=== PATIENT | male | born 1970 | race Caucasian/White ===

== ENCOUNTER 2023-11-27 10:58 | Emergency (ER) | payer MEDICARE, SELFPAY ==
[2023-11-27] VITALS (29 sets, daily range): BP systolic 122–177; BP diastolic 58–81; PULSE 65–75; RESP 14–22; TEMP 36.8; O2SAT 96–99
--- NOTE | ~2023-11-27 | XR_ITS ---
EXAMINATION: XR chest 2V DATE: 11/27/2023 11:29 INDICATION: Weakness. End-stage renal disease. TECHNIQUE: frontal and lateral views of the chest were obtained. COMPARISON: None FINDINGS: Pulmonary vascular congestion without courtney pulmonary edema. No other airspace opacities, pleural eff usion or pneumothorax. The cardiomediastinal silhouette is within normal limits for AP technique. The re are bridging osteophytes at multiple levels consistent with diffuse idiopathic skeletal hyperostos is (DISH). IMPRESSION: 1. Pulmonary vascular congestion but without courtney pulmonary edema or other acute cardiopulmonary dis ease. Reviewed, dictated and finalized at location A. IMPRESSION: 1. Pulmonary vascular congestion but without courtney pulmonary edema or other acu te cardiopulmonary disease.
--- NOTE | ~2023-11-27 | CT_ITS ---
Non-contrast Head CT History: Dizziness, near syncope Technique: Axial non-contrast imaging of the brain was performed. Dose reduction technique was used on this scan by utilizing automated exposure control and iterative reconstruction technique. The dose -length product (DLP) was 756.67 mGy-cm. Findings: There is no evidence of intracranial hemorrhage, mass lesion, or acute infarct. Brain par enchyma appears normal. The ventricles and subarachnoid spaces are normal in size. The calvarium ap pears normal. The visualized paranasal sinuses and mastoid air cells are clear. Impression: No significant abnormality seen. Reviewed, dictated and finalized at location . Impression: No significant abnormality seen.
--- NOTE | 2023-11-27 11:03 | ECG_ITS ---
Test Date: 2023-11-27 11:05:29 Measurements Intervals [place] Rate: 65 P: 34 FL: 191 QRS: -27 QRSD: 105 T: 3 QT: 477 QTc: 498 Interpretive Statements SINUS RHYTHM BORDERLINE LEFT AXIS DEVIATION [QRS AXIS < -20] NONSPECIFIC T-WAVE ABNORMALITY PROLONGED QT INTERVAL No previous ECG available for comparison Electronically Signed On 11-28-2023 15:50:00 CDT by Angel Brown M.D.
[2023-11-27 11:32] LABS: Basophils Absolute Auto 0.1 K/mm3 (0.0-0.1); Basophils Percent Auto 0.7 % (0.2-1.2); Eosinophils Absolute Auto 0.2 K/mm3 (0-0.3); Eosinophils Percent Auto 2.2 % (0-4.4); Hematocrit 33.6 % (42.0-52.0); Immature Granulocyte Absolute 0.04 K/mm3 (0.00-0.031); Immature Granulocyte Percent A 0.6 % (0-0.5); Lymphocytes Absolute Auto 1.72 K/mm3 (0.9-3.2); Mean Corpuscular HGB Conc 32.7 g/dl (32-36); Mean Corpuscular Volume 100.9 fl (80-100); Mean Platelet Volume 9.7 fl (7.4-10.4); Monocytes Absolute Auto 0.4 K/mm3 (0.1-0.6); Monocytes Percent Auto 6.1 % (2.6-8.5); Neutrophils Absolute Auto 4.8 K/mm3 (1.3-6.7); Neutrophils Percent Auto 66.4 % (45.5-73.1); Platelet Count Result 199 k/mm3 (150-375); Red Blood Count 3.33 M/mm3 (4.6-6.20); White Blood Count 7.2 K/mm3 (4.5-10.0)
--- NOTE | 2023-11-27 11:35 | ED.WEAKNESS ---
HPI - Weakness General Chief complaint: Weakness Stated complaint: weakness Time Seen by Provider: 11/27/23 11:13 Source: patient Mode of arrival: EMS Limitations: no limitations History of Present Illness HPI Narrative: Patient is a 52-year-old male who presents to the ED via EMS with report of weakness. Patient has a history of end-stage renal disease on hemodialysis Tuesdays, , Saturdays. He has not missed any recent appointments. His chief revenue officer is Dr. Ng. He reports today he was on his way to an eye doctor appointment when he began feeling dizzy/lightheaded. He then states symptoms became worse when he stepped out of the car and he felt near syncopal at that time. He then sat back down in the car. He did not fully lose consciousness. Reported having mild difficulty breathing at that time. He was then brought here for further evaluation. Patient does reported frequent history of positional lightheadedness. He states he often becomes lightheaded he tries to stand up. He reports he has been wheelchair-bound for the last 2 years due to this. He also notes his chief revenue officer advised him to double his carvedilol dose on non-dialysis days and he has done this over the last 2 days. Patient states he feels generally weak currently. Denies focal weakness or numbness, chest pain, shortness of breath currently, nausea, vomiting, abdominal pain, vision changes, headache , recent cough or cold symptoms, lower extremity pain. Related Data Allergies Allergy/AdvReac Type Severity Reaction Status Date / Time amoxicillin Allergy Unknown Verified 11/27/23 11:13 Review of Systems Review of Systems: CONSTITUTIONAL: Denies fever, chills, or sweats. CARDIOVASCULAR: Denies chest pain. RESPIRATORY: See HPI. GASTROINTESTINAL: Denies abdominal pain, nausea, vomiting NEUROLOGIC: See HPI. All systems reviewed & are unremarkable except as noted in HPI and below Exam Narrative: GENERAL: chronically ill-appearing, appears older than stated age, obese with BMI of 31.6, non-toxic, in no acute distress. HEAD: Normocephalic, atraumatic. EYES: PERRL/EOMI, conjunctiva clear. ENT: Diffuse dental decay. RESPIRATORY: Airway patent, respirations nonlabored. Clear to auscultation bilaterally, no rales, rhonchi, wheezing. No significant focal lung sounds. CARDIOVASCULAR: Regular rate and rhythm without murmurs, rubs, or gallops. MUSCULOSKELETAL: Moves all extremities. No gross deformities. No lower extremity edema. SKIN: Warm, dry, normal color. NEURO: A&O X3. Speech clear. Cranial nerves II-XII grossly intact. Steady gait. No ataxic movements. No focal deficits. PSYCHIATRIC: Appropriate mood and affect. Normal interaction. Course Vital Signs Vital signs: Vital Signs Temperature 98.2 F 11/27/23 10:51 Pulse Rate 68 11/27/23 10:51 Respiratory Rate 15 11/27/23 10:51 Blood Pressure 147/72 H 11/27/23 10:51 Pulse Oximetry 97 11/27/23 10:51 Oxygen Delivery Room Air 11/27/23 10:51 Temperature 98.2 F 11/27/23 10:51 Pulse Rate 73 11/27/23 13:46 Respiratory Rate 20 11/27/23 13:46 Blood Pressure 148/70 H 11/27/23 13:46 Pulse Oximetry 97 11/27/23 13:46 Oxygen Delivery Room Air 11/27/23 10:51 MDM - Weakness MDM Narrative Medical decision making narrative: patient presented to ED with positional lightheadedness, near syncopal episode. Patient reports history of similar episodes over the last several years. Also reports was advised this week to double his carvedilol dose on non dialysis days. Could be causing orthostatic hypotension. Patient's vital signs are stable upon arrival. He is in no acute distress. He is neurologically intact. No focal deficits are appreciated on exam. Orthostatic vital signs were evaluated and very minimal drop in systolic blood pressure. Did not drop greater than 10 units. Patient did not report feeling lightheaded during testing. Given small amount of flui
[2023-11-27 11:46] LABS: Alanine Aminotransferase 18 U/L (6-50); Albumin Level 4.1 g/dL (3.5-5.1); Alkaline Phosphatase 62 U/L (38-126); Anion Gap 9 mmol/L (4-12); Aspartate Amino Transferase 22 U/L (17-59); Bilirubin,Total 0.7 mg/dL (0.2-1.3); Blood Urea Nitrogen 38 mg/dL (9-20); Calcium 9.4 mg/dL (8.4-10.2); Carbon Dioxide 31 mmol/L (22-30); Chloride 100 mmol/L (98-107); Estimated CRCL calculation 28 ml/min; Estimated Glomerular Filt Rate 16; Glucose 206 mg/dL (65-110); Potassium 3.4 mmol/L (3.4-5.0); Sodium 140 mmol/L (137-145)
[2023-11-27 12:16] LABS: Appearance Urine Clear (Clear); Bacteria Urine None Seen /hpf; Bilirubin Urine Negative (Negative); Blood Urine Negative (Negative); Color Urine Yellow (Yellow); Glucose Urine UA 2+ mg/dL (Negative); Ketones Urine Trace mg/dL (Negative); Leukocyte Esterase Ur Negative LEU/UL (Negative); Need Manual Microscopic Reviewed; Nitrate Urine Negative (Negative); Protein Urine 4+ mg/dL (Negative); RBC Urine 0-2 /hpf (0-2); Specific Grav Ur 1.019 (1.001-1.035); Squamous Epithelial Cell Urine None Seen /hpf (Few); WBC Urine 0-5 /hpf (0-3); pH Urine 7.5 (5.0-9.0)
[2023-11-27 12:25] LABS: Add Urine Microscopic? YES
[2023-11-27] MEDS: SODIUM CHLORIDE 0.9% IV 500 ML 999 ML IV CONT (12:58)
[2023-11-27 13:44] LABS: Influenza A QL RT-PCR Negative (Negative); Influenza B QL RT-PCR Negative (Negative); RSV RNA, RT-PCR Negative (Negative); SARS-CoV-2 RNA PCR Negative (Negative)
[2023-11-27 14:49] LABS: Magnesium 1.9 mg/dL (1.6-2.3)
[2023-11-27 15:11] LABS: NT Pro B Type Natriuretic Pept 4120 pg/mL (19.9-100)
== END 2023-11-27 18:09 | disposition home or self-care (01) ==
PROVIDERS: Emergency Medicine; Emergency Provider Physician Assistant
DX: R42 Dizziness and giddiness (principal); N18.6 End stage renal disease; Z99.2 Dependence on renal dialysis; R06.02 Shortness of breath; Z20.822 Contact with and (suspected) exposure to COVID-19; R94.31 Abnormal electrocardiogram [ECG] [EKG]; Z99.3 Dependence on wheelchair; Z79.899 Other long term (current) drug therapy; Z79.01 Long term (current) use of anticoagulants; R09.89 Other specified symptoms and signs involving the circulatory and respiratory systems
CPT/HCPCS: 36415; 70450; 71046; 80053; 81001; 83735; 83880; 85025; 87637; 93005; 96360; 99284; J7040

== ENCOUNTER 2024-02-24 12:08 | Emergency (ER) | payer MEDICARE, MEDICAID, SELFPAY ==
[2024-02-24] VITALS (25 sets, daily range): BP systolic 88–142; BP diastolic 51–76; PULSE 64–75; RESP 12–25; TEMP 35.3–36.9; O2SAT 94–99
--- NOTE | ~2024-02-24 | XR_ITS ---
EXAMINATION: XR chest 1V portable DATE: 02/24/2024 13:03 INDICATION: Shortness of breath. TECHNIQUE: A single frontal view of the chest was obtained. COMPARISON: Chest 2 views 11/27/2023 FINDINGS: There is no pneumonia, pleural effusion, or pneumothorax. The heart size is normal. IMPRESSION: 1. No acute cardiopulmonary disease. Reviewed, dictated and finalized at location A.
--- NOTE | 2024-02-24 12:35 | ED.SOB ---
HPI - SOB/Dyspnea General Chief Complaint: Shortness of Breath/Dyspnea Stated Complaint: dialysis Time Seen by Provider: 02/24/24 12:15 Source: patient Mode of arrival: ambulatory Limitations: no limitations History of Present Illness HPI Narrative: 53-year-old male history of ex smoking, chronic bronchitis, hypertension, diabetes mellitus, atrial fibrillation on Xarelto,end-stage renal disease on hemodialysis got an extra dose of dialysis with removal of 4.5 L at [facility] in [place]. After the dialysis the patient felt -- lightheaded and dizzy -- blurred vision -- shortness of breath -- blood pressure was noted to be 71/50. No focal neuro deficit. No chest pain or palpitation . No nausea/vomiting /abdominal pain /diarrhea. MD elicited complaint: shortness of breath Pertinent past history: COPD Onset (ago): hour(s) ( Started 1 hour ago) Timing: constant Severity: severe Exacerbating factors: nothing Relieving factors: nothing Known history of: COPD and diabetes Associated symptoms: dizziness and lightheadedness Treatment prior to arrival: none Related Data Allergies Allergy/AdvReac Type Severity Reaction Status Date / Time amoxicillin Allergy Unknown Verified 11/27/23 11:13 Review of Systems Review of Systems: All systems reviewed & are unremarkable except as noted in HPI and below Constitutional: Constitutional: Reports as per HPI and Reports no additional constitutional complaints Eyes: Eyes: Reports as per HPI Comments: blurred vision ENT: Reports system reviewed and no additional complaints, except as documented and Reports as per HPI Cardiovascular: Cardiovascular: Reports as per HPI and Reports no additional cardiovascular complaints Respiratory: Respiratory: Reports as per HPI, Reports no additional respiratory complaints and Reports dyspnea Gastrointestinal: Gastrointestinal: Reports as per HPI and Reports no additional gastrointestinal complaints Genitourinary: Genitourinary: Reports no additional male genitourinary complaints and Reports as per HPI Musculoskeletal: Musculoskeletal: Reports no additional musculoskeletal complaints and Reports as per HPI Integumentary/Breasts: Skin/Breast: Reports system reviewed and no additional complaints, except as docu and Reports as per HPI Neurologic: Reports system reviewed and no additional complaints, except as documented, Reports as per HPI and Reports dizziness Psychiatric: Psychiatric: Reports no additional psychiatric complaints and Reports as per HPI Endocrine: Endocrine: Reports no additional endocrine complaints and Reports as per HPI Hematologic/Lymphatic: Hematologic/Lymphatic: Reports no additional hematologic/lymphatic complaints and Reports as per HPI Allergic/Immunologic: Allergic/Immunologic: Reports no additional allergic/immunologic complaints and Reports as per HPI [facility] Past Medical History Medical History (Updated 02/24/24 @ 16:15 by Germain Mcfadden MD) Atrial fibrillation AV fistula Diabetes mellitus ESRD (end stage renal disease) Hypertension Social History Social History (Updated 02/24/24 @ 12:49 by Germain Mcfadden MD) Social History: ex-smoker Exam Narrative: blood pressure 71/50 Const: General: ill appearing Orientation/consciousness: patient oriented x3 HENMT: Head: normal to inspection Ears: external ears normal Face/Nose/Sinus: Normal external nose present Face and sinus: normal facial exam Mouth: Yes Normal oral and palatal mucosa present Throat: posterior oropharynx normal Eyes: Conjunctivae: conjunctivae normal Pupils: Equal, round and reactive pupils present EOM: EOMs intact bilaterally Direct Ophthalmoscopy: no photophobia Neck: Neck: normal visual inspection, no lymphadenopathy and no meningeal signs Chest: Chest palpation & inspection: normal inspection of the chest Resp: Effort & Inspection: normal respiratory effort and labored Auscultation: clear
--- NOTE | 2024-02-24 12:43 | ECG_ITS ---
Test Date: 2024-02-24 12:53:57 Measurements Intervals [place] Rate: 64 P: 65 [place]: 196 QRS: 52 QRSD: 106 T: 58 QT: 453 QTc: 468 Interpretive Statements SINUS RHYTHM NORMAL ECG Compared to ECG 11/27/2023 11:05:29 PROLONGED QT INTERVAL RESOLVED Electronically Signed On 02-24-2024 12:56:35 CDT by Bethel Parker D.O.
[2024-02-24] MEDS: SODIUM CHLORIDE 0.9% IV 500 ML 999 ML IV CONT (12:55)
[2024-02-24 13:05] LABS: Basophils Absolute Auto 0.08 K/mm3 (0.00-0.10); Eosinophils Absolute Auto 0.19 K/mm3 (0.02-0.50); Eosinophils Percent Auto 2.4 % (1.0-6.0); Hematocrit 37.8 % (40.0-54.0); Hemoglobin 12.4 g/dL (14.0-18.0); Immature Granulocyte Absolute 0.12 K/mm3 (0.00-0.00); Immature Granulocyte Percent A 1.5 % (0.0-0.0); Lymphocytes Absolute Auto 1.28 K/mm3 (1.10-4.50); Lymphocytes Percent Auto 16.1 % (18.0-42.0); Mean Corpuscular HGB Conc 32.8 g/dL (32-36); Mean Corpuscular Hemoglobin 33.1 pg (27.0-31.0); Mean Corpuscular Volume 100.8 fL (78.0-102.0); Monocytes Percent Auto 6.3 % (2.0-11.0); Neutrophils Percent Auto 72.7 % (50.0-70.0); Platelet Count Result 183 K/mm3 (150-420); Red Blood Count 3.75 M/mm3 (4.70-6.10); Red Cell Distribution Width 12.9 % (11.6-14.4)
[2024-02-24 13:27] LABS: Lactic Acid Reflex 1.8 mmol/L (0.4-2.0)
[2024-02-24 13:31] LABS: Alanine Aminotransferase 12 U/L (16-63); Albumin Level 4.1 g/dL (3.4-5.0); Alkaline Phosphatase 58 U/L (46-116); Anion Gap 10 mmol/L (4-12); Aspartate Amino Transferase 15 U/L (15-37); Bilirubin,Total 0.5 mg/dL (0.00-1.00); Blood Urea Nitrogen 55 mg/dL (7-18); Calcium 10.1 mg/dL (8.5-10.1); Carbon Dioxide 30 mmol/L (21-32); Chloride 95 mmol/L (98-108); Estimated CRCL calculation 16 ml/min; Estimated Glomerular Filt Rate 8; Glucose 303 mg/dL (70-99); Lipase 118 U/L (16-77); NT Pro B Type Natriuretic Pept 1994 pg/mL (0-125); Osmolality Calculated 306 mOsm/kg (285-295); Potassium 4.5 mmol/L (3.5-5.1); Sodium 135 mmol/L (136-145); Total Protein 9.1 g/dL (6.4-8.2)
[2024-02-24 13:32] LABS: Thyroid Stimulating Hormone 2.12 uIU/mL (0.36-3.74); Troponin I 8.7 ng/L (0.00-60.4)
[2024-02-24 14:31] LABS: Add Urine Microscopic? YES; Appearance Urine Clear (Clear); Bilirubin Urine Negative (Negative); Blood Urine Negative (Negative); Color Urine Yellow (Yellow); Glucose Urine UA 2+ (Negative); Ketones Urine Negative (Negative); Leukocyte Esterase Ur Negative LEU/UL (Negative); Nitrate Urine Negative (Negative); Protein Urine 3+ (Negative); Specific Grav Ur 1.025 (1.010-1.020); Urobilinogen Urine Negative mg/dL (0.2-1.0)
[2024-02-24 14:32] LABS: Bacteria Urine 1+ /hpf; RBC Urine None seen /hpf (0-2); Squamous Epithelial Cell Urine Few /hpf (Few); WBC Urine None seen /hpf (0-3)
--- NOTE | 2024-02-24 15:30 | PC.NURSE ---
pt watching tv, food tray ordered. awaiting arrival. pt denies any needs at this time. call callahan in reach
--- NOTE | 2024-02-24 16:17 | PC.NURSE ---
pt requested to call [facility] for transport home, pt has no other transportation. awaiting arrival.
== END 2024-02-24 16:42 | disposition home or self-care (01) ==
PROVIDERS: Emergency Provider Internal Medicine Critical Care Medicine; PCP Family Medicine
DX: I12.0 Hypertensive chronic kidney disease with stage 5 chronic kidney disease or end stage renal disease (principal); N18.6 End stage renal disease; E11.22 Type 2 diabetes mellitus with diabetic chronic kidney disease; I95.3 Hypotension of hemodialysis; Z99.2 Dependence on renal dialysis; I48.91 Unspecified atrial fibrillation; Z87.891 Personal history of nicotine dependence
CPT/HCPCS: 36415; 71045; 80053; 81001; 83605; 83690; 83880; 84443; 84484; 85025; 93005; 99284; J7040

== ENCOUNTER 2024-06-15 22:05 | Emergency (ER) | payer MEDICARE, MEDICAID, SELFPAY ==
--- NOTE | ~2024-06-15 | XR_ITS ---
Portable chest x-ray Comparison: 02/24/2024 Clinical History: Shortness of breath Findings: There is mild central venous congestive change, without focal consolidation or pleural eff usion. Cardiomediastinal silhouette is stable. Bones and soft tissues are unremarkable. Impression: Mild central pulmonary venous congestive change. Reviewed, dictated and finalized at [facility]. MAN Impression: Mild central pulmonary venous congestive change.
[2024-06-15 22:05] VITALS: BP 213/100; PULSE 88; RESP 20; TEMP 37; O2SAT 96
--- NOTE | 2024-06-15 22:21 | ECG_ITS ---
Test Date: 2024-06-15 22:46:11 Measurements Intervals [place] Rate: 79 P: 60 NE: 196 QRS: -47 QRSD: 103 T: 66 QT: 409 QTc: 471 Interpretive Statements SINUS RHYTHM POSSIBLE LEFT ATRIAL ENLARGEMENT [-0.1mV P-WAVE IN V1/V2] Compared to ECG 02/24/2024 12:53:57 NO SIGNIFICANT CHANGES Electronically Signed On 06-17-2024 12:27:33 [employer] by Scot Sahni M.D.
--- NOTE | 2024-06-15 22:24 | ED.GENADULT ---
HPI - General Adult General Chief complaint: Shortness of Breath/Dyspnea Stated complaint: high bp/headache Time Seen by Provider: 06/15/24 22:21 Source: patient Mode of arrival: EMS Limitations: no limitations History of Present Illness HPI narrative: Patient is a 53-year-old male end-stage renal disease / hemodialysis Thursday soon here for elevated blood pressure and headache and retention of fluid. He had dialysis 3 days ago and with the holiday this week, he will have dialysis tomorrow morning. Onset (ago): day(s) (1) Location: abdomen ( Swelling per patient) Radiation: non-radiation Severity: mild Severity scale (1-10): 3 Quality: other ( fullness) Pain Consistency: constant Relieving factors: other ( dialysis resolves fluid retention) Exacerbating factors: other ( missing hemodialysis this week due to the holiday) Associated symptoms: denies other symptoms Treatments prior to arrival: none Related Data Allergies Allergy/AdvReac Type Severity Reaction Status Date / Time amoxicillin Allergy Unknown Verified 11/27/23 11:13 Review of Systems Review of Systems: All systems reviewed & are unremarkable except as noted in HPI and below Constitutional: Constitutional: Reports no additional constitutional complaints Eyes: Eyes: Reports no additional eye complaints ENT: Reports system reviewed and no additional complaints, except as documented Cardiovascular: Cardiovascular: Reports no additional cardiovascular complaints Respiratory: Respiratory: Reports no additional respiratory complaints Gastrointestinal: Gastrointestinal: Reports no additional gastrointestinal complaints Genitourinary: Genitourinary: Reports no additional male genitourinary complaints Musculoskeletal: Musculoskeletal: Reports no additional musculoskeletal complaints Integumentary/Breasts: Skin/Breast: Reports system reviewed and no additional complaints, except as docu Neurologic: Reports system reviewed and no additional complaints, except as documented Psychiatric: Psychiatric: Reports no additional psychiatric complaints Endocrine: Endocrine: Reports no additional endocrine complaints Hematologic/Lymphatic: Hematologic/Lymphatic: Reports no additional hematologic/lymphatic complaints Allergic/Immunologic: Allergic/Immunologic: Reports no additional allergic/immunologic complaints [facility] Past Medical History Medical History AV fistula Atrial fibrillation ESRD (end stage renal disease) Diabetes mellitus Hypertension Social History Social History Social History: ex-smoker Exam Const: General: healthy appearing Nutritional Appearance: well nourished Orientation/consciousness: patient oriented x3 Limitations: no limitations HENMT: Head: normal to inspection Ears: external ears normal Face/Nose/Sinus: Normal external nose present Eyes: Conjunctivae: conjunctivae normal Pupils: Equal, round and reactive pupils present EOM: EOMs intact bilaterally Neck: Neck: normal visual inspection Chest: Chest palpation & inspection: normal inspection of the chest Resp: Effort & Inspection: normal respiratory effort and not labored Auscultation: clear to auscultation bilaterally and no crackles Cardio: Rate: regular rate Rhythm: regular rhythm Heart sounds: no murmurs GI: Inspection: non-distended GI Palp: Yes Soft to palpation and No Tenderness to palpation present (GI) Auscultation: normal bowel sounds : General: Yes bladder normal to palpation Back/Spine/Pelvis: Back: no CVA tenderness Skin: General skin exam: normal color Rashes: no rashes Wounds: no wounds Neuro: General: patient oriented x3 Cranial nerves: Yes Nystagmus not present Speech: normal speech Gait exam (Neuro): Normal gait present Extrem: General: normal to inspection Psych: Mental Status: mental status grossly normal Affect: normal affect Attitude: cooperative Medical Decision Making [facility] Narrative Medical decision making narrative: patient is a 53-year-old male with hemodialysis here with some swelling and headache with elevated blood pressure. We will do a nephrology workup at this time. Patient's blood pressure came down on its own without medication. Headache was still present but not significant. I discussed the case with the director communications at [facility] and they said go ahead and just let him go home and get a.m. planned dialysis. His labs were stable and vitals were stable. He is okay and stable to go for morning dialysis and not emergent dialysis. Lab Data Lab results reviewed: Yes I reviewed the patient's lab results. 06/15/24 22:27 06/15/24 22:27 Labs: Lab Results 06/15/24 Range/Units 22:27 WBC 6.7 (4.8-10.8) K/mm3 RBC 3.17 L (4.70-6.10) M/mm3 Hgb 10.3 L (14.0-18.0) g/dL Hct 32.1 L (40.0-54.0) % MCV 101.3 (78.0-102.0) fL MCH 32.5 H (27.0-31.0) pg MCHC 32.1 (32-36) g/dL RDW 13.2 (11.6-14.4) % Plt Count 184 (150-420) K/mm3 MPV 9.7 (8.7-11.0) fl Immature Gran % (Auto) 0.9 H (0.0-0.0) % Neut % (Auto) 63.9 (50.0-70.0) % Lymph % (Auto) 26.1 (18.0-42.0) % Grady % (Auto) 5.4 (2.0-11.0) % Eos % (Auto) 2.7 (1.0-6.0) % Baso % (Auto) 1.0 (0.0-1.0) % Lymph # (Auto) 1.74 (1.10-4.50) K/mm3 Grady # (Auto) 0.36 (0.10-0.90) K/mm3 Eos # (Auto) 0.18 (0.02-0.50) K/mm3 Baso # (Auto) 0.07 (0.00-0.10) K/mm3 Abs Immat Gran (auto) 0.06 H (0.00-0.00) K/mm3 Absolute Neuts (auto) 4.26 (1.70-7.20) K/mm3 Absolute Nucleated RBC 0.00 (0.00-0.00) K/mm3 Nucleated RBC % 0.0 (0-0.0) % Sodium 140 (136-145) mmol/L Potassium 4.0 (3.5-5.1) mmol/L Chloride 103 (98-108) mmol/L Carbon Dioxide 29 (21-32) mmol/L Anion Gap 8 (4-12) mmol/L BUN 42 H (7-18) mg/dL Creatinine 5.19 H* (0.70-1.30) mg/dL Estim Creat Clear Calc Not Reportable Estimated GFR 12 L (59 - ) Glucose 147 H (70-99) mg/dL Calculated Osmolality 303 H (285-295) mOsm/kg Lactic Acid 0.8 (0.4-2.0) mmol/L Calcium 8.9 (8.5-10.1) mg/dL Phosphorus 5.1 H (2.6-4.7) mg/dL Magnesium 1.6 L (1.8-2.4) mg/dL Total Bilirubin 0.3 (0.00-1.00) mg/dL AST < 10 L (15-37) U/L ALT 13 L (16-63) U/L Alkaline Phosphatase 69 (46-116) U/L Troponin I 22.3 (0.00-60.4) ng/L Total Protein 7.3 (6.4-8.2) g/dL Albumin 3.3 L (3.4-5.0) g/dL Imaging Data Attestation: I personally reviewed and interpreted this imaging study as follows: Radiologist's impression: Chest x-ray shows some pulmonary edema mildly Discharge Plan Discharge Clinical Impression: End-stage renal disease (ESRD), Fluid retention Patient Disposition: Home, Self-Care Condition: Stable Instructions: End Stage Kidney Disease (ED) Additional Instructions: please follow-up with the primary doctor in the next week. Follow-up with nephrology as planned. Make sure to get dialysis done 1st thing in the morning. Patient Language: [place] Follow-up/Referrals: Hans,Mery Tsai MD [Primary Care Provider] - Time of Disposition: 01:21
[2024-06-15 22:40] LABS: Basophils Absolute Auto 0.07 K/mm3 (0.00-0.10); Eosinophils Absolute Auto 0.18 K/mm3 (0.02-0.50); Eosinophils Percent Auto 2.7 % (1.0-6.0); Hematocrit 32.1 % (40.0-54.0); Hemoglobin 10.3 g/dL (14.0-18.0); Immature Granulocyte Absolute 0.06 K/mm3 (0.00-0.00); Immature Granulocyte Percent A 0.9 % (0.0-0.0); Lymphocytes Absolute Auto 1.74 K/mm3 (1.10-4.50); Lymphocytes Percent Auto 26.1 % (18.0-42.0); Mean Corpuscular HGB Conc 32.1 g/dL (32-36); Mean Corpuscular Hemoglobin 32.5 pg (27.0-31.0); Mean Corpuscular Volume 101.3 fL (78.0-102.0); Mean Platelet Volume 9.7 fl (8.7-11.0); Monocytes Absolute Auto 0.36 K/mm3 (0.10-0.90); Monocytes Percent Auto 5.4 % (2.0-11.0); Neutrophils Absolute Auto 4.26 K/mm3 (1.70-7.20); Neutrophils Percent Auto 63.9 % (50.0-70.0); Platelet Count Result 184 K/mm3 (150-420); Red Blood Count 3.17 M/mm3 (4.70-6.10); Red Cell Distribution Width 13.2 % (11.6-14.4); White Blood Count 6.7 K/mm3 (4.8-10.8)
[2024-06-15 23:00] LABS: Lactic Acid Reflex 0.8 mmol/L (0.4-2.0)
[2024-06-15 23:02] LABS: Alanine Aminotransferase 13 U/L (16-63); Albumin Level 3.3 g/dL (3.4-5.0); Alkaline Phosphatase 69 U/L (46-116); Anion Gap 8 mmol/L (4-12); Aspartate Amino Transferase < 10 U/L (15-37); Bilirubin,Total 0.3 mg/dL (0.00-1.00); Blood Urea Nitrogen 42 mg/dL (7-18); Calcium 8.9 mg/dL (8.5-10.1); Carbon Dioxide 29 mmol/L (21-32); Chloride 103 mmol/L (98-108); Estimated Glomerular Filt Rate 12; Glucose 147 mg/dL (70-99); Osmolality Calculated 303 mOsm/kg (285-295); Phosphorus 5.1 mg/dL (2.6-4.7); Sodium 140 mmol/L (136-145); Total Protein 7.3 g/dL (6.4-8.2)
[2024-06-15 23:13] LABS: Magnesium 1.6 mg/dL (1.8-2.4); Troponin I 22.3 ng/L (0.00-60.4)
[2024-06-16] VITALS: PULSE 85
[2024-06-16] MEDS: HYDROcodone/acetaminophen (*CRX) 5-325 MG TABLET 1 TAB PO (01:41)
[2024-06-16 02:07] VITALS: BP 144/76; PULSE 74; RESP 18; O2SAT 96
--- OUTSIDE RECORDS SUMMARY | 2024-06-22 17:58 | XMS_ITS ---
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 If you have left the hospital and have any questions, please contact your primary care physician. Reason For Referral No Data Found Plan of Treatment No Data Found Encounters Encounter Diagnosis Start Date Code Code Sys tem Unsteadiness on feet 02/10/2024 SNOMED- CT Personal Care Team Section Performer Name Performer Role Active Date Inactive Da te
--- OUTSIDE RECORDS SUMMARY | 2024-06-22 17:59 | XMS_ITS | Encounter Summary ---
Author Organization [facility] Address [address] [place] [address]. [place] [address] [place] [address] Care Team Providers Care Big Data Solutions Architect Name Role Phone Mery Maxwell MD Primary Care Provider [phone] Encounter Details Date Type Department Care Team (Late st Contact Info) Description 04/04/2024 Orders Only [facility] [address] [place], [place] [id number] Mery Maxwell MD [address] [place] [phone] Social History Tobacco Use Types Packs/Day Years Used Date Smoking Tobacco: Former Cigarettes 1 15 Smokeless Tobacco: Never Alcohol Use Standard Drinks/Week Comments Not Currently 0 (1 standard drink = 0.6 oz pur e alcohol) [facility] Utilities Answer Date Recorded In the past 12 months has [facility] EDMdesigner, gas, oil, or water [employer] threatened to shut off services in your home? No 03/28/2024 Humiliation, Afraid, Rape, and Kick questionnair e Answer Date Recorded Within the last year, have y ou been afraid of your partner or ex-partner? No 03/28/2024 Within the last year, have y ou been humiliated or emotionally abused in other ways by your partner or ex-partner? No Within the last year, have y ou been kicked, hit, slapped, or otherwise physically hurt by your partner or ex-partner? No 03/28/2024 Within the last year, have y ou been raped or forced to have any kind of sexual activity by your partner or ex-partner? No 03/28/2024 Overall Financial Resource Strain (CARDIA) Answe r Date Recorded How hard is it for you to pa y for the very basics like food, housing, medical care, and heating? Not very hard 03/28/2024 Hunger Vital Sign Answer Date Recorded Within the past 12 months, y ou worried that your food would run out before you got the money to buy more. Never true 03/28/20 Within the past 12 months, t he food you bought just didn't last and you didn't have money to get more. Never true 03/28/2024 PRAPARE - Transportation Answer Date Re corded In the past 12 months, has l ack of transportation kept you from medical appointments or from getting medications? No 03/15 In the past 12 months, has l ack of transportation kept you from meetings, work, or from getting things needed for daily living? No 03/28/2024 Housing Stability Vital Sign Answer Kelvin e Recorded In the last 12 months, was t here a time when you were not able to pay the mortgage or rent on time? Patient declined 09/01/19 24 In the last 12 months, how many places have you lived? 1 09/01/2023 In the last 12 months, was t here a time when you did not have a steady place to sleep or slept in a assisted (including now)? Patient declined 09/01/2023 Housing Stability Vital Sign Answer Kelvin e Recorded In the last 12 months, was t here a time when you were not able to pay the mortgage or rent on time? No 03/28/2024 In the past 12 months, how m any times have you moved where you were living? 2 03/28/2024 At any time in the past 12 m [facility], were you homeless or living in a assisted (including now)? No 03/28/2024 Sex and Gender Information Value Date Recorded Sex Assigned at Not on file Legal Sex Male 6:24 PM CDT Gender Identity Not on file Sexual Orientation Not on file documented as of this encounter Functional Status * Are you deaf or do you have serious difficulty hearing Answer Date of Assessment Author Status No 03/28/2024 5:25 PM CDT Christina Mercado Nu rsrohit Casserole Preparer II Active * Are you blind or do you have serious difficulty seeing, even when wearing glasses? Answer Date of Assessment Author Status No 03/28/2024 5:25 PM CDT Christina Mercado Nu rse Casserole Preparer II Active * Do you have serious difficulty walking or climbing stairs? Answer Date of Assessment Author Status Yes 03/28/2024 5:25 PM CDT Christina MercadoSachi rse Casserole Preparer II Active * Do you have difficulty dressing or bathing? Answer Date of Assessment Author Status Yes 03/28/2024 5:25 PM CDT Christina Mercado Sachi rse Casserole Preparer II Active * Because of a physical, mental, or emotional condition, do you have difficulty doing errands alone such as visiting a doctor's office or shopping? Answer Date of Assessment Author Status Yes 03/28/2024 5:25 PM CDT Christina Mercado Nu rse Casserole Preparer II Active documented as of this encounter Mental Status * Because of a physical, mental, or emotional condition, do you have serious difficulty concentrating, remembering, or making decisions? Answer Entry Date Author Status No 03/28/2024 5:25 PM CDT Christina Mercado Sachi rse Casserole Preparer II Active documented in this encounter Plan of Treatment Upcoming Encounters Date Type Department Care Team (Late st Contact Info) Description 07/20/2024 10:30 AM ASSISTANT PROFESSOR OF SPANISH Office Visit [facility] [place] [phone] [place] [address] documented as of this encounter Goals Goal Patient Goal Type Associated Problems Recent Progress Patient-Stated? 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 RN documented as of this encounter Results * (ABNORMAL) IRON SATURATION PNL (FE/TIBC/SAT) (04/04/2024 11:30 AM CDT) [facility] IRON 85 65 - 175 MCG/DL 04/04/2024 12:50 PM CDT [facility] IRON BINDING CAPACITY 226(L) 250 - 450 MCG/DL 04/04/2024 12:50 PM CDT [facility] IRON SATURATION 38 % 12:50 PM CDT [facility] Comment:REFERENCE RANGE NOT ESTABLISHED 04/04/2024 11:3 0 AM CDT Mery Maxwell MD LABORATORY Final Resu lt Performing Organization Address City/[facility]/ZIP Co de Phone Number [facility] [address] [place] [address], * VITAMIN D, 25 OH (04/04/2024 11:30 AM CDT) VITAMIN D 25 HYDROXY TOTAL S/P/B 27.0 20.0 - 50.0 NG/ML 04/05/2024 12:22 PM CDT [facility] Comment: <10 ng/mL (Severe deficiency) 10 TO 19 ng/mL (Mild to Moderate deficiency) 20 TO 50 ng/mL (Optimum levels) 51 TO 80 ng/mL (Increased risk of hypercalciuria) >80 ng/mL (Toxicity possible) 04/04/2024 11:3 0 AM CDT us Mery Maxwell MD LABORATORY Final Resu lt Performing Organization Address [facility]/ZIP Co de Phone Number [facility] [address] [place] [address], [place] [phone] * (ABNORMAL) COMPREHENSIVE METABOLIC PANEL (04/04/2024 11:30 AM CDT) SODIUM S/P/B 138 136 - 145 MMOL/L 04/04/2024 12:52 PM CDT [facility] POTASSIUM S/P/B 4.1 3.5 - 5.1 MMOL/L 04/04/2024 12:52 PM CDT [facility] CHLORIDE S/P/B 97(L) 98 - 107 MMOL/L 04/04/2024 12:52 PM [facility] CO2 30.0 21.0 - 32.0 MMOL/L 04/04/2024 12:52 PM [facility] GLUCOSE 202(H) 70 - 99 MG/DL 04/04/2024 12:52 PM [facility] Comment: FASTING GLUCOSE 100 TO 125 MG/DL IS CONSISTENT WITH IMPAIRED FASTING GLUCOSE. FASTING GLUCOSE >125 MG/DL IS CONSISTENT WITH DIABETES. RANDOM GLUCOSE >200 MG/DL WITH HYPERGLYCEMIC SYMPTOMS IS CONSISTENT WITH DIABETES. PER ADA GUIDELINES BUN 63(H) 6 - 24 MG/DL 04/04/2024 12:52 PM T [facility] CREATININE S/P/B 7.62(H) 0.70 - 1.30 MG/DL 04/04/2024 12:52 PM [facility] CALCIUM S/P/B 10.1 8.4 - 10.5 MG/DL 04/04/2024 12:52 PM [facility] BILIRUBIN TOTAL S/P/B 0.6 0.2 - 1.0 MG/DL 04/04/2024 12:52 PM T [facility] Comment: THIS ASSAY IS NOT RECOMMENDED FOR PATIENTS UNDERGOING TREATMENT WITH ELTROMBOPAG DUE TO THE POTENTIAL FOR FALSELY ELEVATED RESULTS. ALKALINE PHOSPHATASE S/P/B 61 45 - 115 U/L 04/04/2024 12:52 PM [facility] AST 11(L) 15 - 37 U/L 04/04/2024 12:52 PM [facility] ALT 13(L) 16 - 63 U/L 04/04/2024 12:52 PM T [facility] TOTAL PROTEIN S/P/B 8.7(H) 6.4 - 8.2 G/DL 04/04/2024 12:52 PM T [facility] ALBUMIN S/P/B 3.8 3.4 - 5.0 G/DL 04/04/2024 12:52 PM [facility] ANION GAP 11.0 5.0 - 15.0 MMOL/L 04/04/2024 12:52 PM T [facility] OSMOLALITY (CALC) 310 MOSM/KG 10/21/2 024 12:52 PM CDT [facility] Comment:REFERENCE RANGE NOT ESTABLISHED GFR ESTIMATE 8(L) >89 ML/MIN/1. 73 M2 04/04/2024 12:52 PM CDT [facility] GFR NOTES GFR REFERENCE S: 04/04/2024 12:52 PM CDT [facility] Comment: THE ESTIMATED GFR IS CALCULATED USING THE 2020 CKD-EPI EQUATION. THE FOLLOWING CATEGORIES FOR GRADING RENAL FUNCTION ARE RECOMMENDED BY THE INTERNATIONAL SOCIETY OF NEPHROLOGY (KDIGO 2012 CLINICAL PRACTICE GUIDELINE). G1,NORMAL OR HIGH: >89 ml/min/1.73 m2 G2,MILDLY DECREASED: 60-89 ml/min/1.73 m2 G3A,MILDLY TO MODERATELY DECREASED: 45-59 ml/min/1.73 m2 G3B,MODERATELY TO SEVERELY DECREASED: 30-44 ml/min/1.73 m2 G4,SEVERELY DECREASED: 15-29 ml/min/1.73 m2 G5,KIDNEY FAILURE: <15 ml/min/1.73 m2 04/04/2024 11:3 0 AM CDT us Mery Maxwell MD LABORATORY Final Resu lt [facility] [address] [place] [address], * (ABNORMAL) CBC W/DIFF AUTOMATED (04/04/2024 11:30 AM CDT) WBC 7.76 4.00 - 10.80 x10'3/uL 04/04/2024 12:34 PM CDT [facility] RBC 3.61(L) 4.50 - 6.10 x10'6/uL 04/04/2024 12:34 PM CDT [facility] HGB 11.9(L) 13.0 - 18.0 G/DL 04/04/2024 12:34 PM CDT [facility] HCT 36.5(L) 37.0 - 52.0 % 04/04/2024 12:34 PM CDT [facility] MCV 101.1(H) 78.0 - 100.0 FL 04/04/2024 12:34 PM CDT [facility] MCH 33.0(H) 27.0 - 31.0 PG 04/04/2024 12:34 PM CDT [facility] MCHC 32.6(L) 33.0 - 36.0 G/DL 04/04/2024 12:34 PM CDT [facility] RDW 13.5 11.5 - 14.5 % 04/04/2024 12:34 PM CDT [facility] PLT 201 150 - 350 x10'3/uL 04/04/2024 12:34 PM CDT [facility] MPV 10.1 7.4 - 10.4 FL 04/04/2024 12:34 PM CDT [facility] CBC COMMENT NORMAL REFERENCE RANGE NOT ESTABLISHED FOR THE PROPORTIONAL LEUKOCYTE DIFFERENTIAL. 04/04/2024 12:34 PM CDT [facility] NEUTROPHILS % 70.3 % 04/04/2024 12:34 PM CDT [facility] LYMPHOCYTES % 21.0 % 04/04/2024 12:34 PM CDT [facility] MONOCYTES % 5.3 % 04/04/2024 12:34 PM CDT [facility] EOSINOPHILS % 2.3 % 04/04/2024 12:34 PM CDT [facility] BASOPHILS % 0.6 % 04/04/2024 12:34 PM CDT [facility] IMMATURE GRANS % 0.5 % 04/04/20 12:34 PM CDT [facility] NRBC % 0.0 % 04/04/2024 12:34 PM CDT [facility] ABS. NEUTROPHILS 5.45 1.60 - 8.30 x10'3/uL 04/04/2024 12:34 PM CDT [facility] ABS. LYMPHOCYTES 1.63 0.80 - 4.70 x10'3/uL 04/04/2024 12:34 PM CDT [facility] ABS. MONOCYTES 0.41 0.00 - 1.50 x10'3/uL 04/04/2024 12:34 PM CDT [facility] ABS. EOSINOPHILS 0.18 0.00 - 0.40 x10'3/uL 04/04/2024 12:34 PM CDT [facility] ABS. BASOPHILS 0.05 0.00 - 0.20 x10'3/uL 04/04/2024 12:34 PM CDT [facility] ABS. IMMATURE GRANULOCYTES 0.04(H) 0.00 - 0.03 x10'3/uL 04/04/2024 12:34 PM CDT [facility] ABS. NUCLEATED RBC'S 0.00 0.00 - 0.01 x10'3/uL 04/04/2024 12:34 PM CDT [facility] 04/04/2024 11:3 0 AM CDT us Mery Maxwell MD LABORATORY Final Resu lt [facility] [address] [place] [address], documented in this encounter Visit Diagnoses Diagnosis CKD (chronic kidney disease)- Primary Chronic kidney disease, unspecified DM (diabetes mellitus) ([facility]) Type II or unspecified type diabetes mellitus without mention of complication, not stated as uncontrolled CHF (congestive heart failure) ([facility]) Congestive heart failure, unspecified documented in this encounter Care Teams Big Data Solutions Architect Relationship Specialty Start Date End Date Mery Maxwell MD [address] [place] [phone] PCP - General FAMILY PRACTICE 08/19/23 documented as of this encounter
--- OUTSIDE RECORDS SUMMARY | 2024-06-22 17:59 | XMS_ITS | Encounter Summary ---
Author Organization [facility] Address [address] [place] [address]. [place] [address] [place] [address] Care Team Providers Care Site Inspector Name Role Phone Mery Maxwell MD Primary Care Provider [phone] Encounter Details Date Type Department Care Team (Late st Contact Info) Description 04/04/2024 12:14 PM CDT - 04/04/2024 11:59 PM T Hospital Encounter [facility] [address] [place] [address] [place] [address] Mery Maxwell MD [address] [place] [address] [phone] Discharge Disposition: Home or Self Care (Routine Discharge) Social History Tobacco Use Types Packs/Day Years Used Date Smoking Tobacco: Former Cigarettes 1 15 Smokeless Tobacco: Never Alcohol Use Standard Drinks/Week Comments Not Currently 0 (1 standard drink = 0.6 oz pur e alcohol) [facility] Utilities Answer Date Recorded In the past 12 months has [employer], oil, or water [employer] threatened to shut off services in your [...] or rent on time? Patient declined 09/01/19 In the last 12 months, how many places have you lived? 1 09/01/2023 In the last 12 months, was t here a time when you did not have a steady place to sleep or slept in a senior care (including now)? Patient declined 09/01/2023 Housing Stability [...] any time in the past 12 m [facility], were you homeless or living in a senior care (including now)? No 03/28/2024 Sex and Gender Information Value Date Recorded Sex Assigned at Not on file Legal Sex Male 6:24 PM CDT Gender Identity Not on file Sexual Orientation Not on file documented as of this encounter Functional Status * Are you deaf or do you have serious difficulty hearing Answer Date of Assessment Author Status No 03/28/2024 5:25 PM [facility] * Are you blind or do you have serious difficulty seeing, even when wearing glasses? Answer Date of Assessment Author Status No 03/28/2024 5:25 PM [facility] Active * Do you have serious difficulty walking or climbing stairs? Answer Date of Assessment Author Status Yes 03/28/2024 5:25 PM [facility] Active * Do you have difficulty dressing or bathing? Answer Date of Assessment Author Status Yes 03/28/2024 5:25 PM [facility] Active * Because of a physical, mental, or emotional condition, do you have difficulty doing errands alone such as visiting a doctor's office or shopping? Answer Date of Assessment Author Status Yes 03/28/2024 5:25 PM [facility] Active documented as of this encounter Mental Status * Because of a physical, mental, or emotional condition, do you have serious difficulty concentrating, remembering, or making decisions? Answer Entry Date Author Status No 03/28/2024 5:25 PM [facility] Active documented in this encounter Medications at Time of Discharge allopurinol (ZYLOPRIM) 100 MG tablet Take 1 tablet (100 mg total) by mouth 2 (two) times daily. 08/03/2023 amiodarone (PACERONE) 200 MG tablet Take 0.5 tablets (100 mg total) by mouth daily. 30 tablet 11 02/03/2024 atorvastatin (LIPITOR) 20 MG tablet Take 1 tablet (20 mg total) by mouth daily. 08/03/2023 B-D UF III MINI PEN NEEDLES 31G X 5 MM [facility] 03/02/2024 BD VEO INSULIN SYRINGE U/F 31G X 15/64 0.5 ML [facility] 11/17/2023 Continuous Glucose Transmitter (DEXCOM G6 TRANSMITTER) [facility] 03/08/2024 ELIQUIS 5 MG tablet Take 1 tablet (5 mg total) by mouth 2 (two) times daily. 08/03/2023 gabapentin (NEURONTIN) 100 MG capsule Take 1 capsule (100 mg total) by mouth 2 (two) times a day. 08/03/2023 insulin lispro, 1 Unit Dial, (HUMALOG) 100 UNIT/ML injection (PEN) Inject 10 Units into the skin 3 (three) times daily before meals. 12/17/2022 LANTUS SOLOSTAR 100 UNIT/ML injection (PEN) Inject 17 Units into the skin nightly at bedtime. 08/03/2023 pantoprazole EC (PROTONIX) 40 MG tablet Take 1 tablet (40 mg total) by mouth 2 (two) times a day. 03/16/2024 sevelamer carbonate (RENVELA) 800 MG tablet Take 1 tablet (800 mg total) by mouth 3 (three) times daily with meals. 03/16/2024 traMADol (ULTRAM) 50 MG tabletIndications :Acute Pain < 7 Day Supply Indications: Acute Pain < 7 Day Supply 1-2 every 6 hours as needed for pain 20 tablet 08/19/2023 TRUE METRIX BLOOD GLUCOSE TEST test strip use 1 strip to check glucose three times daily 02/01/2024 benzonatate (TESSALON) 200 MG capsule Take 1 capsule (200 mg total) by mouth 3 (three) times daily for 10 days. 20 capsule 03/31/2024 04/10/2024 doxycycline hyclate (VIBRA-TABS) 100 MG tablet Take 1 tablet (100 mg total) by mouth 2 (two) times daily for 5 days. 10 tablet 03/31/2024 04/05/2024 documented as of this encounter Plan of Treatment Upcoming Encounters Date Type Department Care Team (Late st Contact Info) Description 07/20/2024 10:30 AM [employer] Office Visit [facility] [place] [address] Martha Ramirez, [facility]-[address] [id number] documented as of this encounter Goals Goal Patient Goal Type Associated Problems Recent Progress Patient-Stated? 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, RN documented as of this encounter Procedures Procedure Name Priority Date/Time Associated Diagnosis Comments IRON SAT PANEL (IRON,IBC,%SAT) Routine 04/04/2024 11:30 AM CDT CKD (chronic kidney disease) DM (diabetes mellitus) ([facility] HHS/HCC) CHF (congestive heart failure) ([facility] HHS/HCC) COMPREHENSIVE METABOLIC PANEL Routine 04/04/2024 11:30 AM CDT CKD (chronic kidney disease) DM (diabetes mellitus) ([facility] HHS/HCC) CHF (congestive heart failure) ([facility] HHS/HCC) CBC W/DIFF AUTOMATED Routine 04/04/2024 11:30 AM CDT CKD (chronic kidney disease) DM (diabetes mellitus) ([facility] HHS/HCC) CHF (congestive heart failure) ([facility] HHS/HCC) VITAMIN D, 25 [place] Routine 04/04/2024 11:3 0 AM CDT CKD (chronic kidney disease) DM (diabetes mellitus) ([facility] HHS/HCC) CHF (congestive heart failure) ([facility] HHS/HCC) documented in this encounter Results * (ABNORMAL) CBC W/DIFF AUTOMATED (04/04/2024 11:30 AM CDT) WBC 7.76 4.00 - 10.80 x10'3/uL 04/04/2024 12:34 PM CDT [facility] RBC 3.61(L) 4.50 - 6.10 x10'6/uL 04/04/2024 12:34 PM CDT [facility] HGB 11.9(L) 13.0 - 18.0 G/DL 04/04/2024 12:34 PM CDT [facility] HCT 36.5(L) 37.0 - 52.0 % 04/04/2024 12:34 PM CDT [facility] MCV 101.1(H) 78.0 - 100.0 FL 04/04/2024 12:34 PM CDT [facility] MCH 33.0(H) 27.0 - 31.0 PG 04/04/2024 12:34 PM CDT [facility] MCHC 32.6(L) 33.0 - 36.0 G/DL 04/04/2024 12:34 PM CDT [facility] RDW 13.5 11.5 - 14.5 % 04/04/2024 12:34 PM CDT [facility] PLT 201 150 - 350 x10'3/uL 04/04/2024 12:34 PM CDT [facility] MPV 10.1 7.4 - 10.4 FL 04/04/2024 12:34 PM CDT [facility] CBC COMMENT NORMAL REFERENCE RANGE NOT ESTABLISHED FOR THE PROPORTIONAL LEUKOCYTE DIFFERENTIAL. 04/04/2024 12:34 PM CDT [facility] NEUTROPHILS % 70.3 % 04/04/2024 12:34 PM CDT [facility] LYMPHOCYTES % 21.0 % 04/04/2024 12:34 PM CDT [facility] MONOCYTES % 5.3 % 04/04/2024 12:34 PM CDT [facility] EOSINOPHILS % 2.3 % 04/04/2024 12:34 PM CDT [facility] BASOPHILS % 0.6 % 04/04/2024 12:34 PM CDT [facility] IMMATURE GRANS % 0.5 % 04/04/20 12:34 PM CDT [facility] NRBC % 0.0 % 04/04/2024 12:34 PM CDT [facility] ABS. NEUTROPHILS 5.45 1.60 - 8.30 x10'3/uL 04/04/2024 12:34 PM CDT [facility] ABS. LYMPHOCYTES 1.63 0.80 - 4.70 x10'3/uL 04/04/2024 12:34 PM CDT [facility] ABS. MONOCYTES 0.41 0.00 - 1.50 x10'3/uL 04/04/2024 12:34 PM CDT [facility] ABS. EOSINOPHILS 0.18 0.00 - 0.40 x10'3/uL 04/04/2024 12:34 PM CDT [facility] ABS. BASOPHILS 0.05 0.00 - 0.20 x10'3/uL 04/04/2024 12:34 PM CDT [facility] ABS. IMMATURE GRANULOCYTES 0.04(H) 0.00 - 0.03 x10'3/uL 04/04/2024 12:34 PM CDT [facility] ABS. NUCLEATED RBC'S 0.00 0.00 - 0.01 x10'3/uL 04/04/2024 12:34 PM CDT [facility] 04/04/2024 11:3 0 AM CDT us Mery Maxwell MD LABORATORY Final Resu lt [facility] [address] [place] [address], * (ABNORMAL) COMPREHENSIVE METABOLIC PANEL (04/04/2024 11:30 AM CDT) SODIUM S/P/B 138 136 - 145 MMOL/L 04/04/2024 12:52 PM CDT [facility] POTASSIUM S/P/B 4.1 3.5 - 5.1 MMOL/L 04/04/2024 12:52 PM CDT [facility] CHLORIDE S/P/B 97(L) 98 - 107 MMOL/L 04/04/2024 12:52 PM CDT [facility] CO2 30.0 21.0 - 32.0 MMOL/L 04/04/2024 12:52 PM CDT [facility] GLUCOSE 202(H) 70 - 99 MG/DL 04/04/2024 12:52 PM CDT [facility] Comment: FASTING GLUCOSE 100 TO 125 MG/DL IS CONSISTENT WITH IMPAIRED FASTING GLUCOSE. FASTING GLUCOSE >125 MG/DL IS CONSISTENT WITH DIABETES. RANDOM GLUCOSE >200 MG/DL WITH HYPERGLYCEMIC SYMPTOMS IS CONSISTENT WITH DIABETES. PER ADA GUIDELINES BUN 63(H) 6 - 24 MG/DL 04/04/2024 12:52 PM CDT [facility] CREATININE S/P/B 7.62(H) 0.70 - 1.30 MG/DL 04/04/2024 12:52 PM T [facility] CALCIUM S/P/B 10.1 8.4 - 10.5 MG/DL 04/04/2024 12:52 PM [facility] BILIRUBIN TOTAL S/P/B 0.6 0.2 - 1.0 MG/DL 04/04/2024 12:52 PM T [facility] Comment: THIS ASSAY IS NOT RECOMMENDED FOR PATIENTS UNDERGOING TREATMENT WITH ELTROMBOPAG DUE TO THE POTENTIAL FOR FALSELY ELEVATED RESULTS. ALKALINE PHOSPHATASE S/P/B 61 45 - 115 U/L 04/04/2024 12:52 PM T [facility] AST 11(L) 15 - 37 U/L 04/04/2024 12:52 PM [facility] ALT 13(L) 16 - 63 U/L 04/04/2024 12:52 PM [facility] TOTAL PROTEIN S/P/B 8.7(H) 6.4 - 8.2 G/DL 04/04/2024 12:52 PM [facility] ALBUMIN S/P/B 3.8 3.4 - 5.0 G/DL 04/04/2024 12:52 PM [facility] ANION GAP 11.0 5.0 - 15.0 MMOL/L 04/04/2024 12:52 PM [facility] OSMOLALITY (CALC) 310 MOSM/KG 024 12:52 PM [facility] Comment:REFERENCE RANGE NOT ESTABLISHED GFR ESTIMATE 8(L) >89 ML/MIN/1. 73 M2 04/04/2024 12:52 PM [facility] GFR NOTES GFR REFERENCE S: 04/04/2024 12:52 PM [facility] Comment: THE ESTIMATED GFR IS [...] LABORATORY Final Resu lt Performing Organization Address City/[facility]/ZIP Co de Phone Number [facility] [address] [place] [address], [place] [phone] * VITAMIN D, 25 [place] (04/04/2024 11:30 AM CDT) VITAMIN D 25 HYDROXY TOTAL S/P/B 27.0 20.0 - 50.0 NG/ML 04/05/2024 12:22 PM CDT [facility] Comment: <10 ng/mL (Severe deficiency) 10 TO 19 ng/mL (Mild to Moderate deficiency) 20 TO 50 ng/mL (Optimum levels) 51 TO 80 ng/mL (Increased risk of hypercalciuria) >80 ng/mL (Toxicity possible) 04/04/2024 11:3 0 AM CDT us Mery Maxwell MD LABORATORY Final Resu lt [facility] [address] [place] [address], [place] [phone] * (ABNORMAL) IRON SATURATION PNL (FE/TIBC/SAT) (04/04/2024 11:30 AM CDT) IRON 85 65 - 175 MCG/DL 04/04/2024 12:50 PM CDT [facility] IRON BINDING CAPACITY 226(L) 250 - 450 MCG/DL 04/04/2024 12:50 PM CDT [facility] IRON SATURATION 38 % 12:50 PM CDT [facility] Comment:REFERENCE RANGE NOT ESTABLISHED 04/04/2024 11:3 0 AM CDT us Mery Maxwell MD LABORATORY Final Resu lt [facility] [address] [place] [address], documented in this encounter Visit Diagnoses Diagnosis CKD (chronic kidney disease) Chronic kidney disease, unspecified DM (diabetes mellitus) ([facility]) Type II or unspecified type diabetes mellitus without mention of complication, not stated as uncontrolled CHF (congestive heart failure) ([facility]) Congestive heart failure, unspecified documented in this encounter Care Teams Site Inspector Relationship Specialty Start Date End Date Mery Maxwell MD [address] [place] [phone] PCP - General FAMILY PRACTICE 08/19/23 documented as of this encounter
--- OUTSIDE RECORDS SUMMARY | 2024-06-22 17:59 | XMS_ITS ---
Author Organization [facility] ([facility]) Address [address] [place] [id number] Care Team Providers Care Independent Marketing Consultant Name Role Phone Unavailable Unavailable Unavailable Allergies, Adverse Reactions, Alerts Allergy Name Allergy Type Status Severity Reaction(s) Onset Date Inactive Date Treating Clinician Comments Amoxicillin Allergy Active Mild Allergy Hives 2021-06 21:15: 36 Medications Ordered Medication Name Filled Medication Name Start Date Stop Date Current Medication? Ordering Clinician Indication Dosage Frequency Signature (SIG) Comments Components Carvedilol 06-21 19:56: 27 Yes Number of Repeats Allowed: Frequency: Every Non-Dialys is Day ONS [facility] Formulary 2023-06 20:24: 28 Yes [id number] Number of Repeats Allowed: Frequency: Every Dialysis Treatment Mircera 2023-06 06:00: 00 Yes [id number] Number of Repeats Allowed: Frequency: JIGNESH dosing, every four weeks Lantus 2023-06 22:16: 37 Yes Number of Repeats Allowed: Frequency: Once a day, at bedtime Insulin Lispro 2023-06 22:16: 22 Yes Number of Repeats Allowed: Frequency: Three times a day calcitriol 2023-06 06:00: 00 Yes [id number] Number of Repeats Allowed: Frequency: Three times a week Midodrine HCl 2023-06 18:11: 42 Yes Number of Repeats Allowed: Frequency: As needed heparin sodium, porcine 2023-06 18:17: 11 Yes [id number] Number of Repeats Allowed: Frequency: Every Dialysis TreatmentD osesOrdere d: Hourly Dose 300 Units/Hr 1:1000 Units/mLRo toby: Intravenou s heparin sodium, porcine 2023-06 18:16: 48 Yes [id number] Number of Repeats Allowed: Frequency: Every Dialysis TreatmentD osesOrdere d: Loading Dose 1300 Units 1:1000 Units/mLRo toby: Intravenou s Amiodarone HCl 02-03 15:47: 06 Yes Number of Repeats Allowed: Frequency: One time a day traMADol HCl 01-06 18:16: 12 Yes Number of Repeats Allowed: Frequency: As needed Allopurinol 01-06 18:15: 26 Yes Number of Repeats Allowed: Frequency: Two times a day Eliquis 12-18 19:05: 23 Yes Number of Repeats Allowed: Frequency: Two times a day Atorvastati n Calcium 09-18 17:31: 32 Yes Number of Repeats Allowed: Frequency: Once a day, at bedtime Mircera 09-17 05:00: 00 Yes [id number] Number of Repeats Allowed: Frequency: JIGNESH dosing, every four weeks Venofer 08-13 06:00: 00 Yes [id number] Number of Repeats Allowed: Frequency: One time a weekDosesO rdered: Maintenanc e Dose 50 Milligram Route: Intravenou s Normal Saline Solution 0.9% NaCl 08-04 06:00: 00 Yes [id number] Number of Repeats Allowed: Frequency: As needed diphenhydra mine hydrochlori de 08-04 06:00: 00 Yes [id number] Number of Repeats Allowed: Frequency: Every 4 hours as needed clonidine 08-04 06:00: 00 Yes [id number] Number of Repeats Allowed: Frequency: Every 4 hours as needed Antacid Extra Strength 08-04 06:00: 00 Yes [id number] Number of Repeats Allowed: Frequency: Every 4 hours as needed acetaminoph en 08-04 06:00: 00 Yes [id number] Number of Repeats Allowed: Frequency: Every 4 hours as needed Gabapentin 08-04 06:00: 00 Yes Number of Repeats Allowed: Frequency: Two times a day Insta-Gluco se 08-04 06:00: 00 Yes [id number] Number of Repeats Allowed: Frequency: Every 30 minutes as needed Nitrostat 08-04 06:00: 00 Yes [id number] Number of Repeats Allowed: Frequency: Every 5 minutes as needed Oxygen 08-04 06:00: 00 Yes [id number] Number of Repeats Allowed: Frequency: As needed Problems This patient has no known problems. Procedures Procedure Date / Time Performed Performing Clinician Sharon ce Details Central Venous Catheter (CVC) 2023-03-16 05:00:00 Access Site Chest (Right) Access Use Start Date 2023-03-16 05:00:0 0 Access Use End Date 2023-05-29 06:00:00 AV [id number] 05:00:00 Access Site Forearm (Left) Access Use Start Date 2023-04-21 00:00:0 0 Central Venous Catheter (CVC)2022-03-25 05:00:00 Access Site Chest (Right) Access Use End Date 2023-03-16 05:00:00 DIALYSIS ORDER Dialysis Procedure Orders Type of Dialysis Procedure Order Order Date/Time Observations In-Center Hemodialysis Treatment April 02, 2024 Target Weight 118 kg Dialysate Flow Rate 800 mL/min Blood Flow Rate 450 mL/min Treatment Time 210 min(total) Max UF Rate 13 mL/kg/hr Base Sodium Dialysate Base Sodium 138 mE q/L dialysate_temp 36 ?C BiCarb Dialysate BiCarbonate 35 meq/L Access Concurrent No Arterial Access AV Fistula (Forearm (Left)) Venous Access AV Fistula (Forearm (Left)) Arterial Needle Display NIPRO, TULIP, 15 G x 1 , SHARP , TWIN Venous Needle NIPRO, TULIP, 15G x 1 , SHARP , TWIN Dialyzer Nipro Elisio 17H 145 5 treatment_bath_code_[email or web address] Dialysate Bath Potassium Potassium 3 mEq /L Dialysate Bath Calcium Calcium 2.5 mEq/L Results Adequacy Description Draw Date Result/Unit Status Ref Range Result Comments WEIGHT (KG) 2024-06-21 21:50:11 118 kg F PATIENT AGE 2024-06-21 21:50:11 53 Years F AMPUTATE FACTOR 2024-06-21 21:50:11 0 F HEIGHT IN INCHES 2024-06-21 21:50:11 73 Inches F Creatinine [Mass/volume] in Serum or Plasma 2024-06-01 17:55:17 5.05 mg/dL F 0.7-1.3 spKt/V 2024-05-18 18:28:45 1.23 F HEIGHT IN INCHES 2024-05-18 18:28:45 73 Inches F DIALYZER FLOW-QD 2024-05-18 18:28:45 800 mL/min F BLOOD FLOW-QWB 2024-05-18 18:28:45 423 F nPCR 2024-05-18 18:28:45 0.55 G/KG/D F VM (KT/V MEAN VOL) 2024-05-18 18:28:45 52 F PATIENT AGE 2024-05-18 18:28:45 53 Years F KT/V PRESCRIBED 2024-05-18 18:28:45 1.44 F VT (KT/V TX VOL) 2024-05-18 18:28:45 53.7 L F AMPUTATE FACTOR 2024-05-18 18:28:45 0 F WEIGHT - PRE DAY 1 2024-05-18 18:28:45 129.7 kg F eKt/V 2024-05-18 18:28:45 1.05 F PRESCRIBED DAYS/WEEK 2024-05-18 18:28:45 3 Day/Wk F stdKT/V Total 2024-05-18 18:28:45 N/A F WEIGHT (KG) 2024-05-18 18:28:45 118 kg F Dialyzer DB 2024-05-18 18:28:45 1455 Calc F TBW (Wolff) 2024-05-18 18:28:45 59.5 Liters F Residual kt/v 2024-05-18 18:28:45 F WEIGHT - POST DAY 1 2024-05-18 18:28:45 124.9 kg F CURRENT KRU 2024-05-18 18:28:45 F Total Kt/V 2024-05-18 18:28:45 1.23 F Std Renal KT/V 2024-05-18 18:28:45 N/A F TOTAL HOURS/WEEK DIALYSIS 2024-05-18 18:28:45 7 hrs F stdKt/V (DIAL) 2024-05-18 18:28:45 N/A F BSA STARR 2024-05-18 18:28:45 2.41 sq m F LENGTH OF DIALYSIS 2024-05-18 18:28:45 210 min F LENGTH OF DIALYSIS 2024-05-18 18:28:45 210 min F Dialyzer DB 2024-05-18 18:28:45 1455 Calc F PATIENT AGE 2024-05-18 18:28:45 53 Years F DIALYZER FLOW-QD 2024-05-18 18:28:45 800 mL/min F BSA STARR 2024-05-18 18:28:45 2.41 sq m F WEIGHT - POST DAY 1 2024-05-18 18:28:45 124.9 kg F WEIGHT - PRE DAY 1 2024-05-18 18:28:45 129.7 kg F HEIGHT IN INCHES 2024-05-18 18:28:45 73 Inches F WEIGHT (KG) 2024-05-18 18:28:45 118 kg F PRESCRIBED DAYS/WEEK 2024-05-18 18:28:45 3 Day/Wk F Residual kt/v 2024-05-18 18:28:45 F VM (KT/V MEAN VOL) 2024-05-18 18:28:45 52 F VT (KT/V TX VOL) 2024-05-18 18:28:45 53.7 L F KT/V PRESCRIBED 2024-05-18 18:28:45 1.44 F Total Kt/V 2024-05-18 18:28:45 1.23 F AMPUTATE FACTOR 2024-05-18 18:28:45 0 F TBW (Wolff) 2024-05-18 18:28:45 59.5 Liters F nPCR 2024-05-18 18:28:45 0.55 G/KG/D F spKt/V 2024-05-18 18:28:45 1.23 F eKt/V 2024-05-18 18:28:45 1.05 F stdKT/V Total 2024-05-18 18:28:45 N/A F Std Renal KT/V 2024-05-18 18:28:45 N/A F stdKt/V (DIAL) 2024-05-18 18:28:45 N/A F BLOOD FLOW-QWB 2024-05-18 18:28:45 423 F TOTAL HOURS/WEEK DIALYSIS 2024-05-18 18:28:45 7 hrs F [facility] 2024-05-18 18:28:45 F URR% 2024-05-18 18:28:43 65 % F URR% 2024-05-18 18:28:43 65 % F Urea nitrogen [Mass/volume] in Serum or Plasma 2024-05-18 18:27:18 57 mg/dL F 9.0-23.0 Urea nitrogen [Mass/volume] in Serum or Plasma 2024-05-18 18:27:18 57 mg/dL F 9.0-23.0 Urea nitrogen [Mass/volume] in Serum or Plasma --post dialysis 2024-05-18 18:16:15 20 mg/dL F 9.0-23.0 Urea nitrogen [Mass/volume] in Serum or Plasma --post dialysis 2024-05-18 18:16:15 20 mg/dL F 9.0-23.0 Creatinine [Mass/volume] in Serum or Plasma 2024-05-04 22:42:24 6.61 mg/dL F 0.7-1.3 Creatinine [Mass/volume] in Serum or Plasma 2024-05-04 22:42:24 6.61 mg/dL F 0.7-1.3 TBW (Wolff) 2024-04-20 19:25:11 58.15 Liters F [facility] 2024-04-20 19:25:11 F stdKt/V (DIAL) 2024-04-20 19:25:11 N/A F DIALYZER FLOW-QD 2024-04-20 19:25:11 800 mL/min F PRESCRIBED DAYS/WEEK 2024-04-20 19:25:11 3 Day/Wk F WEIGHT - POST DAY 1 2024-04-20 19:25:11 120.9 kg F WEIGHT (KG) 2024-04-20 19:25:11 118 kg F Residual kt/v 2024-04-20 19:25:11 F KT/V PRESCRIBED 2024-04-20 19:25:11 1.44 F stdKT/V Total 2024-04-20 19:25:11 N/A F Total Kt/V 2024-04-20 19:25:11 1.3 F nPCR 2024-04-20 19:25:11 0.94 G/KG/D F spKt/V 2024-04-20 19:25:11 1.3 F VM (KT/V MEAN VOL) 2024-04-20 19:25:11 51.5 F WEIGHT - PRE DAY 1 2024-04-20 19:25:11 125.1 kg F Std Renal KT/V 2024-04-20 19:25:11 N/A F LENGTH OF DIALYSIS 2024-04-20 19:25:11 210 min F VT (KT/V TX VOL) 2024-04-20 19:25:11 52.2 L F TOTAL HOURS/WEEK DIALYSIS 2024-04-20 19:25:11 10 hrs F AMPUTATE FACTOR 2024-04-20 19:25:11 0 F eKt/V 2024-04-20 19:25:11 1.11 F Dialyzer DB 2024-04-20 19:25:11 1455 Calc F PATIENT AGE 2024-04-20 19:25:11 53 Years F URR% 2024-04-20 19:25:11 67 % F HEIGHT IN INCHES 2024-04-20 19:25:11 73 Inches F BSA STARR 2024-04-20 19:25:11 2.41 sq m F BLOOD FLOW-QWB 2024-04-20 19:25:11 450 F Urea nitrogen [Mass/volume] in Serum or Plasma --post dialysis 2024-04-20 19:23:14 21 mg/dL F 9.0-23.0 Urea nitrogen [Mass/volume] in Serum or Plasma 2024-04-20 15:13:20 63 mg/dL F 9.0-23.0 VM (KT/V MEAN VOL) 2024-04-06 19:56:30 51.3 F WEIGHT - POST DAY 1 2024-04-06 19:56:30 119.4 kg F WEIGHT (KG) 2024-04-06 19:56:30 118 kg F VT (KT/V TX VOL) 2024-04-06 19:56:30 51.1 L F stdKt/V (DIAL) 2024-04-06 19:56:30 N/A F eKt/V 2024-04-06 19:56:30 1.13 F Dialyzer DB 2024-04-06 19:56:30 1455 Calc F PATIENT AGE 2024-04-06 19:56:30 53 Years F HEIGHT IN INCHES 2024-04-06 19:56:30 73 Inches F spKt/V 2024-04-06 19:56:30 1.32 F LENGTH OF DIALYSIS 2024-04-06 19:56:30 210 min F PRESCRIBED DAYS/WEEK 2024-04-06 19:56:30 3 Day/Wk F KT/V PRESCRIBED 2024-04-06 19:56:30 1.44 F DIALYZER FLOW-QD 2024-04-06 19:56:30 770 mL/min F WEIGHT - PRE DAY 1 2024-04-06 19:56:30 122.7 kg F AMPUTATE FACTOR 2024-04-06 19:56:30 0 F stdKT/V Total 2024-04-06 19:56:30 N/A F BSA STARR 2024-04-06 19:56:30 2.41 sq m F BLOOD FLOW-QWB 2024-04-06 19:56:30 450 F Std Renal KT/V 2024-04-06 19:56:30 N/A F TOTAL HOURS/WEEK DIALYSIS 2024-04-06 19:56:30 7 hrs F Residual kt/v 2024-04-06 19:56:30 F TBW (Wolff) 2024-04-06 19:56:30 57.65 Liters F nPCR 2024-04-06 19:56:30 0.98 G/KG/D F CURRENT KRU 2024-04-06 19:56:30 F Total Kt/V 2024-04-06 19:56:30 1.32 F URR% 2024-04-06 19:56:29 68 % F Urea nitrogen [Mass/volume] in Serum or Plasma 2024-04-06 19:53:17 79 mg/dL F 9.0-23.0 Creatinine [Mass/volume] in Serum or Plasma 2024-04-06 16:48:25 7.43 mg/dL F 0.7-1.3 Urea nitrogen [Mass/volume] in Serum or Plasma --post dialysis 2024-04-06 14:10:19 25 mg/dL F 9.0-23.0 Creatinine [Mass/volume] in Serum or Plasma 2024-03-02 15:27:19 8.49 mg/dL F 0.7-1.3 Creatinine [Mass/volume] in Serum or Plasma 2024-02-03 15:11:30 6.61 mg/dL F 0.7-1.3 Creatinine [Mass/volume] in Serum or Plasma 2023-12-30 18:38:42 5.59 mg/dL F 0.7-1.3 Creatinine [Mass/volume] in Serum or Plasma 2023-12-30 18:38:42 5.59 mg/dL F 0.7-1.3 Creatinine [Mass/volume] in Serum or Plasma 2023-12-02 16:53:35 4.12 mg/dL F 0.7-1.3 Creatinine [Mass/volume] in Serum or Plasma 2023-11-04 17:42:37 5.68 mg/dL F 0.7-1.3 Creatinine [Mass/volume] in Serum or Plasma 2023-11-04 17:42:37 5.68 mg/dL F 0.7-1.3 Creatinine [Mass/volume] in Serum or Plasma 2023-09-30 22:09:48 4.8 mg/dL F 0.7-1.3 [facility] 2023-09-09 17:36:16 F BLOOD FLOW-QWB 2023-09-09 17:36:16 450 F CURRENT [facility] 2023-09-09 17:36:16 F VM (KT/V MEAN VOL) 2023-09-09 17:36:16 46.5 F WEIGHT - PRE DAY 1 2023-09-09 17:36:16 120 kg F stdKT/V Total 2023-09-09 17:36:16 N/A F eKt/V 2023-09-09 17:36:16 1.38 F Std Renal KT/V 2023-09-09 17:36:16 N/A F TOTAL HOURS/WEEK DIALYSIS 2023-09-09 17:36:16 3 hrs F spKt/V 2023-09-09 17:36:16 1.61 F stdKt/V (DIAL) 2023-09-09 17:36:16 N/A F Dialyzer DB 2023-09-09 17:36:16 1218 Calc F PATIENT AGE 2023-09-09 17:36:16 52 Years F HEIGHT IN INCHES 2023-09-09 17:36:16 73 Inches F PRESCRIBED DAYS/WEEK 2023-09-09 17:36:16 3 Day/Wk F WEIGHT (KG) 2023-09-09 17:36:16 116.5 kg F Total Kt/V 2023-09-09 17:36:16 1.61 F TBW (Wolff) 2023-09-09 17:36:16 56.67 Liters F KT/V PRESCRIBED 2023-09-09 17:36:16 1.58 F DIALYZER FLOW-QD 2023-09-09 17:36:16 800 mL/min F VT (KT/V TX VOL) 2023-09-09 17:36:16 46.5 L F LENGTH OF DIALYSIS 2023-09-09 17:36:16 239 min F URR% 2023-09-09 17:36:16 76 % F BLOOD FLOW-QWB 2023-09-09 17:36:16 450 F AMPUTATE FACTOR 2023-09-09 17:36:16 0 F Residual kt/v 2023-09-09 17:36:16 F WEIGHT - POST DAY 1 2023-09-09 17:36:16 116.2 kg F BSA STARR 2023-09-09 17:36:16 2.39 sq m F nPCR 2023-09-09 17:36:16 0.46 G/KG/D F DIALYZER FLOW-QD 2023-09-09 17:36:16 800 mL/min F Dialyzer DB 2023-09-09 17:36:16 1218 Calc F LENGTH OF DIALYSIS 2023-09-09 17:36:16 239 min F PATIENT AGE 2023-09-09 17:36:16 52 Years F URR% 2023-09-09 17:36:16 76 % F BSA STARR 2023-09-09 17:36:16 2.39 sq m F WEIGHT - POST DAY 1 2023-09-09 17:36:16 116.2 kg F WEIGHT - PRE DAY 1 2023-09-09 17:36:16 120 kg F HEIGHT IN INCHES 2023-09-09 17:36:16 73 Inches F WEIGHT (KG) 2023-09-09 17:36:16 116.5 kg F VT (KT/V TX VOL) 2023-09-09 17:36:16 46.5 L F Residual kt/v 2023-09-09 17:36:16 F VM (KT/V MEAN VOL) 2023-09-09 17:36:16 46.5 F KT/V PRESCRIBED 2023-09-09 17:36:16 1.58 F PRESCRIBED DAYS/WEEK 2023-09-09 17:36:16 3 Day/Wk F Total Kt/V 2023-09-09 17:36:16 1.61 F AMPUTATE FACTOR 2023-09-09 17:36:16 0 F nPCR 2023-09-09 17:36:16 0.46 G/KG/D F TBW (Wolff) 2023-09-09 17:36:16 56.67 Liters F spKt/V 2023-09-09 17:36:16 1.61 F stdKt/V (DIAL) 2023-09-09 17:36:16 N/A F Std Renal KT/V 2023-09-09 17:36:16 N/A F stdKT/V Total 2023-09-09 17:36:16 N/A F TOTAL HOURS/WEEK DIALYSIS 2023-09-09 17:36:16 3 hrs F eKt/V 2023-09-09 17:36:16 1.38 F Creatinine [Mass/volume] in Serum or Plasma 2023-09-02 19:59:25 5.73 mg/dL F 0.7-1.3 Urea nitrogen [Mass/volume] in Serum or Plasma --post dialysis 2023-08-05 20:07:24 14 mg/dL F 9.0-23.0 Urea nitrogen [Mass/volume] in Serum or Plasma --post dialysis 2023-08-05 20:07:24 14 mg/dL F 9.0-23.0 Creatinine [Mass/volume] in Serum or Plasma 2023-08-05 19:19:33 8.74 mg/dL F 0.7-1.3 Urea nitrogen [Mass/volume] in Serum or Plasma 2023-08-05 19:19:33 58 mg/dL F 9.0-23.0 Creatinine [Mass/volume] in Serum or Plasma 2023-08-05 19:19:33 8.74 mg/dL F 0.7-1.3 Urea nitrogen [Mass/volume] in Serum or Plasma 2023-08-05 19:19:33 58 mg/dL F 9.0-23.0 Creatinine [Mass/volume] in Serum or Plasma 2023-07-31 23:43:59 6.73 mg/dL F 0.7-1.3 Creatinine [Mass/volume] in Serum or Plasma 2023-07-31 23:43:59 6.73 mg/dL F 0.7-1.3 Creatinine [Mass/volume] in Serum or Plasma 2023-07-10 21:16:40 F Recollect - Unsp un specimen Creatinine [Mass/volume] in Serum or Plasma 2023-05-29 16:11:40 6.44 mg/dL F 0.7-1.3 Creatinine [Mass/volume] in Serum or Plasma 2023-04-24 23:09:39 5.48 mg/dL F 0.7-1.3 PATIENT AGE 2023-03-27 16:18:51 52 Years F WEIGHT - PRE DAY 1 2023-03-27 16:18:51 153.3 kg F BLOOD FLOW-QWB 2023-03-27 16:18:51 400 F WEIGHT - POST DAY 1 2023-03-27 16:18:51 148.7 kg F BSA STARR 2023-03-27 16:18:51 F Unable to calculate: Post BUN lab result is unknown LENGTH OF DIALYSIS 2023-03-27 16:18:51 233 min F VT (KT/V TX VOL) 2023-03-27 16:18:51 F Unable to calculate: Post BUN lab result is unknown HEIGHT IN INCHES 2023-03-27 16:18:51 73 Inches F Std Renal KT/V 2023-03-27 16:18:51 F Unable to calculate: Post BUN lab result is unknown PRESCRIBED DAYS/WEEK 2023-03-27 16:18:51 3 Day/Wk F eKt/V 2023-03-27 16:18:51 F Unable to calculate: Post BUN lab result is unknown Total Kt/V 2023-03-27 16:18:51 F Unable to calculate: Post BUN lab result is unknown spKt/V 2023-03-27 16:18:51 F Unable to calculate: Post BUN lab result is unknown DIALYZER FLOW-QD 2023-03-27 16:18:51 727 mL/min F Dialyzer BD 2023-03-27 16:18:51 1474 Calc F TOTAL HOURS/WEEK DIALYSIS 2023-03-27 16:18:51 12 hrs F CURRENT KRU 2023-03-27 16:18:51 F Unable to calculate: Post BUN lab result is unknown KT/V PRESCRIBED 2023-03-27 16:18:51 F Unable to calculate: Post BUN lab result is unknown WEIGHT (KG) 2023-03-27 16:18:51 147 kg F VM (KT/V MEAN VOL) 2023-03-27 16:18:51 F Unable to calculate: Post BUN lab result is unknown AMPUTATE FACTOR 2023-03-27 16:18:51 0 F nPCR 2023-03-27 16:18:51 F Unable to calculate: Post BUN lab result is unknown stdKT/V Total 2023-03-27 16:18:51 N/A F stdKt/V (DIAL) 2023-03-27 16:18:51 F Unable to calculate: Post BUN lab result is unknown Residual kt/v 2023-03-27 16:18:51 F Unable to calculate: Post BUN lab result is unknown TBW (Wolff) 2023-03-27 16:18:51 F Unable to calculate: Post BUN lab result is unknown URR% 2023-03-27 16:18:51 F Unable to calculate: Post BUN lab result is unknown URR% 2023-03-27 16:18:51 F Unable to calculate: Post BUN lab result is unknown DIALYZER FLOW-QD 2023-03-27 16:18:51 727 mL/min F Dialyzer DB 2023-03-27 16:18:51 1474 Calc F LENGTH OF DIALYSIS 2023-03-27 16:18:51 233 min F PATIENT AGE 2023-03-27 16:18:51 52 Years F BSA STARR 2023-03-27 16:18:51 F Unable to calculate: Post BUN lab result is unknown HEIGHT IN INCHES 2023-03-27 16:18:51 73 Inches F WEIGHT (KG) 2023-03-27 16:18:51 147 kg F WEIGHT - PRE DAY 1 2023-03-27 16:18:51 153.3 kg F PRESCRIBED DAYS/WEEK 2023-03-27 16:18:51 3 Day/Wk F WEIGHT - POST DAY 1 2023-03-27 16:18:51 148.7 kg F VT (KT/V TX VOL) 2023-03-27 16:18:51 F Unable to calculate: Post BUN lab result is unknown VM (KT/V MEAN VOL) 2023-03-27 16:18:51 F Unable to calculate: Post BUN lab result is unknown Residual kt/v 2023-03-27 16:18:51 F Unable to calculate: Post BUN lab result is unknown KT/V PRESCRIBED 2023-03-27 16:18:51 F Unable to calculate: Post BUN lab result is unknown AMPUTATE FACTOR 2023-03-27 16:18:51 0 F Total Kt/V 2023-03-27 16:18:51 F Unable to calculate: Post BUN lab result is unknown TBW (Wolff) 2023-03-27 16:18:51 F Unable to calculate: Post BUN lab result is unknown spKt/V 2023-03-27 16:18:51 F Unable to calculate: Post BUN lab result is unknown nPCR 2023-03-27 16:18:51 F Unable to calculate: Post BUN lab result is unknown eKt/V 2023-03-27 16:18:51 F Unable to calculate: Post BUN lab result is unknown stdKt/V (DIAL) 2023-03-27 16:18:51 F Unable to calculate: Post BUN lab result is unknown TOTAL HOURS/WEEK DIALYSIS 2023-03-27 16:18:51 12 hrs F stdKT/V Total 2023-03-27 16:18:51 N/A F CURRENT KRU 2023-03-27 16:18:51 F Unable to calculate: Post BUN lab result is unknown Std Renal KT/V 2023-03-27 16:18:51 F Unable to calculate: Post BUN lab result is unknown BLOOD FLOW-QWB 2023-03-27 16:18:51 400 F Creatinine [Mass/volume] in Serum or Plasma 2023-03-27 16:17:35 4.43 mg/dL F 0.7-1.3 Urea nitrogen [Mass/volume] in Serum or Plasma 2023-03-27 16:17:35 60 mg/dL F 9.0-23.0 Urea nitrogen [Mass/volume] in Serum or Plasma 2023-03-27 16:17:35 60 mg/dL F 9.0-23.0 Creatinine [Mass/volume] in Serum or Plasma 2023-03-27 16:17:35 4.43 mg/dL F 0.7-1.3 Urea nitrogen [Mass/volume] in Serum or Plasma --post dialysis 2023-03-27 14:48:19 F Recollect - Unsp un specimen Urea nitrogen [Mass/volume] in Serum or Plasma --post dialysis 2023-03-27 14:48:19 F Recollect - Unsp un specimen VT (KT/V TX VOL) 2023-02-27 17:54:47 56 L F WEIGHT (KG) 2023-02-27 17:54:47 146 kg F Residual kt/v 2023-02-27 17:54:47 F TBW (Wolff) 2023-02-27 17:54:47 66.52 Liters F KT/V PRESCRIBED 2023-02-27 17:54:47 1.32 F DIALYZER FLOW-QD 2023-02-27 17:54:47 600 mL/min F TOTAL HOURS/WEEK DIALYSIS 2023-02-27 17:54:47 12 hrs F stdKT/V Total 2023-02-27 17:54:47 N/A F PATIENT AGE 2023-02-27 17:54:47 52 Years F HEIGHT IN INCHES 2023-02-27 17:54:47 73 Inches F Total Kt/V 2023-02-27 17:54:47 1.22 F URR% 2023-02-27 17:54:47 63 % F AMPUTATE FACTOR 2023-02-27 17:54:47 0 F WEIGHT - PRE DAY 1 2023-02-27 17:54:47 150.1 kg F WEIGHT - POST DAY 1 2023-02-27 17:54:47 145.5 kg F BLOOD FLOW-QWB 2023-02-27 17:54:47 378 F nPCR 2023-02-27 17:54:47 0.94 G/KG/D F PRESCRIBED DAYS/WEEK 2023-02-27 17:54:47 3 Day/Wk F stdKt/V (DIAL) 2023-02-27 17:54:47 N/A F VM (KT/V MEAN VOL) 2023-02-27 17:54:47 56.4 F Std Renal KT/V 2023-02-27 17:54:47 N/A F spKt/V 2023-02-27 17:54:47 1.22 F Dialyzer DB 2023-02-27 17:54:47 1474 Calc F CURRENT KRU 2023-02-27 17:54:47 F eKt/V 2023-02-27 17:54:47 1.06 F BSA STARR 2023-02-27 17:54:47 2.63 sq m F LENGTH OF DIALYSIS 2023-02-27 17:54:47 241 min F URR% 2023-02-27 17:54:47 63 % F Dialyzer DB 2023-02-27 17:54:47 1474 Calc F PATIENT AGE 2023-02-27 17:54:47 52 Years F DIALYZER FLOW-QD 2023-02-27 17:54:47 600 mL/min F LENGTH OF DIALYSIS 2023-02-27 17:54:47 241 min F BSA STARR 2023-02-27 17:54:47 2.63 sq m F WEIGHT - POST DAY 1 2023-02-27 17:54:47 145.5 kg F WEIGHT - PRE DAY 1 2023-02-27 17:54:47 150.1 kg F WEIGHT (KG) 2023-02-27 17:54:47 146 kg F VT (KT/V TX VOL) 2023-02-27 17:54:47 56 L F HEIGHT IN INCHES 2023-02-27 17:54:47 73 Inches F PRESCRIBED DAYS/WEEK 2023-02-27 17:54:47 3 Day/Wk F Residual kt/v 2023-02-27 17:54:47 F KT/V PRESCRIBED 2023-02-27 17:54:47 1.32 F VM (KT/V MEAN VOL) 2023-02-27 17:54:47 56.4 F nPCR 2023-02-27 17:54:47 0.94 G/KG/D F TBW (Wolff) 2023-02-27 17:54:47 66.52 Liters F Total Kt/V 2023-02-27 17:54:47 1.22 F AMPUTATE FACTOR 2023-02-27 17:54:47 0 F eKt/V 2023-02-27 17:54:47 1.06 F stdKt/V (DIAL) 2023-02-27 17:54:47 N/A F spKt/V 2023-02-27 17:54:47 1.22 F Std Renal KT/V 2023-02-27 17:54:47 N/A F TOTAL HOURS/WEEK DIALYSIS 2023-02-27 17:54:47 12 hrs F stdKT/V Total 2023-02-27 17:54:47 N/A F BLOOD FLOW-QWB 2023-02-27 17:54:47 378 F CURRENT KRU 2023-02-27 17:54:47 F Creatinine [Mass/volume] in Serum or Plasma 2023-02-27 17:53:34 3.72 mg/dL F 0.7-1.3 Urea nitrogen [Mass/volume] in Serum or Plasma 2023-02-27 17:53:34 51 mg/dL F 9.0-23.0 Urea nitrogen [Mass/volume] in Serum or Plasma 2023-02-27 17:53:34 51 mg/dL F 9.0-23.0 Creatinine [Mass/volume] in Serum or Plasma 2023-02-27 17:53:34 3.72 mg/dL F 0.7-1.3 Urea nitrogen [Mass/volume] in Serum or Plasma --post dialysis 2023-02-27 17:03:32 19 mg/dL F 9.0-23.0 Urea nitrogen [Mass/volume] in Serum or Plasma --post dialysis 2023-02-27 17:03:32 19 mg/dL F 9.0-23.0 Creatinine [Mass/volume] in Serum or Plasma 2023-01-30 22:43:25 3.13 mg/dL F 0.7-1.3 Creatinine [Mass/volume] in Serum or Plasma 2023-01-30 22:43:25 3.13 mg/dL F 0.7-1.3 Residual kt/v 2022-12-20 13:56:46 F Total Kt/V 2022-12-20 13:56:46 0.91 F VT (KT/V TX VOL) 2022-12-20 13:56:46 68.8 L F WEIGHT (KG) 2022-12-20 13:56:46 117 kg F TOTAL HOURS/WEEK DIALYSIS 2022-12-20 13:56:46 3 F eKt/V 2022-12-20 13:56:46 0.8 F Dialyzer DB 2022-12-20 13:56:46 1218 Calc F spKt/V 2022-12-20 13:56:46 0.91 F BLOOD FLOW-QWB 2022-12-20 13:56:46 400 F WEIGHT - PRE DAY 1 2022-12-20 13:56:46 139.5 kg F TBW (Wolff) 2022-12-20 13:56:46 64.1 Liters F LENGTH OF DIALYSIS 2022-12-20 13:56:46 234 min F nPCR 2022-12-20 13:56:46 0.43 G/KG/D F stdKT/V Total 2022-12-20 13:56:46 N/A F Std Renal KT/V 2022-12-20 13:56:46 N/A F BSA STARR 2022-12-20 13:56:46 2.4 sq m F DIALYZER FLOW-QD 2022-12-20 13:56:46 500 mL/min F PATIENT AGE 2022-12-20 13:56:46 52 Years F CURRENT KRU 2022-12-20 13:56:46 F WEIGHT - POST DAY 1 2022-12-20 13:56:46 138.3 kg F HEIGHT IN INCHES 2022-12-20 13:56:46 73 Inches F AMPUTATE FACTOR 2022-12-20 13:56:46 0 F stdKt/V (DIAL) 2022-12-20 13:56:46 N/A F URR% 2022-12-20 13:56:46 58 % F PRESCRIBED DAYS/WEEK 2022-12-20 13:56:46 3 Day/Wk F VM (KT/V MEAN VOL) 2022-12-20 13:56:46 49.7 F KT/V PRESCRIBED 2022-12-20 13:56:46 1.32 F Creatinine [Mass/volume] in Serum or Plasma 2022-12-20 13:55:13 5.09 mg/dL F 0.7-1.3 Urea nitrogen [Mass/volume] in Serum or Plasma 2022-12-20 13:55:13 71 mg/dL F 9.0-23.0 Urea nitrogen [Mass/volume] in Serum or Plasma --post dialysis 2022-12-20 06:53:17 30 mg/dL F 9.0-23.0 URR% 2022-08-06 15:02:11 68 % F LENGTH OF DIALYSIS 2022-08-06 15:02:11 243 min F AMPUTATE FACTOR 2022-08-06 15:02:11 0 F Residual kt/v 2022-08-06 15:02:11 F BLOOD FLOW-QWB 2022-08-06 15:02:11 383 F WEIGHT - POST DAY 1 2022-08-06 15:02:11 117.4 kg F KT/V PRESCRIBED 2022-08-06 15:02:11 1.43 F VT (KT/V TX VOL) 2022-08-06 15:02:11 55.6 L F Total Kt/V 2022-08-06 15:02:11 1.19 F WEIGHT (KG) 2022-08-06 15:02:11 117 kg F stdKt/V (DIAL) 2022-08-06 15:02:11 N/A F DIALYZER FLOW-QD 2022-08-06 15:02:11 600 mL/min F Dialyzer DB 2022-08-06 15:02:11 1218 Calc F PRESCRIBED DAYS/WEEK 2022-08-06 15:02:11 3 Day/Wk F eKt/V 2022-08-06 15:02:11 1.04 F HEIGHT IN INCHES 2022-08-06 15:02:11 73 Inches F VM (KT/V MEAN VOL) 2022-08-06 15:02:11 48.7 F WEIGHT - PRE DAY 1 2022-08-06 15:02:11 118.4 kg F spKt/V 2022-08-06 15:02:11 1.19 F TBW (Wolff) 2022-08-06 15:02:11 57.17 Liters F stdKT/V Total 2022-08-06 15:02:11 N/A F nPCR 2022-08-06 15:02:11 0.3 G/KG/D F Std Renal KT/V 2022-08-06 15:02:11 N/A F PATIENT AGE 2022-08-06 15:02:11 51 Years F TOTAL HOURS/WEEK DIALYSIS 2022-08-06 15:02:11 4 F URR% 2022-08-06 15:02:11 68 % F DIALYZER FLOW-QD 2022-08-06 15:02:11 600 mL/min F LENGTH OF DIALYSIS 2022-08-06 15:02:11 243 min F PATIENT AGE 2022-08-06 15:02:11 51 Years F Dialyzer DB 2022-08-06 15:02:11 1218 Calc F WEIGHT - POST DAY 1 2022-08-06 15:02:11 117.4 kg F HEIGHT IN INCHES 2022-08-06 15:02:11 73 Inches F WEIGHT (KG) 2022-08-06 15:02:11 117 kg F WEIGHT - PRE DAY 1 2022-08-06 15:02:11 118.4 kg F PRESCRIBED DAYS/WEEK 2022-08-06 15:02:11 3 Day/Wk F VT (KT/V TX VOL) 2022-08-06 15:02:11 55.6 L F VM (KT/V MEAN VOL) 2022-08-06 15:02:11 48.7 F Residual kt/v 2022-08-06 15:02:11 F Total Kt/V 2022-08-06 15:02:11 1.19 F nPCR 2022-08-06 15:02:11 0.3 G/KG/D F AMPUTATE FACTOR 2022-08-06 15:02:11 0 F TBW (Wolff) 2022-08-06 15:02:11 57.17 Liters F KT/V PRESCRIBED 2022-08-06 15:02:11 1.43 F eKt/V 2022-08-06 15:02:11 1.04 F spKt/V 2022-08-06 15:02:11 1.19 F stdKt/V (DIAL) 2022-08-06 15:02:11 N/A F Std Renal KT/V 2022-08-06 15:02:11 N/A F TOTAL HOURS/WEEK DIALYSIS 2022-08-06 15:02:11 4 F stdKT/V Total 2022-08-06 15:02:11 N/A F BLOOD FLOW-QWB 2022-08-06 15:02:11 383 F BSA STARR 2022-08-06 15:02:11 2.4 sq m F CURRENT KRU 2022-08-06 15:02:11 F BSA STARR 2022-08-06 15:02:11 2.4 sq m F CURRENT KRU 2022-08-06 15:02:11 F Creatinine [Mass/volume] in Serum or Plasma 2022-08-06 15:00:59 2.12 mg/dL F 0.7-1.3 Urea nitrogen [Mass/volume] in Serum or Plasma 2022-08-06 15:00:59 31 mg/dL F 9.0-23.0 Urea nitrogen [Mass/volume] in Serum or Plasma 2022-08-06 15:00:59 31 mg/dL F 9.0-23.0 Creatinine [Mass/volume] in Serum or Plasma 2022-08-06 15:00:59 2.12 mg/dL F 0.7-1.3 Urea nitrogen [Mass/volume] in Serum or Plasma --post dialysis 2022-08-06 14:10:55 10 mg/dL F 9.0-23.0 Urea nitrogen [Mass/volume] in Serum or Plasma --post dialysis 2022-08-06 14:10:55 10 mg/dL F 9.0-23.0 stdKT/V Total 2022-06-28 00:26:13 N/A F DIALYZER FLOW-QD 2022-06-28 00:26:13 600 mL/min F Dialyzer DB 2022-06-28 00:26:13 1218 Calc F KT/V PRESCRIBED 2022-06-28 00:26:13 1.41 F URR% 2022-06-28 00:26:13 87 % F AMPUTATE FACTOR 2022-06-28 00:26:13 0 F Total Kt/V 2022-06-28 00:26:13 2.37 F WEIGHT - PRE DAY 1 2022-06-28 00:26:13 122.5 kg F WEIGHT - POST DAY 1 2022-06-28 00:26:13 119.3 kg F PATIENT AGE 2022-06-28 00:26:13 51 Years F WEIGHT (KG) 2022-06-28 00:26:13 118 kg F LENGTH OF DIALYSIS 2022-06-28 00:26:13 241 min F BLOOD FLOW-QWB 2022-06-28 00:26:13 348 F TOTAL HOURS/WEEK DIALYSIS 2022-06-28 00:26:13 4 F stdKt/V (DIAL) 2022-06-28 00:26:13 N/A F HEIGHT IN INCHES 2022-06-28 00:26:13 73 Inches F nPCR 2022-06-28 00:26:13 0.35 G/KG/D F spKt/V 2022-06-28 00:26:13 2.37 F PRESCRIBED DAYS/WEEK 2022-06-28 00:26:13 3 Day/Wk F BSA STARR 2022-06-28 00:26:13 2.41 sq m F VM (KT/V MEAN VOL) 2022-06-28 00:26:13 46 F CURRENT KRU 2022-06-28 00:26:13 F VT (KT/V TX VOL) 2022-06-28 00:26:13 26.4 L F eKt/V 2022-06-28 00:26:13 2.02 F TBW (Wolff) 2022-06-28 00:26:13 57.81 Liters F Residual kt/v 2022-06-28 00:26:13 F Std Renal KT/V 2022-06-28 00:26:13 N/A F Creatinine [Mass/volume] in Serum or Plasma 2022-06-28 00:23:52 2.18 mg/dL F 0.7-1.3 Urea nitrogen [Mass/volume] in Serum or Plasma 2022-06-28 00:23:52 31 mg/dL F 9.0-23.0 Urea nitrogen [Mass/volume] in Serum or Plasma --post dialysis 2022-06-27 23:46:00 4 mg/dL F 9.0-23.0 nPCR 2022-05-28 15:54:52 0.92 G/KG/D F PRESCRIBED DAYS/WEEK 2022-05-28 15:54:52 3 Day/Wk F DIALYZER FLOW-QD 2022-05-28 15:54:52 600 mL/min F URR% 2022-05-28 15:54:52 73 % F PATIENT AGE 2022-05-28 15:54:52 51 Years F WEIGHT - POST DAY 1 2022-05-28 15:54:52 122.2 kg F LENGTH OF DIALYSIS 2022-05-28 15:54:52 236 min F WEIGHT - PRE DAY 1 2022-05-28 15:54:52 122.5 kg F stdKt/V (DIAL) 2022-05-28 15:54:52 N/A F HEIGHT IN INCHES 2022-05-28 15:54:52 73 Inches F Dialyzer DB 2022-05-28 15:54:52 1218 Calc F BLOOD FLOW-QWB 2022-05-28 15:54:52 373 F spKt/V 2022-05-28 15:54:52 1.41 F KT/V PRESCRIBED 2022-05-28 15:54:52 1.38 F stdKT/V Total 2022-05-28 15:54:52 N/A F WEIGHT (KG) 2022-05-28 15:54:52 118 kg F AMPUTATE FACTOR 2022-05-28 15:54:52 0 F TOTAL HOURS/WEEK DIALYSIS 2022-05-28 15:54:52 9 F Total Kt/V 2022-05-28 15:54:52 1.41 F URR% 2022-05-28 15:54:52 73 % F Dialyzer DB 2022-05-28 15:54:52 1218 Calc F DIALYZER FLOW-QD 2022-05-28 15:54:52 600 mL/min F LENGTH OF DIALYSIS 2022-05-28 15:54:52 236 min F WEIGHT - PRE DAY 1 2022-05-28 15:54:52 122.5 kg F WEIGHT - POST DAY 1 2022-05-28 15:54:52 122.2 kg F PATIENT AGE 2022-05-28 15:54:52 51 Years F HEIGHT IN INCHES 2022-05-28 15:54:52 73 Inches F WEIGHT (KG) 2022-05-28 15:54:52 118 kg F PRESCRIBED DAYS/WEEK 2022-05-28 15:54:52 3 Day/Wk F Total Kt/V 2022-05-28 15:54:52 1.41 F KT/V PRESCRIBED 2022-05-28 15:54:52 1.38 F nPCR 2022-05-28 15:54:52 0.92 G/KG/D F AMPUTATE FACTOR 2022-05-28 15:54:52 0 F spKt/V 2022-05-28 15:54:52 1.41 F stdKt/V (DIAL) 2022-05-28 15:54:52 N/A F stdKT/V Total 2022-05-28 15:54:52 N/A F TOTAL HOURS/WEEK DIALYSIS 2022-05-28 15:54:52 9 F BLOOD FLOW-QWB 2022-05-28 15:54:52 373 F VT (KT/V TX VOL) 2022-05-28 15:54:52 45.1 L F VM (KT/V MEAN VOL) 2022-05-28 15:54:52 45.1 F CURRENT KRU 2022-05-28 15:54:52 F BSA STARR 2022-05-28 15:54:52 2.41 sq m F Std Renal KT/V 2022-05-28 15:54:52 N/A F Residual kt/v 2022-05-28 15:54:52 F eKt/V 2022-05-28 15:54:52 1.21 F TBW (Wolff) 2022-05-28 15:54:52 58.78 Liters F BSA STARR 2022-05-28 15:54:52 2.41 sq m F VT (KT/V TX VOL) 2022-05-28 15:54:52 45.1 L F VM (KT/V MEAN VOL) 2022-05-28 15:54:52 45.1 F Residual kt/v 2022-05-28 15:54:52 F eKt/V 2022-05-28 15:54:52 1.21 F TBW (Wolff) 2022-05-28 15:54:52 58.78 Liters F Std Renal KT/V 2022-05-28 15:54:52 N/A F CURRENT KRU 2022-05-28 15:54:52 F Urea nitrogen [Mass/volume] in Serum or Plasma --post dialysis 2022-05-28 15:52:16 17 mg/dL F 9.0-23.0 Urea nitrogen [Mass/volume] in Serum or Plasma --post dialysis 2022-05-28 15:52:16 17 mg/dL F 9.0-23.0 Urea nitrogen [Mass/volume] in Serum or Plasma 2022-05-28 15:47:59 62 mg/dL F 9.0-23.0 Urea nitrogen [Mass/volume] in Serum or Plasma 2022-05-28 15:47:59 62 mg/dL F 9.0-23.0 URR% 2022-05-26 14:41:20 74 % F DIALYZER FLOW-QD 2022-05-26 14:41:20 600 mL/min F Dialyzer DB 2022-05-26 14:41:20 1218 Calc F PATIENT AGE 2022-05-26 14:41:20 51 Years F WEIGHT - POST DAY 1 2022-05-26 14:41:20 117.1 kg F WEIGHT - PRE DAY 1 2022-05-26 14:41:20 118.1 kg F LENGTH OF DIALYSIS 2022-05-26 14:41:20 240 min F WEIGHT (KG) 2022-05-26 14:41:20 129.3 kg F HEIGHT IN INCHES 2022-05-26 14:41:20 F Unable to calculate: Missing Height at time of lab draw PRESCRIBED DAYS/WEEK 2022-05-26 14:41:20 3 Day/Wk F KT/V PRESCRIBED 2022-05-26 14:41:20 F Unable to calculate: Missing Height at time of lab draw Total Kt/V 2022-05-26 14:41:20 F Unable to calculate: Missing Height at time of lab draw nPCR 2022-05-26 14:41:20 F Unable to calculate: Missing Height at time of lab draw AMPUTATE FACTOR 2022-05-26 14:41:20 0 F spKt/V 2022-05-26 14:41:20 F Unable to calculate: Missing Height at time of lab draw stdKt/V (DIAL) 2022-05-26 14:41:20 F Unable to calculate: Missing Height at time of lab draw TOTAL HOURS/WEEK DIALYSIS 2022-05-26 14:41:20 4 F BLOOD FLOW-QWB 2022-05-26 14:41:20 373 F stdKT/V Total 2022-05-26 14:41:20 N/A F KT/V PRESCRIBED 2022-05-26 14:41:20 F Unable to calculate: Missing Height at time of lab draw WEIGHT (KG) 2022-05-26 14:41:20 129.3 kg F AMPUTATE FACTOR 2022-05-26 14:41:20 0 F stdKT/V Total 2022-05-26 14:41:20 N/A F URR% 2022-05-26 14:41:20 74 % F stdKt/V (DIAL) 2022-05-26 14:41:20 F Unable to calculate: Missing Height at time of lab draw LENGTH OF DIALYSIS 2022-05-26 14:41:20 240 min F HEIGHT IN INCHES 2022-05-26 14:41:20 F Unable to calculate: Missing Height at time of lab draw Dialyzer DB 2022-05-26 14:41:20 1218 Calc F BLOOD FLOW-QWB 2022-05-26 14:41:20 373 F Total Kt/V 2022-05-26 14:41:20 F Unable to calculate: Missing Height at time of lab draw nPCR 2022-05-26 14:41:20 F Unable to calculate: Missing Height at time of lab draw PRESCRIBED DAYS/WEEK 2022-05-26 14:41:20 3 Day/Wk F DIALYZER FLOW-QD 2022-05-26 14:41:20 600 mL/min F WEIGHT - PRE DAY 1 2022-05-26 14:41:20 118.1 kg F PATIENT AGE 2022-05-26 14:41:20 51 Years F TOTAL HOURS/WEEK DIALYSIS 2022-05-26 14:41:20 4 F WEIGHT - POST DAY 1 2022-05-26 14:41:20 117.1 kg F spKt/V 2022-05-26 14:41:20 F Unable to calculate: Missing Height at time of lab draw BSA STARR 2022-05-26 14:41:20 F Unable to calculate: Missing Height at time of lab draw VT (KT/V TX VOL) 2022-05-26 14:41:20 F Unable to calculate: Missing Height at time of lab draw VM (KT/V MEAN VOL) 2022-05-26 14:41:20 F Unable to calculate: Missing Height at time of lab draw Residual kt/v 2022-05-26 14:41:20 F Unable to calculate: Missing Height at time of lab draw TBW (Wolff) 2022-05-26 14:41:20 F Unable to calculate: Missing Height at time of lab draw eKt/V 2022-05-26 14:41:20 F Unable to calculate: Missing Height at time of lab draw Std Renal KT/V 2022-05-26 14:41:20 F Unable to calculate: Missing Height at time of lab draw CURRENT KRU 2022-05-26 14:41:20 F Unable to calculate: Missing Height at time of lab draw Residual kt/v 2022-05-26 14:41:20 F Unable to calculate: Missing Height at time of lab draw BSA STARR 2022-05-26 14:41:20 F Unable to calculate: Missing Height at time of lab draw TBW (Wolff) 2022-05-26 14:41:20 F Unable to calculate: Missing Height at time of lab draw eKt/V 2022-05-26 14:41:20 F Unable to calculate: Missing Height at time of lab draw Std Renal KT/V 2022-05-26 14:41:20 F Unable to calculate: Missing Height at time of lab draw VM (KT/V MEAN VOL) 2022-05-26 14:41:20 F Unable to calculate: Missing Height at time of lab draw VT (KT/V TX VOL) 2022-05-26 14:41:20 F Unable to calculate: Missing Height at time of lab draw CURRENT KRU 2022-05-26 14:41:20 F Unable to calculate: Missing Height at time of lab draw Urea nitrogen [Mass/volume] in Serum or Plasma --post dialysis 2022-05-23 21:23:44 23 mg/dL F 9.0-23.0 Urea nitrogen [Mass/volume] in Serum or Plasma --post dialysis 2022-05-23 21:23:44 23 mg/dL F 9.0-23.0 Urea nitrogen [Mass/volume] in Serum or Plasma 2022-05-23 20:51:42 90 mg/dL F 9.0-23.0 Creatinine [Mass/volume] in Serum or Plasma 2022-05-23 20:51:42 10.9 mg/dL F 0.7-1.3 Creatinine [Mass/volume] in Serum or Plasma 2022-05-23 20:51:42 10.9 mg/dL F 0.7-1.3 Urea nitrogen [Mass/volume] in Serum or Plasma 2022-05-23 20:51:42 90 mg/dL F 9.0-23.0 Urea nitrogen [Mass/volume] in Serum or Plasma --post dialysis TOTAL HOURS/WEEK DIALYSIS VM (KT/V MEAN VOL) WEIGHT - POST DAY 1 DIALYZER FLOW-QD LENGTH OF DIALYSIS stdKt/V (DIAL) VT (KT/V TX VOL) stdKT/V Total CURRENT KRU PRESCRIBED DAYS/WEEK BSA STARR Std Renal KT/V BLOOD FLOW-QWB eKt/V Dialyzer DB URR% TBW (Wolff) Urea nitrogen [Mass/volume] in Serum or Plasma spKt/V KT/V PRESCRIBED WEIGHT - PRE DAY 1 Total Kt/V Residual kt/v nPCR Anemia Description Draw Date Result/Unit Status Ref Range Result Comments HCT CALC HGBX3 2024-06-01 20:02:20 30 % F 42.0-52.0 Erythrocyte distribution width [Ratio] by Automated count 2024-06-01 20:01:14 14.5 % F 11.0-15.0 Erythrocytes [#/volume] in Blood by Automated count 2024-06-01 20:01:14 3.04 x 10'6 cells/uL F 4.6-6.2 Hematocrit [Volume Fraction] of Blood by Automated count 2024-06-01 20:01:14 32.1 % F 41.0-53.0 Hemoglobin [Mass/volume] in Blood 2024-06-01 20:01:14 10 g/dL F 14.0-18.0 MCV [Entitic volume] by Automated count 2024-06-01 20:01:14 105.6 fL F 80.0-100.0 MCHC [Mass/volume] by Automated count 2024-06-01 20:01:14 31.2 g/dL F 29.6-35.3 MCH [Entitic mass] by Automated count 2024-06-01 20:01:14 32.9 pg F 25.9-34.2 Platelets [#/volume] in Blood by Automated count 2024-06-01 20:01:14 190 x 10^3 cells/uL F 140.0-450.0 HCT CALC HGBX3 2024-05-18 18:10:39 31.2 % F 42.0-52.0 HCT CALC HGBX3 2024-05-18 18:10:39 31.2 % F 42.0-52.0 Hemoglobin [Mass/volume] in Blood 2024-05-18 18:09:23 10.4 g/dL F 14.0-18.0 Hemoglobin [Mass/volume] in Blood 2024-05-18 18:09:23 10.4 g/dL F 14.0-18.0 HCT CALC HGBX3 2024-05-04 21:09:23 33.6 % F 42.0-52.0 HCT CALC HGBX3 2024-05-04 21:09:23 33.6 % F 42.0-52.0 Erythrocytes [#/volume] in Blood by Automated count 2024-05-04 21:06:11 3.31 x 10'6 cells/uL F 4.6-6.2 Erythrocyte distribution width [Ratio] by Automated count 2024-05-04 21:06:11 14.2 % F 11.0-15.0 Hemoglobin [Mass/volume] in Blood 2024-05-04 21:06:11 11.2 g/dL F 14.0-18.0 MCH [Entitic mass] by Automated count 2024-05-04 21:06:11 33.6 pg F 25.9-34.2 MCHC [Mass/volume] by Automated count 2024-05-04 21:06:11 32.2 g/dL F 29.6-35.3 Hematocrit [Volume Fraction] of Blood by Automated count 2024-05-04 21:06:11 34.6 % F 41.0-53.0 MCV [Entitic volume] by Automated count 2024-05-04 21:06:11 104.5 fL F 80.0-100.0 Platelets [#/volume] in Blood by Automated count 2024-05-04 21:06:11 192 x 10'3 cells/uL F 140.0-450.0 Erythrocytes [#/volume] in Blood by Automated count 2024-05-04 21:06:11 3.31 x 10'6 cells/uL F 4.6-6.2 Hematocrit [Volume Fraction] of Blood by Automated count 2024-05-04 21:06:11 34.6 % F 41.0-53.0 Hemoglobin [Mass/volume] in Blood 2024-05-04 21:06:11 11.2 g/dL F 14.0-18.0 Erythrocyte distribution width [Ratio] by Automated count 2024-05-04 21:06:11 14.2 % F 11.0-15.0 MCV [Entitic volume] by Automated count 2024-05-04 21:06:11 104.5 fL F 80.0-100.0 MCHC [Mass/volume] by Automated count 2024-05-04 21:06:11 32.2 g/dL F 29.6-35.3 Platelets [#/volume] in Blood by Automated count 2024-05-04 21:06:11 192 x 10^3 cells/uL F 140.0-450.0 MCH [Entitic mass] by Automated count 2024-05-04 21:06:11 33.6 pg F 25.9-34.2 HCT CALC HGBX3 2024-04-21 21:55:04 32.1 % F 42.0-52.0 Hemoglobin [Mass/volume] in Blood 2024-04-20 15:43:16 10.7 g/dL F 14.0-18.0 Ferritin [Mass/volume] in Serum or Plasma 2024-04-07 07:30:02 417 ng/mL F 22.0-322.0 HCT CALC HGBX3 2024-04-07 03:20:23 34.8 % F 42.0-52.0 Erythrocytes [#/volume] in Blood by Automated count 2024-04-07 03:20:11 3.55 x 10'6 cells/uL F 4.6-6.2 Erythrocyte distribution width [Ratio] by Automated count 2024-04-07 03:20:11 13.6 % F 11.0-15.0 Hemoglobin [Mass/volume] in Blood 2024-04-07 03:20:11 11.6 g/dL F 14.0-18.0 MCHC [Mass/volume] by Automated count 2024-04-07 03:20:11 31.9 g/dL F 29.6-35.3 MCH [Entitic mass] by Automated count 2024-04-07 03:20:11 32.6 pg F 25.9-34.2 Hematocrit [Volume Fraction] of Blood by Automated count 2024-04-07 03:20:11 36.3 % F 41.0-53.0 MCV [Entitic volume] by Automated count 2024-04-07 03:20:11 102.2 fL F 80.0-100.0 Platelets [#/volume] in Blood by Automated count 2024-04-07 03:20:11 210 x 10^3 cells/uL F 140.0-450.0 IRON SATURATION 2024-04-06 17:52:40 30 % F 21.0-49.0 TIBC 2024-04-06 17:52:40 241 ug/dL F 250.0-425.0 Iron [Mass/volume] in Serum or Plasma 2024-04-06 17:52:08 73 ug/dL F 65.0-175.0 Iron binding capacity.unsaturated [Mass/volume] in Serum or Plasma 2024-04-06 17:52:08 168 ug/dL F 75.0-360.0 HCT CALC HGBX3 2024-03-02 14:37:04 34.2 % F 42.0-52.0 Erythrocytes [#/volume] in Blood by Automated count 2024-03-02 14:36:13 3.38 x 10'6 cells/uL F 4.6-6.2 Erythrocyte distribution width [Ratio] by Automated count 2024-03-02 14:36:13 14.9 % F 11.0-15.0 Hemoglobin [Mass/volume] in Blood 2024-03-02 14:36:13 11.4 g/dL F 14.0-18.0 MCH [Entitic mass] by Automated count 2024-03-02 14:36:13 33.7 pg F 25.9-34.2 MCHC [Mass/volume] by Automated count 2024-03-02 14:36:13 32.5 g/dL F 29.6-35.3 Hematocrit [Volume Fraction] of Blood by Automated count 2024-03-02 14:36:13 35.1 % F 41.0-53.0 MCV [Entitic volume] by Automated count 2024-03-02 14:36:13 103.7 fL F 80.0-100.0 Platelets [#/volume] in Blood by Automated count 2024-03-02 14:36:13 217 x 10^3 cells/uL F 140.0-450.0 HCT CALC HGBX3 2024-02-03 15:00:08 32.7 % F 42.0-52.0 Erythrocytes [#/volume] in Blood by Automated count 2024-02-03 14:59:32 3.34 x 10'6 cells/uL F 4.6-6.2 Erythrocyte distribution width [Ratio] by Automated count 2024-02-03 14:59:32 14 % F 11.0-15.0 Hemoglobin [Mass/volume] in Blood 2024-02-03 14:59:32 10.9 g/dL F 14.0-18.0 Hematocrit [Volume Fraction] of Blood by Automated count 2024-02-03 14:59:32 33.9 % F 41.0-53.0 MCHC [Mass/volume] by Automated count 2024-02-03 14:59:32 32.1 g/dL F 29.6-35.3 MCH [Entitic mass] by Automated count 2024-02-03 14:59:32 32.6 pg F 25.9-34.2 MCV [Entitic volume] by Automated count 2024-02-03 14:59:32 101.6 fL F 80.0-100.0 Platelets [#/volume] in Blood by Automated count 2024-02-03 14:59:32 216 x 10^3 cells/uL F 140.0-450.0 Ferritin [Mass/volume] in Serum or Plasma 2023-12-31 06:55:38 375 ng/mL F 22.0-322.0 Ferritin [Mass/volume] in Serum or Plasma 2023-12-31 06:55:38 375 ng/mL F 22.0-322.0 IRON SATURATION 2023-12-31 06:12:59 27 % F 21.0-49.0 TIBC 2023-12-31 06:12:59 245 ug/dL F 250.0-425.0 IRON SATURATION 2023-12-31 06:12:59 27 % F 21.0-49.0 TIBC 2023-12-31 06:12:59 245 ug/dL F 250.0-425.0 Iron binding capacity.unsaturated [Mass/volume] in Serum or Plasma 2023-12-31 06:07:57 178 ug/dL F 75.0-360.0 Iron binding capacity.unsaturated [Mass/volume] in Serum or Plasma 2023-12-31 06:07:57 178 ug/dL F 75.0-360.0 Iron [Mass/volume] in Serum or Plasma 2023-12-31 06:07:50 67 ug/dL F 65.0-175.0 Iron [Mass/volume] in Serum or Plasma 2023-12-31 06:07:50 67 ug/dL F 65.0-175.0 HCT CALC HGBX3 2023-12-30 16:06:29 34.5 % F 42.0-52.0 HCT CALC HGBX3 2023-12-30 16:06:29 34.5 % F 42.0-52.0 Erythrocytes [#/volume] in Blood by Automated count 2023-12-30 16:05:32 3.44 x 10'6 cells/uL F 4.6-6.2 Erythrocyte distribution width [Ratio] by Automated count 2023-12-30 16:05:32 14.1 % F 11.0-15.0 MCH [Entitic mass] by Automated count 2023-12-30 16:05:32 33.4 pg F 25.9-34.2 Hemoglobin [Mass/volume] in Blood 2023-12-30 16:05:32 11.5 g/dL F 14.0-18.0 MCHC [Mass/volume] by Automated count 2023-12-30 16:05:32 32.1 g/dL F 29.6-35.3 Hematocrit [Volume Fraction] of Blood by Automated count 2023-12-30 16:05:32 35.7 % F 41.0-53.0 MCV [Entitic volume] by Automated count 2023-12-30 16:05:32 103.9 fL F 80.0-100.0 Platelets [#/volume] in Blood by Automated count 2023-12-30 16:05:32 211 x 10'3 cells/uL F 140.0-450.0 Erythrocyte distribution width [Ratio] by Automated count 2023-12-30 16:05:32 14.1 % F 11.0-15.0 Hematocrit [Volume Fraction] of Blood by Automated count 2023-12-30 16:05:32 35.7 % F 41.0-53.0 Erythrocytes [#/volume] in Blood by Automated count 2023-12-30 16:05:32 3.44 x 10'6 cells/uL F 4.6-6.2 Hemoglobin [Mass/volume] in Blood 2023-12-30 16:05:32 11.5 g/dL F 14.0-18.0 MCV [Entitic volume] by Automated count 2023-12-30 16:05:32 103.9 fL F 80.0-100.0 MCH [Entitic mass] by Automated count 2023-12-30 16:05:32 33.4 pg F 25.9-34.2 Platelets [#/volume] in Blood by Automated count 2023-12-30 16:05:32 211 x 10^3 cells/uL F 140.0-450.0 MCHC [Mass/volume] by Automated count 2023-12-30 16:05:32 32.1 g/dL F 29.6-35.3 HCT CALC HGBX3 2023-12-02 22:00:58 34.2 % F 42.0-52.0 Erythrocytes [#/volume] in Blood by Automated count 2023-12-02 22:00:25 3.37 x 10'6 cells/uL F 4.6-6.2 Erythrocyte distribution width [Ratio] by Automated count 2023-12-02 22:00:25 13.2 % F 11.0-15.0 Hemoglobin [Mass/volume] in Blood 2023-12-02 22:00:25 11.4 g/dL F 14.0-18.0 MCH [Entitic mass] by Automated count 2023-12-02 22:00:25 33.7 pg F 25.9-34.2 MCHC [Mass/volume] by Automated count 2023-12-02 22:00:25 33 g/dL F 29.6-35.3 Hematocrit [Volume Fraction] of Blood by Automated count 2023-12-02 22:00:25 34.4 % F 41.0-53.0 MCV [Entitic volume] by Automated count 2023-12-02 22:00:25 102.1 fL F 80.0-100.0 Platelets [#/volume] in Blood by Automated count 2023-12-02 22:00:25 215 x 10^3 cells/uL F 140.0-450.0 HCT CALC HGBX3 2023-11-04 17:07:38 32.4 % F 42.0-52.0 HCT CALC HGBX3 2023-11-04 17:07:38 32.4 % F 42.0-52.0 MCH [Entitic mass] by Automated count 2023-11-04 17:07:28 33.9 pg F 25.9-34.2 MCHC [Mass/volume] by Automated count 2023-11-04 17:07:28 32.1 g/dL F 29.6-35.3 Hematocrit [Volume Fraction] of Blood by Automated count 2023-11-04 17:07:28 33.8 % F 41.0-53.0 MCV [Entitic volume] by Automated count 2023-11-04 17:07:28 105.7 fL F 80.0-100.0 Platelets [#/volume] in Blood by Automated count 2023-11-04 17:07:28 221 x 10'3 cells/uL F 140.0-450.0 Erythrocyte distribution width [Ratio] by Automated count 2023-11-04 17:07:28 13.9 % F 11.0-15.0 Hemoglobin [Mass/volume] in Blood 2023-11-04 17:07:28 10.8 g/dL F 14.0-18.0 MCV [Entitic volume] by Automated count 2023-11-04 17:07:28 105.7 fL F 80.0-100.0 Hematocrit [Volume Fraction] of Blood by Automated count 2023-11-04 17:07: 33.8 % F 41.0-53.0 MCH [Entitic mass] by Automated count 2023-11-04 17:07: 33.9 pg F 25.9-34.2 Erythrocytes [#/volume] in Blood by Automated count 2023-11-04 17:07:28 3.2 x 10'6 cells/uL F 4.6-6.2 MCHC [Mass/volume] by Automated count 2023-11-04 17:07:28 32.1 g/dL F 29.6-35.3 Platelets [#/volume] in Blood by Automated count 2023-11-04 17:07:28 221 x 10^3 cells/uL F 140.0-450.0 Erythrocytes [#/volume] in Blood by Automated count 2023-11-04 17:07:28 3.2 x 10'6 cells/uL F 4.6-6.2 Erythrocyte distribution width [Ratio] by Automated count 2023-11-04 17:07:28 13.9 % F 11.0-15.0 Hemoglobin [Mass/volume] in Blood 2023-11-04 17:07:28 10.8 g/dL F 14.0-18.0 Ferritin [Mass/volume] in Serum or Plasma 2023-10-01 05:47:29 367 ng/mL F 22.0-322.0 IRON SATURATION 2023-10-01 04:05:12 23 % F 21.0-49.0 TIBC 2023-10-01 04:05:12 246 ug/dL F 250.0-425.0 Iron [Mass/volume] in Serum or Plasma 2023-10-01 03:58:57 56 ug/dL F 65.0-175.0 Iron binding capacity.unsaturated [Mass/volume] in Serum or Plasma 2023-10-01 03:58:34 190 ug/dL F 75.0-360.0 HCT CALC HGBX3 2023-09-30 20:21:44 33.9 % F 42.0-52.0 Erythrocyte distribution width [Ratio] by Automated count 2023-09-30 20:21:42 14.1 % F 11.0-15.0 Platelets [#/volume] in Blood by Automated count 2023-09-30 20:21:42 256 x 10^3 cells/uL F 140.0-450.0 Erythrocytes [#/volume] in Blood by Automated count 2023-09-30 20:21:40 3.42 x 10'6 cells/uL F 4.6-6.2 MCH [Entitic mass] by Automated count 2023-09-30 20:21:40 33.2 pg F 25.9-34.2 Hemoglobin [Mass/volume] in Blood 2023-09-30 20:21:40 11.3 g/dL F 14.0-18.0 MCHC [Mass/volume] by Automated count 2023-09-30 20:21:40 31.8 g/dL F 29.6-35.3 Hematocrit [Volume Fraction] of Blood by Automated count 2023-09-30 20:21:40 35.7 % F 41.0-53.0 MCV [Entitic volume] by Automated count 2023-09-30 20:21:40 104.4 fL F 80.0-100.0 HCT CALC HGBX3 2023-09-02 21:25:00 35.7 % F 42.0-52.0 Erythrocytes [#/volume] in Blood by Automated count 2023-09-02 21:24:27 3.64 x 10'6 cells/uL F 4.6-6.2 Erythrocyte distribution width [Ratio] by Automated count 2023-09-02 21:24:27 15.8 % F 11.0-15.0 Hemoglobin [Mass/volume] in Blood 2023-09-02 21:24:27 11.9 g/dL F 14.0-18.0 MCH [Entitic mass] by Automated count 2023-09-02 21:24:27 32.8 pg F 25.9-34.2 MCHC [Mass/volume] by Automated count 2023-09-02 21:24:27 30.5 g/dL F 29.6-35.3 Hematocrit [Volume Fraction] of Blood by Automated count 2023-09-02 21:24:27 39.1 % F 41.0-53.0 MCV [Entitic volume] by Automated count 2023-09-02 21:24:27 107.5 fL F 80.0-100.0 Platelets [#/volume] in Blood by Automated count 2023-09-02 21:24:27 323 x 10^3 cells/uL F 140.0-450.0 Ferritin [Mass/volume] in Serum or Plasma 2023-08-13 06:39:51 415 ng/mL F 22.0-322.0 IRON SATURATION 2023-08-13 06:14:20 26 % F 21.0-49.0 TIBC 2023-08-13 06:14:20 222 ug/dL F 250.0-425.0 Iron [Mass/volume] in Serum or Plasma 2023-08-13 06:06:30 58 ug/dL F 65.0-175.0 Iron binding capacity.unsaturated [Mass/volume] in Serum or Plasma 2023-08-13 06:06:30 164 ug/dL F 75.0-360.0 HCT CALC HGBX3 2023-08-12 20:02:10 35.1 % F 42.0-52.0 Hemoglobin [Mass/volume] in Blood 2023-08-12 20:01:57 11.7 g/dL F 14.0-18.0 HCT CALC HGBX3 2023-08-05 16:31:52 37.2 % F 42.0-52.0 HCT CALC HGBX3 2023-08-05 16:31:52 37.2 % F 42.0-52.0 Platelets [#/volume] in Blood by Automated count 2023-08-05 16:31:50 240 x 10^3 cells/uL F 140.0-450.0 Platelets [#/volume] in Blood by Automated count 2023-08-05 16:31:50 240 x 10'3 cells/uL F 140.0-450.0 Erythrocyte distribution width [Ratio] by Automated count 2023-08-05 16:31:48 16.8 % F 11.0-15.0 MCV [Entitic volume] by Automated count 2023-08-05 16:31:48 105.7 fL F 80.0-100.0 MCH [Entitic mass] by Automated count 2023-08-05 16:31:48 32.6 pg F 25.9-34.2 MCHC [Mass/volume] by Automated count 2023-08-05 16:31:48 30.8 g/dL F 29.6-35.3 Erythrocyte distribution width [Ratio] by Automated count 2023-08-05 16:31:48 16.8 % F 11.0-15.0 MCH [Entitic mass] by Automated count 2023-08-05 16:31:48 32.6 pg F 25.9-34.2 MCHC [Mass/volume] by Automated count 2023-08-05 16:31:48 30.8 g/dL F 29.6-35.3 MCV [Entitic volume] by Automated count 2023-08-05 16:31:48 105.7 fL F 80.0-100.0 Hematocrit [Volume Fraction] of Blood by Automated count 2023-08-05 16:31:46 40.2 % F 41.0-53.0 Erythrocytes [#/volume] in Blood by Automated count 2023-08-05 16:31:46 3.8 x 10'6 cells/uL F 4.6-6.2 Erythrocytes [#/volume] in Blood by Automated count 2023-08-05 16:31:46 3.8 x 10'6 cells/uL F 4.6-6.2 Hematocrit [Volume Fraction] of Blood by Automated count 2023-08-05 16:31:46 40.2 % F 41.0-53.0 Hemoglobin [Mass/volume] in Blood 2023-08-05 16:31:45 12.4 g/dL F 14.0-18.0 Hemoglobin [Mass/volume] in Blood 2023-08-05 16:31:45 12.4 g/dL F 14.0-18.0 HCT CALC HGBX3 2023-07-31 17:32:28 37.2 % F 42.0-52.0 HCT CALC HGBX3 2023-07-31 17:32:28 37.2 % F 42.0-52.0 Reticulocytes/100 erythrocytes in Blood by Automated count 2023-07-31 17:31:42 1.27 % F 0.7-2.5 Reticulocytes/100 erythrocytes in Blood by Automated count 2023-07-31 17:31:42 1.27 % F 0.7-2.5 Erythrocyte distribution width [Ratio] by Automated count 2023-07-31 17:31:40 16.1 % F 11.0-15.0 Platelets [#/volume] in Blood by Automated count 2023-07-31 17:31:40 203 x 10'3 cells/uL F 140.0-450.0 Erythrocyte distribution width [Ratio] by Automated count 2023-07-31 17:31:40 16.1 % F 11.0-15.0 Platelets [#/volume] in Blood by Automated count 2023-07-31 17:31:40 203 x 10^3 cells/uL F 140.0-450.0 MCH [Entitic mass] by Automated count 2023-07-31 17:31:37 32.3 pg F 25.9-34.2 MCHC [Mass/volume] by Automated count 2023-07-31 17:31:37 30 g/dL F 29.6-35.3 MCV [Entitic volume] by Automated count 2023-07-31 17:31:37 107.4 fL F 80.0-100.0 MCH [Entitic mass] by Automated count 2023-07-31 17:31:37 32.3 pg F 25.9-34.2 MCV [Entitic volume] by Automated count 2023-07-31 17:31:37 107.4 fL F 80.0-100.0 MCHC [Mass/volume] by Automated count 2023-07-31 17:31:37 30 g/dL F 29.6-35.3 Erythrocytes [#/volume] in Blood by Automated count 2023-07-31 17:31:35 3.86 x 10'6 cells/uL F 4.6-6.2 Hemoglobin [Mass/volume] in Blood 2023-07-31 17:31:35 12.4 g/dL F 14.0-18.0 Hematocrit [Volume Fraction] of Blood by Automated count 2023-07-31 17:31:35 41.4 % F 41.0-53.0 Erythrocytes [#/volume] in Blood by Automated count 2023-07-31 17:31:35 3.86 x 10'6 cells/uL F 4.6-6.2 Hematocrit [Volume Fraction] of Blood by Automated count 2023-07-31 17:31:35 41.4 % F 41.0-53.0 Hemoglobin [Mass/volume] in Blood 2023-07-31 17:31:35 12.4 g/dL F 14.0-18.0 HCT CALC HGBX3 2023-07-10 19:56:08 36.3 % F 42.0-52.0 Reticulocytes/100 erythrocytes in Blood by Automated count 2023-07-10 19:55:28 2.08 % F 0.7-2.5 Erythrocytes [#/volume] in Blood by Automated count 2023-07-10 19:55:28 3.74 x 10'6 cells/uL F 4.6-6.2 Erythrocyte distribution width [Ratio] by Automated count 2023-07-10 19:55:28 17.1 % F 11.0-15.0 Hemoglobin [Mass/volume] in Blood 2023-07-10 19:55:28 12.1 g/dL F 14.0-18.0 MCH [Entitic mass] by Automated count 2023-07-10 19:55:28 32.3 pg F 25.9-34.2 MCHC [Mass/volume] by Automated count 2023-07-10 19:55:28 30.6 g/dL F 29.6-35.3 Hematocrit [Volume Fraction] of Blood by Automated count 2023-07-10 19:55:28 39.4 % F 41.0-53.0 MCV [Entitic volume] by Automated count 2023-07-10 19:55:28 105.5 fL F 80.0-100.0 Platelets [#/volume] in Blood by Automated count 2023-07-10 19:55:28 300 x 10^3 cells/uL F 140.0-450.0 IRON SATURATION 2023-05-30 04:15:51 20 % F 21.0-49.0 TIBC 2023-05-30 04:15:51 256 ug/dL F 250.0-425.0 Iron binding capacity.unsaturated [Mass/volume] in Serum or Plasma 2023-05-30 04:14:20 206 ug/dL F 75.0-360.0 Iron [Mass/volume] in Serum or Plasma 2023-05-30 04:14:20 50 ug/dL F 65.0-175.0 Ferritin [Mass/volume] in Serum or Plasma 2023-05-29 17:25:56 195 ng/mL F 22.0-322.0 HCT CALC HGBX3 2023-05-29 16:27:11 34.5 % F 42.0-52.0 Reticulocytes/100 erythrocytes in Blood by Automated count 2023-05-29 16:26:37 1.92 % F 0.7-2.5 Erythrocytes [#/volume] in Blood by Automated count 2023-05-29 16:26:37 3.64 x 10'6 cells/uL F 4.6-6.2 Erythrocyte distribution width [Ratio] by Automated count 2023-05-29 16:26:37 15.9 % F 11.0-15.0 Hemoglobin [Mass/volume] in Blood 2023-05-29 16:26:37 11.5 g/dL F 14.0-18.0 MCHC [Mass/volume] by Automated count 2023-05-29 16:26:37 30.8 g/dL F 29.6-35.3 Hematocrit [Volume Fraction] of Blood by Automated count 2023-05-29 16:26:37 37.2 % F 41.0-53.0 MCH [Entitic mass] by Automated count 2023-05-29 16:26:37 31.5 pg F 25.9-34.2 MCV [Entitic volume] by Automated count 2023-05-29 16:26:37 102.1 fL F 80.0-100.0 Platelets [#/volume] in Blood by Automated count 2023-05-29 16:26:37 153 x 10^3 cells/uL F 140.0-450.0 HCT CALC HGBX3 2023-04-24 19:27:42 36.9 % F 42.0-52.0 Reticulocytes/100 erythrocytes in Blood by Automated count 2023-04-24 19:27:32 3.7 % F 0.7-2.5 Erythrocytes [#/volume] in Blood by Automated count 2023-04-24 19:27:32 4.04 x 10'6 cells/uL F 4.6-6.2 Erythrocyte distribution width [Ratio] by Automated count 2023-04-24 19:27:32 16.1 % F 11.0-15.0 Hemoglobin [Mass/volume] in Blood 2023-04-24 19:27:32 12.3 g/dL F 14.0-18.0 Hematocrit [Volume Fraction] of Blood by Automated count 2023-04-24 19:27:32 40.8 % F 41.0-53.0 MCHC [Mass/volume] by Automated count 2023-04-24 19:27:32 30.1 g/dL F 29.6-35.3 MCH [Entitic mass] by Automated count 2023-04-24 19:27:32 30.5 pg F 25.9-34.2 MCV [Entitic volume] by Automated count 2023-04-24 19:27:32 101.1 fL F 80.0-100.0 Platelets [#/volume] in Blood by Automated count 2023-04-24 19:27:32 185 x 10^3 cells/uL F 140.0-450.0 HCT CALC HGBX3 2023-03-27 18:54:37 33.6 % F 42.0-52.0 HCT CALC HGBX3 2023-03-27 18:54:37 33.6 % F 42.0-52.0 Reticulocytes/100 erythrocytes in Blood by Automated count 2023-03-27 18:54:32 2.04 % F 0.7-2.5 Erythrocytes [#/volume] in Blood by Automated count 2023-03-27 18:54:32 3.77 x 10'6 cells/uL F 4.6-6.2 Erythrocytes [#/volume] in Blood by Automated count 2023-03-27 18:54:32 3.77 x 10'6 cells/uL F 4.6-6.2 Reticulocytes/100 erythrocytes in Blood by Automated count 2023-03-27 18:54:32 2.04 % F 0.7-2.5 Hemoglobin [Mass/volume] in Blood 2023-03-27 18:54:30 11.2 g/dL F 14.0-18.0 Erythrocyte distribution width [Ratio] by Automated count 2023-03-27 18:54:30 15.3 % F 11.0-15.0 MCH [Entitic mass] by Automated count 2023-03-27 18:54:30 29.8 pg F 25.9-34.2 MCHC [Mass/volume] by Automated count 2023-03-27 18:54:30 30.2 g/dL F 29.6-35.3 Hematocrit [Volume Fraction] of Blood by Automated count 2023-03-27 18:54:30 37.2 % F 41.0-53.0 MCV [Entitic volume] by Automated count 2023-03-27 18:54:30 98.7 fL F 80.0-100.0 Platelets [#/volume] in Blood by Automated count 2023-03-27 18:54:30 175 x 10'3 cells/uL F 140.0-450.0 Erythrocyte distribution width [Ratio] by Automated count 2023-03-27 18:54:30 15.3 % F 11.0-15.0 Hematocrit [Volume Fraction] of Blood by Automated count 2023-03-27 18:54:30 37.2 % F 41.0-53.0 MCV [Entitic volume] by Automated count 2023-03-27 18:54:30 98.7 fL F 80.0-100.0 MCH [Entitic mass] by Automated count 2023-03-27 18:54:30 29.8 pg F 25.9-34.2 MCHC [Mass/volume] by Automated count 2023-03-27 18:54:30 30.2 g/dL F 29.6-35.3 Hemoglobin [Mass/volume] in Blood 2023-03-27 18:54:30 11.2 g/dL F 14.0-18.0 Platelets [#/volume] in Blood by Automated count 2023-03-27 18:54:30 175 x 10^3 cells/uL F 140.0-450.0 HCT CALC HGBX3 2023-02-28 01:11:22 33 % F 42.0-52.0 HCT CALC HGBX3 2023-02-28 01:11:22 33 % F 42.0-52.0 Reticulocytes/100 erythrocytes in Blood by Automated count 2023-02-28 01:10:33 1.9 % F 0.7-2.5 Erythrocytes [#/volume] in Blood by Automated count 2023-02-28 01:10:33 3.7 x 10'6 cells/uL F 4.6-6.2 Erythrocyte distribution width [Ratio] by Automated count 2023-02-28 01:10:33 14.6 % F 11.0-15.0 Hemoglobin [Mass/volume] in Blood 2023-02-28 01:10:33 11 g/dL F 14.0-18.0 MCH [Entitic mass] by Automated count 2023-02-28 01:10:33 29.8 pg F 25.9-34.2 Hematocrit [Volume Fraction] of Blood by Automated count 2023-02-28 01:10:33 36.9 % F 41.0-53.0 MCHC [Mass/volume] by Automated count 2023-02-28 01:10:33 29.9 g/dL F 29.6-35.3 MCV [Entitic volume] by Automated count 2023-02-28 01:10:33 99.6 fL F 80.0-100.0 Platelets [#/volume] in Blood by Automated count 2023-02-28 01:10:33 210 x 10'3 cells/uL F 140.0-450.0 Erythrocyte distribution width [Ratio] by Automated count 2023-02-28 01:10:33 14.6 % F 11.0-15.0 Erythrocytes [#/volume] in Blood by Automated count 2023-02-28 01:10:33 3.7 x 10'6 cells/uL F 4.6-6.2 Hemoglobin [Mass/volume] in Blood 2023-02-28 01:10:33 11 g/dL F 14.0-18.0 MCV [Entitic volume] by Automated count 2023-02-28 01:10:33 99.6 fL F 80.0-100.0 MCH [Entitic mass] by Automated count 2023-02-28 01:10:33 29.8 pg F 25.9-34.2 Hematocrit [Volume Fraction] of Blood by Automated count 2023-02-28 01:10:33 36.9 % F 41.0-53.0 Platelets [#/volume] in Blood by Automated count 2023-02-28 01:10:33 210 x 10^3 cells/uL F 140.0-450.0 MCHC [Mass/volume] by Automated count 2023-02-28 01:10:33 29.9 g/dL F 29.6-35.3 Reticulocytes/100 erythrocytes in Blood by Automated count 2023-02-28 01:10:33 1.9 % F 0.7-2.5 IRON SATURATION 2023-01-31 05:39:38 14 % F 21.0-49.0 TIBC 2023-01-31 05:39:38 279 ug/dL F 250.0-425.0 IRON SATURATION 2023-01-31 05:39:38 14 % F 21.0-49.0 TIBC 2023-01-31 05:39:38 279 ug/dL F 250.0-425.0 Iron [Mass/volume] in Serum or Plasma 2023-01-31 05:25:49 38 ug/dL F 65.0-175.0 Iron binding capacity.unsaturated [Mass/volume] in Serum or Plasma 2023-01-31 05:25:49 241 ug/dL F 75.0-360.0 Iron [Mass/volume] in Serum or Plasma 2023-01-31 05:25:49 38 ug/dL F 65.0-175.0 Iron binding capacity.unsaturated [Mass/volume] in Serum or Plasma 2023-01-31 05:25:49 241 ug/dL F 75.0-360.0 Ferritin [Mass/volume] in Serum or Plasma 2023-01-30 23:04:37 66 ng/mL F 22.0-322.0 Ferritin [Mass/volume] in Serum or Plasma 2023-01-30 23:04:37 66 ng/mL F 22.0-322.0 HCT CALC HGBX3 2023-01-30 17:30:48 30 % F 42.0-52.0 HCT CALC HGBX3 2023-01-30 17:30:48 30 % F 42.0-52.0 Reticulocytes/100 erythrocytes in Blood by Automated count 2023-01-30 17:30:41 2.48 % F 0.7-2.5 Erythrocytes [#/volume] in Blood by Automated count 2023-01-30 17:30:41 3.15 x 10'6 cells/uL F 4.6-6.2 Hemoglobin [Mass/volume] in Blood 2023-01-30 17:30:41 10 g/dL F 14.0-18.0 Erythrocyte distribution width [Ratio] by Automated count 2023-01-30 17:30:41 15 % F 11.0-15.0 MCH [Entitic mass] by Automated count 2023-01-30 17:30:41 31.8 pg F 25.9-34.2 MCHC [Mass/volume] by Automated count 2023-01-30 17:30:41 31.5 g/dL F 29.6-35.3 Hematocrit [Volume Fraction] of Blood by Automated count 2023-01-30 17:30:41 31.8 % F 41.0-53.0 MCV [Entitic volume] by Automated count 2023-01-30 17:30:41 101 fL F 80.0-100.0 Platelets [#/volume] in Blood by Automated count 2023-01-30 17:30:41 200 x 10'3 cells/uL F 140.0-450.0 Erythrocyte distribution width [Ratio] by Automated count 2023-01-30 17:30:41 15 % F 11.0-15.0 Hematocrit [Volume Fraction] of Blood by Automated count 2023-01-30 17:30:41 31.8 % F 41.0-53.0 Erythrocytes [#/volume] in Blood by Automated count 2023-01-30 17:30:41 3.15 x 10'6 cells/uL F 4.6-6.2 MCV [Entitic volume] by Automated count 2023-01-30 17:30:41 101 fL F 80.0-100.0 Hemoglobin [Mass/volume] in Blood 2023-01-30 17:30:41 10 g/dL F 14.0-18.0 MCH [Entitic mass] by Automated count 2023-01-30 17:30:41 31.8 pg F 25.9-34.2 MCHC [Mass/volume] by Automated count 2023-01-30 17:30:41 31.5 g/dL F 29.6-35.3 Platelets [#/volume] in Blood by Automated count 2023-01-30 17:30:41 200 x 10^3 cells/uL F 140.0-450.0 Reticulocytes/100 erythrocytes in Blood by Automated count 2023-01-30 17:30:41 2.48 % F 0.7-2.5 IRON SATURATION 2022-12-20 19:03:25 7 % F 21.0-49.0 TIBC 2022-12-20 19:03:25 262 ug/dL F 250.0-425.0 Iron [Mass/volume] in Serum or Plasma 2022-12-20 19:01:38 18 ug/dL F 65.0-175.0 Iron binding capacity.unsaturated [Mass/volume] in Serum or Plasma 2022-12-20 19:01:38 244 ug/dL F 75.0-360.0 Ferritin [Mass/volume] in Serum or Plasma 2022-12-20 06:22:19 104 ng/mL F 22.0-322.0 HCT CALC HGBX3 2022-12-19 23:38:35 27.9 % F 42.0-52.0 Reticulocytes/100 erythrocytes in Blood by Automated count 2022-12-19 23:37:26 2.22 % F 0.7-2.5 Erythrocytes [#/volume] in Blood by Automated count 2022-12-19 23:37:26 2.97 x 10'6 cells/uL F 4.6-6.2 Hemoglobin [Mass/volume] in Blood 2022-12-19 23:37:26 9.3 g/dL F 14.0-18.0 Erythrocyte distribution width [Ratio] by Automated count 2022-12-19 23:37:26 14.8 % F 11.0-15.0 MCHC [Mass/volume] by Automated count 2022-12-19 23:37:26 30.5 g/dL F 29.6-35.3 Hematocrit [Volume Fraction] of Blood by Automated count 2022-12-19 23:37:26 30.6 % F 41.0-53.0 MCH [Entitic mass] by Automated count 2022-12-19 23:37:26 31.4 pg F 25.9-34.2 MCV [Entitic volume] by Automated count 2022-12-19 23:37:26 102.9 fL F 80.0-100.0 Platelets [#/volume] in Blood by Automated count 2022-12-19 23:37:26 178 x 10^3 cells/uL F 140.0-450.0 IRON SATURATION 2022-08-06 18:22:57 26 % F 21.0-49.0 HCT CALC HGBX3 2022-08-06 18:22:57 32.4 % F 42.0-52.0 TIBC 2022-08-06 18:22:57 237 ug/dL F 250.0-425.0 IRON SATURATION 2022-08-06 18:22:57 26 % F 21.0-49.0 HCT CALC HGBX3 2022-08-06 18:22:57 32.4 % F 42.0-52.0 TIBC 2022-08-06 18:22:57 237 ug/dL F 250.0-425.0 Reticulocytes/100 erythrocytes in Blood by Automated count 2022-08-06 18:21:55 1.27 % F 0.8-2.1 Erythrocytes [#/volume] in Blood by Automated count 2022-08-06 18:21:55 3.35 x 10'6 cells/uL F 4.6-6.2 Erythrocyte distribution width [Ratio] by Automated count 2022-08-06 18:21:55 13.3 % F 11.0-15.0 Hemoglobin [Mass/volume] in Blood 2022-08-06 18:21:55 10.8 g/dL F 14.0-18.0 MCH [Entitic mass] by Automated count 2022-08-06 18:21:55 32.3 pg F 27.0-31.0 MCHC [Mass/volume] by Automated count 2022-08-06 18:21:55 31.4 g/dL F 32.0-36.0 Hematocrit [Volume Fraction] of Blood by Automated count 2022-08-06 18:21:55 34.4 % F 42.0-52.0 MCV [Entitic volume] by Automated count 2022-08-06 18:21:55 102.8 fL F 80.0-100.0 Platelets [#/volume] in Blood by Automated count 2022-08-06 18:21:55 261 x 10'3 cells/uL F 150.0-400.0 Erythrocyte distribution width [Ratio] by Automated count 2022-08-06 18:21:55 13.3 % F 11.0-15.0 Erythrocytes [#/volume] in Blood by Automated count 2022-08-06 18:21:55 3.35 x 10'6 cells/uL F 4.6-6.2 Hematocrit [Volume Fraction] of Blood by Automated count 2022-08-06 18:21:55 34.4 % F 42.0-52.0 Hemoglobin [Mass/volume] in Blood 2022-08-06 18:21:55 10.8 g/dL F 14.0-18.0 MCV [Entitic volume] by Automated count 2022-08-06 18:21:55 102.8 fL F 80.0-100.0 MCH [Entitic mass] by Automated count 2022-08-06 18:21:55 32.3 pg F 27.0-31.0 MCHC [Mass/volume] by Automated count 2022-08-06 18:21:55 31.4 g/dL F 32.0-36.0 Platelets [#/volume] in Blood by Automated count 2022-08-06 18:21:55 261 x 10^3 cells/uL F 150.0-400.0 Reticulocytes/100 erythrocytes in Blood by Automated count 2022-08-06 18:21:55 1.27 % F 0.8-2.1 Iron [Mass/volume] in Serum or Plasma 2022-08-06 17:43:59 61 ug/dL F 65.0-175.0 Iron binding capacity.unsaturated [Mass/volume] in Serum or Plasma 2022-08-06 17:43:59 176 ug/dL F 75.0-360.0 Iron [Mass/volume] in Serum or Plasma 2022-08-06 17:43:59 61 ug/dL F 65.0-175.0 Iron binding capacity.unsaturated [Mass/volume] in Serum or Plasma 2022-08-06 17:43:59 176 ug/dL F 75.0-360.0 Ferritin [Mass/volume] in Serum or Plasma 2022-08-06 15:23:53 113 ng/mL F 22.0-322.0 Ferritin [Mass/volume] in Serum or Plasma 2022-08-06 15:23:53 113 ng/mL F 22.0-322.0 HCT CALC HGBX3 2022-06-27 18:18:18 32.1 % F 42.0-52.0 Reticulocytes/100 erythrocytes in Blood by Automated count 2022-06-27 18:17:58 1.51 % F 0.8-2.1 Erythrocytes [#/volume] in Blood by Automated count 2022-06-27 18:17:58 3.24 x 10'6 cells/uL F 4.6-6.2 Erythrocyte distribution width [Ratio] by Automated count 2022-06-27 18:17:58 14.4 % F 11.0-15.0 Hemoglobin [Mass/volume] in Blood 2022-06-27 18:17:58 10.7 g/dL F 14.0-18.0 MCHC [Mass/volume] by Automated count 2022-06-27 18:17:58 33 g/dL F 32.0-36.0 MCH [Entitic mass] by Automated count 2022-06-27 18:17:58 33.2 pg F 27.0-31.0 Hematocrit [Volume Fraction] of Blood by Automated count 2022-06-27 18:17:58 32.5 % F 42.0-52.0 MCV [Entitic volume] by Automated count 2022-06-27 18:17:58 100.4 fL F 80.0-100.0 Platelets [#/volume] in Blood by Automated count 2022-06-27 18:17:58 327 x 10^3 cells/uL F 150.0-400.0 HCT CALC HGBX3 2022-05-24 00:54:25 29.7 % F 42.0-52.0 HCT CALC HGBX3 2022-05-24 00:54:25 29.7 % F 42.0-52.0 Erythrocyte distribution width [Ratio] by Automated count 2022-05-24 00:53:33 14.8 % F 11.0-15.0 Erythrocytes [#/volume] in Blood by Automated count 2022-05-24 00:53:33 3 x 10'6 cells/uL F 4.6-6.2 Hematocrit [Volume Fraction] of Blood by Automated count 2022-05-24 00:53:33 30.7 % F 42.0-52.0 Hemoglobin [Mass/volume] in Blood 2022-05-24 00:53:33 9.9 g/dL F 14.0-18.0 MCV [Entitic volume] by Automated count 2022-05-24 00:53:33 102.6 fL F 80.0-100.0 MCHC [Mass/volume] by Automated count 2022-05-24 00:53:33 32.2 g/dL F 32.0-36.0 Platelets [#/volume] in Blood by Automated count 2022-05-24 00:53:33 301 x 10^3 cells/uL F 150.0-400.0 MCH [Entitic mass] by Automated count 2022-05-24 00:53:33 33.1 pg F 27.0-31.0 Reticulocytes/100 erythrocytes in Blood by Automated count 2022-05-24 00:53:33 1.69 % F 0.8-2.1 Reticulocytes/100 erythrocytes in Blood by Automated count 2022-05-24 00:53:33 1.69 % F 0.8-2.1 Erythrocytes [#/volume] in Blood by Automated count 2022-05-24 00:53:33 3 x 10'6 cells/uL F 4.6-6.2 Erythrocyte distribution width [Ratio] by Automated count 2022-05-24 00:53:33 14.8 % F 11.0-15.0 Hemoglobin [Mass/volume] in Blood 2022-05-24 00:53:33 9.9 g/dL F 14.0-18.0 MCHC [Mass/volume] by Automated count 2022-05-24 00:53:33 32.2 g/dL F 32.0-36.0 MCH [Entitic mass] by Automated count 2022-05-24 00:53:33 33.1 pg F 27.0-31.0 Hematocrit [Volume Fraction] of Blood by Automated count 2022-05-24 00:53:33 30.7 % F 42.0-52.0 MCV [Entitic volume] by Automated count 2022-05-24 00:53:33 102.6 fL F 80.0-100.0 Platelets [#/volume] in Blood by Automated count 2022-05-24 00:53:33 301 x 10'3 cells/uL F 150.0-400.0 IRON SATURATION 2022-05-24 00:19:00 12 % F 21.0-49.0 TIBC 2022-05-24 00:19:00 280 ug/dL F 250.0-425.0 IRON SATURATION 2022-05-24 00:19:00 12 % F 21.0-49.0 TIBC 2022-05-24 00:19:00 280 ug/dL F 250.0-425.0 Ferritin [Mass/volume] in Serum or Plasma 2022-05-24 00:18:52 96 ng/mL F 22.0-322.0 Ferritin [Mass/volume] in Serum or Plasma 2022-05-24 00:18:52 96 ng/mL F 22.0-322.0 Iron [Mass/volume] in Serum or Plasma 2022-05-23 23:31:32 34 ug/dL F 65.0-175.0 Iron binding capacity.unsaturated [Mass/volume] in Serum or Plasma 2022-05-23 23:31:32 246 ug/dL F 75.0-360.0 Iron [Mass/volume] in Serum or Plasma 2022-05-23 23:31:32 34 ug/dL F 65.0-175.0 Iron binding capacity.unsaturated [Mass/volume] in Serum or Plasma 2022-05-23 23:31:32 246 ug/dL F 75.0-360.0 Hemoglobin [Mass/volume] in Blood TIBC IRON SATURATION Iron binding capacity.unsaturated [Mass/volume] in Serum or Plasma Iron [Mass/volume] in Serum or Plasma Iron [Mass/volume] in Serum or Plasma IRON SATURATION TIBC Iron binding capacity.unsaturated [Mass/volume] in Serum or Plasma Ferritin [Mass/volume] in Serum or Plasma Ferritin [Mass/volume] in Serum or Plasma Comorbidities Description Draw Date Result/Unit Status Ref Range Result Comments Hemoglobin A1c/Hemoglobin.total in Blood 2023-05-30 06:34:52 8.6 %A1c F 0.0-5.6 Hemoglobin A1c/Hemoglobin.total in Blood 2022-12-20 02:56:16 8.7 %A1c F 0.0-5.6 FluidBP Description Draw Date Result/Unit Status Ref Range Result Comments Sodium [Moles/volume] in Serum or Plasma 2024-06-02 04:56:01 138 mEq/L F 132.0-146.0 Sodium [Moles/volume] in Serum or Plasma 2024-05-05 03:53:40 136 mEq/L F 132.0-146.0 Sodium [Moles/volume] in Serum or Plasma 2024-05-05 03:53:40 136 mEq/L F 132.0-146.0 Sodium [Moles/volume] in Serum or Plasma 2024-04-06 17:52:08 137 mEq/L F 132.0-146.0 Sodium [Moles/volume] in Serum or Plasma 2024-03-03 04:17:16 135 mEq/L F 132.0-146.0 Sodium [Moles/volume] in Serum or Plasma 2024-02-03 18:28:40 132 mEq/L F 132.0-146.0 Sodium [Moles/volume] in Serum or Plasma 2023-12-31 06:07:52 138 mEq/L F 132.0-146.0 Sodium [Moles/volume] in Serum or Plasma 2023-12-31 06:07:52 138 mEq/L F 132.0-146.0 Sodium [Moles/volume] in Serum or Plasma 2023-12-03 04:14:12 139 mEq/L F 132.0-146.0 Sodium [Moles/volume] in Serum or Plasma 2023-11-05 04:51:12 136 mEq/L F 132.0-146.0 Sodium [Moles/volume] in Serum or Plasma 2023-11-05 04:51:12 136 mEq/L F 132.0-146.0 Sodium [Moles/volume] in Serum or Plasma 2023-10-01 03:58:45 140 mEq/L F 132.0-146.0 Sodium [Moles/volume] in Serum or Plasma 2023-09-03 05:05:09 141 mEq/L F 132.0-146.0 Sodium [Moles/volume] in Serum or Plasma 2023-08-06 04:52:47 140 mEq/L F 132.0-146.0 Sodium [Moles/volume] in Serum or Plasma 2023-08-06 04:52:47 140 mEq/L F 132.0-146.0 Sodium [Moles/volume] in Serum or Plasma 2023-08-01 05:55:45 136 mEq/L F 132.0-146.0 Sodium [Moles/volume] in Serum or Plasma 2023-08-01 05:55:45 136 mEq/L F 132.0-146.0 Sodium [Moles/volume] in Serum or Plasma 2023-07-10 21:16:40 F Recollect - Unsp un specimen Sodium [Moles/volume] in Serum or Plasma 2023-05-30 04:14:20 135 mEq/L F 132.0-146.0 Sodium [Moles/volume] in Serum or Plasma 2023-04-24 23:09:39 136 mEq/L F 132.0-146.0 Sodium [Moles/volume] in Serum or Plasma 2023-03-27 16:17:35 138 mEq/L F 132.0-146.0 Sodium [Moles/volume] in Serum or Plasma 2023-03-27 16:17:35 138 mEq/L F 132.0-146.0 Sodium [Moles/volume] in Serum or Plasma 2023-02-27 17:53:34 136 mEq/L F 132.0-146.0 Sodium [Moles/volume] in Serum or Plasma 2023-02-27 17:53:34 136 mEq/L F 132.0-146.0 Sodium [Moles/volume] in Serum or Plasma 2023-01-30 22:43:25 140 mEq/L F 132.0-146.0 Sodium [Moles/volume] in Serum or Plasma 2023-01-30 22:43:25 140 mEq/L F 132.0-146.0 Sodium [Moles/volume] in Serum or Plasma 2022-12-20 13:55:13 137 mEq/L F 132.0-146.0 Sodium [Moles/volume] in Serum or Plasma 2022-08-06 15:00:59 138 mEq/L F 132.0-146.0 Sodium [Moles/volume] in Serum or Plasma 2022-08-06 15:00:59 138 mEq/L F 132.0-146.0 Sodium [Moles/volume] in Serum or Plasma 2022-06-28 00:23:52 140 mEq/L F 132.0-146.0 Sodium [Moles/volume] in Serum or Plasma 2022-05-23 20:51:42 141 mEq/L F 132.0-146.0 Sodium [Moles/volume] in Serum or Plasma 2022-05-23 20:51:42 141 mEq/L F 132.0-146.0 General Description Draw Date Result/Unit Status Ref Range Result Comments Chloride [Moles/volume] in Serum or Plasma 2024-06-02 04:56:01 108 mEq/L F 99.0-109.0 Alanine aminotransferase [Enzymatic activity/volume] in Serum or Plasma 2024-06-01 17:55:17 9 U/L F 10.0-49.0 Aspartate aminotransferase [Enzymatic activity/volume] in Serum or Plasma 2024-06-01 17:55:17 11 U/L F 0.0-33.0 Chloride [Moles/volume] in Serum or Plasma 2024-05-05 03:53:40 100 mEq/L F 99.0-109.0 Chloride [Moles/volume] in Serum or Plasma 2024-05-05 03:53:40 100 mEq/L F 99.0-109.0 Aspartate aminotransferase [Enzymatic activity/volume] in Serum or Plasma 2024-05-04 22:42:24 12 U/L F 0.0-33.0 Alanine aminotransferase [Enzymatic activity/volume] in Serum or Plasma 2024-05-04 22:42:24 10 U/L F 10.0-49.0 Alanine aminotransferase [Enzymatic activity/volume] in Serum or Plasma 2024-05-04 22:42:24 10 U/L F 10.0-49.0 Aspartate aminotransferase [Enzymatic activity/volume] in Serum or Plasma 2024-05-04 22:42:24 12 U/L F 0.0-33.0 Chloride [Moles/volume] in Serum or Plasma 2024-04-06 17:52:08 100 mEq/L F 99.0-109.0 Aspartate aminotransferase [Enzymatic activity/volume] in Serum or Plasma 2024-04-06 16:48:25 13 U/L F 0.0-33.0 Alanine aminotransferase [Enzymatic activity/volume] in Serum or Plasma 2024-04-06 16:48:25 11 U/L F 10.0-49.0 Chloride [Moles/volume] in Serum or Plasma 2024-03-03 04:17:16 98 mEq/L F 99.0-109.0 Aspartate aminotransferase [Enzymatic activity/volume] in Serum or Plasma 2024-03-02 15:27:19 15 U/L F 0.0-33.0 Alanine aminotransferase [Enzymatic activity/volume] in Serum or Plasma 2024-03-02 15:27:19 15 U/L F 10.0-49.0 Chloride [Moles/volume] in Serum or Plasma 2024-02-03 18:28:40 98 mEq/L F 99.0-109.0 Aspartate aminotransferase [Enzymatic activity/volume] in Serum or Plasma 2024-02-03 15:11:30 11 U/L F 0.0-33.0 Alanine aminotransferase [Enzymatic activity/volume] in Serum or Plasma 2024-02-03 15:11:30 12 U/L F 10.0-49.0 Chloride [Moles/volume] in Serum or Plasma 2023-12-31 06:07:52 103 mEq/L F 99.0-109.0 Chloride [Moles/volume] in Serum or Plasma 2023-12-31 06:07:52 103 mEq/L F 99.0-109.0 Aspartate aminotransferase [Enzymatic activity/volume] in Serum or Plasma 2023-12-30 18:38:42 15 U/L F 0.0-33.0 Alanine aminotransferase [Enzymatic activity/volume] in Serum or Plasma 2023-12-30 18:38:42 12 U/L F 10.0-49.0 Alanine aminotransferase [Enzymatic activity/volume] in Serum or Plasma 2023-12-30 18:38:42 12 U/L F 10.0-49.0 Aspartate aminotransferase [Enzymatic activity/volume] in Serum or Plasma 2023-12-30 18:38:42 15 U/L F 0.0-33.0 Chloride [Moles/volume] in Serum or Plasma 2023-12-03 04:14:12 104 mEq/L F 99.0-109.0 Aspartate aminotransferase [Enzymatic activity/volume] in Serum or Plasma 2023-12-02 16:53:35 16 U/L F 0.0-33.0 Alanine aminotransferase [Enzymatic activity/volume] in Serum or Plasma 2023-12-02 16:53:35 17 U/L F 10.0-49.0 Chloride [Moles/volume] in Serum or Plasma 2023-11-05 04:51:12 100 mEq/L F 99.0-109.0 Chloride [Moles/volume] in Serum or Plasma 2023-11-05 04:51:12 100 mEq/L F 99.0-109.0 Alanine aminotransferase [Enzymatic activity/volume] in Serum or Plasma 2023-11-04 17:42:37 17 U/L F 10.0-49.0 Aspartate aminotransferase [Enzymatic activity/volume] in Serum or Plasma 2023-11-04 17:42:37 17 U/L F 0.0-33.0 Aspartate aminotransferase [Enzymatic activity/volume] in Serum or Plasma 2023-11-04 17:42:37 17 U/L F 0.0-33.0 Alanine aminotransferase [Enzymatic activity/volume] in Serum or Plasma 2023-11-04 17:42:37 17 U/L F 10.0-49.0 Chloride [Moles/volume] in Serum or Plasma 2023-10-01 03:58:45 103 mEq/L F 99.0-109.0 Aspartate aminotransferase [Enzymatic activity/volume] in Serum or Plasma 2023-09-30 22:09:48 15 U/L F 0.0-33.0 Alanine aminotransferase [Enzymatic activity/volume] in Serum or Plasma 2023-09-30 22:09:48 17 U/L F 10.0-49.0 Chloride [Moles/volume] in Serum or Plasma 2023-09-03 05:05:09 104 mEq/L F 99.0-109.0 Aspartate aminotransferase [Enzymatic activity/volume] in Serum or Plasma 2023-09-02 19:59:25 12 U/L F 0.0-33.0 Alanine aminotransferase [Enzymatic activity/volume] in Serum or Plasma 2023-09-02 19:59:25 11 U/L F 10.0-49.0 Chloride [Moles/volume] in Serum or Plasma 2023-08-06 04:52:47 104 mEq/L F 99.0-109.0 Chloride [Moles/volume] in Serum or Plasma 2023-08-06 04:52:47 104 mEq/L F 99.0-109.0 Alanine aminotransferase [Enzymatic activity/volume] in Serum or Plasma 2023-08-05 19:19:33 9 U/L F 10.0-49.0 Aspartate aminotransferase [Enzymatic activity/volume] in Serum or Plasma 2023-08-05 19:19:33 9 U/L F 0.0-33.0 Aspartate aminotransferase [Enzymatic activity/volume] in Serum or Plasma 2023-08-05 19:19:33 9 U/L F 0.0-33.0 Alanine aminotransferase [Enzymatic activity/volume] in Serum or Plasma 2023-08-05 19:19:33 9 U/L F 10.0-49.0 Aluminum [Mass/volume] in Serum or Plasma 2023-08-05 17:46:16 10 ug/L F 0.0-9.0 Aluminum [Mass/volume] in Serum or Plasma 2023-08-05 17:46:16 10 ug/L F 0.0-9.0 Chloride [Moles/volume] in Serum or Plasma 2023-08-01 05:55:45 100 mEq/L F 99.0-109.0 Chloride [Moles/volume] in Serum or Plasma 2023-08-01 05:55:45 100 mEq/L F 99.0-109.0 Aspartate aminotransferase [Enzymatic activity/volume] in Serum or Plasma 2023-07-31 23:43:59 9 U/L F 0.0-33.0 Alanine aminotransferase [Enzymatic activity/volume] in Serum or Plasma 2023-07-31 23:43:59 9 U/L F 10.0-49.0 Alanine aminotransferase [Enzymatic activity/volume] in Serum or Plasma 2023-07-31 23:43:59 9 U/L F 10.0-49.0 Aspartate aminotransferase [Enzymatic activity/volume] in Serum or Plasma 2023-07-31 23:43:59 9 U/L F 0.0-33.0 Alanine aminotransferase [Enzymatic activity/volume] in Serum or Plasma 2023-07-10 21:16:40 F Recollect - Unspun specimen Chloride [Moles/volume] in Serum or Plasma 2023-07-10 21:16:40 F Recollect - Unspun specimen Aspartate aminotransferase [Enzymatic activity/volume] in Serum or Plasma 2023-07-10 21:16:40 F Recollect - Unspun specimen Chloride [Moles/volume] in Serum or Plasma 2023-05-30 04:14:20 101 mEq/L F 99.0-109.0 Aluminum [Mass/volume] in Serum or Plasma 2023-05-29 19:57:28 10 ug/L F 0.0-9.0 Aspartate aminotransferase [Enzymatic activity/volume] in Serum or Plasma 2023-05-29 16:11:40 12 U/L F 0.0-33.0 Alanine aminotransferase [Enzymatic activity/volume] in Serum or Plasma 2023-05-29 16:11:40 14 U/L F 10.0-49.0 Aspartate aminotransferase [Enzymatic activity/volume] in Serum or Plasma 2023-04-24 23:09:39 14 U/L F 0.0-33.0 Alanine aminotransferase [Enzymatic activity/volume] in Serum or Plasma 2023-04-24 23:09:39 12 U/L F 10.0-49.0 Chloride [Moles/volume] in Serum or Plasma 2023-04-24 23:09:39 101 mEq/L F 99.0-109.0 Aspartate aminotransferase [Enzymatic activity/volume] in Serum or Plasma 2023-03-27 16:17:35 11 U/L F 0.0-33.0 Alanine aminotransferase [Enzymatic activity/volume] in Serum or Plasma 2023-03-27 16:17:35 9 U/L F 10.0-49.0 Chloride [Moles/volume] in Serum or Plasma 2023-03-27 16:17:35 104 mEq/L F 99.0-109.0 Chloride [Moles/volume] in Serum or Plasma 2023-03-27 16:17:35 104 mEq/L F 99.0-109.0 Alanine aminotransferase [Enzymatic activity/volume] in Serum or Plasma 2023-03-27 16:17:35 9 U/L F 10.0-49.0 Aspartate aminotransferase [Enzymatic activity/volume] in Serum or Plasma 2023-03-27 16:17:35 11 U/L F 0.0-33.0 Aspartate aminotransferase [Enzymatic activity/volume] in Serum or Plasma 2023-02-27 17:53:34 16 U/L F 0.0-33.0 Alanine aminotransferase [Enzymatic activity/volume] in Serum or Plasma 2023-02-27 17:53:34 14 U/L F 10.0-49.0 Chloride [Moles/volume] in Serum or Plasma 2023-02-27 17:53:34 101 mEq/L F 99.0-109.0 Chloride [Moles/volume] in Serum or Plasma 2023-02-27 17:53:34 101 mEq/L F 99.0-109.0 Alanine aminotransferase [Enzymatic activity/volume] in Serum or Plasma 2023-02-27 17:53:34 14 U/L F 10.0-49.0 Aspartate aminotransferase [Enzymatic activity/volume] in Serum or Plasma 2023-02-27 17:53:34 16 U/L F 0.0-33.0 Aspartate aminotransferase [Enzymatic activity/volume] in Serum or Plasma 2023-01-30 22:43:25 16 U/L F 0.0-33.0 Alanine aminotransferase [Enzymatic activity/volume] in Serum or Plasma 2023-01-30 22:43:25 15 U/L F 10.0-49.0 Chloride [Moles/volume] in Serum or Plasma 2023-01-30 22:43:25 105 mEq/L F 99.0-109.0 Chloride [Moles/volume] in Serum or Plasma 2023-01-30 22:43:25 105 mEq/L F 99.0-109.0 Alanine aminotransferase [Enzymatic activity/volume] in Serum or Plasma 2023-01-30 22:43:25 15 U/L F 10.0-49.0 Aspartate aminotransferase [Enzymatic activity/volume] in Serum or Plasma 2023-01-30 22:43:25 16 U/L F 0.0-33.0 Aspartate aminotransferase [Enzymatic activity/volume] in Serum or Plasma 2022-12-20 13:55:13 12 U/L F 0.0-33.0 Alanine aminotransferase [Enzymatic activity/volume] in Serum or Plasma 2022-12-20 13:55:13 13 U/L F 10.0-49.0 Chloride [Moles/volume] in Serum or Plasma 2022-12-20 13:55:13 101 mEq/L F 99.0-109.0 Aluminum [Mass/volume] in Serum or Plasma 2022-12-19 17:58:00 10 ug/L F 0.0-9.0 Aspartate aminotransferase [Enzymatic activity/volume] in Serum or Plasma 2022-08-06 15:00:59 15 U/L F 0.0-33.0 Alanine aminotransferase [Enzymatic activity/volume] in Serum or Plasma 2022-08-06 15:00:59 11 U/L F 10.0-49.0 Chloride [Moles/volume] in Serum or Plasma 2022-08-06 15:00:59 106 mEq/L F 99.0-109.0 Chloride [Moles/volume] in Serum or Plasma 2022-08-06 15:00:59 106 mEq/L F 99.0-109.0 Alanine aminotransferase [Enzymatic activity/volume] in Serum or Plasma 2022-08-06 15:00:59 11 U/L F 10.0-49.0 Aspartate aminotransferase [Enzymatic activity/volume] in Serum or Plasma 2022-08-06 15:00:59 15 U/L F 0.0-33.0 Aspartate aminotransferase [Enzymatic activity/volume] in Serum or Plasma 2022-06-28 00:23:52 20 U/L F 0.0-33.0 Alanine aminotransferase [Enzymatic activity/volume] in Serum or Plasma 2022-06-28 00:23:52 15 U/L F 10.0-49.0 Chloride [Moles/volume] in Serum or Plasma 2022-06-28 00:23:52 106 mEq/L F 99.0-109.0 Aluminum [Mass/volume] in Serum or Plasma 2022-05-29 08:05:32 F Canceled - Specimen not received 5 days past draw date,Source: Aluminum [Mass/volume] in Serum or Plasma 2022-05-29 08:05:32 F Canceled - Specimen not received 5 days past draw date,Source: Chloride [Moles/volume] in Serum or Plasma 2022-05-23 20:51:42 103 mEq/L F 99.0-109.0 Alanine aminotransferase [Enzymatic activity/volume] in Serum or Plasma 2022-05-23 20:51:42 18 U/L F 10.0-49.0 Aspartate aminotransferase [Enzymatic activity/volume] in Serum or Plasma 2022-05-23 20:51:42 19 U/L F 0.0-33.0 Aspartate aminotransferase [Enzymatic activity/volume] in Serum or Plasma 2022-05-23 20:51:42 19 U/L F 0.0-33.0 Alanine aminotransferase [Enzymatic activity/volume] in Serum or Plasma 2022-05-23 20:51:42 18 U/L F 10.0-49.0 Chloride [Moles/volume] in Serum or Plasma 2022-05-23 20:51:42 103 mEq/L F 99.0-109.0 InfectionVaccination Description Draw Date Result/Unit Status Ref Range Result Comments Basophils/100 leukocytes in Blood by Automated count 2024-06-01 20:01:14 0.5 % F Monocytes/100 leukocytes in Blood by Automated count 2024-06-01 20:01:14 5.4 % F Eosinophils/100 leukocytes in Blood by Automated count 2024-06-01 20:01:14 2.6 % F Neutrophils/100 leukocytes in Blood by Automated count 2024-06-01 20:01:14 73.7 % F Lymphocytes/100 leukocytes in Blood by Automated count 2024-06-01 20:01:14 17.8 % F Leukocytes [#/volume] in Blood by Automated count 2024-06-01 20:01:14 6.1 x 10^3 cells/uL F 4.0-11.0 Neutrophils [#/volume] in Blood by Automated count 2024-06-01 20:01:14 4488 Cells/uL F 2000.0-8800.0 Lymphocytes [#/volume] in Blood by Automated count 2024-06-01 20:01:14 1084 Cells/uL F 620.0-3660.0 Basophils [#/volume] in Blood by Automated count 2024-06-01 20:01:14 30 Cells/uL F 0.0-400.0 Eosinophils [#/volume] in Blood by Automated count 2024-06-01 20:01:14 158 Cells/uL F 0.0-700.0 Monocytes [#/volume] in Blood by Automated count 2024-06-01 20:01:14 329 Cells/uL F 0.0-1100.0 Lymphocytes/100 leukocytes in Blood by Automated count 2024-05-04 21:06:11 19.9 % F Monocytes/100 leukocytes in Blood by Automated count 2024-05-04 21:06:11 4.8 % F Eosinophils/100 leukocytes in Blood by Automated count 2024-05-04 21:06:11 2.7 % F Neutrophils/100 leukocytes in Blood by Automated count 2024-05-04 21:06:11 72.1 % F Basophils/100 leukocytes in Blood by Automated count 2024-05-04 21:06:11 0.6 % F Leukocytes [#/volume] in Blood by Automated count 2024-05-04 21:06:11 7.4 x 10'3 cells/uL F 4.0-11.0 Basophils [#/volume] in Blood by Automated count 2024-05-04 21:06:11 45 Cells/uL F 0.0-400.0 Eosinophils [#/volume] in Blood by Automated count 2024-05-04 21:06:11 200 Cells/uL F 0.0-700.0 Monocytes [#/volume] in Blood by Automated count 2024-05-04 21:06:11 356 Cells/uL F 0.0-1100.0 Lymphocytes [#/volume] in Blood by Automated count 2024-05-04 21:06:11 1477 Cells/uL F 620.0-3660.0 Neutrophils [#/volume] in Blood by Automated count 2024-05-04 21:06:11 5350 Cells/uL F 2000.0-8800.0 Basophils/100 leukocytes in Blood by Automated count 2024-05-04 21:06:11 0.6 % F Lymphocytes/100 leukocytes in Blood by Automated count 2024-05-04 21:06:11 19.9 % F Neutrophils/100 leukocytes in Blood by Automated count 2024-05-04 21:06:11 72.1 % F Monocytes/100 leukocytes in Blood by Automated count 2024-05-04 21:06:11 4.8 % F Eosinophils/100 leukocytes in Blood by Automated count 2024-05-04 21:06:11 2.7 % F Leukocytes [#/volume] in Blood by Automated count 2024-05-04 21:06:11 7.4 x 10^3 cells/uL F 4.0-11.0 Lymphocytes [#/volume] in Blood by Automated count 2024-05-04 21:06:11 1477 Cells/uL F 620.0-3660.0 Monocytes [#/volume] in Blood by Automated count 2024-05-04 21:06:11 356 Cells/uL F 0.0-1100.0 Neutrophils [#/volume] in Blood by Automated count 2024-05-04 21:06:11 5350 Cells/uL F 2000.0-8800.0 Basophils [#/volume] in Blood by Automated count 2024-05-04 21:06:11 45 Cells/uL F 0.0-400.0 Eosinophils [#/volume] in Blood by Automated count 2024-05-04 21:06:11 200 Cells/uL F 0.0-700.0 Neutrophils/100 leukocytes in Blood by Automated count 2024-04-07 03:20:11 71.6 % F Monocytes/100 leukocytes in Blood by Automated count 2024-04-07 03:20:11 6.4 % F Basophils/100 leukocytes in Blood by Automated count 2024-04-07 03:20:11 1.3 % F Lymphocytes/100 leukocytes in Blood by Automated count 2024-04-07 03:20:11 18.7 % F Eosinophils/100 leukocytes in Blood by Automated count 2024-04-07 03:20:11 1.9 % F Leukocytes [#/volume] in Blood by Automated count 2024-04-07 03:20:11 7.5 x 10^3 cells/uL F 4.0-11.0 Eosinophils [#/volume] in Blood by Automated count 2024-04-07 03:20:11 143 Cells/uL F 0.0-700.0 Basophils [#/volume] in Blood by Automated count 2024-04-07 03:20:11 98 Cells/uL F 0.0-400.0 Monocytes [#/volume] in Blood by Automated count 2024-04-07 03:20:11 481 Cells/uL F 0.0-1100.0 Lymphocytes [#/volume] in Blood by Automated count 2024-04-07 03:20:11 1404 Cells/uL F 620.0-3660.0 Neutrophils [#/volume] in Blood by Automated count 2024-04-07 03:20:11 5377 Cells/uL F 2000.0-8800.0 Basophils/100 leukocytes in Blood by Automated count 2024-03-02 14:36:13 1.2 % F Monocytes/100 leukocytes in Blood by Automated count 2024-03-02 14:36:13 4.4 % F Leukocytes [#/volume] in Blood by Automated count 2024-03-02 14:36:13 9.4 x 10^3 cells/uL F 4.0-11.0 Basophils [#/volume] in Blood by Automated count 2024-03-02 14:36:13 112 Cell/uL F 0.0-400.0 Eosinophils [#/volume] in Blood by Automated count 2024-03-02 14:36:13 318 Cell/uL F 0.0-700.0 Monocytes [#/volume] in Blood by Automated count 2024-03-02 14:36:13 411 Cell/uL F 0.0-1100.0 Lymphocytes [#/volume] in Blood by Automated count 2024-03-02 14:36:13 1898 Cell/uL F 620.0-3660.0 Neutrophils [#/volume] in Blood by Automated count 2024-03-02 14:36:13 6601 Cell/uL F 2000.0-8800.0 Neutrophils/100 leukocytes in Blood by Automated count 2024-03-02 14:36:13 70.6 % F Eosinophils/100 leukocytes in Blood by Automated count 2024-03-02 14:36:13 3.4 % F Lymphocytes/100 leukocytes in Blood by Automated count 2024-03-02 14:36:13 20.3 % F Basophils/100 leukocytes in Blood by Automated count 2024-02-03 14:59:33 0.5 % F Neutrophils/100 leukocytes in Blood by Automated count 2024-02-03 14:59:33 70.7 % F Basophils [#/volume] in Blood by Automated count 2024-02-03 14:59:33 38 Cell/uL F 0.0-400.0 Leukocytes [#/volume] in Blood by Automated count 2024-02-03 14:59:33 7.7 x 10^3 cells/uL F 4.0-11.0 Eosinophils [#/volume] in Blood by Automated count 2024-02-03 14:59:33 238 Cell/uL F 0.0-700.0 Lymphocytes [#/volume] in Blood by Automated count 2024-02-03 14:59:33 1576 Cell/uL F 620.0-3660.0 Monocytes/100 leukocytes in Blood by Automated count 2024-02-03 14:59:32 5.2 % F Eosinophils/100 leukocytes in Blood by Automated count 2024-02-03 14:59:32 3.1 % F Lymphocytes/100 leukocytes in Blood by Automated count 2024-02-03 14:59:32 20.5 % F Monocytes [#/volume] in Blood by Automated count 2024-02-03 14:59:32 400 Cell/uL F 0.0-1100.0 Neutrophils [#/volume] in Blood by Automated count 2024-02-03 14:59:32 5437 Cell/uL F 2000.0-8800.0 Neutrophils/100 leukocytes in Blood by Automated count 2023-12-30 16:05:32 65.6 % F Lymphocytes/100 leukocytes in Blood by Automated count 2023-12-30 16:05:32 25.4 % F Eosinophils/100 leukocytes in Blood by Automated count 2023-12-30 16:05:32 3.3 % F Monocytes/100 leukocytes in Blood by Automated count 2023-12-30 16:05:32 5.1 % F Basophils/100 leukocytes in Blood by Automated count 2023-12-30 16:05:32 0.5 % F Leukocytes [#/volume] in Blood by Automated count 2023-12-30 16:05:32 6.7 x 10'3 cells/uL F 4.0-11.0 Eosinophils [#/volume] in Blood by Automated count 2023-12-30 16:05:32 221 Cell/uL F 0.0-700.0 Basophils [#/volume] in Blood by Automated count 2023-12-30 16:05:32 33 Cell/uL F 0.0-400.0 Monocytes [#/volume] in Blood by Automated count 2023-12-30 16:05:32 341 Cell/uL F 0.0-1100.0 Lymphocytes [#/volume] in Blood by Automated count 2023-12-30 16:05:32 1699 Cell/uL F 620.0-3660.0 Neutrophils [#/volume] in Blood by Automated count 2023-12-30 16:05:32 4389 Cell/uL F 2000.0-8800.0 Basophils/100 leukocytes in Blood by Automated count 2023-12-30 16:05:32 0.5 % F Neutrophils/100 leukocytes in Blood by Automated count 2023-12-30 16:05:32 65.6 % F Lymphocytes/100 leukocytes in Blood by Automated count 2023-12-30 16:05:32 25.4 % F Eosinophils/100 leukocytes in Blood by Automated count 2023-12-30 16:05:32 3.3 % F Leukocytes [#/volume] in Blood by Automated count 2023-12-30 16:05:32 6.7 x 10^3 cells/uL F 4.0-11.0 Monocytes/100 leukocytes in Blood by Automated count 2023-12-30 16:05:32 5.1 % F Lymphocytes [#/volume] in Blood by Automated count 2023-12-30 16:05:32 1699 Cell/uL F 620.0-3660.0 Neutrophils [#/volume] in Blood by Automated count 2023-12-30 16:05:32 4389 Cell/uL F 2000.0-8800.0 Monocytes [#/volume] in Blood by Automated count 2023-12-30 16:05:32 341 Cell/uL F 0.0-1100.0 Basophils [#/volume] in Blood by Automated count 2023-12-30 16:05:32 33 Cell/uL F 0.0-400.0 Eosinophils [#/volume] in Blood by Automated count 2023-12-30 16:05:32 221 Cell/uL F 0.0-700.0 Basophils/100 leukocytes in Blood by Automated count 2023-12-02 22:00:25 0.7 % F Eosinophils/100 leukocytes in Blood by Automated count 2023-12-02 22:00:25 3 % F Monocytes/100 leukocytes in Blood by Automated count 2023-12-02 22:00:25 4.6 % F Neutrophils/100 leukocytes in Blood by Automated count 2023-12-02 22:00:25 71.9 % F Lymphocytes/100 leukocytes in Blood by Automated count 2023-12-02 22:00:25 19.7 % F Leukocytes [#/volume] in Blood by Automated count 2023-12-02 22:00:25 7.5 x 10^3 cells/uL F 4.0-11.0 Basophils [#/volume] in Blood by Automated count 2023-12-02 22:00:25 53 Cell/uL F 0.0-400.0 Eosinophils [#/volume] in Blood by Automated count 2023-12-02 22:00:25 226 Cell/uL F 0.0-700.0 Monocytes [#/volume] in Blood by Automated count 2023-12-02 22:00:25 346 Cell/uL F 0.0-1100.0 Lymphocytes [#/volume] in Blood by Automated count 2023-12-02 22:00:25 1483 Cell/uL F 620.0-3660.0 Neutrophils [#/volume] in Blood by Automated count 2023-12-02 22:00:25 5414 Cell/uL F 2000.0-8800.0 Monocytes [#/volume] in Blood by Automated count 2023-11-04 17:07:28 372 Cell/uL F 0.0-1100.0 Lymphocytes [#/volume] in Blood by Automated count 2023-11-04 17:07:28 1211 Cell/uL F 620.0-3660.0 Neutrophils [#/volume] in Blood by Automated count 2023-11-04 17:07:28 5936 Cell/uL F 2000.0-8800.0 Basophils/100 leukocytes in Blood by Automated count 2023-11-04 17:07:28 0.3 % F Lymphocytes/100 leukocytes in Blood by Automated count 2023-11-04 17:07:28 15.6 % F Neutrophils/100 leukocytes in Blood by Automated count 2023-11-04 17:07:28 76.5 % F Monocytes/100 leukocytes in Blood by Automated count 2023-11-04 17:07:28 4.8 % F Eosinophils/100 leukocytes in Blood by Automated count 2023-11-04 17:07:28 2.8 % F Leukocytes [#/volume] in Blood by Automated count 2023-11-04 17:07:28 7.8 x 10^3 cells/uL F 4.0-11.0 Neutrophils [#/volume] in Blood by Automated count 2023-11-04 17:07:28 5936 Cell/uL F 2000.0-8800.0 Lymphocytes [#/volume] in Blood by Automated count 2023-11-04 17:07:28 1211 Cell/uL F 620.0-3660.0 Eosinophils [#/volume] in Blood by Automated count 2023-11-04 17:07:28 217 Cell/uL F 0.0-700.0 Monocytes [#/volume] in Blood by Automated count 2023-11-04 17:07:28 372 Cell/uL F 0.0-1100.0 Basophils [#/volume] in Blood by Automated count 2023-11-04 17:07:28 23 Cell/uL F 0.0-400.0 Basophils/100 leukocytes in Blood by Automated count 2023-11-04 17:07:28 0.3 % F Eosinophils/100 leukocytes in Blood by Automated count 2023-11-04 17:07:28 2.8 % F Monocytes/100 leukocytes in Blood by Automated count 2023-11-04 17:07:28 4.8 % F Neutrophils/100 leukocytes in Blood by Automated count 2023-11-04 17:07:28 76.5 % F Lymphocytes/100 leukocytes in Blood by Automated count 2023-11-04 17:07:28 15.6 % F Leukocytes [#/volume] in Blood by Automated count 2023-11-04 17:07:28 7.8 x 10'3 cells/uL F 4.0-11.0 Basophils [#/volume] in Blood by Automated count 2023-11-04 17:07:28 23 Cell/uL F 0.0-400.0 Eosinophils [#/volume] in Blood by Automated count 2023-11-04 17:07:28 217 Cell/uL F 0.0-700.0 Eosinophils/100 leukocytes in Blood by Automated count 2023-09-30 20:21:42 3.5 % F Basophils/100 leukocytes in Blood by Automated count 2023-09-30 20:21:42 0.6 % F Lymphocytes/100 leukocytes in Blood by Automated count 2023-09-30 20:21:42 17.8 % F Leukocytes [#/volume] in Blood by Automated count 2023-09-30 20:21:42 8.2 x 10^3 cells/uL F 4.0-11.0 Lymphocytes [#/volume] in Blood by Automated count 2023-09-30 20:21:42 1456 Cell/uL F 620.0-3660.0 Monocytes/100 leukocytes in Blood by Automated count 2023-09-30 20:21:40 4.5 % F Neutrophils/100 leukocytes in Blood by Automated count 2023-09-30 20:21:40 73.6 % F Basophils [#/volume] in Blood by Automated count 2023-09-30 20:21:40 49 Cell/uL F 0.0-400.0 Eosinophils [#/volume] in Blood by Automated count 2023-09-30 20:21:40 286 Cell/uL F 0.0-700.0 Monocytes [#/volume] in Blood by Automated count 2023-09-30 20:21:40 368 Cell/uL F 0.0-1100.0 Neutrophils [#/volume] in Blood by Automated count 2023-09-30 20:21:40 6020 Cell/uL F 2000.0-8800.0 Lymphocytes/100 leukocytes in Blood by Automated count 2023-09-02 21:24:27 14.8 % F Eosinophils/100 leukocytes in Blood by Automated count 2023-09-02 21:24:27 5.2 % F Neutrophils/100 leukocytes in Blood by Automated count 2023-09-02 21:24:27 74.9 % F Basophils/100 leukocytes in Blood by Automated count 2023-09-02 21:24:27 0.8 % F Monocytes/100 leukocytes in Blood by Automated count 2023-09-02 21:24:27 4.2 % F Leukocytes [#/volume] in Blood by Automated count 2023-09-02 21:24:27 9.1 x 10^3 cells/uL F 4.0-11.0 Basophils [#/volume] in Blood by Automated count 2023-09-02 21:24:27 73 Cell/uL F 0.0-400.0 Eosinophils [#/volume] in Blood by Automated count 2023-09-02 21:24:27 472 Cell/uL F 0.0-700.0 Monocytes [#/volume] in Blood by Automated count 2023-09-02 21:24:27 381 Cell/uL F 0.0-1100.0 Lymphocytes [#/volume] in Blood by Automated count 2023-09-02 21:24:27 1342 Cell/uL F 620.0-3660.0 Neutrophils [#/volume] in Blood by Automated count 2023-09-02 21:24:27 6793 Cell/uL F 2000.0-8800.0 Neutrophils/100 leukocytes in Blood by Automated count 2023-08-05 16:31:50 72.9 % F Basophils/100 leukocytes in Blood by Automated count 2023-08-05 16:31:50 0.8 % F Monocytes/100 leukocytes in Blood by Automated count 2023-08-05 16:31:50 5.1 % F Eosinophils/100 leukocytes in Blood by Automated count 2023-08-05 16:31:50 3.8 % F Lymphocytes [#/volume] in Blood by Automated count 2023-08-05 16:31:50 1318 Cell/uL F 620.0-3660.0 Eosinophils/100 leukocytes in Blood by Automated count 2023-08-05 16:31:50 3.8 % F Monocytes/100 leukocytes in Blood by Automated count 2023-08-05 16:31:50 5.1 % F Neutrophils/100 leukocytes in Blood by Automated count 2023-08-05 16:31:50 72.9 % F Basophils/100 leukocytes in Blood by Automated count 2023-08-05 16:31:50 0.8 % F Lymphocytes [#/volume] in Blood by Automated count 2023-08-05 16:31:50 1318 Cell/uL F 620.0-3660.0 Lymphocytes/100 leukocytes in Blood by Automated count 2023-08-05 16:31:48 17.5 % F Monocytes [#/volume] in Blood by Automated count 2023-08-05 16:31:48 384 Cell/uL F 0.0-1100.0 Eosinophils [#/volume] in Blood by Automated count 2023-08-05 16:31:48 286 Cell/uL F 0.0-700.0 Basophils [#/volume] in Blood by Automated count 2023-08-05 16:31:48 60 Cell/uL F 0.0-400.0 Lymphocytes/100 leukocytes in Blood by Automated count 2023-08-05 16:31:48 17.5 % F Basophils [#/volume] in Blood by Automated count 2023-08-05 16:31:48 60 Cell/uL F 0.0-400.0 Eosinophils [#/volume] in Blood by Automated count 2023-08-05 16:31:48 286 Cell/uL F 0.0-700.0 Monocytes [#/volume] in Blood by Automated count 2023-08-05 16:31:48 384 Cell/uL F 0.0-1100.0 Leukocytes [#/volume] in Blood by Automated count 2023-08-05 16:31:45 7.5 x 10^3 cells/uL F 4.0-11.0 Neutrophils [#/volume] in Blood by Automated count 2023-08-05 16:31:45 5489 Cell/uL F 2000.0-8800.0 Leukocytes [#/volume] in Blood by Automated count 2023-08-05 16:31:45 7.5 x 10'3 cells/uL F 4.0-11.0 Neutrophils [#/volume] in Blood by Automated count 2023-08-05 16:31:45 5489 Cell/uL F 2000.0-8800.0 Lymphocytes/100 leukocytes in Blood by Automated count 2023-07-31 17:31:42 18 % F Basophils [#/volume] in Blood by Automated count 2023-07-31 17:31:42 30 Cell/uL F 0.0-400.0 Eosinophils [#/volume] in Blood by Automated count 2023-07-31 17:31:42 288 Cell/uL F 0.0-700.0 Lymphocytes [#/volume] in Blood by Automated count 2023-07-31 17:31:42 1328 Cell/uL F 620.0-3660.0 Lymphocytes/100 leukocytes in Blood by Automated count 2023-07-31 17:31:42 18 % F Lymphocytes [#/volume] in Blood by Automated count 2023-07-31 17:31:42 1328 Cell/uL F 620.0-3660.0 Basophils [#/volume] in Blood by Automated count 2023-07-31 17:31:42 30 Cell/uL F 0.0-400.0 Eosinophils [#/volume] in Blood by Automated count 2023-07-31 17:31:42 288 Cell/uL F 0.0-700.0 Neutrophils/100 leukocytes in Blood by Automated count 2023-07-31 17:31:40 69.7 % F Monocytes/100 leukocytes in Blood by Automated count 2023-07-31 17:31:40 7.9 % F Eosinophils/100 leukocytes in Blood by Automated count 2023-07-31 17:31:40 3.9 % F Basophils/100 leukocytes in Blood by Automated count 2023-07-31 17:31:40 0.4 % F Monocytes [#/volume] in Blood by Automated count 2023-07-31 17:31:40 583 Cell/uL F 0.0-1100.0 Neutrophils [#/volume] in Blood by Automated count 2023-07-31 17:31:40 5144 Cell/uL F 2000.0-8800.0 Basophils/100 leukocytes in Blood by Automated count 2023-07-31 17:31:40 0.4 % F Neutrophils/100 leukocytes in Blood by Automated count 2023-07-31 17:31:40 69.7 % F Eosinophils/100 leukocytes in Blood by Automated count 2023-07-31 17:31:40 3.9 % F Monocytes/100 leukocytes in Blood by Automated count 2023-07-31 17:31:40 7.9 % F Neutrophils [#/volume] in Blood by Automated count 2023-07-31 17:31:40 5144 Cell/uL F 2000.0-8800.0 Monocytes [#/volume] in Blood by Automated count 2023-07-31 17:31:40 583 Cell/uL F 0.0-1100.0 Leukocytes [#/volume] in Blood by Automated count 2023-07-31 17:31:35 7.4 x 10'3 cells/uL F 4.0-11.0 Leukocytes [#/volume] in Blood by Automated count 2023-07-31 17:31:35 7.4 x 10^3 cells/uL F 4.0-11.0 Monocytes/100 leukocytes in Blood by Automated count 2023-07-10 19:55:28 6 % F Basophils/100 leukocytes in Blood by Automated count 2023-07-10 19:55:28 0.4 % F Lymphocytes/100 leukocytes in Blood by Automated count 2023-07-10 19:55:28 12.4 % F Neutrophils/100 leukocytes in Blood by Automated count 2023-07-10 19:55:28 78.2 % F Eosinophils/100 leukocytes in Blood by Automated count 2023-07-10 19:55:28 2.9 % F Basophils [#/volume] in Blood by Automated count 2023-07-10 19:55:28 40 Cell/uL F 0.0-400.0 Leukocytes [#/volume] in Blood by Automated count 2023-07-10 19:55:28 10 x 10^3 cells/uL F 4.0-11.0 Eosinophils [#/volume] in Blood by Automated count 2023-07-10 19:55:28 289 Cell/uL F 0.0-700.0 Monocytes [#/volume] in Blood by Automated count 2023-07-10 19:55:28 598 Cell/uL F 0.0-1100.0 Neutrophils [#/volume] in Blood by Automated count 2023-07-10 19:55:28 7789 Cell/uL F 2000.0-8800.0 Lymphocytes [#/volume] in Blood by Automated count 2023-07-10 19:55:28 1235 Cell/uL F 620.0-3660.0 Neutrophils/100 leukocytes in Blood by Automated count 2023-05-29 16:26:37 77.4 % F Basophils/100 leukocytes in Blood by Automated count 2023-05-29 16:26:37 0.4 % F Eosinophils/100 leukocytes in Blood by Automated count 2023-05-29 16:26:37 3.6 % F Monocytes/100 leukocytes in Blood by Automated count 2023-05-29 16:26:37 5.7 % F Lymphocytes/100 leukocytes in Blood by Automated count 2023-05-29 16:26:37 13.1 % F Leukocytes [#/volume] in Blood by Automated count 2023-05-29 16:26:37 6.9 x 10^3 cells/uL F 4.0-11.0 Eosinophils [#/volume] in Blood by Automated count 2023-05-29 16:26:37 247 Cell/uL F 0.0-700.0 Basophils [#/volume] in Blood by Automated count 2023-05-29 16:26:37 27 Cell/uL F 0.0-400.0 Monocytes [#/volume] in Blood by Automated count 2023-05-29 16:26:37 392 Cell/uL F 0.0-1100.0 Lymphocytes [#/volume] in Blood by Automated count 2023-05-29 16:26:37 900 Cell/uL F 620.0-3660.0 Neutrophils [#/volume] in Blood by Automated count 2023-05-29 16:26:37 5317 Cell/uL F 2000.0-8800.0 Monocytes/100 leukocytes in Blood by Automated count 2023-04-24 19:27:32 4.4 % F Basophils/100 leukocytes in Blood by Automated count 2023-04-24 19:27:32 0.2 % F Lymphocytes/100 leukocytes in Blood by Automated count 2023-04-24 19:27:32 12.2 % F Neutrophils/100 leukocytes in Blood by Automated count 2023-04-24 19:27:32 80.3 % F Eosinophils/100 leukocytes in Blood by Automated count 2023-04-24 19:27:32 3 % F Leukocytes [#/volume] in Blood by Automated count 2023-04-24 19:27:32 6.6 x 10^3 cells/uL F 4.0-11.0 Eosinophils [#/volume] in Blood by Automated count 2023-04-24 19:27:32 197 Cell/uL F 0.0-700.0 Basophils [#/volume] in Blood by Automated count 2023-04-24 19:27:32 13 Cell/uL F 0.0-400.0 Monocytes [#/volume] in Blood by Automated count 2023-04-24 19:27:32 290 Cell/uL F 0.0-1100.0 Lymphocytes [#/volume] in Blood by Automated count 2023-04-24 19:27:32 803 Cell/uL F 620.0-3660.0 Neutrophils [#/volume] in Blood by Automated count 2023-04-24 19:27:32 5284 Cell/uL F 2000.0-8800.0 Basophils/100 leukocytes in Blood by Automated count 2023-03-27 18:54:32 0.2 % F Eosinophils/100 leukocytes in Blood by Automated count 2023-03-27 18:54:32 3.4 % F Leukocytes [#/volume] in Blood by Automated count 2023-03-27 18:54:32 5.5 x 10'3 cells/uL F 4.0-11.0 Basophils [#/volume] in Blood by Automated count 2023-03-27 18:54:32 11 Cell/uL F 0.0-400.0 Eosinophils [#/volume] in Blood by Automated count 2023-03-27 18:54:32 186 Cell/uL F 0.0-700.0 Monocytes [#/volume] in Blood by Automated count 2023-03-27 18:54:32 360 Cell/uL F 0.0-1100.0 Basophils/100 leukocytes in Blood by Automated count 2023-03-27 18:54:32 0.2 % F Eosinophils/100 leukocytes in Blood by Automated count 2023-03-27 18:54:32 3.4 % F Leukocytes [#/volume] in Blood by Automated count 2023-03-27 18:54:32 5.5 x 10^3 cells/uL F 4.0-11.0 Basophils [#/volume] in Blood by Automated count 2023-03-27 18:54:32 11 Cell/uL F 0.0-400.0 Monocytes [#/volume] in Blood by Automated count 2023-03-27 18:54:32 360 Cell/uL F 0.0-1100.0 Eosinophils [#/volume] in Blood by Automated count 2023-03-27 18:54:32 186 Cell/uL F 0.0-700.0 Monocytes/100 leukocytes in Blood by Automated count 2023-03-27 18:54:30 6.6 % F Neutrophils/100 leukocytes in Blood by Automated count 2023-03-27 18:54:30 73.9 % F Lymphocytes/100 leukocytes in Blood by Automated count 2023-03-27 18:54:30 16 % F Neutrophils/100 leukocytes in Blood by Automated count 2023-03-27 18:54:30 73.9 % F Lymphocytes/100 leukocytes in Blood by Automated count 2023-03-27 18:54:30 16 % F Monocytes/100 leukocytes in Blood by Automated count 2023-03-27 18:54:30 6.6 % F Neutrophils [#/volume] in Blood by Automated count 2023-03-27 18:54:30 4035 Cell/uL F 2000.0-8800.0 Neutrophils [#/volume] in Blood by Automated count 2023-03-27 18:54:30 4035 Cell/uL F 2000.0-8800.0 Lymphocytes [#/volume] in Blood by Automated count 2023-03-27 18:54:30 874 Cell/uL F 620.0-3660.0 Lymphocytes [#/volume] in Blood by Automated count 2023-03-27 18:54:30 874 Cell/uL F 620.0-3660.0 Basophils/100 leukocytes in Blood by Automated count 2023-02-28 01:10:33 0.5 % F Eosinophils/100 leukocytes in Blood by Automated count 2023-02-28 01:10:33 2.5 % F Lymphocytes/100 leukocytes in Blood by Automated count 2023-02-28 01:10:33 13.8 % F Monocytes/100 leukocytes in Blood by Automated count 2023-02-28 01:10:33 5.9 % F Neutrophils/100 leukocytes in Blood by Automated count 2023-02-28 01:10:33 77.2 % F Leukocytes [#/volume] in Blood by Automated count 2023-02-28 01:10:33 6.7 x 10'3 cells/uL F 4.0-11.0 Basophils [#/volume] in Blood by Automated count 2023-02-28 01:10:33 34 Cell/uL F 0.0-400.0 Eosinophils [#/volume] in Blood by Automated count 2023-02-28 01:10:33 168 Cell/uL F 0.0-700.0 Monocytes [#/volume] in Blood by Automated count 2023-02-28 01:10:33 396 Cell/uL F 0.0-1100.0 Lymphocytes [#/volume] in Blood by Automated count 2023-02-28 01:10:33 926 Cell/uL F 620.0-3660.0 Neutrophils [#/volume] in Blood by Automated count 2023-02-28 01:10:33 5180 Cell/uL F 2000.0-8800.0 Basophils/100 leukocytes in Blood by Automated count 2023-02-28 01:10:33 0.5 % F Lymphocytes/100 leukocytes in Blood by Automated count 2023-02-28 01:10:33 13.8 % F Neutrophils/100 leukocytes in Blood by Automated count 2023-02-28 01:10:33 77.2 % F Monocytes/100 leukocytes in Blood by Automated count 2023-02-28 01:10:33 5.9 % F Eosinophils/100 leukocytes in Blood by Automated count 2023-02-28 01:10:33 2.5 % F Leukocytes [#/volume] in Blood by Automated count 2023-02-28 01:10:33 6.7 x 10^3 cells/uL F 4.0-11.0 Neutrophils [#/volume] in Blood by Automated count 2023-02-28 01:10:33 5180 Cell/uL F 2000.0-8800.0 Lymphocytes [#/volume] in Blood by Automated count 2023-02-28 01:10:33 926 Cell/uL F 620.0-3660.0 Monocytes [#/volume] in Blood by Automated count 2023-02-28 01:10:33 396 Cell/uL F 0.0-1100.0 Basophils [#/volume] in Blood by Automated count 2023-02-28 01:10:33 34 Cell/uL F 0.0-400.0 Eosinophils [#/volume] in Blood by Automated count 2023-02-28 01:10:33 168 Cell/uL F 0.0-700.0 Lymphocytes/100 leukocytes in Blood by Automated count 2023-01-30 17:30:41 14.1 % F Monocytes/100 leukocytes in Blood by Automated count 2023-01-30 17:30:41 5.6 % F Basophils/100 leukocytes in Blood by Automated count 2023-01-30 17:30:41 0.2 % F Neutrophils/100 leukocytes in Blood by Automated count 2023-01-30 17:30:41 76 % F Eosinophils/100 leukocytes in Blood by Automated count 2023-01-30 17:30:41 4.1 % F Eosinophils [#/volume] in Blood by Automated count 2023-01-30 17:30:41 236 Cell/uL F 0.0-700.0 Basophils [#/volume] in Blood by Automated count 2023-01-30 17:30:41 12 Cell/uL F 0.0-400.0 Leukocytes [#/volume] in Blood by Automated count 2023-01-30 17:30:41 5.8 x 10'3 cells/uL F 4.0-11.0 Monocytes [#/volume] in Blood by Automated count 2023-01-30 17:30:41 322 Cell/uL F 0.0-1100.0 Lymphocytes [#/volume] in Blood by Automated count 2023-01-30 17:30:41 811 Cell/uL F 620.0-3660.0 Neutrophils [#/volume] in Blood by Automated count 2023-01-30 17:30:41 4370 Cell/uL F 2000.0-8800.0 Basophils/100 leukocytes in Blood by Automated count 2023-01-30 17:30:41 0.2 % F Neutrophils/100 leukocytes in Blood by Automated count 2023-01-30 17:30:41 76 % F Lymphocytes/100 leukocytes in Blood by Automated count 2023-01-30 17:30:41 14.1 % F Monocytes/100 leukocytes in Blood by Automated count 2023-01-30 17:30:41 5.6 % F Eosinophils/100 leukocytes in Blood by Automated count 2023-01-30 17:30:41 4.1 % F Leukocytes [#/volume] in Blood by Automated count 2023-01-30 17:30:41 5.8 x 10^3 cells/uL F 4.0-11.0 Neutrophils [#/volume] in Blood by Automated count 2023-01-30 17:30:41 4370 Cell/uL F 2000.0-8800.0 Lymphocytes [#/volume] in Blood by Automated count 2023-01-30 17:30:41 811 Cell/uL F 620.0-3660.0 Monocytes [#/volume] in Blood by Automated count 2023-01-30 17:30:41 322 Cell/uL F 0.0-1100.0 Basophils [#/volume] in Blood by Automated count 2023-01-30 17:30:41 12 Cell/uL F 0.0-400.0 Eosinophils [#/volume] in Blood by Automated count 2023-01-30 17:30:41 236 Cell/uL F 0.0-700.0 Basophils/100 leukocytes in Blood by Automated count 2022-12-19 23:37:26 0.2 % F Monocytes/100 leukocytes in Blood by Automated count 2022-12-19 23:37:26 6.4 % F Lymphocytes/100 leukocytes in Blood by Automated count 2022-12-19 23:37:26 14.1 % F Eosinophils/100 leukocytes in Blood by Automated count 2022-12-19 23:37:26 3.2 % F Neutrophils/100 leukocytes in Blood by Automated count 2022-12-19 23:37:26 76.2 % F Leukocytes [#/volume] in Blood by Automated count 2022-12-19 23:37:26 6.3 x 10^3 cells/uL F 4.0-11.0 Eosinophils [#/volume] in Blood by Automated count 2022-12-19 23:37:26 201 Cell/uL F 0.0-700.0 Basophils [#/volume] in Blood by Automated count 2022-12-19 23:37:26 13 Cell/uL F 0.0-400.0 Monocytes [#/volume] in Blood by Automated count 2022-12-19 23:37:26 403 Cell/uL F 0.0-1100.0 Lymphocytes [#/volume] in Blood by Automated count 2022-12-19 23:37:26 887 Cell/uL F 620.0-3660.0 Neutrophils [#/volume] in Blood by Automated count 2022-12-19 23:37:26 4793 Cell/uL F 2000.0-8800.0 Eosinophils/100 leukocytes in Blood by Automated count 2022-08-06 18:21:55 2.1 % F Monocytes/100 leukocytes in Blood by Automated count 2022-08-06 18:21:55 5.7 % F Neutrophils/100 leukocytes in Blood by Automated count 2022-08-06 18:21:55 71.5 % F Basophils/100 leukocytes in Blood by Automated count 2022-08-06 18:21:55 0.3 % F Eosinophils [#/volume] in Blood by Automated count 2022-08-06 18:21:55 125.37 Cell/uL F 0.0-700.0 Basophils [#/volume] in Blood by Automated count 2022-08-06 18:21:55 17.91 Cell/uL F 0.0-400.0 Monocytes [#/volume] in Blood by Automated count 2022-08-06 18:21:55 340.29 Cell/uL F 0.0-1100.0 Neutrophils [#/volume] in Blood by Automated count 2022-08-06 18:21:55 4268.55 Cell/uL F 2000.0-8800.0 Basophils/100 leukocytes in Blood by Automated count 2022-08-06 18:21:55 0.3 % F Neutrophils/100 leukocytes in Blood by Automated count 2022-08-06 18:21:55 71.5 % F Monocytes/100 leukocytes in Blood by Automated count 2022-08-06 18:21:55 5.7 % F Eosinophils/100 leukocytes in Blood by Automated count 2022-08-06 18:21:55 2.1 % F Monocytes [#/volume] in Blood by Automated count 2022-08-06 18:21:55 340.29 Cell/uL F 0.0-1100.0 Basophils [#/volume] in Blood by Automated count 2022-08-06 18:21:55 17.91 Cell/uL F 0.0-400.0 Neutrophils [#/volume] in Blood by Automated count 2022-08-06 18:21:55 4268.55 Cell/uL F 2000.0-8800.0 Eosinophils [#/volume] in Blood by Automated count 2022-08-06 18:21:55 125.37 Cell/uL F 0.0-700.0 Lymphocytes/100 leukocytes in Blood by Automated count 2022-08-06 18:21:54 20.3 % F Leukocytes [#/volume] in Blood by Automated count 2022-08-06 18:21:54 6 x 10'3 cells/uL F 4.5-11.0 Lymphocytes [#/volume] in Blood by Automated count 2022-08-06 18:21:54 1211.91 Cell/uL F 1100.0-4800.0 Lymphocytes/100 leukocytes in Blood by Automated count 2022-08-06 18:21:54 20.3 % F Leukocytes [#/volume] in Blood by Automated count 2022-08-06 18:21:54 6 x 10^3 cells/uL F 4.5-11.0 Lymphocytes [#/volume] in Blood by Automated count 2022-08-06 18:21:54 1211.91 Cell/uL F 1100.0-4800.0 Basophils/100 leukocytes in Blood by Automated count 2022-06-27 18:17:58 0.5 % F Eosinophils/100 leukocytes in Blood by Automated count 2022-06-27 18:17:58 3.2 % F Lymphocytes/100 leukocytes in Blood by Automated count 2022-06-27 18:17:58 22.3 % F Monocytes/100 leukocytes in Blood by Automated count 2022-06-27 18:17:58 4.4 % F Neutrophils/100 leukocytes in Blood by Automated count 2022-06-27 18:17:58 69.5 % F Leukocytes [#/volume] in Blood by Automated count 2022-06-27 18:17:58 7.2 x 10^3 cells/uL F 4.5-11.0 Basophils [#/volume] in Blood by Automated count 2022-06-27 18:17:58 36.05 Cell/uL F 0.0-400.0 Eosinophils [#/volume] in Blood by Automated count 2022-06-27 18:17:58 230.72 Cell/uL F 0.0-700.0 Monocytes [#/volume] in Blood by Automated count 2022-06-27 18:17:58 317.24 Cell/uL F 0.0-1100.0 Lymphocytes [#/volume] in Blood by Automated count 2022-06-27 18:17:58 1607.83 Cell/uL F 1100.0-4800.0 Neutrophils [#/volume] in Blood by Automated count 2022-06-27 18:17:58 5010.95 Cell/uL F 2000.0-8800.0 Basophils/100 leukocytes in Blood by Automated count 2022-05-24 00:53:33 0.8 % F Neutrophils/100 leukocytes in Blood by Automated count 2022-05-24 00:53:33 68.2 % F Monocytes/100 leukocytes in Blood by Automated count 2022-05-24 00:53:33 6.5 % F Eosinophils/100 leukocytes in Blood by Automated count 2022-05-24 00:53:33 2.7 % F Leukocytes [#/volume] in Blood by Automated count 2022-05-24 00:53:33 8.3 x 10^3 cells/uL F 4.5-11.0 Lymphocytes/100 leukocytes in Blood by Automated count 2022-05-24 00:53:33 21.9 % F Neutrophils [#/volume] in Blood by Automated count 2022-05-24 00:53:33 5646.96 Cell/uL F 2000.0-8800.0 Lymphocytes [#/volume] in Blood by Automated count 2022-05-24 00:53:33 1813.32 Cell/uL F 1100.0-4800.0 Monocytes [#/volume] in Blood by Automated count 2022-05-24 00:53:33 538.2 Cell/uL F 0.0-1100.0 Basophils [#/volume] in Blood by Automated count 2022-05-24 00:53:33 66.24 Cell/uL F 0.0-400.0 Eosinophils [#/volume] in Blood by Automated count 2022-05-24 00:53:33 223.56 Cell/uL F 0.0-700.0 Monocytes/100 leukocytes in Blood by Automated count 2022-05-24 00:53:33 6.5 % F Neutrophils/100 leukocytes in Blood by Automated count 2022-05-24 00:53:33 68.2 % F Eosinophils/100 leukocytes in Blood by Automated count 2022-05-24 00:53:33 2.7 % F Lymphocytes/100 leukocytes in Blood by Automated count 2022-05-24 00:53:33 21.9 % F Basophils/100 leukocytes in Blood by Automated count 2022-05-24 00:53:33 0.8 % F Leukocytes [#/volume] in Blood by Automated count 2022-05-24 00:53:33 8.3 x 10'3 cells/uL F 4.5-11.0 Eosinophils [#/volume] in Blood by Automated count 2022-05-24 00:53:33 223.56 Cell/uL F 0.0-700.0 Basophils [#/volume] in Blood by Automated count 2022-05-24 00:53:33 66.24 Cell/uL F 0.0-400.0 Monocytes [#/volume] in Blood by Automated count 2022-05-24 00:53:33 538.2 Cell/uL F 0.0-1100.0 Neutrophils [#/volume] in Blood by Automated count 2022-05-24 00:53:33 5646.96 Cell/uL F 2000.0-8800.0 Lymphocytes [#/volume] in Blood by Automated count 2022-05-24 00:53:33 1813.32 Cell/uL F 1100.0-4800.0 MineralBone Disorder Description Draw Date Result/Unit Status Ref Range Result Comments Alkaline phosphatase [Enzymatic activity/volume] in Serum or Plasma 2024-06-01 17:55:17 65 U/L F 46.0-116.0 CA CORRECTED 2024-05-19 09:02:37 8.9 mg/dL F CA CORRECTED 2024-05-19 09:02:37 8.9 mg/dL F CA*PO4 CORRCTD 2024-05-19 09:01:46 38.3 Calc F 21.0-53.0 CA/PHOS PRODUCT 2024-05-19 09:01:46 38.3 Calc F 21.0-53.0 CA*PO4 CORRCTD 2024-05-19 09:01:46 38.3 Calc F 21.0-53.0 CA/PHOS PRODUCT 2024-05-19 09:01:46 38.3 Calc F 21.0-53.0 Calcium [Mass/volume] in Serum or Plasma 2024-05-19 08:13:39 8.9 mg/dL F 8.7-10.4 Calcium [Mass/volume] in Serum or Plasma 2024-05-19 08:13:39 8.9 mg/dL F 8.7-10.4 Parathyrin.intact [Mass/volume] in Serum or Plasma 2024-05-18 19:41:17 532 pg/mL F 18.0-80.0 Parathyrin.intact [Mass/volume] in Serum or Plasma 2024-05-18 19:41:17 532 pg/mL F 18.0-80.0 Phosphate [Mass/volume] in Serum or Plasma 2024-05-18 18:27:18 4.3 mg/dL F 2.4-5.1 Phosphate [Mass/volume] in Serum or Plasma 2024-05-18 18:27:18 4.3 mg/dL F 2.4-5.1 Alkaline phosphatase [Enzymatic activity/volume] in Serum or Plasma 2024-05-04 22:42:24 62 U/L F 46.0-116.0 Alkaline phosphatase [Enzymatic activity/volume] in Serum or Plasma 2024-05-04 22:42:24 62 U/L F 46.0-116.0 CA CORRECTED 2024-04-20 20:17:35 9.2 mg/dL F CA/PHOS PRODUCT 2024-04-20 20:16:19 46.9 Calc F 21.0-53.0 CA*PO4 CORRCTD 2024-04-20 20:16:19 46.9 Calc F 21.0-53.0 Calcium [Mass/volume] in Serum or Plasma 2024-04-20 20:13:36 9.2 mg/dL F 8.7-10.4 Parathyrin.intact [Mass/volume] in Serum or Plasma 2024-04-20 15:43:22 607 pg/mL F 18.0-80.0 Phosphate [Mass/volume] in Serum or Plasma 2024-04-20 15:13:20 5.1 mg/dL F 2.4-5.1 CA CORRECTED 2024-04-07 07:06:50 9.9 mg/dL F CA*PO4 CORRCTD 2024-04-07 06:40:47 59.4 Calc F 21.0-53.0 CA/PHOS PRODUCT 2024-04-07 06:40:47 59.4 Calc F 21.0-53.0 Calcium [Mass/volume] in Serum or Plasma 2024-04-07 06:39:40 9.9 mg/dL F 8.7-10.4 Phosphate [Mass/volume] in Serum or Plasma 2024-04-06 19:53:15 6 mg/dL F 2.4-5.1 Alkaline phosphatase [Enzymatic activity/volume] in Serum or Plasma 2024-04-06 16:48:25 53 U/L F 46.0-116.0 Parathyrin.intact [Mass/volume] in Serum or Plasma 2024-04-06 16:13:18 791 pg/mL F 18.0-80.0 Alkaline phosphatase [Enzymatic activity/volume] in Serum or Plasma 2024-03-02 15:27:19 59 U/L F 46.0-116.0 Alkaline phosphatase [Enzymatic activity/volume] in Serum or Plasma 2024-02-03 15:11:30 42 U/L F 46.0-116.0 Alkaline phosphatase [Enzymatic activity/volume] in Serum or Plasma 2023-12-30 18:38:42 54 U/L F 46.0-116.0 Alkaline phosphatase [Enzymatic activity/volume] in Serum or Plasma 2023-12-30 18:38:42 54 U/L F 46.0-116.0 Alkaline phosphatase [Enzymatic activity/volume] in Serum or Plasma 2023-12-02 16:53:35 60 U/L F 46.0-116.0 Alkaline phosphatase [Enzymatic activity/volume] in Serum or Plasma 2023-11-04 17:42:37 54 U/L F 46.0-116.0 Alkaline phosphatase [Enzymatic activity/volume] in Serum or Plasma 2023-11-04 17:42:37 54 U/L F 46.0-116.0 Alkaline phosphatase [Enzymatic activity/volume] in Serum or Plasma 2023-09-30 22:09:48 46 U/L F 46.0-116.0 Alkaline phosphatase [Enzymatic activity/volume] in Serum or Plasma 2023-09-02 19:59:25 51 U/L F 46.0-116.0 Parathyrin.intact [Mass/volume] in Serum or Plasma 2023-08-13 06:39:51 592 pg/mL F 18.0-80.0 CA CORRECTED 2023-08-13 06:17:55 9.3 mg/dL F CA*PO4 CORRCTD 2023-08-13 06:14:20 34.4 Calc F 21.0-53.0 CA/PHOS PRODUCT 2023-08-13 06:14:20 33.7 Calc F 21.0-53.0 Calcium [Mass/volume] in Serum or Plasma 2023-08-13 06:06:39 9.1 mg/dL F 8.7-10.4 Phosphate [Mass/volume] in Serum or Plasma 2023-08-12 19:43:19 3.7 mg/dL F 2.4-5.1 Alkaline phosphatase [Enzymatic activity/volume] in Serum or Plasma 2023-08-05 19:19:33 93 U/L F 46.0-116.0 Alkaline phosphatase [Enzymatic activity/volume] in Serum or Plasma 2023-08-05 19:19:33 93 U/L F 46.0-116.0 CA CORRECTED 2023-08-01 06:14:04 9.8 mg/dL F CA CORRECTED 2023-08-01 06:14:04 9.8 mg/dL F CA*PO4 CORRCTD 2023-08-01 06:05:33 19.6 Calc F 21.0-53.0 CA/PHOS PRODUCT 2023-08-01 06:05:33 19 Calc F 21.0-53.0 CA*PO4 CORRCTD 2023-08-01 06:05:33 19.6 Calc F 21.0-53.0 CA/PHOS PRODUCT 2023-08-01 06:05:33 19 Calc F 21.0-53.0 Calcium [Mass/volume] in Serum or Plasma 2023-08-01 05:55:45 9.5 mg/dL F 8.7-10.4 Calcium [Mass/volume] in Serum or Plasma 2023-08-01 05:55:45 9.5 mg/dL F 8.7-10.4 Phosphate [Mass/volume] in Serum or Plasma 2023-07-31 23:43:59 2 mg/dL F 2.4-5.1 Alkaline phosphatase [Enzymatic activity/volume] in Serum or Plasma 2023-07-31 23:43:59 91 U/L F 46.0-116.0 Alkaline phosphatase [Enzymatic activity/volume] in Serum or Plasma 2023-07-31 23:43:59 91 U/L F 46.0-116.0 Phosphate [Mass/volume] in Serum or Plasma 2023-07-31 23:43:59 2 mg/dL F 2.4-5.1 Parathyrin.intact [Mass/volume] in Serum or Plasma 2023-07-31 20:48:01 250 pg/mL F 18.0-80.0 Parathyrin.intact [Mass/volume] in Serum or Plasma 2023-07-31 20:48:01 250 pg/mL F 18.0-80.0 Alkaline phosphatase [Enzymatic activity/volume] in Serum or Plasma 2023-07-10 21:16:40 F Recollect - Unsp un specimen Calcium [Mass/volume] in Serum or Plasma 2023-07-10 21:16:40 F Recollect - Unsp un specimen Phosphate [Mass/volume] in Serum or Plasma 2023-07-10 21:16:40 F Recollect - Unsp un specimen Parathyrin.intact [Mass/volume] in Serum or Plasma 2023-07-10 19:44:35 223 pg/mL F 18.0-80.0 CA CORRECTED 2023-05-30 04:17:52 8.8 mg/dL F CA*PO4 CORRCTD 2023-05-30 04:15:51 59 Calc F 21.0-53.0 CA/PHOS PRODUCT 2023-05-30 04:15:51 58.3 Calc F 21.0-53.0 Calcium [Mass/volume] in Serum or Plasma 2023-05-30 04:14:20 8.7 mg/dL F 8.7-10.4 Parathyrin.intact [Mass/volume] in Serum or Plasma 2023-05-29 17:25:56 713 pg/mL F 18.0-80.0 25-Hydroxyvitamin D3+25-Hydroxyvitamin D2 [Mass/volume] in Serum or Plasma 2023-05-29 17:25:54 31.2 ng/mL F Phosphate [Mass/volume] in Serum or Plasma 2023-05-29 16:11:40 6.7 mg/dL F 2.4-5.1 Alkaline phosphatase [Enzymatic activity/volume] in Serum or Plasma 2023-05-29 16:11:40 55 U/L F 46.0-116.0 CA CORRECTED 2023-04-25 06:50:50 8.8 mg/dL F CA*PO4 CORRCTD 2023-04-25 06:37:37 65.1 Calc F 21.0-53.0 CA/PHOS PRODUCT 2023-04-25 06:37:37 65.1 Calc F 21.0-53.0 Calcium [Mass/volume] in Serum or Plasma 2023-04-25 06:22:49 8.8 mg/dL F 8.7-10.4 Parathyrin.intact [Mass/volume] in Serum or Plasma 2023-04-25 02:33:49 714 pg/mL F 18.0-80.0 Phosphate [Mass/volume] in Serum or Plasma 2023-04-24 23:09:39 7.4 mg/dL F 2.4-5.1 Alkaline phosphatase [Enzymatic activity/volume] in Serum or Plasma 2023-04-24 23:09:39 56 U/L F 46.0-116.0 CA CORRECTED 2023-03-28 04:13:53 8.5 mg/dL F CA CORRECTED 2023-03-28 04:13:53 8.5 mg/dL F CA/PHOS PRODUCT 2023-03-28 04:08:01 43.7 Calc F 21.0-53.0 CA*PO4 CORRCTD 2023-03-28 04:08:01 44.2 Calc F 21.0-53.0 CA*PO4 CORRCTD 2023-03-28 04:08:01 44.2 Calc F 21.0-53.0 CA/PHOS PRODUCT 2023-03-28 04:08:01 43.7 Calc F 21.0-53.0 Calcium [Mass/volume] in Serum or Plasma 2023-03-28 04:07:24 8.4 mg/dL F 8.7-10.4 Calcium [Mass/volume] in Serum or Plasma 2023-03-28 04:07:24 8.4 mg/dL F 8.7-10.4 Parathyrin.intact [Mass/volume] in Serum or Plasma 2023-03-27 19:27:20 559 pg/mL F 18.0-80.0 Parathyrin.intact [Mass/volume] in Serum or Plasma 2023-03-27 19:27:20 559 pg/mL F 18.0-80.0 Phosphate [Mass/volume] in Serum or Plasma 2023-03-27 16:17:35 5.2 mg/dL F 2.4-5.1 Alkaline phosphatase [Enzymatic activity/volume] in Serum or Plasma 2023-03-27 16:17:35 61 U/L F 46.0-116.0 Alkaline phosphatase [Enzymatic activity/volume] in Serum or Plasma 2023-03-27 16:17:35 61 U/L F 46.0-116.0 Phosphate [Mass/volume] in Serum or Plasma 2023-03-27 16:17:35 5.2 mg/dL F 2.4-5.1 CA CORRECTED 2023-02-28 04:16:23 8.9 mg/dL F CA CORRECTED 2023-02-28 04:16:23 8.9 mg/dL F CA/PHOS PRODUCT 2023-02-28 04:13:54 43.5 Calc F 21.0-53.0 CA*PO4 CORRCTD 2023-02-28 04:13:54 44.5 Calc F 21.0-53.0 CA*PO4 CORRCTD 2023-02-28 04:13:54 44.5 Calc F 21.0-53.0 CA/PHOS PRODUCT 2023-02-28 04:13:54 43.5 Calc F 21.0-53.0 Calcium [Mass/volume] in Serum or Plasma 2023-02-28 04:12:03 8.7 mg/dL F 8.7-10.4 Calcium [Mass/volume] in Serum or Plasma 2023-02-28 04:12:03 8.7 mg/dL F 8.7-10.4 Phosphate [Mass/volume] in Serum or Plasma 2023-02-27 17:53:34 5 mg/dL F 2.4-5.1 Alkaline phosphatase [Enzymatic activity/volume] in Serum or Plasma 2023-02-27 17:53:34 80 U/L F 46.0-116.0 Alkaline phosphatase [Enzymatic activity/volume] in Serum or Plasma 2023-02-27 17:53:34 80 U/L F 46.0-116.0 Phosphate [Mass/volume] in Serum or Plasma 2023-02-27 17:53:34 5 mg/dL F 2.4-5.1 CA CORRECTED 2023-01-31 05:46:01 8.9 mg/dL F CA CORRECTED 2023-01-31 05:46:01 8.9 mg/dL F CA*PO4 CORRCTD 2023-01-31 05:39:38 40.1 Calc F 21.0-53.0 CA/PHOS PRODUCT 2023-01-31 05:39:38 39.2 Calc F 21.0-53.0 CA/PHOS PRODUCT 2023-01-31 05:39:38 39.2 Calc F 21.0-53.0 CA*PO4 CORRCTD 2023-01-31 05:39:38 40.1 Calc F 21.0-53.0 Calcium [Mass/volume] in Serum or Plasma 2023-01-31 05:25:49 8.7 mg/dL F 8.7-10.4 Calcium [Mass/volume] in Serum or Plasma 2023-01-31 05:25:49 8.7 mg/dL F 8.7-10.4 Phosphate [Mass/volume] in Serum or Plasma 2023-01-30 22:43:25 4.5 mg/dL F 2.4-5.1 Alkaline phosphatase [Enzymatic activity/volume] in Serum or Plasma 2023-01-30 22:43:25 62 U/L F 46.0-116.0 Alkaline phosphatase [Enzymatic activity/volume] in Serum or Plasma 2023-01-30 22:43:25 62 U/L F 46.0-116.0 Phosphate [Mass/volume] in Serum or Plasma 2023-01-30 22:43:25 4.5 mg/dL F 2.4-5.1 CA CORRECTED 2022-12-20 19:24:01 9.1 mg/dL F CA/PHOS PRODUCT 2022-12-20 19:03:25 52.5 Calc F 21.0-53.0 CA*PO4 CORRCTD 2022-12-20 19:03:25 53.7 Calc F 21.0-53.0 Calcium [Mass/volume] in Serum or Plasma 2022-12-20 19:01:38 8.9 mg/dL F 8.7-10.4 Magnesium [Mass/volume] in Serum or Plasma 2022-12-20 13:55:13 2.1 mg/dL F 1.3-2.7 Phosphate [Mass/volume] in Serum or Plasma 2022-12-20 13:55:13 5.9 mg/dL F 2.4-5.1 Alkaline phosphatase [Enzymatic activity/volume] in Serum or Plasma 2022-12-20 13:55:13 57 U/L F 46.0-116.0 25-Hydroxyvitamin D3+25-Hydroxyvitamin D2 [Mass/volume] in Serum or Plasma 2022-12-20 12:42:11 32 ng/mL F Parathyrin.intact [Mass/volume] in Serum or Plasma 2022-12-20 06:22:19 668 pg/mL F 18.0-80.0 CA CORRECTED 2022-08-06 18:24:03 9 mg/dL F CA CORRECTED 2022-08-06 18:24:03 9 mg/dL F CA/PHOS PRODUCT 2022-08-06 18:22:57 17.6 Calc F 21.0-53.0 CA*PO4 CORRCTD 2022-08-06 18:22:57 18 Calc F 21.0-53.0 CA/PHOS PRODUCT 2022-08-06 18:22:57 17.6 Calc F 21.0-53.0 CA*PO4 CORRCTD 2022-08-06 18:22:57 18 Calc F 21.0-53.0 Calcium [Mass/volume] in Serum or Plasma 2022-08-06 17:43:59 8.8 mg/dL F 8.7-10.4 Calcium [Mass/volume] in Serum or Plasma 2022-08-06 17:43:59 8.8 mg/dL F 8.7-10.4 Parathyrin.intact [Mass/volume] in Serum or Plasma 2022-08-06 15:23:53 567 pg/mL F 18.0-80.0 Parathyrin.intact [Mass/volume] in Serum or Plasma 2022-08-06 15:23:53 567 pg/mL F 18.0-80.0 Phosphate [Mass/volume] in Serum or Plasma 2022-08-06 15:00:59 2 mg/dL F 2.4-5.1 Alkaline phosphatase [Enzymatic activity/volume] in Serum or Plasma 2022-08-06 15:00:59 73 U/L F 46.0-116.0 Alkaline phosphatase [Enzymatic activity/volume] in Serum or Plasma 2022-08-06 15:00:59 73 U/L F 46.0-116.0 Phosphate [Mass/volume] in Serum or Plasma 2022-08-06 15:00:59 2 mg/dL F 2.4-5.1 CA CORRECTED 2022-06-29 08:24:58 8.9 mg/dL F CA*PO4 CORRCTD 2022-06-28 07:16:36 11.6 Calc F 21.0-53.0 CA/PHOS PRODUCT 2022-06-28 07:16:36 11.6 Calc F 21.0-53.0 Calcium [Mass/volume] in Serum or Plasma 2022-06-28 05:27:12 8.9 mg/dL F 8.7-10.4 Parathyrin.intact [Mass/volume] in Serum or Plasma 2022-06-28 01:31:11 298 pg/mL F 18.0-80.0 Phosphate [Mass/volume] in Serum or Plasma 2022-06-28 00:23:52 1.3 mg/dL F 2.4-5.1 Alkaline phosphatase [Enzymatic activity/volume] in Serum or Plasma 2022-06-28 00:23:52 60 U/L F 46.0-116.0 CA CORRECTED 2022-05-24 00:29:44 8.4 mg/dL F CA CORRECTED 2022-05-24 00:29:44 8.4 mg/dL F CA/PHOS PRODUCT 2022-05-24 00:19:00 45.4 Calc F 21.0-53.0 CA*PO4 CORRCTD 2022-05-24 00:19:00 45.4 Calc F 21.0-53.0 CA*PO4 CORRCTD 2022-05-24 00:19:00 45.4 Calc F 21.0-53.0 CA/PHOS PRODUCT 2022-05-24 00:19:00 45.4 Calc F 21.0-53.0 Parathyrin.intact [Mass/volume] in Serum or Plasma 2022-05-24 00:18:52 336 pg/mL F 18.0-80.0 Parathyrin.intact [Mass/volume] in Serum or Plasma 2022-05-24 00:18:52 336 pg/mL F 18.0-80.0 Calcium [Mass/volume] in Serum or Plasma 2022-05-23 23:31:32 8.4 mg/dL F 8.7-10.4 Calcium [Mass/volume] in Serum or Plasma 2022-05-23 23:31:32 8.4 mg/dL F 8.7-10.4 25-Hydroxyvitamin D3+25-Hydroxyvitamin D2 [Mass/volume] in Serum or Plasma 2022-05-23 21:59:43 10.2 ng/mL F 30.0-100.0 25-Hydroxyvitamin D3+25-Hydroxyvitamin D2 [Mass/volume] in Serum or Plasma 2022-05-23 21:59:43 10.2 ng/mL F 30.0-100.0 Alkaline phosphatase [Enzymatic activity/volume] in Serum or Plasma 2022-05-23 20:51:42 50 U/L F 46.0-116.0 Phosphate [Mass/volume] in Serum or Plasma 2022-05-23 20:51:42 5.4 mg/dL F 2.4-5.1 Magnesium [Mass/volume] in Serum or Plasma 2022-05-23 20:51:42 2.5 mg/dL F 1.3-2.7 Magnesium [Mass/volume] in Serum or Plasma 2022-05-23 20:51:42 2.5 mg/dL F 1.3-2.7 Phosphate [Mass/volume] in Serum or Plasma 2022-05-23 20:51:42 5.4 mg/dL F 2.4-5.1 Alkaline phosphatase [Enzymatic activity/volume] in Serum or Plasma 2022-05-23 20:51:42 50 U/L F 46.0-116.0 CA CORRECTED Phosphate [Mass/volume] in Serum or Plasma CA/PHOS PRODUCT CA*PO4 CORRCTD Calcium [Mass/volume] in Serum or Plasma Parathyrin.intact [Mass/volume] in Serum or Plasma Calcium [Mass/volume] in Serum or Plasma CA CORRECTED CA/PHOS PRODUCT Calcium [Mass/volume] in Serum or Plasma Phosphate [Mass/volume] in Serum or Plasma CA CORRECTED CA/PHOS PRODUCT CA*PO4 CORRCTD CA*PO4 CORRCTD Phosphate [Mass/volume] in Serum or Plasma Parathyrin.intact [Mass/volume] in Serum or Plasma Parathyrin.intact [Mass/volume] in Serum or Plasma CA CORRECTED F CA*PO4 CORRCTD CA/PHOS PRODUCT Nutrition Description Draw Date Result/Unit Status Ref Range Result Comments Potassium [Moles/volume] in Serum or Plasma 2024-06-02 04:56:01 4.7 mEq/L F 3.5-5.5 A/G RATIO 2024-06-01 17:56:32 1.3 Calc F 1.0-2.5 GLOBULIN 2024-06-01 17:56:32 2.9 g/dL F 0.9-5.0 Albumin [Mass/volume] in Serum or Plasma by Bromocresol green (BCG) dye binding method 2024-06-01 17:55:17 3.7 g/dL F 3.4-4.8 Bicarbonate [Moles/volume] in Serum or Plasma 2024-06-01 17:55:17 22 mEq/L F 20.0-31.0 Lactate dehydrogenase [Enzymatic activity/volume] in Serum or Plasma 2024-06-01 17:55:17 156 U/L F 120.0-246.0 Protein [Mass/volume] in Serum or Plasma 2024-06-01 17:55:17 6.6 g/dL F 5.7-8.2 Potassium [Moles/volume] in Serum or Plasma 2024-05-05 03:53:40 4.7 mEq/L F 3.5-5.5 Potassium [Moles/volume] in Serum or Plasma 2024-05-05 03:53:40 4.7 mEq/L F 3.5-5.5 GLOBULIN 2024-05-04 22:43:32 3.1 g/dL F 0.9-5.0 A/G RATIO 2024-05-04 22:43:32 1.3 Calc F 1.0-2.5 GLOBULIN 2024-05-04 22:43:32 3.1 g/dL F 0.9-5.0 A/G RATIO 2024-05-04 22:43:32 1.3 Calc F 1.0-2.5 Albumin [Mass/volume] in Serum or Plasma by Bromocresol green (BCG) dye binding method 2024-05-04 22:42:24 4.1 g/dL F 3.4-4.8 Protein [Mass/volume] in Serum or Plasma 2024-05-04 22:42:24 7.2 g/dL F 5.7-8.2 Bicarbonate [Moles/volume] in Serum or Plasma 2024-05-04 22:42:24 24 mEq/L F 20.0-31.0 Lactate dehydrogenase [Enzymatic activity/volume] in Serum or Plasma 2024-05-04 22:42:24 138 U/L F 120.0-246.0 Albumin [Mass/volume] in Serum or Plasma by Bromocresol green (BCG) dye binding method 2024-05-04 22:42:24 4.1 g/dL F 3.4-4.8 Bicarbonate [Moles/volume] in Serum or Plasma 2024-05-04 22:42:24 24 mEq/L F 20.0-31.0 Lactate dehydrogenase [Enzymatic activity/volume] in Serum or Plasma 2024-05-04 22:42:24 138 U/L F 120.0-246.0 Protein [Mass/volume] in Serum or Plasma 2024-05-04 22:42:24 7.2 g/dL F 5.7-8.2 Potassium [Moles/volume] in Serum or Plasma 2024-04-06 17:52:08 4.5 mEq/L F 3.5-5.5 GLOBULIN 2024-04-06 16:48:44 3.2 g/dL F 0.9-5.0 A/G RATIO 2024-04-06 16:48:44 1.3 Calc F 1.0-2.5 Albumin [Mass/volume] in Serum or Plasma by Bromocresol green (BCG) dye binding method 2024-04-06 16:48:25 4.2 g/dL F 3.4-4.8 Protein [Mass/volume] in Serum or Plasma 2024-04-06 16:48:25 7.4 g/dL F 5.7-8.2 Bicarbonate [Moles/volume] in Serum or Plasma 2024-04-06 16:48:25 23 mEq/L F 20.0-31.0 Lactate dehydrogenase [Enzymatic activity/volume] in Serum or Plasma 2024-04-06 16:48:25 146 U/L F 120.0-246.0 Potassium [Moles/volume] in Serum or Plasma 2024-03-03 04:17:16 4.8 mEq/L F 3.5-5.5 GLOBULIN 2024-03-02 15:27:25 3.5 g/dL F 0.9-5.0 A/G RATIO 2024-03-02 15:27:25 1.2 Calc F 1.0-2.5 Albumin [Mass/volume] in Serum or Plasma by Bromocresol green (BCG) dye binding method 2024-03-02 15:27:19 4.2 g/dL F 3.4-4.8 Protein [Mass/volume] in Serum or Plasma 2024-03-02 15:27:19 7.7 g/dL F 5.7-8.2 Bicarbonate [Moles/volume] in Serum or Plasma 2024-03-02 15:27:19 21 mEq/L F 20.0-31.0 Lactate dehydrogenase [Enzymatic activity/volume] in Serum or Plasma 2024-03-02 15:27:19 145 U/L F 120.0-246.0 Potassium [Moles/volume] in Serum or Plasma 2024-02-03 18:28:40 5 mEq/L F 3.5-5.5 GLOBULIN 2024-02-03 15:11:55 3.1 g/dL F 0.9-5.0 A/G RATIO 2024-02-03 15:11:55 1.3 Calc F 1.0-2.5 Albumin [Mass/volume] in Serum or Plasma by Bromocresol green (BCG) dye binding method 2024-02-03 15:11:30 4.1 g/dL F 3.4-4.8 Protein [Mass/volume] in Serum or Plasma 2024-02-03 15:11:30 7.2 g/dL F 5.7-8.2 Bicarbonate [Moles/volume] in Serum or Plasma 2024-02-03 15:11:30 23 mEq/L F 20.0-31.0 Lactate dehydrogenase [Enzymatic activity/volume] in Serum or Plasma 2024-02-03 15:11:30 133 U/L F 120.0-246.0 Potassium [Moles/volume] in Serum or Plasma 2023-12-31 06:07:52 4.1 mEq/L F 3.5-5.5 Potassium [Moles/volume] in Serum or Plasma 2023-12-31 06:07:52 4.1 mEq/L F 3.5-5.5 GLOBULIN 2023-12-30 18:38:58 3.1 g/dL F 0.9-5.0 A/G RATIO 2023-12-30 18:38:58 1.3 Calc F 1.0-2.5 A/G RATIO 2023-12-30 18:38:58 1.3 Calc F 1.0-2.5 GLOBULIN 2023-12-30 18:38:58 3.1 g/dL F 0.9-5.0 Protein [Mass/volume] in Serum or Plasma 2023-12-30 18:38:42 7.1 g/dL F 5.7-8.2 Albumin [Mass/volume] in Serum or Plasma by Bromocresol green (BCG) dye binding method 2023-12-30 18:38:42 4 g/dL F 3.4-4.8 Bicarbonate [Moles/volume] in Serum or Plasma 2023-12-30 18:38:42 25 mEq/L F 20.0-31.0 Lactate dehydrogenase [Enzymatic activity/volume] in Serum or Plasma 2023-12-30 18:38:42 150 U/L F 120.0-246.0 Albumin [Mass/volume] in Serum or Plasma by Bromocresol green (BCG) dye binding method 2023-12-30 18:38:42 4 g/dL F 3.4-4.8 Bicarbonate [Moles/volume] in Serum or Plasma 2023-12-30 18:38:42 25 mEq/L F 20.0-31.0 Lactate dehydrogenase [Enzymatic activity/volume] in Serum or Plasma 2023-12-30 18:38:42 150 U/L F 120.0-246.0 Protein [Mass/volume] in Serum or Plasma 2023-12-30 18:38:42 7.1 g/dL F 5.7-8.2 Potassium [Moles/volume] in Serum or Plasma 2023-12-03 04:14:12 3.9 mEq/L F 3.5-5.5 GLOBULIN 2023-12-02 16:53:42 3 g/dL F 0.9-5.0 A/G RATIO 2023-12-02 16:53:42 1.3 Calc F 1.0-2.5 Albumin [Mass/volume] in Serum or Plasma by Bromocresol green (BCG) dye binding method 2023-12-02 16:53:35 3.9 g/dL F 3.4-4.8 Protein [Mass/volume] in Serum or Plasma 2023-12-02 16:53:35 6.9 g/dL F 5.7-8.2 Bicarbonate [Moles/volume] in Serum or Plasma 2023-12-02 16:53:35 24 mEq/L F 20.0-31.0 Lactate dehydrogenase [Enzymatic activity/volume] in Serum or Plasma 2023-12-02 16:53:35 150 U/L F 120.0-246.0 Potassium [Moles/volume] in Serum or Plasma 2023-11-05 04:51:12 3.7 mEq/L F 3.5-5.5 Potassium [Moles/volume] in Serum or Plasma 2023-11-05 04:51:12 3.7 mEq/L F 3.5-5.5 A/G RATIO 2023-11-04 17:42:55 1.3 Calc F 1.0-2.5 GLOBULIN 2023-11-04 17:42:55 3 g/dL F 0.9-5.0 GLOBULIN 2023-11-04 17:42:55 3 g/dL F 0.9-5.0 A/G RATIO 2023-11-04 17:42:55 1.3 Calc F 1.0-2.5 Lactate dehydrogenase [Enzymatic activity/volume] in Serum or Plasma 2023-11-04 17:42:37 131 U/L F 120.0-246.0 Albumin [Mass/volume] in Serum or Plasma by Bromocresol green (BCG) dye binding method 2023-11-04 17:42:37 3.8 g/dL F 3.4-4.8 Bicarbonate [Moles/volume] in Serum or Plasma 2023-11-04 17:42:37 22 mEq/L F 20.0-31.0 Lactate dehydrogenase [Enzymatic activity/volume] in Serum or Plasma 2023-11-04 17:42:37 131 U/L F 120.0-246.0 Protein [Mass/volume] in Serum or Plasma 2023-11-04 17:42:37 6.8 g/dL F 5.7-8.2 Albumin [Mass/volume] in Serum or Plasma by Bromocresol green (BCG) dye binding method 2023-11-04 17:42:37 3.8 g/dL F 3.4-4.8 Protein [Mass/volume] in Serum or Plasma 2023-11-04 17:42:37 6.8 g/dL F 5.7-8.2 Bicarbonate [Moles/volume] in Serum or Plasma 2023-11-04 17:42:37 22 mEq/L F 20.0-31.0 Potassium [Moles/volume] in Serum or Plasma 2023-10-01 03:58:45 3.7 mEq/L F 3.5-5.5 GLOBULIN 2023-09-30 22:10:05 3.2 g/dL F 0.9-5.0 A/G RATIO 2023-09-30 22:10:05 1.2 Calc F 1.0-2.5 Protein [Mass/volume] in Serum or Plasma 2023-09-30 22:09:48 7.1 g/dL F 5.7-8.2 Albumin [Mass/volume] in Serum or Plasma by Bromocresol green (BCG) dye binding method 2023-09-30 22:09:48 3.9 g/dL F 3.4-4.8 Bicarbonate [Moles/volume] in Serum or Plasma 2023-09-30 22:09:48 24 mEq/L F 20.0-31.0 Lactate dehydrogenase [Enzymatic activity/volume] in Serum or Plasma 2023-09-30 22:09:48 142 U/L F 120.0-246.0 Potassium [Moles/volume] in Serum or Plasma 2023-09-03 05:05:09 3.4 mEq/L F 3.5-5.5 GLOBULIN 2023-09-02 20:00:25 3.4 g/dL F 0.9-5.0 A/G RATIO 2023-09-02 20:00:25 1.3 Calc F 1.0-2.5 Albumin [Mass/volume] in Serum or Plasma by Bromocresol green (BCG) dye binding method 2023-09-02 19:59:25 4.3 g/dL F 3.4-4.8 Protein [Mass/volume] in Serum or Plasma 2023-09-02 19:59:25 7.7 g/dL F 5.7-8.2 Bicarbonate [Moles/volume] in Serum or Plasma 2023-09-02 19:59:25 23 mEq/L F 20.0-31.0 Lactate dehydrogenase [Enzymatic activity/volume] in Serum or Plasma 2023-09-02 19:59:25 197 U/L F 120.0-246.0 Potassium [Moles/volume] in Serum or Plasma 2023-08-06 04:52:47 3.9 mEq/L F 3.5-5.5 Potassium [Moles/volume] in Serum or Plasma 2023-08-06 04:52:47 3.9 mEq/L F 3.5-5.5 Folate [Mass/volume] in Serum or Plasma 2023-08-05 21:16:29 5.9 ng/mL F 5.5-16.0 Folate [Mass/volume] in Serum or Plasma 2023-08-05 21:16:29 5.9 ng/mL F 5.5-16.0 A/G RATIO 2023-08-05 19:19:44 1.1 Calc F 1.0-2.5 GLOBULIN 2023-08-05 19:19:44 3.4 g/dL F 0.9-5.0 A/G RATIO 2023-08-05 19:19:44 1.1 Calc F 1.0-2.5 GLOBULIN 2023-08-05 19:19:44 3.4 g/dL F 0.9-5.0 Albumin [Mass/volume] in Serum or Plasma by Bromocresol green (BCG) dye binding method 2023-08-05 19:19:33 3.7 g/dL F 3.4-4.8 Bicarbonate [Moles/volume] in Serum or Plasma 2023-08-05 19:19:33 23 mEq/L F 20.0-31.0 Lactate dehydrogenase [Enzymatic activity/volume] in Serum or Plasma 2023-08-05 19:19:33 139 U/L F 120.0-246.0 Protein [Mass/volume] in Serum or Plasma 2023-08-05 19:19:33 7.1 g/dL F 5.7-8.2 Albumin [Mass/volume] in Serum or Plasma by Bromocresol green (BCG) dye binding method 2023-08-05 19:19:33 3.7 g/dL F 3.4-4.8 Protein [Mass/volume] in Serum or Plasma 2023-08-05 19:19:33 7.1 g/dL F 5.7-8.2 Bicarbonate [Moles/volume] in Serum or Plasma 2023-08-05 19:19:33 23 mEq/L F 20.0-31.0 Lactate dehydrogenase [Enzymatic activity/volume] in Serum or Plasma 2023-08-05 19:19:33 139 U/L F 120.0-246.0 Potassium [Moles/volume] in Serum or Plasma 2023-08-01 05:55:45 3.6 mEq/L F 3.5-5.5 Potassium [Moles/volume] in Serum or Plasma 2023-08-01 05:55:45 3.6 mEq/L F 3.5-5.5 Cobalamin (Vitamin B12) [Mass/volume] in Serum or Plasma 2023-08-01 04:33:20 433 pg/mL F 211.0-911.0 Cobalamin (Vitamin B12) [Mass/volume] in Serum or Plasma 2023-08-01 04:33:20 433 pg/mL F 211.0-911.0 GLOBULIN 2023-07-31 23:44:57 3.6 g/dL F 0.9-5.0 A/G RATIO 2023-07-31 23:44:57 1 Calc F 1.0-2.5 GLOBULIN 2023-07-31 23:44:57 3.6 g/dL F 0.9-5.0 A/G RATIO 2023-07-31 23:44:57 1 Calc F 1.0-2.5 Albumin [Mass/volume] in Serum or Plasma by Bromocresol green (BCG) dye binding method 2023-07-31 23:43:59 3.6 g/dL F 3.4-4.8 Protein [Mass/volume] in Serum or Plasma 2023-07-31 23:43:59 7.2 g/dL F 5.7-8.2 Bicarbonate [Moles/volume] in Serum or Plasma 2023-07-31 23:43:59 27 mEq/L F 20.0-31.0 Glucose [Mass/volume] in Serum or Plasma 2023-07-31 23:43:59 184 mg/dL F 70.0-99.0 Lactate dehydrogenase [Enzymatic activity/volume] in Serum or Plasma 2023-07-31 23:43:59 110 U/L F 120.0-246.0 Albumin [Mass/volume] in Serum or Plasma by Bromocresol green (BCG) dye binding method 2023-07-31 23:43:59 3.6 g/dL F 3.4-4.8 Bicarbonate [Moles/volume] in Serum or Plasma 2023-07-31 23:43:59 27 mEq/L F 20.0-31.0 Glucose [Mass/volume] in Serum or Plasma 2023-07-31 23:43:59 184 mg/dL F 70.0-99.0 Lactate dehydrogenase [Enzymatic activity/volume] in Serum or Plasma 2023-07-31 23:43:59 110 U/L F 120.0-246.0 Protein [Mass/volume] in Serum or Plasma 2023-07-31 23:43:59 7.2 g/dL F 5.7-8.2 A/G RATIO 2023-07-10 21:17:40 F Recollect - Unsp un specimen GLOBULIN 2023-07-10 21:17:40 F Recollect - Unsp un specimen Protein [Mass/volume] in Serum or Plasma 2023-07-10 21:16:40 F Recollect - Unsp un specimen Potassium [Moles/volume] in Serum or Plasma 2023-07-10 21:16:40 F Recollect - Unsp un specimen Glucose [Mass/volume] in Serum or Plasma 2023-07-10 21:16:40 F Recollect - Unsp un specimen Bicarbonate [Moles/volume] in Serum or Plasma 2023-07-10 21:16:40 F Recollect - Unsp un specimen Lactate dehydrogenase [Enzymatic activity/volume] in Serum or Plasma 2023-07-10 21:16:40 F Recollect - Unsp un specimen Albumin [Mass/volume] in Serum or Plasma by Bromocresol green (BCG) dye binding method 2023-07-10 21:16:40 F Recollect - Unsp un specimen Cobalamin (Vitamin B12) [Mass/volume] in Serum or Plasma 2023-07-10 19:44:35 681 pg/mL F 211.0-911.0 Potassium [Moles/volume] in Serum or Plasma 2023-05-30 04:14:20 4.3 mEq/L F 3.5-5.5 Folate [Mass/volume] in Serum or Plasma 2023-05-29 17:25:54 7.8 ng/mL F 5.5-16.0 Cobalamin (Vitamin B12) [Mass/volume] in Serum or Plasma 2023-05-29 17:25:54 503 pg/mL F 211.0-911.0 GLOBULIN 2023-05-29 16:12:30 3.5 g/dL F 0.9-5.0 A/G RATIO 2023-05-29 16:12:30 1.1 Calc F 1.0-2.5 Albumin [Mass/volume] in Serum or Plasma by Bromocresol green (BCG) dye binding method 2023-05-29 16:11:40 3.9 g/dL F 3.4-4.8 Protein [Mass/volume] in Serum or Plasma 2023-05-29 16:11:40 7.4 g/dL F 5.7-8.2 Bicarbonate [Moles/volume] in Serum or Plasma 2023-05-29 16:11:40 23 mEq/L F 20.0-31.0 Glucose [Mass/volume] in Serum or Plasma 2023-05-29 16:11:40 269 mg/dL F 70.0-99.0 Lactate dehydrogenase [Enzymatic activity/volume] in Serum or Plasma 2023-05-29 16:11:40 156 U/L F 120.0-246.0 Cobalamin (Vitamin B12) [Mass/volume] in Serum or Plasma 2023-04-25 02:33:34 544 pg/mL F 211.0-911.0 GLOBULIN 2023-04-24 23:10:13 3.6 g/dL F 0.9-5.0 A/G RATIO 2023-04-24 23:10:13 1.2 Calc F 1.0-2.5 Albumin [Mass/volume] in Serum or Plasma by Bromocresol green (BCG) dye binding method 2023-04-24 23:09:39 4.2 g/dL F 3.4-4.8 Potassium [Moles/volume] in Serum or Plasma 2023-04-24 23:09:39 4.6 mEq/L F 3.5-5.5 Protein [Mass/volume] in Serum or Plasma 2023-04-24 23:09:39 7.8 g/dL F 5.7-8.2 Bicarbonate [Moles/volume] in Serum or Plasma 2023-04-24 23:09:39 23 mEq/L F 20.0-31.0 Glucose [Mass/volume] in Serum or Plasma 2023-04-24 23:09:39 222 mg/dL F 70.0-99.0 Lactate dehydrogenase [Enzymatic activity/volume] in Serum or Plasma 2023-04-24 23:09:39 180 U/L F 120.0-246.0 Cobalamin (Vitamin B12) [Mass/volume] in Serum or Plasma 2023-03-28 04:49:22 458 pg/mL F 211.0-911.0 Cobalamin (Vitamin B12) [Mass/volume] in Serum or Plasma 2023-03-28 04:49:22 458 pg/mL F 211.0-911.0 GLOBULIN 2023-03-27 16:18:18 3.4 g/dL F 0.9-5.0 A/G RATIO 2023-03-27 16:18:18 1.1 Calc F 1.0-2.5 A/G RATIO 2023-03-27 16:18:18 1.1 Calc F 1.0-2.5 GLOBULIN 2023-03-27 16:18:18 3.4 g/dL F 0.9-5.0 Albumin [Mass/volume] in Serum or Plasma by Bromocresol green (BCG) dye binding method 2023-03-27 16:17:35 3.9 g/dL F 3.4-4.8 Potassium [Moles/volume] in Serum or Plasma 2023-03-27 16:17:35 4.2 mEq/L F 3.5-5.5 Protein [Mass/volume] in Serum or Plasma 2023-03-27 16:17:35 7.3 g/dL F 5.7-8.2 Bicarbonate [Moles/volume] in Serum or Plasma 2023-03-27 16:17:35 25 mEq/L F 20.0-31.0 Glucose [Mass/volume] in Serum or Plasma 2023-03-27 16:17:35 164 mg/dL F 70.0-99.0 Lactate dehydrogenase [Enzymatic activity/volume] in Serum or Plasma 2023-03-27 16:17:35 182 U/L F 120.0-246.0 Albumin [Mass/volume] in Serum or Plasma by Bromocresol green (BCG) dye binding method 2023-03-27 16:17:35 3.9 g/dL F 3.4-4.8 Bicarbonate [Moles/volume] in Serum or Plasma 2023-03-27 16:17:35 25 mEq/L F 20.0-31.0 Lactate dehydrogenase [Enzymatic activity/volume] in Serum or Plasma 2023-03-27 16:17:35 182 U/L F 120.0-246.0 Potassium [Moles/volume] in Serum or Plasma 2023-03-27 16:17:35 4.2 mEq/L F 3.5-5.5 Glucose [Mass/volume] in Serum or Plasma 2023-03-27 16:17:35 164 mg/dL F 70.0-99.0 Protein [Mass/volume] in Serum or Plasma 2023-03-27 16:17:35 7.3 g/dL F 5.7-8.2 Cobalamin (Vitamin B12) [Mass/volume] in Serum or Plasma 2023-02-28 00:13:49 486 pg/mL F 211.0-911.0 Cobalamin (Vitamin B12) [Mass/volume] in Serum or Plasma 2023-02-28 00:13:49 486 pg/mL F 211.0-911.0 GLOBULIN 2023-02-27 17:53:58 3.5 g/dL F 0.9-5.0 A/G RATIO 2023-02-27 17:53:58 1.1 Calc F 1.0-2.5 A/G RATIO 2023-02-27 17:53:58 1.1 Calc F 1.0-2.5 GLOBULIN 2023-02-27 17:53:58 3.5 g/dL F 0.9-5.0 Albumin [Mass/volume] in Serum or Plasma by Bromocresol green (BCG) dye binding method 2023-02-27 17:53:34 3.8 g/dL F 3.4-4.8 Potassium [Moles/volume] in Serum or Plasma 2023-02-27 17:53:34 4.5 mEq/L F 3.5-5.5 Protein [Mass/volume] in Serum or Plasma 2023-02-27 17:53:34 7.3 g/dL F 5.7-8.2 Bicarbonate [Moles/volume] in Serum or Plasma 2023-02-27 17:53:34 25 mEq/L F 20.0-31.0 Glucose [Mass/volume] in Serum or Plasma 2023-02-27 17:53:34 275 mg/dL F 70.0-99.0 Lactate dehydrogenase [Enzymatic activity/volume] in Serum or Plasma 2023-02-27 17:53:34 255 U/L F 120.0-246.0 Albumin [Mass/volume] in Serum or Plasma by Bromocresol green (BCG) dye binding method 2023-02-27 17:53:34 3.8 g/dL F 3.4-4.8 Bicarbonate [Moles/volume] in Serum or Plasma 2023-02-27 17:53:34 25 mEq/L F 20.0-31.0 Glucose [Mass/volume] in Serum or Plasma 2023-02-27 17:53:34 275 mg/dL F 70.0-99.0 Lactate dehydrogenase [Enzymatic activity/volume] in Serum or Plasma 2023-02-27 17:53:34 255 U/L F 120.0-246.0 Potassium [Moles/volume] in Serum or Plasma 2023-02-27 17:53:34 4.5 mEq/L F 3.5-5.5 Protein [Mass/volume] in Serum or Plasma 2023-02-27 17:53:34 7.3 g/dL F 5.7-8.2 GLOBULIN 2023-01-30 22:43:33 2.8 g/dL F 0.9-5.0 A/G RATIO 2023-01-30 22:43:33 1.4 Calc F 1.0-2.5 A/G RATIO 2023-01-30 22:43:33 1.4 Calc F 1.0-2.5 GLOBULIN 2023-01-30 22:43:33 2.8 g/dL F 0.9-5.0 Potassium [Moles/volume] in Serum or Plasma 2023-01-30 22:43:25 4.1 mEq/L F 3.5-5.5 Albumin [Mass/volume] in Serum or Plasma by Bromocresol green (BCG) dye binding method 2023-01-30 22:43:25 3.8 g/dL F 3.4-4.8 Protein [Mass/volume] in Serum or Plasma 2023-01-30 22:43:25 6.6 g/dL F 5.7-8.2 Bicarbonate [Moles/volume] in Serum or Plasma 2023-01-30 22:43:25 26 mEq/L F 20.0-31.0 Glucose [Mass/volume] in Serum or Plasma 2023-01-30 22:43:25 250 mg/dL F 70.0-99.0 Lactate dehydrogenase [Enzymatic activity/volume] in Serum or Plasma 2023-01-30 22:43:25 219 U/L F 120.0-246.0 Albumin [Mass/volume] in Serum or Plasma by Bromocresol green (BCG) dye binding method 2023-01-30 22:43:25 3.8 g/dL F 3.4-4.8 Bicarbonate [Moles/volume] in Serum or Plasma 2023-01-30 22:43:25 26 mEq/L F 20.0-31.0 Glucose [Mass/volume] in Serum or Plasma 2023-01-30 22:43:25 250 mg/dL F 70.0-99.0 Lactate dehydrogenase [Enzymatic activity/volume] in Serum or Plasma 2023-01-30 22:43:25 219 U/L F 120.0-246.0 Potassium [Moles/volume] in Serum or Plasma 2023-01-30 22:43:25 4.1 mEq/L F 3.5-5.5 Protein [Mass/volume] in Serum or Plasma 2023-01-30 22:43:25 6.6 g/dL F 5.7-8.2 Cobalamin (Vitamin B12) [Mass/volume] in Serum or Plasma 2023-01-30 19:46:35 617 pg/mL F 211.0-911.0 Cobalamin (Vitamin B12) [Mass/volume] in Serum or Plasma 2023-01-30 19:46:35 617 pg/mL F 211.0-911.0 GLOBULIN 2022-12-20 13:55:37 3.1 g/dL F 0.9-5.0 A/G RATIO 2022-12-20 13:55:37 1.2 Calc F 1.0-2.5 CHOL/HDL RATIO 2022-12-20 13:55:37 3.1 Calc F 3.3-5.0 VLDL-CHOL(CALC) 2022-12-20 13:55:37 15 mg/dL F 0.0-29.0 LDL-CHOLESTEROL 2022-12-20 13:55:37 44 mg/dL F 0.0-99.0 Albumin [Mass/volume] in Serum or Plasma by Bromocresol green (BCG) dye binding method 2022-12-20 13:55:13 3.8 g/dL F 3.4-4.8 Potassium [Moles/volume] in Serum or Plasma 2022-12-20 13:55:13 4.6 mEq/L F 3.5-5.5 Protein [Mass/volume] in Serum or Plasma 2022-12-20 13:55:13 6.9 g/dL F 5.7-8.2 Protein [Mass/volume] in Serum or Plasma 2022-12-20 13:55:13 74 mg/dL F 0.0-149.0 Cholesterol [Mass/volume] in Serum or Plasma 2022-12-20 13:55:13 87 mg/dL F 0.0-199.0 Bicarbonate [Moles/volume] in Serum or Plasma 2022-12-20 13:55:13 27 mEq/L F 20.0-31.0 Cholesterol in HDL [Mass/volume] in Serum or Plasma 2022-12-20 13:55:13 28 mg/dL F 40.0-60.0 Glucose [Mass/volume] in Serum or Plasma 2022-12-20 13:55:13 255 mg/dL F 70.0-99.0 Lactate dehydrogenase [Enzymatic activity/volume] in Serum or Plasma 2022-12-20 13:55:13 189 U/L F 120.0-246.0 Folate [Mass/volume] in Serum or Plasma 2022-12-20 12:42:11 15.2 ng/mL F 5.5-16.0 Cobalamin (Vitamin B12) [Mass/volume] in Serum or Plasma 2022-12-20 12:42:11 757 pg/mL F 211.0-911.0 GLOBULIN 2022-08-06 15:24:56 2.8 g/dL K 0.9-5.0 A/G RATIO 2022-08-06 15:24:56 1.3 Calc K 1.0-2.5 A/G RATIO 2022-08-06 15:24:56 1.3 Calc K 1.0-2.5 GLOBULIN 2022-08-06 15:24:56 2.8 g/dL K 0.9-5.0 Albumin [Mass/volume] in Serum or Plasma by Bromocresol green (BCG) dye binding method 2022-08-06 15:00:59 3.7 g/dL F 3.4-4.8 Potassium [Moles/volume] in Serum or Plasma 2022-08-06 15:00:59 4 mEq/L F 3.5-5.5 Protein [Mass/volume] in Serum or Plasma 2022-08-06 15:00:59 6.5 g/dL F 5.7-8.2 Bicarbonate [Moles/volume] in Serum or Plasma 2022-08-06 15:00:59 24 mEq/L F 20.0-31.0 Lactate dehydrogenase [Enzymatic activity/volume] in Serum or Plasma 2022-08-06 15:00:59 172 U/L F 120.0-246.0 Albumin [Mass/volume] in Serum or Plasma by Bromocresol green (BCG) dye binding method 2022-08-06 15:00:59 3.7 g/dL F 3.4-4.8 Bicarbonate [Moles/volume] in Serum or Plasma 2022-08-06 15:00:59 24 mEq/L F 20.0-31.0 Lactate dehydrogenase [Enzymatic activity/volume] in Serum or Plasma 2022-08-06 15:00:59 172 U/L F 120.0-246.0 Protein [Mass/volume] in Serum or Plasma 2022-08-06 15:00:59 6.5 g/dL F 5.7-8.2 Potassium [Moles/volume] in Serum or Plasma 2022-08-06 15:00:59 4 mEq/L F 3.5-5.5 GLOBULIN 2022-06-28 00:24:38 3 g/dL F 0.9-5.0 A/G RATIO 2022-06-28 00:24:38 1.3 Calc F 1.0-2.5 Albumin [Mass/volume] in Serum or Plasma by Bromocresol green (BCG) dye binding method 2022-06-28 00:23:52 4 g/dL F 3.4-4.8 Potassium [Moles/volume] in Serum or Plasma 2022-06-28 00:23:52 3.5 mEq/L F 3.5-5.5 Protein [Mass/volume] in Serum or Plasma 2022-06-28 00:23:52 7 g/dL F 5.7-8.2 Bicarbonate [Moles/volume] in Serum or Plasma 2022-06-28 00:23:52 26 mEq/L F 20.0-31.0 Lactate dehydrogenase [Enzymatic activity/volume] in Serum or Plasma 2022-06-28 00:23:52 203 U/L F 120.0-246.0 A/G RATIO 2022-05-23 20:52:25 1.4 Calc F 1.0-2.5 GLOBULIN 2022-05-23 20:52:25 3 g/dL F 0.9-5.0 GLOBULIN 2022-05-23 20:52:25 3 g/dL F 0.9-5.0 A/G RATIO 2022-05-23 20:52:25 1.4 Calc F 1.0-2.5 Albumin [Mass/volume] in Serum or Plasma by Bromocresol green (BCG) dye binding method 2022-05-23 20:51:42 4.1 g/dL F 3.4-4.8 Lactate dehydrogenase [Enzymatic activity/volume] in Serum or Plasma 2022-05-23 20:51:42 155 U/L F 120.0-246.0 Bicarbonate [Moles/volume] in Serum or Plasma 2022-05-23 20:51:42 22 mEq/L F 20.0-31.0 Potassium [Moles/volume] in Serum or Plasma 2022-05-23 20:51:42 3.4 mEq/L F 3.5-5.5 Protein [Mass/volume] in Serum or Plasma 2022-05-23 20:51:42 7.1 g/dL F 5.7-8.2 Albumin [Mass/volume] in Serum or Plasma by Bromocresol green (BCG) dye binding method 2022-05-23 20:51:42 4.1 g/dL F 3.4-4.8 Potassium [Moles/volume] in Serum or Plasma 2022-05-23 20:51:42 3.4 mEq/L F 3.5-5.5 Protein [Mass/volume] in Serum or Plasma 2022-05-23 20:51:42 7.1 g/dL F 5.7-8.2 Bicarbonate [Moles/volume] in Serum or Plasma 2022-05-23 20:51:42 22 mEq/L F 20.0-31.0 Lactate dehydrogenase [Enzymatic activity/volume] in Serum or Plasma 2022-05-23 20:51:42 155 U/L F 120.0-246.0 Encounters No encounter information to report Immunizations Ordered Immunization Name Filled Immunization Name Date Status Comments Refusal Reason TST-PPD intradermal 2023-08-11 18:32:37 TST-PPD intradermal 2023-07-25 21:31:11 TST-PPD intradermal 2022-06-26 19:24:31 TST-PPD intradermal 2022-05-22 13:56:33 Pneumococcal Vaccination 2019-05-15 06:00:00 Plan of Treatment Planned Activity Provider Planned Date Details Commen ts Diagnostic Test Pending Christen Ng 2023-08-14 06:00:00 Alanine aminotransferase [Enzymatic activity/volume] in Serum or Plasma [code = 1742-6] Diagnostic Test Pending Christen Ng 2023-09-14 05:00:00 Ferritin [Mass/volume] in Serum or Plasma [code = 2276-4] Diagnostic Test Pending Christen Ng 2023-08-14 07:40:46 Hemoglobin [Mass/volume] in Blood [code = 718-7] Diagnostic Test Pending Christen Ng 2023-08-04 06:00:00 Creatinine [Mass/volume] in Serum or Plasma [code = 2160-0] Diagnostic Test Pending Christen Ng 2023-08-04 06:00:00 Potassium [Moles/volume] in Serum or Plasma [code = 2823-3] Diagnostic Test Pending Christen Ng 2023-08-04 06:00:00 Sodium [Moles/volume] in Serum or Plasma [code = 2951-2] Diagnostic Test Pending Christen Ng 2023-08-04 06:00:00 Folate [Mass/volume] in Serum or Plasma [code = 2284-8] Diagnostic Test Pending Christen Ng 2023-08-04 07:49:45 Parathyrin.intact [Mass/volume] in Serum or Plasma [code = 2731-8] Diagnostic Test Pending Christen Ng 2023-08-04 06:00:00 Albumin [Mass/volume] in Serum or Plasma by Bromocresol green (BCG) dye binding method [code = 36336-8] Diagnostic Test Pending Christen Ng 2023-08-04 06:00:00 Aluminum [Mass/volume] in Serum or Plasma [code = 5574-9] Diagnostic Test Pending Christen Ng [facility] 2024-04-02 19:42:17 In-Center Hemodialysis Treatment [code = GRN424]
--- OUTSIDE RECORDS SUMMARY | 2024-06-22 17:59 | XMS_ITS | Encounter Summary ---
Author Organization [facility] Address [address] [place] [address]. [place] [address] [place] [address] Care Team Providers Care Dot Etcher Name Role Phone Mery Maxwell MD Primary Care Provider [phone] Reason for Visit * Reason Comments Hypertension Encounter Details Date Type Department Care Team (Late st Contact Info) Description 05/28/2024 12:25 AM ASSOCIATE PROFESSOR OF ART - 05/28/2024 3:32 AM [facility] [address] [facility] [place] [place] [address] Bishop Abdi, DO [address] [place], [place] [id number] Hypertension Discharge Disposition: Home or Self Care (Routine Discharge) Social History Tobacco Use Types Packs/Day Years Used Date Smoking Tobacco: Former Cigarettes 1 15 Smokeless Tobacco: Never Alcohol Use Standard Drinks/Week Comments Not Currently 0 (1 standard drink = 0.6 oz pur e alcohol) [facility] Utilities Answer Date Recorded In the past 12 months has e [employer], gas, oil, or water [employer] threatened to shut off services in your [...] place to sleep or slept in a alf (including now)? Patient declined 09/01/2023 Housing Stability [...] any time in the past 12 m [facility], were you homeless or living in a alf (including now)? No 03/28/2024 Sex and Gender Information Value Date Recorded Sex Assigned at Not on file Legal Sex Male 6:24 PM CDT Gender Identity Not on file Sexual Orientation Not on file documented as of this encounter Last Filed Vital Signs Vital Sign Reading Time Taken Comments Blood Pressure 195/92 05/28/2024 3:00 AM ASSOCIATE PROFESSOR OF ART Pulse 82 05/28/2024 3:00 AM ASSOCIATE PROFESSOR OF ART Temperature 37.1 ??C (98.7 ??F) 05/28/2024 12:[address] Respiratory Rate 27 05/28/2024 3:00 AM ASSOCIATE PROFESSOR OF ART Oxygen Saturation 95% 05/28/2024 3:00 AM ASSOCIATE PROFESSOR OF ART Inhaled Oxygen Concentration - - Weight 122.5 kg (270 lb) 05/28/2024 12:32 AM ASSOCIATE PROFESSOR OF ART Height 188 cm (6' 2 ) 05/28/2024 12:32 AM ASSOCIATE PROFESSOR OF ART Body Mass Index 34.67 05/28/2024 12:32 AM ASSOCIATE PROFESSOR OF ART documented in this encounter Functional Status * Are you deaf or do you have serious difficulty hearing Answer Date of Assessment Author Status No 03/28/2024 5:25 PM CDT Christina Mercado Nu [employer]se [employer] Manager II Active * Are you blind or do you have serious difficulty seeing, even when wearing glasses? Answer Date of Assessment Author Status No 03/28/2024 5:25 PM CDT Christina Mercado Nu [employer] Manager II Active * Do you have serious difficulty walking or climbing stairs? Answer Date of Assessment Author Status Yes 03/28/2024 5:25 PM CDT Christina Mercado Nu [employer]se [employer] Shop Manager II Active * Do you have difficulty dressing or bathing? Answer Date of Assessment Author Status Yes 03/28/2024 5:25 PM CDT Christina Mercado Nu [employer]se [employer] Shop Manager II Active * Because of a physical, mental, or emotional condition, do you have difficulty doing errands alone such as visiting a doctor's office or shopping? Answer Date of Assessment Author Status Yes 03/28/2024 5:25 PM CDT Christina Mercado Nu [employer] Shop Manager II Active documented as of this encounter Mental Status * Because of a physical, mental, or emotional condition, do you have serious difficulty concentrating, remembering, or making decisions? Answer Entry Date Author Status No 03/28/2024 5:25 PM CDT Christina Mercado Nu [employer] Manager II Active documented in this encounter Discharge Instructions * Discharge Instructions* Bishop Abdi, - 05/28/2024 2:41 AM ASSOCIATE PROFESSOR OF ART Continue current medications. Take carvedilol as needed based on previous instructions. CIATE PROFESSOR OF ART * Attachments The following attachments cannot be sent through Care Everywhere. * High Blood Pressure Discharge Instructions (Cymraes) documented in this encounter Medications at Time [...] MINI PEN NEEDLES 31G X 5 MM [facility] 03/02/2024 BD VEO INSULIN SYRINGE U/F 31G X 15/64 0.5 ML [facility] 11/17/2023 Continuous Glucose Transmitter (DEXCOM G6 TRANSMITTER) [facility] 03/08/2024 ELIQUIS 5 MG tablet Take 1 [...] with meals. 03/16/2024 traMADol (ULTRAM) 50 MG tabletIndications: Acute Pain < 7 Day Supply Indications: Acute Pain < 7 Day Supply 1-2 every 6 hours as needed for pain 20 tablet 08/19/2023 TRUE METRIX BLOOD GLUCOSE TEST test strip use 1 strip to check glucose three times daily 02/01/2024 documented as of this encounter ED Notes * Christine Peter RN - 05/28/2024 3:15 AM CST [facility] calls and denies patient transfer due to the lack of medical necessity. CIATE PROFESSOR OF ART * Christine Peter RN - 05/28/2024 3:10 AM CST Provider speaks with patient and explains that the patient does not meet medical necessity. Provider requests staff to call [facility] for confirmation on their ability to transfer the patient. CIATE PROFESSOR OF ART * Christine Peter RN - 05/28/2024 2:45 AM CST Patient requesting ambulance for transport home, but patient does not meet medically neccesity. Patient requests to talk with provider. CIATE PROFESSOR OF ART * Bishop Abdi DO - 05/28/2024 12:40 AM CST Chief Complaint Chief Complaint Patient presents with Hypertension History of Present Illness 53-year-old male presents the emergency department via EMS complaining of elevated blood pressure. Patient has end-stage renal disease and received dialysis yesterday. He states that he wasstill fluid overloaded following completion of his normal session. Patient denies chest pain, but reports some shortness of breath, dizziness, and headache. He reports that he has occasional hypotension and hypertensive spells. He is prescribed carvedilol to take as needed for hypertension and he took a dose at 2330 hrs. He had not taken any during the day prior. He reports that he does still make urine and urinated within the past 24 hours. He denies nausea, vomiting, diarrhea. History provided by: Patient and EMS personnel raw sampler used: No Hypertension Medical History ALLERGIES: Review of patient's allergies indicates: Allergen Reactions Amoxicillin Hives MEDICATIONS: Prior to Admission medications Medication Sig Start Date End Date Taking? Authorizing Provider allopurinol (ZYLOPRIM) 100 MG tablet Take 1 tablet (100 mg total) by mouth 2 (two) times daily. 08/03/23 Default History Genericprovider amiodarone (PACERONE) 200 MG tablet Take 0.5 tablets (100 mg total) by mouth daily. 02/03/24 Martha Lynn, ANP- atorvastatin (LIPITOR) 20 MG tablet Take 1 tablet (20 mg total) by mouth daily. 08/03/23 Default History Genericprovider B-D UF III MINI PEN NEEDLES 31G X 5 MM [facility] 03/02/24 Default History Genericprovider BD VEO INSULIN SYRINGE U/F 31G X 15/64 0.5 ML [facility] 11/17/23 Default History Genericprovider Continuous Glucose Transmitter (DEXCOM G6 TRANSMITTER) [facility] 03/08/24 Default History Genericprovider ELIQUIS 5 MG tablet Take 1 tablet (5 mg total) by mouth 2 (two) times daily. 08/03/23 Default History Genericprovider gabapentin (NEURONTIN) 100 MG capsule Take 1 capsule (100 mg total) by mouth 2 (two) times a day. 08/03/23 Default History Genericprovider insulin lispro, 1 Unit Dial, (HUMALOG) 100 UNIT/ML injection (PEN) Inject 10 Units into the skin 3 (three) times daily before meals. 12/17/22 Default History Genericprovider LANTUS SOLOSTAR 100 UNIT/ML injection (PEN) Inject 17 Units into the skin nightly at bedtime. 08/03/23 Default History Genericprovider pantoprazole EC (PROTONIX) 40 MG tablet Take 1 tablet (40 mg total) by mouth 2 (two) times a day. 03/16/24 Default History Genericprovider sevelamer carbonate (RENVELA) 800 MG tablet Take 1 tablet (800 mg total) by mouth 3 (three) times daily with meals. 03/16/24 Default History Genericprovider traMADol (ULTRAM) 50 MG tablet Indications: Acute Pain < 7 Day Supply 1-2 every 6 hours as needed for pain 08/19/23 Vinay Mosher MD TRUE METRIX BLOOD GLUCOSE TEST test strip use 1 strip to check glucose three times daily 02/01/24 Default History Genericprovider PAST MEDICAL HISTORY: Past Medical History: Diagnosis Date A-fib ([facility]) Constipation Diabetes mellitus ([facility]) ESRD (end stage renal disease) ([facility]) GERD (gastroesophageal reflux disease) Gout, unspecified High cholesterol Neuropathy 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[facility]) Renal disorder PAST SURGICAL HISTORY: Past Surgical History: Procedure Laterality Date FISTULA CANNULATION SET, EA TONSILLECTOMY FAMILY HISTORY: Family History Problem Relation Name Age of Onset Diabetes Mother Hypertension Mother Hypertension Father Diabetes Father Alzheimer's disease Father Diabetes Sister SOCIAL HISTORY: Social History Tobacco Use Smoking status: Former Current packs/day: 1.00 Average packs/day: 1 pack/day for 15.0 years (15.0 ttl pk-yrs) Types: Cigarettes Smokeless tobacco: Never Vaping Use Vaping status: Never Used Substance Use Topics Alcohol use: Not Currently Drug use: Not Currently Review of Systems Review of Systems All other systems reviewed and are negative. Physical Exam Filed Vitals: 05/28/24 0037 05/28/24 0122 05/28/24 0130 05/28/24 0204 BP: (!) 186/98 (!) 181/94 (!) 168/79 (!) 170/94 Pulse: 80 76 75 Resp: 23 20 27 Temp: TempSrc: SpO2: 95% 93% 96% Weight: Height: Physical Exam Vitals and nursing note reviewed. Constitutional: General: He is not in acute distress. Appearance: He is well-developed. He is not diaphoretic. HENT: Head: Normocephalic and atraumatic. Eyes: Conjunctiva/sclera: Conjunctivae normal. Cardiovascular: Rate and Rhythm: Normal rate and regular rhythm. Heart sounds: Normal heart sounds. No murmur heard. Pulmonary: Effort: Pulmonary effort is normal. No respiratory distress. Breath sounds: Normal breath sounds. No wheezing or rales. Abdominal: General: Bowel sounds are normal. There is no distension. Palpations: Abdomen is soft. Tenderness: There is no abdominal tenderness. Neurological: Mental Status: He is alert and oriented to person, place, and time. Psychiatric: Behavior: Behavior normal. Thought Content: Thought content normal. Judgment: Judgment normal. Diagnostic Studies / Procedures ELECTROCARDIOGRAMS: Results for orders placed or performed during the hospital encounter of 05/28/24 ECG [address] [place] [address] Test Date: 2024-05-28 Pat Name: VINAY WILBURN Department: 3 Room: EXAM 606 Gender: Male Making Machine Catcher: EDSFL : 1970 Requested By: BISHOP ABDI Order Number: [id number] Reading MD: Measurements Intervals [place] Rate: 75 P: 54 MS: 188 QRS: -22 QRSD: 113 T: 53 QT: 434 QTc: 487 Interpretive Statements SINUS RHYTHM POSSIBLE LEFT ATRIAL ENLARGEMENT BORDERLINE LEFT AXIS DEVIATION MODERATE INTRAVENTRICULAR CONDUCTION DELAY PROLONGED QT INTERVAL LABORATORY STUDIES: Results for orders placed or performed during the hospital encounter of 05/28/24 CBC W/DIFF AUTOMATED Result Value Ref Range WBC 5.64 4.00 - 10.80 x10'3/uL RBC 3.05 (L) 4.50 - 6.10 x10'6/uL HGB 10.1 (L) 13.0 - 18.0 G/DL HCT 31.4 (L) 37.0 - 52.0 % MCV 103.0 (H) 78.0 - 100.0 FL MCH 33.1 (H) 27.0 - 31.0 PG MCHC 32.2 (L) 33.0 - 36.0 G/DL RDW 13.7 11.5 - 14.5 % PLT 166 150 - 350 x10'3/uL MPV 9.3 7.4 - 10.4 FL CBC COMMENT NORMAL REFERENCE RANGE NOT ESTABLISHED FOR THE PROPORTIONAL LEUKOCYTE DIFFERENTIAL. NEUTROPHILS % 57.9 % LYMPHOCYTES % 30.1 % MONOCYTES % 7.8 % EOSINOPHILS % 3.0 % BASOPHILS % 0.7 % IMMATURE GRANS % 0.5 % NRBC % 0.0 % ABS. NEUTROPHILS 3.26 1.60 - 8.30 x10'3/uL ABS. LYMPHOCYTES 1.70 0.80 - 4.70 x10'3/uL ABS. MONOCYTES 0.44 0.00 - 1.50 x10'3/uL ABS. EOSINOPHILS 0.17 0.00 - 0.40 x10'3/uL ABS. BASOPHILS 0.04 0.00 - 0.20 x10'3/uL ABS. IMMATURE GRANULOCYTES 0.03 0.00 - 0.03 x10'3/uL ABS. NUCLEATED RBC'S 0.00 0.00 - 0.01 x10'3/uL COMPREHENSIVE METABOLIC PANEL Result Value Ref Range SODIUM S/P/B 137 136 - 145 MMOL/L POTASSIUM S/P/B 3.6 3.5 - 5.1 MMOL/L CHLORIDE S/P/B 100 98 - 107 MMOL/L CO2 26.9 21.0 - 32.0 MMOL/L GLUCOSE 194 (H) 70 - 99 MG/DL BUN 41 (H) 6 - 24 MG/DL CREATININE S/P/B 4.38 (H) 0.70 - 1.30 MG/DL CALCIUM S/P/B 8.8 8.4 - 10.5 MG/DL BILIRUBIN TOTAL S/P/B 0.3 0.2 - 1.0 MG/DL ALKALINE PHOSPHATASE S/P/B 64 45 - 115 U/L AST 10 (L) 15 - 37 U/L ALT 12 (L) 16 - 63 U/L TOTAL PROTEIN S/P/B 7.0 6.4 - 8.2 G/DL ALBUMIN S/P/B 3.1 (L) 3.4 - 5.0 G/DL ANION GAP 10.1 5.0 - 15.0 MMOL/L OSMOLALITY (CALC) 299 MOSM/KG GFR ESTIMATE 15 (L) >89 ML/MIN/1.73 M2 GFR NOTES GFR REFERENCES: TROPONIN, QUANT Result Value Ref Range TROPONIN I HIGH SENSITIVITY 24 0 - 76 ng/L IMAGING STUDIES XR CHEST PORTABLE Final Result by User, [id number] (05/28 127) [address] [place] [address] INDICATION: dyspnea COMPARISON: Chest CTA and radiograph, 28 Mar 2024 TECHNIQUE: Single AP radiographic image of the chest FINDINGS: No pneumothorax or pleural effusion. No focal airspace consolidation. Mild pulmonary vascular congestion. Cardiomediastinal silhouette within normal limits. No acute osseous abnormality. IMPRESSION: Mild pulmonary vascular congestion. Referred By: Interpreted By: Larry Arevalo MD, 05/28/2024 1:23 AM ED Course / Medical Decision Making Medical Decision Making Patient presents complaining of elevated blood pressure despite taking 25 mg of carvedilol at home.Blood pressure remains elevated in the emergency department without any signs or symptoms of endorgan damage other than his established ESRD. Patient given additional 12.5 mg of carvedilol prior to discharge as blood pressure remained at 170/94 with a pulse of 75. Patient will follow-up with primary care for continued blood pressure management. Amount and/or Complexity of Data Reviewed Labs: ordered. Decision-making details documented in ED Course. Radiology: ordered. Decision-making details documented in ED Course. ECG/medicine tests: ordered and independent interpretation performed. Decision- making details documented in ED Course. Details: Sinus, regular, rate = 75 Risk Prescription drug management. ED Course as of 05/28/24241 Sat May 28, 2024210 HGB(!): 10.1 [JW] 211 CREATININE S/P/B(!): 4.38 [JW] ED Course User Index [JW] Bishop Abdi DO Clinical Impression Primary hypertension (Primary) ESRD (end stage renal disease) ([facility]) Disposition: Discharge I, Sami ChavezO., dictated portions of this note using [employer] speech recognition software. Occasional wrong word or sound-alike substitutions may have occurred due to the inherent limitationsof voice recognition software. Please read the chart carefully and recognize, using context, where s ubstitutions may have occurred. Bishop Abdi DO 05/28/24241 CIATE PROFESSOR OF ART * Mikayla Appiah RN - 05/28/2024 12:32 AM CST Pt presents to ED via [facility] with c/o high blood pressure. Pt states prior to arrival he had a slight headache so he took his blood pressure and found it to be elevated. Pt also c/o lightheadedness and feels slightly SOB. CIATE PROFESSOR OF ART documented in this encounter Plan of Treatment Upcoming Encounters Date Type Department Care Team (Late st Contact Info) Description 07/20/2024 10:30 AM ASSOCIATE PROFESSOR OF ART Office Visit [facility] [address] [place] [address] Martha Ramirez, [facility] [address] [place] [address] documented as of this encounter Goals Goal Patient Goal Type Associated Problems Recent Progress Patient-Stated? 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 RN documented as of this encounter Procedures Procedure Name Priority Date/Time Associated Diagnosis Comments TROPONIN, QUANT STAT 05/28/2024 2:30 AM ASSOCIATE PROFESSOR OF ART XR CHEST PORTABLE STAT 05/28/2024 1:0 8 AM ASSOCIATE PROFESSOR OF ART ECG 12-LEAD Routine 05/28/2024 12:53 AM ASSOCIATE PROFESSOR OF ART COMPREHENSIVE METABOLIC PANEL STAT 05/28/2024 12:50 AM ASSOCIATE PROFESSOR OF ART CBC W/DIFF AUTOMATED STAT 05/28/2024 12:50 AM ASSOCIATE PROFESSOR OF ART TROPONIN, QUANT STAT 05/28/2024 12:50 AM ASSOCIATE PROFESSOR OF ART documented in this encounter Results * TROPONIN, QUANT (05/28/2024 2:30 AM ASSOCIATE PROFESSOR OF ART) TROPONIN I HIGH SENSITIVITY 24 0 - 76 ng/L 05/28/2024 3:01 AM ASSOCIATE PROFESSOR OF ART [facility] 05/28/2024 2:30 AM ASSOCIATE PROFESSOR OF ART Bishop Abdi DO LABORATORY Final Result [facility] [address] [place] [address], * XR CHEST PORTABLE (05/28/2024 1:08 AM ASSOCIATE PROFESSOR OF ART) Anatomical Region Laterality Modality Chest Radiographic Susannah ging 05/28/2024 1:23 AM ASSOCIATE PROFESSOR OF ART Impressions 05/28/2024 1:26 AM ASSOCIATE PROFESSOR OF ART IMPRESSION: Mild pulmonary vascular congestion. Referred By: ?? Interpreted By: Larry Arevalo MD, 05/28/2024 1:23 AM Narrative 05/28/2024 1:26 AM ASSOCIATE PROFESSOR OF ART [facility] [address] [place] [address] INDICATION: dyspnea COMPARISON: Chest CTA and radiograph, 28 Mar 2024 TECHNIQUE: Single AP radiographic image of the chest FINDINGS: No pneumothorax or pleural effusion. No focal airspace consolidation. Mild pulmonary vascular congestion. Cardiomediastinal silhouette within normal limits. No acute osseous abnormality. Procedure Note Larry Arevalo MD - 05/28/[address] [facility] [address] [place] [address] INDICATION: dyspnea COMPARISON: Chest CTA and radiograph, 28 Mar 2024 TECHNIQUE: Single AP radiographic image of the chest FINDINGS: No pneumothorax or pleural effusion. No focal airspace consolidation. Mildpulmonary vascular congestion. Cardiomediastinal silhouette within normallimits. No acute osseous abnormality. IMPRESSION: Mild pulmonary vascular congestion. Referred By: Interpreted By: Larry Arevalo MD, 05/28/2024 1:23 AM Bishop Abdi DO GENERAL IMAGING Final Result * ECG 12 lead (05/28/2024 12:53 AM ASSOCIATE PROFESSOR OF ART) 05/28/2024 12:5 3 AM ASSOCIATE PROFESSOR OF ART Narrative [facility] - 05/28/2024 6:32 AM ASSOCIATE PROFESSOR OF ART ? [facility] ?[address] [place] ??[address] ? Test Date: ?2024-05-28 Pat Name: ? VINAY WILBURN ?Department: ?? 3 ? Room: ? EXAM 606 Gender: ? Male ? Making Machine Catcher: ?? EDSFL : ?1970 ? Requested By: BISHOP WAGNON Order Number: [id number] ? Reading MD: ?? Effie Loja ? Measurements Intervals ?[place] ? Rate: ? 75 ? P: ?54 MS: ? 188 ?QRS: ?-22 QRSD: ? 113 ?T: ?53 QT: ? 434 ? QTc: ?487 ? Interpretive Statements SINUS RHYTHM POSSIBLE LEFT ATRIAL ENLARGEMENT BORDERLINE LEFT AXIS DEVIATION MODERATE INTRAVENTRICULAR CONDUCTION DELAY PROLONGED QT INTERVAL CIATE PROFESSOR OF ART Procedure Note Effie Loja MD - 05/28/2024 [address] [place] [address] Test Date: 2024-05-28 Pat Name: VINAY WILBURN Department: 3 Room: EXAM 606 Gender: Male Making Machine Catcher: EDSFL : 1970 Requested By: BISHOP ABDI Order Number: [id number] Reading MD: Effie Loja Measurements Intervals [place] Rate: 75 P: 54 MS: 188 QRS: -22 QRSD: 113 T: 53 QT: 434 QTc: 487 Interpretive Statements SINUS RHYTHM POSSIBLE LEFT ATRIAL ENLARGEMENT BORDERLINE LEFT AXIS DEVIATION MODERATE INTRAVENTRICULAR CONDUCTION DELAY PROLONGED QT INTERVAL CIATE PROFESSOR OF ART us Bishop Abdi DO ECG ORDERABLES Final Result Performing Organization Address City/[facility]/ZIP Co de Phone Number [facility] * TROPONIN, QUANT (05/28/2024 12:50 AM ASSOCIATE PROFESSOR OF ART) Pathologist [facility] TROPONIN I HIGH SENSITIVITY 24 0 - 76 ng/L 05/28/2024 1:13 AM ASSOCIATE PROFESSOR OF ART [facility] 05/28/2024 12:5 0 AM ASSOCIATE PROFESSOR OF ART us Bishop Abdi DO LABORATORY Final Result Performing Organization Address [facility]/ZIP Co de Phone Number [facility] [place] [address], * (ABNORMAL) COMPREHENSIVE METABOLIC PANEL (05/28/2024 12:50 AM ASSOCIATE PROFESSOR OF ART) Pathologist [facility] SODIUM S/P/B 137 136 - 145 MMOL/L 05/28/2024 1:13 AM ASSOCIATE PROFESSOR OF ART [facility] POTASSIUM S/P/B 3.6 3.5 - 5.1 MMOL/L 05/28/2024 1:13 AM [facility] CHLORIDE S/P/B 100 98 - 107 MMOL/L 05/28/2024 1:13 AM [facility] CO2 26.9 21.0 - 32.0 MMOL/L 05/28/2024 1:13 AM [facility] GLUCOSE 194(H) 70 - 99 MG/DL 05/28/2024 1:13 AM [facility] Comment: FASTING GLUCOSE 100 TO 125 MG/DL IS CONSISTENT WITH IMPAIRED FASTING GLUCOSE. FASTING GLUCOSE >125 MG/DL IS CONSISTENT WITH DIABETES. RANDOM GLUCOSE >200 MG/DL WITH HYPERGLYCEMIC SYMPTOMS IS CONSISTENT WITH DIABETES. PER ADA GUIDELINES BUN 41(H) 6 - 24 MG/DL 05/28/2024 1:13 AM [facility] CREATININE S/P/B 4.38(H) 0.70 - 1.30 MG/DL 05/28/2024 1:13 AM [facility] CALCIUM S/P/B 8.8 8.4 - 10.5 MG/DL 05/28/2024 1:13 AM [facility] BILIRUBIN TOTAL S/P/B 0.3 0.2 - 1.0 MG/DL 05/28/2024 1:13 AM [facility] Comment: THIS ASSAY IS NOT RECOMMENDED FOR PATIENTS UNDERGOING TREATMENT WITH ELTROMBOPAG DUE TO THE POTENTIAL FOR FALSELY ELEVATED RESULTS. ALKALINE PHOSPHATASE S/P/B 64 45 - 115 U/L 05/28/2024 1:13 AM [facility] AST 10(L) 15 - 37 U/L 05/28/2024 1:13 AM [facility] ALT 12(L) 16 - 63 U/L 05/28/2024 1:13 AM [facility] TOTAL PROTEIN S/P/B 7.0 6.4 - 8.2 G/DL 05/28/2024 1:13 AM [facility] ALBUMIN S/P/B 3.1(L) 3.4 - 5.0 G/DL 05/28/2024 1:13 AM [facility] ANION GAP 10.1 5.0 - 15.0 MMOL/L 05/28/2024 1:13 AM ASSOCIATE PROFESSOR OF ART [facility] OSMOLALITY (CALC) 299 MOSM/KG 024 1:13 AM ASSOCIATE PROFESSOR OF ART [facility] Comment:REFERENCE RANGE NOT ESTABLISHED GFR ESTIMATE 15(L) >89 ML/MIN/1. 73 M2 05/28/2024 1:13 AM ASSOCIATE PROFESSOR OF ART [facility] GFR NOTES GFR REFERENCE S: 05/28/2024 1:13 AM ASSOCIATE PROFESSOR OF ART [facility] Comment: THE ESTIMATED GFR IS [...] ml/min/1.73 m2 G5,KIDNEY FAILURE: <15 ml/min/1.73 m2 05/28/2024 12:5 0 AM ASSOCIATE PROFESSOR OF ART us Bishop Abid DO LABORATORY Final Result [facility] [address] [place] [address], * (ABNORMAL) CBC W/DIFF AUTOMATED (05/28/2024 12:50 AM ASSOCIATE PROFESSOR OF ART) WBC 5.64 4.00 - 10.80 x10'3/uL 05/28/2024 12:56 AM ASSOCIATE PROFESSOR OF ART [facility] RBC 3.05(L) 4.50 - 6.10 x10'6/uL 05/28/2024 12:56 AM ASSOCIATE PROFESSOR OF ART [facility] HGB 10.1(L) 13.0 - 18.0 G/DL 05/28/2024 12:56 AM ASSOCIATE PROFESSOR OF ART [facility] HCT 31.4(L) 37.0 - 52.0 % 05/28/2024 12:56 AM ASSOCIATE PROFESSOR OF ART [facility] MCV 103.0(H) 78.0 - 100.0 FL 05/28/2024 12:56 AM [facility] MCH 33.1(H) 27.0 - 31.0 PG 05/28/2024 12:56 AM [facility] MCHC 32.2(L) 33.0 - 36.0 G/DL 05/28/2024 12:56 AM [facility] RDW 13.7 11.5 - 14.5 % 05/28/2024 12:56 AM [facility] PLT 166 150 - 350 x10'3/uL 05/28/2024 12:56 AM [facility] MPV 9.3 7.4 - 10.4 FL 05/28/2024 12:56 AM [facility] CBC COMMENT NORMAL REFERENCE RANGE NOT ESTABLISHED FOR THE PROPORTIONAL LEUKOCYTE DIFFERENTIAL. 05/28/2024 12:56 AM [facility] NEUTROPHILS % 57.9 % 05/28/2024 12:56 AM [facility] LYMPHOCYTES % 30.1 % 05/28/2024 12:56 AM [facility] MONOCYTES % 7.8 % 05/28/2024 12:56 AM [facility] EOSINOPHILS % 3.0 % 05/28/2024 12:56 AM [facility] BASOPHILS % 0.7 % 05/28/2024 12:56 AM [facility] IMMATURE GRANS % 0.5 % 05/28/20 12:56 AM [facility] NRBC % 0.0 % 05/28/2024 12:56 AM [facility] ABS. NEUTROPHILS 3.26 1.60 - 8.30 x10'3/uL 05/28/2024 12:56 AM [facility] ABS. LYMPHOCYTES 1.70 0.80 - 4.70 x10'3/uL 05/28/2024 12:56 AM [facility] ABS. MONOCYTES 0.44 0.00 - 1.50 x10'3/uL 05/28/2024 12:56 AM [facility] [employer] [facility] ABS. EOSINOPHILS 0.17 0.00 - 0.40 x10'3/uL 05/28/2024 12:56 AM [employer] [facility] ABS. BASOPHILS 0.04 0.00 - 0.20 x10'3/uL 05/28/2024 12:56 AM [employer] [facility] ABS. IMMATURE GRANULOCYTES 0.03 0.00 - 0.03 x10'3/uL 05/28/2024 12:56 AM [employer] [facility] ABS. NUCLEATED RBC'S 0.00 0.00 - 0.01 x10'3/uL 05/28/2024 12:56 AM [employer] [facility] 05/28/2024 12:5 0 AM [employer] Bishop Abdi DO LABORATORY Final Result [facility] [address] [place] [address], documented in this encounter Visit Diagnoses Diagnosis Primary hypertension- Primary Unspecified essential hypertension ESRD (end stage renal disease) ([facility]) End stage renal disease documented in this encounter Administered Medications Inactive Administered Medications - up to 3 most recent administrations Medication Order MAR Action Action Date Dose Rate Site carvedilol (COREG) tablet 12.5 mg 12.5 mg, Oral, Once, 1 dose, On 05/28/24 at 0245, Take with meal or snack Given 05/28/2024 3:22 AM [employer] 12.5 mg documented in this encounter Active and Recently Administered Medications Times are shown in [employer]. Scheduled Medication Order 05/26/2024 05/27/2024 05/28/2024 carvedilol (COREG) tablet 12.5 mg (COMPLETED) 12.5 mg, Oral, Once, 1 dose, On 05/28/24 at 0245, Take with meal or snack 0322 (Given - Provid er: Christine Peter RN) documented in this encounter Care Teams Dot Etcher Relationship Specialty Start Date End Date Mery Maxwell MD [address] [place] [id number] PCP - General FAMILY PRACTICE 08/19/23 documented as of this encounter
--- OUTSIDE RECORDS SUMMARY | 2024-06-22 17:59 | XMS_ITS | Clinical Summary ---
Author Organization [facility] Address [address] [place] [address]. [place] [address] [place] [address] Care Team Providers Care Embroidery Supervisor Name Role Phone Mery Maxwell MD Primary Care Provider [phone] Allergies Active Allergy Reactions Criticality Noted Date Comments Amoxicillin Hives 08/19/2023 Medications allopurinol (ZYLOPRIM) 100 MG tablet Take 1 tablet (100 mg total) by mouth 2 (two) times daily. 08/03/2023 Active ELIQUIS 5 MG tablet Take 1 tablet (5 mg total) by mouth 2 (two) times daily. 08/03/2023 Active atorvastatin (LIPITOR) 20 MG tablet Take 1 tablet (20 mg total) by mouth daily. 08/03/2023 Active gabapentin (NEURONTIN) 100 MG capsule Take 1 capsule (100 mg total) by mouth 2 (two) times a day. 08/03/2023 Active LANTUS SOLOSTAR 100 UNIT/ML injection (PEN) Inject 17 Units into the skin nightly at bedtime. 08/03/2023 Active insulin lispro, 1 Unit Dial, (HUMALOG) 100 UNIT/ML injection (PEN) Inject 10 Units into the skin 3 (three) times daily before meals. 12/17/2022 Active traMADol (ULTRAM) 50 MG tabletIndication s:Acute Pain < 7 Day Supply Indications: Acute Pain < 7 Day Supply 1-2 every 6 hours as needed for pain 20 tablet 08/19/2023 Active amiodarone (PACERONE) 200 MG tablet Take 0.5 tablets (100 mg total) by mouth daily. 30 tablet 11 02/03/2024 Active B-D UF III MINI PEN NEEDLES 31G X 5 MM [facility] 03/02/2024 Active BD VEO INSULIN SYRINGE U/F 31G X 15/64 0.5 ML [facility] 11/17/2023 Active TRUE METRIX BLOOD GLUCOSE TEST test strip use 1 strip to check glucose three times daily 02/01/2024 Active pantoprazole EC (PROTONIX) 40 MG tablet Take 1 tablet (40 mg total) by mouth 2 (two) times a day. 03/16/2024 Active sevelamer carbonate (RENVELA) 800 MG tablet Take 1 tablet (800 mg total) by mouth 3 (three) times daily with meals. 03/16/2024 Active Continuous Glucose Transmitter (DEXCOM G6 TRANSMITTER) [facility] 03/08/2024 Active Active Problems Problem Noted Date Diagnosed Date Hemoptysis 03/28/2024 Hypotension 12/31/2023 Postural dizziness with presyncope 12/31/2023 Hypokalemia 09/01/2023 EKG, abnormal 09/01/2023 Encounters Date Type Department Care Team Description 06/22/2024 [facility]phone [facility] [address] [place] [address] Martha Ramirez ANP- Reschedule 05/28/2024 12:25 AM FACULTY INSTRUCTOR - 05/28/2024 3:32 AM [facility] Emergency [facility] [address] [place] [address] Bishop Abdi DO Hypertension Discharge Disposition: Home or Self Care (Routine Discharge) 05/28/2024 Travel 05/10/2024 Telephone [facility] [address] [place] [address] Martha Ramirez ANP-BC Surgical Clearance 04/04/2024 12:14 PM CDT - 04/04/2024 11:59 PM CDT Hospital Encounter [facility] [place] [address] Mery Maxwell MD Discharge Disposition: Home or Self Care (Routine Discharge) 04/04/[address] [facility] [place] [address] Mery Maxwell MD 03/28/2024 5:24 PM CDT - 03/31/2024 3:12 PM CDT Hospital Encounter [facility] [address] [place] [address] Raymond Mccain MD Jabeen, Sayeeda A, MD Discharge Disposition: Home or Self Care (Routine Discharge) 03/28/2024 10:29 AM CDT - 03/28/2024 4:[address] [facility] [address] [place] [address] Hemoptysis Discharge Disposition: Transfer to Acute [facility] 03/28/2024 Travel from Last 3 Months Family History Medical History Relation Comments Alzheimer's disease Father Diabetes Father Hypertension Father Diabetes Mother Hypertension Mother Diabetes Sister Relation Status Comments Father (Age 91) Mother (Age 78) Sister Social History Tobacco Use Types Packs/Day Years Used Date Smoking Tobacco: Former Cigarettes 1 15 Smokeless Tobacco: Never Tobacco Cessation:Counseling Given: Not Answered Alcohol Use Standard Drinks/Week Comments Not Currently 0 (1 standard drink = 0.6 oz pur e alcohol) [facility] Utilities Answer Date Recorded In the past 12 months has e [employer], gas, oil, or water [employer] threatened to shut off services in your [...] place to sleep or slept in a group home (including now)? Patient declined 09/01/2023 Housing Stability [...] any time in the past 12 m [facility], were you homeless or living in a group home (including now)? No 03/28/2024 Sex and Gender Information Value Date Recorded Sex Assigned at Not on file Legal Sex Male 6:24 PM CDT Gender Identity Not on file Sexual Orientation Not on file Last Filed Vital Signs Vital Sign Reading Time Taken Comments Blood Pressure 195/92 05/28/2024 3:00 AM FACULTY INSTRUCTOR Pulse 82 05/28/2024 3:00 AM FACULTY INSTRUCTOR Temperature 37.1 ??C (98.7 ??F) 05/28/2024 12:[address] Respiratory Rate 27 05/28/2024 3:00 AM FACULTY INSTRUCTOR Oxygen Saturation 95% 05/28/2024 3:00 AM FACULTY INSTRUCTOR Inhaled Oxygen Concentration - - Weight 122.5 kg (270 lb) 05/28/2024 12:32 AM FACULTY INSTRUCTOR Height 188 cm (6' 2 ) 05/28/2024 12:32 AM FACULTY INSTRUCTOR Body Mass Index 34.67 05/28/2024 12:32 AM FACULTY INSTRUCTOR Plan of Treatment Upcoming Encounters Date Type Department Care Team (Late st Contact Info) Description 07/20/2024 10:30 AM FACULTY INSTRUCTOR Office Visit [facility] [place] [id number] Martha Ramirez, [facility] [address] [place] [address] Health Maintenance Due Date Last Done Comments Annual Physical 12/13/1975 Diabetes: Retinopathy Eye Exam 1990 Hepatitis B Vaccines (2 of 3 - 19+ 3-dose series) 12/01/2019 11/03/2019 Zoster Vaccines (1 of 2) 2022 COVID-19 Vaccine ( season) 2024 Hemoglobin A1C 03/04/2024 09/02/2023, 06/16, 07/02/2023, Additional history exists Influenza Adult (#1) 2024 02/21/2020, 04/15/2019, 03/24/2019, Additional history exists Lipid Panel 07/10/2024 07/10/2023 Colorectal Cancer Screening FIT/FOBT (1 Year) 03/28/2025 03/28/2024 DTaP, Tdap and Td Vaccines (4 - Td or Tdap) 10/20/2031 10/19/2021, 05/04/2018, 06/15/2017, Additional history exists Pneumococcal Vaccine: Pediatrics (0 to 5 Years) and At-Risk Patients (6 to 64 Years) (3 of 3 - PPSV23 or PCV20) 2037 03/24/2019, 05/04/2018 Hepatitis C Completed 07/13/2023, 06/16, 07/07/2023, Additional history exists Meningococcal Vaccine Aged Out No robert jluis eligible based on patient's age to complete this topic RSV Immunizations Under 20 Months Aged Out No longer eligible based on patient's age to complete this topic Goals Goal Patient Goal Type Associated Problems Recent Progress Patient-Stated? 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 Procedure Name Priority Date/Time Associated Diagnosis Comments TROPONIN, QUANT STAT 05/28/2024 2:30 AM FACULTY INSTRUCTOR XR CHEST PORTABLE STAT 05/28/2024 1:0 8 AM FACULTY INSTRUCTOR ECG 12-LEAD Routine 05/28/2024 12:53 AM FACULTY INSTRUCTOR TROPONIN, QUANT STAT 05/28/2024 12:50 AM FACULTY INSTRUCTOR COMPREHENSIVE METABOLIC PANEL STAT 05/28/2024 12:50 AM FACULTY INSTRUCTOR CBC W/DIFF AUTOMATED STAT 05/28/2024 12:50 AM FACULTY INSTRUCTOR CBC W/DIFF AUTOMATED Routine 04/04/2024 11:30 AM CDT CKD (chronic kidney disease) DM (diabetes mellitus) (CMS/HCC HHS/HCC) CHF (congestive heart failure) (CMS/HCC HHS/HCC) COMPREHENSIVE METABOLIC PANEL Routine 04/04/2024 11:30 AM CDT CKD (chronic kidney disease) DM (diabetes mellitus) (CMS/HCC HHS/HCC) CHF (congestive heart failure) (CMS/HCC HHS/HCC) VITAMIN D, 25 OH Routine 04/04/2024 11:3 0 AM CDT CKD (chronic kidney disease) DM (diabetes mellitus) (CMS/HCC HHS/HCC) CHF (congestive heart failure) (CMS/HCC HHS/HCC) IRON SAT PANEL (IRON,IBC,%SAT) Routine 04/04/2024 11:30 AM CDT CKD (chronic kidney disease) DM (diabetes mellitus) (CMS/HCC HHS/HCC) CHF (congestive heart failure) (CMS/HCC HHS/HCC) POCT GLUCOSE - PERES DOCKED DEVICE Routine 03/31/2024 1:11 PM CDT POCT GLUCOSE - PERES DOCKED DEVICE Routine 03/31/2024 6:14 AM CDT POCT GLUCOSE - PERES DOCKED DEVICE Routine 03/30/2024 8:47 PM CDT POCT GLUCOSE - PERES DOCKED DEVICE Routine 03/30/2024 4:34 PM CDT POCT GLUCOSE - PERES DOCKED DEVICE Routine 03/30/2024 11:16 AM CDT POCT GLUCOSE - PERES DOCKED DEVICE Routine 03/30/2024 5:58 AM CDT CBC W/DIFF AUTOMATED Routine 03/30/2024 4:30 AM CDT POCT GLUCOSE - PERES DOCKED DEVICE Routine 03/29/2024 8:44 PM CDT POCT GLUCOSE - PERES DOCKED DEVICE Routine 03/29/2024 4:22 PM CDT POCT GLUCOSE - PERES DOCKED DEVICE Routine 03/29/2024 1:50 PM CDT HEPATITIS B CORE ANTIBODY Routine 03/29/2024 7:49 AM CDT HEPATITIS B SURFACE ANTIBODY Routine 03/29/2024 7:49 AM CDT HEPATITIS B SURFACE AG, EIA Routine 03/29/2024 7:49 AM CDT POCT GLUCOSE - PERES DOCKED DEVICE Routine 03/29/2024 6:34 AM CDT BASIC METABOLIC PANEL Routine 03/29/2024 4:06 AM CDT CBC W/DIFF AUTOMATED Routine 03/29/2024 4:06 AM CDT POCT GLUCOSE - PERES DOCKED DEVICE Routine 03/28/2024 8:54 PM CDT CTA CHEST PE PROTOCOL STAT 03/28/2024 12:30 PM CDT OCCULT BLOOD, FECES STAT 03/28/2024 1 2:10 PM CDT COMPREHENSIVE METABOLIC PANEL STAT 03/28/2024 11:18 AM CDT PARTIAL THROMBOPLASTIN TIME,PTT STAT 03/28/2024 11:18 AM CDT PROTHROMBIN TIME, VENOUS STAT 03/28/2024 11:18 AM CDT CBC W/DIFF AUTOMATED STAT 03/28/2024 11:18 AM CDT XR CHEST PORTABLE STAT 03/28/2024 11: 07 AM CDT HEMOGLOBIN, GLYCOSYLATED Routine 09/02/2023 2:49 AM CDT from Last 3 Months or Most Recently Relevant to Health Maintenance Results * TROPONIN, QUANT (05/28/2024 2:30 AM FACULTY INSTRUCTOR) Only the most recent of2 resultswithin the time period is included. TROPONIN I HIGH SENSITIVITY 24 0 - 76 ng/L 05/28/2024 3:01 AM FACULTY INSTRUCTOR [facility] 05/28/2024 2:30 AM FACULTY INSTRUCTOR Bishop Abdi DO LABORATORY Final Result [facility] [place] [address], * XR CHEST PORTABLE (05/28/2024 1:08 AM FACULTY INSTRUCTOR) Only the most recent of2 resultswithin the time period is included. Anatomical Region Laterality Modality Chest Radiographic Susannah ging 05/28/2024 1:23 AM FACULTY INSTRUCTOR Impressions 05/28/2024 1:26 AM FACULTY INSTRUCTOR IMPRESSION: Mild pulmonary vascular congestion. Referred By: ?? Interpreted By: Larry Arevalo MD, 05/28/2024 1:23 AM Narrative 05/28/2024 1:26 AM FACULTY INSTRUCTOR [facility] [address] [place] [address] INDICATION: dyspnea COMPARISON: Chest CTA and radiograph, 28 Mar 2024 TECHNIQUE: Single AP radiographic image of the chest FINDINGS: No pneumothorax or pleural effusion. No focal airspace consolidation. Mild pulmonary vascular congestion. Cardiomediastinal silhouette within normal limits. No acute osseous abnormality. Procedure Note Larry Arevalo MD - 05/28/2024 [facility] [address] [place] [address] INDICATION: dyspnea COMPARISON: Chest CTA and radiograph, [...] * ECG 12 lead (05/28/2024 12:53 AM FACULTY INSTRUCTOR) 05/28/2024 12:5 3 AM FACULTY INSTRUCTOR Narrative [facility] - 05/28/2024 6:32 AM FACULTY INSTRUCTOR ? [facility] ?[address] [place] ??[address] ? Test Date: ?2024-05-28 Pat Name: ? VINAY WILBURN ?Department: ?? 3 ? Room: ? EXAM 606 Gender: ? Male ? Ag Equipment Field Service Technician: ?? EDSFL : ?1970 ? Requested By: BISHOP WAGNON Order Number: [id number] ? Reading MD: ?? Effie Loja ? Measurements Intervals ?[place] ? Rate: ? 75 ? P: ?54 NC: ? 188 ?QRS: ?-22 QRSD: ? 113 ?T: ?53 QT: ? 434 ? QTc: ?487 ? Interpretive Statements SINUS RHYTHM POSSIBLE LEFT ATRIAL ENLARGEMENT BORDERLINE LEFT AXIS DEVIATION MODERATE INTRAVENTRICULAR CONDUCTION DELAY PROLONGED QT INTERVAL LTY INSTRUCTOR Procedure Note Effie Loja MD - 05/28/[address] [place] [address] Test Date: 2024-05-28 Pat Name: VINAY WILBURN Department: 3 Room: EXAM 606 Gender: Male Ag Equipment Field Service Technician: EDSFL : 1970 Requested By: BISHOP ABDI Order Number: [id number] Reading MD: Effie Loja Measurements Intervals [place] Rate: 75 P: 54 NC: 188 QRS: -22 QRSD: 113 T: 53 QT: 434 QTc: 487 Interpretive Statements SINUS RHYTHM POSSIBLE LEFT ATRIAL ENLARGEMENT BORDERLINE LEFT AXIS DEVIATION MODERATE INTRAVENTRICULAR CONDUCTION DELAY PROLONGED QT INTERVAL LTY INSTRUCTOR us Bishop Abdi DO ECG ORDERABLES Final Result [facility] * (ABNORMAL) COMPREHENSIVE METABOLIC PANEL (05/28/2024 12:50 AM FACULTY INSTRUCTOR) Only the most recent of3 resultswithin the time period is included. SODIUM S/P/B 137 136 - 145 MMOL/L 05/28/2024 1:13 AM [facility] POTASSIUM S/P/B 3.6 3.5 - 5.1 MMOL/L 05/28/2024 1:13 AM [facility] CHLORIDE S/P/B 100 98 - 107 MMOL/L 05/28/2024 1:13 AM [facility] CO2 26.9 21.0 - 32.0 MMOL/L 05/28/2024 1:13 AM [facility] GLUCOSE 194(H) 70 - 99 MG/DL 05/28/2024 1:13 AM [facility] Comment: FASTING GLUCOSE 100 TO 125 MG/DL IS CONSISTENT WITH IMPAIRED FASTING GLUCOSE. FASTING GLUCOSE >125 MG/DL IS CONSISTENT WITH DIABETES. RANDOM GLUCOSE >200 MG/DL WITH HYPERGLYCEMIC SYMPTOMS IS CONSISTENT WITH DIABETES. PER ADA GUIDELINES BUN 41(H) 6 - 24 MG/DL 05/28/2024 1:13 AM [facility] CREATININE S/P/B 4.38(H) 0.70 - 1.30 MG/DL 05/28/2024 1:13 AM [facility] CALCIUM S/P/B 8.8 8.4 - 10.5 MG/DL 05/28/2024 1:13 AM [facility] BILIRUBIN TOTAL S/P/B 0.3 0.2 - 1.0 MG/DL 05/28/2024 1:13 AM [facility] Comment: THIS ASSAY IS NOT RECOMMENDED FOR PATIENTS UNDERGOING TREATMENT WITH ELTROMBOPAG DUE TO THE POTENTIAL FOR FALSELY ELEVATED RESULTS. ALKALINE PHOSPHATASE S/P/B 64 45 - 115 U/L 05/28/2024 1:13 AM [facility] AST 10(L) 15 - 37 U/L 05/28/2024 1:13 AM [facility] ALT 12(L) 16 - 63 U/L 05/28/2024 1:13 AM [facility] TOTAL PROTEIN S/P/B 7.0 6.4 - 8.2 G/DL 05/28/2024 1:13 AM [facility] ALBUMIN S/P/B 3.1(L) 3.4 - 5.0 G/DL 05/28/2024 1:13 AM [facility] ANION GAP 10.1 5.0 - 15.0 MMOL/L 05/28/2024 1:13 AM [facility] OSMOLALITY (CALC) 299 MOSM/KG 2 024 1:13 AM [facility] Comment:REFERENCE RANGE NOT ESTABLISHED GFR ESTIMATE 15(L) >89 ML/MIN/1. 73 M2 05/28/2024 1:13 AM [facility] GFR NOTES GFR REFERENCE S: 05/28/2024 1:13 AM [facility] Comment: THE ESTIMATED GFR IS [...] <15 ml/min/1.73 m2 05/28/2024 12:5 0 AM FACULTY INSTRUCTOR us Bishop Abdi DO LABORATORY Final Result [facility] [address] [place] [address], * (ABNORMAL) CBC W/DIFF AUTOMATED (05/28/2024 12:50 AM FACULTY INSTRUCTOR) Only the most recent of5 resultswithin the time period is included. WBC 5.64 4.00 - 10.80 x10'3/uL 05/28/2024 12:56 AM FACULTY INSTRUCTOR [facility] RBC 3.05(L) 4.50 - 6.10 x10'6/uL 05/28/2024 12:56 AM FACULTY INSTRUCTOR [facility] HGB 10.1(L) 13.0 - 18.0 G/DL 05/28/2024 12:56 AM FACULTY INSTRUCTOR [facility] HCT 31.4(L) 37.0 - 52.0 % 05/28/2024 12:56 AM FACULTY INSTRUCTOR [facility] MCV 103.0(H) 78.0 - 100.0 FL 05/28/2024 12:56 AM FACULTY INSTRUCTOR [facility] MCH 33.1(H) 27.0 - 31.0 PG 05/28/2024 12:56 AM FACULTY INSTRUCTOR [facility] MCHC 32.2(L) 33.0 - 36.0 G/DL 05/28/2024 12:56 AM [facility] RDW 13.7 11.5 - 14.5 % 05/28/2024 12:56 AM [facility] PLT 166 150 - 350 x10'3/uL 05/28/2024 12:56 AM [facility] MPV 9.3 7.4 - 10.4 FL 05/28/2024 12:56 AM [facility] CBC COMMENT NORMAL REFERENCE RANGE NOT ESTABLISHED FOR THE PROPORTIONAL LEUKOCYTE DIFFERENTIAL. 05/28/2024 12:56 AM [facility] NEUTROPHILS % 57.9 % 05/28/2024 12:56 AM [facility] LYMPHOCYTES % 30.1 % 05/28/2024 12:56 AM [facility] MONOCYTES % 7.8 % 05/28/2024 12:56 AM [facility] EOSINOPHILS % 3.0 % 05/28/2024 12:56 AM [facility] BASOPHILS % 0.7 % 05/28/2024 12:56 AM [facility] IMMATURE GRANS % 0.5 % 05/28/20 12:56 AM [facility] NRBC % 0.0 % 05/28/2024 12:56 AM [facility] ABS. NEUTROPHILS 3.26 1.60 - 8.30 x10'3/uL 05/28/2024 12:56 AM [facility] ABS. LYMPHOCYTES 1.70 0.80 - 4.70 x10'3/uL 05/28/2024 12:56 AM [facility] ABS. MONOCYTES 0.44 0.00 - 1.50 x10'3/uL 05/28/2024 12:56 AM [facility] ABS. EOSINOPHILS 0.17 0.00 - 0.40 x10'3/uL 05/28/2024 12:56 AM [facility] ABS. BASOPHILS 0.04 0.00 - 0.20 x10'3/uL 05/28/2024 12:56 AM [facility] ABS. IMMATURE GRANULOCYTES 0.03 0.00 - 0.03 x10'3/uL 05/28/2024 12:56 AM FACULTY INSTRUCTOR [facility] ABS. NUCLEATED RBC'S 0.00 0.00 - 0.01 x10'3/uL 05/28/2024 12:56 AM FACULTY INSTRUCTOR [facility] 05/28/2024 12:5 0 AM FACULTY INSTRUCTOR Bishop Abdi DO LABORATORY Final Result Performing Organization Address [facility] Co de Phone Number [facility] [address] [place] [id number], * (ABNORMAL) IRON SATURATION PNL (FE/TIBC/SAT) (04/04/2024 11:30 AM CDT) IRON 85 65 - 175 MCG/DL 04/04/2024 12:50 PM CDT [facility] IRON BINDING CAPACITY 226(L) 250 - 450 MCG/DL 04/04/2024 12:50 PM CDT [facility] IRON SATURATION 38 % 12:50 PM CDT [facility] Comment:REFERENCE RANGE NOT ESTABLISHED 04/04/2024 11:3 0 AM CDT Mery Maxwell MD LABORATORY Final Resu lt Performing Organization Address [facility] Co de Phone Number [facility] [address] [place] [address], * VITAMIN D, 25 OH (04/04/2024 11:30 AM CDT) VITAMIN D 25 HYDROXY TOTAL S/P/B 27.0 20.0 - 50.0 NG/ML 04/05/2024 12:22 PM CDT [facility] Comment: <10 ng/mL (Severe deficiency) 10 TO 19 ng/mL (Mild to Moderate deficiency) 20 TO 50 ng/mL (Optimum levels) 51 TO 80 ng/mL (Increased risk of hypercalciuria) >80 ng/mL (Toxicity possible) 04/04/2024 11:3 0 AM CDT us Mery Maxwell MD LABORATORY Final Resu lt Performing Organization Address [facility] Co de Phone Number [facility] [address] [place] [address], [place] [phone] * (ABNORMAL) POCT glucose (03/31/2024 1:11 PM CDT) Only the most recent of11 resultswithin the time period is included. GLUCOSE POC 130(H) 70 - 109 03/31/2024 1:14 PM CDT [facility] 03/31/2024 1:11 PM CDT us Devyn Warner MD POCT ORDERABLES - DEVICE Fin al Result Performing Organization Address [facility] Co de Phone Number [facility] [address] [place] [address], [place] [phone] * HEPATITIS B SURFACE AG, EIA (03/29/2024 7:49 AM CDT) HEPATITIS B SURFACE AG NON-REACTI VE NON-REACTI VE 03/29/2024 9:04 AM CDT [facility] Comment:HBsAg NOT DETECTED. 03/29/2024 7:49 AM CDT us Rolan Simon MD LABORATORY Final Resu lt Performing Organization Address [facility] Co de Phone Number [facility] [address] [place] [address], [place] [phone] * (ABNORMAL) HEPATITIS B SURFACE ANTIBODY (03/29/2024 7:49 AM CDT) HEP B SURFACE AB <3.1(L) >9.9 MIU/ML 03/29/2024 9:04 AM CDT [facility] Comment:INDIVIDUAL IS CONSID ERED NOT IMMUNE TO HBV INFECTION. 03/29/2024 7:49 AM CDT us Rolan Simon MD LABORATORY Final Resu lt Performing Organization Address [facility] Co de Phone Number [facility] [address] [place] [address], [place] [phone] * HEPATITIS B CORE ANTIBODY (03/29/2024 7:49 AM CDT) HEP B CORE TOTAL AB NON-REACTI VE NON-REACTI VE 03/29/2024 9:29 AM CDT [facility] Comment:IgM and IgG anti HBc not detected. 03/29/2024 7:49 AM CDT Rolan Simon MD LABORATORY Final Resu lt Performing Organization Address [facility] de Phone Number [facility] [address] [place] [address], [place] [phone] * (ABNORMAL) BASIC METABOLIC PANEL (03/29/2024 4:06 AM CDT) SODIUM S/P/B 134(L) 136 - 145 MMOL/L 03/29/2024 5:22 AM CDT [facility] POTASSIUM S/P/B 4.2 3.5 - 5.1 MMOL/L 03/29/2024 5:22 AM CDT [facility] CHLORIDE S/P/B 101 97 - 115 MMOL/L 03/29/2024 5:22 AM CDT [facility] CO2 24.5 21.0 - 32.0 MMOL/L 03/29/2024 5:22 AM CDT [facility] GLUCOSE 204(H) 74 - 106 MG/DL 03/29/2024 5:22 AM CDT [facility] BUN 85(H) 7 - 18 MG/DL 03/29/2024 5:22 AM CDT [facility] CREATININE S/P/B 7.01(H) 0.70 - 1.30 MG/DL 03/29/2024 5:22 AM CDT [facility] CALCIUM S/P/B 9.7 8.5 - 10.1 MG/DL 03/29/2024 5:22 AM CDT [facility] ANION GAP 8.5 2.0 - 10.0 MMOL/L 03/29/2024 5:22 AM CDT [facility] OSMOLALITY (CALC) 310 MOSM/KG 024 5:22 AM T [facility] Comment:REFERENCE RANGE NOT ESTABLISHED GFR ESTIMATE 9(L) >90 ML/MIN/1. 73 M2 03/29/2024 5:22 AM CDT [facility] GFR NOTES GFR REFERENCE S: 03/29/2024 5:22 AM CDT [facility] Comment: THE ESTIMATED GFR IS CALCULATED [...] ml/min/1.73 m2 G5,KIDNEY FAILURE: <15 ml/min/1.73 m2 03/29/2024 4:06 AM CDT us Devyn Warner MD LABORATORY Final Result [facility] [address] [place], [place] [address] [phone] * CTA CHEST PE PROTOCOL (03/28/2024 12:30 PM CDT) Anatomical Region Laterality Modality Chest Computed Tomogra phy 03/28/2024 12:4 2 PM CDT Impressions 03/28/2024 12:48 PM CDT IMPRESSION: 1. Negative for pulmonary embolism as described. 2. Coronary artery disease. 3. Bilateral gynecomastia. Ordered By: KELLY LONDONO Interpreted By: Hans Gonsalves MD, 03/28/2024 12:42 PM Narrative 03/28/2024 12:48 PM [address]T [address] [place] [address] Examination: CTA chest. Exam time: 1229 hours. Clinical history: Hemoptysis. History of atrial fibrillation, on Eliquis. History of renal failure, on dialysis. Comparison: None. Technique: Thin section spiral axial scans were acquired through the chest during the administration of intravenous contrast for evaluation of the great vessels. Coronal, sagittal and 3-D MIP coronal reconstructions were performed from the data set. A dose lowering technique was used for this procedure, which may include, but is not limited to, dose reduction techniques, automated exposure control, the use of iterative reconstruction and ALARA/Image Gently techniques. Findings: Motion limits assessment of the pulmonary arteries beyond the segmental branches. Within this limitation, no pulmonary embolism is identified. Calcific coronary artery disease and minimal atherosclerotic calcification of the aorta and arch vessels noted. The heart and great vessels are otherwise unremarkable. No hilar or mediastinal adenopathy is identified. No endobronchial abnormality is identified. Sub-6 mm noncalcified nodule in the posteromedial and inferior left lower lobe is considered benign based on current Fleischner Society guidelines, presumably a granuloma. There is minor dependent subsegmental atelectasis. Allowing for the respiratory motion, the lungs are otherwise clear. There is no pleural effusion or pneumothorax. The chest wall structures appear intact. There is bilateral gynecomastia. The included sections through the upper abdomen show no acute process. Procedure Note Hans Gonsalves MD - 03/28/2024 [facility] [address] [place] [address] Examination: CTA chest. Exam time: 1229 hours. Clinical history: Hemoptysis. History of atrial fibrillation, on Eliquis.History of renal failure, on dialysis. Comparison: None. Technique: Thin section spiral axial scans were acquired through the chestduring the administration of intravenous contrast for evaluation of thegreat vessels. Coronal, sagittal and 3-D MIP coronal reconstructions wereperformed from the data set. A dose lowering technique was used for thisprocedure, which may include, but is not limited to, dose reductiontechniques, automated exposure control, the use of iterativereconstruction and ALARA/Image Gently techniques. Findings: Motion limits assessment of the pulmonary arteries beyond thesegmental branches. Within this limitation, no pulmonary embolism isidentified. Calcific coronary artery disease and minimal atheroscleroticcalcification of the aorta and arch vessels noted. The heart and greatvessels are otherwise unremarkable. No hilar or mediastinal adenopathy isidentified. No endobronchial abnormality is identified. Sub-6 mmnoncalcified nodule in the posteromedial and inferior left lower lobe isconsidered benign based on current Fleischner Society guidelines,presumably a granuloma. There is minor dependent subsegmental atelectasis.Allowing for the respiratory motion, the lungs are otherwise clear. Thereis no pleural effusion or pneumothorax. The chest wall structures appearintact. There is bilateral gynecomastia. The included sections through theupper abdomen show no acute process. IMPRESSION: 1. Negative for pulmonary embolism as described. 2. Coronary artery disease. 3. Bilateral gynecomastia. Ordered By: KELLY LONDONO Interpreted By: Hans Gonsalves MD, 03/28/2024 12:42 PM us Kelly Londono MD CT Final Result * OCCULT BLOOD, FECES (03/28/2024 12:10 PM CDT) OCCULT BLOOD FECAL NEGATIVE NEGATIVE 03/28/2024 12:19 PM CDT [facility] STOOL SPECIMEN / Unknown 03/28/2024 12:10 PM CDT us Kelly Londono MD BODY FLUIDS AND STOOLS ORDER KRIS Final Result Performing Organization Address [facility]/ZIP Co de Phone Number [facility] [address] [place] [phone], * PARTIAL THROMBOPLASTIN TIME,PTT (03/28/2024 11:18 AM CDT) PTT 35.4 25.1 - 36.5 SEC 03/28/2024 11:39 AM CDT [facility] Comment:THERAPEUTIC RANGE: 4 6.2-77.0 SEC 03/28/2024 11:1 8 AM CDT us Kelly Londono MD LABORATORY Final Result Performing Organization Address [facility] Co de Phone Number [facility] [address] [place] [phone], * (ABNORMAL) PROTIME/INR, VENOUS (03/28/2024 11:18 AM CDT) PROTIME 16.8(H) 9.4 - 12.5 SEC 03/28/2024 11:39 AM CDT [facility] INR 1.5(H) 0.8 - 1.0 03/28/2024 11:39 AM CDT [facility] 03/28/2024 11:1 8 AM CDT us Kelly Londono MD LABORATORY Final Result Performing Organization Address [facility]/ZIP Co de Phone Number [facility] [address] [place] [phone], * (ABNORMAL) HEMOGLOBIN, GLYCOSYLATED (09/02/2023 2:49 AM CDT) HGB A1C 7.4(H) <5.7 % 09/02/2023 3:34 PM CDT [facility] ESTIMATED AVG GLUCOSE 166(H) 74 - 114 MG/DL 09/02/2023 3:34 PM CDT [facility] 09/02/2023 2:49 AM CDT Troy Berger MD LABORATORY Final Res ult [facility] [address] [place] [address], [id number] from Last 3 Months or Most Recently Relevant to Health Maintenance Insurance MEDICAID MEDICARE MEDICAID MEDICARE Advance Directives * Full Code (Latest Code Status on File) Date Activated Date Inactivated Comments 03/28/2024 7:39 PM 03/31/2024 5:12 PM * Full Code Date Activated Date Inactivated Comments 02/26/2024 5:55 AM 02/27/2024 5:02 PM * Full Code Date Activated Date Inactivated Comments 12/31/2023 10:39 PM 01/02/2024 9:29 PM * Full Code Date Activated Date Inactivated Comments 09/01/2023 10:23 PM 09/04/2023 8:48 PM Care Teams Embroidery Supervisor Relationship Specialty Start Date End Date Mery Maxwell MD [address] [place] [phone] PCP - General FAMILY PRACTICE 08/19/23
--- OUTSIDE RECORDS SUMMARY | 2024-06-22 17:59 | XMS_ITS | Encounter Summary ---
Author Organization [facility] Address [address] [place] [address]. [place], [place] [id number] [place] [address] Care Team Providers Care Crystal Calibrator Name Role Phone Mery Maxwell MD Primary Care Provider +1- [phone] Encounter Details Date Type Department Care Team (Latest Contact Info) Description 05/28/2024 Travel Social History Tobacco Use Types Packs/Day Years Used Date Smoking Tobacco: Former Cigarettes 1 15 Smokeless Tobacco: Never Alcohol Use Standard Drinks/Week Comments Not Currently 0 (1 standard drink = 0.6 oz pur e alcohol) [facility] Utilities Answer Date Recorded In the past 12 months has [employer] electric, gas, oil, or water [employer] threatened to shut off services in your [...] place to sleep or slept in a mcfp (including now)? Patient declined 09/01/2023 Housing Stability [...] any time in the past 12 m [facility], were you homeless or living in a mcfp (including now)? No 03/28/2024 Sex and Gender [...] 5:25 PM CDT Christina Mercado Nu rse Route Delivery Clerk II Active * Are you blind or do you have serious difficulty seeing, even when wearing glasses? Answer Date of Assessment Author Status No 03/28/2024 5:25 PM CDT Christina Mercado Nu rse Route Delivery Clerk II Active * Do you have serious difficulty walking or climbing stairs? Answer Date of Assessment Author Status Yes 03/28/2024 5:25 PM CDT Christina Mercado Nu rse Route Delivery Clerk II Active * Do you have difficulty dressing or bathing? Answer Date of Assessment Author Status Yes 03/28/2024 5:25 PM CDT Christina Mercado Nu rse Route Delivery Clerk II Active * Because of a physical, mental, or emotional condition, do you have difficulty doing errands alone such as visiting a doctor's office or shopping? Answer Date of Assessment Author Status Yes 03/28/2024 5:25 PM CDT Christina Mercado Nu rse Route Delivery Clerk II Active documented as of this encounter Mental Status * Because of a physical, mental, or emotional condition, do you have serious difficulty concentrating, remembering, or making decisions? Answer Entry Date Author Status No 03/28/2024 5:25 PM CDT Christina Mercado Nu rse Route Delivery Clerk II Active documented in this encounter Plan of Treatment Upcoming Encounters Date Type Department Care Team (Late st Contact Info) Description 07/20/2024 10:30 AM PIN MACHINE TENDER Office Visit [facility] [phone] Martha Ramirez, [place] [address] documented as of this encounter Goals Goal Patient Goal Type Associated Problems Recent Progress Patient-Stated? 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 RN documented as of this encounter Visit Diagnoses Not on filedocumented in this encounter Care Teams Crystal Calibrator Relationship Specialty Start Date End Date Mery Maxwell MD [address] [place] [phone] PCP - General FAMILY PRACTICE 08/19/23 documented as of this encounter
--- OUTSIDE RECORDS SUMMARY | 2024-06-22 17:59 | XMS_ITS | Encounter Summary ---
Author Organization [facility] Address [address] [place] [address]. [place] [address] [place] [address] Care Team Providers Care Molder Sweep Name Role Phone Mery Maxwell MD Primary Care Provider +1- [phone] Reason for Visit * Reason Onset Date Comments Surgical Clearance 05/10/2024 Encounter Details Date Type Department Care Team (Late st Contact Info) Description 05/10/2024 Telephone [facility]d [address] [place] [address] Martha Ramirez, [facility] [place] [address] Surgical Clearance Social History Tobacco Use Types Packs/Day Years Used Date Smoking Tobacco: Former Cigarettes 1 15 Smokeless Tobacco: Never Alcohol Use Standard Drinks/Week Comments Not Currently 0 (1 standard drink = 0.6 oz pur e alcohol) [facility] Utilities Answer Date Recorded In the past 12 months has [facility] [email or web address], gas, oil, or water [employer] threatened to shut off services in your [...] place to sleep or slept in a skilled nursing (including now)? Patient declined 09/01/2023 Housing Stability [...] any time in the past 12 m [facility], were you homeless or living in a skilled nursing (including now)? No 03/28/2024 Sex and Gender Information Value Date Recorded Sex Assigned at Not on file Legal Sex Male 6:24 PM CDT Gender Identity Not on file Sexual Orientation Not on file documented as of this encounter Functional Status * Are you deaf or do you have serious difficulty hearing Answer Date of Assessment Author Status No 03/28/2024 5:25 PM CDT MercadoNataliiaSachi matute rse Social Services Designee II Active * Are you blind or do you have serious difficulty seeing, even when wearing glasses? Answer Date of Assessment Author Status No 03/28/2024 5:25 PM CDT MercadoNataliiajuju Nu rse Social Services Designee II Active * Do you have serious difficulty walking or climbing stairs? Answer Date of Assessment Author Status Yes 03/28/2024 5:25 PM CDT Rogelio Nataliiajuju Nu rse Social Services Designee II Active * Do you have difficulty dressing or bathing? Answer Date of Assessment Author Status Yes 03/28/2024 5:25 PM CDT MercadoNataliiajuju Nu rse Social Services Designee II Active * Because of a physical, mental, or emotional condition, do you have difficulty doing errands alone such as visiting a doctor's office or shopping? Answer Date of Assessment Author Status Yes 03/28/2024 5:25 PM CDT MercadoNataliiaSachi matute rse Social Services Designee II Active documented as of this encounter Mental Status * Because of a physical, mental, or emotional condition, do you have serious difficulty concentrating, remembering, or making decisions? Answer Entry Date Author Status No 03/28/2024 5:25 PM CDT MercadoRoelSachi robles rse Social Services Designee II Active documented in this encounter Progress Notes * Bailey Huynh - 05/16/2024 9:11 AM CST Called the patient and left a msg doesn't need to be seen. That if he has that doctor call with a fax number we can fax over Irina dean. NG DRIVER * Bailey Huynh - 05/10/2024 1:17 PM CST Patient called for risk assessment for cataract surgery scheduled on 05/23/[address] John Mason. Patient was seen in Jan. Does he need another appointment or can you please write up a note for the eye doctor? NG DRIVER documented in this encounter Plan of Treatment Upcoming Encounters Date Type Department Care Team (Late st Contact Info) Description 07/20/2024 10:30 AM RACING DRIVER Office Visit [facility] [place] [address] Martha Ramirez, [facility]-[address] [address] documented as of this encounter Goals Goal Patient Goal Type Associated Problems Recent Progress Patient-Stated? 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, RN documented as of this encounter Visit Diagnoses Not on filedocumented in this encounter Care Teams Molder Sweep Relationship Specialty Start Date End Date Mery Maxwell MD [address] [place] [phone] PCP - General FAMILY PRACTICE 08/19/23 documented as of this encounter
--- OUTSIDE RECORDS SUMMARY | 2024-06-22 18:00 | XMS_ITS | Encounter Summary ---
Author Organization [facility] Address [address] [place] [address]. [place], [place] [id number] [place] [address] Care Team Providers Care Can Closing Machine Tender Name Role Phone Mery Maxwell MD Primary Care Provider +1- [phone] Reason for Visit * Reason Onset Date Comments Appointment Request 01/11/2024 Encounter Details Date Type Department Care Team (Late st Contact Info) Description 01/11/2024 Telephone [facility] [address] [place] [address] Quynh Galloway MD [address] [place] [address] Appointment Request Social History Tobacco Use Types Packs/Day Years Used Date Smoking Tobacco: Former Cigarettes Smokeless Tobacco: Never Alcohol Use Standard Drinks/Week Comments Not Currently 0 (1 standard drink = 0.6 oz pur e alcohol) [facility] Utilities Answer Date Recorded In the past 12 months has [facility] [employer], gas, oil, or water [employer] threatened to shut off services in your home? No 01/02/2024 Humiliation, Afraid, Rape, and Kick questionnair e Answer Date Recorded Within the last year, have y ou been afraid of your partner or ex-partner? Patient declined 01/02/2024 Within the last year, have y ou been humiliated or emotionally abused in other ways by your partner or ex-partner? Patient declined 01/02/2024 Within the last year, have y ou been kicked, hit, slapped, or otherwise physically hurt by your partner or ex-partner? Patient declined 01/02/2024 Within the last year, have y ou been raped or forced to have any kind of sexual activity by your partner or ex-partner? Patient declined 01/02/2024 Overall Financial Resource Strain (CARDIA) Answe r Date Recorded How hard is it for you to pa y for the very basics like food, housing, medical care, and heating? Not very hard 01/01/2024 Hunger Vital Sign Answer Date Recorded Within the past 12 months, y ou worried that your food would run out before you got the money to buy more. Never true 01/01/20 24 Within the past 12 months, t he food you bought just didn't last and you didn't have money to get more. Never true 01/01/2024 PRAPARE - Transportation Answer Date Re corded In the past 12 months, has l ack of transportation kept you from medical appointments or from getting medications? No 12/14 In the past 12 months, has l ack of transportation kept you from meetings, work, or from getting things needed for daily living? No 01/02/2024 Housing Stability Vital Sign Answer Kelvin e [...] place to sleep or slept in a long-term (including now)? Patient declined 09/01/2023 Housing Stability Vital Sign Answer Kelvin e Recorded In the last 12 months, was t here a time when you were not able to pay the mortgage or rent on time? No 01/01/2024 In the past 12 months, how m any times have you moved where you were living? 0 01/01/2024 At any time in the past 12 m [facility], were you homeless or living in a long-term (including now)? No 01/01/2024 Sex and Gender Information Value Date Recorded Sex Assigned at Not on file Legal Sex Male 6:24 PM CDT Gender Identity Not on file Sexual Orientation Not on file documented as of this encounter Functional Status * Are you deaf or do you have serious difficulty hearing Answer Date of Assessment Author Status No 12/31/2023 10:19 PM KELSIT Kathy Jim RN Active * Are you blind or do you have serious difficulty seeing, even when wearing glasses? Answer Date of Assessment Author Status No 12/31/2023 10:19 PM Kathy Moffett RN Active * Do you have serious difficulty walking or climbing stairs? Answer Date of Assessment Author Status Yes 12/31/2023 10:19 PM Kathy Moffett RN Active * Do you have difficulty dressing or bathing? Answer Date of Assessment Author Status Yes 12/31/2023 10:19 PM CDT Kathy Jim RN Active * Because of a physical, mental, or emotional condition, do you have difficulty doing errands alone such as visiting a doctor's office or shopping? Answer Date of Assessment Author Status No 12/31/2023 10:19 PM Kathy Moffett RN Active documented as of this encounter Mental Status * Because of a physical, mental, or emotional condition, do you have serious difficulty concentrating, remembering, or making decisions? Answer Entry Date Author Status No 12/31/2023 10:19 PM Kathy Moffett RN Active documented in this encounter Progress Notes * Guera Reynoso - 01/11/2024 10:36 AM CDT Pt requests to be seen in [place]. He does not have transportation to [facility]. Pt is scheduled for 04.27.24 at 830am in [place]. Gave address information. Pt v/u and marked his calendar. Will mail appt reminder this date. * Deven Fisher RN - 01/11/2024 10:16 AM CDT Can you see if this patient can come in 02/18 10AM referral from his PCP for BP management. documented in this encounter Plan of Treatment Upcoming Encounters Date Type Department Care Team (Late st Contact Info) Description 07/20/2024 10:30 AM INVENTORY SPECIALIST Office Visit [facility] [place] [phone] Martha Ramirez, ANP-[address] [address] documented as of this encounter Goals Goal Patient Goal Type Associated Problems Recent Progress Patient-Stated? 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 RN documented as of this encounter Visit Diagnoses Not on filedocumented in this encounter Care Teams Can Closing Machine Tender Relationship Specialty Start Date End Date Mery Maxwell MD [address] [place] [phone] PCP - General FAMILY PRACTICE 08/19/23 documented as of this encounter
--- OUTSIDE RECORDS SUMMARY | 2024-06-22 18:00 | XMS_ITS | Encounter Summary ---
Author Organization [facility] Address [address] [place] [address]. [place] [address] [place] [address] Care Team Providers Care Speech Language Therapist Name Role Phone Mery Maxwell MD Primary Care Provider [phone] Reason for Visit * Reason Comments Breathing Problem Hypertension Follow Up Encounter Details Date Type Department Care Team (Late st Contact Info) Description 09/12/2023 5:29 PM CDT - 09/12/2023 7:02 PM CDT Emergency [facility] [address] [facility] [address] Vinay Austin MD [address] [place] [id number] Breathing Problem; Hypertension Follow Up Discharge Disposition: Home or Self Care (Routine Discharge) Social History Tobacco Use Types Packs/Day Years Used Date Smoking Tobacco: Former Cigarettes Smokeless Tobacco: Never Tobacco Cessation:Counseling Given: Not Answered Alcohol Use Standard Drinks/Week Comments Not Currently 0 (1 standard drink = 0.6 oz pur e alcohol) [facility] Utilities Answer Date Recorded In the past 12 months has [employer], oil, or water [employer] threatened to shut off services in your home? Patient declined 09/01/2023 Humiliation, Afraid, Rape, and Kick questionnair e Answer Date Recorded Within the last year, have y ou been afraid of your partner or ex-partner? Patient declined 09/01/2023 Within the last year, have y ou been humiliated or emotionally abused in other ways by your partner or ex-partner? Patient declined 09/01/2023 Within the last year, have y ou been kicked, hit, slapped, or otherwise physically hurt by your partner or ex-partner? Patient declined 09/01/2023 Within the last year, have y ou been raped or forced to have any kind of sexual activity by your partner or ex-partner? Patient declined 09/01/2023 Overall Financial Resource Strain (CARDIA) Answe r Date Recorded How hard is it for you to pa y for the very basics like food, housing, medical care, and heating? Patient declined 09/01/2023 Hunger Vital Sign Answer Date Recorded Within the past 12 months, y ou worried that your food would run out before you got the money to buy more. Patient declined Within the past 12 months, t he food you bought just didn't last and you didn't have money to get more. Patient declined PRAPARE - Transportation Answer Date Re corded In the past 12 months, has l ack of transportation kept you from medical appointments or from getting medications? Patient declined 09/01/2023 In the past 12 months, has l ack of transportation kept you from meetings, work, or from getting things needed for daily living? Patient declined 09/01/2023 Housing Stability Vital Sign [...] to sleep or slept in a senior living (including now)? Patient declined 09/01/2023 Sex and Gender Information Value Date Recorded Sex Assigned at Not on file Legal Sex Male 6:24 PM CDT Gender Identity Not on file Sexual Orientation Not on file documented as of this encounter Last Filed Vital Signs Vital Sign Reading Time Taken Comments Blood Pressure 144/71 09/12/2023 6:45 PM CDT Pulse 64 09/12/2023 6:45 PM CDT Temperature 36.7 ??C (98 ??F) 09/12/2023 5:44 PM CDT Respiratory Rate 24 09/12/2023 6:45 PM CDT Oxygen Saturation 97% 09/12/2023 6:45 PM CDT Inhaled Oxygen Concentration - - Weight 116.1 kg (255 lb 15.3 oz) 09/12/2023 5:44 PM CDT Height 193 cm (6' 4 ) 09/12/2023 5:44 PM CDT Body Mass Index 31.16 09/12/2023 5:44 PM CDT documented in this encounter Functional Status * Are you deaf or do you have serious difficulty hearing Answer Date of Assessment Author Status No 09/01/2023 10:00 PM CDT Paola Obrien RN Active * Are you blind or do you have serious difficulty seeing, even when wearing glasses? Answer Date of Assessment Author Status Yes 09/01/2023 10:00 PM CDT Paola Obrien RN Active * Do you have serious difficulty walking or climbing stairs? Answer Date of Assessment Author Status Yes 09/01/2023 10:00 PM CDT Paola Obrien RN Active * Do you have difficulty dressing or bathing? Answer Date of Assessment Author Status Yes 09/01/2023 10:00 PM CDT Paola Obrien RN Active * Because of a physical, mental, or emotional condition, do you have difficulty doing errands alone such as visiting a doctor's office or shopping? Answer Date of Assessment Author Status Yes 09/01/2023 10:00 PM KELSIT Paola Obrien RN Active documented as of this encounter Mental Status * Because of a physical, mental, or emotional condition, do you have serious difficulty concentrating, remembering, or making decisions? Answer Entry Date Author Status Yes 09/01/2023 10:00 PM CDT Paola Obrien RN Active documented in this encounter Discharge Instructions * Attachments The following attachments cannot be sent through Care Everywhere. * Hypokalemia Discharge Instructions (Nauruan) * Kidney Failure Discharge Instructions (Nauruan) documented in this encounter Medications at Time of Discharge allopurinol (ZYLOPRIM) 100 MG tablet Take 1 tablet (100 mg total) by mouth 2 (two) times daily. 08/03/2023 atorvastatin (LIPITOR) 20 MG tablet Take 1 tablet (20 mg total) by mouth daily. 08/03/2023 ELIQUIS 5 MG tablet Take 1 tablet [...] into the skin nightly at bedtime. 08/03/2023 traMADol (ULTRAM) 50 MG tabletIndications :Acute Pain < 7 Day Supply Indications: Acute Pain < 7 Day Supply 1-2 every 6 hours as needed for pain 20 tablet 08/19/2023 amiodarone (PACERONE) 200 MG tablet Take 1 tablet (200 mg total) by mouth daily. 08/03/2023 02/03/2024 calcitriol (ROCALTROL) 0.25 MCG capsule Take 1 capsule (0.25 mcg total) by mouth every other day. [facility] 08/03/2023 02/26/2024 carvedilol (COREG) 12.5 MG tablet Take 2 tablets (25 mg total) by mouth 2 (two) times daily. 10/13/2022 02/03/2024 Cholecalciferol 50 MCG (2000 UT) Tab Take 2 Capfuls by mouth daily. 02/03/2024 fluticasone propionate (FLONASE) 50 MCG/ACT nasal spray 1 spray by Nasal route daily. 01/30/2023 02/03/2024 insulin lispro, 1 Unit Dial, (HUMALOG) 100 UNIT/ML injection (PEN) Inject 1-6 Units into the skin 3 (three) times daily. SLIDING SCALE 02/03/2024 midodrine (PROAMATINE) 10 MG tablet Take 1 tablet (10 mg total) by mouth 3 (three) times daily. 08/03/2023 02/03/2024 pantoprazole EC (PROTONIX) 40 MG tablet Take 1 tablet (40 mg total) by mouth daily. 05/22/2023 02/26/2024 Senna (SENNOSIDES) 8.6 MG tablet Take 1 tablet (8.6 mg total) by mouth daily. 02/03/2024 sevelamer carbonate (RENVELA) 800 MG tablet Take 2 tablets (1,600 mg total) by mouth 3 (three) times daily with meals. 02/03/2024 traMADol (ULTRAM) 50 MG tablet Take 1 tablet (50 mg total) by mouth every 6 (six) hours as needed for Pain. 02/03/2024 documented as of this encounter ED Notes * Venus Delgado RN - 09/12/2023 5:32 PM CDT Per ems from home with c/o feeling sob that began after returning home from dialysis at 1615. States checked bp at home with reading of 207/98 and felt should have this checked. Pt denies illness, congestion or cough. Denies pain * Vinay Austin MD - 09/12/2023 5:28 PM CDT eMERGENCY dEPARTMENT eNCOUnter CHIEF COMPLAINT Chief Complaint Patient presents with Breathing Problem Hypertension Follow Up HPI HPI Vinay Campos is a 52-year-old male who presents to the ER with a complaint of difficulty breathing. Patient is well-known to our emergency department multiple visits over the past month after recently relocating to this area. He is a renal failure patient with a Thursday dialysis schedule. He had his regular dialysis today states that it was uneventful however once he got homehe felt short of breath. His blood pressure was 200 systolic. He called EMS to bring him to the emergency department. He states he is concerned he might be a problem with his potassium like was the last time he was here. No recent illness or other complaints. ALLERGIES Review of patient's allergies indicates: Allergen Reactions Amoxicillin Hives CURRENT MEDICATIONS Current Outpatient Medications Medication Sig allopurinol (ZYLOPRIM) 100 MG tablet Take 1 tablet (100 mg total) by mouth 2 (two) times daily. amiodarone (PACERONE) 200 MG tablet Take 1 tablet (200 mg total) by mouth daily. atorvastatin (LIPITOR) 20 MG tablet Take 1 tablet (20 mg total) by mouth daily. calcitriol (ROCALTROL) 0.25 MCG capsule Take 1 capsule (0.25 mcg total) by mouth every other day. T-TH-SAT carvedilol (COREG) 12.5 MG tablet Take 1 tablet (12.5 mg total) by mouth 2 (two) times daily. Cholecalciferol 50 MCG (2000 UT) Tab Take 2 Capfuls by mouth daily. ELIQUIS 5 MG tablet Take 1 tablet (5 mg total) by mouth 2 (two) times daily. gabapentin (NEURONTIN) 100 MG capsule Take 1 capsule (100 mg total) by mouth 2 (two) times a day. insulin lispro, 1 Unit Dial, (HUMALOG) 100 UNIT/ML injection (PEN) Inject 8 Units into the skin 3 (three) times daily before meals. LANTUS SOLOSTAR 100 UNIT/ML injection (PEN) Inject 10 Units into the skin nightly at bedtime. midodrine (PROAMATINE) 10 MG tablet Take 1 tablet (10 mg total) by mouth 3 (three) times daily. pantoprazole EC (PROTONIX) 40 MG tablet Take 1 tablet (40 mg total) by mouth daily. traMADol (ULTRAM) 50 MG tablet Indications: Acute Pain < 7 Day Supply 1-2 every 6 hours as needed for pain fluticasone propionate (FLONASE) 50 MCG/ACT nasal spray 1 spray by Nasal route daily. insulin lispro, 1 Unit Dial, (HUMALOG) 100 UNIT/ML injection (PEN) Inject 1-6 Units into the skin 3(three) times daily. SLIDING SCALE Senna (SENNOSIDES) 8.6 MG tablet Take 1 tablet (8.6 mg total) by mouth daily. sevelamer carbonate (RENVELA) 800 MG tablet Take 2 tablets (1,600 mg total) by mouth 3 (three) times daily with meals. traMADol (ULTRAM) 50 MG tablet Take 1 tablet (50 mg total) by mouth every 6 (six) hours as needed for Pain. PAST MEDICAL HISTORY Past Medical History: Diagnosis Date A-fib ([facility]/HCC HHS/HCC) Constipation Diabetes mellitus (CMS/HCC HHS/HCC) ESRD (end stage renal disease) (CMS/HCC HHS/HCC) GERD (gastroesophageal reflux disease) Gout, unspecified High cholesterol Neuropathy 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CMS/HCC) Renal disorder SURGICAL HISTORY Past Surgical History: Procedure Laterality Date FISTULA CANNULATION SET, EA TONSILLECTOMY SOCIAL HISTORY Social History Socioeconomic History Marital status: Unknown Tobacco Use Smoking status: Former Types: Cigarettes Smokeless tobacco: Never Vaping Use Vaping Use: Never used Substance and Sexual Activity Alcohol use: Not Currently Drug use: Not Currently Sexual activity: Not Currently Social Determinants of Health Financial Resource Strain: Patient Declined (09/01/2023) Overall Financial Resource Strain (CARDIA) Difficulty of Paying Living Expenses: Patient declined Food Insecurity: Patient Declined (09/01/2023) Hunger Vital Sign Worried About Running Out of Food in the Last Year: Patient declined Ran Out of Food in the Last Year: Patient declined Transportation Needs: Patient Declined (09/01/2023) PRAPARE - Transportation Lack of Transportation (Medical): Patient declined Lack of Transportation (Non-Medical): Patient declined Intimate Partner Violence: Patient Declined (09/01/2023) Humiliation, Afraid, Rape, and Kick questionnaire Fear of Current or Ex-Partner: Patient declined Emotionally Abused: Patient declined Physically Abused: Patient declined Sexually Abused: Patient declined Housing Stability: Patient Declined (09/01/2023) Housing Stability Vital Sign Unable to Pay for Housing in the Last Year: Patient declined Number of Places Lived in the Last Year: 1 Unstable Housing in the Last Year: Patient declined FAMILY HISTORY No family history on file. REVIEW OF SYSTEMS Review of Systems All other ROS negative unless noted above in HPI. PHYSICAL EXAM Physical Exam Filed Vitals: 09/12/23 1744 09/12/23 1820 09/12/23 1845 BP: (!) 143/70 (!) 151/80 (!) 144/71 Pulse: 64 64 64 Resp: 24 Temp: 98 ??F (36.7 ??C) TempSrc: Oral SpO2: 96% 93% 97% Weight: 116.1 kg (255 lb 15.3 oz) Height: 1.93 m (6' 4 ) The patient is a well developed and well nourished adult male in no distress, alert and oriented. HEENT: PERRL, EOMI Throat without lesions, mucous membranes moist NECK: Supple without adenopathy or rigidity CHEST: Lungs clear and equal to auscultation Heart regular rate and rhythm without murmur ABD: Soft, NABS, non tender EXT: No clubbing, cyanosis, edema NEURO: CN II-XII intact, no focal weakness SKIN: No rash or significant lesions EKG EKG on my read shows normal sinus rhythm nonspecific T wave abnormality no acute ischemic changes RADIOLOGY XR CHEST PORTABLE Final Result by User, [id number] (09/11 349) Examination: XR CHEST PORTABLE Exam time: 09/12/2023 6:14 PM Indication: Dyspnea Comparison: 09/01/2023 Technique: Portable AP view the chest, one image. Findings: Mild prominence of the cardiac silhouette and pulmonary vasculature. No pneumothorax, large pleural effusion, or focal consolidation. No acute osseous abnormality. IMPRESSION: Mild prominence of the cardiac silhouette and pulmonary vasculature, otherwise no radiographic evidence of active chest disease. Referred By: Interpreted By: Selwyn Harrington MD, 09/12/2023 6:30 PM LABS Results for orders placed or performed during the hospital encounter of 09/12/23 CBC W/DIFF AUTOMATED Result Value Ref Range WBC 7.42 4.00 - 10.80 x10'3/uL RBC 3.55 (L) 4.50 - 6.10 x10'6/uL HGB 11.7 (L) 13.0 - 18.0 G/DL HCT 35.5 (L) 37.0 - 52.0 % MCV 100.0 78.0 - 100.0 FL MCH 33.0 (H) 27.0 - 31.0 PG MCHC 33.0 33.0 - 36.0 G/DL RDW 13.6 11.5 - 14.5 % PLT 211 150 - 350 x10'3/uL MPV 9.2 7.4 - 10.4 FL CBC COMMENT NORMAL REFERENCE RANGE NOT ESTABLISHED FOR THE PROPORTIONAL LEUKOCYTE DIFFERENTIAL. NEUTROPHILS 64.4 % LYMPHOCYTES 22.0 % MONOCYTES 6.9 % EOSINOPHILS 4.6 % BASOPHILS 1.2 % IMMATURE GRANS 0.9 % NRBC 0.0 % ABS. NEUTROPHILS 4.78 1.60 - 8.30 x10'3/uL ABS. LYMPHOCYTES 1.63 0.80 - 4.70 x10'3/uL ABS. MONOCYTES 0.51 0.00 - 1.50 x10'3/uL ABS. EOSINOPHILS 0.34 0.00 - 0.40 x10'3/uL ABS. BASOPHILS 0.09 0.00 - 0.20 x10'3/uL ABS. IMMATURE GRANULOCYTES 0.07 (H) 0.00 - 0.03 x10'3/uL ABS. NUCLEATED RBC'S 0.00 0.00 x10'3/uL BASIC METABOLIC PANEL Result Value Ref Range SODIUM S/P/B 134 (L) 136 - 145 MMOL/L POTASSIUM S/P/B 2.8 (LL) 3.5 - 5.1 MMOL/L CHLORIDE S/P/B 93 (L) 98 - 107 MMOL/L CO2 31.0 21.0 - 32.0 MMOL/L GLUCOSE 147 (H) 70 - 99 MG/DL BUN 21 6 - 24 MG/DL CREATININE S/P/B 2.89 (H) 0.70 - 1.30 MG/DL CALCIUM S/P/B 8.9 8.4 - 10.5 MG/DL ANION GAP 10.0 5.0 - 15.0 MMOL/L OSMOLALITY (CALC) 284 MOSM/KG GFR ESTIMATE 26 (L) >89 ML/MIN/1.73 M2 GFR NOTES GFR REFERENCES: ED MEDICATIONS Medications potassium chloride CR (KLOR-CON M) tablet 40 mEq (40 mEq Oral Given 09/12/231844) PROCEDURES Procedures CONSULTS: ED COURSE & MEDICAL DECISION MAKING MDM Amount and/or Complexity of Data Reviewed Clinical lab tests: reviewed Tests in the radiology section of CPT??: reviewed Tests in the medicine section of CPT??: reviewed Decide to obtain previous medical records or to obtain history from someone other than the patient:yes ED Course as of 09/12/232049 Sat Sep 12, 2023 1819 CBC W/DIFF AUTOMATED(!) Unremarkable [WM] 1833 BASIC METABOLIC PANEL(!!) [WM] 183 CBC W/DIFF AUTOMATED(!) Chemistries show evidence of chronic kidney disease plus low potassium again. I will order oral replacement. [WM] 1835 XR CHEST PORTABLE X-ray report is noted [WM] ED Course User Index [WM] Vinay Austin MD Patient presents in no distress with stable vital signs pulse ox 97% blood pressure 140 systolic. Will initiate laboratory workup and check chest x-ray. His potassium is low once again it is unclear why. 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 It would be unlikely that his hypokalemia caused his trouble breathing and elevated blood pressure earlier. His vital signs are stable and he appears appropriate for outpatient follow-up with nephrology. FINAL IMPRESSION SNOMED CT(R) 1. Hypokalemia HYPOKALEMIA 2. Chronic renal failure CHRONIC RENAL FAILURE Mery Maxwell MD [address] [facility] [address] Christen Ng MD [address] [facility] [address] Call Please let him know how you are doing Discharge Medication List as of 09/12/2023 6:59 PM Vinay Austin MD 09/12/232049 documented in this encounter Plan of Treatment Upcoming Encounters Date Type Department Care Team (Late st Contact Info) Description 07/20/2024 10:30 AM EPIC CUPID ANALYST Office Visit [facility] [place] [address] Martha Ramirez [facility]- [address] [place] [address] documented as of this encounter Procedures Procedure Name Priority Date/Time Associated Diagnosis Comments XR CHEST PORTABLE STAT 09/12/2023 6:1 4 PM CDT BASIC METABOLIC PANEL STAT 09/12/2023 6:06 PM CDT CBC W/DIFF AUTOMATED STAT 09/12/2023 6:06 PM CDT ECG 12-LEAD Routine 09/12/2023 5:38 PM CDT documented in this encounter Results * XR CHEST PORTABLE (09/12/2023 6:14 PM CDT) Anatomical Region Laterality Modality Chest Radiographic Susannah ging 09/12/2023 6:30 PM CDT Impressions 09/12/2023 6:32 PM CDT IMPRESSION: Mild prominence of the cardiac silhouette and pulmonary vasculature, otherwise no radiographic evidence of active chest disease. Referred By: ?? Interpreted By: Selwyn Harrington MD, 09/12/2023 6:30 PM Narrative 09/12/2023 6:32 PM CDT Examination: XR CHEST PORTABLE Exam time: 09/12/2023 6:14 PM Indication: Dyspnea Comparison: 09/01/2023 Technique: Portable AP view the chest, one image. Findings: Mild prominence of the cardiac silhouette and pulmonary vasculature. ??No pneumothorax, large pleural effusion, or focal consolidation. ??No acute osseous abnormality. Procedure Note Selwyn Harrington MD - 09/12/2023 Examination: XR CHEST PORTABLE Exam time: 09/12/2023 6:14 PM Indication: Dyspnea Comparison: 09/01/2023 Technique: Portable AP view the chest, one image. Findings: Mild prominence of the cardiac silhouette and pulmonaryvasculature. No pneumothorax, large pleural effusion, or focalconsolidation. No acute osseous abnormality. IMPRESSION: Mild prominence of the cardiac silhouette and pulmonaryvasculature, otherwise no radiographic evidence of active chest disease. Referred By: Interpreted By: Selwyn Harrington MD, 09/12/2023 6:30 PM Vinay Austin MD GENERAL IMAGING Final Result * (ABNORMAL) BASIC METABOLIC PANEL (09/12/2023 6:06 PM CDT) SODIUM S/P/B 134(L) 136 - 145 MMOL/L 09/12/2023 6:32 PM CDT [facility] POTASSIUM S/P/B 2.8(LL) 3.5 - 5.1 MMOL/L 09/12/2023 6:32 PM CDT [facility] Comment: Critical Result(s) Called to and read back by: BEST ?? at: 18:30:58 ??09/12/2023 by EPSI. CHLORIDE S/P/B 93(L) 98 - 107 MMOL/L 09/12/2023 6:32 PM CDT [facility] CO2 31.0 21.0 - 32.0 MMOL/L 09/12/2023 6:32 PM CDT [facility] GLUCOSE 147(H) 70 - 99 MG/DL 09/12/2023 6:32 PM CDT [facility] Comment: FASTING GLUCOSE 100 TO 125 MG/DL IS CONSISTENT WITH IMPAIRED FASTING GLUCOSE. FASTING GLUCOSE >125 MG/DL IS CONSISTENT WITH DIABETES. RANDOM GLUCOSE >200 MG/DL WITH HYPERGLYCEMIC SYMPTOMS IS CONSISTENT WITH DIABETES. PER ADA GUIDELINES BUN 21 6 - 24 MG/DL 09/12/2023 6:32 PM CDT [facility] CREATININE S/P/B 2.89(H) 0.70 - 1.30 MG/DL 09/12/2023 6:32 PM CDT [facility] CALCIUM S/P/B 8.9 8.4 - 10.5 MG/DL 09/12/2023 6:32 PM CDT [facility] ANION GAP 10.0 5.0 - 15.0 MMOL/L 09/12/2023 6:32 PM CDT [facility] OSMOLALITY (CALC) 284 MOSM/KG 024 6:32 PM T [facility] Comment:REFERENCE RANGE NOT ESTABLISHED GFR ESTIMATE 26(L) >89 ML/MIN/1. 73 M2 09/12/2023 6:32 PM T [facility] GFR NOTES GFR REFERENCE S: 09/12/2023 6:32 PM T [facility] Comment: THE ESTIMATED GFR [...] ml/min/1.73 m2 G5,KIDNEY FAILURE: <15 ml/min/1.73 m2 09/12/2023 6:06 PM CDT us Vinay Austin MD LABORATORY Final Result [facility] [address] [place] [address], * (ABNORMAL) CBC W/DIFF AUTOMATED (09/12/2023 6:06 PM CDT) WBC 7.42 4.00 - 10.80 x10'3/uL 09/12/2023 6:16 PM CDT [facility] RBC 3.55(L) 4.50 - 6.10 x10'6/uL 09/12/2023 6:16 PM CDT [facility] HGB 11.7(L) 13.0 - 18.0 G/DL 09/12/2023 6:16 PM CDT [facility] HCT 35.5(L) 37.0 - 52.0 % 09/12/2023 6:16 PM CDT [facility] MCV 100.0 78.0 - 100.0 FL 09/12/2023 6:16 PM CDT [facility] MCH 33.0(H) 27.0 - 31.0 PG 09/12/2023 6:16 PM CDT [facility] MCHC 33.0 33.0 - 36.0 G/DL 09/12/2023 6:16 PM CDT [facility] RDW 13.6 11.5 - 14.5 % 09/12/2023 6:16 PM CDT [facility] PLT 211 150 - 350 x10'3/uL 09/12/2023 6:16 PM CDT [facility] MPV 9.2 7.4 - 10.4 FL 09/12/2023 6:16 PM CDT [facility] CBC COMMENT NORMAL REFERENCE RANGE NOT ESTABLISHED FOR THE PROPORTIONAL LEUKOCYTE DIFFERENTIAL. 09/12/2023 6:16 PM CDT [facility] NEUTROPHILS % 64.4 % 09/12/2023 6:16 PM CDT [facility] LYMPHOCYTES % 22.0 % 09/12/2023 6:16 PM CDT [facility] MONOCYTES % 6.9 % 09/12/2023 6:16 PM CDT [facility] EOSINOPHILS % 4.6 % 09/12/2023 6:16 PM CDT [facility] BASOPHILS % 1.2 % 09/12/2023 6:16 PM CDT [facility] IMMATURE GRANS % 0.9 % 09/12/19 6:16 PM CDT [facility] NRBC 0.0 % 09/12/2023 6:16 PM CDT [facility] ABS. NEUTROPHILS 4.78 1.60 - 8.30 x10'3/uL 09/12/2023 6:16 PM CDT [facility] ABS. LYMPHOCYTES 1.63 0.80 - 4.70 x10'3/uL 09/12/2023 6:16 PM CDT [facility] ABS. MONOCYTES 0.51 0.00 - 1.50 x10'3/uL 09/12/2023 6:16 PM CDT [facility] ABS. EOSINOPHILS 0.34 0.00 - 0.40 x10'3/uL 09/12/2023 6:16 PM CDT [facility] ABS. BASOPHILS 0.09 0.00 - 0.20 x10'3/uL 09/12/2023 6:16 PM CDT [facility] ABS. IMMATURE GRANULOCYTES 0.07(H) 0.00 - 0.03 x10'3/uL 09/12/2023 6:16 PM CDT [facility] ABS. NUCLEATED RBC'S 0.00 0.00 x10'3/uL 09/12/2023 6:16 PM CDT [facility] 09/12/2023 6:06 PM CDT us Vinay Austin MD LABORATORY Final Result [facility] [address] [place] [address], * ECG 12 lead (09/12/2023 5:38 PM CDT) 09/12/2023 5:[address] [facility] [place] [facility] - 09/12/2023 7:06 PM CDT ? [facility] ?[address] [place], [place] ??[address] ? Test Date: ?2023-09-12 Pat Name: ? VINAY CAMPOS ?Department: ?? 3 ? Room: ? EXAM 606 Gender: ? Male ? Environmental Studies Program Director: ?? : ?1970 ? Requested By: VINAY AUSTIN Order Number: [id number] ? Reading MD: ?? Timbo Valdez ? Measurements Intervals ?[place] ? Rate: ? 64 ? P: ?42 AR: ? 186 ?QRS: ?-23 QRSD: ? 114 ?T: ?7 QT: ? 434 ? QTc: ?449 ? Interpretive Statements SINUS RHYTHM POSSIBLE LEFT ATRIAL ENLARGEMENT BORDERLINE LEFT AXIS DEVIATION MODERATE INTRAVENTRICULAR CONDUCTION DELAY NONSPECIFIC T-WAVE ABNORMALITY Procedure Note Timbo Valdez MD - 09/12/[address] [place] [address] Test Date: 2023-09-12 Pat Name: VINAY CAMPOS Department: 3 Room: EXAM 606 Gender: Male Environmental Studies Program Director: : 1970 Requested By: VINAY AUSTIN Order Number: [id number] Andrea MD: Jonnathan Measurements Intervals [place] Rate: 64 P: 42 AR: 186 QRS: -23 QRSD: 114 T: 7 QT: 434 QTc: 449 Interpretive Statements SINUS RHYTHM POSSIBLE LEFT ATRIAL ENLARGEMENT BORDERLINE LEFT AXIS DEVIATION MODERATE INTRAVENTRICULAR CONDUCTION DELAY NONSPECIFIC T-WAVE ABNORMALITY us Vinay Austin MD ECG ORDERABLES Final Result [facility] documented in this encounter Visit Diagnoses Diagnosis Hypokalemia- Primary Hypopotassemia Chronic renal failure Chronic kidney disease, unspecified documented in this encounter Administered Medications Inactive Administered Medications - up to 3 most recent administrations Medication Order MAR Action Action Date Dose Rate Site potassium chloride CR (KLOR-CON M) 20 MEQ tablet 1 dose, Starting on 09/12/23 at 1841, Until 09/12/23 at 1845, Created by cabinet override Do not chew, crush, or suck on tablet. May break in half. May dissolve whole tablet in 120 mL of water and drink immediately. potassium chloride CR (KLOR-CON M) tablet 40 mEq 40 mEq, Oral, Once, 1 dose, On 09/12/23 at 1845, Do not chew, crush, or suck on tablet. May break in half. May dissolve whole tablet in 120 mL of water and drink immediately. Given 09/12/2023 6:45 PM CDT 40 mEq documented in this encounter Active and Recently Administered Medications Times are shown in CDT. Scheduled Medication Order 09/10/2023 09/11/2023 09/12/2023 potassium chloride CR (KLOR-CON M) tablet 40 mEq (COMPLETED) 40 mEq, Oral, Once, 1 dose, On 09/12/23 at 1845, Do not chew, crush, or suck on tablet. May break in half. May dissolve whole tablet in 120 mL of water and drink immediately. 184 (Given - Provid er: Venus Delgado RN) documented in this encounter Care Teams Speech Language Therapist Relationship Specialty Start Date End Date Mery Maxwell MD [address] [place] [phone] PCP - General FAMILY PRACTICE 08/19/23 documented as of this encounter
--- OUTSIDE RECORDS SUMMARY | 2024-06-22 18:00 | XMS_ITS | Encounter Summary ---
Author Organization [facility] Address [address] [place] [address]. [place] [address] [place] [address] Care Team Providers Care Shellfish Checker Name Role Phone Mery Maxwell MD Primary Care Provider [phone] Encounter Details Date Type Department Care Team (Late st Contact Info) Description 01/08/2024 Scan [facility] [address] [place] [address] Scanned, Doc Pccl Social History Tobacco Use Types Packs/Day Years Used Date Smoking Tobacco: Former Cigarettes Smokeless Tobacco: Never Alcohol Use Standard Drinks/Week Comments Not Currently 0 (1 standard drink = 0.6 oz pur e alcohol) [facility] Utilities Answer Date Recorded In the past 12 months has e [employer], gas, oil, or water [employer] threatened to shut off services in your [...] money to buy more. Never true 01/01/20 Within the past 12 months, t he [...] time in the past 12 m [facility], were you homeless or living in a skilled nursing (including now)? No 01/01/2024 Sex and Gender Information Value Date Recorded Sex Assigned at Not on file Legal Sex Male 6:24 PM CDT Gender Identity Not on file Sexual Orientation Not on file documented as of this encounter Functional Status * Are you deaf or do you have serious difficulty hearing Answer Date of Assessment Author Status No 12/31/2023 10:19 PM CDT Kathy Jim RN Active * Are you [...] 10:19 PM Kathy Moffett RN Active * Because of a physical, [...] Moffett RN Active documented in this encounter Plan of Treatment Upcoming Encounters Date Type Department Care Team (Late st Contact Info) Description 07/20/2024 10:30 AM COORDINATOR OF PLACEMENT Office Visit [facility] [place] [phone] [place] [address] documented as of this encounter Goals Goal Patient Goal Type Associated Problems Recent Progress Patient-Stated? 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 RN documented as of this encounter Visit Diagnoses Not on filedocumented in this encounter Care Teams Shellfish Checker Relationship Specialty Start Date End Date Mery Maxwell MD [address] [place] [phone] PCP - General FAMILY PRACTICE 08/19/23 documented as of this encounter
--- OUTSIDE RECORDS SUMMARY | 2024-06-22 18:00 | XMS_ITS | Encounter Summary ---
Author Organization [facility] Address [address] [place] [address]. [place], [place] [id number] [place] [id number] Care Team Providers Care Court Officer Name Role Phone Mery Maxwell MD Primary Care Provider [phone] Reason for Referral * (Routine) - New Request Specialty Diagnoses / Procedures Referred By Flako t Referred To Contact Procedures OT Eval and Treat [facility] [address] [place] [address] Phone: tel: Referral ID Status Reason Start Date Expiration Date V isits Requested Visits Authorized [id number] New Request 02/26/2024 02/25/2025 1 1 * (Routine) - New Request Specialty Diagnoses / Procedures Referred By Contkalli t Referred To Contact Procedures PT Eval and Treat [facility] [address] [place] [address] Phone: tel: Referral ID Status Reason Start Date Expiration Date V isits Requested Visits Authorized [id number] New Request 02/26/2024 02/25/2025 1 1 Reason for Visit * Auth/Cert (Routine) Specialty Diagnoses / Procedures Referred By Contac t Referred To Contact Diagnoses Hypotension HYPOTENSION Procedures NONE Carmelita Celis MD [address] [place] [address] Phone: tel: fax: Referral ID Status Reason Start Date Expiration Date Visits Re quested Visits Authorized [id number] 1 1 Encounter Details Date Type Department Care Team (Latest Contact Info) Description 02/26/2024 5:26 AM CDT - 02/27/2024 2:57 PM CDT Hospital Encounter [facility] [address] [place] [address] Carmelita Celis MD [address] [place] [address] Raymond Higgins MD [address] [place], [place] [id number] Discharge Disposition: Home or Self Care (Routine Discharge) Social History Tobacco Use Types Packs/Day Years Used Date Smoking Tobacco: Former Cigarettes 1 15 Smokeless Tobacco: Never Alcohol Use Standard Drinks/Week Comments Not Currently 0 (1 standard drink = 0.6 oz pur e alcohol) [facility] Utilities Answer Date Recorded In the past 12 months has e electric, gas, oil, or water [employer] threatened to shut off services in your home? No 02/26/2024 Humiliation, Afraid, Rape, and Kick questionnair e Answer Date Recorded Within the last year, have y ou been afraid of your partner or ex-partner? No 02/26/2024 Within the last year, have y ou been humiliated or emotionally abused in other ways by your partner or ex-partner? No Within the last year, have y ou been kicked, hit, slapped, or otherwise physically hurt by your partner or ex-partner? No 02/26/2024 Within the last year, have y ou been raped or forced to have any kind of sexual activity by your partner or ex-partner? No 02/26/2024 Overall Financial Resource Strain (CARDIA) Answe r Date Recorded How hard is it for you to pa y for the very basics like food, housing, medical care, and heating? Not hard at all 02/26/2024 Hunger Vital Sign Answer Date Recorded Within the past 12 months, y ou worried that your food would run out before you got the money to buy more. Never true 02/26/20 Within the past 12 months, t he food you bought just didn't last and you didn't have money to get more. Never true 02/26/2024 PRAPARE - Transportation Answer Date Re corded In the past 12 months, has l ack of transportation kept you from medical appointments or from getting medications? No 02/13 In the past 12 months, has l ack of transportation kept you from meetings, work, or from getting things needed for daily living? No 02/26/2024 Housing Stability Vital Sign Answer Kelvin e [...] place to sleep or slept in a mcc (including now)? Patient declined 09/01/2023 Housing Stability Vital Sign Answer Kelvin e Recorded In the last 12 months, was t here a time when you were not able to pay the mortgage or rent on time? No 02/26/2024 In the past 12 months, how m any times have you moved where you were living? 0 02/26/2024 At any time in the past 12 m [facility], were you homeless or living in a mcc (including now)? No 02/26/2024 Sex and Gender Information Value Date Recorded Sex Assigned at Not on file Legal Sex Male 6:24 PM CDT Gender Identity Not on file Sexual Orientation Not on file documented as of this encounter Last Filed Vital Signs Vital Sign Reading Time Taken Comments Blood Pressure 125/67 02/27/2024 12:04 PM CDT Pulse 65 02/27/2024 12:04 PM CDT Temperature 36.4 ??C (97.5 ??F) 02/27/2024 1 2:04 PM CDT Respiratory Rate 18 02/27/2024 11:4 5 AM CDT Oxygen Saturation 100% 02/27/2024 12: 04 PM CDT Inhaled Oxygen Concentration - - Weight 120.4 kg (265 lb 6.9 oz) 02/27/2024 3:30 AM CDT Height 193 cm (6' 4 ) 02/26/2024 5:26 AM CDT Body Mass Index 32.31 02/26/2024 5:26 AM CDT documented in this encounter Functional Status * Question Answer Date of Assessment Author Status Do you have serious difficulty walking or climbing stairs? Yes 02/26/2024 5:00 AM Asya Hagen RN Activ e * Question Answer Date of Assessment Author Status Do you have difficulty dressing or bathing? No 02/26/2024 5:00 AM Asya Hagen RN A ctive Because of a physical, mental, or emotional condition, do you have difficulty doing errands alone such as visiting a doctor's office or shopping? No 02/26/2024 5:00 AM Asya Hagen RN Active * Are you deaf or do you have serious difficulty hearing Answer Date of Assessment Author Status No 02/26/2024 5:00 AM Asya Hagen RN Active * Are you blind or do you have serious difficulty seeing, even when wearing glasses? Answer Date of Assessment Author Status No 02/26/2024 5:00 AM Asya Hagen RN Active * Do you have serious difficulty walking or climbing stairs? Answer Date of Assessment Author Status Yes 02/26/2024 5:00 AM Asya Hagen RN Active * Do you have difficulty dressing or bathing? Answer Date of Assessment Author Status No 02/26/2024 5:00 AM Asya Hagen RN Active * Because of a physical, mental, or emotional condition, do you have difficulty doing errands alone such as visiting a doctor's office or shopping? Answer Date of Assessment Author Status No 02/26/2024 5:00 AM Asya Hagen RN Active documented as of this encounter Mental Status * Question Answer Entry Date Author Status Because of a physical, mental, or emotional condition, do you have serious difficulty concentrating, remembering, or making decisions? No 02/26/2024 5:00 AM Asya Hagen RN A ctive * Because of a physical, mental, or emotional condition, do you have serious difficulty concentrating, remembering, or making decisions? Answer Entry Date Author Status No 02/26/2024 5:00 AM CDT Asya Wallace RN Active documented in this encounter Discharge Summaries * Raymond Higgins MD - 02/27/2024 11:09 AM CDT Images from the original note were not included. [facility] [facility] Discharge Summary Patient ID: Aaron Campos [id number] 53-year-old 1970 Admit date: 02/26/2024 Expected Discharge Date: 02/27/2024 Primary care Physician: MERY MAXWELL MD Admitting Physician: Carmelita Celis MD Discharge Physician: RAYMOND HIGGINS MD Admission Diagnoses: Hypotension [I95.9] Discharge Diagnoses: hypotension Past Medical History Past Medical History: Diagnosis Date A-fib ([facility]HCC) Constipation Diabetes mellitus ([facility] H[facility]/HCC) ESRD (end stage renal disease) ([facility]) GERD (gastroesophageal reflux disease) Gout, unspecified High cholesterol Neuropathy 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[facility]) Renal disorder Brief Hospital Course: Aaron Campos is an 53-year-old male who got accepted as a direct admission to the IMC unit at [facility] from the ED of [facility] in [place] due to hypotension. The patient presented to the ED of [facility] in [place] (yesterday night) due to generalized weakness. The patient was brought into the ED via EMS from home. The patient states that he felt like his speech was slurred, and he experienced some shortness of breath. He also reports having generalized weakness. He also reports feeling lightheaded. The patient had dialysis yesterday. The patient has ESRD requiring HD and he received HD three times per week (Thursday, and Thursday). The patient reports that he usually gets dialysis on Thursday, and Thursday but he had dialsysi on Thursday, Thursday and this week due to volume overload. The patient reports that his dizziness is worsened when he sits up or stand up. The patient denies having cough. He also denies having chest pain. Problem Based course: Hypotension (Improved) - The patient received one bolus of 1000 mls of NS IV fluids as ordered by the ED physician. - The patient also received one dose of one unit of IV Vasopressin. - I started the patient on oral Midodrine - Close monitoring of blood pressure From extra dialysis. BP now stable off coreg and on midodrine. Will discharge home after HD Dizziness, most likely secondary to hypotension - Neurological exam shows no focal motor deficits - Head CT shows no evidence of intracranial hemorrhage - Fall precautions ESRD requiring HD - The patient received HD yesterday. He is due for HD tomorrow. - Will dialyze today before discharge Paroxysmal atrial fibrillation - Continue oral Amiodarone - Continue oral anticoagulation therapy with oral Eliquis - Monitor on telemetry Mixed hyperlipidemia - Continue Statin therapy with oral Atorvastatin. Type 2 diabetes mellitus with diabetic neuropathy, with long-term current use of insulin - Perform accuchecks AC plus HS - Continue SQ Insulin Lantus and SQ Insulin Lispro Gout - Continue oral Allopurinol GERD ADRYAN (obstructive sleep apnea) - Use CPAP while sleeping Obesity Body mass index is 31.72 kg/m??. DVT prophylaxis:Selena Thompson Consults: nephrology Procedures/Significant Diagnostic Studies: No orders to display Lab Results Component Value Date NA 134 (L) 02/27/2024 K 4.1 02/27/2024 CL 96 (L) 02/27/2024 CO2 23.8 02/27/2024 BUN 63 (H) 02/27/2024 CR 8.77 (H) 02/27/2024 CA 10.5 (H) 02/27/2024 GLU 229 (H) 02/27/2024 AGAP 14.2 (H) 02/27/2024 TP 7.9 02/27/2024 ALB 3.6 02/27/2024 AST 14 (L) 02/27/2024 ALT 15 (L) 02/27/2024 WBC 9.53 02/27/2024 HGB 12.0 02/27/2024 PLT 191 02/27/2024 HGBA1C 7.4 (H) 09/02/2023 TSH 1.940 01/01/2024 INR Date Value Ref Range Status 12/31/2023 1.7 (H) 0.8 - 1.0 Final Discharged Condition: good Code Status: Full Code Discharge Exam: Patient was seen and examined on day of discharge, vitals were stable. Physical exam: 1.Vital signs: as per medical chart. Blood pressure 116/63, pulse 70, temperature 98.2 ??F (36.8 ??C), temperature source Oral, resp. rate 17, height 1.93 m (6' 4 ), weight 118.2 kg (260 lb 9.3 oz), SpO2 98%. 2.General appearance: Alert awake oriented ??-3 3.HEENT: Normocephalic, extraocular muscle intact, pupils equal round reactive, no icterus, there is pallor, moist mucous membrane 4.Neck: Supple, no JVD, no carotid bruit 5.CVS: Regular rate and rhythm, no murmur gallop or rub 6.Respiratory: Respiratory effort is mildly labored. Lungs: Clear to auscultation bilaterally, no wheeze, no crackles 7.Abdomen: soft, nontender, nondistended, bowel sounds are positive 8.Neurologic: Cranial nerves are grossly intact, no focal motor deficits 9.Extremities: There is no clubbing, or cyanosis. There is mild bilateral leg edema 10.Musculoskeletal: No bony or joint abnormality, normal range of motion Disposition: discharged to home Patient Instructions: Current Discharge Medication List START taking these medications Details midodrine (PROAMATINE) 10 MG tablet Take 1 tablet (10 mg total) by mouth 3 (three) times daily withmeals for 30 days. Qty: 90 tablet, Refills: 0 CONTINUE these medications which have NOT CHANGED Details ELIQUIS 5 MG tablet Take 1 tablet (5 mg total) by mouth 2 (two) times daily. allopurinol (ZYLOPRIM) 100 MG tablet Take 1 tablet (100 mg total) by mouth 2 (two) times daily. amiodarone (PACERONE) 200 MG tablet Take 0.5 tablets (100 mg total) by mouth daily. Qty: 30 tablet, Refills: 11 atorvastatin (LIPITOR) 20 MG tablet Take 1 tablet (20 mg total) by mouth daily. gabapentin (NEURONTIN) 100 MG capsule Take 1 capsule (100 mg total) by mouth 2 (two) times a day. insulin lispro, 1 Unit Dial, (HUMALOG) 100 UNIT/ML injection (PEN) Inject 8 Units into the skin 3 (three) times daily before meals. LANTUS SOLOSTAR 100 UNIT/ML injection (PEN) Inject 10 Units into the skin nightly at bedtime. traMADol (ULTRAM) 50 MG tablet Indications: Acute Pain < 7 Day Supply 1-2 every 6 hours as needed for pain Qty: 20 tablet, Refills: 0 Associated Diagnoses: Left shoulder pain Wound Care: none needed Follow-up: No follow-up provider specified. Total time spent on discharge was 38 min spent on discharge Thank you for choosing [facility]. Please call [phone] if you have any questions or concerns. Signed: RAYMOND HIGGINS MD 02/27/2024 11:10 AM documented in this encounter Discharge Instructions * Attachments The following attachments cannot be sent through Care Everywhere. * Low Blood Pressure Discharge Instructions (Libyan) * Midodrine, ADULT (Libyan) * Checking your blood pressure at home (Libyan) documented in this encounter Medications at Time of Discharge allopurinol (ZYLOPRIM) 100 MG tablet Take 1 tablet (100 mg total) by mouth 2 (two) times daily. 08/03/2023 amiodarone (PACERONE) 200 MG tablet Take 0.5 tablets (100 mg total) by mouth daily. 30 tablet 11 02/03/2024 atorvastatin (LIPITOR) 20 MG tablet Take 1 tablet (20 mg total) by mouth daily. 08/03/2023 BD VEO INSULIN SYRINGE U/F 31G X 15/64 0.5 ML Misc 11/17/2023 ELIQUIS 5 MG tablet Take 1 tablet [...] to check glucose three times daily 02/01/2024 midodrine (PROAMATINE) 10 MG tablet Take 1 tablet (10 mg total) by mouth 3 (three) times daily with meals for 60 days. 90 tablet 1 02/27/2024 03/31/2024 documented as of this encounter Progress Notes * Pam Long RN - 02/27/2024 1:22 PM CDT Wheelchair transportation cost of $390 to be covered by Management. [place] transportation scheduled for 2:30pm. * Lauren Courtney RN - 02/27/2024 12:33 PM CDT Will D/C home * Shari Browning RN - 02/27/2024 12:03 PM CDT 02/27/24 1145 Post Treatment Note Post Treatment Note 3.5hrs dialysis treatment done, tolerated 1.5L uf removal. pt stable post treatment. avf with good thrill. endorsed to primary rn Vital Signs Temp 97.4 ??F (36.3 ??C) Temp src Temporal Pulse 62 Heart Rate Source Monitor Resp 18 BP (!) 150/87 MAP Calculated 108 MM HG BP Location Right arm BP Method Automatic Patient Position Lying Cuff size Adult Regular Post Treatment Weight Post-Treatment Weight (kg) 118.6 kg (261 lb 7.5 oz) Additonal Post Treatment Information Time Treatment Ended 1139 Dialyzer Cleared Good Blood Processed 81.8 Net UF removed 1500 Post Treatment Access AVF/AVG: Bleeding Stop Arterial 5 min AVF/AVG: Bleeding Stop Venous 5 min +Bruit Yes * Fei Christianson MD - 02/27/2024 10:05 AM CDT Nephrology Dialysis Note: Patient seen and examined on dialysis, stable on dialysis, UF as tolerated. * Raymond Higgins MD - 02/26/2024 12:19 PM CDT Pt seen and examined. BP better, but still dizzy, speech seems slow. CTH pending. Discussed MRI with pt, he's refusing. Says he will not do it. Will wait for CTH results. Nephro consulted for HD in am. Will need PT eval. * Nichol Carty, PT - 02/26/2024 11:31 AM CDTSummary: PT EVAL PT Initial Evaluation Discharge Recommendation: home with assistance No skilled P/T DME equipment recommendation: pt already owns manual wheelchair Activity Recommendation for agency operator: pt was up with modified independence during therapy session for stand pivot transfers which is his baseline, defer to nursing 02/26/24 1100 Therapy Visit Ordering Provider Dr. Kalyn MD PT Received On 02/26/24 Subjective RN ok'd therapy session. Pt received in bed and agreeable to therapy session. Reason for admission Pt is a 53 year old male who presented to [facility] from dialysis on 02/24 with SOB and lightheadedness after 3.4 kg removed; pt was discharged to home and then returned a short time later with slurred speech, SOB, generalized weakness, lightheadedness; SBP 80s-90s; pt was [facility] in the morning on 02/25 and admitted with hypotension, dizziness........PMH: a-fib on E liquis, DM2, ESRD on hemodialysis Tues/Thurs/Sat, GERD, gout, HLD, neuropathy, renal disorder, ADRYAN,obesity, former smoker........Orders: eval and treat........Activity: ok per RN. Verified Two Patient Identifiers Yes Patient consents to therapy Yes Acute Inpatient PT Time Calculation PT Start Time 1110 PT Stop Time 1130 PT Time Calculation (min) 20 min Precautions General Precautions Bed Alarm;Chair Alarm;Fall Risk Instructed on Precautions Yes;Verbalizes understanding Other IV access, telemetry Prior Function PLOF Comments Pt reports he lives alone in an apartment on the first level with ramp to enter with bilat rails; bathroom has walk in shower with shower chair with back and grab bar; toilet is standard height with grab bar; pt reports his sister is his caregiver 26 hours per week, comes over daily to assist with IADLs; pt reports he is independent with most ADLs, sister assists with shower for lower body washing; pt takes public transportation to dialysis or his sister takes him, orders groceries online; pt is independent with functional mobility including bed mobility, transfers in and out ofmanual wc and does short distance gait in bathroom holding onto door and sink and grab bars; independent with manual wc mobility in home and in community; falls x 1 this past year inJanuary; owns manual wc, 4ww, adjustable bed; sister can assist upon discharge, she may be able to provide 24/ assist. Pain Pain No Activity Tolerance Activity Tolerance Comments pt is at baseline activity tolerance Vision - Basic Assessment Current Vision Wears glasses all the time Vision - Complex Assessment Acuity Able to read clock/calendar on wall without difficulty;Able to read employee name badge without difficulty Additional Comments pt reports no change in vision since admit Cognition Overall Cognitive Status WFL Arousal/Alertness Appropriate responses to stimuli Attention Span Appears intact Memory Appears intact Orientation Level Oriented X4 Following Commands Follows one step commands consistently Safety Judgment Good awareness of safety precautions Awareness of Errors Good awareness of errors made Deficits Fully aware of deficits Problem Solving Able to problem solve independently Comments pt is self limiting and repeatedly states you are asking alot when asked to attempt tasks but pt cooperative with encouragement Motor Planning Appears intact Perseveration Not present Initiation Appears intact Sensation Additional Comments pt reports baseline neuropathy with numbness/tingling bilat feet constantly andinto legs to hips intermittently; pt reports some intermittent numbness/tingling in hands; pt able to feel light touch sensation RLE Assessment RLE Comment MMT: hip flex 4+/5, knee ext 5/5, ankle DF 5/5 LLE Assessment LLE Comment MMT: hip flex 4+/5, knee ext 5/5, ankle DF 5/5 Bed Mobility Supine to Sit Modified independence Other (Comment) with HOB elevated and use of bedrail to simulate home set up with adjustable bed TRANSFERS Sit to Stand Modified independence Bed to Chair Modified independence Other (Comment) pt stands from bed and chair and toilet, requires UE support; pt performs stand pivot transfers bed to recliner chair, recliner chair to and from toilet all with UE support and mod ind Gait Gait Assistance Modified independence;With gait belt Distance Ambulated (ft) 4 ft Other (Comment) pt able to amb 4 feet in bathroom from toilet to sink with UE support on grab bar/sink all to simulate home set up, with mod ind without difficulty; pt demonstrates adequate foot clearance bilat, no LOB Balance Sitting - Static Independent Sitting - Dynamic Independent Standing - Static Independent Standing - Dynamic Modified independence;Support of one upper extremity;Support of both upper extremities Other (Comment) no LOB during standing activity with 1-2 UE support to simulate home set up/baseline function Assessment Personal Factors/Comorbidities Impacting Care 3-4 personal factors/comorbidities Examination of Body Systems Low (1-2 Elements) Clinical Presentation of Patient Stable uncomplicated Complexity Level of Evaluation Low Prognosis Good PT Assess/Eval Other (Comment) Pt is a 53 year old male who was admitted with hypotension, dizziness. At baseline, pt was independent with ADLs, , bed mobility, transfers, wc mobility. Pt participates in therapy evaluation and demonstrates the ability to perform bed mobility, transfers, gait 4 feetwith UE support on grab bar/sink, all with modified independence/independence and good safety awareness. Pt appears to be close to baseline functional status and pt agrees. Pt does not demonstrate additional inpatient P/T needs at this time and therefore P/T will sign off. Anticipate pt will require assist for IADLs and shower as prior to admit upon discharge from this hospital. Patient/Family Training Other (Comment) educated pt regarding fall precautions, importance of ongoing mobility during hospitalization with staff, discharge rec; pt reports understanding Discharge Recommendation PT Recommendation Home with assistance;No skilled PT PT Equipment Recommended Currently has DME in Place (has and uses manual wc) No Skilled PT At baseline function Plan Progress Discontinue PT PT Frequency One time visit PT - Next Appointment 02/26/24 If this is the last treatment note,it will serve as the discharge summary Yes End of Session End of Session Safety Chair alarm set/activated;Call light within reach;Nursing aware of session;Transfer status education Interdisciplinary Collaboration OT and RN-functional status, discharge plan, position in chair End of Session Comment pt sitting in chair at bedside, needs within reach Education: Primary Learners Name: Aaron Campos Primary Language of learner: Libyan Patient was educated on precautions therapy plan safety. Education was completed one to one verbal this date. Preference of learning new concepts one to one verbal Barriers to education this date were Pt motivation. Response to education this date verbalized understanding demos adequately. * Cristiane Talavera, OT - 02/26/2024 11:30 AM CDTSummary: OT evaluation OT Initial Evaluation Discharge Recommendation: home with assistance DME equipment recommendation: Activity Recommendation for agency operator: up with 1 - pivot transfers 02/26/24 1115 Therapy Visit OT Received On 02/26/24 Reason for admission Pt is a 53 year old male who presented to [facility] from dialysis on 02/24 with SOB and lightheadedness after 3.4 kg removed; pt was discharged to home and then returned a short time later with slurred speech, SOB, generalized weakness, lightheadedness; SBP 80s-90s; pt was [facility] on 02/25 and admitted with hypotension, dizziness........PMH: a-fib on E liquis, DM2, ESRD on hemodialysis Tu//Sat, GERD, gout, HLD, neuropathy, renal disorder, ADRYAN,obesity, former smoker........Orders: eval and treat........Activity: ok per RN. Ordering Provider Dr. Kalyn MD Verified Two Patient Identifiers Yes Patient consents to therapy Yes Acute Inpatient OT Time Calculation OT Start Time 1110 OT Stop Time 1130 OT Time Calculation (min) 20 min Precautions General Precautions Bed Alarm;Chair Alarm;Fall Risk Instructed on Precautions Yes;Verbalizes understanding Other IV access, telemetry Subjective Subjective Pt supine in bed upon arrival and agreeable to evaluation Prior Function PLOF Comments Pt reports he lives alone in an apartment on the first level with ramp to enter with bilat rails; bathroom has walk in shower with shower chair with back and grab bar; toilet is standard height with grab bar; pt reports his sister is his caregiver 26 hours per week, comes over daily to assist with IADLs; pt reports he is independent with most ADLs, sister assists with shower for lower body washing; pt takes public transportation to dialysis or his sister takes him, orders groceries online; pt is independent with functional mobility including bed mobility, transfers in and out ofmanual wc and does short distance gait in bathroom holding onto door and sink and grab bars; independent with manual wc mobility in home and in community; falls x 1 this past year inJanuary; owns manual wc, 4ww, adjustable bed; sister can assist upon discharge, she may be able to provide 05/01 assist. Pain Pain No Activity Tolerance Activity Tolerance Comments Pt reports that he is at baseline Vision - Basic Assessment Current Vision Wears glasses all the time Vision - Complex Assessment Acuity Able to read clock/calendar on wall without difficulty;Able to read employee name badge without difficulty Additional Comments Pt reports no changes in vision since admit Cognition Overall Cognitive Status WFL Arousal/Alertness Appropriate responses to stimuli Attention Span Appears intact Memory Appears intact Orientation Level Oriented X4 Following Commands Follows one step commands consistently Safety Judgment Good awareness of safety precautions Awareness of Errors Good awareness of errors made Deficits Fully aware of deficits Problem Solving Able to problem solve independently Motor Planning Appears intact Perseveration Not present Initiation Appears intact Other (Comment) pt is self limiting and repeatedly states you're are asking alot repeatedly when asked to attempt tasks but pt cooperative with encouragement Overall Extremity Assessment Upper Extremity BUE AROM and strength WFLs Hand Function Gross Grasp Functional Coordination Functional Sensation Additional Comments pt reports baseline neuropathy with numbness/tingling bilat feet constantly andinto legs to hips intermittently; pt reports some intermittent numbness/tingling in hands; pt able to feel light touch sensation ADL Grooming Assistance Independent;Standing at sink Grooming Deficit Wash/dry hands LE Dressing Assistance Independent;Sitting at EOB LE Dressing Deficit Don/doff R sock;Don/doff L sock LE Dressing Comment with max encouragement to complete without assist and increased time Toileting Assistance Independent Bed Mobility Supine to Sit Modified independence (with HOB up and use of rail) Functional Transfers Sit to Stand Modified independence Toilet Transfers Modified Independent;Grab bars Functional Mobility Pt completed bed to chair and chair to commode transfers with mod I without AE holding arms of chair and then completed 4' walk in bathroom independently (baseline per pt) Balance Sitting - Static Independent Sitting - Dynamic Independent Standing - Static Independent Standing - Dynamic Modified independence Assessment Occupational Profile and History Complexity Moderate (Expanded) Performance Deficit Level Low (1-3 deficits) Clinical Decision Making Low (no modifications) Complexity Level of Evaluation Low Prognosis Good OT Assess/Eval Other (Comment) Pt currently demonstrates baseline level of independence with self care and mobility. Therapy will sign off at this time as he has no further acute care OT needs. Discharge Recommendation OT Recommendation Home with assistance;No skilled OT OT Equipment Recommended Currently has DME in Place No Skilled OT At baseline function Plan Progress Discontinue OT OT - Next Appointment 02/26/24 If this is the last treatment note, it will serve as the discharge summary Yes End of Session End of Session Safety Call light within reach;Chair alarm set/activated;Nursing aware of session Education: Primary Learners Name: Aaron Campos Primary Language of learner: Libyan Patient was educated on transfers ADLs balance bed mobility therapy plan safety. Education was completed one to one verbal hands-on this date. Preference of learning new concepts one to one verbal hands-on Barriers to education this date were none. Response to education this date demos adequately. * Cindy Lopez RN - 02/26/2024 9:34 AM CDT 02/26/24 0934 Interdisciplinary Group Conference Team Members Present Physician;Case/Care management Physician present for group conference Dr. Higgins Barriers to Discharge Barriers Other (Comment) Other follow up (Comment) ESRD, b/p low, ct head pending documented in this encounter H&P Notes * Carmelita Celis MD - 02/26/2024 5:32 AM CDT Images from the original note were not included. [facility] Hospitalist H&P Note Attending Provider: Carmelita Celis MD PCP: MERY MAXWELL MD Reason for Admission: Hypotension Assessment/Plan: Hypotension (Improved) - The patient received one bolus of 1000 mls of NS IV fluids as ordered by the ED physician. - The patient also received one dose of one unit of IV Vasopressin. - I started the patient on oral Midodrine - Close monitoring of blood pressure Dizziness, most likely secondary to hypotension - Neurological exam shows no focal motor deficits - Head CT shows no evidence of intracranial hemorrhage - Fall precautions ESRD requiring HD - The patient received HD yesterday. He is due for HD tomorrow. - Consider obtaining a nephrology consult if the patient stays at [facility] tomorrow Paroxysmal atrial fibrillation - Continue oral Amiodarone - Continue oral anticoagulation therapy with oral Eliquis - Monitor on telemetry Mixed hyperlipidemia - Continue Statin therapy with oral Atorvastatin. Type 2 diabetes mellitus with diabetic neuropathy, with long-term current use of insulin - Perform accuchecks AC plus HS - Continue SQ Insulin Lantus and SQ Insulin Lispro Gout - Continue oral Allopurinol GERD ADRYAN (obstructive sleep apnea) - Use CPAP while sleeping Obesity Body mass index is 31.72 kg/m??. DVT prophylaxis:Selena Thompson Code status: Full Code Disposition/Discharge plan: Home / After 1-2 days CARMELITA CELIS MD 02/26/2024 HPI: Aaron Campos is an 53-year-old male who got accepted as a direct admission to the IMC unit at [facility] from the ED of [facility] in [place] due to hypotension. The patient presented to the ED of [facility] in [place] (yesterday night) due to generalized weakness. The patient was brought into the ED via EMS from home. The patient states that he felt like his speech was slurred, and he experienced some shortness of breath. He also reports having generalized weakness. He also reports feeling lightheaded. The patient had dialysis yesterday. The patient has ESRD requiring HD and he received HD three times per week (Thursday, and Thursday). The patient reports that he usually gets dialysis on Thursday, and Thursday but he had dialsysi on Thursday, Thursday and this week due to volume overload. The patient reports that his dizziness is worsened when he sits up or stand up. The patient denies having cough. He also denies having chest pain. Review of System: 1. Constitutional: No fever, no chills, positive for fatigue 2. HEENT: No vision changes, no ear pain, no runny nose, no sore throat 3. Skin: No rash, no lesion, no itching 4. CVS: No chest pain, no palpitations, positive for mild shortness of breath 5. Respiratory: Positive for mild shortness of breath, no cough, no sputum production 6. GI: No nausea, no vomiting, no diarrhea, no abdominal pain 7. : No dysuria, no urgency, no hematuria 8. Neurological: No headache, positive for dizziness 9. Musculoskeletal: No back pain, no joint pain, no stiffness 10. Endocrinological: No polyuria, no polydipsia 11. Psychiatric: No depression or anxiety 12. Hematologic: No hematuria, no rectal bleeding Physical exam: 1. Vital signs: as per medical chart. Blood pressure 116/63, pulse 70, temperature 98.2 ??F (36.8 ??C), temperature source Oral, resp. rate 17, height 1.93 m (6' 4 ), weight 118.2 kg (260 lb 9.3 oz), SpO2 98%. 2. General appearance: Alert awake oriented ??-3 3. HEENT: Normocephalic, extraocular muscle intact, pupils equal round reactive, no icterus, there is pallor, moist mucous membrane 4. Neck: Supple, no JVD, no carotid bruit 5. CVS: Regular rate and rhythm, no murmur gallop or rub 6. Respiratory: Respiratory effort is mildly labored. Lungs: Clear to auscultation bilaterally, no wheeze, no crackles 7. Abdomen: soft, nontender, nondistended, bowel sounds are positive 8. Neurologic: Cranial nerves are grossly intact, no focal motor deficits 9. Extremities: There is no clubbing, or cyanosis. There is mild bilateral leg edema 10. Musculoskeletal: No bony or joint abnormality, normal range of motion Past Medical History: Diagnosis Date A-fib ([facility]) Constipation Diabetes mellitus ([facility]/HCC) ESRD (end stage renal disease) ([facility]) GERD (gastroesophageal reflux disease) Gout, unspecified High cholesterol Neuropathy 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[facility]) Renal disorder Social History Tobacco Use Smoking status: Former Current packs/day: 1.00 Average packs/day: 1 pack/day for 15.0 years (15.0 ttl pk-yrs) Types: Cigarettes Smokeless tobacco: Never Substance Use Topics Alcohol use: Not Currently Past Surgical History: Procedure Laterality Date FISTULA CANNULATION SET, EA TONSILLECTOMY Family History Problem Relation Name Age of Onset Diabetes Mother Hypertension Mother Hypertension Father Diabetes Father Alzheimer's disease Father Diabetes Sister Home Medications: No current facility-administered medications on file prior to encounter. Current Outpatient Medications on File Prior to Encounter Medication Sig allopurinol (ZYLOPRIM) 100 MG tablet Take 1 tablet (100 mg total) by mouth 2 (two) times daily. amiodarone (PACERONE) 200 MG tablet Take 0.5 tablets (100 mg total) by mouth daily. atorvastatin (LIPITOR) 20 MG tablet Take 1 tablet (20 mg total) by mouth daily. calcitriol (ROCALTROL) 0.25 MCG capsule Take 1 capsule (0.25 mcg total) by mouth every other day. T-TH-THU carvedilol (COREG) 25 MG tablet Take 1 tablet (25 mg total) by mouth 2 (two) times daily. ELIQUIS 5 MG tablet Take 1 [...] Units into the skin nightly at bedtime. pantoprazole EC (PROTONIX) 40 MG tablet Take 1 tablet (40 mg total) by mouth daily. traMADol (ULTRAM) 50 MG tablet Indications: Acute Pain < 7 Day Supply 1-2 every 6 hours as needed for pain Allergies: Allergies Allergen Reactions Amoxicillin Hives Laboratory data and imaging: Results for orders placed or performed during the hospital encounter of 02/25/24 LACTIC ACID W REFLEX (SEPSIS) Result Value Ref Range LACTIC ACID VENOUS 1.6 0.4 - 2.0 MMOL/L No results for input(s): TROP , TROPIWB in the last 168 hours. No results found for this visit on 02/26/24. No orders to display documented in this encounter Consult Notes * Fei Christianson MD - 02/26/2024 5:07 PM CDT Nephrology Brief Note Patient seen and examined. Full consult note per PGY-3. Pt is known to me, recent volume overload d/t noncompliant with fluid restriction, had extra day dialysis for UF this week, now admitted with hypotension post HD yesterday, had 1 L NS bolus. Would agree with stopping coreg, starting midrodine, will plan HD tomorrow. FEI CHRISTIANSON MD 02/26/2024 * Vicente Jaimes MD - 02/26/2024 2:39 PM CDTSummary: [facility] Consult Note Assessment and Plan: Aaron Campos is a 53-year-old male with history of ESRD on HD ([facility]), paroxysmal atrial fibrillation, HLD, gout, GERD, ADRYAN who is admitted to [facility] due to symptomatic hypotension following his dialysis session yesterday. [facility] consulted for dialysis. ESRD on HD ([facility]) Hypotension Dizziness 2/2 above Anemia of chronic disease -Access: LUE AVF. -Follows with [facility], Dr. Christianson. Receives dialysis at [facility]. -Last session was 02/24 with 3.5 L UF removed. Noted to be hypotensive during the end of dialysis. Also had a extra session on 02/23 for volume removal. -Given 1 L NS, 1x vasopressin and 20 mg midodrine on admission to [facility]. BP continues to be soft. -CTH negatvie [facility] Recommendations: -Plan for dialysis tomorrow per home schedule with UF as tolerated. -Started on midodrine 10 mg TID. -Recommend renal diet. -Avoid nephrotoxic medications. Renally dose medications. -Repeat BMP tomorrow AM. Thank you for the consultation. 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 HPI: Aaron Campos is a 53-year-old male with history of ESRD on HD ([facility]), paroxysmal atrial fibrillation, HLD, gout, GERD, ADRYAN who is admitted to [facility] due to symptomatic hypotension following his dialysis session yesterday. [facility] consulted for dialysis. Patient seen and examined at bedside. He reports that his BP was low at the end of dialysis yesterday and he felt dizzy, lightheaded, fatigued, blurred vision, shortness of breath. He reports dizziness on standing for a while now. Last session was 02/24 with 3.5 L UF removed. Also had a extra session on 02/23 for volume removal. Denies fevers or chills, chest palpitations. Review of Systems: Negative except for what is stated above. 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[facility]) Renal disorder Past Surgical History: Past Surgical History: Procedure Laterality Date FISTULA CANNULATION SET, EA TONSILLECTOMY Social Hx: Social History Socioeconomic History Marital status: Spouse name: Not on file Number of children: Not on file Years of education: Not on file Highest education level: Not on file Occupational History Not on file Tobacco Use Smoking status: Former Current packs/day: 1.00 Average packs/day: 1 pack/day for 15.0 years (15.0 ttl pk-yrs) Types: Cigarettes Smokeless tobacco: Never Vaping Use Vaping status: Never Used Substance and Sexual Activity Alcohol use: Not Currently Drug use: Not Currently Sexual activity: Not Currently Other Topics Concern Not on file Social History Narrative Not on file Social Determinants of Health Financial Resource Strain: Low Risk (02/26/2024) Overall Financial Resource Strain (CARDIA) Difficulty of Paying Living Expenses: Not hard at all Food Insecurity: No Food Insecurity (02/26/2024) Hunger Vital Sign Worried About Running Out of Food in the Last Year: Never true Ran Out of Food in the Last Year: Never true Transportation Needs: No Transportation Needs (02/26/2024) PRAPARE - Transportation Lack of Transportation (Medical): No Lack of Transportation (Non-Medical): No Physical Activity: Not on file Stress: Not on file Social Connections: Feeling Socially Integrated (06/14/2023) Received from [facility] OASIS D0700: Social Isolation Frequency of experiencing loneliness or isolation: Rarely Intimate Partner Violence: Not At Risk (02/26/2024) Humiliation, Afraid, Rape, and Kick questionnaire Fear of Current or Ex-Partner: No Emotionally Abused: No Physically Abused: No Sexually Abused: No Housing Stability: Low Risk (02/26/2024) Housing Stability Vital Sign Unable to Pay for Housing in the Last Year: No Number of Times Moved in the Last Year: 0 Homeless in the Last Year: No Family History: Family History Problem Relation Name Age of Onset Diabetes Mother Hypertension Mother Hypertension Father Diabetes Father Alzheimer's disease Father Diabetes Sister Physical Exam: Vitals: 02/26/24 1302 BP: 93/51 Pulse: Resp: Temp: SpO2: General: Alert, oriented, no acute distress. Head: Normocephalic, atraumatic. CV: Normal rate, Regular rhythm, No LE edema. Resp: Lungs are clear to auscultation, respirations are non-labored Abd: Soft, non-tender, non-distended. Neuro: Alert, oriented, no facial asymmetry. Psych: Appropriate mood and affect. Labs: Recent Labs 02/25/24 1622 02/26/24 0617 02/26/24 1230 WBC 8.26 9.71 -- HGB 12.8* 11.9* -- PLT 202 189 -- GLU 204* 306* -- BUN 31* 42* -- CR 4.88* 6.78* -- NA 136 131* -- K 3.7 3.8 -- CL 95* 96* -- CO2 29.6 25.8 -- ALT 16 17 -- AST 12* 12* -- TROP -- 12 11 I/O: Intake/Output Summary (Last 24 hours) at 02/26/2024 1439 Last data filed at 02/26/2024 0727 Gross per 24 hour Intake 100 ml Output -- Net 100 ml Current Medications: Current Facility-Administered Medications: acetaminophen (TYLENOL) tablet 650 mg, 650 mg, Oral, Q4H PRN, Carmelita Celis MD allopurinol (ZYLOPRIM) tablet 100 mg, 100 mg, Oral, BID, Carmelita Celis MD, 100 mg at 02/26/24 0826 amiodarone (PACERONE) tablet 100 mg, 100 mg, Oral, Daily, Carmelita Celis MD, 100 mg at 02/26/2424 apixaban (ELIQUIS) tablet 5 mg, 5 mg, Oral, BID, Carmelita Celis MD, 5 mg at 02/26/24 08 atorvastatin (LIPITOR) tablet 20 mg, 20 mg, Oral, Q24H, Carmelita Celis MD, 20 mg at 02/26/24 0634 docusate sodium (COLACE) capsule 100 mg, 100 mg, Oral, BID, Carmelita Celis MD, 100 mg at 02/26/24 08 gabapentin (NEURONTIN) capsule 100 mg, 100 mg, Oral, BID, Carmelita Celis MD, 100 mg at 02/26/24 0824 insulin glargine (LANTUS) injection 10 Units, 10 Units, Subcutaneous, Nightly at bedtime, Carmelita Celis MD insulin lispro (HUMALOG/ADMELOG) injection 8 Units, 8 Units, Subcutaneous, TID AC, Carmelita Celis MD, 8 Units at 02/26/24 1155 midodrine (PROAMATINE) tablet 10 mg, 10 mg, Oral, TID WC, Raymond Higgins MD, 10 mg at 02/26/24 1155 ondansetron (ZOFRAN) injection 4 mg, 4 mg, Intravenous, Q6H PRN, Carmelita Celis MD Senna (SENOKOT) 8.6 MG tablet 8.6 mg, 8.6 mg, Oral, Daily PRN, Carmelita Celis MD Prior to Admission medications Medication Sig Start Date End Date Taking? Authorizing Provider ELIQUIS 5 MG tablet Take 1 tablet (5 mg total) by mouth 2 (two) times daily. 08/03/23 Yes Default History Genericprovider allopurinol (ZYLOPRIM) 100 MG tablet Take 1 tablet (100 mg total) by mouth 2 (two) times daily. 08/03/23 Default History Genericprovider amiodarone (PACERONE) 200 MG tablet Take 0.5 tablets (100 mg total) by mouth daily. 02/03/24 Martha Lynn, ANP-BC atorvastatin (LIPITOR) 20 MG tablet Take 1 tablet (20 mg total) by mouth daily. 08/03/23 Default History Genericprovider gabapentin (NEURONTIN) [...] nightly at bedtime. 08/03/23 Default History Genericprovider traMADol (ULTRAM) 50 MG tablet Indications: Acute Pain < 7 Day Supply 1-2 every 6 hours as needed for pain 08/19/23 Aaron Mosher MD Cosigned by Fei Christianson MD at 02/26/2024 5:11 PM CDT Associated attestation - Fei Christianson MD - 02/26/2024 5:11 PM CDT Teaching Physician - I, FEI CHRISTIANSON MD, performed a History and Physical examination of the patient and discussed the management with the resident. I reviewed the Resident's note and agree with the findings and plan of care, except as I have documented. documented in this encounter Nursing Notes * Lauren Courtney RN - 02/27/2024 2:57 PM CDT Pts [facility] were called in to [facility], they closed at 1200. So the scripts were recalled to [facility] but they can not fill them because they were already filled. Sending pt with 4 pills with instruction to take only if blood pressure is less than BP 110. Dr Higgins, Natalya CM and Jessenia HOPE made aware documented in this encounter Plan of Treatment Upcoming Encounters Date Type Department Care Team (Late st Contact Info) Description 07/20/2024 10:30 AM AOC [facility]ADC OPERATIONS STAFF OFFICER Office Visit [facility]-[address] [place] [phone] Martha Ramirez, [employer] [facility] [employer] [facility] [facility]- [address] [place] [address] documented as of this encounter Goals Goal Patient Goal Type Associated Problems Recent Progress Patient-Stated? 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, RN documented as of this encounter Procedures Procedure Name Priority Date/Time Associated Diagnosis Comments POCT GLUCOSE - PERES DOCKED DEVICE Routine 02/27/2024 12:03 PM CDT POCT GLUCOSE - PERES DOCKED DEVICE Routine 02/27/2024 6:10 AM CDT COMPREHENSIVE METABOLIC PANEL Routine 02/27/2024 1:08 AM CDT CBC W/DIFF AUTOMATED Routine 02/27/2024 1:08 AM CDT MAGNESIUM Routine 02/27/2024 1:08 AM CDT POCT GLUCOSE - PERES DOCKED DEVICE Routine 02/26/2024 8:22 PM CDT TROPONIN, QUANT TIMED 02/26/2024 5:48 PM CDT POCT GLUCOSE - PERES DOCKED DEVICE Routine 02/26/2024 4:44 PM CDT TROPONIN, QUANT TIMED 02/26/2024 12:30 PM CDT POCT GLUCOSE - PERES DOCKED DEVICE Routine 02/26/2024 11:14 AM CDT COMPREHENSIVE METABOLIC PANEL Routine 02/26/2024 6:17 AM CDT CBC W/DIFF AUTOMATED Routine 02/26/2024 6:17 AM CDT TROPONIN, QUANT TIMED 02/26/2024 6:17 AM CDT MAGNESIUM Routine 02/26/2024 6:17 AM CDT POCT GLUCOSE - PERES DOCKED DEVICE Routine 02/26/2024 5:44 AM CDT documented in this encounter Results * (ABNORMAL) POCT glucose (02/27/2024 12:03 PM CDT) GLUCOSE POC 158(H) 70 - 109 02/27/2024 12:37 PM CDT [facility] 02/27/2024 12:0 3 PM CDT us Raymond Higgins MD POCT ORDERABLES - DEVICE Final R esult Performing Organization Address City/[facility]/ZIP Co de Phone Number [facility] [address] [place] [address], [place] [phone] [id number] * (ABNORMAL) POCT glucose (02/27/2024 6:10 AM CDT) GLUCOSE POC 220(H) 70 - 109 02/27/2024 6:19 AM CDT [facility] 02/27/2024 6:10 AM CDT us Raymond Higgins MD POCT ORDERABLES - DEVICE Final R esult Performing Organization Address City/[facility]/ZIP Co de Phone Number [facility] [address] [place] [address], [id number] * MAGNESIUM (02/27/2024 1:08 AM CDT) MAGNESIUM 2.3 1.6 - 2.6 MG/DL 02/27/2024 3:13 AM CDT [facility] 02/27/2024 1:08 AM CDT us Carmelita Celis MD LABORATORY Final Result [facility] [address] [place] [address], [id number] * (ABNORMAL) COMPREHENSIVE METABOLIC PANEL (02/27/2024 1:08 AM CDT) Pathologist [facility] SODIUM S/P/B 134(L) 136 - 145 MMOL/L 02/27/2024 3:13 AM CDT [facility] POTASSIUM S/P/B 4.1 3.5 - 5.1 MMOL/L 02/27/2024 3:13 AM CDT [facility] CHLORIDE S/P/B 96(L) 97 - 115 MMOL/L 02/27/2024 3:13 AM CDT [facility] CO2 23.8 21.0 - 32.0 MMOL/L 02/27/2024 3:13 AM CDT [facility] GLUCOSE 229(H) 74 - 106 MG/DL 02/27/2024 3:13 AM CDT [facility] BUN 63(H) 7 - 18 MG/DL 02/27/2024 3:13 AM CDT [facility] CREATININE S/P/B 8.77(H) 0.70 - 1.30 MG/DL 02/27/2024 3:13 AM CDT [facility] CALCIUM S/P/B 10.5(H) 8.5 - 10.1 MG/DL 02/27/2024 3:13 AM CDT [facility] BILIRUBIN TOTAL S/P/B 0.4 0.2 - 1.0 MG/DL 02/27/2024 3:13 AM CDT [facility] ALKALINE PHOSPHATASE S/P/B 53 45 - 115 U/L 02/27/2024 3:13 AM CDT [facility] AST 14(L) 15 - 37 U/L 02/27/2024 3:13 AM CDT [facility] ALT 15(L) 16 - 61 U/L 02/27/2024 3:13 AM CDT [facility] TOTAL PROTEIN S/P/B 7.9 6.4 - 8.2 G/DL 02/27/2024 3:13 AM CDT [facility] ALBUMIN S/P/B 3.6 3.4 - 5.0 G/DL 02/27/2024 3:13 AM CDT [facility] ANION GAP 14.2(H) 2.0 - 10.0 MMOL/L 02/27/2024 3:13 AM CDT [facility] OSMOLALITY (CALC) 303 MOSM/KG 024 3:13 AM T [facility] Comment:REFERENCE RANGE NOT ESTABLISHED GFR ESTIMATE 7(L) >90 ML/MIN/1. 73 M2 02/27/2024 3:13 AM CDT [facility] GFR NOTES GFR REFERENCE S: 02/27/2024 3:13 AM CDT [facility] Comment: THE ESTIMATED GFR IS [...] ml/min/1.73 m2 G5,KIDNEY FAILURE: <15 ml/min/1.73 m2 02/27/2024 1:08 AM CDT us Carmelita Celis MD LABORATORY Final Result [facility] [address] [place] [address], [id number] * (ABNORMAL) CBC W/DIFF AUTOMATED (02/27/2024 1:08 AM CDT) [facility] WBC 9.53 4.00 - 10.80 x10'3/uL 02/27/2024 1:28 AM CDT [facility] RBC 3.66(L) 4.50 - 6.10 x10'6/uL 02/27/2024 1:28 AM CDT [facility] HGB 12.0 12.0 - 16.0 G/DL 02/27/2024 1:28 AM CDT [facility] HCT 37.2 37.0 - 52.0 % 02/27/2024 1:28 AM CDT [facility] MCV 101.6(H) 78.0 - 100.0 FL 02/27/2024 1:28 AM CDT [facility] MCH 32.8(H) 27.0 - 31.0 PG 02/27/2024 1:28 AM CDT [facility] MCHC 32.3(L) 33.0 - 36.0 G/DL 02/27/2024 1:28 AM CDT [facility] RDW 13.2 11.5 - 14.5 % 02/27/2024 1:28 AM CDT [facility] PLT 191 150 - 350 x10'3/uL 02/27/2024 1:28 AM CDT [facility] MPV 10.4 7.4 - 10.4 FL 02/27/2024 1:28 AM CDT [facility] DIFFERENTIAL TYPE AUTOMATED DIFFERENTIAL 02/27/2024 1:28 AM CDT [facility] SEG NEUTROPHILS 58.3 % 1:28 AM CDT [facility] LYMPHOCYTES 27.5 % 02/27/2024 1:28 AM CDT [facility] MONOCYTES 8.6 % 02/27/2024 1:28 AM CDT [facility] EOSINOPHILS 3.4 % 02/27/2024 1:28 AM CDT [facility] BASOPHILS 0.9 % 02/27/2024 1:28 AM CDT [facility] IMMATURE GRANS % 1.3 % 02/27/20 1:28 AM CDT [facility] ABS. NEUTROPHILS 5.56 1.60 - 8.30 x10'3/uL 02/27/2024 1:28 AM CDT [facility] ABS. LYMPHOCYTES 2.62 0.80 - 4.70 x10'3/uL 02/27/2024 1:28 AM CDT [facility] ABS. MONOCYTES 0.82 0.00 - 1.50 x10'3/uL 02/27/2024 1:28 AM CDT [facility] ABS. EOSINOPHILS 0.32 0.00 - 0.40 x10'3/uL 02/27/2024 1:28 AM CDT [facility] ABS. BASOPHILS 0.09 0.00 - 0.20 x10'3/uL 02/27/2024 1:28 AM CDT [facility] ABS. IMMATURE GRANULOCYTES 0.12(H) 0.00 - 0.03 x10'3/uL 02/27/2024 1:28 AM CDT [facility] ABS. NUCLEATED RBC'S 0.00 0.00 - 0.01 x10'3/uL 02/27/2024 1:28 AM CDT [facility] NRBC % 0.0 % 02/27/2024 1:28 AM CDT [facility] 02/27/2024 1:08 AM CDT us Carmelita Celis MD LABORATORY Final Result [facility] [address] [place] [address], [id number] * (ABNORMAL) POCT glucose (02/26/2024 8:22 PM CDT) GLUCOSE POC 189(H) 70 - 109 02/26/2024 8:33 PM CDT [facility] 02/26/2024 8:22 PM CDT Raymond Higgins MD POCT ORDERABLES - DEVICE Final R esult Performing Organization Address City/[facility]/ZIP Co de Phone Number [facility] [address] [place] [address], [place] [phone] * TROPONIN, QUANT (02/26/2024 5:48 PM CDT) [facility] TROPONIN I HIGH SENSITIVITY 12 0 - 78 ng/L 02/26/2024 7:24 PM CDT [facility] 02/26/2024 5:48 PM CDT Carmelita Celis MD LABORATORY Final Result Performing Organization Address [facility] Co de Phone Number [facility] [address] [place] [address], [place] [phone] * (ABNORMAL) POCT glucose (02/26/2024 4:44 PM CDT) GLUCOSE POC 224(H) 70 - 109 02/26/2024 4:46 PM CDT [facility] 02/26/2024 4:44 PM CDT Raymond Higgins MD POCT ORDERABLES - DEVICE Final R esult Performing Organization Address [facility] Co de Phone Number [facility] [address] [place] [address], [place] [phone] * TROPONIN, QUANT (02/26/2024 12:30 PM CDT) Pathologist [facility] TROPONIN I HIGH SENSITIVITY 11 0 - 78 ng/L 02/26/2024 1:04 PM CDT [facility] 02/26/2024 12:3 0 PM CDT Carmelita Celis MD LABORATORY Final Result Performing Organization Address [facility] Co de Phone Number [facility] [address] [place] [address], [id number] * (ABNORMAL) POCT glucose (02/26/2024 11:14 AM CDT) [facility] GLUCOSE POC 228(H) 70 - 109 02/26/2024 11:35 AM CDT [facility] 02/26/2024 11:1 4 AM CDT Raymond Higgins MD POCT ORDERABLES - DEVICE Final R esult Performing Organization Address [facility] Co de Phone Number [facility] [address] [place] [address], [id number] * TROPONIN, QUANT (02/26/2024 6:17 AM CDT) [facility] TROPONIN I HIGH SENSITIVITY 12 0 - 78 ng/L 02/26/2024 7:04 AM CDT [facility] 02/26/2024 6:17 AM CDT Carmelita Celis MD LABORATORY Final Result Performing Organization Address [facility] Co de Phone Number [facility] [address] [place] [address], [id number] * MAGNESIUM (02/26/2024 6:17 AM CDT) Pathologist [facility] MAGNESIUM 2.2 1.6 - 2.6 MG/DL 02/26/2024 7:04 AM CDT [facility] 02/26/2024 6:17 AM CDT Carmelita Celis MD LABORATORY Final Result [facility] [address] [place] [address], [id number] * (ABNORMAL) COMPREHENSIVE METABOLIC PANEL (02/26/2024 6:17 AM CDT) SODIUM S/P/B 131(L) 136 - 145 MMOL/L 02/26/2024 7:04 AM CDT [facility] POTASSIUM S/P/B 3.8 3.5 - 5.1 MMOL/L 02/26/2024 7:04 AM CDT [facility] CHLORIDE S/P/B 96(L) 97 - 115 MMOL/L 02/26/2024 7:04 AM CDT [facility] CO2 25.8 21.0 - 32.0 MMOL/L 02/26/2024 7:04 AM CDT [facility] GLUCOSE 306(H) 74 - 106 MG/DL 02/26/2024 7:04 AM CDT [facility] BUN 42(H) 7 - 18 MG/DL 02/26/2024 7:04 AM CDT [facility] CREATININE S/P/B 6.78(H) 0.70 - 1.30 MG/DL 02/26/2024 7:04 AM CDT [facility] CALCIUM S/P/B 9.7 8.5 - 10.1 MG/DL 02/26/2024 7:04 AM CDT [facility] BILIRUBIN TOTAL S/P/B 0.5 0.2 - 1.0 MG/DL 02/26/2024 7:04 AM CDT [facility] ALKALINE PHOSPHATASE S/P/B 56 45 - 115 U/L 02/26/2024 7:04 AM CDT [facility] AST 12(L) 15 - 37 U/L 02/26/2024 7:04 AM CDT [facility] ALT 17 16 - 61 U/L 02/26/2024 7:04 AM CDT [facility] TOTAL PROTEIN S/P/B 8.3(H) 6.4 - 8.2 G/DL 02/26/2024 7:04 AM CDT [facility] ALBUMIN S/P/B 3.6 3.4 - 5.0 G/DL 02/26/2024 7:04 AM CDT [facility] ANION GAP 9.2 2.0 - 10.0 MMOL/L 02/26/2024 7:04 AM CDT [facility] OSMOLALITY (CALC) 294 MOSM/KG 024 7:04 AM T [facility] Comment:REFERENCE RANGE NOT ESTABLISHED GFR ESTIMATE 9(L) >90 ML/MIN/1. 73 M2 02/26/2024 7:04 AM CDT [facility] GFR NOTES GFR REFERENCE S: 02/26/2024 7:04 AM T [facility] Comment: THE ESTIMATED GFR IS [...] ml/min/1.73 m2 G5,KIDNEY FAILURE: <15 ml/min/1.73 m2 02/26/2024 6:17 AM CDT Carmelita Celis MD LABORATORY Final Result [facility] [address] [place] [address], [place] [phone] * (ABNORMAL) CBC W/DIFF AUTOMATED (02/26/2024 6:17 AM CDT) [facility] WBC 9.71 4.00 - 10.80 x10'3/uL 02/26/2024 6:29 AM CDT [facility] RBC 3.65(L) 4.50 - 6.10 x10'6/uL 02/26/2024 6:29 AM CDT [facility] HGB 11.9(L) 12.0 - 16.0 G/DL 02/26/2024 6:29 AM CDT [facility] HCT 36.3(L) 37.0 - 52.0 % 02/26/2024 6:29 AM CDT [facility] MCV 99.5 78.0 - 100.0 FL 02/26/2024 6:29 AM CDT [facility] MCH 32.6(H) 27.0 - 31.0 PG 02/26/2024 6:29 AM CDT [facility] MCHC 32.8(L) 33.0 - 36.0 G/DL 02/26/2024 6:29 AM CDT [facility] RDW 13.2 11.5 - 14.5 % 02/26/2024 6:29 AM CDT [facility] PLT 189 150 - 350 x10'3/uL 02/26/2024 6:29 AM CDT [facility] MPV 10.2 7.4 - 10.4 FL 02/26/2024 6:29 AM CDT [facility] DIFFERENTIAL TYPE AUTOMATED DIFFERENTIAL 02/26/2024 6:29 AM CDT [facility] SEG NEUTROPHILS 62.4 % 6:29 AM CDT [facility] LYMPHOCYTES 26.7 % 02/26/2024 6:29 AM CDT [facility] MONOCYTES 6.9 % 02/26/2024 6:29 AM CDT [facility] EOSINOPHILS 2.0 % 02/26/2024 6:29 AM CDT [facility] BASOPHILS 0.9 % 02/26/2024 6:29 AM CDT [facility] IMMATURE GRANS % 1.1 % 02/26/20 6:29 AM CDT [facility] ABS. NEUTROPHILS 6.06 1.60 - 8.30 x10'3/uL 02/26/2024 6:29 AM CDT [facility] ABS. LYMPHOCYTES 2.59 0.80 - 4.70 x10'3/uL 02/26/2024 6:29 AM CDT [facility] ABS. MONOCYTES 0.67 0.00 - 1.50 x10'3/uL 02/26/2024 6:29 AM CDT [facility] ABS. EOSINOPHILS 0.19 0.00 - 0.40 x10'3/uL 02/26/2024 6:29 AM CDT [facility] ABS. BASOPHILS 0.09 0.00 - 0.20 x10'3/uL 02/26/2024 6:29 AM CDT [facility] ABS. IMMATURE GRANULOCYTES 0.11(H) 0.00 - 0.03 x10'3/uL 02/26/2024 6:29 AM CDT [facility] ABS. NUCLEATED RBC'S 0.00 0.00 - 0.01 x10'3/uL 02/26/2024 6:29 AM CDT [facility] NRBC % 0.0 % 02/26/2024 6:29 AM CDT [facility] 02/26/2024 6:17 AM CDT us Carmelita Celis MD LABORATORY Final Result [facility] [address] [place] [address], [id number] * (ABNORMAL) POCT glucose (02/26/2024 5:44 AM CDT) GLUCOSE POC 296(H) 70 - 109 02/26/2024 5:49 AM CDT [facility] 02/26/2024 5:44 AM CDT Carmelita Celis MD POCT ORDERABLES - DEVICE Final Result [facility] [address] [place] [address], [place] [phone] documented in this encounter Visit Diagnoses Diagnosis Hypotension- Primary Hypotension, unspecified documented in this encounter Admitting Diagnoses Diagnosis Hypotension Hypotension, unspecified documented in this encounter Administered Medications Inactive Administered Medications - up to 3 most recent administrations Medication Order MAR Action Action Date Dose Rate Site acetaminophen (TYLENOL) tablet 650 mg 650 mg, Oral, Every 4 hours PRN, Mild pain (Scale 1 - 3), Moderate pain (Scale 4 - 7), Fever, Starting on Thu02/26/24 at 0555, Until 02/27/24 at 1702, Maximum dose of acetaminophen is 4000 mg from all sources in 24 hours. allopurinol (ZYLOPRIM) tablet 100 mg 100 mg, Oral, 2 times daily, First dose on Thu02/26/24 at 0900, Until Discontinued Given 02/27/2024 12:24 PM CDT 100 mg Given 02/26/2024 9:41 PM CDT 100 mg Given 02/26/2024 8:26 AM CDT 100 mg amiodarone (PACERONE) tablet 100 mg 100 mg, Oral, Daily, First dose on Thu02/26/24 at 0900, Until Discontinued Given 02/27/2024 12:23 PM CDT 100 mg Given 02/26/2024 8:24 AM CDT 100 mg apixaban (ELIQUIS) tablet 5 mg 5 mg, Oral, 2 times daily, Indications: Atrial Fibrillation, First dose on Thu02/26/24 at 0900, Until DiscontinuedIndications:Atrial Fibrillation Given 02/27/2024 12:24 PM CDT 5 mg Given 02/26/2024 9:41 PM CDT 5 mg Given 02/26/2024 8:26 AM CDT 5 mg atorvastatin (LIPITOR) tablet 20 mg 20 mg, Oral, Every 24 hours, First dose on Thu02/26/24 at 0615, Until Discontinued Given 02/27/2024 6:29 AM CDT 20 mg Given 02/26/2024 6:34 AM CDT 20 mg docusate sodium (COLACE) capsule 100 mg 100 mg, Oral, 2 times daily, First dose on Thu02/26/24 at 0900, Until Discontinued Given 02/26/2024 9:41 PM CDT 100 mg Given 02/26/2024 8:26 AM CDT 100 mg gabapentin (NEURONTIN) capsule 100 mg 100 mg, Oral, 2 times daily, First dose on Thu02/26/24 at 0900, Until Discontinued Given 02/27/2024 12:24 PM CDT 100 mg Given 02/26/2024 9:41 PM CDT 100 mg Given 02/26/2024 8:24 AM CDT 100 mg insulin glargine (LANTUS) injection 10 Units 10 Units, Subcutaneous, Nightly at bedtime, First dose on Thu02/26/24 at 2100, Until Discontinued Given 02/26/2024 9:41 PM CDT 10 Units Left Lower Abdomen insulin lispro (HUMALOG/ADMELOG) injection 8 Units 8 Units, Subcutaneous, 3 times daily before meals, First dose on Thu02/26/24 at 0700, Until Discontinued Given 02/27/2024 12:29 PM CDT 8 Units Right Lower Abdomen Given 02/27/2024 6:29 AM CDT 8 Units Ri ght Upper Abdomen Given 02/26/2024 4:55 PM CDT 8 Units Ri ght Arm midodrine (PROAMATINE) tablet 10 mg 10 mg, Oral, 3 times daily with meals, First dose (after last modification) on Thu02/26/24 at 1200, Until Discontinued Given 02/27/2024 12:24 PM CDT 10 mg Given 02/27/2024 6:28 AM CDT 10 mg Given 02/26/2024 4:55 PM CDT 10 mg midodrine (PROAMATINE) tablet 5 mg 5 mg, Oral, 3 times daily with meals, First dose on Thu02/26/24 at 0615, Until Discontinued Given 02/26/2024 6:34 AM CDT 5 mg midodrine (PROAMATINE) tablet 5 mg 5 mg, Oral, Once, 1 dose, On Thu02/26/24 at 0745 Given 02/26/2024 8:26 AM CDT 5 mg ondansetron (ZOFRAN) injection 4 mg 4 mg, Intravenous, Every 6 hours PRN, Nausea, Vomiting, Starting on Thu02/26/24 at 0555, Until 02/27/24 at 1702, IV push over 2-5 minutes. polyethylene glycol (GLYCOLAX) packet 1 packet 1 packet, Oral, Daily, First dose on 02/27/24 at 1230, Until Discontinued, Dissolve entire packet in 240 mL of water Given 02/27/2024 12:24 P M CDT 1 packet Senna (SENOKOT) 8.6 MG tablet 8.6 mg 8.6 mg, Oral, Daily as needed, Constipation, Starting on Thu02/26/24 at 0555, Until 02/27/24 at 1702, If both senna and polyethylene glycol are ordered, use as 2nd choice. Given 02/27/2024 12:25 PM CDT 8.6 mg documented in this encounter Active and Recently Administered Medications Times are shown in CDT. Scheduled Medication Order 02/25/2024 02/26/2024 02/27/2024 allopurinol (ZYLOPRIM) tablet 100 mg 100 mg, Oral, 2 times daily, First dose on Thu02/26/24 at 0900, Until Discontinued 825 (Given - Provider: Tara Mensah RN)2140 (Given - Provider: Chelsea Yanez RN) 122 (Given - Provider: Lauren Courtney RN) amiodarone (PACERONE) tablet 100 mg 100 mg, Oral, Daily, First dose on Thu02/26/24 at 0900, Until Discontinued 823 (Given - Provider: Tara Mensah RN) 122 (Given - Provider: Lauren Courtney RN) apixaban (ELIQUIS) tablet 5 mg 5 mg, Oral, 2 times daily, Indications: Atrial Fibrillation, First dose on Thu02/26/24 at 0900, Until Discontinued 825 (Given - Provider: Tara Mensah RN)2140 (Given - Provider: Chelsea Yanez RN) 122 (Given - Provider: Lauren Courtney, CABRERA) atorvastatin (LIPITOR) tablet 20 mg 20 mg, Oral, Every 24 hours, First dose on Thu02/26/24 at 0615, Until Discontinued 0634 (Given - Provider: Asya Wallace RN) 06 (Given - Provider: Chelsea Yanez, CABRERA) docusate sodium (COLACE) capsule 100 mg 100 mg, Oral, 2 times daily, First dose on Thu02/26/24 at 0900, Until Discontinued 08 (Given - Provider: Tara Mensah RN)214 (Given - Provider: Chelsea Yanez RN) 122 (Not Given - Provider: Lauren Courtney RN - Reason: Contraindicated) gabapentin (NEURONTIN) capsule 100 mg 100 mg, Oral, 2 times daily, First dose on Thu02/26/24 at 0900, Until Discontinued 823 (Given - Provider: Tara Mensah RN)214 (Given - Provider: Chelsea Yanez RN) 122 (Given - Provider: Lauren Courtney, CARBERA) insulin glargine (LANTUS) injection 10 Units 10 Units, Subcutaneous, Nightly at bedtime, First dose on Thu02/26/24 at 2100, Until Discontinued 2140 (Given - Provider: Chelsea Yanez RN) insulin lispro (HUMALOG/ADMELOG) injection 8 Units 8 Units, Subcutaneous, 3 times daily before meals, First dose on Thu02/26/24 at 0700, Until Discontinued 0634 (Given - Provider: Asya Wallace RN)1155 (Given - Provider: Tara Mensah RN)1655 (Given - Provider: Tara Mensah RN) 06 (Given - Provider: Chelsea Yanez RN)1229 (Given - Provider: Lauren Courtney, CABRERA)1600 (Canceled Entry - Provider: Automatic Discharge Provider - Comment: Automatically canceled at discontinue of medication order) midodrine (PROAMATINE) tablet 10 mg 10 mg, Oral, 3 times daily with meals, First dose (after last modification) on Thu02/26/24 at 1200, Until Discontinued 1155 (Given - Provider: Tara N Staff, RN)1655 (Given - Provider: Tara Mensah, RN) 0628 (Given - Provider: Chelsea Yanez RN - Comment: Going for dialysis at 0700)1224 (Given - Provider: Lauren Courtney RN)1700 (Canceled Entry - Provider: Automatic Discharge Provider - Comment: Automatically canceled at discontinue of medication order) midodrine (PROAMATINE) tablet 5 mg (CANCELED) 5 mg, Oral, 3 times daily with meals, First dose on Thu02/26/24 at 0615, Until Discontinued 0634 (Given - Provider: Asya Wallace RN - Comment: bp 89/48) midodrine (PROAMATINE) tablet 5 mg (COMPLETED) 5 mg, Oral, Once, 1 dose, On Thu02/26/24 at 0745 0826 (Given - Provider: Tara Mensah RN) polyethylene glycol (GLYCOLAX) packet 1 packet 1 packet, Oral, Daily, First dose on 02/27/24 at 1230, Until Discontinued, Dissolve entire packet in 240 mL of water 1224 (Given - Provid er: Lauren Courtney RN) PRN Medication Order 02/25/2024 02/26/2024 02/27/2024 acetaminophen (TYLENOL) tablet 650 mg 650 mg, Oral, Every 4 hours PRN, Mild pain (Scale 1 - 3), Moderate pain (Scale 4 - 7), Fever, Starting on Thu02/26/24 at 0555, Until 02/27/24 at 1702, Maximum dose of acetaminophen is 4000 mg from all sources in 24 hours. ondansetron (ZOFRAN) injection 4 mg 4 mg, Intravenous, Every 6 hours PRN, Nausea, Vomiting, Starting on Thu02/26/24 at 0555, Until 02/27/24 at 1702, IV push over 2-5 minutes. Senna (SENOKOT) 8.6 MG tablet 8.6 mg 8.6 mg, Oral, Daily as needed, Constipation, Starting on Thu02/26/24 at 0555, Until 02/27/24 at 1702, If both senna and polyethylene glycol are ordered, use as 2nd choice. 1225 (Given - Provid er: Lauren Courtney RN) documented in this encounter Care Teams Court Officer Relationship Specialty Start Date End Date Mery Maxwell MD [address] [place] [id number] PCP - General FAMILY PRACTICE 08/19/23 documented as of this encounter
--- OUTSIDE RECORDS SUMMARY | 2024-06-22 18:00 | XMS_ITS | Encounter Summary ---
Author Organization [facility] Address [address] [place] [address]. [place] [address] [place] [address] Care Team Providers Care Customer Solutions Teammate Name Role Phone Mery Maxwell MD Primary Care Provider [phone] Reason for Referral * Imaging (Emergency) - New Request Specialty Diagnoses / Procedures Referred By Flako cardoso Referred To Contact RADIOLOGY Procedures CT HEAD WO CON Belinda Higgins DO [address] [place] [id number] Phone: tel: fax: Referral ID Status Reason Start Date Expiration Date V isits Requested Visits Authorized [id number] New Request 02/26/2024 02/25/2025 1 1 Reason for Visit * Reason Comments Generalized Weakness Encounter Details Date Type Department Care Team (Late st Contact Info) Description 02/25/2024 10:22 PM CDT - 02/26/2024 4:12 AM CDT Emergency [facility] [address] [place] [address] Belinda Higgins DO [address] [place] [id number] Generalized Weakness Discharge Disposition: Other Facility with Planned Inpatient Readmission Social History Tobacco Use Types Packs/Day Years Used Date Smoking Tobacco: Former Cigarettes 1 15 Smokeless Tobacco: Never Alcohol Use Standard Drinks/Week Comments Not Currently 0 (1 standard drink = 0.6 oz pur e alcohol) [facility] Utilities Answer Date Recorded In the past 12 months has [employer], gas, oil, or water [employer] threatened to shut off services in your [...] place to sleep or slept in a detention (including now)? Patient declined 09/01/2023 Housing Stability [...] were you homeless or living in a detention (including now)? No 02/26/2024 Sex and Gender Information Value Date Recorded Sex Assigned at Not on file Legal Sex Male 6:24 PM CDT Gender Identity Not on file Sexual Orientation Not on file documented as of this encounter Last Filed Vital Signs Vital Sign Reading Time Taken Comments Blood Pressure 100/50 02/26/2024 4:00 AM CDT Pulse 65 02/26/2024 4:00 AM CDT Temperature 36.3 ??C (97.4 ??F) 02/25/2024 10:15 PM C DT Respiratory Rate 16 02/25/2024 10:15 PM CDT Oxygen Saturation 95% 02/26/2024 4:00 AM CDT Inhaled Oxygen Concentration - - Weight 117.9 kg (260 lb) 02/25/2024 10:40 PM CDT Height 193 cm (6' 4 ) 02/25/2024 10:40 PM CDT Body Mass Index 31.65 02/25/2024 10:40 PM CDT documented in this encounter Functional [...] PM CDT Kathy Jim RN Active * Do you have serious difficulty walking or climbing stairs? Answer Date of Assessment Author Status Yes 12/31/2023 10:19 PM CDT Kathy Jim RN Active * Do you have difficulty dressing or bathing? Answer Date of Assessment Author Status Yes 12/31/2023 10:19 PM CDT Kathy Jim RN Active * Because of a physical, mental, or emotional condition, do you have difficulty doing errands alone such as visiting a doctor's office or shopping? Answer Date of Assessment Author Status No 12/31/2023 10:19 PM CDT Jim, Kathy L, RN Active documented as of this encounter Mental Status * Because of a physical, mental, or emotional condition, do you have serious difficulty concentrating, remembering, or making decisions? Answer Entry Date Author Status No 12/31/2023 10:19 PM CDT Kathy Jim RN Active documented in this encounter Medications at [...] 3 (three) times daily with meals for 30 days. 90 tablet 02/27/2024 02/27/2024 midodrine (PROAMATINE) 10 MG tablet Take 1 tablet (10 mg total) by mouth 3 (three) times daily with meals for 60 days. 90 tablet 1 02/27/2024 03/31/2024 documented as of this encounter Nursing Notes * Acosta Bloom RN - 02/26/2024 3:47 AM CDT Images from the original note were not included. documented in this encounter ED Notes * Christine Peter RN - 02/26/2024 3:38 AM CDT [facility] contacted for patient transfer. * Mikayla Appiah RN - 02/26/2024 3:30 AM CDT Pt reports receiving dialysis on Thursday, , and Saturdays with the last being 02/25/24 * Belinda Higgins DO - 02/25/2024 11:07 PM CDT Emergency Department Note 02/26/24 3:20 AM Chief Complaint : Generalized Weakness Pt here via ems after they were taking him home from here. States he felt like his speech was slurred, SOB, generalized weakness and lightheaded. Had dialysis today. HPI : Vinay Wilburn is a 53-year-old male who presents for SOB and dizziness. Pt states that EMS was taking him home and he felt SOB and light headed again. He was here earlier for the same. CXR was normal. He is not tachycardic. He had dialysis today and completed it. He states that he has dizziness when he sits up, stands up. He feels like it is light headed and may pass out. He states this does seem to happen more after dialysis. He does make some urine sometimes. No fever. He states no cough, chest pain. He normally gets dialysis on , , and Thursday. However, this week, he had dialysis on Thursday, Thursday, and because they said he had too much fluid on him. History Chief Complaint Patient presents with Generalized Weakness HPI Past Medical History: Diagnosis Date A-fib ([facility] HHS/HCC) Constipation Diabetes mellitus ([facility] HHS/HCC) ESRD (end stage renal disease) ([facility] HHS/[facility]) GERD (gastroesophageal reflux disease) Gout, unspecified High cholesterol Neuropathy 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[facility]) Renal disorder Past Surgical History: Procedure Laterality Date FISTULA CANNULATION SET, EA TONSILLECTOMY Family History Problem Relation Name Age of Onset Diabetes Mother Hypertension Mother Hypertension Father Diabetes Father Alzheimer's disease Father Diabetes Sister Social History Tobacco Use Smoking status: Former Current packs/day: 1.00 Average packs/day: 1 pack/day for 15.0 years (15.0 ttl pk-yrs) Types: Cigarettes Smokeless tobacco: Never Vaping Use Vaping status: Never Used Substance Use Topics Alcohol use: Not Currently Drug use: Not Currently Review of Systems Review of systems completed. Abnormals are noted above in HPI. Physical Exam Vital Signs: Filed Vitals: 02/26/24 0130 02/26/24 0201 02/26/24 0230 02/26/24 0300 BP: 106/66 101/61 95/54 114/71 Pulse: 66 65 68 68 Resp: Temp: TempSrc: SpO2: 95% 97% 97% 97% Weight: Height: GENERAL: Patient is conscious alert and oriented x3 and in no acute distress. HEENT: Head is normocephalic and atraumatic. Extraocular muscles are intact. Oral mucosa are moist and without lesion. NECK: Trachea is midline. No meningeal signs. LUNGS: Lungs are clear to auscultation bilaterally. There is good respiratory effort. HEART: Regular rate and rhythm, no murmur. There is no gallop or rub. ABDOMEN: Soft and nontender to palpation. Bowel sounds are normal in all quadrants. There is no guarding or rebound. There are no masses. MUSCULOSKELETAL: Moves all extremities x4. There is no obvious deformity. Distal pulses are intact. SKIN: Exposed skin shows no obvious erythema. Skin is warm and dry. There is no rash. NEUROLOGIC: Patient is conscious, alert and oriented x3. No focal neurologic defect is noted. PSYCH: Normal affect Results for orders placed or performed during the hospital encounter of 02/25/24 ECG 12 lead Narrative [place] [address] 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 [address] INDICATION: Dizziness. COMPARISON: September 01, 2023. TECHNIQUE: Axial images were obtained through the head without intravenous contrast administration. DOSE OPTIMIZATION: This facility uses dose optimization techniques as appropriate to perform exams, including at least one of the following techniques: 1. Automated exposure control. 2. Adjustment of the mA and/or kV according to patient size (this includes techniques or standardized protocols for targeted exams where dose is matched to the indication/reason for exam, i.e. extremities or head). 3. Use of iterative reconstructive technique. FINDINGS: Cerebral Parenchyma: There is normal peter-white matter differentiation bilaterally with no evidence of acute ischemia. There is no encephalomalacia, significant atrophy, or chronic small vessel ischemic change. There are no masses. Ventricles: Normal and symmetric with no mass effect or midline shift. Hemorrhage: None. Sinus and Mastoids: There is mucosal thickening in the right maxillary sinus and also within a few of the right ethmoid air cells. There is also an air-fluid level in the dependent portion of the right maxillary sinus. There is an air-fluid level in the right frontal sinus. The mastoid air cells are well aerated. Bones: The calvarium is normal and intact. Soft Tissues: The visualized soft tissues appear unremarkable. IMPRESSION: 1. Right paranasal sinus disease. Air-fluid levels are noted within the right maxillary and right frontal sinuses. This can be seen with acute sinusitis. 2. No acute intracranial process. Referred By: Interpreted By: Steve Bess MD, 02/26/2024 2:17 AM ED Course Medical Decision Making I did not repeat blood work as it was less than 6 hours ago. I did not repeat a CXR as well. Lungs were clear. He is not tachycardic. PE is low suspicion. I suspect that he has orthostatic hypotension and that is why he is lightheaded. He has orthostatic hypotension. We will hold on fluids only because he is a dialysis patient. We will try midodrine first and monitor. Continues to be low, will give fluids. MAP is stable, but BP remains in the 80s systolic. We will try vasopressin. He is doing much better with one dose of vasopressin. ED Course as of 02/26/24 0320 ThuFeb 26, 2024 0044 [facility] contacted. [CL] 0104 Dr. Celis. He would like lactic acid and head CT and continue to monitor. [CL] [address] Celis. He will accept to [facility] tele. [CL] ED Course User Index [CL] Belinda Higgins DO -Patient seen and evaluated, available studies reviewed -Prior available records reviewed, triage notes reviewed. Medications azithromycin (ZITHROMAX) tablet 500 mg (has no administration in time range) lactated ringers bolus infusion 1,000 mL (0 mLs Intravenous Infusion Stop Time 02/26/24 0049) midodrine (PROAMATINE) tablet 5 mg (5 mg Oral Given 02/25/24 2345) vasopressin (PITRESSIN) injection 1 Units (1 Units Intravenous Given 02/26/24 0128) New Prescriptions No medications on file Clinical impression: SNOMED CT(R) 1. Hypotension, unspecified hypotension type LOW BLOOD PRESSURE 2. Orthostatic hypotension ORTHOSTATIC HYPOTENSION 3. Light-headed feeling LIGHTHEADEDNESS 4. Dyspnea, unspecified type DYSPNEA 5. 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 In an effort to expedite patient care, this report has not been adjusted for typographical, grammatical, and syntax by a trained medical office representative. BELINDA HIGGINS DO 02/26/2024 Belinda Higgins DO 02/27/24 0240 * Joaquin Ramos RN - 02/25/2024 10:12 PM CDT Pt here via ems after they were taking him home from here. States he felt like his speech was slurred, SOB, generalized weakness and lightheaded. Had dialysis today. documented in this encounter Plan of Treatment Upcoming Encounters Date Type Department Care Team (Late st Contact Info) Description 07/20/2024 10:30 AM MICROBIOLOGY TEACHER Office Visit [facility] [place] [id number] Martha Ramirez, [facility]- [address] [place] [address] documented as of this encounter Goals Goal Patient Goal Type Associated Problems Recent Progress Patient-Stated? 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 RN documented as of this encounter Procedures Procedure Name Priority Date/Time Associated Diagnosis Comments CT HEAD WO CON STAT 02/26/2024 1:56 AM CDT LACTIC ACID W REFLEX (SEPSIS) STAT 02/26/2024 1:17 AM CDT ECG 12-LEAD STAT 02/25/2024 10:11 PM CDT documented in this encounter Results * CT HEAD WO CON (02/26/2024 1:56 AM CDT) Anatomical Region Laterality Modality Head Computed Tomogra phy 02/26/2024 2:17 AM CDT Impressions 02/26/2024 2:20 AM CDT IMPRESSION: 1. ??Right paranasal sinus disease. ??Air-fluid levels are noted within the right maxillary and right frontal sinuses. ??This can be seen with acute sinusitis. 2. ??No acute intracranial process. Referred By: ?? Interpreted By: Steve Bess MD, 02/26/2024 2:17 AM Narrative 02/26/2024 2:20 AM CDT [facility] [address] [facility] [place] [address] INDICATION: Dizziness. COMPARISON: September 01, 2023. TECHNIQUE: Axial images were obtained through the head without intravenous contrast administration. DOSE OPTIMIZATION: This facility uses dose optimization techniques as appropriate to perform exams, including at least one of the following techniques: 1. Automated exposure control. 2. Adjustment of the mA and/or kV according to patient size (this includes techniques or standardized protocols for targeted exams where dose is matched to the indication/reason for exam, i.e. extremities or head). 3. Use of iterative reconstructive technique. FINDINGS: Cerebral Parenchyma: There is normal peter-white matter differentiation bilaterally with no evidence of acute ischemia. There is no encephalomalacia, significant atrophy, or chronic small vessel ischemic change. There are no masses. Ventricles: Normal and symmetric with no mass effect or midline shift. Hemorrhage: None. Sinus and Mastoids: There is mucosal thickening in the right maxillary sinus and also within a few of the right ethmoid air cells. ??There is also an air-fluid level in the dependent portion of the right maxillary sinus. ??There is an air-fluid level in the right frontal sinus. The mastoid air cells are well aerated. Bones: The calvarium is normal and intact. Soft Tissues: The visualized soft tissues appear unremarkable. Procedure Note Steve Bess MD - 02/26/2024 [facility] [address] [facility] [place] [address] INDICATION: Dizziness. COMPARISON: September 01, 2023. TECHNIQUE: Axial images were obtained through the head without intravenouscontrast administration. DOSE OPTIMIZATION: This facility uses dose optimization techniques asappropriate to perform exams, including at least one of the followingtechniques: 1. Automated exposure control. 2. Adjustment of the mA and/or kV according to patient size (this includestechniques or standardized protocols for targeted exams where dose ismatched to the indication/reason for exam, i.e. extremities or head). 3. Use of iterative reconstructive technique. FINDINGS: Cerebral Parenchyma: There is normal peter-white matter differentiation bilaterally with noevidence of acute ischemia. There is no encephalomalacia, significant atrophy, or chronic small vesselischemic change. There are no masses. Ventricles: Normal and symmetric with no mass effect or midline shift. Hemorrhage: None. Sinus and Mastoids: There is mucosal thickening in the right maxillary sinus and also within afew of the right ethmoid air cells. There is also an air-fluid level inthe dependent portion of the right maxillary sinus. There is an air-fluidlevel in the right frontal sinus. The mastoid air cells are well aerated. Bones: The calvarium is normal and intact. Soft Tissues: The visualized soft tissues appear unremarkable. IMPRESSION: 1. Right paranasal sinus disease. Air-fluid levels are noted within theright maxillary and right frontal sinuses. This can be seen with acutesinusitis. 2. No acute intracranial process. Referred By: Interpreted By: Steve Bess MD, 02/26/2024 2:17 AM us Belinda Higgins DO CT Final Result * LACTIC ACID W REFLEX (SEPSIS) (02/26/2024 1:17 AM CDT) LACTIC ACID VENOUS 1.6 0.4 - 2.0 MMOL/L 02/26/2024 1:43 AM CDT [facility] 02/26/2024 1:17 AM CDT us Belinda Higgins DO LABORATORY Final Result [facility] [address] [place] [address], * ECG 12 lead (02/25/2024 10:11 PM CDT) 02/25/2024 10:1 1 PM CDT Narrative [facility] - 02/26/2024 5:30 PM CDT ? [facility] ?[address] [place], [place] ??[address] ? Test Date: ?2024-02-25 Pat Name: ? VINAY WILBURN ?Department: ?? 3 ? Room: ? Gender: ? Male ? 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 : ?1970 ? Requested By: BELINDA HIGGINS Order Number: [id number] ? Reading MD: ?? Diane Filomenalamothu ? Measurements Intervals ?[place] ? Rate: ? 72 ? P: ?38 AL: ? 188 ?QRS: ?-26 QRSD: ? 96 ? T: ?35 QT: ? 427 ? QTc: ?470 ? Interpretive Statements SINUS RHYTHM BORDERLINE LEFT AXIS DEVIATION Procedure Note Timbo Valdez MD - 02/26/2024 [facility] [address] [facility] 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1970 Requested By: BELINDA HIGGINS Order Number: [id number] Reading MD: Jonnathan Measurements Intervals [place] Rate: 72 P: 38 AL: 188 QRS: -26 QRSD: 96 T: 35 QT: 427 QTc: 470 Interpretive Statements SINUS RHYTHM BORDERLINE LEFT AXIS DEVIATION us Belinda Higgins DO ECG ORDERABLES Final Result [facility] documented in this encounter Visit Diagnoses Diagnosis Hypotension, unspecified hypotension type- Primary Orthostatic hypotension Light-headed feeling Dizziness and giddiness Dyspnea, unspecified type Sinusitis Unspecified sinusitis (chronic) documented in this encounter Administered Medications Inactive Administered Medications - up to 3 most recent administrations Medication Order MAR Action Action Date Dose Rate Site azithromycin (ZITHROMAX) tablet 500 mg 500 mg, Oral, Once, 1 dose, On 02/26/24 at 0330 Given 02/26/2024 3:23 AM CDT 500 mg lactated ringers bolus infusion 1,000 mL 1,000 mL, Intravenous, Administer over 60 Minutes, Once, 1 dose, On Cheryl 02/25/24 at 2230 New Bag 02/26/2024 12:48 AM CDT 1,000 mLs 1000 mL/hr midodrine (PROAMATINE) tablet 5 mg 5 mg, Oral, Once, 1 dose, On Cheryl 02/25/24 at 2315 Given 02/25/2024 11:45 PM CDT 5 mg vasopressin (PITRESSIN) injection 1 Units 1 Units, Intravenous, Once, 1 dose, On Thu02/26/24 at 0115 Given 02/26/2024 1:28 AM CDT 1 Units documented in this encounter Active and Recently Administered Medications Times are shown in CDT. Scheduled Medication Order 02/24/2024 02/25/2024 02/26/2024 azithromycin (ZITHROMAX) tablet 500 mg (COMPLETED) 500 mg, Oral, Once, 1 dose, On Thu02/26/24 at 0330 0323 (Given - Provid er: Mikayla Appiah RN) lactated ringers bolus infusion 1,000 mL (COMPLETED) 1,000 mL, Intravenous, Administer over 60 Minutes, Once, 1 dose, On Cheryl 02/25/24 at 2230 0048 (New Bag - Provider: Mikayla Appiah RN - Comment: Given by previous shift nurse)0049 (Infusion Stop Time - Provider: Mikayla Appiah RN) midodrine (PROAMATINE) tablet 5 mg (COMPLETED) 5 mg, Oral, Once, 1 dose, On Cheryl 02/25/24 at 2315 2345 (Given - Provider: Mikayla Appiah RN) vasopressin (PITRESSIN) injection 1 Units (COMPLETED) 1 Units, Intravenous, Once, 1 dose, On Thu02/26/24 at 0115 0128 (Given - Provid er: Mikayla Appiah RN) documented in this encounter Care Teams Customer Solutions Teammate Relationship Specialty Start Date End Date Mery Maxwell MD [address] [place] [phone] PCP - General FAMILY PRACTICE 08/19/23 documented as of this encounter
--- OUTSIDE RECORDS SUMMARY | 2024-06-22 18:00 | XMS_ITS | Encounter Summary ---
Author Organization [facility] Address [address] [place] [address]. [place], [place] [id number] [place] [address] Care Team Providers Care Meeting Planner Name Role Phone Mery Maxwell MD Primary Care Provider [phone]- [phone] Encounter Details Date Type Department Care Team (Latest Contact Info) Description 03/28/2024 Travel Social History Tobacco Use Types Packs/Day Years Used Date Smoking Tobacco: Former Cigarettes 1 15 Smokeless Tobacco: Never Alcohol Use Standard Drinks/Week Comments Not Currently 0 (1 standard drink = 0.6 oz pur e alcohol) [facility] Utilities Answer Date Recorded In the past 12 months has [employer], gas, oil, or water [employer] threatened to shut off services in your [...] place to sleep or slept in a custodial (including now)? Patient declined 09/01/2023 Housing Stability [...] were you homeless or living in a custodial (including now)? No 03/28/2024 Sex and Gender Information Value Date Recorded Sex Assigned at Not on file Legal Sex Male 6:24 PM CDT Gender Identity Not on file Sexual Orientation Not on file documented as of this encounter Functional Status * Question Answer Date of Assessment Author Status Do you have serious difficulty walking or climbing stairs? Yes 03/28/2024 5:25 PM CDT Christina Mercado N urse Abstracter II Active * Question Answer Date of Assessment Author Status Do you have difficulty dressing or bathing? Yes 03/28/2024 5:25 PM CDT Christina Mercado Nurse Abstracter II Active Because of a physical, mental, or emotional condition, do you have difficulty doing errands alone such as visiting a doctor's office or shopping? Yes 03/28/2024 5:25 PM CDT Roel Mercadotravis, N urse Abstracter II Active * Are you deaf or do you have serious difficulty hearing Answer Date of Assessment Author Status No 03/28/2024 5:25 PM CDT MercadoNataliiajuju, Nu rse Abstracter II Active * Are you blind or do you have serious difficulty seeing, even when wearing glasses? Answer Date of Assessment Author Status No 03/28/2024 5:25 PM CDT Christina Mercado Nu rse Abstracter II Active * Do you have serious difficulty walking or climbing stairs? Answer Date of Assessment Author Status Yes 03/28/2024 5:25 PM CDT Christina Mercado Nu rse Abstracter II Active * Do you have difficulty dressing or bathing? Answer Date of Assessment Author Status Yes 03/28/2024 5:25 PM CDT Rogelio Nataliiajuju, Nu rse Abstracter II Active * Because of a physical, mental, or emotional condition, do you have difficulty doing errands alone such as visiting a doctor's office or shopping? Answer Date of Assessment Author Status Yes 03/28/2024 5:25 PM CDT Roel MercadoSachi robles rse Abstracter II Active documented as of this encounter Mental Status * Question Answer Entry Date Author Status Because of a physical, mental, or emotional condition, do you have serious difficulty concentrating, remembering, or making decisions? No 03/28/2024 5:25 PM CDT Rogelio Nataliiajuju Nurse Abstracter II Active * Because of a physical, mental, or emotional condition, do you have serious difficulty concentrating, remembering, or making decisions? 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, RN documented as of this encounter Visit Diagnoses Not on filedocumented in this encounter Care Teams Meeting Planner Relationship Specialty Start Date End Date Mery Maxwell MD [address] [place] [phone] PCP - General FAMILY PRACTICE 08/19/23 documented as of this encounter
--- OUTSIDE RECORDS SUMMARY | 2024-06-22 18:00 | XMS_ITS | Encounter Summary ---
Author Organization [facility] Address [address] [place] [address]. [place] [address] [place] [address] Care Team Providers Care Criminal Justice Lawyer Name Role Phone Mery Maxwell MD Primary Care Provider [phone]- [phone] Reason for Visit * Reason Comments Hypertension Encounter Details Date Type Department Care Team (Late st Contact Info) Description 10/06/2023 10:03 AM CDT - 10/06/2023 10:55 AM T Emergency [facility] [address] [facility] [place] [address] Samira Ayala MD [address] [place] [phone] Hypertension Discharge Disposition: Home or Self Care (Routine Discharge) Social History Tobacco Use Types Packs/Day Years Used Date Smoking Tobacco: Former Cigarettes Smokeless Tobacco: Never Alcohol Use Standard Drinks/Week Comments Not Currently 0 (1 standard drink = 0.6 oz pur e alcohol) [facility] Utilities Answer Date Recorded In the past 12 months has [employer], oil, or water [employer] threatened to shut off services in your [...] place to sleep or slept in a correction (including now)? Patient declined 09/01/2023 Sex and Gender Information Value Date Recorded Sex Assigned at Not on file Legal Sex Male 6:24 PM CDT Gender Identity Not on file Sexual Orientation Not on file documented as of this encounter Last Filed Vital Signs Vital Sign Reading Time Taken Comments Blood Pressure 179/122 10/06/2023 10:50 AM CDT Pulse 78 10/06/2023 10:50 AM CDT Temperature 36.4 ??C (97.6 ??F) 10/06/2023 10:09 AM C DT Respiratory Rate 18 10/06/2023 10:50 AM CDT Oxygen Saturation 98% 10/06/2023 10:50 AM CDT Inhaled Oxygen Concentration - - Weight 115.7 kg (255 lb) 10/06/2023 10:09 AM CDT Height 193 cm (6' 4 ) 10/06/2023 10:09 AM CDT Body Mass Index 31.04 10/06/2023 10:09 AM CDT documented in this encounter Functional [...] Everywhere. * High Blood Pressure Discharge Instructions (Finnish) * Dialysis Diet (Finnish) documented in this encounter Medications at Time [...] mcg total) by mouth every other day. T--[facility] 08/03/2023 02/26/2024 carvedilol (COREG) 12.5 MG tablet [...] as of this encounter ED Notes * Samira Ayala MD - 10/06/2023 10:11 AM CDT Emergency Department Note Chief Complaint Chief Complaint Patient presents with Hypertension History of Present Illness Patient presents to the ER via EMS after noting his blood pressure to be elevated today. Patient isESRD on hemodialysis and gets dialysis TRS and is due for dialysis today as it is Thursday. He has not had dialysis in 3 days. He states he felt dizzy today and had a mild frontal headache. Patient sly sergequis.. EMS noted his SBP to be about 200 en route. Patient took carvedilol and midodrine justprior to EMS arrival. He states he tries to stick to an appropriate diet. Medical History ALLERGIES: Review of patient's allergies indicates: Allergen Reactions Amoxicillin Hives MEDICATIONS: Prior to Admission medications Medication Sig Start Date End Date Taking? Authorizing Provider allopurinol (ZYLOPRIM) 100 MG tablet Take 1 tablet (100 mg total) by mouth 2 (two) times daily. 08/03/23 Default History Genericprovider amiodarone (PACERONE) 200 MG tablet Take 1 tablet (200 mg total) by mouth daily. 08/03/23 Default History Genericprovider atorvastatin (LIPITOR) 20 MG tablet Take 1 tablet (20 mg total) by mouth daily. 08/03/23 Default History Genericprovider calcitriol (ROCALTROL) 0.25 MCG capsule Take 1 capsule (0.25 mcg total) by mouth every other day. T-TH-SAT 08/03/23 Default History Genericprovider carvedilol (COREG) 12.5 MG tablet Take 1 tablet (12.5 mg total) by mouth 2 (two) times daily. 10/13/22 Default History Genericprovider Cholecalciferol 50 MCG (2000 UT) Tab Take 2 Capfuls by mouth daily. Default History Genericprovider ELIQUIS 5 MG tablet Take 1 tablet (5 mg total) by mouth 2 (two) times daily. 08/03/23 Default History Genericprovider fluticasone propionate (FLONASE) 50 MCG/ACT nasal spray 1 spray by Nasal route daily. 01/30/23 Default History Genericprovider gabapentin (NEURONTIN) 100 MG capsule Take 1 capsule (100 mg total) by mouth 2 (two) times a day. 08/03/23 Default History Genericprovider insulin lispro, 1 Unit Dial, (HUMALOG) 100 UNIT/ML injection (PEN) Inject 8 Units into the skin 3 (three) times daily before meals. 12/17/22 Default History Genericprovider insulin lispro, 1 Unit Dial, (HUMALOG) 100 UNIT/ML injection (PEN) Inject 1-6 Units into the skin 3(three) times daily. SLIDING SCALE Default History Genericprovider LANTUS SOLOSTAR 100 UNIT/ML injection (PEN) Inject 10 Units into the skin nightly at bedtime. 08/03/23 Default History Genericprovider midodrine (PROAMATINE) 10 MG tablet Take 1 tablet (10 mg total) by mouth 3 (three) times daily. 08/03/23 Default History Genericprovider pantoprazole EC (PROTONIX) 40 MG tablet Take 1 tablet (40 mg total) by mouth daily. 05/22/23 DefaultHistory Genericprovider Senna (SENNOSIDES) 8.6 MG tablet Take 1 tablet (8.6 mg total) by mouth daily. Default History Genericprovider sevelamer carbonate (RENVELA) 800 MG tablet Take 2 tablets (1,600 mg total) by mouth 3 (three) times daily with meals. Default History Genericprovider traMADol (ULTRAM) 50 MG tablet Take 1 tablet (50 mg total) by mouth every 6 (six) hours as needed for Pain. Default History Genericprovider traMADol (ULTRAM) 50 MG tablet Indications: Acute Pain < 7 Day Supply 1-2 every 6 hours as needed for pain 08/19/23 Aaron Mosher MD PAST MEDICAL HISTORY: Past Medical History: Diagnosis Date A-fib ([facility]) Constipation Diabetes mellitus ([facility]) ESRD (end stage renal disease) ([facility]) GERD (gastroesophageal reflux disease) Gout, unspecified High cholesterol Neuropathy 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[facility]) Renal disorder PAST SURGICAL HISTORY: Past Surgical History: Procedure Laterality Date FISTULA CANNULATION SET, EA TONSILLECTOMY FAMILY HISTORY: No family history on file. SOCIAL HISTORY: Social History Tobacco Use Smoking status: Former Types: Cigarettes Smokeless tobacco: Never Vaping Use Vaping status: Never Used Substance Use Topics Alcohol use: Not Currently Drug use: Not Currently Review of Systems Review of Systems Constitutional: Negative for chills and fever. Cardiovascular: Negative for chest pain and palpitations. Gastrointestinal: Negative for abdominal pain. Neurological: Positive for headaches. Negative for weakness and numbness. Physical Exam Filed Vitals: 10/06/23 1009 BP: (!) 206/92 Pulse: 81 Resp: 20 Temp: 97.6 ??F (36.4 ??C) TempSrc: Tympanic SpO2: 97% Weight: 115.7 kg (255 lb) Height: 1.93 m (6' 4 ) Physical Exam Vitals reviewed. HENT: Head: Normocephalic and atraumatic. Eyes: Conjunctiva/sclera: Conjunctivae normal. Cardiovascular: Rate and Rhythm: Normal rate and regular rhythm. Pulses: Normal pulses. Pulmonary: Effort: Pulmonary effort is normal. Musculoskeletal: Comments: Palpable thrill though a dialysis fistula left forearm. No overlying erythema. Skin: General: Skin is warm and dry. Neurological: General: No focal deficit present. Mental Status: He is alert. Diagnostic Studies / Procedures RHYTHM STRIP INTERPRETATION: Rhythm: Normal sinus, No ventricular ectopy Pulse: 81 PULSE OX INTERPRETATION: SpO2: 97 % Oxygen delivery: Room air Interpretation: No hypoxia at this time EKG: No results found for this visit on 10/06/23. EKG interpretation: EKG not performed. If performed, Dr. Ayala has personally visualized and interpreted the EKG. LABORATORY STUDIES: Results for orders placed or performed during the hospital encounter of 10/06/23 CBC W/DIFF AUTOMATED Result Value Ref Range WBC 6.11 4.00 - 10.80 x10'3/uL RBC 3.44 (L) 4.50 - 6.10 x10'6/uL HGB 11.4 (L) 13.0 - 18.0 G/DL HCT 34.5 (L) 37.0 - 52.0 % MCV 100.3 (H) 78.0 - 100.0 FL MCH 33.1 (H) 27.0 - 31.0 PG MCHC 33.0 33.0 - 36.0 G/DL RDW 12.8 11.5 - 14.5 % PLT 211 150 - 350 x10'3/uL MPV 9.4 7.4 - 10.4 FL CBC COMMENT NORMAL REFERENCE RANGE NOT ESTABLISHED FOR THE PROPORTIONAL LEUKOCYTE DIFFERENTIAL. NEUTROPHILS 74.3 % LYMPHOCYTES 17.3 % MONOCYTES 3.9 % EOSINOPHILS 2.9 % BASOPHILS 1.1 % IMMATURE GRANS 0.5 % NRBC 0.0 % ABS. NEUTROPHILS 4.53 1.60 - 8.30 x10'3/uL ABS. LYMPHOCYTES 1.06 0.80 - 4.70 x10'3/uL ABS. MONOCYTES 0.24 0.00 - 1.50 x10'3/uL ABS. EOSINOPHILS 0.18 0.00 - 0.40 x10'3/uL ABS. BASOPHILS 0.07 0.00 - 0.20 x10'3/uL ABS. IMMATURE GRANULOCYTES 0.03 0.00 - 0.03 x10'3/uL ABS. NUCLEATED RBC'S 0.00 0.00 x10'3/uL COMPREHENSIVE METABOLIC PANEL Result Value Ref Range SODIUM S/P/B 140 136 - 145 MMOL/L POTASSIUM S/P/B 3.6 3.5 - 5.1 MMOL/L CHLORIDE S/P/B 101 98 - 107 MMOL/L CO2 30.4 21.0 - 32.0 MMOL/L GLUCOSE 247 (H) 70 - 99 MG/DL BUN 47 (H) 6 - 24 MG/DL CREATININE S/P/B 4.23 (H) 0.70 - 1.30 MG/DL CALCIUM S/P/B 9.0 8.4 - 10.5 MG/DL BILIRUBIN TOTAL S/P/B 0.4 0.2 - 1.0 MG/DL ALKALINE PHOSPHATASE S/P/B 51 45 - 115 U/L AST 15 15 - 37 U/L ALT 16 16 - 63 U/L TOTAL PROTEIN S/P/B 7.5 6.4 - 8.2 G/DL ALBUMIN S/P/B 3.3 (L) 3.4 - 5.0 G/DL ANION GAP 8.6 5.0 - 15.0 MMOL/L OSMOLALITY (CALC) 311 MOSM/KG GFR ESTIMATE 16 (L) >89 ML/MIN/1.73 M2 GFR NOTES GFR REFERENCES: MAGNESIUM Result Value Ref Range MAGNESIUM 1.7 (L) 1.8 - 2.4 MG/DL IMAGING STUDIES No orders to display ED Course / Medical Decision Making History Source: patient, EMS External records reviewed: none Discussion with external provider: Khang larson Social determinates of health: none Chronic illnesses impacting care: ESRD, HTN MDM Number of Diagnoses or Management Options ESRD (end stage renal disease) on dialysis ([facility]): minor Essential hypertension: minor Diagnosis management comments: Ddx: essential hypertension, electrolyte abnormality, anemia Patient presents for evaluation of hypertension. He had a mild headache and found his SBP to be about 200. Today he was monitored in the ER and BP normalized to the 170s systolic spontaneously. Patient had taken his medications just prior to calling the ambulance. Labs without concerning abnormality. I don't feel that CT head is indicated at this time and planned to discharge to have patient get his dialysis today. He is then advised to follow up with PCP routinely and return to the ER if worsein any way. Amount and/or Complexity of Data Reviewed Clinical lab tests: ordered and reviewed Risk of Complications, Morbidity, and/or Mortality Presenting problems: moderate Diagnostic procedures: low Management options: low Patient Progress Patient progress: improved Tests considered and not ordered: CT head Medications - No data to display SNOMED CT(R) 1. Essential hypertension ESSENTIAL HYPERTENSION 2. ESRD (end stage renal disease) on dialysis ([facility]) END STAGE RENAL FAILURE ON DIALYSIS Current Discharge Medication List Disposition: Discharge Follow-Up: Mery Maxwell MD [address] [place] [phone] As needed Samira Ayala MD 10/06/2023 11:12 AM Samira Ayala MD 10/06/23 1112 * Jessenia Martin RN - 10/06/2023 10:04 AM CDT Pt arrives per ems from home. Pt c/o feeling lightheaded and dizziness that started today. Pt also c/o headache. Pt is due for dialysis at 11:00 today. documented in this encounter Plan of Treatment Upcoming Encounters Date Type Department Care Team (Late st Contact Info) Description 07/20/2024 10:30 AM GAME TESTER Office Visit [facility] [place] [phone] Martha Ramirez, [facility] [place] [address] documented as of this encounter Procedures Procedure Name Priority Date/Time Associated Diagnosis Comments COMPREHENSIVE METABOLIC PANEL STAT 10/06/2023 10:26 AM CDT CBC W/DIFF AUTOMATED STAT 10/06/2023 10:26 AM CDT MAGNESIUM STAT 10/06/2023 10:26 AM CDT documented in this encounter Results * (ABNORMAL) MAGNESIUM (10/06/2023 10:26 AM CDT) MAGNESIUM 1.7(L) 1.8 - 2.4 MG/DL 10/06/2023 10:50 AM CDT [facility] 10/06/2023 10:2 6 AM CDT Samira Ayala MD LABORATORY Final Result [facility] [address] [place] [id number], * (ABNORMAL) COMPREHENSIVE METABOLIC PANEL (10/06/2023 10:26 AM CDT) SODIUM S/P/B 140 136 - 145 MMOL/L 10/06/2023 10:50 AM CDT [facility] POTASSIUM S/P/B 3.6 3.5 - 5.1 MMOL/L 10/06/2023 10:50 AM CDT [facility] CHLORIDE S/P/B 101 98 - 107 MMOL/L 10/06/2023 10:50 AM [facility] CO2 30.4 21.0 - 32.0 MMOL/L 10/06/2023 10:50 AM [facility] GLUCOSE 247(H) 70 - 99 MG/DL 10/06/2023 10:50 AM [facility] Comment: FASTING GLUCOSE 100 TO 125 MG/DL IS CONSISTENT WITH IMPAIRED FASTING GLUCOSE. FASTING GLUCOSE >125 MG/DL IS CONSISTENT WITH DIABETES. RANDOM GLUCOSE >200 MG/DL WITH HYPERGLYCEMIC SYMPTOMS IS CONSISTENT WITH DIABETES. PER ADA GUIDELINES BUN 47(H) 6 - 24 MG/DL 10/06/2023 10:50 AM T [facility] CREATININE S/P/B 4.23(H) 0.70 - 1.30 MG/DL 10/06/2023 10:50 AM [facility] CALCIUM S/P/B 9.0 8.4 - 10.5 MG/DL 10/06/2023 10:50 AM [facility] BILIRUBIN TOTAL S/P/B 0.4 0.2 - 1.0 MG/DL 10/06/2023 10:50 AM [facility] Comment: THIS ASSAY IS NOT RECOMMENDED FOR PATIENTS UNDERGOING TREATMENT WITH ELTROMBOPAG DUE TO THE POTENTIAL FOR FALSELY ELEVATED RESULTS. ALKALINE PHOSPHATASE S/P/B 51 45 - 115 U/L 10/06/2023 10:50 AM [facility] AST 15 15 - 37 U/L 10/06/2023 10:50 AM [facility] ALT 16 16 - 63 U/L 10/06/2023 10:50 AM [facility] TOTAL PROTEIN S/P/B 7.5 6.4 - 8.2 G/DL 10/06/2023 10:50 AM [facility] ALBUMIN S/P/B 3.3(L) 3.4 - 5.0 G/DL 10/06/2023 10:50 AM [facility] ANION GAP 8.6 5.0 - 15.0 MMOL/L 10/06/2023 10:50 AM [facility] OSMOLALITY (CALC) 311 MOSM/KG 024 10:50 AM CDT [facility] Comment:REFERENCE RANGE NOT ESTABLISHED GFR ESTIMATE 16(L) >89 ML/MIN/1. 73 M2 10/06/2023 10:50 AM CDT [facility] GFR NOTES GFR REFERENCE S: 10/06/2023 10:50 AM CDT [facility] Comment: THE ESTIMATED GFR IS [...] ml/min/1.73 m2 G5,KIDNEY FAILURE: <15 ml/min/1.73 m2 10/06/2023 10:2 6 AM CDT us Samira Ayala MD LABORATORY Final Result [facility] [address] [place] [address], * (ABNORMAL) CBC W/DIFF AUTOMATED (10/06/2023 10:26 AM CDT) WBC 6.11 4.00 - 10.80 x10'3/uL 10/06/2023 10:33 AM CDT [facility] RBC 3.44(L) 4.50 - 6.10 x10'6/uL 10/06/2023 10:33 AM CDT [facility] HGB 11.4(L) 13.0 - 18.0 G/DL 10/06/2023 10:33 AM CDT [facility] HCT 34.5(L) 37.0 - 52.0 % 10/06/2023 10:33 AM CDT [facility] MCV 100.3(H) 78.0 - 100.0 FL 10/06/2023 10:33 AM CDT [facility] MCH 33.1(H) 27.0 - 31.0 PG 10/06/2023 10:33 AM CDT [facility] MCHC 33.0 33.0 - 36.0 G/DL 10/06/2023 10:33 AM CDT [facility] RDW 12.8 11.5 - 14.5 % 10/06/2023 10:33 AM CDT [facility] PLT 211 150 - 350 x10'3/uL 10/06/2023 10:33 AM CDT [facility] MPV 9.4 7.4 - 10.4 FL 10/06/2023 10:33 AM CDT [facility] CBC COMMENT NORMAL REFERENCE RANGE NOT ESTABLISHED FOR THE PROPORTIONAL LEUKOCYTE DIFFERENTIAL. 10/06/2023 10:33 AM CDT [facility] NEUTROPHILS % 74.3 % 10/06/2023 10:33 AM CDT [facility] LYMPHOCYTES % 17.3 % 10/06/2023 10:33 AM CDT [facility] MONOCYTES % 3.9 % 10/06/2023 10:33 AM CDT [facility] EOSINOPHILS % 2.9 % 10/06/2023 10:33 AM CDT [facility] BASOPHILS % 1.1 % 10/06/2023 10:33 AM CDT [facility] IMMATURE GRANS % 0.5 % 10/06/19 10:33 AM CDT [facility] NRBC 0.0 % 10/06/2023 10:33 AM CDT [facility] ABS. NEUTROPHILS 4.53 1.60 - 8.30 x10'3/uL 10/06/2023 10:33 AM CDT [facility] ABS. LYMPHOCYTES 1.06 0.80 - 4.70 x10'3/uL 10/06/2023 10:33 AM CDT [facility] ABS. MONOCYTES 0.24 0.00 - 1.50 x10'3/uL 10/06/2023 10:33 AM CDT [facility] ABS. EOSINOPHILS 0.18 0.00 - 0.40 x10'3/uL 10/06/2023 10:33 AM CDT [facility] ABS. BASOPHILS 0.07 0.00 - 0.20 x10'3/uL 10/06/2023 10:33 AM CDT [facility] ABS. IMMATURE GRANULOCYTES 0.03 0.00 - 0.03 x10'3/uL 10/06/2023 10:33 AM CDT [facility] ABS. NUCLEATED RBC'S 0.00 0.00 x10'3/uL 10/06/2023 10:33 AM CDT [facility] 10/06/2023 10:2 6 AM CDT us Samira Ayala MD LABORATORY Final Result [facility] [address] [phone] documented in this encounter Visit Diagnoses Diagnosis Essential hypertension- Primary Unspecified essential hypertension ESRD (end stage renal disease) on dialysis ([facility]) End stage renal disease documented in this encounter Care Teams Criminal Justice Lawyer Relationship Specialty Start Date End Date Mery Maxwell MD [address] [place] [phone] PCP - General FAMILY PRACTICE 08/19/23 documented as of this encounter
--- OUTSIDE RECORDS SUMMARY | 2024-06-22 18:00 | XMS_ITS | Encounter Summary ---
Author Organization [facility] Address [address] [place] [address]. [place] [address] [place] [address] Care Team Providers Care Tank Wagon Operator Name Role Phone Mery Maxwell MD Primary Care Provider [phone]- [phone] Reason for Visit * Reason Comments Medical Problem Encounter Details Date Type Department Care Team (Late st Contact Info) Description 12/31/2023 3:36 PM CDT - 12/31/2023 9:00 PM T Emergency [facility] [address] [facility] [address] Wale Alberto MD [address] [place] [id number] Medical Problem Discharge Disposition: Transfer to Acute Care Hospital Social History Tobacco Use Types Packs/Day Years Used Date Smoking Tobacco: Former Cigarettes Smokeless Tobacco: Never Alcohol Use Standard Drinks/Week Comments Not Currently 0 (1 standard drink = 0.6 oz pur e alcohol) [facility] Utilities Answer Date Recorded In the past 12 months has [employer], or water [facility] threatened to shut off services in your [...] place to sleep or slept in a fpc (including now)? Patient declined 09/01/2023 Housing Stability [...] any time in the past 12 m [facility], were you homeless or living in a fpc (including now)? No 01/01/2024 Sex and Gender Information Value Date Recorded Sex Assigned at Not on file Legal Sex Male 6:24 PM CDT Gender Identity Not on file Sexual Orientation Not on file documented as of this encounter Last Filed Vital Signs Vital Sign Reading Time Taken Comments Blood Pressure 147/70 12/31/2023 6:30 PM CDT Pulse 66 12/31/2023 6:30 PM CDT Temperature 36 ??C (96.8 ??F) 12/31/2023 3:47 PM CDT Respiratory Rate 19 12/31/2023 6:30 PM CDT Oxygen Saturation 99% 12/31/2023 6:30 PM CDT Inhaled Oxygen Concentration - - Weight 116 kg (255 lb 11.7 oz) 12/31/2023 3:47 P M CDT Height 193 cm (6' 4 ) 12/31/2023 3:47 PM CDT Body Mass Index 31.13 12/31/2023 3:47 PM CDT documented in this encounter Functional [...] PM CDT Paola Obrien RN Active documented as of this encounter Mental Status * Because of a physical, mental, or emotional condition, do you have serious difficulty concentrating, remembering, or making decisions? Answer Entry Date Author Status Yes 09/01/2023 10:00 PM KELSIT Paola Obrien RN Active documented in this encounter Discharge Instructions * Attachments The following attachments cannot be sent through Care Everywhere. * Dizziness, Nonvertigo, Discharge Instructions (Trinidadian) documented in this encounter Medications at Time [...] total) by mouth every other day. T-TH-SAT 08/03/2023 02/26/2024 carvedilol (COREG) 12.5 MG tablet [...] as of this encounter ED Notes * Joaquin Ramos RN - 12/31/2023 8:21 PM CDT Report given to Naty Chavez at [facility] called for transport. Pt updated. * Joaquin Ramos RN - 12/31/2023 6:17 PM CDT Recheck patient. Provided with meal. Updated we are awaiting dispo. No other needs. * Wale Alberto MD - 12/31/2023 4:14 PM CDTAssociated Order(s): EKG Reading; EKG Reading Chief Complaint Chief Complaint Patient presents with Medical Problem History of Present Illness 53-year-old male complaining of lightheaded and weakness after dialysis treatment today. Patient denies cough but he did get a little short of breath. Patient denies vomiting. Patient denies loss of consciousness. Patient denies chest pain. Patient denies fever. Patient says he still makes urine. Medical History ALLERGIES: Review of patient's allergies [...] Genericprovider carvedilol (COREG) 12.5 MG tablet Take 2 tablets (25 mg total) by mouth 2 (two) times daily. 10/13/22Default History Genericprovider Cholecalciferol 50 MCG (2000 UT) [...] needed for pain 08/19/23 Vinay Mosher MD PAST MEDICAL HISTORY: Past Medical History: Diagnosis Date A-fib ([facility]) Constipation Diabetes mellitus ([facility]) ESRD (end stage renal disease) ([facility]) GERD (gastroesophageal reflux disease) Gout, unspecified High cholesterol Neuropathy 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[facility]) Renal disorder PAST SURGICAL HISTORY: Past Surgical History: Procedure Laterality Date FISTULA CANNULATION SET, EA TONSILLECTOMY FAMILY HISTORY: No family history on file. SOCIAL HISTORY: Social History Tobacco Use Smoking status: Former Types: Cigarettes Smokeless tobacco: Never Vaping Use Vaping status: Never Used Substance Use Topics Alcohol use: Not Currently Drug use: Not Currently Review of Systems Review of Systems Constitutional: Negative for fever. HENT: Negative for voice change. Eyes: Negative for discharge. Respiratory: Positive for shortness of breath. Negative for cough and wheezing. Cardiovascular: Negative for chest pain. Gastrointestinal: Negative for abdominal pain. Skin: Negative for color change. Neurological: Negative for speech difficulty. Psychiatric/Behavioral: Negative for agitation. All other systems reviewed and are negative. Physical Exam Filed Vitals: 12/31/23 1700 12/31/23 1730 12/31/23 1800 12/31/23 1830 BP: 139/70 (!) 149/68 (!) 143/73 (!) 147/70 Pulse: 60 61 60 66 Resp: 14 22 20 19 Temp: TempSrc: SpO2: 100% 97% 98% 99% Weight: Height: Physical Exam Constitutional: General: He is not in acute distress. Appearance: Normal appearance. He is well-developed. He is not ill-appearing or toxic-appearing. HENT: Head: Atraumatic. Eyes: General: No scleral icterus. Right eye: No discharge. Left eye: No discharge. Extraocular Movements: Extraocular movements intact. Conjunctiva/sclera: Conjunctivae normal. Comments: Pupils equal Neck: Comments: Normal inspection Cardiovascular: Rate and Rhythm: Normal rate and regular rhythm. Heart sounds: No murmur heard. Pulmonary: Effort: No respiratory distress. Breath sounds: Normal breath sounds. No stridor. No wheezing. Abdominal: Palpations: There is no mass. Tenderness: There is no abdominal tenderness. There is no rebound. Musculoskeletal: General: Normal range of motion. Skin: General: Skin is dry. Neurological: General: No focal deficit present. Mental Status: He is alert. Cranial Nerves: No cranial nerve deficit. Motor: No weakness. Coordination: Coordination normal. Comments: GCS 15, nose finger test normal bilaterally Psychiatric: Mood and Affect: Mood normal. Diagnostic Studies / Procedures ELECTROCARDIOGRAMS: Results for orders placed or performed during the hospital encounter of 12/31/23 ECG [address] [place] [address] Test Date: 2023-12-31 Pat Name: VINAY WILBURN Department: 3 Room: EXAM 404 Gender: Male Quiller Runner: : 1970 Requested By: WALE ALBERTO Order Number: [id number] Reading MD: Measurements Intervals [place] Rate: 60 P: 35 MN: 200 QRS: -33 QRSD: 105 T: 31 QT: 511 QTc: 511 Interpretive Statements SINUS RHYTHM LEFT AXIS DEVIATION PROLONGED QT INTERVAL +++ CRITICAL TEST RESULT +++ ECG [address] [place] [address] Test Date: 2023-12-31 Pat Name: VINAY WILBURN Department: 3 Room: EXAM 404 Gender: Male Quiller Runner: : 1970 Requested By: WALE ALBERTO Order Number: [id number] Reading MD: Measurements Intervals [place] Rate: 61 P: 62 MN: 204 QRS: -25 QRSD: 107 T: 28 QT: 494 QTc: 498 Interpretive Statements SINUS RHYTHM POSSIBLE LEFT ATRIAL ENLARGEMENT BORDERLINE LEFT AXIS DEVIATION PROLONGED QT INTERVAL LABORATORY STUDIES: Results for orders placed or performed during the hospital encounter of 12/31/23 CBC W/DIFF AUTOMATED Result Value Ref Range WBC 6.62 4.00 - 10.80 x10'3/uL RBC 3.70 (L) 4.50 - 6.10 x10'6/uL HGB 12.0 (L) 13.0 - 18.0 G/DL HCT 36.7 (L) 37.0 - 52.0 % MCV 99.2 78.0 - 100.0 FL MCH 32.4 (H) 27.0 - 31.0 PG MCHC 32.7 (L) 33.0 - 36.0 G/DL RDW 12.8 11.5 - 14.5 % PLT 205 150 - 350 x10'3/uL MPV 9.6 7.4 - 10.4 FL CBC COMMENT NORMAL REFERENCE RANGE NOT ESTABLISHED FOR THE PROPORTIONAL LEUKOCYTE DIFFERENTIAL. NEUTROPHILS 61.7 % LYMPHOCYTES 28.2 % MONOCYTES 6.2 % EOSINOPHILS 2.3 % BASOPHILS 0.8 % IMMATURE GRANS 0.8 % NRBC 0.0 % ABS. NEUTROPHILS 4.09 1.60 - 8.30 x10'3/uL ABS. LYMPHOCYTES 1.87 0.80 - 4.70 x10'3/uL ABS. MONOCYTES 0.41 0.00 - 1.50 x10'3/uL ABS. EOSINOPHILS 0.15 0.00 - 0.40 x10'3/uL ABS. BASOPHILS 0.05 0.00 - 0.20 x10'3/uL ABS. IMMATURE GRANULOCYTES 0.05 (H) 0.00 - 0.03 x10'3/uL ABS. NUCLEATED RBC'S 0.00 0.00 - 0.01 x10'3/uL COMPREHENSIVE METABOLIC PANEL Result Value Ref Range SODIUM S/P/B 137 136 - 145 MMOL/L POTASSIUM S/P/B 3.2 (L) 3.5 - 5.1 MMOL/L CHLORIDE S/P/B 98 98 - 107 MMOL/L CO2 32.2 (H) 21.0 - 32.0 MMOL/L GLUCOSE 150 (H) 70 - 99 MG/DL BUN 26 (H) 6 - 24 MG/DL CREATININE S/P/B 3.22 (H) 0.70 - 1.30 MG/DL CALCIUM S/P/B 9.1 8.4 - 10.5 MG/DL BILIRUBIN TOTAL S/P/B 0.6 0.2 - 1.0 MG/DL ALKALINE PHOSPHATASE S/P/B 60 45 - 115 U/L AST 13 (L) 15 - 37 U/L ALT 15 (L) 16 - 63 U/L TOTAL PROTEIN S/P/B 8.2 6.4 - 8.2 G/DL ALBUMIN S/P/B 3.4 3.4 - 5.0 G/DL ANION GAP 6.8 5.0 - 15.0 MMOL/L OSMOLALITY (CALC) 292 MOSM/KG GFR ESTIMATE 22 (L) >89 ML/MIN/1.73 M2 GFR NOTES GFR REFERENCES: PROTIME/INR, VENOUS Result Value Ref Range PROTIME 19.5 (H) 9.4 - 12.5 SEC INR 1.7 (H) 0.8 - 1.0 TROPONIN, QUANT Result Value Ref Range TROPONIN I HIGH SENSITIVITY 11 0 - 76 ng/L URINALYSIS Result Value Ref Range COLOR (U) YELLOW TRANSPARENCY CLEAR SPECIFIC GRAVITY (U) 1.020 1.000 - 1.025 U PH 7.0 5.0 - 8.0 LEUKOCYTES (U) NEGATIVE NEGATIVE NITRITES NEGATIVE NEGATIVE PROTEIN RANDOM (U) 3+ (A) NEGATIVE GLUCOSE (U) TRACE (A) NEGATIVE KETONES (U) TRACE (A) NEGATIVE UROBILINOGEN 0.2 <1.0 EU/DL BILIRUBIN (U) NEGATIVE NEGATIVE BLOOD (U) TRACE (A) NEGATIVE WBC/HPF 0-5 0 - 5 /HPF RBC/HPF 0-5 0 - 5 /HPF BACTERIA (U) TRACE /HPF MUCUS PRESENT OTHER CASTS (U) HYALINE /LPF MAGNESIUM Result Value Ref Range MAGNESIUM 1.9 1.8 - 2.4 MG/DL IMAGING STUDIES XR CHEST PORTABLE Final Result by User, [id number] (12/30 1615) Examination: Portable chest. Exam time: 1536 hours. Clinical history: Weakness. Dizziness. Lightheadedness. Comparison: 09/12/2023. Technique: AP upright view. Findings: Allowing for differences in projection and rotation, the cardiomediastinal silhouette is stable. Allowing for projection and body habitus, the heart size is normal. Pulmonary vascularity is within normal limits. No acute infiltrates or effusions are identified. The visualized bony thorax is stable. IMPRESSION: No acute cardiopulmonary process identified. Ordered By: WALE ALBERTO Interpreted By: Hans Gonsalves MD, 12/31/2023 4:13 PM EKG Reading Date/Time: 12/31/2023 4:18 PM Performed by: Wale Alberto MD Authorized by: Wale Alberto MD Interpreted by ED physician: no specific st-t changed. Rhythm: sinus rhythm Rate: normal Clinical impression: abnormal ECG Comments: Increased QT interval EKG Reading Date/Time: 12/31/2023 10:59 PM Performed by: Wale Alberto MD Authorized by: Wale Alberto MD Interpreted by ED physician: no specific st-t changed. Rhythm: sinus rhythm Rate: normal Clinical impression: abnormal ECG Comments: QT interval still prolonged but slightly better after magnesium and potassium ED Course / Medical Decision Making Medical Decision Making reviewed all EKGs, longest QTc interval was 487 in the past, now QTc is 511. Orthostatics negative.6:[address] Mena in Psychiatric agrees to admit after case discussion, recommends another 400 mg of p.o. magnesium. No telemetry beds at [facility]. Patient given 30 mEq of potassium p.o. and 1 g of mag sulfate for increased QT intervals. Considered pulmonary embolism but INR shows patient is taking Eliquis adequately so pulm embolism unlikely. Reviewed previous EKGs. Amount and/or Complexity of Data Reviewed External Data Reviewed: ECG. Labs: ordered. Radiology: ordered. ECG/medicine tests: ordered and independent interpretation performed. Risk Decision regarding hospitalization. Clinical Impression Prolonged Q-T interval on ECG (Primary) Lightheaded Disposition: Transfer to Another Facility Wale Alberto MD 12/31/23 7040 * Jessenia Martin RN - 12/31/2023 3:46 PM CDT Pt arrives per ems from dialysis. Pt states had completed treatment and was waiting for his ride. Pt states felt dizzy and lightheaded. Staff at dialysis states pt blood pressure was low. Pt arrives awake and alert. Pt states starting to feel better. documented in this encounter Plan of Treatment Upcoming Encounters Date Type Department Care Team (Late st Contact Info) Description 07/20/2024 10:30 AM ACCOUNT SERVICES REPRESENTATIVE Office Visit [facility] [address] [phone] Martha Ramirez [facility] [address] [place] [address] documented as of this encounter Procedures Procedure Name Priority Date/Time Associated Diagnosis Comments ELECTROCARDIOGRAM REPORT Routine 024 10:59 PM CDT ECG 12-LEAD STAT 12/31/2023 6:05 PM CDT HC URINALYSIS AUTO W/MICRO STAT 12/31/2023 5:18 PM CDT ELECTROCARDIOGRAM REPORT Routine 024 4:18 PM CDT XR CHEST PORTABLE STAT 12/31/2023 4:0 7 PM CDT PROTHROMBIN TIME, VENOUS STAT 024 4:03 PM CDT COMPREHENSIVE METABOLIC PANEL STAT 12/31/2023 4:03 PM CDT CBC W/DIFF AUTOMATED STAT 12/31/2023 4:03 PM CDT TROPONIN, QUANT STAT 12/31/2023 4:03 PM CDT MAGNESIUM STAT 12/31/2023 4:03 PM CDT ECG 12-LEAD STAT 12/31/2023 3:41 PM CDT documented in this encounter Results * EKG Reading (12/31/2023 10:59 PM CDT) Narrative Wale Alberto MD - 12/31/2023 10:59 PM CDT Wale Alberto MD ? 12/31/2023 11:02 PM EKG Reading Date/Time: 12/31/2023 10:59 PM Performed by: Wale Alberto MD Authorized by: Wale Alberto MD ??Interpreted by ED physician: no specific st-t changed. Rhythm: sinus rhythm Rate: normal Clinical impression: abnormal ECG Comments: QT interval still prolonged but slightly better after magnesium and potassium us Wale Alberto MD [facility] Final Result * ECG 12 lead (12/31/2023 6:05 PM CDT) 12/31/2023 6:05 PM CDT [facility] - 01/01/2024 6:58 AM CDT ? [facility] ?[address] [place], [place] ??[address] ? Test Date: ?2023-12-31 Pat Name: ? VINAY COSMO ?Department: ?? 3 ? Room: ? EXAM 404 Gender: ? Male ? Quiller Runner: ?? : ?1970 ? Requested By: WALE ALBERTO Order Number: [id number] ? Reading MD: ?? Rohit Hadley ? Measurements Intervals ?[place] ? Rate: ? 61 ? P: ?62 MN: ? 204 ?QRS: ?-25 QRSD: ? 107 ?T: ?28 QT: ? 494 ? QTc: ?498 ? Interpretive Statements SINUS RHYTHM POSSIBLE LEFT ATRIAL ENLARGEMENT BORDERLINE LEFT AXIS DEVIATION PROLONGED QT INTERVAL Procedure Note Rohit Butcher MD - 01/01/[address] [place] [address] Test Date: 2023-12-31 Pat Name: VINAY LITTLEKARTHIK Department: 3 Room: EXAM 404 Gender: Male Quiller Runner: : 1970 Requested By: WALE ALBERTO Order Number: [id number] Reading MD: Rohit Butcher Measurements Intervals [place] Rate: 61 P: 62 MN: 204 QRS: -25 QRSD: 107 T: 28 QT: 494 QTc: 498 Interpretive Statements SINUS RHYTHM POSSIBLE LEFT ATRIAL ENLARGEMENT BORDERLINE LEFT AXIS DEVIATION PROLONGED QT INTERVAL us Wale Alberto MD ECG ORDERABLES Final Result [facility] * (ABNORMAL) URINALYSIS (12/31/2023 5:18 PM CDT) COLOR (U) YELLOW 12/31/2023 5:[address] [facility] TRANSPARENCY CLEAR 12/31/2023 5:[address] [facility] SPECIFIC GRAVITY (U) 1.020 1.000 - 1.025 12/31/2023 5:[address] [facility] U PH 7.0 5.0 - 8.0 12/31/2023 5:[address] [facility] LEUKOCYTES (U) NEGATIVE NEGATIVE 12/31/2023 5:[address] [facility] NITRITES NEGATIVE NEGATIVE 12/31/2023 5:[address] [facility] PROTEIN RANDOM (U) 3+(A) NEGATIVE 12/31/2023 5:[address] [facility] GLUCOSE (U) TRACE(A) NEGATIVE 12/31/2023 5:[address] [facility] KETONES MG/DL (U) TRACE(A) NEGATIVE 12/31/2023 5:[address] [facility] UROBILINOGEN 0.2 <1.0 EU/DL 12/31/2023 5:[address] [facility] BILIRUBIN (U) NEGATIVE NEGATIVE 12/31/2023 5:[address] [facility] BLOOD (U) TRACE(A) NEGATIVE 12/31/2023 5:[address] [facility] WBC/HPF 0-5 0 - 5 /HPF 12/31/2023 5:[address] [facility] RBC/HPF 0-5 0 - 5 /HPF 12/31/2023 5:[address] [facility] BACTERIA (U) TRACE /HPF 12/31/2023 5:[address] [facility] MUCUS PRESENT 12/31/2023 5:[address] [facility] OTHER CASTS (U) HYALINE /LPF 5:[address] [facility] Comment:0-5 URINE SPECIMEN OBTAINED BY CLEAN CATCH PROCEDURE / Unknown 12/31/2023 5:18 PM CDT Wale Alberto MD URINE ORDERABLES Final Result [facility] [address] [place] [address], * EKG Reading (12/31/2023 4:18 PM CDT) Narrative Wale Alberto MD - 12/31/2023 4:18 PM CDT Wale Alberto MD ? 12/31/2023 11:02 PM EKG Reading Date/Time: 12/31/2023 4:18 PM Performed by: Wale Alberto MD Authorized by: Wale Alberto MD ??Interpreted by ED physician: no specific st-t changed. Rhythm: sinus rhythm Rate: normal Clinical impression: abnormal ECG Comments: Increased QT interval Wale Alberto MD [facility] Final Result * XR CHEST PORTABLE (12/31/2023 4:07 PM CDT) Anatomical Region Laterality Modality Chest Radiographic Susannah ging 12/31/2023 4:13 PM CDT Impressions 12/31/2023 4:14 PM CDT IMPRESSION: No acute cardiopulmonary process identified. Ordered By: WALE ALBERTO Interpreted By: Hans Gonsalves MD, 12/31/2023 4:13 PM Narrative 12/31/2023 4:14 PM CDT Examination: Portable chest. Exam time: 1536 hours. Clinical history: Weakness. Dizziness. Lightheadedness. Comparison: 09/12/2023. Technique: ??AP ??upright view. Findings: Allowing for differences in projection and rotation, the cardiomediastinal silhouette is stable. Allowing for projection and body habitus, the heart size is normal. Pulmonary vascularity is within normal limits. No acute infiltrates or effusions are identified. The visualized bony thorax is stable. Procedure Note Hans Gonsalves MD - 12/31/2023 Examination: Portable chest. Exam time: 1536 hours. Clinical history: Weakness. Dizziness. Lightheadedness. Comparison: 09/12/2023. Technique: AP upright view. Findings: Allowing for differences in projection and rotation, thecardiomediastinal silhouette is stable. Allowing for projection and bodyhabitus, the heart size is normal. Pulmonary vascularity is within normallimits. No acute infiltrates or effusions are identified. The visualizedbony thorax is stable. IMPRESSION: No acute cardiopulmonary process identified. Ordered By: WALE ALBERTO Interpreted By: Hans Gonsalves MD, 12/31/2023 4:13 PM Wale Alberto MD GENERAL IMAGING Final Result * MAGNESIUM (12/31/2023 4:03 PM CDT) Pathologist [facility] MAGNESIUM 1.9 1.8 - 2.4 MG/DL 12/31/2023 4:[address] [facility] 12/31/2023 4:03 PM CDT Wale Alberto MD LABORATORY Final Result [facility] [place] [address], * TROPONIN, QUANT (12/31/2023 4:03 PM CDT) TROPONIN I HIGH SENSITIVITY 11 0 - 76 ng/L 12/31/2023 4:[address] [facility] 12/31/2023 4:03 PM CDT us Wale Alberto MD LABORATORY Final Result Performing Organization Address [facility]/ZIP Co de Phone Number [facility] [address] [place] [address], * (ABNORMAL) PROTIME/INR, VENOUS (12/31/2023 4:03 PM CDT) PROTIME 19.5(H) 9.4 - 12.5 SEC 12/31/2023 4:[address] [facility] INR 1.7(H) 0.8 - 1.0 12/31/2023 4:[address] [facility] 12/31/2023 4:03 PM CDT us Wale Alberto MD LABORATORY Final Result Performing Organization Address [facility] Co de Phone Number [facility] [address] [place] [address], [place] [phone] * (ABNORMAL) COMPREHENSIVE METABOLIC PANEL (12/31/2023 4:03 PM CDT) SODIUM S/P/B 137 136 - 145 MMOL/L 12/31/2023 4:[address] [facility] POTASSIUM S/P/B 3.2(L) 3.5 - 5.1 MMOL/L 12/31/2023 4:[address] [facility] CHLORIDE S/P/B 98 98 - 107 MMOL/L 12/31/2023 4:[address] [facility] CO2 32.2(H) 21.0 - 32.0 MMOL/L 12/31/2023 4:[address] [facility] GLUCOSE 150(H) 70 - 99 MG/DL 12/31/2023 4:[address] [facility] Comment: FASTING GLUCOSE 100 TO 125 MG/DL IS CONSISTENT WITH IMPAIRED FASTING GLUCOSE. FASTING GLUCOSE >125 MG/DL IS CONSISTENT WITH DIABETES. RANDOM GLUCOSE >200 MG/DL WITH HYPERGLYCEMIC SYMPTOMS IS CONSISTENT WITH DIABETES. PER ADA GUIDELINES BUN 26(H) 6 - 24 MG/DL 12/31/2023 4:[address] [facility] CREATININE S/P/B 3.22(H) 0.70 - 1.30 MG/DL 12/31/2023 4:[address] [facility] CALCIUM S/P/B 9.1 8.4 - 10.5 MG/DL 12/31/2023 4:[address] [facility] BILIRUBIN TOTAL S/P/B 0.6 0.2 - 1.0 MG/DL 12/31/2023 4:[address] [facility] Comment: THIS ASSAY IS NOT RECOMMENDED FOR PATIENTS UNDERGOING TREATMENT WITH ELTROMBOPAG DUE TO THE POTENTIAL FOR FALSELY ELEVATED RESULTS. ALKALINE PHOSPHATASE S/P/B 60 45 - 115 U/L 12/31/2023 4:[address] [facility] AST 13(L) 15 - 37 U/L 12/31/2023 4:[address] [facility] ALT 15(L) 16 - 63 U/L 12/31/2023 4:[address] [facility] TOTAL PROTEIN S/P/B 8.2 6.4 - 8.2 G/DL 12/31/2023 4:[address] [facility] ALBUMIN S/P/B 3.4 3.4 - 5.0 G/DL 12/31/2023 4:[address] [facility] ANION GAP 6.8 5.0 - 15.0 MMOL/L 12/31/2023 4:[address] [facility] OSMOLALITY (CALC) 292 MOSM/KG 024 4:[address] [facility] Comment:REFERENCE RANGE NOT ESTABLISHED GFR ESTIMATE 22(L) >89 ML/MIN/1. 73 M2 12/31/2023 4:[address] [facility] GFR NOTES GFR REFERENCE S: 12/31/2023 4:[address] [facility] Comment: THE ESTIMATED GFR IS [...] ml/min/1.73 m2 G5,KIDNEY FAILURE: <15 ml/min/1.73 m2 12/31/2023 4:03 PM CDT Wale Alberto MD LABORATORY Final Result [facility] [address] [place] [address], * (ABNORMAL) CBC W/DIFF AUTOMATED (12/31/2023 4:03 PM CDT) WBC 6.62 4.00 - 10.80 x10'3/uL 12/31/2023 4:[address] [facility] RBC 3.70(L) 4.50 - 6.10 x10'6/uL 12/31/2023 4:[address] [facility] HGB 12.0(L) 13.0 - 18.0 G/DL 12/31/2023 4:[address] [facility] HCT 36.7(L) 37.0 - 52.0 % 12/31/2023 4:[address] [facility] MCV 99.2 78.0 - 100.0 FL 12/31/2023 4:[address] [facility] MCH 32.4(H) 27.0 - 31.0 PG 12/31/2023 4:[address] [facility] MCHC 32.7(L) 33.0 - 36.0 G/DL 12/31/2023 4:[address] [facility] RDW 12.8 11.5 - 14.5 % 12/31/2023 4:[address] [facility] PLT 205 150 - 350 x10'3/uL 12/31/2023 4:[address] [facility] MPV 9.6 7.4 - 10.4 FL 12/31/2023 4:[address] [facility] CBC COMMENT NORMAL REFERENCE RANGE NOT ESTABLISHED FOR THE PROPORTIONAL LEUKOCYTE DIFFERENTIAL. 12/31/2023 4:[address] [facility] NEUTROPHILS % 61.7 % 12/31/2023 4:[address] [facility] LYMPHOCYTES % 28.2 % 12/31/2023 4:[address] [facility] MONOCYTES % 6.2 % 12/31/2023 4:[address] [facility] EOSINOPHILS % 2.3 % 12/31/2023 4:[address] [facility] BASOPHILS % 0.8 % 12/31/2023 4:[address] [facility] IMMATURE GRANS % 0.8 % 12/31/19 4:[address] [facility] NRBC 0.0 % 12/31/2023 4:[address] [facility] ABS. NEUTROPHILS 4.09 1.60 - 8.30 x10'3/uL 12/31/2023 4:[address] [facility] ABS. LYMPHOCYTES 1.87 0.80 - 4.70 x10'3/uL 12/31/2023 4:[address] [facility] ABS. MONOCYTES 0.41 0.00 - 1.50 x10'3/uL 12/31/2023 4:[address] [facility] ABS. EOSINOPHILS 0.15 0.00 - 0.40 x10'3/uL 12/31/2023 4:[address] [facility] ABS. BASOPHILS 0.05 0.00 - 0.20 x10'3/uL 12/31/2023 4:[address] [facility] ABS. IMMATURE GRANULOCYTES 0.05(H) 0.00 - 0.03 x10'3/uL 12/31/2023 4:[address] [facility] ABS. NUCLEATED RBC'S 0.00 0.00 - 0.01 x10'3/uL 12/31/2023 4:[address] [facility] 12/31/2023 4:03 PM CDT Wale Alberto MD LABORATORY Final Result [facility] [address] [place] [address], * ECG 12 lead (12/31/2023 3:41 PM CDT) 12/31/2023 3:41 PM CDT Narrative [facility] - 01/01/2024 6:57 AM CDT ? [facility] ?[address] [place], [place] ??[address] ? Test Date: ?2023-12-31 Pat Name: ? VINAY WILBURN ?Department: ?? 3 ? Room: ? EXAM 404 Gender: ? Male ? Quiller Runner: ?? : ?1970 ? Requested By: WALE ALBERTO Order Number: [id number] ? Andrea ANN: ?? Rohit Buthcer ? Measurements Intervals ?[place] ? Rate: ? 60 ? P: ?35 MN: ? 200 ?QRS: ?-33 QRSD: ? 105 ?T: ?31 QT: ? 511 ? QTc: ?511 ? Interpretive Statements SINUS RHYTHM LEFT AXIS DEVIATION PROLONGED QT INTERVAL +++ CRITICAL TEST RESULT +++ Procedure Note Rohit Butcher MD - 01/01/2024 [id number] [place] [address] Test Date: 2023-12-31 Pat Name: VINAY VITALIYGRZEGORZ Department: 3 Room: EXAM 404 Gender: Male Quiller Runner: : 1970 Requested By: WALE ALBERTO Order Number: [id number] Reading MD: Rohit Butcher Measurements Intervals [place] Rate: 60 P: 35 MN: 200 QRS: -33 QRSD: 105 T: 31 QT: 511 QTc: 511 Interpretive Statements SINUS RHYTHM LEFT AXIS DEVIATION PROLONGED QT INTERVAL +++ CRITICAL TEST RESULT +++ us Wale Alberto MD ECG ORDERABLES Final Result [facility] documented in this encounter Visit Diagnoses Diagnosis Prolonged Q-T interval on ECG- Primary Nonspecific abnormal electrocardiogram (ECG) (EKG) Lightheaded Dizziness and giddiness documented in this encounter Administered Medications Inactive Administered Medications - up to 3 most recent administrations Medication Order MAR Action Action Date Dose Rate Site magnesium oxide (MAG-OX) tablet 400 mg 400 mg, Oral, Once, 1 dose, On Cheryl 12/31/23 at 1900 Given 12/31/2023 7:17 PM CDT 400 mg magnesium sulfate IVPB 1 g 1 g, Intravenous, at 100 mL/hr, Once, 1 dose, On Cheryl 12/31/23 at 1700 New Bag 12/31/2023 5:00 PM CDT 1 g 100 mL/hr potassium chloride CR (KLOR-CON M) tablet 40 mEq 40 mEq, Oral, Once, 1 dose, On Cheryl 12/31/23 at 1700, Do not chew, crush, or suck on tablet. May break in half. May dissolve whole tablet in 120 mL of water and drink immediately. Given 12/31/2023 5:00 PM CDT 40 mEq documented in this encounter Active and Recently Administered Medications Times are shown in CDT. Scheduled Medication Order 12/29/2023 12/30/2023 12/31/2023 magnesium oxide (MAG-OX) tablet 400 mg (COMPLETED) 400 mg, Oral, Once, 1 dose, On Cheryl 12/31/23 at 1900 1917 (Given - Provid er: Joaquin Ramos RN) magnesium sulfate IVPB 1 g (COMPLETED) 1 g, Intravenous, at 100 mL/hr, Once, 1 dose, On Cheryl 12/31/23 at 1700 1700 (New Bag - Prov ider: Joaquin Ramos RN)181 (Infusion Stop Time - Provider: Joaquin Ramos RN) potassium chloride CR (KLOR-CON M) tablet 40 mEq (COMPLETED) 40 mEq, Oral, Once, 1 dose, On Cheryl 12/31/23 at 1700, Do not chew, crush, or suck on tablet. May break in half. May dissolve whole tablet in 120 mL of water and drink immediately. 1700 (Given - Provid er: Joaquin Ramos RN) documented in this encounter Care Teams Tank Wagon Operator Relationship Specialty Start Date End Date Mery Maxwell MD [address] [place] [phone] PCP - General FAMILY PRACTICE 08/19/23 documented as of this encounter
--- OUTSIDE RECORDS SUMMARY | 2024-06-22 18:00 | XMS_ITS | Encounter Summary ---
Author Organization [facility] Address [address] [place] [address]. [place] [address] [place] [address] Care Team Providers Care Dental Intern Name Role Phone Mery Maxwell MD Primary Care Provider +1- [phone] Encounter Details Date Type Department Care Team (Late st Contact Info) Description 02/03/2024 10:25 AM CDT - 02/03/2024 11:59 PM T Hospital Encounter [facility] [address] [place] [address] Martha Graham, [facility]- [address] [place] [address] Discharge Disposition: Home or Self Care (Routine Discharge) Social History Tobacco Use Types Packs/Day Years Used Date Smoking Tobacco: Former Cigarettes Smokeless Tobacco: Never Alcohol Use Standard Drinks/Week Comments Not Currently 0 (1 standard drink = 0.6 oz pur e alcohol) [facility] Utilities Answer Date Recorded In the past 12 months has [facility] [employer], [employer], or water [employer] threatened to shut off services in your [...] place to sleep or slept in a usp (including now)? Patient declined 09/01/2023 Housing Stability [...] any time in the past 12 m [facility], were you homeless or living in a usp (including now)? No 01/01/2024 Sex and Gender [...] 10:19 PM Kathy Moffett RN Active * Are you blind or [...] Moffett RN Active documented in this encounter Medications [...] to check glucose three times daily 02/01/2024 calcitriol (ROCALTROL) 0.25 MCG capsule Take 1 capsule (0.25 mcg total) by mouth every other day. T-TH-SAT 08/03/2023 02/26/2024 carvedilol (COREG) 25 MG tablet Take 1 tablet (25 mg total) by mouth 2 (two) times daily. 01/28/2024 02/26/2024 pantoprazole EC (PROTONIX) 40 MG tablet Take 1 tablet (40 mg total) by mouth daily. 05/22/2023 02/26/2024 documented as of this encounter Plan of Treatment Upcoming Encounters Date Type Department Care Team (Late st Contact Info) Description 07/20/2024 10:30 AM PVC MONITOR Office Visit [facility]-[address] [place] [address] Martha Graham, [facility] [place] [address] documented as of this encounter Goals Goal Patient Goal Type Associated Problems Recent Progress Patient-Stated? 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, RN documented as of this encounter Procedures Procedure Name Priority Date/Time Associated Diagnosis Comments ECG 12-LEAD Routine 02/03/2024 10:40 AM CDT Prolonged Q-T interval on ECG documented in this encounter Results * ECG 12 lead (HOSPITAL PERFORMED ONLY) (02/03/2024 10:40 AM CDT) 02/03/2024 10:4 0 AM CDT Narrative [facility] - 02/05/2024 4:40 PM CDT ? [facility] ?[address] [place], [place] ??[address] ? Test Date: ?2024-02-03 Pat Name: ? AARON CAMPOS ?Department: ?? 3 ? Room: ? Gender: ? Male ? Material Mixer: ?? : ?1970 ? Requested By: MARTHA GRAHAM Order Number: [id number] ? Reading MD: ?? Barber Blankenship ? Measurements Intervals ?[place] ? Rate: ? 63 ? P: ?49 [place]: ? 204 ?QRS: ?97 QRSD: ? 101 ?T: ?22 QT: ? 457 ? QTc: ?469 ? Interpretive Statements SINUS RHYTHM BORDERLINE RIGHT AXIS DEVIATION PROLONGED QT INTERVAL Procedure Note Barber Blankenship MD - 02/05/[address] [address] Test Date: 2024-02-03 Pat Name: AARON CAMPOS Department: 3 Room: Gender: Male Material Mixer: : 1970 Requested By: MARTHA GRAHAM Order Number: [id number] Reading MD: Barber Blankenship Measurements Intervals [place] Rate: 63 P: 49 WV: 204 QRS: 97 QRSD: 101 T: 22 QT: 457 QTc: 469 Interpretive Statements SINUS RHYTHM BORDERLINE RIGHT AXIS DEVIATION PROLONGED QT INTERVAL Martha Graham [facility] ECG ORDERABLES Final Res ult Performing Organization Address City/State/[facility] Co de Phone Number [facility] documented in this encounter Visit Diagnoses Diagnosis Prolonged Q-T interval on ECG Nonspecific abnormal electrocardiogram (ECG) (EKG) documented in this encounter Care Teams Dental Intern Relationship Specialty Start Date End Date Mery Maxwell MD [address] [place] [phone] PCP - General FAMILY PRACTICE 08/19/23 documented as of this encounter
--- OUTSIDE RECORDS SUMMARY | 2024-06-22 18:00 | XMS_ITS | Encounter Summary ---
Author Organization [facility] Address [address] [place] [address]. [place], [place] [id number] [place] [address] Care Team Providers Care Molding Machine Operator Name Role Phone Mery Maxwell MD Primary Care Provider +1- [phone] Encounter Details Date Type Department Care Team (Latest Contact Info) Description 12/31/2023 Travel Social History Tobacco Use Types Packs/Day Years Used Date Smoking Tobacco: Former Cigarettes Smokeless Tobacco: Never Alcohol Use Standard Drinks/Week Comments Not Currently 0 (1 standard drink = 0.6 oz pur e alcohol) [facility] Utilities Answer Date Recorded In the past 12 months has e electric, gas, oil, or water company threatened to shut off services in your [...] place to sleep or slept in a long term (including now)? Patient declined 09/01/2023 Housing Stability [...] any time in the past 12 m [facility], were you homeless or living in a long term (including now)? No 01/01/2024 Sex and Gender Information Value Date Recorded Sex Assigned at Not on file Legal Sex Male 6:24 PM KELSIT Gender Identity Not on file Sexual Orientation Not on file documented as of this encounter Functional Status * Question Answer Date of Assessment Author Status Do you have serious difficulty walking or climbing stairs? Yes 12/31/2023 10:19 PM Kathy Moffett RN Act malcolm * Question Answer Date of Assessment Author Status Do you have difficulty dressing or bathing? Yes 12/31/2023 10:19 PM Kathy Moffett RN Active Because of a physical, mental, or emotional condition, do you have difficulty doing errands alone such as visiting a doctor's office or shopping? No 12/31/2023 10:19 PM CDT Kathy Jim RN Acti ve * Are you deaf or do you have serious difficulty hearing Answer Date of Assessment Author Status No 09/01/2023 10:00 PM Paola Whittaker RN Active * Are you blind or do you have serious difficulty seeing, even when wearing glasses? Answer Date of Assessment Author Status Yes 09/01/2023 10:00 PM KELSIT Paola Obrien RN Active * Do you have serious difficulty walking or climbing stairs? Answer Date of Assessment Author Status Yes 09/01/2023 10:00 PM Paola Whittaker RN Active * Do you have difficulty dressing or bathing? Answer Date of Assessment Author Status Yes 09/01/2023 10:00 PM Paola Whittaker RN Active * Because of a physical, mental, or emotional condition, do you have difficulty doing errands alone such as visiting a doctor's office or shopping? Answer Date of Assessment Author Status Yes 09/01/2023 10:00 PM CDPaola Diego RN Active documented as of this encounter Mental Status * Question Answer Entry Date Author Status Because of a physical, mental, or emotional condition, do you have serious difficulty concentrating, remembering, or making decisions? No 12/31/2023 10:19 PM CDT Kathy Jim RN Active * Because of a physical, mental, or emotional condition, do you have serious difficulty concentrating, remembering, or making decisions? Answer Entry Date Author Status Yes 09/01/2023 10:00 PM Paola Whittaker RN Active documented in this encounter Plan of Treatment Upcoming Encounters Date Type Department Care Team (Late st Contact Info) Description 07/20/2024 10:30 AM POPULATION HEALTH COACH Office Visit [facility]-[address] [place] [address] Martha Ramirez, [facility]-[address] [address] documented as of this encounter Visit Diagnoses Not on filedocumented in this encounter Care Teams Molding Machine Operator Relationship Specialty Start Date End Date Mery Maxwell MD [address] [place] [phone] PCP - General FAMILY PRACTICE 08/19/23 documented as of this encounter
--- OUTSIDE RECORDS SUMMARY | 2024-06-22 18:00 | XMS_ITS | Encounter Summary ---
Author Organization [facility] Address [address] [place] [address]. [place] [address] [place] [address] Care Team Providers Care Animal Science Professor Name Role Phone Mery Maxwell MD Primary Care Provider +1- [phone] Encounter Details Date Type Department Care Team (Late st Contact Info) Description 09/08/2023 Orders Only [facility] [address] [address] Mery Maxwell MD [address] [place] [phone] Social History Tobacco Use Types Packs/Day Years Used Date Smoking Tobacco: Former Cigarettes Smokeless Tobacco: Never Alcohol Use Standard Drinks/Week Comments Not Currently 0 (1 standard drink = 0.6 oz pur e alcohol) [facility] Utilities Answer Date Recorded In the past 12 months has [facility] [employer], gas, oil, or water [employer] threatened to shut off services in your [...] place to sleep or slept in a penitentiary (including now)? Patient declined 09/01/2023 Sex and [...] Status Yes 09/01/2023 10:00 PM KELSIT Paola Obrien, RN Active * Do you have serious [...] Obrien RN Active documented in this encounter Plan of Treatment Upcoming Encounters Date Type Department Care Team (Late st Contact Info) Description 07/20/2024 10:30 AM PHOTOGRAPH MOUNTER Office Visit [facility] [address] [place] [address] Martha Ramirez [facility]- [address] [place] [address] documented as of this encounter Results * (ABNORMAL) COMPREHENSIVE METABOLIC PANEL (09/08/2023 10:00 AM CDT) SODIUM S/P/B 137 136 - 145 MMOL/L 09/08/2023 11:51 AM T [facility] POTASSIUM S/P/B 3.6 3.5 - 5.1 MMOL/L 09/08/2023 11:51 AM T [facility] CHLORIDE S/P/B 98 98 - 107 MMOL/L 09/08/2023 11:51 AM CDT [facility] CO2 25.5 21.0 - 32.0 MMOL/L 09/08/2023 11:51 AM T [facility] GLUCOSE 152(H) 70 - 99 MG/DL 09/08/2023 11:51 AM T [facility] Comment: FASTING GLUCOSE 100 TO 125 MG/DL IS CONSISTENT WITH IMPAIRED FASTING GLUCOSE. FASTING GLUCOSE >125 MG/DL IS CONSISTENT WITH DIABETES. RANDOM GLUCOSE >200 MG/DL WITH HYPERGLYCEMIC SYMPTOMS IS CONSISTENT WITH DIABETES. PER ADA GUIDELINES BUN 59(H) 6 - 24 MG/DL 09/08/2023 11:51 AM CDT [facility] CREATININE S/P/B 6.39(H) 0.70 - 1.30 MG/DL 09/08/2023 11:51 AM CDT [facility] CALCIUM S/P/B 9.0 8.4 - 10.5 MG/DL 09/08/2023 11:51 AM CDT [facility] BILIRUBIN TOTAL S/P/B 0.6 0.2 - 1.0 MG/DL 09/08/2023 11:51 AM T [facility] Comment: THIS ASSAY IS NOT RECOMMENDED FOR PATIENTS UNDERGOING TREATMENT WITH ELTROMBOPAG DUE TO THE POTENTIAL FOR FALSELY ELEVATED RESULTS. ALKALINE PHOSPHATASE S/P/B 52 45 - 115 U/L 09/08/2023 11:51 AM T [facility] AST 14(L) 15 - 37 U/L 09/08/2023 11:51 AM T [facility] ALT 17 16 - 63 U/L 09/08/2023 11:51 AM T [facility] TOTAL PROTEIN S/P/B 7.9 6.4 - 8.2 G/DL 09/08/2023 11:51 AM [facility] ALBUMIN S/P/B 3.4 3.4 - 5.0 G/DL 09/08/2023 11:51 AM [facility] ANION GAP 13.5 5.0 - 15.0 MMOL/L 09/08/2023 11:51 AM T [facility] OSMOLALITY (CALC) 304 MOSM/KG 024 11:51 AM T [facility] Comment:REFERENCE RANGE NOT ESTABLISHED GFR ESTIMATE 10(L) >89 ML/MIN/1. 73 M2 09/08/2023 11:51 AM T [facility] GFR NOTES GFR REFERENCE S: 09/08/2023 11:51 AM T [facility] Comment: THE ESTIMATED GFR IS [...] ml/min/1.73 m2 G5,KIDNEY FAILURE: <15 ml/min/1.73 m2 09/08/2023 10:0 0 AM CDT us Mery Maxwell MD LABORATORY Final Resu lt Performing Organization Address City/[facility]/ZIP Co de Phone Number [facility] [address] [place] [address], * MAGNESIUM (09/08/2023 10:00 AM CDT) MAGNESIUM 1.8 1.8 - 2.4 MG/DL 09/08/2023 11:51 AM CDT [facility] 09/08/2023 10:0 0 AM CDT us Mery Maxwell MD LABORATORY Final Resu lt Performing Organization Address [facility]/ZIP Co de Phone Number [facility] [address] [place] [address], * (ABNORMAL) CBC W/DIFF AUTOMATED (09/08/2023 10:00 AM CDT) WBC 7.88 4.00 - 10.80 x10'3/uL 09/08/2023 11:34 AM CDT [facility] RBC 3.44(L) 4.50 - 6.10 x10'6/uL 09/08/2023 11:34 AM CDT [facility] HGB 11.2(L) 13.0 - 18.0 G/DL 09/08/2023 11:34 AM CDT [facility] HCT 35.2(L) 37.0 - 52.0 % 09/08/2023 11:34 AM CDT [facility] MCV 102.3(H) 78.0 - 100.0 FL 09/08/2023 11:34 AM CDT [facility] MCH 32.6(H) 27.0 - 31.0 PG 09/08/2023 11:34 AM CDT [facility] MCHC 31.8(L) 33.0 - 36.0 G/DL 09/08/2023 11:34 AM CDT [facility] RDW 13.9 11.5 - 14.5 % 09/08/2023 11:34 AM CDT [facility] PLT 268 150 - 350 x10'3/uL 09/08/2023 11:34 AM CDT [facility] MPV 9.9 7.4 - 10.4 FL 09/08/2023 11:34 AM CDT [facility] CBC COMMENT NORMAL REFERENCE RANGE NOT ESTABLISHED FOR THE PROPORTIONAL LEUKOCYTE DIFFERENTIAL. 09/08/2023 11:34 AM CDT [facility] NEUTROPHILS % 65.2 % 09/08/2023 11:34 AM CDT [facility] LYMPHOCYTES % 20.7 % 09/08/2023 11:34 AM CDT [facility] MONOCYTES % 5.8 % 09/08/2023 11:34 AM CDT [facility] EOSINOPHILS % 6.0 % 09/08/2023 11:34 AM CDT [facility] BASOPHILS % 1.3 % 09/08/2023 11:34 AM CDT [facility] IMMATURE GRANS % 1.0 % 09/08/19 11:34 AM CDT [facility] NRBC 0.0 % 09/08/2023 11:34 AM CDT [facility] ABS. NEUTROPHILS 5.14 1.60 - 8.30 x10'3/uL 09/08/2023 11:34 AM CDT [facility] ABS. LYMPHOCYTES 1.63 0.80 - 4.70 x10'3/uL 09/08/2023 11:34 AM CDT [facility] ABS. MONOCYTES 0.46 0.00 - 1.50 x10'3/uL 09/08/2023 11:34 AM CDT [facility] ABS. EOSINOPHILS 0.47(H) 0.00 - 0.40 x10'3/uL 09/08/2023 11:34 AM CDT [facility] ABS. BASOPHILS 0.10 0.00 - 0.20 x10'3/uL 09/08/2023 11:34 AM CDT [facility] ABS. IMMATURE GRANULOCYTES 0.08(H) 0.00 - 0.03 x10'3/uL 09/08/2023 11:34 AM CDT [facility] ABS. NUCLEATED RBC'S 0.00 0.00 x10'3/uL 09/08/2023 11:34 AM CDT [facility] 09/08/2023 10:0 0 AM CDT us Mery Maxwell MD LABORATORY Final Resu lt [facility] [address] [place] [address], documented in this encounter Visit Diagnoses Diagnosis Hypertension- Primary Unspecified essential hypertension Hypomagnesemia Disorders of magnesium metabolism Hypokalemia Hypopotassemia documented in this encounter Care Teams Animal Science Professor Relationship Specialty Start Date End Date Mery Maxwell MD [address] [place] [phone] PCP - General FAMILY PRACTICE 08/19/23 documented as of this encounter
--- OUTSIDE RECORDS SUMMARY | 2024-06-22 18:00 | XMS_ITS | Encounter Summary ---
Author Organization [facility] Address [address] [place] [address]. [place], [place] [id number] [place] [address] Care Team Providers Care Inspector Barrel Name Role Phone Mery Maxwell MD Primary Care Provider +1- [phone] Encounter Details Date Type Department Care Team (Late st Contact Info) Description 03/02/2024 Hospital Follow-up Call [facility] [address] [phone] Charito Mckeon CNA Social History Tobacco Use Types Packs/Day Years Used Date Smoking Tobacco: Former Cigarettes 1 15 Smokeless Tobacco: Never Alcohol Use Standard Drinks/Week Comments Not Currently 0 (1 standard drink = 0.6 oz pur e alcohol) [facility] Utilities Answer Date Recorded In the past 12 months has e electric, gas, oil, or water [employer] threatened to shut off services in [...] any time in the past 12 m [facility], were you homeless or living in a skilled nursing (including now)? No 02/26/2024 Sex and Gender Information Value Date Recorded Sex Assigned at Not on file Legal Sex Male 6:24 PM CDT Gender Identity Not on file Sexual Orientation Not on file documented as of this encounter Functional Status * Are you deaf or do you have serious difficulty hearing Answer Date of Assessment Author Status No 02/26/2024 5:00 AM KELSIT Asya Wallace RN Active * Are you blind or [...] Date Author Status No 02/26/2024 5:00 AM Asya Hagen RN Active documented in this encounter Plan of Treatment Upcoming Encounters Date Type Department Care Team (Late st Contact Info) Description 07/20/2024 10:30 AM SYSTEMS SECURITY CONSULTANT Office Visit [facility] [phone] Martha Ramirez, [place] [address] documented as of this encounter Goals Goal Patient Goal Type Associated Problems Recent Progress Patient-Stated? 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 RN documented as of this encounter Visit Diagnoses Not on filedocumented in this encounter Care Teams Inspector Barrel Relationship Specialty Start Date End Date Mery Maxwell MD [address] [place] [phone] PCP - General FAMILY PRACTICE 08/19/23 documented as of this encounter
--- OUTSIDE RECORDS SUMMARY | 2024-06-22 18:00 | XMS_ITS | Encounter Summary ---
Author Organization [facility] Address [address] [place] [address]. [place] [address] [place] [address] Care Team Providers Care Intern Product Marketing Manager Name Role Phone Mery Maxwell MD Primary Care Provider [phone] Reason for Visit * Auth/Cert (Routine) Specialty Diagnoses / Procedures Referred By Flako cardoso Referred To Contact Diagnoses Hemoptysis HEMOPTYSIS Procedures NONE Raymond Mccain MD 1 [place] [address] Phone: tel: fax: Referral ID Status Reason Start Date Expiration Date Visits Re quested Visits Authorized [id number] 1 1 Encounter Details Date Type Department Care Team (Latest Contact Info) Description 03/28/2024 5:24 PM CDT - 03/31/2024 3:12 PM CDT Hospital Encounter [facility] [address] [place] [address] Raymond Mccain MD 1 [place], [place] [phone] Devyn Warner MD 1 [place] [address] Discharge Disposition: Home or Self Care (Routine Discharge) Social History Tobacco Use Types Packs/Day Years Used Date Smoking Tobacco: Former Cigarettes 1 15 Smokeless Tobacco: Never Alcohol Use Standard Drinks/Week Comments Not Currently 0 (1 standard drink = 0.6 oz pur e alcohol) [facility] Utilities Answer Date Recorded In the [...] place to sleep or slept in a intermediate (including now)? Patient declined 09/01/2023 Housing Stability [...] any time in the past 12 m onths, were you homeless or living in a intermediate (including now)? No 03/28/2024 Sex and Gender Information Value Date Recorded Sex Assigned at Not on file Legal Sex Male 6:24 PM CDT Gender Identity Not on file Sexual Orientation Not on file documented as of this encounter Last Filed Vital Signs Vital Sign Reading Time Taken Comments Blood Pressure 116/61 03/31/2024 12:27 PM CDT Pulse 75 03/31/2024 12:27 PM CDT Temperature 36.4 ??C (97.5 ??F) 03/31/2024 12:27 PM C DT Respiratory Rate 18 03/31/2024 7:00 AM CDT Oxygen Saturation 98% 03/31/2024 7:00 AM CDT Inhaled Oxygen Concentration - - Weight - - Height - - Body Mass Index - - documented in this encounter Functional Status * Question Answer Date of Assessment Author Status Do you have serious difficulty walking or climbing stairs? Yes 03/28/2024 5:25 PM CDT Christina Mercado N urse Service Line Layer II Active * Question Answer Date of Assessment Author Status Do you have difficulty dressing or bathing? Yes 03/28/2024 5:25 PM CDT Christina Mercado Nurse Service Line Layer II Active Because of a physical, mental, or emotional condition, do you have difficulty doing errands alone such as visiting a doctor's office or shopping? Yes 03/28/2024 5:25 PM KELSIT Christina Mercado N urse Service Line Layer II Active * Are you deaf or do you have serious difficulty hearing Answer Date of Assessment Author Status No 03/28/2024 5:25 PM KELSIT Christina Mercado Nu rse Service Line Layer II Active * Are you blind or do you have serious difficulty seeing, even when wearing glasses? Answer Date of Assessment Author Status No 03/28/2024 5:25 PM Christina Avila Nu rse Service Line Layer II Active * Do you have serious difficulty walking or climbing stairs? Answer Date of Assessment Author Status Yes 03/28/2024 5:25 PM CDT Christina Mercado Nu rsrohit Service Line Layer II Active * Do you have difficulty dressing or bathing? Answer Date of Assessment Author Status Yes 03/28/2024 5:25 PM CDT Christina Mercado Nu rse Service Line Layer II Active * Because of a physical, mental, or emotional condition, do you have difficulty doing errands alone such as visiting a doctor's office or shopping? Answer Date of Assessment Author Status Yes 03/28/2024 5:25 PM CDT Christina Mercado Nu rsrohit Service Line Layer II Active documented as of this encounter Mental Status * Question Answer Entry Date Author Status Because of a physical, mental, or emotional condition, do you have serious difficulty concentrating, remembering, or making decisions? No 03/28/2024 5:25 PM CDT Christina Mercado Nurse Service Line Layer II Active * Because of a physical, mental, or emotional condition, do you have serious difficulty concentrating, remembering, or making decisions? Answer Entry Date Author Status No 03/28/2024 5:25 PM CDT Christina Mercado Nu rse Service Line Layer II Active documented in this encounter Discharge Summaries * Devyn Warner MD - 03/31/2024 1:47 PM CDT Images from the original note were not included. [facility] Hospitalist Discharge Summary Patient ID: Aaron Campos [id number] 53-year-old 1970 Admit date: 03/28/2024 Expected Discharge Date: 03/31/2024 Primary care Physician: MERY MAXWELL MD Admitting Physician: Raymond Mccain MD Discharge Physician: DEVYN WARNER MD Admission Diagnoses: Hemoptysis [R04.2] Discharge Diagnoses: Mild hemoptysis on Eliquis resolved Acute bronchitis End-stage renal disease on hemodialysis Atrial fibrillation rate controlled Hyperlipidemia Hypertension Diabetes mellitus type 2 Gout GERD Past Medical History Past Medical History: Diagnosis Date A-fib ([facility] HHS/HCC) Constipation Diabetes mellitus ([facility] HHS/HCC) ESRD (end stage renal disease) ([facility] HHS/HCC) GERD (gastroesophageal reflux disease) Gout, unspecified High cholesterol Neuropathy 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CMS/HCC) Renal disorder Brief Hospital Course: Patient is a pleasant 53-year-old male with multiple medical problems as listed above presented with hemoptysis 2 or 3 times speck of blood was seen after a violent cough thirdtime it was about teaspoonful. Pulmonary was consulted CTA chest did not show any acute abnormalitynegative for PE. Patient started on antibiotic for bronchitis. Added antitussives cough improved his hemoptysis resolved he was watched on Eliquis for 24 hours without any hemoptysis. Patient to continue Tessalon Perles and p.o. antibiotic for 5 more days.. Stable for discharge Problem Based course: 53-year-old male with past medical history of end-stage renal disease with hemodialysis on Thursday, mixed hyperlipidemia type 2 diabetes mellitus gout GERD presented to outlying facility with chief complaint of hemoptysis patient started noticing pinkish sputum after coughing episode couple of days ago saw streaks of blood last night which was more than usual about 1 teaspoon ended up in the hospital today denied any chest pain or shortness of breath no fever no chills no nausea vomiting no recent upper respiratory tract infection patient is on Eliquis. INR 1.5 patient is compliant with his Eliquis. CTA chest negative for PE. patient denies any headache, black tarry stool or hematochezia or nosebleed # Mild hemoptysis hemoglobin stable Related to acute bronchitis violent cough resolved okay to resume heparin did not require any bloodtransfusion hemoglobin was fair cleared by pulmonary to continue Eliquis no indication for bronc atthis time agree End-stage renal disease nephrology consulted undergoes hemodialysis Thursday A-fib rate controlled continue Eliquis Hyperlipidemia continue statins Blood pressure continue home medications Diabetes mellitus type 2 Accu-Cheks ACHS continue home meds Gout continue allopurinol GERD continue home medication Code status: full code Consults: [facility] Pulmonary team Procedures/Significant Diagnostic Studies: No orders to display Lab Results Component Value Date NA 134 (L) 03/29/2024 K 4.2 03/29/2024 CL 101 03/29/2024 CO2 24.5 03/29/2024 BUN 85 (H) 03/29/2024 CR 7.01 (H) 03/29/2024 CA 9.7 03/29/2024 GLU 204 (H) 03/29/2024 AGAP 8.5 03/29/2024 TP 7.6 03/28/2024 ALB 3.3 (L) 03/28/2024 AST 11 (L) 03/28/2024 ALT 13 (L) 03/28/2024 WBC 7.18 03/30/2024 HGB 11.3 (L) 03/30/2024 PLT 176 03/30/2024 HGBA1C 7.4 (H) 09/02/2023 TSH 1.940 01/01/2024 INR Date Value Ref Range Status 03/28/2024 1.5 (H) 0.8 - 1.0 Final Discharged Condition: stable Code Status: Full Code Discharge Exam: Patient was seen and examined on day of discharge, vitals were stable. Disposition: discharged to home Patient Instructions: Current Discharge Medication List START taking these medications Details benzonatate (TESSALON) 200 MG capsule Take 1 capsule (200 mg total) by mouth 3 (three) times daily for 10 days. Qty: 20 capsule, Refills: 0 doxycycline hyclate (VIBRA-TABS) 100 MG tablet Take 1 tablet (100 mg total) by mouth 2 (two) times daily for 5 days. Qty: 10 tablet, Refills: 0 CONTINUE these medications which have NOT CHANGED Details allopurinol (ZYLOPRIM) 100 MG tablet Take 1 tablet (100 mg total) by mouth 2 (two) times daily. amiodarone (PACERONE) 200 MG tablet Take 0.5 tablets (100 mg total) by mouth daily. Qty: 30 tablet, Refills: 11 atorvastatin (LIPITOR) 20 MG tablet Take 1 tablet (20 mg total) by mouth daily. B-D UF III MINI PEN NEEDLES 31G X [facility] INSULIN SYRINGE U/F 31G X 15/64 0.5 ML [facility] [place] Glucose Transmitter (DEXCOM G6 TRANSMITTER) [facility] [place]IQUIS 5 MG tablet Take 1 tablet [...] by mouth 2 (two) times a day. sevelamer carbonate (RENVELA) 800 MG tablet Take 1 tablet (800 mg total) by mouth 3 (three) times daily with meals. traMADol (ULTRAM) 50 MG tablet Indications: Acute Pain < 7 Day Supply 1-2 every 6 hours as needed for pain Qty: 20 tablet, Refills: 0 Associated Diagnoses: Left shoulder pain TRUE METRIX BLOOD GLUCOSE TEST test strip use 1 strip to check glucose three times daily STOP taking these medications midodrine (PROAMATINE) 10 MG tablet Activity & DME Activity as tolerated Follow-up: Mery Maxwell MD [address] [place] [phone] Follow up in 1 week(s) cbc bmp in 1 week Nephrology for HD as scheduled Follow up Total time spent on discharge was 39 minutes. Thank you for choosing [facility]. Please call [phone] if you have any questions or concerns. Signed: DEVYN WARNER MD 03/31/2024 1:47 PM documented in this encounter Discharge Instructions * Discharge Instructions* Devyn Warner MD - 03/31/2024 1:52 PM CDT Follow-up with PCP in 1 week please call PCP if hemoptysis recurs if more than streaks if sees courtney red blood hold Eliquis and report to closest ED * Attachments The following attachments cannot be sent through Care Everywhere. * Coughing up blood (Wallisian) * Doxycycline, ADULT (Wallisian) * Benzonatate, ADULT (Wallisian) documented in this encounter Medications at Time [...] MINI PEN NEEDLES 31G X 5 MM [facility] 03/02/2024 BD VEO INSULIN SYRINGE U/F 31G X 15/64 0.5 ML [facility] 11/17/2023 Continuous Glucose Transmitter (DEXCOM G6 TRANSMITTER) [facility] 03/08/2024 ELIQUIS 5 MG tablet Take 1 [...] 03/31/2024 04/05/2024 documented as of this encounter Progress Notes * Katelin Molina RN - 03/31/2024 3:12 PM CDT Residential requested documentation to continue services. Sent. * Eduar Deras RN - 03/31/2024 12:49 PM CDTSummary: HD tx 03/31/24 03/31/24 1227 Post Treatment Note Post Treatment Note pt completed 3.5hr tx removed 2.5L uf pt tolerated tx well Vital Signs Temp 97.5 ??F (36.4 ??C) Temp src Temporal Pulse 75 Heart Rate Source Monitor BP 116/61 MAP Calculated 79 MM HG BP Location Right arm BP Method Automatic Patient Position Lying Cuff size Adult Regular Post Treatment Weight Post-Treatment Weight (kg) 114.5 kg (252 lb 6.8 oz) Additonal Post Treatment Information Time Treatment Ended 1215 Dialyzer Cleared Fair Blood Processed 82.6 Net UF removed 2500 Post Treatment Access AVF/AVG: Bleeding Stop Arterial 5 min AVF/AVG: Bleeding Stop Venous 5 min +Bruit Yes * Rolan Simon MD - 03/31/2024 11:49 AM CDT Hemodialysis attestation note; Patient seen and examined on hemodialysis. No objection to discharge after dialysis today * Shamir Lowe RN - 03/31/2024 8:59 AM CDT 03/31/24 0859 Interdisciplinary Group Conference Team Members Present Case/Care management;Physician;Nursing Physician present for group conference Alana Patient Current Status Paient current status Inpatient Barriers to Discharge Inpatient Review Barriers to Discharge Inpatient No Barrier- Medical Milestone in Process No Barrier- Medical Milestone in Process follow up ready for discharge after dialysis Patient expects to be discharged to Patient expects to be discharged to: Home or Self care no new needs 0801 ready for discharge after dialysis no new needs * Rolan Simon MD - 03/30/2024 1:10 PM CDT Nephrology ESRD Service Daily Progress Note LOS: 0 days Portions of this note have been copied from previous notes and updated to accurately represent the patient's current medical status. Subjective: In the past 24 hours patient underwent dialysis yesterday uneventfully. Lying supine Medications: Scheduled: [START ON 03/31/2024] allopurinol 50 mg Oral Once per day on Thursday amiodarone 100 mg Oral Daily apixaban 5 mg Oral BID atorvastatin 20 mg Oral nightly benzonatate 200 mg Oral TID gabapentin 100 mg Oral BID heparin (porcine) 1,000 Units Intravenous Once insulin glargine 17 Units Subcutaneous Nightly at bedtime pantoprazole EC 40 mg Oral Daily paricalcitol 5 mcg Intravenous Once in dialysis sevelamer carbonate 800 mg Oral TID WC tranexamic acid (CYKLOKAPRON) 500 mg in sodium chloride (PF) 0.9 % 10 mL nebulizer solution 500 mg Nebulization TID Continuous Infusions: OBJECTIVE: Intake/Output Summary (Last 24 hours) at 03/30/2024 1310 Last data filed at 03/30/2024 1220 Gross per 24 hour Intake 427 ml Output 320 ml Net 107 ml Physical Exam: Alert, awake and appropriate HEENT: Normal conjunctivae Pulmonary: No overt respiratory distress lungs clear to auscultation. No adventitious sounds noted.Not tachypneic. Lying supine in no distress GI: Abdomennondistended. Lower Extremities: No edema. 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 Labs: Recent Labs Lab 03/28/24 1118 03/29/24 0406 03/30/24 0430 WBC 7.28 7.36 7.18 HGB 11.2* 10.3* 11.3* HCT 33.6* 31.4* 34.5* MCV 99.7 100.3* 100.6* No results found for: IRON , IRONSAT , FERRITIN , FOLATE Assessment & Plan: Aaron Campos is a 53-year-old male with ESRD secondary to hypertension and diabetes who normallyreceives dialysis on a TTS schedule at [facility] now comes in with a single episode of hemoptysis. - ESRD: on 3 day a week schedule.T / / THU. Underwent dialysis uneventfully yesterday Next session dialysis tomorrow - Hypertension/Episodic HOTN: Patient was earlier on carvedilol which had to be discontinued on hislast hospitalization on 03/08 due to presentation with hypotension. Blood pressure appears to be within normal limits without episodes of hypotension without any addition of midodrine. Can likely hold midodrine on discharge - Anemia: Hb is Stable - Volume status: Euvolemic. We will ultrafiltrate pt as tolerated. - Metabolic acidosis: We will adjust bicarbonate in dialysate to correct this. -Hemoptysis; noted that he has been taken off Eliquis and Plavix. He has been ruled out for PE. Appreciate pulmonary recommendations. - Rolan Simon MD 03/30/2024 1:10 PM * Nahid Blackwell MD - 03/30/2024 12:24 PM CDT Medical Necessity Recommendation Patient Name: Aaron Campos Admit Date:03/28/2024 Age/Gender: 53-year-old/male Attending Physician: Devyn Warner MD Physician Advisor: NAHID BLACKWELL MD Current admit order: Observation Type of review: Second level review complete Recommendation Summary 03/30/2024 : Recommendation: Observation Recommendations for 03/30/2024 Supporting Clinical Factors: Second level review for prolonged observation status. Patient was admitted for hemoptysis, held home Eliquis. Was eventually resumed. Hemoptysis thought to be secondary to bronchitis exacerbated by Eliquis, cough. Pulmonary had seen, recommended no bronchoscopy. Has since signed off. Hemoglobin stable. The Attending Physician Concern: Hemoptysis Rationale: Initial intervention was holding Eliquis. Hemoglobin stable. Resumed Eliquis. Appropriate for observation Plan of Care Includes: See above * Jessenia Brush, COMMISSIONER OF CONCILIATION - 03/30/2024 11:07 AM CDT [facility] PROGRESS NOTE Reason for admission: Hemoptysis [R04.2] Reason for consult: Hemoptysis ASSESSMENT AND PLAN Aaron Campos is a 53-year-old male, with history of Afib (on Eliquis), DM2, ESRD (on HD TTS), HLD, GERD, and gout. Former smoker, quit 25 years ago. Smoked 1/2 ppd x 10+ years. Patient admitted 03/28 with hemoptysis for a few days, for which [facility] Pulmonology was consulted. Patient does not report recent illness with increased cough. No active bleeding noted. No blood in stool or urine. No epistaxis. CT chest with no abnormalities evident that could be a source of bleeding.Suspect bleeding 2/2 bronchitis, exacerbated by Eliquis. Active Problems # Hemoptysis # ESRD on HD TTS # Afib on Eliquis, restarted today 03/30 # Former smoker Pertinent Workup CTA chest PE protocol: 1. Negative for pulmonary embolism as described. 2. Coronary artery disease. 3. Bilateral gynecomastia. Echo 09/03/23: Mild concentric left ventricular hypertrophy. The left ventricular systolic function is hyperdynamic. The calculated ejection fraction is 71%. The right ventricular size is probably normal. Right ventricular systolic function appears normal. The left atrial volume is moderately increased. No significant valvular abnormalities identified. 03/28 FOBT: negative 03/30 H/H: 11.3/34.5 [facility] Pulmonology Final Recommendations - Reviewed CTA chest. No evidence of pneumonia, PE, or other abnormality that could be source of hemoptysis. Suspect it is 2/2 to cough/bronchitis and Eliquis. - Eliquis was restarted today per primary. If patient has recurrence of hemoptysis on Eliquis, recommend discussion with inter fold roll cutter to decrease dose. - TXA nebs ordered TID x3 days. - No indication for intervention at this time. Thank you for the consult. We will sign off. SUBJECTIVE Patient denies further episodes of hemoptysis. Last instance was on Thursday. No cough, shortness of breath, chest pain. Review of Systems Constitutional: Negative for chills and fever. Respiratory: Positive for cough and sputum production. Negative for hemoptysis, shortness of breathand wheezing. Cardiovascular: Negative for chest pain. Gastrointestinal: Negative for nausea and vomiting. OBJECTIVE Physical Exam Constitutional: General: He is not in acute distress. HENT: Head: Normocephalic and atraumatic. Eyes: Extraocular Movements: Extraocular movements intact. Cardiovascular: Rate and Rhythm: Normal rate. Pulmonary: Effort: No respiratory distress. Breath sounds: No wheezing or rhonchi. Comments: On room air. Skin: General: Skin is warm and dry. Neurological: General: No focal deficit present. Mental Status: He is alert and oriented to person, place, and time. Psychiatric: Mood and Affect: Mood normal. Thought Content: Thought content normal. Recent Vitals: Filed Vitals: 03/29/24 1207 03/29/24 1353 03/29/24 1957 03/30/24 0729 BP: 138/81 (!) 154/78 119/63 125/66 Pulse: 79 76 72 79 Resp: 18 17 Temp: 97.8 ??F (36.6 ??C) 98.1 ??F (36.7 ??C) 97.9 ??F (36.6 ??C) 97.7 ??F (36.5 ??C) TempSrc: Temporal Oral SpO2: 97% 95% 95% Medications: [START ON 03/31/2024] allopurinol 50 mg Oral Once per day on Thursday amiodarone 100 mg Oral Daily apixaban 5 mg Oral BID atorvastatin 20 mg Oral nightly benzonatate 200 mg Oral TID gabapentin 100 mg Oral BID heparin (porcine) 1,000 Units Intravenous Once insulin glargine 17 Units Subcutaneous Nightly at bedtime pantoprazole EC 40 mg Oral Daily paricalcitol 5 mcg Intravenous Once in dialysis sevelamer carbonate 800 mg Oral TID WC tranexamic acid (CYKLOKAPRON) 500 mg in sodium chloride (PF) 0.9 % 10 mL nebulizer solution 500 mg Nebulization TID PRN: albumin human, heparin (porcine), hydrALAZINE, ondansetron, polyethylene glycol, sodium chloride (PF) Labs: Recent Labs 03/28/24 1118 03/29/24 0406 03/30/24 0430 WBC 7.28 7.36 7.18 HGB 11.2* 10.3* 11.3* PLT 176 174 176 GLU 277* 204* -- BUN 74* 85* -- CR 6.65* 7.01* -- NA 136 134* -- K 4.4 4.2 -- CL 97* 101 -- CO2 28.3 24.5 -- ALT 13* -- -- AST 11* -- -- Micro: Microbiology Results (last 14 days) Procedure Component Value Units Date/Time OCCULT BLOOD, FECES [[id number]] Collected: 03/28/24 1210 Order Status: Completed Lab Status: Final result Updated: 03/28/24 121 Specimen: STOOL OCCULT BLOOD FECAL NEGATIVE TRINIDAD Goode [facility]ology 03/30/2024 Cosigned by Reyna Mcclellan MD at 03/30/2024 2:11 PM CDT Associated attestation - Reyna Pringle MD - 03/30/2024 2:11 PM CDT I, REYNA MCCLELLAN MD, participated in the care of this patient today and discussed the plan of care with YULY Schrader, who shared in this visit. I have reviewed the YULY's documentationand agree with the findings except as I have documented. I personally spent 15 minutes, caring for this patient. Will defer bronchoscopy for now as hemoptysis resolved. REYNA MCCLELLAN MD * Shamir Lowe RN - 03/30/2024 9:37 AM CDT 03/30/24 09 Interdisciplinary Group Conference Team Members Present Physician;Case/Care management;Nursing Physician present for group conference Alana Patient Current Status Paient current status Inpatient Barriers to Discharge Inpatient Review Barriers to Discharge Inpatient Administering IV meds;Other (Comment) Consult delay - follow up restarting eliquis Administering IV meds follow up herman Patient expects to be discharged to Patient expects to be discharged to: Home or Self care no new needs 0753 met with patient. [facility] in [place] does dialysis. No other needs now * Devyn Warner MD - 03/30/2024 9:09 AM CDT Images from the original note were not included. [facility] Hospitalist Progress note Chief Complain: Hemoptysis ASSESSMENT /PLAN: Patient is a 53-year-old male with past medical history of end-stage renal disease with hemodialysis on Thursday, mixed hyperlipidemia type 2 diabetes mellitus gout GERD presented [facility] with chief complaint of hemoptysis streaks of blood in his sputum after cough # Mild hemoptysis hemoglobin stable Monitor H&H Probably its all related to violent cough no evidence of pneumonia But never had hemoptysis before while being on Eliquis Hold Plavix [facility] pul consulted discussed with pulmonary no plans for bronc cough added TXA nebs 3 times daily but patient did not receive any dose they will check with pharmacy will resume Eliquis If no hemoptysis plan discharge tomorrow End-stage renal disease nephrology consulted undergoes hemodialysis Thursday A-fib rate controlled will hold Eliquis Hyperlipidemia continue statins Blood pressure stable Diabetes mellitus type 2 Accu-Cheks ACHS continue sliding scale insulin add Lantus as indicated Gout continue allopurinol GERD continue home medication DVT prophylaxis: CI given mild hemoptysis Code status: full code Code Status: Full Code Disposition/Discharge plan: 2 days I have ordered, reviewed and interpreted all Labs . I have reviewed and interpreted all Imaging . Ihave reviewed,ordered and prescribed all necessary medications. I have reviewed and interpreted allconsultant notes. Case was discussed w/ the patient and/or POA. All questions were answered & concerns addressed. Case was also discussed with case management AND NEGOTIATIONS DIRECTOR. DEVYN WARNER MD 9:09 AM 03/30/2024 SUBJECTIVE Patient seen and examined. No further courtney hemoptysis no chest pain or shortness of breath REVIEW OF SYSTEMS Negative for 12 system except mentioned SUBJECTIVE OBJECTIVE Wt Readings from Last 3 Encounters: 03/28/24 119.3 kg (263 lb) 02/27/24 120.4 kg (265 lb 6.9 oz) 02/25/24 117.9 kg (260 lb) Temp: 97.7 ??F (36.5 ??C) BP Readings from Last 3 Encounters: 03/30/24 125/66 03/28/24 132/75 02/27/24 125/67 Pulse Readings from Last 3 Encounters: 03/30/24 79 03/28/24 (!) 105 02/27/24 65 PHYSICAL EXAMINATION: General Appearance: Moderately built and nourished. Alert,oriented to time ,place and Person. Head: atraumatic, normocephalic. Eyes: Pupils equal and reactive to light. No discharge.no nystagmus. Ears: Normal Tympanic membrane and external ear canal . Throat: Lips, mucosa, and tongue,teeth and gums normal. Neck: Supple, symmetrical, trachea midline, no adenopathy; thyroid: No enlargement/tenderness/nodules; no carotid bruit or JVD Lungs: Clear to auscultation bilaterally, respirations unlabored . No wheeze or rhonchi present. Nochest wall tenderness. Heart: S1 and S2 normal, no murmur, rub or gallop . Abdomen: Soft,non-tender, bowel sounds active all four quadrants, no masses, no organomegaly detected. Extremities: Extremities normal, atraumatic, no cyanosis or edema or clubbing Pulses: 2+ and symmetric all extremities Lymph nodes: Cervical, supraclavicular, and axillary nodes normal Neurologic: CNII-XII intact. Normal strength in the upper extremities, normal in both lower extremities, sensation and reflexes normal throughout.no disdiadochokinesia LABS: Recent Labs 03/28/24 1118 03/29/24 0406 03/30/24 0430 WBC 7.28 7.36 7.18 HGB 11.2* 10.3* 11.3* HCT 33.6* 31.4* 34.5* MCV 99.7 100.3* 100.6* PLT 176 174 176 RBC 3.37* 3.13* 3.43* Recent Labs 03/28/24 1118 03/29/24 0406 ALT 13* -- AST 11* -- CO2 28.3 24.5 CL 97* 101 GLU 277* 204* K 4.4 4.2 NA 136 134* BUN 74* 85* Intake/Output Summary (Last 24 hours) at 03/30/2024 0909 Last data filed at 03/29/2024 1207 Gross per 24 hour Intake -- Output 2500 ml Net -2500 ml Microbiology Results (last 14 days) Procedure Component Value Units Date/Time OCCULT BLOOD, FECES [[id number]] Collected: 03/28/24 1210 Order Status: Completed Lab Status: Final result Updated: 03/28/24 1219 Specimen: STOOL OCCULT BLOOD FECAL NEGATIVE Radiology MEDICATIONS Scheduled medications [START ON 03/31/2024] allopurinol 50 mg Oral Once per day on Thursday amiodarone 100 mg Oral Daily atorvastatin 20 mg Oral nightly gabapentin 100 mg Oral BID heparin (porcine) 1,000 Units Intravenous Once heparin (porcine) 500 Units Intravenous Once insulin glargine 17 Units Subcutaneous Nightly at bedtime pantoprazole EC 40 mg Oral Daily paricalcitol 5 mcg Intravenous Once in dialysis sevelamer carbonate 800 mg Oral TID WC tranexamic acid (CYKLOKAPRON) 500 mg in sodium chloride (PF) 0.9 % 10 mL nebulizer solution 500 mg Nebulization TID Infusion PRN albumin human, heparin (porcine), hydrALAZINE, ondansetron, polyethylene glycol, sodium chloride (PF) * Eduard Hernandez RN - 03/30/2024 3:45 AM CDT Problem: Pain Goal: Patient's pain/discomfort is manageable Description: Assess and monitor patient's pain using appropriate pain scale. Collaborate with interdisciplinary team and initiate plan and interventions as ordered. Re-assess patient's pain level 30 - 60 minutes after pain management intervention. Outcome: Progressing Problem: Safety Goal: Patient will be injury free during hospitalization Description: Assess and monitor vitals signs, neurological status including level of consciousness and orientation. Assess patient's risk for falls and implement fall prevention plan of care and interventions per hospital policy. Ensure arm band on, uncluttered walking paths in room, adequate room lighting, call light and overbed table within reach, bed in low position, wheels locked, side rails up per policy, and non-skid footwear provided. Outcome: Progressing Problem: Daily Care Goal: Daily care needs are met Description: Assess and monitor ability to perform self care and identify potential discharge needs. Outcome: Progressing Problem: Psychosocial Needs Goal: Demonstrates ability to cope with hospitalization/illness Description: Assess and monitor patients ability to cope with his/her illness. Outcome: Progressing Problem: Reduced risk for falls/injury Goal: Reduced Risk for Falls/Injury Outcome: Progressing * Jolene Stevens, Xray Tech - 03/29/2024 12:37 PM CDT 03/29/24 1207 Post Treatment Note Post Treatment Note Patient completed 3.5hrs of HD with no issues and no complications Patient had a net fuid removal of 2.5L. All blood was returned to patient. AVF was positive for Bruit/Thrill. Patient was stable and endorsed back to primary RN. Vital Signs Temp 97.8 ??F (36.6 ??C) Temp src Temporal Pulse 79 Heart Rate Source Monitor Resp 18 BP 138/81 MAP Calculated 100 MM HG BP Location Right arm BP Method Automatic Patient Position Lying Cuff size Adult Large Post Treatment Weight Post-Treatment Weight (kg) 117.2 kg (258 lb 6.1 oz) Additonal Post Treatment Information Time Treatment Ended 1202 Dialyzer Cleared Good Blood Processed 86.5 Net UF removed 2500 Post Treatment Access AVF/AVG: Bleeding Stop Arterial 6 min AVF/AVG: Bleeding Stop Venous 6 min +Bruit Yes * Devyn Warner MD - 03/29/2024 9:32 AM CDT Images from the original note were not included. [employer] Hospitalist Progress note Chief Complain: Hemoptysis ASSESSMENT /PLAN: Patient is a 53-year-old male with past medical history of end-stage renal disease with hemodialysis on Thursday, mixed hyperlipidemia type 2 diabetes mellitus gout GERD presented [facility] facility with chief complaint of hemoptysis streaks of blood in his sputum after cough # Mild hemoptysis hemoglobin stable Monitor H&H Probably its all related to violent cough no evidence of pneumonia But never had hemoptysis before while being on Eliquis Hold Plavix SAMIRA pul consulted discussed with pulmonary no plans for bronc continue to hold Eliquis for now probably related to bronchitis and cough added TXA nebs 3 times daily End-stage renal disease nephrology consulted undergoes hemodialysis Thursday A-fib rate controlled will hold Eliquis Hyperlipidemia continue statins Blood pressure stable Diabetes mellitus type 2 Accu-Cheks ACHS continue sliding scale insulin add Lantus as indicated Gout continue allopurinol GERD continue home medication DVT prophylaxis: CI given mild hemoptysis Code status: full code Code Status: Full Code Disposition/Discharge plan: 2 days I have ordered, reviewed and interpreted all Labs . I have reviewed and interpreted all Imaging . Ihave reviewed,ordered and prescribed all necessary medications. I have reviewed and interpreted allconsultant notes. Case was discussed w/ the patient and/or POA. All questions were answered & concerns addressed. Case was also discussed with case management AND NEGOTIATIONS DIRECTOR. DVEYN WARNER MD 9:32 AM 03/29/2024 SUBJECTIVE Patient seen and examined. No further courtney hemoptysis no chest pain or shortness of breath REVIEW OF SYSTEMS Negative for 12 system except mentioned SUBJECTIVE OBJECTIVE Wt Readings from Last 3 Encounters: 03/28/24 119.3 kg (263 lb) 02/27/24 120.4 kg (265 lb 6.9 oz) 02/25/24 117.9 kg (260 lb) Temp: 97.4 ??F (36.3 ??C) BP Readings from Last 3 Encounters: 03/29/24 125/70 03/28/24 132/75 02/27/24 125/67 Pulse Readings from Last 3 Encounters: 03/29/24 80 03/28/24 (!) 105 02/27/24 65 PHYSICAL EXAMINATION: General Appearance: Moderately built and nourished. Alert,oriented to time ,place and Person. Head: atraumatic, normocephalic. Eyes: Pupils equal and reactive to light. No discharge.no nystagmus. Ears: Normal Tympanic membrane and external ear canal . Throat: Lips, mucosa, and tongue,teeth and gums normal. Neck: Supple, symmetrical, trachea midline, no adenopathy; thyroid: No enlargement/tenderness/nodules; no carotid bruit or JVD Lungs: Clear to auscultation bilaterally, respirations unlabored . No wheeze or rhonchi present. Nochest wall tenderness. Heart: S1 and S2 normal, no murmur, rub or gallop . Abdomen: Soft,non-tender, bowel sounds active all four quadrants, no masses, no organomegaly detected. Extremities: Extremities normal, atraumatic, no cyanosis or edema or clubbing Pulses: 2+ and symmetric all extremities Lymph nodes: Cervical, supraclavicular, and axillary nodes normal Neurologic: CNII-XII intact. Normal strength in the upper extremities, normal in both lower extremities, sensation and reflexes normal throughout.no disdiadochokinesia LABS: Recent Labs 03/28/24 1118 03/29/24 0406 WBC 7.28 7.36 HGB 11.2* 10.3* HCT 33.6* 31.4* MCV 99.7 100.3* PLT 176 174 RBC 3.37* 3.13* Recent Labs 03/28/24 1118 03/29/24 0406 ALT 13* -- AST 11* -- CO2 28.3 24.5 CL 97* 101 GLU 277* 204* K 4.4 4.2 NA 136 134* BUN 74* 85* No intake or output data in the 24 hours ending 03/29/24 0932 Microbiology Results (last 14 days) Procedure Component Value Units Date/Time OCCULT BLOOD, FECES [[id number]] Collected: 03/28/24 1210 Order Status: Completed Lab Status: Final result Updated: 03/28/24 1219 Specimen: STOOL OCCULT BLOOD FECAL NEGATIVE Radiology MEDICATIONS Scheduled medications [START ON 03/31/2024] allopurinol 50 mg Oral Once per day on Thursday amiodarone 100 mg Oral Daily atorvastatin 20 mg Oral nightly gabapentin 100 mg Oral BID heparin (porcine) 1,000 Units Intravenous Once heparin (porcine) 500 Units Intravenous Once insulin glargine 17 Units Subcutaneous Nightly at bedtime pantoprazole EC 40 mg Oral Daily paricalcitol 5 mcg Intravenous Once in dialysis sevelamer carbonate 800 mg Oral TID WC Infusion PRN albumin human, heparin (porcine), hydrALAZINE, polyethylene glycol, sodium chloride (PF) * Shamir Lowe RN - 03/29/2024 7:42 AM CDTSummary: assessment 03/29/24 0742 Referral Data Source of Information Patient Patient Information Primary Caregiver Self;Family Current living Situation Alone Type of Residence Private residence Support System Immediate family Are you employed? 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 The screening is to screen the patient for what services and destination would be beneficial for patient for next level of care Conversation with the patient/family Will the patient be returning to prior living situation with no new identified needs? Yes Based on the screening the [place] plan for consideration is: Patient expects to be discharged to: Home or Self care no new needs Adequate Resources Available Adequate Resources Yes [place] Only - Criminal Background check [place] only - Is patient going to longterm? No Met with patient at bedside to introduce self and role, pt is agreeable to completing assessment. Pt is A&O, lives alone and is independent with the use of a wheelchair and four wheeled walker and has sister thru DRS for 26 hours a week or 100 hours a month. Pt plans to discharge home. Will need ride at discharge PCP: Dr Carine Maxwell Pharmacy: [facility] 03/29/24 0952 Interdisciplinary Group Conference Team Members Present Physician;Case/Care management;Nursing Physician present for group conference Alana Patient Current Status Paient current status Inpatient Barriers to Discharge Inpatient Review Barriers to Discharge Inpatient Consult delay- incomplete Consult delay - follow up pulmonary consult and nephro Patient expects to be discharged to Patient expects to be discharged to: Home or Self care no new needs * Rolan Simon MD - 03/29/2024 5:24 AM CDT Will arrange hd today. Full consult note to follow * Eduard Hernandez RN - 03/29/2024 12:15 AM CDT Problem: Pain Goal: Patient's pain/discomfort is manageable Description: Assess and monitor patient's pain using appropriate pain scale. Collaborate with interdisciplinary team and initiate plan and interventions as ordered. Re-assess patient's pain level 30 - 60 minutes after pain management intervention. Outcome: Progressing Problem: Safety Goal: Patient will be injury free during hospitalization Description: Assess and monitor vitals signs, neurological status including level of consciousness and orientation. Assess patient's risk for falls and implement fall prevention plan of care and interventions per hospital policy. Ensure arm band on, uncluttered walking paths in room, adequate room lighting, call light and overbed table within reach, bed in low position, wheels locked, side rails up per policy, and non-skid footwear provided. Outcome: Progressing Problem: Daily Care Goal: Daily care needs are met Description: Assess and monitor ability to perform self care and identify potential discharge needs. Outcome: Progressing Problem: Psychosocial Needs Goal: Demonstrates ability to cope with hospitalization/illness Description: Assess and monitor patients ability to cope with his/her illness. Outcome: Progressing Problem: Reduced risk for falls/injury Goal: Reduced Risk for Falls/Injury Outcome: Progressing * Raymond Mccain MD - 03/28/2024 2:05 PM CDT Accept Note Facility: [facility] ED 53yo with ESRD on TTS HD schedule, presents with hemoptysis after coughing the last couple days. Mostly blood tinged sputum, largest episode maybe a teaspoon. None noted while pt in ED. CTA neg for PE, shows some coronary calcifications, gynecomastia. Pt's last eliquis dose this AM. Labs Na 136, K 4.4, Bun 74, Cr 6.65, INR 1.5, WBC 7.28, Hb 11.2, PLT 176. Will admit to obs. VSS. 97 percent on RA. Consults: I notified Dr Simon regarding pt's admit and need for HD tomorrow AM. He will see the patient documented in this encounter H&P Notes * Devyn Warner MD - 03/28/2024 6:04 PM CDT Images from the original note were not included. [employer] Hospitalist H&P Note Attending Provider: Raymond Mccain MD PCP: MERY MAXWELL MD Aaron Campos is an 53-year-old male. Reason for Admission: Hemoptysis Assessment/Plan: Patient is a 53-year-old male with past medical history of end-stage renal disease with hemodialysis on Thursday, mixed hyperlipidemia type 2 diabetes mellitus g[facility] chief complaint of hemoptysis streaks of blood in his sputum after cough # Mild hemoptysis hemoglobin stable Monitor H&H Probably its all related to violent cough no evidence of pneumonia But never had hemoptysis before while being on Eliquis Hold Eliquis Hold Plavix Will get pulmonary consult in a.m. monitor closely End-stage renal disease nephrology consulted undergoes hemodialysis Thursday A-fib rate controlled will hold Eliquis Hyperlipidemia continue statins Blood pressure elevated add as needed hydralazine according to patient it is never elevated will watch closely Diabetes mellitus type 2 Accu-Cheks ACHS continue sliding scale insulin add Lantus as indicated Gout continue allopurinol GERD continue home medication DVT prophylaxis: CI given mild hemoptysis Code status: full code Disposition/Discharge plan: 2-3 days Advance Care Planning Note - I discussed goals of care and medical treatment wishes based on pts preferences and value for thediagnosis as mentioned above - We discussed advanced directives including DNR and I answered questions and completed a POLST FORM. Patient wishes to be a full code - This meeting was conducted with pt and me We spent 16 minutes today I have ordered, reviewed and interpreted all Labs . I have ordered reviewed and interpreted all necessary Imaging . I have reviewed, ordered and prescribed all the necessary Medications. I have reviewed Cement Car Dumper notes. Case was discussed w/ the patient and/or POA. All questions were answered & concerns addressed. DEVYN WARNER MD 03/28/2024 6:04 PM HPI: Patient is a 53-year-old male with past medical history of end-stage renal disease with hemodialysis on Thursday, mixed hyperlipidemia type 2 diabetes mellitus gout GERD presented to [facility] facility with chief complaint of hemoptysis patient started noticing pinkish sputum after coughing episode couple of days ago saw streaks of blood last night which was more than usual about 1 teaspoon ended up in the hospital today denied any chest pain or shortness of breath no feverno chills no nausea vomiting no recent upper respiratory tract infection patient is on Eliquis. INR1.5 patient is compliant with his Eliquis. CTA chest negative for PE. patient denies any headache, black tarry stool or hematochezia or nosebleed Review of System: Negative for 12 system except mentioned in HPI PHYSICAL EXAM: Filed Vitals: 03/28/24 1724 BP: (!) 175/87 Pulse: 79 Temp: 97.8 ??F (36.6 ??C) TempSrc: Oral SpO2: 100% General Appearance: Moderately built and nourished. Alert,oriented to time ,place and Person. Head: atraumatic, normocephalic. Eyes: Pupils equal and reactive to light. No discharge.no nystagmus. Ears: Normal Tympanic membrane and external ear canal . Throat: Lips, mucosa, and tongue,teeth and gums normal. Neck: Supple, symmetrical, trachea midline, no adenopathy; thyroid: No enlargement/tenderness/nodules; no carotid bruit or JVD Lungs: Clear to auscultation bilaterally, respirations unlabored . No wheeze or rhonchi present. Nochest wall tenderness. Heart: S1 and S2 normal, no murmur, rub or gallop . Abdomen: Soft,non-tender, bowel sounds active all four quadrants, no masses, no organomegaly detected. Extremities: Extremities normal, atraumatic, no cyanosis or edema or clubbing Pulses: 2+ and symmetric all extremities Lymph nodes: Cervical, supraclavicular, and axillary nodes normal Neurologic: CNII-XII intact. Normal strength in the upper extremities, normal in both lower extremities, sensation and reflexes normal throughout.no disdiadochokinesia Past Medical History: Diagnosis Date A-fib ([facility]) Constipation Diabetes mellitus ([facility]) ESRD (end stage renal disease) ([facility]) GERD (gastroesophageal reflux disease) Gout, unspecified High cholesterol Neuropathy 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[facility]) Renal disorder Social History Tobacco Use Smoking [...] tablet (20 mg total) by mouth daily. B-D UF III MINI PEN NEEDLES [facility] X [facility] S[facility]E U/F 31G X 15/64 0.5 ML [facility] Glucose Transmitter (DEXCOM G6 TRANSMITTER) Misc ELIQUIS 5 MG tablet Take 1 tablet [...] mouth 3 (three) times daily withmeals for 60 days. (Patient taking differently: Take 1 tablet (10 mg total) by mouth 3 (three) times daily with meals. Taking prn) pantoprazole EC (PROTONIX) 40 MG tablet Take 1 tablet (40 mg total) by mouth 2 (two) times a day. sevelamer carbonate (RENVELA) 800 MG tablet Take 1 tablet (800 mg total) by mouth 3 (three) times daily with meals. traMADol (ULTRAM) 50 MG tablet Indications: Acute Pain < 7 Day Supply 1-2 every 6 hours as needed for pain TRUE METRIX BLOOD GLUCOSE TEST test strip use 1 strip to check glucose three times daily Allergies: Allergies Allergen Reactions Amoxicillin Hives Laboratory data and imaging: Results for orders placed or performed during the hospital encounter of 03/28/24 CBC W/DIFF AUTOMATED Result Value Ref Range WBC 7.28 4.00 - 10.80 x10'3/uL RBC 3.37 (L) 4.50 - 6.10 x10'6/uL HGB 11.2 (L) 13.0 - 18.0 G/DL HCT 33.6 (L) 37.0 - 52.0 % MCV 99.7 78.0 - 100.0 FL MCH 33.2 (H) 27.0 - 31.0 PG MCHC 33.3 33.0 - 36.0 G/DL RDW 13.3 11.5 - 14.5 % PLT 176 150 - 350 x10'3/uL MPV 9.5 7.4 - 10.4 FL CBC COMMENT NORMAL REFERENCE RANGE NOT ESTABLISHED FOR THE PROPORTIONAL LEUKOCYTE DIFFERENTIAL. NEUTROPHILS % 76.3 % LYMPHOCYTES % 15.0 % MONOCYTES % 5.2 % EOSINOPHILS % 2.1 % BASOPHILS % 0.7 % IMMATURE GRANS % 0.7 % NRBC % 0.0 % ABS. NEUTROPHILS 5.56 1.60 - 8.30 x10'3/uL ABS. LYMPHOCYTES 1.09 0.80 - 4.70 x10'3/uL ABS. MONOCYTES 0.38 0.00 - 1.50 x10'3/uL ABS. EOSINOPHILS 0.15 0.00 - 0.40 x10'3/uL ABS. BASOPHILS 0.05 0.00 - 0.20 x10'3/uL ABS. IMMATURE GRANULOCYTES 0.05 (H) 0.00 - 0.03 x10'3/uL ABS. NUCLEATED RBC'S 0.00 0.00 - 0.01 x10'3/uL PROTIME/INR, VENOUS Result Value Ref Range PROTIME 16.8 (H) 9.4 - 12.5 SEC INR 1.5 (H) 0.8 - 1.0 PARTIAL THROMBOPLASTIN TIME,PTT Result Value Ref Range PTT 35.4 25.1 - 36.5 SEC COMPREHENSIVE METABOLIC PANEL Result Value Ref Range SODIUM S/P/B 136 136 - 145 MMOL/L POTASSIUM S/P/B 4.4 3.5 - 5.1 MMOL/L CHLORIDE S/P/B 97 (L) 98 - 107 MMOL/L CO2 28.3 21.0 - 32.0 MMOL/L GLUCOSE 277 (H) 70 - 99 MG/DL BUN 74 (H) 6 - 24 MG/DL CREATININE S/P/B 6.65 (H) 0.70 - 1.30 MG/DL CALCIUM S/P/B 9.7 8.4 - 10.5 MG/DL BILIRUBIN TOTAL S/P/B 0.5 0.2 - 1.0 MG/DL ALKALINE PHOSPHATASE S/P/B 56 45 - 115 U/L AST 11 (L) 15 - 37 U/L ALT 13 (L) 16 - 63 U/L TOTAL PROTEIN S/P/B 7.6 6.4 - 8.2 G/DL ALBUMIN S/P/B 3.3 (L) 3.4 - 5.0 G/DL ANION GAP 10.7 5.0 - 15.0 MMOL/L OSMOLALITY (CALC) 314 MOSM/KG GFR ESTIMATE 9 (L) >89 ML/MIN/1.73 M2 GFR NOTES GFR REFERENCES: OCCULT BLOOD, FECES Result Value Ref Range OCCULT BLOOD FECAL NEGATIVE NEGATIVE No results for input(s): TROP , TROPIWB in the last 168 hours. No results found for this visit on 03/28/24. No orders to display documented in this encounter Consult Notes * Jessenia Brush, COMMISSIONER OF CONCILIATION - 03/29/2024 1:02 PM CDTAssociated Order(s): IP CONSULT TO PULMONOLOGY SAMIRA PULMONOLOGY CONSULT NOTE Reason for admission: Hemoptysis [R04.2] Reason for consult: Hemoptysis HPI Aaron Campos is a 53-year-old male, with history of Afib (on Eliquis), DM2, ESRD (on HD TTS), HLD, GERD, and gout. Former smoker, quit 25 years ago. Smoked 1/2 ppd x 10+ years. Patient presented to [facility] 03/28 with complaints of hemoptysis for a couple of days. He displayed a picture of this on his phone, appears to be streaks of bright red blood mixed with sputum. Estimates amount is no more than 1 teaspoon. No episodes of hemoptysis since yesterday. Patient has not previously had hemoptysis. Denies other bleeding. He is on Eliquis for his A-fib, which has been held. CTAchest was negative for PE. No acute pulmonary abnormality seen. ASSESSMENT AND PLAN SAMIRA Pulmonology consulted for hemoptysis. Patient does not report recent illness with increased cough. No active bleeding noted. No blood in stool or urine. No epistaxis. CT chest with no abnormalities evident that could be a source of bleeding. Suspect bleeding 2/2 bronchitis, exacerbated by Eliquis. Active Problems # Hemoptysis # ESRD on HD TTS # Afib on Eliquis, currently held due to hemoptysis # Former smoker Pertinent Workup CTA chest PE protocol: 1. Negative for pulmonary embolism as described. 2. Coronary artery disease. 3. Bilateral gynecomastia. Echo 09/03/23: Mild concentric left ventricular hypertrophy. The left ventricular systolic function is hyperdynamic. The calculated ejection fraction is 71%. The right ventricular size is probably normal. Right ventricular systolic function appears normal. The left atrial volume is moderately increased. No significant valvular abnormalities identified. 03/28 FOBT: negative 03/29 H/H: 10.09/12.4 SAMIRA Pulmonology Recommendations - Reviewed CTA chest. No evidence of pneumonia, PE, or other abnormality that could be source of hemoptysis. Suspect it is 2/2 to cough/bronchitis. Agree with holding Eliquis at this time. - TXA nebs ordered TID. - Continue to monitor for further hemoptysis. No indication for intervention. If patient's hemoptysis worsens, may consider bronchoscopy. Thank you for the consult. We will continue to follow. SUBJECTIVE Chief Complaint: Hemoptysis Past Medical History: Diagnosis Date A-fib ([facility]) Constipation Diabetes mellitus [facility] [facility]) ESRD (end stage renal disease) ([facility]) GERD (gastroesophageal reflux disease) Gout, unspecified High cholesterol Neuropathy 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[facility]) Renal disorder Past Surgical History: Procedure Laterality Date FISTULA CANNULATION SET, EA TONSILLECTOMY Social History Tobacco Use Smoking status: Former Current packs/day: 1.00 Average packs/day: 1 pack/day for 15.0 years (15.0 ttl pk-yrs) Types: Cigarettes Smokeless tobacco: Never Vaping Use Vaping status: Never Used Substance Use Topics Alcohol use: Not Currently Drug use: Not Currently Family History Problem Relation Name Age of Onset Diabetes Mother Hypertension Mother Hypertension Father Diabetes Father Alzheimer's disease Father Diabetes Sister Allergies Allergen Reactions Amoxicillin Hives Review of Systems Constitutional: Negative for chills and fever. Respiratory: Positive for cough, hemoptysis and sputum production. Negative for shortness of breathand wheezing. Cardiovascular: Negative for chest pain. Gastrointestinal: Negative for nausea and vomiting. Musculoskeletal: Negative for joint pain. Skin: Negative for rash. OBJECTIVE Physical Exam Constitutional: General: He is not in acute distress. HENT: Head: Normocephalic and atraumatic. Eyes: Extraocular Movements: Extraocular movements intact. Cardiovascular: Rate and Rhythm: Normal rate. Pulmonary: Effort: No respiratory distress. Breath sounds: No wheezing or rhonchi. Comments: On room air. Left lower lobe crackles. Skin: General: Skin is warm and dry. Neurological: General: No focal deficit present. Mental Status: He is alert and oriented to person, place, and time. Psychiatric: Mood and Affect: Mood normal. Thought Content: Thought content normal. Recent Vitals: Filed Vitals: 03/29/24 1130 03/29/24 1200 03/29/24 1202 03/29/24 1207 BP: 130/54 104/67 118/72 138/81 Pulse: 78 80 82 79 Resp: 18 Temp: 97.8 ??F (36.6 ??C) TempSrc: Temporal SpO2: Medications: [START ON 03/31/2024] allopurinol 50 mg Oral Once per day on Thursday amiodarone 100 mg Oral Daily atorvastatin 20 mg Oral nightly gabapentin 100 mg Oral BID heparin (porcine) 1,000 Units Intravenous Once heparin (porcine) 500 Units Intravenous Once insulin glargine 17 Units Subcutaneous Nightly at bedtime pantoprazole EC 40 mg Oral Daily paricalcitol 5 mcg Intravenous Once in dialysis sevelamer carbonate 800 mg Oral TID WC tranexamic acid (CYKLOKAPRON) 500 mg in sodium chloride (PF) 0.9 % 10 mL nebulizer solution 500 mg Nebulization TID PRN: albumin human, heparin (porcine), hydrALAZINE, polyethylene glycol, sodium chloride (PF) Labs: Recent Labs 03/28/24 1118 03/29/24 0406 WBC 7.28 7.36 HGB 11.2* 10.3* PLT 176 174 GLU 277* 204* BUN 74* 85* CR 6.65* 7.01* NA 136 134* K 4.4 4.2 CL 97* 101 CO2 28.3 24.5 ALT 13* -- AST 11* -- Micro: Microbiology Results (last 14 days) Procedure Component Value Units Date/Time OCCULT BLOOD, FECES [[id number]] Collected: 03/28/24 1210 Order Status: Completed Lab Status: Final result Updated: 03/28/24 1219 Specimen: STOOL OCCULT BLOOD FECAL NEGATIVE [facility] Pulmon[facility] 03/29/2024 Cosigned by Reyna Mcclellan MD at 03/29/2024 3:06 PM CDT Associated attestation - Reyna Pringle MD - 03/29/2024 3:06 PM CDT I, REYNA MCCLELLAN MD, participated in the Consultation of this patient today and discussedthe diagnostic tests, plan of care and treatment plan with Jessenia Clarke, YULY, who shared in this visit. I performed a physical examination of the patient, reviewed the YULY's documentation, and agree with the findings except as I have documented. I personally spent 20 minutes, caring for this patient. Will consider bronchoscopy if hemoptysis continues or worsens. Agree with assessment and plans outlined by Ms. Brush. REYNA MCCLELLAN MD * Rolan Simon MD - 03/29/2024 2:00 AM CDT [facility] ESRD New Consult Date of Consult: 03/29/2024 Reason for request : Hemodialysis in ESRD patient. HISTORY OF PRESENT ILLNESS Aaron Campos is a 53-year-old male with underlying history of end-stage renal disease on hemodialysis on a TTS schedule, normally receives dialysis at [facility] on Eliquis [5 twice daily],diabetes, hypertension, heart failure with reduced EF and tendency for hypotension requiring midodrine on dialysis who now comes in with an episode of hemoptysis. He underwent a CTA chest which was negative for PE. No other signs of systemic bleeding. No reported hemoptysis or hematemesis. Negativecontact history Denies any contact history. No adjustment in heparin on dialysis schedule. He has been on Eliquis 5twice daily for his underlying A-fib. Of note recent hospitalization last month with hypotension for which she was started on midodrine. Review of Systems: Negative except as described above. Does not have any symptoms suggestive of pneumonia/[facility]TI PAST MEDICAL AND SURGICAL HISTORY Past Medical History: Diagnosis Date A-fib ([facility]) Constipation Diabetes mellitus ([facility]) ESRD (end stage renal disease) ([facility]) GERD (gastroesophageal reflux disease) Gout, unspecified High cholesterol Neuropathy 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[facility]) Renal disorder Past Surgical History: Procedure Laterality Date FISTULA CANNULATION SET, EA TONSILLECTOMY FAMILY HISTORY Family History Problem Relation Name Age of Onset Diabetes Mother Hypertension Mother Hypertension Father Diabetes Father Alzheimer's disease Father Diabetes Sister SOCIAL HISTORY Social History Socioeconomic History Marital status: Spouse [...] Social History Narrative Not on file Social Drivers of Health Financial Resource Strain: Low Risk (03/28/2024) Overall Financial Resource Strain (CARDIA) Difficulty of Paying Living Expenses: Not very hard Food Insecurity: No Food Insecurity (03/28/2024) Hunger Vital Sign Worried About Running Out of Food in the Last Year: Never true Ran Out of Food in the Last Year: Never true Transportation Needs: No Transportation Needs (03/28/2024) PRAPARE - Transportation Lack of Transportation (Medical): No Lack of Transportation (Non-Medical): No Physical Activity: Not on file Stress: Not on file Social Connections: Feeling Socially Integrated (06/14/2023) Received from [facility] OASIS [id number]: Social Isolation Frequency of experiencing loneliness or isolation: Rarely Intimate Partner Violence: Not At Risk (03/28/2024) Humiliation, Afraid, Rape, and Kick questionnaire Fear of Current or Ex-Partner: No Emotionally Abused: No Physically Abused: No Sexually Abused: No Housing Stability: High Risk (03/28/2024) Housing Stability Vital Sign Unable to Pay for Housing in the Last Year: No Number of Times Moved in the Last Year: 2 Homeless in the Last Year: No I have read and reviewed all past medical, surgical, family and social history and I agree with all. MEDICATIONS: Home Medications: Prior to Admission medications Medication Sig Start Date End Date Taking? Authorizing Provider allopurinol (ZYLOPRIM) 100 MG tablet Take 1 tablet (100 mg total) by mouth 2 (two) times daily. 08/03/23 Yes Default History Genericprovider amiodarone (PACERONE) 200 MG tablet Take 0.5 tablets (100 mg total) by mouth daily. 02/03/24 Yes Martha Ramirez, ANP-BC atorvastatin (LIPITOR) 20 MG tablet Take 1 tablet (20 mg total) by mouth daily. 08/03/23 Yes DefaultHistory Genericprovider B-D UF III MINI PEN NEEDLES 31G X 5 MM [facility]/02[place]24 Yes Default History Genericprovider BD VEO INSULIN SYRINGE U/F 31G X 15/64 0.5 ML [facility] 11/17/23 Yes Default History Genericprovider Continuous Glucose Transmitter (DEXCOM G6 TRANSMITTER) [facility]/08/24 Yes Default History Genericprovider ELIQUIS 5 MG tablet Take 1 tablet (5 mg total) by mouth 2 (two) times daily. 08/03/23 Yes Default History Genericprovider gabapentin (NEURONTIN) 100 MG capsule Take 1 capsule (100 mg total) by mouth 2 (two) times a day. 08/03/23 Yes Default History Genericprovider insulin lispro, 1 Unit Dial, (HUMALOG) 100 UNIT/ML injection (PEN) Inject 10 Units into the skin 3 (three) times daily before meals. 12/17/22 Yes Default History Genericprovider LANTUS SOLOSTAR 100 UNIT/ML injection (PEN) Inject 17 Units into the skin nightly at bedtime. 08/03/23 Yes Default History Genericprovider midodrine (PROAMATINE) 10 MG tablet Take 1 tablet (10 mg total) by mouth 3 (three) times daily withmeals for 60 days. Patient taking differently: Take 1 tablet (10 mg total) by mouth 3 (three) times daily with meals. Taking prn 02/27/24 04/27/24 Yes Raymond Mccain MD pantoprazole EC (PROTONIX) 40 MG tablet Take 1 tablet (40 mg total) by mouth 2 (two) times a day. 03/16/24 Yes Default History Genericprovider sevelamer carbonate (RENVELA) 800 MG tablet Take 1 tablet (800 mg total) by mouth 3 (three) times daily with meals. 03/16/24 Yes Default History Genericprovider traMADol (ULTRAM) 50 MG tablet Indications: Acute Pain < 7 Day Supply 1-2 every 6 hours as needed for pain 08/19/23 Yes Aaron Mosher MD TRUE METRIX BLOOD GLUCOSE TEST test strip use 1 strip to check glucose three times daily 02/01/24 Yes Default History Genericprovider Current Hospital Medications: Scheduled: [START ON 03/31/2024] allopurinol 50 mg Oral Once per day on Thursday amiodarone 100 mg Oral Daily atorvastatin 20 mg Oral nightly gabapentin 100 mg Oral BID heparin (porcine) 1,000 Units Intravenous Once heparin (porcine) 500 Units Intravenous Once insulin glargine 17 Units Subcutaneous Nightly at bedtime pantoprazole EC 40 mg Oral Daily paricalcitol 5 mcg Intravenous Once in dialysis sevelamer carbonate 800 mg Oral TID WC Continuous Infusions: Allergies: Review of patient's allergies indicates: Amoxicillin OBJECTIVE: No intake or output data in the 24 hours ending 03/29/24 1008 Physical Exam: Alert, awake and appropriate HEENT: Normal conjunctivae CVS: S1 and S2 normal. Pulmonary: No overt respiratory distress GI: Abdomennondistended. Lower Extremities: No edema. 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 Access: AVF, AVG Labs: Recent Labs Lab 03/28/24 1118 03/29/24 0406 WBC 7.28 7.36 HGB 11.2* 10.3* HCT 33.6* 31.4* MCV 99.7 100.3* No results found for: IRON , IRONSAT , FERRITIN , FOLATE Assessment & Plan: Aaron Campos is a 53-year-old male with ESRD secondary to hypertension and diabetes who normallyreceives dialysis on a TTS schedule at [place] now comes in with a single episode of hemoptysis.He shows me a picture of the same which shows streaks of blood. No visible clot noted - ESRD: on 3 day a week schedule.T / / THU. HD today He does not appear to be floridly overloaded I cannot attribute this to pulmonary edema - Hypertension: Patient was earlier on carvedilol which had to be discontinued on his last hospitalization on 03/08 due to presentation with hypotension. Has required intradialytic midodrine - Anemia: Hb is Stable - Volume status: Euvolemic. We will ultrafiltrate pt as tolerated. - Metabolic acidosis: We will adjust bicarbonate in dialysate to correct this. -Hemoptysis; noted that he has been taken off Eliquis and Plavix. He has been ruled out for PE. He does not have any symptoms suggestive of an infectious process. His age of presentation is unusual for ANCA vasculitis. Thank you for this consult. 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 [facility]-[address] [place] [id number] [address] [id number] documented as of this encounter Goals Goal [...] Routine 03/29/2024 1:50 PM CDT HEPATITIS B SURFACE AG, EIA Routine 03/29/2024 7:49 AM CDT HEPATITIS B SURFACE ANTIBODY Routine 03/29/2024 7:49 AM CDT HEPATITIS B CORE ANTIBODY Routine 03/29/2024 7:49 AM CDT POCT GLUCOSE - PERES DOCKED DEVICE Routine 03/29/2024 6:34 AM CDT BASIC METABOLIC PANEL Routine 03/29/2024 4:06 AM CDT CBC W/DIFF AUTOMATED Routine 03/29/2024 4:06 AM CDT POCT GLUCOSE - PERES DOCKED DEVICE Routine 03/28/2024 8:54 PM CDT documented in this encounter Results * (ABNORMAL) POCT glucose (03/31/2024 1:11 PM CDT) GLUCOSE POC 130(H) 70 - 109 03/31/2024 1:14 PM CDT [facility] 03/31/2024 1:11 PM CDT us Devyn Warner MD POCT ORDERABLES - DEVICE Fin al Result Performing Organization Address [facility] Co de Phone Number [facility] [address] [place] [address], [place] [phone] * (ABNORMAL) POCT glucose (03/31/2024 6:14 AM CDT) GLUCOSE POC 186(H) 70 - 109 03/31/2024 6:17 AM CDT [facility] 03/31/2024 6:14 AM CDT us Devyn Warner MD POCT ORDERABLES - DEVICE Fin al Result Performing Organization Address [facility] de Phone Number [facility] [address] [place] [address], [place] [phone] * (ABNORMAL) POCT glucose (03/30/2024 8:47 PM CDT) GLUCOSE POC 213(H) 70 - 109 03/30/2024 9:00 PM CDT [facility] 03/30/2024 8:47 PM CDT us Devyn Warner MD POCT ORDERABLES - DEVICE Fin al Result Performing Organization Address [facility] Co de Phone Number [facility] [address] [place] [address], [place] [phone] * (ABNORMAL) POCT glucose (03/30/2024 4:34 PM CDT) GLUCOSE POC 212(H) 70 - 109 03/30/2024 4:43 PM CDT [facility] 03/30/2024 4:34 PM CDT us Devyn Warner MD POCT ORDERABLES - DEVICE Fin al Result Performing Organization Address [facility]/ZIP Co de Phone Number [facility] [address] [place] [address], [place] [phone] * (ABNORMAL) POCT glucose (03/30/2024 11:16 AM CDT) GLUCOSE POC 217(H) 70 - 109 03/30/2024 11:27 AM CDT [facility] 03/30/2024 11:1 6 AM CDT us Devyn Warner MD POCT ORDERABLES - DEVICE Fin al Result Performing Organization Address [facility] de Phone Number [facility] [address] [place] [address], [place] [phone] * (ABNORMAL) POCT glucose (03/30/2024 5:58 AM CDT) GLUCOSE POC 219(H) 70 - 109 03/30/2024 5:59 AM CDT [facility] 03/30/2024 5:58 AM CDT us Devyn Warner MD POCT ORDERABLES - DEVICE Fin al Result Performing Organization Address [facility] de Phone Number [facility] [address] [place] [address], [place] [phone] * (ABNORMAL) CBC W/DIFF AUTOMATED (03/30/2024 4:30 AM CDT) WBC 7.18 4.00 - 10.80 x10'3/uL 03/30/2024 5:00 AM CDT [facility] RBC 3.43(L) 4.50 - 6.10 x10'6/uL 03/30/2024 5:00 AM CDT [facility] HGB 11.3(L) 12.0 - 16.0 G/DL 03/30/2024 5:00 AM CDT [facility] HCT 34.5(L) 37.0 - 52.0 % 03/30/2024 5:00 AM CDT [facility] MCV 100.6(H) 78.0 - 100.0 FL 03/30/2024 5:00 AM CDT [facility] MCH 32.9(H) 27.0 - 31.0 PG 03/30/2024 5:00 AM CDT [facility] MCHC 32.8(L) 33.0 - 36.0 G/DL 03/30/2024 5:00 AM CDT [facility] RDW 13.7 11.5 - 14.5 % 03/30/2024 5:00 AM CDT [facility] PLT 176 150 - 350 x10'3/uL 03/30/2024 5:00 AM CDT [facility] MPV 9.7 7.4 - 10.4 FL 03/30/2024 5:00 AM CDT [facility] DIFFERENTIAL TYPE AUTOMATED DIFFERENTIAL 03/30/2024 5:00 AM CDT [facility] SEG NEUTROPHILS 63.2 % 5:00 AM CDT [facility] LYMPHOCYTES 24.0 % 03/30/2024 5:00 AM CDT [facility] MONOCYTES 8.1 % 03/30/2024 5:00 AM CDT [facility] EOSINOPHILS 3.2 % 03/30/2024 5:00 AM CDT [facility] BASOPHILS 0.7 % 03/30/2024 5:00 AM CDT [facility] IMMATURE GRANS % 0.8 % 03/30/20 5:00 AM CDT [facility] ABS. NEUTROPHILS 4.54 1.60 - 8.30 x10'3/uL 03/30/2024 5:00 AM CDT [facility] ABS. LYMPHOCYTES 1.72 0.80 - 4.70 x10'3/uL 03/30/2024 5:00 AM CDT [facility] ABS. MONOCYTES 0.58 0.00 - 1.50 x10'3/uL 03/30/2024 5:00 AM CDT [facility] ABS. EOSINOPHILS 0.23 0.00 - 0.40 x10'3/uL 03/30/2024 5:00 AM CDT [facility] ABS. BASOPHILS 0.05 0.00 - 0.20 x10'3/uL 03/30/2024 5:00 AM CDT [facility] ABS. IMMATURE GRANULOCYTES 0.06(H) 0.00 - 0.03 x10'3/uL 03/30/2024 5:00 AM CDT [facility] ABS. NUCLEATED RBC'S 0.00 0.00 - 0.01 x10'3/uL 03/30/2024 5:00 AM CDT [facility] NRBC % 0.0 % 03/30/2024 5:00 AM CDT [facility] 03/30/2024 4:30 AM CDT us Devyn Wanrer MD LABORATORY Final Result [facility] [address] [place] [address], [id number] * (ABNORMAL) POCT glucose (03/29/2024 8:44 PM CDT) [facility] GLUCOSE POC 244(H) 70 - 109 03/29/2024 8:46 PM CDT [facility] 03/29/2024 8:44 PM CDT us Devyn Warner MD POCT ORDERABLES - DEVICE Fin al Result Performing Organization Address [facility] de Phone Number [facility] [address] [place] [address], [place] [phone] * (ABNORMAL) POCT glucose (03/29/2024 4:22 PM CDT) GLUCOSE POC 190(H) 70 - 109 03/29/2024 5:05 PM CDT [facility] 03/29/2024 4:22 PM CDT us Devyn Warner MD POCT ORDERABLES - DEVICE Fin al Result Performing Organization Address [facility] de Phone Number [facility] [address] [place] [address], [place] [phone] * (ABNORMAL) POCT glucose (03/29/2024 1:50 PM CDT) GLUCOSE POC 130(H) 70 - 109 03/29/2024 1:55 PM CDT [facility] 03/29/2024 1:50 PM CDT us Devyn Warner MD POCT ORDERABLES - DEVICE Fin al Result Performing Organization Address [facility] de Phone Number [facility] [address] [place] [address], [place] [phone] * HEPATITIS B CORE ANTIBODY (03/29/2024 7:49 AM CDT) HEP B CORE TOTAL AB NON-REACTI VE NON-REACTI VE 03/29/2024 9:29 AM CDT [facility] Comment:IgM and IgG anti HBc not detected. 03/29/2024 7:49 AM CDT us Rolan Simon MD LABORATORY Final Resu lt Performing Organization Address [facility] Co de Phone Number [facility] [address] [place] [address], [place] [phone] * (ABNORMAL) HEPATITIS B SURFACE ANTIBODY (03/29/2024 7:49 AM CDT) HEP B SURFACE AB <3.1(L) >9.9 MIU/ML 03/29/2024 9:04 AM CDT [facility] Comment:INDIVIDUAL IS CONSID ERED NOT IMMUNE TO HBV INFECTION. 03/29/2024 7:49 AM CDT us Rolan Simon MD LABORATORY Final Resu lt Performing Organization Address [facility] de Phone Number [facility] [address] [place] [address], [place] [phone] * HEPATITIS B SURFACE AG, EIA (03/29/2024 7:49 AM CDT) HEPATITIS B SURFACE AG NON-REACTI VE NON-REACTI VE 03/29/2024 9:04 AM CDT [facility] Comment:HBsAg NOT DETECTED. 03/29/2024 7:49 AM CDT us Rolan Simon MD LABORATORY Final Resu lt Performing Organization Address [facility] Co de Phone Number [facility] [address] [place] [address], [place] [phone] * (ABNORMAL) POCT glucose (03/29/2024 6:34 AM CDT) GLUCOSE POC 192(H) 70 - 109 03/29/2024 6:36 AM CDT [facility] 03/29/2024 6:34 AM CDT us Devyn Warner MD POCT ORDERABLES - DEVICE Fin al Result [facility] [address] [place] [address], [phone] * (ABNORMAL) BASIC METABOLIC PANEL (03/29/2024 4:06 AM CDT) [facility] SODIUM S/P/B 134(L) 136 - 145 MMOL/L 03/29/2024 5:22 AM CDT [facility] POTASSIUM S/P/B 4.2 3.5 - 5.1 MMOL/L 03/29/2024 5:22 AM CDT [facility] CHLORIDE S/P/B 101 97 - 115 MMOL/L 03/29/2024 5:22 AM CDT [facility] CO2 24.5 21.0 - 32.0 MMOL/L 03/29/2024 5:22 AM CDT [facility] GLUCOSE 204(H) 74 - 106 MG/DL 03/29/2024 5:22 AM CDT [facility] BUN 85(H) 7 - 18 MG/DL 03/29/2024 5:22 AM CDT [facility] CREATININE S/P/B 7.01(H) 0.70 - 1.30 MG/DL 03/29/2024 5:22 AM CDT [facility] CALCIUM S/P/B 9.7 8.5 - 10.1 MG/DL 03/29/2024 5:22 AM CDT [facility] ANION GAP 8.5 2.0 - 10.0 MMOL/L 03/29/2024 5:22 AM CDT [facility] OSMOLALITY (CALC) 310 MOSM/KG 10/15/2 024 5:22 AM CDT [facility] Comment:REFERENCE RANGE NOT ESTABLISHED GFR ESTIMATE 9(L) >90 ML/MIN/1. 73 M2 03/29/2024 5:22 AM CDT [facility] GFR NOTES GFR REFERENCE S: 03/29/2024 5:22 AM CDT [facility] Comment: THE ESTIMATED GFR IS CALCULATED [...] us Devyn Warner MD LABORATORY Final Result [facility] [address] [place] [address], [id number] * (ABNORMAL) CBC W/DIFF AUTOMATED (03/29/2024 4:06 AM CDT) WBC 7.36 4.00 - 10.80 x10'3/uL 03/29/2024 4:23 AM CDT [facility] RBC 3.13(L) 4.50 - 6.10 x10'6/uL 03/29/2024 4:23 AM CDT [facility] HGB 10.3(L) 12.0 - 16.0 G/DL 03/29/2024 4:23 AM CDT [facility] HCT 31.4(L) 37.0 - 52.0 % 03/29/2024 4:23 AM CDT [facility] MCV 100.3(H) 78.0 - 100.0 FL 03/29/2024 4:23 AM CDT [facility] MCH 32.9(H) 27.0 - 31.0 PG 03/29/2024 4:23 AM CDT [facility] MCHC 32.8(L) 33.0 - 36.0 G/DL 03/29/2024 4:23 AM CDT [facility] RDW 13.5 11.5 - 14.5 % 03/29/2024 4:23 AM CDT [facility] PLT 174 150 - 350 x10'3/uL 03/29/2024 4:23 AM CDT [facility] MPV 10.1 7.4 - 10.4 FL 03/29/2024 4:23 AM CDT [facility] DIFFERENTIAL TYPE AUTOMATED DIFFERENTIAL 03/29/2024 4:23 AM CDT [facility] SEG NEUTROPHILS 62.7 % 4:23 AM CDT [facility] LYMPHOCYTES 25.3 % 03/29/2024 4:23 AM CDT [facility] MONOCYTES 7.2 % 03/29/2024 4:23 AM CDT [facility] EOSINOPHILS 3.3 % 03/29/2024 4:23 AM CDT [facility] BASOPHILS 0.7 % 03/29/2024 4:23 AM CDT [facility] IMMATURE GRANS % 0.8 % 03/29/20 4:23 AM CDT [facility] ABS. NEUTROPHILS 4.62 1.60 - 8.30 x10'3/uL 03/29/2024 4:23 AM CDT [facility] ABS. LYMPHOCYTES 1.86 0.80 - 4.70 x10'3/uL 03/29/2024 4:23 AM CDT [facility] ABS. MONOCYTES 0.53 0.00 - 1.50 x10'3/uL 03/29/2024 4:23 AM CDT [facility] ABS. EOSINOPHILS 0.24 0.00 - 0.40 x10'3/uL 03/29/2024 4:23 AM CDT [facility] ABS. BASOPHILS 0.05 0.00 - 0.20 x10'3/uL 03/29/2024 4:23 AM CDT [facility] ABS. IMMATURE GRANULOCYTES 0.06(H) 0.00 - 0.03 x10'3/uL 03/29/2024 4:23 AM CDT [facility] ABS. NUCLEATED RBC'S 0.00 0.00 - 0.01 x10'3/uL 03/29/2024 4:23 AM CDT [facility] NRBC % 0.0 % 03/29/2024 4:23 AM CDT [facility] 03/29/2024 4:06 AM CDT us Devyn Warner MD LABORATORY Final Result Performing Organization Address [facility] Co de Phone Number [facility] [address] [place] [address], [place] [phone] * (ABNORMAL) POCT glucose (03/28/2024 8:54 PM CDT) GLUCOSE POC 201(H) 70 - 109 03/28/2024 8:56 PM CDT [facility] 03/28/2024 8:54 PM CDT us Devyn Warner MD POCT ORDERABLES - DEVICE Fin al Result Performing Organization Address [facility] Co de Phone Number [facility] [address] [place], [place] [id number], [place] [phone] [id number] documented in this encounter Visit Diagnoses Diagnosis Hemoptysis- Primary Hemoptysis, unspecified Hemoptysis Hemoptysis, unspecified documented in this encounter Admitting Diagnoses Diagnosis Hemoptysis Hemoptysis, unspecified documented in this encounter Administered Medications Inactive Administered Medications - up to 3 most recent administrations Medication Order MAR Action Action Date Dose Rate Site albumin human 25 % solution 50 mL 50 mL, Intravenous, PRN, Other, To keep systolic BP above 90, 3 doses, Starting on Thu03/29/24 at 0655, Until Thu03/31/24 at 1712, URIBE brand REQUIRES albumin tubing and filter. Other brands do NOT require tubing/filter. Administer 1-3 mL/min to equal 60-180 mL/hr by gravity (NO infusion pump needed). In emergencies, may administer as rapidly as necessary to improve clinical condition. After initial volume replacement: do not exceed 1 mL/min in patients with normal plasma volume., Dialysis allopurinol (ZYLOPRIM) tablet 50 mg 50 mg, Oral, Twice weekly on Thu & (Once per day on Thursday), First dose on Thu03/31/24 at 0900, Until Discontinued, Dose adjusted for renal function Given 03/31/2024 1:02 PM CDT 50 mg amiodarone (PACERONE) tablet 100 mg 100 mg, Oral, Daily, First dose on Thu03/29/24 at 0900, Until Discontinued Given 03/31/2024 1:02 PM CDT 100 mg Given 03/30/2024 7:34 AM CDT 100 mg Given 03/29/2024 2:01 PM CDT 100 mg apixaban (ELIQUIS) tablet 5 mg 5 mg, Oral, 2 times daily, Indications: Atrial Fibrillation, First dose on Thu03/30/24 at 1030, Until DiscontinuedIndications:Atrial Fibrillation Given 03/31/2024 1:02 PM CDT 5 mg Given 03/30/2024 8:42 PM CDT 5 mg Given 03/30/2024 10:13 AM CDT 5 mg atorvastatin (LIPITOR) tablet 20 mg 20 mg, Oral, Nightly, First dose on Thu03/28/24 at 2100, Until Discontinued Given 03/30/2024 8:41 PM CDT 20 mg Given 03/29/2024 8:42 PM CDT 20 mg Given 03/28/2024 9:15 PM CDT 20 mg benzonatate (TESSALON) capsule 200 mg 200 mg, Oral, 3 times daily, First dose on Thu03/30/24 at 1030, Until Discontinued Given 03/31/2024 1:02 PM CDT 200 mg Given 03/30/2024 8:42 PM CDT 200 mg Given 03/30/2024 4:34 PM CDT 200 mg gabapentin (NEURONTIN) capsule 100 mg 100 mg, Oral, 2 times daily, First dose on Thu03/28/24 at 2100, Until Discontinued Given 03/31/2024 1:02 PM CDT 100 mg Given 03/30/2024 8:41 PM CDT 100 mg Given 03/30/2024 7:34 AM CDT 100 mg heparin (porcine) injection 1,300-2,400 Units 1,300-2,400 Units, Intravenous, As needed, Other, each lumen for catheter care, 2 doses, Starting on Thu03/29/24 at 0655, Until Thu03/31/24 at 1712, For Dialysis Only, Dialysis hydrALAZINE (APRESOLINE) injection 10 mg 10 mg, Intravenous, Every 6 hours PRN, Other, sbp more than 160, Starting on Thu03/28/24 at 1850, Until Thu03/31/24 at 1712, Monitor HR and BP before dose and 15 min after IV dose. For IV push give over 1-2 minutes=5mg/min. insulin glargine (LANTUS) injection 17 Units 17 Units, Subcutaneous, Nightly at bedtime, First dose on Thu03/28/24 at 2100, Until Discontinued Given 03/30/2024 8:48 PM CDT 17 Units Right Arm Given 03/29/2024 8:43 PM CDT 17 Units Ri ght Arm Given 03/28/2024 9:15 PM CDT 17 Units Le ft Lower Abdomen ondansetron (ZOFRAN) injection 4 mg 4 mg, Intravenous, Every 6 hours PRN, Nausea, Vomiting, Starting on Thu03/30/24 at 0609, Until Cheryl 03/31/24 at 1712, IV push over 2-5 minutes. Given 03/30/2024 6:18 AM CDT 4 mg pantoprazole EC (PROTONIX) tablet 40 mg 40 mg, Oral, Daily, First dose on Thu03/29/24 at 0900, Until Discontinued, Do not break, chew, or crush. Given 03/31/2024 1:02 PM CDT 40 mg Given 03/30/2024 7:34 AM CDT 40 mg Given 03/29/2024 2:01 PM CDT 40 mg polyethylene glycol (GLYCOLAX) packet 17 g 17 g, Oral, Daily as needed, Constipation, Starting on Thu03/28/24 at 1826, Until Thu03/31/24 at 1712, If both senna and polyethylene glycol are ordered, use 1st; if no response by next dosing interval, go to next option. sevelamer carbonate (RENVELA) tablet 800 mg 800 mg, Oral, 3 times daily with meals, First dose on Thu03/28/24 at 1845, Until Discontinued Given 03/31/2024 1:03 PM CDT 800 mg Given 03/31/2024 6:17 AM CDT 800 mg Given 03/30/2024 4:34 PM CDT 800 mg sodium chloride (PF) 0.9 % flush 50-100 mL 50-100 mL, Intravenous, As needed, Line care, to flush bloodlines and prevent clotting; add amount given to UF goal, Starting on Thu03/29/24 at 0734, Until Thu03/31/24 at 1712, For Dialysis Only, Dialysis tranexamic acid (CYKLOKAPRON) 500 mg in sodium chloride (PF) 0.9 % 10 mL nebulizer solution 500 mg, Nebulization, Administer over 15 Minutes, 3 times daily, 9 doses, First dose on Thu03/29/24 at 1600, Last dose on Thu04/01/24 at 0900, Respiratory Therapy to dilute 5 mL of 10% tranexamic acid w/5 mL of 0.9% sodium chloride to create a 5% (50mg/ml) solution. Administer over 15 minutes via nebulizer. documented in this encounter Active and Recently Administered Medications Times are shown in CDT. Scheduled Medication Order 03/29/2024 03/30/2024 03/31/2024 allopurinol (ZYLOPRIM) tablet 50 mg 50 mg, Oral, Twice weekly on Thu & (Once per day on Thursday), First dose on Thu03/31/24 at 0900, Until Discontinued, Dose adjusted for renal function 1302 (Given - Provider: Ranjana Martinez RN) amiodarone (PACERONE) tablet 100 mg 100 mg, Oral, Daily, First dose on Thu03/29/24 at 0900, Until Discontinued 1401 (Given - Provider: Precious Merino LPN) 0734 (Given - Provider: Tara Graham RN) 1302 (Given - Provider: Ranjana Martinez RN) apixaban (ELIQUIS) tablet 5 mg 5 mg, Oral, 2 times daily, Indications: Atrial Fibrillation, First dose on Thu03/30/24 at 1030, Until Discontinued 1013 (Given - Provider: Tara Graham RN)204 (Given - Provider: Wale Garcia RN) 130 (Given - Provider: Ranjana Martinez RN) atorvastatin (LIPITOR) tablet 20 mg 20 mg, Oral, Nightly, First dose on Thu03/28/24 at 2100, Until Discontinued 2041 (Given - Provider: Eduard Hernandez RN) 204 (Given - Provider: Wale Garcia RN) benzonatate (TESSALON) capsule 200 mg 200 mg, Oral, 3 times daily, First dose on Thu03/30/24 at 1030, Until Discontinued 1013 (Given - Provider: Tara Graham RN)1634 (Given - Provider: Tara Graham RN)2042 (Given - Provider: Wale Garcia RN) 1302 (Given - Provider: Ranjana Martinez RN)1600 (Canceled Entry - Provider: Automatic Discharge Provider - Comment: Automatically canceled at discontinue of medication order) gabapentin (NEURONTIN) capsule 100 mg 100 mg, Oral, 2 times daily, First dose on Thu03/28/24 at 2100, Until Discontinued 1401 (Given - Provider: Precious Merino LPN)2043 (Given - Provider: Eduard Hernandez RN) 0734 (Given - Provider: Tara Graham RN)2041 (Given - Provider: Wale Garcia RN) 1302 (Given - Provider: Ranjana Martinez RN) heparin (porcine) injection 1,000 Units 1,000 Units, Intravenous, Once, 1 dose, On Thu03/29/24 at 0715, Load at start of treatment., Dialysis 0715 (Canceled Entry - Provider: Automatic Discharge Provider - Comment: Automatically canceled at discontinue of medication order) insulin glargine (LANTUS) injection 17 Units 17 Units, Subcutaneous, Nightly at bedtime, First dose on Thu03/28/24 at 2100, Until Discontinued 2042 (Given - Provider: Eduard Hernandez RN) 2047 (Given - Provider: Wale Garcia, CABRERA) pantoprazole EC (PROTONIX) tablet 40 mg 40 mg, Oral, Daily, First dose on Thu03/29/24 at 0900, Until Discontinued, Do not break, chew, or crush. 1401 (Given - Provider: Precious Merino LPN) 0734 (Given - Provider: Tara Graham RN) 1302 (Given - Provider: Ranjana Martinez RN) paricalcitol (ZEMPLAR) injection 5 mcg 5 mcg, Intravenous, Once in dialysis, 1 dose, On Thu03/29/24 at 0715, Dialysis 0715 (Canceled Entry - Provider: Automatic Discharge Provider - Comment: Automatically canceled at discontinue of medication order) sevelamer carbonate (RENVELA) tablet 800 mg 800 mg, Oral, 3 times daily with meals, First dose on Thu03/28/24 at 1845, Until Discontinued 1025 (Not Given - Provider: Precious Merino LPN - Reason: Patient not available)1400 (Given - Provider: Precious Merino LPN)1714 (Given - Provider: Precious Merino LPN) 0734 (Given - Provider: Tara Graham RN)1219 (Given - Provider: Betsey Cordova LPN)1634 (Given - Provider: Tara Graham RN) 0617 (Given - Provider: Wale Garcia RN)1303 (Given - Provider: Ranjana Martinez RN)1700 (Canceled Entry - Provider: Automatic Discharge Provider - Comment: Automatically canceled at discontinue of medication order) tranexamic acid (CYKLOKAPRON) 500 mg in sodium chloride (PF) 0.9 % 10 mL nebulizer solution 500 mg, Nebulization, Administer over 15 Minutes, 3 times daily, 9 doses, First dose on Thu03/29/24 at 1600, Last dose on Thu04/01/24 at 0900, Respiratory Therapy to dilute 5 mL of 10% tranexamic acid w/5 mL of 0.9% sodium chloride to create a 5% (50mg/ml) solution. Administer over 15 minutes via nebulizer. 1600 (Canceled Entry - Provider: Automatic Discharge Provider - Comment: Automatically canceled at discontinue of medication order)2100 (Canceled Entry - Provider: Automatic Discharge Provider - Comment: Automatically canceled at discontinue of medication order) 0900 (Canceled Entry - Provider: Automatic Discharge Provider - Comment: Automatically canceled at discontinue of medication order)1600 (Canceled Entry - Provider: Automatic Discharge Provider - Comment: Automatically canceled at discontinue of medication order)2100 (Canceled Entry - Provider: Automatic Discharge Provider - Comment: Automatically canceled at discontinue of medication order) 0901 (Not Given - Provider: Linda Ramirez, HAND LENS POLISHER - Reason: Patient not available)1600 (Canceled Entry - Provider: Automatic Discharge Provider - Comment: Automatically canceled at discontinue of medication order) PRN Medication Order 03/29/2024 03/30/2024 03/31/2024 albumin human 25 % solution 50 mL 50 mL, Intravenous, PRN, Other, To keep systolic BP above 90, 3 doses, Starting on Thu03/29/24 at 0655, Until Thu03/31/24 at 1712, URIBE brand REQUIRES albumin tubing and filter. Other brands do NOT require tubing/filter. Administer 1-3 mL/min to equal 60-180 mL/hr by gravity (NO infusion pump needed). In emergencies, may administer as rapidly as necessary to improve clinical condition. After initial volume replacement: do not exceed 1 mL/min in patients with normal plasma volume., Dialysis heparin (porcine) injection 1,300-2,400 Units 1,300-2,400 Units, Intravenous, As needed, Other, each lumen for catheter care, 2 doses, Starting on Thu03/29/24 at 0655, Until Thu03/31/24 at 1712, For Dialysis Only, Dialysis hydrALAZINE (APRESOLINE) injection 10 mg 10 mg, Intravenous, Every 6 hours PRN, Other, sbp more than 160, Starting on Thu03/28/24 at 1850, Until Thu03/31/24 at 1712, Monitor HR and BP before dose and 15 min after IV dose. For IV push give over 1-2 minutes=5mg/min. ondansetron (ZOFRAN) injection 4 mg 4 mg, Intravenous, Every 6 hours PRN, Nausea, Vomiting, Starting on Thu03/30/24 at 0609, Until Thu03/31/24 at 1712, IV push over 2-5 minutes. 0618 (Given - Provider: Eduard Hernandez RN) polyethylene glycol (GLYCOLAX) packet 17 g 17 g, Oral, Daily as needed, Constipation, Starting on Thu03/28/24 at 1826, Until Thu03/31/24 at 1712, If both senna and polyethylene glycol are ordered, use 1st; if no response by next dosing interval, go to next option. sodium chloride (PF) 0.9 % flush 50-100 mL 50-100 mL, Intravenous, As needed, Line care, to flush bloodlines and prevent clotting; add amount given to UF goal, Starting on Thu03/29/24 at 0734, Until Thu03/31/24 at 1712, For Dialysis Only, Dialysis documented in this encounter Care Teams Intern Product Marketing Manager Relationship Specialty Start Date End Date Mery Maxwell MD [address] [place] [phone] PCP - General FAMILY PRACTICE 08/19/23 documented as of this encounter
--- OUTSIDE RECORDS SUMMARY | 2024-06-22 18:00 | XMS_ITS | Encounter Summary ---
Author Organization [facility] Address [address] [place] [address]. [place], [place] [id number] [place] [id number] Care Team Providers Care Lead Advisor Name Role Phone Mery Maxwell MD Primary Care Provider [phone] Encounter Details Date Type Department Care Team (Latest Contact Info) Description 02/25/2024 Travel Social History Tobacco Use Types Packs/Day Years Used Date Smoking Tobacco: Former Cigarettes 1 15 Smokeless Tobacco: Never Alcohol Use Standard Drinks/Week Comments Not Currently 0 (1 standard drink = 0.6 oz pur e alcohol) [facility] Utilities Answer Date Recorded In the past 12 months has [employer], gas, oil, or water [email or web address] threatened to shut off services in your [...] any time in the past 12 m [facility], were you homeless or living in a [facility] (including now)? No 02/26/2024 Sex and Gender [...] st Contact Info) Description 07/20/2024 10:30 AM FITTER HAND Office Visit [facility] [address] [place] [phone] Martha Ramirez, [facility] [id number] documented as of this encounter Goals Goal Patient Goal Type Associated Problems Recent Progress Patient-Stated? 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 RN documented as of this encounter Visit Diagnoses Not on filedocumented in this encounter Care Teams Lead Advisor Relationship Specialty Start Date End Date Mery Maxwell MD [address] [place] [phone] PCP - General FAMILY PRACTICE 08/19/23 documented as of this encounter
--- OUTSIDE RECORDS SUMMARY | 2024-06-22 18:00 | XMS_ITS | Encounter Summary ---
Author Organization [facility] Address [address] [place] [address]. [place], [place] [address] [place] [address] Care Team Providers Care Marine Pipefitter Helper Name Role Phone Mery Stoll MD Primary Care Provider [phone]- [phone] Reason for Visit * Reason Comments Consult Consultation for pro longed QT and establish cardiac care Encounter Details Date Type Department Care Team (Late st Contact Info) Description 02/03/2024 9:00 AM CDT Office Visit [facility] [address] Martha Graham, [facility]- [address] [employer] [place] [address] Consult (Consultation for prolonged QT and establish cardiac care) Social History Tobacco Use Types Packs/Day Years Used Date Smoking Tobacco: Former Cigarettes 1 15 Smokeless Tobacco: Never Tobacco Cessation:Counseling Given: Not Answered Alcohol Use Standard Drinks/Week Comments Not Currently 0 (1 standard drink = 0.6 oz pur e alcohol) [facility] Utilities Answer Date Recorded In the past 12 months has [employer], gas, oil, or water [employer] threatened to shut off services in your [...] any time in the past [address] [facility], were you homeless or living in a skilled nursing (including now)? No 01/01/2024 Sex and Gender Information Value Date Recorded Sex Assigned at Not on file Legal Sex Male 6:24 PM CDT Gender Identity Not on file Sexual Orientation Not on file documented as of this encounter Last Filed Vital Signs Vital Sign Reading Time Taken Comments Blood Pressure 121/57 02/03/2024 10:23 AM CDT Pulse 64 02/03/2024 10:23 AM CDT Temperature - - Respiratory Rate 20 02/03/2024 10:23 AM CDT Oxygen Saturation 99% 02/03/2024 10:23 AM CDT Inhaled Oxygen Concentration - - Weight 117.9 kg (260 lb) 02/03/2024 10:23 AM CDT Height 193 cm (6' 4 ) 02/03/2024 10:23 AM CDT Body Mass Index 31.65 02/03/2024 10:23 AM CDT documented in this encounter Functional [...] PM KELSIT Kathy Jim RN Active * Do you have serious difficulty walking or climbing stairs? Answer Date of Assessment Author Status Yes 12/31/2023 10:19 PM CDT Kathy Jim RN Active * Do you have difficulty dressing or bathing? Answer Date of Assessment Author Status Yes 12/31/2023 10:19 PM KELSIT Kathy Jim RN Active * Because of [...] documented in this encounter Progress Notes * Martha Graham, ALFRED-BC - 02/03/2024 9:00 AM CDT Chief Complaint: Consult (Consultation for prolonged QT and establish cardiac care) HISTORY: Vinay Wilburn is a 53-year-old male with past medical history of end-stage renal disease on dialysis TThSat, insulin-dependent diabetes, neuropathy, hypertension, hyperlipidemia, atrial fibrillation prolonged QT who presents today for consultation and hospital follow-up. He has previously received cardiac care and [facility] and was successfully cardioverted in June 2023 and placedon amiodarone. He is also anticoagulated on Eliquis. He was hospitalized last month for a near syncopal episode after dialysis with blood pressures reportedly 60/40. No loss of consciousness occurred. He was transferred to [facility] in [place] for further care. His initial EKG showed a prolonged QT at 511 ms but the following 2 subsequent EKG showed resolution with a a QTc of 498 and 362. Potassium was 3.2 on initial EKG with prolonged QTc. He has no major complaints today. Heis on disability and is wheelchair-bound but is able to transfer from bed to chair and does not walk. RECOMMENDATIONS AND PLAN: Prolonged QT: EKG performed after clinic today showed QTc of 469 ms. Follow. Reviewed meds, amio reduced and no other meds noted to cause prolong QTc. If worsening, consider EP consult. Paroxysmal Atrial fibrillation: Remains in normal sinus rhythm per auscultation today. EKG after office visit showed normal sinus rhythm. He remains on Eliquis for cardioembolic event reduction. [id number] score = 2 (HTN, DM). Will decrease amiodarone to 100 mg daily. Hypertension Stable. If hypotension were to persist or recur consider resuming midodrine on dialysis days. Continue current medications. Advised to start a regular exercise program. Follow up in 6 month(s) or sooner if any problems arise. PAST MEDICAL HISTORY: Past Medical History: Diagnosis Date A-fib ([facility]) Constipation Diabetes mellitus ([facility]) ESRD (end stage renal disease) ([facility]) GERD (gastroesophageal reflux disease) Gout, unspecified High cholesterol Neuropathy 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[facility]) Renal disorder Past Surgical History: Procedure Laterality Date FISTULA CANNULATION SET, EA TONSILLECTOMY Allergies: Review of patient's allergies indicates: Allergen Reactions Amoxicillin Hives MEDICATIONS: Prior to Admission medications Medication Sig Start Date End Date Taking? Authorizing Provider allopurinol (ZYLOPRIM) 100 MG tablet Take 1 tablet (100 mg total) by mouth 2 (two) times daily. 08/03/23 Yes Default History Genericprovider amiodarone (PACERONE) 200 MG tablet Take 0.5 tablets (100 mg total) by mouth daily. 02/03/24 Yes Martha Graham ANP-BC atorvastatin (LIPITOR) 20 MG tablet Take 1 tablet (20 mg total) by mouth daily. 08/03/23 Yes DefaultHistory Genericprovider calcitriol (ROCALTROL) 0.25 MCG capsule Take 1 capsule (0.25 mcg total) by mouth every other day. T-TH-SAT 08/03/23 Yes Default History Genericprovider carvedilol (COREG) 25 MG tablet Take 1 tablet (25 mg total) by mouth 2 (two) times daily. 01/28/24 Yes Default History Genericprovider ELIQUIS 5 MG [...] at bedtime. 08/03/23 Yes Default History Genericprovider pantoprazole EC (PROTONIX) 40 MG tablet Take 1 tablet (40 mg total) by mouth daily. 05/22/23 Yes Default History Genericprovider traMADol (ULTRAM) 50 MG tablet Indications: Acute Pain < 7 Day Supply 1-2 every 6 hours as needed for pain 08/19/23 Yes Vinay Mosher MD SOCIAL HISTORY: Social History Tobacco Use Smoking status: Former Types: Cigarettes Smokeless tobacco: Never Vaping Use Vaping status: Never Used Substance Use Topics Alcohol use: Not Currently Drug use: Not Currently FAMILY HISTORY: Family History Problem Relation Name Age of Onset Diabetes Mother Hypertension Mother Hypertension Father Diabetes Father Alzheimer's disease Father Diabetes Sister REVIEW OF ORGANS AND SYSTEMS: Review of Systems Constitutional: Positive for weight gain. Negative for recent unintentional weight loss and new or significant fatigue. HENT: Negative for new or significant hearing loss. Eyes: Positive for blurred vision. Negative for double vision. Respiratory: Negative for cough, new or significant shortness of breath and snoring. Cardiovascular: See HPI. Positive for light-headedness. Gastrointestinal: Positive for constipation. Negative for blood in stool and melena. Genitourinary: Negative for dysuria. Musculoskeletal: Positive for myalgias. Negative for new or worsening joint stiffness/pain. Skin: Negative for rash. Neurological: Negative for tingling/numbness and focal weakness. Endo/Heme/Allergies: Negative for new or significant bruising/bleeding and polydipsia. Psychiatric/Behavioral: Positive for nervous/anxious. Negative for depression and new or significant memory loss. PHYSICAL EXAM: Filed Vitals: 02/03/24 1023 BP: 121/57 Pulse: 64 Resp: 20 SpO2: 99% Weight: 117.9 kg (260 lb) Height: 1.93 m (6' 4 ) Body mass index is 31.65 kg/m??. Physical Exam Constitutional: No distress. HENT: Dentition normal. Eyes: Pupils equal, round, and reactive to light. Conjunctivae normal. Neck: Normal range of motion. Neck supple. Thyroid normal. No JVD. Pulmonary: Effort normal. Breath sounds normal. Abdomen: Abdomen soft. Bowel sounds normal. No tenderness. No mass. No hepatomegaly. No splenomegaly. Abdominal aorta not palpably enlarged. Neurological: Alert. Oriented x 3. Appropriate mood and affect. Normal motor skills. Normal gait. Skin: Dry. Warm. No cyanosis. No clubbing. Musculoskeletal: No kyphosis. Normal ROM. Cardiovascular: Rate: Regular rhythm and Normal rate. PMI: PMI not displaced Pulses: Right Carotid pulses 2+, Left Carotid pulses 2+, Right Radial pulses 2+, Left Radial pulses2+, Right Femoral pulses 2+, Left Femoral pulses 2+, Right Popliteal pulses 2+, Left Popliteal pulses 2+, Right DP pulses 2+, Left DP pulses 2+, Right PT pulses 2+, Left PT Pulses 2+, Negative for edema. Normal pulses. Heart Sounds: Normal heart sounds. Normal S1 and Normal S2. No gallop. No S3 sound. No S4 sound andNo murmur. Cardiovascular Comments: LABORATORY DATA: Lab Results Component Value Date NA 132 (L) 01/02/2024 K 3.4 (L) 01/02/2024 CL 97 (L) 01/02/2024 CO2 27.9 01/02/2024 AGAP 7.1 01/02/2024 BUN 56 (H) 01/02/2024 CR 5.83 (HH) 01/02/2024 GLU 186 (H) 01/02/2024 CA 9.9 01/02/2024 Lab Results Component Value Date WBC 7.25 01/02/2024 HGB 12.2 (L) 01/02/2024 PLT 212 01/02/2024 Lab Results Component Value Date AGAP 7.1 01/02/2024 TP 7.7 01/01/2024 ALB 3.2 (L) 01/01/2024 ALT 15 (L) 01/01/2024 HGBA1C 7.4 (H) 09/02/2023 TSH 1.940 01/01/2024 No results for input(s): TROP , TROPIWB in the last 168 hours. No results found for: CPK , MB Lab Results Component Value Date PROTIME 19.5 (H) 12/31/2023 PROTIME 20.8 (H) 09/01/2023 INR 1.7 (H) 12/31/2023 INR 1.8 (H) 09/01/2023 Data Reviewed: Stress -file Echo 07/04/23 1. Normal left ventricular systolic function with a calculated ejection fraction of 65%. 2. Normal right ventricular size and systolic function. 3. No significant valvular abnormalities. Comparison * No significant change compared to the previous study dated 04/25/2022. Cardioversion 07/07/23 Pre-procedure rhythm: atrial fibrillation Patient position: patient was placed in a supine position Chest area: chest area exposed Electrodes: pads Electrodes placed: anterior-posterior Number of attempts: 1 Attempt 1 mode: synchronous Attempt 1 waveform: biphasic Attempt 1 shock (in Joules): 150 Attempt 1 outcome: conversion to normal sinus rhythm Post-procedure rhythm: normal sinus rhythm Complications: no complications Patient tolerance: patient tolerated the procedure well with no immediate complications Cath -none on file DIAGNOSIS: 1. Prolonged Q-T interval on ECG ECG 12 lead (HOSPITAL PERFORMED ONLY) 2. Hypotension, unspecified hypotension type 3. Renovascular hypertension JOHN HUTCHINSON 44:54 PM Referring Provider: No ref. provider found PCP: MERY STOLL MD\ documented in this encounter Plan of Treatment Upcoming Encounters Date Type Department Care Team (Late st Contact Info) Description 07/20/2024 10:30 AM CONTROL AREA OPERATOR Office Visit [facility] [address] [place] [address] Martha Graham ANP-BC [facility] [place] [address] documented as of this encounter Goals Goal Patient Goal Type Associated Problems Recent Progress Patient-Stated? 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 RN documented as of this encounter Results * ECG 12 lead (HOSPITAL PERFORMED ONLY) (02/03/2024 10:40 AM CDT) 02/03/2024 10:4 0 AM CDT Narrative [facility] - 02/05/2024 4:40 PM CDT ? [facility] ?[address] [place] ??[address] ? Test Date: ?2024-02-03 Pat Name: ? VINAY WILBURN ?Department: ?? 3 ? Room: ? Gender: ? Male ? Potato Bucker: ?? : ?1970 ? Requested By: MARTHA GRAHAM Order Number: [id number] ? Reading : ?? Barber Blankenship ? Measurements Intervals ?[place] ? Rate: ? 63 ? P: ?49 MS: ? 204 ?QRS: ?97 QRSD: ? 101 ?T: ?22 QT: ? 457 ? QTc: ?469 ? Interpretive Statements SINUS RHYTHM BORDERLINE RIGHT AXIS DEVIATION PROLONGED QT INTERVAL Procedure Note Barber Blankenship MD - 02/05/[address] [place] [address] Test Date: 2024-02-03 Pat Name: VINAY WILBURN Department: 3 Room: Gender: Male Potato Bucker: : 1970 Requested By: MARTHA GRAHAM Order Number: [id number] Reading MD: Barber Blankenship Measurements Intervals Sperry Rate: 63 P: 49 MS: 204 QRS: 97 QRSD: 101 T: 22 QT: 457 QTc: 469 Interpretive Statements SINUS RHYTHM BORDERLINE RIGHT AXIS DEVIATION PROLONGED QT INTERVAL Martha Graham [facility]- ECG ORDERABLES Final Res ult 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
--- OUTSIDE RECORDS SUMMARY | 2024-06-22 18:00 | XMS_ITS | Encounter Summary ---
Author Organization [facility] Address [address] [place] [address]. [place], [place] [id number] [place] [address] Care Team Providers Care Fence Repairman Name Role Phone Mery Maxwell MD Primary Care Provider [phone]- [phone] Encounter Details Date Type Department Care Team (Latest Contact Info) Description 02/03/2024 Travel Social History Tobacco Use Types Packs/Day Years Used Date Smoking Tobacco: Former Cigarettes Smokeless Tobacco: Never Alcohol Use Standard Drinks/Week Comments Not Currently 0 (1 standard drink = 0.6 oz pur e alcohol) [facility] Utilities Answer Date Recorded In the [...] place to sleep or slept in a longterm (including now)? Patient declined 09/01/2023 Housing Stability [...] were you homeless or living in a longterm (including now)? No 01/01/2024 Sex and Gender [...] st Contact Info) Description 07/20/2024 10:30 AM BARGE PILOT Office Visit [facility] [address] [place] [address] Martha Ramirez, [facility]-[address] [address] documented as of this encounter Goals Goal Patient Goal Type Associated Problems Recent Progress Patient-Stated? 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 RN documented as of this encounter Visit Diagnoses Not on filedocumented in this encounter Care Teams Fence Repairman Relationship Specialty Start Date End Date Mery Maxwell MD [address] [place] [phone] PCP - General FAMILY PRACTICE 08/19/23 documented as of this encounter
--- OUTSIDE RECORDS SUMMARY | 2024-06-22 18:00 | XMS_ITS | Encounter Summary ---
Author Organization [facility] Address [address] [place] [address]. [place] [address] [place] [address] Care Team Providers Care Repairer Pump Name Role Phone Mery Maxwell MD Primary Care Provider +1- [phone] Reason for Visit * Reason Comments Breathing Problem Encounter Details Date Type Department Care Team (Late st Contact Info) Description 02/25/2024 3:41 PM CDT - 02/25/2024 9:34 PM CDT Emergency [facility] [address] [facility] [place] [address] Nicholas Oakes, DO [address] [place], [place] [phone] Breathing Problem Discharge Disposition: Home or Self Care (Routine Discharge) Social History Tobacco Use Types Packs/Day Years Used Date Smoking Tobacco: Former Cigarettes 1 15 Smokeless Tobacco: Never Alcohol Use Standard Drinks/Week Comments Not Currently 0 (1 standard drink = 0.6 oz pur e alcohol) [facility] Utilities Answer Date Recorded In the past 12 months has [place] gas, oil, or water [employer] threatened to shut off services in your [...] place to sleep or slept in a retirement (including now)? Patient declined 09/01/2023 Housing Stability [...] were you homeless or living in a retirement (including now)? No 02/26/2024 Sex and Gender Information Value Date Recorded Sex Assigned at Not on file Legal Sex Male 6:24 PM CDT Gender Identity Not on file Sexual Orientation Not on file documented as of this encounter Last Filed Vital Signs Vital Sign Reading Time Taken Comments Blood Pressure 122/70 02/25/2024 3:48 PM CDT Pulse 66 02/25/2024 5:45 PM CDT Temperature 36.7 ??C (98 ??F) 02/25/2024 3:48 PM CDT Respiratory Rate 28 02/25/2024 5:45 PM CDT Oxygen Saturation 95% 02/25/2024 5:45 PM CDT Inhaled Oxygen Concentration - - Weight 117.9 kg (260 lb) 02/25/2024 3:48 PM CDT Height 193 cm (6' 4 ) 02/25/2024 3:48 PM CDT Body Mass Index 31.65 02/25/2024 3:48 PM CDT documented in this encounter Functional [...] Status Yes 12/31/2023 10:19 PM CDT Kathy iJm RN Active * Because of a physical, mental, or emotional condition, do you have difficulty doing errands alone such as visiting a doctor's office or shopping? Answer Date of Assessment Author Status No 12/31/2023 10:19 PM CDT Kathy Jim RN Active documented as of this encounter Mental Status * Because of a physical, mental, or emotional condition, do you have serious difficulty concentrating, remembering, or making decisions? Answer Entry Date Author Status No 12/31/2023 10:19 PM CDT Kathy Jim RN Active documented in this encounter Discharge Instructions * Discharge Instructions* Nicholas Oakes, - 02/25/2024 5:46 PM CDT 1. The testing in the emergency department did not show any life-threatening or emergent process. * Attachments The following attachments cannot be sent through Care Everywhere. * Shortness of Breath (Dyspnea) Discharge Instructions ([place]) documented in this encounter Medications at Time [...] 05/22/2023 02/26/2024 documented as of this encounter ED Notes * Jessenia Martin RN - 02/25/2024 6:32 PM CDT [facility] called to transport pt. * Jessenia Martin RN - 02/25/2024 5:50 PM CDT Pt states [facility] takes him back home. Pt states they took me home from [facility] yesterday . Rn typewriter assembler spoke with Roger from [facility]. Roger states service will take pt home but has to sign form that ifhis insurance denies to pay he will be responsible for the cost. Pt states will sign form. * Obi Stauffer RN - 02/25/2024 3:52 PM CDT P.t. arrives to ER by [facility] with c/o shortness of breath. P.t. states they were at dialysis today and had 3.4 k removed when P.t. became short of breath and light headed. P.t. had dialysisyesterday and was sent to [facility] for same issue. P.t. denies any chest pain or any othercomplaints at this time. P.t. resting comfortably on stretcher. P.t. A&Ox4. * Nicholas Oakes DO - 02/25/2024 3:51 PM CDTAssociated Order(s): EKG Reading Chief Complaint Chief Complaint Patient presents with Breathing Problem History of Present Illness 53-year-old male presents emergency department via EMS from dialysis. When he sat up in dialysis prior to arrival, he felt short of breath. Per EMS, patient had 3.4 kg of fluid taken off of him. Patient has normal blood pressure at this time. Does report shortness of breath for months. Medical History ALLERGIES: Review of patient's allergies [...] T-TH-SAT 08/03/23 Default History Genericprovider carvedilol (COREG) 25 MG tablet Take 1 tablet (25 mg total) by mouth 2 (two) times daily. 01/28/24 Default History Genericprovider ELIQUIS 5 MG tablet [...] total) by mouth daily. 05/22/23 DefaultHistory Genericprovider traMADol (ULTRAM) 50 MG tablet Indications: Acute Pain < 7 Day Supply 1-2 every 6 hours as needed for pain 08/19/23 Vinay Mosher MD PAST MEDICAL HISTORY: Past Medical History: Diagnosis Date A-fib ([facility]) Constipation Diabetes mellitus ([facility] HHS/HCC) ESRD (end stage renal disease) ([facility] HHS/[facility]) GERD (gastroesophageal reflux disease) Gout, unspecified High cholesterol Neuropathy 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[facility]) Renal disorder PAST SURGICAL HISTORY: Past [...] Currently Review of Systems Review of Systems Physical Exam Filed Vitals: 02/25/24 1545 02/25/24 1548 02/25/24 1557 BP: 122/70 122/70 Pulse: 68 71 Resp: 23 16 Temp: 98 ??F (36.7 ??C) TempSrc: Temporal SpO2: 100% 100% 100% Weight: 117.9 kg (260 lb) Height: 1.93 m (6' 4 ) Physical Exam Vitals and nursing note reviewed. Constitutional: General: He is not in acute distress. Appearance: Normal appearance. He is not ill-appearing. HENT: Head: Normocephalic and atraumatic. Cardiovascular: Rate and Rhythm: Normal rate and regular rhythm. Pulses: Normal pulses. Heart sounds: Normal heart sounds. Pulmonary: Effort: Pulmonary effort is normal. No respiratory distress. Breath sounds: Normal breath sounds. Abdominal: Tenderness: There is no abdominal tenderness. There is no guarding. Musculoskeletal: Cervical back: No muscular tenderness. Right lower leg: Edema present. Left lower leg: Edema present. Skin: General: Skin is warm and dry. Neurological: General: No focal deficit present. Mental Status: He is alert and oriented to person, place, and time. Motor: Weakness present. Psychiatric: Mood and Affect: Mood normal. Behavior: Behavior normal. 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: : 1970 Requested By: NICHOLAS OAKES Order Number: [id number] Reading MD: Measurements Intervals Esopus Rate: 69 P: 56 VT: 187 QRS: 95 QRSD: 101 T: 14 QT: 455 QTc: 488 Interpretive Statements SINUS RHYTHM INDETERMINATE AXIS PROLONGED QT INTERVAL LABORATORY STUDIES: Results for orders placed or performed during the hospital encounter of 02/25/24 CBC W/DIFF AUTOMATED Result Value Ref Range WBC 8.26 4.00 - 10.80 x10'3/uL RBC 3.97 (L) 4.50 - 6.10 x10'6/uL HGB 12.8 (L) 13.0 - 18.0 G/DL HCT 38.5 37.0 - 52.0 % MCV 97.0 78.0 - 100.0 FL MCH 32.2 (H) 27.0 - 31.0 PG MCHC 33.2 33.0 - 36.0 G/DL RDW 12.9 11.5 - 14.5 % PLT 202 150 - 350 x10'3/uL MPV 9.9 7.4 - 10.4 FL CBC COMMENT NORMAL REFERENCE RANGE NOT ESTABLISHED FOR THE PROPORTIONAL LEUKOCYTE DIFFERENTIAL. NEUTROPHILS % 62.5 % LYMPHOCYTES % 26.6 % MONOCYTES % 6.7 % EOSINOPHILS % 2.2 % BASOPHILS % 0.8 % IMMATURE GRANS % 1.2 % NRBC % 0.0 % ABS. NEUTROPHILS 5.16 1.60 - 8.30 x10'3/uL ABS. LYMPHOCYTES 2.20 0.80 - 4.70 x10'3/uL ABS. MONOCYTES 0.55 0.00 - 1.50 x10'3/uL ABS. EOSINOPHILS 0.18 0.00 - 0.40 x10'3/uL ABS. BASOPHILS 0.07 0.00 - 0.20 x10'3/uL ABS. IMMATURE GRANULOCYTES 0.10 (H) 0.00 - 0.03 x10'3/uL ABS. NUCLEATED RBC'S 0.00 0.00 - 0.01 x10'3/uL COMPREHENSIVE METABOLIC PANEL Result Value Ref Range SODIUM S/P/B 136 136 - 145 MMOL/L POTASSIUM S/P/B 3.7 3.5 - 5.1 MMOL/L CHLORIDE S/P/B 95 (L) 98 - 107 MMOL/L CO2 29.6 21.0 - 32.0 MMOL/L GLUCOSE 204 (H) 70 - 99 MG/DL BUN 31 (H) 6 - 24 MG/DL CREATININE S/P/B 4.88 (H) 0.70 - 1.30 MG/DL CALCIUM S/P/B 9.7 8.4 - 10.5 MG/DL BILIRUBIN TOTAL S/P/B 0.5 0.2 - 1.0 MG/DL ALKALINE PHOSPHATASE S/P/B 65 45 - 115 U/L AST 12 (L) 15 - 37 U/L ALT 16 16 - 63 U/L TOTAL PROTEIN S/P/B 9.2 (H) 6.4 - 8.2 G/DL ALBUMIN S/P/B 4.0 3.4 - 5.0 G/DL ANION GAP 11.4 5.0 - 15.0 MMOL/L OSMOLALITY (CALC) 294 MOSM/KG GFR ESTIMATE 14 (L) >89 ML/MIN/1.73 M2 GFR NOTES GFR REFERENCES: IMAGING STUDIES XR CHEST PORTABLE Final Result by User, [id number] (02/25 1704) [address] [place] [address] EXAM: XR CHEST PORTABLE DATE: 02/25/2024 1609 hours Comparison 12/31/2023 INDICATION: Shortness of breath, dizziness, and weakness for one month. TECHNIQUE: One view FINDINGS: Normal heart and pulmonary vessel size. The lungs are clear. No pleural effusion. No acute bone findings. IMPRESSION: No acute findings. Referred By: Interpreted By: Kory Juan MD, 02/25/2024 5:01 PM EKG Reading Date/Time: 02/25/2024 4:13 PM Performed by: Nicholas Oakes DO Authorized by: Nicholas Oakes DO Interpreted by ED physician Rhythm: sinus rhythm Rate: normal BPM: 69 QRS axis: normal Conduction: conduction normal Clinical impression: abnormal ECG Comments: Nonspecific ST segment changes. Prolonged QT. ED Course / Medical Decision Making Medical Decision Making Patient with shortness of breath. Patient has stable vitals. 100% on room air. No wheezing on examination. No significant abnormalities with blood work. Patient at baseline kidney function. Chest x-ray did not show any large infiltrates or effusions. Low suspicion for pulmonary embolism causing shortness of breath. No need for CT scan of chest at this time. Will discharge patient back home. Problems Addressed: SOB (shortness of breath): chronic illness or injury Amount and/or Complexity of Data Reviewed Independent Historian: EMS Labs: ordered. Radiology: ordered and independent interpretation performed. Details: I reviewed and interpreted x-ray, no infiltrates noted. No pleural effusion Clinical Impression SOB (shortness of breath) (Primary) Disposition: Discharge Nicholas Oakes DO 02/25/24 1748 documented in this encounter Plan of Treatment Upcoming Encounters Date Type Department Care Team (Late st Contact Info) Description 07/20/2024 10:30 AM STOCK CONTROL SUPERVISOR Office Visit [facility] [place] [address] Martha Ramirez, [place] [address] documented as of this encounter Goals Goal Patient Goal Type Associated Problems Recent Progress Patient-Stated? 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 RN documented as of this encounter Procedures Procedure Name Priority Date/Time Associated Diagnosis Comments XR CHEST PORTABLE STAT 02/25/2024 4:4 0 PM CDT COMPREHENSIVE METABOLIC PANEL STAT 02/25/2024 4:22 PM CDT CBC W/DIFF AUTOMATED STAT 02/25/2024 4:22 PM CDT ECG 12-LEAD Routine 02/25/2024 4:13 PM CDT ELECTROCARDIOGRAM REPORT Routine 4:13 PM CDT documented in this encounter Results * XR CHEST PORTABLE (02/25/2024 4:40 PM CDT) Anatomical Region Laterality Modality Chest Radiographic Susannah ging 02/25/2024 5:01 PM CDT Impressions 02/25/2024 5:03 PM CDT IMPRESSION: No acute findings. Referred By: ?? Interpreted By: Kory Juan MD, 02/25/2024 5:01 PM Narrative 02/25/2024 5:03 PM CDT [facility] [address] [place] [address] EXAM: XR CHEST PORTABLE DATE: 02/25/2024 ?? 1609 hours Comparison 12/31/2023 INDICATION: Shortness of breath, dizziness, and weakness for one month. TECHNIQUE: One view FINDINGS: Normal heart and pulmonary vessel size. ??The lungs are clear. ??No pleural effusion. ??No acute bone findings. Procedure Note Kory Juan MD - 02/25/2024 [facility] [address] [place] [address] EXAM: XR CHEST PORTABLE DATE: 02/25/2024 1609 hours Comparison 12/31/2023 INDICATION: Shortness of breath, dizziness, and weakness for one month. TECHNIQUE: One view FINDINGS: Normal heart and pulmonary vessel size. The lungs are clear.No pleural effusion. No acute bone findings. IMPRESSION: No acute findings. Referred By: Interpreted By: Kory Juan MD, 02/25/2024 5:01 PM Nicholas Oakes DO GENERAL IMAGING Final Res ult * (ABNORMAL) COMPREHENSIVE METABOLIC PANEL (02/25/2024 4:22 PM CDT) SODIUM S/P/B 136 136 - 145 MMOL/L 02/25/2024 4:46 PM CDT [facility] POTASSIUM S/P/B 3.7 3.5 - 5.1 MMOL/L 02/25/2024 4:46 PM CDT [facility] CHLORIDE S/P/B 95(L) 98 - 107 MMOL/L 02/25/2024 4:46 PM T [facility] CO2 29.6 21.0 - 32.0 MMOL/L 02/25/2024 4:[address] [facility] GLUCOSE 204(H) 70 - 99 MG/DL 02/25/2024 4:46 PM T [facility] Comment: FASTING GLUCOSE 100 TO 125 MG/DL IS CONSISTENT WITH IMPAIRED FASTING GLUCOSE. FASTING GLUCOSE >125 MG/DL IS CONSISTENT WITH DIABETES. RANDOM GLUCOSE >200 MG/DL WITH HYPERGLYCEMIC SYMPTOMS IS CONSISTENT WITH DIABETES. PER ADA GUIDELINES BUN 31(H) 6 - 24 MG/DL 02/25/2024 4:46 PM T [facility] CREATININE S/P/B 4.88(H) 0.70 - 1.30 MG/DL 02/25/2024 4:46 PM T [facility] CALCIUM S/P/B 9.7 8.4 - 10.5 MG/DL 02/25/2024 4:[address] [facility] BILIRUBIN TOTAL S/P/B 0.5 0.2 - 1.0 MG/DL 02/25/2024 4:[address] [facility] Comment: THIS ASSAY IS NOT RECOMMENDED FOR PATIENTS UNDERGOING TREATMENT WITH ELTROMBOPAG DUE TO THE POTENTIAL FOR FALSELY ELEVATED RESULTS. ALKALINE PHOSPHATASE S/P/B 65 45 - 115 U/L 02/25/2024 4:46 PM T [facility] AST 12(L) 15 - 37 U/L 02/25/2024 4:[address] [facility] ALT 16 16 - 63 U/L 02/25/2024 4:46 PM T [facility] TOTAL PROTEIN S/P/B 9.2(H) 6.4 - 8.2 G/DL 02/25/2024 4:46 PM T [facility] ALBUMIN S/P/B 4.0 3.4 - 5.0 G/DL 02/25/2024 4:46 PM T [facility] ANION GAP 11.4 5.0 - 15.0 MMOL/L 02/25/2024 4:46 PM CDT [facility] OSMOLALITY (CALC) 294 MOSM/KG 024 4:46 PM CDT [facility] Comment:REFERENCE RANGE NOT ESTABLISHED GFR ESTIMATE 14(L) >89 ML/MIN/1. 73 M2 02/25/2024 4:46 PM CDT [facility] GFR NOTES GFR REFERENCE S: 02/25/2024 4:46 PM CDT [facility] Comment: THE ESTIMATED GFR IS CALCULATED [...] ml/min/1.73 m2 G5,KIDNEY FAILURE: <15 ml/min/1.73 m2 02/25/2024 4:22 PM CDT Nicholas Oakes DO LABORATORY Final Res ult [facility] [address] [place] [address], * (ABNORMAL) CBC W/DIFF AUTOMATED (02/25/2024 4:22 PM CDT) WBC 8.26 4.00 - 10.80 x10'3/uL 02/25/2024 4:30 PM CDT [facility] RBC 3.97(L) 4.50 - 6.10 x10'6/uL 02/25/2024 4:30 PM CDT [facility] HGB 12.8(L) 13.0 - 18.0 G/DL 02/25/2024 4:30 PM CDT [facility] HCT 38.5 37.0 - 52.0 % 02/25/2024 4:30 PM CDT [facility] MCV 97.0 78.0 - 100.0 FL 02/25/2024 4:30 PM CDT [facility] MCH 32.2(H) 27.0 - 31.0 PG 02/25/2024 4:30 PM CDT [facility] MCHC 33.2 33.0 - 36.0 G/DL 02/25/2024 4:30 PM CDT [facility] RDW 12.9 11.5 - 14.5 % 02/25/2024 4:30 PM CDT [facility] PLT 202 150 - 350 x10'3/uL 02/25/2024 4:30 PM CDT [facility] MPV 9.9 7.4 - 10.4 FL 02/25/2024 4:30 PM CDT [facility] CBC COMMENT NORMAL REFERENCE RANGE NOT ESTABLISHED FOR THE PROPORTIONAL LEUKOCYTE DIFFERENTIAL. 02/25/2024 4:30 PM CDT [facility] NEUTROPHILS % 62.5 % 02/25/2024 4:30 PM CDT [facility] LYMPHOCYTES % 26.6 % 02/25/2024 4:30 PM CDT [facility] MONOCYTES % 6.7 % 02/25/2024 4:30 PM CDT [facility] EOSINOPHILS % 2.2 % 02/25/2024 4:30 PM CDT [facility] BASOPHILS % 0.8 % 02/25/2024 4:30 PM CDT [facility] IMMATURE GRANS % 1.2 % 02/25/20 4:30 PM CDT [facility] NRBC % 0.0 % 02/25/2024 4:30 PM CDT [facility] ABS. NEUTROPHILS 5.16 1.60 - 8.30 x10'3/uL 02/25/2024 4:30 PM CDT [facility] ABS. LYMPHOCYTES 2.20 0.80 - 4.70 x10'3/uL 02/25/2024 4:30 PM CDT [facility] ABS. MONOCYTES 0.55 0.00 - 1.50 x10'3/uL 02/25/2024 4:30 PM CDT [facility] ABS. EOSINOPHILS 0.18 0.00 - 0.40 x10'3/uL 02/25/2024 4:30 PM CDT [facility] ABS. BASOPHILS 0.07 0.00 - 0.20 x10'3/uL 02/25/2024 4:30 PM CDT [facility] ABS. IMMATURE GRANULOCYTES 0.10(H) 0.00 - 0.03 x10'3/uL 02/25/2024 4:30 PM CDT [facility] ABS. NUCLEATED RBC'S 0.00 0.00 - 0.01 x10'3/uL 02/25/2024 4:30 PM CDT [facility] 02/25/2024 4:22 PM CDT us Nicholas Oakes DO LABORATORY Final Res ult [facility] [address] [place] [address], * ECG 12 lead (02/25/2024 4:13 PM CDT) 02/25/2024 4:13 PM CDT Narrative [facility] - 02/26/2024 5:24 PM CDT ? [facility] ?[address] ??[address] ? Test Date: ?2024-02-25 Pat Name: ? VINAY WILBURN ?Department: ?? 3 ? Room: ? EXAM 606 Gender: ? Male ? Studio Technician: ?? : ?1970 ? Requested By: NICHOLAS VITALIYJERAMIE Order Number: [id number] ? Reading MD: ?? Timbo Nallamothu ? Measurements Intervals ?[place] ? Rate: ? 69 ? P: ?56 VT: ? 187 ?QRS: ?95 QRSD: ? 101 ?T: ?14 QT: ? 455 ? QTc: ?488 ? Interpretive Statements SINUS RHYTHM INDETERMINATE AXIS PROLONGED QT INTERVAL Procedure Note Timbo Valdez MD - 02/26/2024 [facility] [address] 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 * EKG Reading (02/25/2024 4:13 PM CDT) Nicholas Avila DO - 02/25/2024 4:13 PM CDT Nicholas Oakes DO ? 02/25/2024 ??5:48 PM EKG Reading Date/Time: 02/25/2024 4:13 PM Performed by: Nicholas Oakes DO Authorized by: Nicholas Oakes DO ??Interpreted by ED physician Rhythm: sinus rhythm Rate: normal BPM: 69 QRS axis: normal Conduction: conduction normal Clinical impression: abnormal ECG Comments: Nonspecific ST segment changes. ??Prolonged QT. us Nicholas Oakes DO [facility] Final Result documented in this encounter Visit Diagnoses Diagnosis SOB (shortness of breath)- Primary Shortness of breath documented in this encounter Administered Medications Inactive Administered Medications - up to 3 most recent administrations Medication Order MAR Action Action Date Dose Rate Site ipratropium-albuterol (DUONEB) 0.5-2.5 (3) MG/3ML nebulizer solution 3 mL 3 mL, Nebulization, Once, 1 dose, On Cheryl 02/25/24 at 1600 Given 02/25/2024 3:57 PM CDT 3 mLs documented in this encounter Active and Recently Administered Medications Times are shown in CDT. Scheduled Medication Order 02/23/2024 02/24/2024 02/25/2024 ipratropium-albuterol (DUONEB) 0.5-2.5 (3) MG/3ML nebulizer solution 3 mL (COMPLETED) 3 mL, Nebulization, Once, 1 dose, On Cheryl 02/25/24 at 1600 1557 (Given - Provid er: Kerline Kowalski, GAMING WORKER) documented in this encounter Care Teams Repairer Pump Relationship Specialty Start Date End Date Mery Maxwell MD [address] [place] [phone] PCP - General FAMILY PRACTICE 08/19/23 documented as of this encounter
--- OUTSIDE RECORDS SUMMARY | 2024-06-22 18:00 | XMS_ITS | Encounter Summary ---
Author Organization [facility] Address [address] [place] [address]. [place], [place] [id number] [place] [id number] Care Team Providers Care Ship'S Master Name Role Phone Mery Maxwell MD Primary Care Provider +1- [phone] Reason for Visit * Reason Onset Date Comments Follow Up Call 12/31/2023 HERO 12/30-01/02/24 Encounter Details Date Type Department Care Team (Latest Contact Info) Description 01/05/2024 Hospital Follow-up Call [facility] [place] [address] Amy Potter, JANEEN Follow Up Call (HERO 12/30-01/02/24) Social History Tobacco Use Types Packs/Day Years Used Date Smoking Tobacco: Former Cigarettes Smokeless Tobacco: Never Alcohol Use Standard Drinks/Week Comments Not Currently 0 (1 standard drink = 0.6 oz pur e alcohol) [facility] Utilities Answer Date Recorded In the past 12 months has [facility] [employer], oil, or water [employer] threatened to shut off services in your [...] place to sleep or slept in a nursing home (including now)? Patient declined 09/01/2023 Housing [...] any time in the past 12 m [facility], were you homeless or living in a nursing home (including now)? 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 RN documented as of this encounter Visit Diagnoses Not on filedocumented in this encounter Care Teams Ship'S Master Relationship Specialty Start Date End Date Mery Maxwell MD [address] [place] [phone] PCP - General FAMILY PRACTICE 08/19/23 documented as of this encounter
--- OUTSIDE RECORDS SUMMARY | 2024-06-22 18:00 | XMS_ITS | Encounter Summary ---
Author Organization [facility] Address [address] [place] [address]. 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 Name Role Phone Mery Maxwell MD Primary Care Provider [phone] Reason for Referral * (Routine) - New Request Specialty Diagnoses / Procedures Referred By Contac t Referred To Contact Procedures OT eval and treat [facility] Med/Surg [address] [place] [address] Phone: tel: Referral ID Status Reason Start Date Expiration Date V isits Requested Visits Authorized [id number] New Request 01/01/2024 12/31/2024 1 1 * (Routine) - Canceled Specialty Diagnoses / Procedures Referred By Contac t Referred To Contact Procedures PT eval and treat Viviane Lim PA-C Phone: tel: fax: Referral ID Status Reason Start Date Expiration Date V isits Requested Visits Authorized [id number] Canceled 12/31/2023 12/30/2024 1 1 Reason for Visit * Auth/Cert (Routine) Specialty Diagnoses / Procedures Referred By Contac t Referred To Contact Diagnoses Hypotension Postural dizziness with presyncope [facility]YNCOPE Procedures N/A Jacklyn Mena MD [address] [place] [address] Phone: tel: fax: Referral ID Status Reason Start Date Expiration Date Visits Re quested Visits Authorized [id number] 1 1 Encounter Details Date Type Department Care Team (Late st Contact Info) Description 12/31/2023 10:07 PM CDT - 01/02/2024 7:27 PM CDT Hospital Encounter [facility] Med/Surg [address]th [place] [address] Jacklyn Mena MD [address] [place], [place] [id number] Tomy Brooke MD [place], [place] [address] [phone] (Work) Nichol Cox, SEAN [address] [place], [place] [address] [phone] (Work) Viviane Lim PA-C [address] [place] [phone] Discharge Disposition: Home with Home Health Care Social History Tobacco Use Types Packs/Day Years Used Date Smoking Tobacco: Former Cigarettes Smokeless Tobacco: Never Alcohol Use Standard Drinks/Week Comments Not Currently 0 (1 standard drink = 0.6 oz pur e alcohol) [facility] Utilities Answer Date Recorded In the past 12 months has [employer], gas, oil, or water [employer] threatened to shut off services in your [...] place to sleep or slept in a care home (including now)? Patient declined 09/01/2023 Housing [...] any time in the past 12 m [facility], were you homeless or living in a care home (including now)? No 01/01/2024 Sex and Gender Information Value Date Recorded Sex Assigned at Not on file Legal Sex Male 6:24 PM CDT Gender Identity Not on file Sexual Orientation Not on file documented as of this encounter Last Filed Vital Signs Vital Sign Reading Time Taken Comments Blood Pressure 117/63 01/02/2024 4:34 PM CDT Pulse 58 01/02/2024 4:34 PM CDT Temperature 36.6 ??C (97.9 ??F) 01/02/2024 4:34 PM CD T Respiratory Rate 17 01/02/2024 4:34 PM CDT Oxygen Saturation 98% 01/02/2024 4:34 PM CDT Inhaled Oxygen Concentration - - Weight 121.4 kg (267 lb 10.2 oz) 2023 10:16 PM CDT Height 193 cm (6' 3.98 ) 01/01/2024 11: 14 PM CDT Body Mass Index 32.59 12/31/2023 10:16 PM CDT documented in this encounter Functional Status * Question Answer Date of Assessment Author Status Do you have serious difficulty walking or climbing stairs? Yes 12/31/2023 10:19 PM CDT Kathy Jim RN Act malcolm * Question Answer Date of Assessment Author Status Do you have difficulty dressing or bathing? Yes 12/31/2023 10:19 PM KELSIT Kathy Jim RN Active Because of a physical, mental, [...] or making decisions? No 12/31/2023 10:19 PM Kathy Moffett RN Active * Because of a physical, mental, or emotional condition, do you have serious difficulty concentrating, remembering, or making decisions? Answer Entry Date Author Status No 12/31/2023 10:19 PM Kathy Moffett RN Active documented in this encounter Discharge Summaries * Viviane Lim PA-C - 01/02/2024 2:34 PM CDT Hospitalist Discharge Summary Patient ID: Vinay Wilburn. male. 1970. Admit date: 12/31/2023 10:07 PM Discharge date and time: 01/08/24 Admitting Physician: Jacklyn Mena MD Attending Physician: No att. providers found Primary Care Physician: MERY MAXWELL MD Discharge Physician: VIVIANE LIM PA-C Hospital Diagnosis: Hypotension Postural dizziness with presyncope Admission Condition: poor Discharged Condition: Stable Code Status: Prior Indication for Admission: No chief complaint on file. Readmission/Mortality Score at discharge: Low 0-28, Medium 29-58, High >59 LACE+ Score *This score is based on incomplete data Readmission Score: 61* Male Patient: 3 Urgent Admission: 15 Discharge Institution: - Length of Stay: 3 Alternative Level of Care Status: 0 ED Visits in Previous 6 Months: 6 Elective Admission in Previous Year: 6 Comorbidity Score (by age & number of urgent admissions): 28 - This score is not calculated because of inadequate data HPI per admitting provider: Vinay Wilburn is a 53-year-old male With past medical history significant for ESRD on HD TTS, A-fib on Eliquis, IDDM, CHF, CAD, anemia[facility] Patient states while he was waiting for a ride after he had completed dialysis hestarted to feel lightheaded like he was going to pass out. Per report patient's blood pressure was noted to be 60s over 40s at dialysis. Patient denies any chest pain. He noted mild shortness of breath during that episode but now improved. He denies any dizziness at rest currently. Reports feeling well prior to this episode. Denies any headache, focal numbness, cough, fever, abdominal pain, nausea, vomiting or other acute complaints. BP now 180s systolic. Hospital Course: Dizziness Suspect dialysis induced BP noted to be 60s over 40s postdialysis -now hypertensive EKG initially with prolonged QTc but improved on repeat Troponin WNL-trend CXR without acute cardiopulmonary findings PT eval Check orthostatics Encourage p.o. fluids Monitor on tele Improved - PT rec home with assistance/Home PT Hypotension, now hypertensive Suspect dialysis induced BP noted to be 60s over 40s postdialysis -now hypertensive Coreg recently increased a few weeks ago per patient report Per patient normally runs high ~ 170s IV hydralazine prn for now Monitor and adjust treatment as needed 12/31 Consulting Nephrology No hypotension Thursday post dialysis. BP stable Continue to monitor with PCP/nephrology Hypomagnesia, hypokalemia Repleted, monitor Prolonged QTC Qtc 511 initially, repeat 498 Monitor on tele resolved ESRD On HD TTS 12/31nephrology consult IDDM Continue long-acting SSI and Accu-Cheks A1c 7.4 on 09/02/23 Chronic HFpEF Appears compensated Echo 08/2023 EF 71% Continue home meds A-fib On Eliquis, Coreg, amiodarone Findings that require further workup: F/u with PCP, nephrology Consults: Nephrology Significant Diagnostic Studies: No results found for this or any previous visit (from the past 24 hour(s)). Discharge Exam: Filed Vitals: 01/02/24 1300 01/02/24 1322 01/02/24 1445 01/02/24 1634 BP: 129/75 136/71 110/51 117/63 Pulse: 61 60 (!) 58 Resp: 16 17 Temp: 98.5 ??F (36.9 ??C) 97.9 ??F (36.6 ??C) TempSrc: Oral Oral SpO2: 98% Weight: Height: Physical Exam Constitutional: General: He is not in acute distress. HENT: Head: Normocephalic and atraumatic. Eyes: Conjunctiva/sclera: Conjunctivae normal. Cardiovascular: Rate and Rhythm: Normal rate and regular rhythm. Heart sounds: Normal heart sounds. Pulmonary: Effort: Pulmonary effort is normal. No respiratory distress. Breath sounds: Normal breath sounds. Abdominal: General: Bowel sounds are normal. There is no distension. Palpations: Abdomen is soft. Tenderness: There is no abdominal tenderness. Musculoskeletal: General: Normal range of motion. Cervical back: Neck supple. Skin: General: Skin is warm and dry. Findings: No erythema. Neurological: Mental Status: He is alert and oriented to person, place, and time. Psychiatric: Mood and Affect: Mood and affect normal. Discharge Medications: Medication List CONTINUE taking these medications Morning Afternoon Evening Bedtime As Needed allopurinol 100 MG tablet Commonly known as: ZYLOPRIM Take 1 tablet (100 mg total) by mouth 2 (two) times daily. Last time this was given: 100 mg on January 02, 2024 8:57 AM Last time this was given: January 02, 2024 8:57 AM amiodarone 200 MG tablet Commonly known as: PACERONE Take 1 tablet (200 mg total) by mouth daily. Last time this was given: 200 mg on January 02, 2024 8:56 AM Last time this was given: January 02, 2024 8:56 AM atorvastatin 20 MG tablet Commonly known as: LIPITOR Take 1 tablet (20 mg total) by mouth daily. Last time this was given: 20 mg on January 02, 2024 8:56 AM Last time this was given: January 02, 2024 8:56 AM calcitriol 0.25 MCG capsule Commonly known as: ROCALTROL Take 1 capsule (0.25 mcg total) by mouth every other day. T-TH-SAT Last time this was given: 0.25 mcg on January 02, 2024 9:00 AM Last time this was given: January 02, 2024 9:00 AM carvedilol 12.5 MG tablet Commonly known as: COREG Take 2 tablets (25 mg total) by mouth 2 (two) times daily. Last time this was given: 25 mg on January 02, 2024 8:56 AM Last time this was given: January 02, 2024 8:56 AM Cholecalciferol 50 MCG (2000 UT) Tabs Take 2 Capfuls by mouth daily. Eliquis 5 MG tablet Take 1 tablet (5 mg total) by mouth 2 (two) times daily. Last time this was given: 5 mg on January 02, 2024 8:56 AM Last time this was given: January 02, 2024 8:56 AM Generic drug: apixaban fluticasone propionate 50 MCG/ACT nasal spray Commonly known as: FLONASE 1 spray by Nasal route daily. gabapentin 100 MG capsule Commonly known as: NEURONTIN Take 1 capsule (100 mg total) by mouth 2 (two) times a day. Last time this was given: 100 mg on January 02, 2024 8:56 AM Last time this was given: January 02, 2024 8:56 AM * insulin lispro (1 Unit Dial) 100 UNIT/ML injection (PEN) Commonly known as: HUMALOG Inject 1-6 Units into the skin 3 (three) times daily. SLIDING SCALE * insulin lispro (1 Unit Dial) 100 UNIT/ML injection (PEN) Commonly known as: HUMALOG Inject 8 Units into the skin 3 (three) times daily before meals. Lantus SoloStar 100 UNIT/ML injection (PEN) Inject 10 Units into the skin nightly at bedtime. Generic drug: insulin glargine midodrine 10 MG tablet Commonly known as: PROAMATINE Take 1 tablet (10 mg total) by mouth 3 (three) times daily. pantoprazole EC 40 MG tablet Commonly known as: PROTONIX Take 1 tablet (40 mg total) by mouth daily. Last time this was given: 40 mg on January 02, 2024 8:56 AM Last time this was given: January 02, 2024 8:56 AM Senna 8.6 MG tablet Commonly known as: SENOKOT Take 1 tablet (8.6 mg total) by mouth daily. sevelamer carbonate 800 MG tablet Commonly known as: RENVELA Take 2 tablets (1,600 mg total) by mouth 3 (three) times daily with meals. * traMADol 50 MG tablet Commonly known as: ULTRAM Take 1 tablet (50 mg total) by mouth every 6 (six) hours as needed for Pain. * traMADol 50 MG tablet Commonly known as: ULTRAM Indications: Acute Pain < 7 Day Supply 1-2 every 6 hours as needed for pain Signed by: Dr. Vinay Mosher * This list has 4 medication(s) that are the same as other medications prescribed for you. Read thedirections carefully, and ask your doctor or other care provider to review them with you. Disposition: Home with Home Health Time Spent on Discharge: 35 minutes Signed: VIVIANE LIM PA-C Cosigned by Keiko Finn MD at 01/22/2024 11:08 AM CDT documented in this encounter Medications at Time [...] mcg total) by mouth every other day. [facility] 08/03/2023 02/26/2024 carvedilol (COREG) 12.5 MG tablet [...] Pain. 02/03/2024 documented as of this encounter Progress Notes * Zakiya Rocha RN - 01/02/2024 3:27 PM CDT 01/02/24 1527 Discharge Planning Living Arrangements Family members Support Systems Family members Type of Residence Private residence Patient expects to be discharged to: Home with home health care IV Infusion at discharge No DME Needed at Discharge No 15:29 [facility] phoned [facility] and informed that the patient is discharging today. DELMAR faxedAVS. * Zakiya Rocha RN - 01/02/2024 3:23 PM CDT 15:07 CM received DOC HALO from Maksim Pulido RN reading he needs an ambulance set up for this patient, his sister is unable to pick him up. DELMAR spoke with the patient and informed him that there maybe an expense incurred with ambulance transport. The patient states he had ambulance transport homein the past and there was no charge, he wants DELMAR to set it up.CM phoned [facility] for transport.CM sent DOC HALO to Maksim Smith RN reading [facility] gave ETA of 7pm, their number is [phone]. Trip # [id number]. Please let the patient know. DELMAR leaves at 15:30. * Josi De Oliveira Dmitri, ORDER BOOKER - 01/02/2024 2:56 PM CDT 01/02/24 1446 Therapy Visit Ordering Provider Yonas PT Received On 01/02/24 Subjective Patient supine in bed, agreeable for therapy. Reason for admission near syncope, hypotension Relevant Comorbidities/ Personal Factors to PT ESRD on HD, Afib, DM, CHF, CAD, anemia Verified Two Patient Identifiers Yes Patient consents to therapy Yes Acute Inpatient PT Time Calculation PT Start Time 1430 PT Stop Time 1445 PT Time Calculation (min) 15 min Precautions Weight Bearing Status Full weight bearing General Precautions Bed Alarm;Chair Alarm;Fall Risk;Monitor Vitals PPE Used Gloves Instructed on Precautions Yes;Needs reinforcement and education Other obese Pain Pain Patient does not offer or c/o pain Activity Tolerance Endurance Tolerates 10 - 20 min activity with rests Endurance Quality Fair Limiting Factors to Endurance Acute deconditioning;Weakness Cognition Overall Cognitive Status WFL Bed Mobility Supine to Sit SBA/supervision TRANSFERS Sit to Stand SBA/supervision;Min assist Gait Gait Assistance Contact guard assist Assistive Device None Distance Ambulated (ft) 2 ft Other (Comment) Patient sidestep 2 ft from EOB to chair with CGA. Gait belt utilized Balance Sitting - Static Independent Sitting - Dynamic Independent Standing - Static SBA Standing - Dynamic SBA Other Treatment Provided Other Treatment Provided (Comment) PAtient reported feeling dizzy sitting EOB, RN checked BP which was WNL. Patient stood and transfered to chair with 2 ft side stepping- no reports of dizziness. Patient/Family Training Bed Mobility X Transfer Training X Precautions X Discharge Recommendation PT Recommendation Home with assistance;Home PT PT Equipment Recommended Currently has DME in Place Plan PT Treatments/Interventions Therapeutic Exercises;Therapeutic Activities PT Frequency Daily;6 times/week PT plan for next session Progress with transfer tr as tolerated If this is the last treatment note,it will serve as the discharge summary Yes End of Session End of Session Safety Chair alarm set/activated;Call light within reach;Nursing aware of session Interdisciplinary Collaboration RN * Jolene Gallardo RN - 01/02/2024 2:40 PM CDTSummary: post HD assessment 01/02/24 1322 Post Treatment Note Post Treatment Note UF goal met, blodd returned, hemostasis acheived at sites, RN called for report Vital Signs Temp 98.5 ??F (36.9 ??C) Temp src Oral Pulse 60 Heart Rate Source Monitor Resp 16 BP 136/71 MAP Calculated 93 MM HG BP Location Right arm BP Method Automatic Patient Position Lying Cuff size Adult Regular Post Treatment Weight Post-Treatment Weight (kg) 120.4 kg (265 lb 6.9 oz) Additonal Post Treatment Information Time Treatment Ended 1300 Dialyzer Cleared Good Net UF removed 1383 Post Treatment Access AVF/AVG: Bleeding Stop Arterial 10 min AVF/AVG: Bleeding Stop Venous 5 min +Bruit Yes Post Assessment Skin Assessment Dry;Warm Respiratory Assessment Easy Respirations Cardiac Regular Edema None Pain None LOC Alert;Oriented to Person;Oriented to Place;Oriented to Time Ausculation Lung Sounds Location Modifier Anterior;Bilateral Location Throughout Respiratory Phase Expiratory;Inspiratory Lung Sounds Clear * Brandie Johnson PTA - 01/02/2024 1:08 PM CDT 01/02/24 1300 Therapy Visit Ordering Provider Yonas Lim ROOM 502 PT NOT SEEN DUE TO BEING OFF THE UNIT FOR DIALYSIS . WILL CHECK ON PT AT LATER TIME/DATE. Reason for admission near syncope, hypotension Relevant Comorbidities/ Personal Factors to PT ESRD on HD, Afib, DM, CHF, CAD, anemia * Zakiya Rocha RN - 01/02/2024 8:40 AM CDT 01/02/24 0811 Forms First Important Message from Medicare (IMM) Signed Copy delivered * Antoinette Thompson, OTR - 01/01/2024 1:32 PM CDT 01/01/24 1300 Therapy Visit OT Evaluation Completed on 01/01/24 Reason for admission near syncope, hypotension Comorbidities Relevant to OT ESRD, HD, AF, GERD, DM, PN, Gout, obesity Ordering Provider Yonas Verified Two Patient Identifiers Yes Patient consents to therapy Yes Acute Inpatient OT Time Calculation OT Start Time 1310 OT Stop Time 1326 OT Time Calculation (min) 16 min Precautions Weight Bearing Status Full weight bearing General Precautions Bed Alarm;Chair Alarm;Fall Risk;Monitor Vitals PPE Used Gloves Instructed on Precautions Yes;Needs reinforcement and education Skin Integrity No issues Subjective Subjective Rm 502 OT orders received. EMR reviewed. Rn aware. Pt agreeable Home Living Type of Home House Home Layout One level Home Accessibility Ramped entrance Bathroom Shower/Tub Tub/shower unit Bathroom Toilet Standard Toilet Home Equipment Wheelchair-manual Prior Function Level of [place] Independent with functional transfers;Independent with ambulation;Needs assistance with homemaking;Needs assistance with ADLs Device used at baseline Wheelchair-manual Baseline Ambulation Distance/Assistance non-ambulatory Fall History No Lives With Family (sister and bother inlaw) Receives Help From Family ADL Assistance Needs assistance Homemaking Assistance Needs assistance Pain Pain Patient does not offer or c/o pain Activity Tolerance Endurance Tolerates 10 - 20 min activity with rests Endurance Quality Fair Limiting Factors to Endurance Acute deconditioning;Weakness Vision - Basic Assessment Current Vision Wears glasses for distance only (Hearing intact) Cognition Overall Cognitive Status WFL Arousal/Alertness Appropriate responses to stimuli Attention Span Appears intact Memory Appears intact Orientation Level Oriented X4 Following Commands Follows one step commands without difficulty Safety Judgment Decreased awareness of need for assistance Deficits Fully aware of deficits Motor Planning Appears intact Initiation Cues to initiate tasks Other (Comment) slurred speech Overall Extremity Assessment Upper Extremity Grossly WFLS Hand Function Hand Dominance Right Gross Grasp Functional Coordination Functional Sensation Light Touch No apparent deficits (in Ues) ADL Additional Comments Pt is min a with for distal reaching, standing balance during clothes mgnt Bed Mobility Supine to Sit SBA/supervision Sit to Supine SBA/supervision Functional Transfers Sit to Stand SBA/supervision Toilet Transfers Supervision (pivot/simulated on/off BSC) Balance Sitting - Static Independent Sitting - Dynamic Independent Standing - Static SBA Standing - Dynamic SBA Proprioception Proprioception No apparent deficits Assessment Occupational Profile and History Complexity Moderate (Expanded) Performance Deficit Level Moderate (3-5 deficits) Clinical Decision Making Moderate (min/mod modifications) Complexity Level of Evaluation Moderate Prognosis Fair;Good OT Assess/Eval Other (Comment) Pt is a 53 y/o male admitted with hypotension. Pt is SBs/min a with ADLS, Pt is non-ambulatory//functions from W/C level. No/mild cog deficits. Good Ues strength. Fair activity tolence/+ orthrostatic BP. Pt is at or near baseline function. Will DC this order at this time. Patient/Family Training Other (Comment) Fair insight, receptive with encouragement Discharge Recommendation OT Recommendation Home with assistance OT Equipment Recommended Currently has DME in Place Plan Progress Discontinue OT If this is the last treatment note, it will serve as the discharge summary Yes End of Session End of Session Safety Bed alarm set/activated;Call light within reach;Nursing aware of session Interdisciplinary Collaboration RN, PT [facility] AM-PAC Daily Activity Please check the box that reflects your (the patient???s) best answer to each question Unable (1) ALot (2) A Little (3) None (4) 1. Putting on and taking off regular lower body clothing? 3 2. Bathing (including washing, rinsing, drying)? 3 3. Toileting, which includes toilet, bedpan, or urinal? 3 4. Putting on and taking off regular upper body clothing? 4 5. Taking care of personal grooming such as brushing teeth? 4 6. Eating meals? 4 Clinicians may find the following helpful in selecting responses: 1. Unable = Total/Dependent Assist 2. A Lot = Maximum/Moderate Assist 3. A Little = Minimum/Contact Guard Assist/Supervision 4. None = Modified [place]/Independent Raw score=21 Functional impairments-33% * Zakiya Rocha RN - 01/01/2024 11:44 AM CDT 01/01/24 1144 Interdisciplinary Group Conference Team Members Present Physician;Case/Care management;Nursing;Pharmacy Physician present for group conference Nichol Bass NP Barriers to Discharge Barriers Other (Comment) Other follow up (Comment) orthostatic BP, nephro consult Patient expects to be discharged to: Home with home health care * Aníbal Barrientos DPT - 01/01/2024 9:37 AM CDT 01/01/24 0830 Therapy Visit Ordering Provider Tita Subjective Pt states that he has been using a wheelchair for a long period of time due to weakness in his legs. He currently is living with his sister. He moved from [place] after hospitalization earlier this year. States he has weakness all over. Reason for admission near syncope Relevant Comorbidities/ Personal Factors to PT ESRD on HD, Afib, DM, CHF, CAD, anemia Verified Two Patient Identifiers Yes Patient consents to therapy Yes Acute Inpatient PT Time Calculation PT Start Time 0840 PT Stop Time 0905 PT Time Calculation (min) 25 min Precautions General Precautions Bed Alarm;Chair Alarm;Fall Risk;Monitor Vitals PPE Used Gloves Instructed on Precautions Yes;Needs reinforcement and education Other obese Home Living Type of Home House Home Layout One level Home Accessibility Ramped entrance Home Equipment Wheelchair-manual Prior Function Level of [place] Independent with functional transfers;Independent with ADLs Device used at baseline Wheelchair-manual Baseline Ambulation Distance/Assistance non-ambulatory Fall History No Lives With Family (sister and [id number]) Receives Help From Family Pain Pain Patient does not offer or c/o pain Activity Tolerance Endurance Tolerates 10 - 20 min activity with rests Endurance Quality Fair Limiting Factors to Endurance Acute deconditioning;Weakness Cognition Overall Cognitive Status WFL Arousal/Alertness Appropriate responses to stimuli Attention Span Appears intact Memory Appears intact Orientation Level Oriented X4 Following Commands Follows one step commands without difficulty Safety Judgment Decreased awareness of need for assistance Awareness of Errors Assistance required to identify errors made Sensation Light Touch Partial deficits in the RLE;Partial deficits in the LLE Overall Extremity Assessment Lower Extremity AROM is WFL, strength is fair overall functionally Bed Mobility Supine to Sit SBA/supervision TRANSFERS Sit to Stand SBA/supervision Bed to Chair SBA/supervision Other (Comment) no device Gait Other (Comment) non-ambulatory Balance Sitting - Static Independent Sitting - Dynamic Independent Standing - Static SBA Standing - Dynamic SBA Assessment Personal Factors/Comorbidities Impacting Care 3-4 personal factors/comorbidities Examination of Body Systems Moderate (3 or more Elements) Objectives of Body Systems Impaired transfers;Impaired balance;Decreased LE strength;Decreased safejudgement;Decreased endurance Clinical Presentation of Patient Evolving and changing characteristics Complexity Level of Evaluation Moderate Prognosis Fair;Good PT Assess/Eval Other (Comment) PT presents with weakness and dec tolerance to increased activity. Post DC, recommend home therapy. Patient/Family Training Bed Mobility x Transfer Training x Gait Training x Precautions x Discharge Recommendation PT Recommendation Home with assistance;Home PT PT Equipment Recommended Currently has DME in Place Plan PT Treatments/Interventions Therapeutic Exercises;Therapeutic Activities Progress Progressing toward goals PT Frequency Daily;6 times/week PT plan for next session Progress with transfer tr as tolerated If this is the last treatment note,it will serve as the discharge summary Yes End of Session End of Session Safety Chair alarm set/activated;Call light within reach;Nursing aware of session Interdisciplinary Collaboration RN * Zakiya Rocha RN - 01/01/2024 9:20 AM CDT 01/01/24 0919 Referral Data Source of Information Patient Patient Information Primary Caregiver Self;Spouse/Significant Other Current living Situation Family members (lives with sister and [id number]-[id number]) Type of Residence Private residence Support System Immediate family Are you employed? Disabled Baseline ADL's Functional Status Moderate assistance Active DME Wheelchair Behavior Oriented;Cooperative Communication Understands Bahamian;Understands speaking;Talks DC screening tool This is a screening [...] needs? Yes Based on the screening the DC plan for consideration is: Patient expects to be discharged to: Home with home health care NCM performed bedside interview, verified patient's name and : Support: sister and [id number] Home: lives with his sister and [id number]-[id number] Ambulation: Reports wheelchair bound, states he transfers with assist to wheelchair DME products: wheelchair DIALYSIS: attends dialysis at [facility] in [place] on ,Sat chair time 11am. This CM sent DOC HALO to Radha Stallings informing of same. Medical Devices: ADLs: Reports moderate assist prior to admission. Transport Home: ambulance Skin/Bladder/Bowel: A/O: Patient is alert, oriented to person, place, time, and situation Communication: Patient can communicate without deficits. Home Health: patient states he is current with [facility], CM phoned [facility] and left voicemail asking to verify if patient is current, gave return number Occupation: disabled Pharmacy: [facility] Financial Concerns: No financial concerns reported PCP/Insurance Plan: [facility]/Medicare Discharge needs: RNCM will follow case daily and will continuously evaluate discharge needs based on recommendations and treatment course. 10:25 CM received call from Kennedi at [facility] stating patient is current with them for home nursing and PT.CM will fax H&P to [facility].They will resume care at discharge. Kennedi's direct number is [phone]. If patient discharges over this weekend, CM can call Bailey at [phone]. 11:43 CM phoned patient's sister Viral to ask if she or other family can transport the patient when he is discharged, she states no they can not, their car is broke down. She states he will need transportation home. * Nichol Bass NP - 01/01/2024 7:13 AM CDT Hospitalist Daily Progress Note Subjective Vinay Wilburn is a 53-year-old male with past medical history of ESRD on HD TTS, A-fib on Eliquis, IDDM, CHF, CAD, anemia, HLD, ADRYAN, Secondary hyperparathyroidism, Obesity with BMI 32, 12/31/23 currently admitted as a transfer from [facility] for near syncope .Prolonged QT In the past 24hrs: Lab Trends: Na 137>135 K 3.2>3.5 Creat 3.22>4.56 Hbg 12>11.3 UA + Protein, glucose, ketones, blood On my evaluation today: No fevers, on room air, + orthostatic BP this am 148/78>127/85>114/73 New admission from last night Consulting Nephrology Pt states he has intermittent chest racing, palpitations. He states he has had problems like this before with low BP's Dizziness. He states he now uses a wheelchair incase he gets dizzy and falls. He sees Dr. Ng with [facility] Review of Systems Constitutional: Positive for malaise/fatigue. Respiratory: Positive for shortness of breath. Cardiovascular: Positive for palpitations. Negative for leg swelling. Gastrointestinal: Negative for nausea and vomiting. Musculoskeletal: Positive for falls. Neurological: Positive for dizziness, sensory change and weakness. Negative for headaches. Neuropathy Endo/Heme/Allergies: Bruises/bleeds easily. Objective Filed Vitals: 12/31/23 2216 12/31/23 2228 12/31/23 2305 01/01/24 0514 BP: (!) 189/86 (!) 180/82 136/70 (P) 116/70 Pulse: 61 61 (!) (P) 58 Resp: 20 18 (P) 14 Temp: 98.4 ??F (36.9 ??C) 98.2 ??F (36.8 ??C) (P) 97.9 ??F (36.6 ??C) TempSrc: Oral Oral (P) Oral SpO2: 100% 98% (P) 96% Weight: 121.4 kg (267 lb 10.2 oz) Vital Most Recent Value First Value Weight 121.4 kg (267 lb 10.2 oz) Weight: 121.4 kg (267 lb 10.2 oz) Height BMI (!) 32.59 N/A Estimated body mass index is 32.58 kg/m?? as calculated from the following: Height as of an earlier encounter on 12/31/23: 1.93 m (6' 4 ). Weight as of this encounter: 121.4 kg (267 lb 10.2 oz). Physical Exam: Constitutional: General: He is not in acute distress. Appearance: He is well-developed. HENT: Head: Normocephalic and atraumatic. Nose: Nose normal. Eyes: Extraocular Movements: Extraocular movements intact. Conjunctiva/sclera: Conjunctivae normal. Pupils: Pupils are equal, round, and reactive to light. Cardiovascular: Rate and Rhythm: Normal rate and regular rhythm. Pulmonary: Effort: Pulmonary effort is normal. No respiratory distress. Abdominal: General: There is no distension. Palpations: Abdomen is soft. Tenderness: There is no abdominal tenderness. Musculoskeletal: General: No swelling. Normal range of motion. Cervical back: Neck supple. Skin: General: Skin is warm and dry. Neurological: General: No focal deficit present. Mental Status: He is alert and oriented to person, place, and time. Cranial Nerves: No cranial nerve deficit. Psychiatric: Behavior: Behavior normal. Intake/Output 24H Total: No intake or output data in the 24 hours ending 01/01/24 0713 Medication allopurinol 100 mg Oral BID amiodarone 200 mg Oral Daily apixaban 5 mg Oral BID atorvastatin 20 mg Oral Q24H [START ON 01/02/2024] calcitriol 0.25 mcg Oral Once per day on Thursday carvedilol 25 mg Oral BID fluticasone propionate 1 spray Nasal Daily gabapentin 100 mg Oral BID insulin glargine 10 Units Subcutaneous Nightly at bedtime insulin lispro 0-14 Units Subcutaneous TID AC And insulin lispro 0-7 Units Subcutaneous Nightly at bedtime pantoprazole EC 40 mg Oral Daily sevelamer carbonate 1,600 mg Oral TID WC PRN Meds: hydrALAZINE Labs: Recent Results (from the past 24 hour(s)) CBC W/DIFF AUTOMATED Collection Time: 12/31/23 4:03 PM Result Value Ref Range WBC 6.62 4.00 [...] 0.00 - 0.01 x10'3/uL COMPREHENSIVE METABOLIC PANEL Collection Time: 12/31/23 4:03 PM Result Value Ref Range SODIUM S/P/B 137 [...] M2 GFR NOTES GFR REFERENCES: PROTIME/INR, VENOUS Collection Time: 12/31/23 4:03 PM Result Value Ref Range PROTIME 19.5 (H) 9.4 - 12.5 SEC INR 1.7 (H) 0.8 - 1.0 TROPONIN, QUANT Collection Time: 12/31/23 4:03 PM Result Value Ref Range TROPONIN I HIGH SENSITIVITY 11 0 - 76 ng/L MAGNESIUM Collection Time: 12/31/23 4:03 PM Result Value Ref Range MAGNESIUM 1.9 1.8 - 2.4 MG/DL URINALYSIS Collection Time: 12/31/23 5:18 PM Result Value Ref Range COLOR (U) YELLOW [...] MUCUS PRESENT OTHER CASTS (U) HYALINE /LPF POCT glucose Collection Time: 12/31/23 10:25 PM Result Value Ref Range GLUCOSE POC 206 (H) 70 - 99 mg/dL TROPONIN, QUANT Collection Time: 12/31/23 11:09 PM Result Value Ref Range TROPONIN I HIGH SENSITIVITY 11 <79 ng/L CBC W/DIFF AUTOMATED Collection Time: 01/01/24 5:12 AM Result Value Ref Range WBC 7.23 4.5 - 11.0 x10'3/uL RBC 3.47 (L) 4.70 - 6.10 x10'6/uL HGB 11.3 (L) 14.0 - 18.0 G/DL HCT 34.5 (L) 43.0 - 54.0 % MCV 99.4 (H) 80.0 - 94.0 FL MCH 32.6 (H) 27.0 - 31.0 PG MCHC 32.8 32.0 - 36.0 G/DL RDW 13.1 11.5 - 14.5 % PLT 191 130 - 400 x10'3/uL MPV 10.0 9.3 - 12.2 FL DIFFERENTIAL TYPE AUTOMATED DIFFERENTIAL NEUTROPHILS 61.9 % LYMPHOCYTES 27.7 % MONOCYTES 6.9 % EOSINOPHILS 2.1 % BASOPHILS 0.8 % IMMATURE GRANS 0.6 % ABS. NEUTROPHILS 4.48 1.80 - 7.70 x10'3/uL ABS. LYMPHOCYTES 2.00 1.00 - 4.80 x10'3/uL ABS. MONOCYTES 0.50 0.30 - 0.82 x10'3/uL ABS. EOSINOPHILS 0.15 0.04 - 0.54 x10'3/uL ABS. BASOPHILS 0.06 0.01 - 0.08 x10'3/uL ABS. IMMATURE GRANULOCYTES 0.04 0.00 - 0.49 x10'3/uL COMPREHENSIVE METABOLIC PANEL Collection Time: 01/01/24 5:12 AM Result Value Ref Range GLUCOSE 182 (H) 70 - 99 MG/DL BUN 38 (H) 7 - 18 MG/DL CREATININE S/P/B 4.56 (H) 0.7 - 1.3 MG/DL SODIUM S/P/B 135 (L) 136 - 145 MMOL/L POTASSIUM S/P/B 3.5 3.5 - 5.1 MMOL/L CHLORIDE S/P/B 100 100 - 108 MMOL/L CO2 29.5 21 - 32 MMOL/L CALCIUM S/P/B 9.2 8.5 - 10.1 MG/DL BILIRUBIN TOTAL S/P/B 0.5 0.2 - 1.2 MG/DL TOTAL PROTEIN S/P/B 7.7 6.4 - 8.2 G/DL ALBUMIN S/P/B 3.2 (L) 3.4 - 5.0 G/DL AST 10 (L) 15 - 37 U/L ALT 15 (L) 16 - 60 U/L ALKALINE PHOSPHATASE S/P/B 51 50 - 136 U/L ANION GAP 5.5 5 - 15 MMOL/L BUN CREATININE RATIO 8.3 6 - 26 A/G RATIO 0.7 (L) 1.0 - 2.0 RATIO GFR ESTIMATE 15 (L) >90 ML/MIN/1.73 M2 MAGNESIUM Collection Time: 01/01/24 5:12 AM Result Value Ref Range MAGNESIUM 2.3 1.8 - 2.4 MG/DL THYROID STIM HORMONE, TSH Collection Time: 01/01/24 5:12 AM Result Value Ref Range TSH 1.940 0.358 - 3.74 uIU/ML POCT glucose Collection Time: 01/01/24 6:21 AM Result Value Ref Range GLUCOSE POC 172 (H) 70 - 99 mg/dL X-Ray No results found. Radiology Results (Last 30 days) 12/31/23 1607 XR CHEST PORTABLE Final result Impression: IMPRESSION: No acute cardiopulmonary process identified. Ordered By: LASHAUN PHAM Interpreted By: Hans Gonsalves MD, 12/31/2023 4:13 PM Assessment/Plan: Hypotension Postural dizziness with presyncope Dizziness Suspect dialysis induced BP noted to be 60s over 40s postdialysis -now hypertensive EKG initially with prolonged QTc but improved on repeat Troponin WNL-trend CXR without acute cardiopulmonary findings PT eval Check orthostatics Encourage p.o. fluids Monitor on tele Hypotension, now hypertensive Suspect dialysis induced BP noted to be 60s over 40s postdialysis -now hypertensive Coreg recently increased a few weeks ago per patient report Per patient normally runs high ~ 170s IV hydralazine prn for now Monitor and adjust treatment as needed 12/31 Consulting Nephrology Hypomagnesia, hypokalemia Repleted, monitor Prolonged QTC Qtc 511 initially, repeat 498 Monitor on tele ESRD On HD TTS 12/31nephrology consult IDDM Continue long-acting SSI and Accu-Cheks A1c 7.4 on 09/02/23 Chronic HFpEF Appears compensated Echo 08/2023 EF 71% Continue home meds A-fib On Eliquis, Coreg, amiodarone Labs and test reviewed Discussed plan with Pt., RN, CM Consults include: PDMP Reviewed VTE: Eliquis CODE STATUS: Full Code Surrogate decision-maker:Surrogate decision maker is his Sister Viral Discharge Plan: Possible DC tomorrow after HD if orthostatic hypotension improved NICHOL BASS NP 01/01/2024 7:13 AM Primary care physician: MERY MAXWELL MD Extended Emergency Contact Information Primary Emergency Contact: VIRAL BRICE Mobile Relation: Sister Preferred language: Bahamian Doll Eye Setter needed? No Cosigned by Keiko Finn MD at 01/22/2024 11:08 AM CDT documented in this encounter H&P Notes * Viviane Lim PA-C - 12/31/2023 10:40 PM CDT Hospitalist History and Physical Patient: Vinay Wilburn Date: 12/31/2023 male, 53-year-old Admit Date: 12/31/2023 Attending: Tomy Brooke MD REASON FOR ADMISSION: HISTORY OF PRESENT ILLNESS: Vinay Wilburn is a 53-year-old male With past medical history significant for ESRD on HD TTS, A-fib on Eliquis, IDDM, CHF, CAD, anemia, presents as transfer from [facility] for near syncope. Patient states while he was waiting for a ride after he had completed dialysis he started to feel lightheaded like he was going to pass out. Per report patient's blood pressure was noted to be 60s over 40s at dialysis. Patient denies any chest pain. He noted mild shortness of breathduring that episode but now improved. He denies any dizziness at rest currently. Reports feeling well prior to this episode. Denies any headache, focal numbness, cough, fever, abdominal pain, nausea, vomiting or other acute complaints. BP now 180s systolic. Allergy Allergies Allergen Reactions Amoxicillin Hives Medication list Medications Prior to Admission Medication Sig Dispense Refill allopurinol (ZYLOPRIM) 100 MG tablet Take 1 tablet (100 mg total) by mouth 2 (two) times daily. amiodarone (PACERONE) 200 MG tablet Take 1 tablet (200 mg total) by mouth daily. atorvastatin (LIPITOR) 20 MG tablet Take 1 tablet (20 mg total) by mouth daily. calcitriol (ROCALTROL) 0.25 MCG capsule Take 1 capsule (0.25 mcg total) by mouth every other day. T--THU carvedilol (COREG) 12.5 MG tablet Take 2 [...] tablet (40 mg total) by mouth daily. Cholecalciferol 50 MCG (2000 UT) Tab Take 2 Capfuls by mouth daily. fluticasone propionate (FLONASE) 50 MCG/ACT nasal spray 1 spray by Nasal route daily. insulin lispro, 1 Unit Dial, (HUMALOG) 100 UNIT/ML injection (PEN) Inject 1-6 Units into the skin 3(three) times daily. SLIDING SCALE midodrine (PROAMATINE) 10 MG tablet Take 1 tablet (10 mg total) by mouth 3 (three) times daily. Senna (SENNOSIDES) 8.6 MG tablet Take 1 tablet (8.6 mg total) by mouth daily. sevelamer carbonate (RENVELA) 800 MG tablet Take 2 tablets (1,600 mg total) by mouth 3 (three) times daily with meals. traMADol (ULTRAM) 50 MG tablet Take 1 tablet (50 mg total) by mouth every 6 (six) hours as needed for Pain. traMADol (ULTRAM) 50 MG tablet Indications: Acute Pain < 7 Day Supply 1-2 every 6 hours as needed for pain 20 tablet 0 No current facility-administered medications on file prior to encounter. Current Outpatient Medications on File Prior to Encounter Medication Sig Dispense Refill allopurinol (ZYLOPRIM) 100 MG tablet Take 1 tablet (100 mg total) by mouth 2 (two) times daily. amiodarone (PACERONE) 200 MG tablet Take 1 tablet (200 mg total) by mouth daily. atorvastatin (LIPITOR) 20 MG tablet Take 1 tablet (20 mg total) by mouth daily. calcitriol (ROCALTROL) 0.25 MCG capsule Take 1 capsule (0.25 mcg total) by mouth every other day. T--THU carvedilol (COREG) 12.5 MG tablet Take 2 [...] tablet (40 mg total) by mouth daily. Cholecalciferol 50 MCG (2000 UT) Tab Take 2 Capfuls by mouth daily. fluticasone propionate (FLONASE) 50 MCG/ACT nasal spray 1 spray by Nasal route daily. insulin lispro, 1 Unit Dial, (HUMALOG) 100 UNIT/ML injection (PEN) Inject 1-6 Units into the skin 3(three) times daily. SLIDING SCALE midodrine (PROAMATINE) 10 MG tablet Take 1 tablet (10 mg total) by mouth 3 (three) times daily. Senna (SENNOSIDES) 8.6 MG tablet Take 1 tablet (8.6 mg total) by mouth daily. sevelamer carbonate (RENVELA) 800 MG tablet Take 2 tablets (1,600 mg total) by mouth 3 (three) times daily with meals. traMADol (ULTRAM) 50 MG tablet Take 1 tablet (50 mg total) by mouth every 6 (six) hours as needed for Pain. traMADol (ULTRAM) 50 MG tablet Indications: Acute Pain < 7 Day Supply 1-2 every 6 hours as needed for pain 20 tablet 0 Past Medical History Past Medical History: Diagnosis Date A-fib (CMS/HCC HHS/HCC) Constipation Diabetes mellitus (CMS/HCC HHS/HCC) ESRD (end stage renal disease) (CMS/HCC HHS/HCC) GERD (gastroesophageal reflux disease) Gout, unspecified High cholesterol Neuropathy 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CMS/HCC) Renal disorder Past Surgical History: Procedure Laterality Date FISTULA CANNULATION SET, EA TONSILLECTOMY Social History Social History Socioeconomic History Marital status: Tobacco Use Smoking status: Former Types: Cigarettes [...] declined Lack of Transportation (Non-Medical): Patient declined Recent Concern: Transportation Needs - Unmet Transportation Needs (06/14/2023) Received from [facility] OASIS A1250: Transportation Lack of Transportation (Medical): No Lack of Transportation (Non-Medical): Yes Patient Unable or Declines to Respond: No Social Connections: Feeling Socially Integrated (06/14/2023) Received from [facility] OASIS D0700: Social Isolation Frequency of experiencing loneliness or isolation: Rarely Intimate Partner Violence: Patient Declined (09/01/2023) Humiliation, [...] Housing in the Last Year: Patient declined Family History No family history on file. REVIEW OF SYSTEMS: A 14 point review of systems was taken and pertinent positive as per HPI Review of Systems Constitutional: Negative for chills, diaphoresis and fever. HENT: Negative. Eyes: Negative. Respiratory: Negative for cough, shortness of breath and wheezing. Cardiovascular: Negative for chest pain, palpitations and leg swelling. Gastrointestinal: Negative for abdominal pain, constipation, diarrhea, nausea and vomiting. Genitourinary: Negative for dysuria and hematuria. Musculoskeletal: Negative. Skin: Negative for rash. Neurological: Positive for dizziness. Negative for tingling, focal weakness, seizures, loss of consciousness and headaches. Psychiatric/Behavioral: Negative. PHYSICAL EXAMINATION: Vital 24 Hour Range Most Recent Value Temperature Temp Min: 96.8 ??F (36 ??C) Max: 98.4 ??F (36.9 ??C) 98.4 ??F (36.9 ??C) Pulse Pulse Min: 58 Max: 66 61 Respiratory Resp Min: 14 Max: 24 20 Blood Pressure BP Min: 132/67 Max: 189/86 (!) 180/82 Pulse Oximetry SpO2 Min: 97 % Max: 100 % 100 % O2 No data recorded Vital Most Recent Value First Value Weight 121.4 kg (267 lb 10.2 oz) Weight: 121.4 kg (267 lb 10.2 oz) Height BMI (!) 32.59 N/A Physical Exam: Physical Exam Constitutional: General: He is not in acute distress. Appearance: He is well-developed. HENT: Head: Normocephalic and atraumatic. Nose: Nose normal. Eyes: Extraocular Movements: Extraocular movements intact. Conjunctiva/sclera: Conjunctivae normal. Pupils: Pupils are equal, round, and reactive to light. Cardiovascular: Rate and Rhythm: Normal rate and regular rhythm. Pulmonary: Effort: Pulmonary effort is normal. No respiratory distress. Abdominal: General: There is no distension. Palpations: Abdomen is soft. Tenderness: There is no abdominal tenderness. Musculoskeletal: General: No swelling. Normal range of motion. Cervical back: Neck supple. Skin: General: Skin is warm and dry. Neurological: General: No focal deficit present. Mental Status: He is alert and oriented to person, place, and time. Cranial Nerves: No cranial nerve deficit. Psychiatric: Behavior: Behavior normal. Intake/Output last 3 shifts: No intake/output data recorded. Labs: Recent Labs Lab 12/31/23 1603 NA 137 K 3.2* CL 98 CO2 32.2* AGAP 6.8 BUN 26* CR 3.22* GLU 150* CA 9.1 MAGNESIUM 1.9 Recent Labs Lab 12/31/23 1603 WBC 6.62 RBC 3.70* HGB 12.0* HCT 36.7* MCV 99.2 MCH 32.4* MCHC 32.7* PLT 205 RDW 12.8 MPV 9.6 Recent Labs Lab 12/31/23 1603 AST 13* ALT 15* Recent Labs Lab 12/31/23 1603 INR 1.7* Invalid input(s): ABG arterial blood gases Recent Labs Lab 12/31/23 1603 TROP 11 No results for input(s): PH , PCO2 , PO2 , [id number] , BICARBWB , BASEDEFICIT , BASEEXCESS in the last 168 hours. Imagining & Other Studies .Radiology Results (Last 48 hours) 12/31/23 1607 XR CHEST PORTABLE Final result Impression: IMPRESSION: No acute cardiopulmonary process identified. Ordered By: LASHAUN PHAM Interpreted By: Hans Gonsalves MD, 12/31/2023 4:13 PM Assessment & Plan Dizziness Suspect dialysis induced BP noted to be 60s over 40s postdialysis -now hypertensive EKG initially with prolonged QTc but improved on repeat Troponin WNL-trend CXR without acute cardiopulmonary findings PT eval Check orthostatics Encourage p.o. fluids Monitor on tele Hypotension, now hypertensive Suspect dialysis induced BP noted to be 60s over 40s postdialysis -now hypertensive Coreg recently increased a few weeks ago per patient report Per patient normally runs high ~ 170s IV hydralazine prn for now Monitor and adjust treatment as needed Hypomagnesia, hypokalemia Repleted, monitor Prolonged QTC Qtc 511 initially, repeat 498 Monitor on tele ESRD On HD TTS Consider nephrology consult IDDM Continue long-acting SSI and Accu-Cheks A1c 7.4 on 09/02/23 Chronic HFpEF Appears compensated Echo 08/2023 EF 71% Continue home meds A-fib On Eliquis, Coreg, amiodarone Full code Surrogate decision maker is his Sister Viral I have seen and examined the patient independently and anticipate patient will require less than 2 midnight. VIVIANE LIM PA-C 12/31/2023 10:40 PM Cosigned by Tomy Brooke MD at 01/01/2024 12:23 AM CDT Associated attestation - Tomy Brooke MD - 01/01/2024 12:23 AM CDT I, TOMY BROOKE MD, participated in the care of this patient today and discussed the plan of care with YULY Hollis, who shared in this visit. I have reviewed the YULY's documentation and agree with the findings except as I have documented. I personally spent a substantial amount of time on medical decision making and in caring for this patient. Patient seen and examined. MACHINIST OUTSIDE note reviewed. This is a 53-year-old male who presented to outside hospital with hypotension after dialysis. Improved without intervention. Currently feels well without complaints General: Alert. No acute distress CV: Regular Pulmonary: Clear to auscultation. Nonlabored Abdomen: Positive bowel sounds Extremities: No edema Agree with plan as outlined above. Monitor orthostatics. Monitor blood pressure. Clarifying home medications. Likely can DC in a.m. Replete electrolytes. TOMY BROOKE MD documented in this encounter Consult Notes * Em Chu MD - 01/01/2024 11:43 AM CDTAssociated Order(s): IP CONSULT TO NEPHROLOGY Nephrology Consult Note Attending Provider: Nichol Bass NP PCP: MERY MAXWELL MD Vinay Wilburn is an 53-year-old male. Reason for Admission: Hypotension Postural dizziness with presyncope Reason for Consult: ESRD on HD HPI: Mr. Wilburn a 53 y.o male with hx of ESRD on chronic HD TTS, A.fib, DM, HTN, CHF, CAD, Anemia -he reported receiving his outpatient HD yesterday then presented to [facility] for near syncope with hypotension. He reported feeling like he was going to pass out and lightheaded while he was waiting for his ride after dialysis. It was reported that his BP was in the 60s/40s at dialysis. He noted some mild SOB during that episode then improved. He denied cough, fever, CP, he adache, abdominal pain, nausea, vomiting, diarrhea Past Medical History: Diagnosis Date A-fib ([facility]) Constipation Diabetes mellitus ([facility]) ESRD (end stage renal disease) ([facility]) GERD (gastroesophageal reflux disease) Gout, unspecified High cholesterol Neuropathy 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[facility]) Renal disorder Allergies: Allergies Allergen Reactions Amoxicillin Hives Social History Tobacco Use Smoking status: Former Types: Cigarettes Smokeless tobacco: Never Substance Use Topics Alcohol use: Not Currently Past Surgical History: Procedure Laterality Date FISTULA CANNULATION SET, EA TONSILLECTOMY No family history on file. No current facility-administered medications on file prior [...] mcg total) by mouth every other day. T--THU carvedilol (COREG) 12.5 MG tablet Take 2 [...] tablet (40 mg total) by mouth daily. Cholecalciferol 50 MCG (2000 UT) Tab Take 2 Capfuls by mouth daily. fluticasone propionate (FLONASE) 50 MCG/ACT nasal spray 1 spray by Nasal route daily. insulin lispro, 1 Unit Dial, (HUMALOG) 100 UNIT/ML injection (PEN) Inject 1-6 Units into the skin 3(three) times daily. SLIDING SCALE midodrine (PROAMATINE) 10 MG tablet Take 1 tablet (10 mg total) by mouth 3 (three) times daily. Senna (SENNOSIDES) 8.6 MG tablet Take 1 tablet (8.6 mg total) by mouth daily. sevelamer carbonate (RENVELA) 800 MG tablet Take 2 tablets (1,600 mg total) by mouth 3 (three) times daily with meals. traMADol (ULTRAM) 50 MG tablet Take 1 tablet (50 mg total) by mouth every 6 (six) hours as needed for Pain. traMADol (ULTRAM) 50 MG tablet Indications: Acute Pain < 7 Day Supply 1-2 every 6 hours as needed for pain There are no discontinued medications. Current Facility-Administered Medications Medication Dose Route Frequency Provider Last Rate Last Admin allopurinol (ZYLOPRIM) tablet 100 mg 100 mg Oral BID Viviane Redinezc, PA-C 100 mg at 01/01/24 0802 amiodarone (PACERONE) tablet 200 mg 200 mg Oral Daily Viviane Redzic, PA-C 200 mg at 01/01/24 0803 apixaban (ELIQUIS) tablet 5 mg 5 mg Oral BID Viviane Redzic, PA-C 5 mg at 01/01/24 08 atorvastatin (LIPITOR) tablet 20 mg 20 mg Oral Q24H Viviane Redinezc, PA-C 20 mg at 01/01/24 0803 [START ON 01/02/2024] calcitriol (ROCALTROL) capsule 0.25 mcg 0.25 mcg Oral Once per day on Thursday Vivianemalik Lim PA-C carvedilol (COREG) tablet 25 mg 25 mg Oral BID Viviane Redzic, PA-C 25 mg at 01/01/24 0802 fluticasone propionate (FLONASE) 50 MCG/ACT nasal spray 1 spray 1 spray Nasal Daily Viviane Madic, PA-C gabapentin (NEURONTIN) capsule 100 mg 100 mg Oral BID Viviane Redzic, PA-C 100 mg at 01/01/24 0803 hydrALAZINE (APRESOLINE) injection 10 mg 10 mg Intravenous Q6H PRN Viviane Barrazac, PA-C 10 mg at 12/31/23 2248 insulin glargine (LANTUS) injection 10 Units 10 Units Subcutaneous Nightly at bedtime Viviane LimPA-C 10 Units at 01/01/24 0059 insulin lispro (HUMALOG) injection 0-14 Units 0-14 Units Subcutaneous TID AC Vivianemalik Lim PA-C 2 Units at 01/01/24 0803 And insulin lispro (HUMALOG) injection 0-7 Units 0-7 Units Subcutaneous Nightly at bedtime Viviane Lim PA-C 2 Units at 01/01/24 0100 pantoprazole EC (PROTONIX) tablet 40 mg 40 mg Oral Daily Viviane Lim PA-C 40 mg at 01/01/24 0802 sevelamer carbonate (RENVELA) tablet 1,600 mg 1,600 mg Oral TID WC Viviane Lim PA-C Review of Systems: -General: Negative for fever, chills, malaise, or fatigue. -Eyes: Negative for eye pain, eye redness, eye discharge or itchiness. -Cardiovascular: Negative for chest pain, lower Ext. edema -Respiratory: episodic SOB. Negative for cough, or hemoptysis. -Gastrointestinal: Negative for abdominal pain, Nausea, vomiting, diarrhea, constipation, hematemesis, or hematochezia. -Genitourinary: Negative for dysuria, urgency, nocturia, polyuria, or hematuria. -Musculoskeletal: Negative for joint pain, muscle aches, back pain, joint swelling or stiffness. -Neurological: episodic lightheadedness. Negative for headache, confusion, numbness, weakness Vitals: Blood pressure 136/70, pulse (!) 58, temperature 97.9 ??F (36.6 ??C), temperature source Oral, resp. rate 18, weight 121.4 kg (267 lb 10.2 oz), SpO2 94%. Physical Exam: -GENERAL: No acute distress, breathing comfortably on room air. -EYES: Extraocular movements intact -LUNG: Clear to auscultation bilaterally -CVS: Regular rate rhythm, S1 and S2 normal -ABDOMEN: Soft, nondistended, Nontender -Musculoskeletal / EXT: no lower Ext edema. -NEURO: Alert, awake, oriented x3 LABs I reviewed labs Recent Labs Lab 12/31/23 1603 01/01/24 0512 NA 137 135* K 3.2* 3.5 CL 98 100 CO2 32.2* 29.5 AGAP 6.8 5.5 BUN 26* 38* CR 3.22* 4.56* BUNCREATININ -- 8.3 GLU 150* 182* CA 9.1 9.2 MAGNESIUM 1.9 2.3 Recent Labs Lab 12/31/23 1603 01/01/24 0512 WBC 6.62 7.23 RBC 3.70* 3.47* HGB 12.0* 11.3* HCT 36.7* 34.5* MCV 99.2 99.4* MCH 32.4* 32.6* MCHC 32.7* 32.8 PLT 205 191 RDW 12.8 13.1 MPV 9.6 10.0 Assessment/Plan: Mr. Wilburn a 53 y.o male with hx of ESRD on chronic HD TTS, A.fib, DM, HTN, CHF, CAD, Anemia -he reported receiving his outpatient HD yesterday then presented to OSH ER with hypotension, near syncope and lightheadedness ---ESRD on chronic HD TTS. Last outpatient HD was yesterday. Arranging for HD tomorrow if stays inpatient. Continue home midodrine during HD ---near syncope with hypotension post HD. He was hypertensive when transferred here and now normotensive. He is on home coreg. Continue home midodrine during HDManagement per primary team. ---a.fib; on BB and amiodarone ---DM on insulin ---renal osteodystrophy; continue home sevelamer with meals for hyperphosphatemia, on calcitriol for secondary hyperparathyroidism Thank you for allowing me to participate in the care of this patient. We will continue to follow this patient with you. Please contact us with further questions. 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 Author Family - family caregiver with be involved in care transitions and discharge planning Lifestyle No AjZakiya gillette RN documented as of this encounter Procedures Procedure Name Priority Date/Time Associated Diagnosis Comments POCT GLUCOSE - PERES DOCKED DEVICE Routine 01/02/2024 4:37 PM CDT POCT GLUCOSE - PERES DOCKED DEVICE Routine 01/02/2024 1:35 PM CDT BASIC METABOLIC PANEL Routine 01/02/2024 9:00 AM CDT HEPATITIS B SURFACE AG, EIA STAT 01/02/2024 9:00 AM CDT HEPATITIS B SURFACE ANTIBODY STAT 01/02/2024 9:00 AM CDT CBC W/DIFF AUTOMATED Routine 01/02/2024 9:00 AM CDT POCT GLUCOSE - PERES DOCKED DEVICE Routine 01/02/2024 5:02 AM CDT POCT GLUCOSE - PERES DOCKED DEVICE Routine 01/01/2024 8:22 PM CDT POCT GLUCOSE - PERES DOCKED DEVICE Routine 01/01/2024 3:23 PM CDT POCT GLUCOSE - PERES DOCKED DEVICE Routine 01/01/2024 11:11 AM CDT POCT GLUCOSE - PERES DOCKED DEVICE Routine 01/01/2024 6:21 AM CDT COMPREHENSIVE METABOLIC PANEL Routine 01/01/2024 5:12 AM CDT CBC W/DIFF AUTOMATED Routine 01/01/2024 5:12 AM CDT THYROID STIM HORMONE TSH Routine 01/01/2024 5:12 AM CDT MAGNESIUM Routine 01/01/2024 5:12 AM CDT TROPONIN, QUANT Routine 12/31/2023 11:09 PM CDT ECG 12-LEAD Routine 12/31/2023 11:01 PM CDT POCT GLUCOSE - PERES DOCKED DEVICE Routine 12/31/2023 10:25 PM CDT documented in this encounter Results * (ABNORMAL) POCT glucose (01/02/2024 4:37 PM CDT) GLUCOSE POC 132(H) 70 - 99 mg/dL 01/02/2024 4:38 PM CDT [facility] 01/02/2024 4:37 PM CDT Viviane Redinezc PA-C POCT ORDERABLES - DEVICE Final Result Performing Organization Address [facility]/ZIP Co de Phone Number [facility] [address] [place] [address], [place] [phone] * (ABNORMAL) POCT glucose (01/02/2024 1:35 PM CDT) GLUCOSE POC 104(H) 70 - 99 mg/dL 01/02/2024 1:36 PM CDT [facility] 01/02/2024 1:35 PM CDT Viviane Redzic PA-C POCT ORDERABLES - DEVICE Final Result Performing Organization Address City/[facility]/ZIP Co de Phone Number [facility] [address] [place] [address], [place] [phone] * (ABNORMAL) BASIC METABOLIC PANEL (01/02/2024 9:00 AM CDT) GLUCOSE 186(H) 70 - 99 MG/DL 01/02/2024 9:51 AM CDT [facility] BUN 56(H) 7 - 18 MG/DL 01/02/2024 9:51 AM CDT [facility] CREATININE S/P/B 5.83(HH) 0.7 - 1.3 MG/DL 01/02/2024 9:51 AM T [facility] Comment: Critical Result(s) Called at: 09:50:04 on 01/02/2024 by: YAJAIRA CASAS to and read back by:MARIUSZ LAWRENCE SODIUM S/P/B 132(L) 136 - 145 MMOL/L 01/02/2024 9:51 AM CDT [facility] POTASSIUM S/P/B 3.4(L) 3.5 - 5.1 MMOL/L 01/02/2024 9:51 AM T [facility] CHLORIDE S/P/B 97(L) 100 - 108 MMOL/L 01/02/2024 9:51 AM CDT [facility] CO2 27.9 21 - 32 MMOL/L 01/02/2024 9:51 AM T [facility] CALCIUM S/P/B 9.9 8.5 - 10.1 MG/DL 01/02/2024 9:51 AM T [facility] ANION GAP 7.1 5 - 15 MMOL/L 01/02/2024 9:51 AM T [facility] BUN CREATININE RATIO 9.6 6 - 26 01/02/2024 9:51 AM T [facility] GFR ESTIMATE 11(L) >90 ML/MIN/1.7 3 M2 01/02/2024 9:51 AM T [facility] Comment: NOTE: eGFR is not calculated for patients <18 years of age. This is an estimated GFR calculation using the new CKD EPI creatinine equation without race and so does not require a correction factor for race. This estimated GFR should not be used for calculating drug doses. 01/02/2024 9:00 AM CDT Viviane Lim PA-C LABORATORY Final Result [facility] [address] [place] [address], * (ABNORMAL) CBC W/DIFF AUTOMATED (01/02/2024 9:00 AM CDT) WBC 7.25 4.5 - 11.0 x10'3/uL 01/02/2024 9:26 AM CDT [facility] RBC 3.72(L) 4.70 - 6.10 x10'6/uL 01/02/2024 9:26 AM CDT [facility] HGB 12.2(L) 14.0 - 18.0 G/DL 01/02/2024 9:26 AM CDT [facility] HCT 37.0(L) 43.0 - 54.0 % 01/02/2024 9:26 AM CDT [facility] MCV 99.5(H) 80.0 - 94.0 FL 01/02/2024 9:26 AM CDT [facility] MCH 32.8(H) 27.0 - 31.0 PG 01/02/2024 9:26 AM CDT [facility] MCHC 33.0 32.0 - 36.0 G/DL 01/02/2024 9:26 AM CDT [facility] RDW 13.1 11.5 - 14.5 % 01/02/2024 9:26 AM CDT [facility] PLT 212 130 - 400 x10'3/uL 01/02/2024 9:26 AM CDT [facility] MPV 10.1 9.3 - 12.2 FL 01/02/2024 9:26 AM CDT [facility] DIFFERENTIAL TYPE AUTOMATED DIFFERENTIAL 01/02/2024 9:26 AM CDT [facility] NEUTROPHILS % 65.8 % 01/02/2024 9:26 AM CDT [facility] LYMPHOCYTES % 24.4 % 01/02/2024 9:26 AM CDT [facility] MONOCYTES % 5.7 % 01/02/2024 9:26 AM CDT [facility] EOSINOPHILS 2.6 % 01/02/2024 9:26 AM CDT [facility] BASOPHILS 0.7 % 01/02/2024 9:26 AM CDT [facility] IMMATURE GRANS % 0.8 % 01/02/20 9:26 AM CDT [facility] ABS. NEUTROPHILS 4.77 1.80 - 7.70 x10'3/uL 01/02/2024 9:26 AM CDT [facility] ABS. LYMPHOCYTES 1.77 1.00 - 4.80 x10'3/uL 01/02/2024 9:26 AM CDT [facility] ABS. MONOCYTES 0.41 0.30 - 0.82 x10'3/uL 01/02/2024 9:26 AM CDT [facility] ABS. EOSINOPHILS 0.19 0.04 - 0.54 x10'3/uL 01/02/2024 9:26 AM CDT [facility] ABS. BASOPHILS 0.05 0.01 - 0.08 x10'3/uL 01/02/2024 9:26 AM CDT [facility] ABS. IMMATURE GRANULOCYTES 0.06 0.00 - 0.49 x10'3/uL 01/02/2024 9:26 AM T [facility] 01/02/2024 9:00 AM CDT Viviane Lim PA-C LABORATORY Final Result Performing Organization Address City/[facility]/ZIP Co de Phone Number [facility] [address] [place] [address], [place] [phone] * HEPATITIS B SURFACE ANTIBODY (01/02/2024 9:00 AM CDT) HEP B SURFACE AB NON-REACTI VE 01/02/2024 9:47 AM CDT [facility] 01/02/2024 9:00 AM CDT Em Chu MD LABORATORY Final Result Performing Organization Address City/[facility] Co de Phone Number [facility] [address] [place] [address], [place] [phone] * HEPATITIS B SURFACE AG, EIA (01/02/2024 9:00 AM CDT) HEPATITIS B SURFACE AG NON-REACTI VE NON-REACTI VE 01/02/2024 9:57 AM CDT [facility] 01/02/2024 9:00 AM CDT Em Chu MD LABORATORY Final Result Performing Organization Address City/[facility]/ZIP Co de Phone Number [facility] [address] [place] [address], [place] [phone] * (ABNORMAL) POCT glucose (01/02/2024 5:02 AM CDT) GLUCOSE POC 138(H) 70 - 99 mg/dL 01/02/2024 5:04 AM CDT [facility] 01/02/2024 5:02 AM CDT Nichol Cox MACHINIST OUTSIDE POCT ORDERABLES - DEVICE F inal Result [facility] [address] [place] [address], [place] [phone] * (ABNORMAL) POCT glucose (01/01/2024 8:22 PM CDT) GLUCOSE POC 174(H) 70 - 99 mg/dL 01/01/2024 8:24 PM CDT [facility] 01/01/2024 8:22 PM CDT Nichol Dior Brooke MACHINIST OUTSIDE POCT ORDERABLES - DEVICE F inal Result Performing Organization Address [facility] Co de Phone Number [facility] [address] [place] [address], [place] [phone] * (ABNORMAL) POCT glucose (01/01/2024 3:23 PM CDT) GLUCOSE POC 187(H) 70 - 99 mg/dL 01/01/2024 4:04 PM CDT [facility] 01/01/2024 3:23 PM CDT Nichol Cox MACHINIST OUTSIDE POCT ORDERABLES - DEVICE F inal Result Performing Organization Address City/[facility]/ZIP Co de Phone Number [facility] [address] [place] [address], [place] [phone] * (ABNORMAL) POCT glucose (01/01/2024 11:11 AM CDT) GLUCOSE POC 191(H) 70 - 99 mg/dL 01/01/2024 11:25 AM CDT [facility] 01/01/2024 11:1 1 AM CDT Nichol Cox MACHINIST OUTSIDE POCT ORDERABLES - DEVICE F inal Result Performing Organization Address City/[facility] Co de Phone Number [facility] [address] [place] [address], * (ABNORMAL) POCT glucose (01/01/2024 6:21 AM CDT) GLUCOSE POC 172(H) 70 - 99 mg/dL 01/01/2024 6:23 AM CDT [facility] 01/01/2024 6:21 AM CDT Nichol Cox MACHINIST OUTSIDE POCT ORDERABLES - DEVICE F inal Result Performing Organization Address [facility] Co de Phone Number [facility] [address] [place] [address], [place] [phone] * THYROID STIM HORMONE, TSH (01/01/2024 5:12 AM CDT) TSH 1.940 0.358 - 3.74 uIU/ML 01/01/2024 5:56 AM CDT [facility] Comment: HIGH DOSES OF BIOTIN MAY INTERFERE WITH THIS TEST RESULT. CORRELATION TO CLINICAL HISTORY AND PRESENTATION RECOMMENDED. 01/01/2024 5:12 AM CDT Viviane Lim PA-C LABORATORY Final Result Performing Organization Address City/[facility]/ZIP Co de Phone Number [facility] [address] [place] [address], [place] [phone] * MAGNESIUM (01/01/2024 5:12 AM CDT) MAGNESIUM 2.3 1.8 - 2.4 MG/DL 01/01/2024 5:56 AM CDT [facility] 01/01/2024 5:12 AM CDT Viviane Lim PA-C LABORATORY Final Result [facility] [address] [place] [address], [place] [phone] * (ABNORMAL) COMPREHENSIVE METABOLIC PANEL (01/01/2024 5:12 AM CDT) GLUCOSE 182(H) 70 - 99 MG/DL 01/01/2024 5:56 AM CDT [facility] BUN 38(H) 7 - 18 MG/DL 01/01/2024 5:56 AM CDT [facility] CREATININE S/P/B 4.56(H) 0.7 - 1.3 MG/DL 01/01/2024 5:56 AM CDT [facility] SODIUM S/P/B 135(L) 136 - 145 MMOL/L 01/01/2024 5:56 AM CDT [facility] POTASSIUM S/P/B 3.5 3.5 - 5.1 MMOL/L 01/01/2024 5:56 AM CDT [facility] CHLORIDE S/P/B 100 100 - 108 MMOL/L 01/01/2024 5:56 AM CDT [facility] CO2 29.5 21 - 32 MMOL/L 01/01/2024 5:56 AM CDT [facility] CALCIUM S/P/B 9.2 8.5 - 10.1 MG/DL 01/01/2024 5:56 AM CDT [facility] BILIRUBIN TOTAL S/P/B 0.5 0.2 - 1.2 MG/DL 01/01/2024 5:56 AM T [facility] Comment: THIS ASSAY IS NOT RECOMMENDED FOR PATIENTS UNDERGOING TREATMENT WITH ELTROMBOPAG DUE TO THE POTENTIAL FOR FALSELY ELEVATED RESULTS. TOTAL PROTEIN S/P/B 7.7 6.4 - 8.2 G/DL 01/01/2024 5:56 AM CDT [facility] ALBUMIN S/P/B 3.2(L) 3.4 - 5.0 G/DL 01/01/2024 5:56 AM T [facility] AST 10(L) 15 - 37 U/L 01/01/2024 5:56 AM CDT [facility] ALT 15(L) 16 - 60 U/L 01/01/2024 5:56 AM CDT [facility] ALKALINE PHOSPHATASE S/P/B 51 50 - 136 U/L 01/01/2024 5:56 AM T [facility] ANION GAP 5.5 5 - 15 MMOL/L 01/01/2024 5:56 AM T [facility] BUN CREATININE RATIO 8.3 6 - 26 01/01/2024 5:56 AM T [facility] A/G RATIO 0.7(L) 1.0 - 2.0 RATIO 01/01/2024 5:56 AM T [facility] GFR ESTIMATE 15(L) >90 ML/MIN/1.7 3 M2 01/01/2024 5:56 AM T [facility] Comment: NOTE: eGFR is not calculated for patients <18 years of age. This is an estimated GFR calculation using the new CKD EPI creatinine equation without race and so does not require a correction factor for race. This estimated GFR should not be used for calculating drug doses. 01/01/2024 5:12 AM CDT Viviane Lim PA-C LABORATORY Final Result [facility] [address] [place] [address], * (ABNORMAL) CBC W/DIFF AUTOMATED (01/01/2024 5:12 AM CDT) WBC 7.23 4.5 - 11.0 x10'3/uL 01/01/2024 5:26 AM CDT [facility] RBC 3.47(L) 4.70 - 6.10 x10'6/uL 01/01/2024 5:26 AM CDT [facility] HGB 11.3(L) 14.0 - 18.0 G/DL 01/01/2024 5:26 AM CDT [facility] HCT 34.5(L) 43.0 - 54.0 % 01/01/2024 5:26 AM CDT [facility] MCV 99.4(H) 80.0 - 94.0 FL 01/01/2024 5:26 AM CDT [facility] MCH 32.6(H) 27.0 - 31.0 PG 01/01/2024 5:26 AM CDT [facility] MCHC 32.8 32.0 - 36.0 G/DL 01/01/2024 5:26 AM CDT [facility] RDW 13.1 11.5 - 14.5 % 01/01/2024 5:26 AM CDT [facility] PLT 191 130 - 400 x10'3/uL 01/01/2024 5:26 AM CDT [facility] MPV 10.0 9.3 - 12.2 FL 01/01/2024 5:26 AM CDT [facility] DIFFERENTIAL TYPE AUTOMATED DIFFERENTIAL 01/01/2024 5:26 AM CDT [facility] NEUTROPHILS % 61.9 % 01/01/2024 5:26 AM CDT [facility] LYMPHOCYTES % 27.7 % 01/01/2024 5:26 AM CDT [facility] MONOCYTES % 6.9 % 01/01/2024 5:26 AM CDT [facility] EOSINOPHILS 2.1 % 01/01/2024 5:26 AM CDT [facility] BASOPHILS 0.8 % 01/01/2024 5:26 AM CDT [facility] IMMATURE GRANS % 0.6 % 01/01/20 5:26 AM CDT [facility] ABS. NEUTROPHILS 4.48 1.80 - 7.70 x10'3/uL 01/01/2024 5:26 AM CDT [facility] ABS. LYMPHOCYTES 2.00 1.00 - 4.80 x10'3/uL 01/01/2024 5:26 AM CDT [facility] ABS. MONOCYTES 0.50 0.30 - 0.82 x10'3/uL 01/01/2024 5:26 AM CDT [facility] ABS. EOSINOPHILS 0.15 0.04 - 0.54 x10'3/uL 01/01/2024 5:26 AM CDT [facility] ABS. BASOPHILS 0.06 0.01 - 0.08 x10'3/uL 01/01/2024 5:26 AM CDT [facility] ABS. IMMATURE GRANULOCYTES 0.04 0.00 - 0.49 x10'3/uL 01/01/2024 5:26 AM T [facility] 01/01/2024 5:12 AM CDT Viviane Redzic PA-C LABORATORY Final Result Performing Organization Address [facility] Co de Phone Number [facility] [address] [place] [address], * TROPONIN, QUANT (12/31/2023 11:09 PM CDT) TROPONIN I HIGH SENSITIVITY 11 <79 ng/L 01/01/2024 12:38 AM CDT [facility] Comment: HIGH DOSES OF BIOTIN, TROPONIN-SPECIFIC AUTOANTIBODIES, AND ANTIBODY THERAPY CONTAINING HAMA MAY INTERFERE WITH THIS TEST RESULT. CORRELATION TO CLINICAL HISTORY AND PRESENTATION RECOMMENDED. 12/31/2023 11:0 9 PM CDT Viviane Redzic PA-C LABORATORY Final Result Performing Organization Address [facility] Co de Phone Number [facility] [address] [place] [address], * ECG 12 lead (12/31/2023 11:01 PM CDT) 12/31/2023 11:[address] [facility] - 01/01/2024 6:03 PM CDT ?[facility] ? [address] [place] ? Test Date: ?2023-12-31 Pat Name: ? VINAY WILBURN ?Department: ?? 40 ? Room: ? A502 Gender: ? Male ? 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 VB : ?1970 ? Requested By: VIVIANE LIM Order Number: [id number] ? Reading MD: ?? Shiyam Satwani ? Measurements Intervals ?[place] ? Rate: ? 60 ? P: ?23 LA: ? 208 ?QRS: ?-15 QRSD: ? 118 ?T: ?9 QT: ? 362 ? QTc: ?362 ? 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: MOE : 1970 Requested By: VIVIANE LIM Order Number: [id number] Reading MD: Lizzeth Castaneda Measurements Intervals [place] Rate: 60 P: 23 LA: 208 QRS: -15 QRSD: 118 T: 9 QT: 362 QTc: 362 Interpretive Statements SINUS RHYTHM NONSPECIFIC T-WAVE ABNORMALITY Compared to ECG 12/31/2023 18:05:24 Intraventricular conduction delay now present T-wave abnormality now present Prolonged QT interval no longer present Viviane Lim PA-C ECG ORDERABLES Final Result Performing Organization Address City/[facility]/ZIP Co de Phone Number [facility] ([facility]) RAD * (ABNORMAL) POCT glucose (12/31/2023 10:25 PM CDT) GLUCOSE POC 206(H) 70 - 99 mg/dL 01/01/2024 12:20 AM CDT [facility] 12/31/2023 10:2 5 PM CDT us Tomy Brooke MD POCT ORDERABLES - DEVICE Final Result Performing Organization Address City/[facility] Co de Phone Number [facility] [address] [place] [address], [place] [phone] documented in this encounter Visit Diagnoses Diagnosis Hypotension- Primary Hypotension, unspecified Hypotension, unspecified hypotension type Postural dizziness with presyncope Postural dizziness with presyncope documented in this encounter Admitting Diagnoses Diagnosis Hypotension Hypotension, unspecified Postural dizziness with presyncope documented in this encounter Administered Medications Inactive Administered Medications - up to 3 most recent administrations Medication Order MAR Action Action Date Dose Rate Site allopurinol (ZYLOPRIM) tablet 100 mg 100 mg, Oral, 2 times daily, First dose on Thu01/01/24 at 0900, Until Discontinued Given 01/02/2024 8:57 AM CDT 100 mg Given 01/01/2024 8:27 PM CDT 100 mg Given 01/01/2024 8:02 AM CDT 100 mg amiodarone (PACERONE) tablet 200 mg 200 mg, Oral, Daily, First dose on Thu01/01/24 at 0900, Until Discontinued Given 01/02/2024 8:56 AM CDT 200 mg Given 01/01/2024 8:03 AM CDT 200 mg apixaban (ELIQUIS) tablet 5 mg 5 mg, Oral, 2 times daily, Indications: Atrial Fibrillation, First dose on Thu01/01/24 at 0045, Until DiscontinuedIndications:Atrial Fibrillation Given 01/02/2024 8:56 AM CDT 5 mg Given 01/01/2024 8:26 PM CDT 5 mg Given 01/01/2024 8:02 AM CDT 5 mg atorvastatin (LIPITOR) tablet 20 mg 20 mg, Oral, Every 24 hours, First dose on Thu01/01/24 at 0900, Until Discontinued Given 01/02/2024 8:56 AM CDT 20 mg Given 01/01/2024 8:03 AM CDT 20 mg calcitriol (ROCALTROL) capsule 0.25 mcg 0.25 mcg, Oral, Three times weekly (Once per day on Thursday), First dose on Thu01/02/24 at 0900, Until Discontinued, T--THU Given 01/02/2024 9:00 AM CDT 0.25 mcg carvedilol (COREG) tablet 25 mg 25 mg, Oral, 2 times daily, First dose on Thu01/01/24 at 0900, Until Discontinued, Take with meal or snack Given 01/02/2024 8:56 AM CDT 25 mg Given 01/01/2024 8:02 AM CDT 25 mg gabapentin (NEURONTIN) capsule 100 mg 100 mg, Oral, 2 times daily, First dose on Thu01/01/24 at 0045, Until Discontinued Given 01/02/2024 8:56 AM CDT 100 mg Given 01/01/2024 8:27 PM CDT 100 mg Given 01/01/2024 8:03 AM CDT 100 mg hydrALAZINE (APRESOLINE) injection 10 mg 10 mg, Intravenous, Every 6 hours PRN, SBP >180, Starting on Cheryl 12/31/23 at 2240, Until 01/02/24 at 2129, Monitor HR and BP before dose and 15 min after IV dose. For IV push give over 1-2 minutes=5mg/min. Given 12/31/2023 10:48 PM CDT 10 mg insulin glargine (LANTUS) injection 10 Units 10 Units, Subcutaneous, Nightly at bedtime, First dose on Thu01/01/24 at 0045, Until Discontinued Given 01/01/2024 8:27 PM CDT 10 Units Left Lower Abdomen Given 01/01/2024 12:59 AM CDT 10 Units R ight Arm insulin lispro (HUMALOG) injection 0-14 Units 0-14 Units, Subcutaneous, 3 times daily before meals, First dose on Thu01/01/24 at 0700, Until Discontinued, Blood Glucose (SENSITIVE Dosing): [Less than 70:? Initiate Hypoglycemia Standing Orders] [71-140: 0 units] [141-180: 2 units] [181-220: 4 units] [221-260: 6 units] [261-300: 8 units] [301-350: 10 units] [351-400: 12 units] [Greater than 400: 14 units and Call Physician] Given 01/01/2024 5:29 PM CDT 4 Units Right Lower Abdomen Given 01/01/2024 12:05 PM CDT 4 Units R ight Arm Given 01/01/2024 8:03 AM CDT 2 Units Le ft Arm insulin lispro (HUMALOG) injection 0-7 Units 0-7 Units, Subcutaneous, Nightly at bedtime, First dose on Thu01/01/24 at 0045, Until Discontinued, Blood Glucose (SENSITIVE Dosing): [Less than 70:? Initiate Hypoglycemia Standing Orders] [71-180: ? 0 units] [181-220:? 2 units] [221-260:? 3 units] [261-300:? 4 units] [301-350:? 5 units] [351-400:? 6 units] [Greater than 400:? 7 units and Call Physician] Given 01/01/2024 1:00 AM CDT 2 Units Right Arm pantoprazole EC (PROTONIX) tablet 40 mg 40 mg, Oral, Daily, First dose on Thu01/01/24 at 0900, Until Discontinued, Do not break, chew, or crush. Given 01/02/2024 8:56 AM CDT 40 mg Given 01/01/2024 8:02 AM CDT 40 mg documented in this encounter Active and Recently Administered Medications Times are shown in CDT. Scheduled Medication Order 12/31/2023 01/01/2024 01/02/2024 allopurinol (ZYLOPRIM) tablet 100 mg 100 mg, Oral, 2 times daily, First dose on Thu01/01/24 at 0900, Until Discontinued 801 (Given - Provider: Naima Vaughn RN)2026 (Given - Provider: Oly Lama RN) 0857 (Given - Provider: Maksim Pulido, CABRERA)2100 (Canceled Entry - Provider: Automatic Discharge Provider - Comment: Automatically canceled at discontinue of medication order) amiodarone (PACERONE) tablet 200 mg 200 mg, Oral, Daily, First dose on Thu01/01/24 at 0900, Until Discontinued 08 (Given - Provider: Naima Vaughn RN) 0856 (Given - Provider: Maksim Pulido, CABRERA) apixaban (ELIQUIS) tablet 5 mg 5 mg, Oral, 2 times daily, Indications: Atrial Fibrillation, First dose on Thu01/01/24 at 0045, Until Discontinued 005 (Given - Provider: Kathy Jim RN)0802 (Given - Provider: Naima Vaughn RN)2025 (Given - Provider: Oly Lama RN) 0856 (Given - Provider: Maksim Pulido RN)2100 (Canceled Entry - Provider: Automatic Discharge Provider - Comment: Automatically canceled at discontinue of medication order) atorvastatin (LIPITOR) tablet 20 mg 20 mg, Oral, Every 24 hours, First dose on Thu01/01/24 at 0900, Until Discontinued 08 (Given - Provider: Naima Vaughn RN) 0856 (Given - Provider: Maksim Pulido RN) calcitriol (ROCALTROL) capsule 0.25 mcg 0.25 mcg, Oral, Three times weekly (Once per day on Thursday), First dose on Thu01/02/24 at 0900, Until Discontinued, --THU 0900 (Given - Provid er: Maksim Pulido RN) carvedilol (COREG) tablet 25 mg 25 mg, Oral, 2 times daily, First dose on Thu01/01/24 at 0900, Until Discontinued, Take with meal or snack 08 (Given - Provider: Naima Vaughn RN)2050 (Not Given - Provider: Oly Lama RN - Reason: Order parameters not met) 0856 (Given - Provider: Maksim Pulido RN)2100 (Canceled Entry - Provider: Automatic Discharge Provider - Comment: Automatically canceled at discontinue of medication order) fluticasone propionate (FLONASE) 50 MCG/ACT nasal spray 1 spray 1 spray, Nasal, Daily, First dose on Thu01/01/24 at 0900, Until Discontinued, Instill 1 spray into each nostril daily 0816 (Not Given - Provider: Naima Vaughn RN - Reason: Patient/family declined) 0857 (Not Given - Provider: Maksim Pulido RN - Reason: Patient/family declined) gabapentin (NEURONTIN) capsule 100 mg 100 mg, Oral, 2 times daily, First dose on Thu01/01/24 at 0045, Until Discontinued 005 (Given - Provider: Kathy Jim RN)08 (Given - Provider: Naima Vaughn RN)2026 (Given - Provider: Oly Lama RN) 0856 (Given - Provider: Maksim Pulido RN)2100 (Canceled Entry - Provider: Automatic Discharge Provider - Comment: Automatically canceled at discontinue of medication order) insulin glargine (LANTUS) injection 10 Units 10 Units, Subcutaneous, Nightly at bedtime, First dose on Thu01/01/24 at 0045, Until Discontinued 005 (Given - Provider: Kathy Jim RN)202 (Given - Provider: Oly Lama RN) 2100 (Canceled Entry - Provider: Automatic Discharge Provider - Comment: Automatically canceled at discontinue of medication order) insulin lispro (HUMALOG) injection 0-14 Units(Linked Group 1) 0-14 Units, Subcutaneous, 3 times daily before meals, First dose on Thu01/01/24 at 0700, Until Discontinued, Blood Glucose (SENSITIVE Dosing): [Less than 70:? Initiate Hypoglycemia Standing Orders] [71-140: 0 units] [141-180: 2 units] [181-220: 4 units] [221-260: 6 units] [261-300: 8 units] [301-350: 10 units] [351-400: 12 units] [Greater than 400: 14 units and Call Physician] 0803 (Given - Provider: Naima Vaughn, CABRERA)1205 (Given - Provider: Naima Vaughn, CABRERA)1729 (Given - Provider: Martha Jean RN) 0823 (Not Given - Provider: Maksim Puliod RN - Reason: Order parameters not met)1336 (Not Given - Provider: Maksim Pulido RN - Reason: Order parameters not met)1820 (Not Given - Provider: Maksim Pulido RN - Reason: Order parameters not met) insulin lispro (HUMALOG) injection 0-7 Units(Linked Group 1) 0-7 Units, Subcutaneous, Nightly at bedtime, First dose on Thu01/01/24 at 0045, Until Discontinued, Blood Glucose (SENSITIVE Dosing): [Less than 70:? Initiate Hypoglycemia Standing Orders] [71-180: ? 0 units] [181-220:? 2 units] [221-260:? 3 units] [261-300:? 4 units] [301-350:? 5 units] [351-400:? 6 units] [Greater than 400:? 7 units and Call Physician] 0100 (Given - Provider: Kathy Jim RN)205 (Not Given - Provider: Oly Lama RN - Reason: Order parameters not met) 2100 (Canceled Entry - Provider: Automatic Discharge Provider - Comment: Automatically canceled at discontinue of medication order) pantoprazole EC (PROTONIX) tablet 40 mg 40 mg, Oral, Daily, First dose on Thu01/01/24 at 0900, Until Discontinued, Do not break, chew, or crush. 0802 (Given - Provider: Naima Vaughn RN) 0856 (Given - Provider: Maksim Pulido, CABRERA) sevelamer carbonate (RENVELA) tablet 1,600 mg 1,600 mg, Oral, 3 times daily with meals, First dose on Thu01/01/24 at 0800, Until Discontinued 0802 (Not Given - Provider: Naima Vaughn RN - Reason: Order parameters not met)1149 (Not Given - Provider: Naima Vaughn RN - Reason: Patient/family declined)1730 (Not Given - Provider: Martha Jean RN - Reason: Patient/family declined) 0828 (Not Given - Provider: Maksim Pulido RN - Reason: Patient/family declined)1159 (Not Given - Provider: Maksim Pulido RN - Reason: Patient/family declined)1333 (Not Given - Provider: Maksim Pulido RN - Reason: Patient/family declined) PRN Medication Order 12/31/2023 01/01/2024 01/02/2024 hydrALAZINE (APRESOLINE) injection 10 mg 10 mg, Intravenous, Every 6 hours PRN, SBP >180, Starting on Cheryl 12/31/23 at 2240, Until 01/02/24 at 2129, Monitor HR and BP before dose and 15 min after IV dose. For IV push give over 1-2 minutes=5mg/min. 2248 (Given - Provider: Kathy Jim RN) Linked Groups Order Group 1: insulin lispro (HUMALOG) injection 0-14 UnitsJump to med 0-14 Units, Subcutaneous, 3 times daily before meals, First dose on Thu01/01/24 at 0700, Until Discontinued, Blood Glucose (SENSITIVE Dosing): [Less than 70:? Initiate Hypoglycemia Standing Orders] [71-140: 0 units] [141-180: 2 units] [181-220: 4 units] [221-260: 6 units] [261-300: 8 units] [301-350: 10 units] [351-400: 12 units] [Greater than 400: 14 units and Call Physician] And insulin lispro (HUMALOG) injection 0-7 UnitsJump to med 0-7 Units, Subcutaneous, Nightly at bedtime, First dose on Thu01/01/24 at 0045, Until Discontinued, Blood Glucose (SENSITIVE Dosing): [Less than 70:? Initiate Hypoglycemia Standing Orders] [71-180: ? 0 units] [181-220:? 2 units] [221-260:? 3 units] [261-300:? 4 units] [301-350:? 5 units] [351- 400:? 6 units] [Greater than 400:? 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
--- OUTSIDE RECORDS SUMMARY | 2024-06-22 18:00 | XMS_ITS | Encounter Summary ---
Author Organization [facility] Address [address] [place] [address]. 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 Name Role Phone Mery Maxwell MD Primary Care Provider [phone] Encounter Details Date Type Department Care Team (Late st Contact Info) Description 09/08/2023 11:25 AM CDT - 09/08/2023 11:59 PM T Hospital Encounter [facility] [address] [place] [address] [place] [address] Mery Maxwell MD [address] [place] [phone] Discharge Disposition: Home or Self Care (Routine Discharge) Social History Tobacco Use Types Packs/Day Years Used Date Smoking Tobacco: Former Cigarettes Smokeless Tobacco: Never Alcohol Use Standard Drinks/Week Comments Not Currently 0 (1 standard drink = 0.6 oz pur e alcohol) [facility] Utilities Answer Date Recorded In the past 12 months has [employer], [employer], or water [employer] threatened to shut off services in your [...] place to sleep or slept in a half-way (including now)? Patient declined 09/01/2023 Sex and [...] Status No 09/01/2023 10:00 PM CDT Paola Obrien, CABRERA Active * Are you blind or do [...] 10:00 PM Paola Whittaker RN Active documented as of this encounter Mental Status * Because of a physical, mental, or emotional condition, do you have serious difficulty concentrating, remembering, or making decisions? Answer Entry Date Author Status Yes 09/01/2023 10:00 PM Paola Whittaker RN Active documented in this encounter Medications [...] times daily. 10/13/2022 02/03/2024 Cholecalciferol 50 MCG (1999 UT) Tab Take 2 Capfuls by mouth [...] mg total) by mouth daily. 05/22/2023 02/26/2024 potassium chloride CR (KLOR-CON M) 20 MEQ tablet Take 1 tablet (20 mEq total) by mouth daily for 5 days. 5 tablet 09/04/2023 09/09/2023 Senna (SENNOSIDES) 8.6 MG tablet Take 1 tablet (8.6 mg total) by mouth daily. 02/03/2024 sevelamer carbonate (RENVELA) 800 MG tablet Take 2 tablets (1,600 mg total) by mouth 3 (three) times daily with meals. 02/03/2024 traMADol (ULTRAM) 50 MG tablet Take 1 tablet (50 mg total) by mouth every 6 (six) hours as needed for Pain. 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 [facility] [place] [phone] Martha Ramirez ANP- [address] [place] [address] documented as of this encounter Procedures Procedure Name Priority Date/Time Associated Diagnosis Comments COMPREHENSIVE METABOLIC PANEL Routine 09/08/2023 10:00 AM CDT Hypertension Hypomagnesemia Hypokalemia CBC W/DIFF AUTOMATED Routine 09/08/2023 10:00 AM CDT Hypertension Hypomagnesemia Hypokalemia MAGNESIUM Routine 09/08/2023 10:00 AM CDT Hypertension Hypomagnesemia Hypokalemia documented in this encounter Results * (ABNORMAL) CBC W/DIFF AUTOMATED (09/08/2023 10:00 AM CDT) WBC 7.88 4.00 - 10.80 x10'3/uL 09/08/2023 11:34 AM CDT [facility] RBC 3.44(L) 4.50 - 6.10 x10'6/uL 09/08/2023 11:34 AM CDT [facility] HGB 11.2(L) 13.0 - 18.0 G/DL 09/08/2023 11:34 AM CDT [facility] HCT 35.2(L) 37.0 - 52.0 % 09/08/2023 11:34 AM CDT [facility] MCV 102.3(H) 78.0 - 100.0 FL 09/08/2023 11:34 AM CDT [facility] MCH 32.6(H) 27.0 - 31.0 PG 09/08/2023 11:34 AM CDT [facility] MCHC 31.8(L) 33.0 - 36.0 G/DL 09/08/2023 11:34 AM CDT [facility] RDW 13.9 11.5 - 14.5 % 09/08/2023 11:34 AM CDT [facility] PLT 268 150 - 350 x10'3/uL 09/08/2023 11:34 AM CDT [facility] MPV 9.9 7.4 - 10.4 FL 09/08/2023 11:34 AM CDT [facility] CBC COMMENT NORMAL REFERENCE RANGE NOT ESTABLISHED FOR THE PROPORTIONAL LEUKOCYTE DIFFERENTIAL. 09/08/2023 11:34 AM CDT [facility] NEUTROPHILS % 65.2 % 09/08/2023 11:34 AM CDT [facility] LYMPHOCYTES % 20.7 % 09/08/2023 11:34 AM CDT [facility] MONOCYTES % 5.8 % 09/08/2023 11:34 AM CDT [facility] EOSINOPHILS % 6.0 % 09/08/2023 11:34 AM CDT [facility] BASOPHILS % 1.3 % 09/08/2023 11:34 AM CDT [facility] IMMATURE GRANS % 1.0 % 09/08/19 11:34 AM CDT [facility] NRBC 0.0 % 09/08/2023 11:34 AM CDT [facility] ABS. NEUTROPHILS 5.14 1.60 - 8.30 x10'3/uL 09/08/2023 11:34 AM CDT [facility] ABS. LYMPHOCYTES 1.63 0.80 - 4.70 x10'3/uL 09/08/2023 11:34 AM CDT [facility] ABS. MONOCYTES 0.46 0.00 - 1.50 x10'3/uL 09/08/2023 11:34 AM T [facility] ABS. EOSINOPHILS 0.47(H) 0.00 - 0.40 x10'3/uL 09/08/2023 11:34 AM T [facility] ABS. BASOPHILS 0.10 0.00 - 0.20 x10'3/uL 09/08/2023 11:34 AM CDT [facility] ABS. IMMATURE GRANULOCYTES 0.08(H) 0.00 - 0.03 x10'3/uL 09/08/2023 11:34 AM T [facility] ABS. NUCLEATED RBC'S 0.00 0.00 x10'3/uL 09/08/2023 11:34 AM T [facility] 09/08/2023 10:0 0 AM CDT us Mery Maxwell MD LABORATORY Final Resu lt [facility] [address] [place] [id number], * MAGNESIUM (09/08/2023 10:00 AM CDT) MAGNESIUM 1.8 1.8 - 2.4 MG/DL 09/08/2023 11:51 AM CDT [facility] 09/08/2023 10:0 0 AM CDT Mery Maxwell MD LABORATORY Final Resu lt Performing Organization Address [facility]/ZIP Co de Phone Number [facility] [address] [place] [address], * (ABNORMAL) COMPREHENSIVE METABOLIC PANEL (09/08/2023 10:00 AM CDT) SODIUM S/P/B 137 136 - 145 MMOL/L 09/08/2023 11:51 AM CDT [facility] POTASSIUM S/P/B 3.6 3.5 - 5.1 MMOL/L 09/08/2023 11:51 AM CDT [facility] CHLORIDE S/P/B 98 98 - 107 MMOL/L 09/08/2023 11:51 AM CDT [facility] CO2 25.5 21.0 - 32.0 MMOL/L 09/08/2023 11:51 AM CDT [facility] GLUCOSE 152(H) 70 - 99 MG/DL 09/08/2023 11:51 AM CDT [facility] Comment: FASTING GLUCOSE 100 TO 125 MG/DL IS CONSISTENT WITH IMPAIRED FASTING GLUCOSE. FASTING GLUCOSE >125 MG/DL IS CONSISTENT WITH DIABETES. RANDOM GLUCOSE >200 MG/DL WITH HYPERGLYCEMIC SYMPTOMS IS CONSISTENT WITH DIABETES. PER ADA GUIDELINES BUN 59(H) 6 - 24 MG/DL 09/08/2023 11:51 AM [facility] CREATININE S/P/B 6.39(H) 0.70 - 1.30 MG/DL 09/08/2023 11:51 AM [facility] CALCIUM S/P/B 9.0 8.4 - 10.5 MG/DL 09/08/2023 11:51 AM [facility] BILIRUBIN TOTAL S/P/B 0.6 0.2 - 1.0 MG/DL 09/08/2023 11:51 AM [facility] Comment: THIS ASSAY IS NOT RECOMMENDED FOR PATIENTS UNDERGOING TREATMENT WITH ELTROMBOPAG DUE TO THE POTENTIAL FOR FALSELY ELEVATED RESULTS. ALKALINE PHOSPHATASE S/P/B 52 45 - 115 U/L 09/08/2023 11:51 AM [facility] AST 14(L) 15 - 37 U/L 09/08/2023 11:51 AM [facility] ALT 17 16 - 63 U/L 09/08/2023 11:51 AM [facility] TOTAL PROTEIN S/P/B 7.9 6.4 - 8.2 G/DL 09/08/2023 11:51 AM [facility] ALBUMIN S/P/B 3.4 3.4 - 5.0 G/DL 09/08/2023 11:51 AM [facility] ANION GAP 13.5 5.0 - 15.0 MMOL/L 09/08/2023 11:51 AM [facility] OSMOLALITY (CALC) 304 MOSM/KG 024 11:51 AM [facility] Comment:REFERENCE RANGE NOT ESTABLISHED GFR ESTIMATE 10(L) >89 ML/MIN/1. 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
--- OUTSIDE RECORDS SUMMARY | 2024-06-22 18:00 | XMS_ITS | Encounter Summary ---
Author Organization [facility] Address [address] [place] [address]. [place], [place] [id number] [place] [address] Care Team Providers Care Beer Runner Name Role Phone Mery Maxwell MD Primary Care Provider [phone]- [phone] Reason for Referral * Imaging (Emergency) - New Request Specialty Diagnoses / Procedures Referred By Flako cardoso Referred To Contact RADIOLOGY Procedures CTA CHEST PE PROTOCOL Kelly Londono MD [address] [place] [address] Phone: tel: fax: Referral ID Status Reason Start Date Expiration Date V isits Requested Visits Authorized [id number] New Request 03/28/2024 03/28/2025 1 1 Reason for Visit * Reason Comments Hemoptysis Encounter Details Date Type Department Care Team ([facility] st Contact Info) Description 03/28/2024 10:29 AM CDT - 03/28/2024 4:22 PM CDT Emergency [facility] [place] [facility] [address] [place] [address] Hemoptysis Discharge Disposition: Transfer to Acute Care Hospital Social History Tobacco Use Types Packs/Day Years Used Date Smoking Tobacco: Former Cigarettes 1 15 Smokeless Tobacco: Never Alcohol Use Standard Drinks/Week Comments Not Currently 0 (1 standard drink = 0.6 oz pur e alcohol) [facility] Utilities Answer Date Recorded In [...] place to sleep or slept in a prison (including now)? Patient declined 09/01/2023 Housing Stability [...] time in the past 12 m [facility], were you homeless or living in a prison (including now)? No 03/28/2024 Sex and Gender Information Value Date Recorded Sex Assigned at Not on file Legal Sex Male 6:24 PM CDT Gender Identity Not on file Sexual Orientation Not on file documented as of this encounter Last Filed Vital Signs Vital Sign Reading Time Taken Comments Blood Pressure 132/75 03/28/2024 4:00 PM CDT Pulse 105 03/28/2024 3:26 PM CDT Temperature 37.3 ??C (99.2 ??F) 03/28/2024 3:26 PM CD T Respiratory Rate 17 03/28/2024 3:26 PM CDT Oxygen Saturation 95% 03/28/2024 4:20 PM CDT Inhaled Oxygen Concentration - - Weight 119.3 kg (263 lb) 03/28/2024 10:30 AM CDT Height 193 cm (6' 4 ) 03/28/2024 10:30 AM CDT Body Mass Index 32.01 03/28/2024 10:30 AM CDT documented in this encounter Functional Status * Are you deaf or do you have serious difficulty hearing Answer Date of Assessment Author Status No 03/28/2024 5:25 PM CDT Christina Mercado Nu rse Senior Audit Manager II Active * Are you blind or do you have serious difficulty seeing, even when wearing glasses? Answer Date of Assessment Author Status No 03/28/2024 5:25 PM CDT Christina Mercado Nu rse Senior Audit Manager II Active * Do you have serious difficulty walking or climbing stairs? Answer Date of Assessment Author Status Yes 03/28/2024 5:25 PM CDT Christina Mercado Nu rse Senior Audit Manager II Active * Do you have difficulty dressing or bathing? Answer Date of Assessment Author Status Yes 03/28/2024 5:25 PM CDT Christina Mercado Nu rse Senior Audit Manager II Active * Because of a physical, mental, or emotional condition, do you have difficulty doing errands alone such as visiting a doctor's office or shopping? Answer Date of Assessment Author Status Yes 03/28/2024 5:25 PM CDT Christina Mercado Nu rse Senior Audit Manager II Active documented as of this encounter Mental Status * Because of a physical, mental, or emotional condition, do you have serious difficulty concentrating, remembering, or making decisions? Answer Entry Date Author Status No 03/28/2024 5:25 PM Christina Avila Nu rse Senior Audit Manager II Active documented in this encounter Medications [...] MINI PEN NEEDLES 31G X 5 MM [facility] 03/02/2024 BD VEO INSULIN SYRINGE U/F 31G X 15/64 0.5 ML [facility] 11/17/2023 Continuous Glucose Transmitter (DEXCOM G6 TRANSMITTER) [facility] 03/08/2024 ELIQUIS 5 MG tablet Take 1 [...] for 5 days. 10 tablet 03/31/2024 04/05/2024 midodrine (PROAMATINE) 10 MG tablet Take 1 tablet (10 mg total) by mouth 3 (three) times daily with meals for 60 days. 90 tablet 1 02/27/2024 03/31/2024 documented as of this encounter ED Notes * Rose Mcmahon RN - 03/28/2024 3:12 PM CDT Gave report to [facility] at [facility] To go to room 1108. * Kelly Londono MD - 03/28/2024 1:32 PM CDT EMERGENCY DEPARTMENT NOTE History and Physical Patient: Aaron Campos Date of : 1970 Subjective: Aaron Campos is a 53-year-old male with history of end-stage renal disease on dialysis Thursday, last dialysis was on Thursday, atrial fibrillation on Eli who presents to ED with chief complaint concern for hemoptysis. Patient states 2 days ago he had some pinkish sputum that came up when he was coughing. States again last night had streaks of blood. Denies any chest pain shortness of breath. Last his Eliquis was this morning. No respiratory distress. Patient provided a picture of the hemoptysis which is streaks of blood in the toilet. No active hemorrhage. Denies any blood in the stool. Triage: Hemoptysis . History: Past Medical History: Past Medical History: Diagnosis Date A-fib (CMS/HCC HHS/HCC) Constipation Diabetes mellitus (CMS/HCC HHS/HCC) ESRD (end stage renal disease) (CMS/HCC HHS/HCC) GERD (gastroesophageal reflux disease) Gout, unspecified High cholesterol Neuropathy 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[facility]) Renal disorder Past Surgical History: Past Surgical History: Procedure Laterality Date FISTULA CANNULATION SET, EA TONSILLECTOMY Family History: Family History Problem Relation Name Age of Onset Diabetes Mother Hypertension Mother Hypertension Father Diabetes Father Alzheimer's disease Father Diabetes Sister Social History: Social History Tobacco Use Smoking status: Former Current packs/day: 1.00 Average packs/day: 1 pack/day for 15.0 years (15.0 ttl pk-yrs) Types: Cigarettes Smokeless tobacco: Never Vaping Use Vaping status: Never Used Substance Use Topics Alcohol use: Not Currently Drug use: Not Currently Review of Systems: Review of Systems ROS negative except as documented elsewhere in note. Physical Exam: Filed Vitals: 03/28/24 1030 BP: (!) 184/85 Pulse: 84 Resp: 16 Temp: 97.4 ??F (36.3 ??C) TempSrc: Temporal SpO2: 95% Weight: 119.3 kg (263 lb) Height: 1.93 m (6' 4 ) Nursing notes reviewed Physical Exam Vitals and nursing note reviewed. Constitutional: Appearance: Normal appearance. He is normal weight. HENT: Head: Normocephalic. Right Ear: External ear normal. Left Ear: External ear normal. Nose: Nose normal. Mouth/Throat: Mouth: Mucous membranes are moist. Eyes: Pupils: Pupils are equal, round, and reactive to light. Cardiovascular: Rate and Rhythm: Normal rate. Pulses: Normal pulses. Pulmonary: Effort: Pulmonary effort is normal. Abdominal: General: Abdomen is flat. Genitourinary: Comments: Rectal exam performed with body press operator Musculoskeletal: General: Normal range of motion. Cervical back: Normal range of motion. Skin: General: Skin is warm. Capillary Refill: Capillary refill takes less than 2 seconds. Neurological: General: No focal deficit present. Mental Status: He is alert and oriented to person, place, and time. Psychiatric: Mood and Affect: Mood normal. Results: Pulse Ox: SpO2: 95 % on . Room air no hypoxia, interpreted by me. Laboratory Data Reviewed: Results for orders placed or performed during [...] Ref Range OCCULT BLOOD FECAL NEGATIVE NEGATIVE Imaging Studies Reviewed: CTA CHEST PE PROTOCOL Final Result by User, [id number] (03/28 1250) [address] [place] [address] Examination: CTA chest. Exam time: 1229 hours. [...] the upper abdomen show no acute process. IMPRESSION: 1. Negative for pulmonary embolism as described. 2. Coronary artery disease. 3. Bilateral gynecomastia. Ordered By: KELLY LONDONO Interpreted By: Hans Gonsalves MD, 03/28/2024 12:42 PM XR CHEST PORTABLE Final Result by User, [email or web address] (03/28 1113) [address] [place] [address] Examination: XR CHEST PORTABLE Exam time: 03/28/2024 11:02 AM Clinical history: Hematemesis. Comparison: Radiograph February 25, 2024 and December 31, 2023. Technique: AP image of the chest. Findings: The heart is normal in size. No vascular congestion or pleural effusion. Hazy left retrocardiac opacities are noted, nonspecific. No pneumothorax identified. Osseous structures appear intact. IMPRESSION: Hazy left retrocardiac opacities are identified. Findings are nonspecific but could represent atelectasis or infection. Given the history of hematemesis consider assessment with CT chest. Ordered By: KELLY LONDONO Interpreted By: Toño Borges MD, 03/28/2024 11:11 AM Interventions: Medications Administered in ED: Medications iopamidol (ISOVUE-370) 76 % injection 93 mL (93 mLs Intravenous Given 03/28/24 1230) Assessment / Plan / MDM: ED Course as of 03/28/24 1334 Mon Mar 28, 2024 1256 Pt on eliquis for afib and coughed up blood. Negative workup and may need pulmonary. No pulmonary available and placed on a wait list for [facility] [DG] 1329 Case d/w dr Mccain and ok for [facility] obs to medicine with tele. [DG] ED Course User Index [DG] Kelly Londono MD PROBLEMS: Ddx associated with the above CC includes but is not limited to: PE, GI bleed, lung mass or tumor Chronic illnesses impacting care: A-fib on Eliquis DATA: Independent historian used: Patient Prior external notes reviewed: None Labs & Imaging ordered/reviewed: Chest x-ray and CT ordered to rule out PE or mass. Discussion of management/testing with consultants: Dr. Mccain accepting physician at [place] RISK: Prescription drug management considered: None Diagnosis and treatment significantly limited by: None Hospitalization considered: Yes transfer to higher level of care for hemoptysis and patient on a blood thinner. May need pulmonary and the scope. We do not have these resources available at [facility] ED Diagnosis: SNOMED CT(R) 1. Hemoptysis HEMOPTYSIS Disposition: No follow-up provider specified. Discharge Medications: New Prescriptions No medications on file @[facility]@ 03/28/24 Kelly Londono MD 03/28/24 1334 Kelly Londono MD 03/28/24 1402 * Kezia Hilario RN - 03/28/2024 12:[address] per stretcher * Kezia Hilario RN - 03/28/2024 10:31 AM CDT Arrives per [facility] with c/o coughing up blood. Reports he had a little bright red blood in sputum yesterday and once today. Pt is on eliquis for h/o afib, which he reports is controlled by meds. Dialysis pt. documented in this encounter Plan of Treatment Upcoming Encounters Date Type Department Care Team (Late st Contact Info) Description 07/20/2024 10:30 AM STAVE MACHINE TENDER Office Visit [facility] [place] [phone] Martha Ramirez, [facility] [address] [place] [address] documented as of this encounter Goals Goal Patient Goal Type Associated Problems Recent Progress Patient-Stated? Author Family - family caregiver with be involved in care transitions and discharge planning Lifestyle No Zakiya Rcoha RN documented as of this encounter Procedures Procedure Name Priority Date/Time Associated Diagnosis Comments CTA CHEST PE PROTOCOL STAT 03/28/2024 12:30 PM CDT OCCULT BLOOD, FECES STAT 03/28/2024 1 2:10 PM CDT PARTIAL THROMBOPLASTIN TIME,PTT STAT 03/28/2024 11:18 AM CDT PROTHROMBIN TIME, VENOUS STAT 03/28/2024 11:18 AM CDT COMPREHENSIVE METABOLIC PANEL STAT 03/28/2024 11:18 AM CDT CBC W/DIFF AUTOMATED STAT 03/28/2024 11:18 AM CDT XR CHEST PORTABLE STAT 03/28/2024 11: 07 AM CDT documented in this encounter Results * CTA CHEST PE PROTOCOL (03/28/2024 12:30 PM CDT) Anatomical Region Laterality Modality Chest Computed Tomogra phy 03/28/2024 12:4 2 PM CDT Impressions 03/28/2024 12:48 PM CDT IMPRESSION: 1. Negative for pulmonary embolism as described. 2. Coronary artery disease. 3. Bilateral gynecomastia. Ordered By: KELLY LONDONO Interpreted By: Hans Gonsalves MD, 03/28/2024 12:42 PM Narrative 03/28/2024 12:48 PM CDT [address] [place] [address] Examination: CTA chest. Exam time: 1229 hours. [...] Procedure Note Hans Gonsalves MD - 03/28/2024 [facility] [address] [place] [address] Examination: CTA chest. Exam time: 1229 hours. [...] By: Hans Gonsalves MD, 03/28/2024 12:42 PM Kelly Londono MD CT Final Result * OCCULT BLOOD, FECES (03/28/2024 12:10 PM CDT) Pathologist [facility] OCCULT BLOOD FECAL NEGATIVE NEGATIVE 03/28/2024 12:19 PM CDT [facility] STOOL SPECIMEN / Unknown 03/28/2024 12:10 PM CDT Kelly Londono MD BODY FLUIDS AND STOOLS ORDER KRIS Final Result [facility] [place] [address], * (ABNORMAL) COMPREHENSIVE METABOLIC PANEL (03/28/2024 11:18 AM CDT) SODIUM S/P/B 136 136 - 145 MMOL/L 03/28/2024 11:55 AM CDT [facility] POTASSIUM S/P/B 4.4 3.5 - 5.1 MMOL/L 03/28/2024 11:55 AM CDT [facility] CHLORIDE S/P/B 97(L) 98 - 107 MMOL/L 03/28/2024 11:55 AM CDT [facility] CO2 28.3 21.0 - 32.0 MMOL/L 03/28/2024 11:55 AM CDT [facility] GLUCOSE 277(H) 70 - 99 MG/DL 03/28/2024 11:55 AM T [facility] Comment: FASTING GLUCOSE 100 TO 125 MG/DL IS CONSISTENT WITH IMPAIRED FASTING GLUCOSE. FASTING GLUCOSE >125 MG/DL IS CONSISTENT WITH DIABETES. RANDOM GLUCOSE >200 MG/DL WITH HYPERGLYCEMIC SYMPTOMS IS CONSISTENT WITH DIABETES. PER ADA GUIDELINES BUN 74(H) 6 - 24 MG/DL 03/28/2024 11:55 AM T [facility] CREATININE S/P/B 6.65(H) 0.70 - 1.30 MG/DL 03/28/2024 11:55 AM T [facility] CALCIUM S/P/B 9.7 8.4 - 10.5 MG/DL 03/28/2024 11:55 AM [facility] BILIRUBIN TOTAL S/P/B 0.5 0.2 - 1.0 MG/DL 03/28/2024 11:55 AM [facility] Comment: THIS ASSAY IS NOT RECOMMENDED FOR PATIENTS UNDERGOING TREATMENT WITH ELTROMBOPAG DUE TO THE POTENTIAL FOR FALSELY ELEVATED RESULTS. ALKALINE PHOSPHATASE S/P/B 56 45 - 115 U/L 03/28/2024 11:55 AM [facility] AST 11(L) 15 - 37 U/L 03/28/2024 11:55 AM [facility] ALT 13(L) 16 - 63 U/L 03/28/2024 11:55 AM [facility] TOTAL PROTEIN S/P/B 7.6 6.4 - 8.2 G/DL 03/28/2024 11:55 AM [facility] ALBUMIN S/P/B 3.3(L) 3.4 - 5.0 G/DL 03/28/2024 11:55 AM [facility] ANION GAP 10.7 5.0 - 15.0 MMOL/L 03/28/2024 11:55 AM [facility] OSMOLALITY (CALC) 314 MOSM/KG 024 11:55 AM [facility] Comment:REFERENCE RANGE NOT ESTABLISHED GFR ESTIMATE 9(L) >89 ML/MIN/1. 73 M2 03/28/2024 11:55 AM CDT [facility] GFR NOTES GFR REFERENCE S: 03/28/2024 11:55 AM CDT [facility] Comment: THE ESTIMATED GFR IS [...] ml/min/1.73 m2 G5,KIDNEY FAILURE: <15 ml/min/1.73 m2 03/28/2024 11:1 8 AM CDT us Kelly Londono MD LABORATORY Final Result [facility] [address] [place] [address], * PARTIAL THROMBOPLASTIN TIME,PTT (03/28/2024 11:18 AM CDT) PTT 35.4 25.1 - 36.5 SEC 03/28/2024 11:39 AM CDT [facility] Comment:THERAPEUTIC RANGE: 4 6.2-77.0 SEC 03/28/2024 11:1 8 AM CDT us Kelly Londono MD LABORATORY Final Result [facility] [address] [place] [address], * (ABNORMAL) PROTIME/INR, VENOUS (03/28/2024 11:18 AM CDT) PROTIME 16.8(H) 9.4 - 12.5 SEC 03/28/2024 11:39 AM CDT [facility] INR 1.5(H) 0.8 - 1.0 03/28/2024 11:39 AM CDT [facility] 03/28/2024 11:1 8 AM CDT Kelly Londono MD LABORATORY Final Result [facility] [address] [place] [address], * (ABNORMAL) CBC W/DIFF AUTOMATED (03/28/2024 11:18 AM CDT) WBC 7.28 4.00 - 10.80 x10'3/uL 03/28/2024 11:27 AM CDT [facility] RBC 3.37(L) 4.50 - 6.10 x10'6/uL 03/28/2024 11:27 AM CDT [facility] HGB 11.2(L) 13.0 - 18.0 G/DL 03/28/2024 11:27 AM CDT [facility] HCT 33.6(L) 37.0 - 52.0 % 03/28/2024 11:27 AM CDT [facility] MCV 99.7 78.0 - 100.0 FL 03/28/2024 11:27 AM CDT [facility] MCH 33.2(H) 27.0 - 31.0 PG 03/28/2024 11:27 AM CDT [facility] MCHC 33.3 33.0 - 36.0 G/DL 03/28/2024 11:27 AM CDT [facility] RDW 13.3 11.5 - 14.5 % 03/28/2024 11:27 AM CDT [facility] PLT 176 150 - 350 x10'3/uL 03/28/2024 11:27 AM CDT [facility] MPV 9.5 7.4 - 10.4 FL 03/28/2024 11:27 AM CDT [facility] CBC COMMENT NORMAL REFERENCE RANGE NOT ESTABLISHED FOR THE PROPORTIONAL LEUKOCYTE DIFFERENTIAL. 03/28/2024 11:27 AM CDT [facility] NEUTROPHILS % 76.3 % 03/28/2024 11:27 AM CDT [facility] LYMPHOCYTES % 15.0 % 03/28/2024 11:27 AM T [facility] MONOCYTES % 5.2 % 03/28/2024 11:27 AM T [facility] EOSINOPHILS % 2.1 % 03/28/2024 11:27 AM CDT [facility] BASOPHILS % 0.7 % 03/28/2024 11:27 AM T [facility] IMMATURE GRANS % 0.7 % 03/28/20 11:27 AM T [facility] NRBC % 0.0 % 03/28/2024 11:27 AM T [facility] ABS. NEUTROPHILS 5.56 1.60 - 8.30 x10'3/uL 03/28/2024 11:27 AM CDT [facility] ABS. LYMPHOCYTES 1.09 0.80 - 4.70 x10'3/uL 03/28/2024 11:27 AM T [facility] ABS. MONOCYTES 0.38 0.00 - 1.50 x10'3/uL 03/28/2024 11:27 AM T [facility] ABS. EOSINOPHILS 0.15 0.00 - 0.40 x10'3/uL 03/28/2024 11:27 AM T [facility] ABS. BASOPHILS 0.05 0.00 - 0.20 x10'3/uL 03/28/2024 11:27 AM T [facility] ABS. IMMATURE GRANULOCYTES 0.05(H) 0.00 - 0.03 x10'3/uL 03/28/2024 11:27 AM T [facility] ABS. NUCLEATED RBC'S 0.00 0.00 - 0.01 x10'3/uL 03/28/2024 11:27 AM T [facility] 03/28/2024 11:1 8 AM CDT us Kelly Londono MD LABORATORY Final Result [facility] [address] [place] [address], * XR CHEST PORTABLE (03/28/2024 11:07 AM CDT) Anatomical Region Laterality Modality Chest Radiographic Susannah ging 03/28/2024 11:1 1 AM CDT Impressions 03/28/2024 11:12 AM CDT IMPRESSION: Hazy left retrocardiac opacities are identified. Findings are nonspecific but could represent atelectasis or infection. Given the history of hematemesis consider assessment with CT chest. Ordered By: KELLY LONDONO Interpreted By: Toño Borges MD, 03/28/2024 11:11 AM Narrative 03/28/2024 11:12 AM CDT [address] [place] [address] Examination: XR CHEST PORTABLE Exam time: 03/28/2024 11:02 AM Clinical history: Hematemesis. Comparison: Radiograph February 25, 2024 and December 31, 2023. Technique: AP image of the chest. Findings: The heart is normal in size. No vascular congestion or pleural effusion. Hazy left retrocardiac opacities are noted, nonspecific. No pneumothorax identified. Osseous structures appear intact. Procedure Note Toño Borges MD - 03/28/[address] [place] [address] Examination: XR CHEST PORTABLE Exam time: 03/28/2024 11:02 AM Clinical history: Hematemesis. Comparison: Radiograph February 25, 2024 and December 31, 2023. Technique: AP image of the chest. Findings: The heart is normal in size. No vascular congestion or pleural effusion.Hazy left retrocardiac opacities are noted, nonspecific. No pneumothoraxidentified. Osseous structures appear intact. IMPRESSION: Hazy left retrocardiac opacities are identified. Findings are nonspecificbut could represent atelectasis or infection. Given the history ofhematemesis consider assessment with CT chest. Ordered By: KELLY LONDONO Interpreted By: Toño Borges MD, 03/28/2024 11:11 AM us Kelly Londono MD GENERAL IMAGING Final Result documented in this encounter Visit Diagnoses Diagnosis Hemoptysis- Primary Hemoptysis, unspecified documented in this encounter Administered Medications Inactive Administered Medications - up to 3 most recent administrations Medication Order MAR Action Action Date Dose Rate Site iopamidol (ISOVUE-370) 76 % injection 93 mL 93 mL, Intravenous, IMG once as needed, Contrast, 1 dose, Starting on Thu03/28/24 at 1230, Until Thu03/28/24 at 1230 Given 03/28/2024 12:30 PM CDT 93 mLs documented in this encounter Active and Recently Administered Medications Times are shown in CDT. PRN Medication Order 03/26/2024 03/27/2024 03/28/2024 iopamidol (ISOVUE-370) 76 % injection 93 mL (COMPLETED) 93 mL, Intravenous, IMG once as needed, Contrast, 1 dose, Starting on Thu03/28/24 at 1230, Until Thu03/28/24 at 1230 1230 (Given - Provid er: Lynda Mcdonnell, RTR) documented in this encounter Care Teams Beer Runner Relationship Specialty Start Date End Date Mery Maxwell MD [address] [place] [phone] PCP - General FAMILY PRACTICE 08/19/23 documented as of this encounter
--- OUTSIDE RECORDS SUMMARY | 2024-06-22 18:00 | XMS_ITS | Encounter Summary ---
Author Organization [facility] Address [address] [place] [address]. [place], [place] [id number] [place] [id number] Care Team Providers Care Elementary [employer] Teacher Name Role Phone Mery Maxwell MD Primary Care Provider [phone] Encounter Details Date Type Department Care Team (Latest Contact Info) Description 09/12/2023 Travel Social History Tobacco Use Types Packs/Day Years Used Date Smoking Tobacco: Former Cigarettes Smokeless Tobacco: Never Alcohol Use Standard Drinks/Week Comments Not Currently 0 (1 standard drink = 0.6 oz pur e alcohol) [facility] Utilities Answer Date Recorded In the [...] place to sleep or slept in a fci (including now)? Patient declined 09/01/2023 Sex and Gender Information Value Date Recorded Sex Assigned at Not on file Legal Sex Male 6:24 PM CDT Gender Identity Not on file Sexual Orientation Not on file documented as of this encounter Functional Status * Are you deaf or do you have serious difficulty hearing Answer Date of Assessment Author Status No 09/01/2023 10:00 PM KELSIT Paola Obrien RN Active * Are you [...] PM KELSIT Paola Obrien, RN Active * Because of a physical, mental, or emotional condition, do you have difficulty doing errands alone such as visiting a doctor's office or shopping? Answer Date of Assessment Author Status Yes 09/01/2023 10:00 PM CDT Paola Obrien, RN Active documented as of this encounter Mental Status * Because of a physical, mental, or emotional condition, do you have serious difficulty concentrating, remembering, or making decisions? Answer Entry Date Author Status Yes 09/01/2023 10:00 PM CDT Paola Obrien, RN Active documented in this encounter Plan of Treatment Upcoming Encounters Date Type Department Care Team (Late st Contact Info) Description 07/20/2024 10:30 AM TRAINING AND QUALITY MANAGER Office Visit [facility] [place] [address] Martha Ramirez [facility] [address] documented as of this encounter Visit Diagnoses Not on filedocumented in this encounter Care Teams [employer] Teacher Relationship Specialty Start Date End Date Mery Maxwell MD [address] [place] [phone] PCP - General FAMILY PRACTICE 08/19/23 documented as of this encounter
--- OUTSIDE RECORDS SUMMARY | 2024-06-22 18:00 | XMS_ITS | Encounter Summary ---
Author Organization [facility] Address [address] [place] [address]. [place], [place] [address] [place] [address] Care Team Providers Care Construction Flagger Name Role Phone Mery Maxwell MD Primary Care Provider +1- [phone] Encounter Details Date Type Department Care Team (Latest Contact Info) Description 10/06/2023 Travel Social History Tobacco Use Types Packs/Day Years Used Date Smoking Tobacco: Former Cigarettes Smokeless Tobacco: Never Alcohol Use Standard Drinks/Week Comments Not Currently 0 (1 standard drink = 0.6 oz pur e alcohol) [facility] Utilities Answer Date Recorded In the [...] place to sleep or slept in a jail (including now)? Patient declined 09/01/2023 Sex and [...] st Contact Info) Description 07/20/2024 10:30 AM TENNIS PROFESSIONAL Office Visit [facility]-[address] [place] [address] Martha Ramirez [facility]-[address] [address] documented as of this encounter Visit Diagnoses Not on filedocumented in this encounter Care Teams Construction Flagger Relationship Specialty Start Date End Date Mery Maxwell MD [address] [place] [phone] PCP - General FAMILY PRACTICE 08/19/23 documented as of this encounter
--- OUTSIDE RECORDS SUMMARY | 2024-06-22 18:01 | XMS_ITS | Encounter Summary ---
Author Organization [facility] Address [address] [place] [address]. [place], [place] [address] [place] [address] Care Team Providers Care Foam Molder Name Role Phone Mery Maxwell MD Primary Care Provider +1- [phone] Encounter Details Date Type Department Care Team (Latest Contact Info) Description 08/19/2023 Travel Social History Tobacco Use Types Packs/Day Years Used Date Smoking Tobacco: Former Cigarettes Smokeless Tobacco: Never Alcohol Use Standard Drinks/Week Comments Not Currently 0 (1 standard drink = 0.6 oz pur e alcohol) Sex and Gender Information Value Date Recorded Sex Assigned at Not on file Legal Sex Male 6:24 PM CDT Gender Identity Not on file Sexual Orientation Not on file documented as of this encounter Plan of Treatment Upcoming Encounters Date Type Department Care Team (Late st Contact Info) Description 07/20/2024 10:30 AM MUTUEL DEPARTMENT MANAGER Office Visit [facility]-[address] [place] [phone] Martha Ramirez, ANP-[address] [address] documented as of this encounter Visit Diagnoses Not on filedocumented in this encounter Care Teams Foam Molder Relationship Specialty Start Date End Date Mery Maxwell MD [address] [place] [phone] PCP - General FAMILY PRACTICE 08/19/23 documented as of this encounter
--- OUTSIDE RECORDS SUMMARY | 2024-06-22 18:01 | XMS_ITS | Encounter Summary ---
Author Organization [facility] Address [address] [place] [address]. [place] [address] [place] [address] Care Team Providers Care Air Compressor Mechanic Name Role Phone Unavailable Primary Care Provider Unavailabl e Encounter Details Date Type Department Care Team (Late st Contact Info) Description 06/05/2009 Emergency [facility] [place] [address] Baltazar Monroe MD Social History Tobacco Use Types Packs/Day Years Used Date Smoking Tobacco: Never Assessed Sex and Gender Information Value Date Recorded Sex Assigned at Not on file Legal Sex Male 6:24 PM CDT Gender Identity Not on file Sexual Orientation Not on file documented as of this encounter Plan of Treatment Upcoming Encounters Date Type Department Care Team (Late st Contact Info) Description 07/20/2024 10:30 AM LONG WALL MINING MACHINE HELPER Office Visit [facility]-[address] [place] [phone] Martha Ramirez, [facility]-[address] [address] documented as of this encounter Visit Diagnoses Not on filedocumented in this encounter
--- OUTSIDE RECORDS SUMMARY | 2024-06-22 18:01 | XMS_ITS | Encounter Summary ---
Author Organization [facility] Address [address] [place] [address]. [place], [place] [address] [place] [address] Care Team Providers Care Aircraft Electrician Name Role Phone Mery Maxwell MD Primary Care Provider +1- [phone] Encounter Details Date Type Department Care Team (Latest Contact Info) Description 08/27/2023 Travel Social History Tobacco Use Types Packs/Day [...] st Contact Info) Description 07/20/2024 10:30 AM MANUFACTURING ENGINEERING MANAGER Office Visit [facility]-[address] [place] [phone] Martha Ramirez, ANP-[address] [address] documented as of this encounter Visit Diagnoses Not on filedocumented in this encounter Care Teams Aircraft Electrician Relationship Specialty Start Date End Date Mery Maxwell MD [address] [place] [phone] PCP - General FAMILY PRACTICE 08/19/23 documented as of this encounter
--- OUTSIDE RECORDS SUMMARY | 2024-06-22 18:01 | XMS_ITS | Encounter Summary ---
Author Organization [facility] Address [address] [place] [address]. [place] [address] [place] [address] Care Team Providers Care Acute Care Clinical Nurse Specialist Name Role Phone Unavailable Primary Care Provider Unavailabl e Encounter Details Date Type Department Care Team (Late st Contact Info) Description 07/22/1998 [place] [address] , Generic Conversion, Social History Tobacco Use Types Packs/Day Years [...] st Contact Info) Description 07/20/2024 10:30 AM EMD TEACHER Office Visit [facility] [place] [phone] Martha Ramirez, [facility]-[address] [address] documented as of this encounter Visit Diagnoses Not on filedocumented in this encounter
--- OUTSIDE RECORDS SUMMARY | 2024-06-22 18:01 | XMS_ITS | Encounter Summary ---
Author Organization [facility] Address [address] [place] [address]. [place], [place] [id number] [place] [address] Care Team Providers Care Transportation Clerk Name Role Phone Mery Maxwell MD Primary Care Provider +1- [phone] Encounter Details Date Type Department Care Team (Latest Contact Info) Description 09/01/2023 Travel Social History Tobacco Use Types Packs/Day Years Used Date Smoking Tobacco: Former Cigarettes Smokeless Tobacco: Never Alcohol Use Standard Drinks/Week Comments Not Currently 0 (1 standard drink = 0.6 oz pur e alcohol) [facility] Utilities Answer Date Recorded In the past [...] nursing home (including now)? Patient declined 09/01/2023 Sex and Gender Information Value Date Recorded Sex Assigned at Not on file Legal Sex Male 6:24 PM CDT Gender Identity Not on file Sexual Orientation Not on file documented as of this encounter Functional Status * Question Answer Date of Assessment Author Status Do you have serious difficulty walking or climbing stairs? Yes 09/01/2023 10:00 PM KELSIT Pinky Obrien RN Active * Question Answer Date of Assessment Author Status Do you have difficulty dressing or bathing? Yes 09/01/2023 10:00 PM KELSIT Stefania Obrien RN Active Because of a physical, mental, or emotional condition, do you have difficulty doing errands alone such as visiting a doctor's office or shopping? Yes 09/01/2023 10:00 PM Pinky Whittaker RN Active * Are you deaf or do you have serious difficulty hearing Answer Date of Assessment Author Status No 09/01/2023 5:02 AM Joy Whittaker RN Active * Are you blind or do you have serious difficulty seeing, even when wearing glasses? Answer Date of Assessment Author Status Yes 09/01/2023 5:02 AM Joy Whittaker RN Active * Do you have serious difficulty walking or climbing stairs? Answer Date of Assessment Author Status No 09/01/2023 5:02 AM Joy Whittaker RN Active * Do you have difficulty dressing or bathing? Answer Date of Assessment Author Status No 09/01/2023 5:02 AM Joy Whittaker RN Active * Because of a physical, mental, or emotional condition, do you have difficulty doing errands alone such as visiting a doctor's office or shopping? Answer Date of Assessment Author Status No 09/01/2023 5:02 AM Joy Whittaker RN Active documented as of this encounter Mental Status * Question Answer Entry Date Author Status Because of a physical, mental, or emotional condition, do you have serious difficulty concentrating, remembering, or making decisions? Yes 09/01/2023 10:00 PM Kelly Whittaker RN Active * Because of a physical, mental, or emotional condition, do you have serious difficulty concentrating, remembering, or making decisions? Answer Entry Date Author Status No 09/01/2023 5:02 AM Joy Whittaker RN Active documented in this encounter Plan of Treatment Upcoming Encounters Date Type Department Care Team (Late st Contact Info) Description 07/20/2024 10:30 AM PRINTER OPERATOR Office Visit [facility]-[address] [phone] Martha Ramirez, [address] [address] documented as of this encounter Visit Diagnoses Not on filedocumented in this encounter Care Teams Transportation Clerk Relationship Specialty Start Date End Date Mery Maxwell MD [address] [place] [phone] PCP - General FAMILY PRACTICE 08/19/23 documented as of this encounter
--- OUTSIDE RECORDS SUMMARY | 2024-06-22 18:01 | XMS_ITS | Encounter Summary ---
Author Organization [facility] Address [address] [place] [address]. [place] [address] [place] [address] Care Team Providers Care File Machine Operator Name Role Phone Unavailable Primary Care Provider Unavailabl e Encounter Details Date Type Department Care Team (Late st Contact Info) Description 04/21/[address] [facility] [place] [address] Radha Carrasco MD Social History Tobacco Use Types Packs/Day [...] st Contact Info) Description 07/20/2024 10:30 AM INSPECTOR AND HAND PACKAGER Office Visit [facility]-[address] [place] [phone] Martha Ramirez, [facility]-[address] [address] documented as of this encounter Visit Diagnoses Not on filedocumented in this encounter
--- OUTSIDE RECORDS SUMMARY | 2024-06-22 18:01 | XMS_ITS | Encounter Summary ---
Author Organization [facility] Address [address] [place] [address]. [place] [address] [place] [address] Care Team Providers Care Senior Nurse Manager Name Role Phone Unavailable Primary Care Provider Unavailabl e Encounter Details Date Type Department Care Team (Late st Contact Info) Description 11/04/1997 [place] [address] , Generic Conversion, Social History Tobacco Use [...] st Contact Info) Description 07/20/2024 10:30 AM VASCULAR SURGEON Office Visit [facility] [place] [phone] Martha Ramirez, [facility]-[address] [address] documented as of this encounter Visit Diagnoses Not on filedocumented in this encounter
--- OUTSIDE RECORDS SUMMARY | 2024-06-22 18:01 | XMS_ITS | Encounter Summary ---
Author Organization [facility] Address [address] [place] [address]. [place] [address] [place] [address] Care Team Providers Care Gas Compressor Operator Name Role Phone Mery Maxwell MD Primary Care Provider [phone]- [phone] Reason for Visit * Reason Comments Dizziness Encounter Details Date Type Department Care Team (Late st Contact Info) Description 08/27/2023 1:56 PM CDT - 08/27/2023 5:57 PM CDT Emergency [facility] [address] [place] [address] Tiago Camargo MD [address] [place] [address] [id number] Dizziness Discharge Disposition: Home or Self Care (Routine [...] Sign Reading Time Taken Comments Blood Pressure 127/63 08/27/2023 5:00 PM CDT Pulse 63 08/27/2023 5:00 PM CDT Temperature 35.8 ??C (96.4 ??F) 08/27/2023 2:03 PM CD T Respiratory Rate 15 08/27/2023 5:00 PM CDT Oxygen Saturation 97% 08/27/2023 5:00 PM CDT Inhaled Oxygen Concentration - - Weight 116.7 kg (257 lb 4.4 oz) 08/27/2023 2:03 PM CDT Height 182.9 cm (6') 08/27/2023 2:03 PM CDT Body Mass Index 34.89 08/27/2023 2:03 PM CDT documented in this encounter Discharge Instructions * Discharge Instructions* Tiago Camargo MD - 08/27/2023 3:38 PM CDT DISCHARGE INSTRUCTIONS Even though you have been discharged from the Emergency Department, there are several things that you should do to ensure that you receive proper care: 1. DO READ your discharge instructions as these contain important information concerning your medical care. 2. If medication has been prescribed for your condition, fill the prescription as soon as possible and follow the directions on the medication. 3. RETURN AT ONCE TO THE EMERGENCY DEPARTMENT if you have any problems or concerns. These include but are not limited to fever, worsening pain(belly, chest, head, etc...), worsening shortness of breath, uncontrollable bleeding, inability to tolerate food and water, or any condition that makes you question your well-being. Also, if your symptoms do not improve in the next 12-24 hours, return to the ER or seek medical care immediately. 4. Be sure to follow up with your regular physician or specialist as instructed at discharge as this is the best way to ensure that you receive the very best of care. If you do not have a primary care physician, please contact a physician group and make an appointment. 5. Please visit [employer] for coupons regarding your prescriptions. It is a free service for you to use and can help reduce the cost of your medication. We would like to thank you for coming today and our hope is that we served you and your family wellduring your stay. You will get a satisfaction survey and I sincerely hope that we met or exceeded your expectations. * Attachments The following attachments cannot be sent through Care Everywhere. * Hypokalemia (Cymraes) documented in this encounter Medications at [...] 3 (three) times daily. SLIDING SCALE 02/03/2024 lactulose 20 GM/30ML solutionIndicatio ns:Constipation Take 30 mLs (20 g total) by mouth 2 (two) times daily as needed (constipation ). 240 mL 08/19/2023 08/29/2023 lanthanum carbonate (FOSRENOL) 1000 MG Chew Tab Chew by mouth 3 (three) times daily with meals. 09/02/2023 midodrine (PROAMATINE) 10 MG tablet Take 1 [...] as of this encounter ED Notes * Obi Stauffer RN - 08/27/2023 4:48 PM CDT [facility] called to transport P.t. back to residence. * Obi Stauffer RN - 08/27/2023 3:41 PM CDT states P.t. is ok to be discharged after IV Potassium has finished infusing. Currently awaiting for infusion to finish. * Tiago Camargo MD - 08/27/2023 2:16 PM CDT Chief Complaint Chief Complaint Patient presents with Dizziness History of Present Illness Patient is a 52-year-old male with a history of diabetes, end-stage renal on dialysis who states that he was getting dialysis when he felt dizzy and short of breath. He was fpc through his dialysis and had to stop and he was brought into the ER. Patient denies any loss of consciousness. Denies any chest pain. Denies any fevers or chills. Denies any nausea or vomiting. No other complaints Medical History ALLERGIES: Review of patient's allergies indicates: Allergen Reactions Amoxicillin Hives MEDICATIONS: Prior to Admission medications Medication Sig Start Date End Date Taking? Authorizing Provider allopurinol (ZYLOPRIM) 100 MG tablet Take 1 tablet (100 mg total) by mouth 2 (two) times daily. 08/03/23 Default History Genericprovider amiodarone (PACERONE) 200 MG tablet Take 2 tablets (400 mg total) by mouth daily. 08/03/23 Default [...] times daily. SLIDING SCALE Default History Genericprovider lactulose 20 GM/30ML solution Take 30 mLs (20 g total) by mouth 2 (two) times daily as needed (constipation). 08/19/23 08/29/23 Aaron Mosher MD lanthanum carbonate (FOSRENOL) 1000 MG Chew Tab Chew by mouth 3 (three) times daily with meals. Default History Genericprovider LANTUS SOLOSTAR 100 UNIT/ML injection (PEN) Inject 15 Units into the skin nightly at bedtime. [...] HISTORY: Past Medical History: Diagnosis Date A-fib ([facility]) Constipation Diabetes mellitus ([facility]) ESRD (end stage renal disease) ([facility]) GERD (gastroesophageal reflux disease) Gout, unspecified High cholesterol Neuropathy 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[facility]) PAST SURGICAL HISTORY: Past Surgical History: Procedure Laterality Date FISTULA CANNULATION SET, EA TONSILLECTOMY FAMILY HISTORY: No family history on file. SOCIAL HISTORY: Social History Tobacco Use Smoking status: Former Types: Cigarettes Smokeless tobacco: Never Substance Use Topics Alcohol use: Not Currently Drug use: Not Currently Review of Systems Review of Systems All other systems reviewed and are negative. Physical Exam Filed Vitals: 08/27/23 1630 08/27/23 1635 08/27/23 1640 08/27/23 1700 BP: (!) 146/67 127/63 Pulse: 62 62 64 63 Resp: 21 22 17 15 Temp: TempSrc: SpO2: 96% 97% 98% 97% Weight: Height: Physical Exam Vitals and nursing note reviewed. Constitutional: General: He is not in acute distress. Appearance: He is well-developed. He is not ill-appearing. HENT: Head: Normocephalic and atraumatic. Nose: Nose normal. Eyes: Conjunctiva/sclera: Conjunctivae normal. Pupils: Pupils are equal, round, and reactive to light. Cardiovascular: Rate and Rhythm: Normal rate and regular rhythm. Heart sounds: Normal heart sounds. Pulmonary: Effort: Pulmonary effort is normal. No respiratory distress. Breath sounds: Normal breath sounds. No wheezing. Abdominal: General: Abdomen is flat. Bowel sounds are normal. There is no distension. Palpations: Abdomen is soft. Tenderness: There is no abdominal tenderness. Musculoskeletal: General: Normal range of motion. Cervical back: Normal range of motion and neck supple. Comments: Dialysis fistula to left forearm. Skin: General: Skin is warm and dry. Neurological: Mental Status: He is alert and oriented to person, place, and time. Diagnostic Studies / Procedures ELECTROCARDIOGRAMS: Results for orders placed or performed during the hospital encounter of 08/27/23 ECG [address] 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: : 1970 Requested By: TIAOG CAMARGO Order Number: [id number] Reading MD: Measurements Intervals Sprague Rate: 62 P: 59 WY: 181 QRS: 12 QRSD: 107 T: 22 QT: 423 QTc: 432 Interpretive Statements SINUS RHYTHM NONSPECIFIC T-WAVE ABNORMALITY LABORATORY STUDIES: Results for orders placed or performed during the hospital encounter of 08/27/23 CBC W/DIFF AUTOMATED Result Value Ref Range WBC 6.80 4.00 - 10.80 x10'3/uL RBC 3.68 (L) 4.50 - 6.10 x10'6/uL HGB 11.8 (L) 13.0 - 18.0 G/DL HCT 37.0 37.0 - 52.0 % MCV 100.5 (H) 78.0 - 100.0 FL MCH 32.1 (H) 27.0 - 31.0 PG MCHC 31.9 (L) 33.0 - 36.0 G/DL RDW 14.7 (H) 11.5 - 14.5 % PLT 198 150 - 350 x10'3/uL MPV 9.7 7.4 - 10.4 FL CBC COMMENT NORMAL REFERENCE RANGE NOT ESTABLISHED FOR THE PROPORTIONAL LEUKOCYTE DIFFERENTIAL. NEUTROPHILS 70.0 % LYMPHOCYTES 15.6 % MONOCYTES 6.8 % EOSINOPHILS 5.7 % BASOPHILS 1.0 % IMMATURE GRANS 0.9 % NRBC 0.0 % ABS. NEUTROPHILS 4.76 1.60 - 8.30 x10'3/uL ABS. LYMPHOCYTES 1.06 0.80 - 4.70 x10'3/uL ABS. MONOCYTES 0.46 0.00 - 1.50 x10'3/uL ABS. EOSINOPHILS 0.39 0.00 - 0.40 x10'3/uL ABS. BASOPHILS 0.07 0.00 - 0.20 x10'3/uL ABS. IMMATURE GRANULOCYTES 0.06 (H) 0.00 - 0.03 x10'3/uL ABS. NUCLEATED RBC'S 0.00 0.00 x10'3/uL COMPREHENSIVE METABOLIC PANEL Result Value Ref Range SODIUM S/P/B 135 (L) 136 - 145 MMOL/L POTASSIUM S/P/B 2.5 (LL) 3.5 - 5.1 MMOL/L CHLORIDE S/P/B 92 (L) 98 - 107 MMOL/L CO2 30.4 21.0 - 32.0 MMOL/L GLUCOSE 193 (H) 70 - 99 MG/DL BUN 31 (H) 6 - 24 MG/DL CREATININE S/P/B 4.00 (H) 0.70 - 1.30 MG/DL CALCIUM S/P/B 9.2 8.4 - 10.5 MG/DL BILIRUBIN TOTAL S/P/B 0.9 0.2 - 1.0 MG/DL ALKALINE PHOSPHATASE S/P/B 54 45 - 115 U/L AST 13 (L) 15 - 37 U/L ALT 11 (L) 16 - 63 U/L TOTAL PROTEIN S/P/B 7.9 6.4 - 8.2 G/DL ALBUMIN S/P/B 3.5 3.4 - 5.0 G/DL ANION GAP 12.6 5.0 - 15.0 MMOL/L OSMOLALITY (CALC) 292 MOSM/KG GFR ESTIMATE 17 (L) >89 ML/MIN/1.73 M2 GFR NOTES GFR REFERENCES: IMAGING STUDIES XR CHEST PORTABLE Final Result by User, [id number] (08/26 143) Examination: Portable chest. Exam time: 1402 hours. Clinical history: Dyspnea. Dizziness. History of renal failure, on dialysis. Comparison: 11/13/2008 ([facility]). Technique: AP upright view. Findings: Allowing for differences in projection and rotation, the cardiomediastinal silhouette is stable. Allowing for projection, the heart size is normal. Pulmonary vascularity is within normal limits. No acute infiltrates or effusions are identified. The visualized bony thorax is stable. IMPRESSION: No significant change. No acute cardiopulmonary process identified. Ordered By: TIAGO CAMARGO Interpreted By: Hans Gonsalves MD, 08/27/2023 2:36 PM ED Course / Medical Decision Making Medical Decision Making Patient is a 52-year-old end-stage renal on dialysis who states that he felt lightheaded while getting dialysis. Patient's potassium is 2.5 which may be causing his lightheadedness. Patient was givenp.o. and IV potassium. Patient's vitals are stable. Patient's hemoglobin is 11. Not severely anemic. Chest x-ray shows no evidence of pneumonia. On reassessment patient is feeling better. Will discharge home with follow-up with PMD. Will not give a prescription for potassium given that patient is on dialysis so there is a risk of hyperkalemia. Orders Placed This Encounter potassium chloride CR (KLOR-CON M) tablet 40 mEq potassium chloride 10 mEq in SW 100 mL IVPB Amount and/or Complexity of Data Reviewed Labs: ordered. Decision-making details documented in ED Course. Radiology: ordered and independent interpretation performed. Decision-making details documented in ED Course. ECG/medicine tests: ordered and independent interpretation performed. Decision- making details documented in ED Course. Details: EKG at 1359 is sinus at a rate of [address] changes. No STEMI. ED Course as of 08/27/23 1808 Cheryl Aug 27, 2023 1517 POTASSIUM S/P/B(!!): 2.5 [AY] ED Course User Index [AY] Tiago Camargo MD Clinical Impression Hypokalemia (Primary) Disposition: Discharge Tiago Camargo MD 08/27/231807 * Chavo Yu RN - 08/27/2023 1:56 PM CDT Pt presents from [facility] where he still had a few hours left to go when he started to develop dizziness,SOB, with a headache, and felt clammy. Pt was A- fib on monitor for ems, NSR in triage. Pain currently 4/10 documented in this encounter Plan of Treatment Upcoming Encounters Date Type Department Care Team (Late st Contact Info) Description 07/20/2024 10:30 AM OWNER/PHOTOGRAPHER Office Visit [facility]-[address] [phone] Martha Ramirez, [place]-[address] [address] documented as of this encounter Procedures Procedure Name Priority Date/Time Associated Diagnosis Comments XR CHEST PORTABLE STAT 08/27/2023 2:3 3 PM CDT COMPREHENSIVE METABOLIC PANEL STAT 08/27/2023 2:25 PM CDT CBC W/DIFF AUTOMATED STAT 08/27/2023 2:25 PM CDT ECG 12-LEAD Routine 08/27/2023 1:59 PM CDT documented in this encounter Results * XR CHEST PORTABLE (08/27/2023 2:33 PM CDT) Anatomical Region Laterality Modality Chest Radiographic Susannah ging 08/27/2023 2:36 PM CDT Impressions 08/27/2023 2:38 PM CDT IMPRESSION: No significant change. No acute cardiopulmonary process identified. Ordered By: TIAGO CAMARGO Interpreted By: Hans Gonsalves MD, 08/27/2023 2:36 PM Narrative 08/27/2023 2:38 PM CDT Examination: Portable chest. Exam time: 1402 hours. Clinical history: Dyspnea. Dizziness. History of renal failure, on dialysis. Comparison: 11/13/2008 ([facility]). Technique: ??AP ??upright view. Findings: Allowing for differences in projection and rotation, the cardiomediastinal silhouette is stable. Allowing for projection, the heart size is normal. Pulmonary vascularity is within normal limits. No acute infiltrates or effusions are identified. The visualized bony thorax is stable. Procedure Note Hans Gonsalves MD - 08/27/2023 Examination: Portable chest. Exam time: 1402 hours. Clinical history: Dyspnea. Dizziness. History of renal failure, ondialysis. Comparison: 11/13/2008 ([facility]). Technique: AP upright view. Findings: Allowing for differences in projection and rotation, thecardiomediastinal silhouette is stable. Allowing for projection, the heartsize is normal. Pulmonary vascularity is within normal limits. No acuteinfiltrates or effusions are identified. The visualized bony thorax isstable. IMPRESSION: No significant change. No acute cardiopulmonary process identified. Ordered By: TIAGO CAMARGO Interpreted By: Hans Gonsalves MD, 08/27/2023 2:36 PM Tiago Camargo MD GENERAL IMAGING Final Result * (ABNORMAL) COMPREHENSIVE METABOLIC PANEL (08/27/2023 2:25 PM CDT) SODIUM S/P/B 135(L) 136 - 145 MMOL/L 08/27/2023 3:06 PM CDT [facility] POTASSIUM S/P/B 2.5(LL) 3.5 - 5.1 MMOL/L 08/27/2023 3:06 PM CDT [facility] Comment: Critical Result(s) Called to and read back by: SVETA REES ER ??at: 15:06:11 ?? 08/27/2023 by NANI. CHLORIDE S/P/B 92(L) 98 - 107 MMOL/L 08/27/2023 3:06 PM T [facility] CO2 30.4 21.0 - 32.0 MMOL/L 08/27/2023 3:06 PM T [facility] GLUCOSE 193(H) 70 - 99 MG/DL 08/27/2023 3:06 PM T [facility] Comment: FASTING GLUCOSE 100 TO 125 MG/DL IS CONSISTENT WITH IMPAIRED FASTING GLUCOSE. FASTING GLUCOSE >125 MG/DL IS CONSISTENT WITH DIABETES. RANDOM GLUCOSE >200 MG/DL WITH HYPERGLYCEMIC SYMPTOMS IS CONSISTENT WITH DIABETES. PER ADA GUIDELINES BUN 31(H) 6 - 24 MG/DL 08/27/2023 3:06 PM T [facility] CREATININE S/P/B 4.00(H) 0.70 - 1.30 MG/DL 08/27/2023 3:06 PM T [facility] CALCIUM S/P/B 9.2 8.4 - 10.5 MG/DL 08/27/2023 3:06 PM [facility] BILIRUBIN TOTAL S/P/B 0.9 0.2 - 1.0 MG/DL 08/27/2023 3:06 PM T [facility] Comment: THIS ASSAY IS NOT RECOMMENDED FOR PATIENTS UNDERGOING TREATMENT WITH ELTROMBOPAG DUE TO THE POTENTIAL FOR FALSELY ELEVATED RESULTS. ALKALINE PHOSPHATASE S/P/B 54 45 - 115 U/L 08/27/2023 3:06 PM T [facility] AST 13(L) 15 - 37 U/L 08/27/2023 3:06 PM T [facility] ALT 11(L) 16 - 63 U/L 08/27/2023 3:06 PM T [facility] TOTAL PROTEIN S/P/B 7.9 6.4 - 8.2 G/DL 08/27/2023 3:06 PM T [facility] ALBUMIN S/P/B 3.5 3.4 - 5.0 G/DL 08/27/2023 3:06 PM CDT [facility] ANION GAP 12.6 5.0 - 15.0 MMOL/L 08/27/2023 3:06 PM CDT [facility] OSMOLALITY (CALC) 292 MOSM/KG 024 3:06 PM CDT [facility] Comment:REFERENCE RANGE NOT ESTABLISHED GFR ESTIMATE 17(L) >89 ML/MIN/1. 73 M2 08/27/2023 3:06 PM CDT [facility] GFR NOTES GFR REFERENCE S: 08/27/2023 3:06 PM CDT [facility] Comment: THE ESTIMATED GFR IS [...] ml/min/1.73 m2 G5,KIDNEY FAILURE: <15 ml/min/1.73 m2 08/27/2023 2:25 PM CDT Tiago Camargo MD LABORATORY Final Result [facility] [address] [place] [address], * (ABNORMAL) CBC W/DIFF AUTOMATED (08/27/2023 2:25 PM CDT) WBC 6.80 4.00 - 10.80 x10'3/uL 08/27/2023 2:45 PM CDT [facility] RBC 3.68(L) 4.50 - 6.10 x10'6/uL 08/27/2023 2:45 PM CDT [facility] HGB 11.8(L) 13.0 - 18.0 G/DL 08/27/2023 2:45 PM CDT [facility] HCT 37.0 37.0 - 52.0 % 08/27/2023 2:45 PM CDT [facility] MCV 100.5(H) 78.0 - 100.0 FL 08/27/2023 2:45 PM CDT [facility] MCH 32.1(H) 27.0 - 31.0 PG 08/27/2023 2:45 PM CDT [facility] MCHC 31.9(L) 33.0 - 36.0 G/DL 08/27/2023 2:45 PM CDT [facility] RDW 14.7(H) 11.5 - 14.5 % 08/27/2023 2:45 PM CDT [facility] PLT 198 150 - 350 x10'3/uL 08/27/2023 2:45 PM CDT [facility] MPV 9.7 7.4 - 10.4 FL 08/27/2023 2:45 PM CDT [facility] CBC COMMENT NORMAL REFERENCE RANGE NOT ESTABLISHED FOR THE PROPORTIONAL LEUKOCYTE DIFFERENTIAL. 08/27/2023 2:45 PM CDT [facility] NEUTROPHILS % 70.0 % 08/27/2023 2:45 PM CDT [facility] LYMPHOCYTES % 15.6 % 08/27/2023 2:45 PM CDT [facility] MONOCYTES % 6.8 % 08/27/2023 2:45 PM CDT [facility] EOSINOPHILS % 5.7 % 08/27/2023 2:45 PM CDT [facility] BASOPHILS % 1.0 % 08/27/2023 2:45 PM CDT [facility] IMMATURE GRANS % 0.9 % 08/27/19 2:45 PM CDT [facility] NRBC 0.0 % 08/27/2023 2:45 PM CDT [facility] ABS. NEUTROPHILS 4.76 1.60 - 8.30 x10'3/uL 08/27/2023 2:45 PM CDT [facility] ABS. LYMPHOCYTES 1.06 0.80 - 4.70 x10'3/uL 08/27/2023 2:45 PM CDT [facility] ABS. MONOCYTES 0.46 0.00 - 1.50 x10'3/uL 08/27/2023 2:45 PM CDT [facility] ABS. EOSINOPHILS 0.39 0.00 - 0.40 x10'3/uL 08/27/2023 2:45 PM CDT [facility] ABS. BASOPHILS 0.07 0.00 - 0.20 x10'3/uL 08/27/2023 2:45 PM CDT [facility] ABS. IMMATURE GRANULOCYTES 0.06(H) 0.00 - 0.03 x10'3/uL 08/27/2023 2:45 PM CDT [facility] ABS. NUCLEATED RBC'S 0.00 0.00 x10'3/uL 08/27/2023 2:45 PM CDT [facility] 08/27/2023 2:25 PM CDT Tiago Camargo MD LABORATORY Final Result [facility] [address] [place] [address], * ECG 12 lead (08/27/2023 1:59 PM CDT) 08/27/2023 1:59 PM CDT Narrative [facility] - 08/28/2023 5:11 PM CDT ? [facility] ?[address] [place], [place] ??[address] ? Test Date: ?2023-08-27 Pat Name: ? AARON CAMPOS ?Department: ?? 3 ? Room: ? EXAM 404 Gender: ? Male ? Smoke And Flame Specialist: ?? : ?1970 ? Requested By: TIAGO YOU Order Number: [id number] ? Reading MD: ?? Kwadwo Brandon ? Measurements Intervals ?[place] ? Rate: ? 62 ? P: ?59 WY: ? 181 ?QRS: ?12 QRSD: ? 107 ?T: ?22 QT: ? 423 ? QTc: ?432 ? Interpretive Statements SINUS RHYTHM NONSPECIFIC T-WAVE ABNORMALITY long qt interval Procedure Note Kwadwo Brandon MD - 08/28/2023 [place] [address] [facility] [place] [address] Test Date: 2023-08-27 Pat Name: AARON CAMPOS Department: 3 Room: EXAM 404 Gender: Male [employer] And Fl[employer] Specialist: : 1970 Requested By: TIAGO CAMARGO Order Number: [id number] Reading MD: Kwadwo Brandon Measurements Intervals [place] Rate: 62 P: 59 WY: 181 QRS: 12 QRSD: 107 T: 22 QT: 423 QTc: 432 Interpretive Statements SINUS RHYTHM NONSPECIFIC T-WAVE ABNORMALITY long qt interval us Tiago Camargo MD ECG ORDERABLES Final Result [facility] documented in this encounter Visit Diagnoses Diagnosis Hypokalemia- Primary Hypopotassemia documented in this encounter Administered Medications Inactive Administered Medications - up to 3 most recent administrations Medication Order MAR Action Action Date Dose Rate Site potassium chloride 10 mEq in SW 100 mL IVPB 10 mEq, Intravenous, Administer over 60 Minutes, Once, 1 dose, On Cheryl 08/27/23 at 1530, MAX rate in peripheral line of 10 mEq per hour. New Bag 08/27/2023 3:33 PM CDT 10 mEq 100 mL/hr potassium chloride CR (KLOR-CON M) tablet 40 mEq 40 mEq, Oral, Once, 1 dose, On Cheryl 08/27/23 at 1530, Do not chew, crush, or suck on tablet. May break in half. May dissolve whole tablet in 120 mL of water and drink immediately. Given 08/27/2023 3:28 PM CDT 40 mEq documented in this encounter Active and Recently Administered Medications Times are shown in CDT. Scheduled Medication Order 08/25/2023 08/26/2023 08/27/2023 potassium chloride 10 mEq in SW 100 mL IVPB (COMPLETED) 10 mEq, Intravenous, Administer over 60 Minutes, Once, 1 dose, On Cheryl 08/27/23 at 1530, MAX rate in peripheral line of 10 mEq per hour. 1533 (New Bag - Prov ider: Obi Stauffer RN)1632 (Infusion Stop Time - Provider: Chavo Yu RN) potassium chloride CR (KLOR-CON M) tablet 40 mEq (COMPLETED) 40 mEq, Oral, Once, 1 dose, On Cheryl 08/27/23 at 1530, Do not chew, crush, or suck on tablet. May break in half. May dissolve whole tablet in 120 mL of water and drink immediately. 1528 (Given - Provid er: Obi Stauffer RN) documented in this encounter Care Teams Gas Compressor Operator Relationship Specialty Start Date End Date Mery Maxwell MD [address] [place] [phone] PCP - General FAMILY PRACTICE 08/19/23 documented as of this encounter
--- OUTSIDE RECORDS SUMMARY | 2024-06-22 18:01 | XMS_ITS | Encounter Summary ---
Author Organization [facility] Address [address] [place] [address]. [place] [address] [place] [address] Care Team Providers Care Rubber Compounder Formulator Name Role Phone Mery Maxwell MD Primary Care Provider [phone] Reason for Referral * Imaging (Emergency) - New Request Specialty Diagnoses / Procedures Referred By Flako cardoso Referred To Contact RADIOLOGY Procedures CT ABD+PEL WO CON Aaron Austin MD [address] [place] [address] Phone: tel: fax: Referral ID Status Reason Start Date Expiration Date V isits Requested Visits Authorized [id number] New Request 08/19/2023 08/18/2024 1 1 UCTION TEAM LEADER Reason for Visit * Reason Comments Hypotension Encounter Details Date Type Department Care Team (Late st Contact Info) Description 08/19/2023 5:13 PM PRODUCTION TEAM LEADER - 08/19/2023 7:16 PM PRODUCTION TEAM LEADER Emergency [place] [facility] [address] [place] [address] Aaron Austin MD [address] [place] [address] Hypotension Discharge Disposition: Home or Self Care (Routine [...] Sign Reading Time Taken Comments Blood Pressure 125/68 08/19/2023 7:00 PM PRODUCTION TEAM LEADER Pulse 73 08/19/2023 7:15 PM PRODUCTION TEAM LEADER Temperature 35.8 ??C (96.4 ??F) 08/19/2023 5:17 PM CS T Respiratory Rate 16 08/19/2023 6:57 PM PRODUCTION TEAM LEADER Oxygen Saturation 95% 08/19/2023 7:15 PM PRODUCTION TEAM LEADER Inhaled Oxygen Concentration - - Weight 121.6 kg (268 lb) 08/19/2023 5:17 PM PRODUCTION TEAM LEADER Height 193 cm (6' 4 ) 08/19/2023 5:17 PM PRODUCTION TEAM LEADER Body Mass Index 32.62 08/19/2023 5:17 PM PRODUCTION TEAM LEADER documented in this encounter Discharge Instructions * Attachments The following attachments cannot be sent through Care Everywhere. * Orthostatic hypotension (Filipino) * Kidney Failure Discharge Instructions (Filipino) * Constipation Discharge Instructions, Adult (Filipino) documented in this encounter Medications at Time [...] as of this encounter ED Notes * Kaur Tyler RN - 08/19/2023 6:40 PM CST Note on wrong patient UCTION TEAM LEADER UCTION TEAM LEADER * Obi Stauffer RN - 08/19/2023 6:39 PM CST [facility] dispatch called to transfer P.t. back to their residence. UCTION TEAM LEADER * Naima Crum RN - 08/19/2023 5:40 PM CST PT ARRIVES VIA EMS FROM PCP OFFICE. PT WAS TRYING TO ESTABLISH CARE. PT WAS STATES HE WAS NOT FEELING WELL PT SBP WAS IN THE 80S. PT BP 115/71 C/O LEFT SIDED ABD PAIN. RATES PAIN 8/10 UCTION TEAM LEADER * Aaron Austin MD - 08/19/2023 5:19 PM CST eMERGENCY dEPARTMENT eNCOUnter CHIEF COMPLAINT Chief Complaint Patient presents with Hypotension HPI HPI Aaron Campos is a 52-year-old male who presents to the ER with a complaint of low blood pressureleft-sided pain. Patient has a history of diabetes chronic renal failure Thursday dialysis schedule. He apparently has recently relocated to this area about a week or so ago. He has been living at his sisters. He had his dialysis yesterday and everything went fine. He presented to Dr. Maxwell's office today as a new patient and they noted that his blood pressure was in the 80s systolic he is complaining of left-sided abdominal pain. He has history of atrial fibrillation. EMS wascalled to transport him to the emergency department where upon arrival I discussed the patient withthem. Their blood pressures in the prehospital setting were in the normal range. Patient states he has not been sick with anything recently the pain is on the left side of the abdomen is not sure what is causing it. He states that typical blood pressure for him is 120. He has not been sick with anything recently. He urinates about once a day. ALLERGIES Review of patient's allergies indicates: Allergen Reactions Amoxicillin Hives CURRENT MEDICATIONS Current Outpatient Medications Medication Sig allopurinol (ZYLOPRIM) 100 MG tablet Take 1 tablet (100 mg total) by mouth 2 (two) times daily. amiodarone (PACERONE) 200 MG tablet Take 2 tablets (400 mg total) by mouth daily. atorvastatin (LIPITOR) [...] total) by mouth 2 (two) times daily. fluticasone propionate (FLONASE) 50 MCG/ACT nasal spray 1 spray by Nasal route daily. gabapentin (NEURONTIN) 100 MG capsule Take 1 capsule (100 mg total) by mouth 2 (two) times a day. insulin lispro, 1 Unit Dial, (HUMALOG) 100 UNIT/ML injection (PEN) Inject 8 Units into the skin 3 (three) times daily before meals. insulin lispro, 1 Unit Dial, (HUMALOG) 100 UNIT/ML injection (PEN) Inject 1-6 Units into the skin 3(three) times daily. SLIDING SCALE lactulose 20 GM/30ML solution Take 30 mLs (20 g total) by mouth 2 (two) times daily as needed (constipation). lanthanum carbonate (FOSRENOL) 1000 MG Chew Tab Chew by mouth 3 (three) times daily with meals. LANTUS SOLOSTAR 100 UNIT/ML injection (PEN) Inject 15 Units into the skin nightly at bedtime. midodrine (PROAMATINE) 10 MG tablet Take 1 tablet (10 mg total) by mouth 3 (three) times daily. pantoprazole EC (PROTONIX) 40 MG tablet Take 1 tablet (40 mg total) by mouth daily. Senna (SENNOSIDES) 8.6 MG tablet Take [...] every 6 hours as needed for pain PAST MEDICAL HISTORY Past Medical History: Diagnosis Date A-fib ([facility]) ([facility]) Constipation Diabetes mellitus ([facility]) ([facility]) ESRD (end stage renal disease) ([facility]) ([facility]) GERD (gastroesophageal reflux disease) Gout, unspecified High cholesterol Neuropathy 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[facility]) SURGICAL HISTORY Past Surgical History: Procedure Laterality Date FISTULA CANNULATION SET, EA TONSILLECTOMY SOCIAL HISTORY Social History Socioeconomic History Marital status: Unknown Tobacco Use Smoking status: Former Types: Cigarettes Smokeless tobacco: Never Substance and Sexual Activity Alcohol use: Not Currently Drug use: Not Currently Sexual activity: Not Currently FAMILY HISTORY No family history on file. REVIEW OF SYSTEMS Review of Systems All other ROS negative unless noted above in HPI. PHYSICAL EXAM Physical Exam Filed Vitals: 08/19/23 1717 08/19/23 1735 08/19/23 1825 BP: (!) 115/94 127/65 111/71 Pulse: 74 70 79 Resp: 21 26 30 Temp: 96.4 ??F (35.8 ??C) TempSrc: Temporal SpO2: 100% 98% 99% Weight: 121.6 kg (268 lb) Height: 1.93 m (6' 4 ) The patient is a chronically ill-appearing adult male in no distress, alert and oriented. HEENT: PERRL, EOMI Nose without drainage Throat without lesions, mucous membranes moist NECK: Supple without adenopathy or rigidity CHEST: Lungs clear and equal to auscultation Heart regular rate and rhythm without murmur ABD: Soft, NABS, non tender, questionable ascites EXT: No clubbing, cyanosis, edema, fistula left forearm NEURO: CN II-XII intact, no focal weakness SKIN: No rash or significant lesions EKG EKG on my read shows atrial fibrillation with a controlled ventricular response no obvious acute ischemic changes RADIOLOGY CT ABD+PEL WO CON Final Result by User, [id number] (08/18 1828) EXAMINATION: CT abdomen/pelvis without contrast HISTORY: Abdominal pain. Bilateral flank pain. History of chronic kidney disease. Concern for renal calculi. COMPARISON: None. TECHNIQUE: Axial CT images of the abdomen and pelvis without the use of intravenous contrast . Sagittal and coronal reformatted image sets. A dose lowering technique was used for this procedure, which may include, but is not limited to, dose reduction technique, automated exposure control, the use of degenerative reconstruction, and ALARA/image gently techniques. FINDINGS: Lower chest: Trace left pleural effusion. There are cardiac calcifications. Upper abdomen: The liver is normal in size and contour. There is what appears to be high density sludge within the gallbladder. There are small gallstones. No evidence of gallbladder inflammation. No biliary ductal dilatation. No acute-appearing pancreatic abnormalities. The spleen is normally sized. There are no adrenal masses. Kidneys: There are bilateral renal vascular calcifications. No hydronephrosis or nephrolithiasis. There is no urolithiasis. There are vascular calcifications adjacent to the distal ureters bilaterally. There is a technically indeterminant small exophytic left renal cyst. Further evaluation with MRI of the abdomen with/without contrast is recommended. Vascular: There is atherosclerotic calcification of the abdominal aorta which remains normal caliber. Bowel/mesentery: No ascites or free intraperitoneal air. The rectum is distended with gas and fecal material. There is rectal wall thickening with mild adjacent edema. The appearance is suggestive of stercoral colitis. No evidence of perforation or abscess formation. There is diffuse mild prominence of the entire colon, potentially related to ileus. The small bowel loops are nondilated. No acute appearing gastric abnormalities. Pelvis: No bladder wall thickening. There are multiple pelvic phleboliths. There are small bilateral fat-containing inguinal hernias. Trace free pelvic fluid. Osseous: There are multi site degenerative changes throughout the spine and pelvis. No acute osseous abnormalities are identified. Other findings: None. IMPRESSION: 1. The rectum is distended with gas and fecal material. There is rectal wall thickening with mild adjacent edema. The appearance is suggestive of stercoral colitis. 2. No evidence of perforation or abscess formation. 3. There is diffuse mild prominence of the entire colon, potentially related to ileus. The small bowel loops are nondilated. 4. Extensive bilateral renal vascular calcifications. No hydronephrosis, nephrolithiasis, or urolithiasis. 5. There is a technically indeterminant small exophytic left renal cyst. Further evaluation with MRI of the abdomen with/without contrast is recommended on a nonemergent basis. 6. Trace left pleural effusion. 7. There is what appears to be high density sludge within the gallbladder. There are small gallstones. No evidence of gallbladder inflammation. Ordered By: AARON AUSTIN Interpreted By: Jimmy Corado DO, 08/19/2023 6:23 PM LABS Results for orders placed or performed during the hospital encounter of 08/19/23 CBC W/DIFF AUTOMATED Result Value Ref Range WBC 8.47 4.00 - 10.80 x10'3/uL RBC 3.86 (L) 4.50 - 6.10 x10'6/uL HGB 12.4 (L) 13.0 - 18.0 G/DL HCT 39.2 37.0 - 52.0 % MCV 101.6 (H) 78.0 - 100.0 FL MCH 32.1 (H) 27.0 - 31.0 PG MCHC 31.6 (L) 33.0 - 36.0 G/DL RDW 15.2 (H) 11.5 - 14.5 % PLT 218 150 - 350 x10'3/uL MPV 9.8 7.4 - 10.4 FL CBC COMMENT NORMAL REFERENCE RANGE NOT ESTABLISHED FOR THE PROPORTIONAL LEUKOCYTE DIFFERENTIAL. NEUTROPHILS 70.2 % LYMPHOCYTES 16.6 % MONOCYTES 6.8 % EOSINOPHILS 4.5 % BASOPHILS 0.8 % IMMATURE GRANS 1.1 % NRBC 0.0 % ABS. NEUTROPHILS 5.94 1.60 - 8.30 x10'3/uL ABS. LYMPHOCYTES 1.41 0.80 - 4.70 x10'3/uL ABS. MONOCYTES 0.58 0.00 - 1.50 x10'3/uL ABS. EOSINOPHILS 0.38 0.00 - 0.40 x10'3/uL ABS. BASOPHILS 0.07 0.00 - 0.20 x10'3/uL ABS. IMMATURE GRANULOCYTES 0.09 (H) 0.00 - 0.03 x10'3/uL ABS. NUCLEATED RBC'S 0.00 0.00 x10'3/uL COMPREHENSIVE METABOLIC PANEL Result Value Ref Range SODIUM S/P/B 137 136 - 145 MMOL/L POTASSIUM S/P/B 3.3 (L) 3.5 - 5.1 MMOL/L CHLORIDE S/P/B 96 (L) 98 - 107 MMOL/L CO2 27.1 21.0 - 32.0 MMOL/L GLUCOSE 282 (H) 70 - 99 MG/DL BUN 45 (H) 6 - 24 MG/DL CREATININE S/P/B 6.11 (H) 0.70 - 1.30 MG/DL CALCIUM S/P/B 8.9 8.4 - 10.5 MG/DL BILIRUBIN TOTAL S/P/B 0.5 0.2 - 1.0 MG/DL ALKALINE PHOSPHATASE S/P/B 73 45 - 115 U/L AST 5 (L) 15 - 37 U/L ALT <6 (L) 16 - 63 U/L TOTAL PROTEIN S/P/B 7.9 6.4 - 8.2 G/DL ALBUMIN S/P/B 3.4 3.4 - 5.0 G/DL ANION GAP 13.9 5.0 - 15.0 MMOL/L OSMOLALITY (CALC) 306 MOSM/KG GFR ESTIMATE 10 (L) >89 ML/MIN/1.73 M2 GFR NOTES GFR REFERENCES: TROPONIN, QUANT Result Value Ref Range TROPONIN I HIGH SENSITIVITY 7 0 - 76 ng/L ED MEDICATIONS Medications traMADol (ULTRAM) tablet 50 mg (has no administration in time range) midodrine (PROAMATINE) tablet 10 mg (has no administration in time range) PROCEDURES Procedures CONSULTS: ED COURSE & MEDICAL DECISION MAKING MDM Amount and/or Complexity of Data Reviewed Clinical lab tests: reviewed Tests in the radiology section of CPT??: reviewed Tests in the medicine section of CPT??: reviewed ED Course as of 08/19/231837Aug 19, 20231807 TROPONIN, QUANT [WM] 180 COMPREHENSIVE METABOLIC PANEL(!) [WM] 180 CBC W/DIFF AUTOMATED(!) Laboratory studies show elevated blood glucose with evidence of chronic kidney disease but normal troponin white count and hemoglobin. [WM] 183 CT ABD+PEL WO CON CT scan result is noted. [WM] ED Course User Index [WM] Aaron Austin MD Patient presents with history of low blood pressure chronic renal failure dialysis diabetes atrial fibrillation with left-sided abdominal pain. Will initiate a workup. Currently his blood pressure isstable. Patient's sister called and says he has a history of dropping his blood pressure when he sits up inhis wheelchair. He is on midodrine 3 times a day did not take his midday dose today. He is also having left shoulder pain has been diagnosed with the patient nerve. Blood pressure has been stable here when lying flat. His workup appears to show stable but serious chronic medical conditions. Given his midodrine dose as well as starting on medication for his pain and constipation. He is comfortable going home will have his dialysis tomorrow and follow-up with primary care return if worse. FINAL IMPRESSION SNOMED CT(R) 1. Postural hypotension ORTHOSTATIC HYPOTENSION 2. Chronic renal failure CHRONIC RENAL FAILURE 3. Left shoulder pain PAIN OF LEFT SHOULDER REGION 4. Constipation CONSTIPATION Mery Maxwell MD [address] [place] [phone] Schedule an appointment as soon as possible for a visit New Prescriptions LACTULOSE 20 GM/30ML SOLUTION Take 30 mLs (20 g total) by mouth 2 (two) times daily as needed (constipation). TRAMADOL (ULTRAM) 50 MG TABLET Indications: Acute Pain < 7 Day Supply 1-2 every 6 hours as needed for pain Aaron Austin MD 08/19/23 1838 UCTION TEAM LEADER documented in this encounter Plan of Treatment Upcoming Encounters Date Type Department Care Team (Late st Contact Info) Description 07/20/2024 10:30 AM PRODUCTION TEAM LEADER Office Visit [facility] [place] [phone] Martha Ramirez, [facility]-[address] [address] documented as of this encounter Procedures Procedure Name Priority Date/Time Associated Diagnosis Comments CT ABD+PEL WO CON STAT 08/19/2023 6:1 2 PM PRODUCTION TEAM LEADER ECG 12-LEAD Routine 08/19/2023 5:41 PM PRODUCTION TEAM LEADER COMPREHENSIVE METABOLIC PANEL STAT 08/19/2023 5:32 PM PRODUCTION TEAM LEADER CBC W/DIFF AUTOMATED STAT 08/19/2023 5:32 PM PRODUCTION TEAM LEADER TROPONIN, QUANT STAT 08/19/2023 5:32 PM PRODUCTION TEAM LEADER documented in this encounter Results * CT ABD+PEL WO CON (08/19/2023 6:12 PM PRODUCTION TEAM LEADER) Anatomical Region Laterality Modality Abdomen Computed Tomogra phy 08/19/2023 6:23 PM PRODUCTION TEAM LEADER Impressions 08/19/2023 6:28 PM PRODUCTION TEAM LEADER IMPRESSION: 1. The rectum is distended with gas and fecal material. There is rectal wall thickening with mild adjacent edema. The appearance is suggestive of stercoral colitis. 2. No evidence of perforation or abscess formation. 3. There is diffuse mild prominence of the entire colon, potentially related to ileus. The small bowel loops are nondilated. 4. Extensive bilateral renal vascular calcifications. No hydronephrosis, nephrolithiasis, or urolithiasis. 5. There is a technically indeterminant small exophytic left renal cyst. Further evaluation with MRI of the abdomen with/without contrast is recommended on a nonemergent basis. 6. Trace left pleural effusion. 7. There is what appears to be high density sludge within the gallbladder. There are small gallstones. No evidence of gallbladder inflammation. Ordered By: AARON AUSTIN Interpreted By: Jimmy Corado DO, 08/19/2023 6:23 PM Narrative 08/19/2023 6:28 PM PRODUCTION TEAM LEADER EXAMINATION: CT abdomen/pelvis without contrast HISTORY: Abdominal pain. Bilateral flank pain. History of chronic kidney disease. Concern for renal calculi. COMPARISON: None. TECHNIQUE: Axial CT images of the abdomen and pelvis without the use of intravenous contrast . Sagittal and coronal reformatted image sets. A dose lowering technique was used for this procedure, which may include, but is not limited to, dose reduction technique, automated exposure control, the use of degenerative reconstruction, and ALARA/image gently techniques. FINDINGS: Lower chest: Trace left pleural effusion. There are cardiac calcifications. Upper abdomen: The liver is normal in size and contour. There is what appears to be high density sludge within the gallbladder. There are small gallstones. No evidence of gallbladder inflammation. No biliary ductal dilatation. No acute-appearing pancreatic abnormalities. The spleen is normally sized. There are no adrenal masses. Kidneys: There are bilateral renal vascular calcifications. No hydronephrosis or nephrolithiasis. There is no urolithiasis. There are vascular calcifications adjacent to the distal ureters bilaterally. There is a technically indeterminant small exophytic left renal cyst. Further evaluation with MRI of the abdomen with/without contrast is recommended. Vascular: There is atherosclerotic calcification of the abdominal aorta which remains normal caliber. Bowel/mesentery: No ascites or free intraperitoneal air. The rectum is distended with gas and fecal material. There is rectal wall thickening with mild adjacent edema. The appearance is suggestive of stercoral colitis. No evidence of perforation or abscess formation. There is diffuse mild prominence of the entire colon, potentially related to ileus. The small bowel loops are nondilated. No acute appearing gastric abnormalities. Pelvis: No bladder wall thickening. There are multiple pelvic phleboliths. There are small bilateral fat-containing inguinal hernias. Trace free pelvic fluid. Osseous: There are multi site degenerative changes throughout the spine and pelvis. No acute osseous abnormalities are identified. Other findings: None. Procedure Note Jimmy Corado, - 08/19/2023 EXAMINATION: CT abdomen/pelvis without contrast HISTORY: Abdominal pain. Bilateral flank pain. History of chronic kidney disease.Concern for renal calculi. COMPARISON: None. TECHNIQUE: Axial CT images of the abdomen and pelvis without the use of intravenouscontrast . Sagittal and coronal reformatted image sets. A dose lowering technique was used for this procedure, which may include,but is not limited to, dose reduction technique, automated exposurecontrol, the use of degenerative reconstruction, and ALARA/image gentlytechniques. FINDINGS: Lower chest: Trace left pleural effusion. There are cardiaccalcifications. Upper abdomen: The liver is normal in size and contour. There is whatappears to be high density sludge within the gallbladder. There are smallgallstones. No evidence of gallbladder inflammation. No biliary ductaldilatation. No acute-appearing pancreatic abnormalities. The spleen isnormally sized. There are no adrenal masses. Kidneys: There are bilateral renal vascular calcifications. Nohydronephrosis or nephrolithiasis. There is no urolithiasis. There arevascular calcifications adjacent to the distal ureters bilaterally. Thereis a technically indeterminant small exophytic left renal cyst. Furtherevaluation with MRI of the abdomen with/without contrast is recommended. Vascular: There is atherosclerotic calcification of the abdominal aortawhich remains normal caliber. Bowel/mesentery: No ascites or free intraperitoneal air. The rectum isdistended with gas and fecal material. There is rectal wall thickeningwith mild adjacent edema. The appearance is suggestive of stercoralcolitis. No evidence of perforation or abscess formation. There is diffusemild prominence of the entire colon, potentially related to ileus. Thesmall bowel loops are nondilated. No acute appearing gastricabnormalities. Pelvis: No bladder wall thickening. There are multiple pelvic phleboliths.There are small bilateral fat-containing inguinal hernias. Trace freepelvic fluid. Osseous: There are multi site degenerative changes throughout the spineand pelvis. No acute osseous abnormalities are identified. Other findings: None. IMPRESSION: 1. The rectum is distended with gas and fecal material. There is rectalwall thickening with mild adjacent edema. The appearance is suggestive ofstercoral colitis. 2. No evidence of perforation or abscess formation. 3. There is diffuse mild prominence of the entire colon, potentiallyrelated to ileus. The small bowel loops are nondilated. 4. Extensive bilateral renal vascular calcifications. No hydronephrosis,nephrolithiasis, or urolithiasis. 5. There is a technically indeterminant small exophytic left renal cyst.Further evaluation with MRI of the abdomen with/without contrast isrecommended on a nonemergent basis. 6. Trace left pleural effusion. 7. There is what appears to be high density sludge within the gallbladder.There are small gallstones. No evidence of gallbladder inflammation. Ordered By: AARON AUSTIN Interpreted By: Jimmy Corado DO, 08/19/2023 6:23 PM us Aaron Austin MD CT Final Result * ECG 12 lead (08/19/2023 5:41 PM PRODUCTION TEAM LEADER) 08/19/2023 5:41 PM PRODUCTION TEAM LEADER Narrative [facility] - 08/19/2023 5:44 PM PRODUCTION TEAM LEADER ? [facility] ?[address] [place], [place] ??[address] ? Test Date: ?2023-08-19 Pat Name: ? AARON CAMPOS ?Department: ?? 3 ? Room: ? EXAM 505 Gender: ? Male ? Predatory Hunter: ?? : ?1970 ? Requested By: AARON AUSTIN Order Number: [id number] ? Reading MD: ?? Effie Loja ? Measurements Intervals ?[place] ? Rate: ? 65 ? P: ? NM: ? 0 ?QRS: ?4 QRSD: ? 95 ? T: ?0 QT: ? 323 ? QTc: ?338 ? Interpretive Statements ATRIAL FIBRILLATION SEPTAL MYOCARDIAL INFARCTION , PROBABLY OLD UCTION TEAM LEADER Procedure Note Effie Loja MD - 08/19/2023 [address] [place] [address] Test Date: 2023-08-19 Pat Name: AARON BURKSGRZEGORZ Department: 3 Room: EXAM 505 Gender: Male Predatory Hunter: : 1970 Requested By: AARON AUSTIN Order Number: [id number] Reading MD: Effie Loja Measurements Intervals [place] Rate: 65 P: NM: 0 QRS: 4 QRSD: 95 T: 0 QT: 323 QTc: 338 Interpretive Statements ATRIAL FIBRILLATION SEPTAL MYOCARDIAL INFARCTION , PROBABLY OLD UCTION TEAM LEADER us Aaron Ausitn MD ECG ORDERABLES Final Result Performing Organization Address [facility] de Phone Number [facility] * TROPONIN, QUANT (08/19/2023 5:32 PM PRODUCTION TEAM LEADER) TROPONIN I HIGH SENSITIVITY 7 0 - 76 ng/L 08/19/2023 5:59 PM PRODUCTION TEAM LEADER [facility] 08/19/2023 5:32 PM PRODUCTION TEAM LEADER Aaron Austin MD LABORATORY Final Result Performing Organization Address [facility] de Phone Number [facility] [address] [id number], * (ABNORMAL) COMPREHENSIVE METABOLIC PANEL (08/19/2023 5:32 PM PRODUCTION TEAM LEADER) SODIUM S/P/B 137 136 - 145 MMOL/L 08/19/2023 5:59 PM [facility] POTASSIUM S/P/B 3.3(L) 3.5 - 5.1 MMOL/L 08/19/2023 5:59 PM [facility] CHLORIDE S/P/B 96(L) 98 - 107 MMOL/L 08/19/2023 5:59 PM [facility] CO2 27.1 21.0 - 32.0 MMOL/L 08/19/2023 5:59 PM [facility] GLUCOSE 282(H) 70 - 99 MG/DL 08/19/2023 5:59 PM [facility] Comment: FASTING GLUCOSE 100 TO 125 MG/DL IS CONSISTENT WITH IMPAIRED FASTING GLUCOSE. FASTING GLUCOSE >125 MG/DL IS CONSISTENT WITH DIABETES. RANDOM GLUCOSE >200 MG/DL WITH HYPERGLYCEMIC SYMPTOMS IS CONSISTENT WITH DIABETES. PER ADA GUIDELINES BUN 45(H) 6 - 24 MG/DL 08/19/2023 5:59 PM [facility] CREATININE S/P/B 6.11(H) 0.70 - 1.30 MG/DL 08/19/2023 5:59 PM [facility] CALCIUM S/P/B 8.9 8.4 - 10.5 MG/DL 08/19/2023 5:59 PM [facility] BILIRUBIN TOTAL S/P/B 0.5 0.2 - 1.0 MG/DL 08/19/2023 5:59 PM [facility] Comment: THIS ASSAY IS NOT RECOMMENDED FOR PATIENTS UNDERGOING TREATMENT WITH ELTROMBOPAG DUE TO THE POTENTIAL FOR FALSELY ELEVATED RESULTS. ALKALINE PHOSPHATASE S/P/B 73 45 - 115 U/L 08/19/2023 5:59 PM [facility] AST 5(L) 15 - 37 U/L 08/19/2023 5:59 PM [facility] ALT <6(L) 16 - 63 U/L 08/19/2023 5:59 PM PRODUCTION TEAM LEADER [facility] TOTAL PROTEIN S/P/B 7.9 6.4 - 8.2 G/DL 08/19/2023 5:59 PM PRODUCTION TEAM LEADER [facility] ALBUMIN S/P/B 3.4 3.4 - 5.0 G/DL 08/19/2023 5:59 PM PRODUCTION TEAM LEADER [facility] ANION GAP 13.9 5.0 - 15.0 MMOL/L 08/19/2023 5:59 PM PRODUCTION TEAM LEADER [facility] OSMOLALITY (CALC) 306 MOSM/KG 024 5:59 PM PRODUCTION TEAM LEADER [facility] Comment:REFERENCE RANGE NOT ESTABLISHED GFR ESTIMATE 10(L) >89 ML/MIN/1. 73 M2 08/19/2023 5:59 PM PRODUCTION TEAM LEADER [facility] GFR NOTES GFR REFERENCE S: 08/19/2023 5:59 PM PRODUCTION TEAM LEADER [facility] Comment: THE ESTIMATED GFR IS CALCULATED [...] ml/min/1.73 m2 G5,KIDNEY FAILURE: <15 ml/min/1.73 m2 08/19/2023 5:32 PM PRODUCTION TEAM LEADER us Aaron Austin MD LABORATORY Final Result [facility] [address] [place] [address], * (ABNORMAL) CBC W/DIFF AUTOMATED (08/19/2023 5:32 PM PRODUCTION TEAM LEADER) WBC 8.47 4.00 - 10.80 x10'3/uL 08/19/2023 5:41 PM [facility] RBC 3.86(L) 4.50 - 6.10 x10'6/uL 08/19/2023 5:41 PM [facility] HGB 12.4(L) 13.0 - 18.0 G/DL 08/19/2023 5:41 PM [facility] HCT 39.2 37.0 - 52.0 % 08/19/2023 5:41 PM [facility] MCV 101.6(H) 78.0 - 100.0 FL 08/19/2023 5:41 PM [facility] MCH 32.1(H) 27.0 - 31.0 PG 08/19/2023 5:41 PM [facility] MCHC 31.6(L) 33.0 - 36.0 G/DL 08/19/2023 5:41 PM [facility] RDW 15.2(H) 11.5 - 14.5 % 08/19/2023 5:41 PM [facility] PLT 218 150 - 350 x10'3/uL 08/19/2023 5:41 PM [facility] MPV 9.8 7.4 - 10.4 FL 08/19/2023 5:41 PM [facility] CBC COMMENT NORMAL REFERENCE RANGE NOT ESTABLISHED FOR THE PROPORTIONAL LEUKOCYTE DIFFERENTIAL. 08/19/2023 5:41 PM [facility] NEUTROPHILS % 70.2 % 08/19/2023 5:41 PM [facility] LYMPHOCYTES % 16.6 % 08/19/2023 5:41 PM [facility] MONOCYTES % 6.8 % 08/19/2023 5:41 PM [facility] EOSINOPHILS % 4.5 % 08/19/2023 5:41 PM [facility] BASOPHILS % 0.8 % 08/19/2023 5:41 PM [facility] IMMATURE GRANS % 1.1 % 08/19/19 5:41 PM [facility] NRBC 0.0 % 08/19/2023 5:41 PM PRODUCTION TEAM LEADER [facility] ABS. NEUTROPHILS 5.94 1.60 - 8.30 x10'3/uL 08/19/2023 5:41 PM PRODUCTION TEAM LEADER [facility] ABS. LYMPHOCYTES 1.41 0.80 - 4.70 x10'3/uL 08/19/2023 5:41 PM PRODUCTION TEAM LEADER [facility] ABS. MONOCYTES 0.58 0.00 - 1.50 x10'3/uL 08/19/2023 5:41 PM PRODUCTION TEAM LEADER [facility] ABS. EOSINOPHILS 0.38 0.00 - 0.40 x10'3/uL 08/19/2023 5:41 PM PRODUCTION TEAM LEADER [facility] ABS. BASOPHILS 0.07 0.00 - 0.20 x10'3/uL 08/19/2023 5:41 PM PRODUCTION TEAM LEADER [facility] ABS. IMMATURE GRANULOCYTES 0.09(H) 0.00 - 0.03 x10'3/uL 08/19/2023 5:41 PM PRODUCTION TEAM LEADER [facility] ABS. NUCLEATED RBC'S 0.00 0.00 x10'3/uL 08/19/2023 5:41 PM PRODUCTION TEAM LEADER [facility] 08/19/2023 5:32 PM PRODUCTION TEAM LEADER us Aaron Austin MD LABORATORY Final Result Performing Organization Address City/State/[facility] Co de Phone Number [facility] [place] [address], documented in this encounter Visit Diagnoses Diagnosis Postural hypotension- Primary Orthostatic hypotension Chronic renal failure Chronic kidney disease, unspecified Left shoulder pain Pain in joint, shoulder region Constipation Unspecified constipation documented in this encounter Administered Medications Inactive Administered Medications - up to 3 most recent administrations Medication Order MAR Action Action Date Dose Rate Site midodrine (PROAMATINE) tablet 10 mg 10 mg, Oral, Once, 1 dose, On Thu08/19/23 at 1845 Given 08/19/2023 6:48 PM PRODUCTION TEAM LEADER 10 mg traMADol (ULTRAM) tablet 50 mg 50 mg, Oral, Once, 1 dose, On Thu08/19/23 at 1845 Given 08/19/2023 6:48 PM PRODUCTION TEAM LEADER 50 mg documented in this encounter Active and Recently Administered Medications Times are shown in PRODUCTION TEAM LEADER. Scheduled Medication Order 08/17/2023 08/18/2023 08/19/2023 midodrine (PROAMATINE) tablet 10 mg (COMPLETED) 10 mg, Oral, Once, 1 dose, On Thu08/19/23 at 1845 1848 (Given - Provid er: Prema Dean RN) traMADol (ULTRAM) tablet 50 mg (COMPLETED) 50 mg, Oral, Once, 1 dose, On Thu08/19/23 at 1845 1848 (Given - Provid er: Prema Dean RN) documented in this encounter Care Teams Rubber Compounder Formulator Relationship Specialty Start Date End Date Mery Maxwell MD [address] [place] [phone] PCP - General FAMILY PRACTICE 08/19/23 documented as of this encounter
--- OUTSIDE RECORDS SUMMARY | 2024-06-22 18:01 | XMS_ITS | Encounter Summary ---
Author Organization [facility] Address [address] [place] [address]. [place] [address] [place] [address] Care Team Providers Care Stitch Wheeler Name Role Phone Unavailable Primary Care Provider Unavailabl e Encounter Details Date Type Department Care Team (Late st Contact Info) Description 11/13/[address] [facility] [address] [facility] [place] [address] Toño Forrest MD [address] [place] [id number] Social History Tobacco Use Types Packs/Day Years [...] st Contact Info) Description 07/20/2024 10:30 AM MANAGER CATH LAB Office Visit [facility]-[address] [place] [phone] Martha Ramirez, [facility]-[address] [address] documented as of this encounter Visit Diagnoses Not on filedocumented in this encounter
--- OUTSIDE RECORDS SUMMARY | 2024-06-22 18:01 | XMS_ITS | Encounter Summary ---
Author Organization [facility] Address [address] [place] [address]. [place] [address] [place] [address] Care Team Providers Care Kitchen Assistant Name Role Phone Mery Maxwell MD Primary Care Provider [phone]- [phone] Reason for Referral * Imaging (Emergency) - New Request Specialty Diagnoses / Procedures Referred By Flako cardoso Referred To Contact RADIOLOGY Procedures CT HEAD WO CON Wale Alberto MD [address] [place] [address] Phone: tel: fax: Referral ID Status Reason Start Date Expiration Date V isits Requested Visits Authorized [id number] New Request 09/01/2023 08/31/2024 1 1 Reason for Visit * Reason Comments Medical Problem Encounter Details Date Type Department Care Team (Late st Contact Info) Description 09/01/2023 3:35 PM CDT - 09/01/2023 9:05 PM CDT Emergency [facility] [address] [place] [address] Wale Alberto MD [address] [place] [address] Medical Problem Discharge Disposition: Home or Self Care (Routine Discharge) Social History Tobacco Use Types Packs/Day Years Used Date Smoking Tobacco: Former Cigarettes Smokeless Tobacco: Never Alcohol Use Standard Drinks/Week Comments Not Currently 0 (1 standard drink = 0.6 oz pur e alcohol) [facility] Utilities Answer Date Recorded In the past 12 months has th e [employer], gas, oil, or water company threatened to [...] Sign Reading Time Taken Comments Blood Pressure 148/74 09/01/2023 7:30 PM CDT Pulse 64 09/01/2023 8:55 PM CDT Temperature 36.8 ??C (98.2 ??F) 09/01/2023 3:35 PM CD T Respiratory Rate 25 09/01/2023 8:55 PM CDT Oxygen Saturation 95% 09/01/2023 8:55 PM CDT Inhaled Oxygen Concentration - - Weight 116.6 kg (257 lb) 09/01/2023 3:35 PM CDT Height 185.4 cm (6' 1 ) 09/01/2023 3:35 PM CDT Body Mass Index 33.91 09/01/2023 3:35 PM CDT documented in this encounter Functional Status * Question Answer Date of Assessment Author Status Do you have serious difficulty walking or climbing stairs? No 09/01/2023 5:02 AM CDT Paola Obrien RN Active * Question Answer Date of Assessment Author Status Do you have difficulty dressing or bathing? No 09/01/2023 5:02 AM KELSIT Pinky Obrien RN Active Because of a physical, mental, or emotional condition, do you have difficulty doing errands alone such as visiting a doctor's office or shopping? No 09/01/2023 5:02 AM Paola Whittaker RN Active * Are you deaf [...] difficulty concentrating, remembering, or making decisions? No 09/01/2023 5:02 AM Pinky Whittaker RN Active * Because of a [...] 3 (three) times daily. SLIDING SCALE 02/03/2024 lanthanum carbonate (FOSRENOL) 1000 MG Chew Tab [...] as of this encounter ED Notes * Wale Alberto MD - 09/01/2023 6:45 PM CDTAssociated Order(s): EKG Reading Chief Complaint Chief Complaint Patient presents with Medical Problem History of Present Illness 52-year-old male with complaint of dizziness and shortness of breath during dialysis. Patient had mild headache earlier today. Patient described the dizziness as spinning. Patient denies chest pain or coughing. Patient denies vomiting. Episode occurred 1 hour prior to coming to the emergency room. S ymptoms are constant. Medical History ALLERGIES: Review of patient's allergies [...] HISTORY: Past Medical History: Diagnosis Date A-fib ([facility]) Constipation Diabetes mellitus ([facility]) ESRD (end stage renal disease) ([facility]) GERD (gastroesophageal reflux disease) Gout, unspecified High cholesterol Neuropathy 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[facility]) PAST SURGICAL HISTORY: Past Surgical History: Procedure [...] Positive for shortness of breath. Negative for wheezing. Cardiovascular: Negative for chest pain and leg swelling. Gastrointestinal: Negative for abdominal pain. Skin: Negative for color change. Neurological: Positive for dizziness. Negative for speech difficulty. Psychiatric/Behavioral: Negative for agitation. All other systems reviewed and are negative. Physical Exam Filed Vitals: 09/01/23203909/01/23204409/01/23204924 2055 BP: Pulse: 62 62 62 64 Resp: (!) 37 (!) 35 26 25 Temp: TempSrc: SpO2: 95% 94% 95% 95% Weight: Height: Physical Exam Constitutional: General: He is not in acute distress. Appearance: Normal appearance. He is well-developed. He is not ill-appearing or toxic-appearing. HENT: Head: Atraumatic. Right Ear: Tympanic membrane normal. Left Ear: Tympanic membrane normal. Eyes: Extraocular Movements: Extraocular movements intact. Pupils: Pupils are equal, round, and reactive to light. Neck: Comments: Normal inspection Cardiovascular: Rate and Rhythm: Normal rate and regular rhythm. Heart sounds: No murmur heard. Pulmonary: Effort: No respiratory distress. Breath sounds: No stridor. No wheezing. Comments: Decreased breath sound at bases Abdominal: Palpations: There is no mass. Tenderness: There is no abdominal tenderness. There is no rebound. Musculoskeletal: General: Normal range of motion. Right lower leg: No edema. Left lower leg: No edema. Skin: General: Skin is dry. Neurological: General: No focal deficit present. Mental Status: He is alert. Cranial Nerves: No cranial nerve deficit. Motor: No weakness. Coordination: Coordination normal. Comments: GCS 15, nose finger test normal bilaterally Psychiatric: Mood and Affect: Mood normal. 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1970 Requested By: WALE ALBERTO Order Number: [id number] Reading MD: Gonzalo Pardo Measurements Intervals [place] Rate: 59 P: 66 MA: 189 QRS: -29 QRSD: 104 T: 48 QT: 489 QTc: 487 Interpretive Statements SINUS BRADYCARDIA BORDERLINE LEFT AXIS DEVIATION NONSPECIFIC T-WAVE ABNORMALITY PROLONGED QT INTERVAL LABORATORY STUDIES: Results for orders placed or performed during the hospital encounter of 03/19/24 CBC W/DIFF AUTOMATED Result Value Ref Range WBC 8.39 4.00 - 10.80 x10'3/uL RBC 3.76 (L) 4.50 - 6.10 x10'6/uL HGB 12.3 (L) 13.0 - 18.0 G/DL HCT 37.7 37.0 - 52.0 % MCV 100.3 (H) 78.0 - 100.0 FL MCH 32.7 (H) 27.0 - 31.0 PG MCHC 32.6 (L) 33.0 - 36.0 G/DL RDW 14.3 11.5 - 14.5 % PLT 285 150 - 350 x10'3/uL MPV 9.4 7.4 - 10.4 FL CBC COMMENT NORMAL REFERENCE RANGE NOT ESTABLISHED FOR THE PROPORTIONAL LEUKOCYTE DIFFERENTIAL. NEUTROPHILS 70.3 % LYMPHOCYTES 17.9 % MONOCYTES 5.4 % EOSINOPHILS 4.6 % BASOPHILS 1.2 % IMMATURE GRANS 0.6 % NRBC 0.0 % ABS. NEUTROPHILS 5.90 1.60 - 8.30 x10'3/uL ABS. LYMPHOCYTES 1.50 0.80 - 4.70 x10'3/uL ABS. MONOCYTES 0.45 0.00 - 1.50 x10'3/uL ABS. EOSINOPHILS 0.39 0.00 - 0.40 x10'3/uL ABS. BASOPHILS 0.10 0.00 - 0.20 x10'3/uL ABS. IMMATURE GRANULOCYTES 0.05 (H) 0.00 - 0.03 x10'3/uL ABS. NUCLEATED RBC'S 0.00 0.00 x10'3/uL COMPREHENSIVE METABOLIC PANEL Result Value Ref Range SODIUM S/P/B 136 136 - 145 MMOL/L POTASSIUM S/P/B 2.7 (LL) 3.5 - 5.1 MMOL/L CHLORIDE S/P/B 95 (L) 98 - 107 MMOL/L CO2 31.0 21.0 - 32.0 MMOL/L GLUCOSE 155 (H) 70 - 99 MG/DL BUN 27 (H) 6 - 24 MG/DL CREATININE S/P/B 3.09 (H) 0.70 - 1.30 MG/DL CALCIUM S/P/B 9.3 8.4 - 10.5 MG/DL BILIRUBIN TOTAL S/P/B 0.6 0.2 - 1.0 MG/DL ALKALINE PHOSPHATASE S/P/B 55 45 - 115 U/L AST 12 (L) 15 - 37 U/L ALT 12 (L) 16 - 63 U/L TOTAL PROTEIN S/P/B 8.8 (H) 6.4 - 8.2 G/DL ALBUMIN S/P/B 3.8 3.4 - 5.0 G/DL ANION GAP 10.0 5.0 - 15.0 MMOL/L OSMOLALITY (CALC) 290 MOSM/KG GFR ESTIMATE 24 (L) >89 ML/MIN/1.73 M2 GFR NOTES GFR REFERENCES: TROPONIN, QUANT Result Value Ref Range TROPONIN I HIGH SENSITIVITY 13 0 - 76 ng/L PROTIME/INR, VENOUS Result Value Ref Range PROTIME 20.8 (H) 9.4 - 12.5 SEC INR 1.8 (H) 0.8 - 1.0 PRO-BRAIN NATRIURETIC PEPTIDE Result Value Ref Range PRO-B TYPE NATRIURETIC PEPTIDE 10,664 (H) <125 PG/ML MAGNESIUM Result Value Ref Range MAGNESIUM 1.7 (L) 1.8 - 2.4 MG/DL IMAGING STUDIES CT HEAD WO CON Final Result by User, [id number] (08/31 1657) DATE: 09/01/2023 4:56 PM EXAMINATION: CT of the head CLINICAL HISTORY: Dizziness. Dialysis patient. COMPARISON: None TECHNIQUE: CT examination of the head without contrast was performed. Axial and multiplanar images obtained. A dose lowering technique was used for this procedure, which may include, but is not limited to, dose reduction technique, automated exposure control, the use of iterative reconstruction, and ALARA (As Low As Reasonably Achievable) / Image Gently techniques. FINDINGS: No acute intracranial hemorrhage, extra-axial collections, intracranial mass effect, or midline shift. Suggestion of subtle foci of hypodensity in the hemispheric white matter, possibly due to small vessel disease. Intracranial and extracranial vascular calcifications. No definite CT evidence of acute territorial infarction, though MRI would be more sensitive. Ventricles and extra-axial/subarachnoid spaces are unremarkable. Calvarium unremarkable. Mastoid air cells clear. Right maxillary retention cyst. Visualized orbits unremarkable. IMPRESSION: 1. No definite CT evidence of acute intracranial abnormality, as above. 2. Possible small vessel disease. Ordered By: WALE ALBERTO Interpreted By: Davis Littlejohn MD, 09/01/2023 4:53 PM XR CHEST PORTABLE Final Result by User, [email or web address] (08/31 8937) Examination: XR CHEST PORTABLE Exam time: 09/01/2023 4:54 PM Clinical history: Short of breath Comparison: 08/27/2023 Technique: AP chest Findings: Borderline heart size for this technique. Pulmonary vasculature unremarkable. No focal pulmonary parenchymal opacity. No pleural effusion. No hyperinflation. IMPRESSION: 1) No radiographic evidence of active disease the chest. Ordered By: WALE ALBERTO Interpreted By: Liborio Villeda MD, 09/01/2023 4:56 PM EKG Reading Date/Time: 09/01/2023 6:49 PM Performed by: Wale Alberto MD Authorized by: Wale Alberto MD Interpreted by ED physician: no specific st-t changed. Rhythm: sinus bradycardia Rate: bradycardic Clinical impression: abnormal ECG Comments: Increased QT interval compared to previous EKGs ED Course / Medical Decision Making Medical Decision Making Orthostatics negative. 6 PM [facility] called. Patient got potassium 80 mEq p.o., magnesium 1 g IV and Antivert 25 mg p.o. reviewed previous EKGs. Transferring to higher-level care due to dialysis. 6PM [facility] called. 7:[address] Hair accepts patient after case discussion. Amount and/or Complexity of Data Reviewed External Data Reviewed: ECG. Labs: ordered. Radiology: ordered. ECG/medicine tests: ordered and independent interpretation performed. Risk Decision regarding hospitalization. Clinical Impression QT prolongation (Primary) Dizziness Hypokalemia Disposition: Transfer to Another Facility Wale Alberto MD 09/02/23 0242 * Kaur Tyler RN - 09/01/2023 3:32 PM CDT To ED per ALS from dialysis. Patient was to have 2.8 liters removed, had 2.5 taken off and became diaphoretic, SOB and Dizzy. EMS called. Upon arrival patient is awake and alert, denies painnad dizziness intitailly but later adds I am a little dizzy . 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 [facility]-[address] [place] [id number] Martha Ramirez, [facility]- [address] [place] [address] documented as of this encounter Procedures Procedure Name Priority Date/Time Associated Diagnosis Comments ELECTROCARDIOGRAM REPORT Routine 6:[address] HEAD WO CON STAT 09/01/2023 4:56 PM CDT XR CHEST PORTABLE STAT 09/01/2023 4:5 4 PM CDT ECG 12-LEAD STAT 09/01/2023 4:28 PM CDT PRO-BRAIN NATRIURETIC PEPTIDE STAT 09/01/2023 4:19 PM CDT PROTHROMBIN TIME, VENOUS STAT 024 4:19 PM CDT COMPREHENSIVE METABOLIC PANEL STAT 09/01/2023 4:19 PM CDT CBC W/DIFF AUTOMATED STAT 09/01/2023 4:19 PM CDT TROPONIN, QUANT STAT 09/01/2023 4:19 PM CDT MAGNESIUM STAT 09/01/2023 4:19 PM CDT documented in this encounter Results * EKG Reading (09/01/2023 6:49 PM CDT) Narrative Wale Alberto MD - 09/01/2023 6:49 PM CDT Wale Alberto MD ? 09/02/2023 ??2:42 AM EKG Reading Date/Time: 09/01/2023 6:49 PM Performed by: Wale Alberto MD Authorized by: Wale Alberto MD ??Interpreted by ED physician: no specific st-t changed. Rhythm: sinus bradycardia Rate: bradycardic Clinical impression: abnormal ECG Comments: Increased QT interval compared to previous EKGs us Wale Alberto MD [facility] S Final Result * CT HEAD WO CON (09/01/2023 4:56 PM CDT) Anatomical Region Laterality Modality Head Computed Tomogra phy 09/01/2023 4:53 PM CDT Impressions 09/01/2023 4:57 PM CDT IMPRESSION: 1. No definite CT evidence of acute intracranial abnormality, as above. 2. Possible small vessel disease. Ordered By: WALE ALBERTO Interpreted By: Davis Littlejohn MD, 09/01/2023 4:53 PM Narrative 09/01/2023 4:57 PM CDT DATE: 09/01/2023 4:56 PM EXAMINATION: CT of the head CLINICAL HISTORY: Dizziness. Dialysis patient. COMPARISON: None TECHNIQUE: CT examination of the head without contrast ??was performed. Axial and multiplanar images obtained. A dose lowering technique was used for this procedure, which may include, but is not limited to, dose reduction technique, automated exposure control, the use of iterative reconstruction, and ALARA (As Low As Reasonably Achievable) / Image Gently techniques. FINDINGS: No acute intracranial hemorrhage, extra-axial collections, intracranial mass effect, or midline shift. Suggestion of subtle foci of hypodensity in the hemispheric white matter, possibly due to small vessel disease. Intracranial and extracranial vascular calcifications. No definite CT evidence of acute territorial infarction, though MRI would be more sensitive. Ventricles and extra-axial/subarachnoid spaces are unremarkable. Calvarium unremarkable. Mastoid air cells clear. Right maxillary retention cyst. Visualized orbits unremarkable. Procedure Note Davis Littlejohn MD - 09/01/2023 DATE: 09/01/2023 4:56 PM EXAMINATION: CT of the head CLINICAL HISTORY: Dizziness. Dialysis patient. COMPARISON: None TECHNIQUE: CT examination of the head without contrast was performed.Axial and multiplanar images obtained. A dose lowering technique was used for this procedure, which may include,but is not limited to, dose reduction technique, automated exposurecontrol, the use of iterative reconstruction, and ALARA (As Low AsReasonably Achievable) / Image Gently techniques. FINDINGS: No acute intracranial hemorrhage, extra-axial collections, intracranialmass effect, or midline shift. Suggestion of subtle foci of hypodensity inthe hemispheric white matter, possibly due to small vessel disease.Intracranial and extracranial vascular calcifications. No definite CTevidence of acute territorial infarction, though MRI would be moresensitive. Ventricles and extra-axial/subarachnoid spaces areunremarkable. Calvarium unremarkable. Mastoid air cells clear. Rightmaxillary retention cyst. Visualized orbits unremarkable. IMPRESSION: 1. No definite CT evidence of acute intracranial abnormality, as above. 2. Possible small vessel disease. Ordered By: WALE ALBERTO Interpreted By: Davis Littlejohn MD, 09/01/2023 4:53 PM Wale Alberto MD CT Final Result * XR CHEST PORTABLE (09/01/2023 4:54 PM CDT) Anatomical Region Laterality Modality Chest Radiographic Susannah ging 09/01/2023 4:56 PM CDT Impressions 09/01/2023 4:57 PM CDT IMPRESSION: 1) No radiographic evidence of active disease the chest. Ordered By: WALE ALBERTO Interpreted By: Liborio Villeda MD, 09/01/2023 4:56 PM Narrative 09/01/2023 4:57 PM CDT Examination: XR CHEST PORTABLE Exam time: 09/01/2023 4:54 PM Clinical history: Short of breath Comparison: 08/27/2023 Technique: AP chest Findings: Borderline heart size for this technique. Pulmonary vasculature unremarkable. No focal pulmonary parenchymal opacity. No pleural effusion. No hyperinflation. Procedure Note Liborio Villeda MD - 09/01/2023 Examination: XR CHEST PORTABLE Exam time: 09/01/2023 4:54 PM Clinical history: Short of breath Comparison: 08/27/2023 Technique: AP chest Findings: Borderline heart size for this technique. Pulmonary vasculatureunremarkable. No focal pulmonary parenchymal opacity. No pleural effusion.No hyperinflation. IMPRESSION: 1) No radiographic evidence of active disease the chest. Ordered By: WALE ALBERTO Interpreted By: Liborio Villeda MD, 09/01/2023 4:56 PM us Wale Alberto MD GENERAL IMAGING Final Result * ECG 12 lead (09/01/2023 4:28 PM CDT) 09/01/2023 4:28 PM CDT Narrative [facility] - 09/01/2023 4:43 PM CDT ? [facility] ?[address] [place], [place] ??[address] ? Test Date: ?2023-09-01 Pat Name: ? VINAY WILBURN ?Department: ?? 3 ? Room: ? EXAM 606 Gender: ? Male ? 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 Requested By: WALE ALBERTO Order Number: [id number] ? Reading MD: ?? Gonzalo Pardo ? Measurements Intervals ?[place] ? Rate: ? 59 ? P: ?66 MA: ? 189 ?QRS: ?-29 QRSD: ? 104 ?T: ?48 QT: ? 489 ? QTc: ?487 ? Interpretive Statements SINUS BRADYCARDIA BORDERLINE LEFT AXIS DEVIATION NONSPECIFIC T-WAVE ABNORMALITY PROLONGED QT INTERVAL Procedure Note Gonzalo Pardo MD - 09/01/[address] 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1970 Requested By: WALE ALBERTO Order Number: [id number] Reading MD: Gonzalo Pardo Measurements Intervals [place] Rate: 59 P: 66 MA: 189 QRS: -29 QRSD: 104 T: 48 QT: 489 QTc: 487 Interpretive Statements SINUS BRADYCARDIA BORDERLINE LEFT AXIS DEVIATION NONSPECIFIC T-WAVE ABNORMALITY PROLONGED QT INTERVAL Wale Alberto MD ECG ORDERABLES Final Result [facility] * (ABNORMAL) MAGNESIUM (09/01/2023 4:19 PM CDT) MAGNESIUM 1.7(L) 1.8 - 2.4 MG/DL 09/01/2023 5:20 PM CDT [facility] 09/01/2023 4:19 PM CDT Wale Alberto MD LABORATORY Final Result Performing Organization Address [facility] Co de Phone Number [facility] [address] [place] [address], * (ABNORMAL) PRO-BRAIN NATRIURETIC PEPTIDE (09/01/2023 4:19 PM CDT) PRO-B TYPE NATRIURETIC PEPTIDE 10,664(H) <125 PG/ML 09/01/2023 4:51 PM CDT [facility] Comment: CUT POINTS ESTABLISHED BY [employer] ON NT PROBNP (ICON) STUDY (2006). AGE INDEPENDENT: <300 PG/ML HAS A 99% NEGATIVE PREDICTIVE VALUE FOR EXCLUDING ACUTE CHF <50 YEARS: >450 PG/ML IS CONSISTENT WITH ACUTE CHF 50-75 YEARS: >900 PG/ML IS CONSISTENT WITH ACUTE CHF >75 YEARS: >1800 PG/ML IS CONSISTENT WITH ACUTE CHF IN PATIENTS WITH RENAL INSUFFICIENCY (GFR <60), >1200 PG/ML YIELDS A DIAGNOSTIC SENSITIVITY AND SPECIFICITY OF 89% AND 72% FOR ACUTE CHF. 09/01/2023 4:19 PM CDT us Wale Alberto MD LABORATORY Final Result Performing Organization Address [facility]/ZIP Co de Phone Number [facility] [address] [place] [address], [place] [phone] * (ABNORMAL) PROTIME/INR, VENOUS (09/01/2023 4:19 PM CDT) PROTIME 20.8(H) 9.4 - 12.5 SEC 09/01/2023 4:31 PM CDT [facility] INR 1.8(H) 0.8 - 1.0 09/01/2023 4:31 PM CDT [facility] 09/01/2023 4:19 PM CDT us Wale Alberto MD LABORATORY Final Result Performing Organization Address [facility] Co de Phone Number [facility] [address] [place] [address], [place] [phone] * TROPONIN, QUANT (09/01/2023 4:19 PM CDT) TROPONIN I HIGH SENSITIVITY 13 0 - 76 ng/L 09/01/2023 4:51 PM CDT [facility] 09/01/2023 4:19 PM CDT us Wale Alberto MD LABORATORY Final Result Performing Organization Address [facility] Co de Phone Number [facility] [address] [place] [address], [place] [phone] * (ABNORMAL) COMPREHENSIVE METABOLIC PANEL (09/01/2023 4:19 PM CDT) SODIUM S/P/B 136 136 - 145 MMOL/L 09/01/2023 4:51 PM CDT [facility] POTASSIUM S/P/B 2.7(LL) 3.5 - 5.1 MMOL/L 09/01/2023 4:52 PM CDT [facility] Comment: Critical Result(s) Called to and read back by: SVETA REES ER ?at: 16:51:26 ?? 09/01/2023 by NANI. CHLORIDE S/P/B 95(L) 98 - 107 MMOL/L 09/01/2023 4:51 PM CDT [facility] CO2 31.0 21.0 - 32.0 MMOL/L 09/01/2023 4:51 PM CDT [facility] GLUCOSE 155(H) 70 - 99 MG/DL 09/01/2023 4:51 PM CDT [facility] Comment: FASTING GLUCOSE 100 TO 125 MG/DL IS CONSISTENT WITH IMPAIRED FASTING GLUCOSE. FASTING GLUCOSE >125 MG/DL IS CONSISTENT WITH DIABETES. RANDOM GLUCOSE >200 MG/DL WITH HYPERGLYCEMIC SYMPTOMS IS CONSISTENT WITH DIABETES. PER ADA GUIDELINES BUN 27(H) 6 - 24 MG/DL 09/01/2023 4:51 PM CDT [facility] CREATININE S/P/B 3.09(H) 0.70 - 1.30 MG/DL 09/01/2023 4:51 PM CDT [facility] CALCIUM S/P/B 9.3 8.4 - 10.5 MG/DL 09/01/2023 4:51 PM CDT [facility] BILIRUBIN TOTAL S/P/B 0.6 0.2 - 1.0 MG/DL 09/01/2023 4:51 PM CDT [facility] Comment: THIS ASSAY IS NOT RECOMMENDED FOR PATIENTS UNDERGOING TREATMENT WITH ELTROMBOPAG DUE TO THE POTENTIAL FOR FALSELY ELEVATED RESULTS. ALKALINE PHOSPHATASE S/P/B 55 45 - 115 U/L 09/01/2023 4:51 PM CDT [facility] AST 12(L) 15 - 37 U/L 09/01/2023 4:51 PM CDT [facility] ALT 12(L) 16 - 63 U/L 09/01/2023 4:51 PM CDT [facility] TOTAL PROTEIN S/P/B 8.8(H) 6.4 - 8.2 G/DL 09/01/2023 4:51 PM CDT [facility] ALBUMIN S/P/B 3.8 3.4 - 5.0 G/DL 09/01/2023 4:51 PM CDT [facility] ANION GAP 10.0 5.0 - 15.0 MMOL/L 09/01/2023 4:51 PM CDT [facility] OSMOLALITY (CALC) 290 MOSM/KG 024 4:51 PM CDT [facility] Comment:REFERENCE RANGE NOT ESTABLISHED GFR ESTIMATE 24(L) >89 ML/MIN/1. 73 M2 09/01/2023 4:51 PM CDT [facility] GFR NOTES GFR REFERENCE S: 09/01/2023 4:51 PM CDT [facility] Comment: THE ESTIMATED GFR IS [...] ml/min/1.73 m2 G5,KIDNEY FAILURE: <15 ml/min/1.73 m2 09/01/2023 4:19 PM CDT Wale Alberto MD LABORATORY Final Result [facility] [address] [place] [address], * (ABNORMAL) CBC W/DIFF AUTOMATED (09/01/2023 4:19 PM CDT) WBC 8.39 4.00 - 10.80 x10'3/uL 09/01/2023 4:29 PM CDT [facility] RBC 3.76(L) 4.50 - 6.10 x10'6/uL 09/01/2023 4:29 PM CDT [facility] HGB 12.3(L) 13.0 - 18.0 G/DL 09/01/2023 4:29 PM CDT [facility] HCT 37.7 37.0 - 52.0 % 09/01/2023 4:29 PM CDT [facility] MCV 100.3(H) 78.0 - 100.0 FL 09/01/2023 4:29 PM CDT [facility] MCH 32.7(H) 27.0 - 31.0 PG 09/01/2023 4:29 PM CDT [facility] MCHC 32.6(L) 33.0 - 36.0 G/DL 09/01/2023 4:29 PM CDT [facility] RDW 14.3 11.5 - 14.5 % 09/01/2023 4:29 PM CDT [facility] PLT 285 150 - 350 x10'3/uL 09/01/2023 4:29 PM CDT [facility] MPV 9.4 7.4 - 10.4 FL 09/01/2023 4:29 PM CDT [facility] CBC COMMENT NORMAL REFERENCE RANGE NOT ESTABLISHED FOR THE PROPORTIONAL LEUKOCYTE DIFFERENTIAL. 09/01/2023 4:29 PM CDT [facility] LAB NEUTROPHILS % 70.3 % 09/01/2023 4:29 PM CDT [facility] LYMPHOCYTES % 17.9 % 09/01/2023 4:29 PM CDT [facility] MONOCYTES % 5.4 % 09/01/2023 4:29 PM CDT [facility] EOSINOPHILS % 4.6 % 09/01/2023 4:29 PM CDT [facility] BASOPHILS % 1.2 % 09/01/2023 4:29 PM CDT [facility] IMMATURE GRANS % 0.6 % 09/01/19 4:29 PM CDT [facility] NRBC 0.0 % 09/01/2023 4:29 PM CDT [facility] ABS. NEUTROPHILS 5.90 1.60 - 8.30 x10'3/uL 09/01/2023 4:29 PM CDT [facility] ABS. LYMPHOCYTES 1.50 0.80 - 4.70 x10'3/uL 09/01/2023 4:29 PM CDT [facility] ABS. MONOCYTES 0.45 0.00 - 1.50 x10'3/uL 09/01/2023 4:29 PM CDT [facility] ABS. EOSINOPHILS 0.39 0.00 - 0.40 x10'3/uL 09/01/2023 4:29 PM CDT [facility] ABS. BASOPHILS 0.10 0.00 - 0.20 x10'3/uL 09/01/2023 4:29 PM CDT [facility] ABS. IMMATURE GRANULOCYTES 0.05(H) 0.00 - 0.03 x10'3/uL 09/01/2023 4:29 PM CDT [facility] ABS. NUCLEATED RBC'S 0.00 0.00 x10'3/uL 09/01/2023 4:29 PM CDT [facility] 09/01/2023 4:19 PM CDT Wale Alberto MD LABORATORY Final Result Performing Organization Address City/State/[facility] Co de Phone Number [facility] [address] [place] [address], documented in this encounter Visit Diagnoses Diagnosis QT prolongation- Primary Nonspecific abnormal electrocardiogram (ECG) (EKG) Dizziness Dizziness and giddiness Hypokalemia Hypopotassemia documented in this encounter Administered Medications Inactive Administered Medications - up to 3 most recent administrations Medication Order MAR Action Action Date Dose Rate Site magnesium sulfate IVPB 1 g 1 g, Intravenous, at 100 mL/hr, Once, 1 dose, On Thu09/01/23 at 1745 New Bag 09/01/2023 5:40 PM CDT 1 g 100 mL/hr meclizine (ANTIVERT) tablet 25 mg 25 mg, Oral, Once, 1 dose, On Thu09/01/23 at 1600 Given 09/01/2023 4:27 PM CDT 25 mg potassium chloride CR (KLOR-CON M) tablet 80 mEq 80 mEq, Oral, Once, 1 dose, On 09/01/23 at 1715, Do not chew, crush, or suck on tablet. May break in half. May dissolve whole tablet in 120 mL of water and drink immediately. Given 09/01/2023 5:26 PM CDT 80 mEq documented in this encounter Active and Recently Administered Medications Times are shown in CDT. Scheduled Medication Order 08/30/2023 08/31/2023 09/01/2023 magnesium sulfate IVPB 1 g (COMPLETED) 1 g, Intravenous, at 100 mL/hr, Once, 1 dose, On 09/01/23 at 1745 1740 (New Bag - Prov ider: Chavo Yu RN)1841 (Infusion Stop Time - Provider: Rose Mcmahon RN) meclizine (ANTIVERT) tablet 25 mg (COMPLETED) 25 mg, Oral, Once, 1 dose, On e 09/01/23 at 1600 1627 (Given - Provid er: Chavo Yu RN) potassium chloride CR (KLOR-CON M) tablet 80 mEq (COMPLETED) 80 mEq, Oral, Once, 1 dose, On 09/01/23 at 1715, Do not chew, crush, or suck on tablet. May break in half. May dissolve whole tablet in 120 mL of water and drink immediately. 1726 (Given - Provid er: Chavo Yu RN) documented in this encounter Care Teams Kitchen Assistant Relationship Specialty Start Date End Date Mery Maxwell MD [address] [place] [phone] PCP - General FAMILY PRACTICE 08/19/23 documented as of this encounter
--- OUTSIDE RECORDS SUMMARY | 2024-06-22 18:01 | XMS_ITS | Encounter Summary ---
Author Organization [facility] Address [address] [place] [address]. [place], [place] [id number] [place] [id number] Care Team Providers Care Avionics Electronics Technician Name Role Phone Mery Maxwell MD Primary Care Provider [phone]- [phone] Reason for Referral * (Routine) - New Request Specialty Diagnoses / Procedures Referred By Flako t Referred To Contact Procedures OT Eval and Treat [place] [address] [place] [address] Phone: tel: Referral ID Status Reason Start Date Expiration Date V isits Requested Visits Authorized [id number] New Request 09/03/2023 09/02/2024 1 1 * (Routine) - New Request Specialty Diagnoses / Procedures Referred By Flako t Referred To Contact Procedures PT Eval and Treat [address] [place] [address] Phone: tel: Referral ID Status Reason Start Date Expiration Date V isits Requested Visits Authorized [id number] New Request 09/03/2023 09/02/2024 1 1 * Imaging (Urgent) - Pending Review Specialty Diagnoses / Procedures Referred By Contkalli t Referred To Contact RADIOLOGY Procedures USE ECHOCARDIOGRAM W CON USE ECHOCARDIOGRAM Denise De La O MD [address] [place] [address] Phone: tel: fax: Referral ID Status Reason Start Date Expiration Date V isits Requested Visits Authorized [id number] Pending Review 09/01/2023 08/31/2024 1 1 * Imaging (Urgent) - New Request Specialty Diagnoses / Procedures Referred By Contac t Referred To Contact RADIOLOGY Procedures US CAROTID DUPLEX ANTHONY Denise De La O MD 1 [place] [address] Phone: tel: fax: Referral ID Status Reason Start Date Expiration Date V isits Requested Visits Authorized [id number] New Request 09/01/2023 08/31/2024 1 1 * (Routine) - New Request Specialty Diagnoses / Procedures Referred By Contac t Referred To Contact Procedures OT eval and treat Ed Hair MD 1 [place] [address] Phone: tel: fax: Referral ID Status Reason Start Date Expiration Date V isits Requested Visits Authorized [id number] New Request 09/01/2023 08/31/2024 1 1 * (Routine) - New Request Specialty Diagnoses / Procedures Referred By Contac t Referred To Contact Procedures PT eval and Ed Clement MD 1 [place] [address] Phone: tel: fax: Referral ID Status Reason Start Date Expiration Date V isits Requested Visits Authorized [id number] New Request 09/01/2023 08/31/2024 1 1 Reason for Visit * Auth/Cert (Routine) Specialty Diagnoses / Procedures Referred By Flako t Referred To Contact Diagnoses Hypokalemia EKG, abnormal HYPOKALEMIA, HYPOMAGNESEMIA Procedures NONE Ed Hair MD 1 [place] [address] Phone: tel: fax: Referral ID Status Reason Start Date Expiration Date Visits Re quested Visits Authorized [id number] 1 1 Encounter Details Date Type Department Care Team (Latest Contact Info) Description 09/01/2023 10:17 PM CDT - 09/04/2023 6:37 PM CDT Hospital Encounter [address] [address] Ed Hair MD [address] [place] [id number] Denise De La O MD 1 [place] [address] Troy Pagan MD [address] [place] [address] Discharge Disposition: Home or Self Care (Routine Discharge) Social History Tobacco Use Types Packs/Day Years Used Date Smoking Tobacco: Former Cigarettes Smokeless Tobacco: Never Alcohol Use Standard Drinks/Week Comments Not Currently 0 (1 standard drink = 0.6 oz pur e alcohol) [facility] Utilities Answer Date Recorded In the past 12 months has [facility] [employer], gas, oil, or water [email or web address] threatened to shut off services in your [...] Sign Reading Time Taken Comments Blood Pressure 148/60 09/04/2023 3:03 PM CDT Pulse 61 09/04/2023 3:03 PM CDT Temperature 36.6 ??C (97.9 ??F) 09/04/2023 3:03 PM CD T Respiratory Rate 16 09/04/2023 4:00 AM CDT Oxygen Saturation 94% 09/04/2023 3:03 PM CDT Inhaled Oxygen Concentration - - Weight 113.6 kg (250 lb 8 oz) 09/01/2023 10:27 P M CDT Height 185.4 cm (6' 1 ) 09/01/2023 10:27 PM CDT Body Mass Index 33.05 09/01/2023 10:27 PM CDT documented in this encounter Functional Status * Question Answer Date of Assessment Author Status Do you have serious difficulty walking or climbing stairs? Yes 09/01/2023 10:00 PM CDT Pinky Obrien RN Active * Question Answer Date of Assessment Author Status Do you have difficulty dressing or bathing? Yes 09/01/2023 10:00 PM CDT Stefania Obrien RN Active Because of a physical, mental, or emotional condition, do you have difficulty doing errands alone such as visiting a doctor's office or shopping? Yes 09/01/2023 10:00 PM KELSIT Pinky Obrien RN Active * Are you deaf or [...] PM KELSIT Paola Obrien RN Active * Because of [...] or making decisions? Yes 09/01/2023 10:00 PM CDT Kelly Obrien RN Active * Because of a physical, mental, or emotional condition, do you have serious difficulty concentrating, remembering, or making decisions? Answer Entry Date Author Status Yes 09/01/2023 10:00 PM CDT Paola Obrien RN Active documented in this encounter Discharge Summaries * Troy Pagan MD - 09/04/2023 11:01 AM CDT Images from the original note were not included. Physician Discharge Summary [facility] Discharge Summary Note Patient ID: Vinay Wilburn [id number] 52-year-old 1970 Primary care physician:MERY MAXWELL MD Admitting date: 09/01/2023 Discharge Date: 09/04/2023 Admitting Physician: Ed Hair MD Discharging physician: TROY PAGAN MD Consults: nephrology Discharge Diagnoses: Dizziness, improving Hypokalemia Hypomagnesemia, improved Hyperphosphatemia ESRD on HD, TTS History of A-fib Chronic hypotension Chronic CHF, systolic versus diastolic Diabetes Diabetic neuropathy Dyslipidemia Diarrhea, improving Discharge Exam: Vitals: 09/04/23 0734 BP: (!) 141/60 Pulse: 63 Resp: Temp: 98.4 ??F (36.9 ??C) SpO2: 92% Discharged Condition: fair Hospital Course: Patient admitted to hospital, patient started on IV fluids, given potassium, magnesium supplements and monitor labs, on day of discharge potassium 3.3, ordered potassium supplements again, phosphorus4.4, creatinine 4.78, echocardiogram done shows EF 71%. Nephrology consulted, received HD yesterdayas per his TTS schedule. Resumed other home medications, PT/OT recommend no skilled therapy. Patient overall condition improving, okay to discharge today and follow-up outpatient with PCP, nephrologyin 1 week. Recommend checking CBC, BMP in 1 week and follow-up report with PCP. Patient discharged with p.o. potassium supplements. Discussed with rehabilitation case coordinator on discharge plan I have personally seen and examined patient at time of discharge. Vitals stable and physical exam benign at time of discharge. Discharge medications as per medication reconciliation. Patient advised to call PCP or go to emergency room if symptoms worsen. Patient completely understands instructions given at time of discharge. Discussed with RN on discharge plan. Thank you for choosing [facility] -PLEASE CALL [phone] EXT [phone] IF ANY QUESTIONS Code Status: Full Code Disposition: Home Patient Instructions: Current Discharge Medication List START taking these medications Details potassium chloride CR (KLOR-CON M) 20 MEQ tablet Take 1 tablet (20 mEq total) by mouth daily for 5 days. Qty: 5 tablet, Refills: 0 CONTINUE these medications which [...] by mouth 2 (two) times a day. !! insulin lispro, 1 Unit Dial, (HUMALOG) 100 UNIT/ML injection (PEN) Inject 8 Units into the skin 3 (three) times daily before meals. midodrine (PROAMATINE) 10 MG tablet Take 1 tablet (10 mg total) by mouth 3 (three) times daily. !! traMADol (ULTRAM) 50 MG tablet Take 1 tablet (50 mg total) by mouth every 6 (six) hours as needed for Pain. fluticasone propionate (FLONASE) 50 MCG/ACT nasal spray 1 spray by Nasal route daily. !! insulin lispro, 1 Unit Dial, (HUMALOG) 100 UNIT/ML injection (PEN) Inject 1-6 Units into the skin 3 (three) times daily. SLIDING SCALE LANTUS SOLOSTAR 100 UNIT/ML injection (PEN) Inject [...] mouth 3 (three) times daily with meals. !! traMADol (ULTRAM) 50 MG tablet Indications: Acute Pain < 7 Day Supply 1-2 every 6 hours as needed for pain Qty: 20 tablet, Refills: 0 Associated Diagnoses: Left shoulder pain !! - Potential duplicate medications found. Please discuss with provider. Activity: activity as tolerated Diet: cardiac diet and renal diet Mery Maxwell MD [address] [facility] [id number] Follow up Bebo Kearns MD [address] [facility] [id number] Follow up in 1 week(s) Total discharge time spent: 32 min, more than 50% of time spent in coordination of care and discussing with patient about discharge plan, instructions, medications and follow-ups. Signed: TROY PAGAN MD 09/04/2023 11:01 AM documented in this encounter Medications at Time [...] mcg total) by mouth every other day. --[facility] 08/03/2023 02/26/2024 carvedilol (COREG) 12.5 MG tablet [...] as of this encounter Progress Notes * Edwin De La O MD - 09/04/2023 12:33 PM CDT Nephrology ESRD Service Daily Progress Note LOS: 3 days Portions of this note have been copied from previous notes and updated to accurately represent the patient's current medical status. Subjective: Patient seen at the bedside today, no acute events overnight. Patient reports diarrhea 2-3 times/day. No reported nausea, vomiting, dizziness, lightheadedness. Medications: Scheduled: allopurinol 100 mg Oral BID amiodarone 200 mg Oral Daily apixaban 5 mg Oral BID atorvastatin 20 mg Oral Nightly at bedtime calcitriol 0.25 mcg Oral Once per day on Thu carvedilol 12.5 mg Oral BID gabapentin 100 mg Oral BID insulin glargine 10 Units Subcutaneous Nightly at bedtime insulin lispro 0-12 Units Subcutaneous 4x Daily AC and at bedtime midodrine 10 mg Oral TID pantoprazole EC 40 mg Oral Daily Senna 1 tablet Oral Daily vitamin D3 2,000 Units Oral Daily Continuous Infusions: OBJECTIVE: Vital Signs: Last Filed Vitals Signs: 24 Hour Range @LASTFILEDBP@ @24HOURRANGEBP@ @LASTFILEDTEMP@ @24HOURRANGETEMP@ @LASTFILEDPULSE@ @24HOURRANGEPULSE@ @LASTFILEDRR@ @24HOURRANGERR@ @LASTFILEDSPO2@ @[id number]@ Intake/Output Summary (Last 24 hours) at 09/04/2023 1233 Last data filed at 09/04/2023 0800 Gross per 24 hour Intake 520 ml Output 400 ml Net 120 ml Physical Exam: Constitutional: in no apparent distress Eyes: EOMI Mouth/Throat: moist oral mucosa Respiratory: clear to auscultation, no wheezes, rales or rhonchi, symmetric air entry Cardiac: regular rate and rhythm Abdomen/GI: Soft, non-distended, non-tender abdomen Extremities: peripheral pulses normal, no pedal edema, no clubbing or cyanosis, no pedal edema noted Neurologic:No focal deficits Integumentary: Warm and dry. no hyperpigmentation, vitiligo, or suspicious lesions Access: LUE AVF Labs: Recent Labs Lab 09/02/23 0249 09/03/23 0930 09/04/23 0418 WBC 7.68 6.91 6.65 HGB 11.6* 10.7* 10.9* HCT 35.4* 32.7* 34.1* MCV 99.7 101.6* 100.9* Assessment & Plan: Vinay Wilburn is a 52-year-old male with ESRD on TTS HD via LUE AVF currently admitted for lightheadedness and hypokalemia post HD session yesterday. - ESRD: on 3 day a week schedule. / / THU. Last dialyzed yesterday. Patient will receive next dialysis tomorrow Please see the nursing staff dialysis note for details of the procedure. Patient will be dialyzed on a F160 high-flux polysulfone hemofilter for 4 hours on a no- anticoagulation protocol. - Hypertension: BP control optimal/suboptimal. Please reevaluate blood pressure after hemodialysis,as achieving the dry weight may resolve elevated blood pressure. - Anemia: Hb is at treatment goal of 10 to 11. Please check Iron indices. - Bone and Mineral Disease: Goal for the iPTH [id number] pg/ml and phosphorus level between 3.5-5.5 mg/dl. Patient last iPTH is unkown. Please check PTH and phos Patient is not using any binder at home. - Volume status: Euvolemic. We will ultrafiltrate pt as tolerated. - Electrolytes: Phos 4.4, not on binder. Plan: -TTS HD CIKD will continue to follow. Cosigned by Bebo Kearns MD at 10/02/2023 11:31 AM CDT Associated attestation - Bebo Kearns MD - 10/02/2023 11:31 AM CDT I saw and personally examined the patient and discussed the case with the resident. I have reviewedthe resident???s note and agree with the content and plan as written. Teaching physician supervised in person. * Katelin Molina RN - 09/04/2023 11:00 AM CDT 09/04/23 1100 Interdisciplinary Group Conference Team Members Present Physician;Case/Care management;Nursing Physician present for group conference Dr. Pagan Barriers to Discharge Barriers No Barrier- Medical Milestone in Process No Barrier- Medical Milestone in Process follow up Discharge after dialysis Patient expects to be discharged to: Home or Self care no new needs * Chriss Chauhan RN - 09/04/2023 3:57 AM CDT Problem: Pain control/comfort Goal: Promote pain control/comfort Outcome: Progressing Problem: Moisture associated skin impairment Goal: Reduce moisture exposure Outcome: Progressing * Edwin De La O MD - 09/03/2023 3:02 PM CDT Nephrology ESRD Service Daily Progress Note LOS: 2 days Portions of this note have been copied from previous notes and updated to accurately represent the patient's current medical status. Subjective: Patient seen at the bedside today, no acute events overnight. Patient reports diarrhea 2-3 times/day. No reported nausea, vomiting, dizziness, lightheadedness. Medications: Scheduled: allopurinol 100 mg Oral BID amiodarone 200 mg Oral Daily apixaban 5 mg Oral BID atorvastatin 20 mg Oral Nightly at bedtime calcitriol 0.25 mcg Oral Once per day on Thu carvedilol 12.5 mg Oral BID ferric gluconate 125 mg Intravenous Once gabapentin 100 mg Oral BID insulin glargine 10 Units Subcutaneous Nightly at bedtime insulin lispro 0-12 Units Subcutaneous 4x Daily AC and at bedtime midodrine 10 mg Oral TID pantoprazole EC 40 mg Oral Daily Senna 1 tablet Oral Daily vitamin D3 2,000 Units Oral Daily Continuous Infusions: OBJECTIVE: Vital Signs: Last Filed Vitals Signs: 24 Hour Range @LASTFILEDBP@ @24HOURRANGEBP@ @LASTFILEDTEMP@ @24HRANGETEMP@ @LASTFILEDPULSE@ @24HOURRANGEPULSE@ @LASTFILEDRR@ @24HOURRANGERR@ @LASTFILEDSPO2@ @[id number]@ Intake/Output Summary (Last 24 hours) at 09/03/2023 1502 Last data filed at 09/03/2023 1300 Gross per 24 hour Intake 760 ml Output 0 ml Net 760 ml Physical Exam: Constitutional: in no apparent distress Eyes: EOMI Mouth/Throat: moist oral mucosa Respiratory: clear to auscultation, no wheezes, rales or rhonchi, symmetric air entry Cardiac: regular rate and rhythm Abdomen/GI: Soft, non-distended, non-tender abdomen Extremities: peripheral pulses normal, no pedal edema, no clubbing or cyanosis, no pedal edema noted Neurologic:No focal deficits Integumentary: Warm and dry. no hyperpigmentation, vitiligo, or suspicious lesions Access: LUE AVF Labs: Recent Labs Lab 09/01/23 1619 09/02/23 0249 09/03/23 0930 WBC 8.39 7.68 6.91 HGB 12.3* 11.6* 10.7* HCT 37.7 35.4* 32.7* MCV 100.3* 99.7 101.6* Assessment & Plan: Vinay Wilburn is a 52-year-old male with ESRD on TTS HD via LUE AVF currently admitted for lightheadedness and hypokalemia post HD session yesterday. - ESRD: on 3 day a week schedule. / / THU. Last dialyzed yesterday. Patient will receive next dialysis tomorrow Please see the nursing staff dialysis note for details of the procedure. Patient will be dialyzed on a F160 high-flux polysulfone hemofilter for 4 hours on a no- anticoagulation protocol. - Hypertension: BP control optimal/suboptimal. Please reevaluate blood pressure after hemodialysis,as achieving the dry weight may resolve elevated blood pressure. - Anemia: Hb is at treatment goal of 10 to 11. Please check Iron indices. - Bone and Mineral Disease: Goal for the iPTH [id number] pg/ml and phosphorus level between 3.5-5.5 mg/dl. Patient last iPTH is unkown. Please check PTH and phos Patient is not using any binder at home. - Volume status: Euvolemic. We will ultrafiltrate pt as tolerated. - Electrolytes: within normal limits Plan: -Tolerated HD session well today -F/u on Phos, not on binder at home. 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 Cosigned by Bebo Kearns MD at 10/02/2023 11:31 AM CDT Associated attestation - Bebo Kearns MD - 10/02/2023 11:31 AM CDT I saw and personally examined the patient and discussed the case with the resident. I have reviewedthe resident???s note and agree with the content and plan as written. Teaching physician supervised in person. * Troy Pagan MD - 09/03/2023 12:36 PM CDT Images from the original note were not included. [facility] Progress note Chief Complaint: Dizziness SUBJECTIVE: Patient seen and examined Labs reviewed Patient seen during HD session Generalized weakness present Breathing okay, denies any chest pain No fever Tolerating p.o. diet Has some diarrhea ROS: All other systems reviewed and negative except above Blood pressure (!) 165/86, pulse 62, temperature 97.3 ??F (36.3 ??C), temperature source Temporal, resp. rate 18, height 1.854 m (6' 1 ), weight 113.6 kg (250 lb 8 oz), SpO2 98 %. Physical Exam Constitutional: Appearance: He is well-developed. HENT: Head: Normocephalic. Eyes: Pupils: Pupils are equal, round, and reactive to light. Cardiovascular: Rate and Rhythm: Normal rate. Heart sounds: Normal heart sounds. Pulmonary: Breath sounds: Normal breath sounds. Abdominal: General: Bowel sounds are normal. Palpations: Abdomen is soft. Tenderness: There is no abdominal tenderness. Musculoskeletal: Cervical back: Normal range of motion. Comments: Moves all extremities Skin: General: Skin is warm and dry. Neurological: Mental Status: He is alert and oriented to person, place, and time. Cranial Nerves: No cranial nerve deficit. Psychiatric: Mood and Affect: Mood normal. LABS:. Recent Labs 09/01/23 1619 09/02/23 0249 09/03/23 0930 WBC 8.39 7.68 6.91 HGB 12.3* 11.6* 10.7* HCT 37.7 35.4* 32.7* MCV 100.3* 99.7 101.6* PLT 285 253 247 RBC 3.76* 3.55* 3.22* Recent Labs Lab 08/27/23 1425 09/01/23 1619 09/02/23 0030 09/02/23 0249 09/03/23 0930 NA 135* 136 138 137 135* K 2.5* 2.7* 2.9* 3.1* 3.3* CL 92* 95* 96* 99 101 CO2 30.4 31.0 32.5* 29.0 24.9 AGAP 12.6 10.0 9.5 9.0 9.1 BUN 31* 27* 35* 36* 49* CR 4.00* 3.09* 4.01* 4.19* 5.45* GLU 193* 155* 247* 225* 216* CA 9.2 9.3 9.3 9.4 9.1 TP 7.9 8.8* -- -- 7.2 ALB 3.5 3.8 -- -- 3.1* TBIL 0.9 0.6 -- -- 0.6 ALKP 54 55 -- -- 43* AST 13* 12* -- -- 12* ALT 11* 12* -- -- 13* Recent Labs Lab 09/01/23 1619 INR 1.8* Intake/Output Summary (Last 24 hours) at 09/03/2023 1236 Last data filed at 09/03/2023 1228 Gross per 24 hour Intake 540 ml Output 0 ml Net 540 ml RADIOLOGY : REVIEWED MEDICATIONS Scheduled medications allopurinol 100 mg Oral BID amiodarone 200 mg Oral Daily apixaban 5 mg Oral BID atorvastatin 20 mg Oral Nightly at bedtime calcitriol 0.25 mcg Oral Once per day on Thu Sat carvedilol 12.5 mg Oral BID gabapentin 100 mg Oral BID insulin glargine 10 Units Subcutaneous Nightly at bedtime insulin lispro 0-12 Units Subcutaneous 4x Daily AC and at bedtime midodrine 10 mg Oral TID pantoprazole EC 40 mg Oral Daily potassium chloride 40 mEq Oral Once Senna 1 tablet Oral Daily vitamin D3 2,000 Units Oral Daily Infusion PRN acetaminophen, albuterol sulfate HFA, glucose, dextrose 10 % bolus, glucagon, HYDROcodone-acetaminophen, ondansetron, polyethylene glycol ASSESSMENT/PLAN: Dizziness Hypokalemia Hypomagnesemia, improved Hyperphosphatemia ESRD on HD, TTS Reviewed labs this morning, potassium 3.3, sodium 135, magnesium 2, phosphorus 5.4, creatinine 5.45 Ordered p.o. 40 mEq potassium supplements, monitor BMP in a.m. Nephrology on board, getting HD today, monitor BMP in a.m. Get PT/OT evaluation Reviewed carotid Doppler bilateral done, no significant stenosis Follow-up on echocardiogram ordered Telemonitoring History of A-fib Chronic hypotension Chronic CHF, systolic versus diastolic No previous echocardiogram available Follow-up on echocardiogram ordered Continue Eliquis for anticoagulation Continue amiodarone, Coreg, midodrine Telemonitoring Diabetes Diabetic neuropathy HbA1c is 7.4, continue current insulin regimen, monitor checks, diabetic diet Continue gabapentin Dyslipidemia Continue statin Diarrhea Stool C. difficile negative Monitor records and replace as needed If needed will add Imodium DVT/GI prophylaxis On Eliquis/PPI Discussed with RN on the plan Get PT/OT evaluation Discussed with rehabilitation case coordinator on discharge plan, possible discharge tomorrow Total time spent: 51 minutes, more than 50% of time spent in coordination of care and discussing with patient/staff about current medical condition and management Code status: Full Code TROY PAGAN MD 12:36 PM 09/03/2023 * Katelin Molina RN - 09/03/2023 11:00 AM CDT 09/03/23 1100 Interdisciplinary Group Conference Team Members Present Physician;Case/Care management;Nursing Physician present for group conference Dr. Pagan Barriers to Discharge Barriers No Barrier- Medical Milestone in Process No Barrier- Medical Milestone in Process follow up PT/OT eval pending, C diff pending, dialysis today Patient expects to be discharged to: Home or Self care no new needs * Katelin Molina RN - 09/03/2023 8:55 AM CDT 09/03/23 0855 Referral Data Source of Information Patient Patient Information Primary Caregiver Family Current living Situation Family members (Sister) Type of Residence Private residence Support System Immediate family Are you employed? Not Employed Recent Hospitalization Recent Hospitalization within 30 days Yes (Recently at [facility] for fistula revision) Baseline ADL's Functional Status Independent Active DME Wheelchair Behavior Oriented;Cooperative Communication Talks;Understands speaking;Understands Malagasy Current Services Being Provided Outpt therapy Dialysis Psychosocial Need Indicator Mental health concerns No Diagnosis/prognosis resulting in poor adjustment or coping with illness No Diagnosis/prognosis with anticipated outcome of major lifestyle changes, including change in [facility] living environment No Complex Family concerns No [...] needs Adequate Resources Available Adequate Resources Yes Met with patient at bedside to introduce self and role. Lives with his sister, independent with useof wheelchair. Dialysis through [facility] in [place] on . May require transportation home. PCP: Dr. Arboleda (recently seen) Pharm: Abimael. * Nichol Carty, PT - 09/03/2023 8:04 AM CDT Medical Cancel: P/T order received and chart reviewed. OT evaluated pt on 09/01 and pt able to perform stand pivot transfer to/from bed to/from w/c without AD with [facility]. Uses w/c arm and bed rail for support. OT signed off. Pt does not have acute skilled therapy needs at this time. Plan is for pt to resume home health P/T upon discharge that was initiated by his PCP. P/T will sign off. Than k tatum. * Lauren Courtney RN - 09/02/2023 6:13 PM CDT Problem: Discharge Planning Goal: Knowledge of discharge instructions Outcome: Progressing Problem: Pain control/comfort Goal: Promote pain control/comfort Outcome: Progressing Problem: Skin integrity, Impaired-wound Goal: Absence of new skin breakdown Outcome: Completed Goal: Evidence of wound healing Outcome: Completed Problem: Moisture associated skin impairment Goal: Reduce moisture exposure Outcome: Progressing Goal: Evidence of wound healing Outcome: Progressing Goal: Evidence of pressure injury/ulcer healing Outcome: Progressing Goal: Absence of new skin breakdown Outcome: Progressing * Troy Pagan MD - 09/02/2023 11:16 AM CDT Images from the original note were not included. [facility] Progress note Chief Complaint: Dizziness SUBJECTIVE: Patient seen and examined Labs reviewed Notes reviewed Patient comfortable lying in bed this morning Received HD yesterday Still has generalized weakness and fatigue Tolerating p.o. diet Breathing okay, denies any chest pain No fever ROS: All other systems reviewed and negative except above Blood pressure 138/71, pulse (!) 57, temperature 98.4 ??F (36.9 ??C), temperature source Oral, resp. rate 19, height 1.854 m (6' 1 ), weight 113.6 kg (250 lb 8 oz), SpO2 96 %. Physical Exam Constitutional: Appearance: He is well-developed. HENT: Head: Normocephalic. Eyes: Pupils: Pupils are equal, round, and reactive to light. Cardiovascular: Rate and Rhythm: Normal rate. Heart sounds: Normal heart sounds. Pulmonary: Breath sounds: Normal breath sounds. Abdominal: General: Bowel sounds are normal. Palpations: Abdomen is soft. Tenderness: There is no abdominal tenderness. Musculoskeletal: Cervical back: Normal range of motion. Comments: Moves all extremities Skin: General: Skin is warm and dry. Neurological: Mental Status: He is alert and oriented to person, place, and time. Cranial Nerves: No cranial nerve deficit. Psychiatric: Mood and Affect: Mood normal. LABS:. Recent Labs 09/01/23 1619 09/02/23 0249 WBC 8.39 7.68 HGB 12.3* 11.6* HCT 37.7 35.4* MCV 100.3* 99.7 PLT 285 253 RBC 3.76* 3.55* Recent Labs Lab 08/27/23 1425 09/01/23 1619 09/02/23 0030 09/02/23 0249 NA 135* 136 138 137 K 2.5* 2.7* 2.9* 3.1* CL 92* 95* 96* 99 CO2 30.4 31.0 32.5* 29.0 AGAP 12.6 10.0 9.5 9.0 BUN 31* 27* 35* 36* CR 4.00* 3.09* 4.01* 4.19* GLU 193* 155* 247* 225* CA 9.2 9.3 9.3 9.4 TP 7.9 8.8* -- -- ALB 3.5 3.8 -- -- TBIL 0.9 0.6 -- -- ALKP 54 55 -- -- AST 13* 12* -- -- ALT 11* 12* -- -- Recent Labs Lab 09/01/23 1619 INR 1.8* Intake/Output Summary (Last 24 hours) at 09/02/2023 1116 Last data filed at 09/02/2023 0411 Gross per 24 hour Intake 220 ml Output 0 ml Net 220 ml RADIOLOGY : REVIEWED MEDICATIONS Scheduled medications allopurinol 100 mg Oral BID amiodarone 200 mg Oral Daily apixaban 5 mg Oral BID atorvastatin 20 mg Oral Nightly at bedtime [START ON 09/03/2023] calcitriol 0.25 mcg Oral Once per day on Thu Cheryl Sat carvedilol 12.5 mg Oral BID gabapentin 100 mg Oral BID insulin glargine 10 Units Subcutaneous Nightly at bedtime insulin lispro 0-12 Units Subcutaneous 4x Daily AC and at bedtime midodrine 10 mg Oral TID pantoprazole EC 40 mg Oral Daily Senna 1 tablet Oral Daily vitamin D3 2,000 Units Oral Daily Infusion PRN acetaminophen, albuterol sulfate HFA, glucose, dextrose 10 % bolus, glucagon, HYDROcodone-acetaminophen, ondansetron, polyethylene glycol ASSESSMENT/PLAN: Dizziness Hypokalemia, improving Hypomagnesemia, improved ESRD on HD, TTS Reviewed labs this morning, potassium 3.1, magnesium 2, creatinine 4.19 Ordered potassium supplements, monitor BMP in a.m. Nephrology consulted, possible HD tomorrow as per her schedule Get PT/OT evaluation Follow-up on echocardiogram and bilateral carotids ordered Telemonitoring History of A-fib Chronic hypotension Chronic CHF, systolic versus diastolic No previous echocardiogram available Follow-up on echocardiogram ordered Continue Eliquis for anticoagulation Continue amiodarone, Coreg, midodrine Telemonitoring Diabetes Diabetic neuropathy Check HbA1c, continue current insulin regimen, monitor checks, diabetic diet Continue gabapentin Dyslipidemia Continue statin DVT/GI prophylaxis On Eliquis/PPI Discussed with RN on the plan Total time spent: 52 minutes, more than 50% of time spent in coordination of care, reviewing records and discussing with patient/staff about current medical condition and management Code status: Full Code TROY PAGAN MD 11:16 AM 09/02/2023 * Paige Montano OT - 09/02/2023 10:39 AM CDTSummary: OT Eval OT Initial Evaluation Discharge Recommendation: home with assistance No skilled OT Activity Recommendation for rn camp: Defer activity to nursing: Up with SBA, pivot to w/c, chair, commode Assessment: Pt reports requiring assist for bathing, dressing, and toileting, 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 Pt presents as SBA/[place] for grooming and functional transfers; requires assist for LBD which his sister assists with at baseline; demonstrates good standing activity tolerance, balance, and safety for functional tasks. Pt appears safe to return home with family assist at this time. OT will sign off. Please send new orders if a change in medical status occurs. 09/02/23 1000 Therapy Visit OT Received On 09/02/23 Reason for admission Pt is a 52 year old male who on 08/31 presents with dizziness and shortness of breath post HD session. Admitted for further management of hypokalemia, hypomangnesemia, and prolonged QTcs. PMH: HTN; HLP; chronic hypotenision; ESRD on HD TTS; A-fib; Orders: Eval and treat; Activity: Up with assist. Ordering Provider MD Jairon Verified Two Patient Identifiers Yes Patient consents to therapy Yes Acute Inpatient OT Time Calculation OT Start Time 1039 OT Stop Time 1103 OT Time Calculation (min) 24 min Precautions Other telemetry; fall risk; IV site Subjective Subjective RN ok'd session. Pt reports he feels mostly back to his normal. Prior Function PLOF Comments Pt reports living with his sister and his [id number] in a 1- story house with basement, ramp entrance. Can stay on the main level. Bathroom has tub/shower (Pt normally sponge bathes); standard height toilet seat with grab bar nearby for support. Pt reports his sister assist with dressing and toileting (Pt reports he toilets in a depend and his sister helps clean him up.) Pt reports he does not perform bathing very often and if he did, he would need assist. Pt is able to feed himself and perform grooming tasks. Pt sleeps in a hospital bed. He uses a manual w/c for functional mobility. Reports [place] with pivot transfers, does not use any AD. Pt is able to propel with w/c Independently. Pt has close to 24/7 assist between family members. He reports his PCP ordered home health P/T for him, but has not started it yet. Pain Pain No Objective Objective Pt received for OT session supine in bed. Activity Tolerance Limiting Factors to Endurance Acute deconditioning;Fatigue;Weakness Activity Tolerance Comments Chronic weakness. Pt appears self-limiting. Requires gentle encouragement to participate in evaluation. Vision - Basic Assessment Current Vision Wears glasses for distance only Vision - Complex Assessment Additional Comments Pt reports no acue visual changes. Cognition Overall Cognitive Status WFL Arousal/Alertness Appropriate responses to stimuli Attention Span Appears intact Memory Appears intact Orientation Level Oriented X4 (cues for date) Following Commands Follows one step commands without difficulty Safety Judgment Good awareness of safety precautions Awareness of Errors Good awareness of errors made Deficits Fully aware of deficits Problem Solving Able to problem solve independently Comments Requires encouragement to participate in therapy. RUE Assessment RUE Comment AROM: ~75% of shoulder flexion, remaining UE WFL; MMT: 2+/5 at shoulder, remaining 4/5 LUE Assessment LUE Comment AROM: WFL; MMT: 4/5 Hand Function Hand Dominance Right Gross Grasp Functional Coordination Functional Hand Comment Pt with decreased coordination and correspondent strength at baseline, difficulting fulling extending digits; can grasp hair brush/phone, manipulates phone appropriate to play games. Sensation Light Touch Partial deficits in the LUE;Partial deficits in the RLE;Partial deficits in the LLE Additional Comments Pt reports his left hand is numb and that he has peripheral neuropathy in his Anthony feet at baseline ADL Grooming Assistance Stand by;Sitting upright in bed Grooming Deficit Brushing hair LE Dressing Assistance Maximal;Sitting at EOB LE Dressing Deficit Don/doff R sock;Don/doff L sock Bed Mobility Supine to Sit Min assist to left Other (Comment) HOB elevated; Pt reports he max elevates his bed at home in order to get out of bed Functional Transfers Sit to Stand Independent Bed to Chair Independent Functional Mobility Pt performed stand pivot transfer to/from bed to/from w/c without AD with [place]. Uses w/c arm and bed rail for support. Declines sitting in recliner chair and w/c. Balance Sitting - Static Independent Sitting - Dynamic Modified independence Standing - Static Independent Standing - Dynamic Modified independence (use of w/c arm and bed rail for support) Other (Comment) No LOB. Assessment Occupational Profile and History Complexity Moderate (Expanded) Performance Skills Deficits Bathing/showering;Dressing;Functional mobility;Personal hygiene and grooming;Toileting Performance Deficit Level Moderate (3-5 deficits) Clinical Decision Making Low (no modifications) Complexity Level of Evaluation Moderate Prognosis Fair Discharge Recommendation OT Recommendation Home with assistance;No skilled OT OT Equipment Recommended Currently has DME in Place No Skilled OT No acute OT goals identified Plan Progress Discontinue OT OT - Next Appointment 09/02/23 If this is the last treatment note, it will serve as the discharge summary Yes End of Session End of Session Safety Bed alarm set/activated;Call light within reach;Nursing aware of session (called RN to update on how Pt transfers; RN not available and did not answer) Education: Primary Learners Name: Vinay Wilburn Primary Language of learner: Malagasy Patient was educated on precautions transfers ADLs balance bed mobility equipment therapy plan safety. Education was completed one to one verbal hands-on this date. Preference of learning new concepts one to one verbal hands-on Barriers to education this date were Pt motivation fatigue. Response to education this date verbalized understanding demos adequately needs assistance. * Freida Brady RN - 09/02/2023 10:00 AM CDT 09/02/23 1000 Interdisciplinary Group Conference Team Members Present Physician;Case/Care management;Nursing Physician present for group conference Dr Pagan Barriers to Discharge Barriers No Barrier- Medical Milestone in Process No Barrier- Medical Milestone in Process follow up patient admitted with dizziness and shortness ofbreath during dialysis; prolonged QTc; weakness; K - 3.1 today, replaced; nephrology consult; PT/OT evals pending; CT unremarkable; possible discharge tomorrow pending therapy recommendations. *Patient may downgrade to general bed with telemetry. * Denise De La O MD - 09/01/2023 10:59 PM CDT Images from the original note were not included. Advance Care Planning Note - I discussed goals of care and medical treatment wishes based on pts preferences and value for thediagnosis severe hypokalemia prolonged QTc - We discussed advanced directives including need for CPR if arrhythmia happens the patient wants to be full code - This meeting was conducted with pt. We spent 16 minutes today DENISE DE LA O MD documented in this encounter H&P Notes * Denise De La O MD - 09/01/2023 10:24 PM CDT Images from the original note were not included. Attending Provider: Denise De La O MD PCP: MERY MAXWELL MD Reason for Admission: Hypokalemia EKG, abnormal History of present illness (HPI): Vinay Wilburn is an 52-year-old male. with PMHx of HTN, HLP, chronic hypotension on Midodrine, Hxof ESRD on TTS HD, Afib on dOAC who went to the [facility] after he became dizzy and SOB after HD. Patient told me before going to the dialysis he was feeling like his baseline usual state of health. Patient was scheduled to get 2.8 L removed however after 2.5L of UF patient started to feel dizzy and SOB. when he developed symptoms his HD was stopped and patient was sent to the local ER. Patientwas noted to have severe hypokalemia, hypomagnesemia and prolonged QTc. Patient was given K and Mg and is being transferred to [facility] for further evaluation and management. He told me that this is the second time such symptoms happened he did not have LOC. Last time he was presented to emergency on 08/26 with similar presentation, he was given potassium and discharged from the ED at that time. His potassium was 2.5. And similar symptoms happen again today with low potassium Assessment And Plan: Mr. Vinay Wilburn is a 52 year old male patient with PMHx of HLP, chronic hypotension on Midodrine, Hx of ESRD on TTS HD, Afib on dOAC who went to the [facility] after he became dizzy and SOB after HD. Patient was noted to have hypoK, hypoMg and prolonged QTc and is being transferred to [facility]. I reviewed the previous medical record, last discharge summary last ED visit previous patient's home medications and outside record. Symptoms are likely due to electrolyte imbalance and QTc prolongation. Not sure why he is having hypokalemia post HD. Need medical admission for further evaluation and treatment #. Prolonged QTc #. Severe HypoK #. HypoMg - Likely acquired prolongation of QTc from electrolyte derangements and mild bradycardia of 59. I have ordered the stat EKG and reviewed the results now. Shows sinus bradycardia 58 QTc is better 443 now. Patient symptoms are getting improved - Obtain serum K and Mg on stat labs were ordered.. Replete electrolytes. -Since QTc has improved resume home medications from the morning - BMP and Mg in AM. Repeat EKG in the morning again. If QTc prolongation happens consider EP consultation # Presyncope/dizziness CT head was unremarkable, small vessel disease EKG reviewed showed prolonged QTc I will order ultrasound of the carotids bilateral and echocardiogram #. Hx of Afib on dOAC - Resume home Coreg with holding parameters - Continue dOAC #. Hx of ESRD on HD - Continue HD TTS. - Was scheduled to under go 2.8L of UF but only did 2.5L and his session was cut sightly short due to symptoms of dizziness and SOB. -I have placed nephrology consultation to better review the hypokalemia during dialysis and if anything needs to be changed. #. Hx of HLP - Resume home lipitor Diabetes mellitus on insulin Resuming the Lantus and putting on sliding scale Manage POCT Chronic CHF BNP is 10,000, not on any diuretic at home I will order echocardiogram to check the heart functions and valvular anatomy Currently patient is on room air consider hemodialysis in the morning even if for short time Patient does make urine denies any dysuria. Chronic anemia From CKD, monitor CBC #. Chronic hypotension - Continue home Midodrine with parameters. 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 Will likely require hospital stay greater than 2 midnights at this time Total Time: 75 Minutes Total time spent including clinical decision making, review of labs and previous records, physical examination, discussing with patient about current medical condition and management as well as documenting in the medical record. DENISE DE LA O MD 09/01/2023 Review of Systems Constitutional: Positive for malaise/fatigue. Respiratory: Positive for shortness of breath. Cardiovascular: Negative for chest pain. Neurological: Positive for dizziness. Negative for seizures and loss of consciousness. All other systems reviewed and are negative. 12 point review of systems was completed and negative except findings reported above in HPI. Physical Exam Vitals and nursing note reviewed. Constitutional: General: He is in acute distress. Appearance: He is ill-appearing and toxic-appearing. He is not diaphoretic. HENT: Head: Normocephalic. Right Ear: Ear canal normal. Left Ear: Ear canal normal. Nose: Nose normal. Mouth/Throat: Mouth: Mucous membranes are dry. Eyes: General: No scleral icterus. Extraocular Movements: Extraocular movements intact. Pupils: Pupils are equal, round, and reactive to light. Cardiovascular: Rate and Rhythm: Normal rate and regular rhythm. Pulses: Normal pulses. Heart sounds: No murmur heard. No friction rub. No gallop. Pulmonary: Effort: Respiratory distress present. Breath sounds: No stridor. Rales present. No wheezing or rhonchi. Chest: Chest wall: No tenderness. Abdominal: General: Bowel sounds are normal. There is distension. Palpations: Abdomen is soft. Tenderness: There is no abdominal tenderness. There is no right CVA tenderness, left CVA tenderness, guarding or rebound. Hernia: A hernia is present. Musculoskeletal: General: Tenderness and deformity (left hand muscle wasting) present. No swelling. Normal range of motion. Cervical back: Normal range of motion and neck supple. No rigidity or tenderness. Right lower leg: Edema present. Left lower leg: Edema present. Lymphadenopathy: Cervical: No cervical adenopathy. Skin: General: Skin is warm. Capillary Refill: Capillary refill takes less than 2 seconds. Coloration: Skin is not jaundiced or pale. Findings: No bruising. Neurological: General: No focal deficit present. Mental Status: He is alert and oriented to person, place, and time. Mental status is at baseline. Cranial Nerves: No cranial nerve deficit. Sensory: No sensory deficit. Motor: No weakness. Psychiatric: Mood and Affect: Mood normal. Past Medical History: Diagnosis Date A-fib ([facility]) Constipation Diabetes mellitus ([facility]) ESRD (end stage renal disease) ([facility]) GERD (gastroesophageal reflux disease) Gout, unspecified High cholesterol Neuropathy 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[facility]) Allergies: Review of patient's allergies indicates: Allergen Reactions Amoxicillin Hives Social History Tobacco Use Smoking status: Former Types: Cigarettes Smokeless tobacco: Never Substance Use Topics Alcohol use: Not Currently Past Surgical History: Procedure Laterality Date FISTULA CANNULATION SET, EA TONSILLECTOMY No family history on file. Travel Exposure: No current facility-administered medications on file prior [...] the skin 3(three) times daily. SLIDING SCALE lanthanum carbonate (FOSRENOL) 1000 MG Chew Tab [...] every 6 hours as needed for pain Principal Problem: Hypokalemia SNOMED CT(R): HYPOKALEMIA Active Problems: EKG, abnormal SNOMED CT(R): ELECTROCARDIOGRAM ABNORMAL Blood pressure 136/71, pulse (!) 59, temperature 98.2 ??F (36.8 ??C), temperature source Oral, resp. rate 22, height 1.854 m (6' 1 ), weight 113.6 kg (250 lb 8 oz), SpO2 96 %. Recent Labs 09/01/23 1619 WBC 8.39 HGB 12.3* HCT 37.7 MCV 100.3* PLT 285 RBC 3.76* Recent Labs 09/01/23 1619 ALT 12* AST 12* CO2 31.0 CL 95* GLU 155* K 2.7* NA 136 BUN 27* Imaging as per radiologist: CT HEAD WO CON Result Date: 09/01/2023 IMPRESSION: 1. No definite CT evidence of acute intracranial abnormality, as above. 2. Possible small vessel disease. Ordered By: LASHAUN PHAM Interpreted By: Davis Littlejohn MD, 09/01/2023 4:53 PM XR CHEST PORTABLE Result Date: 09/01/2023 IMPRESSION: 1) No radiographic evidence of active disease the chest. Ordered By: LASHAUN PHAM Interpreted By: Liborio Villeda MD, 09/01/2023 4:56 PM DENISE DE LA O MD 09/01/2023 [facility]. Please call us if any qts or concerns documented in this encounter Consult Notes * Edwin De La O MD - 09/02/2023 6:38 PM CDT [facility] Nephrology ESRD New Consult Date of Consult: 09/02/2023 Reason for request : Hemodialysis in ESRD patient. HISTORY OF PRESENT ILLNESS Patient [place] with PMH of Afib, hypotension, chronic CHF, DM, HLD, DVT on Eliquis, ESRD on TTS HD. Patient was admitted for dizziness and hypokalemia after his HD session yesterday. Patient states that he gets his HD done over 4 hrs with 1-2 UF but yesterday they removed about 2.8. Patient reports diarrhea for the last 2 weeks. Patient does not report any recent GI infection or dietary changes.Patient denies melena and hematochezia. Patient also reports intermittent chills without fever at home. Patient has LUE AVF. He does not report using a binder at home. No reported SOB, chest pain, vomiting, fever, night sweats, abdominal pain/tenderness, dysuria, cough. Review of Systems: ROS negative except as noted above. PAST MEDICAL AND SURGICAL HISTORY Past Medical History: Diagnosis Date A-fib ([facility] Constipation Diabetes mellitus ([facility] ESRD (end stage renal disease) ([facility]) GERD (gastroesophageal reflux disease) Gout, unspecified High cholesterol Neuropathy 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[facility]) Past Surgical History: Procedure Laterality Date FISTULA CANNULATION SET, EA TONSILLECTOMY FAMILY HISTORY No family history on file. SOCIAL HISTORY Social History Socioeconomic History Marital status: Unknown Spouse name: Not on file Number of children: Not on file Years of education: Not on file Highest education level: Not on file Occupational History Not on file Tobacco Use Smoking status: Former Types: Cigarettes [...] declined Lack of Transportation (Non-Medical): Patient declined Physical Activity: Not on file Stress: Not on file Social Connections: Not on file Intimate Partner Violence: Patient Declined (09/01/2023) Humiliation, [...] Housing in the Last Year: Patient declined MEDICATIONS: Home Medications: Prior to Admission medications Medication Sig Start Date End Date Taking? Authorizing Provider allopurinol (ZYLOPRIM) 100 MG tablet Take 1 tablet (100 mg total) by mouth 2 (two) times daily. 08/03/23 Yes Default History Genericprovider amiodarone (PACERONE) 200 MG tablet Take 2 tablets (400 mg total) by mouth daily. 08/03/23 Yes Default History Genericprovider atorvastatin (LIPITOR) 20 MG tablet Take 1 tablet (20 mg total) by mouth daily. 08/03/23 Yes DefaultHistory Genericprovider calcitriol (ROCALTROL) 0.25 MCG capsule Take 1 capsule (0.25 mcg total) by mouth every other day. T-TH-SAT 08/03/23 Yes Default History Genericprovider carvedilol (COREG) 12.5 MG tablet Take 1 tablet (12.5 mg total) by mouth 2 (two) times daily. 10/13/22 Yes Default History Genericprovider Cholecalciferol 50 MCG (2000 UT) Tab Take 2 Capfuls by mouth daily. Yes Default History Genericprovider ELIQUIS 5 MG [...] before meals. 12/17/22 Yes Default History Genericprovider midodrine (PROAMATINE) 10 MG tablet Take 1 tablet (10 mg total) by mouth 3 (three) times daily. 08/03/23 Yes Default History Genericprovider traMADol (ULTRAM) 50 MG tablet Take 1 tablet (50 mg total) by mouth every 6 (six) hours as needed for Pain. Yes Default History Genericprovider fluticasone propionate (FLONASE) 50 MCG/ACT nasal spray 1 spray by Nasal route daily. 01/30/23 Default History Genericprovider insulin lispro, 1 Unit [...] needed for pain 08/19/23 Vinay Mosher MD Current Hospital Medications: Scheduled: allopurinol 100 mg Oral BID amiodarone 200 mg Oral Daily apixaban 5 mg Oral BID atorvastatin 20 mg Oral Nightly at bedtime [START ON 09/03/2023] calcitriol 0.25 mcg Oral Once per day on Thu carvedilol 12.5 mg Oral BID gabapentin 100 mg Oral BID insulin glargine 10 Units Subcutaneous Nightly at bedtime insulin lispro 0-12 Units Subcutaneous 4x Daily AC and at bedtime midodrine 10 mg Oral TID pantoprazole EC 40 mg Oral Daily Senna 1 tablet Oral Daily vitamin D3 2,000 Units Oral Daily Continuous Infusions: Allergies: Review of patient's allergies indicates: Amoxicillin OBJECTIVE: Vital Signs: Last Filed Vitals Signs: 24 Hour Range @LASTFILEDBP@ @24HOURRANGEBP@ @LASTFILEDTEMP@ @24HOURRANGETEMP@ @LASTFILEDPULSE@ @24HRANGEPULSE@ @LASTFILEDRR@ @RANGERR@ @LASTFILEDSPO2@ @48WUAWILNVAUON6@ Intake/Output Summary (Last 24 hours) at 09/02/2023 1842 Last data filed at 09/02/2023 1745 Gross per 24 hour Intake 1010 ml Output 100 ml Net 910 ml Physical Exam: Constitutional: in no apparent distress Eyes: EOMI Mouth/Throat: moist oral mucosa Respiratory: clear to auscultation, no wheezes, rales or rhonchi, symmetric air entry Cardiac: regular rate and rhythm Abdomen/GI: Soft, non-distended, non-tender abdomen Extremities: peripheral pulses normal, no pedal edema, no clubbing or cyanosis, no pedal edema noted Neurologic:No focal deficits Integumentary: Warm and dry. no hyperpigmentation, vitiligo, or suspicious lesions Access: LUE AVF Labs: Recent Labs Lab 08/27/23 1425 09/01/23 1619 09/02/23 0249 WBC 6.80 8.39 7.68 HGB 11.8* 12.3* 11.6* HCT 37.0 37.7 35.4* MCV 100.5* 100.3* 99.7 Assessment & Plan: Vinay Wilburn is a 52-year-old male with ESRD on TTS HD via LUE AVF currently admitted for lightheadedness and hypokalemia post HD session yesterday. - ESRD: on 3 day a week schedule. T / / THU. Last dialyzed yesterday. Patient will receive next dialysis tomorrow Please see the nursing staff dialysis note for details of the procedure. Patient will be dialyzed on a F160 high-flux polysulfone hemofilter for 4 hours on a no- anticoagulation protocol. - Hypertension: BP control optimal/suboptimal. Please reevaluate blood pressure after hemodialysis,as achieving the dry weight may resolve elevated blood pressure. - Anemia: Hb is at treatment goal of 10 to 11. Please check Iron indices. - Bone and Mineral Disease: Goal for the iPTH [id number] pg/ml and phosphorus level between 3.5-5.5 mg/dl. Patient last iPTH is unkown. Please check PTH and phos Patient is not using any binder at home. - Volume status: Euvolemic. We will ultrafiltrate pt as tolerated. - Electrolytes: within normal limits Plan: -HD tomorrow Thank you for this consult. We will continue to follow along Edwin De La O MD 09/02/2023 6:42 PM Cosigned by Bebo Kearns MD at 10/02/2023 11:32 AM CDT Associated attestation - Bebo Kearns MD - 10/02/2023 11:32 AM CDT I saw and personally examined the patient and discussed the case with the resident. I have reviewedthe resident???s note and agree with the content and plan as written. Teaching physician supervised in person. documented in this encounter Nursing Notes * Carrillo Reaganician - 09/03/2023 6:54 AM CDT Patient dialyzes in [place] [facility]... records requested 09/03/2023. 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 [facility]-[address] [place] [phone] Martha Ramirez, [facility]- [address] [place] [address] documented as of this encounter Procedures Procedure Name Priority Date/Time Associated Diagnosis Comments POCT GLUCOSE - PERES DOCKED DEVICE Routine 09/04/2023 4:17 PM CDT POCT GLUCOSE - PERES DOCKED DEVICE Routine 09/04/2023 11:25 AM CDT POCT GLUCOSE - PERES DOCKED DEVICE Routine 09/04/2023 6:22 AM CDT COMPREHENSIVE METABOLIC PANEL Routine 09/04/2023 4:18 AM CDT CBC W/DIFF AUTOMATED Routine 09/04/2023 4:18 AM CDT PHOSPHORUS, INORGANIC PHOSPHATE Routine 09/04/2023 4:18 AM CDT MAGNESIUM Routine 09/04/2023 4:18 AM CDT POCT GLUCOSE - PERES DOCKED DEVICE Routine 09/03/2023 8:38 PM CDT POCT GLUCOSE - PERES DOCKED DEVICE Routine 09/03/2023 4:38 PM CDT POCT GLUCOSE - PERES DOCKED DEVICE Routine 09/03/2023 1:15 PM CDT COMPREHENSIVE METABOLIC PANEL Routine 09/03/2023 9:30 AM CDT HEPATITIS B SURFACE AG, EIA STAT 09/03/2023 9:30 AM CDT HEPATITIS B SURFACE ANTIBODY STAT 09/03/2023 9:30 AM CDT CBC W/DIFF AUTOMATED Routine 09/03/2023 9:30 AM CDT PHOSPHORUS, INORGANIC PHOSPHATE Routine 09/03/2023 9:30 AM CDT MAGNESIUM Routine 09/03/2023 9:30 AM CDT POCT GLUCOSE - PERES DOCKED DEVICE Routine 09/03/2023 6:43 AM CDT POCT GLUCOSE - PERES DOCKED DEVICE Routine 09/02/2023 9:28 PM CDT CLOSTRIDIUM DIFFICILE Nurse Collected Priority 09/02/2023 6:45 PM CDT POCT GLUCOSE - PERES DOCKED DEVICE Routine 09/02/2023 4:57 PM CDT POCT GLUCOSE - PERES DOCKED DEVICE Routine 09/02/2023 11:38 AM CDT USE ECHOCARDIOGRAM W CON Today 09/02/2023 10:20 AM CDT POCT GLUCOSE - PERES DOCKED DEVICE Routine 09/02/2023 8:03 AM CDT US CAROTID DUPLEX ANTHONY Today 09/02/2023 7:50 AM CDT HEMOGLOBIN, GLYCOSYLATED Routine 09/02/2023 2:49 AM CDT BASIC METABOLIC PANEL Routine 09/02/2023 2:49 AM CDT CBC W/DIFF AUTOMATED Routine 09/02/2023 2:49 AM CDT MAGNESIUM Routine 09/02/2023 2:49 AM CDT BASIC METABOLIC PANEL Routine 09/02/2023 12:30 AM CDT MAGNESIUM Routine 09/02/2023 12:30 AM CDT ECG 12-LEAD Routine 09/01/2023 10:38 PM CDT POCT GLUCOSE - PERES DOCKED DEVICE Routine 09/01/2023 10:23 PM CDT documented in this encounter Results * (ABNORMAL) POCT glucose (09/04/2023 4:17 PM CDT) GLUCOSE POC 155(H) 70 - 109 09/04/2023 4:21 PM CDT [facility] 09/04/2023 4:17 PM CDT us Troy Pagan MD POCT ORDERABLES - DEVICE Final Result Performing Organization Address [facility] Co de Phone Number [facility] [address] [place] [address], [phone] * (ABNORMAL) POCT glucose (09/04/2023 11:25 AM CDT) GLUCOSE POC 160(H) 70 - 109 09/04/2023 11:27 AM CDT [facility] 09/04/2023 11:2 5 AM CDT us Troy Pagan MD POCT ORDERABLES - DEVICE Final Result Performing Organization Address [facility] Co de Phone Number [facility] [address] [place] [address], [place] [phone] * (ABNORMAL) POCT glucose (09/04/2023 6:22 AM CDT) GLUCOSE POC 158(H) 70 - 109 09/04/2023 6:27 AM CDT [facility] 09/04/2023 6:22 AM CDT us Troy Pagan MD POCT ORDERABLES - DEVICE Final Result Performing Organization Address City/[facility] Co de Phone Number [facility] [address] [place] [address], [phone] * PHOSPHORUS, INORGANIC PHOSPHATE (09/04/2023 4:18 AM CDT) PHOSPHORUS 4.4 2.5 - 4.9 MG/DL 09/04/2023 5:20 AM CDT [facility] 09/04/2023 4:18 AM CDT Troy Pagan MD LABORATORY Final Res ult [facility] [address] [place] [address], [phone] * (ABNORMAL) CBC W/DIFF AUTOMATED (09/04/2023 4:18 AM CDT) Pathologist [facility] WBC 6.65 4.00 - 10.80 x10'3/uL 09/04/2023 4:41 AM CDT [facility] RBC 3.38(L) 4.50 - 6.10 x10'6/uL 09/04/2023 4:41 AM CDT [facility] HGB 10.9(L) 13.0 - 18.0 G/DL 09/04/2023 4:41 AM CDT [facility] HCT 34.1(L) 37.0 - 52.0 % 09/04/2023 4:41 AM CDT [facility] MCV 100.9(H) 78.0 - 100.0 FL 09/04/2023 4:41 AM CDT [facility] MCH 32.2(H) 27.0 - 31.0 PG 09/04/2023 4:41 AM CDT [facility] MCHC 32.0(L) 33.0 - 36.0 G/DL 09/04/2023 4:41 AM CDT [facility] RDW 14.4 11.5 - 14.5 % 09/04/2023 4:41 AM CDT [facility] PLT 231 150 - 350 x10'3/uL 09/04/2023 4:41 AM CDT [facility] MPV 9.6 7.4 - 10.4 FL 09/04/2023 4:41 AM CDT [facility] ABS. NEUTROPHILS 3.75 1.60 - 8.30 x10'3/uL 09/04/2023 4:41 AM CDT [facility] ABS. LYMPHOCYTES 1.59 0.80 - 4.70 x10'3/uL 09/04/2023 4:41 AM CDT [facility] ABS. MONOCYTES 0.51 0.00 - 1.50 x10'3/uL 09/04/2023 4:41 AM CDT [facility] ABS. EOSINOPHILS 0.64(H) 0.00 - 0.40 x10'3/uL 09/04/2023 4:41 AM CDT [facility] ABS. BASOPHILS 0.08 0.00 - 0.20 x10'3/uL 09/04/2023 4:41 AM CDT [facility] ABS. IMMATURE GRANULOCYTES 0.08(H) 0.00 - 0.03 x10'3/uL 09/04/2023 4:41 AM CDT [facility] ABS. NUCLEATED RBC'S 0.00 0.0 x10'3/uL 09/04/2023 4:41 AM CDT [facility] 09/04/2023 4:18 AM CDT us Troy Pagan MD LABORATORY Final Res ult [facility] [address] [place] [address], [phone] * (ABNORMAL) COMPREHENSIVE METABOLIC PANEL (09/04/2023 4:18 AM CDT) SODIUM S/P/B 137 136 - 145 MMOL/L 09/04/2023 5:20 AM CDT [facility] POTASSIUM S/P/B 3.3(L) 3.5 - 5.1 MMOL/L 09/04/2023 5:20 AM CDT [facility] CHLORIDE S/P/B 101 98 - 107 MMOL/L 09/04/2023 5:20 AM CDT [facility] CO2 27.9 21.0 - 32.0 MMOL/L 09/04/2023 5:20 AM CDT [facility] GLUCOSE 183(H) 74 - 106 MG/DL 09/04/2023 5:20 AM CDT [facility] BUN 34(H) 7 - 18 MG/DL 09/04/2023 5:20 AM CDT [facility] CREATININE S/P/B 4.78(H) 0.70 - 1.30 MG/DL 09/04/2023 5:20 AM CDT [facility] CALCIUM S/P/B 9.3 8.5 - 10.1 MG/DL 09/04/2023 5:20 AM CDT [facility] BILIRUBIN TOTAL S/P/B 0.7 0.2 - 1.0 MG/DL 09/04/2023 5:20 AM CDT [facility] ALKALINE PHOSPHATASE S/P/B 49 45 - 115 U/L 09/04/2023 5:20 AM CDT [facility] AST 12(L) 15 - 37 U/L 09/04/2023 5:20 AM CDT [facility] ALT 16 16 - 61 U/L 09/04/2023 5:20 AM CDT [facility] TOTAL PROTEIN S/P/B 7.5 6.4 - 8.2 G/DL 09/04/2023 5:20 AM CDT [facility] ALBUMIN S/P/B 3.2(L) 3.4 - 5.0 G/DL 09/04/2023 5:20 AM CDT [facility] ANION GAP 8.1 5.0 - 15.0 MMOL/L 09/04/2023 5:20 AM CDT [facility] OSMOLALITY (CALC) 296 MOSM/KG 024 5:20 AM CDT [facility] Comment:REFERENCE RANGE NOT ESTABLISHED GFR ESTIMATE 14(L) >90 ML/MIN/1. 73 M2 09/04/2023 5:20 AM CDT [facility] GFR NOTES GFR REFERENCE S: 09/04/2023 5:20 AM CDT [facility] Comment: THE ESTIMATED GFR IS [...] ml/min/1.73 m2 G5,KIDNEY FAILURE: <15 ml/min/1.73 m2 09/04/2023 4:18 AM CDT Troy Pagan MD LABORATORY Final Res ult [facility] [address] [place] [address], [id number] * MAGNESIUM (09/04/2023 4:18 AM CDT) MAGNESIUM 2.1 1.6 - 2.6 MG/DL 09/04/2023 5:20 AM CDT [facility] 09/04/2023 4:18 AM CDT Denise De La O MD LABORATORY Final Res ult [facility] [address] [place] [address], [place] [phone] * (ABNORMAL) POCT glucose (09/03/2023 8:38 PM CDT) GLUCOSE POC 158(H) 70 - 109 09/03/2023 8:58 PM CDT [facility] 09/03/2023 8:38 PM CDT us Troy Pagan MD POCT ORDERABLES - DEVICE Final Result Performing Organization Address [facility] Co de Phone Number [facility] [address] [place] [address], [place] [phone] * (ABNORMAL) POCT glucose (09/03/2023 4:38 PM CDT) GLUCOSE POC 161(H) 70 - 109 09/03/2023 5:09 PM CDT [facility] 09/03/2023 4:38 PM CDT us Troy Pagan MD POCT ORDERABLES - DEVICE Final Result Performing Organization Address [facility] Co de Phone Number [facility] [address] [place] [address], [place] [phone] * (ABNORMAL) POCT glucose (09/03/2023 1:15 PM CDT) GLUCOSE POC 168(H) 70 - 109 09/03/2023 1:18 PM CDT [facility] 09/03/2023 1:15 PM CDT us Troy Pagan MD POCT ORDERABLES - DEVICE Final Result Performing Organization Address [facility]/ZIP Co de Phone Number [facility] [address] [place] [address], [phone] * HEPATITIS B SURFACE AG, EIA (09/03/2023 9:30 AM CDT) HEPATITIS B SURFACE AG NON-REACTI VE NON-REACTI VE 09/03/2023 11:08 AM CDT [facility] Comment:HBsAg NOT DETECTED. 09/03/2023 9:30 AM CDT Bebo Kearns MD LABORATORY Final Result Performing Organization Address City/[facility]/ZIP Co de Phone Number [facility] [address] [place] [address], [phone] * (ABNORMAL) HEPATITIS B SURFACE ANTIBODY (09/03/2023 9:30 AM CDT) HEP B SURFACE AB <3.1(L) >9.9 MIU/ML 09/03/2023 11:08 AM CDT [facility] Comment:INDIVIDUAL IS CONSID ERED NOT IMMUNE TO HBV INFECTION. 09/03/2023 9:30 AM CDT Bebo Kearns MD LABORATORY Final Result [facility] [address] [place] [address], [phone] * (ABNORMAL) PHOSPHORUS, INORGANIC PHOSPHATE (09/03/2023 9:30 AM CDT) PHOSPHORUS 5.4(H) 2.5 - 4.9 MG/DL 09/03/2023 10:18 AM CDT [facility] 09/03/2023 9:30 AM CDT Troy Pagan MD LABORATORY Final Res ult [facility] [address] [place] [address], [phone] * (ABNORMAL) CBC W/DIFF AUTOMATED (09/03/2023 9:30 AM CDT) WBC 6.91 4.00 - 10.80 x10'3/uL 09/03/2023 9:52 AM CDT [facility] RBC 3.22(L) 4.50 - 6.10 x10'6/uL 09/03/2023 9:52 AM CDT [facility] HGB 10.7(L) 13.0 - 18.0 G/DL 09/03/2023 9:52 AM CDT [facility] HCT 32.7(L) 37.0 - 52.0 % 09/03/2023 9:52 AM CDT [facility] MCV 101.6(H) 78.0 - 100.0 FL 09/03/2023 9:52 AM CDT [facility] MCH 33.2(H) 27.0 - 31.0 PG 09/03/2023 9:52 AM CDT [facility] MCHC 32.7(L) 33.0 - 36.0 G/DL 09/03/2023 9:52 AM CDT [facility] RDW 14.6(H) 11.5 - 14.5 % 09/03/2023 9:52 AM CDT [facility] PLT 247 150 - 350 x10'3/uL 09/03/2023 9:52 AM CDT [facility] MPV 9.8 7.4 - 10.4 FL 09/03/2023 9:52 AM CDT [facility] ABS. NEUTROPHILS 4.41 1.60 - 8.30 x10'3/uL 09/03/2023 9:52 AM CDT [facility] ABS. LYMPHOCYTES 1.46 0.80 - 4.70 x10'3/uL 09/03/2023 9:52 AM CDT [facility] ABS. MONOCYTES 0.35 0.00 - 1.50 x10'3/uL 09/03/2023 9:52 AM CDT [facility] ABS. EOSINOPHILS 0.53(H) 0.00 - 0.40 x10'3/uL 09/03/2023 9:52 AM CDT [facility] ABS. BASOPHILS 0.08 0.00 - 0.20 x10'3/uL 09/03/2023 9:52 AM CDT [facility] ABS. IMMATURE GRANULOCYTES 0.08(H) 0.00 - 0.03 x10'3/uL 09/03/2023 9:52 AM CDT [facility] ABS. NUCLEATED RBC'S 0.00 0.0 x10'3/uL 09/03/2023 9:52 AM CDT [facility] 09/03/2023 9:30 AM CDT us Troy Pagan MD LABORATORY Final Res ult [facility] [address] [place] [address], [phone] * (ABNORMAL) COMPREHENSIVE METABOLIC PANEL (09/03/2023 9:30 AM CDT) Pathologist [facility] SODIUM S/P/B 135(L) 136 - 145 MMOL/L 09/03/2023 10:18 AM CDT [facility] POTASSIUM S/P/B 3.3(L) 3.5 - 5.1 MMOL/L 09/03/2023 10:18 AM CDT [facility] CHLORIDE S/P/B 101 98 - 107 MMOL/L 09/03/2023 10:18 AM CDT [facility] CO2 24.9 21.0 - 32.0 MMOL/L 09/03/2023 10:18 AM [facility] GLUCOSE 216(H) 74 - 106 MG/DL 09/03/2023 10:18 AM [facility] BUN 49(H) 7 - 18 MG/DL 09/03/2023 10:18 AM [facility] CREATININE S/P/B 5.45(H) 0.70 - 1.30 MG/DL 09/03/2023 10:18 AM [facility] CALCIUM S/P/B 9.1 8.5 - 10.1 MG/DL 09/03/2023 10:18 AM [facility] BILIRUBIN TOTAL S/P/B 0.6 0.2 - 1.0 MG/DL 09/03/2023 10:18 AM [facility] ALKALINE PHOSPHATASE S/P/B 43(L) 45 - 115 U/L 09/03/2023 10:18 AM [facility] AST 12(L) 15 - 37 U/L 09/03/2023 10:18 AM [facility] ALT 13(L) 16 - 61 U/L 09/03/2023 10:18 AM [facility] TOTAL PROTEIN S/P/B 7.2 6.4 - 8.2 G/DL 09/03/2023 10:18 AM [facility] ALBUMIN S/P/B 3.1(L) 3.4 - 5.0 G/DL 09/03/2023 10:18 AM [facility] ANION GAP 9.1 5.0 - 15.0 MMOL/L 09/03/2023 10:18 AM [facility] OSMOLALITY (CALC) 300 MOSM/KG 024 10:18 AM [facility] Comment:REFERENCE RANGE NOT ESTABLISHED GFR ESTIMATE 12(L) >90 ML/MIN/1. 73 M2 09/03/2023 10:18 AM CDT [facility] GFR NOTES GFR REFERENCE S: 09/03/2023 10:18 AM CDT [facility] Comment: THE ESTIMATED GFR IS [...] ml/min/1.73 m2 G5,KIDNEY FAILURE: <15 ml/min/1.73 m2 09/03/2023 9:30 AM CDT Troy Pagan MD LABORATORY Final Res ult [facility] [address] [place] [address], [id number] * MAGNESIUM (09/03/2023 9:30 AM CDT) MAGNESIUM 2.0 1.6 - 2.6 MG/DL 09/03/2023 10:18 AM CDT [facility] 09/03/2023 9:30 AM CDT Denise De La O MD LABORATORY Final Res ult Performing Organization Address City/[facility]/ZIP Co de Phone Number [facility] [address] [place] [address], [phone] * (ABNORMAL) POCT glucose (09/03/2023 6:43 AM CDT) GLUCOSE POC 170(H) 70 - 109 09/03/2023 6:52 AM CDT [facility] 09/03/2023 6:43 AM CDT us Troy Pagan MD POCT ORDERABLES - DEVICE Final Result Performing Organization Address [facility] Co de Phone Number [facility] [address] [place] [address], [phone] * (ABNORMAL) POCT glucose (09/02/2023 9:28 PM CDT) Pathologist [facility] GLUCOSE POC 242(H) 70 - 109 09/02/2023 9:31 PM CDT [facility] 09/02/2023 9:28 PM CDT us Troy Pagan MD POCT ORDERABLES - DEVICE Final Result Performing Organization Address [facility] de Phone Number [facility] [address] [place] [address], [phone] * CLOSTRIDIUM DIFFICILE (09/02/2023 6:45 PM CDT) [facility] GDH ANTIGEN NEGATIVE NEGATIVE 09/02/2023 9:07 PM CDT [facility] C DIFFICILE TOXIN A&B (STOOL) NEGATIVE NEGATIVE 09/02/2023 9:07 PM CDT [facility] COMMENT GDH NEGATIVE/TOXI N A & B NEGATIVE: NEGATIVE FOR TOXIGENIC C. DIFFICILE. GDH NEGATIVE/TOXI N A & B NEGATIVE: NEGATIVE FOR TOXIGENIC C. 09/02/2023 9:07 PM CDT [facility] STOOL SPECIMEN / Unknown 09/02/2023 6:45 PM CDT us Troy Pagan MD BODY FLUIDS AND STOOLS OR DERABLES Final Result Performing Organization Address [facility] Co de Phone Number [facility] [address] [place] [address], [phone] * (ABNORMAL) POCT glucose (09/02/2023 4:57 PM CDT) GLUCOSE POC 192(H) 70 - 109 09/02/2023 5:01 PM CDT [facility] 09/02/2023 4:57 PM CDT Troy Pagan MD POCT ORDERABLES - DEVICE Final Result Performing Organization Address [facility] de Phone Number [facility] [address] [place] [address], [id number] * (ABNORMAL) POCT glucose (09/02/2023 11:38 AM CDT) GLUCOSE POC 238(H) 70 - 109 09/02/2023 11:59 AM CDT [facility] 09/02/2023 11:3 8 AM CDT Troy Pagan MD POCT ORDERABLES - DEVICE Final Result Performing Organization Address [facility] de Phone Number [facility] [address] [place] [address], [phone] * USE ECHOCARDIOGRAM W CON (09/02/2023 10:20 AM CDT) Anatomical Region Laterality Modality NA Echocardiogram 09/02/2023 9:52 AM CDT Narrative 09/03/2023 12:23 PM CDT ?Echocardiography Report Pat.Name: ??VINAY WILBURN ?Pat.ID: ?[id number] ? St.Date: ?? 09/02/2023 ? Refer.MD: ??[id number] ANKIT WILKS ?EWDPROV ?EWDPROV Exam Time: 9:52:00 AM ?Study Type:ECHO W/CONTRAST COMPLETE Height: ?73 in ? Weight: ?250 lb ? BSA: ? 2.37 m2 ?Age: ??1970,52Y ? Sex: ? M ? BP: ?132/68 ? HR: ?57 bpm ?Sonogrphr: Kiana Lyle RDCS ? Pat. Stat.:Inpatient ? Room: ?078 ? Reason for Study:Near syncope ? Procedures: 2D, M-mode, Doppler, Color Flow, Definity was used to enhance endocardial definition. ++++++++++++++++++++++++++++++++++++ SUMMARY: ++++++++++++++++++++++++++++++++++++ Mild concentric left ventricular hypertrophy. ??The left ventricular systolic function is hyperdynamic. ??The calculated ejection fraction is 71%. The right ventricular size is probably normal. ??Right ventricular systolic function appears normal. The left atrial volume is moderately increased. No significant valvular abnormalities identified. ++++++++++++++++++++++++++++++++++++ FINDINGS: ++++++++++++++++++++++++++++++++++++ LV: ? The left ventricular size is normal. The left ventricular ?systolic function is hyperdynamic. The calculated ejection ?fraction is 71%. Mild concentric left ventricular ?hypertrophy. The septal E/e' is indeterminate at 8-15. The ?lateral E/e' is normal at <8. RV: ? The right ventricular size is probably normal. Right ?ventricular systolic function is normal. LA: ? The left atrial volume is moderately increased (42-48 ?ml/M2). RA: ? The right atrium was not well visualized in all views. COLLINS: ? No evidence of pericardial effusion. AO: ? The aortic root measures 3.2 cm. The proximal ascending ?aorta measures 3.3cm. PA: ? Estimated right atrial pressure of 8 mmHg. SVn: ?Inferior vena cava shows >50% collapse with respiration ?consistent with normal right atrial pressure. AV: ? No evidence of aortic valve stenosis. No evidence of aortic ?valve regurgitation. MV: ? No evidence of significant mitral regurgitation. No evidence ?of mitral stenosis. PV: ? No evidence of pulmonic valve stenosis. No evidence of ?pulmonic regurgitation. TV: ? A trace of tricuspid regurgitation. No evidence of tricuspid ?valve stenosis. ++++++++++++++++++++++++++++++++++++ MEASUREMENTS: ++++++++++++++++++++++++++++++++++++ ?DOPPLER LVOT ?? LVOTpkPG ? 5.2 mmHg ?LVOTmnPG ? 2.6 mmHg LVOTpkVel ?114 cm/s (70-110)* LVOT SV ? 85 ml ?? LVOT TVI ?27.1 cm ? AV Forward Flow AV TVI ?35 cm ?AV pkPG ? 10 mmHg AV pkVel ? 155 cm/s (100-170) Area (TVI) ?2.43 cm2 ??(3-5)* AV mnVel ?99.1 cm/s ?Area (Mickey) ?2.31 cm2 ??(3-5)* AV mnPG ?4.8 mmHg ? MV Forward Flow MV DeTm ?206 msec ?MV E/A ? 1.3 ? MVA P1/2t ? 6.11 cm2 ??(4-6)* ?? MV pkE ?60 cm/s (60-130) MV P1/2t ?36 msec (30-60)+ MV pkA ?46.7 cm/s TV Regurg Flow TV pkPG ? 11 mmHg ?TV pkVel ? 167 cm/s (30- 70)* Lat E' ?? Lat e ? 8.27 cm/s ? Lat E/E' ?? Lat E/e ?7.3 ? Med E' ?? Med e ? 4.57 cm/s ? Med E/E' ?? Med E/e ? 13.1 ? Aortic Valve ?? Aortic Valve Ar ??1.03 ?Aortic Valve Ve ??0.74 ? AV DI ?? Value ?0.8 ? ANA LAURA (VTI) Index ?? Value ? 1.03 ? LV Mass 2D ?? Value ?210 g ? LV Mass [id number] ?? Value ? 88.6 g/m2 ? Right Ventricle ?? Right Ventricle ??12.7 cm/s ?2D Left Ventricle ?? LVIDd ? 4.14 cm ?? (3.6-5.2) LV EF(Bi-Plane) ??70.7 % ?(63-77) LVIDs ? 2.11 cm ?? (2.3-3.9)* LVPW ?? LVPWd ? 1.32 cm ? Ventricular Septum ?? IVSd ? 1.4 cm ? Aorta ?? Ao Rtd ? 3.2 cm ? Ao Asc ? 3.3 cm ?? (2.1-3.4) LVOT ?? LVOT ? 2 cm ? Ratios ?? IVS LA Biplane LAVol I BP ?46.8 ml/m2 ?MMODE TA ?? Tricuspid Annul ??1.97 cm ? <Electronic Signature> 09/03/2023 12:23 PM Acosta Fofana M.D. Procedure Note Acosta Fofana MD - 09/04/2023 Echocardiography Report Pat.Name: VINAY WILBURN Holly.ID: [id number] St.Date: 09/02/2023 Refer.: [id number] ANKIT WILKS EWDPROV EWDPROV Exam Time: 9:52:00 AM Study Type:ECHO W/CONTRAST COMPLETE Height: 73 in Weight: 250 lb BSA: 2.37 m2 Age: 6 1970,52Y Sex: M BP: 132/68 HR: 57 bpm Sonogrphr: Kiana Lyle [facility] Pat. Stat.:Inpatient Room: 738 Reason for Study:Near syncope Procedures: 2D, M-mode, Doppler, Color Flow, Definity was used to enhance endocardial definition. ++++++++++++++++++++++++++++++++++++ SUMMARY: ++++++++++++++++++++++++++++++++++++ Mild concentric left ventricular hypertrophy. The left ventricular systolic function is hyperdynamic. The calculated ejection fraction is 71%. The right ventricular size is probably normal. Right ventricular systolic function appears normal. The left atrial volume is moderately increased. No significant valvular abnormalities identified. ++++++++++++++++++++++++++++++++++++ FINDINGS: ++++++++++++++++++++++++++++++++++++ LV: The left ventricular size is normal. The left ventricular systolic function is hyperdynamic. The calculated ejection fraction is 71%. Mild concentric left ventricular hypertrophy. The septal E/e' is indeterminate at 8-15. The lateral E/e' is normal at <8. RV: The right ventricular size is probably normal. Right ventricular systolic function is normal. LA: The left atrial volume is moderately increased (42-48 ml/M2). RA: The right atrium was not well visualized in all views. COLLINS: No evidence of pericardial effusion. AO: The aortic root measures 3.2 cm. The proximal ascending aorta measures 3.3cm. PA: Estimated right atrial pressure of 8 mmHg. SVn: Inferior vena cava shows >50% collapse with respiration consistent with normal right atrial pressure. AV: No evidence of aortic valve stenosis. No evidence of aortic valve regurgitation. MV: No evidence of significant mitral regurgitation. No evidence of mitral stenosis. PV: No evidence of pulmonic valve stenosis. No evidence of pulmonic regurgitation. TV: A trace of tricuspid regurgitation. No evidence of tricuspid valve stenosis. ++++++++++++++++++++++++++++++++++++ MEASUREMENTS: ++++++++++++++++++++++++++++++++++++ DOPPLER LVOT LVOTpkPG 5.2 mmHg LVOTmnPG 2.6 mmHg LVOTpkVel 114 cm/s (70-110)* LVOT SV 85 ml LVOT TVI 27.1 cm AV Forward Flow AV TVI 35 cm AV pkPG 10 mmHg AV pkVel 155 cm/s (100-170) Area (TVI) 2.43 cm2 (3-5)* AV mnVel 99.1 cm/s Area (Mickey) 2.31 cm2 (3-5)* AV mnPG 4.8 mmHg MV Forward Flow MV DeTm 206 msec MV E/A 1.3 MVA P1/2t 6.11 cm2 (4-6)* MV pkE 60 cm/s (60-130) MV P1/2t 36 msec (30-60)+ MV pkA 46.7 cm/s TV Regurg Flow TV pkPG 11 mmHg TV pkVel 167 cm/s (30-70)* Lat E' Lat e 8.27 cm/s Lat E/E' Lat E/e 7.3 Med E' Med e 4.57 cm/s Med E/E' Med E/e 13.1 Aortic Valve Aortic Valve Ar 1.03 Aortic Valve Ve 0.74 AV DI Value 0.8 ANA LAURA (VTI) Index Value 1.03 LV Mass 2D Value 210 g LV Mass Sffio1O Value 88.6 g/m2 Right Ventricle Right Ventricle 12.7 cm/s 2D Left Ventricle LVIDd 4.14 cm (3.6-5.2) LV EF(Bi-Plane) 70.7 % (63-77) LVIDs 2.11 cm (2.3-3.9)* LVPW LVPWd 1.32 cm Ventricular Septum IVSd 1.4 cm Aorta Ao Rtd 3.2 cm Ao Asc 3.3 cm (2.1-3.4) LVOT LVOT 2 cm Ratios IVS LA Biplane LAVol I BP 46.8 ml/m2 MMODE TA Tricuspid Annul 1.97 cm <Electronic Signature> 09/03/2023 12:23 PM Acosta Fofana M.D. Denise De La O MD ECHO Final Res ult * (ABNORMAL) POCT glucose (09/02/2023 8:03 AM CDT) GLUCOSE POC 129(H) 70 - 109 09/02/2023 8:07 AM CDT [facility] 09/02/2023 8:03 AM CDT Troy Pagan MD POCT ORDERABLES - DEVICE Final Result [facility] [address] [place] [address], [id number] * US CAROTID DUPLEX ANTHONY (09/02/2023 7:50 AM CDT) Anatomical Region Laterality Modality NA Ultrasound 09/03/2023 1:29 AM CDT Impressions 09/03/2023 1:33 AM CDT IMPRESSION: 1. ??Mild echogenic partially shadowing plaque in the left carotid bulb without significant stenosis. 2. ??No other significant plaque or stenosis in the imaged bilateral common and cervical internal carotid arteries. 3. ??Antegrade flow in both vertebral arteries. Referred By: LASHAUN PHAM Interpreted By: Stephanie Mock MD, 09/03/2023 1:29 AM Narrative 09/03/2023 1:33 AM CDT EXAMINATION: US CAROTID DUPLEX ANTHONY INDICATION: Dizziness. COMPARISON: None TECHNIQUE: Duplex Doppler ultrasonography of the carotid arteries, with grayscale, color-flow, and spectral analysis. FINDINGS: There is very mild echogenic partially shadowing plaque posteriorly in the left carotid bulb with no significant stenosis. ??No other significant plaque or stenosis in either the right or left common or internal carotid arteries. Antegrade flow is seen in both vertebral arteries. The right ICA peak systolic velocity measures 64.1 cm/sec, right CCA has a peak systolic velocity of 83.1 cm/sec, with the right ICA/CCA ratio of 0.77. The left ICA peak systolic velocity measures 63.4 cm/sec, left CCA peak systolic velocity measures 109.8 cm/sec, with the left ICA/CCA ratio of 0.58. Findings are consistent with less than 50% stenosis. Procedure Note Stephanie Mock MD - 09/03/2023 EXAMINATION: US CAROTID DUPLEX ANTHONY INDICATION: Dizziness. COMPARISON: None TECHNIQUE: Duplex Doppler ultrasonography of the carotid arteries, withgrayscale, color-flow, and spectral analysis. FINDINGS: There is very mild echogenic partially shadowing plaque posteriorly in theleft carotid bulb with no significant stenosis. No other significantplaque or stenosis in either the right or left common or internal carotidarteries. Antegrade flow is seen in both vertebral arteries. The right ICA peak systolic velocity measures 64.1 cm/sec, right CCA has apeak systolic velocity of 83.1 cm/sec, with the right ICA/CCA ratio of0.77. The left ICA peak systolic velocity measures 63.4 cm/sec, left CCApeak systolic velocity measures 109.8 cm/sec, with the left ICA/CCA ratioof 0.58. Findings are consistent with less than 50% stenosis. IMPRESSION: 1. Mild echogenic partially shadowing plaque in the left carotid bulbwithout significant stenosis. 2. No other significant plaque or stenosis in the imaged bilateral commonand cervical internal carotid arteries. 3. Antegrade flow in both vertebral arteries. Referred By: LASHAUN PHAM Interpreted By: Stephanie Mock MD, 09/03/2023 1:29 AM us Denise De La O MD ULTRASOUND Final Res ult * (ABNORMAL) HEMOGLOBIN, GLYCOSYLATED (09/02/2023 2:49 AM CDT) HGB A1C 7.4(H) <5.7 % 09/02/2023 3:34 PM CDT [facility] ESTIMATED AVG GLUCOSE 166(H) 74 - 114 MG/DL 09/02/2023 3:34 PM CDT [facility] 09/02/2023 2:49 AM CDT Troy Pagan MD LABORATORY Final Res ult Performing Organization Address City/[facility] Co de Phone Number [facility] [address] [place] [address], [phone] * MAGNESIUM (09/02/2023 2:49 AM CDT) MAGNESIUM 2.0 1.6 - 2.6 MG/DL 09/02/2023 3:53 AM CDT [facility] 09/02/2023 2:49 AM CDT Denise De La O MD LABORATORY Final Res ult Performing Organization Address [facility] Co de Phone Number [facility] [address] [place] [address], [phone] * (ABNORMAL) BASIC METABOLIC PANEL (09/02/2023 2:49 AM CDT) SODIUM S/P/B 137 136 - 145 MMOL/L 09/02/2023 3:53 AM CDT [facility] POTASSIUM S/P/B 3.1(L) 3.5 - 5.1 MMOL/L 09/02/2023 3:53 AM CDT [facility] CHLORIDE S/P/B 99 98 - 107 MMOL/L 09/02/2023 3:53 AM CDT [facility] CO2 29.0 21.0 - 32.0 MMOL/L 09/02/2023 3:53 AM CDT [facility] GLUCOSE 225(H) 74 - 106 MG/DL 09/02/2023 3:53 AM CDT [facility] BUN 36(H) 7 - 18 MG/DL 09/02/2023 3:53 AM CDT [facility] CREATININE S/P/B 4.19(H) 0.70 - 1.30 MG/DL 09/02/2023 3:53 AM CDT [facility] CALCIUM S/P/B 9.4 8.5 - 10.1 MG/DL 09/02/2023 3:53 AM CDT [facility] ANION GAP 9.0 5.0 - 15.0 MMOL/L 09/02/2023 3:53 AM CDT [facility] OSMOLALITY (CALC) 299 MOSM/KG 024 3:53 AM T [facility] Comment:REFERENCE RANGE NOT ESTABLISHED GFR ESTIMATE 16(L) >90 ML/MIN/1. 73 M2 09/02/2023 3:53 AM CDT [facility] GFR NOTES GFR REFERENCE S: 09/02/2023 3:53 AM CDT [facility] Comment: THE ESTIMATED GFR IS [...] ml/min/1.73 m2 G5,KIDNEY FAILURE: <15 ml/min/1.73 m2 09/02/2023 2:49 AM CDT us Denise De La O MD LABORATORY Final Res ult [facility] [address] [place] [id number], [id number] * (ABNORMAL) CBC W/DIFF AUTOMATED (09/02/2023 2:49 AM CDT) [facility] WBC 7.68 4.00 - 10.80 x10'3/uL 09/02/2023 3:13 AM CDT [facility] RBC 3.55(L) 4.50 - 6.10 x10'6/uL 09/02/2023 3:13 AM CDT [facility] HGB 11.6(L) 13.0 - 18.0 G/DL 09/02/2023 3:13 AM CDT [facility] HCT 35.4(L) 37.0 - 52.0 % 09/02/2023 3:13 AM CDT [facility] MCV 99.7 78.0 - 100.0 FL 09/02/2023 3:13 AM CDT [facility] MCH 32.7(H) 27.0 - 31.0 PG 09/02/2023 3:13 AM CDT [facility] MCHC 32.8(L) 33.0 - 36.0 G/DL 09/02/2023 3:13 AM CDT [facility] RDW 14.3 11.5 - 14.5 % 09/02/2023 3:13 AM CDT [facility] PLT 253 150 - 350 x10'3/uL 09/02/2023 3:13 AM CDT [facility] MPV 9.8 7.4 - 10.4 FL 09/02/2023 3:13 AM CDT [facility] ABS. NEUTROPHILS 4.78 1.60 - 8.30 x10'3/uL 09/02/2023 3:13 AM CDT [facility] ABS. LYMPHOCYTES 1.84 0.80 - 4.70 x10'3/uL 09/02/2023 3:13 AM CDT [facility] ABS. MONOCYTES 0.51 0.00 - 1.50 x10'3/uL 09/02/2023 3:13 AM CDT [facility] ABS. EOSINOPHILS 0.42(H) 0.00 - 0.40 x10'3/uL 09/02/2023 3:13 AM CDT [facility] ABS. BASOPHILS 0.07 0.00 - 0.20 x10'3/uL 09/02/2023 3:13 AM CDT [facility] ABS. IMMATURE GRANULOCYTES 0.06(H) 0.00 - 0.03 x10'3/uL 09/02/2023 3:13 AM CDT [facility] ABS. NUCLEATED RBC'S 0.00 0.0 x10'3/uL 09/02/2023 3:13 AM CDT [facility] 09/02/2023 2:49 AM CDT Denise De La O MD LABORATORY Final Res ult Performing Organization Address [facility] Co de Phone Number [facility] [address] [place] [address], [phone] * MAGNESIUM (09/02/2023 12:30 AM CDT) MAGNESIUM 1.9 1.6 - 2.6 MG/DL 09/02/2023 1:06 AM CDT [facility] 09/02/2023 12:3 0 AM CDT Denise De La O MD LABORATORY Final Res ult Performing Organization Address City/[facility]/ZIP Co de Phone Number [facility] [address] [place] [address], [phone] * (ABNORMAL) BASIC METABOLIC PANEL (09/02/2023 12:30 AM CDT) SODIUM S/P/B 138 136 - 145 MMOL/L 09/02/2023 1:20 AM T [facility] POTASSIUM S/P/B 2.9(LL) 3.5 - 5.1 MMOL/L 09/02/2023 1:20 AM T [facility] Comment: Critical Result(s) Called to and read back by: CABRERA TONEY ?? at: 01:21:01 ?? 09/02/2023 by JAVIER. CHLORIDE S/P/B 96(L) 98 - 107 MMOL/L 09/02/2023 1:20 AM T [facility] CO2 32.5(H) 21.0 - 32.0 MMOL/L 09/02/2023 1:20 AM T [facility] GLUCOSE 247(H) 74 - 106 MG/DL 09/02/2023 1:20 AM T [facility] BUN 35(H) 7 - 18 MG/DL 09/02/2023 1:20 AM T [facility] CREATININE S/P/B 4.01(H) 0.70 - 1.30 MG/DL 09/02/2023 1:20 AM T [facility] CALCIUM S/P/B 9.3 8.5 - 10.1 MG/DL 09/02/2023 1:20 AM [facility] ANION GAP 9.5 5.0 - 15.0 MMOL/L 09/02/2023 1:20 AM T [facility] OSMOLALITY (CALC) 302 MOSM/KG 024 1:20 AM T [facility] Comment:REFERENCE RANGE NOT ESTABLISHED GFR ESTIMATE 17(L) >90 ML/MIN/1. 73 M2 09/02/2023 1:20 AM T [facility] GFR NOTES GFR REFERENCE S: 09/02/2023 1:20 AM T [facility] Comment: THE ESTIMATED GFR IS [...] ml/min/1.73 m2 G5,KIDNEY FAILURE: <15 ml/min/1.73 m2 09/02/2023 12:3 0 AM CDT us Denise De La O MD LABORATORY Final Res ult [facility] [address] [place] [address], [phone] * ECG 12 lead (09/01/2023 10:38 PM CDT) 09/01/2023 10:3 8 PM CDT Narrative [facility] - 09/02/2023 7:14 AM CDT ? [facility] ?[address] [place], [place] ??[address] ? Test Date: ?2023-09-01 Pat Name: ? VINAY WILBURN ?Department: ?? 1 ? Room: ? 738AA Gender: ? Male ? 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 [place] : ?1970 ? Requested By: DENISE JAIRON Order Number: [id number] ? Reading : ?? Gonzalo Pardo ? Measurements Intervals ?[place] ? Rate: ? 58 ? P: ?46 [place]: ? 199 ?QRS: ?-4 QRSD: ? 106 ?T: ?17 QT: ? 445 ? QTc: ?441 ? 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: [place] : 1970 Requested By: DENISE DE LA O Order Number: [id number] Reading MD: Gonzalo Pardo Measurements Intervals [place] Rate: 58 P: 46 [place]: 199 QRS: -4 QRSD: 106 T: 17 QT: 445 QTc: 441 Interpretive Statements SINUS BRADYCARDIA POSSIBLE LEFT ATRIAL ENLARGEMENT [-0.1mV P-WAVE IN V1/V2] NONSPECIFIC T-WAVE ABNORMALITY Denise De La O MD ECG ORDERABLES Final Res ult Performing Organization Address [facility] de Phone Number [facility] * (ABNORMAL) POCT glucose (09/01/2023 10:23 PM CDT) [facility] GLUCOSE POC 255(H) 70 - 109 09/01/2023 10:28 PM CDT [facility] 09/01/2023 10:2 3 PM CDT Denise De La O MD POCT ORDERABLES - DEVICE Final Result Performing Organization Address [facility] de Phone Number [facility] [address] [place] [address], [phone] documented in this encounter Visit Diagnoses Diagnosis Hypokalemia- Primary Hypopotassemia Hypokalemia Hypopotassemia EKG, abnormal Nonspecific abnormal electrocardiogram (ECG) (EKG) documented in this encounter Admitting Diagnoses Diagnosis Hypokalemia Hypopotassemia EKG, abnormal Nonspecific abnormal electrocardiogram (ECG) (EKG) documented in this encounter Administered Medications Inactive Administered Medications - up to 3 most recent administrations Medication Order MAR Action Action Date Dose Rate Site acetaminophen (TYLENOL) tablet 650 mg 650 mg, Oral, Every 4 hours PRN, Mild pain (Scale 1 - 3), Starting on Thu09/01/23 at 2223, Until Thu09/04/23 at 2042, Maximum dose of acetaminophen is 4000 mg from all sources in 24 hours. albuterol sulfate HFA 108 (90 Base) MCG/ACT inhaler 2 puff 2 puff, Inhalation, Every 4 hours PRN, Wheezing, Shortness of breath, Starting on Thu09/01/23 at 2223, Until Thu09/04/23 at 2042 allopurinol (ZYLOPRIM) tablet 100 mg 100 mg, Oral, 2 times daily, First dose on Thu09/01/23 at 2245, Until Discontinued Given 09/04/2023 8:14 AM CDT 100 mg Given 09/03/2023 8:39 PM CDT 100 mg Given 09/03/2023 8:40 AM CDT 100 mg amiodarone (PACERONE) tablet 200 mg 200 mg, Oral, Daily, First dose on Thu09/02/23 at 0900, Until Discontinued Given 09/04/2023 8:13 AM CDT 200 mg Given 09/03/2023 2:16 PM CDT 200 mg Given 09/02/2023 8:58 AM CDT 200 mg apixaban (ELIQUIS) tablet 5 mg 5 mg, Oral, 2 times daily, Indications: Atrial Fibrillation, First dose on Thu09/01/23 at 2245, Until DiscontinuedIndications:Atrial Fibrillation Given 09/04/2023 8:13 AM CDT 5 mg Given 09/03/2023 8:37 PM CDT 5 mg Given 09/03/2023 8:39 AM CDT 5 mg atorvastatin (LIPITOR) tablet 20 mg 20 mg, Oral, Nightly at bedtime, First dose (after last modification) on Thu09/02/23 at 2100, Until Discontinued Given 09/03/2023 8:36 PM CDT 20 mg Given 09/02/2023 10:29 PM CDT 20 mg calcitriol (ROCALTROL) capsule 0.25 mcg 0.25 mcg, Oral, User specified (Once per day on Thu Sat), First dose on Thu09/03/23 at 0900, Until Discontinued, T--SAT Given 09/03/2023 1:50 PM CDT 0.25 mcg carvedilol (COREG) tablet 12.5 mg 12.5 mg, Oral, 2 times daily, First dose on Thu09/02/23 at 0900, Until Discontinued, Hold if HR <60 Take with meal or snack Given 09/04/2023 8:14 AM CDT 12.5 mg Given 09/03/2023 8:39 PM CDT 12.5 mg Given 09/02/2023 8:58 AM CDT 12.5 mg dextrose (GLUTOSE) 40 % oral gel 37.5-75 g 37.5-75 g (15-30 g of dextrose), Oral, As needed, Low blood sugar, Starting on Thu09/01/23 at 2227, Until Thu09/04/23 at 2042, If patient is verbally responsive and taking thickened liquids or oral medications: Blood glucose less than 50 mg/dL - give 30 g of dextrose; repeat until blood glucose reaches 70 mg/dL Blood glucose 50-69 mg/dL - give 15 g of dextrose; repeat until blood glucose reaches 70 mg/dL 37.5 g of glucose gel = 15 g of dextrose dextrose 10 % bolus infusion 125-250 mL 125-250 mL, Intravenous, Administer over 15 Minutes, As needed, Low Blood Sugar, Starting on Thu09/01/23 at 2227, Until Thu09/04/23 at 2042, If patient is verbally responsive and NPO or unable to swallow: Blood glucose less than 50 mg/dL - give 250 mL (25 g) and repeat until blood glucose reaches 70 mg/dL Blood glucose 50-69 mg/dL - give 125 mL (12.5 g) and repeat until blood glucose reaches 70 mg/dL If patient is verbally Unresponsive and NPO or unable to swallow: Blood glucose less than 70 mg/dL - give 250 mL (25 g), repeat until blood glucose reaches 70 mg/dL ferric gluconate (FERRLECIT/NULECIT) injection 125 mg 125 mg, Intravenous, Once, 1 dose, On Cheryl 09/03/23 at 1315, If giving undiluted administer slowly at a rate up to 12.5 mg/minute in dialysis Given 09/03/2023 6:58 PM CDT 125 mg gabapentin (NEURONTIN) capsule 100 mg 100 mg, Oral, 2 times daily, First dose on Thu09/01/23 at 2245, Until Discontinued Given 09/04/2023 8:14 AM CDT 100 mg Given 09/03/2023 8:36 PM CDT 100 mg Given 09/03/2023 8:39 AM CDT 100 mg glucagon injection 1 mg 1 mg, Intramuscular, Once as needed, Other, Low blood sugar, 1 dose, Starting on Thu09/01/23 at 2227, Until Thu09/04/23 at 2042, If patient is verbally UNresponsive and no IV access with blood glucose less than 70 mg/dL. Do NOT repeat administration. HYDROcodone-acetaminophen (NORCO) 5-325 MG tablet 1 tablet 1 tablet, Oral, Every 4 hours PRN, Moderate pain (Scale 4 - 7), Starting on Thu09/01/23 at 2223, Until Thu09/04/23 at 2042, Maximum dose of acetaminophen is 4000 mg from all sources in 24 hours. Given 09/02/2023 8:57 AM CDT 1 tablet insulin glargine (LANTUS) injection 10 Units 10 Units, Subcutaneous, Nightly at bedtime, First dose on Thu09/01/23 at 2245, Until Discontinued Given 09/03/2023 8:41 PM CDT 10 Units Right Arm Given 09/02/2023 10:26 PM CDT 10 Units R ight Lower Abdomen Given 09/02/2023 12:10 AM CDT 10 Units L eft Arm insulin lispro (HUMALOG) injection 0-12 Units 0-12 Units, Subcutaneous, 4 times daily before meals and nightly, First dose on Thu09/01/23 at 2245, Until Discontinued, From sliding scale insulin subcut med order set - For TDI 60 - 89 units Blood Glucose: (Less than 70: Initiate Hypoglycemia Standing Orders) (70 - 149, administer 0 units) (150 - 199, administer 3 units) (200 - 249, administer 5 units) (250 - 299, administer 7 units) (300 - 349, administer 10 units) (Greater than 349, administer 12 units and Call Physician) Given 09/04/2023 11:52 AM CDT 3 Units R ight Arm Given 09/04/2023 7:50 AM CDT 3 Units Ri ght Arm Given 09/03/2023 9:26 PM CDT 3 Units Ri ght Lower Abdomen midodrine (PROAMATINE) tablet 10 mg 10 mg, Oral, 3 times daily, First dose on Thu09/02/23 at 0900, Until Discontinued, Hold if BP >110 Given 09/03/2023 9:30 PM CDT 10 mg Given 09/03/2023 5:56 PM CDT 10 mg Given 09/03/2023 8:39 AM CDT 10 mg ondansetron (ZOFRAN) injection 4 mg 4 mg, Intravenous, Every 8 hours PRN, Nausea, Vomiting, Starting on Thu09/01/23 at 2223, Until Thu09/04/23 at 204, IV push over 2-5 minutes. pantoprazole EC (PROTONIX) tablet 40 mg 40 mg, Oral, Daily, First dose on Thu09/02/23 at 0900, Until Discontinued, Do not break, chew, or crush. Given 09/04/2023 8:14 AM CDT 40 mg Given 09/03/2023 8:40 AM CDT 40 mg Given 09/02/2023 8:57 AM CDT 40 mg perflutren lipid microsphere (DEFINITY) injection 1 mL 1 mL, Intravenous, IMG once as needed, Contrast, 1 dose, Starting on Thu09/02/23 at 1019, Until Thu09/02/23 at 1020, Administer over 30-60 seconds. Follow with 10 mL saline flush. Given 09/02/2023 10:20 AM CDT 1 mL polyethylene glycol (GLYCOLAX) packet 17 g 17 g, Oral, Daily as needed, Constipation, Starting on Thu09/01/23 at 2223, Until Thu09/04/23 at 204, If both senna and polyethylene glycol are ordered, use 1st; if no response by next dosing interval, go to next option. potassium chloride (KLOR-CON) packet 1 packet 1 packet (20 mEq), Oral, Once, 1 dose, On Thu09/02/23 at 0145, Dissolve powder in 240 mL water Given 09/02/2023 2:00 AM CDT 1 packet potassium chloride (KLOR-CON) packet 1 packet 1 packet (20 mEq), Oral, Once, 1 dose, On Thu09/02/23 at 0715, Dissolve powder in 240 mL water Given 09/02/2023 8:57 AM CDT 1 packet potassium chloride 40 mEq in NS 500 mL IVPB 40 mEq, Intravenous, Administer over 240 Minutes, Once, 1 dose, On Thu09/02/23 at 0200, MAX rate in peripheral line of 10 mEq per hour. New Bag 09/02/2023 2:00 AM CDT 40 mEq 125 mL/hr potassium chloride CR (KLOR-CON M) tablet 40 mEq 40 mEq, Oral, Once, 1 dose, On Thu09/03/23 at 1200, Do not chew, crush, or suck on tablet. May break in half. May dissolve whole tablet in 120 mL of water and drink immediately. Given 09/03/2023 1:50 PM CDT 40 mEq potassium chloride CR (KLOR-CON M) tablet 40 mEq 40 mEq, Oral, Once, 1 dose, On Thu09/04/23 at 0930, Do not chew, crush, or suck on tablet. May break in half. May dissolve whole tablet in 120 mL of water and drink immediately. Given 09/04/2023 11:30 AM CDT 40 mEq vitamin D3 (cholecalciferol) tablet 2,000 Units 2,000 Units, Oral, Daily, First dose on Thu09/02/23 at 0900, Until Discontinued Given 09/04/2023 8:13 AM CDT 2,000 Units Given 09/03/2023 8:40 AM CDT 2,000 Units documented in this encounter Active and Recently Administered Medications Times are shown in CDT. Scheduled Medication Order 09/02/2023 09/03/2023 09/04/2023 allopurinol (ZYLOPRIM) tablet 100 mg 100 mg, Oral, 2 times daily, First dose on Thu09/01/23 at 2245, Until Discontinued 0010 (Given - Provider: Kelly Obrien RN)0857 (Given - Provider: Lauren Courtney RN)222 (Given - Provider: Asya Hui LPN) 0840 (Given - Provider: Omaira Gordon RN)203 (Given - Provider: Asya Hui LPN) 0814 (Given - Provider: Lisa Mcrae RN) amiodarone (PACERONE) tablet 200 mg 200 mg, Oral, Daily, First dose on Thu09/02/23 at 0900, Until Discontinued 0858 (Given - Provider: Lauren Courtney RN) 1416 (Given - Provider: Omaira Gordon RN) 0813 (Given - Provider: Lisa Mcrae RN) apixaban (ELIQUIS) tablet 5 mg 5 mg, Oral, 2 times daily, Indications: Atrial Fibrillation, First dose on Thu09/01/23 at 2245, Until Discontinued 0000 (Given - Provider: Kelly Obrien RN)0858 (Given - Provider: Lauren Courtney RN)2229 (Given - Provider: Asya Hui LPN) 0839 (Given - Provider: Omaira Gordon RN)2036 (Given - Provider: Asya Hui LPN) 0813 (Given - Provider: Lisa Mcrae RN) atorvastatin (LIPITOR) tablet 20 mg 20 mg, Oral, Nightly at bedtime, First dose (after last modification) on Thu09/02/23 at 2100, Until Discontinued 2228 (Given - Provider: Asya Hui LPN) 2035 (Given - Provider: Asya Hui LPN) calcitriol (ROCALTROL) capsule 0.25 mcg 0.25 mcg, Oral, User specified (Once per day on Thu Sat), First dose on Thu09/03/23 at 0900, Until Discontinued, T--SAT 1350 (Given - Provider: Omaira Gordon RN) carvedilol (COREG) tablet 12.5 mg 12.5 mg, Oral, 2 times daily, First dose on Thu09/02/23 at 0900, Until Discontinued, Hold if HR <60 Take with meal or snack 0858 (Given - Provider: Lauren Courtney RN)2228 (Not Given - Provider: Asya Hui LPN - Reason: Order parameters not met - Comment: HR 58) 0840 (Not Given - Provider: Omaira Gordon RN - Reason: Other - Comment: held for dialysis)2038 (Given - Provider: Asya Hui LPN) 0814 (Given - Provider: Lisa Mcrae RN) ferric gluconate (FERRLECIT/NULECIT) injection 125 mg (COMPLETED) 125 mg, Intravenous, Once, 1 dose, On Thu09/03/23 at 1315, If giving undiluted administer slowly at a rate up to 12.5 mg/minute in dialysis 1858 (Given - Provider: Omaira Gordon RN) gabapentin (NEURONTIN) capsule 100 mg 100 mg, Oral, 2 times daily, First dose on Thu09/01/23 at 2245, Until Discontinued 9 (Given - Provider: Kelly Obrien RN)0858 (Given - Provider: Lauren Courtney RN)2228 (Given - Provider: Asya Hui LPN) 0839 (Given - Provider: Omaira Gordon RN)2035 (Given - Provider: Asya Hui LPN) 0814 (Given - Provider: Lisa Mcrae RN) insulin glargine (LANTUS) injection 10 Units 10 Units, Subcutaneous, Nightly at bedtime, First dose on Thu09/01/23 at 2245, Until Discontinued 9 (Given - Provider: Kelly Obrien RN)2225 (Given - Provider: Asya Hui LPN) 2040 (Given - Provider: Asya Hui LPN - Comment: BS 158) insulin lispro (HUMALOG) injection 0-12 Units 0-12 Units, Subcutaneous, 4 times daily before meals and nightly, First dose on Thu09/01/23 at 2245, Until Discontinued, From sliding scale insulin subcut med order set - For TDI 60 - 89 units Blood Glucose: (Less than 70: Initiate Hypoglycemia Standing Orders) (70 - 149, administer 0 units) (150 - 199, administer 3 units) (200 - 249, administer 5 units) (250 - 299, administer 7 units) (300 - 349, administer 10 units) (Greater than 349, administer 12 units and Call Physician) 0010 (Given - Provider: Kelly Obrien RN - Comment: pt [phone] (Not Given - Provider: Kelly Obrien RN - Reason: Provider Order - Comment: pt [phone] (Given - Provider: Lauren Courtney RN)1711 (Given - Provider: Precious Merino LPN)222 (Given - Provider: Asya Hui LPN) 0840 (Given - Provider: Omaira Gordon RN)1416 (Given - Provider: Omaira Gordon RN)1805 (Given - Provider: Omaira Gordon RN)2126 (Given - Provider: Asya Hui LPN) 0750 (Given - Provider: Chriss Chauhan RN)1152 (Given - Provider: Lisa Mcrae RN)1600 (Canceled Entry - Provider: Automatic Discharge Provider - Comment: Automatically canceled at discontinue of medication order) midodrine (PROAMATINE) tablet 10 mg 10 mg, Oral, 3 times daily, First dose on Thu09/02/23 at 0900, Until Discontinued, Hold if BP >110 0857 (Given - Provider: Lauren Courtney RN)1731 (Not Given - Provider: Precious Merino LPN - Reason: Order parameters not met)2230 (Given - Provider: Asya Hui LPN - Comment: BP 131/57) 0839 (Given - Provider: Omaira Gordon RN)1756 (Given - Provider: Omaira Gordon RN)2130 (Given - Provider: Asya Hui LPN) 0757 (Not Given - Provider: Lisa Mcrae RN - Reason: Contraindicated - Comment: bp 141/60)1608 (Not Given - Provider: Lisa Mcrae RN - Reason: Contraindicated - Comment: bp 148/60) pantoprazole EC (PROTONIX) tablet 40 mg 40 mg, Oral, Daily, First dose on Thu09/02/23 at 0900, Until Discontinued, Do not break, chew, or crush. 0857 (Given - Provider: Lauren Coutrney RN) 0840 (Given - Provider: Omaira Gordon RN) 0814 (Given - Provider: Lisa Mcrae RN) potassium chloride (KLOR-CON) packet 1 packet (COMPLETED) 1 packet (20 mEq), Oral, Once, 1 dose, On Thu09/02/23 at 0145, Dissolve powder in 240 mL water 0200 (Given - Provider: Kelly Obrien RN) potassium chloride (KLOR-CON) packet 1 packet (COMPLETED) 1 packet (20 mEq), Oral, Once, 1 dose, On Thu09/02/23 at 0715, Dissolve powder in 240 mL water 0857 (Given - Provider: Lauren Courtney RN) potassium chloride 40 mEq in NS 500 mL IVPB (COMPLETED) 40 mEq, Intravenous, Administer over 240 Minutes, Once, 1 dose, On Thu09/02/23 at 0200, MAX rate in peripheral line of 10 mEq per hour. 0200 (New Bag - Provider: Kelly Obrien, CABRERA)0545 (Infusion Stop Time - Provider: Kelly Obrien RN) potassium chloride CR (KLOR-CON M) tablet 40 mEq (COMPLETED) 40 mEq, Oral, Once, 1 dose, On Cheryl 09/03/23 at 1200, Do not chew, crush, or suck on tablet. May break in half. May dissolve whole tablet in 120 mL of water and drink immediately. 1350 (Given - Provider: Omaira Gordon RN) potassium chloride CR (KLOR-CON M) tablet 40 mEq (COMPLETED) 40 mEq, Oral, Once, 1 dose, On Thu09/04/23 at 0930, Do not chew, crush, or suck on tablet. May break in half. May dissolve whole tablet in 120 mL of water and drink immediately. 1130 (Given - Provid er: Lisa Mcrae RN) Senna (SENOKOT) 8.6 MG tablet 8.6 mg 8.6 mg (1 tablet), Oral, Daily, First dose on Thu09/02/23 at 0900, Until Discontinued 0839 (Not Given - Provider: Lauren Courtney RN - Reason: Contraindicated) 0841 (Not Given - Provider: Omaira Gordon RN - Reason: Patient/family declined - Comment: loose stools) 0815 (Not Given - Provider: Lisa Mcrae RN - Reason: Other - Comment: pt having loose stools) vitamin D3 (cholecalciferol) tablet 2,000 Units 2,000 Units, Oral, Daily, First dose on Thu09/02/23 at 0900, Until Discontinued 0859 (Not Given - Provider: Lauren Courtney RN - Reason: Patient/family declined) 0840 (Given - Provider: Omaira Gordon RN) 0813 (Given - Provider: Lisa Mcrae RN) PRN Medication Order 09/02/2023 09/03/2023 09/04/2023 acetaminophen (TYLENOL) tablet 650 mg 650 mg, Oral, Every 4 hours PRN, Mild pain (Scale 1 - 3), Starting on Thu09/01/23 at 2222, Until Thu09/04/23 at 2042, Maximum dose of acetaminophen is 4000 mg from all sources in 24 hours. albuterol sulfate HFA 108 (90 Base) MCG/ACT inhaler 2 puff 2 puff, Inhalation, Every 4 hours PRN, Wheezing, Shortness of breath, Starting on Thu09/01/23 at 2222, Until Thu09/04/23 at 2042 dextrose (GLUTOSE) 40 % oral gel 37.5-75 g 37.5-75 g (15-30 g of dextrose), Oral, As needed, Low blood sugar, Starting on Thu09/01/23 at 2226, Until Thu09/04/23 at 2042, If patient is verbally responsive and taking thickened liquids or oral medications: Blood glucose less than 50 mg/dL - give 30 g of dextrose; repeat until blood glucose reaches 70 mg/dL Blood glucose 50-69 mg/dL - give 15 g of dextrose; repeat until blood glucose reaches 70 mg/dL 37.5 g of glucose gel = 15 g of dextrose dextrose 10 % bolus infusion 125-250 mL 125-250 mL, Intravenous, Administer over 15 Minutes, As needed, Low Blood Sugar, Starting on Thu09/01/23 at 2226, Until Thu09/04/23 at 2042, If patient is verbally responsive and NPO or unable to swallow: Blood glucose less than 50 mg/dL - give 250 mL (25 g) and repeat until blood glucose reaches 70 mg/dL Blood glucose 50-69 mg/dL - give 125 mL (12.5 g) and repeat until blood glucose reaches 70 mg/dL If patient is verbally Unresponsive and NPO or unable to swallow: Blood glucose less than 70 mg/dL - give 250 mL (25 g), repeat until blood glucose reaches 70 mg/dL glucagon injection 1 mg 1 mg, Intramuscular, Once as needed, Other, Low blood sugar, 1 dose, Starting on Thu09/01/23 at 2226, Until Thu09/04/23 at 2042, If patient is verbally UNresponsive and no IV access with blood glucose less than 70 mg/dL. Do NOT repeat administration. HYDROcodone-acetaminophen (NORCO) 5-325 MG tablet 1 tablet 1 tablet, Oral, Every 4 hours PRN, Moderate pain (Scale 4 - 7), Starting on Thu09/01/23 at 2223, Until Thu09/04/23 at 2042, Maximum dose of acetaminophen is 4000 mg from all sources in 24 hours. 0857 (Given - Provider: Lauren Courtney, RN) ondansetron (ZOFRAN) injection 4 mg 4 mg, Intravenous, Every 8 hours PRN, Nausea, Vomiting, Starting on Thu09/01/23 at 2223, Until Thu09/04/23 at 2042, IV push over 2-5 minutes. perflutren lipid microsphere (DEFINITY) injection 1 mL (COMPLETED) 1 mL, Intravenous, IMG once as needed, Contrast, 1 dose, Starting on Thu09/02/23 at 1019, Until Thu09/02/23 at 1020, Administer over 30-60 seconds. Follow with 10 mL saline flush. 1020 (Given - Provider: Kiana Lyle) polyethylene glycol (GLYCOLAX) packet 17 g 17 g, Oral, Daily as needed, Constipation, Starting on Thu09/01/23 at 2223, Until Thu09/04/23 at 2042, If both senna and polyethylene glycol are ordered, use 1st; if no response by next dosing interval, go to next option. documented in this encounter Care Teams Avionics Electronics Technician Relationship Specialty Start Date End Date Mery Maxwell MD [address] [place] [phone] PCP - General [facility] 08/19/23 documented as of this encounter
--- OUTSIDE RECORDS SUMMARY | 2024-06-22 18:07 | XMS_ITS | Patient Health Record ---
Author Organization [facility] Billing Info Address [address] [place] [address] [place] [address] Care Team Providers Care Major Gifts Manager Name Role Phone [facility] Primary Care Provider Unavailable Allergies Allergen (clinical drug ingredient) Drug/Non Drug Allergy documented on EMR Reaction Allergy Type Onset Date Status amoxicillin Amoxicillin rash/hives Drug Allergy Ac tive Reason For Referral No Information Medications Medication SIG (Take, Route, Frequency, Duration) Notes Start Date End Date Status Rivaroxaban 15 MG 1 tablet with food Orally Once a day for 30 day(s) Active Humalog 100 UNIT/ML 50 units Subcutaneou s Three times a day Active Coreg 25 MG 1 tablet with food Orally Twice a day Active Metolazone 5 MG 1 tablet Orally Once a day for 30 day(s) Active Amiodarone HCl 400 MG 1 tablet Orally Twice daily for 14 days 12/31/2021 Active Lantus 100 UNIT/ML 100 units Subcutaneous Once a day Active Losartan Potassium 50 MG 1 tablet Orally Once a day for 30 day(s) 11/05/2020 Active Gabapentin 250 MG/5ML 2 ml Orally Once a day for 30 day(s) Active Iron 325 (65 Fe) MG 1 tablet Orally Once a day Active Amiodarone HCl 400 MG 1 tablet Orally Once a day for 30 days 12/31/2021 Active Diltiazem HCl 125 MG/25ML as directed Intravenous Active Isosorbide Mononitrate ER 60 MG 1 tablet in the morning Orally Once a day for 90 Active Insulin Syringes (Disposable) U-100 1 ML as directed Subcutaneously Four times a day 07/17/2017 Active Atorvastatin Calcium 20 MG 1 tablet Orally Once a day for 30 day(s) PT IS OVERDUE FOR FOLLOW UP VISIT - NO ADDITIONAL REFILLS UNTIL SEEIN IN OFFICE Active HydrALAZINE HCl 100 MG 1/2 tablet Orally Twice a day Verbal order per provider, read back & confirmed Active Protonix 40 MG 1 tablet Orally Twic e a day for 37 days 01/02/2022 Active Immunizations Vaccine Route Administration Date Status Comme nts FLU (Past vaccine of unknown type) Unknown 03/30/2016 A dministered FLU (Past vaccine of unknown type) Unknown 09/16/2016 A dministered FLU (Past vaccine of unknown type) Unknown 03/16/2018 A dministered FLU (Past vaccine of unknown type) Unknown 04/15/2019 A dministered Social History Tobacco Use: Social History Observation Description Date Details (start date - stop date) Former Smoker NA - NA Tobacco Status: Question Answer Notes Patient is a former smoker Problems Problem Type SNOMED Code ICD Code Onset Dates Problem Status W/U Status Risk Notes Problem 420752998 Persistent atria l fibrillation (I48.1) Active confirmed Problem 718405783 Chronic atrial fibrillation (I48.2) Active confirmed Problem Chronic diastolic heart failure (105224178) Chronic diastolic (congestive) heart failure (I50.32) Active confirmed Problem 959891804 Erectile dysfunction due to diseases classified elsewhere (N52.1) Active confirmed Problem 449221772 Permanent atrial fibrillation (I48.21) Active confirmed Problem 32786033 Essential hypertension (I10) Active confirmed Problem 25076765 ADRYAN (obstructive sleep apnea) (G47.33) Active confirmed Problem 48052409 JOHANSEN (dyspnea on exertion) (R06.09) Active confirmed Problem 509984704 Obesity (BMI 30-39.9) (E66.9) Active confirmed Problem 433542515 Paroxysmal a-fib (I48.0) Active confirmed Problem 738237435 BMI 37.0-37.9, adult (Z68.37) Active confirmed Problem 007762855 Acute renal insufficiency (N28.9) Active confirmed Problem 4377072645165 CAD in [place] artery (I25.10) Active confirmed Problem 682050969 [facility] curren t use of insulin (Z79.4) Active confirmed Problem 6380801762351 Coronary artery disease involving [place] coronary artery of [place] heart without angina pectoris (I25.10) Active confirmed Problem 29743054 Anemia of unknow n etiology (D64.9) Active confirmed Problem 94867512 Hyperlipidemia, unspecified hyperlipidemia type (E78.5) Active confirmed Problem Chronic diastolic heart failure (415919444) Chronic diastolic congestive heart failure (I50.32) Active confirmed Problem 009166519 Edema, unspecified type (R60.9) Active confirmed Problem 00434137 Type 2 diabetes mellitus with complication, with long-term current use of insulin (E11.8) Active confirmed Plan Of Treatment Pending Test Test Name Order Date CARDIOVERSION (29465) CV* 12/31/2021 EPS - ABLATION, A-FIB (95766, 90465) CV* 12/31/2021 IMPLANT - LOOP RECORDER (23965) CV* 12/13 DOMI (39950) CV* 12/31/2021 DOMI (05188) CV* 01/02/2022 Insurance Providers Payer Name Payer Address Payer Phone Subscriber Number Group Number Insured Name Patient Relationship to Insured Coverage Start Date Coverage End Date [facility] [address] ATTN CLAIMS [place], [place] [id number] Aaron Campos Self - patient is the insured 2 Medical (General) History Medical History History ICD Code Chronic atrial fibrillation I48.2 Essential hypertension I10 FPC current use of insulin Z79.4 Type 2 diabetes mellitus wit h complication, with long-term current use of insulin E11.8 Chronic diastolic congestive heart failu re I50.[address] scan chest Surgical History Surgery Date(Month/Year) tonsillectomy 1994 Hospitalization History Reason Date(Month/Year) diabetes atrial fibrillation 08/2015 [facility]-Chest pain, shortness of air 05-18-20 [facility]-Nausea and vomiting 08-23-16 [facility]- Abdomenal pain 04-22-17 Please see medical & surgical hx's [facility]- Edema and Atrial Fibrillation 10/03 [facility]-Vertigo 04-25-19 [facility]Nausea and vomiting 05-14-19 [facility]-Dizziness 07-31-2019 [facility]Chest pain 10-26-19 [facility] ER-Dizziness 07-23-20 [facility]-Anasarca 11-01-2020
--- OUTSIDE RECORDS SUMMARY | 2024-06-22 18:07 | XMS_ITS | Clinical Summary ---
Author Organization Unknown Care Team Providers Care Call Center Agent Name Role Phone JERMAN ANN, RIMA Unavailable Unavailable OTTO REGISTERED NURSE, JESSIE Unavailable Unavailable COLMAR PHYSICAL THERAPIST, MICHELE Unavailabl e Unavailable O'AISLINN PROPERTY SUPERVISOR, AMAN aguilar Unavailable ORIANA PATEL COUNSELOR, VIKTOR Unavailable Unavailable MARLENI REGISTERED NURSE, ROZINA Unavailable Unavailable Payers Payer Name Policy Type Policy Number Effective Date Expira tion Date MEDICARE [place] - EPISODIC [id number] Problems Condition Name Condition Details Condition Category Status Onset Date Resolution Date Last Treatment Date Treating Clinician Comments TYPE 2 DIABETES MELLITUS W DIABETIC CHRONIC KIDNEY DISEASE Active 09-22 00:00: 00 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 Active 06-15 00:00: 00 CHRONIC DIASTOLIC (CONGESTIVE) HEART FAILURE Active 06-15 00:00: 00 END STAGE RENAL DISEASE Active 09-22 00:00: 00 ANEMIA IN CHRONIC KIDNEY DISEASE Active 06-15 00:00: 00 TYPE 2 DIABETES MELLITUS WITH DIABETIC NEUROPATHY, UNSP Active 06-15 00:00: 00 ORTHOSTATIC HYPOTENSION Active 06-15 00:00: 00 DEPENDENCE ON RENAL DIALYSIS Active 06-15 00:00: 00 ATHSCL HEART DISEASE OF [place] CORONARY ARTERY W/O ANG PCTRS Active 06-15 00:00: 00 PAROXYSMAL ATRIAL FIBRILLATION Active - 00:00: 00 GOUT, UNSPECIFIED Active - 00:00: 00 SECONDARY HYPERPARATHY ROIDISM OF RENAL ORIGIN Active - 00:00: 00 MIXED HYPERLIPIDEM IA Active 06-15 00:00: 00 OTHER DISORDERS OF PHOSPHORUS METABOLISM Active 06-15 00:00: 00 GASTRO-ESOPH AGEAL REFLUX DISEASE WITHOUT ESOPHAGITIS Active 06-15 00:00: 00 OBSTRUCTIVE SLEEP APNEA (ADULT) (PEDIATRIC) Active 06-15 00:00: 00 CONSTIPATION , UNSPECIFIED Active 06-15 00:00: 00 Obesity, class 2 Active 06-15 00:00: 00 BODY MASS INDEX [BMI] 35.0-35.9, ADULT Active 06-15 00:00: 00 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 Ordering Clinician Indication Dosage Frequency Signature (SIG) Comments Components allopurinol 100 mg tablet 09-24 00:00: 00 Yes [id number] HYPERPHOSPH ATEMIA 1 tablet TWICE DAILY 1 tablet TWICE DAILY (route: oral) Med Classific ation: Gout and Hyperuric emia Therapy amiodarone 200 mg tablet 09-24 00:00: 00 Yes [id number] AFIB 1 tablet ONCE DAILY 1 tablet ONCE DAILY (route: oral) Med Classific ation: Cardiovas cular Therapy Agents atorvastati n 20 mg tablet 09-24 00:00: 00 Yes [id number] HIGH CHOLESTEROL 1 tablet ONCE DAILY 1 tablet ONCE DAILY (route: oral) Med Classific ation: Cardiovas cular Therapy Agents calcitriol 0.25 mcg capsule 09-24 00:00: 00 Yes [id number] SUPPLEMENT 1 capsule DIRECTED 1 capsule DIRECTED (route: oral) Med Classific ation: Electroly te Balance-N utritiona l Products carvedilol 12.5 mg tablet 09-24 00:00: 00 12-08 23:59 :00 No [id number] HYPERTENSIO N 1 tablet TWICE DAILY 1 tablet TWICE DAILY (route: oral) Med Classific ation: Cardiovas cular Therapy Agents Eliquis 5 mg tablet 09-24 00:00: 00 Yes [id number] AFIB 1 tablet TWICE DAILY 1 tablet TWICE DAILY (route: oral) Med Classific ation: Hematolog ical Agents fluticasone propionate 50 mcg/actuati on blister powder for inhalation 09-24 00:00: 00 Yes [id number] ALLERGIES 1 inhalat ion TWICE DAILY 1 inhalation TWICE DAILY (route: inhalation ) Med Classific ation: Respirato ry Therapy Agents gabapentin 100 mg capsule 09-24 00:00: 00 Yes [id number] NERVE PAIN 1 capsule TWICE DAILY 1 capsule TWICE DAILY (route: oral) Med Classific ation: Central Nervous System Agents insulin lispro (U-100) 100 unit/mL subcutaneou s pen 09-24 00:00: 00 04-11 23:59 :00 No [id number] TYPE TWO DIABETES 8 unit 3 TIMES DAILY 8 unit 3 TIMES DAILY (route: subcutaneo us) Alternate Route: SUBCUTANE OUS. Med Classific ation: Endocrine lactulose 10 gram/15 mL (15 mL) oral solution 09-24 00:00: 00 Yes [id number] CONSTIPATIO N 30 mL TWICE DAILY 30 mL TWICE DAILY (route: oral) Med Classific ation: Gastroint estinal Therapy Agents Lantus Solostar U-100 Insulin 100 unit/mL (3 mL) subcutaneou s pen 09-24 00:00: 00 03-02 23:59 :00 No [id number] TYPE 2 DIABETES 10 unit AT BEDTIME 10 unit AT BEDTIME (route: subcutaneo us) Alternate Route: SUBCUTANE OUS. Med Classific ation: Endocrine midodrine 10 mg tablet 09-24 00:00: 00 Yes [id number] REGULATE BLOOD PRESSURE 1 tablet 3 TIMES DAILY 1 tablet 3 TIMES DAILY (route: oral) Med Classific ation: Cardiovas cular Therapy Agents nystatin 100,000 unit/gram topical powder 09-24 00:00: 00 Yes [id number] MOISTURE TO SKIN FOLDS OF GROIN 1 gram TWICE DAILY 1 gram TWICE DAILY (route: topical) Med Classific ation: Dermatolo gical Protonix 40 mg tablet,ada yed release 09-24 00:00: 00 Yes [id number] REFLUX 1 tablet TWICE DAILY 1 tablet TWICE DAILY (route: oral) Med Classific ation: Gastroint estinal Therapy Agents Proventil HFA 90 mcg/actuati on aerosol inhaler 09-24 00:00: 00 Yes [id number] COUGH 1 puff EVERY 6 HOURS 1 puff EVERY 6 HOURS (route: inhalation ) Med Classific ation: Respirato ry Therapy Agents tramadol 50 mg tablet 09-24 00:00: 00 Yes [id number] PAIN 2 tablet EVERY 6 HOURS PRN 2 tablet EVERY 6 HOURS PRN (route: oral) Med Classific ation: Analgesic , Anti-infl ammatory or Antipyret ic Tylenol 325 mg tablet 09-24 00:00: 00 Yes [id number] PAIN 2 tablet EVERY 6 HOURS 2 tablet EVERY 6 HOURS (route: oral) Med Classific ation: Analgesic , Anti-infl ammatory or Antipyret ic carvedilol 25 mg tablet 12-10 00:00: 00 02-26 23:59 :00 No [id number] HYPERTENSIO N 1 tablet TWICE DAILY 1 tablet TWICE DAILY (route: oral) Med Classific ation: Cardiovas cular Therapy Agents sevelamer carbonate 800 mg tablet 02-08 00:00: 00 Yes [id number] ESRD 1 tablet 3 TIMES DAILY 1 tablet 3 TIMES DAILY (route: oral) Alternate Route: BY MOUTH. Med Classific ation: Genitouri nary Therapy Lantus Solostar U-100 Insulin 100 unit/mL (3 mL) subcutaneou s pen 03-02 00:00: 00 03-04 23:59 :00 No [id number] T2D 12 unit AT BEDTIME 12 unit AT BEDTIME (route: subcutaneo us) Med Classific ation: Endocrine Basaglar KwikPen U-100 Insulin 100 unit/mL (3 mL) subcutaneou s 9-20 00:00: 00 05-02 23:59 :00 No [id number] DIABETES MELLITUS TYPE TWO 18 unit AT BEDTIME 18 unit AT BEDTIME (route: subcutaneo us) Alternate Route: SUBCUTANE OUS. Med Classific ation: Endocrine benzonatate 200 mg capsule 2023-06 0-17 00:00: 00 04-05 23:59 :00 No [id number] COUGH 1 capsule 3 TIMES DAILY 1 capsule 3 TIMES DAILY (route: oral) Med Classific ation: Respirato ry Therapy Agents doxycycline hyclate 100 mg capsule 2023-06 0-17 00:00: 00 04-05 23:59 :00 No [id number] INFECTION PREVENTION 1 capsule TWICE DAILY 1 capsule TWICE DAILY (route: oral) Med Classific ation: Anti-Infe ctive Agents insulin lispro (U-100) 100 unit/mL subcutane s pen 2023-06 0-28 00:00: 00 05-02 23:59 :00 No [id number] DIABETES MELLITUS 10 unit 3 TIMES DAILY 10 unit 3 TIMES DAILY (route: subcutaneo us) Med Classific ation: Endocrine Basaglar KwikPen U-100 [facility]ulin 100 unit[facility]mL [facility]3 mL[facility]-06 00:00: 00 Yes [id number] DIABETES MELLITUS 24 unit AT BEDTIME 24 unit AT BEDTIME (route: subcutaneo us) Med Classific ation: Endocrine insulin lispro (U-100) 100 unit/mL subcutane s pen 2023-06 00:00: 00 Yes [id number] DIABETES MELLITUS 12 unit 3 TIMES DAILY 12 unit 3 TIMES DAILY (route: subcutaneo us) Med Classific ation: Endocrine carvedilol 25 mg tablet 2023-06 2-13 00:00: 00 Yes [id number] HYPERTENSIO N Per instruc tions DIRECTED Per instructio ns DIRECTED (route: oral) Med Classific ation: Cardiovas cular Therapy Agents Immunizations Ordered Immunization Name Filled Immunization Name Date Status Comments Refusal Reason INFLUENZA NOT GIVEN - NOT FLU SEASON, TIV (INACTIVATED) 2023-09-25 00:00:00 PNEUMOCOCCAL ? DOES NOT MEET THE AGE/CONDITION GUIDELINES, PPV 2023-09-25 00:00:00 Vital Signs Vital Name Observation Time Observation Value Commen ts Temperature 2024-06-07 16:47:00.000 98.5 [degF] Temperature 2024-05-30 09:14:00.000 98.1 [degF] Temperature 2024-05-23 09:13:00.000 98.8 [degF] Pulse 2024-06-07 16:47:00.000 74 /min Pulse 2024-05-30 09:14:00.000 72 /min Pulse 2024-05-23 09:13:00.000 70 /min O2 Saturation (%) 2024-06-07 16:47:00.000 99 % O2 Saturation (%) 2024-05-30 09:14:00.000 99 % O2 Saturation (%) 2024-05-23 09:13:00.000 99 % Respirations 2024-06-07 16:47:00.000 18 /min Respirations 2024-05-30 09:14:00.000 20 /min Respirations 2024-05-23 09:13:00.000 20 /min Weight (lbs) 2024-06-07 16:47:00.000 280 [lb_av] Systolic Blood Pressure 2024-06-07 16:47:00.000 160 mm [Hg] Systolic Blood Pressure 2024-05-30 09:14:00.000 186 mm [Hg] Systolic Blood Pressure 2024-05-23 09:13:00.000 180 mm [Hg] Diastolic Blood Pressure 2024-06-07 16:47:00.000 85 mm [Hg] Diastolic Blood Pressure 2024-05-30 09:14:00.000 106 m m[Hg] Diastolic Blood Pressure 2024-05-23 09:13:00.000 94 mm [Hg] Plan of Treatment Planned Activity Planned Date Details Comments Future Scheduled Test [facility] H NURSE WILL INSTRUCT PATIENT/CAREGIVER ON TYPE 2 DIABETES DISEASE PROCESS, HOW TO CREATE A DIABETIC TOOLKIT TO MANAGE INVENTORY OF SUPPLIES, HOW TO PLAN FOR A SICK-DAY, AND WARNING SIGNS WHEN THE PATIENT EXPERIENCES LOW BLOOD SUGAR. [code = HOME HEALTH NURSE WILL INSTRUCT PATIENT/CAREGIVER ON TYPE 2 DIABETES DISEASE PROCESS, HOW TO CREATE A DIABETIC TOOLKIT TO MANAGE INVENTORY OF SUPPLIES, HOW TO PLAN FOR A SICK-DAY, AND WARNING SIGNS WHEN THE PATIENT EXPERIENCES LOW BLOOD SUGAR.] Future Scheduled Test [facility] H NURSE WILL TEACH PATIENT/CAREGIVER ABOUT HEART FAILURE, EDEMA, AND HOW TO WEIGH DAILY AT THE SAME TIME EVERY MORNING AFTER URINATING AND BEFORE BREAKFAST. INSTRUCT PATIENT TO CHECK FOR WEIGHT GAIN CAUSED BY INCREASED FLUID AND CONTACT THE PHYSICIAN IF 2LBS WEIGHT GAIN IN 1 DAY OR 5LBS WEIGHT GAIN IN 1 WEEK. HOME HEALTH RN TO TEACH PATIENT ABOUT WARNING SIGNS TO CONTACT THE AGENCY, PHYSICIAN, OR 911. MAY ADD 2 PRN VISITS PER MONTH FOR SIGNS/SYMPTOMS OF EXACERBATION SUCH INCREASED EDEMA, WEIGHT GAIN, SHORTNESS OF BREATH, OR FATIGUE. [code = HOME HEALTH NURSE WILL TEACH PATIENT/CAREGIVER ABOUT HEART FAILURE, EDEMA, AND HOW TO WEIGH DAILY AT THE SAME TIME EVERY MORNING AFTER URINATING AND BEFORE BREAKFAST. INSTRUCT PATIENT TO CHECK FOR WEIGHT GAIN CAUSED BY INCREASED FLUID AND CONTACT THE PHYSICIAN IF 2LBS WEIGHT GAIN IN 1 DAY OR 5LBS WEIGHT GAIN IN 1 WEEK. HOME HEALTH RN TO TEACH PATIENT ABOUT WARNING SIGNS TO CONTACT THE AGENCY, PHYSICIAN, OR 911. MAY ADD 2 PRN VISITS PER MONTH FOR SIGNS/SYMPTOMS OF EXACERBATION SUCH INCREASED EDEMA, WEIGHT GAIN, SHORTNESS OF BREATH, OR FATIGUE.] Future Scheduled Test SKILLED NU RSE TO INSTRUCT PATIENT/CAREGIVER ON WHAT IS HYPERTENSION, HOW TO CHECK HIS/HER BLOOD PRESSURE, AND STRATEGIES TO USE TO CONTROL BLOOD PRESSURE SUCH MONITORING BP, MANAGING BLOOD GLUCOSE RESULTS TO AN ACCEPTABLE RANGE, MONITORING WEIGHTS, ENGAGING IN PHYSICAL ACTIVITY AIMING FOR 150 MINUTES SPREAD THROUGHOUT THE WEEK. [code = SKILLED NURSE TO INSTRUCT PATIENT/CAREGIVER ON WHAT IS HYPERTENSION, HOW TO CHECK HIS/HER BLOOD PRESSURE, AND STRATEGIES TO USE TO CONTROL BLOOD PRESSURE SUCH MONITORING BP, MANAGING BLOOD GLUCOSE RESULTS TO AN ACCEPTABLE RANGE, MONITORING WEIGHTS, ENGAGING IN PHYSICAL ACTIVITY AIMING FOR 150 MINUTES SPREAD THROUGHOUT THE WEEK.] Future Scheduled Test [facility] WILL TEACH THE PATIENT/CAREGIVER ABOUT WHAT IS AN ARRHYTHMIA, HOW TO CHECK OWN PULSE AND TRACK, SIGNS AND SYMPTOMS OF WHEN ARRYTHMIA OCCURS, AND WHAT WARNING SIGNS TO CALL THE AGENCY, PHYSICIAN OR 911. [code = HOME HEALTH NURSE WILL TEACH THE PATIENT/CAREGIVER ABOUT WHAT IS AN ARRHYTHMIA, HOW TO CHECK OWN PULSE AND TRACK, SIGNS AND SYMPTOMS OF WHEN ARRYTHMIA OCCURS, AND WHAT WARNING SIGNS TO CALL THE AGENCY, PHYSICIAN OR 911.] Future Scheduled Test HOME [facility] H NURSE TO INSTRUCT PATIENT/CAREGIVER ON HYPOTENSION, SIGNS AND SYMPTOMS TO REPORT, TO KEEP A VITAL SIGN LOG, TO MONITOR BLOOD PRESSURE SIT TO STAND, AND TO ADDRESS DIETARY NEEDS TO HELP DECREASE SIGNS AND SYMPTOMS RELATED TO HYPOTENSION. [code = HOME HEALTH NURSE TO INSTRUCT PATIENT/CAREGIVER ON HYPOTENSION, SIGNS AND SYMPTOMS TO REPORT, TO KEEP A VITAL SIGN LOG, TO MONITOR BLOOD PRESSURE SIT TO STAND, AND TO ADDRESS DIETARY NEEDS TO HELP DECREASE SIGNS AND SYMPTOMS RELATED TO HYPOTENSION.] Future Scheduled Test HOME [facility] NURSE WILL INSTRUCT AND VERIFY APPROPRIATE STEPS ON HOW THE PATIENT CHECKS OWN BLOOD GLUCOSE AND IMPORTANCE TO TRACK BLOOD RESULTS ON A DAILY LOG OR NOTEBOOK TO MONITOR TRENDS. PATIENT/CAREGIVER OR HOME HEALTH RN WILL PERFORM BLOOD GLUCOSE CHECKS. BLOOD GLUCOSE MONITORING WILL OCCUR 4 NUMBER OF TIMES PER DAY. [code = HOME HEALTH NURSE WILL INSTRUCT AND VERIFY APPROPRIATE STEPS ON HOW THE PATIENT CHECKS OWN BLOOD GLUCOSE AND IMPORTANCE TO TRACK BLOOD RESULTS ON A DAILY LOG OR NOTEBOOK TO MONITOR TRENDS. PATIENT/CAREGIVER OR HOME HEALTH RN WILL PERFORM BLOOD GLUCOSE CHECKS. BLOOD GLUCOSE MONITORING WILL OCCUR 4 NUMBER OF TIMES PER DAY.] Future Scheduled Test HOME [facility] NURSE WILL INSTRUCT AND VERIFY APPROPRIATE STEPS ON HOW THE PATIENT ADMINISTERS INSULIN INJECTIONS USING A SINGLE USE SYRINGE AND IMPORTANCE IN SITE SELECTION AND SYRINGE DISPOSAL. PATIENT/CAREGIVER OR HOME HEALTH RN WILL ADMINISTER INSULIN INJECTIONS PRESCRIBED BY THE PHYSICIAN. [code = HOME HEALTH NURSE WILL INSTRUCT AND VERIFY APPROPRIATE STEPS ON HOW THE PATIENT ADMINISTERS INSULIN INJECTIONS USING A SINGLE USE SYRINGE AND IMPORTANCE IN SITE SELECTION AND SYRINGE DISPOSAL. PATIENT/CAREGIVER OR HOME HEALTH RN WILL ADMINISTER INSULIN INJECTIONS PRESCRIBED BY THE PHYSICIAN.] Future Scheduled Test [facility] NURSE TO INSTRUCT ON CHRONIC KIDNEY DISEASE ITS COMPLICATIONS, AND WHEN TO CONTACT THE AGENCY, PHYSICIAN OR 911 [code = HOME HEALTH NURSE TO INSTRUCT ON CHRONIC KIDNEY DISEASE ITS COMPLICATIONS, AND WHEN TO CONTACT THE AGENCY, PHYSICIAN OR 911] Future Scheduled Test SKILLED NU RSE TO INSTRUCT ON REASON FOR DIALYSIS AND WHEN TO REPORT COMPLICATIONS TO THEIR MEDICAL PROVIDER. [code = SKILLED NURSE TO INSTRUCT ON REASON FOR DIALYSIS AND WHEN TO REPORT COMPLICATIONS TO THEIR MEDICAL PROVIDER.] Future Scheduled Test [facility] TIFYING PHYSICIAN, ASSOCIATED PHYSICIAN, NPP OR PA WITHIN THE SAME GROUP MAY APPROVE AND SIGN THE ORDER (ON ANY PAGE) ATTESTING THAT THE COMPREHENSIVE OUTCOME ASSESSMENTS, EVALUATIONS, AND HOME HEALTH CERTIFICATION PLANS SUPPORT HOMEBOUND STATUS. HOME HEALTH WEB-PORTAL DOCUMENTATION ACCESSED BY THE PHYSICIAN MUST BE INCORPORATED INTO THE MEDICAL RECORD TO CORROBORATE THE PHYSICIAN, NPP, OR PAS F2F ENCOUNTER TO SUPPORT ELIGIBILITY FOR HOME HEALTH SERVICES. [code = THE HH CERTIFYING PHYSICIAN, ASSOCIATED PHYSICIAN, NPP OR PA WITHIN THE SAME GROUP MAY APPROVE AND SIGN THE ORDER (ON ANY PAGE) ATTESTING THAT THE COMPREHENSIVE OUTCOME ASSESSMENTS, EVALUATIONS, AND HOME HEALTH CERTIFICATION PLANS SUPPORT HOMEBOUND STATUS. HOME HEALTH WEB-PORTAL DOCUMENTATION ACCESSED BY THE PHYSICIAN MUST BE INCORPORATED INTO THE MEDICAL RECORD TO CORROBORATE THE PHYSICIAN, NPP, OR PAS F2F ENCOUNTER TO SUPPORT ELIGIBILITY FOR HOME HEALTH SERVICES.] Future Scheduled Test EACH ORDER ED IN-HOME OR TELEHEALTH VISIT, THE SKILLED NURSE WILL CONDUCT A COMPREHENSIVE ASSESSMENT INCLUDING VITAL SIGNS, PAIN, SAFETY, MENTAL/COGNITIVE/PSYCHOSOCIAL STATUS, MED MANAGEMENT, NUTRITION, SKIN INTEGRITY, PRESSURE ULCER PREVENTION, AND PATIENT/CAREGIVER ABILITY TO SUPPORT ORDERED CARE. SKILLED NURSE WILL INSTRUCT ON DISEASE PROCESS, MED MGMT., FALL PREVENTION AND SAFETY, INFECTION CONTROL AND PREVENTION, WARNING SIGNS, ADDRESS RESULTS OUTSIDE OF ORDERED PARAMETERS LISTED ON CARE PLAN, AND COORDINATE DISCHARGE WITH THE TREATING PROVIDER. MAY ACCEPT ORDERS FROM THE FOLLOWING PROVIDER(S) WHO WILL BE CONSULTING ON THE CERTIFIED CARE PLAN: DR PRITI BAI, DR CHRISTIANSON AND ANYONE COVERING IN THEIR ABSENCE. [code = EACH ORDERED IN-HOME OR TELEHEALTH VISIT, THE SKILLED NURSE WILL CONDUCT A COMPREHENSIVE ASSESSMENT INCLUDING VITAL SIGNS, PAIN, SAFETY, MENTAL/COGNITIVE/PSYCHOSOCIAL STATUS, MED MANAGEMENT, NUTRITION, SKIN INTEGRITY, PRESSURE ULCER PREVENTION, AND PATIENT/CAREGIVER ABILITY TO SUPPORT ORDERED CARE. SKILLED NURSE WILL INSTRUCT ON DISEASE PROCESS, MED MGMT., FALL PREVENTION AND SAFETY, INFECTION CONTROL AND PREVENTION, WARNING SIGNS, ADDRESS RESULTS OUTSIDE OF ORDERED PARAMETERS LISTED ON CARE PLAN, AND COORDINATE DISCHARGE WITH THE TREATING PROVIDER. MAY ACCEPT ORDERS FROM THE FOLLOWING PROVIDER(S) WHO WILL BE CONSULTING ON THE CERTIFIED CARE PLAN: DR PRITI BAI, DR CHRISTIANSON AND ANYONE COVERING IN THEIR ABSENCE.] Goal 2023-11-20 Patient Goal - SOC 09/24- GET STRONGER Goal 2024-01-04 Patient Goal - S OC 09/24- GET STRONGER RECERT 11/20/2023: TO GET AROUND BETTER Goal 2024-03-02 Patient Goal - S OC 09/24- GET STRONGER RECERT 11/20/2023: TO GET AROUND BETTER PHIL 01/04/24: STAY OUT OF HOSPITAL RECERT 01/18/2024: TO WALK AGAIN Goal 2024-01-18 Patient Goal - S OC 09/24- GET STRONGER RECERT 11/20/2023: TO GET AROUND BETTER PHIL 01/04/24: STAY OUT OF HOSPITAL Goal 2024-05-17 Patient Goal - S OC 09/24- GET STRONGER RECERT 11/20/2023: TO GET AROUND BETTER PHIL 01/04/24: STAY OUT OF HOSPITAL RECERT 01/18/2024: TO WALK AGAIN 03/02/24 PHIL: TO STAY OUT OF HOSPITAL RECERT 03/21/24: TO GET STRONGER Goal 2024-03-21 Patient Goal - S OC 09/24- GET STRONGER RECERT 11/20/2023: TO GET AROUND BETTER PHIL 01/04/24: STAY OUT OF HOSPITAL RECERT 01/18/2024: TO WALK AGAIN 03/02/24 PHIL: TO STAY OUT OF HOSPITAL Goal Patient Goal - S OC 09/24- GET STRONGER RECERT 11/20/2023: TO GET AROUND BETTER PHIL 01/04/24: STAY OUT OF HOSPITAL RECERT 01/18/2024: TO WALK AGAIN 03/02/24 PHIL: TO STAY OUT OF HOSPITAL RECERT 03/21/24: TO GET STRONGER RECERT 05/17/24: TO STAY OUT OF THE HOSPITAL Goal Provider Goal - PATIENT/CAREGIVER WILL VERBALIZE UNDERSTANDING OF TYPE 2 DIABETES AND THE IMPORTANCE OF MANAGING THE BLOOD SUGAR WITHIN THE EXPECTED RANGE. PATIENT/CAREGIVER WILL ESTABLISH A DIABETIC TOOLKIT AND A SICK-DAY PLAN TO PREPARE FOR POTENTIAL CHANGES WITH BLOOD SUGARS RANGES. PATIENT/CAREGIVER WILL VERBALIZE WARNING SIGNS OF LOW BLOOD SUGAR AND WHAT ACTIONS TO TAKE. Goal Provider Goal - PATIENT/CAREGIVER WILL DEMONSTRATE AND ADHERE TO WEIGHING DAILY WITH THE USE OF TRACKING LOG. PATIENT WILL VERBALIZE WAYS TO MONITOR FLUID OVERLOAD FROM OWN QUALITY OF SLEEP, EDEMA, TIGHT-FITTING CLOTHES, QUALITY OF BREATHING, AND CHANGES IN FEELING MORE TIRED OR WEEK BY THE END OF HOME HEALTH SERVICES. Goal Provider Goal - PATIENT/CAREGIVER WILL INDEPENDENTLY DEMONSTRATE HOW TO CHECK HIS/HER OWN BP AND VERBALIZE WHAT STRATEGIES CAN ASSIST TO CONTROL BLOOD PRESSURE. Goal Provider Goal - BY THE END OF HOME HEALTH SERVICES, PATIENT/CAREGIVER WILL DEMONSTRATE HOW TO TAKE THEIR OWN PULSE AND VERBALIZE WHAT WARNING SIGNS TO CALL THE PHYSICIAN OR 911 BY THE END OF HOME HEALTH SERVICES. Goal Provider Goal - PATIENT/CAREGIVER WILL DEMONSTRATE USE OF A LOG TO TRACK BLOOD PRESSURE READINGS AND VERBALIZE UNDERSTANDING OF WHEN TO CALL THE PHYSICIAN BY THE END OF HOME HEALTH SERVICES. Goal Provider Goal - PATIENT/CAREGIVER WILL DEMONSTRATE PROPER TECHNIQUE WHEN CHECKING OWN BLOOD GLUCOSE, DEMONSTRATES ADHERES TO WRITING DOWN RESULTS USING A LOGBOOK, FOLLOWS THE PRESCRIBED FREQUENCY OF BLOOD SUGAR CHECKS PRIOR TO DISCHARGING FROM HOME HEALTH SERVICES. Goal Provider Goal - PATIENT/CAREGIVER WILL INDEPENDENTLY DEMONSTRATE PROPER TECHNIQUE WHEN ADMINISTERING INSULIN INJECTIONS USING A SINGLE USE SYRINGE. PATIENT/CAREGIVER WILL VERBALIZE UNDERSTANDING OF APPROPRIATE DISPOSAL OF SYRINGES BY THE END OF HOME HEALTH SERVICES. Goal Provider Goal - PATIENT/CAREGIVER WILL INDEPENDENTLY VERBALIZE THE DEFINITIONS OF CKD, COMPLICATIONS, AND TREATMENTS OF THE DISEASE BY. PATIENT/CAREGIVER WILL INDEPENDENTLY VERBALIZE SYMPTOMS TO REPORT TO THE PHYSICIAN BY THE END OF HOME HEALTH SERVICES. Goal Provider Goal - PATIENT/CAREGIVER WILL INDEPENDENTLY DEMONSTRATE STRATEGIES IDENTIFY OF EXACERBATION. PATIENT/CAREGIVER WILL BE ABLE TO IDENTIFY SIGNS AND SYMPTOMS OF DEHYDRATION AND ELECTROLYTE IMBALANCE. Goal Provider Goal - PATIENT WILL BE FREE OF FALLS AND HOSPITALIZATIONS THROUGHOUT EPISODE OF CARE. PATIENT/CAREGIVER WILL UNDERSTAND AND ADHERE TO ORDERED DIET. PATIENT/CAREGIVER WILL INDEPENDENTLY MANAGE MEDICATIONS, UNDERSTAND ANY CHANGES, SIDE EFFECTS TO REPORT BY EOE. PATIENT WILL BE FREE OF INFECTION AND UNDERSTAND MEASURES OF PREVENTION. PATIENT/CAREGIVER WILL COLLABORATE WITH SKILLED NURSE TO DEVELOP POC AT SOC AND ON AN ONGOING BASIS UPDATES ARE NEEDED. UNDERSTAND PROGRESS MADE/DISCHARGE PLANNING. ADDITIONAL ORDERS WILL BE RECEIVED FROM ALTERNATE PHYSICIANS IN A TIMELY MANNER. Goal Provider Goal - A PLAN OF CARE WILL BE ESTABLISHED THAT MEETS ALL PATIENT'S SNF NEEDS AND COUNTER SIGNED BY PHYSICIAN. Encounters Start Date/Time End Date/Time Encounter Type Admission Type Attending [facility] Care Department Encounter ID Discharge Date Discharge Status Discharge Condition Discharge Reason Percent Goals Met 2023-09-25 00:00:00 2024-07-20 00:00:00 Outpatient RECERTIFIC ATJESSIE DE [place] [facility] [id number] 22.22
--- OUTSIDE RECORDS SUMMARY | 2024-06-22 19:02 | XMS_ITS | Encounter Summary ---
Author Organization [facility] Address [address] [place] [address]. [place], [place] [id number] [place] [id number] Care Team Providers Care Heat Treatment Technician Name Role Phone Mery Maxwell MD Primary Care Provider [phone] Reason for Referral * (Routine) - New Request Specialty Diagnoses / Procedures Referred By Flako t Referred To Contact Procedures [facility] [address] [place] [address] Phone: tel: Referral ID Status Reason Start Date Expiration Date V isits Requested Visits Authorized [id number] New Request 02/26/2024 02/25/2025 1 1 * (Routine) - New Request Specialty Diagnoses / Procedures Referred By Contkalli t Referred To Contact Procedures [facility] [address] [place] [address] Phone: tel: Referral ID Status Reason Start Date Expiration Date V isits Requested Visits Authorized [id number] New Request 02/26/2024 02/25/2025 1 1 Reason for Visit * Auth/Cert (Routine) Specialty Diagnoses / Procedures Referred By Contac t Referred To Contact Diagnoses Hypotension HYPOTENSION Procedures NONE Carmelita Celis MD [address] [place] [address] Phone: tel: fax: Referral ID Status Reason Start Date Expiration Date Visits Re quested Visits Authorized [id number] 1 1 Encounter Details Date Type Department Care Team (Latest Contact Info) Description 02/26/2024 5:26 AM CDT - 02/27/2024 2:57 PM CDT Hospital Encounter [facility] [address] [place] [address] Carmelita Celis MD 1 [place] [address] Raymond Higgins MD 1 [place], [place] [id number] Discharge Disposition: Home or Self Care (Routine Discharge) Social History Tobacco Use Types Packs/Day Years Used Date Smoking Tobacco: Former Cigarettes 1 15 Smokeless Tobacco: Never Alcohol Use Standard Drinks/Week Comments Not Currently 0 (1 standard drink = 0.6 oz pur e alcohol) [facility] Utilities Answer Date Recorded In the past 12 months has e electric, gas, oil, or water [email or web address] threatened to shut off services in your [...] any time in the past 12 m [facility], were you homeless or living in a usp (including now)? No 02/26/2024 Sex and Gender [...] Hospitalist Discharge Summary Patient ID: Aaron Campos [id number] 53-year-old 1970 Admit date: 02/26/2024 Expected Discharge Date: 02/27/2024 Primary care Physician: MERY MAXWELL MD Admitting Physician: Carmelita Celis MD Discharge Physician: RAYMOND HIGGINS MD Admission Diagnoses: Hypotension [I95.9] Discharge Diagnoses: hypotension Past Medical History Past Medical History: Diagnosis Date A-fib ([facility] HHS/HCC) Constipation Diabetes mellitus ([facility] HHS/HCC) ESRD (end stage renal disease) ([facility] HHS/[facility]) GERD (gastroesophageal reflux disease) Gout, unspecified High cholesterol Neuropathy 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[facility]) Renal disorder Brief Hospital Course: Aaron Campos is an 53-year-old male who got accepted as a direct admission to the IMC unit at [facility] from the ED of [facility] in [place] due to hypotension. The patient presented to the ED of [facility] in [place] (yesterday night) due to generalized weakness. The [...] spent on discharge Thank you for choosing [facility]. Please call [phone] if you have any questions or concerns. Signed: RAYMOND HIGGINS MD 02/27/2024 11:10 AM documented in this encounter Discharge Instructions * Attachments The following attachments cannot be sent through Care Everywhere. * Low Blood Pressure Discharge Instructions (Samoan) * Midodrine, ADULT (Samoan) * Checking your blood pressure at home (Samoan) documented in this encounter Medications at Time [...] of $390 to be covered by Management. [place] transportation scheduled for 2:30pm. 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 Kalyn MD PT Received On 02/26/24 Subjective RN ok'd therapy session. Pt received in bed and agreeable to therapy session. 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.] nephrology consult if the patient stays at [facility] tomorrow Paroxysmal atrial fibrillation - Continue [...] direct admission to the IMC unit at [facility] from the ED of [facility] in [place] due to hypotension. The patient presented to the ED of [facility] in [place] (yesterday night) due to generalized weakness. The [...] motion Past Medical History: Diagnosis Date A-fib ([facility]) Constipation Diabetes mellitus ([facility]/HCC) ESRD (end stage renal disease) ([facility]) GERD (gastroesophageal reflux disease) Gout, unspecified High cholesterol Neuropathy 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[facility]) Renal disorder Social History Tobacco Use Smoking [...] male with history of ESRD on HD ([facility]), paroxysmal atrial fibrillation, HLD, gout, GERD, ADRYAN who is admitted to [facility] due to symptomatic hypotension following his dialysis session yesterday. [facility] consulted for dialysis. ESRD on HD ([facility]) Hypotension Dizziness 2/2 above Anemia of chronic disease -Access: LUE AVF. -Follows with [facility], Dr. Christianson. Receives dialysis at [facility]. -Last session was 02/24 with 3.5 L UF removed. Noted to be hypotensive during the end of dialysis. Also had a extra session on 02/23 for volume removal. -Given 1 L NS, 1x vasopressin and 20 mg midodrine on admission to [facility]. BP continues to be soft. -CTH negatvie [facility] Recommendations: -Plan for dialysis tomorrow per home schedule with UF as tolerated. -Started on midodrine 10 mg TID. -Recommend renal diet. -Avoid nephrotoxic medications. Renally dose medications. -Repeat BMP tomorrow AM. Thank you for the consultation. 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 HPI: Aaron Campos is a 53-year-old male with history of ESRD on HD ([facility]), paroxysmal atrial fibrillation, HLD, gout, GERD, ADRYAN who is admitted to [facility] due to symptomatic hypotension following his [...] History: Past Medical History: Diagnosis Date A-fib ([facility]) Constipation Diabetes mellitus ([facility]) ESRD (end stage renal disease) ([facility]) GERD (gastroesophageal reflux disease) Gout, unspecified High cholesterol Neuropathy 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[facility]) Renal disorder Past Surgical History: Past Surgical [...] Connections: Feeling Socially Integrated (06/14/2023) Received from [facility] OASIS D0700: Social Isolation Frequency of experiencing [...] st Contact Info) Description 07/20/2024 10:30 AM 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 Office Visit [facility]-[address] [place] [phone] Martha Ramirez, [facility]- [address] [place] [address] documented as of this encounter Goals Goal [...] 70 - 109 02/27/2024 12:37 PM CDT [facility] 02/27/2024 12:0 3 PM CDT us Raymond Higgins MD POCT ORDERABLES - DEVICE Final R esult Performing Organization Address City/[facility]/ZIP Co de Phone Number [facility] [address] [place] [address], [place] [phone] * (ABNORMAL) POCT glucose (02/27/2024 6:10 AM CDT) GLUCOSE POC 220(H) 70 - 109 02/27/2024 6:19 AM CDT [facility] 02/27/2024 6:10 AM CDT us Raymond Higgins MD POCT ORDERABLES - DEVICE Final R esult Performing Organization Address City/[facility]/ZIP Co de Phone Number [facility] [address] [place] [address], [phone] * MAGNESIUM (02/27/2024 1:08 AM CDT) MAGNESIUM 2.3 1.6 - 2.6 MG/DL 02/27/2024 3:13 AM CDT [facility] 02/27/2024 1:08 AM CDT us Carmelita Celis MD LABORATORY Final Result [facility] [address] [place] [address], [phone] * (ABNORMAL) COMPREHENSIVE METABOLIC PANEL (02/27/2024 1:08 AM CDT) Pathologist [facility] SODIUM S/P/B 134(L) 136 - 145 MMOL/L 02/27/2024 3:13 AM CDT [facility] POTASSIUM S/P/B 4.1 3.5 - 5.1 MMOL/L 02/27/2024 3:13 AM CDT [facility] CHLORIDE S/P/B 96(L) 97 - 115 MMOL/L 02/27/2024 3:13 AM CDT [facility] CO2 23.8 21.0 - 32.0 MMOL/L 02/27/2024 3:13 AM CDT [facility] GLUCOSE 229(H) 74 - 106 MG/DL 02/27/2024 3:13 AM CDT [facility] BUN 63(H) 7 - 18 MG/DL 02/27/2024 3:13 AM CDT [facility] CREATININE S/P/B 8.77(H) 0.70 - 1.30 MG/DL 02/27/2024 3:13 AM CDT [facility] CALCIUM S/P/B 10.5(H) 8.5 - 10.1 MG/DL 02/27/2024 3:13 AM CDT [facility] BILIRUBIN TOTAL S/P/B 0.4 0.2 - 1.0 MG/DL 02/27/2024 3:13 AM CDT [facility] ALKALINE PHOSPHATASE S/P/B 53 45 - 115 U/L 02/27/2024 3:13 AM CDT [facility] AST 14(L) 15 - 37 U/L 02/27/2024 3:13 AM CDT [facility] ALT 15(L) 16 - 61 U/L 02/27/2024 3:13 AM CDT [facility] TOTAL PROTEIN S/P/B 7.9 6.4 - 8.2 G/DL 02/27/2024 3:13 AM CDT [facility] ALBUMIN S/P/B 3.6 3.4 - 5.0 G/DL 02/27/2024 3:13 AM CDT [facility] ANION GAP 14.2(H) 2.0 - 10.0 MMOL/L 02/27/2024 3:13 AM CDT [facility] OSMOLALITY (CALC) 303 MOSM/KG 024 3:13 AM T [facility] Comment:REFERENCE RANGE NOT ESTABLISHED GFR ESTIMATE 7(L) >90 ML/MIN/1. 73 M2 02/27/2024 3:13 AM CDT [facility] GFR NOTES GFR REFERENCE S: 02/27/2024 3:13 AM CDT [facility] Comment: THE ESTIMATED GFR IS [...] us Carmelita Celis MD LABORATORY Final Result [facility] [address] [place] [address], [phone] * (ABNORMAL) CBC W/DIFF AUTOMATED (02/27/2024 1:08 AM CDT) [facility] WBC 9.53 4.00 - 10.80 x10'3/uL 02/27/2024 1:28 AM CDT [facility] RBC 3.66(L) 4.50 - 6.10 x10'6/uL 02/27/2024 1:28 AM CDT [facility] HGB 12.0 12.0 - 16.0 G/DL 02/27/2024 1:28 AM CDT [facility] HCT 37.2 37.0 - 52.0 % 02/27/2024 1:28 AM CDT [facility] MCV 101.6(H) 78.0 - 100.0 FL 02/27/2024 1:28 AM CDT [facility] MCH 32.8(H) 27.0 - 31.0 PG 02/27/2024 1:28 AM CDT [facility] MCHC 32.3(L) 33.0 - 36.0 G/DL 02/27/2024 1:28 AM CDT [facility] RDW 13.2 11.5 - 14.5 % 02/27/2024 1:28 AM CDT [facility] PLT 191 150 - 350 x10'3/uL 02/27/2024 1:28 AM CDT [facility] MPV 10.4 7.4 - 10.4 FL 02/27/2024 1:28 AM CDT [facility] DIFFERENTIAL TYPE AUTOMATED DIFFERENTIAL 02/27/2024 1:28 AM CDT [facility] SEG NEUTROPHILS 58.3 % 1:28 AM CDT [facility] LYMPHOCYTES 27.5 % 02/27/2024 1:28 AM CDT [facility] MONOCYTES 8.6 % 02/27/2024 1:28 AM CDT [facility] EOSINOPHILS 3.4 % 02/27/2024 1:28 AM CDT [facility] BASOPHILS 0.9 % 02/27/2024 1:28 AM CDT [facility] IMMATURE GRANS % 1.3 % 02/27/20 1:28 AM CDT [facility] ABS. NEUTROPHILS 5.56 1.60 - 8.30 x10'3/uL 02/27/2024 1:28 AM CDT [facility] ABS. LYMPHOCYTES 2.62 0.80 - 4.70 x10'3/uL 02/27/2024 1:28 AM CDT [facility] ABS. MONOCYTES 0.82 0.00 - 1.50 x10'3/uL 02/27/2024 1:28 AM CDT [facility] ABS. EOSINOPHILS 0.32 0.00 - 0.40 x10'3/uL 02/27/2024 1:28 AM CDT [facility] ABS. BASOPHILS 0.09 0.00 - 0.20 x10'3/uL 02/27/2024 1:28 AM CDT [facility] ABS. IMMATURE GRANULOCYTES 0.12(H) 0.00 - 0.03 x10'3/uL 02/27/2024 1:28 AM CDT [facility] ABS. NUCLEATED RBC'S 0.00 0.00 - 0.01 x10'3/uL 02/27/2024 1:28 AM CDT [facility] NRBC % 0.0 % 02/27/2024 1:28 AM CDT [facility] 02/27/2024 1:08 AM CDT us Carmelita Celis MD LABORATORY Final Result [facility] [address] [place] [address], [phone] * (ABNORMAL) POCT glucose (02/26/2024 8:22 PM CDT) GLUCOSE POC 189(H) 70 - 109 02/26/2024 8:33 PM CDT [facility] 02/26/2024 8:22 PM CDT Raymond Higgins MD POCT ORDERABLES - DEVICE Final R esult Performing Organization Address City/[facility]/ZIP Co de Phone Number [facility] [address] [place] [address], [place] [phone] * TROPONIN, QUANT (02/26/2024 5:48 PM CDT) [facility] TROPONIN I HIGH SENSITIVITY 12 0 - 78 ng/L 02/26/2024 7:24 PM CDT [facility] 02/26/2024 5:48 PM CDT Carmelita Celis MD LABORATORY Final Result Performing Organization Address [facility] Co de Phone Number [facility] [address] [place] [address], [place] [phone] * (ABNORMAL) POCT glucose (02/26/2024 4:44 PM CDT) GLUCOSE POC 224(H) 70 - 109 02/26/2024 4:46 PM CDT [facility] 02/26/2024 4:44 PM CDT Raymond Higgins MD POCT ORDERABLES - DEVICE Final R esult Performing Organization Address [facility] Co de Phone Number [facility] [address] [place] [address], [place] [phone] * TROPONIN, QUANT (02/26/2024 12:30 PM CDT) Pathologist [facility] TROPONIN I HIGH SENSITIVITY 11 0 - 78 ng/L 02/26/2024 1:04 PM CDT [facility] 02/26/2024 12:3 0 PM CDT Carmelita Celis MD LABORATORY Final Result Performing Organization Address [facility] Co de Phone Number [facility] [address] [place] [address], [phone] * (ABNORMAL) POCT glucose (02/26/2024 11:14 AM CDT) [facility] GLUCOSE POC 228(H) 70 - 109 02/26/2024 11:35 AM CDT [facility] 02/26/2024 11:1 4 AM CDT Raymond Higgins MD POCT ORDERABLES - DEVICE Final R esult Performing Organization Address [facility] Co de Phone Number [facility] [address] [place] [address], [phone] * TROPONIN, QUANT (02/26/2024 6:17 AM CDT) [facility] TROPONIN I HIGH SENSITIVITY 12 0 - 78 ng/L 02/26/2024 7:04 AM CDT [facility] 02/26/2024 6:17 AM CDT Carmelita Celis MD LABORATORY Final Result Performing Organization Address [facility] Co de Phone Number [facility] [address] [place] [address], [phone] * MAGNESIUM (02/26/2024 6:17 AM CDT) Pathologist [facility] MAGNESIUM 2.2 1.6 - 2.6 MG/DL 02/26/2024 7:04 AM CDT [facility] 02/26/2024 6:17 AM CDT Carmelita Celis MD LABORATORY Final Result [facility] [address] [place] [address], [phone] * (ABNORMAL) COMPREHENSIVE METABOLIC PANEL (02/26/2024 6:17 AM CDT) SODIUM S/P/B 131(L) 136 - 145 MMOL/L 02/26/2024 7:04 AM CDT [facility] POTASSIUM S/P/B 3.8 3.5 - 5.1 MMOL/L 02/26/2024 7:04 AM CDT [facility] CHLORIDE S/P/B 96(L) 97 - 115 MMOL/L 02/26/2024 7:04 AM CDT [facility] CO2 25.8 21.0 - 32.0 MMOL/L 02/26/2024 7:04 AM CDT [facility] GLUCOSE 306(H) 74 - 106 MG/DL 02/26/2024 7:04 AM CDT [facility] BUN 42(H) 7 - 18 MG/DL 02/26/2024 7:04 AM CDT [facility] CREATININE S/P/B 6.78(H) 0.70 - 1.30 MG/DL 02/26/2024 7:04 AM CDT [facility] CALCIUM S/P/B 9.7 8.5 - 10.1 MG/DL 02/26/2024 7:04 AM CDT [facility] BILIRUBIN TOTAL S/P/B 0.5 0.2 - 1.0 MG/DL 02/26/2024 7:04 AM CDT [facility] ALKALINE PHOSPHATASE S/P/B 56 45 - 115 U/L 02/26/2024 7:04 AM CDT [facility] AST 12(L) 15 - 37 U/L 02/26/2024 7:04 AM CDT [facility] ALT 17 16 - 61 U/L 02/26/2024 7:04 AM CDT [facility] TOTAL PROTEIN S/P/B 8.3(H) 6.4 - 8.2 G/DL 02/26/2024 7:04 AM CDT [facility] ALBUMIN S/P/B 3.6 3.4 - 5.0 G/DL 02/26/2024 7:04 AM CDT [facility] ANION GAP 9.2 2.0 - 10.0 MMOL/L 02/26/2024 7:04 AM CDT [facility] OSMOLALITY (CALC) 294 MOSM/KG 024 7:04 AM T [facility] Comment:REFERENCE RANGE NOT ESTABLISHED GFR ESTIMATE 9(L) >90 ML/MIN/1. 73 M2 02/26/2024 7:04 AM CDT [facility] GFR NOTES GFR REFERENCE S: 02/26/2024 7:04 AM T [facility] Comment: THE ESTIMATED GFR IS [...] CDT Carmelita Celis MD LABORATORY Final Result [facility] [address] [place] [address], [place] [phone] * (ABNORMAL) CBC W/DIFF AUTOMATED (02/26/2024 6:17 AM CDT) [facility] WBC 9.71 4.00 - 10.80 x10'3/uL 02/26/2024 6:29 AM CDT [facility] RBC 3.65(L) 4.50 - 6.10 x10'6/uL 02/26/2024 6:29 AM CDT [facility] HGB 11.9(L) 12.0 - 16.0 G/DL 02/26/2024 6:29 AM CDT [facility] HCT 36.3(L) 37.0 - 52.0 % 02/26/2024 6:29 AM CDT [facility] MCV 99.5 78.0 - 100.0 FL 02/26/2024 6:29 AM CDT [facility] MCH 32.6(H) 27.0 - 31.0 PG 02/26/2024 6:29 AM CDT [facility] MCHC 32.8(L) 33.0 - 36.0 G/DL 02/26/2024 6:29 AM CDT [facility] RDW 13.2 11.5 - 14.5 % 02/26/2024 6:29 AM CDT [facility] PLT 189 150 - 350 x10'3/uL 02/26/2024 6:29 AM CDT [facility] MPV 10.2 7.4 - 10.4 FL 02/26/2024 6:29 AM CDT [facility] DIFFERENTIAL TYPE AUTOMATED DIFFERENTIAL 02/26/2024 6:29 AM CDT [facility] SEG NEUTROPHILS 62.4 % 6:29 AM CDT [facility] LYMPHOCYTES 26.7 % 02/26/2024 6:29 AM CDT [facility] MONOCYTES 6.9 % 02/26/2024 6:29 AM CDT [facility] EOSINOPHILS 2.0 % 02/26/2024 6:29 AM CDT [facility] BASOPHILS 0.9 % 02/26/2024 6:29 AM CDT [facility] IMMATURE GRANS % 1.1 % 02/26/20 6:29 AM CDT [facility] ABS. NEUTROPHILS 6.06 1.60 - 8.30 x10'3/uL 02/26/2024 6:29 AM CDT [facility] ABS. LYMPHOCYTES 2.59 0.80 - 4.70 x10'3/uL 02/26/2024 6:29 AM CDT [facility] ABS. MONOCYTES 0.67 0.00 - 1.50 x10'3/uL 02/26/2024 6:29 AM CDT [facility] ABS. EOSINOPHILS 0.19 0.00 - 0.40 x10'3/uL 02/26/2024 6:29 AM CDT [facility] ABS. BASOPHILS 0.09 0.00 - 0.20 x10'3/uL 02/26/2024 6:29 AM CDT [facility] ABS. IMMATURE GRANULOCYTES 0.11(H) 0.00 - 0.03 x10'3/uL 02/26/2024 6:29 AM CDT [facility] ABS. NUCLEATED RBC'S 0.00 0.00 - 0.01 x10'3/uL 02/26/2024 6:29 AM CDT [facility] NRBC % 0.0 % 02/26/2024 6:29 AM CDT [facility] 02/26/2024 6:17 AM CDT us Carmelita Celis MD LABORATORY Final Result [facility] [address] [place] [address], [phone] * (ABNORMAL) POCT glucose (02/26/2024 5:44 AM CDT) GLUCOSE POC 296(H) 70 - 109 02/26/2024 5:49 AM CDT [facility] 02/26/2024 5:44 AM CDT Carmelita Celis MD POCT ORDERABLES - DEVICE Final Result [facility] [address] [place] [address], [place] [phone] documented in this encounter Visit Diagnoses Diagnosis [...] 122 (Given - Provider: Lauren Courtney, CABRERA) insulin glargine (LANTUS) injection 10 Units 10 [...] RN) documented in this encounter Care Teams Heat Treatment Technician Relationship Specialty Start Date End Date Mery Maxwell MD [address] [place] [phone] PCP - General FAMILY PRACTICE 08/19/23 documented as of this encounter
--- OUTSIDE RECORDS SUMMARY | 2024-06-22 19:02 | XMS_ITS | Encounter Summary ---
Author Organization [facility] Address [address] [place] [address]. [place], [place] [address] [place] [id number] Care Team Providers Care Special Needs Caregiver Name Role Phone Mery Maxwell MD Primary Care Provider [phone]- [phone] Encounter Details Date Type Department Care Team (Latest Contact Info) Description 03/28/2024 Travel Social History Tobacco Use Types Packs/Day Years Used Date Smoking Tobacco: Former Cigarettes 1 15 Smokeless Tobacco: Never Alcohol Use Standard Drinks/Week Comments Not Currently 0 (1 standard drink = 0.6 oz pur e alcohol) [facility] Utilities Answer Date Recorded In the past 12 months has [employer] electric, gas, oil, or water Statusly threatened to shut off services in your [...] any time in the past 12 m [facility], were you homeless or living in a nursing home (including now)? No 03/28/2024 Sex and [...] 5:25 PM CDT Christina Mercado N urse Jockey'S Agent II Active * Question Answer Date of Assessment Author Status Do you have difficulty dressing or bathing? Yes 03/28/2024 5:25 PM CDT Christina Mercado Nurse Jockey'S Agent II Active Because of a physical, mental, or emotional condition, do you have difficulty doing errands alone such as visiting a doctor's office or shopping? Yes 03/28/2024 5:25 PM CDT Roel Mercadotravis, N urse Jockey'S Agent II Active * Are you deaf or do you have serious difficulty hearing Answer Date of Assessment Author Status No 03/28/2024 5:25 PM CDT MercadoNataliiajuju, Nu rse Jockey'S Agent II Active * Are you blind or do you have serious difficulty seeing, even when wearing glasses? Answer Date of Assessment Author Status No 03/28/2024 5:25 PM CDT Christina Mercado Nu rse Jockey'S Agent II Active * Do you have serious difficulty walking or climbing stairs? Answer Date of Assessment Author Status Yes 03/28/2024 5:25 PM CDT Christina Mercado Nu rse Jockey'S Agent II Active * Do you have difficulty dressing or bathing? Answer Date of Assessment Author Status Yes 03/28/2024 5:25 PM CDT Rogelio Nataliiajuju, Nu rse Jockey'S Agent II Active * Because of a physical, mental, or emotional condition, do you have difficulty doing errands alone such as visiting a doctor's office or shopping? Answer Date of Assessment Author Status Yes 03/28/2024 5:25 PM CDT Roel MercadoSachi robles rse Jockey'S Agent II Active documented as of this encounter Mental Status * Question Answer Entry Date Author Status Because of a physical, mental, or emotional condition, do you have serious difficulty concentrating, remembering, or making decisions? No 03/28/2024 5:25 PM CDT Rogelio Nataliiajuju Nurse Jockey'S Agent II Active * Because of a physical, mental, or emotional condition, do you have serious difficulty concentrating, remembering, or making decisions? 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, RN documented as of this encounter Visit Diagnoses Not on filedocumented in this encounter Care Teams Special Needs Caregiver Relationship Specialty Start Date End Date Mery Maxwell MD [address] [place] [phone] PCP - General FAMILY PRACTICE 08/19/23 documented as of this encounter
--- OUTSIDE RECORDS SUMMARY | 2024-06-22 19:02 | XMS_ITS | Encounter Summary ---
Author Organization [facility] Address [address] [place] [address]. [place] [address] [place] [address] Care Team Providers Care Detector Car Operator Name Role Phone Mery Maxwell MD Primary Care Provider [phone]- [phone] Reason for Visit * Reason Onset Date Comments Surgical Clearance 05/10/2024 Encounter Details Date Type Department Care Team (Late st Contact Info) Description 05/10/2024 Telephone [facility] eld [address] [place] [address] Martha Ramirez, ANP[facility] [place] [address] Surgical Clearance Social History Tobacco Use Types Packs/Day Years Used Date Smoking Tobacco: Former Cigarettes 1 15 Smokeless Tobacco: Never Alcohol Use Standard Drinks/Week Comments Not Currently 0 (1 standard drink = 0.6 oz pur e alcohol) [facility] Utilities Answer Date Recorded In the past 12 months has [facility] [employer], gas, oil, or water [employer] threatened to shut off services in your [...] time in the past [address] [facility], were you homeless or living in [...] 03/28/2024 5:25 PM CDT MercadoNataliiaSachi matute rse Harness Repairer II Active * Are you blind or do you have serious difficulty seeing, even when wearing glasses? Answer Date of Assessment Author Status No 03/28/2024 5:25 PM CDT MercadoNataliiajuju Nu rse Harness Repairer II Active * Do you have serious difficulty walking or climbing stairs? Answer Date of Assessment Author Status Yes 03/28/2024 5:25 PM CDT Rogelio Nataliiajuju Nu rse Harness Repairer II Active * Do you have difficulty dressing or bathing? Answer Date of Assessment Author Status Yes 03/28/2024 5:25 PM CDT MercadoNataliiajuju Nu rse Harness Repairer II Active * Because of a physical, mental, or emotional condition, do you have difficulty doing errands alone such as visiting a doctor's office or shopping? Answer Date of Assessment Author Status Yes 03/28/2024 5:25 PM CDT MercadoNataliiaSachi matute rse Harness Repairer II Active documented as of this encounter Mental Status * Because of a physical, mental, or emotional condition, do you have serious difficulty concentrating, remembering, or making decisions? Answer Entry Date Author Status No 03/28/2024 5:25 PM CDT MercadoRoelSachi robles rse Harness Repairer II Active documented in this encounter Progress Notes * Bailey Huynh - 05/16/2024 9:11 AM CST Called the patient and left a msg doesn't need to be seen. That if he has that doctor call with a fax number we can fax over Irina dean. AL WORKER * Bailey Huynh - 05/10/2024 1:17 PM CST Patient called for risk assessment for cataract surgery scheduled on 05/23/[address] John Mason. Patient was seen in Jan. Does he need another appointment or can you please write up a note for the eye doctor? AL WORKER documented in this encounter Plan of Treatment Upcoming Encounters Date Type Department Care Team (Late st Contact Info) Description 07/20/2024 10:30 AM SOCIAL WORKER Office Visit [facility]-[address] [place] [address] Martha Ramirez, [facility]-[address] [address] documented as of this encounter Goals Goal Patient Goal Type Associated Problems Recent Progress Patient-Stated? 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, RN documented as of this encounter Visit Diagnoses Not on filedocumented in this encounter Care Teams Detector Car Operator Relationship Specialty Start Date End Date Mery Maxwell MD [address] [place] [phone] PCP - General FAMILY PRACTICE 08/19/23 documented as of this encounter
--- OUTSIDE RECORDS SUMMARY | 2024-06-22 19:02 | XMS_ITS | Encounter Summary ---
Author Organization [facility] Address [address] [place] [address]. [place] [address] [place] [address] Care Team Providers Care Insurance Billing Specialist Name Role Phone Mery Maxwell MD Primary Care Provider +1- [phone] Encounter Details Date Type Department Care Team (Late st Contact Info) Description 04/04/2024 12:14 PM CDT - 04/04/2024 11:59 PM T Hospital Encounter [facility] [address] [place] [address] [place] [address] Mery Maxwell MD [address] [place] [phone] Discharge Disposition: Home or Self Care (Routine Discharge) Social History Tobacco Use Types Packs/Day Years Used Date Smoking Tobacco: Former Cigarettes 1 15 Smokeless Tobacco: Never Alcohol Use Standard Drinks/Week Comments Not Currently 0 (1 standard drink = 0.6 oz pur e alcohol) [facility] Utilities Answer Date Recorded In the past 12 months has [employer], oil, or water [employer] threatened to shut off services in your [...] any time in the past 12 m [facility], were you homeless or living in a detention (including now)? No 03/28/2024 Sex and Gender [...] 03/28/2024 5:25 PM CDChristina Ware Nu rse Electrolysis Needle Operator II Active * Are you blind or do you have serious difficulty seeing, even when wearing glasses? Answer Date of Assessment Author Status No 03/28/2024 5:25 PM CDChristina Ware Nu rse Electrolysis Needle Operator II Active * Do you have serious difficulty walking or climbing stairs? Answer Date of Assessment Author Status Yes 03/28/2024 5:25 PM CDChristina Ware Nu rse Electrolysis Needle Operator II Active * Do you have difficulty dressing or bathing? Answer Date of Assessment Author Status Yes 03/28/2024 5:25 PM Christina Avila Nu rse Electrolysis Needle Operator II Active * Because of a physical, mental, or emotional condition, do you have difficulty doing errands alone such as visiting a doctor's office or shopping? Answer Date of Assessment Author Status Yes 03/28/2024 5:25 PM CDChristina Ware Nu rse Electrolysis Needle Operator II Active documented as of this encounter Mental Status * Because of a physical, mental, or emotional condition, do you have serious difficulty concentrating, remembering, or making decisions? Answer Entry Date Author Status No 03/28/2024 5:25 PM Christina Avila Nu rse Electrolysis Needle Operator II Active documented in this encounter Medications [...] PEN NEEDLES 31G X 5 MM [facility] [place]/2024 BD VEO INSULIN SYRINGE U/F 31G X 15/64 0.5 ML [facility] [place] [facility] [place]/17/2023 Continuous Glucose Transmitter (DEXCOM G6 TRANSMITTER) [facility] [place]/08/2024 ELIQUIS 5 MG tablet Take 1 [...] st Contact Info) Description 07/20/2024 10:30 AM HELP DESK SUPERVISOR Office Visit [facility] [place] [address] Martha Ramirez, [facility]-[address] [address] documented as of this encounter Goals Goal Patient Goal Type Associated Problems Recent Progress Patient-Stated? 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, RN documented as of this encounter Procedures Procedure Name Priority Date/Time Associated Diagnosis Comments IRON SAT PANEL (IRON,IBC,%SAT) Routine 04/04/2024 11:30 AM CDT CKD (chronic kidney disease) DM (diabetes mellitus) ([facility] HHS/HCC) CHF (congestive heart failure) ([facility] HHS/HCC) COMPREHENSIVE METABOLIC PANEL Routine 04/04/2024 11:30 AM CDT CKD (chronic kidney disease) DM (diabetes mellitus) ([facility] HHS/HCC) CHF (congestive heart failure) ([facility] HHS/HCC) CBC W/DIFF AUTOMATED Routine 04/04/2024 11:30 AM CDT CKD (chronic kidney disease) DM (diabetes mellitus) ([facility] HHS/HCC) CHF (congestive heart failure) ([facility] HHS/HCC) VITAMIN D, 25 OH Routine 04/04/2024 11:3 0 AM CDT CKD (chronic kidney disease) DM (diabetes mellitus) ([facility] HHS/HCC) CHF (congestive heart failure) ([facility] HHS/HCC) documented in this encounter Results * (ABNORMAL) CBC W/DIFF AUTOMATED (04/04/2024 11:30 AM CDT) WBC 7.76 4.00 - 10.80 x10'3/uL 04/04/2024 12:34 PM CDT [facility] RBC 3.61(L) 4.50 - 6.10 x10'6/uL 04/04/2024 12:34 PM CDT [facility] HGB 11.9(L) 13.0 - 18.0 G/DL 04/04/2024 12:34 PM CDT [facility] HCT 36.5(L) 37.0 - 52.0 % 04/04/2024 12:34 PM CDT [facility] MCV 101.1(H) 78.0 - 100.0 FL 04/04/2024 12:34 PM CDT [facility] MCH 33.0(H) 27.0 - 31.0 PG 04/04/2024 12:34 PM CDT [facility] MCHC 32.6(L) 33.0 - 36.0 G/DL 04/04/2024 12:34 PM CDT [facility] RDW 13.5 11.5 - 14.5 % 04/04/2024 12:34 PM CDT [facility] PLT 201 150 - 350 x10'3/uL 04/04/2024 12:34 PM CDT [facility] MPV 10.1 7.4 - 10.4 FL 04/04/2024 12:34 PM CDT [facility] CBC COMMENT NORMAL REFERENCE RANGE NOT ESTABLISHED FOR THE PROPORTIONAL LEUKOCYTE DIFFERENTIAL. 04/04/2024 12:34 PM CDT [facility] NEUTROPHILS % 70.3 % 04/04/2024 12:34 PM CDT [facility] LYMPHOCYTES % 21.0 % 04/04/2024 12:34 PM CDT [facility] MONOCYTES % 5.3 % 04/04/2024 12:34 PM CDT [facility] EOSINOPHILS % 2.3 % 04/04/2024 12:34 PM CDT [facility] BASOPHILS % 0.6 % 04/04/2024 12:34 PM CDT [facility] IMMATURE GRANS % 0.5 % 04/04/20 12:34 PM CDT [facility] NRBC % 0.0 % 04/04/2024 12:34 PM CDT [facility] ABS. NEUTROPHILS 5.45 1.60 - 8.30 x10'3/uL 04/04/2024 12:34 PM CDT [facility] ABS. LYMPHOCYTES 1.63 0.80 - 4.70 x10'3/uL 04/04/2024 12:34 PM CDT [facility] ABS. MONOCYTES 0.41 0.00 - 1.50 x10'3/uL 04/04/2024 12:34 PM CDT [facility] ABS. EOSINOPHILS 0.18 0.00 - 0.40 x10'3/uL 04/04/2024 12:34 PM CDT [facility] ABS. BASOPHILS 0.05 0.00 - 0.20 x10'3/uL 04/04/2024 12:34 PM CDT [facility] ABS. IMMATURE GRANULOCYTES 0.04(H) 0.00 - 0.03 x10'3/uL 04/04/2024 12:34 PM CDT [facility] ABS. NUCLEATED RBC'S 0.00 0.00 - 0.01 x10'3/uL 04/04/2024 12:34 PM CDT [facility] 04/04/2024 11:3 0 AM CDT us Mery Maxwell MD LABORATORY Final Resu lt [facility] [address] [place] [address], * (ABNORMAL) COMPREHENSIVE METABOLIC PANEL (04/04/2024 11:30 AM CDT) SODIUM S/P/B 138 136 - 145 MMOL/L 04/04/2024 12:52 PM CDT [facility] POTASSIUM S/P/B 4.1 3.5 - 5.1 MMOL/L 04/04/2024 12:52 PM CDT [facility] CHLORIDE S/P/B 97(L) 98 - 107 MMOL/L 04/04/2024 12:52 PM CDT [facility] CO2 30.0 21.0 - 32.0 MMOL/L 04/04/2024 12:52 PM CDT [facility] GLUCOSE 202(H) 70 - 99 MG/DL 04/04/2024 12:52 PM CDT [facility] Comment: FASTING GLUCOSE 100 TO 125 MG/DL IS CONSISTENT WITH IMPAIRED FASTING GLUCOSE. FASTING GLUCOSE >125 MG/DL IS CONSISTENT WITH DIABETES. RANDOM GLUCOSE >200 MG/DL WITH HYPERGLYCEMIC SYMPTOMS IS CONSISTENT WITH DIABETES. PER ADA GUIDELINES BUN 63(H) 6 - 24 MG/DL 04/04/2024 12:52 PM CDT [facility] CREATININE S/P/B 7.62(H) 0.70 - 1.30 MG/DL 04/04/2024 12:52 PM T [facility] CALCIUM S/P/B 10.1 8.4 - 10.5 MG/DL 04/04/2024 12:52 PM [facility] BILIRUBIN TOTAL S/P/B 0.6 0.2 - 1.0 MG/DL 04/04/2024 12:52 PM T [facility] Comment: THIS ASSAY IS NOT RECOMMENDED FOR PATIENTS UNDERGOING TREATMENT WITH ELTROMBOPAG DUE TO THE POTENTIAL FOR FALSELY ELEVATED RESULTS. ALKALINE PHOSPHATASE S/P/B 61 45 - 115 U/L 04/04/2024 12:52 PM T [facility] AST 11(L) 15 - 37 U/L 04/04/2024 12:52 PM [facility] ALT 13(L) 16 - 63 U/L 04/04/2024 12:52 PM [facility] TOTAL PROTEIN S/P/B 8.7(H) 6.4 - 8.2 G/DL 04/04/2024 12:52 PM [facility] ALBUMIN S/P/B 3.8 3.4 - 5.0 G/DL 04/04/2024 12:52 PM [facility] ANION GAP 11.0 5.0 - 15.0 MMOL/L 04/04/2024 12:52 PM [facility] OSMOLALITY (CALC) 310 MOSM/KG 024 12:52 PM [facility] Comment:REFERENCE RANGE NOT ESTABLISHED GFR ESTIMATE 8(L) >89 ML/MIN/1. 73 M2 04/04/2024 12:52 PM [facility] GFR NOTES GFR REFERENCE S: 04/04/2024 12:52 PM [facility] Comment: THE ESTIMATED GFR IS [...] LABORATORY Final Resu lt Performing Organization Address City/[facility]/ZIP Co de Phone Number [facility] [address] [place] [address], [place] [phone] * VITAMIN D, 25 OH (04/04/2024 11:30 AM CDT) VITAMIN D 25 HYDROXY TOTAL S/P/B 27.0 20.0 - 50.0 NG/ML 04/05/2024 12:22 PM CDT [facility] Comment: <10 ng/mL (Severe deficiency) 10 TO 19 ng/mL (Mild to Moderate deficiency) 20 TO 50 ng/mL (Optimum levels) 51 TO 80 ng/mL (Increased risk of hypercalciuria) >80 ng/mL (Toxicity possible) 04/04/2024 11:3 0 AM CDT us Mery Maxwell MD LABORATORY Final Resu lt [facility] [address] [place] [address], [place] [phone] * (ABNORMAL) IRON SATURATION PNL (FE/TIBC/SAT) (04/04/2024 11:30 AM CDT) IRON 85 65 - 175 MCG/DL 04/04/2024 12:50 PM CDT [facility] IRON BINDING CAPACITY 226(L) 250 - 450 MCG/DL 04/04/2024 12:50 PM CDT [facility] IRON SATURATION 38 % 12:50 PM CDT [facility] Comment:REFERENCE RANGE NOT ESTABLISHED 04/04/2024 11:3 0 AM CDT us Mery Maxwell MD LABORATORY Final Resu lt [facility] [address] [place] [address], documented in this encounter Visit Diagnoses Diagnosis CKD (chronic kidney disease) Chronic kidney disease, unspecified DM (diabetes mellitus) ([facility]) Type II or unspecified type diabetes mellitus without mention of complication, not stated as uncontrolled CHF (congestive heart failure) ([facility]) Congestive heart failure, unspecified documented in this encounter Care Teams Insurance Billing Specialist Relationship Specialty Start Date End Date Mery Maxwell MD [address] [place] [phone] PCP - General FAMILY PRACTICE 08/19/23 documented as of this encounter
--- OUTSIDE RECORDS SUMMARY | 2024-06-22 19:02 | XMS_ITS | Encounter Summary ---
Author Organization [facility] Address [address] [place] [address]. [place] [address] [place] [address] Care Team Providers Care Fruit Sprayer Name Role Phone Mery Maxwell MD Primary Care Provider +1- [phone] Reason for Visit * Reason Comments Breathing Problem Encounter Details Date Type Department Care Team (Late st Contact Info) Description 02/25/2024 3:41 PM CDT - 02/25/2024 9:34 PM CDT Emergency [facility] [address] [place] [address] iNcholas Oakes, DO [address] [place], [place] [id number] Breathing Problem Discharge Disposition: Home or Self Care (Routine Discharge) Social History Tobacco Use Types Packs/Day Years Used Date Smoking Tobacco: Former Cigarettes 1 15 Smokeless Tobacco: Never Alcohol Use Standard Drinks/Week Comments Not Currently 0 (1 standard drink = 0.6 oz pur e alcohol) [facility] Utilities Answer Date Recorded In the past 12 months has [employer] gas, oil, or water [employer] threatened to shut off services in your [...] any time in the past 12 m [facility], were you homeless or living in a group home (including now)? No 02/26/2024 Sex and Gender [...] * Shortness of Breath (Dyspnea) Discharge Instructions (Mauritanian) documented in this encounter Medications at Time [...] Pt states they took me home from [facility] yesterday . Rn copywriter spoke with Roger from [facility]. Roger states service will take pt home but has to sign form that ifhis insurance denies to pay he will be responsible for the cost. Pt states will sign form. * Obi Stauffer RN - 02/25/2024 3:52 PM CDT P.t. arrives to ER by [facility] with c/o shortness of breath. P.t. states they were at dialysis today and had 3.4 k removed when P.t. became short of breath and light headed. P.t. had dialysisyesterday and was sent to [facility] for same issue. P.t. denies any chest [...] HISTORY: Past Medical History: Diagnosis Date A-fib (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 [address] EXAM: XR CHEST PORTABLE DATE: 02/25/2024 1609 [...] st Contact Info) Description 07/20/2024 10:30 AM TRANSIT BUS DRIVER Office Visit [facility] [place] [address] Martha Ramirez, [facility] [address] documented as of this encounter Goals Goal [...] 5:01 PM Narrative 02/25/2024 5:03 PM CDT [facility] [address] [facility] [place] [address] EXAM: XR CHEST PORTABLE DATE: 02/25/2024 ?? 1609 hours Comparison 12/31/2023 INDICATION: Shortness of breath, dizziness, and weakness for one month. TECHNIQUE: One view FINDINGS: Normal heart and pulmonary vessel size. ??The lungs are clear. ??No pleural effusion. ??No acute bone findings. Procedure Note Kory Juan MD - 02/25/2024 [facility] [address] [place] [address] EXAM: XR CHEST PORTABLE DATE: 02/25/2024 1609 [...] - 145 MMOL/L 02/25/2024 4:46 PM CDT [facility] POTASSIUM S/P/B 3.7 3.5 - 5.1 MMOL/L 02/25/2024 4:46 PM CDT [facility] CHLORIDE S/P/B 95(L) 98 - 107 MMOL/L 02/25/2024 4:46 PM T [facility] CO2 29.6 21.0 - 32.0 MMOL/L 02/25/2024 4:46 PM [facility] GLUCOSE 204(H) 70 - 99 MG/DL 02/25/2024 4:46 PM T [facility] Comment: FASTING GLUCOSE 100 TO 125 MG/DL IS CONSISTENT WITH IMPAIRED FASTING GLUCOSE. FASTING GLUCOSE >125 MG/DL IS CONSISTENT WITH DIABETES. RANDOM GLUCOSE >200 MG/DL WITH HYPERGLYCEMIC SYMPTOMS IS CONSISTENT WITH DIABETES. PER ADA GUIDELINES BUN 31(H) 6 - 24 MG/DL 02/25/2024 4:46 PM T [facility] CREATININE S/P/B 4.88(H) 0.70 - 1.30 MG/DL 02/25/2024 4:46 PM T [facility] CALCIUM S/P/B 9.7 8.4 - 10.5 MG/DL 02/25/2024 4:46 PM [facility] BILIRUBIN TOTAL S/P/B 0.5 0.2 - 1.0 MG/DL 02/25/2024 4:46 PM [facility] Comment: THIS ASSAY IS NOT RECOMMENDED FOR PATIENTS UNDERGOING TREATMENT WITH ELTROMBOPAG DUE TO THE POTENTIAL FOR FALSELY ELEVATED RESULTS. ALKALINE PHOSPHATASE S/P/B 65 45 - 115 U/L 02/25/2024 4:46 PM T [facility] AST 12(L) 15 - 37 U/L 02/25/2024 4:46 PM [facility] ALT 16 16 - 63 U/L 02/25/2024 4:46 PM T [facility] TOTAL PROTEIN S/P/B 9.2(H) 6.4 - 8.2 G/DL 02/25/2024 4:46 PM T [facility] ALBUMIN S/P/B 4.0 3.4 - 5.0 G/DL 02/25/2024 4:46 PM T [facility] ANION GAP 11.4 5.0 - 15.0 MMOL/L 02/25/2024 4:46 PM CDT [facility] OSMOLALITY (CALC) 294 MOSM/KG 024 4:46 PM CDT [facility] Comment:REFERENCE RANGE NOT ESTABLISHED GFR ESTIMATE 14(L) >89 ML/MIN/1. 73 M2 02/25/2024 4:46 PM CDT [facility] GFR NOTES GFR REFERENCE S: 02/25/2024 4:46 PM CDT [facility] Comment: THE ESTIMATED GFR IS [...] Nicholas Oakes DO LABORATORY Final Res ult [facility] [address] [place] [address], * (ABNORMAL) CBC W/DIFF AUTOMATED (02/25/2024 4:22 PM CDT) WBC 8.26 4.00 - 10.80 x10'3/uL 02/25/2024 4:30 PM CDT [facility] RBC 3.97(L) 4.50 - 6.10 x10'6/uL 02/25/2024 4:30 PM CDT [facility] HGB 12.8(L) 13.0 - 18.0 G/DL 02/25/2024 4:30 PM CDT [facility] HCT 38.5 37.0 - 52.0 % 02/25/2024 4:30 PM CDT [facility] MCV 97.0 78.0 - 100.0 FL 02/25/2024 4:30 PM CDT [facility] MCH 32.2(H) 27.0 - 31.0 PG 02/25/2024 4:30 PM CDT [facility] MCHC 33.2 33.0 - 36.0 G/DL 02/25/2024 4:30 PM CDT [facility] RDW 12.9 11.5 - 14.5 % 02/25/2024 4:30 PM CDT [facility] PLT 202 150 - 350 x10'3/uL 02/25/2024 4:30 PM CDT [facility] MPV 9.9 7.4 - 10.4 FL 02/25/2024 4:30 PM CDT [facility] CBC COMMENT NORMAL REFERENCE RANGE NOT ESTABLISHED FOR THE PROPORTIONAL LEUKOCYTE DIFFERENTIAL. 02/25/2024 4:30 PM CDT [facility] NEUTROPHILS % 62.5 % 02/25/2024 4:30 PM CDT [facility] LYMPHOCYTES % 26.6 % 02/25/2024 4:30 PM CDT [facility] MONOCYTES % 6.7 % 02/25/2024 4:30 PM CDT [facility] EOSINOPHILS % 2.2 % 02/25/2024 4:30 PM CDT [facility] BASOPHILS % 0.8 % 02/25/2024 4:30 PM CDT [facility] IMMATURE GRANS % 1.2 % 02/25/20 4:30 PM CDT [facility] NRBC % 0.0 % 02/25/2024 4:30 PM CDT [facility] ABS. NEUTROPHILS 5.16 1.60 - 8.30 x10'3/uL 02/25/2024 4:30 PM CDT [facility] ABS. LYMPHOCYTES 2.20 0.80 - 4.70 x10'3/uL 02/25/2024 4:30 PM CDT [facility] ABS. MONOCYTES 0.55 0.00 - 1.50 x10'3/uL 02/25/2024 4:30 PM CDT [facility] ABS. EOSINOPHILS 0.18 0.00 - 0.40 x10'3/uL 02/25/2024 4:30 PM CDT [facility] ABS. BASOPHILS 0.07 0.00 - 0.20 x10'3/uL 02/25/2024 4:30 PM CDT [facility] ABS. IMMATURE GRANULOCYTES 0.10(H) 0.00 - 0.03 x10'3/uL 02/25/2024 4:30 PM CDT [facility] ABS. NUCLEATED RBC'S 0.00 0.00 - 0.01 x10'3/uL 02/25/2024 4:30 PM CDT [facility] 02/25/2024 4:22 PM CDT us Nicholas Oakes DO LABORATORY Final Res ult [facility] [address] [place] [address], * ECG 12 lead (02/25/2024 4:13 PM CDT) 02/25/2024 4:13 PM CDT Narrative [facility] - 02/26/2024 5:24 PM CDT ? [facility] ?[address] [place] ??[address] ? Test Date: ?2024-02-25 Pat Name: ? VINAY WILBURN ?Department: ?? 3 ? Room: ? EXAM 606 Gender: ? Male ? Joy Operator Helper: ?? : ?1970 ? Requested By: NICHOALS VITALIYJERAMIE Order Number: [id number] ? Reading MD: ?? Timbo Nallamothu ? Measurements Intervals ?[place] ? Rate: ? 69 ? P: ?56 CA: ? 187 ?QRS: ?95 QRSD: ? 101 ?T: ?14 QT: ? 455 ? QTc: ?488 ? Interpretive Statements SINUS RHYTHM INDETERMINATE AXIS PROLONGED QT INTERVAL Procedure Note Timbo Valdez MD - 02/26/2024 [facility] [address] [place] [address] Test Date: 2024-02-25 Pat Name: VINAY WILBURN Department: 3 Room: EXAM 606 Gender: Male Joy Operator Helper: : 1970 Requested By: NICHOLAS OAKES Order Number: [id number] Reading MD: Jonnathan Measurements Intervals [place] Rate: 69 P: 56 CA: 187 QRS: 95 QRSD: 101 T: 14 QT: 455 QTc: 488 Interpretive Statements SINUS RHYTHM INDETERMINATE AXIS PROLONGED QT INTERVAL us Nicholas Oakes DO ECG ORDERABLES Final Res ult [facility] * EKG Reading (02/25/2024 4:13 [...] changes. ??Prolonged QT. us Nicholas Oakes DO [facility] Final Result documented in [...] 1557 (Given - Provid er: Kerline Kowalski, EXHAUSTER) documented in this encounter Care Teams Fruit Sprayer Relationship Specialty Start Date End Date Mery Maxwell MD [address] [place] [phone] PCP - General FAMILY PRACTICE 08/19/23 documented as of this encounter
--- OUTSIDE RECORDS SUMMARY | 2024-06-22 19:02 | XMS_ITS | Encounter Summary ---
Author Organization [facility] Address [address] [place] [address]. [place], [place] [address] [place] [address] Care Team Providers Care Stripper And Opaquer Apprentice Name Role Phone Mery Maxwell MD Primary Care Provider +1- [phone] Encounter Details Date Type Department Care Team (Latest Contact Info) Description 02/25/2024 Travel Social History Tobacco Use Types Packs/Day Years Used Date Smoking Tobacco: Former Cigarettes 1 15 Smokeless Tobacco: Never Alcohol Use Standard Drinks/Week Comments Not Currently 0 (1 standard drink = 0.6 oz pur e alcohol) [facility] Utilities Answer Date Recorded In the past 12 months has [employer] electric, gas, oil, or water [employer] threatened to shut off services in your [...] any time in the past 12 m [facility], were you homeless or living in [...] Author Status Yes 12/31/2023 10:19 PM Kathy Mofftet RN Active * Do you have difficulty [...] st Contact Info) Description 07/20/2024 10:30 AM 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 RN documented as of this encounter Visit Diagnoses Not on filedocumented in this encounter Care Teams Stripper And Opaquer Apprentice Relationship Specialty Start Date End Date Mery Maxwell MD [address] [place] [phone] PCP - General FAMILY PRACTICE 08/19/23 documented as of this encounter
--- OUTSIDE RECORDS SUMMARY | 2024-06-22 19:02 | XMS_ITS | Encounter Summary ---
Author Organization [facility] Address [address] [place] [address]. [place], [place] [address] [place] [address] Care Team Providers Care Repair Armature Winder Name Role Phone Mery Maxwell MD Primary Care Provider +1- [phone] Encounter Details Date Type Department Care Team (Latest Contact Info) Description 05/28/2024 Travel Social History Tobacco Use Types Packs/Day Years Used Date Smoking Tobacco: Former Cigarettes 1 15 Smokeless Tobacco: Never Alcohol Use Standard Drinks/Week Comments Not Currently 0 (1 standard drink = 0.6 oz pur e alcohol) [facility] Utilities Answer Date Recorded In the past 12 months has [employer] electric, gas, oil, or water [employer] threatened to shut off services in your [...] any time in the past 12 m [facility], were you homeless or living in a usp (including now)? No 03/28/2024 Sex and Gender [...] 5:25 PM CDT Christina Mercado Nu rse Blasting Cap Assembler II Active * Are you blind or do you have serious difficulty seeing, even when wearing glasses? Answer Date of Assessment Author Status No 03/28/2024 5:25 PM CDT Christina Mercado Nu rse Blasting Cap Assembler II Active * Do you have serious difficulty walking or climbing stairs? Answer Date of Assessment Author Status Yes 03/28/2024 5:25 PM CDT Christina Mercado Nu rse Blasting Cap Assembler II Active * Do you have difficulty dressing or bathing? Answer Date of Assessment Author Status Yes 03/28/2024 5:25 PM CDT Christina Mercado Nu rse Blasting Cap Assembler II Active * Because of a physical, mental, or emotional condition, do you have difficulty doing errands alone such as visiting a doctor's office or shopping? Answer Date of Assessment Author Status Yes 03/28/2024 5:25 PM CDT Christina Mercado Nu rse Blasting Cap Assembler II Active documented as of this encounter Mental Status * Because of a physical, mental, or emotional condition, do you have serious difficulty concentrating, remembering, or making decisions? Answer Entry Date Author Status No 03/28/2024 5:25 PM CDT Christina Mercado Nu rse Blasting Cap Assembler II Active documented in this encounter Plan of Treatment Upcoming Encounters Date Type Department Care Team (Late st Contact Info) Description 07/20/2024 10:30 AM BULLET CASTING OPERATOR Office Visit [facility] [phone] Martha Ramirez, [place] [address] documented as of this encounter Goals Goal Patient Goal Type Associated Problems Recent Progress Patient-Stated? 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 RN documented as of this encounter Visit Diagnoses Not on filedocumented in this encounter Care Teams Repair Armature Winder Relationship Specialty Start Date End Date Mery Maxwell MD [address] [place] [phone] PCP - General FAMILY PRACTICE 08/19/23 documented as of this encounter
--- OUTSIDE RECORDS SUMMARY | 2024-06-22 19:02 | XMS_ITS | Encounter Summary ---
Author Organization [facility] Address [address] [place] [address]. [place] [address] [place] [address] Care Team Providers Care Sharepoint Consultant Name Role Phone Mery Maxwell MD Primary Care Provider +1- [phone] Reason for Visit * Reason Comments Hypertension Encounter Details Date Type Department Care Team (Late st Contact Info) Description 05/28/2024 12:25 AM GUEST SERVICES REPRESENTATIVE - 05/28/2024 3:32 AM [facility] Emergency [place] [facility] [address] [place] [address] Bishop Abdi, DO [address] [place], [place] [address] Hypertension Discharge Disposition: Home or Self Care (Routine Discharge) Social History Tobacco Use Types Packs/Day Years Used Date Smoking Tobacco: Former Cigarettes 1 15 Smokeless Tobacco: Never Alcohol Use Standard Drinks/Week Comments Not Currently 0 (1 standard drink = 0.6 oz pur e alcohol) [facility] Utilities Answer Date Recorded In the past 12 months has e [employer], gas, oil, or water [employer] threatened to [...] place to sleep or slept in a fdc (including now)? Patient declined 09/01/2023 Housing Stability [...] any time in the past 12 m [facility], were you homeless or living in a fdc (including now)? No 03/28/2024 Sex and Gender Information Value Date Recorded Sex Assigned at Not on file Legal Sex Male 6:24 PM CDT Gender Identity Not on file Sexual Orientation Not on file documented as of this encounter Last Filed Vital Signs Vital Sign Reading Time Taken Comments Blood Pressure 195/92 05/28/2024 3:00 AM GUEST SERVICES REPRESENTATIVE Pulse 82 05/28/2024 3:00 AM GUEST SERVICES REPRESENTATIVE Temperature 37.1 ??C (98.7 ??F) 05/28/2024 12:[address] Respiratory Rate 27 05/28/2024 3:00 AM GUEST SERVICES REPRESENTATIVE Oxygen Saturation 95% 05/28/2024 3:00 AM GUEST SERVICES REPRESENTATIVE Inhaled Oxygen Concentration - - Weight 122.5 kg (270 lb) 05/28/2024 12:32 AM GUEST SERVICES REPRESENTATIVE Height 188 cm (6' 2 ) 05/28/2024 12:32 AM GUEST SERVICES REPRESENTATIVE Body Mass Index 34.67 05/28/2024 12:32 AM GUEST SERVICES REPRESENTATIVE documented in this encounter Functional Status * Are you deaf or do you have serious difficulty hearing Answer Date of Assessment Author Status No 03/28/2024 5:25 PM CDT Christina Mercado Nu rse Crm Technical Lead II Active * Are you blind or do you have serious difficulty seeing, even when wearing glasses? Answer Date of Assessment Author Status No 03/28/2024 5:25 PM CDT Christina Mercado Nu rse Crm Technical Lead II Active * Do you have serious difficulty walking or climbing stairs? Answer Date of Assessment Author Status Yes 03/28/2024 5:25 PM CDT Christina Mercado Nu rse Crm Technical Lead II Active * Do you have difficulty dressing or bathing? Answer Date of Assessment Author Status Yes 03/28/2024 5:25 PM CDT Christina Mercado Nu rse Crm Technical Lead II Active * Because of a physical, mental, or emotional condition, do you have difficulty doing errands alone such as visiting a doctor's office or shopping? Answer Date of Assessment Author Status Yes 03/28/2024 5:25 PM CDT Christina Mercado Nu rse Crm Technical Lead II Active documented as of this encounter Mental Status * Because of a physical, mental, or emotional condition, do you have serious difficulty concentrating, remembering, or making decisions? Answer Entry Date Author Status No 03/28/2024 5:25 PM CDT Christina Mercado Nu rse Crm Technical Lead II Active documented in this encounter Discharge Instructions * Discharge Instructions* Bishop Abdi, - 05/28/2024 2:41 AM GUEST SERVICES REPRESENTATIVE Continue current medications. Take carvedilol as needed based on previous instructions. T SERVICES REPRESENTATIVE * Attachments The following attachments cannot be sent through Care Everywhere. * High Blood Pressure Discharge Instructions (Cook Islander) documented in this encounter Medications at Time [...] MINI PEN NEEDLES 31G X 5 MM [facility] 03/02/2024 BD VEO INSULIN SYRINGE U/F 31G X 15/64 0.5 ML [facility] 11/17/2023 Continuous Glucose Transmitter (DEXCOM G6 TRANSMITTER) [facility] 03/08/2024 ELIQUIS 5 MG tablet Take 1 [...] Peter RN - 05/28/2024 3:15 AM CST [facility] calls and denies patient transfer due to the lack of medical necessity. T SERVICES REPRESENTATIVE * Christine Peter RN - 05/28/2024 3:10 AM CST Provider speaks with patient and explains that the patient does not meet medical necessity. Provider requests staff to call [facility] for confirmation on their ability to transfer the patient. T SERVICES REPRESENTATIVE * Christine Peter RN - 05/28/2024 2:45 AM CST Patient requesting ambulance for transport home, but patient does not meet medically neccesity. Patient requests to talk with provider. T SERVICES REPRESENTATIVE * Bishop Abdi DO - 05/28/2024 12:40 [...] History provided by: Patient and EMS personnel rn transition used: No Hypertension Medical History ALLERGIES: Review [...] MINI PEN NEEDLES 31G X 5 MM [facility] 03/02/24 Default History Genericprovider BD VEO INSULIN SYRINGE U/F 31G X 15/64 0.5 ML [facility] 11/17/23 Default History Genericprovider Continuous Glucose Transmitter (DEXCOM G6 TRANSMITTER) [facility] 03/08/24 Default History Genericprovider ELIQUIS 5 MG [...] HISTORY: Past Medical History: Diagnosis Date A-fib ([facility]) Constipation Diabetes mellitus ([facility]/HCC) ESRD (end stage renal disease) ([facility]) GERD (gastroesophageal reflux disease) Gout, unspecified High cholesterol Neuropathy 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 [address] Test Date: 2024-05-28 Pat Name: VINAY WILBURN Department: 3 Room: EXAM 606 Gender: Male Pin Cleaner: EDSFL : 1970 Requested By: BISHOP ABDI Order Number: [id number] Reading MD: Measurements Intervals [place] Rate: 75 P: 54 [place]: 188 QRS: -22 QRSD: 113 T: 53 [...] XR CHEST PORTABLE Final Result by User, [id number] (05/28 127) [address] [place] [address] INDICATION: dyspnea COMPARISON: Chest CTA and radiograph, [...] hypertension (Primary) ESRD (end stage renal disease) ([facility]) Disposition: Discharge I, Sami ChavezO., dictated portions of this note using Ixtens speech recognition software. Occasional wrong word or sound-alike substitutions may have occurred due to the inherent limitationsof voice recognition software. Please read the chart carefully and recognize, using context, where s ubstitutions may have occurred. Bishop Abdi DO 05/28/[address]241 T SERVICES REPRESENTATIVE * Mikayla Appiah RN - 05/28/2024 12:32 AM CST Pt presents to ED via [facility] with c/o high blood pressure. Pt states prior to arrival he had a slight headache so he took his blood pressure and found it to be elevated. Pt also c/o lightheadedness and feels slightly SOB. T SERVICES REPRESENTATIVE documented in this encounter Plan of Treatment Upcoming Encounters Date Type Department Care Team (Late st Contact Info) Description 07/20/2024 10:30 AM GUEST SERVICES REPRESENTATIVE Office Visit [facility] [place] [address] [place] [address] Martha Ramirez, [facility] [address] [place] [address] documented as of this encounter Goals Goal Patient Goal Type Associated Problems Recent Progress Patient-Stated? 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 RN documented as of this encounter Procedures Procedure Name Priority Date/Time Associated Diagnosis Comments TROPONIN, QUANT STAT 05/28/2024 2:30 AM GUEST SERVICES REPRESENTATIVE XR CHEST PORTABLE STAT 05/28/2024 1:0 8 AM GUEST SERVICES REPRESENTATIVE ECG 12-LEAD Routine 05/28/2024 12:53 AM GUEST SERVICES REPRESENTATIVE COMPREHENSIVE METABOLIC PANEL STAT 05/28/2024 12:50 AM GUEST SERVICES REPRESENTATIVE CBC W/DIFF AUTOMATED STAT 05/28/2024 12:50 AM GUEST SERVICES REPRESENTATIVE TROPONIN, QUANT STAT 05/28/2024 12:50 AM GUEST SERVICES REPRESENTATIVE documented in this encounter Results * TROPONIN, QUANT (05/28/2024 2:30 AM GUEST SERVICES REPRESENTATIVE) TROPONIN I HIGH SENSITIVITY 24 0 - 76 ng/L 05/28/2024 3:01 AM GUEST SERVICES REPRESENTATIVE [facility] 05/28/2024 2:30 AM GUEST SERVICES REPRESENTATIVE Bishop Abdi DO LABORATORY Final Result [facility] [address] [place] [address], * XR CHEST PORTABLE (05/28/2024 1:08 AM GUEST SERVICES REPRESENTATIVE) Anatomical Region Laterality Modality Chest Radiographic Susannah ging 05/28/2024 1:23 AM GUEST SERVICES REPRESENTATIVE Impressions 05/28/2024 1:26 AM GUEST SERVICES REPRESENTATIVE IMPRESSION: Mild pulmonary vascular congestion. Referred By: ?? Interpreted By: Larry Arevalo MD, 05/28/2024 1:23 AM Narrative 05/28/2024 1:26 AM GUEST SERVICES REPRESENTATIVE [facility] [address] [place] [address] INDICATION: dyspnea COMPARISON: Chest CTA and radiograph, 28 Mar 2024 TECHNIQUE: Single AP radiographic image of the chest FINDINGS: No pneumothorax or pleural effusion. No focal airspace consolidation. Mild pulmonary vascular congestion. Cardiomediastinal silhouette within normal limits. No acute osseous abnormality. Procedure Note Larry Arevalo MD - 05/28/2024 [facility] [address] [place] [address] INDICATION: dyspnea COMPARISON: Chest CTA and radiograph, [...] * ECG 12 lead (05/28/2024 12:53 AM GUEST SERVICES REPRESENTATIVE) 05/28/2024 12:5 3 AM GUEST SERVICES REPRESENTATIVE Narrative [facility] - 05/28/2024 6:32 AM GUEST SERVICES REPRESENTATIVE ? [facility] ?[address] [place] ??[address] ? Test Date: ?2024-05-28 Pat Name: ? VINAY WILBURN ?Department: ?? 3 ? Room: ? EXAM 606 Gender: ? Male ? Pin Cleaner: ?? EDSFL : ?1970 ? Requested By: BISHOP WAGNON Order Number: [id number] ? Reading MD: ?? Effie Loja ? Measurements Intervals ?[place] ? Rate: ? 75 ? P: ?54 [place]: ? 188 ?QRS: ?-22 QRSD: ? 113 ?T: ?53 QT: ? 434 ? QTc: ?487 ? Interpretive Statements SINUS RHYTHM POSSIBLE LEFT ATRIAL ENLARGEMENT BORDERLINE LEFT AXIS DEVIATION MODERATE INTRAVENTRICULAR CONDUCTION DELAY PROLONGED QT INTERVAL T SERVICES REPRESENTATIVE Procedure Note Effie Loja MD - 05/28/2024 [address] [place] [address] Test Date: 2024-05-28 Pat Name: VINAY WILBURN Department: 3 Room: EXAM 606 Gender: Male Pin Cleaner: EDSFL : 1970 Requested By: BISHOP ABDI Order Number: [id number] Reading MD: Effie Loja Measurements Intervals [place] Rate: 75 P: 54 [place]: 188 QRS: -22 QRSD: 113 T: 53 QT: 434 QTc: 487 Interpretive Statements SINUS RHYTHM POSSIBLE LEFT ATRIAL ENLARGEMENT BORDERLINE LEFT AXIS DEVIATION MODERATE INTRAVENTRICULAR CONDUCTION DELAY PROLONGED QT INTERVAL T SERVICES REPRESENTATIVE us Bishop Abdi DO ECG ORDERABLES Final Result Performing Organization Address City/[facility]/ZIP Co de Phone Number [facility] * TROPONIN, QUANT (05/28/2024 12:50 AM GUEST SERVICES REPRESENTATIVE) Pathologist [facility] TROPONIN I HIGH SENSITIVITY 24 0 - 76 ng/L 05/28/2024 1:13 AM GUEST SERVICES REPRESENTATIVE [facility] 05/28/2024 12:5 0 AM GUEST SERVICES REPRESENTATIVE us Bishop Abdi DO LABORATORY Final Result Performing Organization Address [facility]/ZIP Co de Phone Number [facility] [place] [address], * (ABNORMAL) COMPREHENSIVE METABOLIC PANEL (05/28/2024 12:50 AM GUEST SERVICES REPRESENTATIVE) Pathologist [facility] SODIUM S/P/B 137 136 - 145 MMOL/L 05/28/2024 1:13 AM GUEST SERVICES REPRESENTATIVE [facility] POTASSIUM S/P/B 3.6 3.5 - 5.1 MMOL/L 05/28/2024 1:13 AM [facility] CHLORIDE S/P/B 100 98 - 107 MMOL/L 05/28/2024 1:13 AM [facility] CO2 26.9 21.0 - 32.0 MMOL/L 05/28/2024 1:13 AM [facility] GLUCOSE 194(H) 70 - 99 MG/DL 05/28/2024 1:13 AM [facility] Comment: FASTING GLUCOSE 100 TO 125 MG/DL IS CONSISTENT WITH IMPAIRED FASTING GLUCOSE. FASTING GLUCOSE >125 MG/DL IS CONSISTENT WITH DIABETES. RANDOM GLUCOSE >200 MG/DL WITH HYPERGLYCEMIC SYMPTOMS IS CONSISTENT WITH DIABETES. PER ADA GUIDELINES BUN 41(H) 6 - 24 MG/DL 05/28/2024 1:13 AM [facility] CREATININE S/P/B 4.38(H) 0.70 - 1.30 MG/DL 05/28/2024 1:13 AM [facility] CALCIUM S/P/B 8.8 8.4 - 10.5 MG/DL 05/28/2024 1:13 AM [facility] BILIRUBIN TOTAL S/P/B 0.3 0.2 - 1.0 MG/DL 05/28/2024 1:13 AM [facility] Comment: THIS ASSAY IS NOT RECOMMENDED FOR PATIENTS UNDERGOING TREATMENT WITH ELTROMBOPAG DUE TO THE POTENTIAL FOR FALSELY ELEVATED RESULTS. ALKALINE PHOSPHATASE S/P/B 64 45 - 115 U/L 05/28/2024 1:13 AM [facility] AST 10(L) 15 - 37 U/L 05/28/2024 1:13 AM [facility] ALT 12(L) 16 - 63 U/L 05/28/2024 1:13 AM [facility] TOTAL PROTEIN S/P/B 7.0 6.4 - 8.2 G/DL 05/28/2024 1:13 AM [facility] ALBUMIN S/P/B 3.1(L) 3.4 - 5.0 G/DL 05/28/2024 1:13 AM [facility] ANION GAP 10.1 5.0 - 15.0 MMOL/L 05/28/2024 1:13 AM GUEST SERVICES REPRESENTATIVE [facility] OSMOLALITY (CALC) 299 MOSM/KG 024 1:13 AM GUEST SERVICES REPRESENTATIVE [facility] Comment:REFERENCE RANGE NOT ESTABLISHED GFR ESTIMATE 15(L) >89 ML/MIN/1. 73 M2 05/28/2024 1:13 AM GUEST SERVICES REPRESENTATIVE [facility] GFR NOTES GFR REFERENCE S: 05/28/2024 1:13 AM GUEST SERVICES REPRESENTATIVE [facility] Comment: THE ESTIMATED GFR [...] <15 ml/min/1.73 m2 05/28/2024 12:5 0 AM GUEST SERVICES REPRESENTATIVE us Bishop Abdi DO LABORATORY Final Result [facility] [address] [place] [address], * (ABNORMAL) CBC W/DIFF AUTOMATED (05/28/2024 12:50 AM GUEST SERVICES REPRESENTATIVE) WBC 5.64 4.00 - 10.80 x10'3/uL 05/28/2024 12:56 AM GUEST SERVICES REPRESENTATIVE [facility] RBC 3.05(L) 4.50 - 6.10 x10'6/uL 05/28/2024 12:56 AM GUEST SERVICES REPRESENTATIVE [facility] HGB 10.1(L) 13.0 - 18.0 G/DL 05/28/2024 12:56 AM GUEST SERVICES REPRESENTATIVE [facility] HCT 31.4(L) 37.0 - 52.0 % 05/28/2024 12:56 AM GUEST SERVICES REPRESENTATIVE [facility] MCV 103.0(H) 78.0 - 100.0 FL 05/28/2024 12:56 AM [facility] MCH 33.1(H) 27.0 - 31.0 PG 05/28/2024 12:56 AM [facility] MCHC 32.2(L) 33.0 - 36.0 G/DL 05/28/2024 12:56 AM [facility] RDW 13.7 11.5 - 14.5 % 05/28/2024 12:56 AM [facility] PLT 166 150 - 350 x10'3/uL 05/28/2024 12:56 AM [facility] MPV 9.3 7.4 - 10.4 FL 05/28/2024 12:56 AM [facility] CBC COMMENT NORMAL REFERENCE RANGE NOT ESTABLISHED FOR THE PROPORTIONAL LEUKOCYTE DIFFERENTIAL. 05/28/2024 12:56 AM [facility] NEUTROPHILS % 57.9 % 05/28/2024 12:56 AM [facility] LYMPHOCYTES % 30.1 % 05/28/2024 12:56 AM [facility] MONOCYTES % 7.8 % 05/28/2024 12:56 AM [facility] EOSINOPHILS % 3.0 % 05/28/2024 12:56 AM [facility] BASOPHILS % 0.7 % 05/28/2024 12:56 AM [facility] IMMATURE GRANS % 0.5 % 05/28/20 12:56 AM [facility] NRBC % 0.0 % 05/28/2024 12:56 AM [facility] ABS. NEUTROPHILS 3.26 1.60 - 8.30 x10'3/uL 05/28/2024 12:56 AM [facility] ABS. LYMPHOCYTES 1.70 0.80 - 4.70 x10'3/uL 05/28/2024 12:56 AM [facility] ABS. MONOCYTES 0.44 0.00 - 1.50 x10'3/uL 05/28/2024 12:56 AM GUEST SERVICES REPRESENTATIVE [facility] ABS. EOSINOPHILS 0.17 0.00 - 0.40 x10'3/uL 05/28/2024 12:56 AM GUEST SERVICES REPRESENTATIVE [facility] ABS. BASOPHILS 0.04 0.00 - 0.20 x10'3/uL 05/28/2024 12:56 AM GUEST SERVICES REPRESENTATIVE [facility] ABS. IMMATURE GRANULOCYTES 0.03 0.00 - 0.03 x10'3/uL 05/28/2024 12:56 AM GUEST SERVICES REPRESENTATIVE [facility] ABS. NUCLEATED RBC'S 0.00 0.00 - 0.01 x10'3/uL 05/28/2024 12:56 AM GUEST SERVICES REPRESENTATIVE [facility] 05/28/2024 12:5 0 AM GUEST SERVICES REPRESENTATIVE Bishop Abdi DO LABORATORY Final Result [facility] [address] [place] [address], documented in this encounter Visit Diagnoses Diagnosis Primary hypertension- Primary Unspecified essential hypertension ESRD (end stage renal disease) ([facility]) End stage renal disease documented in this encounter Administered Medications Inactive Administered Medications - up to 3 most recent administrations Medication Order MAR Action Action Date Dose Rate Site carvedilol (COREG) tablet 12.5 mg 12.5 mg, Oral, Once, 1 dose, On 05/28/24 at 0245, Take with meal or snack Given 05/28/2024 3:22 AM GUEST SERVICES REPRESENTATIVE 12.5 mg documented in this encounter Active and Recently Administered Medications Times are shown in GUEST SERVICES REPRESENTATIVE. Scheduled Medication Order 05/26/2024 05/27/2024 05/28/2024 carvedilol (COREG) tablet 12.5 mg (COMPLETED) 12.5 mg, Oral, Once, 1 dose, On 05/28/24 at 0245, Take with meal or snack 0322 (Given - Provid er: Christine Peter RN) documented in this encounter Care Teams Sharepoint Consultant Relationship Specialty Start Date End Date Mery Maxwell MD [address] [place] [address] PCP - General FAMILY PRACTICE 08/19/23 documented as of this encounter
--- OUTSIDE RECORDS SUMMARY | 2024-06-22 19:02 | XMS_ITS | Encounter Summary ---
Author Organization [facility] Address [address] [place] [address]. [place], [place] [address] [place] [address] Care Team Providers Care Manager Review Name Role Phone Mery Maxwell MD Primary Care Provider +1- [phone] Encounter Details Date Type Department Care Team (Latest Contact Info) Description 02/03/2024 Travel Social History Tobacco Use Types Packs/Day Years Used Date Smoking Tobacco: Former Cigarettes Smokeless Tobacco: Never Alcohol Use Standard Drinks/Week Comments Not Currently 0 (1 standard drink = 0.6 oz pur e alcohol) [facility] Utilities Answer Date Recorded In the [...] a correction (including now)? Patient declined 09/01/2023 Housing Stability [...] were you homeless or living in a correction (including now)? No 01/01/2024 Sex and Gender [...] st Contact Info) Description 07/20/2024 10:30 AM SINGE MACHINE OPERATOR Office Visit [facility] [address] [place] [address] Martha Ramirez, [facility] [address] documented as of this encounter Goals Goal Patient Goal Type Associated Problems Recent Progress Patient-Stated? 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 RN documented as of this encounter Visit Diagnoses Not on filedocumented in this encounter Care Teams Manager Review Relationship Specialty Start Date End Date Mery Maxwell MD [address] [place] [phone] PCP - General FAMILY PRACTICE 08/19/23 documented as of this encounter
--- OUTSIDE RECORDS SUMMARY | 2024-06-22 19:02 | XMS_ITS | Encounter Summary ---
Author Organization [facility] Address [address] [place] [address]. [place], [place] [address] [place] [address] Care Team Providers Care Supplier Quality Name Role Phone Mery Maxwell MD Primary Care Provider +1- [phone] Encounter Details Date Type Department Care Team (Late st Contact Info) Description 03/02/2024 Hospital Follow-up Call [facility] Home Care [facility] [address] [phone] Charito Mckeon CNA Social History Tobacco Use Types Packs/Day Years Used Date Smoking Tobacco: Former Cigarettes 1 15 Smokeless Tobacco: Never Alcohol Use Standard Drinks/Week Comments Not Currently 0 (1 standard drink = 0.6 oz pur e alcohol) [facility] Utilities Answer Date Recorded In the past 12 months has e electric, gas, oil, or water [employer] threatened to shut off services in your [...] st Contact Info) Description 07/20/2024 10:30 AM BRUSHER WARP Office Visit [facility] [phone] Martha Ramirez, [place] [address] documented as of this encounter Goals Goal Patient Goal Type Associated Problems Recent Progress Patient-Stated? 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 RN documented as of this encounter Visit Diagnoses Not on filedocumented in this encounter Care Teams Supplier Quality Relationship Specialty Start Date End Date Mery Maxwell MD [address] [place] [phone] PCP - General FAMILY PRACTICE 08/19/23 documented as of this encounter
--- OUTSIDE RECORDS SUMMARY | 2024-06-22 19:02 | XMS_ITS | Encounter Summary ---
Author Organization [facility] Address [address] [place] [address]. [place] [address] [place] [address] Care Team Providers Care Jukebox Coin Collector Name Role Phone Mery Maxwell MD Primary Care Provider [phone]- [phone] Encounter Details Date Type Department Care Team (Late st Contact Info) Description 02/03/2024 10:25 AM CDT - 02/03/2024 11:59 PM T Hospital Encounter [facility] [address] [place] [address] Martha Graham, [facility]- [address] [place] [address] Discharge Disposition: Home or Self Care (Routine Discharge) Social History Tobacco Use Types Packs/Day Years Used Date Smoking Tobacco: Former Cigarettes Smokeless Tobacco: Never Alcohol Use Standard Drinks/Week Comments Not Currently 0 (1 standard drink = 0.6 oz pur e alcohol) [facility] Utilities Answer Date Recorded In the past 12 months has [facility] [employer], [employer] or water [employer] threatened to shut off services in your [...] any time in the past 12 m [facility], were you homeless or living in [...] st Contact Info) Description 07/20/2024 10:30 AM 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 [facility] ?[address] [place], [place] ??[address] ? Test Date: ?2024-02-03 Pat Name: ? AARON CAMPOS ?Department: ?? 3 ? Room: ? Gender: ? Male ? 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 : ?1970 ? Requested By: MARTHA GRAHAM Order Number: [id number] ? Reading MD: ?? Barber Blankenship ? Measurements Intervals ?[place] ? Rate: ? 63 ? P: ?49 [place]: ? 204 ?QRS: ?97 QRSD: ? 101 ?T: ?22 QT: ? 457 ? QTc: ?469 ? Interpretive Statements SINUS RHYTHM BORDERLINE RIGHT AXIS DEVIATION PROLONGED QT INTERVAL Procedure Note Barber Blankenship MD - 02/05/[address] [place] [address] Test Date: 2024-02-03 Pat Name: AARON CAMPOS Department: 3 Room: Gender: Male Agricultural Extension Officer: : 1970 Requested By: MARTHA GRAHAM Order Number: [id number] Reading MD: Barber Blankenship Measurements Intervals [place] Rate: 63 P: 49 [place]: 204 QRS: 97 QRSD: 101 T: 22 QT: 457 QTc: 469 Interpretive Statements SINUS RHYTHM BORDERLINE RIGHT AXIS DEVIATION PROLONGED QT INTERVAL [facility] ECG ORDERABLES Final Res ult Performing Organization Address City/State/[facility] Co de Phone Number [facility] documented in this encounter Visit Diagnoses Diagnosis Prolonged Q-T interval on ECG Nonspecific abnormal electrocardiogram (ECG) (EKG) documented in this encounter Care Teams Jukebox Coin Collector Relationship Specialty Start Date End Date Mery Maxwell MD [address] [place] [phone] PCP - General FAMILY PRACTICE 08/19/23 documented as of this encounter
--- OUTSIDE RECORDS SUMMARY | 2024-06-22 19:02 | XMS_ITS | Clinical Summary ---
Author Organization [facility] Address [address] [place] [address]. [place] [address] [place] [address] Care Team Providers Care Content Management Consultant Name Role Phone Mery Maxwell MD Primary Care Provider +1- [phone] Allergies Active Allergy Reactions Criticality Noted Date [...] MINI PEN NEEDLES 31G X 5 MM [facility] 03/02/2024 Active BD VEO INSULIN SYRINGE U/F 31G X 15/64 0.5 ML [facility] 11/17/2023 Active TRUE METRIX BLOOD [...] Active Continuous Glucose Transmitter (DEXCOM G6 TRANSMITTER) [facility] 03/08/2024 Active Active Problems Problem Noted Date Diagnosed Date Hemoptysis 03/28/2024 Hypotension 12/31/2023 Postural dizziness with presyncope 12/31/2023 Hypokalemia 09/01/2023 EKG, abnormal 09/01/2023 Encounters Date Type Department Care Team Description 06/22/2024 [facility]phone [facility] [address] [place] [address] Martha Ramirez ANP- Reschedule 05/28/2024 12:25 AM PHOTOGRAPHER'S ASSISTANT - 05/28/2024 3:32 AM [facility] [address] [place] [address] Bishop Abdi DO Hypertension Discharge Disposition: Home or Self Care (Routine Discharge) 05/28/2024 Travel 05/10/2024 [facility]phone [facility] [address] [place] [address] Martha Ramirez ANP-BC Surgical Clearance 04/04/2024 12:14 PM CDT - 04/04/2024 11:59 PM CDT Hospital Encounter [facility] [place] [address] Mery Maxwell MD Discharge Disposition: Home or Self Care (Routine Discharge) 04/04/2024 Orders Only [facility] [place] [address] Mery Maxwell MD 03/28/2024 5:24 PM CDT - 03/31/2024 3:12 PM CDT Hospital Encounter [facility] [address] [place] [address] Raymond Mccain MD Jabeen, Sayeeda A, MD Discharge Disposition: Home or Self Care (Routine Discharge) 03/28/2024 10:29 AM CDT - 03/28/2024 4:22 PM CDT [facility] [address] [facility] [place] [address] Hemoptysis Discharge Disposition: Transfer to Acute [facility] 03/28/2024 Travel from Last 3 Months [...] drink = 0.6 oz pur e alcohol) [facility] Utilities Answer Date Recorded In the past 12 months has e [employer], gas, oil, or water [employer] threatened to shut off services in your [...] Comments Blood Pressure 195/92 05/28/2024 3:00 AM PHOTOGRAPHER'S ASSISTANT Pulse 82 05/28/2024 3:00 AM PHOTOGRAPHER'S ASSISTANT Temperature 37.1 ??C (98.7 ??F) 05/28/2024 12:[address] Respiratory Rate 27 05/28/2024 3:00 AM PHOTOGRAPHER'S ASSISTANT Oxygen Saturation 95% 05/28/2024 3:00 AM PHOTOGRAPHER'S ASSISTANT Inhaled Oxygen Concentration - - Weight 122.5 kg (270 lb) 05/28/2024 12:32 AM PHOTOGRAPHER'S ASSISTANT Height 188 cm (6' 2 ) 05/28/2024 12:32 AM PHOTOGRAPHER'S ASSISTANT Body Mass Index 34.67 05/28/2024 12:32 AM PHOTOGRAPHER'S ASSISTANT Plan of Treatment Upcoming Encounters Date Type Department Care Team (Late st Contact Info) Description 07/20/2024 10:30 AM PHOTOGRAPHER'S ASSISTANT Office Visit [facility] [place] [id number] Martha Ramirez, [facility]- [address] [place] [address] Health Maintenance Due Date Last [...] and discharge planning Lifestyle No Zakiya Rocha home health aide Procedure Name Priority Date/Time Associated Diagnosis Comments TROPONIN, QUANT STAT 05/28/2024 2:30 AM PHOTOGRAPHER'S ASSISTANT XR CHEST PORTABLE STAT 05/28/2024 1:0 8 AM PHOTOGRAPHER'S ASSISTANT ECG 12-LEAD Routine 05/28/2024 12:53 AM PHOTOGRAPHER'S ASSISTANT TROPONIN, QUANT STAT 05/28/2024 12:50 AM PHOTOGRAPHER'S ASSISTANT COMPREHENSIVE METABOLIC PANEL STAT 05/28/2024 12:50 AM PHOTOGRAPHER'S ASSISTANT CBC W/DIFF AUTOMATED STAT 05/28/2024 12:50 AM PHOTOGRAPHER'S ASSISTANT CBC W/DIFF AUTOMATED Routine 04/04/2024 11:30 AM [...] Results * TROPONIN, QUANT (05/28/2024 2:30 AM PHOTOGRAPHER'S ASSISTANT) Only the most recent of2 resultswithin the time period is included. TROPONIN I HIGH SENSITIVITY 24 0 - 76 ng/L 05/28/2024 3:01 AM PHOTOGRAPHER'S ASSISTANT [facility] 05/28/2024 2:30 AM PHOTOGRAPHER'S ASSISTANT Bishop Abdi DO LABORATORY Final Result [facility] Critical access hospital[address] [place] [address], * XR CHEST PORTABLE (05/28/2024 1:08 AM PHOTOGRAPHER'S ASSISTANT) Only the most recent of2 resultswithin the time period is included. Anatomical Region Laterality Modality Chest Radiographic Susannah ging 05/28/2024 1:23 AM PHOTOGRAPHER'S ASSISTANT Impressions 05/28/2024 1:26 AM PHOTOGRAPHER'S ASSISTANT IMPRESSION: Mild pulmonary vascular congestion. Referred By: ?? Interpreted By: Larry Arevalo MD, 05/28/2024 1:23 AM Narrative 05/28/2024 1:26 AM PHOTOGRAPHER'S ASSISTANT [facility] [address] [place] [address] INDICATION: dyspnea COMPARISON: Chest CTA and radiograph, 28 Mar 2024 TECHNIQUE: Single AP radiographic image of the chest FINDINGS: No pneumothorax or pleural effusion. No focal airspace consolidation. Mild pulmonary vascular congestion. Cardiomediastinal silhouette within normal limits. No acute osseous abnormality. Procedure Note Larry Arevalo MD - 05/28/2024 [facility] [address] [place] [address] INDICATION: dyspnea COMPARISON: Chest CTA and radiograph, [...] * ECG 12 lead (05/28/2024 12:53 AM PHOTOGRAPHER'S ASSISTANT) 05/28/2024 12:5 3 AM PHOTOGRAPHER'S ASSISTANT Narrative [facility] - 05/28/2024 6:32 AM PHOTOGRAPHER'S ASSISTANT ? [facility] ?[address] [place] ??[address] ? Test Date: ?2024-05-28 Pat Name: ? VINAY WILBURN ?Department: ?? 3 ? Room: ? EXAM 606 Gender: ? Male ? 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 EDSFL : ?1970 ? Requested By: BISHOP WAGNON Order Number: [id number] ? Reading MD: ?? Effie Loja ? Measurements Intervals ?[place] ? Rate: ? 75 ? P: ?54 GA: ? 188 ?QRS: ?-22 QRSD: ? 113 ?T: ?53 QT: ? 434 ? QTc: ?487 ? Interpretive Statements SINUS RHYTHM POSSIBLE LEFT ATRIAL ENLARGEMENT BORDERLINE LEFT AXIS DEVIATION MODERATE INTRAVENTRICULAR CONDUCTION DELAY PROLONGED QT INTERVAL OGRAPHER'S ASSISTANT Procedure Note Effie Loja MD - 05/28/[address] [place] [address] Test Date: 2024-05-28 Pat Name: VINAY WILBURN Department: 3 Room: EXAM 606 Gender: Male Automotive Sales Specialist: EDSFL : 1970 Requested By: BISHOP ABDI Order Number: [id number] Reading MD: Effie Loja Measurements Intervals [place] Rate: 75 P: 54 GA: 188 QRS: -22 QRSD: 113 T: 53 QT: 434 QTc: 487 Interpretive Statements SINUS RHYTHM POSSIBLE LEFT ATRIAL ENLARGEMENT BORDERLINE LEFT AXIS DEVIATION MODERATE INTRAVENTRICULAR CONDUCTION DELAY PROLONGED QT INTERVAL OGRAPHER'S ASSISTANT us Bishop Abdi DO ECG ORDERABLES Final Result [facility] * (ABNORMAL) COMPREHENSIVE METABOLIC PANEL (05/28/2024 12:50 AM PHOTOGRAPHER'S ASSISTANT) Only the most recent of3 resultswithin the time period is included. SODIUM S/P/B 137 136 - 145 MMOL/L 05/28/2024 1:13 AM [facility] POTASSIUM S/P/B 3.6 3.5 - 5.1 MMOL/L 05/28/2024 1:13 AM [facility] CHLORIDE S/P/B 100 98 - 107 MMOL/L 05/28/2024 1:13 AM [facility] CO2 26.9 21.0 - 32.0 MMOL/L 05/28/2024 1:13 AM [facility] GLUCOSE 194(H) 70 - 99 MG/DL 05/28/2024 1:13 AM [facility] Comment: FASTING GLUCOSE 100 TO 125 MG/DL IS CONSISTENT WITH IMPAIRED FASTING GLUCOSE. FASTING GLUCOSE >125 MG/DL IS CONSISTENT WITH DIABETES. RANDOM GLUCOSE >200 MG/DL WITH HYPERGLYCEMIC SYMPTOMS IS CONSISTENT WITH DIABETES. PER ADA GUIDELINES BUN 41(H) 6 - 24 MG/DL 05/28/2024 1:13 AM [facility] CREATININE S/P/B 4.38(H) 0.70 - 1.30 MG/DL 05/28/2024 1:13 AM [facility] CALCIUM S/P/B 8.8 8.4 - 10.5 MG/DL 05/28/2024 1:13 AM [facility] BILIRUBIN TOTAL S/P/B 0.3 0.2 - 1.0 MG/DL 05/28/2024 1:13 AM [facility] Comment: THIS ASSAY IS NOT RECOMMENDED FOR PATIENTS UNDERGOING TREATMENT WITH ELTROMBOPAG DUE TO THE POTENTIAL FOR FALSELY ELEVATED RESULTS. ALKALINE PHOSPHATASE S/P/B 64 45 - 115 U/L 05/28/2024 1:13 AM [facility] AST 10(L) 15 - 37 U/L 05/28/2024 1:13 AM [facility] ALT 12(L) 16 - 63 U/L 05/28/2024 1:13 AM [facility] TOTAL PROTEIN S/P/B 7.0 6.4 - 8.2 G/DL 05/28/2024 1:13 AM [facility] ALBUMIN S/P/B 3.1(L) 3.4 - 5.0 G/DL 05/28/2024 1:13 AM [facility] ANION GAP 10.1 5.0 - 15.0 MMOL/L 05/28/2024 1:13 AM [facility] OSMOLALITY (CALC) 299 MOSM/KG 2 024 1:13 AM [facility] Comment:REFERENCE RANGE NOT ESTABLISHED GFR ESTIMATE 15(L) >89 ML/MIN/1. 73 M2 05/28/2024 1:13 AM [facility] GFR NOTES GFR REFERENCE S: 05/28/2024 1:13 AM [facility] Comment: THE ESTIMATED GFR IS [...] <15 ml/min/1.73 m2 05/28/2024 12:5 0 AM PHOTOGRAPHER'S ASSISTANT us Bishop bAdi DO LABORATORY Final Result [facility] [address] [place] [address], * (ABNORMAL) CBC W/DIFF AUTOMATED (05/28/2024 12:50 AM PHOTOGRAPHER'S ASSISTANT) Only the most recent of5 resultswithin the time period is included. WBC 5.64 4.00 - 10.80 x10'3/uL 05/28/2024 12:56 AM PHOTOGRAPHER'S ASSISTANT [facility] RBC 3.05(L) 4.50 - 6.10 x10'6/uL 05/28/2024 12:56 AM PHOTOGRAPHER'S ASSISTANT [facility] HGB 10.1(L) 13.0 - 18.0 G/DL 05/28/2024 12:56 AM PHOTOGRAPHER'S ASSISTANT [facility] HCT 31.4(L) 37.0 - 52.0 % 05/28/2024 12:56 AM PHOTOGRAPHER'S ASSISTANT [facility] MCV 103.0(H) 78.0 - 100.0 FL 05/28/2024 12:56 AM PHOTOGRAPHER'S ASSISTANT [facility] MCH 33.1(H) 27.0 - 31.0 PG 05/28/2024 12:56 AM PHOTOGRAPHER'S ASSISTANT [facility] MCHC 32.2(L) 33.0 - 36.0 G/DL 05/28/2024 12:56 AM [facility] RDW 13.7 11.5 - 14.5 % 05/28/2024 12:56 AM [facility] PLT 166 150 - 350 x10'3/uL 05/28/2024 12:56 AM [facility] MPV 9.3 7.4 - 10.4 FL 05/28/2024 12:56 AM [facility] CBC COMMENT NORMAL REFERENCE RANGE NOT ESTABLISHED FOR THE PROPORTIONAL LEUKOCYTE DIFFERENTIAL. 05/28/2024 12:56 AM [facility] NEUTROPHILS % 57.9 % 05/28/2024 12:56 AM [facility] LYMPHOCYTES % 30.1 % 05/28/2024 12:56 AM [facility] MONOCYTES % 7.8 % 05/28/2024 12:56 AM [facility] EOSINOPHILS % 3.0 % 05/28/2024 12:56 AM [facility] BASOPHILS % 0.7 % 05/28/2024 12:56 AM [facility] IMMATURE GRANS % 0.5 % 05/28/20 12:56 AM [facility] NRBC % 0.0 % 05/28/2024 12:56 AM [facility] ABS. NEUTROPHILS 3.26 1.60 - 8.30 x10'3/uL 05/28/2024 12:56 AM [facility] ABS. LYMPHOCYTES 1.70 0.80 - 4.70 x10'3/uL 05/28/2024 12:56 AM [facility] ABS. MONOCYTES 0.44 0.00 - 1.50 x10'3/uL 05/28/2024 12:56 AM [facility] ABS. EOSINOPHILS 0.17 0.00 - 0.40 x10'3/uL 05/28/2024 12:56 AM [facility] ABS. BASOPHILS 0.04 0.00 - 0.20 x10'3/uL 05/28/2024 12:56 AM [facility] ABS. IMMATURE GRANULOCYTES 0.03 0.00 - 0.03 x10'3/uL 05/28/2024 12:56 AM PHOTOGRAPHER'S ASSISTANT [facility] ABS. NUCLEATED RBC'S 0.00 0.00 - 0.01 x10'3/uL 05/28/2024 12:56 AM PHOTOGRAPHER'S ASSISTANT [facility] 05/28/2024 12:5 0 AM PHOTOGRAPHER'S ASSISTANT Bishop Abdi DO LABORATORY Final Result Performing Organization Address [facility] Co de Phone Number [facility] [address] [place] [address], * (ABNORMAL) IRON SATURATION PNL (FE/TIBC/SAT) (04/04/2024 11:30 AM CDT) IRON 85 65 - 175 MCG/DL 04/04/2024 12:50 PM CDT [facility] IRON BINDING CAPACITY 226(L) 250 - 450 MCG/DL 04/04/2024 12:50 PM CDT [facility] IRON SATURATION 38 % 12:50 PM CDT [facility] Comment:REFERENCE RANGE NOT ESTABLISHED 04/04/2024 11:3 0 AM CDT Mery Maxwell MD LABORATORY Final Resu lt Performing Organization Address [facility] Co de Phone Number [facility] [address] [place] [address], * VITAMIN D, 25 [place] (04/04/2024 11:30 AM CDT) VITAMIN D 25 HYDROXY TOTAL S/P/B 27.0 20.0 - 50.0 NG/ML 04/05/2024 12:22 PM CDT [facility] Comment: <10 ng/mL (Severe deficiency) 10 TO 19 ng/mL (Mild to Moderate deficiency) 20 TO 50 ng/mL (Optimum levels) 51 TO 80 ng/mL (Increased risk of hypercalciuria) >80 ng/mL (Toxicity possible) 04/04/2024 11:3 0 AM CDT us Mery Maxwell MD LABORATORY Final Resu lt Performing Organization Address [facility] Co de Phone Number [facility] [address] [place] [address], [place] [phone] * (ABNORMAL) POCT glucose (03/31/2024 1:11 PM CDT) Only the most recent of11 resultswithin the time period is included. GLUCOSE POC 130(H) 70 - 109 03/31/2024 1:14 PM CDT [facility] 03/31/2024 1:11 PM CDT us Devyn Warner MD POCT ORDERABLES - DEVICE Fin al Result Performing Organization Address [facility] Co de Phone Number [facility] [address] [place] [address], [place] [phone] * HEPATITIS B SURFACE AG, EIA (03/29/2024 7:49 AM CDT) HEPATITIS B SURFACE AG NON-REACTI VE NON-REACTI VE 03/29/2024 9:04 AM CDT [facility] Comment:HBsAg NOT DETECTED. 03/29/2024 7:49 AM CDT us Rolan Simon MD LABORATORY Final Resu lt Performing Organization Address [facility] Co de Phone Number [facility] [address] [place] [address], [place] [phone] * (ABNORMAL) HEPATITIS B SURFACE ANTIBODY (03/29/2024 7:49 AM CDT) HEP B SURFACE AB <3.1(L) >9.9 MIU/ML 03/29/2024 9:04 AM CDT [facility] Comment:INDIVIDUAL IS CONSID ERED NOT IMMUNE TO HBV INFECTION. 03/29/2024 7:49 AM CDT us Rolan Simon MD LABORATORY Final Resu lt Performing Organization Address [facility] Co de Phone Number [facility] [address] [place] [address], [place] [phone] * HEPATITIS B CORE ANTIBODY (03/29/2024 7:49 AM CDT) HEP B CORE TOTAL AB NON-REACTI VE NON-REACTI VE 03/29/2024 9:29 AM CDT [facility] Comment:IgM and IgG anti HBc not detected. 03/29/2024 7:49 AM CDT Rolan Simon MD LABORATORY Final Resu lt Performing Organization Address [facility] de Phone Number [facility] [address] [place] [address], [place] [phone] * (ABNORMAL) BASIC METABOLIC PANEL (03/29/2024 4:06 AM CDT) SODIUM S/P/B 134(L) 136 - 145 MMOL/L 03/29/2024 5:22 AM CDT [facility] POTASSIUM S/P/B 4.2 3.5 - 5.1 MMOL/L 03/29/2024 5:22 AM CDT [facility] CHLORIDE S/P/B 101 97 - 115 MMOL/L 03/29/2024 5:22 AM CDT [facility] CO2 24.5 21.0 - 32.0 MMOL/L 03/29/2024 5:22 AM CDT [facility] GLUCOSE 204(H) 74 - 106 MG/DL 03/29/2024 5:22 AM CDT [facility] BUN 85(H) 7 - 18 MG/DL 03/29/2024 5:22 AM CDT [facility] CREATININE S/P/B 7.01(H) 0.70 - 1.30 MG/DL 03/29/2024 5:22 AM CDT [facility] CALCIUM S/P/B 9.7 8.5 - 10.1 MG/DL 03/29/2024 5:22 AM CDT [facility] ANION GAP 8.5 2.0 - 10.0 MMOL/L 03/29/2024 5:22 AM CDT [facility] OSMOLALITY (CALC) 310 MOSM/KG 024 5:22 AM T [facility] Comment:REFERENCE RANGE NOT ESTABLISHED GFR ESTIMATE 9(L) >90 ML/MIN/1. 73 M2 03/29/2024 5:22 AM CDT [facility] GFR NOTES GFR REFERENCE S: 03/29/2024 5:22 AM CDT [facility] Comment: THE ESTIMATED GFR IS [...] us Devyn Warner MD LABORATORY Final Result [facility] [address] [place], [place] [address] [phone] * CTA CHEST PE PROTOCOL (03/28/2024 12:30 PM CDT) Anatomical Region Laterality Modality Chest Computed Tomogra phy 03/28/2024 12:4 2 PM CDT Impressions 03/28/2024 12:48 PM CDT IMPRESSION: 1. Negative for pulmonary embolism as described. 2. Coronary artery disease. 3. Bilateral gynecomastia. Ordered By: KELLY LONDONO Interpreted By: Hans Gonsalves MD, 03/28/2024 12:42 PM Narrative 03/28/2024 12:[address] PM [address]T [address] [place] [address] Examination: CTA chest. Exam time: 1229 hours. [...] Procedure Note Hans Gonsalves MD - 03/28/2024 [facility] [address] [place] [address] Examination: CTA chest. Exam time: 1229 hours. [...] FECAL NEGATIVE NEGATIVE 03/28/2024 12:19 PM CDT [facility] STOOL SPECIMEN / Unknown 03/28/2024 12:10 PM CDT us Kelly Londono MD BODY FLUIDS AND STOOLS ORDER KRIS Final Result Performing Organization Address [facility]/ZIP Co de Phone Number [facility] [address] [place] [address], * PARTIAL THROMBOPLASTIN TIME,PTT (03/28/2024 11:18 AM CDT) PTT 35.4 25.1 - 36.5 SEC 03/28/2024 11:39 AM CDT [facility] Comment:THERAPEUTIC RANGE: 4 6.2-77.0 SEC 03/28/2024 11:1 8 AM CDT us Kelly Londono MD LABORATORY Final Result Performing Organization Address [facility] Co de Phone Number [facility] [address] [place] [address], * (ABNORMAL) PROTIME/INR, VENOUS (03/28/2024 11:18 AM CDT) PROTIME 16.8(H) 9.4 - 12.5 SEC 03/28/2024 11:39 AM CDT [facility] INR 1.5(H) 0.8 - 1.0 03/28/2024 11:39 AM CDT [facility] 03/28/2024 11:1 8 AM CDT us Kelly Londono MD LABORATORY Final Result Performing Organization Address [facility]/ZIP Co de Phone Number [facility] [address] [place] [phone], * (ABNORMAL) HEMOGLOBIN, GLYCOSYLATED (09/02/2023 2:49 AM CDT) HGB A1C 7.4(H) <5.7 % 09/02/2023 3:34 PM CDT [facility] ESTIMATED AVG GLUCOSE 166(H) 74 - 114 MG/DL 09/02/2023 3:34 PM CDT [facility] 09/02/2023 2:49 AM CDT Troy Berger MD LABORATORY Final Res ult [facility] [address] [place] [address], [id number] from Last 3 Months or Most Recently [...] 10:23 PM 09/04/2023 8:48 PM Care Teams Content Management Consultant Relationship Specialty Start Date End Date Mery Maxwell MD [address] [place] [phone] PCP - General FAMILY PRACTICE 08/19/23
--- OUTSIDE RECORDS SUMMARY | 2024-06-22 19:02 | XMS_ITS ---
Author Organization Unknown Address [address] [place] [phone] Phone Care Team Providers Care Heavy Forging Machine Operator Name Role Phone JERMAN Gordon Attending [...]
--- OUTSIDE RECORDS SUMMARY | 2024-06-22 19:02 | XMS_ITS | Encounter Summary ---
Author Organization [facility] Address [address] [place] [address]. [place] [address] [place] [address] Care Team Providers Care Bilingual Receptionist Name Role Phone Mery Maxwell MD Primary Care Provider [phone] Encounter Details Date Type Department Care Team (Late st Contact Info) Description 04/04/2024 Orders Only [facility] [address] [address] [address] [place], [place] [id number] Mery Maxwell MD [address] [place] [phone] Social History Tobacco Use Types Packs/Day Years Used Date Smoking Tobacco: Former Cigarettes 1 15 Smokeless Tobacco: Never Alcohol Use Standard Drinks/Week Comments Not Currently 0 (1 standard drink = 0.6 oz pur e alcohol) [facility] Utilities Answer Date Recorded In the past 12 months has [facility] [employer], gas, oil, or water [employer] threatened to shut off services in your [...] place to sleep or slept in a residential (including now)? Patient declined 09/01/2023 Housing Stability [...] were you homeless or living in a residential (including now)? No 03/28/2024 Sex and Gender [...] 5:25 PM CDT Christina Mercado Nu rsrohit Associate Professor Of Violin II Active * Are you blind or do you have serious difficulty seeing, even when wearing glasses? Answer Date of Assessment Author Status No 03/28/2024 5:25 PM CDT Christina Mercado Nu rse Associate Professor Of Violin II Active * Do you have serious difficulty walking or climbing stairs? Answer Date of Assessment Author Status Yes 03/28/2024 5:25 PM CDT Christina MercadoSachi rse Associate Professor Of Violin II Active * Do you have difficulty dressing or bathing? Answer Date of Assessment Author Status Yes 03/28/2024 5:25 PM CDT Christina Mercado Sachi rse Associate Professor Of Violin II Active * Because of a physical, mental, or emotional condition, do you have difficulty doing errands alone such as visiting a doctor's office or shopping? Answer Date of Assessment Author Status Yes 03/28/2024 5:25 PM CDT Christina Mercado Nu rse Associate Professor Of Violin [employer] Active documented as of this encounter Mental Status * Because of a physical, mental, or emotional condition, do you have serious difficulty concentrating, remembering, or making decisions? Answer Entry Date Author Status No 03/28/2024 5:25 PM CDT Christina Mercado Sachi rse Associate Professor Of Violin II Active documented in this encounter Plan of Treatment Upcoming Encounters Date Type Department Care Team (Late st Contact Info) Description 07/20/2024 10:30 AM DUCT INSTALLER Office Visit [facility] [place] [phone] [place] [address] documented as of this encounter Goals Goal Patient Goal Type Associated Problems Recent Progress Patient-Stated? Author Family - family caregiver with be involved in care transitions and discharge planning Lifestyle No Zkaiya Rocha RN documented as of this encounter Results * (ABNORMAL) IRON SATURATION PNL (FE/TIBC/SAT) (04/04/2024 11:30 AM CDT) [facility] IRON 85 65 - 175 MCG/DL 04/04/2024 12:50 PM CDT [facility] IRON BINDING CAPACITY 226(L) 250 - 450 MCG/DL 04/04/2024 12:50 PM CDT [facility] IRON SATURATION 38 % 12:50 PM CDT [facility] Comment:REFERENCE RANGE NOT ESTABLISHED 04/04/2024 11:3 0 AM CDT Mery Maxwell MD LABORATORY Final Resu lt Performing Organization Address City/[facility]/ZIP Co de Phone Number [facility] [address] [place] [address], * VITAMIN D, 25 OH (04/04/2024 11:30 AM CDT) VITAMIN D 25 HYDROXY TOTAL S/P/B 27.0 20.0 - 50.0 NG/ML 04/05/2024 12:22 PM CDT [facility] Comment: <10 ng/mL (Severe deficiency) 10 TO 19 ng/mL (Mild to Moderate deficiency) 20 TO 50 ng/mL (Optimum levels) 51 TO 80 ng/mL (Increased risk of hypercalciuria) >80 ng/mL (Toxicity possible) 04/04/2024 11:3 0 AM CDT us Mery Maxwell MD LABORATORY Final Resu lt Performing Organization Address [facility]/ZIP Co de Phone Number [facility] [address] [place] [address], [place] [phone] * (ABNORMAL) COMPREHENSIVE METABOLIC PANEL (04/04/2024 11:30 AM CDT) SODIUM S/P/B 138 136 - 145 MMOL/L 04/04/2024 12:52 PM CDT [facility] POTASSIUM S/P/B 4.1 3.5 - 5.1 MMOL/L 04/04/2024 12:52 PM CDT [facility] CHLORIDE S/P/B 97(L) 98 - 107 MMOL/L 04/04/2024 12:[address] [facility] CO2 30.0 21.0 - 32.0 MMOL/L 04/04/2024 12:[address] [facility] GLUCOSE 202(H) 70 - 99 MG/DL 04/04/2024 12:[address] [facility] Comment: FASTING GLUCOSE 100 TO 125 MG/DL IS CONSISTENT WITH IMPAIRED FASTING GLUCOSE. FASTING GLUCOSE >125 MG/DL IS CONSISTENT WITH DIABETES. RANDOM GLUCOSE >200 MG/DL WITH HYPERGLYCEMIC SYMPTOMS IS CONSISTENT WITH DIABETES. PER ADA GUIDELINES BUN 63(H) 6 - 24 MG/DL 04/04/2024 12:52 PM T [facility] CREATININE S/P/B 7.62(H) 0.70 - 1.30 MG/DL 04/04/2024 12:[address] [facility] CALCIUM S/P/B 10.1 8.4 - 10.5 MG/DL 04/04/2024 12:[address] [facility] BILIRUBIN TOTAL S/P/B 0.6 0.2 - 1.0 MG/DL 04/04/2024 12:52 PM T [facility] Comment: THIS ASSAY IS NOT RECOMMENDED FOR PATIENTS UNDERGOING TREATMENT WITH ELTROMBOPAG DUE TO THE POTENTIAL FOR FALSELY ELEVATED RESULTS. ALKALINE PHOSPHATASE S/P/B 61 45 - 115 U/L 04/04/2024 12:[address] [facility] AST 11(L) 15 - 37 U/L 04/04/2024 12:[address] [facility] ALT 13(L) 16 - 63 U/L 04/04/2024 12:52 PM T [facility] TOTAL PROTEIN S/P/B 8.7(H) 6.4 - 8.2 G/DL 04/04/2024 12:52 PM T [facility] ALBUMIN S/P/B 3.8 3.4 - 5.0 G/DL 04/04/2024 12:[address] [facility] ANION GAP 11.0 5.0 - 15.0 MMOL/L 04/04/2024 12:52 PM T [facility] OSMOLALITY (CALC) 310 MOSM/KG 10/21/2 024 12:52 PM CDT [facility] Comment:REFERENCE RANGE NOT ESTABLISHED GFR ESTIMATE 8(L) >89 ML/MIN/1. 73 M2 04/04/2024 12:52 PM CDT [facility] GFR NOTES GFR REFERENCE S: 04/04/2024 12:52 PM CDT [facility] Comment: THE ESTIMATED GFR IS [...] Mery Maxwell MD LABORATORY Final Resu lt [facility] [address] [place] [address], * (ABNORMAL) CBC W/DIFF AUTOMATED (04/04/2024 11:30 AM CDT) WBC 7.76 4.00 - 10.80 x10'3/uL 04/04/2024 12:34 PM CDT [facility] RBC 3.61(L) 4.50 - 6.10 x10'6/uL 04/04/2024 12:34 PM CDT [facility] HGB 11.9(L) 13.0 - 18.0 G/DL 04/04/2024 12:34 PM CDT [facility] HCT 36.5(L) 37.0 - 52.0 % 04/04/2024 12:34 PM CDT [facility] MCV 101.1(H) 78.0 - 100.0 FL 04/04/2024 12:34 PM CDT [facility] MCH 33.0(H) 27.0 - 31.0 PG 04/04/2024 12:34 PM CDT [facility] MCHC 32.6(L) 33.0 - 36.0 G/DL 04/04/2024 12:34 PM CDT [facility] RDW 13.5 11.5 - 14.5 % 04/04/2024 12:34 PM CDT [facility] PLT 201 150 - 350 x10'3/uL 04/04/2024 12:34 PM CDT [facility] MPV 10.1 7.4 - 10.4 FL 04/04/2024 12:34 PM CDT [facility] CBC COMMENT NORMAL REFERENCE RANGE NOT ESTABLISHED FOR THE PROPORTIONAL LEUKOCYTE DIFFERENTIAL. 04/04/2024 12:34 PM CDT [facility] NEUTROPHILS % 70.3 % 04/04/2024 12:34 PM CDT [facility] LYMPHOCYTES % 21.0 % 04/04/2024 12:34 PM CDT [facility] MONOCYTES % 5.3 % 04/04/2024 12:34 PM CDT [facility] EOSINOPHILS % 2.3 % 04/04/2024 12:34 PM CDT [facility] BASOPHILS % 0.6 % 04/04/2024 12:34 PM CDT [facility] IMMATURE GRANS % 0.5 % 04/04/20 12:34 PM CDT [facility] NRBC % 0.0 % 04/04/2024 12:34 PM CDT [facility] ABS. NEUTROPHILS 5.45 1.60 - 8.30 x10'3/uL 04/04/2024 12:34 PM CDT [facility] ABS. LYMPHOCYTES 1.63 0.80 - 4.70 x10'3/uL 04/04/2024 12:34 PM CDT [facility] ABS. MONOCYTES 0.41 0.00 - 1.50 x10'3/uL 04/04/2024 12:34 PM CDT [facility] ABS. EOSINOPHILS 0.18 0.00 - 0.40 x10'3/uL 04/04/2024 12:34 PM CDT [facility] ABS. BASOPHILS 0.05 0.00 - 0.20 x10'3/uL 04/04/2024 12:34 PM CDT [facility] ABS. IMMATURE GRANULOCYTES 0.04(H) 0.00 - 0.03 x10'3/uL 04/04/2024 12:34 PM CDT [facility] ABS. NUCLEATED RBC'S 0.00 0.00 - 0.01 x10'3/uL 04/04/2024 12:34 PM CDT [facility] 04/04/2024 11:3 0 AM CDT us Mery Maxwell MD LABORATORY Final Resu lt [facility] [address] [place] [address], documented in this encounter Visit Diagnoses Diagnosis CKD (chronic kidney disease)- Primary Chronic kidney disease, unspecified DM (diabetes mellitus) ([facility]) Type II or unspecified type diabetes mellitus without mention of complication, not stated as uncontrolled CHF (congestive heart failure) ([facility]) Congestive heart failure, unspecified documented in this encounter Care Teams Bilingual Receptionist Relationship Specialty Start Date End Date Mery Maxwell MD [address] [place] [phone] PCP - General FAMILY PRACTICE 08/19/23 documented as of this encounter
--- OUTSIDE RECORDS SUMMARY | 2024-06-22 19:02 | XMS_ITS | Clinical Summary ---
Author Organization Unknown Care Team Providers Care Administrative Nursing Supervisor Name Role Phone JERMAN ANN, RIMA Unavailable Unavailable OTTO REGISTERED NURSE, JESSIE Unavailable Unavailable FLETCHER PHYSICAL THERAPIST, MICHELE Unavailabl e Unavailable O'AISLINN SINKER PULLER, AMAN aguilar Unavailable ORIANA PATEL COUNSELOR, VIKTOR Unavailable Unavailable MARLENI REGISTERED NURSE, ROZINA Unavailable Unavailable Payers Payer Name Policy Type Policy Number Effective Date Expira tion Date MEDICARE [place] - EPISODIC [id number] Problems Condition Name Condition Details Condition Category [...] 06-15 00:00: 00 ATHSCL HEART DISEASE OF [place] CORONARY ARTERY W/O ANG PCTRS Active 06-15 [...] [BMI] 35.0-35.9, ADULT Active 06-15 00:00: 00 MELTER CLERK (CURRENT) USE OF ANTICOAGULAN TS Active 06-15 00:00: 00 MELTER CLERK (CURRENT) USE OF INSULIN Active 06-15 00:00: [...] 100 mg tablet 09-24 00:00: 00 Yes [id number] HYPERPHOSPH ATEMIA 1 tablet TWICE DAILY 1 tablet TWICE DAILY (route: oral) Med Classific ation: Gout and Hyperuric emia Therapy amiodarone 200 mg tablet 09-24 00:00: 00 Yes [id number] AFIB 1 tablet ONCE DAILY 1 tablet ONCE DAILY (route: oral) Med Classific ation: Cardiovas cular Therapy Agents atorvastati n 20 mg tablet 09-24 00:00: 00 Yes [id number] HIGH CHOLESTEROL 1 tablet ONCE DAILY 1 tablet ONCE DAILY (route: oral) Med Classific ation: Cardiovas cular Therapy Agents calcitriol 0.25 mcg capsule 09-24 00:00: 00 Yes [id number] SUPPLEMENT 1 capsule DIRECTED 1 capsule DIRECTED (route: oral) Med Classific ation: Electroly te Balance-N utritiona l Products carvedilol 12.5 mg tablet 09-24 00:00: 00 12-08 23:59 :00 No [id number] HYPERTENSIO N 1 tablet TWICE DAILY 1 tablet TWICE DAILY (route: oral) Med Classific ation: Cardiovas cular Therapy Agents Eliquis 5 mg tablet 09-24 00:00: 00 Yes [id number] AFIB 1 tablet TWICE DAILY 1 tablet TWICE DAILY (route: oral) Med Classific ation: Hematolog ical Agents fluticasone propionate 50 mcg/actuati on blister powder for inhalation 09-24 00:00: 00 Yes [id number] ALLERGIES 1 inhalat ion TWICE DAILY 1 inhalation TWICE DAILY (route: inhalation ) Med Classific ation: Respirato ry Therapy Agents gabapentin 100 mg capsule 09-24 00:00: 00 Yes [id number] NERVE PAIN 1 capsule TWICE DAILY 1 capsule TWICE DAILY (route: oral) Med Classific ation: Central Nervous System Agents insulin lispro (U-100) 100 unit/mL subcutaneou s pen 09-24 00:00: 00 04-11 23:59 :00 No [id number] TYPE TWO DIABETES 8 unit 3 TIMES DAILY 8 unit 3 TIMES DAILY (route: subcutaneo us) Alternate Route: SUBCUTANE OUS. Med Classific ation: Endocrine lactulose 10 gram/15 mL (15 mL) oral solution 09-24 00:00: 00 Yes [id number] CONSTIPATIO N 30 mL TWICE DAILY 30 mL TWICE DAILY (route: oral) Med Classific ation: Gastroint estinal Therapy Agents Lantus Solostar U-100 Insulin 100 unit/mL (3 mL) subcutaneou s pen 09-24 00:00: 00 03-02 23:59 :00 No [id number] TYPE 2 DIABETES 10 unit AT BEDTIME 10 unit AT BEDTIME (route: subcutaneo us) Alternate Route: SUBCUTANE OUS. Med Classific ation: Endocrine midodrine 10 mg tablet 09-24 00:00: 00 Yes [id number] REGULATE BLOOD PRESSURE 1 tablet 3 TIMES DAILY 1 tablet 3 TIMES DAILY (route: oral) Med Classific ation: Cardiovas cular Therapy Agents nystatin 100,000 unit/gram topical powder 09-24 00:00: 00 Yes [id number] MOISTURE TO SKIN FOLDS OF GROIN 1 gram TWICE DAILY 1 gram TWICE DAILY (route: topical) Med Classific ation: Dermatolo gical Protonix 40 mg tablet,ada yed release 09-24 00:00: 00 Yes [id number] REFLUX 1 tablet TWICE DAILY 1 tablet TWICE DAILY (route: oral) Med Classific ation: Gastroint estinal Therapy Agents Proventil HFA 90 mcg/actuati on aerosol inhaler 09-24 00:00: 00 Yes [id number] COUGH 1 puff EVERY 6 HOURS 1 puff EVERY 6 HOURS (route: inhalation ) Med Classific ation: Respirato ry Therapy Agents tramadol 50 mg tablet 09-24 00:00: 00 Yes [id number] PAIN 2 tablet EVERY 6 HOURS PRN 2 tablet EVERY 6 HOURS PRN (route: oral) Med Classific ation: Analgesic , Anti-infl ammatory or Antipyret ic Tylenol 325 mg tablet 09-24 00:00: 00 Yes [id number] PAIN 2 tablet EVERY 6 HOURS 2 tablet EVERY 6 HOURS (route: oral) Med Classific ation: Analgesic , Anti-infl ammatory or Antipyret ic carvedilol 25 mg tablet 12-10 00:00: 00 02-26 23:59 :00 No [id number] HYPERTENSIO N 1 tablet TWICE DAILY 1 tablet TWICE DAILY (route: oral) Med Classific ation: Cardiovas cular Therapy Agents sevelamer carbonate 800 mg tablet 02-08 00:00: 00 Yes [id number] ESRD 1 tablet 3 TIMES DAILY 1 tablet 3 TIMES DAILY (route: oral) Alternate Route: BY MOUTH. Med Classific ation: Genitouri nary Therapy Lantus Solostar U-100 Insulin 100 unit/mL (3 mL) subcutaneou s pen 03-02 00:00: 00 03-04 23:59 :00 No [id number] T2D 12 unit AT BEDTIME 12 unit AT BEDTIME (route: subcutaneo us) Med Classific ation: Endocrine Basaglar KwikPen U-100 Insulin 100 unit/mL (3 mL) subcutaneou s 9-20 00:00: 00 05-02 23:59 :00 No [id number] DIABETES MELLITUS TYPE TWO 18 unit AT BEDTIME 18 unit AT BEDTIME (route: subcutaneo us) Alternate Route: SUBCUTANE OUS. Med Classific ation: Endocrine benzonatate 200 mg capsule 2023-06 0-17 00:00: 00 04-05 23:59 :00 No [id number] COUGH 1 capsule 3 TIMES DAILY 1 capsule 3 TIMES DAILY (route: oral) Med Classific ation: Respirato ry Therapy Agents doxycycline hyclate 100 mg capsule 2023-06 0-17 00:00: 00 04-05 23:59 :00 No [id number] INFECTION PREVENTION 1 capsule TWICE DAILY 1 capsule TWICE DAILY (route: oral) Med Classific ation: Anti-Infe ctive Agents insulin lispro (U-100) 100 unit/mL subcutane s pen 2023-06 0-28 00:00: 00 05-02 23:59 :00 No [id number] DIABETES MELLITUS 10 unit 3 TIMES DAILY 10 unit 3 TIMES DAILY (route: subcutaneo us) Med Classific ation: Endocrine Basaglar KwikPen U-100 Insulin 100 unit/mL (3 mL) [facility] 20[facility]-06 00:00: 00 Yes [id number] DIABETES MELLITUS 24 unit AT BEDTIME 24 unit AT BEDTIME (route: subcutaneo us) Med Classific ation: Endocrine insulin lispro (U-100) 100 unit/mL subcutane s pen 2023-06 00:00: 00 Yes [id number] DIABETES MELLITUS 12 unit 3 TIMES DAILY 12 unit 3 TIMES DAILY (route: subcutaneo us) Med Classific ation: Endocrine carvedilol 25 mg tablet 2023-06 2-13 00:00: 00 Yes [id number] HYPERTENSIO N Per instruc tions DIRECTED Per [...] THROUGHOUT THE WEEK.] Future Scheduled [facility]ACH THE PATIENT/CAREGIVER [...] RELATED TO HYPOTENSION.] Future Scheduled Test HOME [facility] NURSE WILL INSTRUCT AND VERIFY APPROPRIATE STEPS [...] TIMES PER DAY.] Future Scheduled Test HOME [facility] NURSE WILL INSTRUCT AND VERIFY APPROPRIATE STEPS [...] PRESCRIBED BY THE PHYSICIAN.] Future Scheduled Test [facility] NURSE TO INSTRUCT ON CHRONIC KIDNEY DISEASE [...] THEIR MEDICAL PROVIDER.] Future Scheduled Test THE [facility] TIFYING PHYSICIAN, ASSOCIATED PHYSICIAN, NPP OR [...] WILL BE ESTABLISHED THAT MEETS ALL PATIENT'S LONG-TERM NEEDS AND COUNTER SIGNED BY PHYSICIAN. Encounters Start Date/Time End Date/Time Encounter Type Admission Type Attending [facility] Care Facility Care Department Encounter ID Discharge Date Discharge Status Discharge Condition Discharge Reason Percent Goals Met 2023-09-25 00:00:00 2024-07-20 00:00:00 Outpatient RECERTIFIC ATJESSIE DE [facility] [id number] 22.22
--- OUTSIDE RECORDS SUMMARY | 2024-06-22 19:02 | XMS_ITS | Encounter Summary ---
Author Organization [facility] Address [address] [place] [address]. [place] [address] [place] [address] Care Team Providers Care [place] Aide Name Role Phone Mery Maxwell MD Primary Care Provider [phone] Reason for Visit * Auth/Cert (Routine) Specialty Diagnoses / Procedures Referred By Flako cardoso Referred To Contact Diagnoses Hemoptysis HEMOPTYSIS Procedures NONE Raymond Mccain MD [address] [place] [address] Phone: tel: fax: Referral ID Status Reason Start Date Expiration Date Visits Re quested Visits Authorized [id number] 1 1 Encounter Details Date Type Department Care Team (Latest Contact Info) Description 03/28/2024 5:24 PM CDT - 03/31/2024 3:12 PM CDT Hospital Encounter [facility] [address] [place] [address] Raymond Mccain MD [address] [place], [place] [id number] Devyn Warner MD [address] [place] [address] Discharge Disposition: Home or Self Care (Routine Discharge) Social History Tobacco Use Types Packs/Day Years Used Date Smoking Tobacco: Former Cigarettes 1 15 Smokeless Tobacco: Never Alcohol Use Standard Drinks/Week Comments Not Currently 0 (1 standard drink = 0.6 oz pur e alcohol) [facility] Utilities Answer Date Recorded In [...] 5:25 PM CDT Christina Mercado N urse Business Analytics Director II Active * Question Answer Date of Assessment Author Status Do you have difficulty dressing or bathing? Yes 03/28/2024 5:25 PM CDT Christina Mercado Nurse Business Analytics Director II Active Because of a physical, mental, or emotional condition, do you have difficulty doing errands alone such as visiting a doctor's office or shopping? Yes 03/28/2024 5:25 PM KELSIT Christina Mercado N urse Business Analytics Director II Active * Are you deaf or do you have serious difficulty hearing Answer Date of Assessment Author Status No 03/28/2024 5:25 PM KELSIT Christina Mercado Nu rse Business Analytics Director II Active * Are you blind or do you have serious difficulty seeing, even when wearing glasses? Answer Date of Assessment Author Status No 03/28/2024 5:25 PM Christina Avila Nu rse Business Analytics Director II Active * Do you have serious difficulty walking or climbing stairs? Answer Date of Assessment Author Status Yes 03/28/2024 5:25 PM CDT Christina Mercado Nu rsrohit Business Analytics Director II Active * Do you have difficulty dressing or bathing? Answer Date of Assessment Author Status Yes 03/28/2024 5:25 PM CDT Christina Mercado Nu rse Business Analytics Director II Active * Because of a physical, mental, or emotional condition, do you have difficulty doing errands alone such as visiting a doctor's office or shopping? Answer Date of Assessment Author Status Yes 03/28/2024 5:25 PM CDT Christina Mercado Nu rsrohit Business Analytics Director II Active documented as of this encounter Mental Status * Question Answer Entry Date Author Status Because of a physical, mental, or emotional condition, do you have serious difficulty concentrating, remembering, or making decisions? No 03/28/2024 5:25 PM CDT Christina Mercado Nurse Business Analytics Director II Active * Because of a physical, mental, or emotional condition, do you have serious difficulty concentrating, remembering, or making decisions? Answer Entry Date Author Status No 03/28/2024 5:25 PM CDT Christina Mercado Nu rse Business Analytics Director II Active documented in this encounter Discharge Summaries * Devyn Warner MD - 03/31/2024 1:47 PM CDT Images from the original note were not included. [facility] Hospitalist Discharge Summary Patient ID: Aaron Campos [id number] 53-year-old 1970 Admit date: 03/28/2024 Expected Discharge [...] History Past Medical History: Diagnosis Date A-fib ([facility] HHS/HCC) Constipation Diabetes mellitus ([facility] HHS/HCC) ESRD (end stage renal disease) ([facility] HHS/HCC) GERD (gastroesophageal reflux disease) Gout, unspecified [...] MINI PEN NEEDLES 31G X 5 MM [facility] BD VEO INSULIN SYRINGE U/F 31G X 15/64 0.5 ML [facility] Continuous Glucose Transmitter (DEXCOM G6 TRANSMITTER) [facility] ELIQUIS 5 MG tablet Take 1 tablet [...] Activity as tolerated Follow-up: Mery Maxwell MD [address] [place] [phone] Follow up in 1 week(s) cbc bmp in 1 week Nephrology for HD as scheduled Follow up Total time spent on discharge was 39 minutes. Thank you for choosing [facility]. Please call [phone] if you have any questions or concerns. [...] through Care Everywhere. * Coughing up blood (Egyptian) * Doxycycline, ADULT (Egyptian) * Benzonatate, ADULT (Egyptian) documented in this encounter Medications at Time [...] MINI PEN NEEDLES 31G X 5 MM [facility] 03/02/2024 BD VEO INSULIN SYRINGE U/F 31G X 15/64 0.5 ML [facility] 11/17/2023 Continuous Glucose Transmitter (DEXCOM G6 TRANSMITTER) [facility] 03/08/2024 ELIQUIS 5 MG tablet Take 1 [...] left upper extremity AVF with palpable thrill DEALER RELATIONSHIP MANAGER: Alert, awake Skin: Warm and dry. Labs: [...] normallyreceives dialysis on a TTS schedule at [facility] now comes in with a single episode [...] Care Includes: See above * Jessenia Brush, BB SHOT PACKER - 03/30/2024 11:07 AM CDT [facility] PULMONOLOGY [...] of hemoptysis on Eliquis, recommend discussion with glass grinder to decrease dose. - TXA nebs ordered [...] Component Value Units Date/Time OCCULT BLOOD, FECES [[id number]] Collected: 03/28/24 1210 Order Status: Completed Lab [...] type 2 diabetes mellitus gout GERD presented [facility] with chief complaint of hemoptysis streaks of [...] was also discussed with case management AND BUTTER WRAPPER. DEVYN WARNER MD 9:09 AM 03/30/2024 SUBJECTIVE [...] Component Value Units Date/Time OCCULT BLOOD, FECES [[id number]] Collected: 03/28/24 1210 Order Status: Completed Lab [...] for Falls/Injury Outcome: Progressing * Jolene Stevens, Histopath Tech - 03/29/2024 12:37 PM CDT 03/29/24 [...] type 2 diabetes mellitus gout GERD presented [facility] facility with chief complaint of hemoptysis [...] was also discussed with case management AND BUTTER WRAPPER. DEVYN WARNER MD 9:32 AM 03/29/2024 SUBJECTIVE Patient [...] Component Value Units Date/Time OCCULT BLOOD, FECES [[id number]] Collected: 03/28/24 1210 Order Status: Completed Lab [...] wheel walker;Wheelchair Behavior Oriented;Cooperative Communication Talks;Understands speaking;Understands Egyptian Current Services Being Provided Other Services (DRS 26 hours a week, 100 month) Psychosocial Need Indicator Mental health concerns No Diagnosis/prognosis resulting in poor adjustment or coping with illness No Diagnosis/prognosis with anticipated outcome of major lifestyle changes, including change in long term care administrator living environment No Complex Family concerns No [...] needs? Yes Based on the screening the [place] plan for consideration is: Patient expects to be discharged to: Home or Self care no new needs Adequate Resources Available Adequate Resources Yes [place] Only - [place] Background check [place] only - Is patient going to [facility]? No Met with patient at bedside to [...] discharge PCP: Dr Carine Maxwell Pharmacy: [facility] 03/29/24 [id number] Interdisciplinary Group Conference Team Members [...] 03/28/2024 2:05 PM CDT Accept Note Facility: ED 53yo with ESRD on TTS HD [...] type 2 diabetes mellitus g[facility] of [facility] [...] all the necessary Medications. I have reviewed Institute Scientist notes. Case was discussed w/ the patient and/or POA. All questions were answered & concerns addressed. DEVYN WARNER MD 03/28/2024 6:04 PM HPI: Patient is a 53-year-old male with past medical history of end-stage renal disease with hemodialysis on Thursday, mixed hyperlipidemia type 2 diabetes mellitus gout GERD presented to [facility] facility with chief complaint of hemoptysis patient [...] disdiadochokinesia Past Medical History: Diagnosis Date A-fib ([facility] HHS/[facility]) Constipation Diabetes mellitus ([facility]) ESRD (end stage renal disease) ([facility]) GERD (gastroesophageal reflux disease) Gout, unspecified High cholesterol Neuropathy 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[facility]) Renal disorder Social History Tobacco [...] MINI PEN NEEDLES 31G X 5 MM [facility] BD VEO INSULIN SYRINGE U/F 31G X 15/64 0.5 ML [facility] Continuous Glucose Transmitter (DEXCOM G6 TRANSMITTER) Misc [...] this encounter Consult Notes * Jessenia Brush, BB SHOT PACKER - 03/29/2024 1:02 PM CDTAssociated Order(s): IP CONSULT TO PULMONOLOGY [facility] PULMONOLOGY CONSULT NOTE Reason for admission: Hemoptysis [R04.2] Reason for consult: Hemoptysis HPI Aaron Campos is a 53-year-old male, with history of Afib (on Eliquis), DM2, ESRD (on HD TTS), HLD, GERD, and gout. Former smoker, quit 25 years ago. Smoked 1/2 ppd x 10+ years. Patient presented to [facility] 03/28 with complaints of hemoptysis for a [...] Hemoptysis Past Medical History: Diagnosis Date A-fib ([facility]) Constipation Diabetes mellitus ([facility]) ESRD (end stage renal disease) ([facility]) GERD (gastroesophageal reflux disease) Gout, unspecified High cholesterol Neuropathy 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[facility]) Renal disorder Past Surgical History: Procedure Laterality [...] Component Value Units Date/Time OCCULT BLOOD, FECES [[id number]] Collected: 03/28/24 1210 Order Status: Completed Lab [...] a TTS schedule, normally receives dialysis at [facility] on Eliquis [5 twice daily],diabetes, hypertension, heart [...] HISTORY Past Medical History: Diagnosis Date A-fib ([facility]) Constipation Diabetes mellitus ([facility]) ESRD (end stage renal disease) ([facility]) GERD (gastroesophageal reflux disease) Gout, unspecified High cholesterol Neuropathy 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[facility]) Renal disorder Past Surgical History: Procedure Laterality [...] Connections: Feeling Socially Integrated (06/14/2023) Received from [facility] OASIS D0700: Social Isolation Frequency of experiencing [...] MINI PEN NEEDLES 31G X 5 MM [facility] 03/02/24 Yes Default History Genericprovider BD VEO INSULIN SYRINGE U/F 31G X 15/64 0.5 ML [facility] 11/17/23 Yes Default History Genericprovider Continuous Glucose Transmitter (DEXCOM G6 TRANSMITTER) [facility] 03/08/24 Yes Default History Genericprovider ELIQUIS 5 [...] left upper extremity AVF with palpable thrill DEALER RELATIONSHIP MANAGER: Alert, awake Skin: Warm and dry. Access: [...] normallyreceives dialysis on a TTS schedule at [facility] now comes in with a single episode [...] st Contact Info) Description 07/20/2024 10:30 AM MASTER TECHNICIAN Office Visit [facility]-[address] [place] [phone] [address] [address] documented as of this encounter Goals Goal [...] 70 - 109 03/31/2024 1:14 PM CDT [facility] 03/31/2024 1:11 PM CDT us Devyn Warner MD POCT ORDERABLES - DEVICE Fin al Result Performing Organization Address [facility] Co de Phone Number [facility] [address] [place] [address], [place] [phone] * (ABNORMAL) POCT glucose (03/31/2024 6:14 AM CDT) GLUCOSE POC 186(H) 70 - 109 03/31/2024 6:17 AM CDT [facility] 03/31/2024 6:14 AM CDT us Devyn Warner MD POCT ORDERABLES - DEVICE Fin al Result Performing Organization Address [facility] de Phone Number [facility] [address] [place] [address], [place] [phone] * (ABNORMAL) POCT glucose (03/30/2024 8:47 PM CDT) GLUCOSE POC 213(H) 70 - 109 03/30/2024 9:00 PM CDT [facility] 03/30/2024 8:47 PM CDT us Dveyn Warner MD POCT ORDERABLES - DEVICE Fin al Result Performing Organization Address [facility] Co de Phone Number [facility] [address] [place] [address], [place] [phone] * (ABNORMAL) POCT glucose (03/30/2024 4:34 PM CDT) GLUCOSE POC 212(H) 70 - 109 03/30/2024 4:43 PM CDT [facility] 03/30/2024 4:34 PM CDT us Devyn Warner MD POCT ORDERABLES - DEVICE Fin al Result Performing Organization Address [facility]/ZIP Co de Phone Number [facility] [address] [place] [address], [place] [phone] * (ABNORMAL) POCT glucose (03/30/2024 11:16 AM CDT) GLUCOSE POC 217(H) 70 - 109 03/30/2024 11:27 AM CDT [facility] 03/30/2024 11:1 6 AM CDT us Devyn Warner MD POCT ORDERABLES - DEVICE Fin al Result Performing Organization Address [facility] de Phone Number [facility] [address] [place] [address], [place] [phone] * (ABNORMAL) POCT glucose (03/30/2024 5:58 AM CDT) GLUCOSE POC 219(H) 70 - 109 03/30/2024 5:59 AM CDT [facility] 03/30/2024 5:58 AM CDT us Devyn Warner MD POCT ORDERABLES - DEVICE Fin al Result Performing Organization Address [facility] de Phone Number [facility] [address] [place] [address], [place] [phone] * (ABNORMAL) CBC W/DIFF AUTOMATED (03/30/2024 4:30 AM CDT) WBC 7.18 4.00 - 10.80 x10'3/uL 03/30/2024 5:00 AM CDT [facility] RBC 3.43(L) 4.50 - 6.10 x10'6/uL 03/30/2024 5:00 AM CDT [facility] HGB 11.3(L) 12.0 - 16.0 G/DL 03/30/2024 5:00 AM CDT [facility] HCT 34.5(L) 37.0 - 52.0 % 03/30/2024 5:00 AM CDT [facility] MCV 100.6(H) 78.0 - 100.0 FL 03/30/2024 5:00 AM CDT [facility] MCH 32.9(H) 27.0 - 31.0 PG 03/30/2024 5:00 AM CDT [facility] MCHC 32.8(L) 33.0 - 36.0 G/DL 03/30/2024 5:00 AM CDT [facility] RDW 13.7 11.5 - 14.5 % 03/30/2024 5:00 AM CDT [facility] PLT 176 150 - 350 x10'3/uL 03/30/2024 5:00 AM CDT [facility] MPV 9.7 7.4 - 10.4 FL 03/30/2024 5:00 AM CDT [facility] DIFFERENTIAL TYPE AUTOMATED DIFFERENTIAL 03/30/2024 5:00 AM CDT [facility] SEG NEUTROPHILS 63.2 % 5:00 AM CDT [facility] LYMPHOCYTES 24.0 % 03/30/2024 5:00 AM CDT [facility] MONOCYTES 8.1 % 03/30/2024 5:00 AM CDT [facility] EOSINOPHILS 3.2 % 03/30/2024 5:00 AM CDT [facility] BASOPHILS 0.7 % 03/30/2024 5:00 AM CDT [facility] IMMATURE GRANS % 0.8 % 03/30/20 5:00 AM CDT [facility] ABS. NEUTROPHILS 4.54 1.60 - 8.30 x10'3/uL 03/30/2024 5:00 AM CDT [facility] ABS. LYMPHOCYTES 1.72 0.80 - 4.70 x10'3/uL 03/30/2024 5:00 AM CDT [facility] ABS. MONOCYTES 0.58 0.00 - 1.50 x10'3/uL 03/30/2024 5:00 AM CDT [facility] ABS. EOSINOPHILS 0.23 0.00 - 0.40 x10'3/uL 03/30/2024 5:00 AM CDT [facility] ABS. BASOPHILS 0.05 0.00 - 0.20 x10'3/uL 03/30/2024 5:00 AM CDT [facility] ABS. IMMATURE GRANULOCYTES 0.06(H) 0.00 - 0.03 x10'3/uL 03/30/2024 5:00 AM CDT [facility] ABS. NUCLEATED RBC'S 0.00 0.00 - 0.01 x10'3/uL 03/30/2024 5:00 AM CDT [facility] NRBC % 0.0 % 03/30/2024 5:00 AM CDT [facility] 03/30/2024 4:30 AM CDT us Devyn Warner MD LABORATORY Final Result [facility] [address] [place] [address], [id number] * (ABNORMAL) POCT glucose (03/29/2024 8:44 PM CDT) [facility] GLUCOSE POC 244(H) 70 - 109 03/29/2024 8:46 PM CDT [facility] 03/29/2024 8:44 PM CDT us Devyn Warner MD POCT ORDERABLES - DEVICE Fin al Result Performing Organization Address [facility] de Phone Number [facility] [address] [place] [address], [place] [phone] * (ABNORMAL) POCT glucose (03/29/2024 4:22 PM CDT) GLUCOSE POC 190(H) 70 - 109 03/29/2024 5:05 PM CDT [facility] 03/29/2024 4:22 PM CDT us Devyn Warner MD POCT ORDERABLES - DEVICE Fin al Result Performing Organization Address [facility] de Phone Number [facility] [address] [place] [address], [place] [phone] * (ABNORMAL) POCT glucose (03/29/2024 1:50 PM CDT) GLUCOSE POC 130(H) 70 - 109 03/29/2024 1:55 PM CDT [facility] 03/29/2024 1:50 PM CDT us Devyn Warner MD POCT ORDERABLES - DEVICE Fin al Result Performing Organization Address [facility] de Phone Number [facility] [address] [place] [address], [place] [phone] * HEPATITIS B CORE ANTIBODY (03/29/2024 7:49 AM CDT) HEP B CORE TOTAL AB NON-REACTI VE NON-REACTI VE 03/29/2024 9:29 AM CDT [facility] Comment:IgM and IgG anti HBc not detected. 03/29/2024 7:49 AM CDT us Rolan Simon MD LABORATORY Final Resu lt Performing Organization Address [facility] Co de Phone Number [facility] [address] [place] [address], [place] [phone] * (ABNORMAL) HEPATITIS B SURFACE ANTIBODY (03/29/2024 7:49 AM CDT) HEP B SURFACE AB <3.1(L) >9.9 MIU/ML 03/29/2024 9:04 AM CDT [facility] Comment:INDIVIDUAL IS CONSID ERED NOT IMMUNE TO HBV INFECTION. 03/29/2024 7:49 AM CDT us Rolan Simon MD LABORATORY Final Resu lt Performing Organization Address [facility] de Phone Number [facility] [address] [place] [address], [place] [phone] * HEPATITIS B SURFACE AG, EIA (03/29/2024 7:49 AM CDT) HEPATITIS B SURFACE AG NON-REACTI VE NON-REACTI VE 03/29/2024 9:04 AM CDT [facility] Comment:HBsAg NOT DETECTED. 03/29/2024 7:49 AM CDT us Rolan Simon MD LABORATORY Final Resu lt Performing Organization Address [facility] Co de Phone Number [facility] [address] [place] [address], [place] [phone] * (ABNORMAL) POCT glucose (03/29/2024 6:34 AM CDT) GLUCOSE POC 192(H) 70 - 109 03/29/2024 6:36 AM CDT [facility] 03/29/2024 6:34 AM CDT us Devyn Warner MD POCT ORDERABLES - DEVICE Fin al Result [facility] [address] [place] [address], [phone] * (ABNORMAL) BASIC METABOLIC PANEL (03/29/2024 4:06 AM CDT) [facility] SODIUM S/P/B 134(L) 136 - 145 MMOL/L 03/29/2024 5:22 AM CDT [facility] POTASSIUM S/P/B 4.2 3.5 - 5.1 MMOL/L 03/29/2024 5:22 AM CDT [facility] CHLORIDE S/P/B 101 97 - 115 MMOL/L 03/29/2024 5:22 AM CDT [facility] CO2 24.5 21.0 - 32.0 MMOL/L 03/29/2024 5:22 AM CDT [facility] GLUCOSE 204(H) 74 - 106 MG/DL 03/29/2024 5:22 AM CDT [facility] BUN 85(H) 7 - 18 MG/DL 03/29/2024 5:22 AM CDT [facility] CREATININE S/P/B 7.01(H) 0.70 - 1.30 MG/DL 03/29/2024 5:22 AM CDT [facility] CALCIUM S/P/B 9.7 8.5 - 10.1 MG/DL 03/29/2024 5:22 AM CDT [facility] ANION GAP 8.5 2.0 - 10.0 MMOL/L 03/29/2024 5:22 AM CDT [facility] OSMOLALITY (CALC) 310 MOSM/KG 10/15/2 024 5:22 AM CDT [facility] Comment:REFERENCE RANGE NOT ESTABLISHED GFR ESTIMATE 9(L) >90 ML/MIN/1. 73 M2 03/29/2024 5:22 AM CDT [facility] GFR NOTES GFR REFERENCE S: 03/29/2024 5:22 AM CDT [facility] Comment: THE ESTIMATED GFR [...] us Devyn Warner MD LABORATORY Final Result [facility] [address] [place] [address], [id number] * (ABNORMAL) CBC W/DIFF AUTOMATED (03/29/2024 4:06 AM CDT) WBC 7.36 4.00 - 10.80 x10'3/uL 03/29/2024 4:23 AM CDT [facility] RBC 3.13(L) 4.50 - 6.10 x10'6/uL 03/29/2024 4:23 AM CDT [facility] HGB 10.3(L) 12.0 - 16.0 G/DL 03/29/2024 4:23 AM CDT [facility] HCT 31.4(L) 37.0 - 52.0 % 03/29/2024 4:23 AM CDT [facility] MCV 100.3(H) 78.0 - 100.0 FL 03/29/2024 4:23 AM CDT [facility] MCH 32.9(H) 27.0 - 31.0 PG 03/29/2024 4:23 AM CDT [facility] MCHC 32.8(L) 33.0 - 36.0 G/DL 03/29/2024 4:23 AM CDT [facility] RDW 13.5 11.5 - 14.5 % 03/29/2024 4:23 AM CDT [facility] PLT 174 150 - 350 x10'3/uL 03/29/2024 4:23 AM CDT [facility] MPV 10.1 7.4 - 10.4 FL 03/29/2024 4:23 AM CDT [facility] DIFFERENTIAL TYPE AUTOMATED DIFFERENTIAL 03/29/2024 4:23 AM CDT [facility] SEG NEUTROPHILS 62.7 % 4:23 AM CDT [facility] LYMPHOCYTES 25.3 % 03/29/2024 4:23 AM CDT [facility] MONOCYTES 7.2 % 03/29/2024 4:23 AM CDT [facility] EOSINOPHILS 3.3 % 03/29/2024 4:23 AM CDT [facility] BASOPHILS 0.7 % 03/29/2024 4:23 AM CDT [facility] IMMATURE GRANS % 0.8 % 03/29/20 4:23 AM CDT [facility] ABS. NEUTROPHILS 4.62 1.60 - 8.30 x10'3/uL 03/29/2024 4:23 AM CDT [facility] ABS. LYMPHOCYTES 1.86 0.80 - 4.70 x10'3/uL 03/29/2024 4:23 AM CDT [facility] ABS. MONOCYTES 0.53 0.00 - 1.50 x10'3/uL 03/29/2024 4:23 AM CDT [facility] ABS. EOSINOPHILS 0.24 0.00 - 0.40 x10'3/uL 03/29/2024 4:23 AM CDT [facility] ABS. BASOPHILS 0.05 0.00 - 0.20 x10'3/uL 03/29/2024 4:23 AM CDT [facility] ABS. IMMATURE GRANULOCYTES 0.06(H) 0.00 - 0.03 x10'3/uL 03/29/2024 4:23 AM CDT [facility] ABS. NUCLEATED RBC'S 0.00 0.00 - 0.01 x10'3/uL 03/29/2024 4:23 AM CDT [facility] NRBC % 0.0 % 03/29/2024 4:23 AM CDT [facility] 03/29/2024 4:06 AM CDT us Devyn Warner MD LABORATORY Final Result Performing Organization Address [facility] Co de Phone Number [facility] [address] [place] [address], [place] [phone] * (ABNORMAL) POCT glucose (03/28/2024 8:54 PM CDT) GLUCOSE POC 201(H) 70 - 109 03/28/2024 8:56 PM CDT [facility] 03/28/2024 8:54 PM CDT us Devyn Warner MD POCT ORDERABLES - DEVICE Fin al Result Performing Organization Address [facility] Co de Phone Number [facility] [address] [place] [address], [place] [phone] documented in this encounter Visit Diagnoses Diagnosis [...] 0901 (Not Given - Provider: Linda Ramirez, DIRECTOR HARDWARE - Reason: Patient not available)1600 (Canceled Entry [...] Dialysis documented in this encounter Care Teams [place] Aide Relationship Specialty Start Date End Date Mery Maxwell MD [address] [place] [phone] PCP - General FAMILY PRACTICE 08/19/23 documented as of this encounter
--- OUTSIDE RECORDS SUMMARY | 2024-06-22 19:02 | XMS_ITS | Encounter Summary ---
Author Organization [facility] Address [address] [place] [address]. [place], [place] [address] [place] [address] Care Team Providers Care Field Ring Assembler Name Role Phone Mery Maxwell MD Primary Care Provider [phone]- [phone] Reason for Referral * Imaging (Emergency) - New Request Specialty Diagnoses / Procedures Referred By Flako cardoso Referred To Contact RADIOLOGY Procedures CTA CHEST PE PROTOCOL Kelly Londono MD [address] [place] [address] Phone: tel: fax: Referral ID Status Reason Start Date Expiration Date V isits Requested Visits Authorized [id number] New Request 03/28/2024 03/28/2025 1 1 Reason for Visit * Reason Comments Hemoptysis Encounter Details Date Type Department Care Team ([facility] st Contact Info) Description 03/28/2024 10:29 AM CDT - 03/28/2024 4:22 PM CDT Emergency [facility] [address] [address] Hemoptysis Discharge Disposition: Transfer to Acute Care Hospital Social History Tobacco Use Types Packs/Day Years Used Date Smoking Tobacco: Former Cigarettes 1 15 Smokeless Tobacco: Never Alcohol Use Standard Drinks/Week Comments Not Currently 0 (1 standard drink = 0.6 oz pur e alcohol) [facility] Utilities Answer Date Recorded In the [...] any time in the past 12 m [facility], were you homeless or living in a fpc (including now)? No 03/28/2024 Sex and Gender [...] 5:25 PM CDT Christina Mercado [employer] Slot Supervisor II Active * Are you blind or do you have serious difficulty seeing, even when wearing glasses? Answer Date of Assessment Author Status No 03/28/2024 5:25 PM CDT Christina Mercado [employer] Slot Supervisor II Active * Do you have serious difficulty walking or climbing stairs? Answer Date of Assessment Author Status Yes 03/28/2024 5:25 PM CDT Christina Mercado [employer] Slot Supervisor II Active * Do you have difficulty dressing or bathing? Answer Date of Assessment Author Status Yes 03/28/2024 5:25 PM CDT Christina Mercado [employer] Slot Supervisor II Active * Because of a physical, mental, or emotional condition, do you have difficulty doing errands alone such as visiting a doctor's office or shopping? Answer Date of Assessment Author Status Yes 03/28/2024 5:25 PM CDT Christina Mercado [employer] Slot Supervisor II Active documented as of this encounter Mental Status * Because of a physical, mental, or emotional condition, do you have serious difficulty concentrating, remembering, or making decisions? Answer Entry Date Author Status No 03/28/2024 5:25 PM Christina Avila [employer] Slot Supervisor II Active documented in this encounter Medications [...] NEEDLES 31G X 5 MM [facility] 03/02/2024 BD VEO INSULIN SYRINGE U/F 31G X 15/64 0.5 ML [facility] 11/17/2023 Continuous Glucose Transmitter (DEXCOM G6 TRANSMITTER) [facility] 03/08/2024 ELIQUIS 5 MG tablet Take 1 [...] 03/28/2024 3:12 PM CDT Gave report to [facility] To go to room 1108. 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 Genitourinary: Comments: Rectal exam performed with hand sprayer Musculoskeletal: General: Normal range of motion. Cervical [...] CHEST PE PROTOCOL Final Result by User, [email or web address] (03/28 1250) [address] [place] [address] Examination: CTA chest. Exam time: 1229 hours. [...] XR CHEST PORTABLE Final Result by User, [email or web address] (03/28 1113) [address] [place] [address] Examination: XR CHEST PORTABLE Exam time: 03/28/2024 [...] with consultants: Dr. Mccain accepting physician at [place] RISK: Prescription drug management considered: None Diagnosis and treatment significantly limited by: None Hospitalization considered: Yes transfer to higher level of care for hemoptysis and patient on a blood thinner. May need pulmonary and the scope. We do not have these resources available at [place] ED Diagnosis: SNOMED CT(R) 1. 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 [address] Examination: CTA chest. Exam time: 1229 hours. [...] Procedure Note Hans Gonsalves MD - 03/28/2024 [facility] [address] [place] [address] Examination: CTA chest. Exam time: 1229 hours. [...] BLOOD, FECES (03/28/2024 12:10 PM CDT) Pathologist [facility] OCCULT BLOOD FECAL NEGATIVE NEGATIVE 03/28/2024 12:19 PM CDT [facility] STOOL SPECIMEN / Unknown 03/28/2024 12:10 PM CDT Kelly Londono MD BODY FLUIDS AND STOOLS ORDER KRIS Final Result [facility] [place] [address], * (ABNORMAL) COMPREHENSIVE METABOLIC PANEL (03/28/2024 11:18 AM CDT) SODIUM S/P/B 136 136 - 145 MMOL/L 03/28/2024 11:55 AM CDT [facility] POTASSIUM S/P/B 4.4 3.5 - 5.1 MMOL/L 03/28/2024 11:55 AM CDT [facility] CHLORIDE S/P/B 97(L) 98 - 107 MMOL/L 03/28/2024 11:55 AM CDT [facility] CO2 28.3 21.0 - 32.0 MMOL/L 03/28/2024 11:55 AM CDT [facility] GLUCOSE 277(H) 70 - 99 MG/DL 03/28/2024 11:55 AM T [facility] Comment: FASTING GLUCOSE 100 TO 125 MG/DL IS CONSISTENT WITH IMPAIRED FASTING GLUCOSE. FASTING GLUCOSE >125 MG/DL IS CONSISTENT WITH DIABETES. RANDOM GLUCOSE >200 MG/DL WITH HYPERGLYCEMIC SYMPTOMS IS CONSISTENT WITH DIABETES. PER ADA GUIDELINES BUN 74(H) 6 - 24 MG/DL 03/28/2024 11:55 AM T [facility] CREATININE S/P/B 6.65(H) 0.70 - 1.30 MG/DL 03/28/2024 11:55 AM T [facility] CALCIUM S/P/B 9.7 8.4 - 10.5 MG/DL 03/28/2024 11:[address] [facility] BILIRUBIN TOTAL S/P/B 0.5 0.2 - 1.0 MG/DL 03/28/2024 11:[address] [facility] Comment: THIS ASSAY IS NOT RECOMMENDED FOR PATIENTS UNDERGOING TREATMENT WITH ELTROMBOPAG DUE TO THE POTENTIAL FOR FALSELY ELEVATED RESULTS. ALKALINE PHOSPHATASE S/P/B 56 45 - 115 U/L 03/28/2024 11:[address] [facility] AST 11(L) 15 - 37 U/L 03/28/2024 11:[address] [facility] ALT 13(L) 16 - 63 U/L 03/28/2024 11:[address] [facility] TOTAL PROTEIN S/P/B 7.6 6.4 - 8.2 G/DL 03/28/2024 11:[address] [facility] ALBUMIN S/P/B 3.3(L) 3.4 - 5.0 G/DL 03/28/2024 11:[address] [facility] ANION GAP 10.7 5.0 - 15.0 MMOL/L 03/28/2024 11:[address] [facility] OSMOLALITY (CALC) 314 MOSM/KG 024 11:[address] [facility] Comment:REFERENCE RANGE NOT ESTABLISHED GFR ESTIMATE 9(L) >89 ML/MIN/1. 73 M2 03/28/2024 11:55 AM CDT [facility] GFR NOTES GFR REFERENCE S: 03/28/2024 11:55 AM CDT [facility] Comment: THE ESTIMATED GFR IS CALCULATED [...] us Kelly Londono MD LABORATORY Final Result [facility] [address] [place] [address], * PARTIAL THROMBOPLASTIN TIME,PTT (03/28/2024 11:18 AM CDT) PTT 35.4 25.1 - 36.5 SEC 03/28/2024 11:39 AM CDT [facility] Comment:THERAPEUTIC RANGE: 4 6.2-77.0 SEC 03/28/2024 11:1 8 AM CDT us Kelly Londono MD LABORATORY Final Result [facility] [address] [place] [address], * (ABNORMAL) PROTIME/INR, VENOUS (03/28/2024 11:18 AM CDT) PROTIME 16.8(H) 9.4 - 12.5 SEC 03/28/2024 11:39 AM CDT [facility] INR 1.5(H) 0.8 - 1.0 03/28/2024 11:39 AM CDT [facility] 03/28/2024 11:1 8 AM CDT Kelly Londono MD LABORATORY Final Result [facility] [address] [place] [address], * (ABNORMAL) CBC W/DIFF AUTOMATED (03/28/2024 11:18 AM CDT) WBC 7.28 4.00 - 10.80 x10'3/uL 03/28/2024 11:27 AM CDT [facility] RBC 3.37(L) 4.50 - 6.10 x10'6/uL 03/28/2024 11:27 AM CDT [facility] HGB 11.2(L) 13.0 - 18.0 G/DL 03/28/2024 11:27 AM CDT [facility] HCT 33.6(L) 37.0 - 52.0 % 03/28/2024 11:27 AM CDT [facility] MCV 99.7 78.0 - 100.0 FL 03/28/2024 11:27 AM CDT [facility] MCH 33.2(H) 27.0 - 31.0 PG 03/28/2024 11:27 AM CDT [facility] MCHC 33.3 33.0 - 36.0 G/DL 03/28/2024 11:27 AM CDT [facility] RDW 13.3 11.5 - 14.5 % 03/28/2024 11:27 AM CDT [facility] PLT 176 150 - 350 x10'3/uL 03/28/2024 11:27 AM CDT [facility] MPV 9.5 7.4 - 10.4 FL 03/28/2024 11:27 AM CDT [facility] CBC COMMENT NORMAL REFERENCE RANGE NOT ESTABLISHED FOR THE PROPORTIONAL LEUKOCYTE DIFFERENTIAL. 03/28/2024 11:27 AM CDT [facility] NEUTROPHILS % 76.3 % 03/28/2024 11:27 AM CDT [facility] LYMPHOCYTES % 15.0 % 03/28/2024 11:27 AM T [facility] MONOCYTES % 5.2 % 03/28/2024 11:27 AM T [facility] EOSINOPHILS % 2.1 % 03/28/2024 11:27 AM CDT [facility] BASOPHILS % 0.7 % 03/28/2024 11:27 AM T [facility] IMMATURE GRANS % 0.7 % 03/28/20 11:27 AM T [facility] NRBC % 0.0 % 03/28/2024 11:27 AM T [facility] ABS. NEUTROPHILS 5.56 1.60 - 8.30 x10'3/uL 03/28/2024 11:27 AM CDT [facility] ABS. LYMPHOCYTES 1.09 0.80 - 4.70 x10'3/uL 03/28/2024 11:27 AM T [facility] ABS. MONOCYTES 0.38 0.00 - 1.50 x10'3/uL 03/28/2024 11:27 AM T [facility] ABS. EOSINOPHILS 0.15 0.00 - 0.40 x10'3/uL 03/28/2024 11:27 AM T [facility] ABS. BASOPHILS 0.05 0.00 - 0.20 x10'3/uL 03/28/2024 11:27 AM T [facility] ABS. IMMATURE GRANULOCYTES 0.05(H) 0.00 - 0.03 x10'3/uL 03/28/2024 11:27 AM T [facility] ABS. NUCLEATED RBC'S 0.00 0.00 - 0.01 x10'3/uL 03/28/2024 11:27 AM T [facility] 03/28/2024 11:1 8 AM CDT us Kelly Londono MD LABORATORY Final Result [facility] [address] [place] [address], * XR CHEST PORTABLE (03/28/2024 11:07 AM [...] 11:11 AM Narrative 03/28/2024 11:12 AM CDT [address] [place] [address] Examination: XR CHEST PORTABLE Exam time: 03/28/2024 11:02 AM Clinical history: Hematemesis. Comparison: Radiograph February 25, 2024 and December 31, 2023. Technique: AP image of the chest. Findings: The heart is normal in size. No vascular congestion or pleural effusion. Hazy left retrocardiac opacities are noted, nonspecific. No pneumothorax identified. Osseous structures appear intact. Procedure Note Toño Borges MD - 03/28/[address] [place] [address] Examination: XR CHEST PORTABLE Exam time: 03/28/2024 [...] RTR) documented in this encounter Care Teams Field Ring Assembler Relationship Specialty Start Date End Date Mery Maxwell MD [address] [place] [phone] PCP - General FAMILY PRACTICE 08/19/23 documented as of this encounter
--- OUTSIDE RECORDS SUMMARY | 2024-06-22 19:02 | XMS_ITS | Encounter Summary ---
Author Organization [facility] Address [address] [place] [address]. [place] [address] [place] [address] Care Team Providers Care Director Of Regulatory Affairs Name Role Phone Mery Maxwell MD Primary Care Provider +1- [phone] Reason for Referral * Imaging (Emergency) - New Request Specialty Diagnoses / Procedures Referred By Flako cardoso Referred To Contact RADIOLOGY Procedures CT HEAD WO CON Belinda Higgins DO [address] [place] [address] Phone: tel: fax: Referral ID Status Reason Start Date Expiration Date V isits Requested Visits Authorized [id number] New Request 02/26/2024 02/25/2025 1 1 Reason for Visit * Reason Comments Generalized Weakness Encounter Details Date Type Department Care Team (Late st Contact Info) Description 02/25/2024 10:22 PM CDT - 02/26/2024 4:12 AM CDT Emergency [facility] [address] [facility] [place] [address] Belinda Higgins DO [address] [place] [address] Generalized Weakness Discharge Disposition: Other Facility with Planned Inpatient Readmission Social History Tobacco Use Types Packs/Day Years Used Date Smoking Tobacco: Former Cigarettes 1 15 Smokeless Tobacco: Never Alcohol Use Standard Drinks/Week Comments Not Currently 0 (1 standard drink = 0.6 oz pur e alcohol) [facility] Utilities Answer Date Recorded In the past 12 months has PhoneTell, gas, oil, or water [employer] threatened to shut off services in your [...] any time in the past 12 m [facility], were you homeless or living in a nursing home (including now)? 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 [address] Test Date: 2024-02-25 Pat Name: VINAY WILBURN Department: 3 Room: Gender: Male Home Health Care Case Manager: : 1970 Requested By: BELINDA HIGGINS Order Number: [id number] Reading MD: Measurements Intervals [place] Rate: 72 P: 38 SC: 188 QRS: -26 QRSD: 96 T: 35 QT: 427 QTc: 470 Interpretive Statements SINUS RHYTHM BORDERLINE LEFT AXIS DEVIATION Labs Reviewed LACTIC ACID W REFLEX (SEPSIS) CT HEAD WO CON Final Result by User, [email or web address] (02/25 221) [facility] [address] [place] [address] INDICATION: Dizziness. COMPARISON: September 01, 2023. TECHNIQUE: [...] of 02/26/24 0320 ThuFeb 26, [address] [facility] Connect contacted. [CL] 0104 Dr. Celis. He would like lactic acid and head CT and continue to monitor. [CL] [address] Celis. He will accept to [facility] tele. 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 In an effort to expedite patient care, this report has not been adjusted for typographical, grammatical, and syntax by a trained certified medical records coder. 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 COMPARISON: September 01, 2023. TECHNIQUE: [...] Procedure Note Steve Bess MD - 02/26/2024 [facility] [address] [place] [address] INDICATION: Dizziness. COMPARISON: September 01, 2023. TECHNIQUE: [...] - 2.0 MMOL/L 02/26/2024 1:43 AM CDT [facility] 02/26/2024 1:17 AM CDT us Belinda Higgins DO LABORATORY Final Result [facility] [address] [place] [address], * ECG 12 lead (02/25/2024 10:11 PM CDT) 02/25/2024 10:1 1 PM CDT Narrative [facility] - 02/26/2024 5:30 PM CDT ? [facility] ?[address] [place], [place] ??[address] ? Test Date: ?2024-02-25 Pat Name: ? VINAY WILBURN ?Department: ?? 3 ? Room: ? Gender: ? Male ? Home Health Care Case Manager: ?? : ?1970 ? Requested By: BELINDA HIGGINS Order Number: [id number] ? Reading MD: ?? Diane Filomenalamothu ? Measurements Intervals ?[place] ? Rate: ? 72 ? P: ?38 SC: ? 188 ?QRS: ?-26 QRSD: ? 96 ? T: ?35 QT: ? 427 ? QTc: ?470 ? Interpretive Statements SINUS RHYTHM BORDERLINE LEFT AXIS DEVIATION Procedure Note Timbo Valdez MD - 02/26/2024 [facility] [address] [place] [address] Test Date: 2024-02-25 Pat Name: VINAY WILBURN Department: 3 Room: Gender: Male Home Health Care Case Manager: : 1970 Requested By: BELINDA HIGGINS Order Number: [id number] Reading MD: Jonnathan Measurements Intervals [place] Rate: 72 P: 38 SC: 188 QRS: -26 QRSD: 96 T: 35 QT: 427 QTc: 470 Interpretive Statements SINUS RHYTHM BORDERLINE LEFT AXIS DEVIATION us Belinda Higgins DO ECG ORDERABLES Final Result [facility] documented in this encounter Visit [...] RN) documented in this encounter Care Teams Director Of Regulatory Affairs Relationship Specialty Start Date End Date Mery Maxwell MD [address] [place] [phone] PCP - General FAMILY PRACTICE 08/19/23 documented as of this encounter
--- OUTSIDE RECORDS SUMMARY | 2024-06-22 19:03 | XMS_ITS | Encounter Summary ---
Author Organization [facility] Address [address] [place] [address]. [place] [address] [place] [address] Care Team Providers Care Breakfast Manager Name Role Phone Mery Maxwell MD Primary Care Provider [phone]- [phone] Reason for Referral * Imaging (Emergency) - New Request Specialty Diagnoses / Procedures Referred By Flako cardoso Referred To Contact RADIOLOGY Procedures CT ABD+PEL WO CON Aaron Austin MD [address] [place] [address] Phone: tel: fax: Referral ID Status Reason Start Date Expiration Date V isits Requested Visits Authorized [id number] New Request 08/19/2023 08/18/2024 1 1 ER MACHINE OPERATOR Reason for Visit * Reason Comments Hypotension Encounter Details Date Type Department Care Team (Late st Contact Info) Description 08/19/2023 5:13 PM HALVER MACHINE OPERATOR - 08/19/2023 7:16 PM HALVER MACHINE OPERATOR Emergency [facility] [address] [facility] [place] [address] Aaron Austin MD [address] [place] [address] Hypotension Discharge Disposition: Home or [...] Comments Blood Pressure 125/68 08/19/2023 7:00 PM HALVER MACHINE OPERATOR Pulse 73 08/19/2023 7:15 PM HALVER MACHINE OPERATOR Temperature 35.8 ??C (96.4 ??F) 08/19/2023 5:17 PM CS T Respiratory Rate 16 08/19/2023 6:57 PM HALVER MACHINE OPERATOR Oxygen Saturation 95% 08/19/2023 7:15 PM HALVER MACHINE OPERATOR Inhaled Oxygen Concentration - - Weight 121.6 kg (268 lb) 08/19/2023 5:17 PM HALVER MACHINE OPERATOR Height 193 cm (6' 4 ) 08/19/2023 5:17 PM HALVER MACHINE OPERATOR Body Mass Index 32.62 08/19/2023 5:17 PM HALVER MACHINE OPERATOR documented in this encounter Discharge Instructions * Attachments The following attachments cannot be sent through Care Everywhere. * Orthostatic hypotension (Sammarinese) * Kidney Failure Discharge Instructions (Sammarinese) * Constipation Discharge Instructions, Adult (Sammarinese) documented in this encounter Medications at Time [...] 6:40 PM CST Note on wrong patient ER MACHINE OPERATOR ER MACHINE OPERATOR * Obi Stauffer RN - 08/19/2023 6:[address] [facility] dispatch called to transfer P.t. back to their residence. ER MACHINE OPERATOR * Naima Crum RN - 08/19/2023 5:40 PM CST PT ARRIVES VIA EMS FROM PCP OFFICE. PT WAS TRYING TO ESTABLISH CARE. PT WAS STATES HE WAS NOT FEELING WELL PT SBP WAS IN THE 80S. PT BP 115/71 C/O LEFT SIDED ABD PAIN. RATES PAIN 8/10 ER MACHINE OPERATOR * Aaron Austin MD - 08/19/2023 5:19 [...] HISTORY Past Medical History: Diagnosis Date A-fib ([facility]) ([facility]) Constipation Diabetes mellitus ([facility]) ([facility]) ESRD (end stage renal disease) ([facility]) ([facility]) GERD (gastroesophageal reflux disease) Gout, unspecified High cholesterol Neuropathy 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[facility]) SURGICAL HISTORY Past Surgical History: Procedure Laterality [...] ABD+PEL WO CON Final Result by User, [id number] (08/18 1828) EXAMINATION: CT abdomen/pelvis without contrast [...] evidence of gallbladder inflammation. Ordered By: AARON AUSITN Interpreted By: Jimmy Corado DO, 08/19/2023 6:23 [...] REGION 4. Constipation CONSTIPATION Mery Maxwell MD [address] [place] [id number] Schedule an appointment as soon as possible for a visit New Prescriptions LACTULOSE 20 GM/30ML SOLUTION Take 30 mLs (20 g total) by mouth 2 (two) times daily as needed (constipation). TRAMADOL (ULTRAM) 50 MG TABLET Indications: Acute Pain < 7 Day Supply 1-2 every 6 hours as needed for pain Aaron Austin MD 08/19/23 1838 ER MACHINE OPERATOR documented in this encounter Plan of Treatment Upcoming Encounters Date Type Department Care Team (Late st Contact Info) Description 07/20/2024 10:30 AM HALVER MACHINE OPERATOR Office Visit [facility]-[address] [place] [phone] Martha Ramirez, [facility] [address] documented as of this encounter Procedures Procedure Name Priority Date/Time Associated Diagnosis Comments CT ABD+PEL WO CON STAT 08/19/2023 6:1 2 PM HALVER MACHINE OPERATOR ECG 12-LEAD Routine 08/19/2023 5:41 PM HALVER MACHINE OPERATOR COMPREHENSIVE METABOLIC PANEL STAT 08/19/2023 5:32 PM HALVER MACHINE OPERATOR CBC W/DIFF AUTOMATED STAT 08/19/2023 5:32 PM HALVER MACHINE OPERATOR TROPONIN, QUANT STAT 08/19/2023 5:32 PM HALVER MACHINE OPERATOR documented in this encounter Results * CT ABD+PEL WO CON (08/19/2023 6:12 PM HALVER MACHINE OPERATOR) Anatomical Region Laterality Modality Abdomen Computed Tomogra phy 08/19/2023 6:23 PM HALVER MACHINE OPERATOR Impressions 08/19/2023 6:28 PM HALVER MACHINE OPERATOR IMPRESSION: 1. The rectum is distended with [...] 08/19/2023 6:23 PM Narrative 08/19/2023 6:28 PM HALVER MACHINE OPERATOR EXAMINATION: CT abdomen/pelvis without contrast HISTORY: Abdominal [...] * ECG 12 lead (08/19/2023 5:41 PM HALVER MACHINE OPERATOR) 08/19/2023 5:41 PM HALVER MACHINE OPERATOR Narrative [facility] - 08/19/2023 5:44 PM HALVER MACHINE OPERATOR ? [facility] ?[address] [place], [place] ??[address] ? Test Date: ?2023-08-19 Pat Name: ? AARON CAMPOS ?Department: ?? 3 ? Room: ? EXAM 505 Gender: ? Male ? Rn Hedis: ?? : ?1970 ? Requested By: AARON AUSTIN Order Number: [id number] ? Reading MD: ?? Effie Loja ? Measurements Intervals ?Reading ? Rate: ? 65 ? P: ? ME: ? 0 ?QRS: ?4 QRSD: ? 95 ? T: ?0 QT: ? 323 ? QTc: ?338 ? Interpretive Statements ATRIAL FIBRILLATION SEPTAL MYOCARDIAL INFARCTION , PROBABLY OLD ER MACHINE OPERATOR Procedure Note Effie Loja MD - 08/19/2023 [address] [place] [address] Test Date: 2023-08-19 Pat Name: AARON BURKSGRZEGORZ Department: 3 Room: EXAM 505 Gender: Male Rn Hedis: : 1970 Requested By: AARON AUSTIN Order Number: [id number] Reading MD: Effie Loja Measurements Intervals Reading Rate: 65 P: ME: 0 QRS: 4 QRSD: 95 T: 0 QT: 323 QTc: 338 Interpretive Statements ATRIAL FIBRILLATION SEPTAL MYOCARDIAL INFARCTION , PROBABLY OLD ER MACHINE OPERATOR us Aaron Austin MD ECG ORDERABLES Final Result Performing Organization Address [facility] de Phone Number [facility] * TROPONIN, QUANT (08/19/2023 5:32 PM HALVER MACHINE OPERATOR) TROPONIN I HIGH SENSITIVITY 7 0 - 76 ng/L 08/19/2023 5:59 PM HALVER MACHINE OPERATOR [facility] 08/19/2023 5:32 PM HALVER MACHINE OPERATOR Aaron Austin MD LABORATORY Final Result Performing Organization Address [facility] de Phone Number [facility] [address] [id number], * (ABNORMAL) COMPREHENSIVE METABOLIC PANEL (08/19/2023 5:32 PM HALVER MACHINE OPERATOR) SODIUM S/P/B 137 136 - 145 MMOL/L 08/19/2023 5:59 PM [facility] POTASSIUM S/P/B 3.3(L) 3.5 - 5.1 MMOL/L 08/19/2023 5:59 PM [facility] CHLORIDE S/P/B 96(L) 98 - 107 MMOL/L 08/19/2023 5:59 PM [facility] CO2 27.1 21.0 - 32.0 MMOL/L 08/19/2023 5:59 PM [facility] GLUCOSE 282(H) 70 - 99 MG/DL 08/19/2023 5:59 PM [facility] Comment: FASTING GLUCOSE 100 TO 125 MG/DL IS CONSISTENT WITH IMPAIRED FASTING GLUCOSE. FASTING GLUCOSE >125 MG/DL IS CONSISTENT WITH DIABETES. RANDOM GLUCOSE >200 MG/DL WITH HYPERGLYCEMIC SYMPTOMS IS CONSISTENT WITH DIABETES. PER ADA GUIDELINES BUN 45(H) 6 - 24 MG/DL 08/19/2023 5:59 PM [facility] CREATININE S/P/B 6.11(H) 0.70 - 1.30 MG/DL 08/19/2023 5:59 PM [facility] CALCIUM S/P/B 8.9 8.4 - 10.5 MG/DL 08/19/2023 5:59 PM [facility] BILIRUBIN TOTAL S/P/B 0.5 0.2 - 1.0 MG/DL 08/19/2023 5:59 PM [facility] Comment: THIS ASSAY IS NOT RECOMMENDED FOR PATIENTS UNDERGOING TREATMENT WITH ELTROMBOPAG DUE TO THE POTENTIAL FOR FALSELY ELEVATED RESULTS. ALKALINE PHOSPHATASE S/P/B 73 45 - 115 U/L 08/19/2023 5:59 PM [facility] AST 5(L) 15 - 37 U/L 08/19/2023 5:59 PM [facility] ALT <6(L) 16 - 63 U/L 08/19/2023 5:59 PM HALVER MACHINE OPERATOR [facility] TOTAL PROTEIN S/P/B 7.9 6.4 - 8.2 G/DL 08/19/2023 5:59 PM HALVER MACHINE OPERATOR [facility] ALBUMIN S/P/B 3.4 3.4 - 5.0 G/DL 08/19/2023 5:59 PM HALVER MACHINE OPERATOR [facility] ANION GAP 13.9 5.0 - 15.0 MMOL/L 08/19/2023 5:59 PM HALVER MACHINE OPERATOR [facility] OSMOLALITY (CALC) 306 MOSM/KG 024 5:59 PM HALVER MACHINE OPERATOR [facility] Comment:REFERENCE RANGE NOT ESTABLISHED GFR ESTIMATE 10(L) >89 ML/MIN/1. 73 M2 08/19/2023 5:59 PM HALVER MACHINE OPERATOR [facility] GFR NOTES GFR REFERENCE S: 08/19/2023 5:59 PM HALVER MACHINE OPERATOR [facility] Comment: THE ESTIMATED GFR IS CALCULATED [...] FAILURE: <15 ml/min/1.73 m2 08/19/2023 5:32 PM HALVER MACHINE OPERATOR us Aaron Austin MD LABORATORY Final Result [facility] [address] [place] [address], * (ABNORMAL) CBC W/DIFF AUTOMATED (08/19/2023 5:32 PM HALVER MACHINE OPERATOR) WBC 8.47 4.00 - 10.80 x10'3/uL 08/19/2023 5:41 PM [facility] RBC 3.86(L) 4.50 - 6.10 x10'6/uL 08/19/2023 5:41 PM [facility] HGB 12.4(L) 13.0 - 18.0 G/DL 08/19/2023 5:41 PM [facility] HCT 39.2 37.0 - 52.0 % 08/19/2023 5:41 PM [facility] MCV 101.6(H) 78.0 - 100.0 FL 08/19/2023 5:41 PM [facility] MCH 32.1(H) 27.0 - 31.0 PG 08/19/2023 5:41 PM [facility] MCHC 31.6(L) 33.0 - 36.0 G/DL 08/19/2023 5:41 PM [facility] RDW 15.2(H) 11.5 - 14.5 % 08/19/2023 5:41 PM [facility] PLT 218 150 - 350 x10'3/uL 08/19/2023 5:41 PM [facility] MPV 9.8 7.4 - 10.4 FL 08/19/2023 5:41 PM [facility] CBC COMMENT NORMAL REFERENCE RANGE NOT ESTABLISHED FOR THE PROPORTIONAL LEUKOCYTE DIFFERENTIAL. 08/19/2023 5:41 PM [facility] NEUTROPHILS % 70.2 % 08/19/2023 5:41 PM [facility] LYMPHOCYTES % 16.6 % 08/19/2023 5:41 PM [facility] MONOCYTES % 6.8 % 08/19/2023 5:41 PM [facility] EOSINOPHILS % 4.5 % 08/19/2023 5:41 PM [facility] BASOPHILS % 0.8 % 08/19/2023 5:41 PM [facility] IMMATURE GRANS % 1.1 % 08/19/19 5:41 PM [facility] NRBC 0.0 % 08/19/2023 5:41 PM HALVER MACHINE OPERATOR [facility] ABS. NEUTROPHILS 5.94 1.60 - 8.30 x10'3/uL 08/19/2023 5:41 PM HALVER MACHINE OPERATOR [facility] ABS. LYMPHOCYTES 1.41 0.80 - 4.70 x10'3/uL 08/19/2023 5:41 PM HALVER MACHINE OPERATOR [facility] ABS. MONOCYTES 0.58 0.00 - 1.50 x10'3/uL 08/19/2023 5:41 PM HALVER MACHINE OPERATOR [facility] ABS. EOSINOPHILS 0.38 0.00 - 0.40 x10'3/uL 08/19/2023 5:41 PM HALVER MACHINE OPERATOR [facility] ABS. BASOPHILS 0.07 0.00 - 0.20 x10'3/uL 08/19/2023 5:41 PM HALVER MACHINE OPERATOR [facility] ABS. IMMATURE GRANULOCYTES 0.09(H) 0.00 - 0.03 x10'3/uL 08/19/2023 5:41 PM HALVER MACHINE OPERATOR [facility] ABS. NUCLEATED RBC'S 0.00 0.00 x10'3/uL 08/19/2023 5:41 PM HALVER MACHINE OPERATOR [facility] 08/19/2023 5:32 PM HALVER MACHINE OPERATOR us Aaron Austin MD LABORATORY Final Result Performing Organization Address City/State/[facility] Co de Phone Number [facility] [place] [address], documented in this encounter Visit Diagnoses Diagnosis [...] Thu08/19/23 at 1845 Given 08/19/2023 6:48 PM HALVER MACHINE OPERATOR 10 mg traMADol (ULTRAM) tablet 50 mg 50 mg, Oral, Once, 1 dose, On Thu08/19/23 at 1845 Given 08/19/2023 6:48 PM HALVER MACHINE OPERATOR 50 mg documented in this encounter Active and Recently Administered Medications Times are shown in HALVER MACHINE OPERATOR. Scheduled Medication Order 08/17/2023 08/18/2023 08/19/2023 midodrine (PROAMATINE) tablet 10 mg (COMPLETED) 10 mg, Oral, Once, 1 dose, On Thu08/19/23 at 1845 1848 (Given - Provid er: Prema Dean RN) traMADol (ULTRAM) tablet 50 mg (COMPLETED) 50 mg, Oral, Once, 1 dose, On Thu08/19/23 at 1845 1848 (Given - Provid er: Prema Dean RN) documented in this encounter Care Teams Breakfast Manager Relationship Specialty Start Date End Date Mery Maxwell MD [address] [place] [phone] PCP - General FAMILY PRACTICE 08/19/23 documented as of this encounter
--- OUTSIDE RECORDS SUMMARY | 2024-06-22 19:03 | XMS_ITS | Encounter Summary ---
Author Organization [facility] Address [address] [place] [address]. [place], [place] [id number] [place] [address] Care Team Providers Care Instrument Repairer Helper Name Role Phone Mery Maxwell MD Primary Care Provider +1- [phone] Encounter Details Date Type Department Care Team (Latest Contact Info) Description 12/31/2023 Travel Social History Tobacco Use Types Packs/Day Years Used Date Smoking Tobacco: Former Cigarettes Smokeless Tobacco: Never Alcohol Use Standard Drinks/Week Comments Not Currently 0 (1 standard drink = 0.6 oz pur e alcohol) [facility] Utilities Answer Date Recorded [...] declined 09/01/2023 Housing Stability Vital Sign Answer Kevlin e Recorded In the last 12 months, [...] time in the past 12 m [facility], were you homeless or living [...] st Contact Info) Description 07/20/2024 10:30 AM BULL RIDER Office Visit [facility]-[address] [place] [phone] Martha Ramirez, [facility]-[address] [address] documented as of this encounter Visit Diagnoses Not on filedocumented in this encounter Care Teams Instrument Repairer Helper Relationship Specialty Start Date End Date Mery Maxwell MD [address] [place] [phone] PCP - General FAMILY PRACTICE 08/19/23 documented as of this encounter
--- OUTSIDE RECORDS SUMMARY | 2024-06-22 19:03 | XMS_ITS | Encounter Summary ---
Author Organization [facility] Address [address] [place] [address]. [place] [address] [place] [address] Care Team Providers Care Welding Machine Operator Electroslag Name Role Phone Mery Maxwell MD Primary Care Provider +1- [phone] Reason for Visit * Reason Comments Dizziness Encounter Details Date Type Department Care Team (Late st Contact Info) Description 08/27/2023 1:56 PM CDT - 08/27/2023 5:57 PM CDT [facility] [address] [place] [address] Tiago Camargo MD [address] [place] [address] [phone] Dizziness Discharge Disposition: Home or Self Care [...] and make an appointment. 5. Please visit [employer] for coupons regarding your prescriptions. It is [...] be sent through Care Everywhere. * Hypokalemia (Malawian) documented in this encounter Medications at Time [...] dizzy and short of breath. He was senior living through his dialysis and had to stop [...] HISTORY: Past Medical History: Diagnosis Date A-fib ([facility]) Constipation Diabetes mellitus ([facility]) ESRD (end stage renal disease) ([facility]) GERD (gastroesophageal reflux disease) Gout, unspecified High cholesterol Neuropathy 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[facility]) PAST SURGICAL HISTORY: Past Surgical History: [...] hospital encounter of 08/27/23 ECG [address] 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 Exam time: 1402 hours. Clinical history: Dyspnea. Dizziness. History of renal failure, on dialysis. Comparison: 11/13/2008 ([facility]). Technique: AP upright view. Findings: Allowing for [...] st Contact Info) Description 07/20/2024 10:30 AM WINE MERCHANT Office Visit [facility]-[address] [address] Martha Ramirez, [facility]-[address] [address] documented as of this encounter [...] of renal failure, on dialysis. Comparison: 11/13/2008 ([facility]). Technique: ??AP ??upright view. Findings: Allowing for [...] History of renal failure, ondialysis. Comparison: 11/13/2008 ([facility]). Technique: AP upright view. Findings: Allowing for [...] - 145 MMOL/L 08/27/2023 3:06 PM CDT [facility] POTASSIUM S/P/B 2.5(LL) 3.5 - 5.1 MMOL/L 08/27/2023 3:06 PM CDT [facility] Comment: Critical Result(s) Called to and read back by: SVETA REES ER ??at: 15:06:11 ?? 08/27/2023 by NANI. CHLORIDE S/P/B 92(L) 98 - 107 MMOL/L 08/27/2023 3:06 PM T [facility] CO2 30.4 21.0 - 32.0 MMOL/L 08/27/2023 3:06 PM T [facility] GLUCOSE 193(H) 70 - 99 MG/DL 08/27/2023 3:06 PM T [facility] Comment: FASTING GLUCOSE 100 TO 125 MG/DL IS CONSISTENT WITH IMPAIRED FASTING GLUCOSE. FASTING GLUCOSE >125 MG/DL IS CONSISTENT WITH DIABETES. RANDOM GLUCOSE >200 MG/DL WITH HYPERGLYCEMIC SYMPTOMS IS CONSISTENT WITH DIABETES. PER ADA GUIDELINES BUN 31(H) 6 - 24 MG/DL 08/27/2023 3:06 PM T [facility] CREATININE S/P/B 4.00(H) 0.70 - 1.30 MG/DL 08/27/2023 3:06 PM T [facility] CALCIUM S/P/B 9.2 8.4 - 10.5 MG/DL 08/27/2023 3:06 PM [facility] BILIRUBIN TOTAL S/P/B 0.9 0.2 - 1.0 MG/DL 08/27/2023 3:06 PM T [facility] Comment: THIS ASSAY IS NOT RECOMMENDED FOR PATIENTS UNDERGOING TREATMENT WITH ELTROMBOPAG DUE TO THE POTENTIAL FOR FALSELY ELEVATED RESULTS. ALKALINE PHOSPHATASE S/P/B 54 45 - 115 U/L 08/27/2023 3:06 PM T [facility] AST 13(L) 15 - 37 U/L 08/27/2023 3:06 PM T [facility] ALT 11(L) 16 - 63 U/L 08/27/2023 3:06 PM T [facility] TOTAL PROTEIN S/P/B 7.9 6.4 - 8.2 G/DL 08/27/2023 3:06 PM T [facility] ALBUMIN S/P/B 3.5 3.4 - 5.0 G/DL 08/27/2023 3:06 PM CDT [facility] ANION GAP 12.6 5.0 - 15.0 MMOL/L 08/27/2023 3:06 PM CDT [facility] OSMOLALITY (CALC) 292 MOSM/KG 024 3:06 PM CDT [facility] Comment:REFERENCE RANGE NOT ESTABLISHED GFR ESTIMATE 17(L) >89 ML/MIN/1. 73 M2 08/27/2023 3:06 PM CDT [facility] GFR NOTES GFR REFERENCE S: 08/27/2023 3:06 PM CDT [facility] Comment: THE ESTIMATED GFR IS CALCULATED [...] CDT Tiago Camargo MD LABORATORY Final Result [facility] [address] [place] [address], * (ABNORMAL) CBC W/DIFF AUTOMATED (08/27/2023 2:25 PM CDT) WBC 6.80 4.00 - 10.80 x10'3/uL 08/27/2023 2:45 PM CDT [facility] RBC 3.68(L) 4.50 - 6.10 x10'6/uL 08/27/2023 2:45 PM CDT [facility] HGB 11.8(L) 13.0 - 18.0 G/DL 08/27/2023 2:45 PM CDT [facility] HCT 37.0 37.0 - 52.0 % 08/27/2023 2:45 PM CDT [facility] MCV 100.5(H) 78.0 - 100.0 FL 08/27/2023 2:45 PM CDT [facility] MCH 32.1(H) 27.0 - 31.0 PG 08/27/2023 2:45 PM CDT [facility] MCHC 31.9(L) 33.0 - 36.0 G/DL 08/27/2023 2:45 PM CDT [facility] RDW 14.7(H) 11.5 - 14.5 % 08/27/2023 2:45 PM CDT [facility] PLT 198 150 - 350 x10'3/uL 08/27/2023 2:45 PM CDT [facility] MPV 9.7 7.4 - 10.4 FL 08/27/2023 2:45 PM CDT [facility] CBC COMMENT NORMAL REFERENCE RANGE NOT ESTABLISHED FOR THE PROPORTIONAL LEUKOCYTE DIFFERENTIAL. 08/27/2023 2:45 PM CDT [facility] NEUTROPHILS % 70.0 % 08/27/2023 2:45 PM CDT [facility] LYMPHOCYTES % 15.6 % 08/27/2023 2:45 PM CDT [facility] MONOCYTES % 6.8 % 08/27/2023 2:45 PM CDT [facility] EOSINOPHILS % 5.7 % 08/27/2023 2:45 PM CDT [facility] BASOPHILS % 1.0 % 08/27/2023 2:45 PM CDT [facility] IMMATURE GRANS % 0.9 % 08/27/19 2:45 PM CDT [facility] NRBC 0.0 % 08/27/2023 2:45 PM CDT [facility] ABS. NEUTROPHILS 4.76 1.60 - 8.30 x10'3/uL 08/27/2023 2:45 PM CDT [facility] ABS. LYMPHOCYTES 1.06 0.80 - 4.70 x10'3/uL 08/27/2023 2:45 PM CDT [facility] ABS. MONOCYTES 0.46 0.00 - 1.50 x10'3/uL 08/27/2023 2:45 PM CDT [facility] ABS. EOSINOPHILS 0.39 0.00 - 0.40 x10'3/uL 08/27/2023 2:45 PM CDT [facility] ABS. BASOPHILS 0.07 0.00 - 0.20 x10'3/uL 08/27/2023 2:45 PM CDT [facility] ABS. IMMATURE GRANULOCYTES 0.06(H) 0.00 - 0.03 x10'3/uL 08/27/2023 2:45 PM CDT [facility] ABS. NUCLEATED RBC'S 0.00 0.00 x10'3/uL 08/27/2023 2:45 PM CDT [facility] 08/27/2023 2:25 PM CDT Tiago Camargo MD LABORATORY Final Result [facility] [address] [place] [place] [address], * ECG 12 lead (08/27/2023 1:59 PM CDT) 08/27/2023 1:59 PM CDT Narrative [facility] - 08/28/2023 5:11 PM CDT ? [facility] ?[address] [place], [place] ??[address] ? Test Date: ?2023-08-27 Pat Name: ? AARON CAMPOS ?Department: ?? 3 ? Room: ? EXAM 404 Gender: ? Male ? 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 : ?1970 ? Requested By: TIAGO YOU Order Number: [id number] ? Reading MD: ?? Kwadwo Brandon ? Measurements Intervals ?[place] ? Rate: ? 62 ? P: ?59 WV: ? 181 ?QRS: ?12 QRSD: ? 107 ?T: ?22 QT: ? 423 ? QTc: ?432 ? Interpretive Statements SINUS RHYTHM NONSPECIFIC T-WAVE ABNORMALITY long qt interval Procedure Note Kwadwo Brandon MD - 08/28/2023 [place] [id number] [facility] 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1970 Requested By: TIAGO CAMARGO Order Number: [id number] Reading MD: Kwadwo Brandon Measurements Intervals [place] Rate: 62 P: 59 WV: 181 QRS: 12 QRSD: 107 T: 22 QT: 423 QTc: 432 Interpretive Statements SINUS RHYTHM NONSPECIFIC T-WAVE ABNORMALITY long qt interval us Tiago Camargo MD ECG ORDERABLES Final Result [facility] documented in this encounter Visit Diagnoses [...] RN) documented in this encounter Care Teams Welding Machine Operator Electroslag Relationship Specialty Start Date End Date Mery Maxwell MD [address] [place] [phone] PCP - General FAMILY PRACTICE 08/19/23 documented as of this encounter
--- OUTSIDE RECORDS SUMMARY | 2024-06-22 19:03 | XMS_ITS | Encounter Summary ---
Author Organization [facility] Address [address] [place] [address]. [place] [address] [place] [address] Care Team Providers Care Scientific Editor Name Role Phone Unavailable Primary Care Provider Unavailabl e Encounter Details Date Type Department Care Team (Late st Contact Info) Description 11/13/[address] [facility] [address] [facility] [place] [address] Toño Forrest MD [address] [place] [phone] Social History Tobacco Use Types Packs/Day Years [...] st Contact Info) Description 07/20/2024 10:30 AM RIM BUSTER Office Visit [facility]-[address] [place] [address] Martha Ramirez, [facility]-[address] [address] documented as of this encounter Visit Diagnoses Not on filedocumented in this encounter
--- OUTSIDE RECORDS SUMMARY | 2024-06-22 19:03 | XMS_ITS | Encounter Summary ---
Author Organization [facility] Address [address] [place] [address]. [place] [address] [place] [address] Care Team Providers Care Commanding Officer Traffic Division Name Role Phone Unavailable Primary Care Provider Unavailabl e Encounter Details Date Type Department Care Team (Late st Contact Info) Description 06/05/2009 Emergency [facility] [place] [address] Baltazar Monroe MD Social History Tobacco Use [...] st Contact Info) Description 07/20/2024 10:30 AM BOILER TESTER Office Visit [facility]-[address] [place] [phone] Martha Ramirez, [facility]-[address] [address] documented as of this encounter Visit Diagnoses Not on filedocumented in this encounter
--- OUTSIDE RECORDS SUMMARY | 2024-06-22 19:03 | XMS_ITS | Encounter Summary ---
Author Organization [facility] Address [address] [place] [address]. [place], [place] [address] [place] [address] Care Team Providers Care Coal Screener Name Role Phone Mery Maxwell MD Primary Care Provider +1- [phone] Encounter Details Date Type Department Care Team [...] st Contact Info) Description 07/20/2024 10:30 AM INSURANCE VERIFICATION REPRESENTATIVE Office Visit [facility]-[address] [place] [phone] Martha Ramirez, [facility]-[address] [address] documented as of this encounter Visit Diagnoses Not on filedocumented in this encounter Care Teams Coal Screener Relationship Specialty Start Date End Date Mery Maxwell MD [address] [place] [phone] PCP - General FAMILY PRACTICE 08/19/23 documented as of this encounter
--- OUTSIDE RECORDS SUMMARY | 2024-06-22 19:03 | XMS_ITS | Encounter Summary ---
Author Organization [facility] Address [address] [place] [address]. [place], [place] [address] [place] [address] Care Team Providers Care Lard Tub Washer Name Role Phone Mery Maxwell MD Primary Care Provider +1- [phone] Encounter Details Date Type Department Care Team [...] care home (including now)? Patient declined 09/01/2023 Sex [...] st Contact Info) Description 07/20/2024 10:30 AM INSTRUCTOR BRIDGE Office Visit [facility]-[address] [place] [address] Martha Ramirez [facility]-[address] [address] documented as of this encounter Visit Diagnoses Not on filedocumented in this encounter Care Teams Lard Tub Washer Relationship Specialty Start Date End Date Mery Maxwell MD [address] [place] [phone] PCP - General FAMILY PRACTICE 08/19/23 documented as of this encounter
--- OUTSIDE RECORDS SUMMARY | 2024-06-22 19:03 | XMS_ITS | Encounter Summary ---
Author Organization [facility] Address [address] [place] [address]. [place], [place] [phone] [place] [address] Care Team Providers Care Correctional Counselor Name Role Phone Mery Maxwell MD Primary Care Provider +1- [phone] Reason for Visit * Reason Onset Date Comments Follow Up Call 12/31/2023 HERO 12/30-01/02/24 Encounter Details Date Type Department Care Team (Latest Contact Info) Description 01/05/2024 Hospital Follow-up Call [facility] [place] [address] Amy Potter, JANEEN Follow Up Call (HERO 12/30-01/02/24) Social History Tobacco Use Types Packs/Day Years Used Date Smoking Tobacco: Former Cigarettes Smokeless Tobacco: Never Alcohol Use Standard Drinks/Week Comments Not Currently 0 (1 standard drink = 0.6 oz pur e alcohol) [facility] Utilities Answer Date Recorded In the past 12 months has [facility] [employer], oil, or water [employer] threatened to shut off services in your [...] any time in the past 12 m [facility], were you homeless or living [...] st Contact Info) Description 07/20/2024 10:30 AM CISCO ADMINISTRATOR Office Visit [facility]-[address] [place] [address] Martha Ramirez, [address] [address] documented as of this encounter Goals Goal Patient Goal Type Associated Problems Recent Progress Patient-Stated? 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 RN documented as of this encounter Visit Diagnoses Not on filedocumented in this encounter Care Teams Correctional Counselor Relationship Specialty Start Date End Date Mery Maxwell MD [address] [place] [phone] PCP - General FAMILY PRACTICE 08/19/23 documented as of this encounter
--- OUTSIDE RECORDS SUMMARY | 2024-06-22 19:03 | XMS_ITS | Encounter Summary ---
Author Organization [facility] Address [address] [place] [address]. [place], [place] [address] [place] [address] Care Team Providers Care Aquatics Manager Name Role Phone Mery Maxwell MD Primary Care Provider +1- [phone] Encounter Details Date Type Department Care Team (Latest Contact Info) Description 09/01/2023 Travel Social History Tobacco Use Types Packs/Day Years Used Date Smoking Tobacco: Former Cigarettes Smokeless Tobacco: Never Alcohol Use Standard Drinks/Week Comments Not Currently 0 (1 standard drink = 0.6 oz pur e alcohol) [facility] Utilities Answer Date Recorded In the [...] skilled nursing (including now)? Patient declined 09/01/2023 Sex and [...] st Contact Info) Description 07/20/2024 10:30 AM AGRICULTURAL EXTENSION SPECIALIST Office Visit [facility]-[address] [phone] Martha Ramirez, [address] [address] documented as of this encounter Visit Diagnoses Not on filedocumented in this encounter Care Teams Aquatics Manager Relationship Specialty Start Date End Date Mery Maxwell MD [address] [place] [phone] PCP - General FAMILY PRACTICE 08/19/23 documented as of this encounter
--- OUTSIDE RECORDS SUMMARY | 2024-06-22 19:03 | XMS_ITS | Encounter Summary ---
Author Organization [facility] Address [address] [place] [address]. [place] [address] [place] [address] Care Team Providers Care Rail Grinder Name Role Phone Mery Maxwell MD Primary Care Provider +1- [phone] Reason for Visit * Reason Comments Breathing Problem Hypertension Follow Up Encounter Details Date Type Department Care Team (Late st Contact Info) Description 09/12/2023 5:29 PM CDT - 09/12/2023 7:02 PM CDT Emergency [facility] [address] [facility] [place] [address] Vinay Austin MD [address] [place] [phone] Breathing Problem; Hypertension Follow Up Discharge Disposition: Home or Self Care (Routine Discharge) Social History Tobacco Use Types Packs/Day Years Used Date Smoking Tobacco: Former Cigarettes Smokeless Tobacco: Never Tobacco Cessation:Counseling Given: Not Answered Alcohol Use Standard Drinks/Week Comments Not Currently 0 (1 standard drink = 0.6 oz pur e alcohol) [facility] Utilities Answer Date Recorded In the past 12 months has [employer], oil, or water [employer] threatened to shut off services in your [...] a mcc (including now)? Patient declined 09/01/2023 Sex and [...] through Care Everywhere. * Hypokalemia Discharge Instructions (Welsh) * Kidney Failure Discharge Instructions (Welsh) documented in this encounter Medications at Time [...] mcg total) by mouth every other day. [facility] 08/03/2023 02/26/2024 carvedilol (COREG) 12.5 [...] HISTORY Past Medical History: Diagnosis Date A-fib ([facility]/HCC HHS/HCC) Constipation Diabetes mellitus (CMS/HCC HHS/HCC) ESRD [...] XR CHEST PORTABLE Final Result by User, [id number] (09/11 267) Examination: XR CHEST PORTABLE Exam time: 09/12/2023 [...] is unclear why. Recommend he contact his art museum aide next week.At this point in time we will give 1 dose of potassium. It would be unlikely that his hypokalemia caused his trouble breathing and elevated blood pressure earlier. His vital signs are stable and he appears appropriate for outpatient follow-up with nephrology. FINAL IMPRESSION SNOMED CT(R) 1. Hypokalemia HYPOKALEMIA 2. Chronic renal failure CHRONIC RENAL FAILURE Mery Maxwell MD [address] [facility] [address] Christen Ng MD [address] [facility] [address] Call Please let him know how you are doing Discharge Medication List as of 09/12/2023 6:59 PM Vinay Austin MD 09/12/232049 documented in this encounter Plan of Treatment Upcoming Encounters Date Type Department Care Team (Late st Contact Info) Description 07/20/2024 10:30 AM NATIONAL VAN OWNER OPERATOR Office Visit [facility] [place] [address] Martha Ramirez [facility]- [address] [place] [address] documented as of this encounter [...] - 145 MMOL/L 09/12/2023 6:32 PM CDT [facility] POTASSIUM S/P/B 2.8(LL) 3.5 - 5.1 MMOL/L 09/12/2023 6:32 PM CDT [facility] Comment: Critical Result(s) Called to and read back by: BEST ?? at: 18:30:58 ??09/12/2023 by EPSI. CHLORIDE S/P/B 93(L) 98 - 107 MMOL/L 09/12/2023 6:32 PM CDT [facility] CO2 31.0 21.0 - 32.0 MMOL/L 09/12/2023 6:32 PM CDT [facility] GLUCOSE 147(H) 70 - 99 MG/DL 09/12/2023 6:32 PM CDT [facility] Comment: FASTING GLUCOSE 100 TO 125 MG/DL IS CONSISTENT WITH IMPAIRED FASTING GLUCOSE. FASTING GLUCOSE >125 MG/DL IS CONSISTENT WITH DIABETES. RANDOM GLUCOSE >200 MG/DL WITH HYPERGLYCEMIC SYMPTOMS IS CONSISTENT WITH DIABETES. PER ADA GUIDELINES BUN 21 6 - 24 MG/DL 09/12/2023 6:32 PM CDT [facility] CREATININE S/P/B 2.89(H) 0.70 - 1.30 MG/DL 09/12/2023 6:32 PM CDT [facility] CALCIUM S/P/B 8.9 8.4 - 10.5 MG/DL 09/12/2023 6:32 PM CDT [facility] ANION GAP 10.0 5.0 - 15.0 MMOL/L 09/12/2023 6:32 PM CDT [facility] OSMOLALITY (CALC) 284 MOSM/KG 024 6:32 PM T [facility] Comment:REFERENCE RANGE NOT ESTABLISHED GFR ESTIMATE 26(L) >89 ML/MIN/1. 73 M2 09/12/2023 6:32 PM T [facility] GFR NOTES GFR REFERENCE S: 09/12/2023 6:32 PM T [facility] Comment: THE ESTIMATED GFR [...] us Vinay Austin MD LABORATORY Final Result [facility] [address] [place] [address], * (ABNORMAL) CBC W/DIFF AUTOMATED (09/12/2023 6:06 PM CDT) WBC 7.42 4.00 - 10.80 x10'3/uL 09/12/2023 6:16 PM CDT [facility] RBC 3.55(L) 4.50 - 6.10 x10'6/uL 09/12/2023 6:16 PM CDT [facility] HGB 11.7(L) 13.0 - 18.0 G/DL 09/12/2023 6:16 PM CDT [facility] HCT 35.5(L) 37.0 - 52.0 % 09/12/2023 6:16 PM CDT [facility] MCV 100.0 78.0 - 100.0 FL 09/12/2023 6:16 PM CDT [facility] MCH 33.0(H) 27.0 - 31.0 PG 09/12/2023 6:16 PM CDT [facility] MCHC 33.0 33.0 - 36.0 G/DL 09/12/2023 6:16 PM CDT [facility] RDW 13.6 11.5 - 14.5 % 09/12/2023 6:16 PM CDT [facility] PLT 211 150 - 350 x10'3/uL 09/12/2023 6:16 PM CDT [facility] MPV 9.2 7.4 - 10.4 FL 09/12/2023 6:16 PM CDT [facility] CBC COMMENT NORMAL REFERENCE RANGE NOT ESTABLISHED FOR THE PROPORTIONAL LEUKOCYTE DIFFERENTIAL. 09/12/2023 6:16 PM CDT [facility] NEUTROPHILS % 64.4 % 09/12/2023 6:16 PM CDT [facility] LYMPHOCYTES % 22.0 % 09/12/2023 6:16 PM CDT [facility] MONOCYTES % 6.9 % 09/12/2023 6:16 PM CDT [facility] EOSINOPHILS % 4.6 % 09/12/2023 6:16 PM CDT [facility] BASOPHILS % 1.2 % 09/12/2023 6:16 PM CDT [facility] IMMATURE GRANS % 0.9 % 09/12/19 6:16 PM CDT [facility] NRBC 0.0 % 09/12/2023 6:16 PM CDT [facility] ABS. NEUTROPHILS 4.78 1.60 - 8.30 x10'3/uL 09/12/2023 6:16 PM CDT [facility] ABS. LYMPHOCYTES 1.63 0.80 - 4.70 x10'3/uL 09/12/2023 6:16 PM CDT [facility] ABS. MONOCYTES 0.51 0.00 - 1.50 x10'3/uL 09/12/2023 6:16 PM CDT [facility] ABS. EOSINOPHILS 0.34 0.00 - 0.40 x10'3/uL 09/12/2023 6:16 PM CDT [facility] ABS. BASOPHILS 0.09 0.00 - 0.20 x10'3/uL 09/12/2023 6:16 PM CDT [facility] ABS. IMMATURE GRANULOCYTES 0.07(H) 0.00 - 0.03 x10'3/uL 09/12/2023 6:16 PM CDT [facility] ABS. NUCLEATED RBC'S 0.00 0.00 x10'3/uL 09/12/2023 6:16 PM CDT [facility] 09/12/2023 6:06 PM CDT us Vinay Austin MD LABORATORY Final Result [facility] [address] [place] [address], * ECG 12 lead (09/12/2023 5:38 PM CDT) 09/12/2023 5:38 PM CDT Narrative [facility] [place] [facility] - 09/12/2023 7:06 PM CDT ? [facility] ?[address] [place], [place] ??[address] ? Test Date: ?2023-09-12 Pat Name: ? VINAY CAMPOS ?Department: ?? 3 ? Room: ? EXAM 606 Gender: ? Male ? Teacher Advisor: ?? : ?1970 ? Requested By: VINAY AUSTIN Order Number: [id number] ? Reading MD: ?? Timbo Valdez ? Measurements Intervals ?[place] ? Rate: ? 64 ? P: ?42 VA: ? 186 ?QRS: ?-23 QRSD: ? 114 ?T: ?7 QT: ? 434 ? QTc: ?449 ? Interpretive Statements SINUS RHYTHM POSSIBLE LEFT ATRIAL ENLARGEMENT BORDERLINE LEFT AXIS DEVIATION MODERATE INTRAVENTRICULAR CONDUCTION DELAY NONSPECIFIC T-WAVE ABNORMALITY Procedure Note Timbo Valdez MD - 09/12/[address] [place] [address] Test Date: 2023-09-12 Pat Name: VINAY CAMPOS Department: 3 Room: EXAM 606 Gender: Male Teacher Advisor: : 1970 Requested By: VINAY AUSTIN Order Number: [id number] Andrea MD: Jonnathan Measurements Intervals [place] Rate: 64 P: 42 VA: 186 QRS: -23 QRSD: 114 T: 7 QT: 434 QTc: 449 Interpretive Statements SINUS RHYTHM POSSIBLE LEFT ATRIAL ENLARGEMENT BORDERLINE LEFT AXIS DEVIATION MODERATE INTRAVENTRICULAR CONDUCTION DELAY NONSPECIFIC T-WAVE ABNORMALITY us Vinay Austin MD ECG ORDERABLES Final Result [facility] documented in this encounter [...] RN) documented in this encounter Care Teams Rail Grinder Relationship Specialty Start Date End Date Mery Maxwell MD [address] [place] [phone] PCP - General FAMILY PRACTICE 08/19/23 documented as of this encounter
--- OUTSIDE RECORDS SUMMARY | 2024-06-22 19:03 | XMS_ITS | Encounter Summary ---
Author Organization [facility] Address [address] [place] [address]. [place], [place] [address] [place] [address] Care Team Providers Care Electronics Tester Name Role Phone Mery Maxwell MD Primary Care Provider +1- [phone] Reason for Visit * Reason Onset Date Comments Appointment Request 01/11/2024 Encounter Details Date Type Department Care Team (Late st Contact Info) Description 01/11/2024 Telephone [facility] [address] [place] [address] Quynh Galloway MD [address] [place] [address] Appointment Request Social History Tobacco Use Types Packs/Day Years Used Date Smoking Tobacco: Former Cigarettes Smokeless Tobacco: Never Alcohol Use Standard Drinks/Week Comments Not Currently 0 (1 standard drink = 0.6 oz pur e alcohol) [facility] Utilities Answer Date Recorded In the past 12 months has [facility] [employer], gas, oil, or water [employer] threatened to shut off services in your [...] any time in the past 12 m [facility], were you homeless or living [...] CDT Pt requests to be seen in [place]. He does not have transportation to [facility]. Pt is scheduled for 04.27.24 at 830am in [place]. Gave address information. Pt v/u and marked [...] st Contact Info) Description 07/20/2024 10:30 AM MAILING JOGGER Office Visit [facility] [place] [phone] Martha Ramirez, ANP-[address] [address] documented as of this encounter Goals Goal Patient Goal Type Associated Problems Recent Progress Patient-Stated? Author Family - family caregiver with be involved in care transitions and discharge planning Lifestyle No Zkaiya Rocha RN documented as of this encounter Visit Diagnoses Not on filedocumented in this encounter Care Teams Electronics Tester Relationship Specialty Start Date End Date Mery Maxwell MD [address] [place] [phone] PCP - General FAMILY PRACTICE 08/19/23 documented as of this encounter
--- OUTSIDE RECORDS SUMMARY | 2024-06-22 19:03 | XMS_ITS | Encounter Summary ---
Author Organization [facility] Address [address] [place] [address]. [place] [address] [place] [address] Care Team Providers Care Sleep Tech Name Role Phone Mery Maxwell MD Primary Care Provider +1- [phone] Reason for Visit * Reason Comments Hypertension Encounter Details Date Type Department Care Team (Late st Contact Info) Description 10/06/2023 10:03 AM CDT - 10/06/2023 10:55 AM T Emergency [facility] [address] [facility] [place] [address] Samira Ayala MD [address] [place] [phone] Hypertension Discharge Disposition: Home or Self Care (Routine Discharge) Social History Tobacco Use Types Packs/Day Years Used Date Smoking Tobacco: Former Cigarettes Smokeless Tobacco: Never Alcohol Use Standard Drinks/Week Comments Not Currently 0 (1 standard drink = 0.6 oz pur e alcohol) [facility] Utilities Answer Date Recorded In the past 12 months has [employer], oil, or water [employer] threatened to shut off services in your [...] group home (including now)? Patient declined 09/01/2023 Sex [...] Everywhere. * High Blood Pressure Discharge Instructions (Iranian) * Dialysis Diet (Iranian) documented in this encounter Medications at Time [...] mcg total) by mouth every other day. [facility] 08/03/2023 02/26/2024 carvedilol (COREG) 12.5 [...] HISTORY: Past Medical History: Diagnosis Date A-fib ([facility]) Constipation Diabetes mellitus ([facility] HHS/HCC) ESRD (end stage renal disease) ([facility]) GERD (gastroesophageal reflux disease) Gout, unspecified High cholesterol Neuropathy 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[facility]/HCC) Renal disorder PAST SURGICAL HISTORY: Past Surgical [...] ESRD (end stage renal disease) on dialysis ([facility]): minor Essential hypertension: minor Diagnosis management comments: [...] ESRD (end stage renal disease) on dialysis ([facility]) END STAGE RENAL FAILURE ON DIALYSIS Current Discharge Medication List Disposition: Discharge Follow-Up: Mery Maxwell MD [address] [place] [phone] As needed Samira Ayala MD 10/06/2023 11:12 [...] st Contact Info) Description 07/20/2024 10:30 AM GARBAGE TRUCK HELPER Office Visit [facility]-[address] [place] [phone] Martha Ramirez, [facility] [place] [address] documented as of this encounter Procedures Procedure Name Priority Date/Time Associated Diagnosis Comments COMPREHENSIVE METABOLIC PANEL STAT 10/06/2023 10:26 AM CDT CBC W/DIFF AUTOMATED STAT 10/06/2023 10:26 AM CDT MAGNESIUM STAT 10/06/2023 10:26 AM CDT documented in this encounter Results * (ABNORMAL) MAGNESIUM (10/06/2023 10:26 AM CDT) MAGNESIUM 1.7(L) 1.8 - 2.4 MG/DL 10/06/2023 10:50 AM CDT [facility] 10/06/2023 10:2 6 AM CDT Samira Ayala MD LABORATORY Final Result [facility] [address] [place] [address], * (ABNORMAL) COMPREHENSIVE METABOLIC PANEL (10/06/2023 10:26 AM CDT) SODIUM S/P/B 140 136 - 145 MMOL/L 10/06/2023 10:50 AM CDT [facility] POTASSIUM S/P/B 3.6 3.5 - 5.1 MMOL/L 10/06/2023 10:50 AM CDT [facility] CHLORIDE S/P/B 101 98 - 107 MMOL/L 10/06/2023 10:50 AM [facility] CO2 30.4 21.0 - 32.0 MMOL/L 10/06/2023 10:50 AM [facility] GLUCOSE 247(H) 70 - 99 MG/DL 10/06/2023 10:50 AM [facility] Comment: FASTING GLUCOSE 100 TO 125 MG/DL IS CONSISTENT WITH IMPAIRED FASTING GLUCOSE. FASTING GLUCOSE >125 MG/DL IS CONSISTENT WITH DIABETES. RANDOM GLUCOSE >200 MG/DL WITH HYPERGLYCEMIC SYMPTOMS IS CONSISTENT WITH DIABETES. PER ADA GUIDELINES BUN 47(H) 6 - 24 MG/DL 10/06/2023 10:50 AM T [facility] CREATININE S/P/B 4.23(H) 0.70 - 1.30 MG/DL 10/06/2023 10:50 AM [facility] CALCIUM S/P/B 9.0 8.4 - 10.5 MG/DL 10/06/2023 10:50 AM [facility] BILIRUBIN TOTAL S/P/B 0.4 0.2 - 1.0 MG/DL 10/06/2023 10:50 AM [facility] Comment: THIS ASSAY IS NOT RECOMMENDED FOR PATIENTS UNDERGOING TREATMENT WITH ELTROMBOPAG DUE TO THE POTENTIAL FOR FALSELY ELEVATED RESULTS. ALKALINE PHOSPHATASE S/P/B 51 45 - 115 U/L 10/06/2023 10:50 AM [facility] AST 15 15 - 37 U/L 10/06/2023 10:50 AM [facility] ALT 16 16 - 63 U/L 10/06/2023 10:50 AM [facility] TOTAL PROTEIN S/P/B 7.5 6.4 - 8.2 G/DL 10/06/2023 10:50 AM [facility] ALBUMIN S/P/B 3.3(L) 3.4 - 5.0 G/DL 10/06/2023 10:50 AM [facility] ANION GAP 8.6 5.0 - 15.0 MMOL/L 10/06/2023 10:50 AM [facility] OSMOLALITY (CALC) 311 MOSM/KG 024 10:50 AM CDT [facility] Comment:REFERENCE RANGE NOT ESTABLISHED GFR ESTIMATE 16(L) >89 ML/MIN/1. 73 M2 10/06/2023 10:50 AM CDT [facility] GFR NOTES GFR REFERENCE S: 10/06/2023 10:50 AM CDT [facility] Comment: THE ESTIMATED GFR IS [...] us Samira Ayala MD LABORATORY Final Result [facility] [address] [place] [address], * (ABNORMAL) CBC W/DIFF AUTOMATED (10/06/2023 10:26 AM CDT) WBC 6.11 4.00 - 10.80 x10'3/uL 10/06/2023 10:33 AM CDT [facility] RBC 3.44(L) 4.50 - 6.10 x10'6/uL 10/06/2023 10:33 AM CDT [facility] HGB 11.4(L) 13.0 - 18.0 G/DL 10/06/2023 10:33 AM CDT [facility] HCT 34.5(L) 37.0 - 52.0 % 10/06/2023 10:33 AM CDT [facility] MCV 100.3(H) 78.0 - 100.0 FL 10/06/2023 10:33 AM CDT [facility] MCH 33.1(H) 27.0 - 31.0 PG 10/06/2023 10:33 AM CDT [facility] MCHC 33.0 33.0 - 36.0 G/DL 10/06/2023 10:33 AM CDT [facility] RDW 12.8 11.5 - 14.5 % 10/06/2023 10:33 AM CDT [facility] PLT 211 150 - 350 x10'3/uL 10/06/2023 10:33 AM CDT [facility] MPV 9.4 7.4 - 10.4 FL 10/06/2023 10:33 AM CDT [facility] CBC COMMENT NORMAL REFERENCE RANGE NOT ESTABLISHED FOR THE PROPORTIONAL LEUKOCYTE DIFFERENTIAL. 10/06/2023 10:33 AM CDT [facility] NEUTROPHILS % 74.3 % 10/06/2023 10:33 AM CDT [facility] LYMPHOCYTES % 17.3 % 10/06/2023 10:33 AM CDT [facility] MONOCYTES % 3.9 % 10/06/2023 10:33 AM CDT [facility] EOSINOPHILS % 2.9 % 10/06/2023 10:33 AM CDT [facility] BASOPHILS % 1.1 % 10/06/2023 10:33 AM CDT [facility] IMMATURE GRANS % 0.5 % 10/06/19 10:33 AM CDT [facility] NRBC 0.0 % 10/06/2023 10:33 AM CDT [facility] ABS. NEUTROPHILS 4.53 1.60 - 8.30 x10'3/uL 10/06/2023 10:33 AM CDT [facility] ABS. LYMPHOCYTES 1.06 0.80 - 4.70 x10'3/uL 10/06/2023 10:33 AM CDT [facility] ABS. MONOCYTES 0.24 0.00 - 1.50 x10'3/uL 10/06/2023 10:33 AM CDT [facility] ABS. EOSINOPHILS 0.18 0.00 - 0.40 x10'3/uL 10/06/2023 10:33 AM CDT [facility] ABS. BASOPHILS 0.07 0.00 - 0.20 x10'3/uL 10/06/2023 10:33 AM CDT [facility] ABS. IMMATURE GRANULOCYTES 0.03 0.00 - 0.03 x10'3/uL 10/06/2023 10:33 AM CDT [facility] ABS. NUCLEATED RBC'S 0.00 0.00 x10'3/uL 10/06/2023 10:33 AM CDT [facility] 10/06/2023 10:2 6 AM CDT us Samira Ayala MD LABORATORY Final Result [facility] [address] [employer] [address] [phone] documented in this encounter Visit Diagnoses Diagnosis Essential hypertension- Primary Unspecified essential hypertension ESRD (end stage renal disease) on dialysis ([facility]) End stage renal disease documented in this encounter Care Teams Sleep Tech Relationship Specialty Start Date End Date Mery Maxwell MD [address] [place] [phone] PCP - General FAMILY PRACTICE 08/19/23 documented as of this encounter
--- OUTSIDE RECORDS SUMMARY | 2024-06-22 19:03 | XMS_ITS | Encounter Summary ---
Author Organization [facility] Address [address] [place] [address]. [place], [place] [address] [place] [address] Care Team Providers Care Fraternity House Cook Name Role Phone Mery Stoll MD Primary Care Provider +1- [phone] Reason for Visit * Reason Comments Consult Consultation for pro longed QT and establish cardiac care Encounter Details Date Type Department Care Team (Late st Contact Info) Description 02/03/2024 9:00 AM CDT Office Visit [facility] [phone] Martha Graham, [facility]- [address] [employer] [address] Consult (Consultation for prolonged QT and establish cardiac care) Social History Tobacco Use Types Packs/Day Years Used Date Smoking Tobacco: Former Cigarettes 1 15 Smokeless Tobacco: Never Tobacco Cessation:Counseling Given: Not Answered Alcohol Use Standard Drinks/Week Comments Not Currently 0 (1 standard drink = 0.6 oz pur e alcohol) [facility] Utilities Answer Date Recorded In the past 12 months has [employer], gas, oil, or water [employer] threatened to shut off services in your [...] time in the past 12 m [facility], were you homeless or living in a [...] He has previously received cardiac care and [facility] and was successfully cardioverted in June 2023 and placedon amiodarone. He is also anticoagulated on Eliquis. He was hospitalized last month for a near syncopal episode after dialysis with blood pressures reportedly 60/40. No loss of consciousness occurred. He was transferred to [facility] in [place] for further care. His initial EKG showed [...] remains on Eliquis for cardioembolic event reduction. [id number] score = 2 (HTN, DM). Will decrease amiodarone to 100 mg daily. Hypertension Stable. If hypotension were to persist or recur consider resuming midodrine on dialysis days. Continue current medications. Advised to start a regular exercise program. Follow up in 6 month(s) or sooner if any problems arise. PAST MEDICAL HISTORY: Past Medical History: Diagnosis Date A-fib ([facility]) Constipation Diabetes mellitus ([facility]) ESRD (end stage renal disease) ([facility]) GERD (gastroesophageal reflux disease) Gout, unspecified High cholesterol Neuropathy 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[facility]) Renal disorder Past Surgical History: Procedure [...] Contact Info) Description 07/20/2024 10:30 AM MANAGER UNION Office Visit [facility] [address] [place] [address] Martha Graham ANP-[facility] [place] [address] documented as of this encounter Goals Goal Patient Goal Type Associated Problems Recent Progress Patient-Stated? 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 RN documented as of this encounter Results * ECG 12 lead (HOSPITAL PERFORMED ONLY) (02/03/2024 10:40 AM CDT) 02/03/2024 10:4 0 AM CDT Narrative [facility] - 02/05/2024 4:40 PM CDT ? [facility] ?[address] [place] ? Test Date: ?2024-02-03 Pat Name: ? VINAY WILBURN ?Department: ?? 3 ? Room: ? Gender: ? Male ? Spectroscopist: ?? : ?1970 ? Requested By: MARTHA GRAHAM Order Number: [id number] ? Reading : ?? Barber Blankenship ? Measurements Intervals ?Linch ? Rate: ? 63 ? P: ?49 NV: ? 204 ?QRS: ?97 QRSD: ? 101 ?T: ?22 QT: ? 457 ? QTc: ?469 ? Interpretive Statements SINUS RHYTHM BORDERLINE RIGHT AXIS DEVIATION PROLONGED QT INTERVAL Procedure Note Barber Blankenship MD - 02/05/[address] [place] [address] Test Date: 2024-02-03 Pat Name: VINAY WILBURN Department: 3 Room: Gender: Male Spectroscopist: : 1970 Requested By: MARTHA GRAHAM Order Number: [id number] Reading MD: Barber Blankenship Measurements Intervals [place]inch Rate: 63 P: 49 NV: 204 QRS: 97 QRSD: 101 T: 22 QT: 457 QTc: 469 Interpretive Statements SINUS RHYTHM BORDERLINE RIGHT AXIS DEVIATION PROLONGED QT INTERVAL Martha Graham [facility]- ECG ORDERABLES Final Res ult [facility] documented in this encounter Visit Diagnoses Diagnosis Prolonged Q-T interval on ECG- Primary Nonspecific abnormal electrocardiogram (ECG) (EKG) Hypotension, unspecified hypotension type 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
--- OUTSIDE RECORDS SUMMARY | 2024-06-22 19:03 | XMS_ITS | Encounter Summary ---
Author Organization [facility] Address [address] [place] [address]. [place] [address] [place] [address] Care Team Providers Care Manufacturing Technologist Name Role Phone Mery Maxwell MD Primary Care Provider [phone]- [phone] Encounter Details Date Type Department Care Team (Late st Contact Info) Description 09/08/2023 11:25 AM CDT - 09/08/2023 11:59 PM T Hospital Encounter [facility] [address] [place] [address] [place] [address] Mery Maxwell MD [address] [place] [phone] Discharge Disposition: Home or Self Care (Routine Discharge) Social History Tobacco Use Types Packs/Day Years Used Date Smoking Tobacco: Former Cigarettes Smokeless Tobacco: Never Alcohol Use Standard Drinks/Week Comments Not Currently 0 (1 standard drink = 0.6 oz pur e alcohol) 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 Office Visit [facility] [place] [phone] Martha Ramirez ANP- [address] [place] [address] documented as of this encounter Procedures Procedure [...] - 10.80 x10'3/uL 09/08/2023 11:34 AM CDT [facility] RBC 3.44(L) 4.50 - 6.10 x10'6/uL 09/08/2023 11:34 AM CDT [facility] HGB 11.2(L) 13.0 - 18.0 G/DL 09/08/2023 11:34 AM CDT [facility] HCT 35.2(L) 37.0 - 52.0 % 09/08/2023 11:34 AM CDT [facility] MCV 102.3(H) 78.0 - 100.0 FL 09/08/2023 11:34 AM CDT [facility] MCH 32.6(H) 27.0 - 31.0 PG 09/08/2023 11:34 AM CDT [facility] MCHC 31.8(L) 33.0 - 36.0 G/DL 09/08/2023 11:34 AM CDT [facility] RDW 13.9 11.5 - 14.5 % 09/08/2023 11:34 AM CDT [facility] PLT 268 150 - 350 x10'3/uL 09/08/2023 11:34 AM CDT [facility] MPV 9.9 7.4 - 10.4 FL 09/08/2023 11:34 AM CDT [facility] CBC COMMENT NORMAL REFERENCE RANGE NOT ESTABLISHED FOR THE PROPORTIONAL LEUKOCYTE DIFFERENTIAL. 09/08/2023 11:34 AM CDT [facility] NEUTROPHILS % 65.2 % 09/08/2023 11:34 AM CDT [facility] LYMPHOCYTES % 20.7 % 09/08/2023 11:34 AM CDT [facility] MONOCYTES % 5.8 % 09/08/2023 11:34 AM CDT [facility] EOSINOPHILS % 6.0 % 09/08/2023 11:34 AM CDT [facility] BASOPHILS % 1.3 % 09/08/2023 11:34 AM CDT [facility] IMMATURE GRANS % 1.0 % 09/08/19 11:34 AM CDT [facility] NRBC 0.0 % 09/08/2023 11:34 AM CDT [facility] ABS. NEUTROPHILS 5.14 1.60 - 8.30 x10'3/uL 09/08/2023 11:34 AM CDT [facility] ABS. LYMPHOCYTES 1.63 0.80 - 4.70 x10'3/uL 09/08/2023 11:34 AM CDT [facility] ABS. MONOCYTES 0.46 0.00 - 1.50 x10'3/uL 09/08/2023 11:34 AM T [facility] ABS. EOSINOPHILS 0.47(H) 0.00 - 0.40 x10'3/uL 09/08/2023 11:34 AM T [facility] ABS. BASOPHILS 0.10 0.00 - 0.20 x10'3/uL 09/08/2023 11:34 AM CDT [facility] ABS. IMMATURE GRANULOCYTES 0.08(H) 0.00 - 0.03 x10'3/uL 09/08/2023 11:34 AM T [facility] ABS. NUCLEATED RBC'S 0.00 0.00 x10'3/uL 09/08/2023 11:34 AM T [facility] 09/08/2023 10:0 0 AM CDT us Mery Maxwell MD LABORATORY Final Resu lt [facility] [address] [id number], * MAGNESIUM (09/08/2023 10:00 AM CDT) MAGNESIUM 1.8 1.8 - 2.4 MG/DL 09/08/2023 11:51 AM CDT [facility] 09/08/2023 10:0 0 AM CDT Mery Maxwell MD LABORATORY Final Resu lt Performing Organization Address [facility]/ZIP Co de Phone Number [facility] [address] [place] [address], * (ABNORMAL) COMPREHENSIVE METABOLIC PANEL (09/08/2023 10:00 AM CDT) SODIUM S/P/B 137 136 - 145 MMOL/L 09/08/2023 11:51 AM CDT [facility] POTASSIUM S/P/B 3.6 3.5 - 5.1 MMOL/L 09/08/2023 11:51 AM CDT [facility] CHLORIDE S/P/B 98 98 - 107 MMOL/L 09/08/2023 11:51 AM CDT [facility] CO2 25.5 21.0 - 32.0 MMOL/L 09/08/2023 11:51 AM CDT [facility] GLUCOSE 152(H) 70 - 99 MG/DL 09/08/2023 11:51 AM CDT [facility] Comment: FASTING GLUCOSE 100 TO 125 MG/DL IS CONSISTENT WITH IMPAIRED FASTING GLUCOSE. FASTING GLUCOSE >125 MG/DL IS CONSISTENT WITH DIABETES. RANDOM GLUCOSE >200 MG/DL WITH HYPERGLYCEMIC SYMPTOMS IS CONSISTENT WITH DIABETES. PER ADA GUIDELINES BUN 59(H) 6 - 24 MG/DL 09/08/2023 11:51 AM [facility] CREATININE S/P/B 6.39(H) 0.70 - 1.30 MG/DL 09/08/2023 11:51 AM [facility] CALCIUM S/P/B 9.0 8.4 - 10.5 MG/DL 09/08/2023 11:51 AM [facility] BILIRUBIN TOTAL S/P/B 0.6 0.2 - 1.0 MG/DL 09/08/2023 11:51 AM [facility] Comment: THIS ASSAY IS NOT RECOMMENDED FOR PATIENTS UNDERGOING TREATMENT WITH ELTROMBOPAG DUE TO THE POTENTIAL FOR FALSELY ELEVATED RESULTS. ALKALINE PHOSPHATASE S/P/B 52 45 - 115 U/L 09/08/2023 11:51 AM [facility] AST 14(L) 15 - 37 U/L 09/08/2023 11:51 AM [facility] ALT 17 16 - 63 U/L 09/08/2023 11:51 AM [facility] TOTAL PROTEIN S/P/B 7.9 6.4 - 8.2 G/DL 09/08/2023 11:51 AM [facility] ALBUMIN S/P/B 3.4 3.4 - 5.0 G/DL 09/08/2023 11:51 AM [facility] ANION GAP 13.5 5.0 - 15.0 MMOL/L 09/08/2023 11:51 AM [facility] OSMOLALITY (CALC) 304 MOSM/KG 024 11:51 AM [facility] Comment:REFERENCE RANGE NOT ESTABLISHED GFR ESTIMATE 10(L) >89 ML/MIN/1. 73 M2 09/08/2023 11:51 AM [facility] GFR NOTES GFR REFERENCE S: 09/08/2023 11:51 AM [facility] Comment: THE ESTIMATED GFR [...] Mery Maxwell MD LABORATORY Final Resu lt [facility] [address] [place] [address], documented in this encounter Visit Diagnoses Diagnosis Hypertension Unspecified essential hypertension Hypomagnesemia Disorders of magnesium metabolism Hypokalemia Hypopotassemia documented in this encounter Care Teams Manufacturing Technologist Relationship Specialty Start Date End Date Mery Maxwell MD [address] [place] [phone] PCP - General FAMILY PRACTICE 08/19/23 documented as of this encounter
--- OUTSIDE RECORDS SUMMARY | 2024-06-22 19:03 | XMS_ITS | Encounter Summary ---
Author Organization [facility] Address [address] [place] [address]. [place] [address] [place] [address] Care Team Providers Care Manufacturing Process Engineer Name Role Phone Mery Maxwell MD Primary Care Provider [phone]- [phone] Encounter Details Date Type Department Care Team (Late st Contact Info) Description 01/08/2024 Scan [facility] [address] [place] [phone] Scanned, Doc Pccl Social History Tobacco Use Types Packs/Day Years Used Date Smoking Tobacco: Former Cigarettes Smokeless Tobacco: Never Alcohol Use Standard Drinks/Week Comments Not Currently 0 (1 standard drink = 0.6 oz pur e alcohol) [facility] Utilities Answer Date Recorded In the past 12 months has e [employer], gas, oil, or water [employer] threatened to shut off services in your [...] a penitentiary (including now)? Patient declined 09/01/2023 Housing Stability [...] time in the past 12 m [facility], were you homeless or living in a penitentiary (including now)? 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 RN documented as of this encounter Visit Diagnoses Not on filedocumented in this encounter Care Teams Manufacturing Process Engineer Relationship Specialty Start Date End Date Mery Maxwell MD [address] [place] [phone] PCP - General FAMILY PRACTICE 08/19/23 documented as of this encounter
--- OUTSIDE RECORDS SUMMARY | 2024-06-22 19:03 | XMS_ITS | Encounter Summary ---
Author Organization [facility] Address [address] [place] [address]. [place], [place] [address] [place] [id number] Care Team Providers Care Business Project Manager Name Role Phone Mery Maxwell MD Primary Care Provider [phone] Reason for Referral * (Routine) - New Request Specialty Diagnoses / Procedures Referred By Flako t Referred To Contact Procedures OT Eval and Treat [place] [address] [place] [address] Phone: tel: Referral ID Status Reason Start Date Expiration Date V isits Requested Visits Authorized [id number] New Request 09/03/2023 09/02/2024 1 1 * (Routine) - New Request Specialty Diagnoses / Procedures Referred By Flako t Referred To Contact Procedures PT Eval and Treat [place] [address] [place] [address] Phone: tel: Referral ID Status Reason Start Date Expiration Date V isits Requested Visits Authorized [id number] New Request 09/03/2023 09/02/2024 1 1 * Imaging (Urgent) - Pending Review Specialty Diagnoses / Procedures Referred By Contkalli t Referred To Contact RADIOLOGY Procedures USE ECHOCARDIOGRAM W CON USE ECHOCARDIOGRAM Denise De La O MD 1 [place] [address] Phone: tel: fax: Referral ID Status Reason Start Date Expiration Date V isits Requested Visits Authorized [id number] Pending Review 09/01/2023 08/31/2024 1 1 * Imaging (Urgent) - New Request Specialty Diagnoses / Procedures Referred By Contac t Referred To Contact RADIOLOGY Procedures US CAROTID DUPLEX ANTHONY Denise De La O MD 1 [place] [address] Phone: tel: fax: Referral ID Status Reason Start Date Expiration Date V isits Requested Visits Authorized [id number] New Request 09/01/2023 08/31/2024 1 1 * (Routine) - New Request Specialty Diagnoses / Procedures Referred By Contac t Referred To Contact Procedures OT eval and treat Ed Hair MD [address] [place] [address] Phone: tel: fax: Referral ID Status Reason Start Date Expiration Date V isits Requested Visits Authorized [id number] New Request 09/01/2023 08/31/2024 1 1 * (Routine) - New Request Specialty Diagnoses / Procedures Referred By Contac t Referred To Contact Procedures PT eval and Ed Clement MD [address] [place] [address] Phone: tel: fax: Referral ID Status Reason Start Date Expiration Date V isits Requested Visits Authorized [id number] New Request 09/01/2023 08/31/2024 1 1 Reason for Visit * Auth/Cert (Routine) Specialty Diagnoses / Procedures Referred By Flako t Referred To Contact Diagnoses Hypokalemia EKG, abnormal HYPOKALEMIA, HYPOMAGNESEMIA Procedures NONE Ed Hair MD 1 [place] [address] Phone: tel: fax: Referral ID Status Reason Start Date Expiration Date Visits Re quested Visits Authorized [id number] 1 1 Encounter Details Date Type Department Care Team (Latest Contact Info) Description 09/01/2023 10:17 PM CDT - 09/04/2023 6:37 PM CDT Hospital Encounter [address] [address] Ed Hair MD 1 [place] [id number] Denise De La O MD 1 [place] [address] Troy Pagan MD 1 [place] [address] Discharge Disposition: Home or Self Care (Routine Discharge) Social History Tobacco Use Types Packs/Day Years Used Date Smoking Tobacco: Former Cigarettes Smokeless Tobacco: Never Alcohol Use Standard Drinks/Week Comments Not Currently 0 (1 standard drink = 0.6 oz pur e alcohol) [facility] Utilities Answer Date Recorded In the past [address] [facility] [employer], gas, oil, or water [employer] threatened to shut off services in your [...] a retirement (including now)? Patient declined 09/01/2023 Sex and [...] Discharge Summary Note Patient ID: Vinay Wilburn [id number] 52-year-old 1970 Primary care physician:MERY MAXWELL MD [...] discharged with p.o. potassium supplements. Discussed with family caseworker on discharge plan I have personally seen and examined patient at time of discharge. Vitals stable and physical exam benign at time of discharge. Discharge medications as per medication reconciliation. Patient advised to call PCP or go to emergency room if symptoms worsen. Patient completely understands instructions given at time of discharge. Discussed with RN on discharge plan. Thank you for choosing [facility] -PLEASE CALL [phone] EXT [phone] IF ANY QUESTIONS Code Status: Full Code [...] and renal diet Mery Maxwell MD [address] [facility] [id number] Follow up Bebo Kearns MD [address] [facility] [id number] Follow up in 1 week(s) Total discharge [...] mcg total) by mouth every other day. --[facility] 08/03/2023 02/26/2024 carvedilol (COREG) 12.5 MG [...] @LASTFILEDTEMP@ @24HOURRANGETEMP@ @LASTFILEDPULSE@ @24HOURRANGEPULSE@ @LASTFILEDRR@ @24HOURRANGERR@ @LASTFILEDSPO2@ @40CIPAOLMEKVJO8@ Intake/Output Summary (Last 24 hours) at 09/04/2023 [...] and Mineral Disease: Goal for the iPTH [id number] pg/ml and phosphorus level between 3.5-5.5 mg/dl. [...] @LASTFILEDTEMP@ @24HRANGETEMP@ @LASTFILEDPULSE@ @24HOURRANGEPULSE@ @LASTFILEDRR@ @24HOURRANGERR@ @LASTFILEDSPO2@ @85EMERSCQHOLUT9@ Intake/Output Summary (Last 24 hours) at 09/03/2023 [...] and Mineral Disease: Goal for the iPTH [id number] pg/ml and phosphorus level between 3.5-5.5 mg/dl. [...] the plan Get PT/OT evaluation Discussed with family caseworker on discharge plan, possible discharge tomorrow Total [...] Hospitalization within 30 days Yes (Recently at [facility]) Baseline ADL's Functional Status Independent Active DME Wheelchair Behavior Oriented;Cooperative Communication Talks;Understands speaking;Understands Iraqi Current Services Being Provided Outpt therapy Dialysis Psychosocial Need Indicator Mental health concerns No Diagnosis/prognosis resulting in poor adjustment or coping with illness No Diagnosis/prognosis with anticipated outcome of major lifestyle changes, including change in penitentiary living environment No Complex Family concerns No [...] with useof wheelchair. Dialysis through [facility] in [place] on . May require transportation home. PCP: Dr. Arboleda (recently seen) Pharm: Abimael. * Nichol Carty, PT - 09/03/2023 8:04 AM CDT Medical Cancel: P/T order received and chart reviewed. OT evaluated pt on 09/01 and pt able to perform stand pivot transfer to/from bed to/from w/c without AD with [place]. 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 Pt presents as SBA/[place] for grooming and functional transfers; requires assist [...] reports living with his sister and his [id number] in a 1- story house with basement, [...] a manual w/c for functional mobility. Reports [place] with pivot transfers, does not use any [...] Hand Comment Pt with decreased coordination and sugar cane planter strength at baseline, difficulting fulling extending digits; [...] to/from bed to/from w/c without AD with [place]. Uses w/c arm and bed rail for [...] Name: Vinay Wilburn Primary Language of learner: Iraqi Patient was educated on precautions transfers ADLs balance bed mobility equipment therapy plan safety. Education was completed one to one verbal hands-on this date. Preference of learning new concepts one to one verbal hands-on Barriers to education this date were Pt motivation fatigue. Response to education this date verbalized understanding demos adequately needs assistance. * Freida rBady RN - 09/02/2023 10:00 AM CDT 09/02/23 [...] and Mg and is being transferred to [facility] for further evaluation and management. He told [...] prolonged QTc and is being transferred to [facility]. I reviewed the previous medical record, last [...] normal. 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 [...] 09/03/2023 6:54 AM CDT Patient dialyzes [facility] [place] [facility]... records requested 09/03/2023. 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 [employer] Office Visit [facility]-[address] [place] [id number] Martha Ramirez, [facility]- [address] [place] [address] documented as of this encounter Procedures Procedure [...] 70 - 109 09/04/2023 4:21 PM CDT [facility] 09/04/2023 4:17 PM CDT us Troy Pagan MD POCT ORDERABLES - DEVICE Final Result Performing Organization Address [facility] Co de Phone Number [facility] [address] [place] [address], [phone] * (ABNORMAL) POCT glucose (09/04/2023 11:25 AM CDT) GLUCOSE POC 160(H) 70 - 109 09/04/2023 11:27 AM CDT [facility] 09/04/2023 11:2 5 AM CDT us Troy Pagan MD POCT ORDERABLES - DEVICE Final Result Performing Organization Address [facility] Co de Phone Number [facility] [address] [place] [address], [place] [phone] * (ABNORMAL) POCT glucose (09/04/2023 6:22 AM CDT) GLUCOSE POC 158(H) 70 - 109 09/04/2023 6:27 AM CDT [facility] 09/04/2023 6:22 AM CDT us Troy Pagan MD POCT ORDERABLES - DEVICE Final Result Performing Organization Address City/[facility] Co de Phone Number [facility] [address] [place] [address], [phone] * PHOSPHORUS, INORGANIC PHOSPHATE (09/04/2023 4:18 AM CDT) PHOSPHORUS 4.4 2.5 - 4.9 MG/DL 09/04/2023 5:20 AM CDT [facility] 09/04/2023 4:18 AM CDT Troy Pagan MD LABORATORY Final Res ult [facility] [address] [place] [address], [phone] * (ABNORMAL) CBC W/DIFF AUTOMATED (09/04/2023 4:18 AM CDT) Pathologist [facility] WBC 6.65 4.00 - 10.80 x10'3/uL 09/04/2023 4:41 AM CDT [facility] RBC 3.38(L) 4.50 - 6.10 x10'6/uL 09/04/2023 4:41 AM CDT [facility] HGB 10.9(L) 13.0 - 18.0 G/DL 09/04/2023 4:41 AM CDT [facility] HCT 34.1(L) 37.0 - 52.0 % 09/04/2023 4:41 AM CDT [facility] MCV 100.9(H) 78.0 - 100.0 FL 09/04/2023 4:41 AM CDT [facility] MCH 32.2(H) 27.0 - 31.0 PG 09/04/2023 4:41 AM CDT [facility] MCHC 32.0(L) 33.0 - 36.0 G/DL 09/04/2023 4:41 AM CDT [facility] RDW 14.4 11.5 - 14.5 % 09/04/2023 4:41 AM CDT [facility] PLT 231 150 - 350 x10'3/uL 09/04/2023 4:41 AM CDT [facility] MPV 9.6 7.4 - 10.4 FL 09/04/2023 4:41 AM CDT [facility] ABS. NEUTROPHILS 3.75 1.60 - 8.30 x10'3/uL 09/04/2023 4:41 AM CDT [facility] ABS. LYMPHOCYTES 1.59 0.80 - 4.70 x10'3/uL 09/04/2023 4:41 AM CDT [facility] ABS. MONOCYTES 0.51 0.00 - 1.50 x10'3/uL 09/04/2023 4:41 AM CDT [facility] ABS. EOSINOPHILS 0.64(H) 0.00 - 0.40 x10'3/uL 09/04/2023 4:41 AM CDT [facility] ABS. BASOPHILS 0.08 0.00 - 0.20 x10'3/uL 09/04/2023 4:41 AM CDT [facility] ABS. IMMATURE GRANULOCYTES 0.08(H) 0.00 - 0.03 x10'3/uL 09/04/2023 4:41 AM CDT [facility] ABS. NUCLEATED RBC'S 0.00 0.0 x10'3/uL 09/04/2023 4:41 AM CDT [facility] 09/04/2023 4:18 AM CDT us Troy Pagan MD LABORATORY Final Res ult [facility] [address] [place] [address], [phone] * (ABNORMAL) COMPREHENSIVE METABOLIC PANEL (09/04/2023 4:18 AM CDT) SODIUM S/P/B 137 136 - 145 MMOL/L 09/04/2023 5:20 AM CDT [facility] POTASSIUM S/P/B 3.3(L) 3.5 - 5.1 MMOL/L 09/04/2023 5:20 AM CDT [facility] CHLORIDE S/P/B 101 98 - 107 MMOL/L 09/04/2023 5:20 AM CDT [facility] CO2 27.9 21.0 - 32.0 MMOL/L 09/04/2023 5:20 AM CDT [facility] GLUCOSE 183(H) 74 - 106 MG/DL 09/04/2023 5:20 AM CDT [facility] BUN 34(H) 7 - 18 MG/DL 09/04/2023 5:20 AM CDT [facility] CREATININE S/P/B 4.78(H) 0.70 - 1.30 MG/DL 09/04/2023 5:20 AM CDT [facility] CALCIUM S/P/B 9.3 8.5 - 10.1 MG/DL 09/04/2023 5:20 AM CDT [facility] BILIRUBIN TOTAL S/P/B 0.7 0.2 - 1.0 MG/DL 09/04/2023 5:20 AM CDT [facility] ALKALINE PHOSPHATASE S/P/B 49 45 - 115 U/L 09/04/2023 5:20 AM CDT [facility] AST 12(L) 15 - 37 U/L 09/04/2023 5:20 AM CDT [facility] ALT 16 16 - 61 U/L 09/04/2023 5:20 AM CDT [facility] TOTAL PROTEIN S/P/B 7.5 6.4 - 8.2 G/DL 09/04/2023 5:20 AM CDT [facility] ALBUMIN S/P/B 3.2(L) 3.4 - 5.0 G/DL 09/04/2023 5:20 AM CDT [facility] ANION GAP 8.1 5.0 - 15.0 MMOL/L 09/04/2023 5:20 AM CDT [facility] OSMOLALITY (CALC) 296 MOSM/KG 024 5:20 AM CDT [facility] Comment:REFERENCE RANGE NOT ESTABLISHED GFR ESTIMATE 14(L) >90 ML/MIN/1. 73 M2 09/04/2023 5:20 AM CDT [facility] GFR NOTES GFR REFERENCE S: 09/04/2023 5:20 AM CDT [facility] Comment: THE ESTIMATED GFR IS [...] Troy Pagan MD LABORATORY Final Res ult [facility] [address] [place] [address], [phone] * MAGNESIUM (09/04/2023 4:18 AM CDT) MAGNESIUM 2.1 1.6 - 2.6 MG/DL 09/04/2023 5:20 AM CDT [facility] 09/04/2023 4:18 AM CDT Denise De La O MD LABORATORY Final Res ult [facility] [address] [place] [address], [place] [phone] * (ABNORMAL) POCT glucose (09/03/2023 8:38 PM CDT) GLUCOSE POC 158(H) 70 - 109 09/03/2023 8:58 PM CDT [facility] 09/03/2023 8:38 PM CDT us Troy Pagan MD POCT ORDERABLES - DEVICE Final Result Performing Organization Address [facility] Co de Phone Number [facility] [address] [place] [address], [place] [phone] * (ABNORMAL) POCT glucose (09/03/2023 4:38 PM CDT) GLUCOSE POC 161(H) 70 - 109 09/03/2023 5:09 PM CDT [facility] 09/03/2023 4:38 PM CDT us Troy Pagan MD POCT ORDERABLES - DEVICE Final Result Performing Organization Address [facility] Co de Phone Number [facility] [address] [place] [address], [place] [phone] * (ABNORMAL) POCT glucose (09/03/2023 1:15 PM CDT) GLUCOSE POC 168(H) 70 - 109 09/03/2023 1:18 PM CDT [facility] 09/03/2023 1:15 PM CDT us Troy Pagan MD POCT ORDERABLES - DEVICE Final Result Performing Organization Address [facility]/ZIP Co de Phone Number [facility] [address] [place] [address], [phone] * HEPATITIS B SURFACE AG, EIA (09/03/2023 9:30 AM CDT) HEPATITIS B SURFACE AG NON-REACTI VE NON-REACTI VE 09/03/2023 11:08 AM CDT [facility] Comment:HBsAg NOT DETECTED. 09/03/2023 9:30 AM CDT Bebo Kearns MD LABORATORY Final Result Performing Organization Address City/[facility]/ZIP Co de Phone Number [facility] [address] [place] [address], [phone] * (ABNORMAL) HEPATITIS B SURFACE ANTIBODY (09/03/2023 9:30 AM CDT) HEP B SURFACE AB <3.1(L) >9.9 MIU/ML 09/03/2023 11:08 AM CDT [facility] Comment:INDIVIDUAL IS CONSID ERED NOT IMMUNE TO HBV INFECTION. 09/03/2023 9:30 AM CDT Bebo Kearns MD LABORATORY Final Result [facility] [address] [place] [address], [phone] * (ABNORMAL) PHOSPHORUS, INORGANIC PHOSPHATE (09/03/2023 9:30 AM CDT) PHOSPHORUS 5.4(H) 2.5 - 4.9 MG/DL 09/03/2023 10:18 AM CDT [facility] 09/03/2023 9:30 AM CDT Troy Pagan MD LABORATORY Final Res ult [facility] [address] [place] [address], [phone] * (ABNORMAL) CBC W/DIFF AUTOMATED (09/03/2023 9:30 AM CDT) WBC 6.91 4.00 - 10.80 x10'3/uL 09/03/2023 9:52 AM CDT [facility] RBC 3.22(L) 4.50 - 6.10 x10'6/uL 09/03/2023 9:52 AM CDT [facility] HGB 10.7(L) 13.0 - 18.0 G/DL 09/03/2023 9:52 AM CDT [facility] HCT 32.7(L) 37.0 - 52.0 % 09/03/2023 9:52 AM CDT [facility] MCV 101.6(H) 78.0 - 100.0 FL 09/03/2023 9:52 AM CDT [facility] MCH 33.2(H) 27.0 - 31.0 PG 09/03/2023 9:52 AM CDT [facility] MCHC 32.7(L) 33.0 - 36.0 G/DL 09/03/2023 9:52 AM CDT [facility] RDW 14.6(H) 11.5 - 14.5 % 09/03/2023 9:52 AM CDT [facility] PLT 247 150 - 350 x10'3/uL 09/03/2023 9:52 AM CDT [facility] MPV 9.8 7.4 - 10.4 FL 09/03/2023 9:52 AM CDT [facility] ABS. NEUTROPHILS 4.41 1.60 - 8.30 x10'3/uL 09/03/2023 9:52 AM CDT [facility] ABS. LYMPHOCYTES 1.46 0.80 - 4.70 x10'3/uL 09/03/2023 9:52 AM CDT [facility] ABS. MONOCYTES 0.35 0.00 - 1.50 x10'3/uL 09/03/2023 9:52 AM CDT [facility] ABS. EOSINOPHILS 0.53(H) 0.00 - 0.40 x10'3/uL 09/03/2023 9:52 AM CDT [facility] ABS. BASOPHILS 0.08 0.00 - 0.20 x10'3/uL 09/03/2023 9:52 AM CDT [facility] ABS. IMMATURE GRANULOCYTES 0.08(H) 0.00 - 0.03 x10'3/uL 09/03/2023 9:52 AM CDT [facility] ABS. NUCLEATED RBC'S 0.00 0.0 x10'3/uL 09/03/2023 9:52 AM CDT [facility] 09/03/2023 9:30 AM CDT us Troy Pagan MD LABORATORY Final Res ult [facility] [address] [place] [address], [phone] * (ABNORMAL) COMPREHENSIVE METABOLIC PANEL (09/03/2023 9:30 AM CDT) Pathologist [facility] SODIUM S/P/B 135(L) 136 - 145 MMOL/L 09/03/2023 10:18 AM CDT [facility] POTASSIUM S/P/B 3.3(L) 3.5 - 5.1 MMOL/L 09/03/2023 10:18 AM CDT [facility] CHLORIDE S/P/B 101 98 - 107 MMOL/L 09/03/2023 10:18 AM CDT [facility] CO2 24.9 21.0 - 32.0 MMOL/L 09/03/2023 10:18 AM [facility] GLUCOSE 216(H) 74 - 106 MG/DL 09/03/2023 10:18 AM [facility] BUN 49(H) 7 - 18 MG/DL 09/03/2023 10:18 AM [facility] CREATININE S/P/B 5.45(H) 0.70 - 1.30 MG/DL 09/03/2023 10:18 AM [facility] CALCIUM S/P/B 9.1 8.5 - 10.1 MG/DL 09/03/2023 10:18 AM [facility] BILIRUBIN TOTAL S/P/B 0.6 0.2 - 1.0 MG/DL 09/03/2023 10:18 AM [facility] ALKALINE PHOSPHATASE S/P/B 43(L) 45 - 115 U/L 09/03/2023 10:18 AM [facility] AST 12(L) 15 - 37 U/L 09/03/2023 10:18 AM [facility] ALT 13(L) 16 - 61 U/L 09/03/2023 10:18 AM [facility] TOTAL PROTEIN S/P/B 7.2 6.4 - 8.2 G/DL 09/03/2023 10:18 AM [facility] ALBUMIN S/P/B 3.1(L) 3.4 - 5.0 G/DL 09/03/2023 10:18 AM [facility] ANION GAP 9.1 5.0 - 15.0 MMOL/L 09/03/2023 10:18 AM [facility] OSMOLALITY (CALC) 300 MOSM/KG 024 10:18 AM [facility] Comment:REFERENCE RANGE NOT ESTABLISHED GFR ESTIMATE 12(L) >90 ML/MIN/1. 73 M2 09/03/2023 10:18 AM CDT [facility] GFR NOTES GFR REFERENCE S: 09/03/2023 10:18 AM CDT [facility] Comment: THE ESTIMATED GFR IS [...] Troy Pagan MD LABORATORY Final Res ult [facility] [address] [place] [address], [phone] * MAGNESIUM (09/03/2023 9:30 AM CDT) MAGNESIUM 2.0 1.6 - 2.6 MG/DL 09/03/2023 10:18 AM CDT [facility] 09/03/2023 9:30 AM CDT Denise De La O MD LABORATORY Final Res ult Performing Organization Address City/[facility]/ZIP Co de Phone Number [facility] [address] [place] [address], [phone] * (ABNORMAL) POCT glucose (09/03/2023 6:43 AM CDT) GLUCOSE POC 170(H) 70 - 109 09/03/2023 6:52 AM CDT [facility] 09/03/2023 6:43 AM CDT us Troy Pagan MD POCT ORDERABLES - DEVICE Final Result Performing Organization Address [facility] Co de Phone Number [facility] [address] [place] [address], [phone] * (ABNORMAL) POCT glucose (09/02/2023 9:28 PM CDT) Pathologist [facility] GLUCOSE POC 242(H) 70 - 109 09/02/2023 9:31 PM CDT [facility] 09/02/2023 9:28 PM CDT us Troy Pagan MD POCT ORDERABLES - DEVICE Final Result Performing Organization Address [facility] de Phone Number [facility] [address] [place] [address], [phone] * CLOSTRIDIUM DIFFICILE (09/02/2023 6:45 PM CDT) [facility]DH ANTIGEN NEGATIVE NEGATIVE 09/02/2023 9:07 PM CDT [facility] C DIFFICILE TOXIN A&B (STOOL) NEGATIVE NEGATIVE 09/02/2023 9:07 PM CDT [facility] COMMENT GDH NEGATIVE/TOXI N A & B NEGATIVE: NEGATIVE FOR TOXIGENIC C. DIFFICILE. GDH NEGATIVE/TOXI N A & B NEGATIVE: NEGATIVE FOR TOXIGENIC C. 09/02/2023 9:07 PM CDT [facility] STOOL SPECIMEN / Unknown 09/02/2023 6:45 PM CDT us Troy Pagan MD BODY FLUIDS AND STOOLS OR DERABLES Final Result Performing Organization Address [facility] Co de Phone Number [facility] [address] [place] [address], [phone] * (ABNORMAL) POCT glucose (09/02/2023 4:57 PM CDT) GLUCOSE POC 192(H) 70 - 109 09/02/2023 5:01 PM CDT [facility] 09/02/2023 4:57 PM CDT Troy Pagan MD POCT ORDERABLES - DEVICE Final Result Performing Organization Address [facility] de Phone Number [facility] [address] [place] [address], [phone] * (ABNORMAL) POCT glucose (09/02/2023 11:38 AM CDT) GLUCOSE POC 238(H) 70 - 109 09/02/2023 11:59 AM CDT [facility] 09/02/2023 11:3 8 AM CDT Troy Pagan MD POCT ORDERABLES - DEVICE Final Result Performing Organization Address [facility] de Phone Number [facility] [address] [place] [address], [phone] * USE ECHOCARDIOGRAM W CON (09/02/2023 10:20 AM CDT) Anatomical Region Laterality Modality NA Echocardiogram 09/02/2023 9:52 AM CDT Narrative 09/03/2023 12:23 PM CDT ?Echocardiography Report Pat.Name: ??VINAY WILBURN ?Pat.ID: ?[id number] ? St.Date: ?? 09/02/2023 ? Refer.MD: ??[id number] ANKIT WILKS ?EWDPROV ?EWDPROV Exam Time: 9:52:00 AM ?Study Type:ECHO W/CONTRAST COMPLETE Height: ?73 in ? Weight: ?250 lb ? BSA: ? 2.37 m2 ?Age: ??1970,52Y ? Sex: ? M ? BP: ?132/68 ? HR: ?57 bpm ?Sonogrphr: Kiana Lyle RDCS ? Pat. Stat.:Inpatient ? Room: ?655 ? Reason for Study:Near syncope ? Procedures: [...] ?? Value ?210 g ? LV Mass [id number] ?? Value ? 88.6 g/m2 ? Right [...] 09/04/2023 Echocardiography Report Pat.Name: VINAY WILBURN Holly.ID: [id number] St.Date: 09/02/2023 Refer.: [id number] ANKIT WILKS EWDPROV EWDPROV Exam Time: 9:52:00 AM Study Type:ECHO W/CONTRAST COMPLETE Height: 73 in Weight: 250 lb BSA: 2.37 m2 Age: 6 1970,52Y Sex: M BP: 132/68 HR: 57 bpm Sonogrphr: Kiana Lyle [facility] Pat. Stat.:Inpatient Room: 738 Reason for [...] Mass 2D Value 210 g LV Mass [id number] Value 88.6 g/m2 Right Ventricle Right Ventricle [...] 70 - 109 09/02/2023 8:07 AM CDT [facility] 09/02/2023 8:03 AM CDT Troy Pagan MD POCT ORDERABLES - DEVICE Final Result [facility] [address] [place] [address], [id number] * US CAROTID DUPLEX ANTHONY (09/02/2023 7:50 [...] 7.4(H) <5.7 % 09/02/2023 3:34 PM CDT [facility] ESTIMATED AVG GLUCOSE 166(H) 74 - 114 MG/DL 09/02/2023 3:34 PM CDT [facility] 09/02/2023 2:49 AM CDT Troy Pagan MD LABORATORY Final Res ult Performing Organization Address City/[facility] Co de Phone Number [facility] [address] [place] [address], [phone] * MAGNESIUM (09/02/2023 2:49 AM CDT) MAGNESIUM 2.0 1.6 - 2.6 MG/DL 09/02/2023 3:53 AM CDT [facility] 09/02/2023 2:49 AM CDT Denise De La O MD LABORATORY Final Res ult Performing Organization Address [facility] Co de Phone Number [facility] [address] [place] [address], [phone] * (ABNORMAL) BASIC METABOLIC PANEL (09/02/2023 2:49 AM CDT) SODIUM S/P/B 137 136 - 145 MMOL/L 09/02/2023 3:53 AM CDT [facility] POTASSIUM S/P/B 3.1(L) 3.5 - 5.1 MMOL/L 09/02/2023 3:53 AM CDT [facility] CHLORIDE S/P/B 99 98 - 107 MMOL/L 09/02/2023 3:53 AM CDT [facility] CO2 29.0 21.0 - 32.0 MMOL/L 09/02/2023 3:53 AM CDT [facility] GLUCOSE 225(H) 74 - 106 MG/DL 09/02/2023 3:53 AM CDT [facility] BUN 36(H) 7 - 18 MG/DL 09/02/2023 3:53 AM CDT [facility] CREATININE S/P/B 4.19(H) 0.70 - 1.30 MG/DL 09/02/2023 3:53 AM CDT [facility] CALCIUM S/P/B 9.4 8.5 - 10.1 MG/DL 09/02/2023 3:53 AM CDT [facility] ANION GAP 9.0 5.0 - 15.0 MMOL/L 09/02/2023 3:53 AM CDT [facility] OSMOLALITY (CALC) 299 MOSM/KG 024 3:53 AM T [facility] Comment:REFERENCE RANGE NOT ESTABLISHED GFR ESTIMATE 16(L) >90 ML/MIN/1. 73 M2 09/02/2023 3:53 AM CDT [facility] GFR NOTES GFR REFERENCE S: 09/02/2023 3:53 AM CDT [facility] Comment: THE ESTIMATED GFR IS [...] La O MD LABORATORY Final Res ult [facility] [address] [place] [id number], [id number] * (ABNORMAL) CBC W/DIFF AUTOMATED (09/02/2023 2:49 AM CDT) [facility] WBC 7.68 4.00 - 10.80 x10'3/uL 09/02/2023 3:13 AM CDT [facility] RBC 3.55(L) 4.50 - 6.10 x10'6/uL 09/02/2023 3:13 AM CDT [facility] HGB 11.6(L) 13.0 - 18.0 G/DL 09/02/2023 3:13 AM CDT [facility] HCT 35.4(L) 37.0 - 52.0 % 09/02/2023 3:13 AM CDT [facility] MCV 99.7 78.0 - 100.0 FL 09/02/2023 3:13 AM CDT [facility] MCH 32.7(H) 27.0 - 31.0 PG 09/02/2023 3:13 AM CDT [facility] MCHC 32.8(L) 33.0 - 36.0 G/DL 09/02/2023 3:13 AM CDT [facility] RDW 14.3 11.5 - 14.5 % 09/02/2023 3:13 AM CDT [facility] PLT 253 150 - 350 x10'3/uL 09/02/2023 3:13 AM CDT [facility] MPV 9.8 7.4 - 10.4 FL 09/02/2023 3:13 AM CDT [facility] ABS. NEUTROPHILS 4.78 1.60 - 8.30 x10'3/uL 09/02/2023 3:13 AM CDT [facility] ABS. LYMPHOCYTES 1.84 0.80 - 4.70 x10'3/uL 09/02/2023 3:13 AM CDT [facility] ABS. MONOCYTES 0.51 0.00 - 1.50 x10'3/uL 09/02/2023 3:13 AM CDT [facility] ABS. EOSINOPHILS 0.42(H) 0.00 - 0.40 x10'3/uL 09/02/2023 3:13 AM CDT [facility] ABS. BASOPHILS 0.07 0.00 - 0.20 x10'3/uL 09/02/2023 3:13 AM CDT [facility] ABS. IMMATURE GRANULOCYTES 0.06(H) 0.00 - 0.03 x10'3/uL 09/02/2023 3:13 AM CDT [facility] ABS. NUCLEATED RBC'S 0.00 0.0 x10'3/uL 09/02/2023 3:13 AM CDT [facility] 09/02/2023 2:49 AM CDT Denise De La O MD LABORATORY Final Res ult Performing Organization Address [facility] Co de Phone Number [facility] [address] [place] [address], [phone] * MAGNESIUM (09/02/2023 12:30 AM CDT) MAGNESIUM 1.9 1.6 - 2.6 MG/DL 09/02/2023 1:06 AM CDT [facility] 09/02/2023 12:3 0 AM CDT Denise De La O MD LABORATORY Final Res ult Performing Organization Address City/[facility]/ZIP Co de Phone Number [facility] [address] [place] [address], [phone] * (ABNORMAL) BASIC METABOLIC PANEL (09/02/2023 12:30 AM CDT) SODIUM S/P/B 138 136 - 145 MMOL/L 09/02/2023 1:20 AM T [facility] POTASSIUM S/P/B 2.9(LL) 3.5 - 5.1 MMOL/L 09/02/2023 1:20 AM T [facility] Comment: Critical Result(s) Called to and read back by: CABRERA TONEY ?? at: 01:21:01 ?? 09/02/2023 by JAVIER. CHLORIDE S/P/B 96(L) 98 - 107 MMOL/L 09/02/2023 1:20 AM T [facility] CO2 32.5(H) 21.0 - 32.0 MMOL/L 09/02/2023 1:20 AM T [facility] GLUCOSE 247(H) 74 - 106 MG/DL 09/02/2023 1:20 AM T [facility] BUN 35(H) 7 - 18 MG/DL 09/02/2023 1:20 AM T [facility] CREATININE S/P/B 4.01(H) 0.70 - 1.30 MG/DL 09/02/2023 1:20 AM T [facility] CALCIUM S/P/B 9.3 8.5 - 10.1 MG/DL 09/02/2023 1:20 AM [facility] ANION GAP 9.5 5.0 - 15.0 MMOL/L 09/02/2023 1:20 AM T [facility] OSMOLALITY (CALC) 302 MOSM/KG 024 1:20 AM T [facility] Comment:REFERENCE RANGE NOT ESTABLISHED GFR ESTIMATE 17(L) >90 ML/MIN/1. 73 M2 09/02/2023 1:20 AM T [facility] GFR NOTES GFR REFERENCE S: 09/02/2023 1:20 AM T [facility] Comment: THE ESTIMATED GFR IS [...] La O MD LABORATORY Final Res ult [facility] [address] [place] [address], [phone] * ECG 12 lead (09/01/2023 10:38 PM CDT) 09/01/2023 10:3 8 PM CDT Narrative [facility] - 09/02/2023 7:14 AM CDT ? [facility] ?[address], [place] ??[address] ? Test Date: ?2023-09-01 Pat Name: ? VINAY WILBURN ?Department: ?? 1 ? Room: ? 738AA Gender: ? Male ? 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 [place] : ?1970 ? Requested By: DENISE JAIRON Order Number: [id number] ? Reading : ?? Gonzalo Pardo ? Measurements Intervals ?[place] ? Rate: ? 58 ? P: ?46 ME: ? 199 ?QRS: ?-4 QRSD: ? 106 ?T: ?17 QT: ? 445 ? QTc: ?441 ? 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 Tax Consultant: Francisco : 1970 Requested By: DENISE DE LA O Order Number: [id number] Reading MD: Gonzalo Pardo Measurements Intervals [place] Rate: 58 P: 46 ME: 199 QRS: -4 QRSD: 106 T: 17 QT: 445 QTc: 441 Interpretive Statements SINUS BRADYCARDIA POSSIBLE LEFT ATRIAL ENLARGEMENT [-0.1mV P-WAVE IN V1/V2] NONSPECIFIC T-WAVE ABNORMALITY Denise De La O MD ECG ORDERABLES Final Res ult Performing Organization Address [facility] de Phone Number [facility] * (ABNORMAL) POCT glucose (09/01/2023 10:23 PM CDT) [facility] GLUCOSE POC 255(H) 70 - 109 09/01/2023 10:28 PM CDT [facility] 09/01/2023 10:2 3 PM CDT Denise De La O MD POCT ORDERABLES - DEVICE Final Result Performing Organization Address [facility] de Phone Number [facility] [address] [place] [address], [id number] documented in this encounter Visit Diagnoses Diagnosis [...] Provider: Kelly Obrien RN - Comment: pt [phone] (Not Given - Provider: Kelly Obrien RN - Reason: Provider Order - Comment: pt [phone] (Given - Provider: Lauren Courtney RN)[phone] (Given [...] or crush. [phone] (Given - Provider: Lauren Courtney RN) 0840 (Given - Provider: Omaira Gordon [...] option. documented in this encounter Care Teams Business Project Manager Relationship Specialty Start Date End Date Mery Maxwell MD [address] [place] [phone] PCP - General FAMILY PRACTICE 08/19/23 documented as of this encounter
--- OUTSIDE RECORDS SUMMARY | 2024-06-22 19:03 | XMS_ITS | Encounter Summary ---
Author Organization [facility] Address [address] [place] [address]. [place], [place] [id number] [place] [address] Care Team Providers Care Gas Specialist Name Role Phone Mery Maxwell MD Primary Care Provider [phone]- [phone] Encounter Details Date Type Department Care Team [...] st Contact Info) Description 07/20/2024 10:30 AM RESOURCE DEVELOPMENT DIRECTOR Office Visit [facility]-[address] [place] [phone] Martha Ramirez, ANP-[address] [address] documented as of this encounter Visit Diagnoses Not on filedocumented in this encounter Care Teams Gas Specialist Relationship Specialty Start Date End Date Mery Maxwell MD [address] [place] [phone] PCP - General FAMILY PRACTICE 08/19/23 documented as of this encounter
--- OUTSIDE RECORDS SUMMARY | 2024-06-22 19:03 | XMS_ITS | Encounter Summary ---
Author Organization [facility] Address [address] [place] [address]. [place], [place] [phone] [place] [address] Care Team Providers Care Relief Cook Name Role Phone Mery Maxwell MD Primary Care Provider [phone]- [phone] Encounter Details Date Type Department Care Team (Latest Contact Info) Description 10/06/2023 Travel Social History Tobacco Use Types Packs/Day Years Used Date Smoking Tobacco: Former Cigarettes Smokeless Tobacco: Never Alcohol Use Standard Drinks/Week Comments Not Currently 0 (1 standard drink = 0.6 oz pur e alcohol) [facility] Utilities Answer Date Recorded In the [...] a long-term (including now)? Patient declined 09/01/2023 Sex and [...] st Contact Info) Description 07/20/2024 10:30 AM NURSING OFFICER Office Visit [facility]-[address] [place] [address] Martha Ramirez [facility] [address] documented as of this encounter Visit Diagnoses Not on filedocumented in this encounter Care Teams Relief Cook Relationship Specialty Start Date End Date Mery Maxwell MD [address] [place] [phone] PCP - General FAMILY PRACTICE 08/19/23 documented as of this encounter
--- OUTSIDE RECORDS SUMMARY | 2024-06-22 19:03 | XMS_ITS | Encounter Summary ---
Author Organization [facility] Address [address] [place] [address]. [place], [place] [id number] [place] [address] Care Team Providers Care Solid Surface Fabricator Name Role Phone Mery Maxwell MD Primary Care Provider [phone] Reason for Referral * (Routine) - New Request Specialty Diagnoses / Procedures Referred By Contac t Referred To Contact Procedures OT eval and treat [facility] Med/Surg 5th [place] [address] Phone: tel: Referral ID Status Reason Start Date Expiration Date V isits Requested Visits Authorized [id number] New Request 01/01/2024 12/31/2024 1 1 * (Routine) - Canceled Specialty Diagnoses / Procedures Referred By Contac t Referred To Contact Procedures PT eval and treat Viviane Lim PA-C Phone: tel: fax: Referral ID Status Reason Start Date Expiration Date V isits Requested Visits Authorized [id number] Canceled 12/31/2023 12/30/2024 1 1 Reason for Visit * Auth/Cert (Routine) Specialty Diagnoses / Procedures Referred By Contac t Referred To Contact Diagnoses Hypotension Postural dizziness with presyncope PRESYNCOPE Procedures N/A Jacklyn Mena MD [address] [place] [address] Phone: tel: fax: Referral ID Status Reason Start Date Expiration Date Visits Re quested Visits Authorized [id number] 1 1 Encounter Details Date Type Department Care Team (Late st Contact Info) Description 12/31/2023 10:07 PM CDT - 01/02/2024 7:27 PM CDT Hospital Encounter [facility] Med/Surg 5th [place] [address] Jacklyn Mena MD [address] [place], [place] [id number] Tomy Brooke MD [address] [place], [place] [address] [phone] (Work) Nichol Cox, SEAN [address] [place], [place] [address]39 [phone] (Work) Viviane Lim PA-C [address] [place] [phone] Discharge Disposition: Home with Home Health Care Social History Tobacco Use Types Packs/Day Years Used Date Smoking Tobacco: Former Cigarettes Smokeless Tobacco: Never Alcohol Use Standard Drinks/Week Comments Not Currently 0 (1 standard drink = 0.6 oz pur e alcohol) [facility] Utilities Answer Date Recorded In the past 12 months has [email or web address], gas, oil, or water [employer] threatened to shut off services in your [...] the past 12 m [facility], were you homeless or living in a mcfp (including now)? No 01/01/2024 Sex and Gender [...] CHF, CAD, anemia, [facility]. Patient states while he [...] mcg total) by mouth every other day. [facility] 08/03/2023 02/26/2024 carvedilol (COREG) [...] gave ETA of 7pm, their number is [phone]. Trip # [id number]. Please let the patient know. DELMAR leaves at 15:30. * Josi De Oliveira Dmitri, WOODS LABORER - 01/02/2024 2:56 PM CDT 01/02/24 1446 [...] Home Equipment Wheelchair-manual Prior Function Level of [place] Independent with functional transfers;Independent with ambulation;Needs assistance [...] aware of session Interdisciplinary Collaboration RN, PT [facility] AM-PAC Daily Activity Please check the box [...] Minimum/Contact Guard Assist/Supervision 4. None = Modified [place]/Independent Raw score=21 Functional impairments-33% * Zakiya Rocha [...] living with his sister. He moved from [place] after hospitalization earlier this year. States he [...] Home Equipment Wheelchair-manual Prior Function Level of [place] Independent with functional transfers;Independent with ADLs Device used at baseline Wheelchair-manual Baseline Ambulation Distance/Assistance non-ambulatory Fall History No Lives With Family (sister and ojsmavg-ix-usf) Receives Help From Family Pain Pain Patient [...] Situation Family members (lives with sister and rhrbhik-tf-mua) Type of Residence Private residence Support System Immediate family Are you employed? Disabled Baseline ADL's Functional Status Moderate assistance Active DME Wheelchair Behavior Oriented;Cooperative Communication Understands Montenegrin;Understands speaking;Talks DC screening tool This is a [...] patient's name and : Support: sister and mbdrzoh-vi-kwc Home: lives with his sister and rqtzznu-rx-svk Ambulation: Reports wheelchair bound, states he transfers with assist to wheelchair DME products: wheelchair DIALYSIS: attends dialysis at [facility] in [place] on ,Sat chair time 11am. This CM [...] current, gave return number Occupation: disabled Pharmacy: [facility] Concerns: No financial concerns reported [facility] Discharge needs: RNCM will follow case daily and will continuously evaluate discharge needs based on recommendations and treatment course. 10:25 CM received call from Kennedi at [facility] stating patient is current with them for home nursing and PT.CM will fax H&P to [facility].They will resume care at discharge. Kennedi's direct number is [phone]. If patient discharges over this weekend, CM can call Bailey at [phone]. 11:43 CM phoned patient's sister Viral to [...] 12/31/23 currently admitted as a transfer from [facility] for near syncope .Prolonged QT In [...] and falls. He sees Dr. Ng with [facility] Review of Systems Constitutional: Positive for malaise/fatigue. [...] VIRAL BRICE [employer] Relation: Sister Preferred language: Montenegrin [employer] Worker needed? No Cosigned by Keiko Finn MD [...] CHF, CAD, anemia, presents as transfer from [facility] for near syncope. Patient states while [...] - Unmet Transportation Needs (06/14/2023) Received from [facility] OASIS A1250: Transportation Lack of Transportation (Medical): No Lack of Transportation (Non-Medical): Yes Patient Unable or Declines to Respond: No Social Connections: Feeling Socially Integrated (06/14/2023) Received from [facility] OASIS D0700: Social Isolation Frequency of experiencing [...] input(s): PH , PCO2 , PO2 , [id number] , BICARBWB , BASEDEFICIT , BASEEXCESS in [...] for this patient. Patient seen and examined. 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 This is a 53-year-old male who presented to outside hospital with hypotension after dialysis. Improved without intervention. Currently feels well withoutcomplaints General: Alert. No acute distress CV: Regular [...] his outpatient HD yesterday then presented to [facility] for near syncope with hypotension. 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[facility]) Renal disorder Allergies: Allergies Allergen Reactions Amoxicillin [...] Viviane Redzic, PA-C 100 mg at 01/01/24 0802 amiodarone (PACERONE) tablet 200 mg 200 mg Oral Daily Viviane Redzic, PA-C 200 mg at 01/01/24 0803 apixaban (ELIQUIS) tablet 5 mg 5 mg Oral BID Vivaine Redzic, PA-C 5 mg at 01/01/24 08 atorvastatin (LIPITOR) tablet 20 mg 20 mg Oral Q24H Viviane Redzic, PA-C 20 mg at 01/01/24 0803 [START ON 01/02/2024] calcitriol (ROCALTROL) capsule 0.25 mcg 0.25 mcg Oral Once per day on Thursday Vivianemalik Barrazac, PA-C carvedilol (COREG) tablet 25 mg 25 mg Oral BID Viviane Redzic, PA-C 25 mg at 01/01/24 0802 fluticasone propionate (FLONASE) 50 MCG/ACT nasal spray 1 spray 1 spray Nasal Daily Viviane Redinezc, PA-C gabapentin (NEURONTIN) capsule 100 mg 100 mg Oral BID Viviane Redzic, PA-C 100 mg at 01/01/24 0803 hydrALAZINE (APRESOLINE) injection 10 mg 10 mg Intravenous Q6H PRN Viviane Redinezc, PA-C 10 mg at 12/31/23 2248 insulin glargine (LANTUS) injection 10 Units 10 Units Subcutaneous Nightly at bedtime Viviane Madic,PA-C 10 Units at 01/01/24 0059 insulin lispro (HUMALOG) injection 0-14 Units 0-14 Units Subcutaneous TID AC Viviane Madic, PA-C 2 Units at 01/01/24 0803 And [...] st Contact Info) Description 07/20/2024 10:30 AM GROUND CREWMAN AIRCRAFT SUPPORT Office Visit [facility] [place] [address] Martha Ramirez, [facility]-[address] [address] documented as of this encounter [...] - 99 mg/dL 01/02/2024 4:38 PM CDT [facility] 01/02/2024 4:37 PM CDT Viviane Redinezc PA-C POCT ORDERABLES - DEVICE Final Result Performing Organization Address [facility] Co de Phone Number [facility] [address] [place] [address], [place] [phone] * (ABNORMAL) POCT glucose (01/02/2024 1:35 PM CDT) GLUCOSE POC 104(H) 70 - 99 mg/dL 01/02/2024 1:36 PM CDT [facility] 01/02/2024 1:35 PM CDT Viviane Redzic PA-C POCT ORDERABLES - DEVICE Final Result Performing Organization Address City/[facility]/ZIP Co de Phone Number [facility] [address] [place] [address], [place] [phone] * (ABNORMAL) BASIC METABOLIC PANEL (01/02/2024 9:00 AM CDT) GLUCOSE 186(H) 70 - 99 MG/DL 01/02/2024 9:51 AM CDT [facility] BUN 56(H) 7 - 18 MG/DL 01/02/2024 9:51 AM CDT [facility] CREATININE S/P/B 5.83(HH) 0.7 - 1.3 MG/DL 01/02/2024 9:51 AM CDT [facility] Comment: Critical Result(s) Called at: 09:50:04 on 01/02/2024 by: YAJAIRA CASAS to and read back by:MARIUSZ LAWRENCE SODIUM S/P/B 132(L) 136 - 145 MMOL/L 01/02/2024 9:51 AM CDT [facility] POTASSIUM S/P/B 3.4(L) 3.5 - 5.1 MMOL/L 01/02/2024 9:51 AM CDT [facility] CHLORIDE S/P/B 97(L) 100 - 108 MMOL/L 01/02/2024 9:51 AM CDT [facility] CO2 27.9 21 - 32 MMOL/L 01/02/2024 9:51 AM T [facility] CALCIUM S/P/B 9.9 8.5 - 10.1 MG/DL 01/02/2024 9:51 AM T [facility] ANION GAP 7.1 5 - 15 MMOL/L 01/02/2024 9:51 AM T [facility] BUN CREATININE RATIO 9.6 6 - 26 01/02/2024 9:51 AM T [facility] GFR ESTIMATE 11(L) >90 ML/MIN/1.7 3 M2 01/02/2024 9:51 AM T [facility] Comment: NOTE: eGFR is not calculated for patients <18 years of age. This is an estimated GFR calculation using the new CKD EPI creatinine equation without race and so does not require a correction factor for race. This estimated GFR should not be used for calculating drug doses. 01/02/2024 9:00 AM CDT Viviane Lim PA-C LABORATORY Final Result [facility] [address] [place] [address], * (ABNORMAL) CBC W/DIFF AUTOMATED (01/02/2024 9:00 AM CDT) WBC 7.25 4.5 - 11.0 x10'3/uL 01/02/2024 9:26 AM CDT [facility] RBC 3.72(L) 4.70 - 6.10 x10'6/uL 01/02/2024 9:26 AM CDT [facility] HGB 12.2(L) 14.0 - 18.0 G/DL 01/02/2024 9:26 AM CDT [facility] HCT 37.0(L) 43.0 - 54.0 % 01/02/2024 9:26 AM CDT [facility] MCV 99.5(H) 80.0 - 94.0 FL 01/02/2024 9:26 AM CDT [facility] MCH 32.8(H) 27.0 - 31.0 PG 01/02/2024 9:26 AM CDT [facility] MCHC 33.0 32.0 - 36.0 G/DL 01/02/2024 9:26 AM CDT [facility] RDW 13.1 11.5 - 14.5 % 01/02/2024 9:26 AM CDT [facility] PLT 212 130 - 400 x10'3/uL 01/02/2024 9:26 AM CDT [facility] MPV 10.1 9.3 - 12.2 FL 01/02/2024 9:26 AM CDT [facility] DIFFERENTIAL TYPE AUTOMATED DIFFERENTIAL 01/02/2024 9:26 AM CDT [facility] NEUTROPHILS % 65.8 % 01/02/2024 9:26 AM CDT [facility] LYMPHOCYTES % 24.4 % 01/02/2024 9:26 AM CDT [facility] MONOCYTES % 5.7 % 01/02/2024 9:26 AM CDT [facility] EOSINOPHILS 2.6 % 01/02/2024 9:26 AM CDT [facility] BASOPHILS 0.7 % 01/02/2024 9:26 AM CDT [facility] IMMATURE GRANS % 0.8 % 01/02/20 9:26 AM CDT [facility] ABS. NEUTROPHILS 4.77 1.80 - 7.70 x10'3/uL 01/02/2024 9:26 AM CDT [facility] ABS. LYMPHOCYTES 1.77 1.00 - 4.80 x10'3/uL 01/02/2024 9:26 AM CDT [facility] ABS. MONOCYTES 0.41 0.30 - 0.82 x10'3/uL 01/02/2024 9:26 AM CDT [facility] ABS. EOSINOPHILS 0.19 0.04 - 0.54 x10'3/uL 01/02/2024 9:26 AM CDT [facility] ABS. BASOPHILS 0.05 0.01 - 0.08 x10'3/uL 01/02/2024 9:26 AM CDT [facility] ABS. IMMATURE GRANULOCYTES 0.06 0.00 - 0.49 x10'3/uL 01/02/2024 9:26 AM T [facility] 01/02/2024 9:00 AM CDT Viviane Lim PA-C LABORATORY Final Result Performing Organization Address City/[facility]/ZIP Co de Phone Number [facility] [address] [place] [address], [place] [phone] * HEPATITIS B SURFACE ANTIBODY (01/02/2024 9:00 AM CDT) HEP B SURFACE AB NON-REACTI VE 01/02/2024 9:47 AM CDT [facility] 01/02/2024 9:00 AM CDT Em Chu MD LABORATORY Final Result Performing Organization Address City/[facility]/ZIP Co de Phone Number [facility] [address] [place] [address], [place] [phone] * HEPATITIS B SURFACE AG, EIA (01/02/2024 9:00 AM CDT) HEPATITIS B SURFACE AG NON-REACTI VE NON-REACTI VE 01/02/2024 9:57 AM CDT [facility] 01/02/2024 9:00 AM CDT Em Chu MD LABORATORY Final Result Performing Organization Address City/[facility]/ZIP Co de Phone Number [facility] [address] [place] [address], [place] [phone] * (ABNORMAL) POCT glucose (01/02/2024 5:02 AM CDT) GLUCOSE POC 138(H) 70 - 99 mg/dL 01/02/2024 5:04 AM CDT [facility] 01/02/2024 5:02 AM CDT Nichol Cox MOBILE LOUNGE DRIVER OR OPERATOR POCT ORDERABLES - DEVICE F inal Result Performing Organization Address City/[facility]/ZIP Co de Phone Number [facility] [address] [place] [address], [place] [phone] * (ABNORMAL) POCT glucose (01/01/2024 8:22 PM CDT) GLUCOSE POC 174(H) 70 - 99 mg/dL 01/01/2024 8:24 PM CDT [facility] 01/01/2024 8:22 PM CDT Nichol Cox MOBILE LOUNGE DRIVER OR OPERATOR POCT ORDERABLES - DEVICE F inal Result Performing Organization Address [facility] Co de Phone Number [facility] [address] [place] [address], [place] [phone] * (ABNORMAL) POCT glucose (01/01/2024 3:23 PM CDT) GLUCOSE POC 187(H) 70 - 99 mg/dL 01/01/2024 4:04 PM CDT [facility] 01/01/2024 3:23 PM CDT Nichol Cox MOBILE LOUNGE DRIVER OR OPERATOR POCT ORDERABLES - DEVICE F inal Result Performing Organization Address City/[facility]/ZIP Co de Phone Number [facility] [address] [place] [address], [place] [phone] * (ABNORMAL) POCT glucose (01/01/2024 11:11 AM CDT) GLUCOSE POC 191(H) 70 - 99 mg/dL 01/01/2024 11:25 AM CDT [facility] 01/01/2024 11:1 1 AM CDT Nichol Cox MOBILE LOUNGE DRIVER OR OPERATOR POCT ORDERABLES - DEVICE F inal Result Performing Organization Address City/[facility] Co de Phone Number [facility] [address] [place] [address], * (ABNORMAL) POCT glucose (01/01/2024 6:21 AM CDT) GLUCOSE POC 172(H) 70 - 99 mg/dL 01/01/2024 6:23 AM CDT [facility] 01/01/2024 6:21 AM CDT Nichol Cox MOBILE LOUNGE DRIVER OR OPERATOR POCT ORDERABLES - DEVICE F inal Result Performing Organization Address [facility] Co de Phone Number [facility] [address] [place] [address], * THYROID STIM HORMONE, TSH (01/01/2024 5:12 AM CDT) TSH 1.940 0.358 - 3.74 uIU/ML 01/01/2024 5:56 AM CDT [facility] Comment: HIGH DOSES OF BIOTIN MAY INTERFERE WITH THIS TEST RESULT. CORRELATION TO CLINICAL HISTORY AND PRESENTATION RECOMMENDED. 01/01/2024 5:12 AM CDT Viviane iLm PA-C LABORATORY Final Result Performing Organization Address City/[facility]/ZIP Co de Phone Number [facility] [address] [place] [address], [place] [phone] * MAGNESIUM (01/01/2024 5:12 AM CDT) MAGNESIUM 2.3 1.8 - 2.4 MG/DL 01/01/2024 5:56 AM CDT [facility] 01/01/2024 5:12 AM CDT Viviane Lim PA-C LABORATORY Final Result [facility] [address] [place] [address], [place] [phone] * (ABNORMAL) COMPREHENSIVE METABOLIC PANEL (01/01/2024 5:12 AM CDT) GLUCOSE 182(H) 70 - 99 MG/DL 01/01/2024 5:56 AM CDT [facility] BUN 38(H) 7 - 18 MG/DL 01/01/2024 5:56 AM CDT [facility] CREATININE S/P/B 4.56(H) 0.7 - 1.3 MG/DL 01/01/2024 5:56 AM CDT [facility] SODIUM S/P/B 135(L) 136 - 145 MMOL/L 01/01/2024 5:56 AM CDT [facility] POTASSIUM S/P/B 3.5 3.5 - 5.1 MMOL/L 01/01/2024 5:56 AM CDT [facility] CHLORIDE S/P/B 100 100 - 108 MMOL/L 01/01/2024 5:56 AM CDT [facility] CO2 29.5 21 - 32 MMOL/L 01/01/2024 5:56 AM CDT [facility] CALCIUM S/P/B 9.2 8.5 - 10.1 MG/DL 01/01/2024 5:56 AM CDT [facility] BILIRUBIN TOTAL S/P/B 0.5 0.2 - 1.2 MG/DL 01/01/2024 5:56 AM T [facility] Comment: THIS ASSAY IS NOT RECOMMENDED FOR PATIENTS UNDERGOING TREATMENT WITH ELTROMBOPAG DUE TO THE POTENTIAL FOR FALSELY ELEVATED RESULTS. TOTAL PROTEIN S/P/B 7.7 6.4 - 8.2 G/DL 01/01/2024 5:56 AM T [facility] ALBUMIN S/P/B 3.2(L) 3.4 - 5.0 G/DL 01/01/2024 5:56 AM T [facility] AST 10(L) 15 - 37 U/L 01/01/2024 5:56 AM T [facility] ALT 15(L) 16 - 60 U/L 01/01/2024 5:56 AM T [facility] ALKALINE PHOSPHATASE S/P/B 51 50 - 136 U/L 01/01/2024 5:56 AM T [facility] ANION GAP 5.5 5 - 15 MMOL/L 01/01/2024 5:56 AM T [facility] BUN CREATININE RATIO 8.3 6 - 26 01/01/2024 5:56 AM [facility] A/G RATIO 0.7(L) 1.0 - 2.0 RATIO 01/01/2024 5:56 AM T [facility] GFR ESTIMATE 15(L) >90 ML/MIN/1.7 3 M2 01/01/2024 5:56 AM T [facility] Comment: NOTE: eGFR is not calculated for patients <18 years of age. This is an estimated GFR calculation using the new CKD EPI creatinine equation without race and so does not require a correction factor for race. This estimated GFR should not be used for calculating drug doses. 01/01/2024 5:12 AM CDT Viviane Lim PA-C LABORATORY Final Result [facility] [address] [place] [address], [place] [phone] * (ABNORMAL) CBC W/DIFF AUTOMATED (01/01/2024 5:12 AM CDT) WBC 7.23 4.5 - 11.0 x10'3/uL 01/01/2024 5:26 AM CDT [facility] RBC 3.47(L) 4.70 - 6.10 x10'6/uL 01/01/2024 5:26 AM CDT [facility] HGB 11.3(L) 14.0 - 18.0 G/DL 01/01/2024 5:26 AM CDT [facility] HCT 34.5(L) 43.0 - 54.0 % 01/01/2024 5:26 AM CDT [facility] MCV 99.4(H) 80.0 - 94.0 FL 01/01/2024 5:26 AM CDT [facility] MCH 32.6(H) 27.0 - 31.0 PG 01/01/2024 5:26 AM CDT [facility] MCHC 32.8 32.0 - 36.0 G/DL 01/01/2024 5:26 AM CDT [facility] RDW 13.1 11.5 - 14.5 % 01/01/2024 5:26 AM CDT [facility] PLT 191 130 - 400 x10'3/uL 01/01/2024 5:26 AM CDT [facility] MPV 10.0 9.3 - 12.2 FL 01/01/2024 5:26 AM CDT [facility] DIFFERENTIAL TYPE AUTOMATED DIFFERENTIAL 01/01/2024 5:26 AM CDT [facility] NEUTROPHILS % 61.9 % 01/01/2024 5:26 AM CDT [facility] LYMPHOCYTES % 27.7 % 01/01/2024 5:26 AM CDT [facility] MONOCYTES % 6.9 % 01/01/2024 5:26 AM CDT [facility] EOSINOPHILS 2.1 % 01/01/2024 5:26 AM CDT [facility] BASOPHILS 0.8 % 01/01/2024 5:26 AM CDT [facility] IMMATURE GRANS % 0.6 % 01/01/20 5:26 AM CDT [facility] ABS. NEUTROPHILS 4.48 1.80 - 7.70 x10'3/uL 01/01/2024 5:26 AM CDT [facility] ABS. LYMPHOCYTES 2.00 1.00 - 4.80 x10'3/uL 01/01/2024 5:26 AM CDT [facility] ABS. MONOCYTES 0.50 0.30 - 0.82 x10'3/uL 01/01/2024 5:26 AM CDT [facility] ABS. EOSINOPHILS 0.15 0.04 - 0.54 x10'3/uL 01/01/2024 5:26 AM CDT [facility] ABS. BASOPHILS 0.06 0.01 - 0.08 x10'3/uL 01/01/2024 5:26 AM CDT [facility] ABS. IMMATURE GRANULOCYTES 0.04 0.00 - 0.49 x10'3/uL 01/01/2024 5:26 AM T [facility] 01/01/2024 5:12 AM CDT Viviane Redzic PA-C LABORATORY Final Result Performing Organization Address [facility]/ZIP Co de Phone Number [facility] [address] [place] [phone], * TROPONIN, QUANT (12/31/2023 11:09 PM CDT) TROPONIN I HIGH SENSITIVITY 11 <79 ng/L 01/01/2024 12:38 AM CDT [facility] Comment: HIGH DOSES OF BIOTIN, TROPONIN-SPECIFIC AUTOANTIBODIES, AND ANTIBODY THERAPY CONTAINING HAMA MAY INTERFERE WITH THIS TEST RESULT. CORRELATION TO CLINICAL HISTORY AND PRESENTATION RECOMMENDED. 12/31/2023 11:0 9 PM CDT Viviane Redinezc PA-C LABORATORY Final Result Performing Organization Address [facility]/ZIP Co de Phone Number [facility] [address] [place] [phone], * ECG 12 lead (12/31/2023 11:01 PM CDT) 12/31/2023 11:0 1 PM CDT Narrative [facility] - 01/01/2024 6:03 PM CDT ?[facility] ? [address] [place] ? Test Date: ?2023-12-31 Pat Name: ? VINAY WILBURN ?Department: ?? 40 ? Room: ? A502 Gender: ? Male ? Applications Sales Representative: ?? VB : ?1970 ? Requested By: VIVIANE LIM Order Number: [id number] ? Reading MD: ?? Shiyam Satwani ? Measurements Intervals ?[place] ? Rate: ? 60 ? P: ?23 TN: ? 208 ?QRS: ?-15 QRSD: ? 118 ?T: ?9 QT: ? 362 ? QTc: ?362 ? Interpretive Statements SINUS RHYTHM NONSPECIFIC T-WAVE ABNORMALITY Compared to ECG 12/31/2023 18:05:24 Intraventricular conduction delay now present T-wave abnormality now present Prolonged QT interval no longer present Procedure Note Lizzeth Castaneda MD - 01/01/[address] Test Date: 2023-12-31 Pat Name: VINAY WILBURN Department: 40 Room: [facility] Gender: Male Applications Sales Representative: MOE : 1970 Requested By: VIVIANE LIM Order Number: [id number] Reading MD: Lizzeth Castaneda Measurements Intervals [place] Rate: 60 P: 23 TN: 208 QRS: -15 QRSD: 118 T: 9 QT: 362 QTc: 362 Interpretive Statements SINUS RHYTHM NONSPECIFIC T-WAVE ABNORMALITY Compared to ECG 12/31/2023 18:05:24 Intraventricular conduction delay now present T-wave abnormality now present Prolonged QT interval no longer present us Viviane Lim PA-C ECG ORDERABLES Final Result Performing Organization Address City/[facility]/ZIP Co de Phone Number [facility] (HERO) RAD * (ABNORMAL) POCT glucose (12/31/2023 10:25 PM CDT) GLUCOSE POC 206(H) 70 - 99 mg/dL 01/01/2024 12:20 AM CDT [facility] 12/31/2023 10:2 5 PM CDT us Tomy Brooke MD POCT ORDERABLES - DEVICE Final Result Performing Organization Address City/[facility]/ZIP Co de Phone Number [facility] [address] [place] [address], [place] [phone] documented in this encounter Visit Diagnoses Diagnosis [...] Jim RN)08 (Given - Provider: Naima Vaughn RN)2025 (Given - Provider: Oly Lama RN) 0856 (Given - Provider: Maksim Pulido RN)2100 (Canceled Entry - Provider: Automatic Discharge Provider - Comment: Automatically canceled at discontinue of medication order) atorvastatin (LIPITOR) tablet 20 mg 20 mg, Oral, Every 24 hours, First dose on Thu01/01/24 at 0900, Until Discontinued 0803 (Given - Provider: Naima Vaughn RN) 0856 (Given - Provider: Maksim Pulido RN) calcitriol (ROCALTROL) capsule 0.25 mcg 0.25 mcg, Oral, Three times weekly (Once per day on Thursday), First dose on Thu01/02/24 at 0900, Until Discontinued, --THU 09 (Given - Provid er: Maksim Pulido RN) [...] Discontinued 005 (Given - Provider: Kathy Jim RN)2026 (Given - Provider: Oly Lama RN) 2100 [...] RN) 0823 (Not Given - Provider: Maksim Pulido RN - Reason: Order parameters not met)1336 [...] 0856 (Given - Provider: Maksim Pulido RN) sevelamer carbonate (RENVELA) tablet 1,600 mg 1,600 [...] Physician] documented in this encounter Care Teams Solid Surface Fabricator Relationship Specialty Start Date End Date Mery Maxwell MD [address] [place] [phone] PCP - General FAMILY PRACTICE 08/19/23 documented as of this encounter
--- OUTSIDE RECORDS SUMMARY | 2024-06-22 19:03 | XMS_ITS | Encounter Summary ---
Author Organization [facility] Address [address] [place] [address]. [place] [address] [place] [address] Care Team Providers Care Lean Engineer Name Role Phone Mery Maxwell MD Primary Care Provider [phone]- [phone] Reason for Referral * Imaging (Emergency) - New Request Specialty Diagnoses / Procedures Referred By Flako cardoso Referred To Contact RADIOLOGY Procedures CT HEAD WO CON Wale Alberto MD [address] [place] [address] Phone: tel: fax: Referral ID Status Reason Start Date Expiration Date V isits Requested Visits Authorized [id number] New Request 09/01/2023 08/31/2024 1 1 Reason for Visit * Reason Comments Medical Problem Encounter Details Date Type Department Care Team (Late st Contact Info) Description 09/01/2023 3:35 PM CDT - 09/01/2023 9:05 PM CDT [facility] [address] [facility] [place] [address] Wale Alberto MD [address] [place] [address] Medical Problem Discharge Disposition: Home or Self Care (Routine Discharge) Social History Tobacco Use Types Packs/Day Years Used Date Smoking Tobacco: Former Cigarettes Smokeless Tobacco: Never Alcohol Use Standard Drinks/Week Comments Not Currently 0 (1 standard drink = 0.6 oz pur e alcohol) [facility] Utilities Answer Date Recorded In the past 12 months has th e [employer], gas, oil, or water company threatened to [...] long term (including now)? Patient declined 09/01/2023 Sex and [...] HISTORY: Past Medical History: Diagnosis Date A-fib ([facility]) Constipation Diabetes mellitus ([facility]) ESRD (end stage renal disease) ([facility]) GERD (gastroesophageal reflux disease) Gout, unspecified High cholesterol Neuropathy 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[facility]) PAST SURGICAL HISTORY: Past Surgical History: [...] encounter of 09/01/23 ECG [address] [place] [address] Test Date: 2023-09-01 Pat Name: VINAY WILBURN Department: 3 Room: EXAM 606 Gender: Male 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 6 PM [facility] called. Patient got potassium 80 mEq p.o., [...] st Contact Info) Description 07/20/2024 10:30 AM SECTION WEAVER Office Visit [facility] [place] [phone] Martha Ramirez, [facility]- [address] [place] [address] documented as of this encounter Procedures Procedure [...] Alberto MD - 09/01/2023 6:49 PM CDT Wlae Alberto MD ? 09/02/2023 ??2:42 AM EKG Reading Date/Time: 09/01/2023 6:49 PM Performed by: Wale Alberto MD Authorized by: Wale Alberto MD ??Interpreted by ED physician: no specific st-t changed. Rhythm: sinus bradycardia Rate: bradycardic Clinical impression: abnormal ECG Comments: Increased QT interval compared to previous EKGs us Wale Alberto MD [place] [facility] Final Result * [...] PM CDT) 09/01/2023 4:28 PM CDT Narrative [facility] - 09/01/2023 4:43 PM CDT ? [facility] ?[address] [place], [place] ??[address] ? Test Date: ?2023-09-01 Pat Name: ? VINAY WILBURN ?Department: ?? 3 ? Room: ? EXAM 606 Gender: ? Male ? Vegetable Picker: ?? : ?1970 ? Requested By: WALE ALBERTO Order Number: [id number] ? Reading MD: ?? Gonzalo Pardo ? Measurements Intervals ?[place] ? Rate: ? 59 ? P: ?66 ND: ? 189 ?QRS: ?-29 QRSD: ? 104 ?T: ?48 QT: ? 489 ? QTc: ?487 ? Interpretive Statements SINUS BRADYCARDIA BORDERLINE LEFT AXIS DEVIATION NONSPECIFIC T-WAVE ABNORMALITY PROLONGED QT INTERVAL Procedure Note Gonzalo Pardo MD - 09/01/[address] 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1970 Requested By: WALE ALBERTO Order Number: [id number] Reading MD: Gonzalo Pardo Measurements Intervals [place] Rate: 59 P: 66 ND: 189 QRS: -29 QRSD: 104 T: 48 QT: 489 QTc: 487 Interpretive Statements SINUS BRADYCARDIA BORDERLINE LEFT AXIS DEVIATION NONSPECIFIC T-WAVE ABNORMALITY PROLONGED QT INTERVAL Wale Alberto MD ECG ORDERABLES Final Result [facility] * (ABNORMAL) MAGNESIUM (09/01/2023 4:19 PM CDT) MAGNESIUM 1.7(L) 1.8 - 2.4 MG/DL 09/01/2023 5:20 PM CDT [facility] 09/01/2023 4:19 PM CDT Wale Alberto MD LABORATORY Final Result Performing Organization Address [facility] Co de Phone Number [facility] [address] [place] [address], * (ABNORMAL) PRO-BRAIN NATRIURETIC PEPTIDE (09/01/2023 4:19 PM CDT) PRO-B TYPE NATRIURETIC PEPTIDE 10,664(H) <125 PG/ML 09/01/2023 4:51 PM CDT [facility] Comment: CUT POINTS ESTABLISHED BY INTERNATIONAL [...] MD LABORATORY Final Result Performing Organization Address [facility]/ZIP Co de Phone Number [facility] [address] [place] [address], [place] [phone] * (ABNORMAL) PROTIME/INR, VENOUS (09/01/2023 4:19 PM CDT) PROTIME 20.8(H) 9.4 - 12.5 SEC 09/01/2023 4:31 PM CDT [facility] INR 1.8(H) 0.8 - 1.0 09/01/2023 4:31 PM CDT [facility] 09/01/2023 4:19 PM CDT us Wale Alberto MD LABORATORY Final Result Performing Organization Address [facility] Co de Phone Number [facility] [address] [place] [address], [place] [phone] * TROPONIN, QUANT (09/01/2023 4:19 PM CDT) TROPONIN I HIGH SENSITIVITY 13 0 - 76 ng/L 09/01/2023 4:51 PM CDT [facility] 09/01/2023 4:19 PM CDT us Wale Alberto MD LABORATORY Final Result Performing Organization Address [facility] Co de Phone Number [facility] [address] [place] [address], [place] [phone] * (ABNORMAL) COMPREHENSIVE METABOLIC PANEL (09/01/2023 4:19 PM CDT) SODIUM S/P/B 136 136 - 145 MMOL/L 09/01/2023 4:51 PM CDT [facility] POTASSIUM S/P/B 2.7(LL) 3.5 - 5.1 MMOL/L 09/01/2023 4:52 PM CDT [facility] Comment: Critical Result(s) Called to and read back by: SVETA REES ER ?at: 16:51:26 ?? 09/01/2023 by NANI. CHLORIDE S/P/B 95(L) 98 - 107 MMOL/L 09/01/2023 4:51 PM CDT [facility] CO2 31.0 21.0 - 32.0 MMOL/L 09/01/2023 4:51 PM CDT [facility] GLUCOSE 155(H) 70 - 99 MG/DL 09/01/2023 4:51 PM CDT [facility] Comment: FASTING GLUCOSE 100 TO 125 MG/DL IS CONSISTENT WITH IMPAIRED FASTING GLUCOSE. FASTING GLUCOSE >125 MG/DL IS CONSISTENT WITH DIABETES. RANDOM GLUCOSE >200 MG/DL WITH HYPERGLYCEMIC SYMPTOMS IS CONSISTENT WITH DIABETES. PER ADA GUIDELINES BUN 27(H) 6 - 24 MG/DL 09/01/2023 4:51 PM CDT [facility] CREATININE S/P/B 3.09(H) 0.70 - 1.30 MG/DL 09/01/2023 4:51 PM CDT [facility] CALCIUM S/P/B 9.3 8.4 - 10.5 MG/DL 09/01/2023 4:51 PM CDT [facility] BILIRUBIN TOTAL S/P/B 0.6 0.2 - 1.0 MG/DL 09/01/2023 4:51 PM CDT [facility] Comment: THIS ASSAY IS NOT RECOMMENDED FOR PATIENTS UNDERGOING TREATMENT WITH ELTROMBOPAG DUE TO THE POTENTIAL FOR FALSELY ELEVATED RESULTS. ALKALINE PHOSPHATASE S/P/B 55 45 - 115 U/L 09/01/2023 4:51 PM CDT [facility] AST 12(L) 15 - 37 U/L 09/01/2023 4:51 PM CDT [facility] ALT 12(L) 16 - 63 U/L 09/01/2023 4:51 PM CDT [facility] TOTAL PROTEIN S/P/B 8.8(H) 6.4 - 8.2 G/DL 09/01/2023 4:51 PM CDT [facility] ALBUMIN S/P/B 3.8 3.4 - 5.0 G/DL 09/01/2023 4:51 PM CDT [facility] ANION GAP 10.0 5.0 - 15.0 MMOL/L 09/01/2023 4:51 PM CDT [facility] OSMOLALITY (CALC) 290 MOSM/KG 024 4:51 PM CDT [facility] Comment:REFERENCE RANGE NOT ESTABLISHED GFR ESTIMATE 24(L) >89 ML/MIN/1. 73 M2 09/01/2023 4:51 PM CDT [facility] GFR NOTES GFR REFERENCE S: 09/01/2023 4:51 PM CDT [facility] Comment: THE ESTIMATED GFR IS CALCULATED [...] CDT Wale Alberto MD LABORATORY Final Result [facility] [address] [employer] [place] [address], * (ABNORMAL) CBC W/DIFF AUTOMATED (09/01/2023 4:19 PM CDT) WBC 8.39 4.00 - 10.80 x10'3/uL 09/01/2023 4:29 PM CDT [facility] RBC 3.76(L) 4.50 - 6.10 x10'6/uL 09/01/2023 4:29 PM CDT [facility] HGB 12.3(L) 13.0 - 18.0 G/DL 09/01/2023 4:29 PM CDT [facility] HCT 37.7 37.0 - 52.0 % 09/01/2023 4:29 PM CDT [facility] MCV 100.3(H) 78.0 - 100.0 FL 09/01/2023 4:29 PM CDT [facility] MCH 32.7(H) 27.0 - 31.0 PG 09/01/2023 4:29 PM CDT [facility] MCHC 32.6(L) 33.0 - 36.0 G/DL 09/01/2023 4:29 PM CDT [facility] RDW 14.3 11.5 - 14.5 % 09/01/2023 4:29 PM CDT [facility] PLT 285 150 - 350 x10'3/uL 09/01/2023 4:29 PM CDT [facility] MPV 9.4 7.4 - 10.4 FL 09/01/2023 4:29 PM CDT [facility] CBC COMMENT NORMAL REFERENCE RANGE NOT ESTABLISHED FOR THE PROPORTIONAL LEUKOCYTE DIFFERENTIAL. 09/01/2023 4:29 PM CDT [facility] NEUTROPHILS % 70.3 % 09/01/2023 4:29 PM CDT [facility] LYMPHOCYTES % 17.9 % 09/01/2023 4:29 PM CDT [facility] MONOCYTES % 5.4 % 09/01/2023 4:29 PM CDT [facility] EOSINOPHILS % 4.6 % 09/01/2023 4:29 PM CDT [facility] BASOPHILS % 1.2 % 09/01/2023 4:29 PM CDT [facility] IMMATURE GRANS % 0.6 % 09/01/19 4:29 PM CDT [facility] NRBC 0.0 % 09/01/2023 4:29 PM CDT [facility] ABS. NEUTROPHILS 5.90 1.60 - 8.30 x10'3/uL 09/01/2023 4:29 PM CDT [facility] ABS. LYMPHOCYTES 1.50 0.80 - 4.70 x10'3/uL 09/01/2023 4:29 PM CDT [facility] ABS. MONOCYTES 0.45 0.00 - 1.50 x10'3/uL 09/01/2023 4:29 PM CDT [facility] ABS. EOSINOPHILS 0.39 0.00 - 0.40 x10'3/uL 09/01/2023 4:29 PM CDT [facility] ABS. BASOPHILS 0.10 0.00 - 0.20 x10'3/uL 09/01/2023 4:29 PM CDT [facility] ABS. IMMATURE GRANULOCYTES 0.05(H) 0.00 - 0.03 x10'3/uL 09/01/2023 4:29 PM CDT [facility] ABS. NUCLEATED RBC'S 0.00 0.00 x10'3/uL 09/01/2023 4:29 PM CDT [facility] 09/01/2023 4:19 PM CDT Wale Alberto MD LABORATORY Final Result Performing Organization Address City/State/[facility] Co de Phone Number [facility] [address] [place] [address], documented in this encounter Visit Diagnoses Diagnosis [...] RN) documented in this encounter Care Teams Lean Engineer Relationship Specialty Start Date End Date Mery Maxwell MD [address] [place] [phone] PCP - General FAMILY PRACTICE 08/19/23 documented as of this encounter
--- OUTSIDE RECORDS SUMMARY | 2024-06-22 19:03 | XMS_ITS | Encounter Summary ---
Author Organization [facility] Address [address] [place] [address]. [place] [address] [place] [address] Care Team Providers Care Sheet Heater Helper Name Role Phone Mery Maxwell MD Primary Care Provider +1- [phone] Encounter Details Date Type Department Care Team (Late st Contact Info) Description 09/08/2023 Orders Only [facility] [address] [place] [address] Mery Maxwell MD [address] [place] [phone] Social History Tobacco Use Types Packs/Day Years Used Date Smoking Tobacco: Former Cigarettes Smokeless Tobacco: Never Alcohol Use Standard Drinks/Week Comments Not Currently 0 (1 standard drink = 0.6 oz pur e alcohol) [facility] Utilities Answer Date Recorded In the past 12 months has [facility], gas, oil, or water [employer] threatened to shut off services in your [...] a fdc (including now)? 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 Visit [facility] [address] [place] [phone] Martha Ramirez [facility]- [address] [place] [address] documented as of this encounter Results * (ABNORMAL) COMPREHENSIVE METABOLIC PANEL (09/08/2023 10:00 AM CDT) SODIUM S/P/B 137 136 - 145 MMOL/L 09/08/2023 11:51 AM T [facility] POTASSIUM S/P/B 3.6 3.5 - 5.1 MMOL/L 09/08/2023 11:51 AM T [facility] CHLORIDE S/P/B 98 98 - 107 MMOL/L 09/08/2023 11:51 AM CDT [facility] CO2 25.5 21.0 - 32.0 MMOL/L 09/08/2023 11:51 AM T [facility] GLUCOSE 152(H) 70 - 99 MG/DL 09/08/2023 11:51 AM T [facility] Comment: FASTING GLUCOSE 100 TO 125 MG/DL IS CONSISTENT WITH IMPAIRED FASTING GLUCOSE. FASTING GLUCOSE >125 MG/DL IS CONSISTENT WITH DIABETES. RANDOM GLUCOSE >200 MG/DL WITH HYPERGLYCEMIC SYMPTOMS IS CONSISTENT WITH DIABETES. PER ADA GUIDELINES BUN 59(H) 6 - 24 MG/DL 09/08/2023 11:51 AM CDT [facility] CREATININE S/P/B 6.39(H) 0.70 - 1.30 MG/DL 09/08/2023 11:51 AM CDT [facility] CALCIUM S/P/B 9.0 8.4 - 10.5 MG/DL 09/08/2023 11:51 AM CDT [facility] BILIRUBIN TOTAL S/P/B 0.6 0.2 - 1.0 MG/DL 09/08/2023 11:51 AM T [facility] Comment: THIS ASSAY IS NOT RECOMMENDED FOR PATIENTS UNDERGOING TREATMENT WITH ELTROMBOPAG DUE TO THE POTENTIAL FOR FALSELY ELEVATED RESULTS. ALKALINE PHOSPHATASE S/P/B 52 45 - 115 U/L 09/08/2023 11:51 AM T [facility] AST 14(L) 15 - 37 U/L 09/08/2023 11:51 AM T [facility] ALT 17 16 - 63 U/L 09/08/2023 11:51 AM T [facility] TOTAL PROTEIN S/P/B 7.9 6.4 - 8.2 G/DL 09/08/2023 11:51 AM [facility] ALBUMIN S/P/B 3.4 3.4 - 5.0 G/DL 09/08/2023 11:51 AM [facility] ANION GAP 13.5 5.0 - 15.0 MMOL/L 09/08/2023 11:51 AM T [facility] OSMOLALITY (CALC) 304 MOSM/KG 024 11:51 AM T [facility] Comment:REFERENCE RANGE NOT ESTABLISHED GFR ESTIMATE 10(L) >89 ML/MIN/1. 73 M2 09/08/2023 11:51 AM T [facility] GFR NOTES GFR REFERENCE S: 09/08/2023 11:51 AM T [facility] Comment: THE ESTIMATED GFR IS CALCULATED [...] LABORATORY Final Resu lt Performing Organization Address City/[facility]/ZIP Co de Phone Number [facility] [address] [place] [address], * MAGNESIUM (09/08/2023 10:00 AM CDT) MAGNESIUM 1.8 1.8 - 2.4 MG/DL 09/08/2023 11:51 AM CDT [facility] 09/08/2023 10:0 0 AM CDT us Mery Maxwell MD LABORATORY Final Resu lt Performing Organization Address [facility]/ZIP Co de Phone Number [facility] [address] [place] [address], * (ABNORMAL) CBC W/DIFF AUTOMATED (09/08/2023 10:00 AM CDT) WBC 7.88 4.00 - 10.80 x10'3/uL 09/08/2023 11:34 AM CDT [facility] RBC 3.44(L) 4.50 - 6.10 x10'6/uL 09/08/2023 11:34 AM CDT [facility] HGB 11.2(L) 13.0 - 18.0 G/DL 09/08/2023 11:34 AM CDT [facility] HCT 35.2(L) 37.0 - 52.0 % 09/08/2023 11:34 AM CDT [facility] MCV 102.3(H) 78.0 - 100.0 FL 09/08/2023 11:34 AM CDT [facility] MCH 32.6(H) 27.0 - 31.0 PG 09/08/2023 11:34 AM CDT [facility] MCHC 31.8(L) 33.0 - 36.0 G/DL 09/08/2023 11:34 AM CDT [facility] RDW 13.9 11.5 - 14.5 % 09/08/2023 11:34 AM CDT [facility] PLT 268 150 - 350 x10'3/uL 09/08/2023 11:34 AM CDT [facility] MPV 9.9 7.4 - 10.4 FL 09/08/2023 11:34 AM CDT [facility] CBC COMMENT NORMAL REFERENCE RANGE NOT ESTABLISHED FOR THE PROPORTIONAL LEUKOCYTE DIFFERENTIAL. 09/08/2023 11:34 AM CDT [facility] NEUTROPHILS % 65.2 % 09/08/2023 11:34 AM CDT [facility] LYMPHOCYTES % 20.7 % 09/08/2023 11:34 AM CDT [facility] MONOCYTES % 5.8 % 09/08/2023 11:34 AM CDT [facility] EOSINOPHILS % 6.0 % 09/08/2023 11:34 AM CDT [facility] BASOPHILS % 1.3 % 09/08/2023 11:34 AM CDT [facility] IMMATURE GRANS % 1.0 % 09/08/19 11:34 AM CDT [facility] NRBC 0.0 % 09/08/2023 11:34 AM CDT [facility] ABS. NEUTROPHILS 5.14 1.60 - 8.30 x10'3/uL 09/08/2023 11:34 AM CDT [facility] ABS. LYMPHOCYTES 1.63 0.80 - 4.70 x10'3/uL 09/08/2023 11:34 AM CDT [facility] ABS. MONOCYTES 0.46 0.00 - 1.50 x10'3/uL 09/08/2023 11:34 AM CDT [facility] ABS. EOSINOPHILS 0.47(H) 0.00 - 0.40 x10'3/uL 09/08/2023 11:34 AM CDT [facility] ABS. BASOPHILS 0.10 0.00 - 0.20 x10'3/uL 09/08/2023 11:34 AM CDT [facility] ABS. IMMATURE GRANULOCYTES 0.08(H) 0.00 - 0.03 x10'3/uL 09/08/2023 11:34 AM CDT [facility] ABS. NUCLEATED RBC'S 0.00 0.00 x10'3/uL 09/08/2023 11:34 AM CDT [facility] 09/08/2023 10:0 0 AM CDT us Mery Maxwell MD LABORATORY Final Resu lt [facility] [address] [place] [address], documented in this encounter Visit Diagnoses Diagnosis Hypertension- Primary Unspecified essential hypertension Hypomagnesemia Disorders of magnesium metabolism Hypokalemia Hypopotassemia documented in this encounter Care Teams Sheet Heater Helper Relationship Specialty Start Date End Date Mery Maxwell MD [address] [place] [phone] PCP - General FAMILY PRACTICE 08/19/23 documented as of this encounter
--- OUTSIDE RECORDS SUMMARY | 2024-06-22 19:03 | XMS_ITS | Encounter Summary ---
Author Organization [facility] Address [address] [place] [address]. [place] [address] [place] [address] Care Team Providers Care Security Delivery Specialist Name Role Phone Mery Maxwell MD Primary Care Provider [phone] Reason for Visit * Reason Comments Medical Problem Encounter Details Date Type Department Care Team (Late st Contact Info) Description 12/31/2023 3:36 PM CDT - 12/31/2023 9:00 PM T Emergency [facility] [address] [facility] [place] [address] Wale Alberto MD [address] [place] [address] Medical Problem Discharge Disposition: Transfer to Acute Care Hospital Social History Tobacco Use Types Packs/Day Years Used Date Smoking Tobacco: Former Cigarettes Smokeless Tobacco: Never Alcohol Use Standard Drinks/Week Comments Not Currently 0 (1 standard drink = 0.6 oz pur e alcohol) [facility] Utilities Answer Date Recorded In the past 12 months has [employer], [employer], or water [employer] threatened to shut off services in your [...] a jail (including now)? Patient declined 09/01/2023 Housing Stability [...] were you homeless or living in a jail (including now)? No 01/01/2024 Sex and Gender [...] Care Everywhere. * Dizziness, Nonvertigo, Discharge Instructions (Irish) documented in this encounter Medications at Time [...] CDT Report given to Naty Chavez at [facility] called for transport. Pt updated. * Joaquin [...] History: Diagnosis Date A-fib ([facility]) Constipation Diabetes mellitus ([facility]) ESRD (end stage renal disease) ([facility]) GERD (gastroesophageal reflux disease) Gout, unspecified High cholesterol Neuropathy 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[facility]) Renal disorder PAST SURGICAL HISTORY: [...] hospital encounter of 12/31/23 ECG [address] [place] [address] Test Date: 2023-12-31 Pat Name: VINAY WILBURN Department: 3 Room: EXAM 404 Gender: Male 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: : 1970 Requested By: WALE ALBERTO Order Number: [id number] Reading MD: Measurements Intervals [place] Rate: 60 P: 35 VT: 200 QRS: -33 QRSD: 105 T: 31 QT: 511 QTc: 511 Interpretive Statements SINUS RHYTHM LEFT AXIS DEVIATION PROLONGED QT INTERVAL +++ CRITICAL TEST RESULT +++ ECG [address] [place] [address] Test Date: 2023-12-31 Pat Name: VINAY WILBURN Department: 3 Room: EXAM 404 Gender: Male 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 Exam time: [...] 511. Orthostatics negative.6:[address] Mena in [facility] agrees to admit after case discussion, recommends another 400 mg of p.o. magnesium. No telemetry beds at [facility]. Patient given 30 mEq of [...] to Another Facility Wale Alberto MD 12/31/23 8398 * Jessenia Martin RN - 12/31/2023 3:46 [...] st Contact Info) Description 07/20/2024 10:30 AM STOVE TENDER Office Visit [facility] [address] [phone] Martha Ramirez [facility]- [address] [place] [address] documented as of this encounter [...] magnesium and potassium us Wale Alberto MD [facility] Final Result * ECG 12 lead (12/31/2023 6:05 PM CDT) 12/31/2023 6:05 PM CDT [facility] - 01/01/2024 6:58 AM CDT ? [facility] ?[address] [place], [place] ??[address] ? Test Date: ?2023-12-31 Pat Name: ? VINAY COSMO ?Department: ?? 3 ? Room: ? EXAM 404 Gender: ? Male ? 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 : ?1970 ? Requested By: WALE ALBERTO Order Number: [id number] ? Reading MD: ?? Rohit Hadley ? Measurements Intervals ?[place] ? Rate: ? 61 ? P: ?62 VT: ? 204 ?QRS: ?-25 QRSD: ? 107 ?T: ?28 QT: ? 494 ? QTc: ?498 ? Interpretive Statements SINUS RHYTHM POSSIBLE LEFT ATRIAL ENLARGEMENT BORDERLINE LEFT AXIS DEVIATION PROLONGED QT INTERVAL Procedure Note Rohit Butcher MD - 01/01/[address] 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 TRANSPARENCY CLEAR 12/31/2023 5:32 PM CD[address] [facility] SPECIFIC GRAVITY (U) 1.020 1.000 - 1.025 12/31/2023 5:32 PM CDT [facility] U PH 7.0 5.0 - 8.0 12/31/2023 5:32 PM CDT [facility] LEUKOCYTES (U) NEGATIVE NEGATIVE 12/31/2023 5:32 PM CDT [facility] NITRITES NEGATIVE NEGATIVE 12/31/2023 5:32 PM CDT [facility] PROTEIN RANDOM (U) 3+(A) NEGATIVE 12/31/2023 5:32 PM CDT [facility] GLUCOSE (U) TRACE(A) NEGATIVE 12/31/2023 5:32 PM CDT [facility] KETONES MG/DL (U) TRACE(A) NEGATIVE 12/31/2023 5:32 PM CDT [facility] UROBILINOGEN 0.2 <1.0 EU/DL 12/31/2023 5:32 PM CD[address] [facility] BILIRUBIN (U) NEGATIVE NEGATIVE 12/31/2023 5:32 PM CDT [facility] BLOOD (U) TRACE(A) NEGATIVE 12/31/2023 5:32 PM CDT [facility] WBC/HPF 0-5 0 - 5 /HPF 12/31/2023 5:32 PM CDT [facility] RBC/HPF 0-5 0 - 5 /HPF 12/31/2023 5:32 PM CDT [facility] BACTERIA (U) TRACE /HPF 12/31/2023 5:32 PM CDT [facility] MUCUS PRESENT 12/31/2023 5:32 PM CDT [facility] OTHER CASTS (U) HYALINE /LPF 5:32 PM CD[address] [facility] Comment:0-5 URINE SPECIMEN OBTAINED BY CLEAN CATCH PROCEDURE / Unknown 12/31/2023 5:18 PM CDT Wale Alberto MD URINE ORDERABLES Final Result [facility] [address] [place] [address], * EKG Reading (12/31/2023 4:18 PM CDT) Narrative Wale Alberto MD - 12/31/2023 4:18 PM CDT Wale Alberto MD ? 12/31/2023 11:02 PM EKG Reading Date/Time: 12/31/2023 4:18 PM Performed by: Wale Alberto MD Authorized by: Wale Alberto MD ??Interpreted by ED physician: no specific st-t changed. Rhythm: sinus rhythm Rate: normal Clinical impression: abnormal ECG Comments: Increased QT interval Wale Alberto MD [facility] Final Result * [...] - 2.4 MG/DL 12/31/2023 4:49 PM CD[address] [facility] 12/31/2023 4:03 PM CDT Wale Alberto MD LABORATORY Final Result [facility] [place] [address], * TROPONIN, QUANT (12/31/2023 4:03 PM CDT) TROPONIN I HIGH SENSITIVITY 11 0 - 76 ng/L 12/31/2023 4:49 PM [address] [facility] 12/31/2023 4:03 PM CDT us Wale Alberto MD LABORATORY Final Result Performing Organization Address [facility]/ZIP Co de Phone Number [facility] [address] [place] [address], * (ABNORMAL) PROTIME/INR, VENOUS (12/31/2023 4:03 PM CDT) PROTIME 19.5(H) 9.4 - 12.5 SEC 12/31/2023 4:[address] PM [address] [facility] INR 1.7(H) 0.8 - 1.0 12/31/2023 4:22 PM [address] [facility] 12/31/2023 4:03 PM CDT us Wale Alberto MD LABORATORY Final Result Performing Organization Address [facility] Co de Phone Number [facility] [address] [place] [address], [place] [phone] * (ABNORMAL) COMPREHENSIVE METABOLIC PANEL (12/31/2023 4:03 PM CDT) SODIUM S/P/B 137 136 - 145 MMOL/L 12/31/2023 4:49 [address] [facility] POTASSIUM S/P/B 3.2(L) 3.5 - 5.1 MMOL/L 12/31/2023 4:49 PM CD[address] [facility] CHLORIDE S/P/B 98 98 - 107 MMOL/L 12/31/2023 4:49 PM CDT [facility] CO2 32.2(H) 21.0 - 32.0 MMOL/L 12/31/2023 4:49 PM CDT [facility] GLUCOSE 150(H) 70 - 99 MG/DL 12/31/2023 4:49 PM CDT [facility] Comment: FASTING GLUCOSE 100 TO 125 MG/DL IS CONSISTENT WITH IMPAIRED FASTING GLUCOSE. FASTING GLUCOSE >125 MG/DL IS CONSISTENT WITH DIABETES. RANDOM GLUCOSE >200 MG/DL WITH HYPERGLYCEMIC SYMPTOMS IS CONSISTENT WITH DIABETES. PER ADA GUIDELINES BUN 26(H) 6 - 24 MG/DL 12/31/2023 4:49 PM CD[address] [facility] CREATININE S/P/B 3.22(H) 0.70 - 1.30 MG/DL 12/31/2023 4:49 PM CD[address] [facility] CALCIUM S/P/B 9.1 8.4 - 10.5 MG/DL 12/31/2023 4:49 PM [address] [facility] BILIRUBIN TOTAL S/P/B 0.6 0.2 - 1.0 MG/DL 12/31/2023 4:49 PM [address] [facility] Comment: THIS ASSAY IS NOT RECOMMENDED FOR PATIENTS UNDERGOING TREATMENT WITH ELTROMBOPAG DUE TO THE POTENTIAL FOR FALSELY ELEVATED RESULTS. ALKALINE PHOSPHATASE S/P/B 60 45 - 115 U/L 12/31/2023 4:49 PM T [facility] AST 13(L) 15 - 37 U/L 12/31/2023 4:49 PM T [facility] ALT 15(L) 16 - 63 U/L 12/31/2023 4:49 PM T [facility] TOTAL PROTEIN S/P/B 8.2 6.4 - 8.2 G/DL 12/31/2023 4:49 PM T [facility] ALBUMIN S/P/B 3.4 3.4 - 5.0 G/DL 12/31/2023 4:49 PM [address] [facility] ANION GAP 6.8 5.0 - 15.0 MMOL/L 12/31/2023 4:49 PM T [facility] OSMOLALITY (CALC) 292 MOSM/KG 024 4:[address] [facility] Comment:REFERENCE RANGE NOT ESTABLISHED GFR ESTIMATE 22(L) >89 ML/MIN/1. 73 M2 12/31/2023 4:49 PM T [facility] GFR NOTES GFR REFERENCE S: 12/31/2023 4:49 PM [facility] Comment: THE ESTIMATED GFR IS CALCULATED [...] CDT Wale Alberto MD LABORATORY Final Result [facility] [address] [place] [address], * (ABNORMAL) CBC W/DIFF AUTOMATED (12/31/2023 4:03 PM CDT) WBC 6.62 4.00 - 10.80 x10'3/uL 12/31/2023 4:12 PM [address] [facility] RBC 3.70(L) 4.50 - 6.10 x10'6/uL 12/31/2023 4:12 PM [address] [facility] HGB 12.0(L) 13.0 - 18.0 G/DL 12/31/2023 4:12 PM CD[address] [facility] HCT 36.7(L) 37.0 - 52.0 % 12/31/2023 4:12 PM CD[address] [facility] MCV 99.2 78.0 - 100.0 FL 12/31/2023 4:12 [address] [facility] MCH 32.4(H) 27.0 - 31.0 PG 12/31/2023 4:12 [address] CD[address] [facility] MCHC 32.7(L) 33.0 - 36.0 G/DL 12/31/2023 4:12 PM CD[address] [facility] RDW 12.8 11.5 - 14.5 % 12/31/2023 4:12 PM CD[address] [facility] PLT 205 150 - 350 x10'3/uL 12/31/2023 4:12 PM CD[address] [facility] MPV 9.6 7.4 - 10.4 FL 12/31/2023 4:12 PM CD[address] [facility] CBC COMMENT NORMAL REFERENCE RANGE NOT ESTABLISHED FOR THE PROPORTIONAL LEUKOCYTE DIFFERENTIAL. 12/31/2023 4:[address] [facility] NEUTROPHILS % 61.7 % 12/31/2023 4:[address] [facility] LYMPHOCYTES % 28.2 % 12/31/2023 4:[address] [facility] MONOCYTES % 6.2 % 12/31/2023 4:12 [address] [facility] EOSINOPHILS % 2.3 % 12/31/2023 4:12 [address] [facility] BASOPHILS % 0.8 % 12/31/2023 4:12 [address] [facility] IMMATURE GRANS % 0.8 % 12/31/19 4:[address] [facility] NRBC 0.0 % 12/31/2023 4:12 [address] [facility] ABS. NEUTROPHILS 4.09 1.60 - 8.30 x10'3/uL 12/31/2023 4:12 [address] [facility] ABS. LYMPHOCYTES 1.87 0.80 - 4.70 x10'3/uL 12/31/2023 4:12 PM [address] [facility] ABS. MONOCYTES 0.41 0.00 - 1.50 x10'3/uL 12/31/2023 4:12 [address] [facility] ABS. EOSINOPHILS 0.15 0.00 - 0.40 x10'3/uL 12/31/2023 4:[address] [facility] ABS. BASOPHILS 0.05 0.00 - 0.20 x10'3/uL 12/31/2023 4:[address] [facility] ABS. IMMATURE GRANULOCYTES 0.05(H) 0.00 - 0.03 x10'3/uL 12/31/2023 4:[address] [facility] ABS. NUCLEATED RBC'S 0.00 0.00 - 0.01 x10'3/uL 12/31/2023 4:[address] [facility] 12/31/2023 4:03 PM CDT Wale Alberto MD LABORATORY Final Result [facility] [address] [place] [address], * ECG 12 lead (12/31/2023 3:41 PM CDT) 12/31/2023 3:41 PM CDT Narrative [facility] - 01/01/2024 6:57 AM CDT ? [facility] ?[address] [place], [place] ??[address] ? Test Date: ?2023-12-31 Pat Name: ? VINAY WILBURN ?Department: ?? 3 ? Room: ? EXAM 404 Gender: ? Male ? 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 : ?1970 ? Requested By: WALE ALBERTO Order Number: [id number] ? Andrea ANN: ?? Rohit Butcher ? Measurements Intervals ?[place] ? Rate: ? 60 ? P: ?35 VT: ? 200 ?QRS: ?-33 QRSD: ? 105 ?T: ?31 QT: ? 511 ? QTc: ?511 ? Interpretive Statements SINUS RHYTHM LEFT AXIS DEVIATION PROLONGED QT INTERVAL +++ CRITICAL TEST RESULT +++ Procedure Note Rohit Butcher MD - 01/01/2024 [place] [address] 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: : 1970 Requested By: WALE ALBERTO Order Number: [id number] Reading MD: Rohit Butcher Measurements Intervals [place] Rate: 60 P: 35 VT: 200 QRS: -33 QRSD: 105 T: 31 QT: 511 QTc: 511 Interpretive Statements SINUS RHYTHM LEFT AXIS DEVIATION PROLONGED QT INTERVAL +++ CRITICAL TEST RESULT +++ us Wale Alberto MD ECG ORDERABLES Final Result [facility] documented in this encounter Visit Diagnoses [...] RN) documented in this encounter Care Teams Security Delivery Specialist Relationship Specialty Start Date End Date Mery Maxwell MD [address] [place] [phone] PCP - General FAMILY PRACTICE 08/19/23 documented as of this encounter
--- OUTSIDE RECORDS SUMMARY | 2024-06-22 19:04 | XMS_ITS | Encounter Summary ---
Author Organization [facility] Address [address] [place] [address]. [place] [address] [place] [address] Care Team Providers Care Credit Administration Officer Name Role Phone Unavailable Primary Care Provider Unavailabl e Encounter Details Date Type Department Care Team (Late st Contact Info) Description 04/21/2004 Emergency [facility] [place] [address] Radha Carrasco MD Social History Tobacco Use [...] st Contact Info) Description 07/20/2024 10:30 AM SOLAR PANEL TECHNICIAN Office Visit [facility]-[address] [place] [phone] Martha Ramirez, [facility]-[address] [address] documented as of this encounter Visit Diagnoses Not on filedocumented in this encounter
--- OUTSIDE RECORDS SUMMARY | 2024-06-22 19:04 | XMS_ITS | Encounter Summary ---
Author Organization [facility] Address [address] [place] [address]. [place] [address] [place] [address] Care Team Providers Care Word Processing Supervisor Name Role Phone Unavailable Primary Care Provider Unavailabl e Encounter Details Date Type Department Care Team (Late st Contact Info) Description 07/22/1998 [place] [address] , Generic Conversion, Social History Tobacco Use [...] st Contact Info) Description 07/20/2024 10:30 AM DROP FORGE HAND Office Visit [facility] [place] [phone] Martha Ramirez, [facility]-[address] [address] documented as of this encounter Visit Diagnoses Not on filedocumented in this encounter
--- OUTSIDE RECORDS SUMMARY | 2024-06-22 19:04 | XMS_ITS | Encounter Summary ---
Author Organization [facility] Address [address] [place] [address]. [place] [address] [place] [address] Care Team Providers Care Psychological Aide Name Role Phone Unavailable Primary Care Provider Unavailabl e Encounter Details Date Type Department Care Team (Late st Contact Info) Description 11/04/1997 [place] [address] , Generic Conversion, Social History Tobacco Use [...] st Contact Info) Description 07/20/2024 10:30 AM EXTERNAL GRINDER TOOL Office Visit [facility] [place] [phone] Martha Ramirez, [facility]-[address] [address] documented as of this encounter Visit Diagnoses Not on filedocumented in this encounter
== END 2024-06-16 02:07 | disposition home or self-care (01) ==
PROVIDERS: Emergency Provider Emergency Medicine; PCP Family Medicine
DX: I12.0 Hypertensive chronic kidney disease with stage 5 chronic kidney disease or end stage renal disease (principal); R60.9 Edema, unspecified; E11.22 Type 2 diabetes mellitus with diabetic chronic kidney disease; N18.6 End stage renal disease; Z99.2 Dependence on renal dialysis; I48.91 Unspecified atrial fibrillation; Z87.891 Personal history of nicotine dependence
CPT/HCPCS: 36415; 71045; 80053; 83605; 83735; 84100; 84484; 85025; 93005; 99284; A9270

== ENCOUNTER 2024-11-06 13:18 | Emergency (ER) | payer MEDICARE, MEDICAID, SELFPAY ==
[2024-11-06] VITALS (24 sets, daily range): BP systolic 169–202; BP diastolic 86–106; PULSE 90–102; RESP 16–27; TEMP 37.1–37.2; O2SAT 93–98
--- NOTE | 2024-11-06 13:19 | ECG_ITS ---
Test Date: 2024-11-06 13:36:56 Measurements Intervals [place] Rate: 93 P: 65 MI: 193 QRS: -47 QRSD: 103 T: 71 QT: 405 QTc: 506 Interpretive Statements SINUS RHYTHM POSSIBLE LEFT ATRIAL ENLARGEMENT [-0.1mV P-WAVE IN V1/V2] LEFT ANTERIOR FASCICULAR BLOCK [QRS AXIS <= -45, QR IN I, RS IN II] Compared to ECG 06/15/2024 22:46:11 Left anterior fascicular block now present Electronically Signed On 11-06-2024 20:48:23 CDT by Edward Sanchez M.D.
--- OUTSIDE RECORDS SUMMARY | 2024-11-06 13:22 | XMS_ITS | Patient Health Record ---
Author Organization [facility] Felicia logan Billing Info Address [address] [place] [address] [place] [address] Care Team Providers Care Oxidation Operator Name Role Phone [facility] Primary Care Provider Unavailable Allergies Allergen [...] Problem Status W/U Status Risk Notes Problem 401687116 Persistent atria l fibrillation (I48.1) Active confirmed Problem 208188193 Chronic atrial fibrillation (I48.2) Active confirmed Problem Chronic diastolic heart failure (992258301) Chronic diastolic (congestive) heart failure (I50.32) Active confirmed Problem 871470802 Erectile dysfunction due to diseases classified elsewhere (N52.1) Active confirmed Problem 629982808 Permanent atrial fibrillation (I48.21) Active confirmed Problem 42386263 Essential hypertension (I10) Active confirmed Problem 77987820 ADRYAN (obstructive sleep apnea) (G47.33) Active confirmed Problem 99225818 JOHANSEN (dyspnea on exertion) (R06.09) Active confirmed Problem 387714330 Obesity (BMI 30-39.9) (E66.9) Active confirmed Problem 923926945 Paroxysmal a-fib (I48.0) Active confirmed Problem 147903902 BMI 37.0-37.9, adult (Z68.37) Active confirmed Problem 231512812 Acute renal insufficiency (N28.9) Active confirmed Problem 4332778302676 CAD in [place] artery (I25.10) Active confirmed Problem 823089741 watermaster curren t use of insulin (Z79.4) Active confirmed Problem 9764866759280 Coronary artery disease involving [place] coronary artery of [place] heart without angina pectoris (I25.10) Active confirmed Problem 92834718 Anemia of unknow n etiology (D64.9) Active confirmed Problem 73112881 Hyperlipidemia, unspecified hyperlipidemia type (E78.5) Active confirmed Problem Chronic diastolic heart failure (805779826) Chronic diastolic congestive heart failure (I50.32) Active confirmed Problem 857448686 Edema, unspecified type (R60.9) Active confirmed Problem 36893345 Type 2 diabetes mellitus with complication, with long-term current use of insulin (E11.8) Active confirmed Plan Of Treatment Pending Test Test Name Order Date CARDIOVERSION (87105) CV* 12/31/2021 EPS - ABLATION, A-FIB (68031, 09161) CV* 12/31/2021 IMPLANT - LOOP RECORDER (66228) CV* 12/13 DOMI (96407) CV* 12/31/2021 DOMI (37602) CV* 01/02/2022 Insurance Providers Payer Name Payer Address Payer Phone Subscriber Number Group Number Insured Name Patient Relationship to Insured Coverage Start Date Coverage End Date [facility] [address] ATTN CLAIMS [place], [place] [id number] Aaron Campos Self - patient is the insured 2 Medical (General) History Medical History History ICD Code Chronic atrial fibrillation I48.2 Essential hypertension I10 [facility] current use of insulin Z79.4 Type 2 [...] vomiting 05-14-19 [facility]Dizziness 07-31-2019 [facility]Chest pain 10-26-19 [facility] 07-23-20 [facility]Anasarca 11-01-2020
--- OUTSIDE RECORDS SUMMARY | 2024-11-06 13:22 | XMS_ITS | Clinical Summary ---
Author Organization Unknown Care Team Providers Care Latent Fingerprint Examiner Name Role Phone JERMAN ANN, RIMA Unavailable Unavailable [place]TT[place] REGISTERED NURSE, JESSIE Unavailable Unavailable Payers Payer Name Policy Type Policy Number Effective Date Expira tion Date MEDICARE [place] - EPISODIC [id number] Problems Condition Name Condition Details Condition Category [...] CHRONIC KIDNEY DISEASE Active 06-15 00:00: 00 DEPENDENCE ON RENAL DIALYSIS Active 06-15 00:00: 00 TYPE 2 DIABETES MELLITUS WITH DIABETIC NEUROPATHY, UNSP Active 06-15 00:00: 00 ORTHOSTATIC HYPOTENSION Active 06-15 00:00: 00 ATHSCL HEART DISEASE OF [place] CORONARY ARTERY W/O ANG PCTRS Active 06-15 00:00: 00 PAROXYSMAL ATRIAL FIBRILLATION Active 06-15 00:00: 00 GOUT, UNSPECIFIED Active 06-15 00:00: 00 SECONDARY HYPERPARATHY ROIDISM OF RENAL ORIGIN Active 06-15 00:00: 00 MIXED HYPERLIPIDEM IA Active 06-15 00:00: 00 OTHER DISORDERS OF PHOSPHORUS METABOLISM Active - 00:00: 00 GASTRO-ESOPH AGEAL REFLUX DISEASE WITHOUT ESOPHAGITIS Active - 00:00: 00 OBSTRUCTIVE SLEEP APNEA (ADULT) (PEDIATRIC) Active 06-15 00:00: 00 CONSTIPATION , UNSPECIFIED Active 06-15 00:00: 00 SMELLER (CURRENT) USE OF ANTICOAGULAN TS Active 06-15 00:00: 00 SHELTER (CURRENT) USE OF INSULIN Active 06-15 00:00: [...] 100 mg tablet 09-24 00:00: 00 Yes [id number] HYPERPHOSPH ATEMIA 1 tablet TWICE DAILY 1 tablet TWICE DAILY (route: oral) Med Classific ation: Gout and Hyperuric emia Therapy amiodarone 200 mg tablet 09-24 00:00: 00 Yes [id number] AFIB 1 tablet ONCE DAILY 1 tablet ONCE DAILY (route: oral) Med Classific ation: Cardiovas cular Therapy Agents atorvastati n 20 mg tablet 09-24 00:00: 00 Yes [id number] HIGH CHOLESTEROL 1 tablet ONCE DAILY 1 tablet ONCE DAILY (route: oral) Med Classific ation: Cardiovas cular Therapy Agents calcitriol 0.25 mcg capsule 09-24 00:00: 00 Yes [id number] SUPPLEMENT 1 capsule DIRECTED 1 capsule DIRECTED (route: oral) Med Classific ation: Electroly te Balance-N utritiona l Products carvedilol 12.5 mg tablet 09-24 00:00: 00 12-08 23:59 :00 No [id number] HYPERTENSIO N 1 tablet TWICE DAILY 1 tablet TWICE DAILY (route: oral) Med Classific ation: Cardiovas cular Therapy Agents Eliquis 5 mg tablet 09-24 00:00: 00 Yes [id number] AFIB 1 tablet TWICE DAILY 1 tablet TWICE DAILY (route: oral) Med Classific ation: Hematolog ical Agents fluticasone propionate 50 mcg/actuati on blister powder for inhalation 09-24 00:00: 00 Yes [id number] ALLERGIES 1 inhalat ion TWICE DAILY 1 inhalation TWICE DAILY (route: inhalation ) Med Classific ation: Respirato ry Therapy Agents gabapentin 100 mg capsule 09-24 00:00: 00 Yes [id number] NERVE PAIN 1 capsule TWICE DAILY 1 capsule TWICE DAILY (route: oral) Med Classific ation: Central Nervous System Agents insulin lispro (U-100) 100 unit/mL subcutaneou s pen 09-24 00:00: 00 04-11 23:59 :00 No [id number] TYPE TWO DIABETES 8 unit 3 TIMES DAILY 8 unit 3 TIMES DAILY (route: subcutaneo us) Alternate Route: SUBCUTANE OUS. Med Classific ation: Endocrine lactulose 10 gram/15 mL (15 mL) oral solution 09-24 00:00: 00 Yes [id number] CONSTIPATIO N 30 mL TWICE DAILY 30 mL TWICE DAILY (route: oral) Med Classific ation: Gastroint estinal Therapy Agents Lantus Solostar U-100 Insulin 100 unit/mL (3 mL) subcutaneou s pen 09-24 00:00: 00 03-02 23:59 :00 No [id number] TYPE 2 DIABETES 10 unit AT BEDTIME 10 unit AT BEDTIME (route: subcutaneo us) Alternate Route: SUBCUTANE OUS. Med Classific ation: Endocrine midodrine 10 mg tablet 09-24 00:00: 00 Yes [id number] REGULATE BLOOD PRESSURE 1 tablet 3 TIMES DAILY 1 tablet 3 TIMES DAILY (route: oral) Med Classific ation: Cardiovas cular Therapy Agents nystatin 100,000 unit/gram topical powder 09-24 00:00: 00 Yes [id number] MOISTURE TO SKIN FOLDS OF GROIN 1 gram TWICE DAILY 1 gram TWICE DAILY (route: topical) Med Classific ation: Dermatolo gical Protonix 40 mg tablet,ada yed release 09-24 00:00: 00 Yes [id number] REFLUX 1 tablet TWICE DAILY 1 tablet TWICE DAILY (route: oral) Med Classific ation: Gastroint estinal Therapy Agents Proventil HFA 90 mcg/actuati on aerosol inhaler 4-12 00:00: 00 Yes [id number] COUGH 1 puff EVERY 6 HOURS 1 puff EVERY 6 HOURS (route: inhalation ) Med Classific ation: Respirato ry Therapy Agents tramadol 50 mg tablet 4-12 00:00: 00 Yes [id number] PAIN 2 tablet EVERY 6 HOURS PRN 2 tablet EVERY 6 HOURS PRN (route: oral) Med Classific ation: Analgesic , Anti-infl ammatory or Antipyret ic Tylenol 325 mg tablet 412 00:00: 00 Yes [id number] PAIN 2 tablet EVERY 6 HOURS 2 tablet EVERY 6 HOURS (route: oral) Med Classific ation: Analgesic , Anti-infl ammatory or Antipyret ic carvedilol 25 mg tablet 12-10 00:00: 00 02-26 23:59 :00 No [id number] HYPERTENSIO N 1 tablet TWICE DAILY 1 tablet TWICE DAILY (route: oral) Med Classific ation: Cardiovas cular Therapy Agents sevelamer carbonate 800 mg tablet 8 00:00: 00 Yes [id number] ESRD 1 tablet 3 TIMES DAILY 1 tablet 3 TIMES DAILY (route: oral) Alternate Route: BY MOUTH. Med Classific ation: Genitouri nary Therapy Lantus Solostar U-100 Insulin 100 unit/mL (3 mL) subcutaneou s pen 03-02 00:00: 00 03-04 23:59 :00 No [id number] T2D 12 unit AT BEDTIME 12 unit AT BEDTIME (route: subcutaneo us) Med Classific ation: Endocrine Basaglar KwikPen U-100 Insulin 100 unit/mL (3 mL) subcutaneou s 03-04 00:00: 00 05-02 23:59 :00 No [id number] DIABETES MELLITUS TYPE TWO 18 unit AT BEDTIME 18 unit AT BEDTIME (route: subcutaneo us) Alternate Route: SUBCUTANE OUS. Med Classific ation: Endocrine benzonatate 200 mg capsule 2023-06 0-17 00:00: 00 04-05 23:59 :00 No [id number] COUGH 1 capsule 3 TIMES DAILY 1 capsule 3 TIMES DAILY (route: oral) Med Classific ation: Respirato ry Therapy Agents doxycycline hyclate 100 mg capsule 2023-06 0-17 00:00: 00 04-05 23:59 :00 No [id number] INFECTION PREVENTION 1 capsule TWICE DAILY 1 capsule TWICE DAILY (route: oral) Med Classific ation: Anti-Infe ctive Agents insulin lispro (U-100) 100 unit/mL subcutaneou s pen 2023-06 0- 00:00: 00 05-02 23:59 :00 No [id number] DIABETES MELLITUS 10 unit 3 TIMES DAILY 10 unit 3 TIMES DAILY (route: subcutaneo us) Med Classific ation: Endocrine Basaglar KwikPen U-100 Insulin 100 unit/mL (3 mL) subcutaneou s 2023-06 00:00: 00 09-13 23:59 :00 No [id number] DIABETES MELLITUS 24 unit AT BEDTIME 24 unit AT BEDTIME (route: subcutaneo us) Med Classific ation: Endocrine insulin lispro (U-100) 100 unit/mL subcutaneou s pen 2023-06 00:00: 00 Yes [id number] DIABETES MELLITUS 12 unit 3 TIMES DAILY 12 unit 3 TIMES DAILY (route: subcutaneo us) Med Classific ation: Endocrine carvedilol 25 mg tablet 2023-06 2-13 00:00: 00 Yes [id number] HYPERTENSIO N Per instruc tions DIRECTED Per instructio ns DIRECTED (route: oral) Med Classific ation: Cardiovas cular Therapy Agents bumetanide 1 mg tablet 17 00:00: 00 Yes [id number] FLUID OVERLOAD 1 tablet ONCE DAILY 1 tablet ONCE DAILY (route: oral) Alternate Route: BY MOUTH. Med Classific ation: Cardiovas cular Therapy Agents Nexium 24HR 20 mg capsule,del ayed release -17 00:00: 00 Yes [id number] GERD 1 capsule ONCE DAILY 1 capsule ONCE DAILY (route: oral) Alternate Route: BY MOUTH. Med Classific ation: Gastroint estinal Therapy Agents Basaglar KwikPen U-100 Insulin 100 unit/mL (3 mL) subcutaneou s 10-11 00:00: 00 Yes [id number] HYPERGLYCEM IA 30 unit AT BEDTIME 30 unit AT BEDTIME (route: subcutaneo us) Alternate Route: SUBCUTANE OUS. Med Classific ation: Endocrine bumetanide 1 mg tablet 10-11 00:00: 00 Yes [id number] FLUID OVERLOAD 1 tablet ONCE DAILY 1 tablet ONCE DAILY (route: oral) Alternate Route: BY MOUTH. Med Classific ation: Cardiovas cular Therapy Agents hydralazine 100 mg tablet 10-11 00:00: 00 Yes [id number] IF SYSTOLIC BP ABOVE 180 1 tablet ONCE DAILY 1 tablet ONCE DAILY (route: oral) Alternate Route: BY MOUTH. Med Classific ation: Cardiovas cular Therapy Agents Immunizations Ordered Immunization Name Filled Immunization Name Date Status Comments Refusal Reason INFLUENZA NOT GIVEN - NOT FLU SEASON, TIV (INACTIVATED) 2023-09-25 00:00:00 PNEUMOCOCCAL ? DOES NOT MEET THE AGE/CONDITION GUIDELINES, PPV 2023-09-25 00:00:00 Vital Signs Vital Name Observation Time Observation Value Commen ts Temperature 2024-10-31 14:14:00.000 97.1 [degF] Temperature 2024-10-18 08:40:00.000 98 [degF] Temperature 2024-10-13 08:13:00.000 97.5 [degF] Temperature 2024-10-04 14:39:00.000 97.4 [degF] Temperature 2024-09-19 13:38:00.000 97.7 [degF] Pulse 2024-10-31 14:14:00.000 92 /min Pulse 2024-10-18 08:40:00.000 80 /min Pulse 2024-10-13 08:13:00.000 75 /min Pulse 2024-10-04 14:39:00.000 78 /min Pulse 2024-09-19 13:38:00.000 88 /min O2 Saturation (%) 2024-10-31 14:14:00.000 95 % O2 Saturation (%) 2024-10-18 08:40:00.000 98 % O2 Saturation (%) 2024-10-13 08:13:00.000 98 % O2 Saturation (%) 2024-10-04 14:39:00.000 97 % O2 Saturation (%) 2024-09-19 13:38:00.000 98 % Respirations 2024-10-31 14:14:00.000 18 /min Respirations 2024-10-18 08:40:00.000 18 /min Respirations 2024-10-13 08:13:00.000 16 /min Respirations 2024-10-04 14:39:00.000 20 /min Respirations 2024-09-19 13:38:00.000 20 /min Weight (lbs) 2024-10-31 14:14:00.000 284 [lb_av] Weight (lbs) 2024-10-18 08:40:00.000 286.2 [lb_av] Weight (lbs) 2024-10-13 08:13:00.000 284.9 [lb_av] Systolic Blood Pressure 2024-10-31 14:14:00.000 156 mm [Hg] Systolic Blood Pressure 2024-10-18 09:06:00.000 170 mm [Hg] Systolic Blood Pressure 2024-10-13 08:13:00.000 165 mm [Hg] Systolic Blood Pressure 2024-10-04 14:39:00.000 178 mm [Hg] Systolic Blood Pressure 2024-09-19 13:38:00.000 126 mm [Hg] Diastolic Blood Pressure 2024-10-31 14:14:00.000 78 mm [Hg] Diastolic Blood Pressure 2024-10-18 09:06:00.000 95 mm [Hg] Diastolic Blood Pressure 2024-10-13 08:13:00.000 107 m m[Hg] Diastolic Blood Pressure 2024-10-04 14:39:00.000 98 mm [Hg] Diastolic Blood Pressure 2024-09-19 13:38:00.000 78 mm [Hg] Plan of Treatment Planned Activity Planned Date Details Comments Future Scheduled Test SKILLED NU RSE TO INSTRUCT PATIENT/CAREGIVER ON WHAT IS HYPERTENSION, HOW TO CHECK HIS/HER BLOOD PRESSURE, AND STRATEGIES TO USE TO CONTROL BLOOD PRESSURE SUCH MONITORING BP, SMOKING CESSATION, MANAGING BLOOD GLUCOSE RESULTS TO AN ACCEPTABLE RANGE, MONITORING WEIGHTS, ENGAGING IN PHYSICAL ACTIVITY AIMING FOR 150 MINUTES SPREAD THROUGHOUT THE WEEK. [code = SKILLED NURSE TO INSTRUCT PATIENT/CAREGIVER ON WHAT IS HYPERTENSION, HOW TO CHECK HIS/HER BLOOD PRESSURE, AND STRATEGIES TO USE TO CONTROL BLOOD PRESSURE SUCH MONITORING BP, SMOKING CESSATION, MANAGING BLOOD GLUCOSE RESULTS TO AN ACCEPTABLE RANGE, MONITORING WEIGHTS, ENGAGING IN PHYSICAL ACTIVITY AIMING FOR 150 MINUTES SPREAD THROUGHOUT THE WEEK.] Future Scheduled Test HOME HEALT H NURSE [...] BEFORE BREAKFAST. INSTRUCT PATIENT TO CHECK FOR 2-5 LBS. OF WEIGHT GAIN CAUSED BY INCREASED FLUID AND [...] BEFORE BREAKFAST. INSTRUCT PATIENT TO CHECK FOR 2-5 LBS. OF WEIGHT GAIN CAUSED BY INCREASED FLUID AND [...] OF BREATH, OR FATIGUE.] Future Scheduled Test [facility] TO INSTRUCT ON CHRONIC KIDNEY DISEASE ITS COMPLICATIONS, AND WHEN TO CONTACT THE AGENCY, PHYSICIAN OR 911 [code = HOME HEALTH NURSE TO INSTRUCT ON CHRONIC KIDNEY DISEASE ITS COMPLICATIONS, AND WHEN TO CONTACT THE AGENCY, PHYSICIAN OR 911] Future Scheduled Test [facility] WILL ASSESS FOR COMPLICATIONS RELATED TO ANEMIA AND INSTRUCT PATIENT/CAREGIVER ABOUT CAUSES, PRESCRIBED TREATMENT, AND SIGNS/SYMPTOMS TO REPORT. [code = HOME HEALTH NURSE WILL ASSESS FOR COMPLICATIONS RELATED TO ANEMIA AND INSTRUCT PATIENT/CAREGIVER ABOUT CAUSES, PRESCRIBED TREATMENT, AND SIGNS/SYMPTOMS TO REPORT.] Future Scheduled Test THE CER TIFYING PHYSICIAN, ASSOCIATED PHYSICIAN, NPP OR PA [...] FOR HOME HEALTH SERVICES. [code = THE CERTIFYING PHYSICIAN, ASSOCIATED PHYSICIAN, NPP OR PA [...] CONSULTING ON THE CERTIFIED CARE PLAN: DR STOLL-PCP, DR CHRISTIANSON-NEPHROLOGY AND ANYONE COVERING IN THEIR ABCENCE. [code = EACH ORDERED IN-HOME OR TELEHEALTH [...] CONSULTING ON THE CERTIFIED CARE PLAN: DR STOLL-PCP, DR CHRISTIANSON-NEPHROLOGY AND ANYONE COVERING IN THEIR ABCENCE.] Future Scheduled Test HOME HEALT H NURSE WILL TEACH THE PATIENT/CAREGIVER ABOUT [...] Test HOME HEALT H NURSE WILL INSTRUCT AND VERIFY APPROPRIATE STEPS ON HOW THE PATIENT CHECKS OWN BLOOD GLUCOSE AND IMPORTANCE TO TRACK BLOOD RESULTS ON A DAILY LOG OR NOTEBOOK TO MONITOR TRENDS. PATIENT/CAREGIVER OR HOME HEALTH RN WILL PERFORM BLOOD GLUCOSE CHECKS. BLOOD GLUCOSE MONITORING WILL OCCUR 4 TIMES PER DAY. [code = HOME HEALTH NURSE WILL INSTRUCT AND VERIFY APPROPRIATE STEPS ON HOW THE PATIENT CHECKS OWN BLOOD GLUCOSE AND IMPORTANCE TO TRACK BLOOD RESULTS ON A DAILY LOG OR NOTEBOOK TO MONITOR TRENDS. PATIENT/CAREGIVER OR HOME HEALTH RN WILL PERFORM BLOOD GLUCOSE CHECKS. BLOOD GLUCOSE MONITORING WILL OCCUR 4 TIMES PER DAY.] Future Scheduled Test HOME HEALT H NURSE WILL INSTRUCT AND VERIFY APPROPRIATE STEPS [...] PRESCRIBED BY THE PHYSICIAN.] Future Scheduled Test SKILLED NU RSE TO INSTRUCT ON REASON FOR DIALYSIS AND WHEN TO REPORT COMPLICATIONS TO THEIR MEDICAL PROVIDER. [code = SKILLED NURSE TO INSTRUCT ON REASON FOR DIALYSIS AND WHEN TO REPORT COMPLICATIONS TO THEIR MEDICAL PROVIDER.] Goal 2023-11-20 Patient Goal - SOC 09/24- GET STRONGER Goal 2024-01-04 Patient Goal - S OC 09/24- GET STRONGER RECERT 11/20/2023: TO GET AROUND BETTER Goal 2024-03-02 Patient Goal - S OC 09/24- GET STRONGER RECERT 11/20/2023: TO GET AROUND BETTER PHIL 01/04/24: STAY OUT OF HOSPITAL RECERT 01/18/2024: TO WALK AGAIN Goal 2024-05-17 Patient Goal - S OC 09/24- GET STRONGER RECERT 11/20/2023: TO GET AROUND BETTER PHIL 01/04/24: STAY OUT OF HOSPITAL RECERT 01/18/2024: TO WALK AGAIN 03/02/24 PHIL: TO STAY OUT OF HOSPITAL RECERT 03/21/24: TO GET STRONGER Goal 2024-07-19 Patient Goal - S OC 12- GET STRONGER RECERT 11/20/2023: TO GET AROUND BETTER PHIL 01/04/24: STAY OUT OF HOSPITAL RECERT 01/18/2024: TO WALK AGAIN 03/02/24 PHIL: TO STAY OUT OF HOSPITAL RECERT 03/21/24: TO GET STRONGER RECERT 05/17/24: TO STAY OUT OF THE HOSPITAL Goal 2024-09-15 Patient Goal - S OC 09/24- GET STRONGER RECERT 11/20/2023: TO GET AROUND BETTER PHIL 01/04/24: STAY OUT OF HOSPITAL RECERT 01/18/2024: TO WALK AGAIN 03/02/24 PHIL: TO STAY OUT OF HOSPITAL RECERT 03/21/24: TO GET STRONGER RECERT 05/17/24: TO STAY OUT OF THE HOSPITAL RECERT 07/19/24: STAY OUT OF HOSPITAL Goal Patient Goal - S OC 09/24- GET STRONGER RECERT 11/20/2023: TO GET AROUND BETTER PHIL 01/04/24: STAY OUT OF HOSPITAL RECERT 01/18/2024: TO WALK AGAIN 03/02/24 PHIL: TO STAY OUT OF HOSPITAL RECERT 03/21/24: TO GET STRONGER RECERT 05/17/24: TO STAY OUT OF THE HOSPITAL RECERT 07/19/24: STAY OUT OF HOSPITAL RECERT 09/15/24: TO GET STRONGER Goal 2024-01-18 Patient Goal - S OC 09/24- GET STRONGER RECERT 11/20/2023: TO GET AROUND BETTER PHIL 01/04/24: STAY OUT OF HOSPITAL Goal 2024-03-21 Patient Goal - S OC 09/24- GET STRONGER RECERT 11/20/2023: TO GET AROUND BETTER PHIL 01/04/24: STAY OUT OF HOSPITAL RECERT 01/18/2024: TO WALK AGAIN 03/02/24 PHIL: TO STAY OUT OF HOSPITAL Goal Provider Goal - PATIENT/CAREGIVER WILL [...] TAKE. Goal Provider Goal - PATIENT/CAREGIVER WILL INDEPENDENTLY DEMONSTRATE HOW TO CHECK HIS/HER OWN BP AND VERBALIZE WHAT STRATEGIES CAN ASSIST TO CONTROL BLOOD PRESSURE. Goal Provider Goal - PATIENT/CAREGIVER WILL DEMONSTRATE [...] SERVICES. Goal Provider Goal - PATIENT/CAREGIVER WILL VERBALIZE UNDERSTANDING OF THE CAUSES OF ANEMIA, SIGNS/SYMPTOMS TO REPORT, AND ADHERENCE TO PRESCRIBED TREATMENT BY END OF HOME HEALTH SERVICES. Goal Provider Goal - A PLAN OF CARE WILL BE ESTABLISHED THAT MEETS ALL PATIENT'S SENIOR LIVING NEEDS AND COUNTER SIGNED BY PHYSICIAN. Goal Provider Goal - PATIENT WILL BE [...] A TIMELY MANNER. Goal Provider Goal - BY THE END [...] AND SYMPTOMS OF DEHYDRATION AND ELECTROLYTE IMBALANCE. Progress Notes Progress Notes <paragraph>[Visit Date: 2024 by ROZINA YEPEZ REGISTERED NURSE]:</paragraph><paragraph>11/01: R CATARACT</paragraph> Encounters Start Date/Time End Date/Time Encounter Type Admission Type Attending [facility] Care Department Encounter ID Discharge Date Discharge Status Discharge Condition Discharge Reason Percent Goals Met 2024-09-19 00:00:00 2024-11-17 00:00:00 Outpatient RECERTIFIC ATION JESSIE MENJIVAR [facility] [id number] 22.22
--- OUTSIDE RECORDS SUMMARY | 2024-11-06 13:22 | XMS_ITS ---
Author Organization Unknown Address [address] [place] [phone] Phone Care Team Providers Care [employer] Taper Name Role Phone JERMAN Gordon Attending Unavailable [...]
--- OUTSIDE RECORDS SUMMARY | 2024-11-06 13:22 | XMS_ITS | Clinical Summary ---
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 Active 06-15 00:00: 00 USP (CURRENT) USE OF INSULIN Active 06-15 00:00: [...] 100 mg tablet 09-24 00:00: 00 Yes [id number] HYPERPHOSPH ATEMIA 1 tablet TWICE DAILY 1 tablet TWICE DAILY (route: oral) Med Classific ation: Gout and Hyperuric emia Therapy amiodarone 200 mg tablet 09-24 00:00: 00 Yes [id number] AFIB 1 tablet ONCE DAILY 1 tablet ONCE DAILY (route: oral) Med Classific ation: Cardiovas cular Therapy Agents atorvastati n 20 mg tablet 09-24 00:00: 00 Yes [id number] HIGH CHOLESTEROL 1 tablet ONCE DAILY 1 tablet ONCE DAILY (route: oral) Med Classific ation: Cardiovas cular Therapy Agents calcitriol 0.25 mcg capsule 09-24 00:00: 00 Yes [id number] SUPPLEMENT 1 capsule DIRECTED 1 capsule DIRECTED (route: oral) Med Classific ation: Electroly te Balance-N utritiona l Products carvedilol 12.5 mg tablet 09-24 00:00: 00 12-08 23:59 :00 No [id number] HYPERTENSIO N 1 tablet TWICE DAILY 1 tablet TWICE DAILY (route: oral) Med Classific ation: Cardiovas cular Therapy Agents Eliquis 5 mg tablet 09-24 00:00: 00 Yes [id number] AFIB 1 tablet TWICE DAILY 1 tablet TWICE DAILY (route: oral) Med Classific ation: Hematolog ical Agents fluticasone propionate 50 mcg/actuati on blister powder for inhalation 09-24 00:00: 00 Yes [id number] ALLERGIES 1 inhalat ion TWICE DAILY 1 inhalation TWICE DAILY (route: inhalation ) Med Classific ation: Respirato ry Therapy Agents gabapentin 100 mg capsule 09-24 00:00: 00 Yes [id number] NERVE PAIN 1 capsule TWICE DAILY 1 capsule TWICE DAILY (route: oral) Med Classific ation: Central Nervous System Agents insulin lispro (U-100) 100 unit/mL subcutaneou s pen 09-24 00:00: 00 04-11 23:59 :00 No [id number] TYPE TWO DIABETES 8 unit 3 TIMES DAILY 8 unit 3 TIMES DAILY (route: subcutaneo us) Alternate Route: SUBCUTANE OUS. Med Classific ation: Endocrine lactulose 10 gram/15 mL (15 mL) oral solution 09-24 00:00: 00 Yes [id number] CONSTIPATIO N 30 mL TWICE DAILY 30 mL TWICE DAILY (route: oral) Med Classific ation: Gastroint estinal Therapy Agents Lantus Solostar U-100 Insulin 100 unit/mL (3 mL) subcutaneou s pen 09-24 00:00: 00 03-02 23:59 :00 No [id number] TYPE 2 DIABETES 10 unit AT BEDTIME 10 unit AT BEDTIME (route: subcutaneo us) Alternate Route: SUBCUTANE OUS. Med Classific ation: Endocrine midodrine 10 mg tablet 09-24 00:00: 00 Yes [id number] REGULATE BLOOD PRESSURE 1 tablet 3 TIMES DAILY 1 tablet 3 TIMES DAILY (route: oral) Med Classific ation: Cardiovas cular Therapy Agents nystatin 100,000 unit/gram topical powder 09-24 00:00: 00 Yes [id number] MOISTURE TO SKIN FOLDS OF GROIN 1 gram TWICE DAILY 1 gram TWICE DAILY (route: topical) Med Classific ation: Dermatolo gical Protonix 40 mg tablet,ada yed release 09-24 00:00: 00 Yes [id number] REFLUX 1 tablet TWICE DAILY 1 tablet TWICE DAILY (route: oral) Med Classific ation: Gastroint estinal Therapy Agents Proventil HFA 90 mcg/actuati on aerosol inhaler 4-12 00:00: 00 Yes [id number] COUGH 1 puff EVERY 6 HOURS 1 puff EVERY 6 HOURS (route: inhalation ) Med Classific ation: Respirato ry Therapy Agents tramadol 50 mg tablet 4-12 00:00: 00 Yes [id number] PAIN 2 tablet EVERY 6 HOURS PRN 2 tablet EVERY 6 HOURS PRN (route: oral) Med Classific ation: Analgesic , Anti-infl ammatory or Antipyret ic Tylenol 325 mg tablet 412 00:00: 00 Yes [id number] PAIN 2 tablet EVERY 6 HOURS 2 tablet EVERY 6 HOURS (route: oral) Med Classific ation: Analgesic , Anti-infl ammatory or Antipyret ic carvedilol 25 mg tablet 12-10 00:00: 00 02-26 23:59 :00 No [id number] HYPERTENSIO N 1 tablet TWICE DAILY 1 tablet TWICE DAILY (route: oral) Med Classific ation: Cardiovas cular Therapy Agents sevelamer carbonate 800 mg tablet 8 00:00: 00 Yes [id number] ESRD 1 tablet 3 TIMES DAILY 1 tablet 3 TIMES DAILY (route: oral) Alternate Route: BY MOUTH. Med Classific ation: Genitouri nary Therapy Lantus Solostar U-100 Insulin 100 unit/mL (3 mL) subcutaneou s pen 03-02 00:00: 00 03-04 23:59 :00 No [id number] T2D 12 unit AT BEDTIME 12 unit AT BEDTIME (route: subcutaneo us) Med Classific ation: Endocrine Basaglar KwikPen U-100 Insulin 100 unit/mL (3 mL) subcutaneou s 03-04 00:00: 00 05-02 23:59 :00 No [id number] DIABETES MELLITUS TYPE TWO 18 unit AT BEDTIME 18 unit AT BEDTIME (route: subcutaneo us) Alternate Route: SUBCUTANE OUS. Med Classific ation: Endocrine benzonatate 200 mg capsule 2023-06 0-17 00:00: 00 04-05 23:59 :00 No [id number] COUGH 1 capsule 3 TIMES DAILY 1 capsule 3 TIMES DAILY (route: oral) Med Classific ation: Respirato ry Therapy Agents doxycycline hyclate 100 mg capsule 2023-06 0-17 00:00: 00 04-05 23:59 :00 No [id number] INFECTION PREVENTION 1 capsule TWICE DAILY 1 capsule TWICE DAILY (route: oral) Med Classific ation: Anti-Infe ctive Agents insulin lispro (U-100) 100 unit/mL subcutaneou s pen 2023-06 0- 00:00: 00 05-02 23:59 :00 No [id number] DIABETES MELLITUS 10 unit 3 TIMES DAILY 10 unit 3 TIMES DAILY (route: subcutaneo us) Med Classific ation: Endocrine Basaglar KwikPen U-100 Insulin 100 unit/mL (3 mL) subcutaneou s 2023-06 00:00: 00 09-13 23:59 :00 No [id number] DIABETES MELLITUS 24 unit AT BEDTIME 24 unit AT BEDTIME (route: subcutaneo us) Med Classific ation: Endocrine insulin lispro (U-100) 100 unit/mL subcutaneou s pen 2023-06 00:00: 00 Yes [id number] DIABETES MELLITUS 12 unit 3 TIMES DAILY 12 unit 3 TIMES DAILY (route: subcutaneo us) Med Classific ation: Endocrine carvedilol 25 mg tablet 2023-06 2-13 00:00: 00 Yes [id number] HYPERTENSIO N Per instruc tions DIRECTED Per instructio ns DIRECTED (route: oral) Med Classific ation: Cardiovas cular Therapy Agents bumetanide 1 mg tablet 17 00:00: 00 Yes [id number] FLUID OVERLOAD 1 tablet ONCE DAILY 1 tablet ONCE DAILY (route: oral) Alternate Route: BY MOUTH. Med Classific ation: Cardiovas cular Therapy Agents Nexium 24HR 20 mg capsule,del ayed release -17 00:00: 00 Yes [id number] GERD 1 capsule ONCE DAILY 1 capsule ONCE DAILY (route: oral) Alternate Route: BY MOUTH. Med Classific ation: Gastroint estinal Therapy Agents Basaglar KwikPen U-100 Insulin 100 unit/mL (3 mL) subcutaneou s 10-11 00:00: 00 Yes [id number] HYPERGLYCEM IA 30 unit AT BEDTIME 30 unit AT BEDTIME (route: subcutaneo us) Alternate Route: SUBCUTANE OUS. Med Classific ation: Endocrine bumetanide 1 mg tablet 10-11 00:00: 00 Yes [id number] FLUID OVERLOAD 1 tablet ONCE DAILY 1 tablet ONCE DAILY (route: oral) Alternate Route: BY MOUTH. Med Classific ation: Cardiovas cular Therapy Agents hydralazine 100 mg tablet 10-11 00:00: 00 Yes [id number] IF SYSTOLIC BP ABOVE 180 1 tablet [...] BREATH, OR FATIGUE.] Future Scheduled Test [facility] N[facility]SE TO INSTRUCT ON CHRONIC KIDNEY DISEASE ITS COMPLICATIONS, AND WHEN TO CONTACT THE AGENCY, PHYSICIAN OR 911 [code = HOME HEALTH NURSE TO INSTRUCT ON CHRONIC KIDNEY DISEASE ITS COMPLICATIONS, AND WHEN TO CONTACT THE AGENCY, PHYSICIAN OR 911] Future Scheduled Test [facility] NURSE WILL ASSESS FOR COMPLICATIONS RELATED [...] WILL BE ESTABLISHED THAT MEETS ALL PATIENT'S RESIDENTIAL NEEDS AND COUNTER SIGNED BY PHYSICIAN. Goal [...] End Date/Time Encounter Type Admission Type Attending [facility] Care Department Encounter ID Discharge Date Discharge Status Discharge Condition Discharge Reason Percent Goals Met 2024-09-19 00:00:00 2024-11-17 00:00:00 Outpatient RECERTIFIC ATION JESSIE MENJIVAR [facility] [id number] 22.22
--- NOTE | 2024-11-06 13:25 | ED.GENADULT ---
HPI - General Adult General Chief complaint: Recheck/Abnormal Lab/Rx Stated complaint: high blood pressure. Time Seen by Provider: 11/06/24 13:19 Source: patient Mode of arrival: EMS Limitations: no limitations History of Present Illness HPI narrative: Patient is a 53-year-old male with elevated blood pressure and lightheaded/ wooziness today at [facility]. He is a dialysis patient Thursday and Thursday. He missed his past Thursday but he did go Thursday. He may be having trouble tomorrow to get dialysis due to the holiday. He checked his blood pressure and he was running over 200s over 100s. He called EMS for ER evaluation. No chest pain or shortness of breath. Onset (ago): day(s) ( One) Location: head ( wooziness and lightheaded) Radiation: non-radiation Severity: mild Severity scale (1-10): 2 Quality: other ( no pain) Pain Consistency: intermittent and now resolved Relieving factors: none Exacerbating factors: other ( elevated blood pressure) Associated symptoms: denies other symptoms Treatments prior to arrival: other ( hydralazine 100 mg p.o.) Related Data Allergies Allergy/AdvReac Type Severity Reaction Status Date / Time amoxicillin Allergy Intermediate Hives Verified 11/06/24 13:29 Review of Systems Review of Systems: All systems reviewed & are unremarkable except as noted in HPI and below Constitutional: Constitutional: Reports no additional constitutional complaints Eyes: Eyes: Reports no additional eye complaints ENT: Reports system reviewed and no additional complaints, except as documented Cardiovascular: Cardiovascular: Reports no additional cardiovascular complaints Respiratory: Respiratory: Reports no additional respiratory complaints Gastrointestinal: Gastrointestinal: Reports no additional gastrointestinal complaints Genitourinary: Genitourinary: Reports no additional male genitourinary complaints Musculoskeletal: Musculoskeletal: Reports no additional musculoskeletal complaints Integumentary/Breasts: Skin/Breast: Reports system reviewed and no additional complaints, except as docu Neurologic: Reports system reviewed and no additional complaints, except as documented Psychiatric: Psychiatric: Reports no additional psychiatric complaints Endocrine: Endocrine: Reports no additional endocrine complaints Hematologic/Lymphatic: Hematologic/Lymphatic: Reports no additional hematologic/lymphatic complaints Allergic/Immunologic: Allergic/Immunologic: Reports no additional allergic/immunologic complaints PMFSH Past Medical History Medical History AV fistula Atrial fibrillation ESRD (end stage renal disease) Diabetes mellitus Hypertension Social History Social History Social History: ex-smoker Exam Const: General: healthy appearing Nutritional Appearance: well nourished Orientation/consciousness: patient oriented x3 Limitations: no limitations HENMT: Head: normal to inspection Ears: external ears normal Face/Nose/Sinus: Normal external nose present Eyes: Conjunctivae: conjunctivae normal Pupils: Equal, round and reactive pupils present EOM: EOMs intact bilaterally Neck: Neck: normal visual inspection Chest: Chest palpation & inspection: normal inspection of the chest Resp: Effort & Inspection: normal respiratory effort and not labored Auscultation: clear to auscultation bilaterally and no crackles Cardio: Rate: regular rate Rhythm: regular rhythm Heart sounds: no murmurs GI: Inspection: non-distended GI Palp: Yes Soft to palpation and No Tenderness to palpation present (GI) Auscultation: normal bowel sounds : General: Yes bladder normal to palpation Back/Spine/Pelvis: Back: no CVA tenderness Skin: General skin exam: normal color Rashes: no rashes Wounds: no wounds Neuro: General: patient oriented x3 Cranial nerves: Yes Nystagmus not present Speech: normal speech Extrem: General: normal to inspection Psych: Mental Status: mental status grossly normal Affect: normal affect Attitude: cooperative Course Vital Signs Vital signs: Vital Signs Temperature 37.1 C 11/06/24 13:18 Pulse Rate 92 11/06/24 13:18 Respiratory Rate 16 11/06/24 13:18 Blood Pressure 202/97 H 11/06/24 13:18 Pulse Oximetry 98 11/06/24 13:18 Temperature 37.1 C 11/06/24 13:18 Pulse Rate 92 11/06/24 13:18 Respiratory Rate 16 11/06/24 13:18 Blood Pressure 202/97 H 11/06/24 13:18 Pulse Oximetry 98 11/06/24 13:18 Medical Decision Making [facility] Narrative Medical decision making narrative: patient is a 53-year-old male with elevated blood pressure and lightheaded wooziness. We will treat accordingly for the blood pressure control. We will check labs. We will check EKG. there is slightly elevated phosphorus will be solved during dialysis tomorrow. Vital Signs Vital Signs: Vital Signs Temperature 37.1 C 11/06/24 13:18 Pulse Rate 92 11/06/24 13:18 Respiratory Rate 16 11/06/24 13:18 Blood Pressure 202/97 H 11/06/24 13:18 Pulse Oximetry 98 11/06/24 13:18 Temperature 37.1 C 11/06/24 13:18 Pulse Rate 92 11/06/24 13:18 Respiratory Rate 16 11/06/24 13:18 Blood Pressure 202/97 H 11/06/24 13:18 Pulse Oximetry 98 11/06/24 13:18 Lab Data Lab results reviewed: Yes I reviewed the patient's lab results. 11/06/24 13:42 11/06/24 13:42 Labs: Lab Results 11/06/24 Range/Units 13:42 WBC 5.9 (4.8-10.8) K/mm3 RBC 3.47 L (4.70-6.10) M/mm3 Hgb 11.3 L (14.0-18.0) g/dL Hct 35.5 L (40.0-54.0) % MCV 102.3 H (78.0-102.0) fL MCH 32.6 H (27.0-31.0) pg MCHC 31.8 L (32-36) g/dL RDW 13.5 (11.6-14.4) % Plt Count 196 (150-420) K/mm3 MPV 9.6 (8.7-11.0) fl Immature Gran % (Auto) 1.2 H (0.0-0.0) % Neut % (Auto) 72.2 H (50.0-70.0) % Lymph % (Auto) 18.7 (18.0-42.0) % [place] % (Auto) 5.3 (2.0-11.0) % Eos % (Auto) 1.7 (1.0-6.0) % Baso % (Auto) 0.9 (0.0-1.0) % Lymph # (Auto) 1.10 (1.10-4.50) K/mm3 [place] # (Auto) 0.31 (0.10-0.90) K/mm3 Eos # (Auto) 0.10 (0.02-0.50) K/mm3 Baso # (Auto) 0.05 (0.00-0.10) K/mm3 Abs Immat Gran (auto) 0.07 H (0.00-0.00) K/mm3 Absolute Neuts (auto) 4.24 (1.70-7.20) K/mm3 Absolute Nucleated RBC 0.00 (0.00-0.00) K/mm3 Nucleated RBC % 0.0 (0-0.0) % Sodium 138 (137-145) mmol/L Potassium 3.7 (3.4-5.0) mmol/L Chloride 101 (98-107) mmol/L Carbon Dioxide 27 (22-30) mmol/L Anion Gap 10 (4-12) mmol/L BUN 37 H (9-20) mg/dL Creatinine 5.65 H (0.7-1.3) mg/dL Estim Creat Clear Calc 20 ml/min Estimated GFR 11 L (59 - ) Glucose 335 H (65-110) mg/dL Calculated Osmolality 307 H (285-295) mOsm/kg Calcium 8.7 (8.4-10.2) mg/dL Phosphorus 6.2 H (2.5-4.5) mg/dL Magnesium 1.5 L (1.6-2.3) mg/dL Total Bilirubin 0.6 (0.2-1.3) mg/dL AST 28 (17-59) U/L ALT 18 (6-50) U/L Alkaline Phosphatase 56 (38-126) U/L Troponin I 0.032 (0.000-0.034) ng/mL Total Protein 7.9 (6.3-8.2) g/dL Albumin 4.1 (3.5-5.1) g/dL ECG Data EKG #1: Attestation: I personally reviewed and interpreted this ECG as follows: ECG completion date: 11/06/24 ECG completion time: 13:50 EKG Interpretation: normal rate, sinus rhythm, no ectopy, non-specific ST changes, normal QRS, normal QT and left axis Discharge Plan Discharge Clinical Impression: Hypertensive urgency, ESRD (end stage renal disease), Hypomagnesemia Patient Disposition: Home Condition: Improved Instructions: Hypertension (ED) Patient Language: Frisian Prescriptions: New hydralazine 25 mg tablet 25 mg PO BID Qty: 20 0RF Follow-up/Referrals: Hans,Mery Tsai MD [Primary Care Provider] - Time of Disposition: 15:25
[2024-11-06] MEDS: hydrALAZINE HCL 20 MG/ML VIAL 10 MG IV PUSH ×2 (13:41→15:10)
[2024-11-06 13:53] LABS: Basophils Absolute Auto 0.05 K/mm3 (0.00-0.10); Basophils Percent Auto 0.9 % (0.0-1.0); Eosinophils Percent Auto 1.7 % (1.0-6.0); Hematocrit 35.5 % (40.0-54.0); Hemoglobin 11.3 g/dL (14.0-18.0); Immature Granulocyte Absolute 0.07 K/mm3 (0.00-0.00); Immature Granulocyte Percent A 1.2 % (0.0-0.0); Lymphocytes Percent Auto 18.7 % (18.0-42.0); Mean Corpuscular HGB Conc 31.8 g/dL (32-36); Mean Corpuscular Hemoglobin 32.6 pg (27.0-31.0); Mean Corpuscular Volume 102.3 fL (78.0-102.0); Mean Platelet Volume 9.6 fl (8.7-11.0); Monocytes Absolute Auto 0.31 K/mm3 (0.10-0.90); Monocytes Percent Auto 5.3 % (2.0-11.0); Neutrophils Absolute Auto 4.24 K/mm3 (1.70-7.20); Neutrophils Percent Auto 72.2 % (50.0-70.0); Platelet Count Result 196 K/mm3 (150-420); Red Blood Count 3.47 M/mm3 (4.70-6.10); Red Cell Distribution Width 13.5 % (11.6-14.4); White Blood Count 5.9 K/mm3 (4.8-10.8)
[2024-11-06 14:07] LABS: Alanine Aminotransferase 18 U/L (6-50); Albumin Level 4.1 g/dL (3.5-5.1); Alkaline Phosphatase 56 U/L (38-126); Anion Gap 10 mmol/L (4-12); Aspartate Amino Transferase 28 U/L (17-59); Bilirubin,Total 0.6 mg/dL (0.2-1.3); Blood Urea Nitrogen 37 mg/dL (9-20); Calcium 8.7 mg/dL (8.4-10.2); Carbon Dioxide 27 mmol/L (22-30); Chloride 101 mmol/L (98-107); Estimated CRCL calculation 20 ml/min; Estimated Glomerular Filt Rate 11; Glucose 335 mg/dL (65-110); Magnesium 1.5 mg/dL (1.6-2.3); Osmolality Calculated 307 mOsm/kg (285-295); Phosphorus 6.2 mg/dL (2.5-4.5); Potassium 3.7 mmol/L (3.4-5.0); Sodium 138 mmol/L (137-145); Total Protein 7.9 g/dL (6.3-8.2)
[2024-11-06 14:19] LABS: Troponin I 0.032 ng/mL (0.000-0.034)
--- OUTSIDE RECORDS SUMMARY | 2024-11-06 14:23 | XMS_ITS | Clinical Summary ---
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 Active 06-15 00:00: 00 NURSING HOME (CURRENT) USE OF INSULIN Active 06-15 00:00: [...] 100 mg tablet 09-24 00:00: 00 Yes [id number] HYPERPHOSPH ATEMIA 1 tablet TWICE DAILY 1 tablet TWICE DAILY (route: oral) Med Classific ation: Gout and Hyperuric emia Therapy amiodarone 200 mg tablet 09-24 00:00: 00 Yes [id number] AFIB 1 tablet ONCE DAILY 1 tablet ONCE DAILY (route: oral) Med Classific ation: Cardiovas cular Therapy Agents atorvastati n 20 mg tablet 09-24 00:00: 00 Yes [id number] HIGH CHOLESTEROL 1 tablet ONCE DAILY 1 tablet ONCE DAILY (route: oral) Med Classific ation: Cardiovas cular Therapy Agents calcitriol 0.25 mcg capsule 09-24 00:00: 00 Yes [id number] SUPPLEMENT 1 capsule DIRECTED 1 capsule DIRECTED (route: oral) Med Classific ation: Electroly te Balance-N utritiona l Products carvedilol 12.5 mg tablet 09-24 00:00: 00 12-08 23:59 :00 No [id number] HYPERTENSIO N 1 tablet TWICE DAILY 1 tablet TWICE DAILY (route: oral) Med Classific ation: Cardiovas cular Therapy Agents Eliquis 5 mg tablet 09-24 00:00: 00 Yes [id number] AFIB 1 tablet TWICE DAILY 1 tablet TWICE DAILY (route: oral) Med Classific ation: Hematolog ical Agents fluticasone propionate 50 mcg/actuati on blister powder for inhalation 09-24 00:00: 00 Yes [id number] ALLERGIES 1 inhalat ion TWICE DAILY 1 inhalation TWICE DAILY (route: inhalation ) Med Classific ation: Respirato ry Therapy Agents gabapentin 100 mg capsule 09-24 00:00: 00 Yes [id number] NERVE PAIN 1 capsule TWICE DAILY 1 capsule TWICE DAILY (route: oral) Med Classific ation: Central Nervous System Agents insulin lispro (U-100) 100 unit/mL subcutaneou s pen 09-24 00:00: 00 04-11 23:59 :00 No [id number] TYPE TWO DIABETES 8 unit 3 TIMES DAILY 8 unit 3 TIMES DAILY (route: subcutaneo us) Alternate Route: SUBCUTANE OUS. Med Classific ation: Endocrine lactulose 10 gram/15 mL (15 mL) oral solution 09-24 00:00: 00 Yes [id number] CONSTIPATIO N 30 mL TWICE DAILY 30 mL TWICE DAILY (route: oral) Med Classific ation: Gastroint estinal Therapy Agents Lantus Solostar U-100 Insulin 100 unit/mL (3 mL) subcutaneou s pen 09-24 00:00: 00 03-02 23:59 :00 No [id number] TYPE 2 DIABETES 10 unit AT BEDTIME 10 unit AT BEDTIME (route: subcutaneo us) Alternate Route: SUBCUTANE OUS. Med Classific ation: Endocrine midodrine 10 mg tablet 09-24 00:00: 00 Yes [id number] REGULATE BLOOD PRESSURE 1 tablet 3 TIMES DAILY 1 tablet 3 TIMES DAILY (route: oral) Med Classific ation: Cardiovas cular Therapy Agents nystatin 100,000 unit/gram topical powder 09-24 00:00: 00 Yes [id number] MOISTURE TO SKIN FOLDS OF GROIN 1 gram TWICE DAILY 1 gram TWICE DAILY (route: topical) Med Classific ation: Dermatolo gical Protonix 40 mg tablet,ada yed release 09-24 00:00: 00 Yes [id number] REFLUX 1 tablet TWICE DAILY 1 tablet TWICE DAILY (route: oral) Med Classific ation: Gastroint estinal Therapy Agents Proventil HFA 90 mcg/actuati on aerosol inhaler 4-12 00:00: 00 Yes [id number] COUGH 1 puff EVERY 6 HOURS 1 puff EVERY 6 HOURS (route: inhalation ) Med Classific ation: Respirato ry Therapy Agents tramadol 50 mg tablet 4-12 00:00: 00 Yes [id number] PAIN 2 tablet EVERY 6 HOURS PRN 2 tablet EVERY 6 HOURS PRN (route: oral) Med Classific ation: Analgesic , Anti-infl ammatory or Antipyret ic Tylenol 325 mg tablet 412 00:00: 00 Yes [id number] PAIN 2 tablet EVERY 6 HOURS 2 tablet EVERY 6 HOURS (route: oral) Med Classific ation: Analgesic , Anti-infl ammatory or Antipyret ic carvedilol 25 mg tablet 12-10 00:00: 00 02-26 23:59 :00 No [id number] HYPERTENSIO N 1 tablet TWICE DAILY 1 tablet TWICE DAILY (route: oral) Med Classific ation: Cardiovas cular Therapy Agents sevelamer carbonate 800 mg tablet 8 00:00: 00 Yes [id number] ESRD 1 tablet 3 TIMES DAILY 1 tablet 3 TIMES DAILY (route: oral) Alternate Route: BY MOUTH. Med Classific ation: Genitouri nary Therapy Lantus Solostar U-100 Insulin 100 unit/mL (3 mL) subcutaneou s pen 03-02 00:00: 00 03-04 23:59 :00 No [id number] T2D 12 unit AT BEDTIME 12 unit AT BEDTIME (route: subcutaneo us) Med Classific ation: Endocrine Basaglar KwikPen U-100 Insulin 100 unit/mL (3 mL) subcutaneou s 03-04 00:00: 00 05-02 23:59 :00 No [id number] DIABETES MELLITUS TYPE TWO 18 unit AT BEDTIME 18 unit AT BEDTIME (route: subcutaneo us) Alternate Route: SUBCUTANE OUS. Med Classific ation: Endocrine benzonatate 200 mg capsule 2023-06 0-17 00:00: 00 04-05 23:59 :00 No [id number] COUGH 1 capsule 3 TIMES DAILY 1 capsule 3 TIMES DAILY (route: oral) Med Classific ation: Respirato ry Therapy Agents doxycycline hyclate 100 mg capsule 2023-06 0-17 00:00: 00 04-05 23:59 :00 No [id number] INFECTION PREVENTION 1 capsule TWICE DAILY 1 capsule TWICE DAILY (route: oral) Med Classific ation: Anti-Infe ctive Agents insulin lispro (U-100) 100 unit/mL subcutaneou s pen 2023-06 0- 00:00: 00 05-02 23:59 :00 No [id number] DIABETES MELLITUS 10 unit 3 TIMES DAILY 10 unit 3 TIMES DAILY (route: subcutaneo us) Med Classific ation: Endocrine Basaglar KwikPen U-100 Insulin 100 unit/mL (3 mL) subcutaneou s 2023-06 00:00: 00 09-13 23:59 :00 No [id number] DIABETES MELLITUS 24 unit AT BEDTIME 24 unit AT BEDTIME (route: subcutaneo us) Med Classific ation: Endocrine insulin lispro (U-100) 100 unit/mL subcutaneou s pen 2023-06 00:00: 00 Yes [id number] DIABETES MELLITUS 12 unit 3 TIMES DAILY 12 unit 3 TIMES DAILY (route: subcutaneo us) Med Classific ation: Endocrine carvedilol 25 mg tablet 2023-06 2-13 00:00: 00 Yes [id number] HYPERTENSIO N Per instruc tions DIRECTED Per instructio ns DIRECTED (route: oral) Med Classific ation: Cardiovas cular Therapy Agents bumetanide 1 mg tablet 17 00:00: 00 Yes [id number] FLUID OVERLOAD 1 tablet ONCE DAILY 1 tablet ONCE DAILY (route: oral) Alternate Route: BY MOUTH. Med Classific ation: Cardiovas cular Therapy Agents Nexium 24HR 20 mg capsule,del ayed release -17 00:00: 00 Yes [id number] GERD 1 capsule ONCE DAILY 1 capsule ONCE DAILY (route: oral) Alternate Route: BY MOUTH. Med Classific ation: Gastroint estinal Therapy Agents Basaglar KwikPen U-100 Insulin 100 unit/mL (3 mL) subcutaneou s 10-11 00:00: 00 Yes [id number] HYPERGLYCEM IA 30 unit AT BEDTIME 30 unit AT BEDTIME (route: subcutaneo us) Alternate Route: SUBCUTANE OUS. Med Classific ation: Endocrine bumetanide 1 mg tablet 10-11 00:00: 00 Yes [id number] FLUID OVERLOAD 1 tablet ONCE DAILY 1 tablet ONCE DAILY (route: oral) Alternate Route: BY MOUTH. Med Classific ation: Cardiovas cular Therapy Agents hydralazine 100 mg tablet 10-11 00:00: 00 Yes [id number] IF SYSTOLIC BP ABOVE 180 1 tablet [...] BREATH, OR FATIGUE.] [facility] TO INSTRUCT ON CHRONIC KIDNEY DISEASE ITS COMPLICATIONS, AND WHEN TO CONTACT THE AGENCY, PHYSICIAN OR 911 [code = HOME HEALTH NURSE TO INSTRUCT ON CHRONIC KIDNEY DISEASE ITS COMPLICATIONS, AND WHEN TO CONTACT THE AGENCY, PHYSICIAN OR 911] Future Scheduled [facility] WILL ASSESS FOR COMPLICATIONS [...] SNF NEEDS AND COUNTER SIGNED BY PHYSICIAN. Goal [...] End Date/Time Encounter Type Admission Type Attending [facility] Care Department Encounter ID Discharge Date Discharge Status Discharge Condition Discharge Reason Percent Goals Met 2024-09-19 00:00:00 2024-11-17 00:00:00 Outpatient RECERTIFIC ATION JESSIE MENJIVAR [facility] [id number] 22.22
--- OUTSIDE RECORDS SUMMARY | 2024-11-06 14:24 | XMS_ITS ---
Author Organization Unknown Address [address] [place] [address] [phone] Phone Care Team Providers Care Locker Room Attendant Name Role Phone JERMAN Gordon Attending Unavailable [...]
--- OUTSIDE RECORDS SUMMARY | 2024-11-06 14:24 | XMS_ITS | Clinical Summary ---
Author Organization Unknown Care Team Providers Care Financial Administrative Assistant Name Role Phone JERMAN ANN, RIMA Unavailable Unavailable OTTO REGISTERED NURSE, JESSIE Unavailable Unavailable Payers Payer Name Policy Type Policy Number Effective Date Expira tion Date MEDICARE [place] - EPISODIC [id number] Problems Condition Name Condition Details Condition Category [...] 00:00: 00 ATHSCL HEART DISEASE OF [place] CORONARY ARTERY W/O ANG PCTRS Active 06-15 [...] CONSTIPATION , UNSPECIFIED Active 06-15 00:00: 00 WHEAT WASHER (CURRENT) USE OF ANTICOAGULAN TS Active 06-15 00:00: 00 CORRECTION (CURRENT) USE OF INSULIN Active 06-15 00:00: [...] 100 mg tablet 09-24 00:00: 00 Yes [id number] HYPERPHOSPH ATEMIA 1 tablet TWICE DAILY 1 tablet TWICE DAILY (route: oral) Med Classific ation: Gout and Hyperuric emia Therapy amiodarone 200 mg tablet 09-24 00:00: 00 Yes [id number] AFIB 1 tablet ONCE DAILY 1 tablet ONCE DAILY (route: oral) Med Classific ation: Cardiovas cular Therapy Agents atorvastati n 20 mg tablet 09-24 00:00: 00 Yes [id number] HIGH CHOLESTEROL 1 tablet ONCE DAILY 1 tablet ONCE DAILY (route: oral) Med Classific ation: Cardiovas cular Therapy Agents calcitriol 0.25 mcg capsule 09-24 00:00: 00 Yes [id number] SUPPLEMENT 1 capsule DIRECTED 1 capsule DIRECTED (route: oral) Med Classific ation: Electroly te Balance-N utritiona l Products carvedilol 12.5 mg tablet 09-24 00:00: 00 12-08 23:59 :00 No [id number] HYPERTENSIO N 1 tablet TWICE DAILY 1 tablet TWICE DAILY (route: oral) Med Classific ation: Cardiovas cular Therapy Agents Eliquis 5 mg tablet 09-24 00:00: 00 Yes [id number] AFIB 1 tablet TWICE DAILY 1 tablet TWICE DAILY (route: oral) Med Classific ation: Hematolog ical Agents fluticasone propionate 50 mcg/actuati on blister powder for inhalation 09-24 00:00: 00 Yes [id number] ALLERGIES 1 inhalat ion TWICE DAILY 1 inhalation TWICE DAILY (route: inhalation ) Med Classific ation: Respirato ry Therapy Agents gabapentin 100 mg capsule 09-24 00:00: 00 Yes [id number] NERVE PAIN 1 capsule TWICE DAILY 1 capsule TWICE DAILY (route: oral) Med Classific ation: Central Nervous System Agents insulin lispro (U-100) 100 unit/mL subcutaneou s pen 09-24 00:00: 00 04-11 23:59 :00 No [id number] TYPE TWO DIABETES 8 unit 3 TIMES DAILY 8 unit 3 TIMES DAILY (route: subcutaneo us) Alternate Route: SUBCUTANE OUS. Med Classific ation: Endocrine lactulose 10 gram/15 mL (15 mL) oral solution 09-24 00:00: 00 Yes [id number] CONSTIPATIO N 30 mL TWICE DAILY 30 mL TWICE DAILY (route: oral) Med Classific ation: Gastroint estinal Therapy Agents Lantus Solostar U-100 Insulin 100 unit/mL (3 mL) subcutaneou s pen 09-24 00:00: 00 03-02 23:59 :00 No [id number] TYPE 2 DIABETES 10 unit AT BEDTIME 10 unit AT BEDTIME (route: subcutaneo us) Alternate Route: SUBCUTANE OUS. Med Classific ation: Endocrine midodrine 10 mg tablet 09-24 00:00: 00 Yes [id number] REGULATE BLOOD PRESSURE 1 tablet 3 TIMES DAILY 1 tablet 3 TIMES DAILY (route: oral) Med Classific ation: Cardiovas cular Therapy Agents nystatin 100,000 unit/gram topical powder 09-24 00:00: 00 Yes [id number] MOISTURE TO SKIN FOLDS OF GROIN 1 gram TWICE DAILY 1 gram TWICE DAILY (route: topical) Med Classific ation: Dermatolo gical Protonix 40 mg tablet,ada yed release 09-24 00:00: 00 Yes [id number] REFLUX 1 tablet TWICE DAILY 1 tablet TWICE DAILY (route: oral) Med Classific ation: Gastroint estinal Therapy Agents Proventil HFA 90 mcg/actuati on aerosol inhaler 4-12 00:00: 00 Yes [id number] COUGH 1 puff EVERY 6 HOURS 1 puff EVERY 6 HOURS (route: inhalation ) Med Classific ation: Respirato ry Therapy Agents tramadol 50 mg tablet 4-12 00:00: 00 Yes [id number] PAIN 2 tablet EVERY 6 HOURS PRN 2 tablet EVERY 6 HOURS PRN (route: oral) Med Classific ation: Analgesic , Anti-infl ammatory or Antipyret ic Tylenol 325 mg tablet 412 00:00: 00 Yes [id number] PAIN 2 tablet EVERY 6 HOURS 2 tablet EVERY 6 HOURS (route: oral) Med Classific ation: Analgesic , Anti-infl ammatory or Antipyret ic carvedilol 25 mg tablet 12-10 00:00: 00 02-26 23:59 :00 No [id number] HYPERTENSIO N 1 tablet TWICE DAILY 1 tablet TWICE DAILY (route: oral) Med Classific ation: Cardiovas cular Therapy Agents sevelamer carbonate 800 mg tablet 8 00:00: 00 Yes [id number] ESRD 1 tablet 3 TIMES DAILY 1 tablet 3 TIMES DAILY (route: oral) Alternate Route: BY MOUTH. Med Classific ation: Genitouri nary Therapy Lantus Solostar U-100 Insulin 100 unit/mL (3 mL) subcutaneou s pen 03-02 00:00: 00 03-04 23:59 :00 No [id number] T2D 12 unit AT BEDTIME 12 unit AT BEDTIME (route: subcutaneo us) Med Classific ation: Endocrine Basaglar KwikPen U-100 Insulin 100 unit/mL (3 mL) subcutaneou s 03-04 00:00: 00 05-02 23:59 :00 No [id number] DIABETES MELLITUS TYPE TWO 18 unit AT BEDTIME 18 unit AT BEDTIME (route: subcutaneo us) Alternate Route: SUBCUTANE OUS. Med Classific ation: Endocrine benzonatate 200 mg capsule 2023-06 0-17 00:00: 00 04-05 23:59 :00 No [id number] COUGH 1 capsule 3 TIMES DAILY 1 capsule 3 TIMES DAILY (route: oral) Med Classific ation: Respirato ry Therapy Agents doxycycline hyclate 100 mg capsule 2023-06 0-17 00:00: 00 04-05 23:59 :00 No [id number] INFECTION PREVENTION 1 capsule TWICE DAILY 1 capsule TWICE DAILY (route: oral) Med Classific ation: Anti-Infe ctive Agents insulin lispro (U-100) 100 unit/mL subcutaneou s pen 2023-06 0- 00:00: 00 05-02 23:59 :00 No [id number] DIABETES MELLITUS 10 unit 3 TIMES DAILY 10 unit 3 TIMES DAILY (route: subcutaneo us) Med Classific ation: Endocrine Basaglar KwikPen U-100 Insulin 100 unit/mL (3 mL) subcutaneou s 2023-06 00:00: 00 09-13 23:59 :00 No [id number] DIABETES MELLITUS 24 unit AT BEDTIME 24 unit AT BEDTIME (route: subcutaneo us) Med Classific ation: Endocrine insulin lispro (U-100) 100 unit/mL subcutaneou s pen 2023-06 00:00: 00 Yes [id number] DIABETES MELLITUS 12 unit 3 TIMES DAILY 12 unit 3 TIMES DAILY (route: subcutaneo us) Med Classific ation: Endocrine carvedilol 25 mg tablet 2023-06 2-13 00:00: 00 Yes [id number] HYPERTENSIO N Per instruc tions DIRECTED Per instructio ns DIRECTED (route: oral) Med Classific ation: Cardiovas cular Therapy Agents bumetanide 1 mg tablet 17 00:00: 00 Yes [id number] FLUID OVERLOAD 1 tablet ONCE DAILY 1 tablet ONCE DAILY (route: oral) Alternate Route: BY MOUTH. Med Classific ation: Cardiovas cular Therapy Agents Nexium 24HR 20 mg capsule,del ayed release -17 00:00: 00 Yes [id number] GERD 1 capsule ONCE DAILY 1 capsule ONCE DAILY (route: oral) Alternate Route: BY MOUTH. Med Classific ation: Gastroint estinal Therapy Agents Basaglar KwikPen U-100 Insulin 100 unit/mL (3 mL) subcutaneou s 10-11 00:00: 00 Yes [id number] HYPERGLYCEM IA 30 unit AT BEDTIME 30 unit AT BEDTIME (route: subcutaneo us) Alternate Route: SUBCUTANE OUS. Med Classific ation: Endocrine bumetanide 1 mg tablet 10-11 00:00: 00 Yes [id number] FLUID OVERLOAD 1 tablet ONCE DAILY 1 tablet ONCE DAILY (route: oral) Alternate Route: BY MOUTH. Med Classific ation: Cardiovas cular Therapy Agents hydralazine 100 mg tablet 10-11 00:00: 00 Yes [id number] IF SYSTOLIC BP ABOVE 180 1 tablet [...] BREATH, OR FATIGUE.] [facility] CHRONIC KIDNEY DISEASE ITS COMPLICATIONS, AND WHEN TO CONTACT THE AGENCY, PHYSICIAN OR 911 [code = HOME HEALTH NURSE TO INSTRUCT ON CHRONIC KIDNEY DISEASE ITS COMPLICATIONS, AND WHEN TO CONTACT THE AGENCY, PHYSICIAN OR 911] Future Scheduled [facility] WILL ASSESS FOR COMPLICATIONS [...] WILL BE ESTABLISHED THAT MEETS ALL PATIENT'S [facility] NEEDS AND COUNTER SIGNED BY PHYSICIAN. Goal [...] End Date/Time Encounter Type Admission Type Attending [facility] Care Department Encounter ID Discharge Date Discharge Status Discharge Condition Discharge Reason Percent Goals Met 2024-09-19 00:00:00 2024-11-17 00:00:00 Outpatient RECERTIFIC ATION JESSIE MENJIVAR [facility] [id number] 22.22
[2024-11-06] MEDS: MAGNESIUM SULF 2 GM/WATER 50ML 2 GM/50 ML BAG IVPB (14:25)
[2024-11-06] MEDS: hydrALAZINE HCL 25 MG TABLET PO (15:10)
--- NOTE | 2024-11-06 16:08 | PC.NURSE ---
ERP states patient is ready for discharge, blood pressure has been steadily lower than arrival.
== END 2024-11-06 16:12 | disposition home or self-care (01) ==
PROVIDERS: Emergency Provider Emergency Medicine; PCP Family Medicine
DX: E83.42 Hypomagnesemia (principal); E11.22 Type 2 diabetes mellitus with diabetic chronic kidney disease; I12.0 Hypertensive chronic kidney disease with stage 5 chronic kidney disease or end stage renal disease; N18.6 End stage renal disease; I48.91 Unspecified atrial fibrillation; Z87.891 Personal history of nicotine dependence
CPT/HCPCS: 36415; 80053; 83735; 84100; 84484; 85025; 93005; 96365; 96375; 96376; 99284; A9270; J0360; J3475

== ENCOUNTER 2025-01-30 20:27 | Emergency (ER) | payer MEDICARE, MEDICAID, SELFPAY ==
[2025-01-30] VITALS (7 sets, daily range): BP systolic 129–138; BP diastolic 69–85; PULSE 87–93; RESP 18–20; TEMP 36.9; O2SAT 92–95
--- OUTSIDE RECORDS SUMMARY | 2025-01-30 20:29 | XMS_ITS | Encounter Summary ---
Author Organization [facility] Address [address] [place] [id number] Care Team Providers Care Marketing Development Representative Name Role Phone Mery Maxwell MD Primary Care Provider [phone] Rohit Butcher MD Unavailable [phone] Encounter Details Date Type Department Care Team (Late st Contact Info) Description 01/18/2025 Results Follow-Up [facility] [place] [address] Mirela Mosley MA LIPID PANEL Social History Tobacco Use Types Packs/Day Years Used Date Smoking Tobacco: Former Cigarettes 1 15 Smokeless Tobacco: Never Alcohol Use Standard Drinks/Week Comments Not Currently 0 (1 standard drink = 0.6 oz pur e alcohol) [facility] Utilities Answer Date Recorded In the [...] any time in the past 12 m [facility], were you homeless or living in a group home (including now)? No 03/28/2024 Sex and Gender Information Value Date Recorded Sex Assigned at Male 07/22/2024 12:34 PM DATA ENTRY ANALYST Legal Sex Male 6:24 PM CDT Gender Identity Not on file Sexual Orientation Not on file documented as of this encounter Functional Status * Are you deaf or do you have serious difficulty hearing Answer Date of Assessment Author Status No 03/28/2024 5:25 PM CDT Mercado, Zareth, RN Active * Are you blind or do you have serious difficulty seeing, even when wearing glasses? Answer Date of Assessment Author Status No 03/28/2024 5:25 PM Christina Avila RN Active * Do you have serious difficulty walking or climbing stairs? Answer Date of Assessment Author Status Yes 03/28/2024 5:25 PM Christina Avila RN Active * Do you have difficulty dressing or bathing? Answer Date of Assessment Author Status Yes 03/28/2024 5:25 PM Christina Avila RN Active * Because of a physical, mental, or emotional condition, do you have difficulty doing errands alone such as visiting a doctor's office or shopping? Answer Date of Assessment Author Status Yes 03/28/2024 5:25 PM Crhistina Avila RN Active documented as of this encounter Mental Status * Because of a physical, mental, or emotional condition, do you have serious difficulty concentrating, remembering, or making decisions? Answer Entry Date Author Status No 03/28/2024 5:25 PM Christina Avila RN Active documented in this encounter Plan of Treatment Upcoming Encounters Date Type Department Care Team (Late st Contact Info) Description 05/04/2025 1:30 PM DATA ENTRY ANALYST [facility] [address] [place] [phone] Ariana Walsh APRN, ASSOCIATE ARTISTIC DIRECTOR-C [address] [facility] [address] [place] [phone] documented as of this encounter Goals Goal Patient Goal Type Associated Problems Recent Progress Patient-Stated? 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 RN documented as of this encounter Visit Diagnoses Not on filedocumented in this encounter Care Teams Marketing Development Representative Relationship Specialty Start Date End Date Mery Maxwell MD [address] [place] [place] [phone] PCP - General FAMILY PRACTICE 08/19/23 Rohit Butcher MD [address] [facility] [address] [place] [address] Physician INTERVENTIONAL CARDIOLOGY 11/08/24 documented as of this encounter
--- OUTSIDE RECORDS SUMMARY | 2025-01-30 20:29 | XMS_ITS | Clinical Summary ---
Author Organization [facility] Address [address] [place] [address] Care Team Providers Care Hvac Service Technician Name Role Phone Mery Maxwell MD Primary Care Provider [phone] Rohit Butcher MD Unavailable [phone] Allergies Active Allergy Reactions Criticality Noted Date Comments Amoxicillin Hives 08/19/2023 Medications allopurinol (ZYLOPRIM) 100 MG tablet Take 1 tablet (100 mg total) by mouth 2 (two) times daily. 4 Active ELIQUIS 5 MG tablet Take 1 tablet (5 mg total) by mouth 2 (two) times daily. 4 Active atorvastatin (LIPITOR) 20 MG tablet Take 1 tablet (20 mg total) by mouth daily. 4 Active gabapentin (NEURONTIN) 100 MG capsule Take 1 capsule (100 mg total) by mouth 2 (two) times a day. 4 Active LANTUS SOLOSTAR 100 UNIT/ML injection (PEN) Inject 17 Units into the skin nightly at bedtime. 4 Active insulin lispro, 1 Unit Dial, (HUMALOG) 100 UNIT/ML injection (PEN) Inject 10 Units into the skin 3 (three) times daily before meals. 3 Active traMADol (ULTRAM) 50 MG tabletIndication s:Acute Pain < 7 Day Supply Indications: Acute Pain < 7 Day Supply 1-2 every 6 hours as needed for pain 20 tablet 4 Active amiodarone (PACERONE) 200 MG tablet Take 0.5 tablets (100 mg total) by mouth daily. 30 tablet 11 4 Active B-D UF III MINI PEN NEEDLES 31G X 5 MM [facility] 4 Active BD VEO INSULIN SYRINGE U/F 31G X 15/64 0.5 ML [facility] 4 Active TRUE METRIX BLOOD GLUCOSE TEST test strip use 1 strip to check glucose three times daily 4 Active pantoprazole EC (PROTONIX) 40 MG tablet Take 1 tablet (40 mg total) by mouth 2 (two) times a day. 4 Active sevelamer carbonate (RENVELA) 800 MG tablet Take 1 tablet (800 mg total) by mouth 3 (three) times daily with meals. 4 Active Continuous Glucose Transmitter (DEXCOM G6 TRANSMITTER) [facility] 4 Active FIASP PENFILL 100 UNIT/ML Solution Cartridge 12 Units. 4 Active bumetanide (BUMEX) 0.5 MG tablet Take 1 tablet (0.5 mg total) by mouth daily. Active amLODIPine (NORVASC) 10 MG tablet Take 1 tablet (10 mg total) by mouth daily. Take 1/2 tab by mouth daily for three days, then take 1 tab daily 90 tablet 3 5 11/15/19 26 Active carvedilol (COREG) 6.25 MG tablet Take 0.5 tablets (3.125 mg total) by mouth 2 (two) times daily. On days when there is no dialysis 90 tablet 3 5 11/15/19 26 Active hydrALAZINE (APRESOLINE) 25 MG tablet Take 1 tablet (25 mg total) by mouth 2 (two) times a day. 60 tablet 5 5 Active lidocaine-priloc jackie (EMLA) cream Apply topically as needed. Active esomeprazole (NEXIUM) 20 MG capsule Take 1 capsule (20 mg total) by mouth every morning before breakfast. Active midodrine (PROAMATINE) 5 MG tablet Take 1 tablet (5 mg total) by mouth as needed. Active calcitriol (ROCALTROL) 0.5 MCG capsule Take 1 capsule (0.5 mcg total) by mouth daily. Active Active Problems Problem Noted Date Diagnosed Date Hyperlipidemia, mixed 01/17/2025 Essential (primary) hypertension 11/14/2024 End stage renal disease (N18.6) 11/14/2024 Hemoptysis 03/28/2024 Hypotension 12/31/2023 Postural dizziness with presyncope 12/31/2023 Hypokalemia 09/01/2023 EKG, abnormal 09/01/2023 Encounters Date Type Department Care Team Description 01/19/2025 Telephone [facility] [address] [place] [address] Rohit Butcher MD Blood Pressure (11/14/24 - 01/13/25 BP Log ) 01/18/2025 Results Follow-Up [facility] [address] [place] [address] Mirela Mosley MA LIPID PANEL 01/17/2025 11:44 AM CDT - 01/17/2025 11:59 PM CDT Hospital Encounter [facility] [address] [place] [address] Rohit Butcher MD Discharge Disposition: Home or Self Care (Routine Discharge) 01/17/2025 10:45 AM CDT Office Visit [facility] [address] [place] [address] Rohit Butcher MD Hypertension 01/17/2025 Travel 2024 Telephone [facility] [address] [place] [address] Rohit Butcher MD Results 12/06/2024 Telephone [facility] [address] [place] [address] Rohit Butcher MD Blood Pressure 12/01/2024 Telephone [facility] [address] [place] [address] Rohit Butcher MD Other 12/01/2024 Travel 11/25/2024 Telephone [facility] [address] [place] [address] Rohit Butcher MD Surgical Clearance 11/18/2024 Telephone [facility] [address] [place] [address] Rohit Butcher MD Refill Request 11/16/2024 Telephone [facility] [address] [place] [address] Rohit Butcher MD Blood Pressure (11/06/24 - 11/14/24 BP Log ) 11/14/2024 3:30 PM CDT Office Visit [facility] [place] [address] Rohit Butcher MD Follow Up (Follow up ER visit, HTN) 11/14/2024 Travel 11/09/2024 Abstract [facility] [address] [place] [address] Abstract, Doc Pccl 11/08/2024 Telephone [facility] [address] [place] [address] Rohit Butcher MD Appointment Request 11/06/2024 Scan [facility] [address] [place] [address] Scanned, Doc Pccl ECG (SCAN) from Last 3 Months Family History Medical [...] drink = 0.6 oz pur e alcohol) [facility] Utilities Answer Date Recorded In the past 12 months has e [employer], gas, oil, or water [employer] threatened to shut off services in your [...] any time in the past 12 m [facility], were you homeless or living in a [facility] (including now)? No 03/28/2024 Sex and Gender Information Value Date Recorded Sex Assigned at Male 07/22/2024 12:34 PM [employer]ACH[employer] Legal Sex Male 6:24 PM CDT Gender Identity Not on file Sexual Orientation Not on file Last Filed Vital Signs Vital Sign Reading Time Taken Comments Blood Pressure 134/82 01/17/2025 11:03 AM CDT Pulse 89 01/17/2025 11:03 AM CDT Temperature 37.1 C (98.7 F) 05/28/2024 12:32 AM [employer]ACHINE Respiratory Rate 18 01/17/2025 11:03 AM CDT Oxygen Saturation 97% 01/17/2025 11:03 AM CDT Inhaled Oxygen Concentration - - Weight 127 kg (280 lb) 01/17/2025 11:03 AM CDT Height 188 cm (6' 2) 01/17/2025 11:03 AM CDT Body Mass Index 35.95 01/17/2025 11:03 AM CDT Plan of Treatment Upcoming Encounters Date Type Department Care Team (Late st Contact Info) Description 05/04/2025 1:30 PM [employer]E [employer]AK[employer] MACHINE Office Visit [facility] [address] [place] [phone] Ariana Walsh, CIRCULAR STUFFER, [employer] [address] [facility] [address] [place] [phone] Health Maintenance Due Date Last Done Comments Annual Physical 12/13/1975 Diabetes: Retinopathy Eye Exam 1990 Hepatitis B Vaccines (2 of 3 - 19+ 3-dose series) 12/01/2019 11/03/2019 Zoster Vaccines (1 of 2) 2022 COVID-19 Vaccine (1 - season) 2024 Hemoglobin A1C 03/04/2024 09/02/2023, 06/16, 07/02/2023, Additional history exists Pneumococcal Vaccine: 50+ Years (3 of 3 - PCV20 or PCV21) 03/24/2024 03/24/2019, 05/04/2018 Colorectal Cancer Screening FIT/FOBT (1 Year) 03/28/2025 03/28/2024 Lipid Panel 01/17/2026 01/17/2025, 07/10/2023 DTaP, Tdap and Td Vaccines (4 - Td or Tdap) 10/20/2031 10/19/2021, 05/04/2018, 06/15/2017, Additional history exists Hepatitis C Completed 07/13/2023, 06/16, 07/07/2023, Additional history exists Meningococcal B Vaccine Aged Out No l onger eligible based on patient's age to complete this topic Meningococcal Vaccine Aged Out No robert jluis eligible based on patient's age to complete this topic RSV Immunizations Under 20 Months Aged Out No longer eligible based on patient's age to complete this topic Goals Goal Patient Goal Type Associated Problems Recent Progress Patient-Stated? 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 pick up worker Procedure Name Priority Date/Time Associated Diagnosis Comments LIPID PANEL Routine 01/17/2025 11:52 AM CDT Essential (primary) hypertension AMBULATORY BP MONITOR Routine 12/06/2024 4:37 PM CDT End stage renal disease (N18.6) ECG GENERIC (SCAN ORDER) Routine 11/06/2024 12:00 AM CDT COMPREHENSIVE METABOLIC PANEL Routine 11/06/2024 CBC, MANUAL DIFF Routine 11/06/2024 MAGNESIUM Routine 11/06/2024 OCCULT BLOOD, FECES STAT 03/28/2024 1 2:10 PM CDT HEMOGLOBIN, GLYCOSYLATED Routine 09/02/2023 2:49 AM CDT from Last 3 Months or Most Recently Relevant to Health Maintenance Results * (ABNORMAL) LIPID PANEL (01/17/2025 11:52 AM CDT) CHOLESTEROL 111 MG/DL 01/17/2025 6:44 PM CDT [facility] Comment:DESIRABLE: <200 TRIGLYCERIDES 122 MG/DL 01/17/2025 6:44 PM CDT [facility] Comment:<150 NORMAL HDL 37(L) >39 MG/DL 01/17/2025 6:44 PM CDT [facility] LDL-C 50 MG/DL 01/17/2025 6:44 PM CDT [facility] Comment:<100 OPTIMAL VLDL CALCULATION 24 MG/DL 01/18/20 6:44 PM CDT [facility] Comment:REFERENCE RANGE NOT ESTABLISHED CHOL/HDL RATIO 3.0 01/17/2025 6:44 PM CDT [facility] Comment:REFERENCE RANGE NOT ESTABLISHED LDL/HDL 1.3 01/17/2025 6:44 PM CDT [facility] Comment:REFERENCE RANGE NOT ESTABLISHED NON HDL CHOLESTEROL 74 MG/DL 01/17/2025 6:44 PM CDT [facility] Comment:REFERENCE RANGE NOT ESTABLISHED 01/17/2025 11:5 2 AM CDT Rohit Butcher MD LABORATORY Final Result [facility] [address] [place] [address], [id number] * Ambulatory BP Monitor (12/06/2024 4:37 PM CDT) Narrative Rohit Butcher MD - 12/06/2024 4:37 PM CDT Indication hypertension. Study duration 24 hours start date 12/01/2024. 32 measurements were made with 100% success rate, average blood pressure was 160/93 mmHg with a pulse pressure of 66.9 mmHg, with a standard deviation of 17.4/10 mmHg. Maximum systolic blood pressure was 195 mmHg with a minimum of 111 mmHg, maximum diastolic blood pressure was 108 mmHg with a minimum of 76 mmHg, average heart rate was 90 bpm with a maximum of 98 and a minimum of 77 bpm. Average decrease was 4.4% / 5.4% in the morning [not a dipPer]. Overall 75% of the systolic was acceptable 9% normal and 16% critical, 41% with diastolic blood pressure was normal 59% acceptable. Impression Poorly controlled blood pressure Recommendations Follow-up in clinic for further management Rohit Butcher MD HOLTER Final Result * ECG (11/06/2024 12:00 AM CDT) 11/06/2024 us Doc Pccl Scanned SCANNING Final Result [facility] * (ABNORMAL) COMPREHENSIVE METABOLIC PANEL (11/06/2024) Pathologist [facility] SODIUM S/P/B 138 GLUCOSE 335 mg/dL AST 28 BUN 37 CREATININE S/P/B 5.65(A) 0.7 - 1.3 CALCIUM S/P/B 8.7 POTASSIUM S/P/B 3.7 CHLORIDE S/P/B 101 ALT 18 GFR ESTIMATE 11 Narrative Resulting Agency Comment [facility] Default History Genericprovider LABORATORY Final Result * CBC, MANUAL DIFF (11/06/2024) Pathologist [facility] WBC 5.9 HGB 11.3 HCT 35.5 PLT 196 Narrative Resulting Agency Comment [facility] Default History Genericprovider LABORATORY Final Result * MAGNESIUM (11/06/2024) Pathologist [facility] MAGNESIUM 1.5 Narrative Resulting Agency Comment [facility] Default History Genericprovider LABORATORY Final Result * OCCULT BLOOD, FECES (03/28/2024 12:10 PM CDT) Pathologist [facility] OCCULT BLOOD FECAL NEGATIVE NEGATIVE 03/28/2024 12:19 PM CDT [facility] STOOL SPECIMEN / Unknown 03/28/2024 12:10 PM CDT us Kelly S Goodwine MD BODY FLUIDS AND STOOLS ORDER KRIS Final Result [facility] [address] [place] [address], [place] [phone] * (ABNORMAL) HEMOGLOBIN, GLYCOSYLATED (09/02/2023 2:49 AM CDT) HGB A1C 7.4(H) <5.7 % 09/02/2023 3:34 PM CDT [facility] ESTIMATED AVG GLUCOSE 166(H) 74 - 114 MG/DL 09/02/2023 3:34 PM CDT [facility] 09/02/2023 2:49 AM CDT Troy Berger MD LABORATORY Final Res ult Performing Organization Address City/[facility] Co de Phone Number [facility] [address] [place] [address], [place] [phone] from Last 3 Months or Most Recently [...] 10:23 PM 09/04/2023 8:48 PM Care Teams Hvac Service Technician Relationship Specialty Start Date End Date Mery Maxwell MD [address] [place] [phone] PCP - General FAMILY PRACTICE 08/19/23 Rohit Butcher MD [address] [place] [address] [place] [address] Physician INTERVENTIONAL CARDIOLOGY 11/08/24
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
--- OUTSIDE RECORDS SUMMARY | 2025-01-30 20:29 | XMS_ITS | Clinical Summary ---
Author Organization Unknown Care Team Providers Care Health Information Tech Name Role Phone JERMAN ANN, RIMA Unavailable Unavailable OTTO REGISTERED NURSE, JESSIE Unavailable Unavailable Payers Payer Name Policy Type Policy Number Effective Date Expira tion Date MEDICARE [place] - EPISODIC [id number] Problems Condition Name Condition Details Condition Category [...] 06-15 00:00: 00 ATHSCL HEART DISEASE OF [place] CORONARY ARTERY W/O ANG PCTRS Active 06-15 [...] CONSTIPATION , UNSPECIFIED Active 06-15 00:00: 00 RETIREMENT (CURRENT) USE OF ANTICOAGULAN TS Active 06-15 00:00: 00 RETIREMENT (CURRENT) USE OF INSULIN Active 06-15 00:00: [...] 100 mg tablet 09-24 00:00: 00 Yes [id number] HYPERPHOSPH ATEMIA 1 tablet TWICE DAILY 1 tablet TWICE DAILY (route: oral) Med Classific ation: Gout and Hyperuric emia Therapy amiodarone 200 mg tablet 09-24 00:00: 00 Yes [id number] AFIB 1 tablet ONCE DAILY 1 tablet ONCE DAILY (route: oral) Med Classific ation: Cardiovas cular Therapy Agents atorvastati n 20 mg tablet 09-24 00:00: 00 Yes [id number] HIGH CHOLESTEROL 1 tablet ONCE DAILY 1 tablet ONCE DAILY (route: oral) Med Classific ation: Cardiovas cular Therapy Agents calcitriol 0.25 mcg capsule 09-24 00:00: 00 Yes [id number] SUPPLEMENT 1 capsule DIRECTED 1 capsule DIRECTED (route: oral) Med Classific ation: Electroly te Balance-N utritiona l Products carvedilol 12.5 mg tablet 09-24 00:00: 00 12-08 23:59 :00 No [id number] HYPERTENSIO N 1 tablet TWICE DAILY 1 tablet TWICE DAILY (route: oral) Med Classific ation: Cardiovas cular Therapy Agents Eliquis 5 mg tablet 09-24 00:00: 00 Yes [id number] AFIB 1 tablet TWICE DAILY 1 tablet TWICE DAILY (route: oral) Med Classific ation: Hematolog ical Agents fluticasone propionate 50 mcg/actuati on blister powder for inhalation 09-24 00:00: 00 Yes [id number] ALLERGIES 1 inhalat ion TWICE DAILY 1 inhalation TWICE DAILY (route: inhalation ) Med Classific ation: Respirato ry Therapy Agents gabapentin 100 mg capsule 09-24 00:00: 00 11-17 23:59 :00 No [id number] NERVE PAIN 1 capsule TWICE DAILY 1 capsule TWICE DAILY (route: oral) Med Classific ation: Central Nervous System Agents insulin lispro (U-100) 100 unit/mL subcutaneou s pen 09-24 00:00: 00 04-11 23:59 :00 No [id number] TYPE TWO DIABETES 8 unit 3 TIMES DAILY 8 unit 3 TIMES DAILY (route: subcutaneo us) Alternate Route: SUBCUTANE OUS. Med Classific ation: Endocrine lactulose 10 gram/15 mL (15 mL) oral solution 09-24 00:00: 00 Yes [id number] CONSTIPATIO N 30 mL TWICE DAILY 30 mL TWICE DAILY (route: oral) Med Classific ation: Gastroint estinal Therapy Agents Lantus Solostar U-100 Insulin 100 unit/mL (3 mL) subcutaneou s pen 09-24 00:00: 00 03-02 23:59 :00 No [id number] TYPE 2 DIABETES 10 unit AT BEDTIME 10 unit AT BEDTIME (route: subcutaneo us) Alternate Route: SUBCUTANE OUS. Med Classific ation: Endocrine midodrine 10 mg tablet 09-24 00:00: 00 Yes [id number] REGULATE BLOOD PRESSURE 1 tablet 3 TIMES DAILY 1 tablet 3 TIMES DAILY (route: oral) Med Classific ation: Cardiovas cular Therapy Agents nystatin 100,000 unit/gram topical powder 09-24 00:00: 00 Yes [id number] MOISTURE TO SKIN FOLDS OF GROIN 1 gram TWICE DAILY 1 gram TWICE DAILY (route: topical) Med Classific ation: Dermatolo gical Protonix 40 mg tablet,ada yed release 09-24 00:00: 00 Yes [id number] REFLUX 1 tablet TWICE DAILY 1 tablet TWICE DAILY (route: oral) Med Classific ation: Gastroint estinal Therapy Agents Proventil HFA 90 mcg/actuati on aerosol inhaler 09-24 00:00: 00 Yes [id number] COUGH 1 puff EVERY 6 HOURS 1 puff EVERY 6 HOURS (route: inhalation ) Med Classific ation: Respirato ry Therapy Agents tramadol 50 mg tablet 09-24 00:00: 00 Yes [id number] PAIN 2 tablet EVERY 6 HOURS PRN 2 tablet EVERY 6 HOURS PRN (route: oral) Med Classific ation: Analgesic , Anti-infl ammatory or Antipyret ic Tylenol 325 mg tablet 09-24 00:00: 00 Yes [id number] PAIN 2 tablet EVERY 6 HOURS 2 tablet EVERY 6 HOURS (route: oral) Med Classific ation: Analgesic , Anti-infl ammatory or Antipyret ic carvedilol 25 mg tablet - 00:00: 00 02-26 23:59 :00 No [id number] HYPERTENSIO N 1 tablet TWICE DAILY 1 tablet TWICE DAILY (route: oral) Med Classific ation: Cardiovas cular Therapy Agents sevelamer carbonate 800 mg tablet - 00:00: 00 01-16 23:59 :00 No [id number] ESRD 1 tablet 3 TIMES DAILY 1 tablet 3 TIMES DAILY (route: oral) Alternate Route: BY MOUTH. Med Classific ation: Genitouri nary Therapy Lantus Solostar U-100 Insulin 100 unit/mL (3 mL) subcutaneou s pen 03-02 00:00: 00 03-04 23:59 :00 No [id number] T2D 12 unit AT BEDTIME 12 unit AT BEDTIME (route: subcutaneo ) Med Classific ation: Endocrine Basaglar KwikPen U-100 Insulin 100 unit/mL (3 mL) subcutaneou s 03-04 00:00: 00 05-02 23:59 :00 No [id number] DIABETES MELLITUS TYPE TWO 18 unit AT BEDTIME 18 unit AT BEDTIME (route: subcutaneo us) Alternate Route: SUBCUTANE OUS. Med Classific ation: Endocrine benzonatate 200 mg capsule 2023-06 0-17 00:00: 00 04-05 23:59 :00 No [id number] COUGH 1 capsule 3 TIMES DAILY 1 capsule 3 TIMES DAILY (route: oral) Med Classific ation: Respirato ry Therapy Agents doxycycline hyclate 100 mg capsule 2023-06 0-17 00:00: 00 04-05 23:59 :00 No [id number] INFECTION PREVENTION 1 capsule TWICE DAILY 1 capsule TWICE DAILY (route: oral) Med Classific ation: Anti-Infe ctive Agents insulin lispro (U-100) 100 unit/mL subcutaneou s pen 2023-06 0-28 00:00: 00 05-02 23:59 :00 No [id number] DIABETES MELLITUS 10 unit 3 TIMES DAILY 10 unit 3 TIMES DAILY (route: subcutaneo us) Med Classific ation: Endocrine Basaglar KwikPen U-100 Insulin 100 unit/mL (3 mL) subcutaneou s 2023-0618 00:00: 00 09-13 23:59 :00 No [id number] DIABETES MELLITUS 24 unit AT BEDTIME 24 unit AT BEDTIME (route: subcutaneo us) Med Classific ation: Endocrine insulin lispro (U-100) 100 unit/mL subcutaneou s pen 2023-06 1-18 00:00: 00 01-16 23:59 :00 No [id number] DIABETES MELLITUS 12 unit 3 TIMES DAILY 12 unit 3 TIMES DAILY (route: subcutaneo us) Med Classific ation: Endocrine carvedilol 25 mg tablet 2023-06 2-13 00:00: 00 11-17 23:59 :00 No [id number] HYPERTENSIO N Per instruc tions DIRECTED Per instructio ns DIRECTED (route: oral) Med Classific ation: Cardiovas cular Therapy Agents bumetanide 1 mg tablet 3-17 00:00: 00 12-01 23:59 :00 No [id number] FLUID OVERLOAD 1 tablet ONCE DAILY 1 tablet ONCE DAILY (route: oral) Alternate Route: BY MOUTH. Med Classific ation: Cardiovas cular Therapy Agents Nexium 24HR 20 mg capsule,del ayed release 3-17 00:00: 00 Yes [id number] GERD 1 capsule ONCE DAILY 1 capsule ONCE DAILY (route: oral) Alternate Route: BY MOUTH. Med Classific ation: Gastroint estinal Therapy Agents Basaglar KwikPen U-100 Insulin 100 unit/mL (3 mL) subcutaneou s 10-11 00:00: 00 01-16 23:59 :00 No [id number] HYPERGLYCEM IA 30 unit AT BEDTIME 30 unit AT BEDTIME (route: subcutaneo us) Alternate Route: SUBCUTANE OUS. Med Classific ation: Endocrine bumetanide 1 mg tablet 10-11 00:00: 00 Yes [id number] FLUID OVERLOAD 1 tablet ONCE DAILY 1 tablet ONCE DAILY (route: oral) Alternate Route: BY MOUTH. Med Classific ation: Cardiovas cular Therapy Agents hydralazine 100 mg tablet 10-11 00:00: 00 Yes [id number] IF SYSTOLIC BP ABOVE 180 1 tablet ONCE DAILY 1 tablet ONCE DAILY (route: oral) Alternate Route: BY MOUTH. Med Classific ation: Cardiovas cular Therapy Agents amlodipine 10 mg tablet 11-04 00:00: 00 12-01 23:59 :00 No [id number] HYPERTENSIO N 1 tablet ONCE DAILY 1 tablet ONCE DAILY (route: oral) Med Classific ation: Cardiovas cular Therapy Agents carvedilol 6.25 mg tablet 11-14 00:00: 00 Yes [id number] HYPERTENSIO N 0.5 tablet DIRECTED 0.5 tablet DIRECTED (route: oral) Med Classific ation: Cardiovas cular Therapy Agents gabapentin 100 mg capsule 11-17 00:00: 00 Yes [id number] NERVE PAIN 2 capsule TWICE DAILY 2 capsule TWICE DAILY (route: oral) Med Classific ation: Central Nervous System Agents amlodipine 10 mg tablet 11-16 00:00: 00 Yes [id number] HYPERTENSIO N 0.5 tablet 3 TIMES DAILY 0.5 tablet 3 TIMES DAILY (route: oral) Med Classific ation: Cardiovas cular Therapy Agents doxycycline monohydrate 100 mg capsule 11-19 00:00: 00 11-29 23:59 :00 No [id number] URI 1 capsule TWICE DAILY 1 capsule TWICE DAILY (route: oral) Alternate Route: BY MOUTH. Med Classific ation: Anti-Infe ctive Agents Mounjaro 5 mg/0.5 mL subcutaneou s pen injector 11-19 00:00: 00 Yes [id number] DIABETES MELLITUS 5 mg WEEKLY 5 mg WEEKLY (route: subcutaneo us) Med Classific ation: Endocrine sevelamer HCl 800 mg tablet 12-27 00:00: 00 Yes [id number] HIGH PHOSPHORUS LEVELS 2 tablet 3 TIMES DAILY 2 tablet 3 TIMES DAILY (route: oral) Med Classific ation: Genitouri nary Therapy Basaglar KwikPen U-100 Insulin 100 unit/mL (3 mL) subcutaneou s 01-17 00:00: 00 Yes [id number] DIABETES 40 unit AT BEDTIME 40 unit AT BEDTIME (route: subcutaneo us) Alternate Route: SUBCUTANE OUS. Med Classific ation: Endocrine insulin lispro (U-100) 100 unit/mL subcutaneou s pen 01-17 00:00: 00 Yes [id number] DIABETES 15 unit 3 TIMES DAILY 15 unit 3 TIMES DAILY (route: subcutaneo us) Med Classific ation: Endocrine Mounjaro 5 mg/0.5 mL subcutaneou s pen injector 11-19 00:00: 00 Yes [id number] DIABETES MELLITUS 5 mg WEEKLY 5 mg [...] TIMES PER DAY.] Future Scheduled Test HOME [facility] NURSE TO INSTRUCT ON CHRONIC KIDNEY [...] End Date/Time Encounter Type Admission Type Attending [facility] Care Facility Care Department Encounter ID Discharge Date Discharge Status Discharge Condition Discharge Reason Percent Goals Met 2025-01-17 00:00:00 2025-03-17 00:00:00 Outpatient RECERTIFIC ATION JESSIE MENJIVAR [facility] [id number] 31.82
--- OUTSIDE RECORDS SUMMARY | 2025-01-30 20:29 | XMS_ITS | Patient Health Record ---
Author Organization [facility] Felicia logan Billing Info Address [address] [place] [address] [place] [address] Care Team Providers Care Hotel Baggage Handler Name Role Phone [facility] Primary Care Provider Unavailable Allergies Allergen (clinical [...] Problem Status W/U Status Risk Notes Problem 340309820 Persistent atria l fibrillation (I48.1) Active confirmed Problem 443014461 Chronic atrial fibrillation (I48.2) Active confirmed Problem Chronic diastoli c (congestive) heart failure (I50.32) Active confirmed Problem 707794662 Erectile dysfunction due to diseases classified elsewhere (N52.1) Active confirmed Problem 016087192 Permanent atrial fibrillation (I48.21) Active confirmed Problem 81994605 Essential hypertension (I10) Active confirmed Problem 37526794 ADRYAN (obstructive sleep apnea) (G47.33) Active confirmed Problem 51825448 JOHANSEN (dyspnea on exertion) (R06.09) Active confirmed Problem 732973002 Obesity (BMI 30-39.9) (E66.9) Active confirmed Problem 703121381 Paroxysmal a-fib (I48.0) Active confirmed Problem 617714247 BMI 37.0-37.9, adult (Z68.37) Active confirmed Problem 983976764 Acute renal insufficiency (N28.9) Active confirmed Problem 8047332812593 CAD in [place] artery (I25.10) Active confirmed Problem 172607437 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 (Z79.4) Active confirmed Problem [id number] Coronary artery disease involving [place] coronary artery of [place] heart without angina pectoris (I25.10) Active confirmed Problem 67140377 Anemia of unknow n etiology (D64.9) Active confirmed Problem 88217899 Hyperlipidemia, unspecified hyperlipidemia type (E78.5) Active confirmed Problem Chronic diastoli c congestive heart failure (I50.32) Active confirmed Problem 237785758 Edema, unspecifi ed type (R60.9) Active confirmed Problem 55658022 Type 2 diabetes mellitus with complication, with long-term current use of insulin (E11.8) Active confirmed Plan Of Treatment Pending Test Test Name Order Date CARDIOVERSION (78033) CV* 12/31/2021 EPS - ABLATION, A-FIB (30792, 96479) CV* 12/31/2021 IMPLANT - LOOP RECORDER (56262) CV* 12/13 DOMI (71239) CV* 12/31/2021 DOMI (28822) CV* 01/02/2022 Insurance Providers Payer Name Payer Address Payer Phone Subscriber Number Group Number Insured Name Patient Relationship to Insured Coverage Start Date Coverage End Date [facility] [address] ATTN CLAIMS [place], [place] [id number] Aaron Campos Self - patient is the insured 2 Medical (General) History Medical History History ICD Code Chronic atrial fibrillation I48.2 Essential hypertension I10 senior care current use of insulin Z79.4 Type 2 diabetes mellitus wit h complication, with long-term current use of insulin E11.8 Chronic diastolic congestive heart failu re I50.[address] scan chest Surgical History Surgery Date(Month/Year) tonsillectomy 1994 Hospitalization History Reason Date(Month/Year) diabetes atrial fibrillation 08/2015 [facility]-Chest pain, shortness of air 05-18-20 16 [facility]-Nausea and vomiting 08-23-16 [facility]- Abdomenal pain 04-22-17 Please see medical & surgical hx's [facility]- Edema and Atrial Fibrillation 10/03 [facility]-Vertigo 04-25-19 [facility]-Nausea and vomiting 05-14-19 [facility]-Dizziness 07-31-2019 [facility]Chest pain 10-26-19 [facility] 07-23-20 [facility]-Anasarca 11-01-2020
--- OUTSIDE RECORDS SUMMARY | 2025-01-30 21:10 | XMS_ITS | Clinical Summary ---
Author Organization Unknown Care Team Providers Care Carbonizer Tester Name Role Phone JERMAN ANN, RIMA Unavailable Unavailable OTTO REGISTERED NURSE, JESSIE Unavailable Unavailable Payers Payer Name Policy Type Policy Number Effective Date Expira tion Date MEDICARE [place] - EPISODIC [id number] Problems Condition Name Condition Details Condition Category [...] 06-15 00:00: 00 ATHSCL HEART DISEASE OF [place] CORONARY ARTERY W/O ANG PCTRS Active 06-15 [...] CONSTIPATION , UNSPECIFIED Active 06-15 00:00: 00 USP (CURRENT) USE OF ANTICOAGULAN TS Active 06-15 [...] 100 mg tablet 09-24 00:00: 00 Yes [id number] HYPERPHOSPH ATEMIA 1 tablet TWICE DAILY 1 tablet TWICE DAILY (route: oral) Med Classific ation: Gout and Hyperuric emia Therapy amiodarone 200 mg tablet 09-24 00:00: 00 Yes [id number] AFIB 1 tablet ONCE DAILY 1 tablet ONCE DAILY (route: oral) Med Classific ation: Cardiovas cular Therapy Agents atorvastati n 20 mg tablet 09-24 00:00: 00 Yes [id number] HIGH CHOLESTEROL 1 tablet ONCE DAILY 1 tablet ONCE DAILY (route: oral) Med Classific ation: Cardiovas cular Therapy Agents calcitriol 0.25 mcg capsule 09-24 00:00: 00 Yes [id number] SUPPLEMENT 1 capsule DIRECTED 1 capsule DIRECTED (route: oral) Med Classific ation: Electroly te Balance-N utritiona l Products carvedilol 12.5 mg tablet 09-24 00:00: 00 12-08 23:59 :00 No [id number] HYPERTENSIO N 1 tablet TWICE DAILY 1 tablet TWICE DAILY (route: oral) Med Classific ation: Cardiovas cular Therapy Agents Eliquis 5 mg tablet 09-24 00:00: 00 Yes [id number] AFIB 1 tablet TWICE DAILY 1 tablet TWICE DAILY (route: oral) Med Classific ation: Hematolog ical Agents fluticasone propionate 50 mcg/actuati on blister powder for inhalation 09-24 00:00: 00 Yes [id number] ALLERGIES 1 inhalat ion TWICE DAILY 1 inhalation TWICE DAILY (route: inhalation ) Med Classific ation: Respirato ry Therapy Agents gabapentin 100 mg capsule 09-24 00:00: 00 11-17 23:59 :00 No [id number] NERVE PAIN 1 capsule TWICE DAILY 1 capsule TWICE DAILY (route: oral) Med Classific ation: Central Nervous System Agents insulin lispro (U-100) 100 unit/mL subcutaneou s pen 09-24 00:00: 00 04-11 23:59 :00 No [id number] TYPE TWO DIABETES 8 unit 3 TIMES DAILY 8 unit 3 TIMES DAILY (route: subcutaneo us) Alternate Route: SUBCUTANE OUS. Med Classific ation: Endocrine lactulose 10 gram/15 mL (15 mL) oral solution 09-24 00:00: 00 Yes [id number] CONSTIPATIO N 30 mL TWICE DAILY 30 mL TWICE DAILY (route: oral) Med Classific ation: Gastroint estinal Therapy Agents Lantus Solostar U-100 Insulin 100 unit/mL (3 mL) subcutaneou s pen 09-24 00:00: 00 03-02 23:59 :00 No [id number] TYPE 2 DIABETES 10 unit AT BEDTIME 10 unit AT BEDTIME (route: subcutaneo us) Alternate Route: SUBCUTANE OUS. Med Classific ation: Endocrine midodrine 10 mg tablet 09-24 00:00: 00 Yes [id number] REGULATE BLOOD PRESSURE 1 tablet 3 TIMES DAILY 1 tablet 3 TIMES DAILY (route: oral) Med Classific ation: Cardiovas cular Therapy Agents nystatin 100,000 unit/gram topical powder 09-24 00:00: 00 Yes [id number] MOISTURE TO SKIN FOLDS OF GROIN 1 gram TWICE DAILY 1 gram TWICE DAILY (route: topical) Med Classific ation: Dermatolo gical Protonix 40 mg tablet,ada yed release 09-24 00:00: 00 Yes [id number] REFLUX 1 tablet TWICE DAILY 1 tablet TWICE DAILY (route: oral) Med Classific ation: Gastroint estinal Therapy Agents Proventil HFA 90 mcg/actuati on aerosol inhaler 09-24 00:00: 00 Yes [id number] COUGH 1 puff EVERY 6 HOURS 1 puff EVERY 6 HOURS (route: inhalation ) Med Classific ation: Respirato ry Therapy Agents tramadol 50 mg tablet 09-24 00:00: 00 Yes [id number] PAIN 2 tablet EVERY 6 HOURS PRN 2 tablet EVERY 6 HOURS PRN (route: oral) Med Classific ation: Analgesic , Anti-infl ammatory or Antipyret ic Tylenol 325 mg tablet 09-24 00:00: 00 Yes [id number] PAIN 2 tablet EVERY 6 HOURS 2 tablet EVERY 6 HOURS (route: oral) Med Classific ation: Analgesic , Anti-infl ammatory or Antipyret ic carvedilol 25 mg tablet - 00:00: 00 02-26 23:59 :00 No [id number] HYPERTENSIO N 1 tablet TWICE DAILY 1 tablet TWICE DAILY (route: oral) Med Classific ation: Cardiovas cular Therapy Agents sevelamer carbonate 800 mg tablet - 00:00: 00 01-16 23:59 :00 No [id number] ESRD 1 tablet 3 TIMES DAILY 1 tablet 3 TIMES DAILY (route: oral) Alternate Route: BY MOUTH. Med Classific ation: Genitouri nary Therapy Lantus Solostar U-100 Insulin 100 unit/mL (3 mL) subcutaneou s pen 03-02 00:00: 00 03-04 23:59 :00 No [id number] T2D 12 unit AT BEDTIME 12 unit AT BEDTIME (route: subcutaneo ) Med Classific ation: Endocrine Basaglar KwikPen U-100 Insulin 100 unit/mL (3 mL) subcutaneou s 03-04 00:00: 00 05-02 23:59 :00 No [id number] DIABETES MELLITUS TYPE TWO 18 unit AT BEDTIME 18 unit AT BEDTIME (route: subcutaneo us) Alternate Route: SUBCUTANE OUS. Med Classific ation: Endocrine benzonatate 200 mg capsule 2023-06 0-17 00:00: 00 04-05 23:59 :00 No [id number] COUGH 1 capsule 3 TIMES DAILY 1 capsule 3 TIMES DAILY (route: oral) Med Classific ation: Respirato ry Therapy Agents doxycycline hyclate 100 mg capsule 2023-06 0-17 00:00: 00 04-05 23:59 :00 No [id number] INFECTION PREVENTION 1 capsule TWICE DAILY 1 capsule TWICE DAILY (route: oral) Med Classific ation: Anti-Infe ctive Agents insulin lispro (U-100) 100 unit/mL subcutaneou s pen 2023-06 0-28 00:00: 00 05-02 23:59 :00 No [id number] DIABETES MELLITUS 10 unit 3 TIMES DAILY 10 unit 3 TIMES DAILY (route: subcutaneo us) Med Classific ation: Endocrine Basaglar KwikPen U-100 Insulin 100 unit/mL (3 mL) subcutaneou s 2023-0618 00:00: 00 09-13 23:59 :00 No [id number] DIABETES MELLITUS 24 unit AT BEDTIME 24 unit AT BEDTIME (route: subcutaneo us) Med Classific ation: Endocrine insulin lispro (U-100) 100 unit/mL subcutaneou s pen 2023-06 1-18 00:00: 00 01-16 23:59 :00 No [id number] DIABETES MELLITUS 12 unit 3 TIMES DAILY 12 unit 3 TIMES DAILY (route: subcutaneo us) Med Classific ation: Endocrine carvedilol 25 mg tablet 2023-06 2-13 00:00: 00 11-17 23:59 :00 No [id number] HYPERTENSIO N Per instruc tions DIRECTED Per instructio ns DIRECTED (route: oral) Med Classific ation: Cardiovas cular Therapy Agents bumetanide 1 mg tablet 3-17 00:00: 00 12-01 23:59 :00 No [id number] FLUID OVERLOAD 1 tablet ONCE DAILY 1 tablet ONCE DAILY (route: oral) Alternate Route: BY MOUTH. Med Classific ation: Cardiovas cular Therapy Agents Nexium 24HR 20 mg capsule,del ayed release 3-17 00:00: 00 Yes [id number] GERD 1 capsule ONCE DAILY 1 capsule ONCE DAILY (route: oral) Alternate Route: BY MOUTH. Med Classific ation: Gastroint estinal Therapy Agents Basaglar KwikPen U-100 Insulin 100 unit/mL (3 mL) subcutaneou s 10-11 00:00: 00 01-16 23:59 :00 No [id number] HYPERGLYCEM IA 30 unit AT BEDTIME 30 unit AT BEDTIME (route: subcutaneo us) Alternate Route: SUBCUTANE OUS. Med Classific ation: Endocrine bumetanide 1 mg tablet 10-11 00:00: 00 Yes [id number] FLUID OVERLOAD 1 tablet ONCE DAILY 1 tablet ONCE DAILY (route: oral) Alternate Route: BY MOUTH. Med Classific ation: Cardiovas cular Therapy Agents hydralazine 100 mg tablet 10-11 00:00: 00 Yes [id number] IF SYSTOLIC BP ABOVE 180 1 tablet ONCE DAILY 1 tablet ONCE DAILY (route: oral) Alternate Route: BY MOUTH. Med Classific ation: Cardiovas cular Therapy Agents amlodipine 10 mg tablet 11-04 00:00: 00 12-01 23:59 :00 No [id number] HYPERTENSIO N 1 tablet ONCE DAILY 1 tablet ONCE DAILY (route: oral) Med Classific ation: Cardiovas cular Therapy Agents carvedilol 6.25 mg tablet 11-14 00:00: 00 Yes [id number] HYPERTENSIO N 0.5 tablet DIRECTED 0.5 tablet DIRECTED (route: oral) Med Classific ation: Cardiovas cular Therapy Agents gabapentin 100 mg capsule 11-17 00:00: 00 Yes [id number] NERVE PAIN 2 capsule TWICE DAILY 2 capsule TWICE DAILY (route: oral) Med Classific ation: Central Nervous System Agents amlodipine 10 mg tablet 11-16 00:00: 00 Yes [id number] HYPERTENSIO N 0.5 tablet 3 TIMES DAILY 0.5 tablet 3 TIMES DAILY (route: oral) Med Classific ation: Cardiovas cular Therapy Agents doxycycline monohydrate 100 mg capsule 11-19 00:00: 00 11-29 23:59 :00 No [id number] URI 1 capsule TWICE DAILY 1 capsule TWICE DAILY (route: oral) Alternate Route: BY MOUTH. Med Classific ation: Anti-Infe ctive Agents Mounjaro 5 mg/0.5 mL subcutaneou s pen injector 11-19 00:00: 00 Yes [id number] DIABETES MELLITUS 5 mg WEEKLY 5 mg WEEKLY (route: subcutaneo us) Med Classific ation: Endocrine sevelamer HCl 800 mg tablet 12-27 00:00: 00 Yes [id number] HIGH PHOSPHORUS LEVELS 2 tablet 3 TIMES DAILY 2 tablet 3 TIMES DAILY (route: oral) Med Classific ation: Genitouri nary Therapy Basaglar KwikPen U-100 Insulin 100 unit/mL (3 mL) subcutaneou s 01-17 00:00: 00 Yes [id number] DIABETES 40 unit AT BEDTIME 40 unit AT BEDTIME (route: subcutaneo us) Alternate Route: SUBCUTANE OUS. Med Classific ation: Endocrine insulin lispro (U-100) 100 unit/mL subcutaneou s pen 01-17 00:00: 00 Yes [id number] DIABETES 15 unit 3 TIMES DAILY 15 unit 3 TIMES DAILY (route: subcutaneo us) Med Classific ation: Endocrine Mounjaro 5 mg/0.5 mL subcutaneou s pen injector 11-19 00:00: 00 Yes [id number] DIABETES MELLITUS 5 mg WEEKLY 5 mg [...] TIMES PER DAY.] Future Scheduled Test HOME [facility] NURSE TO INSTRUCT ON CHRONIC KIDNEY [...] HOSPITAL RECERT 01/18/2024: TO WALK AGAIN 03/02/24 PHLI: TO STAY OUT OF HOSPITAL RECERT 03/21/24: [...] WILL BE ESTABLISHED THAT MEETS ALL PATIENT'S CARE HOME NEEDS AND COUNTER SIGNED BY PHYSICIAN. Goal [...] End Date/Time Encounter Type Admission Type Attending [facility] Care Facility Care Department Encounter ID Discharge Date Discharge Status Discharge Condition Discharge Reason Percent Goals Met 2025-01-17 00:00:00 2025-03-17 00:00:00 Outpatient RECERTIFIC ATION JESSIE MENJIVAR [facility] [id number] 31.82
--- OUTSIDE RECORDS SUMMARY | 2025-01-30 21:10 | XMS_ITS | Encounter Summary ---
Author Organization [facility] Address [address] [place] [address] Care Team Providers Care Laborer Electroplating Name Role Phone Mery Maxwell MD Primary Care Provider [phone] Rohit Butcher MD Unavailable [phone] Encounter Details Date Type Department Care Team (Late st Contact Info) Description 01/18/2025 Results Follow-Up [facility] [place] [address] Mirela Mosley MA LIPID PANEL Social History Tobacco Use Types Packs/Day Years Used Date Smoking Tobacco: Former Cigarettes 1 15 Smokeless Tobacco: Never Alcohol Use Standard Drinks/Week Comments Not Currently 0 (1 standard drink = 0.6 oz pur e alcohol) [facility] Utilities Answer Date Recorded In the [...] Sex Assigned at Male 07/22/2024 12:34 PM OFFICE COORDINATOR Legal Sex Male 6:24 PM CDT Gender [...] 5:25 PM Christina Avila RN Active documented as of this [...] st Contact Info) Description 05/04/2025 1:30 PM OFFICE COORDINATOR [facility] [address] [place] [address] Ariana Walsh APRN, CHIEF CRNA-C [address] [facility] [address] [place] [address] documented as of this encounter Goals Goal Patient Goal Type Associated Problems Recent Progress Patient-Stated? 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 RN documented as of this encounter Visit Diagnoses Not on filedocumented in this encounter Care Teams Laborer Electroplating Relationship Specialty Start Date End Date Mery Maxwell MD [address] [place] [phone] PCP - General FAMILY PRACTICE 08/19/23 Rohit Butcher MD [address] [facility] [address] [place] [address] Physician INTERVENTIONAL CARDIOLOGY 11/08/24 documented as of this encounter
--- OUTSIDE RECORDS SUMMARY | 2025-01-30 21:10 | XMS_ITS | Clinical Summary ---
Author Organization Unknown Care Team Providers Care Design Transferrer Name Role Phone JERMAN ANN, RIMA Unavailable Unavailable OTTO REGISTERED NURSE, JESSIE Unavailable Unavailable Payers Payer Name Policy Type Policy Number Effective Date Expira tion Date MEDICARE [place] - EPISODIC [id number] Problems Condition Name Condition Details Condition Category [...] 06-15 00:00: 00 ATHSCL HEART DISEASE OF [place] CORONARY ARTERY W/O ANG PCTRS Active 06-15 [...] CONSTIPATION , UNSPECIFIED Active 06-15 00:00: 00 PENITENTIARY (CURRENT) USE OF ANTICOAGULAN TS Active 06-15 00:00: 00 PENITENTIARY (CURRENT) USE OF INSULIN Active 06-15 00:00: [...] 100 mg tablet 09-24 00:00: 00 Yes [id number] HYPERPHOSPH ATEMIA 1 tablet TWICE DAILY 1 tablet TWICE DAILY (route: oral) Med Classific ation: Gout and Hyperuric emia Therapy amiodarone 200 mg tablet 09-24 00:00: 00 Yes [id number] AFIB 1 tablet ONCE DAILY 1 tablet ONCE DAILY (route: oral) Med Classific ation: Cardiovas cular Therapy Agents atorvastati n 20 mg tablet 09-24 00:00: 00 Yes [id number] HIGH CHOLESTEROL 1 tablet ONCE DAILY 1 tablet ONCE DAILY (route: oral) Med Classific ation: Cardiovas cular Therapy Agents calcitriol 0.25 mcg capsule 09-24 00:00: 00 Yes [id number] SUPPLEMENT 1 capsule DIRECTED 1 capsule DIRECTED (route: oral) Med Classific ation: Electroly te Balance-N utritiona l Products carvedilol 12.5 mg tablet 09-24 00:00: 00 12-08 23:59 :00 No [id number] HYPERTENSIO N 1 tablet TWICE DAILY 1 tablet TWICE DAILY (route: oral) Med Classific ation: Cardiovas cular Therapy Agents Eliquis 5 mg tablet 09-24 00:00: 00 Yes [id number] AFIB 1 tablet TWICE DAILY 1 tablet TWICE DAILY (route: oral) Med Classific ation: Hematolog ical Agents fluticasone propionate 50 mcg/actuati on blister powder for inhalation 09-24 00:00: 00 Yes [id number] ALLERGIES 1 inhalat ion TWICE DAILY 1 inhalation TWICE DAILY (route: inhalation ) Med Classific ation: Respirato ry Therapy Agents gabapentin 100 mg capsule 09-24 00:00: 00 11-17 23:59 :00 No [id number] NERVE PAIN 1 capsule TWICE DAILY 1 capsule TWICE DAILY (route: oral) Med Classific ation: Central Nervous System Agents insulin lispro (U-100) 100 unit/mL subcutaneou s pen 09-24 00:00: 00 04-11 23:59 :00 No [id number] TYPE TWO DIABETES 8 unit 3 TIMES DAILY 8 unit 3 TIMES DAILY (route: subcutaneo us) Alternate Route: SUBCUTANE OUS. Med Classific ation: Endocrine lactulose 10 gram/15 mL (15 mL) oral solution 09-24 00:00: 00 Yes [id number] CONSTIPATIO N 30 mL TWICE DAILY 30 mL TWICE DAILY (route: oral) Med Classific ation: Gastroint estinal Therapy Agents Lantus Solostar U-100 Insulin 100 unit/mL (3 mL) subcutaneou s pen 09-24 00:00: 00 03-02 23:59 :00 No [id number] TYPE 2 DIABETES 10 unit AT BEDTIME 10 unit AT BEDTIME (route: subcutaneo us) Alternate Route: SUBCUTANE OUS. Med Classific ation: Endocrine midodrine 10 mg tablet 09-24 00:00: 00 Yes [id number] REGULATE BLOOD PRESSURE 1 tablet 3 TIMES DAILY 1 tablet 3 TIMES DAILY (route: oral) Med Classific ation: Cardiovas cular Therapy Agents nystatin 100,000 unit/gram topical powder 09-24 00:00: 00 Yes [id number] MOISTURE TO SKIN FOLDS OF GROIN 1 gram TWICE DAILY 1 gram TWICE DAILY (route: topical) Med Classific ation: Dermatolo gical Protonix 40 mg tablet,ada yed release 09-24 00:00: 00 Yes [id number] REFLUX 1 tablet TWICE DAILY 1 tablet TWICE DAILY (route: oral) Med Classific ation: Gastroint estinal Therapy Agents Proventil HFA 90 mcg/actuati on aerosol inhaler 09-24 00:00: 00 Yes [id number] COUGH 1 puff EVERY 6 HOURS 1 puff EVERY 6 HOURS (route: inhalation ) Med Classific ation: Respirato ry Therapy Agents tramadol 50 mg tablet 09-24 00:00: 00 Yes [id number] PAIN 2 tablet EVERY 6 HOURS PRN 2 tablet EVERY 6 HOURS PRN (route: oral) Med Classific ation: Analgesic , Anti-infl ammatory or Antipyret ic Tylenol 325 mg tablet 09-24 00:00: 00 Yes [id number] PAIN 2 tablet EVERY 6 HOURS 2 tablet EVERY 6 HOURS (route: oral) Med Classific ation: Analgesic , Anti-infl ammatory or Antipyret ic carvedilol 25 mg tablet - 00:00: 00 02-26 23:59 :00 No [id number] HYPERTENSIO N 1 tablet TWICE DAILY 1 tablet TWICE DAILY (route: oral) Med Classific ation: Cardiovas cular Therapy Agents sevelamer carbonate 800 mg tablet - 00:00: 00 01-16 23:59 :00 No [id number] ESRD 1 tablet 3 TIMES DAILY 1 tablet 3 TIMES DAILY (route: oral) Alternate Route: BY MOUTH. Med Classific ation: Genitouri nary Therapy Lantus Solostar U-100 Insulin 100 unit/mL (3 mL) subcutaneou s pen 03-02 00:00: 00 03-04 23:59 :00 No [id number] T2D 12 unit AT BEDTIME 12 unit AT BEDTIME (route: subcutaneo ) Med Classific ation: Endocrine Basaglar KwikPen U-100 Insulin 100 unit/mL (3 mL) subcutaneou s 03-04 00:00: 00 05-02 23:59 :00 No [id number] DIABETES MELLITUS TYPE TWO 18 unit AT BEDTIME 18 unit AT BEDTIME (route: subcutaneo us) Alternate Route: SUBCUTANE OUS. Med Classific ation: Endocrine benzonatate 200 mg capsule 2023-06 0-17 00:00: 00 04-05 23:59 :00 No [id number] COUGH 1 capsule 3 TIMES DAILY 1 capsule 3 TIMES DAILY (route: oral) Med Classific ation: Respirato ry Therapy Agents doxycycline hyclate 100 mg capsule 2023-06 0-17 00:00: 00 04-05 23:59 :00 No [id number] INFECTION PREVENTION 1 capsule TWICE DAILY 1 capsule TWICE DAILY (route: oral) Med Classific ation: Anti-Infe ctive Agents insulin lispro (U-100) 100 unit/mL subcutaneou s pen 2023-06 0-28 00:00: 00 05-02 23:59 :00 No [id number] DIABETES MELLITUS 10 unit 3 TIMES DAILY 10 unit 3 TIMES DAILY (route: subcutaneo us) Med Classific ation: Endocrine Basaglar KwikPen U-100 Insulin 100 unit/mL (3 mL) subcutaneou s 2023-0618 00:00: 00 09-13 23:59 :00 No [id number] DIABETES MELLITUS 24 unit AT BEDTIME 24 unit AT BEDTIME (route: subcutaneo us) Med Classific ation: Endocrine insulin lispro (U-100) 100 unit/mL subcutaneou s pen 2023-06 1-18 00:00: 00 01-16 23:59 :00 No [id number] DIABETES MELLITUS 12 unit 3 TIMES DAILY 12 unit 3 TIMES DAILY (route: subcutaneo us) Med Classific ation: Endocrine carvedilol 25 mg tablet 2023-06 2-13 00:00: 00 11-17 23:59 :00 No [id number] HYPERTENSIO N Per instruc tions DIRECTED Per instructio ns DIRECTED (route: oral) Med Classific ation: Cardiovas cular Therapy Agents bumetanide 1 mg tablet 3-17 00:00: 00 12-01 23:59 :00 No [id number] FLUID OVERLOAD 1 tablet ONCE DAILY 1 tablet ONCE DAILY (route: oral) Alternate Route: BY MOUTH. Med Classific ation: Cardiovas cular Therapy Agents Nexium 24HR 20 mg capsule,del ayed release 3-17 00:00: 00 Yes [id number] GERD 1 capsule ONCE DAILY 1 capsule ONCE DAILY (route: oral) Alternate Route: BY MOUTH. Med Classific ation: Gastroint estinal Therapy Agents Basaglar KwikPen U-100 Insulin 100 unit/mL (3 mL) subcutaneou s 10-11 00:00: 00 01-16 23:59 :00 No [id number] HYPERGLYCEM [place] 30 unit AT BEDTIME 30 unit AT BEDTIME (route: subcutaneo us) Alternate Route: SUBCUTANE OUS. Med Classific ation: Endocrine bumetanide 1 mg tablet 10-11 00:00: 00 Yes [id number] FLUID OVERLOAD 1 tablet ONCE DAILY 1 tablet ONCE DAILY (route: oral) Alternate Route: BY MOUTH. Med Classific ation: Cardiovas cular Therapy Agents hydralazine 100 mg tablet 10-11 00:00: 00 Yes [id number] IF SYSTOLIC BP ABOVE 180 1 tablet ONCE DAILY 1 tablet ONCE DAILY (route: oral) Alternate Route: BY MOUTH. Med Classific ation: Cardiovas cular Therapy Agents amlodipine 10 mg tablet 11-04 00:00: 00 12-01 23:59 :00 No [id number] HYPERTENSIO N 1 tablet ONCE DAILY 1 tablet ONCE DAILY (route: oral) Med Classific ation: Cardiovas cular Therapy Agents carvedilol 6.25 mg tablet 11-14 00:00: 00 Yes [id number] HYPERTENSIO N 0.5 tablet DIRECTED 0.5 tablet DIRECTED (route: oral) Med Classific ation: Cardiovas cular Therapy Agents gabapentin 100 mg capsule 11-17 00:00: 00 Yes [id number] NERVE PAIN 2 capsule TWICE DAILY 2 capsule TWICE DAILY (route: oral) Med Classific ation: Central Nervous System Agents amlodipine 10 mg tablet 11-16 00:00: 00 Yes [id number] HYPERTENSIO N 0.5 tablet 3 TIMES DAILY 0.5 tablet 3 TIMES DAILY (route: oral) Med Classific ation: Cardiovas cular Therapy Agents doxycycline monohydrate 100 mg capsule 11-19 00:00: 00 11-29 23:59 :00 No [id number] URI 1 capsule TWICE DAILY 1 capsule TWICE DAILY (route: oral) Alternate Route: BY MOUTH. Med Classific ation: Anti-Infe ctive Agents Mounjaro 5 mg/0.5 mL subcutaneou s pen injector 11-19 00:00: 00 Yes [id number] DIABETES MELLITUS 5 mg WEEKLY 5 mg WEEKLY (route: subcutaneo us) Med Classific ation: Endocrine sevelamer HCl 800 mg tablet 12-27 00:00: 00 Yes [id number] HIGH PHOSPHORUS LEVELS 2 tablet 3 TIMES DAILY 2 tablet 3 TIMES DAILY (route: oral) Med Classific ation: Genitouri nary Therapy Basaglar KwikPen U-100 Insulin 100 unit/mL (3 mL) subcutaneou s 01-17 00:00: 00 Yes [id number] DIABETES 40 unit AT BEDTIME 40 unit AT BEDTIME (route: subcutaneo us) Alternate Route: SUBCUTANE OUS. Med Classific ation: Endocrine insulin lispro (U-100) 100 unit/mL subcutaneou s pen 01-17 00:00: 00 Yes [id number] DIABETES 15 unit 3 TIMES DAILY 15 unit 3 TIMES DAILY (route: subcutaneo us) Med Classific ation: Endocrine Mounjaro 5 mg/0.5 mL subcutaneou s pen injector 11-19 00:00: 00 Yes [id number] DIABETES MELLITUS 5 mg WEEKLY 5 mg [...] TIMES PER DAY.] Future Scheduled Test [facility] NURSE TO INSTRUCT ON CHRONIC KIDNEY DISEASE [...] BE ESTABLISHED THAT MEETS ALL PATIENT'S SENIOR CARE NEEDS AND COUNTER SIGNED BY PHYSICIAN. Goal [...] End Date/Time Encounter Type Admission Type [facility]ending [facility] Care Department Encounter ID Discharge Date Discharge Status Discharge Condition Discharge Reason Percent Goals Met 2025-01-17 00:00:00 2025-03-17 00:00:00 Outpatient RECERTIFIC ATION JESSIE MENJIVAR [facility] [id number] 31.82
--- OUTSIDE RECORDS SUMMARY | 2025-01-30 21:10 | XMS_ITS | Clinical Summary ---
Author Organization [facility] Address [address] [place] [address] Care Team Providers Care Defensive Fire Control Systems Operator Name Role Phone Mery Maxwell MD Primary Care Provider [phone] Rohit Butcher MD Unavailable [phone] Allergies Active Allergy Reactions Criticality Noted Date [...] MINI PEN NEEDLES 31G X 5 MM [facility] 4 Active BD VEO INSULIN SYRINGE U/F 31G X 15/64 0.5 ML [facility] 4 Active TRUE METRIX BLOOD GLUCOSE TEST [...] Active Continuous Glucose Transmitter (DEXCOM G6 TRANSMITTER) [facility] 4 Active FIASP PENFILL 100 UNIT/ML Solution [...] Type Department Care Team Description 01/19/2025 Telephone [facility] [address] [place] [address] Rohit Butcher MD Blood Pressure (11/14/24 - 01/13/25 BP Log ) 01/18/2025 Results Follow-Up [facility] [address] [place] [address] Mirela Mosley MA LIPID PANEL 01/17/2025 11:44 AM CDT - 01/17/2025 11:59 PM CDT Hospital Encounter [facility] [address] [place] [address] Rohit Butcher MD Discharge Disposition: Home or Self Care (Routine Discharge) 01/17/2025 10:45 AM CDT Office Visit [facility] [address] [place] [address] Rohit Butcher MD Hypertension 01/17/2025 Travel 2024 Telephone [facility] [address] [place] [address] Rohit Butcher MD Results 12/06/2024 Telephone [facility] [address] [place] [address] Rohit Butcher MD Blood Pressure 12/01/2024 Telephone [facility] [address] [place] [address] Rohit Butcher MD Other 12/01/2024 Travel 11/25/2024 Telephone [facility] [address] [place] [address] Rohit Butcher MD Surgical Clearance 11/18/2024 Telephone [facility] [address] [place] [address] Rohit Butcher MD Refill Request 11/16/2024 Telephone [facility] [address] [place] [address] Rohit Butcher MD Blood Pressure (11/06/24 - 11/14/24 BP Log ) 11/14/2024 3:30 PM CDT Office Visit [facility] [place] [address] Rohit Butcher MD Follow Up (Follow up ER visit, HTN) 11/14/2024 Travel 11/09/2024 Abstract [facility] [address] [place] [address] Abstract, Doc Pccl 11/08/2024 Telephone [facility] [address] [place] [address] Rohit Butcher MD Appointment Request 11/06/2024 Scan [facility] [address] [place] [address] Scanned, Doc Pccl ECG (SCAN) from Last [...] drink = 0.6 oz pur e alcohol) [facility] Utilities Answer Date Recorded In the past 12 months has e [employer], gas, oil, or water Senior Living threatened to shut off services in your [...] living in a mcc (including now)? No 03/28/2024 Sex and Gender Information Value Date Recorded Sex Assigned at Male 07/22/2024 12:34 PM HOG COOLER Legal Sex Male 6:24 PM CDT Gender Identity Not on file Sexual Orientation Not on file Last Filed Vital Signs Vital Sign Reading Time Taken Comments Blood Pressure 134/82 01/17/2025 11:03 AM CDT Pulse 89 01/17/2025 11:03 AM CDT Temperature 37.1 C (98.7 F) 05/28/2024 12:32 AM HOG COOLER Respiratory Rate 18 01/17/2025 11:03 AM CDT Oxygen Saturation 97% 01/17/2025 11:03 AM CDT Inhaled Oxygen Concentration - - Weight 127 kg (280 lb) 01/17/2025 11:03 AM CDT Height 188 cm (6' 2) 01/17/2025 11:03 AM CDT Body Mass Index 35.95 01/17/2025 11:03 AM CDT Plan of Treatment Upcoming Encounters Date Type Department Care Team (Late st Contact Info) Description 05/04/2025 1:30 PM HOG COOLER Office Visit [facility] [address] [place] [phone] Ariana Walsh, BED SPRING MAKER, UNINDENTURED APPRENTICE-C [address] [facility] [address] [place] [phone] Health Maintenance Due Date Last Done Comments [...] and discharge planning Lifestyle No Zakiya Rocha school bus attendant Procedure Name Priority Date/Time Associated Diagnosis Comments [...] CHOLESTEROL 111 MG/DL 01/17/2025 6:[address] [facility] Comment:DESIRABLE: <200 TRIGLYCERIDES 122 MG/DL 01/17/2025 6:[address] [facility] Comment:<150 NORMAL HDL 37(L) >39 MG/DL 01/17/2025 6:[address] [facility] LDL-C 50 MG/DL 01/17/2025 6:[address] [facility] Comment:<100 OPTIMAL VLDL CALCULATION 24 MG/DL 01/18/20 6:[address] [facility] Comment:REFERENCE RANGE NOT ESTABLISHED CHOL/HDL RATIO 3.0 01/17/2025 6:[address] [facility] Comment:REFERENCE RANGE NOT ESTABLISHED LDL/HDL 1.3 01/17/2025 6:[address] [facility] Comment:REFERENCE RANGE NOT ESTABLISHED NON HDL CHOLESTEROL 74 MG/DL 01/17/2025 6:[address] [facility] Comment:REFERENCE RANGE NOT ESTABLISHED 01/17/2025 11:5 2 AM CDT Rohit Butcher MD LABORATORY Final Result [facility] [address] [place] [address], [id number] * Ambulatory BP Monitor (12/06/2024 4:37 PM [...] us Doc Pccl Scanned SCANNING Final Result [facility] ONBASE * (ABNORMAL) COMPREHENSIVE METABOLIC PANEL (11/06/2024) Pathologist [facility] SODIUM S/P/B 138 GLUCOSE 335 mg/dL AST 28 BUN 37 CREATININE S/P/B 5.65(A) 0.7 - 1.3 CALCIUM S/P/B 8.7 POTASSIUM S/P/B 3.7 CHLORIDE S/P/B 101 ALT 18 GFR ESTIMATE 11 Narrative Resulting Agency Comment [facility] Default History Genericprovider LABORATORY Final Result * CBC, MANUAL DIFF (11/06/2024) Pathologist [facility] WBC 5.9 HGB 11.3 HCT 35.5 PLT 196 Narrative Resulting Agency Comment [facility] Default History Genericprovider LABORATORY Final Result * MAGNESIUM (11/06/2024) Pathologist [facility] MAGNESIUM 1.5 Narrative Resulting Agency Comment [facility] Default History Genericprovider LABORATORY Final Result * OCCULT BLOOD, FECES (03/28/2024 12:10 PM CDT) Pathologist [facility] OCCULT BLOOD FECAL NEGATIVE NEGATIVE 03/28/2024 12:19 PM CDT [facility] STOOL SPECIMEN / Unknown 03/28/2024 12:10 PM CDT us Kelly S Goodwine MD BODY FLUIDS AND STOOLS ORDER KRIS Final Result [facility] [address] [place] [address], [place] [phone] * (ABNORMAL) HEMOGLOBIN, GLYCOSYLATED (09/02/2023 2:49 AM CDT) HGB A1C 7.4(H) <5.7 % 09/02/2023 3:[address] [facility] ESTIMATED AVG GLUCOSE 166(H) 74 - 114 MG/DL 09/02/2023 3:[address] [facility] 09/02/2023 2:49 AM CDT Troy Berger MD LABORATORY Final Res ult Performing Organization Address City/[facility] Co de Phone Number [facility] [address] [place] [address], [place] [phone] [id number] from Last 3 Months or Most Recently [...] 10:23 PM 09/04/2023 8:48 PM Care Teams Defensive Fire Control Systems Operator Relationship Specialty Start Date End Date Mery Maxwell MD [address] [place] [address] PCP - General FAMILY PRACTICE 08/19/23 Rohit Butcher MD [address] [place] [address] [place] [address] Physician INTERVENTIONAL CARDIOLOGY 11/08/24
--- NOTE | 2025-01-30 22:03 | ED.GENADULT ---
HPI - General Adult General Chief complaint: Unspecified Stated complaint: lightheaded Source: patient Mode of arrival: EMS Limitations: no limitations History of Present Illness HPI narrative: Patient is a 54-year-old male with a bout of hypotension this evening at [facility]. He got cold and clammy and called EMS. EMS got normal blood pressure values. Patient was brought to ER with normal blood pressure values seen in the ER. Onset (ago): hour(s) ( One) Location: head ( wooziness during event) Radiation: non-radiation Severity: mild Severity scale (1-10): 2 Quality: other ( no pain) Pain Consistency: intermittent and now resolved Relieving factors: none Exacerbating factors: none Associated symptoms: denies other symptoms Treatments prior to arrival: none Related Data Allergies Allergy/AdvReac Type Severity Reaction Status Date / Time amoxicillin Allergy Intermediate Hives Verified 01/30/25 20:37 Review of Systems Review of Systems: All systems reviewed & are unremarkable except as noted in HPI and below Constitutional: Constitutional: Reports no additional constitutional complaints Eyes: Eyes: Reports no additional eye complaints ENT: Reports system reviewed and no additional complaints, except as documented Cardiovascular: Cardiovascular: Reports no additional cardiovascular complaints Respiratory: Respiratory: Reports no additional respiratory complaints Gastrointestinal: Gastrointestinal: Reports no additional gastrointestinal complaints Genitourinary: Genitourinary: Reports no additional male genitourinary complaints Musculoskeletal: Musculoskeletal: Reports no additional musculoskeletal complaints Integumentary/Breasts: Skin/Breast: Reports system reviewed and no additional complaints, except as docu Neurologic: Reports system reviewed and no additional complaints, except as documented Psychiatric: Psychiatric: Reports no additional psychiatric complaints Endocrine: Endocrine: Reports no additional endocrine complaints Hematologic/Lymphatic: Hematologic/Lymphatic: Reports no additional hematologic/lymphatic complaints Allergic/Immunologic: Allergic/Immunologic: Reports no additional allergic/immunologic complaints PMF Past Medical History Medical History AV fistula Atrial fibrillation ESRD (end stage renal disease) Diabetes mellitus Hypertension Social History Social History Social History: ex-smoker Exam Const: General: cooperative, healthy appearing and comfortable HENMT: Head: normal to inspection, No palpable skull fracture present and normocephalic Eyes: General: appearance normal, both eyes and all related structures Visual Bernardo: normal visual bernardo by confrontation Alignment and Position: alignment normal Neck: Neck: normal visual inspection, full ROM and no lymphadenopathy Chest: Chest palpation & inspection: normal inspection of the chest, normal palpation of entire chest wall and normal inspection of the chest Resp: Effort & Inspection: normal respiratory effort, able to speak in complete sentences and normal respiratory pattern Cardio: Jugular venous distension: no JVD Palpation: normal PMI Rate: regular rate GI: Inspection: normal to inspection, no abdominal wall ecchymosis and no edema Back/Spine/Pelvis: Back: no CVA tenderness, No CVA tenderness, No mass and No erythema Skin: General skin exam: normal color, no rashes or lesions noted and elasticity normal Neuro: General: oriented to person, oriented to place, oriented to time, tone normal and moves all extremities Extrem: General: normal to inspection, full ROM and capillary refill normal Psych: Appearance: grossly normal, well kempt and not disheveled Course Vital Signs Vital signs: Vital Signs Temperature 36.9 C 01/30/25 20:27 Pulse Rate 90 01/30/25 20:27 Respiratory Rate 18 01/30/25 20:27 Blood Pressure 133/69 01/30/25 20:27 Pulse Oximetry 94 01/30/25 20:27 Oxygen Delivery Room Air 01/30/25 20:27 Temperature 36.9 C 01/30/25 20:27 Pulse Rate 90 01/30/25 20:27 Respiratory Rate 18 01/30/25 20:27 Blood Pressure 133/69 01/30/25 20:27 Pulse Oximetry 94 01/30/25 20:27 Oxygen Delivery Room Air 01/30/25 20:27 Medical Decision Making [facility] Narrative Medical decision making narrative: patient is a 54-year-old male with a hypotensive event at [facility] that resolved on its own and here for that complaint. Blood pressures have only been normal and he was monitored for an hour. Asymptomatic. Normal blood pressures. No laboratory workup needed at this time. No imaging needed at this time. Patient will hold his blood pressure medicine until he sees the primary doctor this week. Vital Signs Vital Signs: Vital Signs Temperature 36.9 C 01/30/25 20:27 Pulse Rate 90 01/30/25 20:27 Respiratory Rate 18 01/30/25 20:27 Blood Pressure 133/69 01/30/25 20:27 Pulse Oximetry 94 08/18/25 20:27 Oxygen Delivery Room Air 01/30/25 20:27 Temperature 36.9 C 01/30/25 20:27 Pulse Rate 90 01/30/25 20:27 Respiratory Rate 18 01/30/25 20:27 Blood Pressure 133/69 01/30/25 20:27 Pulse Oximetry 94 01/30/25 20:27 Oxygen Delivery Room Air 01/30/25 20:27 Discharge Plan Discharge Clinical Impression: Hypertension Qualifiers: Hypertension type: unspecified Qualified Code(s): I10 - Essential (primary) hypertension Patient Disposition: Home Condition: Stable Instructions: Chronic Hypertension (DC) Patient Language: Slovak Prescriptions: No Action hydralazine 25 mg tablet 25 mg PO BID Qty: 20 0RF Follow-up/Referrals: Hans,Mery Tsai MD [Primary Care Provider] - Time of Disposition: 21:49
== END 2025-01-30 22:19 | disposition home or self-care (01) ==
PROVIDERS: Emergency Provider Emergency Medicine; PCP Family Medicine
DX: E11.22 Type 2 diabetes mellitus with diabetic chronic kidney disease (principal); I12.0 Hypertensive chronic kidney disease with stage 5 chronic kidney disease or end stage renal disease; N18.6 End stage renal disease; I48.91 Unspecified atrial fibrillation
CPT/HCPCS: 99284

== ENCOUNTER 2025-02-27 16:32 | Emergency (ER) | payer MEDICARE, MEDICAID, SELFPAY ==
[2025-02-27] VITALS (20 sets, daily range): BP systolic 111–175; BP diastolic 76–114; PULSE 99–134; RESP 17–31; TEMP 36.8; O2SAT 93–98
--- NOTE | ~2025-02-27 | XR_ITS ---
EXAMINATION: XR chest 1V portable COMPARISON: No comparisons available. HISTORY: right lower chest pain FINDINGS: Mild pulmonary venous congestion. No pneumothorax. Mild cardiomegaly. Mediastinal and hilar contours are within normal limits. Bony thorax no acute abnormality. Miscellaneous: None Impression: Mild CHF Reviewed, dictated and finalized at location A. Impression: Mild CHF
--- NOTE | 2025-02-27 16:39 | ED_ITS ---
HPI - Chest Pain General Chief Complaint: Upper Respiratory Infection Stated Complaint: cough Time Seen by Provider: 02/27/25 16:32 Source: patient Mode of arrival: EMS Limitations: no limitations History of Present Illness HPI narrative: 54 year old male arrives to the Emergency Department via EMS. Patient complains of right lower chest pain. Onset 3 days ago. Pain intermittent. No exacerbating or alleviating factors. No shortness of breath. No trauma. Not currently having pain. History of Afib, DM, HTN, renal failure /dialysis. patient has peripheral neuropathies and limited mobility. MD complaint: chest pain Onset (ago): day(s) (3) Timing of current episode: episodic Pain location: right chest (right lower) Pain radiation: none Quality: sharp Relieving factors: nothing Exacerbating factors: nothing Risk Factors Coronary artery disease risk factors: diabetes and hypertension Related Data Home Medications ?Medication ?Instructions ?Recorded ?Confirmed ?Last Taken ?Type allopurinol 100 mg tablet 100 mg PO DAILY 02/27/2502/27/25 History amiodarone 200 mg tablet 100 mg PO DAILY 02/27/2502/27/25 History amlodipine 10 mg tablet 10 mg PO DAILY 02/27/2502/1302/27/25 History apixaban 5 mg tablet (Eliquis) 5 mg PO Q12H 02/27/25 0 02/27/25 02/27/25 History atorvastatin 20 mg tablet 20 mg PO QPM 02/27/2502/27/25 History carvedilol 25 mg tablet 25 mg PO Q12H 02/27/2502/2702/27/25 History gabapentin 100 mg capsule 100 mg PO Q8H 02/27/2502/2702/27/25 History midodrine 10 mg tablet 10 mg PO Q8H 02/27/2502/27/25 History sevelamer carbonate 800 mg tablet 800 mg PO .q8 h 02/1302/27/25 02/27/25 History tirzepatide 10 mg/0.5 mL 10 mg subcut WEEKLY 02/27/25 02/27/25 02/27/25 History subcutaneous pen injector (Mounjaro) Allergies Allergy/AdvReac Type Severity Reaction Status Date / Time amoxicillin Allergy Intermediate Hives Verified 02/27/25 16:34 Review of Systems 2 Review of Systems: All systems reviewed & are unremarkable except as noted in HPI and below Constitutional: Constitutional: Reports as per HPI, Denies body ache(s) and Denies chills Eyes: Eyes: Reports as per HPI ENT: Reports system reviewed and no additional complaints, except as documented Cardiovascular: Cardiovascular: Reports as per HPI and Reports chest pain Respiratory: Respiratory: Reports as per HPI and Reports pain with cough Gastrointestinal: Gastrointestinal: Reports as per HPI, Denies abdominal pain, Denies diarrhea, Denies nausea and Denies vomiting Musculoskeletal: Musculoskeletal: Reports no additional musculoskeletal complaints Integumentary/Breasts: Skin/Breast: Reports system reviewed and no additional complaints, except as docu Neurologic: Reports system reviewed and no additional complaints, except as documented Psychiatric: Psychiatric: Reports no additional psychiatric complaints Endocrine: Endocrine: Reports no additional endocrine complaints Hematologic/Lymphatic: Hematologic/Lymphatic: Reports no additional hematologic/lymphatic complaints Allergic/Immunologic: Allergic/Immunologic: Reports no additional allergic/immunologic complaints [facility] Past Medical History Medical History AV fistula Atrial fibrillation ESRD (end stage renal disease) Diabetes mellitus Hypertension Social History Social History Social History: ex-smoker Course Course Emergency Course: 54 y/o male arrives to the ED via EMS c/o right lower chest pains. Onset 3 days ago. Intermittent. No pain at present. Pain sharp, non-radiating, no SOB, no abdominal pain PE: obese, decreased lung sounds at bases, chest wall non-tender to palpation, abdomen non-tender to palpation. CBC: H/H 11/33.7, Plt 199; wbc 7.3 with 72 S, 19 L, 6 M CMP: Na 141, K 3.8, Cl 97, CO2 32, Glc 185, BUN 27, Cr 6.5 TNI: 0.073 / 3 Hr TNI: 0.082 EKG: atrial flutter, 124 D-dimer: 0.35 CXR: mild PVC Tx: cardiac rehabilitation program director, pulse ox, saline lock. Amiodarone 150 mg IV over 10 minutes, then 1 mg/min x 6 hours (4314) [facility] contacted, no beds (5208) [facility] contacted, no [place] [facility] (3734) [facility] transfer contacted. Report given. Will call back. (1824) Discussed with Dr. Velazco (Hospitalist - [facility]). Report given and patient accepted for transfer. (2047) Bed assigned, Room 285, Bed 2 (2114) EMS arrived for transfer (2129) EMS departing with transfer Vital Signs Vital signs: Vital Signs Temperature 36.8 C 02/27/25 16:35 Pulse Rate 101 H 02/27/25 16:35 Respiratory Rate 20 02/27/25 16:35 Blood Pressure 150/100 H 02/27/25 16:35 Pulse Oximetry 96 02/27/25 16:35 Oxygen Delivery Room Air 02/27/25 16:35 Temperature 36.8 C 02/27/25 16:35 Pulse Rate 126 H 02/27/25 18:34 Respiratory Rate 19 02/27/25 16:49 Blood Pressure 146/106 H 02/27/25 18:34 Pulse Oximetry 96 02/27/25 16:49 Oxygen Delivery Autopap 02/27/25 16:35 Transfer Transfered to: [facility] Transfer rationale: Cardiology, control of atrial fib/flutter, monitor serial cardiac enzymes, further medical management Accepting physician: Dr. Velazco (Hospitalist, [facility]) MDM - Chest Pain Lab Data 02/27/25 16:52 02/27/25 16:52 Labs: Lab Results 02/27/25 02/27/25 Range/Units 16:52 20:07 WBC 7.3 (4.8-10.8) K/mm3 RBC 3.27 L (4.70-6.10) M/mm3 Hgb 11.0 L (14.0-18.0) g/dL Hct 33.7 L (40.0-54.0) % MCV 103.1 H (78.0-102.0) fL MCH 33.6 H (27.0-31.0) pg MCHC 32.6 (32-36) g/dL RDW 13.4 (11.6-14.4) % Plt Count 199 (150-420) K/mm3 MPV 9.3 (8.7-11.0) fl Immature Gran % (Auto) 0.6 H (0.0-0.0) % Neut % (Auto) 72.0 H (50.0-70.0) % Lymph % (Auto) 19.3 (18.0-42.0) % Prentiss % (Auto) 5.9 (2.0-11.0) % Eos % (Auto) 1.5 (1.0-6.0) % Baso % (Auto) 0.7 (0.0-1.0) % Lymph # (Auto) 1.40 (1.10-4.50) K/mm3 Prentiss # (Auto) 0.43 (0.10-0.90) K/mm3 Eos # (Auto) 0.11 (0.02-0.50) K/mm3 Baso # (Auto) 0.05 (0.00-0.10) K/mm3 Abs Immat Gran (auto) 0.04 H (0.00-0.00) K/mm3 Absolute Neuts (auto) 5.23 (1.70-7.20) K/mm3 Absolute Nucleated RBC 0.00 (0.00-0.00) K/mm3 Nucleated RBC % 0.0 (0-0.0) % D-Dimer 0.35 (0.19-0.50) mg/L Sodium 141 (137-145) mmol/L Potassium 3.8 (3.4-5.0) mmol/L Chloride 97 L (98-107) mmol/L Carbon Dioxide 32 H (22-30) mmol/L Anion Gap 12 (4-12) mmol/L BUN 27 H D (9-20) mg/dL Creatinine 6.50 H (0.7-1.3) mg/dL Estim Creat Clear Calc 17 ml/min Estimated GFR 9 L (59 - ) Glucose 185 H (65-110) mg/dL Calculated Osmolality 302 H (285-295) mOsm/kg Calcium 9.7 (8.4-10.2) mg/dL Total Bilirubin 0.6 (0.2-1.3) mg/dL AST 24 (17-59) U/L ALT 13 (6-50) U/L Alkaline Phosphatase 55 (38-126) U/L Troponin I 0.073 H* 0.082 H* (0.000-0.034) ng/mL Total Protein 9.5 H (6.3-8.2) g/dL Albumin 4.2 (3.5-5.1) g/dL Discharge Plan Discharge Clinical Impression: Atrial fibrillation and flutter, Elevated troponin I level, Chronic kidney disease, Hypertension, Diabetes mellitus Patient Disposition: Acute Care Hospital Condition: Stable Patient Language: Hungarian Prescriptions: No Action hydralazine 25 mg tablet 25 mg PO BID Qty: 20 0RF allopurinol 100 mg tablet 100 mg PO DAILY amiodarone 200 mg tablet 100 mg PO DAILY amlodipine 10 mg tablet 10 mg PO DAILY Eliquis 5 mg tablet 5 mg PO Q12H atorvastatin 20 mg tablet 20 mg PO QPM carvedilol 25 mg tablet 25 mg PO Q12H gabapentin 100 mg capsule 100 mg PO Q8H midodrine 10 mg tablet 10 mg PO Q8H sevelamer carbonate 800 mg tablet 800 mg PO .q8 h Mounjaro 10 mg/0.5 mL pen injector 10 mg SUBCUT WEEKLY Follow-up/Referrals: UNKNOWN,DOCTOR [Non-Staff] Time of Disposition: 18:38
--- NOTE | 2025-02-27 16:42 | ECG_ITS ---
Test Date: 2025-02-27 16:58:00 Measurements Intervals [place] Rate: 124 P: 0 VA: 0 QRS: 32 QRSD: 100 T: 14 QT: 347 QTc: 500 Interpretive Statements ATRIAL FLUTTER/TACHYCARDIA WITH RAPID VENTRICULAR RESPONSE POSSIBLE INFERIOR MYOCARDIAL INFARCTION , PROBABLY OLD [30 ms Q WAVE IN II/aVF] ABNORMAL ECG Electronically Signed On 02-28-2025 08:10:50 CDT by Toño Polk M.D.
[2025-02-27 16:56] LABS: Hematocrit 33.7 % (40.0-54.0); Hemoglobin 11.0 g/dL (14.0-18.0); Immature Granulocyte Percent A 0.6 % (0.0-0.0); Lymphocytes Absolute Auto 1.40 K/mm3 (1.10-4.50); Mean Corpuscular HGB Conc 32.6 g/dL (32-36); Mean Corpuscular Hemoglobin 33.6 pg (27.0-31.0); Mean Corpuscular Volume 103.1 fL (78.0-102.0); Nucleated Red Blood Cells Absolute Auto 0.00 K/mm3 (0.00-0.00); Nucleated Red Blood Cells Perc 0.0 % (0-0.0); Platelet Count Result 199 K/mm3 (150-420); Red Blood Count 3.27 M/mm3 (4.70-6.10); White Blood Count 7.3 K/mm3 (4.8-10.8)
[2025-02-27 17:07] LABS: Alanine Aminotransferase 13 U/L (6-50); Albumin Level 4.2 g/dL (3.5-5.1); Alkaline Phosphatase 55 U/L (38-126); Anion Gap 12 mmol/L (4-12); Aspartate Amino Transferase 24 U/L (17-59); Bilirubin,Total 0.6 mg/dL (0.2-1.3); Blood Urea Nitrogen 27 mg/dL (9-20); Calcium 9.7 mg/dL (8.4-10.2); Carbon Dioxide 32 mmol/L (22-30); Chloride 97 mmol/L (98-107); Estimated CRCL calculation 17 ml/min; Estimated Glomerular Filt Rate 9; Glucose 185 mg/dL (65-110); Osmolality Calculated 302 mOsm/kg (285-295); Potassium 3.8 mmol/L (3.4-5.0); Sodium 141 mmol/L (137-145); Total Protein 9.5 g/dL (6.3-8.2)
[2025-02-27 17:31] LABS: Troponin I 0.073 ng/mL (0.000-0.034)
--- OUTSIDE RECORDS SUMMARY | 2025-02-27 18:57 | XMS_ITS | Patient Health Record ---
Author Organization [facility] Felicia logan Billing Info Address [address] [place] [address] [place] [address] Care Team Providers [employer] Name Role Phone [facility] Primary Care Provider Unavailable Allergies Allergen (clinical [...] Problem Status W/U Status Risk Notes Problem 463385904 Persistent atria l fibrillation (I48.1) Active confirmed Problem 072696589 Chronic atrial fibrillation (I48.2) Active confirmed Problem Chronic diastolic heart failure (215388743) Chronic diastolic (congestive) heart failure (I50.32) Active confirmed Problem 191184339 Erectile dysfunction due to diseases classified elsewhere (N52.1) Active confirmed Problem 469994381 Permanent atrial fibrillation (I48.21) Active confirmed Problem 37061054 Essential hypertension (I10) Active confirmed Problem 14438666 ADRYAN (obstructive sleep apnea) (G47.33) Active confirmed Problem 73988616 JOHANSEN (dyspnea on exertion) (R06.09) Active confirmed Problem 351353901 Obesity (BMI 30-39.9) (E66.9) Active confirmed Problem 836287608 Paroxysmal a-fib (I48.0) Active confirmed Problem 527587844 BMI 37.0-37.9, adult (Z68.37) Active confirmed Problem 867025596 Acute renal insufficiency (N28.9) Active confirmed Problem 5971669032200 CAD in jackson artery (I25.10) Active confirmed Problem 762797579 buttermaker curren t use of insulin (Z79.4) Active confirmed Problem 3855874951042 Coronary artery disease involving jackson coronary artery of jackson heart without angina pectoris (I25.10) Active confirmed Problem 27802329 Anemia of unknow n etiology (D64.9) Active confirmed Problem 99193251 Hyperlipidemia, unspecified hyperlipidemia type (E78.5) Active confirmed Problem Chronic diastolic heart failure (388225145) Chronic diastolic congestive heart failure (I50.32) Active confirmed Problem 060910047 Edema, unspecified type (R60.9) Active confirmed Problem 77789690 Type 2 diabetes mellitus with complication, with long-term current use of insulin (E11.8) Active confirmed Plan Of Treatment Pending Test Test Name Order Date CARDIOVERSION (59689) CV* 12/31/2021 EPS - ABLATION, A-FIB (68642, 92411) CV* 12/31/2021 IMPLANT - LOOP RECORDER (36457) CV* 12/13 DOMI (03243) CV* 12/31/2021 DOMI (25936) CV* 01/02/2022 Insurance Providers Payer Name Payer Address Payer Phone Subscriber Number Group Number Insured Name Patient Relationship to Insured Coverage Start Date Coverage End Date [facility] [address] ATTN CLAIMS [place], [place] [id number] Aaron Campos Self - patient is the insured 2 Medical (General) History Medical History History ICD Code Chronic atrial fibrillation I48.2 Essential hypertension I10 buttermaker current use of insulin Z79.4 Type 2 [...] vomiting 05-14-19 [facility]izz[facility] 07-31-2019 [facility]Chest [facility] 10-26-19 [facility] [place] 07-23-20 [facility]Anasarca 11-01-2020
--- OUTSIDE RECORDS SUMMARY | 2025-02-27 18:59 | XMS_ITS ---
Author Organization [facility] ([facility]) Address [address] [place] [id number] Care Team Providers Care [employer] Supervisor Name Role Phone Unavailable Unavailable Unavailable Allergies, Adverse Reactions, Alerts Allergy Name Allergy Type Status Severity Reaction(s) Onset Date Inactive Date Treating Clinician Comments Amoxicillin Allergy Active Mild Allergy Hives 2021-06 21:15: 36 Medications Ordered Medication Name Filled Medication Name Start Date Stop Date Current Medication? Ordering Clinician Indication Dosage Frequency Signature (SIG) Comments Components Mircera 02-23 05:00: 00 Yes [id number] Number of Repeats Allowed: Frequency: JIGNESH dosing, every four weeks calcitriol 02-21 05:00: 00 Yes [id number] Number of Repeats Allowed: Frequency: Three times a week calcitriol 8 16:17: 25 Yes [id number] Number of Repeats Allowed: Frequency: Three times a week calcitriol 605 16:11: 02 Yes [id number] Number of Repeats Allowed: Frequency: Three times a week calcitriol 11-03 21:20: 04 Yes [id number] Number of Repeats Allowed: Frequency: Three times a week Lantus 10-19 21:20: 48 Yes Number of Repeats Allowed: Frequency: Once a day, at bedtime hydrALAZINE HCl 10-19 21:20: 26 Yes Number of Repeats Allowed: Frequency: As needed Mircera 2-20 06:00: 00 Yes [id number] Number of Repeats Allowed: Frequency: JIGNESH dosing, every four weeks ONS [facility] 2023-06 20:24: 28 Yes [id number] Number of Repeats Allowed: Frequency: Every Dialysis Treatment Insulin Lispro 2023-06 2-03 22:16: 22 Yes Number of Repeats Allowed: Frequency: Three times a day Midodrine HCl 2023-06 0-19 18:11: 42 Yes Number of Repeats Allowed: Frequency: As needed heparin sodium, porcine 2023-06 015 18:17: 11 Yes [id number] Number of Repeats Allowed: Frequency: Every Dialysis TreatmentD osesOrdere d: Hourly Dose 300 Units/Hr 1:1000 Units/mLRo toby: Intravenou s heparin sodium, porcine 2023-0615 18:16: 48 Yes [id number] Number of Repeats Allowed: Frequency: Every Dialysis [...] Allowed: Frequency: Once a day, at bedtime Venofer 08-13 06:00: 00 Yes [id number] Number of Repeats Allowed: Frequency: One time a weekDosesO rdered: Maintenanc e Dose 50 Milligram Route: Intravenou s clonidine 08-04 06:00: 00 Yes [id number] Number of Repeats Allowed: Frequency: Every 4 hours as needed Antacid Extra Strength 08-04 06:00: 00 Yes [id number] Number of Repeats Allowed: Frequency: Every 4 hours as needed Normal Saline Solution 0.9% NaCl 08-04 06:00: 00 Yes [id number] Number of Repeats Allowed: Frequency: As needed Oxygen 08-04 06:00: 00 Yes [id number] Number of Repeats Allowed: Frequency: As needed Insta-Gluco se 08-04 06:00: 00 Yes [id number] Number of Repeats Allowed: Frequency: Every 30 minutes as needed Gabapentin 08-04 06:00: 00 Yes Number of Repeats Allowed: Frequency: Two times a day diphenhydra mine hydrochlori de 08-04 06:00: 00 Yes [id number] Number of Repeats Allowed: Frequency: Every 4 hours as needed Nitrostat 08-04 06:00: 00 Yes [id number] Number of Repeats Allowed: Frequency: Every 5 minutes as needed acetaminoph en 08-04 06:00: 00 Yes [id number] Number of Repeats Allowed: Frequency: Every 4 hours as needed Problems This patient has no known problems. Procedures Procedure Date / Time Performed Performing Clinician Sharon ce Details Central Venous Catheter (CVC) 2023-03-16 05:00:00 Access Site Chest (Right) Access Use Start Date 2023-03-16 05:00:0 0 Access Use End Date 2023-05-29 06:00:00 AV Isxfmld0160-07-08 05:00:00 Access Site Forearm (Left) Access Use Start Date 2023-04-21 00:00:0 0 Central Venous Catheter (CVC)2022-03-25 05:00:00 Access Site Chest (Right) Access Use End Date 2023-03-16 05:00:00 DIALYSIS TREATMENT INFORMATION Conventional Hemodialysis Date Type Treatment Start Date Treatment End Date Pre-Treatment Vitals Post-Treatment Vitals Weight Gain BFR DFR Actual UF Dialysis Access Septe er 2024 In-Ce nter Hemod ialys is Treat ment 2025-02-27 T12:25:43. 000Z 2025-02-27 T16:26:43. 000Z BP Sitting (Pre-Dialysis) 161/95 mmHg BP Sitting (Post-D ialysis ) 148/ 88 mmHg Sitting Heart Rate Pre-Dialysis 104 BPM Sitting H eart Rate Post-Dialysis 106 BPM Temperature Pre-Dialysis 95.8 degF Temperature Post -Dialysis 97.9 degF February 22, 2025 In-Center Hemodialysis Treatment 7833-77-15Y34:18:23.000Z 8379-03-82F29:24:24.000Z BP Sitting (Pre-Dialysis) 173/89 mmHg BP Sitting (Post-Dialysis) 178/102 mmHg Concurrent Access: falseAV Fistula Forearm (Left) Arterial Sitting Heart Rate Pre-Dialysis 78 BPM Sitting H eart Rate Post-Dialysis 81 BPM Temperature Pre-Dialysis 98.3 degF Temperature Post -Dialysis 97.9 degF February 20, 2025 In-Center Hemodialysis Treatment 8865-72-17K26:28:51.000Z 4399-31-67Y22:30:52.000Z BP Sitting (Pre-Dialysis) 201/98 mmHg BP Sitting (Post-Dialysis) 183/103 mmHg Concurrent Access: falseAV Fistula Forearm (Left) Arterial Sitting Heart Rate Pre-Dialysis 80 BPM Sitting H eart Rate Post-Dialysis 79 BPM Temperature Pre-Dialysis 98 degF Temperature Post -Dialysis 97.9 degF February 17, 2025 In-Center Hemodialysis Treatment 1029-70-00O70:19:00.000Z 3942-93-93U55:20:36.000Z BP Sitting (Pre-Dialysis) 176/95 mmHg BP Sitting (Post-Dialysis) 170/95 mmHg Concurrent Access: falseAV Fistula Forearm (Left) Arterial Sitting Heart Rate Pre-Dialysis 76 BPM Sitting H eart Rate Post-Dialysis 78 BPM Temperature Pre-Dialysis 98 degF Temperature Post -Dialysis 97.9 degF February 15, 2025 In-Center Hemodialysis Treatment 3611-25-43F95:33:03.000Z 8741-83-96V26:34:04.000Z BP Sitting (Pre-Dialysis) 170/93 mmHg BP Sitting (Post-Dialysis) 190/96 mmHg Concurrent Access: falseAV Fistula Forearm (Left) Arterial Sitting Heart Rate Pre-Dialysis 75 BPM Sitting H eart Rate Post-Dialysis 76 BPM Temperature Pre-Dialysis 97.9 degF Temperature Post -Dialysis 97.9 degF February 10, 2025 In-Center Hemodialysis Treatment 9141-32-48V24:12:42.000Z 7664-46-97D47:19:42.000Z BP Sitting (Pre-Dialysis) 166/88 mmHg BP Sitting (Post-Dialysis) 157/82 mmHg Concurrent Access: falseAV Fistula Forearm (Left) Arterial Sitting Heart Rate Pre-Dialysis 83 BPM Sitting H eart Rate Post-Dialysis 76 BPM Temperature Pre-Dialysis 97.9 degF Temperature Post -Dialysis 97.9 degF February 08, 2025 In-Center Hemodialysis Treatment 8248-12-21V34:23:09.000Z 9275-61-60S96:29:10.000Z BP Sitting (Pre-Dialysis) 163/82 mmHg BP Sitting (Post-Dialysis) 146/78 mmHg Concurrent Access: falseAV Fistula Forearm (Left) Arterial Sitting Heart Rate Pre-Dialysis 79 BPM Sitting H eart Rate Post-Dialysis 83 BPM Temperature Pre-Dialysis 97.4 degF February 06, 2025 In-Center Hemodialysis Treatment 0737-80-87B47:15:37.000Z 0836-58-71J36:17:37.000Z BP Sitting (Pre-Dialysis) 161/83 mmHg BP Sitting (Post-Dialysis) 162/90 mmHg Concurrent Access: falseAV Fistula Forearm (Left) Arterial Sitting Heart Rate Pre-Dialysis 93 BPM Sitting H eart Rate Post-Dialysis 77 BPM Temperature Pre-Dialysis 96.4 degF Temperature Post -Dialysis 97.5 degF February 03, 2025 In-Center Hemodialysis Treatment 1549-79-56G47:14:00.000Z 9916-67-69L38:23:49.000Z BP Sitting (Pre-Dialysis) 155/83 mmHg BP Sitting (Post-Dialysis) 139/72 mmHg Concurrent Access: falseAV Fistula Forearm (Left) Arterial Sitting Heart Rate Pre-Dialysis 90 BPM Sitting H eart Rate Post-Dialysis 85 BPM Temperature Pre-Dialysis 97.3 degF Temperature Post -Dialysis 97.7 degF February 01, 2025 In-Center Hemodialysis Treatment 2625-95-49Z95:17:16.000Z 0278-28-25W50:29:16.000Z BP Sitting (Pre-Dialysis) 153/82 mmHg BP Sitting (Post-Dialysis) 140/76 mmHg Concurrent Access: falseAV Fistula Forearm (Left) Arterial Sitting Heart Rate Pre-Dialysis 90 BPM Sitting H eart Rate Post-Dialysis 80 BPM Temperature Pre-Dialysis 97.7 degF Temperature Post -Dialysis 97.7 degF January 30, 2025 In-Center Hemodialysis Treatment 3726-96-04I37:18:43.000Z 3406-86-03U27:20:43.000Z BP Sitting (Pre-Dialysis) 147/80 mmHg BP Sitting (Post-Dialysis) 169/92 mmHg Concurrent Access: falseAV Fistula Forearm (Left) Arterial Sitting Heart Rate Pre-Dialysis 94 BPM Sitting H eart Rate Post-Dialysis 83 BPM Temperature Pre-Dialysis 96.9 degF Temperature Post -Dialysis 98.1 degF January 27, 2025 In-Center Hemodialysis Treatment 4744-00-26I06:16:54.000Z 9805-86-59V19:51:55.000Z BP Sitting (Pre-Dialysis) 142/72 mmHg BP Sitting (Post-Dialysis) 120/64 mmHg Concurrent Access: falseAV Fistula Forearm (Left) Arterial Sitting Heart Rate Pre-Dialysis 91 BPM Sitting H eart Rate Post-Dialysis 89 BPM Temperature Pre-Dialysis 98.7 degF Temperature Post -Dialysis 98.1 degF January 25, 2025 In-Center Hemodialysis Treatment 9963-87-95E98:15:21.000Z 3976-93-48N39:49:22.000Z BP Sitting (Pre-Dialysis) 133/77 mmHg BP Sitting (Post-Dialysis) 135/74 mmHg Concurrent Access: falseAV Fistula Forearm (Left) Arterial Sitting Heart Rate Pre-Dialysis 100 BPM Sitting H eart Rate Post-Dialysis 89 BPM Temperature Pre-Dialysis 97.7 degF Temperature Post -Dialysis 97.7 degF January 23, 2025 In-Center Hemodialysis Treatment 2858-80-53N31:16:49.000Z 7702-08-36E46:49:48.000Z BP Sitting (Pre-Dialysis) 155/82 mmHg BP Sitting (Post-Dialysis) 152/82 mmHg Concurrent Access: falseAV Fistula Forearm (Left) Arterial Sitting Heart Rate Pre-Dialysis 95 BPM Sitting H eart Rate Post-Dialysis 86 BPM Temperature Pre-Dialysis 97.7 degF Temperature Post -Dialysis 97.7 degF January 20, 2025 In-Center Hemodialysis Treatment 9537-67-71U61:08:00.000Z 3602-30-42W98:40:00.000Z BP Sitting (Pre-Dialysis) 163/80 mmHg BP Sitting (Post-Dialysis) 140/76 mmHg Concurrent Access: falseAV Fistula Forearm (Left) Arterial Sitting Heart Rate Pre-Dialysis 88 BPM Sitting H eart Rate Post-Dialysis 82 BPM Temperature Pre-Dialysis 97.3 degF Temperature Post -Dialysis 97.3 degF January 18, 2025 In-Center Hemodialysis Treatment 1473-32-04L02:14:28.000Z 9534-25-09M88:46:28.000Z BP Sitting (Pre-Dialysis) 137/78 mmHg BP Sitting (Post-Dialysis) 121/71 mmHg Concurrent Access: falseAV Fistula Forearm (Left) Arterial Sitting Heart Rate Pre-Dialysis 90 BPM Sitting H eart Rate Post-Dialysis 85 BPM Temperature Pre-Dialysis 97.4 degF Temperature Post -Dialysis 98 degF January 16, 2025 In-Center Hemodialysis Treatment 4387-62-44T97:17:55.000Z 7067-76-22C06:48:56.000Z BP Sitting (Pre-Dialysis) 176/85 mmHg BP Sitting (Post-Dialysis) 156/72 mmHg Concurrent Access: falseAV Fistula Forearm (Left) Arterial Sitting Heart Rate Pre-Dialysis 90 BPM Sitting H eart Rate Post-Dialysis 81 BPM Temperature Pre-Dialysis 97.7 degF Temperature Post -Dialysis 98 degF January 13, 2025 In-Center Hemodialysis Treatment 0857-18-22P62:21:07.000Z 3893-82-49N78:53:07.000Z BP Sitting (Pre-Dialysis) 148/76 mmHg BP Sitting (Post-Dialysis) 152/79 mmHg Concurrent Access: falseAV Fistula Forearm (Left) Arterial Sitting Heart Rate Pre-Dialysis 85 BPM Sitting H eart Rate Post-Dialysis 81 BPM Temperature Pre-Dialysis 97.9 degF Temperature Post -Dialysis 97.7 degF January 11, 2025 In-Center Hemodialysis Treatment 6339-27-95O27:11:52.000Z 5065-01-62Y11:46:53.000Z BP Sitting (Pre-Dialysis) 165/93 mmHg BP Sitting (Post-Dialysis) 147/81 mmHg Concurrent Access: falseAV Fistula Forearm (Left) Arterial Sitting Heart Rate Pre-Dialysis 85 BPM Sitting H eart Rate Post-Dialysis 83 BPM Temperature Pre-Dialysis 97.5 degF Temperature Post -Dialysis 97.5 degF January 09, 2025 In-Center Hemodialysis Treatment 4413-23-47R67:16:19.000Z 3449-30-47I14:49:20.000Z BP Sitting (Pre-Dialysis) 165/87 mmHg BP Sitting (Post-Dialysis) 162/90 mmHg Concurrent Access: falseAV Fistula Forearm (Left) Arterial Sitting Heart Rate Pre-Dialysis 89 BPM Sitting H eart Rate Post-Dialysis 85 BPM Temperature Pre-Dialysis 96.8 degF January 06, 2025 In-Center Hemodialysis Treatment 3803-99-28J87:11:30.000Z 9291-09-56R08:15:30.000Z BP Sitting (Pre-Dialysis) 165/93 mmHg BP Sitting (Post-Dialysis) 164/88 mmHg Concurrent Access: falseAV Fistula Forearm (Left) Arterial Sitting Heart Rate Pre-Dialysis 90 BPM Sitting H eart Rate Post-Dialysis 80 BPM Temperature Pre-Dialysis 97.7 degF Temperature Post -Dialysis 98 degF January 04, 2025 In-Center Hemodialysis Treatment 7327-72-42W19:25:00.000Z 4447-04-81Z54:01:56.000Z BP Sitting (Pre-Dialysis) 164/80 mmHg BP Sitting (Post-Dialysis) 153/88 mmHg Concurrent Access: falseAV Fistula Forearm (Left) Arterial Sitting Heart Rate Pre-Dialysis 84 BPM Sitting H eart Rate Post-Dialysis 80 BPM Temperature Pre-Dialysis 97.7 degF Temperature Post -Dialysis 98 degF January 02, 2025 In-Center Hemodialysis Treatment 7430-01-53R50:45:40.000Z 5610-26-75Z07:18:40.000Z BP Sitting (Pre-Dialysis) 187/107 mmHg BP Sitting (Post-Dialysis) 178/98 mmHg Concurrent Access: falseAV Fistula Forearm (Left) Arterial Sitting Heart Rate Pre-Dialysis 90 BPM Sitting H eart Rate Post-Dialysis 84 BPM Temperature Pre-Dialysis 97.6 degF Temperature Post -Dialysis 98 degF December 30, 2024 In-Center Hemodialysis Treatment 4713-35-93H61:28:41.000Z 9227-20-24T08:59:41.000Z BP Sitting (Pre-Dialysis) 191/98 mmHg BP Sitting (Post-Dialysis) 161/94 mmHg Concurrent Access: falseAV Fistula Forearm (Left) Arterial Sitting Heart Rate Pre-Dialysis 95 BPM Sitting H eart Rate Post-Dialysis 86 BPM Temperature Pre-Dialysis 97.3 degF Temperature Post -Dialysis 98 degF December 28, 2024 In-Center Hemodialysis Treatment 2113-82-88A60:31:00.000Z 9322-59-08P48:04:54.000Z BP Sitting (Pre-Dialysis) 156/87 mmHg BP Sitting (Post-Dialysis) 176/97 mmHg Concurrent Access: falseAV Fistula Forearm (Left) Arterial Sitting Heart Rate Pre-Dialysis 93 BPM Sitting H eart Rate Post-Dialysis 85 BPM Temperature Pre-Dialysis 98.6 degF Temperature Post -Dialysis 98 degF December 23, 2024 In-Center Hemodialysis Treatment 7917-80-30U65:22:00.000Z 0838-90-73G35:02:00.000Z BP Sitting (Pre-Dialysis) 159/80 mmHg BP Sitting (Post-Dialysis) 140/72 mmHg Concurrent Access: falseAV Fistula Forearm (Left) Arterial Sitting Heart Rate Pre-Dialysis 96 BPM Sitting H eart Rate Post-Dialysis 84 BPM Temperature Pre-Dialysis 97.6 degF Temperature Post -Dialysis 97.2 degF December 21, 2024 In-Center Hemodialysis Treatment 0033-58-50L52:20:00.000Z 5383-14-88W02:50:00.000Z BP Sitting (Pre-Dialysis) 148/72 mmHg BP Sitting (Post-Dialysis) 163/83 mmHg Concurrent Access: falseAV Fistula Forearm (Left) Arterial Sitting Heart Rate Pre-Dialysis 97 BPM Sitting H eart Rate Post-Dialysis 85 BPM Temperature Pre-Dialysis 98.7 degF December 19, 2024 In-Center Hemodialysis Treatment 2305-64-75N34:32:00.000Z 1410-57-75V52:00:00.000Z BP Sitting (Pre-Dialysis) 157/82 mmHg BP Sitting (Post-Dialysis) 159/73 mmHg Concurrent Access: falseAV Fistula Forearm (Left) Arterial Sitting Heart Rate Pre-Dialysis 88 BPM Sitting H eart Rate Post-Dialysis 76 BPM Temperature Pre-Dialysis 97.4 degF Temperature Post -Dialysis 97.8 degF December 16, 2024 In-Center Hemodialysis Treatment 1913-97-52N81:37:56.000Z 1445-98-46Q44:53:56.000Z BP Sitting (Pre-Dialysis) 176/90 mmHg BP Sitting (Post-Dialysis) 170/95 mmHg Concurrent Access: falseAV Fistula Forearm (Left) Arterial Sitting Heart Rate Pre-Dialysis 92 BPM Sitting H eart Rate Post-Dialysis 82 BPM Temperature Pre-Dialysis 98.8 degF Temperature Post -Dialysis 98.5 degF December 14, 2024 In-Center Hemodialysis Treatment 7571-76-53G56:36:00.000Z 6529-31-63Y41:08:00.000Z BP Sitting (Pre-Dialysis) 151/79 mmHg BP Sitting (Post-Dialysis) 152/82 mmHg Concurrent Access: falseAV Fistula Forearm (Left) Arterial Sitting Heart Rate Pre-Dialysis 87 BPM Sitting H eart Rate Post-Dialysis 87 BPM Temperature Pre-Dialysis 98.1 degF Temperature Post -Dialysis 97.6 degF 2024 In-Center Hemodialysis Treatment 0128-26-92Q27:46:19.000Z 7358-64-75M96:07:19.000Z BP Sitting (Pre-Dialysis) 191/90 mmHg BP Sitting (Post-Dialysis) 182/94 mmHg Concurrent Access: falseAV Fistula Forearm (Left) Arterial Sitting Heart Rate Pre-Dialysis 86 BPM Sitting H eart Rate Post-Dialysis 80 BPM Temperature Pre-Dialysis 97.8 degF Temperature Post -Dialysis 98.2 degF December 09, 2024 In-Center Hemodialysis Treatment 6307-79-68R59:30:15.000Z 9141-85-33X50:35:16.000Z BP Sitting (Pre-Dialysis) 178/93 mmHg BP Sitting (Post-Dialysis) 172/86 mmHg Concurrent Access: falseAV Fistula Forearm (Left) Arterial Sitting Heart Rate Pre-Dialysis 89 BPM Sitting H eart Rate Post-Dialysis 83 BPM Temperature Pre-Dialysis 98.2 degF Temperature Post -Dialysis 98.2 degF December 07, 2024 In-Center Hemodialysis Treatment 3460-96-67S49:27:44.000Z 0985-41-80T83:07:44.000Z BP Sitting (Pre-Dialysis) 172/89 mmHg BP Sitting (Post-Dialysis) 181/92 mmHg Concurrent Access: falseAV Fistula Forearm (Left) Arterial Sitting Heart Rate Pre-Dialysis 85 BPM Sitting H eart Rate Post-Dialysis 77 BPM Temperature Pre-Dialysis 98.3 degF Temperature Post -Dialysis 98.2 degF December 05, 2024 In-Center Hemodialysis Treatment 3920-28-04Q89:44:11.000Z 5033-52-88T40:09:11.000Z BP Sitting (Pre-Dialysis) 154/78 mmHg BP Sitting (Post-Dialysis) 147/83 mmHg Concurrent Access: falseAV Fistula Forearm (Left) Arterial Sitting Heart Rate Pre-Dialysis 87 BPM Sitting H eart Rate Post-Dialysis 79 BPM Temperature Pre-Dialysis 97.9 degF Temperature Post -Dialysis 97.2 degF December 03, 2024 Sequential Treatment 6648-15-49T78:44:46.000Z 5994-48-43E52:45:46.000Z BP Sitting (Pre-Dialysis) 171/87 mmHg BP Sitting (Post-Dialysis) 123/60 mmHg Concurrent Access: falseAV Fistula Forearm (Left) Arterial Sitting Heart Rate Pre-Dialysis 93 BPM Sitting H eart Rate Post-Dialysis 78 BPM Temperature Pre-Dialysis 97.9 degF Temperature Post -Dialysis 97.7 degF December 02, 2024 In-Center Hemodialysis Treatment 7428-82-24H79:11:22.000Z 5499-98-27D99:42:23.000Z BP Sitting (Pre-Dialysis) 180/88 mmHg BP Sitting (Post-Dialysis) 167/90 mmHg Concurrent Access: falseAV Fistula Forearm (Left) Arterial Sitting Heart Rate Pre-Dialysis 86 BPM Sitting H eart Rate Post-Dialysis 81 BPM Temperature Pre-Dialysis 97.3 degF Temperature Post -Dialysis 97.8 degF November 30, 2024 In-Center Hemodialysis Treatment 0788-24-29X91:52:50.000Z 9724-23-06W64:26:50.000Z BP Sitting (Pre-Dialysis) 198/92 mmHg BP Sitting (Post-Dialysis) 195/98 mmHg Concurrent Access: falseAV Fistula Forearm (Left) Arterial Sitting Heart Rate Pre-Dialysis 89 BPM Sitting H eart Rate Post-Dialysis 89 BPM Temperature Pre-Dialysis 97.7 degF Temperature Post -Dialysis 97.7 degF November 28, 2024 In-Center Hemodialysis Treatment 7373-83-71J31:31:00.000Z 9576-16-46X76:13:17.000Z BP Sitting (Pre-Dialysis) 174/92 mmHg BP Sitting (Post-Dialysis) 182/101 mmHg Concurrent Access: falseAV Fistula Forearm (Left) Arterial Sitting Heart Rate Pre-Dialysis 96 BPM Sitting H eart Rate Post-Dialysis 87 BPM Temperature Pre-Dialysis 97.2 degF Temperature Post -Dialysis 98.7 degF November 26, 2024 Sequential Treatment 1186-48-43I79:59:45.000Z 8775-09-61J08:00:46.000Z BP Sitting (Pre-Dialysis) 206/106 mmHg BP Sitting (Post-Dialysis) 192/102 mmHg Concurrent Access: falseAV Fistula Forearm (Left) Arterial Sitting Heart Rate Pre-Dialysis 102 BPM Sitting H eart Rate Post-Dialysis 81 BPM Temperature Pre-Dialysis 97.7 degF Temperature Post -Dialysis 97.7 degF November 25, 2024 In-Center Hemodialysis Treatment 1581-28-54I34:35:28.000Z 0658-10-89B71:20:28.000Z BP Sitting (Pre-Dialysis) 176/93 mmHg BP Sitting (Post-Dialysis) 164/94 mmHg Concurrent Access: falseAV Fistula Forearm (Left) Arterial Sitting Heart Rate Pre-Dialysis 90 BPM Sitting H eart Rate Post-Dialysis 87 BPM Temperature Pre-Dialysis 97.3 degF Temperature Post -Dialysis 97.4 degF November 23, 2024 In-Center Hemodialysis Treatment 7620-48-18Y12:41:54.000Z 2187-70-53P56:03:55.000Z BP Sitting (Pre-Dialysis) 144/77 mmHg BP Sitting (Post-Dialysis) 146/76 mmHg Concurrent Access: falseAV Fistula Forearm (Left) Arterial Sitting Heart Rate Pre-Dialysis 87 BPM Sitting H eart Rate Post-Dialysis 83 BPM Temperature Pre-Dialysis 98.2 degF Temperature Post -Dialysis 97.8 degF November 21, 2024 In-Center Hemodialysis Treatment 1140-34-52O46:28:21.000Z 1784-14-48H37:00:22.000Z BP Sitting (Pre-Dialysis) 203/105 mmHg BP Sitting (Post-Dialysis) 169/97 mmHg Concurrent Access: falseAV Fistula Forearm (Left) Arterial Sitting Heart Rate Pre-Dialysis 95 BPM Sitting H eart Rate Post-Dialysis 85 BPM Temperature Pre-Dialysis 97.8 degF Temperature Post -Dialysis 97.8 degF November 16, 2024 In-Center Hemodialysis Treatment 6743-40-60X72:32:10.000Z 8997-12-88B72:05:10.000Z BP Sitting (Pre-Dialysis) 174/96 mmHg BP Sitting (Post-Dialysis) 166/100 mmHg Concurrent Access: falseAV Fistula Forearm (Left) Arterial Sitting Heart Rate Pre-Dialysis 85 BPM Sitting H eart Rate Post-Dialysis 85 BPM Temperature Pre-Dialysis 97.7 degF Temperature Post -Dialysis 97.7 degF November 14, 2024 In-Center Hemodialysis Treatment 6045-61-95Z01:42:38.000Z 1921-66-42X78:01:38.000Z BP Sitting (Pre-Dialysis) 172/87 mmHg BP Sitting (Post-Dialysis) 180/102 mmHg Concurrent Access: falseAV Fistula Forearm (Left) Arterial Sitting Heart Rate Pre-Dialysis 90 BPM Sitting H eart Rate Post-Dialysis 82 BPM Temperature Pre-Dialysis 97.7 degF Temperature Post -Dialysis 97.2 degF November 11, 2024 In-Center Hemodialysis Treatment 3159-86-13D29:23:05.000Z 8618-94-24C26:54:05.000Z BP Sitting (Pre-Dialysis) 180/84 mmHg BP Sitting (Post-Dialysis) 159/90 mmHg Concurrent Access: falseAV Fistula Forearm (Left) Arterial Sitting Heart Rate Pre-Dialysis 88 BPM Sitting H eart Rate Post-Dialysis 88 BPM Temperature Pre-Dialysis 97.2 degF Temperature Post -Dialysis 97.2 degF November 09, 2024 In-Center Hemodialysis Treatment 9304-37-42O16:24:32.000Z 5109-32-37H82:11:32.000Z BP Sitting (Pre-Dialysis) 174/93 mmHg BP Sitting (Post-Dialysis) 186/100 mmHg Concurrent Access: falseAV Fistula Forearm (Left) Arterial Sitting Heart Rate Pre-Dialysis 88 BPM Sitting H eart Rate Post-Dialysis 90 BPM Temperature Pre-Dialysis 98 degF Temperature Post -Dialysis 98 degF November 04, 2024 In-Center Hemodialysis Treatment 9547-72-59A95:35:04.000Z 5954-52-33N38:19:04.000Z BP Sitting (Pre-Dialysis) 219/107 mmHg BP Sitting (Post-Dialysis) 179/101 mmHg Concurrent Access: falseAV Fistula Forearm (Left) Arterial Sitting Heart Rate Pre-Dialysis 88 BPM Sitting H eart Rate Post-Dialysis 84 BPM Temperature Pre-Dialysis 98 degF Temperature Post -Dialysis 98 degF October 31, 2024 In-Center Hemodialysis Treatment 3419-00-44B55:22:59.000Z 0427-16-40I00:02:00.000Z BP Sitting (Pre-Dialysis) 184/99 mmHg BP Sitting (Post-Dialysis) 162/92 mmHg Concurrent Access: falseAV Fistula Forearm (Left) Arterial Sitting Heart Rate Pre-Dialysis 85 BPM Sitting H eart Rate Post-Dialysis 81 BPM Temperature Pre-Dialysis 97.4 degF Temperature Post -Dialysis 98 degF October 28, 2024 In-Center Hemodialysis Treatment 6709-23-69G66:27:02.000Z 3335-78-28R09:59:32.000Z BP Sitting (Pre-Dialysis) 158/111 mmHg BP Sitting (Post-Dialysis) 144/118 mmHg Concurrent Access: falseAV Fistula Forearm (Left) Arterial Sitting Heart Rate Pre-Dialysis 93 BPM Sitting H eart Rate Post-Dialysis 86 BPM Temperature Pre-Dialysis 98.6 degF Temperature Post -Dialysis 98 degF October 24, 2024 In-Center Hemodialysis Treatment 3927-83-07G47:30:05.000Z 7540-28-14P34:02:05.000Z BP Sitting (Pre-Dialysis) 179/95 mmHg BP Sitting (Post-Dialysis) 177/108 mmHg Concurrent Access: falseAV Fistula Forearm (Left) Arterial Sitting Heart Rate Pre-Dialysis 83 BPM Sitting H eart Rate Post-Dialysis 84 BPM Temperature Pre-Dialysis 96.6 degF Temperature Post -Dialysis 97 degF October 21, 2024 In-Center Hemodialysis Treatment 8284-75-12U33:38:58.000Z 7491-78-52S89:12:58.000Z BP Sitting (Pre-Dialysis) 194/102 mmHg BP Sitting (Post-Dialysis) 153/91 mmHg Concurrent Access: falseAV Fistula Forearm (Left) Arterial Sitting Heart Rate Pre-Dialysis 80 BPM Sitting H eart Rate Post-Dialysis 82 BPM Temperature Pre-Dialysis 97 degF Temperature Post -Dialysis 97.4 degF October 19, 2024 In-Center Hemodialysis Treatment 9923-38-90X23:39:24.000Z 7890-26-61Y48:07:24.000Z BP Sitting (Pre-Dialysis) 208/106 mmHg BP Sitting (Post-Dialysis) 182/99 mmHg Concurrent Access: falseAV Fistula Forearm (Left) Arterial Sitting Heart Rate Pre-Dialysis 79 BPM Sitting H eart Rate Post-Dialysis 83 BPM Temperature Pre-Dialysis 98 degF Temperature Post -Dialysis 97.5 degF October 17, 2024 In-Center Hemodialysis Treatment 0896-15-25X03:32:17.000Z 0369-41-38M83:25:18.000Z BP Sitting (Pre-Dialysis) 187/96 mmHg BP Sitting (Post-Dialysis) 160/88 mmHg Concurrent Access: falseAV Fistula Forearm (Left) Arterial Sitting Heart Rate Pre-Dialysis 82 BPM Sitting H eart Rate Post-Dialysis 86 BPM Temperature Pre-Dialysis 96.1 degF Temperature Post -Dialysis 97.4 degF October 14, 2024 In-Center Hemodialysis Treatment 0510-68-27Z45:37:31.000Z 3106-15-02R57:01:31.000Z BP Sitting (Pre-Dialysis) 176/95 mmHg BP Sitting (Post-Dialysis) 163/95 mmHg Concurrent Access: falseAV Fistula Forearm (Left) Arterial Sitting Heart Rate Pre-Dialysis 77 BPM Sitting H eart Rate Post-Dialysis 75 BPM Temperature Pre-Dialysis 97.2 degF Temperature Post -Dialysis 97.2 degF October 12, 2024 In-Center Hemodialysis Treatment 7884-06-11C59:10:58.000Z 2355-53-25N51:40:58.000Z BP Sitting (Pre-Dialysis) 200/112 mmHg BP Sitting (Post-Dialysis) 177/90 mmHg Concurrent Access: falseAV Fistula Forearm (Left) Arterial Sitting Heart Rate Pre-Dialysis 76 BPM Sitting H eart Rate Post-Dialysis 77 BPM Temperature Pre-Dialysis 97.5 degF Temperature Post -Dialysis 97.2 degF October 07, 2024 In-Center Hemodialysis Treatment 6195-15-69O46:49:55.000Z 2648-05-83X95:26:56.000Z BP Sitting (Pre-Dialysis) 156/82 mmHg BP Sitting (Post-Dialysis) 144/88 mmHg Concurrent Access: falseAV Fistula Forearm (Left) Arterial Sitting Heart Rate Pre-Dialysis 81 BPM Sitting H eart Rate Post-Dialysis 78 BPM Temperature Pre-Dialysis 97.7 degF Temperature Post -Dialysis 97.6 degF October 05, 2024 In-Center Hemodialysis Treatment 0374-16-32Q32:35:23.000Z 3903-41-23W96:09:23.000Z BP Sitting (Pre-Dialysis) 173/82 mmHg BP Sitting (Post-Dialysis) 159/83 mmHg Concurrent Access: falseAV Fistula Forearm (Left) Arterial Sitting Heart Rate Pre-Dialysis 75 BPM Sitting H eart Rate Post-Dialysis 71 BPM Temperature Pre-Dialysis 96.2 degF Temperature Post -Dialysis 97.7 degF October 03, 2024 In-Center Hemodialysis Treatment 0302-01-42Q81:20:13.000Z 1289-27-74F39:54:14.000Z BP Sitting (Pre-Dialysis) 194/109 mmHg BP Sitting (Post-Dialysis) 164/91 mmHg Concurrent Access: falseAV Fistula Forearm (Left) Arterial Sitting Heart Rate Pre-Dialysis 88 BPM Sitting H eart Rate Post-Dialysis 79 BPM Temperature Pre-Dialysis 96.7 degF Temperature Post -Dialysis 96.7 degF September 30, 2024 In-Center Hemodialysis Treatment 4930-79-20S76:31:24.000Z 7908-36-35K77:02:24.000Z BP Sitting (Pre-Dialysis) 181/101 mmHg BP Sitting (Post-Dialysis) 163/85 mmHg Concurrent Access: falseAV Fistula Forearm (Left) Arterial Sitting Heart Rate Pre-Dialysis 92 BPM Sitting H eart Rate Post-Dialysis 83 BPM Temperature Pre-Dialysis 96.4 degF Temperature Post -Dialysis 97.2 degF September 28, 2024 In-Center Hemodialysis Treatment 0157-74-26O77:56:37.000Z 9106-48-75Q69:09:37.000Z BP Sitting (Pre-Dialysis) 181/105 mmHg BP Sitting (Post-Dialysis) 151/90 mmHg Concurrent Access: falseAV Fistula Forearm (Left) Arterial Sitting Heart Rate Pre-Dialysis 90 BPM Sitting H eart Rate Post-Dialysis 81 BPM Temperature Pre-Dialysis 97.3 degF Temperature Post -Dialysis 97.3 degF September 26, 2024 In-Center Hemodialysis Treatment 2370-51-56X52:42:45.000Z 0320-52-50E60:19:36.000Z BP Sitting (Pre-Dialysis) 179/99 mmHg BP Sitting (Post-Dialysis) 173/96 mmHg Concurrent Access: falseAV Fistula Forearm (Left) Arterial Sitting Heart Rate Pre-Dialysis 87 BPM Sitting H eart Rate Post-Dialysis 84 BPM Temperature Pre-Dialysis 97.7 degF Temperature Post -Dialysis 97.4 degF September 23, 2024 In-Center Hemodialysis Treatment 2701-16-36O53:11:11.000Z 9604-52-60U16:46:12.000Z BP Sitting (Pre-Dialysis) 162/83 mmHg BP Sitting (Post-Dialysis) 135/82 mmHg Concurrent Access: falseAV Fistula Forearm (Left) Arterial Sitting Heart Rate Pre-Dialysis 86 BPM Sitting H eart Rate Post-Dialysis 80 BPM Temperature Pre-Dialysis 97.3 degF Temperature Post -Dialysis 97.2 degF September 21, 2024 In-Center Hemodialysis Treatment 2717-65-48R77:26:26.000Z 6815-39-45I58:57:26.000Z BP Sitting (Pre-Dialysis) 182/99 mmHg BP Sitting (Post-Dialysis) 143/83 mmHg Concurrent Access: falseAV Fistula Forearm (Left) Arterial Sitting Heart Rate Pre-Dialysis 83 BPM Sitting H eart Rate Post-Dialysis 85 BPM Temperature Pre-Dialysis 97.8 degF Temperature Post -Dialysis 97.2 degF September 19, 2024 In-Center Hemodialysis Treatment 9945-20-87V82:24:09.000Z 2702-51-08B23:56:10.000Z BP Sitting (Pre-Dialysis) 192/105 mmHg BP Sitting (Post-Dialysis) 185/105 mmHg Concurrent Access: falseAV Fistula Forearm (Left) Arterial Sitting Heart Rate Pre-Dialysis 87 BPM Sitting H eart Rate Post-Dialysis 80 BPM Temperature Pre-Dialysis 98 degF Temperature Post -Dialysis 97 degF September 16, 2024 In-Center Hemodialysis Treatment 6921-67-48Q37:33:19.000Z 2157-06-83D92:01:20.000Z BP Sitting (Pre-Dialysis) 153/85 mmHg BP Sitting (Post-Dialysis) 141/89 mmHg Concurrent Access: falseAV Fistula Forearm (Left) Arterial Sitting Heart Rate Pre-Dialysis 78 BPM Sitting H eart Rate Post-Dialysis 80 BPM Temperature Pre-Dialysis 97.3 degF Temperature Post -Dialysis 97.6 degF September 14, 2024 In-Center Hemodialysis Treatment 0606-51-42C75:09:46.000Z 0043-94-05N56:40:46.000Z BP Sitting (Pre-Dialysis) 150/86 mmHg BP Sitting (Post-Dialysis) 152/79 mmHg Concurrent Access: falseAV Fistula Forearm (Left) Arterial Sitting Heart Rate Pre-Dialysis 85 BPM Sitting H eart Rate Post-Dialysis 78 BPM Temperature Pre-Dialysis 97.8 degF Temperature Post -Dialysis 98 degF September 12, 2024 In-Center Hemodialysis Treatment 1541-05-27F71:23:12.000Z 5921-32-10L10:56:12.000Z BP Sitting (Pre-Dialysis) 168/93 mmHg BP Sitting (Post-Dialysis) 148/81 mmHg Concurrent Access: falseAV Fistula Forearm (Left) Arterial Sitting Heart Rate Pre-Dialysis 84 BPM Sitting H eart Rate Post-Dialysis 82 BPM Temperature Pre-Dialysis 98 degF Temperature Post -Dialysis 98 degF September 09, 2024 In-Center Hemodialysis Treatment 2240-89-06W37:22:00.000Z 7374-50-41F80:56:45.000Z BP Sitting (Pre-Dialysis) 163/90 mmHg BP Sitting (Post-Dialysis) 153/74 mmHg Concurrent Access: falseAV Fistula Forearm (Left) Arterial Sitting Heart Rate Pre-Dialysis 83 BPM Sitting H eart Rate Post-Dialysis 76 BPM Temperature Pre-Dialysis 97.5 degF Temperature Post -Dialysis 97.6 degF September 07, 2024 In-Center Hemodialysis Treatment 5803-09-80I75:41:22.000Z 2250-00-13Y67:13:23.000Z BP Sitting (Pre-Dialysis) 167/88 mmHg BP Sitting (Post-Dialysis) 148/82 mmHg Concurrent Access: falseAV Fistula Forearm (Left) Arterial Sitting Heart Rate Pre-Dialysis 73 BPM Sitting H eart Rate Post-Dialysis 72 BPM Temperature Pre-Dialysis 98 degF Temperature Post -Dialysis 98 degF September 05, 2024 In-Center Hemodialysis Treatment 9254-46-64V58:07:47.000Z 5823-90-83Q29:39:48.000Z BP Sitting (Pre-Dialysis) 157/86 mmHg BP Sitting (Post-Dialysis) 127/77 mmHg Concurrent Access: falseAV Fistula Forearm (Left) Arterial Sitting Heart Rate Pre-Dialysis 80 BPM Sitting H eart Rate Post-Dialysis 75 BPM Temperature Pre-Dialysis 97.7 degF Temperature Post -Dialysis 98 degF September 02, 2024 In-Center Hemodialysis Treatment 6027-60-50V92:28:00.000Z 0736-11-13V63:00:07.000Z BP Sitting (Pre-Dialysis) 141/74 mmHg BP Sitting (Post-Dialysis) 126/69 mmHg Concurrent Access: falseAV Fistula Forearm (Left) Arterial Sitting Heart Rate Pre-Dialysis 81 BPM Sitting H eart Rate Post-Dialysis 75 BPM Temperature Pre-Dialysis 98.2 degF Temperature Post -Dialysis 97.9 degF August 31, 2024 In-Center Hemodialysis Treatment 4338-24-73J05:10:32.000Z 4511-04-14P90:42:33.000Z BP Sitting (Pre-Dialysis) 161/85 mmHg BP Sitting (Post-Dialysis) 138/79 mmHg Concurrent Access: falseAV Fistula Forearm (Left) Arterial Sitting Heart Rate Pre-Dialysis 84 BPM Sitting H eart Rate Post-Dialysis 76 BPM Temperature Pre-Dialysis 97.2 degF Temperature Post -Dialysis 97.5 degF August 29, 2024 In-Center Hemodialysis Treatment 7851-23-40R06:25:59.000Z 5208-36-41X18:56:59.000Z BP Sitting (Pre-Dialysis) 157/84 mmHg BP Sitting (Post-Dialysis) 144/57 mmHg Concurrent Access: falseAV Fistula Forearm (Left) Arterial Sitting Heart Rate Pre-Dialysis 81 BPM Sitting H eart Rate Post-Dialysis 71 BPM Temperature Pre-Dialysis 98.3 degF Temperature Post -Dialysis 97.7 degF August 26, 2024 In-Center Hemodialysis Treatment 0085-05-11Y96:25:36.000Z 5990-13-93O95:57:36.000Z BP Sitting (Pre-Dialysis) 189/96 mmHg BP Sitting (Post-Dialysis) 173/93 mmHg Concurrent Access: falseAV Fistula Forearm (Left) Arterial Sitting Heart Rate Pre-Dialysis 86 BPM Sitting H eart Rate Post-Dialysis 79 BPM Temperature Pre-Dialysis 97.9 degF Temperature Post -Dialysis 97.7 degF August 24, 2024 In-Center Hemodialysis Treatment 0704-66-62Z26:22:00.000Z 5554-22-41O18:56:00.000Z BP Sitting (Pre-Dialysis) 197/99 mmHg BP Sitting (Post-Dialysis) 161/92 mmHg Concurrent Access: falseAV Fistula Forearm (Left) Arterial Sitting Heart Rate Pre-Dialysis 89 BPM Sitting H eart Rate Post-Dialysis 84 BPM Temperature Pre-Dialysis 97.9 degF Temperature Post -Dialysis 98 degF August 22, 2024 In-Center Hemodialysis Treatment 0853-46-35S56:13:42.000Z 7202-94-57W35:13:42.000Z BP Sitting (Pre-Dialysis) 155/99 mmHg BP Sitting (Post-Dialysis) 183/104 mmHg Concurrent Access: falseAV Fistula Forearm (Left) Arterial Sitting Heart Rate Pre-Dialysis 89 BPM Sitting H eart Rate Post-Dialysis 78 BPM Temperature Pre-Dialysis 98.2 degF Temperature Post -Dialysis 97.9 degF August 19, 2024 In-Center Hemodialysis Treatment 1261-12-70E59:33:00.000Z 8210-69-39I22:01:06.000Z BP Sitting (Pre-Dialysis) 186/86 mmHg BP Sitting (Post-Dialysis) 188/104 mmHg Concurrent Access: falseAV Fistula Forearm (Left) Arterial Sitting Heart Rate Pre-Dialysis 79 BPM Sitting H eart Rate Post-Dialysis 76 BPM Temperature Pre-Dialysis 97.2 degF Temperature Post -Dialysis 98.2 degF August 17, 2024 In-Center Hemodialysis Treatment 2643-17-50S18:24:38.000Z 7782-96-48R54:55:38.000Z BP Sitting (Pre-Dialysis) 181/102 mmHg BP Sitting (Post-Dialysis) 157/90 mmHg Concurrent Access: falseAV Fistula Forearm (Left) Arterial Sitting Heart Rate Pre-Dialysis 87 BPM Sitting H eart Rate Post-Dialysis 76 BPM Temperature Pre-Dialysis 97.2 degF Temperature Post -Dialysis 97.6 degF August 15, 2024 In-Center Hemodialysis Treatment 5372-54-55C14:31:37.000Z 9560-42-75L72:00:38.000Z BP Sitting (Pre-Dialysis) 202/103 mmHg BP Sitting (Post-Dialysis) 164/91 mmHg Concurrent Access: falseAV Fistula Forearm (Left) Arterial Sitting Heart Rate Pre-Dialysis 81 BPM Sitting H eart Rate Post-Dialysis 78 BPM Temperature Pre-Dialysis 97.2 degF Temperature Post -Dialysis 97.6 degF August 12, 2024 In-Center Hemodialysis Treatment 3099-81-87K60:34:00.000Z 1810-47-68N92:06:51.000Z BP Sitting (Pre-Dialysis) 171/90 mmHg BP Sitting (Post-Dialysis) 162/88 mmHg Concurrent Access: falseAV Fistula Forearm (Left) Arterial Sitting Heart Rate Pre-Dialysis 80 BPM Sitting H eart Rate Post-Dialysis 79 BPM Temperature Pre-Dialysis 97.1 degF Temperature Post -Dialysis 97.7 degF August 10, 2024 In-Center Hemodialysis Treatment 9910-07-27M49:38:00.000Z 2592-40-49J66:09:13.000Z BP Sitting (Pre-Dialysis) 161/83 mmHg BP Sitting (Post-Dialysis) 160/79 mmHg Concurrent Access: falseAV Fistula Forearm (Left) Arterial Sitting Heart Rate Pre-Dialysis 73 BPM Sitting H eart Rate Post-Dialysis 70 BPM Temperature Pre-Dialysis 98.4 degF Temperature Post -Dialysis 97.9 degF August 08, 2024 In-Center Hemodialysis Treatment 8320-15-87N24:09:32.000Z 1559-86-37W09:00:33.000Z BP Sitting (Pre-Dialysis) 180/95 mmHg BP Sitting (Post-Dialysis) 152/86 mmHg Concurrent Access: falseAV Fistula Forearm (Left) Arterial Sitting Heart Rate Pre-Dialysis 82 BPM Sitting H eart Rate Post-Dialysis 75 BPM Temperature Pre-Dialysis 97.4 degF Temperature Post -Dialysis 97.6 degF August 05, 2024 In-Center Hemodialysis Treatment 2026-76-20G09:23:56.000Z 8059-77-38B85:54:56.000Z BP Sitting (Pre-Dialysis) 160/80 mmHg BP Sitting (Post-Dialysis) 167/85 mmHg Concurrent Access: falseAV Fistula Forearm (Left) Arterial Sitting Heart Rate Pre-Dialysis 78 BPM Sitting H eart Rate Post-Dialysis 71 BPM Temperature Pre-Dialysis 97.8 degF Temperature Post -Dialysis 97.4 degF August 03, 2024 In-Center Hemodialysis Treatment 5726-93-55S42:38:49.000Z 0914-88-45W09:13:49.000Z BP Sitting (Pre-Dialysis) 173/90 mmHg BP Sitting (Post-Dialysis) 169/93 mmHg Concurrent Access: falseAV Fistula Forearm (Left) Arterial Sitting Heart Rate Pre-Dialysis 87 BPM Sitting H eart Rate Post-Dialysis 82 BPM Temperature Pre-Dialysis 96.5 degF Temperature Post -Dialysis 98 degF August 01, 2024 In-Center Hemodialysis Treatment 5779-86-14R53:12:00.000Z 3629-91-61D10:45:42.000Z BP Sitting (Pre-Dialysis) 188/95 mmHg BP Sitting (Post-Dialysis) 100/61 mmHg Concurrent Access: falseAV Fistula Forearm (Left) Arterial Sitting Heart Rate Pre-Dialysis 87 BPM Sitting H eart Rate Post-Dialysis 86 BPM Temperature Pre-Dialysis 97.6 degF Temperature Post -Dialysis 97.2 degF July 29, 2024 In-Center Hemodialysis Treatment 1435-98-42Q08:40:25.000Z 9656-76-39J33:12:26.000Z BP Sitting (Pre-Dialysis) 154/82 mmHg BP Sitting (Post-Dialysis) 135/71 mmHg Concurrent Access: falseAV Fistula Forearm (Left) Arterial Sitting Heart Rate Pre-Dialysis 80 BPM Sitting H eart Rate Post-Dialysis 76 BPM Temperature Pre-Dialysis 98 degF Temperature Post -Dialysis 97.3 degF July 27, 2024 In-Center Hemodialysis Treatment 2370-76-84H85:20:00.000Z 9267-39-22V57:52:28.000Z BP Sitting (Pre-Dialysis) 211/111 mmHg BP Sitting (Post-Dialysis) 155/86 mmHg Concurrent Access: falseAV Fistula Forearm (Left) Arterial Sitting Heart Rate Pre-Dialysis 84 BPM Sitting H eart Rate Post-Dialysis 82 BPM Temperature Pre-Dialysis 97.2 degF July 25, 2024 In-Center Hemodialysis Treatment 4024-65-70P50:26:40.000Z 0236-82-13H30:01:41.000Z BP Sitting (Pre-Dialysis) 187/93 mmHg BP Sitting (Post-Dialysis) 173/95 mmHg Concurrent Access: falseAV Fistula Forearm (Left) Arterial Sitting Heart Rate Pre-Dialysis 87 BPM Sitting H eart Rate Post-Dialysis 83 BPM Temperature Pre-Dialysis 98.1 degF Temperature Post -Dialysis 97.7 degF July 22, 2024 In-Center Hemodialysis Treatment 3524-77-78S99:37:00.000Z 0205-02-80V10:13:12.000Z BP Sitting (Pre-Dialysis) 187/97 mmHg BP Sitting (Post-Dialysis) 161/90 mmHg Concurrent Access: falseAV Fistula Forearm (Left) Arterial Sitting Heart Rate Pre-Dialysis 84 BPM Sitting H eart Rate Post-Dialysis 82 BPM Temperature Pre-Dialysis 98 degF Temperature Post -Dialysis 97.4 degF July 20, 2024 In-Center Hemodialysis Treatment 9338-59-18Q64:08:06.000Z 3992-44-55H01:39:07.000Z BP Sitting (Pre-Dialysis) 184/91 mmHg BP Sitting (Post-Dialysis) 167/90 mmHg Concurrent Access: falseAV Fistula Forearm (Left) Arterial Sitting Heart Rate Pre-Dialysis 81 BPM Sitting H eart Rate Post-Dialysis 78 BPM Temperature Pre-Dialysis 98.2 degF Temperature Post -Dialysis 97.8 degF July 18, 2024 In-Center Hemodialysis Treatment 9383-57-39B77:17:33.000Z 8600-37-54D62:57:33.000Z BP Sitting (Pre-Dialysis) 169/95 mmHg BP Sitting (Post-Dialysis) 139/72 mmHg Concurrent Access: falseAV Fistula Forearm (Left) Arterial Sitting Heart Rate Pre-Dialysis 84 BPM Sitting H eart Rate Post-Dialysis 86 BPM Temperature Pre-Dialysis 97.7 degF Temperature Post -Dialysis 97.1 degF July 15, 2024 In-Center Hemodialysis Treatment 0296-10-36Q85:30:28.000Z 4596-07-90O18:05:29.000Z BP Sitting (Pre-Dialysis) 162/86 mmHg BP Sitting (Post-Dialysis) 140/82 mmHg Concurrent Access: falseAV Fistula Forearm (Left) Arterial Sitting Heart Rate Pre-Dialysis 83 BPM Sitting H eart Rate Post-Dialysis 81 BPM Temperature Pre-Dialysis 97.7 degF Temperature Post -Dialysis 97.5 degF July 13, 2024 In-Center Hemodialysis Treatment 7201-23-35B30:18:55.000Z 1533-50-26Z98:50:56.000Z BP Sitting (Pre-Dialysis) 185/95 mmHg BP Sitting (Post-Dialysis) 150/82 mmHg Concurrent Access: falseAV Fistula Forearm (Left) Arterial Sitting Heart Rate Pre-Dialysis 78 BPM Sitting H eart Rate Post-Dialysis 79 BPM Temperature Pre-Dialysis 97.8 degF Temperature Post -Dialysis 97.2 degF July 11, 2024 In-Center Hemodialysis Treatment 0395-23-15U07:16:00.000Z 1993-63-97G80:51:23.000Z BP Sitting (Pre-Dialysis) 175/91 mmHg BP Sitting (Post-Dialysis) 173/88 mmHg Concurrent Access: falseAV Fistula Forearm (Left) Arterial Sitting Heart Rate Pre-Dialysis 75 BPM Sitting H eart Rate Post-Dialysis 75 BPM Temperature Pre-Dialysis 97.8 degF Temperature Post -Dialysis 97.5 degF July 08, 2024 In-Center Hemodialysis Treatment 5365-18-77D73:23:55.000Z 1307-50-01U32:54:55.000Z BP Sitting (Pre-Dialysis) 151/82 mmHg BP Sitting (Post-Dialysis) 161/89 mmHg Concurrent Access: falseAV Fistula Forearm (Left) Arterial Sitting Heart Rate Pre-Dialysis 76 BPM Sitting H eart Rate Post-Dialysis 73 BPM Temperature Pre-Dialysis 97.2 degF Temperature Post -Dialysis 97.4 degF July 06, 2024 In-Center Hemodialysis Treatment 6875-57-47R97:29:21.000Z 9720-73-23H04:01:22.000Z BP Sitting (Pre-Dialysis) 190/106 mmHg BP Sitting (Post-Dialysis) 174/91 mmHg Concurrent Access: falseAV Fistula Forearm (Left) Arterial Sitting Heart Rate Pre-Dialysis 78 BPM Sitting H eart Rate Post-Dialysis 73 BPM Temperature Pre-Dialysis 97.3 degF Temperature Post -Dialysis 97.2 degF July 01, 2024 In-Center Hemodialysis Treatment 3720-77-83Z37:25:59.000Z 0141-12-78X61:56:59.000Z BP Sitting (Pre-Dialysis) 201/99 mmHg BP Sitting (Post-Dialysis) 159/87 mmHg Concurrent Access: falseAV Fistula Forearm (Left) Arterial Sitting Heart Rate Pre-Dialysis 83 BPM Sitting H eart Rate Post-Dialysis 78 BPM Temperature Pre-Dialysis 97.8 degF Temperature Post -Dialysis 97.2 degF June 29, 2024 In-Center Hemodialysis Treatment 8228-36-05Q23:33:37.000Z 6578-25-41L56:04:37.000Z BP Sitting (Pre-Dialysis) 175/93 mmHg BP Sitting (Post-Dialysis) 180/111 mmHg Concurrent Access: falseAV Fistula Forearm (Left) Arterial Sitting Heart Rate Pre-Dialysis 80 BPM Sitting H eart Rate Post-Dialysis 75 BPM Temperature Pre-Dialysis 97.2 degF Temperature Post -Dialysis 97 degF June 27, 2024 In-Center Hemodialysis Treatment 0396-81-30I05:29:03.000Z 9979-05-09I20:01:03.000Z BP Sitting (Pre-Dialysis) 158/90 mmHg BP Sitting (Post-Dialysis) 175/91 mmHg Concurrent Access: falseAV Fistula Forearm (Left) Arterial Sitting Heart Rate Pre-Dialysis 73 BPM Sitting H eart Rate Post-Dialysis 68 BPM Temperature Pre-Dialysis 97.6 degF Temperature Post -Dialysis 97.2 degF June 24, 2024 In-Center Hemodialysis Treatment 0648-36-10B42:39:30.000Z 4612-74-62D87:11:30.000Z BP Sitting (Pre-Dialysis) 160/86 mmHg BP Sitting (Post-Dialysis) 135/79 mmHg Concurrent Access: falseAV Fistula Forearm (Left) Arterial Sitting Heart Rate Pre-Dialysis 81 BPM Sitting H eart Rate Post-Dialysis 78 BPM Temperature Pre-Dialysis 97.8 degF Temperature Post -Dialysis 97.6 degF June 22, 2024 In-Center Hemodialysis Treatment 0178-06-68G56:38:56.000Z 2077-19-55R26:13:56.000Z BP Sitting (Pre-Dialysis) 167/82 mmHg BP Sitting (Post-Dialysis) 166/79 mmHg Concurrent Access: falseAV Fistula Forearm (Left) Arterial Sitting Heart Rate Pre-Dialysis 69 BPM Sitting H eart Rate Post-Dialysis 69 BPM Temperature Pre-Dialysis 98 degF Temperature Post -Dialysis 97.8 degF June 21, 2024 In-Center Hemodialysis Treatment 9460-37-54W52:53:00.000Z 9287-66-08S60:26:18.000Z BP Sitting (Pre-Dialysis) 163/90 mmHg BP Sitting (Post-Dialysis) 193/106 mmHg Concurrent Access: falseAV Fistula Forearm (Left) Arterial Sitting Heart Rate Pre-Dialysis 80 BPM Sitting H eart Rate Post-Dialysis 70 BPM Temperature Pre-Dialysis 97.3 degF Temperature Post -Dialysis 97.9 degF June 16, 2024 In-Center Hemodialysis Treatment 5942-72-92R41:28:22.000Z 4136-53-26E98:01:22.000Z BP Sitting (Pre-Dialysis) 197/100 mmHg BP Sitting (Post-Dialysis) 170/97 mmHg Concurrent Access: falseAV Fistula Forearm (Left) Arterial Sitting Heart Rate Pre-Dialysis 74 BPM Sitting H eart Rate Post-Dialysis 70 BPM Temperature Pre-Dialysis 98 degF Temperature Post -Dialysis 98 degF June 13, 2024 In-Center Hemodialysis Treatment 7006-67-07K44:06:06.000Z 0293-31-45T70:36:06.000Z BP Sitting (Pre-Dialysis) 193/96 mmHg BP Sitting (Post-Dialysis) 167/98 mmHg Concurrent Access: falseAV Fistula Forearm (Left) Arterial Sitting Heart Rate Pre-Dialysis 73 BPM Sitting H eart Rate Post-Dialysis 74 BPM Temperature Pre-Dialysis 99.1 degF Temperature Post -Dialysis 98.2 degF June 09, 2024 In-Center Hemodialysis Treatment 1922-24-24U21:43:00.000Z 0040-36-60T83:16:39.000Z BP Sitting (Pre-Dialysis) 217/111 mmHg BP Sitting (Post-Dialysis) 210/103 mmHg Concurrent Access: falseAV Fistula Forearm (Left) Arterial Sitting Heart Rate Pre-Dialysis 69 BPM Sitting H eart Rate Post-Dialysis 66 BPM Temperature Pre-Dialysis 98.2 degF Temperature Post -Dialysis 97.3 degF June 06, 2024 In-Center Hemodialysis Treatment 4993-92-89Y66:00:12.000Z 6874-52-35T47:33:13.000Z BP Sitting (Pre-Dialysis) 187/96 mmHg BP Sitting (Post-Dialysis) 177/97 mmHg Concurrent Access: falseAV Fistula Forearm (Left) Arterial Sitting Heart Rate Pre-Dialysis 72 BPM Sitting H eart Rate Post-Dialysis 65 BPM Temperature Pre-Dialysis 98.1 degF Temperature Post -Dialysis 97.2 degF June 02, 2024 In-Center Hemodialysis Treatment 2250-08-29E40:26:44.000Z 0634-22-32O96:58:45.000Z BP Sitting (Pre-Dialysis) 165/84 mmHg BP Sitting (Post-Dialysis) 203/106 mmHg Concurrent Access: falseAV Fistula Forearm (Left) Arterial Sitting Heart Rate Pre-Dialysis 66 BPM Sitting H eart Rate Post-Dialysis 71 BPM Temperature Pre-Dialysis 96 degF Temperature Post -Dialysis 97.2 degF May 31, 2024 In-Center Hemodialysis Treatment 4041-80-89S42:49:11.000Z 5371-96-69J66:20:12.000Z BP Sitting (Pre-Dialysis) 174/86 mmHg BP Sitting (Post-Dialysis) 158/84 mmHg Concurrent Access: falseAV Fistula Forearm (Left) Arterial Sitting Heart Rate Pre-Dialysis 71 BPM Sitting H eart Rate Post-Dialysis 71 BPM Temperature Pre-Dialysis 98.1 degF Temperature Post -Dialysis 97.8 degF May 26, 2024 In-Center Hemodialysis Treatment 1456-72-79R01:36:00.000Z 0805-01-57M28:09:35.000Z BP Sitting (Pre-Dialysis) 191/104 mmHg BP Sitting (Post-Dialysis) 176/93 mmHg Concurrent Access: falseAV Fistula Forearm (Left) Arterial Sitting Heart Rate Pre-Dialysis 79 BPM Sitting H eart Rate Post-Dialysis 69 BPM Temperature Pre-Dialysis 98.3 degF Temperature Post -Dialysis 97.3 degF May 24, 2024 In-Center Hemodialysis Treatment 9412-26-49F34:59:14.000Z 1019-46-39Z16:30:14.000Z BP Sitting (Pre-Dialysis) 156/84 mmHg BP Sitting (Post-Dialysis) 148/80 mmHg Concurrent Access: falseAV Fistula Forearm (Left) Arterial Sitting Heart Rate Pre-Dialysis 74 BPM Sitting H eart Rate Post-Dialysis 71 BPM Temperature Pre-Dialysis 97.5 degF Temperature Post -Dialysis 97.3 degF May 19, 2024 In-Center Hemodialysis Treatment 5783-05-55R05:17:09.000Z 5120-40-28R74:49:09.000Z BP Sitting (Pre-Dialysis) 180/96 mmHg BP Sitting (Post-Dialysis) 178/101 mmHg Concurrent Access: falseAV Fistula Forearm (Left) Arterial Sitting Heart Rate Pre-Dialysis 77 BPM Sitting H eart Rate Post-Dialysis 73 BPM Temperature Pre-Dialysis 97.1 degF Temperature Post -Dialysis 96.8 degF May 17, 2024 In-Center Hemodialysis Treatment 8028-59-94M43:55:02.000Z 9971-31-47C68:31:02.000Z BP Sitting (Pre-Dialysis) 186/89 mmHg BP Sitting (Post-Dialysis) 197/113 mmHg Concurrent Access: falseAV Fistula Forearm (Left) Arterial Sitting Heart Rate Pre-Dialysis 74 BPM Sitting H eart Rate Post-Dialysis 66 BPM Temperature Pre-Dialysis 98.3 degF Temperature Post -Dialysis 97.2 degF May 11, 2024 In-Center Hemodialysis Treatment 0130-68-41Q13:48:43.000Z 1681-19-97H49:21:43.000Z BP Sitting (Pre-Dialysis) 174/89 mmHg BP Sitting (Post-Dialysis) 178/106 mmHg Concurrent Access: falseAV Fistula Forearm (Left) Arterial Sitting Heart Rate Pre-Dialysis 78 BPM Sitting H eart Rate Post-Dialysis 78 BPM Temperature Pre-Dialysis 98.2 degF Temperature Post -Dialysis 98 degF May 09, 2024 In-Center Hemodialysis Treatment 7468-55-16K42:25:37.000Z 7793-09-19Q69:57:38.000Z BP Sitting (Pre-Dialysis) 197/105 mmHg BP Sitting (Post-Dialysis) 149/80 mmHg Concurrent Access: falseAV Fistula Forearm (Left) Arterial Sitting Heart Rate Pre-Dialysis 76 BPM Sitting H eart Rate Post-Dialysis 75 BPM Temperature Pre-Dialysis 97.7 degF Temperature Post -Dialysis 97.2 degF May 05, 2024 In-Center Hemodialysis Treatment 0977-95-32R77:35:00.000Z 2057-46-54S12:06:05.000Z BP Sitting (Pre-Dialysis) 162/82 mmHg BP Sitting (Post-Dialysis) 155/86 mmHg Concurrent Access: falseAV Fistula Forearm (Left) Arterial Sitting Heart Rate Pre-Dialysis 81 BPM Sitting H eart Rate Post-Dialysis 76 BPM Temperature Pre-Dialysis 98.2 degF Temperature Post -Dialysis 97.5 degF May 03, 2024 In-Center Hemodialysis Treatment 2674-28-46L53:39:04.000Z 5449-98-77C79:09:05.000Z BP Sitting (Pre-Dialysis) 178/97 mmHg BP Sitting (Post-Dialysis) 146/82 mmHg Concurrent Access: falseAV Fistula Forearm (Left) Arterial Sitting Heart Rate Pre-Dialysis 85 BPM Sitting H eart Rate Post-Dialysis 76 BPM Temperature Pre-Dialysis 98.2 degF Temperature Post -Dialysis 97.3 degF April 30, 2024 In-Center Hemodialysis Treatment 2422-03-60O71:37:40.000Z 8564-60-75K77:09:39.000Z BP Sitting (Pre-Dialysis) 163/90 mmHg BP Sitting (Post-Dialysis) 144/72 mmHg Concurrent Access: falseAV Fistula Forearm (Left) Arterial Sitting Heart Rate Pre-Dialysis 86 BPM Sitting H eart Rate Post-Dialysis 78 BPM Temperature Pre-Dialysis 98.7 degF Temperature Post -Dialysis 97.2 degF April 28, 2024 In-Center Hemodialysis Treatment 3698-78-12Z36:55:40.000Z 2834-21-93N80:27:40.000Z BP Sitting (Pre-Dialysis) 160/87 mmHg BP Sitting (Post-Dialysis) 151/88 mmHg Concurrent Access: falseAV Fistula Forearm (Left) Arterial Sitting Heart Rate Pre-Dialysis 85 BPM Sitting H eart Rate Post-Dialysis 76 BPM Temperature Pre-Dialysis 98.1 degF Temperature Post -Dialysis 97.5 degF April 26, 2024 In-Center Hemodialysis Treatment 8699-16-46T37:39:00.000Z 5054-33-12G25:12:39.000Z BP Sitting (Pre-Dialysis) 168/84 mmHg BP Sitting (Post-Dialysis) 146/60 mmHg Concurrent Access: falseAV Fistula Forearm (Left) Arterial Sitting Heart Rate Pre-Dialysis 80 BPM Sitting H eart Rate Post-Dialysis 78 BPM Temperature Pre-Dialysis 97.5 degF Temperature Post -Dialysis 97.5 degF April 23, 2024 In-Center Hemodialysis Treatment 3014-67-56P81:43:09.000Z 8956-39-28O55:17:09.000Z BP Sitting (Pre-Dialysis) 170/86 mmHg BP Sitting (Post-Dialysis) 137/74 mmHg Concurrent Access: falseAV Fistula Forearm (Left) Arterial Sitting Heart Rate Pre-Dialysis 84 BPM Sitting H eart Rate Post-Dialysis 85 BPM Temperature Pre-Dialysis 98.1 degF Temperature Post -Dialysis 97.6 degF April 21, 2024 In-Center Hemodialysis Treatment 4340-64-69Y07:53:40.000Z 9142-25-58B35:25:40.000Z BP Sitting (Pre-Dialysis) 180/101 mmHg BP Sitting (Post-Dialysis) 128/79 mmHg Concurrent Access: falseAV Fistula Forearm (Left) Arterial Sitting Heart Rate Pre-Dialysis 91 BPM Sitting H eart Rate Post-Dialysis 80 BPM Temperature Pre-Dialysis 97.3 degF Temperature Post -Dialysis 97.5 degF April 19, 2024 In-Center Hemodialysis Treatment 6172-15-59J26:58:00.000Z 8286-64-56Q51:31:04.000Z BP Sitting (Pre-Dialysis) 156/92 mmHg BP Sitting (Post-Dialysis) 152/89 mmHg Concurrent Access: falseAV Fistula Forearm (Left) Arterial Sitting Heart Rate Pre-Dialysis 96 BPM Sitting H eart Rate Post-Dialysis 85 BPM Temperature Pre-Dialysis 98.1 degF Temperature Post -Dialysis 98.2 degF April 16, 2024 In-Center Hemodialysis Treatment 1160-83-21V03:49:00.000Z 5300-81-73I74:22:10.000Z BP Sitting (Pre-Dialysis) 155/84 mmHg BP Sitting (Post-Dialysis) 154/81 mmHg Concurrent Access: falseAV Fistula Forearm (Left) Arterial Sitting Heart Rate Pre-Dialysis 92 BPM Sitting H eart Rate Post-Dialysis 84 BPM Temperature Pre-Dialysis 98 degF Temperature Post -Dialysis 97.9 degF April 14, 2024 In-Center Hemodialysis Treatment 3996-18-02B01:12:14.000Z 6404-44-92A77:48:15.000Z BP Sitting (Pre-Dialysis) 162/86 mmHg BP Sitting (Post-Dialysis) 167/99 mmHg Concurrent Access: falseAV Fistula Forearm (Left) Arterial Sitting Heart Rate Pre-Dialysis 80 BPM Sitting H eart Rate Post-Dialysis 79 BPM Temperature Pre-Dialysis 98 degF Temperature Post -Dialysis 97.2 degF April 12, 2024 In-Center Hemodialysis Treatment 9236-61-77Q46:43:00.000Z 1647-41-13N14:16:24.000Z BP Sitting (Pre-Dialysis) 158/76 mmHg BP Sitting (Post-Dialysis) 136/53 mmHg Concurrent Access: falseAV Fistula Forearm (Left) Arterial Sitting Heart Rate Pre-Dialysis 81 BPM Sitting H eart Rate Post-Dialysis 84 BPM Temperature Pre-Dialysis 98.3 degF Temperature Post -Dialysis 97.3 degF April 09, 2024 In-Center Hemodialysis Treatment 3639-33-30P09:51:00.000Z 1866-10-61D70:22:27.000Z BP Sitting (Pre-Dialysis) 177/91 mmHg BP Sitting (Post-Dialysis) 134/81 mmHg Concurrent Access: falseAV Fistula Forearm (Left) Arterial Sitting Heart Rate Pre-Dialysis 91 BPM Sitting H eart Rate Post-Dialysis 83 BPM Temperature Pre-Dialysis 98.2 degF Temperature Post -Dialysis 97.6 degF April 07, 2024 In-Center Hemodialysis Treatment 1041-36-54Y62:11:24.000Z 5427-59-19M92:50:24.000Z BP Sitting (Pre-Dialysis) 152/82 mmHg BP Sitting (Post-Dialysis) 149/85 mmHg Concurrent Access: falseAV Fistula Forearm (Left) Arterial Sitting Heart Rate Pre-Dialysis 81 BPM Sitting H eart Rate Post-Dialysis 76 BPM Temperature Pre-Dialysis 97.5 degF Temperature Post -Dialysis 97.5 degF April 05, 2024 In-Center Hemodialysis Treatment 9670-64-71M00:36:00.000Z 5026-24-05T23:09:18.000Z BP Sitting (Pre-Dialysis) 182/90 mmHg BP Sitting (Post-Dialysis) 179/103 mmHg Concurrent Access: falseAV Fistula Forearm (Left) Arterial Sitting Heart Rate Pre-Dialysis 87 BPM Sitting H eart Rate Post-Dialysis 81 BPM Temperature Pre-Dialysis 98 degF Temperature Post -Dialysis 97.5 degF April 02, 2024 In-Center Hemodialysis Treatment 9152-44-13Y11:46:19.000Z 1967-89-73F12:18:19.000Z BP Sitting (Pre-Dialysis) 184/88 mmHg BP Sitting (Post-Dialysis) 145/80 mmHg Concurrent Access: falseAV Fistula Forearm (Left) Arterial Sitting Heart Rate Pre-Dialysis 86 BPM Sitting H eart Rate Post-Dialysis 83 BPM Temperature Pre-Dialysis 98.2 degF Temperature Post -Dialysis 97.2 degF March 26, 2024 In-Center Hemodialysis Treatment 4050-96-41P09:45:02.000Z 3108-33-61W57:18:01.000Z BP Sitting (Pre-Dialysis) 139/74 mmHg BP Sitting (Post-Dialysis) 117/68 mmHg Concurrent Access: falseAV Fistula Forearm (Left) Arterial Sitting Heart Rate Pre-Dialysis 84 BPM Sitting H eart Rate Post-Dialysis 82 BPM Temperature Pre-Dialysis 98 degF Temperature Post -Dialysis 97.3 degF March 24, 2024 In-Center Hemodialysis Treatment 5763-72-55M20:31:28.000Z 2974-21-02T53:02:28.000Z BP Sitting (Pre-Dialysis) 144/74 mmHg BP Sitting (Post-Dialysis) 138/74 mmHg Concurrent Access: falseAV Fistula Forearm (Left) Arterial Sitting Heart Rate Pre-Dialysis 82 BPM Sitting H eart Rate Post-Dialysis 52 BPM Temperature Pre-Dialysis 97.3 degF Temperature Post -Dialysis 97.7 degF March 22, 2024 In-Center Hemodialysis Treatment 2164-47-99T25:38:02.000Z 8870-20-77L51:13:01.000Z BP Sitting (Pre-Dialysis) 165/85 mmHg BP Sitting (Post-Dialysis) 133/80 mmHg Concurrent Access: falseAV Fistula Forearm (Left) Arterial Sitting Heart Rate Pre-Dialysis 78 BPM Sitting H eart Rate Post-Dialysis 80 BPM Temperature Pre-Dialysis 96.7 degF Temperature Post -Dialysis 97.8 degF March 19, 2024 In-Center Hemodialysis Treatment 5530-49-94D22:04:38.000Z 4753-54-30F29:36:38.000Z BP Sitting (Pre-Dialysis) 123/69 mmHg BP Sitting (Post-Dialysis) 143/84 mmHg Concurrent Access: falseAV Fistula Forearm (Left) Arterial Sitting Heart Rate Pre-Dialysis 75 BPM Sitting H eart Rate Post-Dialysis 75 BPM Temperature Pre-Dialysis 98.1 degF Temperature Post -Dialysis 98 degF March 17, 2024 In-Center Hemodialysis Treatment 6108-20-96K26:09:00.000Z 3822-67-06Y69:41:38.000Z BP Sitting (Pre-Dialysis) 162/82 mmHg BP Sitting (Post-Dialysis) 151/74 mmHg Concurrent Access: falseAV Fistula Forearm (Left) Arterial Sitting Heart Rate Pre-Dialysis 75 BPM Sitting H eart Rate Post-Dialysis 81 BPM Temperature Pre-Dialysis 98.2 degF Temperature Post -Dialysis 98 degF March 15, 2024 In-Center Hemodialysis Treatment 7109-51-07I82:15:00.000Z 5513-99-85T48:47:37.000Z BP Sitting (Pre-Dialysis) 177/90 mmHg BP Sitting (Post-Dialysis) 127/72 mmHg Concurrent Access: falseAV Fistula Forearm (Left) Arterial Sitting Heart Rate Pre-Dialysis 73 BPM Sitting H eart Rate Post-Dialysis 81 BPM Temperature Pre-Dialysis 98 degF Temperature Post -Dialysis 97.7 degF March 12, 2024 In-Center Hemodialysis Treatment 6907-84-08D78:53:00.000Z 2583-18-45W31:25:31.000Z BP Sitting (Pre-Dialysis) 147/81 mmHg BP Sitting (Post-Dialysis) 147/71 mmHg Concurrent Access: falseAV Fistula Forearm (Left) Arterial Sitting Heart Rate Pre-Dialysis 74 BPM Sitting H eart Rate Post-Dialysis 78 BPM Temperature Pre-Dialysis 97.7 degF Temperature Post -Dialysis 97.6 degF March 10, 2024 In-Center Hemodialysis Treatment 6996-04-36L33:00:31.000Z 4970-02-37W07:33:30.000Z BP Sitting (Pre-Dialysis) 174/90 mmHg BP Sitting (Post-Dialysis) 143/75 mmHg Concurrent Access: falseAV Fistula Forearm (Left) Arterial Sitting Heart Rate Pre-Dialysis 79 BPM Sitting H eart Rate Post-Dialysis 69 BPM Temperature Pre-Dialysis 97.4 degF Temperature Post -Dialysis 97.7 degF March 08, 2024 In-Center Hemodialysis Treatment 1910-11-55L97:48:31.000Z 9548-99-84G28:18:30.000Z BP Sitting (Pre-Dialysis) 182/92 mmHg BP Sitting (Post-Dialysis) 150/85 mmHg Concurrent Access: falseAV Fistula Forearm (Left) Arterial Sitting Heart Rate Pre-Dialysis 71 BPM Sitting H eart Rate Post-Dialysis 69 BPM Temperature Pre-Dialysis 98.3 degF Temperature Post -Dialysis 97.9 degF March 05, 2024 In-Center Hemodialysis Treatment 4013-95-10V91:05:40.000Z 6740-86-81H60:37:40.000Z BP Sitting (Pre-Dialysis) 159/81 mmHg BP Sitting (Post-Dialysis) 126/72 mmHg Concurrent Access: falseAV Fistula Forearm (Left) Arterial Sitting Heart Rate Pre-Dialysis 75 BPM Sitting H eart Rate Post-Dialysis 78 BPM Temperature Pre-Dialysis 98.4 degF Temperature Post -Dialysis 98 degF March 03, 2024 In-Center Hemodialysis Treatment 3036-48-32N21:43:18.000Z 9528-03-77I27:12:19.000Z BP Sitting (Pre-Dialysis) 182/92 mmHg BP Sitting (Post-Dialysis) 175/93 mmHg Concurrent Access: falseAV Fistula Forearm (Left) Arterial Sitting Heart Rate Pre-Dialysis 68 BPM Sitting H eart Rate Post-Dialysis 73 BPM Temperature Pre-Dialysis 98.6 degF Temperature Post -Dialysis 97.3 degF March 01, 2024 In-Center Hemodialysis Treatment 3016-77-29B18:16:18.000Z 5776-93-37J83:46:18.000Z BP Sitting (Pre-Dialysis) 174/88 mmHg BP Sitting (Post-Dialysis) 176/94 mmHg Concurrent Access: falseAV Fistula Forearm (Left) Arterial Sitting Heart Rate Pre-Dialysis 72 BPM Sitting H eart Rate Post-Dialysis 68 BPM Temperature Pre-Dialysis 98.3 degF Temperature Post -Dialysis 98 degF February 25, 2024 In-Center Hemodialysis Treatment 3775-61-18F43:02:00.000Z 7377-13-42G76:36:28.000Z BP Sitting (Pre-Dialysis) 144/78 mmHg BP Sitting (Post-Dialysis) 107/59 mmHg Concurrent Access: falseAV Fistula Forearm (Left) Arterial Sitting Heart Rate Pre-Dialysis 67 BPM Sitting H eart Rate Post-Dialysis 66 BPM Temperature Pre-Dialysis 97.4 degF Temperature Post -Dialysis 97.5 degF February 24, 2024 Sequential Treatment 3909-20-71U42:17:00.000Z 2840-99-47V72:19:35.000Z BP Sitting (Pre-Dialysis) 154/77 mmHg BP Sitting (Post-Dialysis) 116/58 mmHg Concurrent Access: falseAV Fistula Forearm (Left) Arterial Sitting Heart Rate Pre-Dialysis 67 BPM Sitting H eart Rate Post-Dialysis 63 BPM Temperature Pre-Dialysis 98.1 degF Temperature Post -Dialysis 97.2 degF February 23, 2024 In-Center Hemodialysis Treatment 4755-02-02T90:58:00.000Z 6921-84-98F53:29:28.000Z BP Sitting (Pre-Dialysis) 163/82 mmHg BP Sitting (Post-Dialysis) 126/72 mmHg Concurrent Access: falseAV Fistula Forearm (Left) Arterial Sitting Heart Rate Pre-Dialysis 69 BPM Sitting H eart Rate Post-Dialysis 66 BPM Temperature Pre-Dialysis 97.3 degF Temperature Post -Dialysis 98 degF February 20, 2024 In-Center Hemodialysis Treatment 9109-86-68R61:52:00.000Z 8298-35-65E71:26:16.000Z BP Sitting (Pre-Dialysis) 122/62 mmHg BP Sitting (Post-Dialysis) 116/64 mmHg Concurrent Access: falseAV Fistula Forearm (Left) Arterial Sitting Heart Rate Pre-Dialysis 66 BPM Sitting H eart Rate Post-Dialysis 66 BPM Temperature Pre-Dialysis 97 degF Temperature Post -Dialysis 97.7 degF February 18, 2024 In-Center Hemodialysis Treatment 9108-98-73C63:31:00.000Z 3647-16-75K57:07:10.000Z BP Sitting (Pre-Dialysis) 143/76 mmHg BP Sitting (Post-Dialysis) 164/81 mmHg Concurrent Access: falseAV Fistula Forearm (Left) Arterial Sitting Heart Rate Pre-Dialysis 70 BPM Sitting H eart Rate Post-Dialysis 62 BPM Temperature Pre-Dialysis 98.7 degF Temperature Post -Dialysis 98 degF February 16, 2024 In-Center Hemodialysis Treatment 6420-39-95W01:54:40.000Z 6811-97-52V30:35:40.000Z BP Sitting (Pre-Dialysis) 156/80 mmHg BP Sitting (Post-Dialysis) 159/82 mmHg Concurrent Access: falseAV Fistula Forearm (Left) Arterial Sitting Heart Rate Pre-Dialysis 69 BPM Sitting H eart Rate Post-Dialysis 64 BPM Temperature Pre-Dialysis 98.3 degF Temperature Post -Dialysis 98 degF February 13, 2024 In-Center Hemodialysis Treatment 8349-12-78H51:45:13.000Z 5639-84-50G70:18:13.000Z BP Sitting (Pre-Dialysis) 161/85 mmHg BP Sitting (Post-Dialysis) 107/59 mmHg Concurrent Access: falseAV Fistula Forearm (Left) Arterial Sitting Heart Rate Pre-Dialysis 65 BPM Sitting H eart Rate Post-Dialysis 64 BPM Temperature Pre-Dialysis 97.1 degF Temperature Post -Dialysis 97.8 degF February 11, 2024 In-Center Hemodialysis Treatment 4325-30-68Q93:39:00.000Z 7185-47-35A52:12:34.000Z BP Sitting (Pre-Dialysis) 160/81 mmHg BP Sitting (Post-Dialysis) 145/82 mmHg Concurrent Access: falseAV Fistula Forearm (Left) Arterial Sitting Heart Rate Pre-Dialysis 67 BPM Sitting H eart Rate Post-Dialysis 64 BPM Temperature Pre-Dialysis 98.4 degF Temperature Post -Dialysis 98.2 degF February 09, 2024 In-Center Hemodialysis Treatment 3917-22-22V52:59:29.000Z 4227-43-76U46:32:30.000Z BP Sitting (Pre-Dialysis) 192/93 mmHg BP Sitting (Post-Dialysis) 165/87 mmHg Concurrent Access: falseAV Fistula Forearm (Left) Arterial Sitting Heart Rate Pre-Dialysis 70 BPM Sitting H eart Rate Post-Dialysis 67 BPM Temperature Pre-Dialysis 97.3 degF Temperature Post -Dialysis 97.7 degF February 06, 2024 In-Center Hemodialysis Treatment 4012-97-39I58:02:00.000Z 6828-93-59H16:34:36.000Z BP Sitting (Pre-Dialysis) 146/83 mmHg BP Sitting (Post-Dialysis) 126/73 mmHg Concurrent Access: falseAV Fistula Forearm (Left) Arterial Sitting Heart Rate Pre-Dialysis 64 BPM Sitting H eart Rate Post-Dialysis 65 BPM Temperature Pre-Dialysis 98.2 degF Temperature Post -Dialysis 98.2 degF February 04, 2024 In-Center Hemodialysis Treatment 3429-59-01A37:00:00.000Z 9096-23-94L95:31:31.000Z BP Sitting (Pre-Dialysis) 155/85 mmHg BP Sitting (Post-Dialysis) 96/52 mmHg Concurrent Access: falseAV Fistula Forearm (Left) Arterial Sitting Heart Rate Pre-Dialysis 62 BPM Sitting H eart Rate Post-Dialysis 66 BPM Temperature Pre-Dialysis 97.2 degF Temperature Post -Dialysis 97.2 degF February 02, 2024 In-Center Hemodialysis Treatment 8854-00-95W74:14:31.000Z 7169-78-12A63:49:31.000Z BP Sitting (Pre-Dialysis) 176/88 mmHg BP Sitting (Post-Dialysis) 184/92 mmHg Concurrent Access: falseAV Fistula Forearm (Left) Arterial Sitting Heart Rate Pre-Dialysis 63 BPM Sitting H eart Rate Post-Dialysis 62 BPM Temperature Pre-Dialysis 98.3 degF Temperature Post -Dialysis 97 degF January 30, 2024 In-Center Hemodialysis Treatment 4466-86-35J54:54:00.000Z 0276-47-66I61:27:12.000Z BP Sitting (Pre-Dialysis) 120/66 mmHg BP Sitting (Post-Dialysis) 111/57 mmHg Concurrent Access: falseAV Fistula Forearm (Left) Arterial Sitting Heart Rate Pre-Dialysis 68 BPM Sitting H eart Rate Post-Dialysis 67 BPM Temperature Pre-Dialysis 98.2 degF Temperature Post -Dialysis 97.4 degF January 28, 2024 In-Center Hemodialysis Treatment 8384-22-81M73:41:00.000Z 8894-80-28Q50:15:03.000Z BP Sitting (Pre-Dialysis) 165/94 mmHg BP Sitting (Post-Dialysis) 129/72 mmHg Concurrent Access: falseAV Fistula Forearm (Left) Arterial Sitting Heart Rate Pre-Dialysis 72 BPM Sitting H eart Rate Post-Dialysis 69 BPM Temperature Pre-Dialysis 97.3 degF Temperature Post -Dialysis 97.2 degF January 26, 2024 In-Center Hemodialysis Treatment 8843-41-49K02:45:00.000Z 4525-76-28C84:17:12.000Z BP Sitting (Pre-Dialysis) 177/90 mmHg BP Sitting (Post-Dialysis) 161/81 mmHg Concurrent Access: falseAV Fistula Forearm (Left) Arterial Sitting Heart Rate Pre-Dialysis 66 BPM Sitting H eart Rate Post-Dialysis 66 BPM Temperature Pre-Dialysis 97.8 degF Temperature Post -Dialysis 97.7 degF January 23, 2024 In-Center Hemodialysis Treatment 2494-28-81R70:43:00.000Z 9764-20-22T65:14:30.000Z BP Sitting (Pre-Dialysis) 152/79 mmHg BP Sitting (Post-Dialysis) 154/82 mmHg Concurrent Access: falseAV Fistula Forearm (Left) Arterial Sitting Heart Rate Pre-Dialysis 63 BPM Sitting H eart Rate Post-Dialysis 65 BPM Temperature Pre-Dialysis 98.4 degF Temperature Post -Dialysis 97.5 degF January 21, 2024 In-Center Hemodialysis Treatment 6184-19-62K22:41:00.000Z 2310-20-94L72:13:30.000Z BP Sitting (Pre-Dialysis) 138/71 mmHg BP Sitting (Post-Dialysis) 138/81 mmHg Concurrent Access: falseAV Fistula Forearm (Left) Arterial Sitting Heart Rate Pre-Dialysis 72 BPM Sitting H eart Rate Post-Dialysis 65 BPM Temperature Pre-Dialysis 97.3 degF Temperature Post -Dialysis 97.5 degF January 19, 2024 In-Center Hemodialysis Treatment 5438-44-83S59:45:00.000Z 6109-66-96A07:21:55.000Z BP Sitting (Pre-Dialysis) 168/80 mmHg BP Sitting (Post-Dialysis) 146/75 mmHg Concurrent Access: falseAV Fistula Forearm (Left) Arterial Sitting Heart Rate Pre-Dialysis 66 BPM Sitting H eart Rate Post-Dialysis 64 BPM Temperature Pre-Dialysis 98 degF Temperature Post -Dialysis 97.2 degF January 16, 2024 In-Center Hemodialysis Treatment 9415-61-40E16:47:14.000Z 0349-44-61V88:20:15.000Z BP Sitting (Pre-Dialysis) 163/79 mmHg BP Sitting (Post-Dialysis) 127/73 mmHg Concurrent Access: falseAV Fistula Forearm (Left) Arterial Sitting Heart Rate Pre-Dialysis 73 BPM Sitting H eart Rate Post-Dialysis 66 BPM Temperature Pre-Dialysis 97.8 degF Temperature Post -Dialysis 98 degF January 14, 2024 In-Center Hemodialysis Treatment 0238-36-31U22:33:00.000Z 6565-52-88T27:10:13.000Z BP Sitting (Pre-Dialysis) 170/90 mmHg BP Sitting (Post-Dialysis) 131/66 mmHg Concurrent Access: falseAV Fistula Forearm (Left) Arterial Sitting Heart Rate Pre-Dialysis 67 BPM Sitting H eart Rate Post-Dialysis 65 BPM Temperature Pre-Dialysis 97.3 degF Temperature Post -Dialysis 97.3 degF January 12, 2024 In-Center Hemodialysis Treatment 9272-45-95X89:02:00.000Z 7018-45-32P16:32:14.000Z BP Sitting (Pre-Dialysis) 154/78 mmHg BP Sitting (Post-Dialysis) 156/78 mmHg Concurrent Access: falseAV Fistula Forearm (Left) Arterial Sitting Heart Rate Pre-Dialysis 66 BPM Sitting H eart Rate Post-Dialysis 61 BPM Temperature Pre-Dialysis 97.3 degF Temperature Post -Dialysis 96 degF January 09, 2024 In-Center Hemodialysis Treatment 3431-82-82E92:03:20.000Z 3613-22-38N89:40:21.000Z BP Sitting (Pre-Dialysis) 137/79 mmHg BP Sitting (Post-Dialysis) 168/88 mmHg Concurrent Access: falseAV Fistula Forearm (Left) Arterial Sitting Heart Rate Pre-Dialysis 68 BPM Sitting H eart Rate Post-Dialysis 63 BPM Temperature Pre-Dialysis 97.9 degF Temperature Post -Dialysis 97.5 degF January 07, 2024 In-Center Hemodialysis Treatment 5712-98-25P36:48:12.000Z 5932-38-92M98:15:13.000Z BP Sitting (Pre-Dialysis) 174/94 mmHg BP Sitting (Post-Dialysis) 163/87 mmHg Concurrent Access: falseAV Fistula Forearm (Left) Arterial Sitting Heart Rate Pre-Dialysis 67 BPM Sitting H eart Rate Post-Dialysis 61 BPM Temperature Pre-Dialysis 98.1 degF Temperature Post -Dialysis 97.2 degF January 05, 2024 In-Center Hemodialysis Treatment 0154-38-90Q38:21:21.000Z 7877-27-34Y34:00:21.000Z BP Sitting (Pre-Dialysis) 192/105 mmHg BP Sitting (Post-Dialysis) 158/84 mmHg Concurrent Access: falseAV Fistula Forearm (Left) Arterial Sitting Heart Rate Pre-Dialysis 68 BPM Sitting H eart Rate Post-Dialysis 65 BPM Temperature Pre-Dialysis 98.1 degF Temperature Post -Dialysis 97.5 degF December 31, 2023 In-Center Hemodialysis Treatment 2961-43-69J26:50:00.000Z 4506-98-56B86:20:12.000Z BP Sitting (Pre-Dialysis) 160/89 mmHg BP Sitting (Post-Dialysis) 149/73 mmHg Concurrent Access: falseAV Fistula Forearm (Left) Arterial Sitting Heart Rate Pre-Dialysis 66 BPM Sitting H eart Rate Post-Dialysis 61 BPM Temperature Pre-Dialysis 98.2 degF Temperature Post -Dialysis 97.5 degF December 29, 2023 In-Center Hemodialysis Treatment 9183-45-87F16:38:00.000Z 7596-57-74K94:10:13.000Z BP Sitting (Pre-Dialysis) 169/84 mmHg BP Sitting (Post-Dialysis) 152/88 mmHg Concurrent Access: falseAV Fistula Forearm (Left) Arterial Sitting Heart Rate Pre-Dialysis 65 BPM Sitting H eart Rate Post-Dialysis 75 BPM Temperature Pre-Dialysis 98 degF Temperature Post -Dialysis 97.8 degF December 26, 2023 In-Center Hemodialysis Treatment 0692-40-66C31:07:49.000Z 2676-38-04K66:34:49.000Z BP Sitting (Pre-Dialysis) 165/86 mmHg BP Sitting (Post-Dialysis) 130/73 mmHg Concurrent Access: falseAV Fistula Forearm (Left) Arterial Sitting Heart Rate Pre-Dialysis 64 BPM Sitting H eart Rate Post-Dialysis 63 BPM Temperature Pre-Dialysis 98.1 degF Temperature Post -Dialysis 97.7 degF December 24, 2023 In-Center Hemodialysis Treatment 8682-72-88T71:52:51.000Z 9378-86-11D42:22:31.000Z BP Sitting (Pre-Dialysis) 182/86 mmHg BP Sitting (Post-Dialysis) 154/83 mmHg Concurrent Access: falseAV Fistula Forearm (Left) Arterial Sitting Heart Rate Pre-Dialysis 66 BPM Sitting H eart Rate Post-Dialysis 64 BPM Temperature Pre-Dialysis 98.1 degF Temperature Post -Dialysis 97.5 degF December 22, 2023 In-Center Hemodialysis Treatment 2030-71-12T15:17:43.000Z 4930-78-45D14:06:43.000Z BP Sitting (Pre-Dialysis) 141/78 mmHg BP Sitting (Post-Dialysis) 177/92 mmHg Concurrent Access: falseAV Fistula Forearm (Left) Arterial Sitting Heart Rate Pre-Dialysis 62 BPM Sitting H eart Rate Post-Dialysis 65 BPM Temperature Pre-Dialysis 98.1 degF Temperature Post -Dialysis 97.5 degF December 19, 2023 In-Center Hemodialysis Treatment 5313-84-28B27:08:42.000Z 7288-12-17K09:55:42.000Z BP Sitting (Pre-Dialysis) 159/80 mmHg BP Sitting (Post-Dialysis) 159/90 mmHg Concurrent Access: falseAV Fistula Forearm (Left) Arterial Sitting Heart Rate Pre-Dialysis 66 BPM Sitting H eart Rate Post-Dialysis 63 BPM Temperature Pre-Dialysis 98.3 degF Temperature Post -Dialysis 98.2 degF December 17, 2023 In-Center Hemodialysis Treatment 7014-59-38V03:41:00.000Z 5467-18-41A56:31:32.000Z BP Sitting (Pre-Dialysis) 156/79 mmHg BP Sitting (Post-Dialysis) 148/83 mmHg Concurrent Access: falseAV Fistula Forearm (Left) Arterial Sitting Heart Rate Pre-Dialysis 73 BPM Sitting H eart Rate Post-Dialysis 67 BPM Temperature Pre-Dialysis 97.9 degF Temperature Post -Dialysis 97.5 degF December 16, 2023 In-Center Hemodialysis Treatment 4997-21-82C43:30:32.000Z 5198-67-11B21:17:31.000Z BP Sitting (Pre-Dialysis) 161/80 mmHg BP Sitting (Post-Dialysis) 125/77 mmHg Concurrent Access: falseAV Fistula Forearm (Left) Arterial Sitting Heart Rate Pre-Dialysis 67 BPM Sitting H eart Rate Post-Dialysis 69 BPM Temperature Pre-Dialysis 98.4 degF Temperature Post -Dialysis 97.7 degF 2023 In-Center Hemodialysis Treatment 9883-79-52Z85:02:00.000Z 0339-47-46K69:48:39.000Z BP Sitting (Pre-Dialysis) 120/63 mmHg BP Sitting (Post-Dialysis) 120/64 mmHg Concurrent Access: falseAV Fistula Forearm (Left) Arterial Sitting Heart Rate Pre-Dialysis 66 BPM Sitting H eart Rate Post-Dialysis 67 BPM Temperature Pre-Dialysis 98.4 degF Temperature Post -Dialysis 97.7 degF December 10, 2023 In-Center Hemodialysis Treatment 3899-77-25Y52:52:00.000Z 2653-17-15T27:39:11.000Z BP Sitting (Pre-Dialysis) 159/83 mmHg BP Sitting (Post-Dialysis) 148/76 mmHg Concurrent Access: falseAV Fistula Forearm (Left) Arterial Sitting Heart Rate Pre-Dialysis 66 BPM Sitting H eart Rate Post-Dialysis 61 BPM Temperature Pre-Dialysis 98.2 degF Temperature Post -Dialysis 98 degF December 08, 2023 In-Center Hemodialysis Treatment 8657-41-03S52:37:11.000Z 2552-29-15R35:23:12.000Z BP Sitting (Pre-Dialysis) 147/74 mmHg BP Sitting (Post-Dialysis) 157/88 mmHg Concurrent Access: falseAV Fistula Forearm (Left) Arterial Sitting Heart Rate Pre-Dialysis 69 BPM Sitting H eart Rate Post-Dialysis 66 BPM Temperature Pre-Dialysis 97.6 degF Temperature Post -Dialysis 98.5 degF December 05, 2023 In-Center Hemodialysis Treatment [id number]:25:00.000Z 1961-42-58N79:12:10.000Z BP Sitting (Pre-Dialysis) 141/76 mmHg BP Sitting (Post-Dialysis) 139/66 mmHg Concurrent Access: falseAV Fistula Forearm (Left) Arterial Sitting Heart Rate Pre-Dialysis 90 BPM Sitting H eart Rate Post-Dialysis 65 BPM Temperature Pre-Dialysis 97.7 degF Temperature Post -Dialysis 98.1 degF December 03, 2023 In-Center Hemodialysis Treatment 6150-74-04P10:06:00.000Z 4156-80-67N91:54:38.000Z BP Sitting (Pre-Dialysis) 129/69 mmHg BP Sitting (Post-Dialysis) 140/80 mmHg Concurrent Access: falseAV Fistula Forearm (Left) Arterial Sitting Heart Rate Pre-Dialysis 69 BPM Sitting H eart Rate Post-Dialysis 67 BPM Temperature Pre-Dialysis 97.8 degF Temperature Post -Dialysis 97.5 degF December 01, 2023 In-Center Hemodialysis Treatment 3362-42-42P05:59:42.000Z 1551-71-74X86:47:42.000Z BP Sitting (Pre-Dialysis) 173/85 mmHg BP Sitting (Post-Dialysis) 146/80 mmHg Concurrent Access: falseAV Fistula Forearm (Left) Arterial Sitting Heart Rate Pre-Dialysis 68 BPM Sitting H eart Rate Post-Dialysis 67 BPM Temperature Pre-Dialysis 97.7 degF Temperature Post -Dialysis 97.5 degF November 28, 2023 In-Center Hemodialysis Treatment 0991-30-16Z55:06:07.000Z 2806-83-30W08:52:07.000Z BP Sitting (Pre-Dialysis) 143/73 mmHg BP Sitting (Post-Dialysis) 160/81 mmHg Concurrent Access: falseAV Fistula Forearm (Left) Arterial Sitting Heart Rate Pre-Dialysis 73 BPM Sitting H eart Rate Post-Dialysis 66 BPM Temperature Pre-Dialysis 97.5 degF Temperature Post -Dialysis 97.7 degF November 26, 2023 In-Center Hemodialysis Treatment 2159-64-26T81:54:07.000Z 8316-19-44K85:41:07.000Z BP Sitting (Pre-Dialysis) 136/73 mmHg BP Sitting (Post-Dialysis) 146/78 mmHg Concurrent Access: falseAV Fistula Forearm (Left) Arterial Sitting Heart Rate Pre-Dialysis 70 BPM Sitting H eart Rate Post-Dialysis 66 BPM Temperature Pre-Dialysis 98.5 degF Temperature Post -Dialysis 97.5 degF November 24, 2023 In-Center Hemodialysis Treatment 6504-77-08F66:51:07.000Z 5542-15-66X37:41:07.000Z BP Sitting (Pre-Dialysis) 159/84 mmHg BP Sitting (Post-Dialysis) 148/82 mmHg Concurrent Access: falseAV Fistula Forearm (Left) Arterial Sitting Heart Rate Pre-Dialysis 73 BPM Sitting H eart Rate Post-Dialysis 71 BPM Temperature Pre-Dialysis 98.6 degF Temperature Post -Dialysis 97.4 degF November 21, 2023 In-Center Hemodialysis Treatment 4562-95-73Z09:00:00.000Z 3835-72-90T69:48:16.000Z BP Sitting (Pre-Dialysis) 138/75 mmHg BP Sitting (Post-Dialysis) 155/81 mmHg Concurrent Access: falseAV Fistula Forearm (Left) Arterial Sitting Heart Rate Pre-Dialysis 70 BPM Sitting H eart Rate Post-Dialysis 66 BPM Temperature Pre-Dialysis 97 degF Temperature Post -Dialysis 97.5 degF November 19, 2023 In-Center Hemodialysis Treatment 2994-38-31A86:55:00.000Z 9917-82-23C62:42:17.000Z BP Sitting (Pre-Dialysis) 164/84 mmHg BP Sitting (Post-Dialysis) 183/99 mmHg Concurrent Access: falseAV Fistula Forearm (Left) Arterial Sitting Heart Rate Pre-Dialysis 66 BPM Sitting H eart Rate Post-Dialysis 65 BPM Temperature Pre-Dialysis 97.5 degF Temperature Post -Dialysis 97.3 degF November 17, 2023 In-Center Hemodialysis Treatment 9237-25-33W20:01:16.000Z 8262-92-40L35:51:16.000Z BP Sitting (Pre-Dialysis) 156/85 mmHg BP Sitting (Post-Dialysis) 153/82 mmHg Concurrent Access: falseAV Fistula Forearm (Left) Arterial Sitting Heart Rate Pre-Dialysis 71 BPM Sitting H eart Rate Post-Dialysis 73 BPM Temperature Pre-Dialysis 98.2 degF Temperature Post -Dialysis 97.5 degF November 14, 2023 In-Center Hemodialysis Treatment 9561-86-69B91:35:00.000Z 5261-53-83K81:24:25.000Z BP Sitting (Pre-Dialysis) 134/71 mmHg BP Sitting (Post-Dialysis) 150/86 mmHg Concurrent Access: falseAV Fistula Forearm (Left) Arterial Sitting Heart Rate Pre-Dialysis 71 BPM Sitting H eart Rate Post-Dialysis 69 BPM Temperature Pre-Dialysis 97.3 degF Temperature Post -Dialysis 97.5 degF November 12, 2023 In-Center Hemodialysis Treatment 5654-86-22R74:01:49.000Z 6351-17-44U09:04:49.000Z BP Sitting (Pre-Dialysis) 135/68 mmHg BP Sitting (Post-Dialysis) 137/71 mmHg Concurrent Access: falseAV Fistula Forearm (Left) Arterial Sitting Heart Rate Pre-Dialysis 74 BPM Sitting H eart Rate Post-Dialysis 69 BPM Temperature Pre-Dialysis 98.6 degF Temperature Post -Dialysis 97.7 degF November 10, 2023 In-Center Hemodialysis Treatment 2839-65-99F60:50:49.000Z 5523-86-82X39:00:49.000Z BP Sitting (Pre-Dialysis) 95/53 mmHg BP Sitting (Post-Dialysis) 111/69 mmHg Concurrent Access: falseAV Fistula Forearm (Left) Arterial Sitting Heart Rate Pre-Dialysis 68 BPM Sitting H eart Rate Post-Dialysis 67 BPM Temperature Pre-Dialysis 97.2 degF Temperature Post -Dialysis 97.2 degF November 07, 2023 In-Center Hemodialysis Treatment 5531-73-16Y22:03:54.000Z 4311-67-90L10:49:54.000Z BP Sitting (Pre-Dialysis) 140/73 mmHg BP Sitting (Post-Dialysis) 125/66 mmHg Concurrent Access: falseAV Fistula Forearm (Left) Arterial Sitting Heart Rate Pre-Dialysis 78 BPM Sitting H eart Rate Post-Dialysis 71 BPM Temperature Pre-Dialysis 98.5 degF Temperature Post -Dialysis 97.5 degF November 05, 2023 In-Center Hemodialysis Treatment 0795-26-87N65:57:00.000Z 1576-24-41L74:45:54.000Z BP Sitting (Pre-Dialysis) 147/76 mmHg BP Sitting (Post-Dialysis) 144/87 mmHg Concurrent Access: falseAV Fistula Forearm (Left) Arterial Sitting Heart Rate Pre-Dialysis 70 BPM Sitting H eart Rate Post-Dialysis 68 BPM Temperature Pre-Dialysis 98.1 degF Temperature Post -Dialysis 97.3 degF November 03, 2023 In-Center Hemodialysis Treatment 1090-23-91X75:03:00.000Z 7892-16-07H02:49:52.000Z BP Sitting (Pre-Dialysis) 124/66 mmHg BP Sitting (Post-Dialysis) 167/90 mmHg Concurrent Access: falseAV Fistula Forearm (Left) Arterial Sitting Heart Rate Pre-Dialysis 72 BPM Sitting H eart Rate Post-Dialysis 70 BPM Temperature Pre-Dialysis 98.1 degF Temperature Post -Dialysis 97.9 degF October 31, 2023 In-Center Hemodialysis Treatment 1528-39-29V68:06:00.000Z 0008-76-51C56:55:18.000Z BP Sitting (Pre-Dialysis) 159/85 mmHg BP Sitting (Post-Dialysis) 105/58 mmHg Concurrent Access: falseAV Fistula Forearm (Left) Arterial Sitting Heart Rate Pre-Dialysis 81 BPM Sitting H eart Rate Post-Dialysis 68 BPM Temperature Pre-Dialysis 97.3 degF Temperature Post -Dialysis 97.5 degF October 29, 2023 In-Center Hemodialysis Treatment 2608-86-83K72:00:00.000Z 1578-09-91G82:46:18.000Z BP Sitting (Pre-Dialysis) 157/76 mmHg BP Sitting (Post-Dialysis) 154/90 mmHg Concurrent Access: falseAV Fistula Forearm (Left) Arterial Sitting Heart Rate Pre-Dialysis 72 BPM Sitting H eart Rate Post-Dialysis 72 BPM Temperature Pre-Dialysis 97.2 degF Temperature Post -Dialysis 97.9 degF October 27, 2023 In-Center Hemodialysis Treatment 8574-83-50M64:55:00.000Z 0879-20-33M52:51:17.000Z BP Sitting (Pre-Dialysis) 153/75 mmHg BP Sitting (Post-Dialysis) 149/79 mmHg Concurrent Access: falseAV Fistula Forearm (Left) Arterial Sitting Heart Rate Pre-Dialysis 73 BPM Sitting H eart Rate Post-Dialysis 68 BPM Temperature Pre-Dialysis 98 degF Temperature Post -Dialysis 97.5 degF October 24, 2023 In-Center Hemodialysis Treatment 0657-98-65I97:49:28.000Z 4014-81-73Z21:36:29.000Z BP Sitting (Pre-Dialysis) 120/66 mmHg BP Sitting (Post-Dialysis) 141/75 mmHg Concurrent Access: falseAV Fistula Forearm (Left) Arterial Sitting Heart Rate Pre-Dialysis 75 BPM Sitting H eart Rate Post-Dialysis 68 BPM Temperature Pre-Dialysis 98.3 degF Temperature Post -Dialysis 97.7 degF October 22, 2023 In-Center Hemodialysis Treatment 2893-89-19F86:55:00.000Z 8624-53-26O13:43:28.000Z BP Sitting (Pre-Dialysis) 142/71 mmHg BP Sitting (Post-Dialysis) 146/73 mmHg Concurrent Access: falseAV Fistula Forearm (Left) Arterial Sitting Heart Rate Pre-Dialysis 75 BPM Sitting H eart Rate Post-Dialysis 69 BPM Temperature Pre-Dialysis 97.2 degF Temperature Post -Dialysis 97.5 degF October 20, 2023 In-Center Hemodialysis Treatment 9787-97-09H67:04:00.000Z 6723-14-82O06:53:29.000Z BP Sitting (Pre-Dialysis) 158/79 mmHg BP Sitting (Post-Dialysis) 130/70 mmHg Concurrent Access: falseAV Fistula Forearm (Left) Arterial Sitting Heart Rate Pre-Dialysis 72 BPM Sitting H eart Rate Post-Dialysis 68 BPM Temperature Pre-Dialysis 97 degF Temperature Post -Dialysis 97.5 degF October 17, 2023 In-Center Hemodialysis Treatment 5927-63-04B28:13:41.000Z 2077-36-79G55:00:41.000Z BP Sitting (Pre-Dialysis) 145/79 mmHg BP Sitting (Post-Dialysis) 149/83 mmHg Concurrent Access: falseAV Fistula Forearm (Left) Arterial Sitting Heart Rate Pre-Dialysis 74 BPM Sitting H eart Rate Post-Dialysis 64 BPM Temperature Pre-Dialysis 97.3 degF Temperature Post -Dialysis 97.7 degF October 15, 2023 In-Center Hemodialysis Treatment 1714-73-52T54:58:40.000Z 6806-95-08Y18:02:41.000Z BP Sitting (Pre-Dialysis) 143/76 mmHg BP Sitting (Post-Dialysis) 139/73 mmHg Concurrent Access: falseAV Fistula Forearm (Left) Arterial Sitting Heart Rate Pre-Dialysis 72 BPM Sitting H eart Rate Post-Dialysis 65 BPM Temperature Pre-Dialysis 97.2 degF Temperature Post -Dialysis 97.3 degF October 13, 2023 In-Center Hemodialysis Treatment 0936-35-56R98:20:40.000Z 9274-56-49T06:14:41.000Z BP Sitting (Pre-Dialysis) 139/73 mmHg BP Sitting (Post-Dialysis) 147/78 mmHg Concurrent Access: falseAV Fistula Forearm (Left) Arterial Sitting Heart Rate Pre-Dialysis 64 BPM Sitting H eart Rate Post-Dialysis 66 BPM Temperature Pre-Dialysis 97.7 degF Temperature Post -Dialysis 97.5 degF October 10, 2023 In-Center Hemodialysis Treatment 1685-70-71R13:14:00.000Z 4196-24-73S62:17:18.000Z BP Sitting (Pre-Dialysis) 112/62 mmHg BP Sitting (Post-Dialysis) 158/81 mmHg Concurrent Access: falseAV Fistula Forearm (Left) Arterial Sitting Heart Rate Pre-Dialysis 75 BPM Sitting H eart Rate Post-Dialysis 70 BPM Temperature Pre-Dialysis 97.9 degF Temperature Post -Dialysis 97.5 degF October 08, 2023 In-Center Hemodialysis Treatment 6037-98-55V53:01:18.000Z 5189-17-36A05:06:19.000Z BP Sitting (Pre-Dialysis) 139/75 mmHg BP Sitting (Post-Dialysis) 134/76 mmHg Concurrent Access: falseAV Fistula Forearm (Left) Arterial Sitting Heart Rate Pre-Dialysis 69 BPM Sitting H eart Rate Post-Dialysis 68 BPM Temperature Pre-Dialysis 97.2 degF Temperature Post -Dialysis 97.5 degF October 06, 2023 In-Center Hemodialysis Treatment 5222-70-49C98:15:24.000Z 3798-56-12N37:18:25.000Z BP Sitting (Pre-Dialysis) 169/93 mmHg BP Sitting (Post-Dialysis) 131/69 mmHg Concurrent Access: falseAV Fistula Forearm (Left) Arterial Sitting Heart Rate Pre-Dialysis 81 BPM Sitting H eart Rate Post-Dialysis 62 BPM Temperature Pre-Dialysis 98.2 degF Temperature Post -Dialysis 98 degF October 03, 2023 In-Center Hemodialysis Treatment 2596-41-09F60:44:24.000Z 5108-30-86I92:44:25.000Z BP Sitting (Pre-Dialysis) 184/98 mmHg BP Sitting (Post-Dialysis) 148/73 mmHg Concurrent Access: falseAV Fistula Forearm (Left) Arterial Sitting Heart Rate Pre-Dialysis 76 BPM Sitting H eart Rate Post-Dialysis 67 BPM Temperature Pre-Dialysis 97.5 degF Temperature Post -Dialysis 97.7 degF October 01, 2023 In-Center Hemodialysis Treatment 9755-89-15Q54:44:11.000Z 7387-69-51R32:30:11.000Z BP Sitting (Pre-Dialysis) 145/72 mmHg BP Sitting (Post-Dialysis) 129/72 mmHg Concurrent Access: falseAV Fistula Forearm (Left) Arterial Sitting Heart Rate Pre-Dialysis 66 BPM Sitting H eart Rate Post-Dialysis 65 BPM Temperature Pre-Dialysis 98.4 degF Temperature Post -Dialysis 97.9 degF September 29, 2023 In-Center Hemodialysis Treatment 2734-19-17J09:52:00.000Z 8249-49-09K45:57:11.000Z BP Sitting (Pre-Dialysis) 159/90 mmHg BP Sitting (Post-Dialysis) 171/101 mmHg Concurrent Access: falseAV Fistula Forearm (Left) Arterial Sitting Heart Rate Pre-Dialysis 67 BPM Sitting H eart Rate Post-Dialysis 59 BPM Temperature Pre-Dialysis 97.3 degF Temperature Post -Dialysis 97.8 degF September 26, 2023 In-Center Hemodialysis Treatment 5852-23-96S69:05:00.000Z 6639-81-80V19:02:32.000Z BP Sitting (Pre-Dialysis) 125/69 mmHg BP Sitting (Post-Dialysis) 160/81 mmHg Concurrent Access: falseAV Fistula Forearm (Left) Arterial Sitting Heart Rate Pre-Dialysis 63 BPM Sitting H eart Rate Post-Dialysis 61 BPM Temperature Pre-Dialysis 97.3 degF Temperature Post -Dialysis 97.3 degF September 24, 2023 In-Center Hemodialysis Treatment 4244-49-70U83:56:30.000Z 2104-40-82A58:59:30.000Z BP Sitting (Pre-Dialysis) 124/62 mmHg BP Sitting (Post-Dialysis) 131/76 mmHg Concurrent Access: falseAV Fistula Forearm (Left) Arterial Sitting Heart Rate Pre-Dialysis 64 BPM Sitting H eart Rate Post-Dialysis 61 BPM Temperature Pre-Dialysis 97.9 degF Temperature Post -Dialysis 97.5 degF September 22, 2023 In-Center Hemodialysis Treatment 4142-10-04I83:00:00.000Z 2073-65-58J96:00:31.000Z BP Sitting (Pre-Dialysis) 143/79 mmHg BP Sitting (Post-Dialysis) 180/97 mmHg Concurrent Access: falseAV Fistula Forearm (Left) Arterial Sitting Heart Rate Pre-Dialysis 69 BPM Sitting H eart Rate Post-Dialysis 64 BPM Temperature Pre-Dialysis 98.2 degF Temperature Post -Dialysis 97.5 degF September 19, 2023 In-Center Hemodialysis Treatment 3247-65-12W86:02:00.000Z 9811-07-42J87:04:19.000Z BP Sitting (Pre-Dialysis) 110/54 mmHg BP Sitting (Post-Dialysis) 159/85 mmHg Concurrent Access: falseAV Fistula Forearm (Left) Arterial Sitting Heart Rate Pre-Dialysis 69 BPM Sitting H eart Rate Post-Dialysis 63 BPM Temperature Pre-Dialysis 97.2 degF Temperature Post -Dialysis 97.5 degF September 17, 2023 In-Center Hemodialysis Treatment 3017-82-29S59:52:00.000Z 6600-80-90J52:55:19.000Z BP Sitting (Pre-Dialysis) 129/70 mmHg BP Sitting (Post-Dialysis) 173/96 mmHg Concurrent Access: falseAV Fistula Forearm (Left) Arterial Sitting Heart Rate Pre-Dialysis 68 BPM Sitting H eart Rate Post-Dialysis 66 BPM Temperature Pre-Dialysis 97.3 degF Temperature Post -Dialysis 97.9 degF September 15, 2023 In-Center Hemodialysis Treatment 0185-75-39B17:57:00.000Z 1787-32-81V39:59:19.000Z BP Sitting (Pre-Dialysis) 142/78 mmHg BP Sitting (Post-Dialysis) 151/81 mmHg Concurrent Access: falseAV Fistula Forearm (Left) Arterial Sitting Heart Rate Pre-Dialysis 70 BPM Sitting H eart Rate Post-Dialysis 60 BPM Temperature Pre-Dialysis 97.5 degF Temperature Post -Dialysis 97.5 degF September 12, 2023 In-Center Hemodialysis Treatment 3634-94-58F64:50:00.000Z 5364-84-05N70:52:13.000Z BP Sitting (Pre-Dialysis) 119/64 mmHg BP Sitting (Post-Dialysis) 169/88 mmHg Concurrent Access: falseAV Fistula Forearm (Left) Arterial Sitting Heart Rate Pre-Dialysis 66 BPM Sitting H eart Rate Post-Dialysis 66 BPM Temperature Pre-Dialysis 97.3 degF Temperature Post -Dialysis 97.7 degF September 10, 2023 In-Center Hemodialysis Treatment 3242-49-44S96:01:14.000Z 2674-59-86G58:07:13.000Z BP Sitting (Pre-Dialysis) 144/81 mmHg BP Sitting (Post-Dialysis) 150/82 mmHg Concurrent Access: falseAV Fistula Forearm (Left) Arterial Sitting Heart Rate Pre-Dialysis 67 BPM Sitting H eart Rate Post-Dialysis 61 BPM Temperature Pre-Dialysis 98 degF Temperature Post -Dialysis 97.5 degF September 08, 2023 In-Center Hemodialysis Treatment 1390-39-63P09:10:00.000Z 2406-94-38U02:12:13.000Z BP Sitting (Pre-Dialysis) 146/73 mmHg BP Sitting (Post-Dialysis) 181/96 mmHg Concurrent Access: falseAV Fistula Forearm (Left) Arterial Sitting Heart Rate Pre-Dialysis 63 BPM Sitting H eart Rate Post-Dialysis 67 BPM Temperature Pre-Dialysis 97.2 degF Temperature Post -Dialysis 97.5 degF September 05, 2023 In-Center Hemodialysis Treatment 9073-60-42I84:05:00.000Z 0713-60-31Q33:09:19.000Z BP Sitting (Pre-Dialysis) 159/86 mmHg BP Sitting (Post-Dialysis) 164/84 mmHg Concurrent Access: falseAV Fistula Forearm (Left) Arterial Sitting Heart Rate Pre-Dialysis 69 BPM Sitting H eart Rate Post-Dialysis 64 BPM Temperature Pre-Dialysis 97.3 degF Temperature Post -Dialysis 98 degF September 01, 2023 In-Center Hemodialysis Treatment 3629-79-58I19:03:20.000Z 4887-45-50S68:45:00.000Z BP Sitting (Pre-Dialysis) 172/85 mmHg BP Sitting (Post-Dialysis) 175/87 mmHg Concurrent Access: falseAV Fistula Forearm (Left) Arterial Sitting Heart Rate Pre-Dialysis 64 BPM Sitting H eart Rate Post-Dialysis 61 BPM Temperature Pre-Dialysis 97.2 degF August 29, 2023 In-Center Hemodialysis Treatment 0935-83-19G64:45:00.000Z 9822-49-74J05:54:34.000Z BP Sitting (Pre-Dialysis) 153/73 mmHg BP Sitting (Post-Dialysis) 151/81 mmHg Concurrent Access: falseAV Fistula Forearm (Left) Arterial Sitting Heart Rate Pre-Dialysis 62 BPM Sitting H eart Rate Post-Dialysis 57 BPM Temperature Pre-Dialysis 97.2 degF Temperature Post -Dialysis 97.8 degF August 27, 2023 In-Center Hemodialysis Treatment 0238-57-76X25:12:00.000Z 4995-10-46Q02:20:34.000Z BP Sitting (Pre-Dialysis) 123/44 mmHg BP Sitting (Post-Dialysis) 148/73 mmHg Concurrent Access: falseAV Fistula Forearm (Left) Arterial Sitting Heart Rate Pre-Dialysis 61 BPM Sitting H eart Rate Post-Dialysis 60 BPM Temperature Pre-Dialysis 97.3 degF Temperature Post -Dialysis 97.8 degF August 25, 2023 In-Center Hemodialysis Treatment 7179-24-15Y83:03:00.000Z 5503-46-28E12:08:34.000Z BP Sitting (Pre-Dialysis) 164/83 mmHg BP Sitting (Post-Dialysis) 141/75 mmHg Concurrent Access: falseAV Fistula Forearm (Left) Arterial Sitting Heart Rate Pre-Dialysis 62 BPM Sitting H eart Rate Post-Dialysis 61 BPM Temperature Pre-Dialysis 97.3 degF Temperature Post -Dialysis 97.9 degF August 22, 2023 In-Center Hemodialysis Treatment 6840-58-66Y69:52:06.000Z 4173-02-20L77:52:05.000Z BP Sitting (Pre-Dialysis) 189/96 mmHg BP Sitting (Post-Dialysis) 183/102 mmHg Concurrent Access: falseAV Fistula Forearm (Left) Arterial Sitting Heart Rate Pre-Dialysis 70 BPM Sitting H eart Rate Post-Dialysis 64 BPM Temperature Pre-Dialysis 97.2 degF Temperature Post -Dialysis 97.5 degF August 20, 2023 In-Center Hemodialysis Treatment 1087-43-97O44:01:00.000Z 7795-61-71S56:06:23.000Z BP Sitting (Pre-Dialysis) 107/58 mmHg BP Sitting (Post-Dialysis) 134/65 mmHg Concurrent Access: falseAV Fistula Forearm (Left) Arterial Sitting Heart Rate Pre-Dialysis 81 BPM Sitting H eart Rate Post-Dialysis 78 BPM Temperature Pre-Dialysis 97.5 degF Temperature Post -Dialysis 97.3 degF August 18, 2023 In-Center Hemodialysis Treatment 0551-76-72J69:54:22.000Z 0785-62-15R23:56:23.000Z BP Sitting (Pre-Dialysis) 117/74 mmHg BP Sitting (Post-Dialysis) 152/84 mmHg Concurrent Access: falseAV Fistula Forearm (Left) Arterial Sitting Heart Rate Pre-Dialysis 74 BPM Sitting H eart Rate Post-Dialysis 76 BPM Temperature Pre-Dialysis 97.8 degF Temperature Post -Dialysis 97.7 degF August 15, 2023 In-Center Hemodialysis Treatment 6449-58-71A50:35:00.000Z 4980-15-95C65:38:17.000Z BP Sitting (Pre-Dialysis) 142/73 mmHg BP Sitting (Post-Dialysis) 118/65 mmHg Concurrent Access: falseAV Fistula Forearm (Left) Arterial Sitting Heart Rate Pre-Dialysis 76 BPM Sitting H eart Rate Post-Dialysis 81 BPM Temperature Pre-Dialysis 97.6 degF Temperature Post -Dialysis 97.2 degF August 13, 2023 In-Center Hemodialysis Treatment 4734-09-06X04:55:00.000Z 6168-76-91E43:03:15.000Z BP Sitting (Pre-Dialysis) 102/86 mmHg BP Sitting (Post-Dialysis) 136/93 mmHg Concurrent Access: falseAV Fistula Forearm (Left) Arterial Sitting Heart Rate Pre-Dialysis 103 BPM Sitting H eart Rate Post-Dialysis 85 BPM Temperature Pre-Dialysis 97.4 degF Temperature Post -Dialysis 97.5 degF August 11, 2023 In-Center Hemodialysis Treatment 9544-56-08T71:15:41.000Z 3048-69-05Z46:15:41.000Z BP Sitting (Pre-Dialysis) 106/57 mmHg BP Sitting (Post-Dialysis) 128/71 mmHg Concurrent Access: falseAV Fistula Forearm (Left) Arterial Sitting Heart Rate Pre-Dialysis 69 BPM Sitting H eart Rate Post-Dialysis 75 BPM Temperature Pre-Dialysis 97.1 degF Temperature Post -Dialysis 98.2 degF August 06, 2023 In-Center Hemodialysis Treatment 8546-66-59E87:47:00.000Z 7428-03-62M11:50:29.000Z BP Sitting (Pre-Dialysis) 114/61 mmHg BP Sitting (Post-Dialysis) 138/81 mmHg Concurrent Access: falseAV Fistula Forearm (Left) Arterial Sitting Heart Rate Pre-Dialysis 71 BPM Sitting H eart Rate Post-Dialysis 73 BPM Temperature Pre-Dialysis 97.2 degF Temperature Post -Dialysis 97.2 degF August 04, 2023 In-Center Hemodialysis Treatment 7871-83-83W99:39:30.000Z 9581-19-94S52:39:29.000Z BP Sitting (Pre-Dialysis) 147/82 mmHg BP Sitting (Post-Dialysis) 116/77 mmHg Concurrent Access: falseAV Fistula Forearm (Left) Arterial Sitting Heart Rate Pre-Dialysis 71 BPM Sitting H eart Rate Post-Dialysis 64 BPM Temperature Pre-Dialysis 97.4 degF Temperature Post -Dialysis 97.2 degF August 01, 2023 Additional Day Of Dialysis Treatment BP Sitting (Pre-Dialysis) 129/83 mmHg Concurrent Access: falseAV Fistula Forearm (Left) Arterial Sitting Heart Rate Pre-Dialysis 76 BPM Temperature Pre-Dialysis 97.4 degF July 30, 2023 In-Center Hemodialysis Treatment 9585-17-10Q73:49:52.000Z 8571-08-53W79:08:51.000Z BP Sitting (Pre-Dialysis) 119/70 mmHg BP Sitting (Post-Dialysis) 130/79 mmHg Concurrent Access: falseAV Fistula Forearm (Left) Arterial Sitting Heart Rate Pre-Dialysis 70 BPM Sitting H eart Rate Post-Dialysis 74 BPM Temperature Pre-Dialysis 97.8 degF Temperature Post -Dialysis 97.6 degF July 28, 2023 In-Center Hemodialysis Treatment 6328-75-60I01:51:28.000Z 5521-75-31D10:54:29.000Z BP Sitting (Pre-Dialysis) 99/52 mmHg BP Sitting (Post-Dialysis) 117/81 mmHg Concurrent Access: falseAV Fistula Forearm (Left) Arterial Sitting Heart Rate Pre-Dialysis 82 BPM Sitting H eart Rate Post-Dialysis 64 BPM Temperature Pre-Dialysis 97.2 degF Temperature Post -Dialysis 98.2 degF July 25, 2023 In-Center Hemodialysis Treatment 4060-65-24C89:32:00.000Z 3640-53-01R62:31:39.000Z BP Sitting (Pre-Dialysis) 108/65 mmHg BP Sitting (Post-Dialysis) 141/86 mmHg Concurrent Access: falseAV Fistula Forearm (Left) Arterial Sitting Heart Rate Pre-Dialysis 80 BPM Sitting H eart Rate Post-Dialysis 75 BPM Temperature Pre-Dialysis 96.9 degF Temperature Post -Dialysis 97.3 degF July 23, 2023 In-Center Hemodialysis Treatment 5740-44-13S63:56:00.000Z 5685-86-32F05:37:39.000Z BP Sitting (Pre-Dialysis) 109/58 mmHg BP Sitting (Post-Dialysis) 120/65 mmHg Concurrent Access: falseAV Fistula Forearm (Left) Arterial Sitting Heart Rate Pre-Dialysis 77 BPM Sitting H eart Rate Post-Dialysis 78 BPM Temperature Pre-Dialysis 97.2 degF July 11, 2023 In-Center Hemodialysis Treatment 450 mL/min 800 mL/min Concurrent Access: false July 09, 2023 In-Center Hemodialysis Treatment 20 24 -0 - T1 7: 46 :0 0. 00 0Z 20 24 -0 - T2 1: 52 :2 1. 00 0Z BP Sitting (Pre-Dial ysis) 101/59 mmHg BP Sitting (Post-Paola lysis) 134/89 mmHg Concurrent Access: falseAV Fistula Forearm (Left) Arterial Sitting Heart Rate Pre-Dialysis 80 BPM Sitting H eart Rate Post-Dialysis 119 BPM Temperature Pre-Dialysis 97.5 degF Temperature Post -Dialysis 97.6 degF June 05, 2023 Sequential Treatment 7368-79-13S32:51:11.000Z 7133-61-07I88:02:11.000Z BP Sitting (Pre-Dialysis) 119/72 mmHg BP Sitting (Post-Dialysis) 119/72 mmHg Concurrent Access: falseAV Fistula Forearm (Left) Arterial Sitting Heart Rate Pre-Dialysis 88 BPM Sitting H eart Rate Post-Dialysis 88 BPM Temperature Pre-Dialysis 97.6 degF Temperature Post -Dialysis 97.6 degF June 04, 2023 In-Center Hemodialysis Treatment 6486-14-92V76:16:14.000Z 4948-74-20B75:17:15.000Z BP Sitting (Pre-Dialysis) 113/85 mmHg BP Sitting (Post-Dialysis) 125/80 mmHg Concurrent Access: falseAV Fistula Forearm (Left) Arterial BP Standing (Pre-Dialysis) 140/82 mmHg Sitting Heart Rate Post-Dialysis 86 BPM Sitting Heart Rate Pre-Dialysis 94 BPM Standing Heart Rate Pre-Dialysis 90 BPM Temperature Pre-Dialysis 97.8 degF June 02, 2023 In-Center Hemodialysis Treatment 7152-64-36B20:58:00.000Z 2136-51-31E53:00:51.000Z BP Sitting (Pre-Dialysis) 130/91 mmHg BP Sitting (Post-Dialysis) 150/94 mmHg Concurrent Access: falseAV Fistula Forearm (Left) ArterialCentral Venous Catheter (CVC) Chest (Right) Venous Sitting Heart Rate Pre-Dialysis 99 BPM Sitting H eart Rate Post-Dialysis 100 BPM Temperature Pre-Dialysis 97.6 degF Temperature Post -Dialysis 98.1 degF May 30, 2023 In-Center Hemodialysis Treatment 3823-87-43N06:55:00.000Z 1201-02-05P66:01:42.000Z BP Sitting (Pre-Dialysis) 134/78 mmHg BP Sitting (Post-Dialysis) 125/75 mmHg Concurrent Access: falseAV Fistula Forearm (Left) ArterialCentral Venous Catheter (CVC) Chest (Right) Venous Sitting Heart Rate Pre-Dialysis 81 BPM Sitting H eart Rate Post-Dialysis 70 BPM Temperature Pre-Dialysis 97.2 degF Temperature Post -Dialysis 98.6 degF May 28, 2023 In-Center Hemodialysis Treatment [id number]:28:00.000Z 4913-14-28C20:30:48.000Z BP Sitting (Pre-Dialysis) 115/78 mmHg BP Sitting (Post-Dialysis) 142/76 mmHg Concurrent Access: falseAV Fistula Forearm (Left) ArterialCentral Venous Catheter (CVC) Chest (Right) Venous Sitting Heart Rate Pre-Dialysis 88 BPM Sitting H eart Rate Post-Dialysis 88 BPM Temperature Pre-Dialysis 97.7 degF Temperature Post -Dialysis 97.4 degF May 26, 2023 In-Center Hemodialysis Treatment 6940-81-41O32:03:00.000Z 6403-33-04S24:13:42.000Z BP Sitting (Pre-Dialysis) 125/74 mmHg BP Sitting (Post-Dialysis) 130/75 mmHg Concurrent Access: falseAV Fistula Forearm (Left) ArterialCentral Venous Catheter (CVC) Chest (Right) Venous Sitting Heart Rate Pre-Dialysis 11 BPM Sitting H eart Rate Post-Dialysis 84 BPM Temperature Pre-Dialysis 97.7 degF Temperature Post -Dialysis 97.7 degF May 23, 2023 In-Center Hemodialysis Treatment [id number]:54:39.000Z 8845-25-61W21:45:39.000Z BP Sitting (Pre-Dialysis) 135/86 mmHg BP Sitting (Post-Dialysis) 135/77 mmHg Concurrent Access: falseAV Fistula Forearm (Left) ArterialCentral Venous Catheter (CVC) Chest (Right) Venous Sitting Heart Rate Pre-Dialysis 106 BPM Sitting H eart Rate Post-Dialysis 81 BPM Temperature Pre-Dialysis 97.8 degF Temperature Post -Dialysis 97.5 degF May 22, 2023 Sequential Treatment [id number]:15:16.000Z 9509-84-44P37:27:16.000Z BP Sitting (Pre-Dialysis) 112/74 mmHg BP Sitting (Post-Dialysis) 100/56 mmHg Concurrent Access: falseAV Fistula Forearm (Left) ArterialCentral Venous Catheter (CVC) Chest (Right) Venous Sitting Heart Rate Pre-Dialysis 101 BPM Sitting H eart Rate Post-Dialysis 83 BPM Temperature Pre-Dialysis 97.8 degF Temperature Post -Dialysis 97.6 degF May 21, 2023 In-Center Hemodialysis Treatment 7954-33-31F13:14:00.000Z 2115-91-03D65:17:39.000Z BP Sitting (Pre-Dialysis) 124/62 mmHg BP Sitting (Post-Dialysis) 124/79 mmHg Concurrent Access: falseAV Fistula Forearm (Left) ArterialCentral Venous Catheter (CVC) Chest (Right) Venous Sitting Heart Rate Pre-Dialysis 95 BPM Sitting H eart Rate Post-Dialysis 89 BPM Temperature Pre-Dialysis 97.5 degF Temperature Post -Dialysis 97.8 degF May 20, 2023 Additional Day Of Dialysis Treatment 6061-23-15Z18:12:16.000Z 7188-31-87E12:31:15.000Z BP Sitting (Pre-Dialysis) 133/89 mmHg BP Sitting (Post-Dialysis) 122/85 mmHg Concurrent Access: falseAV Fistula Forearm (Left) ArterialCentral Venous Catheter (CVC) Chest (Right) Venous Sitting Heart Rate Pre-Dialysis 92 BPM Sitting H eart Rate Post-Dialysis 97 BPM Temperature Pre-Dialysis 97.9 degF Temperature Post -Dialysis 97.5 degF May 16, 2023 In-Center Hemodialysis Treatment 7710-50-01B27:06:00.000Z 8078-06-04Q09:31:43.000Z BP Sitting (Pre-Dialysis) 141/88 mmHg BP Sitting (Post-Dialysis) 136/85 mmHg Concurrent Access: falseAV Fistula Forearm (Left) ArterialCentral Venous Catheter (CVC) Chest (Right) Venous BP Standing (Pre-Dialysis) 129/75 mmHg Sitti ng Heart Rate Post-Dialysis 96 BPM Sitting Heart Rate Pre-Dialysis 83 BPM Temperatu re Post-Dialysis 97.8 degF Standing Heart Rate Pre-Dialysis 94 BPM Temperature Pre-Dialysis 97.6 degF May 14, 2023 In-Center Hemodialysis Treatment [id number]:44:43.000Z 0268-46-42N67:42:43.000Z BP Sitting (Pre-Dialysis) 134/78 mmHg BP Sitting (Post-Dialysis) 142/93 mmHg Concurrent Access: falseAV Fistula Forearm (Left) ArterialCentral Venous Catheter (CVC) Chest (Right) Venous BP Standing (Pre-Dialysis) 133/85 mmHg Sitting Heart Rate Post-Dialysis 92 BPM Sitting Heart Rate Pre-Dialysis 87 BPM Temperatu re Post-Dialysis 98 degF Standing Heart Rate Pre-Dialysis 95 BPM Temperature Pre-Dialysis 97.6 degF May 13, 2023 In-Center Hemodialysis Treatment 7867-07-56V48:09:00.000Z 0188-89-73E40:04:43.000Z BP Sitting (Pre-Dialysis) 147/95 mmHg BP Sitting (Post-Dialysis) 145/92 mmHg Concurrent Access: falseAV Fistula Forearm (Left) ArterialCentral Venous Catheter (CVC) Chest (Right) Venous Sitting Heart Rate Pre-Dialysis 103 BPM Sitting H eart Rate Post-Dialysis 93 BPM Temperature Pre-Dialysis 97.3 degF Temperature Post -Dialysis 97.7 degF May 09, 2023 In-Center Hemodialysis Treatment 3127-79-28Q96:07:00.000Z 6843-83-15R56:16:29.000Z BP Sitting (Pre-Dialysis) 159/105 mmHg BP Sitting (Post-Dialysis) 172/91 mmHg Concurrent Access: falseAV Fistula Forearm (Left) ArterialCentral Venous Catheter (CVC) Chest (Right) Venous Sitting Heart Rate Pre-Dialysis 118 BPM Sitting H eart Rate Post-Dialysis 80 BPM Temperature Pre-Dialysis 97.7 degF Temperature Post -Dialysis 97.8 degF May 06, 2023 In-Center Hemodialysis Treatment 3899-19-75Q07:23:00.000Z 3948-71-89B21:26:29.000Z BP Sitting (Pre-Dialysis) 157/90 mmHg BP Sitting (Post-Dialysis) 143/89 mmHg Concurrent Access: falseAV Fistula Forearm (Left) ArterialCentral Venous Catheter (CVC) Chest (Right) Venous Sitting Heart Rate Pre-Dialysis 93 BPM Sitting H eart Rate Post-Dialysis 100 BPM Temperature Pre-Dialysis 97.7 degF Temperature Post -Dialysis 97.2 degF May 04, 2023 In-Center Hemodialysis Treatment [id number]:08:00.000Z 5356-79-90O56:49:29.000Z BP Sitting (Pre-Dialysis) 140/84 mmHg BP Sitting (Post-Dialysis) 139/81 mmHg Concurrent Access: falseAV Fistula Forearm (Left) ArterialCentral Venous Catheter (CVC) Chest (Right) Venous Sitting Heart Rate Pre-Dialysis 96 BPM Sitting H eart Rate Post-Dialysis 94 BPM Temperature Pre-Dialysis 97.8 degF Temperature Post -Dialysis 97.8 degF May 02, 2023 In-Center Hemodialysis Treatment 9971-90-41G57:09:00.000Z 5842-54-39M85:50:11.000Z BP Sitting (Pre-Dialysis) 127/87 mmHg BP Sitting (Post-Dialysis) 128/87 mmHg Concurrent Access: falseAV Fistula Forearm (Left) ArterialCentral Venous Catheter (CVC) Chest (Right) Venous BP Standing (Pre-Dialysis) 137/85 mmHg Sitti ng Heart Rate Post-Dialysis 84 BPM Sitting Heart Rate Pre-Dialysis 102 BPM Temperatu re Post-Dialysis 97.6 degF Standing Heart Rate Pre-Dialysis 89 BPM Temperature Pre-Dialysis 97.8 degF April 30, 2023 In-Center Hemodialysis Treatment 6922-06-12C67:42:00.000Z 4618-71-05Z99:31:32.000Z BP Sitting (Pre-Dialysis) 140/89 mmHg BP Sitting (Post-Dialysis) 137/91 mmHg Concurrent Access: falseAV Fistula Forearm (Left) ArterialCentral Venous Catheter (CVC) Chest (Right) Venous Sitting Heart Rate Pre-Dialysis 93 BPM Sitting H eart Rate Post-Dialysis 82 BPM Temperature Pre-Dialysis 97.6 degF Temperature Post -Dialysis 97.3 degF April 28, 2023 In-Center Hemodialysis Treatment 9475-59-09V60:03:00.000Z 9202-19-11G31:40:10.000Z BP Sitting (Pre-Dialysis) 128/78 mmHg BP Sitting (Post-Dialysis) 127/74 mmHg Concurrent Access: falseAV Fistula Forearm (Left) ArterialCentral Venous Catheter (CVC) Chest (Right) Venous Sitting Heart Rate Pre-Dialysis 84 BPM Sitting H eart Rate Post-Dialysis 78 BPM Temperature Pre-Dialysis 97.8 degF Temperature Post -Dialysis 97.2 degF April 25, 2023 In-Center Hemodialysis Treatment [id number]:36:00.000Z 7654-29-18G12:38:09.000Z BP Sitting (Pre-Dialysis) 148/87 mmHg BP Sitting (Post-Dialysis) 136/92 mmHg Concurrent Access: falseAV Fistula Forearm (Left) ArterialCentral Venous Catheter (CVC) Chest (Right) Venous BP Standing (Pre-Dialysis) 148/97 mmHg Sitting Heart Rate Post-Dialysis 94 BPM Sitting Heart Rate Pre-Dialysis 87 BPM Temperatu re Post-Dialysis 98 degF Standing Heart Rate Pre-Dialysis 97 BPM Temperature Pre-Dialysis 97.8 degF April 23, 2023 In-Center Hemodialysis Treatment 3820-91-89I93:02:08.000Z 3718-12-60E78:55:09.000Z BP Sitting (Pre-Dialysis) 140/81 mmHg BP Sitting (Post-Dialysis) 134/96 mmHg Concurrent Access: falseAV Fistula Forearm (Left) ArterialCentral Venous Catheter (CVC) Chest (Right) Venous Sitting Heart Rate Pre-Dialysis 89 BPM Sitting H eart Rate Post-Dialysis 92 BPM Temperature Pre-Dialysis 97.3 degF April 21, 2023 In-Center Hemodialysis Treatment 1054-59-46Y69:21:00.000Z 0342-96-38N01:35:09.000Z BP Sitting (Pre-Dialysis) 130/88 mmHg BP Sitting (Post-Dialysis) 128/91 mmHg Concurrent Access: falseAV Fistula Forearm (Left) ArterialAV Fistula Forearm (Left) Venous Sitting Heart Rate Pre-Dialysis 99 BPM Sitting H eart Rate Post-Dialysis 96 BPM Temperature Pre-Dialysis 97 degF Temperature Post -Dialysis 97.3 degF April 18, 2023 In-Center Hemodialysis Treatment 8132-24-93O65:04:27.000Z 5191-73-69A62:07:28.000Z BP Sitting (Pre-Dialysis) 116/75 mmHg BP Sitting (Post-Dialysis) 136/86 mmHg Concurrent Access: falseCentral Venous Catheter (CVC) Chest (Right) ArterialAV Fistula Forearm (Left) Venous Sitting Heart Rate Pre-Dialysis 103 BPM Sitting H eart Rate Post-Dialysis 77 BPM Temperature Pre-Dialysis 97.4 degF Temperature Post -Dialysis 97.4 degF April 16, 2023 In-Center Hemodialysis Treatment 9552-91-03A89:54:00.000Z 1973-84-55V34:43:23.000Z BP Sitting (Pre-Dialysis) 139/83 mmHg BP Sitting (Post-Dialysis) 149/93 mmHg Concurrent Access: falseCentral Venous Catheter (CVC) Chest (Right) ArterialAV Fistula Forearm (Left) Venous Sitting Heart Rate Pre-Dialysis 99 BPM Sitting H eart Rate Post-Dialysis 95 BPM Temperature Pre-Dialysis 97.3 degF Temperature Post -Dialysis 97.9 degF April 13, 2023 Sequential Treatment 9795-16-89L03:29:00.000Z 9612-26-41Y77:31:09.000Z BP Sitting (Pre-Dialysis) 138/93 mmHg BP Sitting (Post-Dialysis) 127/90 mmHg Concurrent Access: falseCentral Venous Catheter (CVC) Chest (Right) ArterialAV Fistula Forearm (Left) Venous Sitting Heart Rate Pre-Dialysis 86 BPM Sitting H eart Rate Post-Dialysis 102 BPM Temperature Pre-Dialysis 98 degF Temperature Post -Dialysis 97.3 degF April 11, 2023 In-Center Hemodialysis Treatment 0383-43-30Z64:42:47.000Z 1429-99-15D82:47:48.000Z BP Sitting (Pre-Dialysis) 135/83 mmHg BP Sitting (Post-Dialysis) 138/83 mmHg Concurrent Access: falseCentral Venous Catheter (CVC) Chest (Right) ArterialAV Fistula Forearm (Left) Venous Sitting Heart Rate Pre-Dialysis 88 BPM Sitting H eart Rate Post-Dialysis 94 BPM Temperature Pre-Dialysis 97.5 degF Temperature Post -Dialysis 97.2 degF April 09, 2023 In-Center Hemodialysis Treatment 6029-86-20W55:34:47.000Z 6527-46-93V14:44:48.000Z BP Sitting (Pre-Dialysis) 142/84 mmHg BP Sitting (Post-Dialysis) 153/92 mmHg Concurrent Access: falseCentral Venous Catheter (CVC) Chest (Right) ArterialAV Fistula Forearm (Left) Venous Sitting Heart Rate Pre-Dialysis 87 BPM Sitting H eart Rate Post-Dialysis 88 BPM Temperature Pre-Dialysis 97.8 degF Temperature Post -Dialysis 97.6 degF April 06, 2023 Sequential Treatment 4904-15-29P27:13:17.000Z 2900-17-39U91:21:17.000Z BP Sitting (Pre-Dialysis) 143/89 mmHg BP Sitting (Post-Dialysis) 152/95 mmHg Concurrent Access: falseCentral Venous Catheter (CVC) Chest (Right) ArterialAV Fistula Forearm (Left) Venous Sitting Heart Rate Pre-Dialysis 103 BPM Sitting H eart Rate Post-Dialysis 93 BPM Temperature Pre-Dialysis 97.7 degF Temperature Post -Dialysis 98 degF April 04, 2023 In-Center Hemodialysis Treatment 0251-37-96R38:58:26.000Z 6077-96-97O41:01:26.000Z BP Sitting (Pre-Dialysis) 131/80 mmHg BP Sitting (Post-Dialysis) 132/82 mmHg Concurrent Access: falseCentral Venous Catheter (CVC) Chest (Right) ArterialAV Fistula Forearm (Left) Venous Sitting Heart Rate Pre-Dialysis 88 BPM Sitting H eart Rate Post-Dialysis 93 BPM Temperature Pre-Dialysis 98.2 degF Temperature Post -Dialysis 98 degF April 02, 2023 In-Center Hemodialysis Treatment 4724-97-62P34:26:26.000Z 6784-86-47E41:30:26.000Z BP Sitting (Pre-Dialysis) 142/87 mmHg BP Sitting (Post-Dialysis) 140/83 mmHg Concurrent Access: falseCentral Venous Catheter (CVC) Chest (Right) ArterialAV Fistula Forearm (Left) Venous Sitting Heart Rate Pre-Dialysis 99 BPM BP Standing (Post-Dialysis) 138/84 mmHg Temperature Pre-Dialysis 97.7 degF Sitting Heart Ra te Post-Dialysis 91 BPM Standing Heart Rate Post-Paola lysis 97 BPM Temperature Post-Dialysis 97 .2 degF March 31, 2023 In-Center Hemodialysis Treatment 2885-30-47X26:24:00.000Z 4040-03-88M24:27:26.000Z BP Sitting (Pre-Dialysis) 125/78 mmHg BP Sitting (Post-Dialysis) 125/79 mmHg Concurrent Access: falseCentral Venous Catheter (CVC) Chest (Right) ArterialAV Fistula Forearm (Left) Venous Sitting Heart Rate Pre-Dialysis 94 BPM Sitting H eart Rate Post-Dialysis 78 BPM Temperature Pre-Dialysis 98 degF Temperature Post -Dialysis 97.1 degF March 30, 2023 Sequential Treatment 6780-65-62O54:55:16.000Z 3789-69-84O26:49:16.000Z BP Sitting (Pre-Dialysis) 144/90 mmHg BP Sitting (Post-Dialysis) 140/90 mmHg Concurrent Access: falseCentral Venous Catheter (CVC) Chest (Right) ArterialAV Fistula Forearm (Left) Venous Sitting Heart Rate Pre-Dialysis 96 BPM Sitting H eart Rate Post-Dialysis 107 BPM Temperature Pre-Dialysis 97.9 degF Temperature Post -Dialysis 97.6 degF March 28, 2023 In-Center Hemodialysis Treatment 2609-97-77Q48:54:24.000Z 7251-47-97P93:53:24.000Z BP Sitting (Pre-Dialysis) 152/93 mmHg BP Sitting (Post-Dialysis) 157/90 mmHg Concurrent Access: falseCentral Venous Catheter (CVC) Chest (Right) ArterialAV Fistula Forearm (Left) Venous Sitting Heart Rate Pre-Dialysis 94 BPM Sitting H eart Rate Post-Dialysis 88 BPM Temperature Pre-Dialysis 97 degF Temperature Post -Dialysis 97.2 degF March 26, 2023 In-Center Hemodialysis Treatment 5685-51-27F98:51:00.000Z 0271-19-72B50:45:24.000Z BP Sitting (Pre-Dialysis) 138/76 mmHg BP Sitting (Post-Dialysis) 136/91 mmHg Concurrent Access: falseCentral Venous Catheter (CVC) Chest (Right) ArterialAV Fistula Forearm (Left) Venous BP Standing (Pre-Dialysis) 136/86 mmHg Sitti ng Heart Rate Post-Dialysis 83 BPM Sitting Heart Rate Pre-Dialysis 79 BPM Temperatu re Post-Dialysis 97.6 degF Standing Heart Rate Pre-Dialysis 85 BPM Temperature Pre-Dialysis 98 degF March 24, 2023 In-Center Hemodialysis Treatment 9155-32-49T44:46:00.000Z 1813-49-48K01:50:20.000Z BP Sitting (Pre-Dialysis) 142/89 mmHg BP Sitting (Post-Dialysis) 154/90 mmHg Concurrent Access: falseCentral Venous Catheter (CVC) Chest (Right) ArterialAV Fistula Forearm (Left) Venous BP Standing (Pre-Dialysis) 139/75 mmHg BP Standing (P ost-Dialysis) 149/90 mmHg Sitting Heart Rate Pre-Dialysis 99 BPM Sitting Heart Rate Post-Dialysis 94 BPM Standing Heart Rate Pre-Dialysis 99 BPM Standing Heart Rate Post-Dialysis 87 BPM Temperature Pre-Dialysis 97 degF Temperature Post -Dialysis 97.8 degF March 21, 2023 In-Center Hemodialysis Treatment 8444-92-15G18:24:00.000Z 9557-13-19Q96:30:00.000Z BP Sitting (Pre-Dialysis) 145/96 mmHg BP Sitting (Post-Dialysis) 144/87 mmHg Concurrent Access: falseCentral Venous Catheter (CVC) Chest (Right) ArterialAV Fistula Forearm (Left) Venous Sitting Heart Rate Pre-Dialysis 99 BPM BP Standing (Post-Dialysis) 143/84 mmHg Temperature Pre-Dialysis 97.5 degF Sitting Heart Ra te Post-Dialysis 78 BPM Standing Heart Rate Post-Paola lysis 94 BPM Temperature Post-Dialysis 97 .7 degF March 19, 2023 In-Center Hemodialysis Treatment 2157-30-23S41:50:30.000Z 3913-19-27H44:53:30.000Z BP Sitting (Pre-Dialysis) 142/88 mmHg BP Sitting (Post-Dialysis) 121/79 mmHg Concurrent Access: falseCentral Venous Catheter (CVC) Chest (Right) ArterialAV Fistula Forearm (Left) Venous Sitting Heart Rate Pre-Dialysis 86 BPM Sitting H eart Rate Post-Dialysis 83 BPM Temperature Pre-Dialysis 98.6 degF Temperature Post -Dialysis 97.4 degF March 17, 2023 In-Center Hemodialysis Treatment 0682-99-82X69:58:13.000Z 3314-78-62N60:56:14.000Z BP Sitting (Pre-Dialysis) 134/94 mmHg BP Sitting (Post-Dialysis) 146/84 mmHg Concurrent Access: falseCentral Venous Catheter (CVC) Chest (Right) ArterialAV Fistula Forearm (Left) Venous Sitting Heart Rate Pre-Dialysis 99 BPM Sitting H eart Rate Post-Dialysis 97 BPM Temperature Pre-Dialysis 97.5 degF Temperature Post -Dialysis 97.9 degF March 14, 2023 In-Center Hemodialysis Treatment 4398-84-87S88:30:00.000Z 3302-12-87L41:38:43.000Z BP Sitting (Pre-Dialysis) 136/82 mmHg BP Sitting (Post-Dialysis) 143/91 mmHg Concurrent Access: falseCentral Venous Catheter (CVC) Chest (Right) ArterialAV Fistula Forearm (Left) Venous Sitting Heart Rate Pre-Dialysis 93 BPM Sitting H eart Rate Post-Dialysis 86 BPM Temperature Pre-Dialysis 98.4 degF Temperature Post -Dialysis 98.5 degF March 12, 2023 In-Center Hemodialysis Treatment 2248-77-39H11:15:00.000Z 0508-95-27P96:31:43.000Z BP Sitting (Pre-Dialysis) 141/96 mmHg BP Sitting (Post-Dialysis) 145/98 mmHg Concurrent Access: falseCentral Venous Catheter (CVC) Chest (Right) ArterialAV Fistula Forearm (Left) Venous Sitting Heart Rate Pre-Dialysis 93 BPM Sitting H eart Rate Post-Dialysis 98 BPM Temperature Pre-Dialysis 98.2 degF Temperature Post -Dialysis 97.3 degF March 10, 2023 In-Center Hemodialysis Treatment 8811-51-04M55:23:42.000Z 5434-81-44J41:52:43.000Z BP Sitting (Pre-Dialysis) 157/92 mmHg BP Sitting (Post-Dialysis) 134/84 mmHg Concurrent Access: falseCentral Venous Catheter (CVC) Chest (Right) ArterialAV Fistula Forearm (Left) Venous Sitting Heart Rate Pre-Dialysis 101 BPM BP Standing (Post-Dialysis) 149/91 mmHg Temperature Pre-Dialysis 98.2 degF Sitting Heart Ra te Post-Dialysis 95 BPM Standing Heart Rate Post-Paola lysis 87 BPM Temperature Post-Dialysis 97 .3 degF March 07, 2023 In-Center Hemodialysis Treatment 0015-88-61K41:27:22.000Z 8363-68-10Z95:31:24.000Z BP Sitting (Pre-Dialysis) 136/80 mmHg BP Sitting (Post-Dialysis) 155/94 mmHg Concurrent Access: falseCentral Venous Catheter (CVC) Chest (Right) ArterialAV Fistula Forearm (Left) Venous Sitting Heart Rate Pre-Dialysis 86 BPM Sitting H eart Rate Post-Dialysis 82 BPM Temperature Pre-Dialysis 97.9 degF Temperature Post -Dialysis 97.8 degF March 05, 2023 In-Center Hemodialysis Treatment 0524-83-88Y78:11:22.000Z 7603-47-64V15:16:22.000Z BP Sitting (Pre-Dialysis) 165/99 mmHg BP Sitting (Post-Dialysis) 160/114 mmHg Concurrent Access: falseCentral Venous Catheter (CVC) Chest (Right) ArterialAV Fistula Forearm (Left) Venous Sitting Heart Rate Pre-Dialysis 97 BPM Sitting H eart Rate Post-Dialysis 97 BPM Temperature Pre-Dialysis 98 degF Temperature Post -Dialysis 97.8 degF March 03, 2023 In-Center Hemodialysis Treatment 8113-51-80K59:30:00.000Z 1256-13-02T99:30:00.000Z BP Sitting (Pre-Dialysis) 134/77 mmHg BP Sitting (Post-Dialysis) 141/84 mmHg Concurrent Access: falseCentral Venous Catheter (CVC) Chest (Right) ArterialAV Fistula Forearm (Left) Venous Sitting Heart Rate Pre-Dialysis 97 BPM Sitting H eart Rate Post-Dialysis 85 BPM Temperature Pre-Dialysis 98.3 degF Temperature Post -Dialysis 98.1 degF February 28, 2023 In-Center Hemodialysis Treatment 7176-20-89S19:39:00.000Z 6826-89-29H42:30:36.000Z BP Sitting (Pre-Dialysis) 124/74 mmHg BP Sitting (Post-Dialysis) 138/83 mmHg Concurrent Access: falseCentral Venous Catheter (CVC) Chest (Right) Arterial Sitting Heart Rate Pre-Dialysis 86 BPM Sitting H eart Rate Post-Dialysis 92 BPM Temperature Pre-Dialysis 97 degF Temperature Post -Dialysis 97.2 degF February 26, 2023 In-Center Hemodialysis Treatment 8342-81-10F64:42:00.000Z 8077-79-43W19:48:47.000Z BP Sitting (Pre-Dialysis) 163/91 mmHg BP Sitting (Post-Dialysis) 138/80 mmHg Concurrent Access: falseCentral Venous Catheter (CVC) Chest (Right) Arterial Sitting Heart Rate Pre-Dialysis 88 BPM Sitting H eart Rate Post-Dialysis 85 BPM Temperature Pre-Dialysis 98.1 degF February 24, 2023 In-Center Hemodialysis Treatment 8439-11-89N51:34:46.000Z 9003-35-81V45:36:47.000Z BP Sitting (Pre-Dialysis) 141/86 mmHg BP Sitting (Post-Dialysis) 153/81 mmHg Concurrent Access: falseCentral Venous Catheter (CVC) Chest (Right) Arterial Sitting Heart Rate Pre-Dialysis 80 BPM Sitting H eart Rate Post-Dialysis 73 BPM Temperature Pre-Dialysis 97.8 degF Temperature Post -Dialysis 97.6 degF February 21, 2023 In-Center Hemodialysis Treatment 1404-84-69G50:29:26.000Z 0270-69-81L76:29:26.000Z BP Sitting (Pre-Dialysis) 144/73 mmHg BP Sitting (Post-Dialysis) 143/85 mmHg Concurrent Access: falseCentral Venous Catheter (CVC) Chest (Right) Arterial Sitting Heart Rate Pre-Dialysis 82 BPM Sitting H eart Rate Post-Dialysis 94 BPM Temperature Pre-Dialysis 98.7 degF Temperature Post -Dialysis 97.2 degF February 19, 2023 In-Center Hemodialysis Treatment 3166-78-57H04:00:00.000Z 7230-97-38Y36:47:15.000Z BP Sitting (Pre-Dialysis) 140/82 mmHg BP Sitting (Post-Dialysis) 128/79 mmHg Concurrent Access: falseCentral Venous Catheter (CVC) Chest (Right) Arterial BP Standing (Pre-Dialysis) 149/87 mmHg BP Standing (P ost-Dialysis) 138/94 mmHg Sitting Heart Rate Pre-Dialysis 85 BPM Sitting Heart Rate Post-Dialysis 79 BPM Standing Heart Rate Pre-Dialysis 82 BPM Standing Heart Rate Post-Dialysis 93 BPM Temperature Pre-Dialysis 98 degF Temperature Post -Dialysis 97.3 degF February 17, 2023 In-Center Hemodialysis Treatment 3741-45-20B71:09:26.000Z 1944-59-52Q33:23:26.000Z BP Sitting (Pre-Dialysis) 147/87 mmHg BP Sitting (Post-Dialysis) 135/87 mmHg Concurrent Access: falseCentral Venous Catheter (CVC) Chest (Right) Arterial Sitting Heart Rate Pre-Dialysis 82 BPM Sitting H eart Rate Post-Dialysis 81 BPM Temperature Pre-Dialysis 98.2 degF Temperature Post -Dialysis 97.2 degF February 14, 2023 In-Center Hemodialysis Treatment 7808-18-70M29:34:18.000Z 3139-63-36K34:33:18.000Z BP Sitting (Pre-Dialysis) 149/90 mmHg BP Sitting (Post-Dialysis) 149/97 mmHg Concurrent Access: falseCentral Venous Catheter (CVC) Chest (Right) Arterial Sitting Heart Rate Pre-Dialysis 103 BPM Sitting H eart Rate Post-Dialysis 100 BPM Temperature Pre-Dialysis 97.8 degF Temperature Post -Dialysis 98.4 degF February 12, 2023 In-Center Hemodialysis Treatment 4562-11-33G51:01:18.000Z 2105-13-11Z25:48:19.000Z BP Sitting (Pre-Dialysis) 149/91 mmHg BP Sitting (Post-Dialysis) 148/102 mmHg Concurrent Access: falseCentral Venous Catheter (CVC) Chest (Right) Arterial Sitting Heart Rate Pre-Dialysis 81 BPM Sitting H eart Rate Post-Dialysis 104 BPM Temperature Pre-Dialysis 97.8 degF Temperature Post -Dialysis 97.5 degF February 10, 2023 In-Center Hemodialysis Treatment 4912-89-17D86:10:18.000Z 5835-09-24Z96:12:18.000Z BP Sitting (Pre-Dialysis) 159/94 mmHg BP Sitting (Post-Dialysis) 149/92 mmHg Concurrent Access: falseCentral Venous Catheter (CVC) Chest (Right) Arterial Sitting Heart Rate Pre-Dialysis 85 BPM Sitting H eart Rate Post-Dialysis 86 BPM Temperature Pre-Dialysis 97.4 degF Temperature Post -Dialysis 97.8 degF February 07, 2023 In-Center Hemodialysis Treatment 7540-19-63R97:04:00.000Z 0933-92-76J27:47:19.000Z BP Sitting (Pre-Dialysis) 141/80 mmHg BP Sitting (Post-Dialysis) 155/94 mmHg Concurrent Access: falseCentral Venous Catheter (CVC) Chest (Right) Arterial Sitting Heart Rate Pre-Dialysis 83 BPM Sitting H eart Rate Post-Dialysis 92 BPM Temperature Pre-Dialysis 98.4 degF Temperature Post -Dialysis 98.4 degF February 05, 2023 In-Center Hemodialysis Treatment 8635-96-23W66:13:00.000Z 5053-10-69L69:18:27.000Z BP Sitting (Pre-Dialysis) 126/92 mmHg BP Sitting (Post-Dialysis) 135/97 mmHg Concurrent Access: falseCentral Venous Catheter (CVC) Chest (Right) Arterial Sitting Heart Rate Pre-Dialysis 90 BPM Sitting H eart Rate Post-Dialysis 81 BPM Temperature Pre-Dialysis 98.1 degF Temperature Post -Dialysis 97.5 degF February 03, 2023 In-Center Hemodialysis Treatment 7263-36-81E79:18:00.000Z 3649-84-17Y91:26:34.000Z BP Sitting (Pre-Dialysis) 129/73 mmHg BP Sitting (Post-Dialysis) 150/94 mmHg Concurrent Access: falseCentral Venous Catheter (CVC) Chest (Right) Arterial Sitting Heart Rate Pre-Dialysis 80 BPM Sitting H eart Rate Post-Dialysis 95 BPM Temperature Pre-Dialysis 97.7 degF Temperature Post -Dialysis 97.8 degF January 31, 2023 In-Center Hemodialysis Treatment 9295-58-89Q20:53:00.000Z 9787-34-65Y56:51:04.000Z BP Sitting (Pre-Dialysis) 148/87 mmHg BP Sitting (Post-Dialysis) 140/88 mmHg Concurrent Access: falseCentral Venous Catheter (CVC) Chest (Right) Arterial Sitting Heart Rate Pre-Dialysis 77 BPM Sitting H eart Rate Post-Dialysis 80 BPM Temperature Pre-Dialysis 97.8 degF Temperature Post -Dialysis 97 degF January 29, 2023 In-Center Hemodialysis Treatment 9646-34-42O47:35:20.000Z 4616-50-92V08:41:20.000Z BP Sitting (Pre-Dialysis) 131/89 mmHg BP Sitting (Post-Dialysis) 134/98 mmHg Concurrent Access: falseCentral Venous Catheter (CVC) Chest (Right) Arterial Sitting Heart Rate Pre-Dialysis 103 BPM Sitting H eart Rate Post-Dialysis 87 BPM Temperature Pre-Dialysis 97.5 degF Temperature Post -Dialysis 97.7 degF January 27, 2023 In-Center Hemodialysis Treatment 2591-45-08G79:12:00.000Z 0113-69-22R99:47:20.000Z BP Sitting (Pre-Dialysis) 127/77 mmHg BP Sitting (Post-Dialysis) 147/93 mmHg Concurrent Access: falseCentral Venous Catheter (CVC) Chest (Right) Arterial Sitting Heart Rate Pre-Dialysis 82 BPM Sitting H eart Rate Post-Dialysis 97 BPM Temperature Pre-Dialysis 98.1 degF Temperature Post -Dialysis 97.2 degF January 20, 2023 In-Center Hemodialysis Treatment 3216-89-58G16:24:00.000Z 6304-94-00N20:33:20.000Z BP Sitting (Pre-Dialysis) 144/87 mmHg BP Sitting (Post-Dialysis) 145/85 mmHg Concurrent Access: falseCentral Venous Catheter (CVC) Chest (Right) Arterial Sitting Heart Rate Pre-Dialysis 92 BPM Sitting H eart Rate Post-Dialysis 90 BPM Temperature Pre-Dialysis 98.5 degF Temperature Post -Dialysis 97.8 degF January 17, 2023 In-Center Hemodialysis Treatment [id number]:35:18.000Z 6264-83-39D64:33:19.000Z BP Sitting (Pre-Dialysis) 141/77 mmHg BP Sitting (Post-Dialysis) 140/87 mmHg Concurrent Access: falseCentral Venous Catheter (CVC) Chest (Right) Arterial Sitting Heart Rate Pre-Dialysis 84 BPM Sitting H eart Rate Post-Dialysis 79 BPM Temperature Pre-Dialysis 97.7 degF Temperature Post -Dialysis 98 degF January 15, 2023 In-Center Hemodialysis Treatment [id number]:08:38.000Z 0525-29-57F36:09:38.000Z BP Sitting (Pre-Dialysis) 131/107 mmHg BP Sitting (Post-Dialysis) 149/90 mmHg Concurrent Access: falseCentral Venous Catheter (CVC) Chest (Right) Arterial Sitting Heart Rate Pre-Dialysis 90 BPM Sitting H eart Rate Post-Dialysis 92 BPM Temperature Pre-Dialysis 97.8 degF Temperature Post -Dialysis 98 degF January 12, 2023 In-Center Hemodialysis Treatment 9942-67-97L45:27:00.000Z 9750-13-48N46:33:57.000Z BP Sitting (Pre-Dialysis) 141/88 mmHg BP Sitting (Post-Dialysis) 147/84 mmHg Concurrent Access: falseCentral Venous Catheter (CVC) Chest (Right) Arterial Sitting Heart Rate Pre-Dialysis 96 BPM Sitting H eart Rate Post-Dialysis 93 BPM Temperature Pre-Dialysis 98.4 degF Temperature Post -Dialysis 98.2 degF January 10, 2023 In-Center Hemodialysis Treatment 7422-21-46F45:12:24.000Z 0628-64-99D87:12:24.000Z BP Sitting (Pre-Dialysis) 145/91 mmHg BP Sitting (Post-Dialysis) 134/92 mmHg Concurrent Access: falseCentral Venous Catheter (CVC) Chest (Right) Arterial Sitting Heart Rate Pre-Dialysis 96 BPM Sitting H eart Rate Post-Dialysis 90 BPM Temperature Pre-Dialysis 98.7 degF Temperature Post -Dialysis 97.5 degF January 08, 2023 In-Center Hemodialysis Treatment 5340-16-24R12:56:12.000Z 9568-84-68I98:50:12.000Z BP Sitting (Pre-Dialysis) 142/89 mmHg BP Sitting (Post-Dialysis) 146/88 mmHg Concurrent Access: falseCentral Venous Catheter (CVC) Chest (Right) Arterial Sitting Heart Rate Pre-Dialysis 93 BPM Sitting H eart Rate Post-Dialysis 86 BPM Temperature Pre-Dialysis 98.6 degF Temperature Post -Dialysis 97.1 degF January 06, 2023 In-Center Hemodialysis Treatment [id number]:24:43.000Z 3876-00-54H80:29:43.000Z BP Sitting (Pre-Dialysis) 150/80 mmHg BP Sitting (Post-Dialysis) 132/84 mmHg Concurrent Access: falseCentral Venous Catheter (CVC) Chest (Right) Arterial Sitting Heart Rate Pre-Dialysis 84 BPM Sitting H eart Rate Post-Dialysis 86 BPM Temperature Pre-Dialysis 98.1 degF Temperature Post -Dialysis 97.2 degF January 03, 2023 In-Center Hemodialysis Treatment [id number]:13:09.000Z 9951-06-73U29:13:09.000Z BP Sitting (Pre-Dialysis) 143/90 mmHg BP Sitting (Post-Dialysis) 144/89 mmHg Concurrent Access: falseCentral Venous Catheter (CVC) Chest (Right) Arterial Sitting Heart Rate Pre-Dialysis 94 BPM Sitting H eart Rate Post-Dialysis 83 BPM Temperature Pre-Dialysis 97.7 degF Temperature Post -Dialysis 97.8 degF January 01, 2023 In-Center Hemodialysis Treatment 6282-56-16F77:29:04.000Z 7594-35-32N18:32:04.000Z BP Sitting (Pre-Dialysis) 136/87 mmHg BP Sitting (Post-Dialysis) 148/79 mmHg Concurrent Access: falseCentral Venous Catheter (CVC) Chest (Right) Arterial Sitting Heart Rate Pre-Dialysis 94 BPM Sitting H eart Rate Post-Dialysis 90 BPM Temperature Pre-Dialysis 98.7 degF Temperature Post -Dialysis 97 degF December 30, 2022 In-Center Hemodialysis Treatment [id number]:28:02.000Z 3313-93-94H41:33:03.000Z BP Sitting (Pre-Dialysis) 143/84 mmHg BP Sitting (Post-Dialysis) 140/85 mmHg Concurrent Access: falseCentral Venous Catheter (CVC) Chest (Right) Arterial Sitting Heart Rate Pre-Dialysis 82 BPM Sitting H eart Rate Post-Dialysis 85 BPM Temperature Pre-Dialysis 97.5 degF Temperature Post -Dialysis 97.7 degF December 27, 2022 In-Center Hemodialysis Treatment 7232-60-57K13:30:25.000Z 5052-94-69J19:02:25.000Z BP Sitting (Pre-Dialysis) 154/98 mmHg BP Sitting (Post-Dialysis) 142/76 mmHg Concurrent Access: falseCentral Venous Catheter (CVC) Chest (Right) Arterial Sitting Heart Rate Pre-Dialysis 97 BPM Sitting H eart Rate Post-Dialysis 88 BPM Temperature Pre-Dialysis 97.7 degF Temperature Post -Dialysis 98 degF December 25, 2022 In-Center Hemodialysis Treatment 1309-57-71K67:04:45.000Z 1817-85-93J45:11:45.000Z BP Sitting (Pre-Dialysis) 140/82 mmHg BP Sitting (Post-Dialysis) 156/93 mmHg Concurrent Access: falseCentral Venous Catheter (CVC) Chest (Right) Arterial Sitting Heart Rate Pre-Dialysis 96 BPM Sitting H eart Rate Post-Dialysis 92 BPM Temperature Pre-Dialysis 97.2 degF Temperature Post -Dialysis 97.7 degF December 23, 2022 In-Center Hemodialysis Treatment 2701-88-30Q62:05:00.000Z 1185-20-04M56:02:19.000Z BP Sitting (Pre-Dialysis) 139/83 mmHg BP Sitting (Post-Dialysis) 163/96 mmHg Concurrent Access: falseCentral Venous Catheter (CVC) Chest (Right) Arterial Sitting Heart Rate Pre-Dialysis 92 BPM Sitting H eart Rate Post-Dialysis 85 BPM Temperature Pre-Dialysis 97.6 degF Temperature Post -Dialysis 97.8 degF December 20, 2022 In-Center Hemodialysis Treatment 8021-96-05P98:24:00.000Z 4625-58-07Q68:26:28.000Z BP Sitting (Pre-Dialysis) 138/92 mmHg BP Sitting (Post-Dialysis) 116/85 mmHg Concurrent Access: falseCentral Venous Catheter (CVC) Chest (Right) Arterial Sitting Heart Rate Pre-Dialysis 99 BPM Sitting H eart Rate Post-Dialysis 85 BPM Temperature Pre-Dialysis 97.4 degF Temperature Post -Dialysis 97.8 degF December 18, 2022 In-Center Hemodialysis Treatment 0857-26-00B03:39:13.000Z 5675-40-29B19:32:14.000Z BP Sitting (Pre-Dialysis) 124/75 mmHg BP Sitting (Post-Dialysis) 168/85 mmHg Concurrent Access: falseCentral Venous Catheter (CVC) Chest (Right) Arterial Sitting Heart Rate Pre-Dialysis 82 BPM Sitting H eart Rate Post-Dialysis 72 BPM Temperature Pre-Dialysis 97.8 degF Temperature Post -Dialysis 97.2 degF August 21, 2022 In-Center Hemodialysis Treatment 4489-59-07D43:36:00.000Z 4091-10-46R17:41:40.000Z BP Sitting (Pre-Dialysis) 174/95 mmHg BP Sitting (Post-Dialysis) 150/100 mmHg Concurrent Access: falseCentral Venous Catheter (CVC) Chest (Right) Arterial Sitting Heart Rate Pre-Dialysis 101 BPM Sitting H eart Rate Post-Dialysis 95 BPM Temperature Pre-Dialysis 97 degF Temperature Post -Dialysis 97 degF August 14, 2022 In-Center Hemodialysis Treatment [id number]:24:27.000Z 3499-20-36T53:26:28.000Z BP Sitting (Pre-Dialysis) 167/98 mmHg BP Sitting (Post-Dialysis) 136/81 mmHg Concurrent Access: falseCentral Venous Catheter (CVC) Chest (Right) Arterial Sitting Heart Rate Pre-Dialysis 99 BPM Sitting H eart Rate Post-Dialysis 91 BPM Temperature Pre-Dialysis 97.5 degF Temperature Post -Dialysis 98.2 degF August 07, 2022 In-Center Hemodialysis Treatment 2129-78-14O27:17:00.000Z 0244-24-15B18:20:32.000Z BP Sitting (Pre-Dialysis) 202/119 mmHg BP Sitting (Post-Dialysis) 185/105 mmHg Concurrent Access: falseCentral Venous Catheter (CVC) Chest (Right) Arterial Sitting Heart Rate Pre-Dialysis 104 BPM Sitting H eart Rate Post-Dialysis 97 BPM Temperature Pre-Dialysis 96 degF Temperature Post -Dialysis 97.5 degF August 05, 2022 In-Center Hemodialysis Treatment 5318-53-77I69:27:32.000Z 6727-08-54C60:35:32.000Z BP Sitting (Pre-Dialysis) 174/108 mmHg BP Sitting (Post-Dialysis) 164/100 mmHg Concurrent Access: falseCentral Venous Catheter (CVC) Chest (Right) Arterial Sitting Heart Rate Pre-Dialysis 96 BPM Sitting H eart Rate Post-Dialysis 76 BPM Temperature Pre-Dialysis 97.4 degF Temperature Post -Dialysis 97.4 degF July 31, 2022 In-Center Hemodialysis Treatment 400 mL/min 600 mL/min Concurrent Access: false July 29, 2022 In-Center Hemodialysis Treatment 20 23 -0 2- 14 T1 2: 30 :0 0. 00 0Z 20 23 -0 2- 14 T1 6: 31 :4 6. 00 0Z BP Sitting (Pre-Dial ysis) 175/10 9 mmHg BP Sitting (Post-Di alysis) 158/1 05 mmHg Concurrent Access: falseCentral Venous Catheter (CVC) Chest (Right) Arterial Sitting Heart Rate Pre-Dialysis 72 BPM Sitting H eart Rate Post-Dialysis 89 BPM Temperature Pre-Dialysis 97.2 degF Temperature Post -Dialysis 97.7 degF July 26, 2022 In-Center Hemodialysis Treatment [id number]:26:00.000Z 2545-97-03N29:29:18.000Z BP Sitting (Pre-Dialysis) 208/112 mmHg BP Sitting (Post-Dialysis) 160/101 mmHg Concurrent Access: falseCentral Venous Catheter (CVC) Chest (Right) Arterial Sitting Heart Rate Pre-Dialysis 94 BPM Sitting H eart Rate Post-Dialysis 99 BPM Temperature Pre-Dialysis 97.7 degF Temperature Post -Dialysis 97.7 degF July 22, 2022 In-Center Hemodialysis Treatment 1188-09-17P29:38:00.000Z 1819-66-29U41:40:10.000Z BP Sitting (Pre-Dialysis) 162/95 mmHg BP Sitting (Post-Dialysis) 146/92 mmHg Concurrent Access: falseCentral Venous Catheter (CVC) Chest (Right) Arterial Sitting Heart Rate Pre-Dialysis 96 BPM Sitting H eart Rate Post-Dialysis 90 BPM Standing Heart Rate Pre-Dialysis 96 BPM Temperat ure Post-Dialysis 97.4 degF Temperature Pre-Dialysis 97.8 degF July 17, 2022 In-Center Hemodialysis Treatment 3576-07-81G45:14:00.000Z 3920-06-98H46:20:32.000Z BP Sitting (Pre-Dialysis) 175/106 mmHg BP Sitting (Post-Dialysis) 109/65 mmHg Concurrent Access: falseCentral Venous Catheter (CVC) Chest (Right) Arterial Sitting Heart Rate Pre-Dialysis 103 BPM Sitting H eart Rate Post-Dialysis 62 BPM Temperature Pre-Dialysis 98.3 degF Temperature Post -Dialysis 97.1 degF July 15, 2022 In-Center Hemodialysis Treatment 9711-37-45F64:31:18.000Z 2337-90-26W98:31:18.000Z BP Sitting (Pre-Dialysis) 164/89 mmHg BP Sitting (Post-Dialysis) 146/85 mmHg Concurrent Access: falseCentral Venous Catheter (CVC) Chest (Right) Arterial Sitting Heart Rate Pre-Dialysis 80 BPM Sitting H eart Rate Post-Dialysis 85 BPM Temperature Pre-Dialysis 97.7 degF Temperature Post -Dialysis 97.5 degF July 10, 2022 In-Center Hemodialysis Treatment 8326-71-11J01:37:00.000Z 7202-27-82N98:44:28.000Z BP Sitting (Pre-Dialysis) 163/86 mmHg BP Sitting (Post-Dialysis) 152/96 mmHg Concurrent Access: falseCentral Venous Catheter (CVC) Chest (Right) Arterial Sitting Heart Rate Pre-Dialysis 71 BPM Sitting H eart Rate Post-Dialysis 75 BPM Temperature Pre-Dialysis 97.6 degF Temperature Post -Dialysis 97.6 degF July 08, 2022 In-Center Hemodialysis Treatment 0562-90-60H36:32:28.000Z 2778-71-42G79:31:28.000Z BP Sitting (Pre-Dialysis) 196/95 mmHg BP Sitting (Post-Dialysis) 166/93 mmHg Concurrent Access: falseCentral Venous Catheter (CVC) Chest (Right) Arterial Sitting Heart Rate Pre-Dialysis 73 BPM Sitting H eart Rate Post-Dialysis 75 BPM Temperature Pre-Dialysis 97.9 degF Temperature Post -Dialysis 98.7 degF July 05, 2022 In-Center Hemodialysis Treatment 1700-46-60U06:46:25.000Z 4538-47-35N62:31:26.000Z BP Sitting (Pre-Dialysis) 181/94 mmHg BP Sitting (Post-Dialysis) 155/99 mmHg Concurrent Access: falseCentral Venous Catheter (CVC) Chest (Right) Arterial Sitting Heart Rate Pre-Dialysis 67 BPM Sitting H eart Rate Post-Dialysis 75 BPM Temperature Pre-Dialysis 98.6 degF Temperature Post -Dialysis 98 degF July 01, 2022 In-Center Hemodialysis Treatment 4198-05-98I07:43:25.000Z 4024-67-68W21:45:26.000Z BP Sitting (Pre-Dialysis) 164/96 mmHg BP Sitting (Post-Dialysis) 147/93 mmHg Concurrent Access: falseCentral Venous Catheter (CVC) Chest (Right) Arterial Sitting Heart Rate Pre-Dialysis 64 BPM Sitting H eart Rate Post-Dialysis 70 BPM Temperature Pre-Dialysis 97.8 degF Temperature Post -Dialysis 97.8 degF June 28, 2022 In-Center Hemodialysis Treatment [id number]:48:32.000Z 5812-02-62Y65:42:32.000Z BP Sitting (Pre-Dialysis) 178/99 mmHg BP Sitting (Post-Dialysis) 154/92 mmHg Concurrent Access: falseCentral Venous Catheter (CVC) Chest (Right) Arterial Sitting Heart Rate Pre-Dialysis 68 BPM Sitting H eart Rate Post-Dialysis 76 BPM Temperature Pre-Dialysis 97.5 degF Temperature Post -Dialysis 97.4 degF June 26, 2022 In-Center Hemodialysis Treatment [id number]:25:00.000Z 1620-25-10A24:33:32.000Z BP Sitting (Pre-Dialysis) 197/107 mmHg BP Sitting (Post-Dialysis) 160/98 mmHg Concurrent Access: falseCentral Venous Catheter (CVC) Chest (Right) Arterial Sitting Heart Rate Pre-Dialysis 71 BPM BP Standing (Post-Dialysis) 162/97 mmHg Temperature Pre-Dialysis 97.7 degF Sitting Heart Ra te Post-Dialysis 70 BPM Standing Heart Rate Post-Paola lysis 71 BPM Temperature Post-Dialysis 97 .8 degF June 24, 2022 In-Center Hemodialysis Treatment 400 mL/min 600 mL/min Concurrent Access: false June 19, 2022 In-Center Hemodialysis Treatment 20 23 -0 1- 05 T1 2: 32 :0 0. 00 0Z 20 23 -0 1- 05 T1 6: 38 :1 2. 00 0Z BP Sitting (Pre-Dial ysis) 144/82 mmHg BP Sitting (Post-Paola lysis) 152/9 3 mmHg Concurrent Access: falseCentral Venous Catheter (CVC) Chest (Right) Arterial Sitting Heart Rate Pre-Dialysis 67 BPM Sitting H eart Rate Post-Dialysis 71 BPM Temperature Pre-Dialysis 97.8 degF Temperature Post -Dialysis 97.8 degF June 17, 2022 In-Center Hemodialysis Treatment 0594-70-90S99:57:12.000Z 5585-30-35Z69:01:12.000Z BP Sitting (Pre-Dialysis) 173/90 mmHg BP Sitting (Post-Dialysis) 162/98 mmHg Concurrent Access: falseCentral Venous Catheter (CVC) Chest (Right) Arterial Sitting Heart Rate Pre-Dialysis 70 BPM BP Standing (Post-Dialysis) 154/78 mmHg Temperature Pre-Dialysis 97.8 degF Sitting Heart Ra te Post-Dialysis 66 BPM Standing Heart Rate Post-Paola lysis 90 BPM Temperature Post-Dialysis 98 degF June 14, 2022 In-Center Hemodialysis Treatment 3894-73-73F93:41:00.000Z 6627-83-16F66:44:44.000Z BP Sitting (Pre-Dialysis) 153/87 mmHg BP Sitting (Post-Dialysis) 124/78 mmHg Concurrent Access: falseCentral Venous Catheter (CVC) Chest (Right) Arterial Sitting Heart Rate Pre-Dialysis 77 BPM Sitting H eart Rate Post-Dialysis 75 BPM Temperature Pre-Dialysis 97.9 degF June 03, 2022 In-Center Hemodialysis Treatment 1015-42-05E32:17:00.000Z 2041-66-23U07:21:09.000Z BP Sitting (Pre-Dialysis) 148/77 mmHg BP Sitting (Post-Dialysis) 113/67 mmHg Concurrent Access: falseCentral Venous Catheter (CVC) Chest (Right) Arterial Sitting Heart Rate Pre-Dialysis 68 BPM Sitting H eart Rate Post-Dialysis 73 BPM Temperature Pre-Dialysis 97.8 degF Temperature Post -Dialysis 98 degF May 31, 2022 In-Center Hemodialysis Treatment 9828-04-66H37:38:00.000Z 3800-26-25Q24:34:12.000Z BP Sitting (Pre-Dialysis) 172/91 mmHg BP Sitting (Post-Dialysis) 112/70 mmHg Concurrent Access: falseCentral Venous Catheter (CVC) Chest (Right) Arterial Sitting Heart Rate Pre-Dialysis 64 BPM Sitting H eart Rate Post-Dialysis 65 BPM Temperature Pre-Dialysis 97.3 degF Temperature Post -Dialysis 98.7 degF May 27, 2022 In-Center Hemodialysis Treatment [id number]:50:00.000Z 6896-45-09U58:48:12.000Z BP Sitting (Pre-Dialysis) 145/86 mmHg BP Sitting (Post-Dialysis) 140/79 mmHg Concurrent Access: falseCentral Venous Catheter (CVC) Chest (Right) Arterial Sitting Heart Rate Pre-Dialysis 76 BPM Sitting H eart Rate Post-Dialysis 73 BPM Temperature Pre-Dialysis 97.9 degF Temperature Post -Dialysis 98.8 degF May 24, 2022 In-Center Hemodialysis Treatment [id number]:21:51.000Z 6536-51-12T25:46:51.000Z BP Sitting (Pre-Dialysis) 125/74 mmHg BP Sitting (Post-Dialysis) 125/81 mmHg Concurrent Access: falseCentral Venous Catheter (CVC) Chest (Right) Arterial Sitting Heart Rate Pre-Dialysis 77 BPM Sitting H eart Rate Post-Dialysis 71 BPM Temperature Pre-Dialysis 98.3 degF Temperature Post -Dialysis 97.8 degF May 22, 2022 In-Center Hemodialysis Treatment [id number]:59:22.000Z 6868-75-41T98:02:22.000Z BP Sitting (Pre-Dialysis) 128/92 mmHg BP Sitting (Post-Dialysis) 119/92 mmHg Concurrent Access: falseCentral Venous Catheter (CVC) Chest (Right) Arterial Sitting Heart Rate Pre-Dialysis 86 BPM Sitting H eart Rate Post-Dialysis 75 BPM Temperature Pre-Dialysis 97.5 degF Temperature Post -Dialysis 97.7 degF DIALYSIS ORDER Dialysis Procedure Orders Type of Dialysis Procedure Order Order Date/Time Observations In-Center Hemodialysis Treatment January 27, 2025 Target Weight 125 kg Dialysate Flow Rate 800 mL/min Blood Flow Rate 500 mL/min Treatment Time 240 min(total) Max UF Rate 13 mL/kg/hr Base Sodium Dialysate Base Sodium 138 mE q/L dialysate_temp 36 C BiCarb Dialysate BiCarbonate 35 meq/L Access Concurrent No Arterial Access AV Fistula (Forearm (Left)) Venous Access AV Fistula (Forearm (Left)) Arterial Needle Display NIPRO, TULIP, 15 G x 1, SHARP , TWIN Venous Needle NIPRO, TULIP, 15G x 1, SHARP , TWIN Dialyzer Nipro Elisio 17H 145 5 [email or web address] Dialysate Bath Potassium Potassium 3 mEq /L Dialysate Bath Calcium Calcium 2.5 mEq/L [facility] Target Weight 125 kg Dialysate Flow Rate 800 mL/min Blood Flow Rate 500 mL/min Treatment Time 210 min(total) Max UF Rate 13 mL/kg/hr Base Sodium Dialysate Base Sodium 138 mE q/L dialysate_temp 36 C BiCarb Dialysate BiCarbonate 35 meq/L Access Concurrent No Arterial Access AV Fistula (Forearm (Left)) Venous Access AV Fistula (Forearm (Left)) Arterial Needle Display NIPRO, TULIP, 15 G x 1, SHARP , TWIN Venous Needle NIPRO, TULIP, 15G x 1, SHARP , TWIN Dialyzer Nipro Elisio 17H 145 5 [email or web address] Dialysate Bath Potassium Potassium 3 mEq /L Dialysate Bath Calcium Calcium 2.5 mEq/L Results Adequacy Description Draw Date Result/Unit Status Ref Range Result Comments stdKt/V (DIAL) 2025-02-17 15:57:10 N/A F eKt/V 2025-02-17 15:57:10 1.19 F WEIGHT (KG) 2025-02-17 15:57:10 125 kg F Residual kt/v 2025-02-17 15:57:10 F Unable to calculate: Post BUN lab result is unknown KT/V PRESCRIBED 2025-02-17 15:57:10 1.7 F TOTAL HOURS/WEEK DIALYSIS 2025-02-17 15:57:10 8 hrs F WEIGHT - POST DAY 1 2025-02-17 15:57:10 133.4 kg F WEIGHT - PRE DAY 1 2025-02-17 15:57:10 138 kg F Total Kt/V 2025-02-17 15:57:10 1.37 F nPCR 2025-02-17 15:57:10 0.73 G/KG/D F PRESCRIBED DAYS/WEEK 2025-02-17 15:57:10 3 Day/Wk F Dialyzer DB 2025-02-17 15:57:10 1455 Calc F CURRENT KRU 2025-02-17 15:57:10 F Unable to calculate: Post BUN lab result is unknown stdKT/V Total 2025-02-17 15:57:10 N/A F TBW (Wolff) 2025-02-17 15:57:10 62.26 Liters F DIALYZER FLOW-QD 2025-02-17 15:57:10 800 mL/min F VM (KT/V MEAN VOL) 2025-02-17 15:57:10 54.9 F PATIENT AGE 2025-02-17 15:57:10 54 Years F HEIGHT IN INCHES 2025-02-17 15:57:10 73 Inches F spKt/V 2025-02-17 15:57:10 1.37 F BSA STARR 2025-02-17 15:57:10 2.47 sq m F BLOOD FLOW-QWB 2025-02-17 15:57:10 500 F VT (KT/V TX VOL) 2025-02-17 15:57:10 60.2 L F AMPUTATE FACTOR 2025-02-17 15:57:10 0 F URR% 2025-02-17 15:57:10 69 % F LENGTH OF DIALYSIS 2025-02-17 15:57:10 241 min F Std Renal KT/V 2025-02-17 15:57:10 N/A F Urea nitrogen [Mass/volume] in Serum or Plasma --post dialysis 2025-02-17 15:55:20 22 mg/dL F 9.0-23.0 Urea nitrogen [Mass/volume] in Serum or Plasma 2025-02-17 13:23:16 72 mg/dL F 9.0-23.0 Creatinine [Mass/volume] in Serum or Plasma 2025-01-31 16:14:12 11.67 mg/dL F 0.7-1.3 DIALYZER FLOW-QD 2025-01-18 00:57:33 800 mL/min F KT/V PRESCRIBED 2025-01-18 00:57:33 1.49 F BLOOD FLOW-QWB 2025-01-18 00:57:33 500 F stdKT/V Total 2025-01-18 00:57:33 N/A F Std Renal KT/V 2025-01-18 00:57:33 N/A F WEIGHT (KG) 2025-01-18 00:57:33 125 kg F Total Kt/V 2025-01-18 00:57:33 1.35 F eKt/V 2025-01-18 00:57:33 1.15 F WEIGHT - PRE DAY 1 2025-01-18 00:57:33 138.3 kg F VM (KT/V MEAN VOL) 2025-01-18 00:57:33 53.1 F PRESCRIBED DAYS/WEEK 2025-01-18 00:57:33 3 Day/Wk F AMPUTATE FACTOR 2025-01-18 00:57:33 0 F Residual kt/v 2025-01-18 00:57:33 F spKt/V 2025-01-18 00:57:33 1.35 F URR% 2025-01-18 00:57:33 67 % F PATIENT AGE 2025-01-18 00:57:33 54 Years F CURRENT KRU 2025-01-18 00:57:33 F BSA STARR 2025-01-18 00:57:33 2.47 sq m F TOTAL HOURS/WEEK DIALYSIS 2025-01-18 00:57:33 10 hrs F Dialyzer DB 2025-01-18 00:57:33 1455 Calc F TBW (Wolff) 2025-01-18 00:57:33 61.99 Liters F WEIGHT - POST DAY 1 2025-01-18 00:57:33 132.6 kg F VT (KT/V TX VOL) 2025-01-18 00:57:33 53.7 L F stdKt/V (DIAL) 2025-01-18 00:57:33 N/A F nPCR 2025-01-18 00:57:33 0.83 G/KG/D F HEIGHT IN INCHES 2025-01-18 00:57:33 73 Inches F LENGTH OF DIALYSIS 2025-01-18 00:57:33 211 min F Urea nitrogen [Mass/volume] in Serum or Plasma 2025-01-18 00:45:21 51 mg/dL F 9.0-23.0 Urea nitrogen [Mass/volume] in Serum or Plasma --post dialysis 2025-01-17 22:38:26 17 mg/dL F 9.0-23.0 Creatinine [Mass/volume] in Serum or Plasma 2025-01-04 18:40:11 8.39 mg/dL F 0.7-1.3 Std Renal KT/V 2024-12-20 23:07:38 N/A F stdKT/V Total 2024-12-20 23:07:38 N/A F Dialyzer DB 2024-12-20 23:07:38 1455 Calc F WEIGHT - POST DAY 1 2024-12-20 23:07:38 132.9 kg F Residual kt/v 2024-12-20 23:07:38 F Unable to calculate: Post BUN lab result is unknown nPCR 2024-12-20 23:07:38 0.9 G/KG/D F WEIGHT (KG) 2024-12-20 23:07:38 125 kg F VT (KT/V TX VOL) 2024-12-20 23:07:38 53.4 L F WEIGHT - PRE DAY 1 2024-12-20 23:07:38 137.5 kg F BSA STARR 2024-12-20 23:07:38 2.47 sq m F KT/V PRESCRIBED 2024-12-20 23:07:38 1.47 F PATIENT AGE 2024-12-20 23:07:38 54 Years F eKt/V 2024-12-20 23:07:38 1.14 F TOTAL HOURS/WEEK DIALYSIS 2024-12-20 23:07:38 10 hrs F DIALYZER FLOW-QD 2024-12-20 23:07:38 800 mL/min F AMPUTATE FACTOR 2024-12-20 23:07:38 0 F PRESCRIBED DAYS/WEEK 2024-12-20 23:07:38 3 Day/Wk F CURRENT KRU 2024-12-20 23:07:38 F Unable to calculate: Post BUN lab result is unknown HEIGHT IN INCHES 2024-12-20 23:07:38 73 Inches F stdKt/V (DIAL) 2024-12-20 23:07:38 N/A F BLOOD FLOW-QWB 2024-12-20 23:07:38 500 F spKt/V 2024-12-20 23:07:38 1.33 F TBW (Wolff) 2024-12-20 23:07:38 62.09 Liters F URR% 2024-12-20 23:07:38 67 % F Total Kt/V 2024-12-20 23:07:38 1.33 F LENGTH OF DIALYSIS 2024-12-20 23:07:38 208 min F VM (KT/V MEAN VOL) 2024-12-20 23:07:38 52.9 F AMPUTATE FACTOR 2024-12-20 23:07:38 0 F LENGTH OF DIALYSIS 2024-12-20 23:07:38 208 min F eKt/V 2024-12-20 23:07:38 1.14 F BSA STARR 2024-12-20 23:07:38 2.47 sq m F BLOOD FLOW-QWB 2024-12-20 23:07:38 500 F spKt/V 2024-12-20 23:07:38 1.33 F KT/V PRESCRIBED 2024-12-20 23:07:38 1.47 F PATIENT AGE 2024-12-20 23:07:38 54 Years F PRESCRIBED DAYS/WEEK 2024-12-20 23:07:38 3 Day/Wk F WEIGHT - POST DAY 1 2024-12-20 23:07:38 132.9 kg F VT (KT/V TX VOL) 2024-12-20 23:07:38 53.4 L F stdKt/V (DIAL) 2024-12-20 23:07:38 N/A F Std Renal KT/V 2024-12-20 23:07:38 N/A F HEIGHT IN INCHES 2024-12-20 23:07:38 73 Inches F Residual kt/v 2024-12-20 23:07:38 F Unable to calculate: Post BUN lab result is unknown CURRENT KRU 2024-12-20 23:07:38 F Unable to calculate: Post BUN lab result is unknown VM (KT/V MEAN VOL) 2024-12-20 23:07:38 52.9 F WEIGHT (KG) 2024-12-20 23:07:38 125 kg F nPCR 2024-12-20 23:07:38 0.9 G/KG/D F TBW ([facility]ff) 2024-12-20 23:07:38 62.09 Liters F Total Kt/V 2024-12-20 23:07:38 1.33 F TOTAL HOURS/WEEK DIALYSIS 2024-12-20 23:07:38 10 hrs F DIALYZER FLOW-QD 2024-12-20 23:07:38 800 mL/min F Dialyzer DB 2024-12-20 23:07:38 1455 Calc F stdKT/V Total 2024-12-20 23:07:38 N/A F URR% 2024-12-20 23:07:38 67 % F WEIGHT - PRE DAY 1 2024-12-20 23:07:38 137.5 kg F Urea nitrogen [Mass/volume] in Serum or Plasma --post dialysis 2024-12-20 23:05:20 19 mg/dL F 9.0-23.0 Urea nitrogen [Mass/volume] in Serum or Plasma --post dialysis 2024-12-20 23:05:20 19 mg/dL F 9.0-23.0 Urea nitrogen [Mass/volume] in Serum or Plasma 2024-12-20 21:37:19 58 mg/dL F 9.0-23.0 Urea nitrogen [Mass/volume] in Serum or Plasma 2024-12-20 21:37:19 58 mg/dL F 9.0-23.0 Creatinine [Mass/volume] in Serum or Plasma 2024-11-29 21:05:16 6.75 mg/dL F 0.7-1.3 Creatinine [Mass/volume] in Serum or Plasma 2024-11-29 21:05:16 6.75 mg/dL F 0.7-1.3 URR% 2024-11-15 19:31:37 67 % F DIALYZER FLOW-QD 2024-11-15 19:31:37 800 mL/min F Dialyzer DB 2024-11-15 19:31:37 1455 Calc F LENGTH OF DIALYSIS 2024-11-15 19:31:37 199 min F BSA STARR 2024-11-15 19:31:37 2.47 sq m F PATIENT AGE 2024-11-15 19:31:37 53 Years F WEIGHT - POST DAY 1 2024-11-15 19:31:37 133.7 kg F WEIGHT - PRE DAY 1 2024-11-15 19:31:37 138.2 kg F HEIGHT IN INCHES 2024-11-15 19:31:37 73 Inches F WEIGHT (KG) 2024-11-15 19:31:37 125 kg F VT (KT/V TX VOL) 2024-11-15 19:31:37 51.1 L F VM (KT/V MEAN VOL) 2024-11-15 19:31:37 52.7 F Residual kt/v 2024-11-15 19:31:37 F Unable to calculate: Post BUN lab result is unknown PRESCRIBED DAYS/WEEK 2024-11-15 19:31:37 3 Day/Wk F KT/V PRESCRIBED 2024-11-15 19:31:37 1.4 F Total Kt/V 2024-11-15 19:31:37 1.33 F nPCR 2024-11-15 19:31:37 0.92 G/KG/D F AMPUTATE FACTOR 2024-11-15 19:31:37 0 F TBW (Wolff) 2024-11-15 19:31:37 62.46 Liters F eKt/V 2024-11-15 19:31:37 1.13 F spKt/V 2024-11-15 19:31:37 1.33 F stdKt/V (DIAL) 2024-11-15 19:31:37 N/A F Std Renal KT/V 2024-11-15 19:31:37 N/A F stdKT/V Total 2024-11-15 19:31:37 N/A F TOTAL HOURS/WEEK DIALYSIS 2024-11-15 19:31:37 10 hrs F BLOOD FLOW-QWB 2024-11-15 19:31:37 500 F CURRENT KRU 2024-11-15 19:31:37 F Unable to calculate: Post BUN lab result is unknown URR% 2024-11-15 19:31:37 67 % F WEIGHT (KG) 2024-11-15 19:31:37 125 kg F DIALYZER FLOW-QD 2024-11-15 19:31:37 800 mL/min F stdKt/V (DIAL) 2024-11-15 19:31:37 N/A F WEIGHT - POST DAY 1 2024-11-15 19:31:37 133.7 kg F KT/V PRESCRIBED 2024-11-15 19:31:37 1.4 F HEIGHT IN INCHES 2024-11-15 19:31:37 73 Inches F LENGTH OF DIALYSIS 2024-11-15 19:31:37 199 min F VM (KT/V MEAN VOL) 2024-11-15 19:31:37 52.7 F AMPUTATE FACTOR 2024-11-15 19:31:37 0 F TOTAL HOURS/WEEK DIALYSIS 2024-11-15 19:31:37 10 hrs F stdKT/V Total 2024-11-15 19:31:37 N/A F BLOOD FLOW-QWB 2024-11-15 19:31:37 500 F nPCR 2024-11-15 19:31:37 0.92 G/KG/D F Dialyzer DB 2024-11-15 19:31:37 1455 Calc F TBW (Wolff) 2024-11-15 19:31:37 62.46 Liters F Std Renal KT/V 2024-11-15 19:31:37 N/A F Total Kt/V 2024-11-15 19:31:37 1.33 F WEIGHT - PRE DAY 1 2024-11-15 19:31:37 138.2 kg F VT (KT/V TX VOL) 2024-11-15 19:31:37 51.1 L F spKt/V 2024-11-15 19:31:37 1.33 F Residual kt/v 2024-11-15 19:31:37 F Unable to calculate: Post BUN lab result is unknown PATIENT AGE 2024-11-15 19:31:37 53 Years F BSA STARR 2024-11-15 19:31:37 2.47 sq m F CURRENT KRU 2024-11-15 19:31:37 F Unable to calculate: Post BUN lab result is unknown PRESCRIBED DAYS/WEEK 2024-11-15 19:31:37 3 Day/Wk F eKt/V 2024-11-15 19:31:37 1.13 F Urea nitrogen [Mass/volume] in Serum or Plasma --post dialysis 2024-11-15 19:29:19 16 mg/dL F 9.0-23.0 Urea nitrogen [Mass/volume] in Serum or Plasma --post dialysis 2024-11-15 19:29:19 16 mg/dL F 9.0-23.0 Urea nitrogen [Mass/volume] in Serum or Plasma 2024-11-15 18:36:14 48 mg/dL F 9.0-23.0 Urea nitrogen [Mass/volume] in Serum or Plasma 2024-11-15 18:36:14 48 mg/dL F 9.0-23.0 KT/V PRESCRIBED 2024-10-18 20:07:09 1.6 F TBW (Wolff) 2024-10-18 20:07:09 61.38 Liters F TOTAL HOURS/WEEK DIALYSIS 2024-10-18 20:07:09 10 hrs F LENGTH OF DIALYSIS 2024-10-18 20:07:09 227 min F WEIGHT - PRE DAY 1 2024-10-18 20:07:09 135 kg F WEIGHT - POST DAY 1 2024-10-18 20:07:09 130.5 kg F Std Renal KT/V 2024-10-18 20:07:09 N/A F stdKt/V (DIAL) 2024-10-18 20:07:09 N/A F WEIGHT (KG) 2024-10-18 20:07:09 125 kg F HEIGHT IN INCHES 2024-10-18 20:07:09 73 Inches F PATIENT AGE 2024-10-18 20:07:09 53 Years F eKt/V 2024-10-18 20:07:09 1.14 F CURRENT KRU 2024-10-18 20:07:09 F Residual kt/v 2024-10-18 20:07:09 F AMPUTATE FACTOR 2024-10-18 20:07:09 0 F Dialyzer DB 2024-10-18 20:07:09 1455 Calc F BLOOD FLOW-QWB 2024-10-18 20:07:09 408 F VM (KT/V MEAN VOL) 2024-10-18 20:07:09 53.3 F stdKT/V Total 2024-10-18 20:07:09 N/A F VT (KT/V TX VOL) 2024-10-18 20:07:09 52.6 L F PRESCRIBED DAYS/WEEK 2024-10-18 20:07:09 3 Day/Wk F BSA STARR 2024-10-18 20:07:09 2.47 sq m F spKt/V 2024-10-18 20:07:09 1.32 F Total Kt/V 2024-10-18 20:07:09 1.32 F nPCR 2024-10-18 20:07:09 1.01 G/KG/D F DIALYZER FLOW-QD 2024-10-18 20:07:09 800 mL/min F URR% 2024-10-18 20:07:09 66 % F TOTAL HOURS/WEEK DIALYSIS 2024-10-18 20:07:09 10 hrs F PRESCRIBED DAYS/WEEK 2024-10-18 20:07:09 3 Day/Wk F TBW (Wolff) 2024-10-18 20:07:09 61.38 Liters F BSA STARR 2024-10-18 20:07:09 2.47 sq m F Std Renal KT/V 2024-10-18 20:07:09 N/A F Residual kt/v 2024-10-18 20:07:09 F WEIGHT (KG) 2024-10-18 20:07:09 125 kg F HEIGHT IN INCHES 2024-10-18 20:07:09 73 Inches F URR% 2024-10-18 20:07:09 66 % F Total Kt/V 2024-10-18 20:07:09 1.32 F LENGTH OF DIALYSIS 2024-10-18 20:07:09 227 min F KT/V PRESCRIBED 2024-10-18 20:07:09 1.6 F eKt/V 2024-10-18 20:07:09 1.14 F Dialyzer DB 2024-10-18 20:07:09 1455 Calc F VT (KT/V TX VOL) 2024-10-18 20:07:09 52.6 L F stdKT/V Total 2024-10-18 20:07:09 N/A F VM (KT/V MEAN VOL) 2024-10-18 20:07:09 53.3 F BLOOD FLOW-QWB 2024-10-18 20:07:09 408 F PATIENT AGE 2024-10-18 20:07:09 53 Years F CURRENT KRU 2024-10-18 20:07:09 F WEIGHT - PRE DAY 1 2024-10-18 20:07:09 135 kg F AMPUTATE FACTOR 2024-10-18 20:07:09 0 F nPCR 2024-10-18 20:07:09 1.01 G/KG/D F WEIGHT - POST DAY 1 2024-10-18 20:07:09 130.5 kg F stdKt/V (DIAL) 2024-10-18 20:07:09 N/A F DIALYZER FLOW-QD 2024-10-18 20:07:09 800 mL/min F spKt/V 2024-10-18 20:07:09 1.32 F LENGTH OF DIALYSIS 2024-10-18 20:07:09 227 min F TBW (Wolff) 2024-10-18 20:07:09 61.38 Liters F KT/V PRESCRIBED 2024-10-18 20:07:09 1.6 F TOTAL HOURS/WEEK DIALYSIS 2024-10-18 20:07:09 10 hrs F WEIGHT - PRE DAY 1 2024-10-18 20:07:09 135 kg F Residual kt/v 2024-10-18 20:07:09 F Std Renal KT/V 2024-10-18 20:07:09 N/A F stdKT/V Total 2024-10-18 20:07:09 N/A F nPCR 2024-10-18 20:07:09 1.01 G/KG/D F BLOOD FLOW-QWB 2024-10-18 20:07:09 408 F PATIENT AGE 2024-10-18 20:07:09 53 Years F AMPUTATE FACTOR 2024-10-18 20:07:09 0 F HEIGHT IN INCHES 2024-10-18 20:07:09 73 Inches F BSA STARR 2024-10-18 20:07:09 2.47 sq m F WEIGHT (KG) 2024-10-18 20:07:09 125 kg F CURRENT KRU 2024-10-18 20:07:09 F stdKt/V (DIAL) 2024-10-18 20:07:09 N/A F WEIGHT - POST DAY 1 2024-10-18 20:07:09 130.5 kg F PRESCRIBED DAYS/WEEK 2024-10-18 20:07:09 3 Day/Wk F eKt/V 2024-10-18 20:07:09 1.14 F spKt/V 2024-10-18 20:07:09 1.32 F Dialyzer DB 2024-10-18 20:07:09 1455 Calc F VM (KT/V MEAN VOL) 2024-10-18 20:07:09 53.3 F URR% 2024-10-18 20:07:09 66 % F VT (KT/V TX VOL) 2024-10-18 20:07:09 52.6 L F Total Kt/V 2024-10-18 20:07:09 1.32 F DIALYZER FLOW-QD 2024-10-18 20:07:09 800 mL/min F KT/V PRESCRIBED 2024-10-18 20:07:09 1.6 F TOTAL HOURS/WEEK DIALYSIS 2024-10-18 20:07:09 10 hrs F LENGTH OF DIALYSIS 2024-10-18 20:07:09 227 min F TBW (Wolff) 2024-10-18 20:07:09 61.38 Liters F Dialyzer DB 2024-10-18 20:07:09 1455 Calc F PRESCRIBED DAYS/WEEK 2024-10-18 20:07:09 3 Day/Wk F VT (KT/V TX VOL) 2024-10-18 20:07:09 52.6 L F WEIGHT - PRE DAY 1 2024-10-18 20:07:09 135 kg F Residual kt/v 2024-10-18 20:07:09 F spKt/V 2024-10-18 20:07:09 1.32 F BSA STARR 2024-10-18 20:07:09 2.47 sq m F BLOOD FLOW-QWB 2024-10-18 20:07:09 408 F nPCR 2024-10-18 20:07:09 1.01 G/KG/D F AMPUTATE FACTOR 2024-10-18 20:07:09 0 F stdKt/V (DIAL) 2024-10-18 20:07:09 N/A F CURRENT KRU 2024-10-18 20:07:09 F WEIGHT - POST DAY 1 2024-10-18 20:07:09 130.5 kg F stdKT/V Total 2024-10-18 20:07:09 N/A F WEIGHT (KG) 2024-10-18 20:07:09 125 kg F PATIENT AGE 2024-10-18 20:07:09 53 Years F eKt/V 2024-10-18 20:07:09 1.14 F VM (KT/V MEAN VOL) 2024-10-18 20:07:09 53.3 F Std Renal KT/V 2024-10-18 20:07:09 N/A F Total Kt/V 2024-10-18 20:07:09 1.32 F HEIGHT IN INCHES 2024-10-18 20:07:09 73 Inches F URR% 2024-10-18 20:07:09 66 % F DIALYZER FLOW-QD 2024-10-18 20:07:09 800 mL/min F Creatinine [Mass/volume] in Serum or Plasma 2024-10-18 18:36:16 5.84 mg/dL F 0.7-1.3 Urea nitrogen [Mass/volume] in Serum or Plasma 2024-10-18 18:36:16 53 mg/dL F 9.0-23.0 Creatinine [Mass/volume] in Serum or Plasma 2024-10-18 18:36:16 5.84 mg/dL F 0.7-1.3 Urea nitrogen [Mass/volume] in Serum or Plasma 2024-10-18 18:36:16 53 mg/dL F 9.0-23.0 Creatinine [Mass/volume] in Serum or Plasma 2024-10-18 18:36:16 5.84 mg/dL F 0.7-1.3 Urea nitrogen [Mass/volume] in Serum or Plasma 2024-10-18 18:36:16 53 mg/dL F 9.0-23.0 Creatinine [Mass/volume] in Serum or Plasma 2024-10-18 18:36:16 5.84 mg/dL F 0.7-1.3 Urea nitrogen [Mass/volume] in Serum or Plasma 2024-10-18 18:36:16 53 mg/dL F 9.0-23.0 Urea nitrogen [Mass/volume] in Serum or Plasma --post dialysis 2024-10-18 14:19:20 18 mg/dL F 9.0-23.0 Urea nitrogen [Mass/volume] in Serum or Plasma --post dialysis 2024-10-18 14:19:20 18 mg/dL F 9.0-23.0 Urea nitrogen [Mass/volume] in Serum or Plasma --post dialysis 2024-10-18 14:19:20 18 mg/dL F 9.0-23.0 Urea nitrogen [Mass/volume] in Serum or Plasma --post dialysis 2024-10-18 14:19:20 18 mg/dL F 9.0-23.0 Std Renal KT/V 2024-09-20 14:27:59 N/A F CURRENT KRU 2024-09-20 14:27:59 F WEIGHT (KG) 2024-09-20 14:27:59 125 kg F PATIENT AGE 2024-09-20 14:27:59 53 Years F TOTAL HOURS/WEEK DIALYSIS 2024-09-20 14:27:59 10 hrs F AMPUTATE FACTOR 2024-09-20 14:27:59 0 F KT/V PRESCRIBED 2024-09-20 14:27:59 1.49 F Dialyzer DB 2024-09-20 14:27:59 1455 Calc F BLOOD FLOW-QWB 2024-09-20 14:27:59 478 F TBW (Wolff) 2024-09-20 14:27:59 60.98 Liters F stdKT/V Total 2024-09-20 14:27:59 N/A F VT (KT/V TX VOL) 2024-09-20 14:27:59 52.8 L F spKt/V 2024-09-20 14:27:59 1.34 F HEIGHT IN INCHES 2024-09-20 14:27:59 73 Inches F Residual kt/v 2024-09-20 14:27:59 F Total Kt/V 2024-09-20 14:27:59 1.34 F nPCR 2024-09-20 14:27:59 0.75 G/KG/D F WEIGHT - POST DAY 1 2024-09-20 14:27:59 129.3 kg F URR% 2024-09-20 14:27:59 67 % F eKt/V 2024-09-20 14:27:59 1.15 F PRESCRIBED DAYS/WEEK 2024-09-20 14:27:59 3 Day/Wk F BSA STARR 2024-09-20 14:27:59 2.47 sq m F LENGTH OF DIALYSIS 2024-09-20 14:27:59 212 min F DIALYZER FLOW-QD 2024-09-20 14:27:59 800 mL/min F VM (KT/V MEAN VOL) 2024-09-20 14:27:59 53.6 F stdKt/V (DIAL) 2024-09-20 14:27:59 N/A F WEIGHT - PRE DAY 1 2024-09-20 14:27:59 134.8 kg F Std Renal KT/V 2024-09-20 14:27:59 N/A F CURRENT KRU 2024-09-20 14:27:59 F stdKT/V Total 2024-09-20 14:27:59 N/A F BLOOD FLOW-QWB 2024-09-20 14:27:59 478 F TBW (Wolff) 2024-09-20 14:27:59 60.98 Liters F BSA STARR 2024-09-20 14:27:59 2.47 sq m F URR% 2024-09-20 14:27:59 67 % F eKt/V 2024-09-20 14:27:59 1.15 F spKt/V 2024-09-20 14:27:59 1.34 F TOTAL HOURS/WEEK DIALYSIS 2024-09-20 14:27:59 10 hrs F HEIGHT IN INCHES 2024-09-20 14:27:59 73 Inches F Residual kt/v 2024-09-20 14:27:59 F PATIENT AGE 2024-09-20 14:27:59 53 Years F KT/V PRESCRIBED 2024-09-20 14:27:59 1.49 F WEIGHT (KG) 2024-09-20 14:27:59 125 kg F VT (KT/V TX VOL) 2024-09-20 14:27:59 52.8 L F PRESCRIBED DAYS/WEEK 2024-09-20 14:27:59 3 Day/Wk F AMPUTATE FACTOR 2024-09-20 14:27:59 0 F Total Kt/V 2024-09-20 14:27:59 1.34 F LENGTH OF DIALYSIS 2024-09-20 14:27:59 212 min F WEIGHT - PRE DAY 1 2024-09-20 14:27:59 134.8 kg F stdKt/V (DIAL) 2024-09-20 14:27:59 N/A F VM (KT/V MEAN VOL) 2024-09-20 14:27:59 53.6 F nPCR 2024-09-20 14:27:59 0.75 G/KG/D F Dialyzer DB 2024-09-20 14:27:59 1455 Calc F DIALYZER FLOW-QD 2024-09-20 14:27:59 800 mL/min F WEIGHT - POST DAY 1 2024-09-20 14:27:59 129.3 kg F Std Renal KT/V 2024-09-20 14:27:59 N/A F CURRENT KRU 2024-09-20 14:27:59 F stdKT/V Total 2024-09-20 14:27:59 N/A F BSA STARR 2024-09-20 14:27:59 2.47 sq m F BLOOD FLOW-QWB 2024-09-20 14:27:59 478 F VT (KT/V TX VOL) 2024-09-20 14:27:59 52.8 L F PRESCRIBED DAYS/WEEK 2024-09-20 14:27:59 3 Day/Wk F TOTAL HOURS/WEEK DIALYSIS 2024-09-20 14:27:59 10 hrs F KT/V PRESCRIBED 2024-09-20 14:27:59 1.49 F URR% 2024-09-20 14:27:59 67 % F WEIGHT (KG) 2024-09-20 14:27:59 125 kg F eKt/V 2024-09-20 14:27:59 1.15 F spKt/V 2024-09-20 14:27:59 1.34 F Residual kt/v 2024-09-20 14:27:59 F PATIENT AGE 2024-09-20 14:27:59 53 Years F HEIGHT IN INCHES 2024-09-20 14:27:59 73 Inches F TBW (Wolff) 2024-09-20 14:27:59 60.98 Liters F Total Kt/V 2024-09-20 14:27:59 1.34 F stdKt/V (DIAL) 2024-09-20 14:27:59 N/A F WEIGHT - POST DAY 1 2024-09-20 14:27:59 129.3 kg F nPCR 2024-09-20 14:27:59 0.75 G/KG/D F VM (KT/V MEAN VOL) 2024-09-20 14:27:59 53.6 F DIALYZER FLOW-QD 2024-09-20 14:27:59 800 mL/min F Dialyzer DB 2024-09-20 14:27:59 1455 Calc F WEIGHT - PRE DAY 1 2024-09-20 14:27:59 134.8 kg F LENGTH OF DIALYSIS 2024-09-20 14:27:59 212 min F AMPUTATE FACTOR 2024-09-20 14:27:59 0 F Urea nitrogen [Mass/volume] in Serum or Plasma --post dialysis 2024-09-20 14:26:13 15 mg/dL F 9.0-23.0 Urea nitrogen [Mass/volume] in Serum or Plasma --post dialysis 2024-09-20 14:26:13 15 mg/dL F 9.0-23.0 Urea nitrogen [Mass/volume] in Serum or Plasma --post dialysis 2024-09-20 14:26:13 15 mg/dL F 9.0-23.0 Urea nitrogen [Mass/volume] in Serum or Plasma 2024-09-20 14:18:16 45 mg/dL F 9.0-23.0 Urea nitrogen [Mass/volume] in Serum or Plasma 2024-09-20 14:18:16 45 mg/dL F 9.0-23.0 Urea nitrogen [Mass/volume] in Serum or Plasma 2024-09-20 14:18:16 45 mg/dL F 9.0-23.0 Creatinine [Mass/volume] in Serum or Plasma 2024-08-30 13:31:22 6.19 mg/dL F 0.7-1.3 KT/V PRESCRIBED 2024-08-17 04:50:14 1.53 F Residual kt/v 2024-08-17 04:50:14 F WEIGHT - PRE DAY 1 2024-08-17 04:50:14 133.6 kg F HEIGHT IN INCHES 2024-08-17 04:50:14 73 Inches F BLOOD FLOW-QWB 2024-08-17 04:50:14 500 F PRESCRIBED DAYS/WEEK 2024-08-17 04:50:14 3 Day/Wk F LENGTH OF DIALYSIS 2024-08-17 04:50:14 209 min F Std Renal KT/V 2024-08-17 04:50:14 N/A F spKt/V 2024-08-17 04:50:14 1.28 F AMPUTATE FACTOR 2024-08-17 04:50:14 0 F eKt/V 2024-08-17 04:50:14 1.09 F Dialyzer DB 2024-08-17 04:50:14 1455 Calc F TOTAL HOURS/WEEK DIALYSIS 2024-08-17 04:50:14 9 hrs F CURRENT KRU 2024-08-17 04:50:14 F VT (KT/V TX VOL) 2024-08-17 04:50:14 55.9 L F BSA STARR 2024-08-17 04:50:14 2.41 sq m F TBW (Wolff) 2024-08-17 04:50:14 60.88 Liters F VM (KT/V MEAN VOL) 2024-08-17 04:50:14 53.9 F nPCR 2024-08-17 04:50:14 0.68 G/KG/D F PATIENT AGE 2024-08-17 04:50:14 53 Years F WEIGHT - POST DAY 1 2024-08-17 04:50:14 129 kg F stdKT/V Total 2024-08-17 04:50:14 N/A F DIALYZER FLOW-QD 2024-08-17 04:50:14 800 mL/min F WEIGHT (KG) 2024-08-17 04:50:14 118 kg F stdKt/V (DIAL) 2024-08-17 04:50:14 N/A F URR% 2024-08-17 04:50:14 66 % F Total Kt/V 2024-08-17 04:50:14 1.28 F Urea nitrogen [Mass/volume] in Serum or Plasma 2024-08-17 04:48:16 41 mg/dL F 9.0-23.0 Urea nitrogen [Mass/volume] in Serum or Plasma --post dialysis 2024-08-16 14:57:24 14 mg/dL F 9.0-23.0 Creatinine [Mass/volume] in Serum or Plasma 2024-08-03 01:54:13 5.82 mg/dL F 0.7-1.3 Creatinine [Mass/volume] in Serum or Plasma 2024-07-07 14:39:21 6.04 mg/dL F 0.7-1.3 Creatinine [Mass/volume] in Serum or Plasma 2024-07-07 14:39:21 6.04 mg/dL F 0.7-1.3 Creatinine [Mass/volume] in Serum or Plasma 2024-07-07 14:39:21 6.04 mg/dL F 0.7-1.3 Creatinine [Mass/volume] in Serum or Plasma 2024-06-01 17:55:17 5.05 mg/dL F 0.7-1.3 Creatinine [Mass/volume] in Serum or Plasma 2024-06-01 17:55:17 5.05 mg/dL F 0.7-1.3 Creatinine [Mass/volume] in Serum or Plasma 2024-05-04 22:42:24 6.61 mg/dL F 0.7-1.3 Creatinine [Mass/volume] in Serum or Plasma 2024-05-04 22:42:24 6.61 mg/dL F 0.7-1.3 Creatinine [Mass/volume] in Serum or Plasma 2024-04-06 16:48:25 7.43 mg/dL F 0.7-1.3 Creatinine [Mass/volume] in Serum or Plasma 2024-03-02 [...] Plasma 2023-09-30 22:09:48 4.8 mg/dL F 0.7-1.3 BSA STARR 2023-09-09 17:36:16 2.39 sq m F PRESCRIBED DAYS/WEEK 2023-09-09 17:36:16 3 Day/Wk F Total Kt/V 2023-09-09 17:36:16 1.61 F stdKt/V (DIAL) 2023-09-09 17:36:16 N/A F WEIGHT - PRE DAY 1 2023-09-09 17:36:16 120 kg F BLOOD FLOW-QWB 2023-09-09 17:36:16 450 F stdKT/V Total 2023-09-09 17:36:16 N/A F nPCR 2023-09-09 17:36:16 0.46 G/KG/D F VM (KT/V MEAN VOL) 2023-09-09 17:36:16 46.5 F Residual kt/v 2023-09-09 17:36:16 F TOTAL HOURS/WEEK DIALYSIS 2023-09-09 17:36:16 3 hrs F WEIGHT (KG) 2023-09-09 17:36:16 116.5 kg F KT/V PRESCRIBED 2023-09-09 17:36:16 1.58 F Dialyzer DB 2023-09-09 17:36:16 1218 Calc F LENGTH OF DIALYSIS 2023-09-09 17:36:16 239 min F PATIENT AGE 2023-09-09 17:36:16 52 Years F CURRENT KRU 2023-09-09 17:36:16 F HEIGHT IN INCHES 2023-09-09 17:36:16 73 Inches F WEIGHT - POST DAY 1 2023-09-09 17:36:16 116.2 kg F VT (KT/V TX VOL) 2023-09-09 17:36:16 46.5 L F Std Renal KT/V 2023-09-09 17:36:16 N/A F DIALYZER FLOW-QD 2023-09-09 17:36:16 800 mL/min F eKt/V 2023-09-09 17:36:16 1.38 F TBW (Wolff) 2023-09-09 17:36:16 56.67 Liters F spKt/V 2023-09-09 17:36:16 1.61 F AMPUTATE FACTOR 2023-09-09 17:36:16 0 F URR% 2023-09-09 17:36:16 76 % F BSA STARR 2023-09-09 17:36:16 2.39 sq m F stdKT/V Total 2023-09-09 17:36:16 N/A F LENGTH OF DIALYSIS 2023-09-09 17:36:16 239 min F Total Kt/V 2023-09-09 17:36:16 1.61 F Residual kt/v 2023-09-09 17:36:16 F VM (KT/V MEAN VOL) 2023-09-09 17:36:16 46.5 F WEIGHT - PRE DAY 1 2023-09-09 17:36:16 120 kg F KT/V PRESCRIBED 2023-09-09 17:36:16 1.58 F stdKt/V (DIAL) 2023-09-09 17:36:16 N/A F nPCR 2023-09-09 17:36:16 0.46 G/KG/D F WEIGHT (KG) 2023-09-09 17:36:16 116.5 kg F BLOOD FLOW-QWB 2023-09-09 17:36:16 450 F PRESCRIBED DAYS/WEEK 2023-09-09 17:36:16 3 Day/Wk F VT (KT/V TX VOL) 2023-09-09 17:36:16 46.5 L F TOTAL HOURS/WEEK DIALYSIS 2023-09-09 17:36:16 3 hrs F PATIENT AGE 2023-09-09 17:36:16 52 Years F HEIGHT IN INCHES 2023-09-09 17:36:16 73 Inches F eKt/V 2023-09-09 17:36:16 1.38 F TBW (Wolff) 2023-09-09 17:36:16 56.67 Liters F spKt/V 2023-09-09 17:36:16 1.61 F Dialyzer DB 2023-09-09 17:36:16 1218 Calc F DIALYZER FLOW-QD 2023-09-09 17:36:16 800 mL/min F AMPUTATE FACTOR 2023-09-09 17:36:16 0 F WEIGHT - POST DAY 1 2023-09-09 17:36:16 116.2 kg F CURRENT KRU 2023-09-09 17:36:16 F Std Renal KT/V 2023-09-09 17:36:16 N/A F URR% 2023-09-09 17:36:16 76 % F Creatinine [Mass/volume] in Serum or Plasma [...] Plasma 2023-04-24 23:09:39 5.48 mg/dL F 0.7-1.3 Creatinine [Mass/volume] in Serum or Plasma 2023-04-24 23:09:39 5.48 mg/dL F 0.7-1.3 nPCR 2023-03-27 16:18:51 F Unable to calculate: Post BUN lab result is unknown WEIGHT - PRE DAY 1 2023-03-27 16:18:51 153.3 kg F PATIENT AGE 2023-03-27 16:18:51 52 Years F PRESCRIBED DAYS/WEEK 2023-03-27 16:18:51 3 Day/Wk F Total Kt/V 2023-03-27 16:18:51 F Unable to calculate: Post BUN lab result is unknown Dialyzer DB 2023-03-27 16:18:51 1474 Calc F CURRENT KRU 2023-03-27 16:18:51 F Unable to calculate: Post BUN lab result is unknown Std Renal KT/V 2023-03-27 16:18:51 F Unable to calculate: Post BUN lab result is unknown VM (KT/V MEAN VOL) 2023-03-27 16:18:51 F Unable to calculate: Post BUN lab result is unknown WEIGHT - POST DAY 1 2023-03-27 16:18:51 148.7 kg F TOTAL HOURS/WEEK DIALYSIS 2023-03-27 16:18:51 12 hrs F KT/V PRESCRIBED 2023-03-27 16:18:51 F Unable to calculate: Post BUN lab result is unknown HEIGHT IN INCHES 2023-03-27 16:18:51 73 Inches F BSA STARR 2023-03-27 16:18:51 F Unable to calculate: Post BUN lab result is unknown eKt/V 2023-03-27 16:18:51 F Unable to calculate: Post BUN lab result is unknown TBW ([facility]) 2023-03-27 16:18:51 F Unable to calculate: Post BUN lab result is unknown WEIGHT (KG) 2023-03-27 16:18:51 147 kg F VT (KT/V TX VOL) 2023-03-27 16:18:51 F Unable to calculate: Post BUN lab result is unknown URR% 2023-03-27 16:18:51 F Unable to calculate: Post BUN lab result is unknown stdKt/V (DIAL) 2023-03-27 16:18:51 F Unable to calculate: Post BUN lab result is unknown BLOOD FLOW-QWB 2023-03-27 16:18:51 400 F Residual kt/v 2023-03-27 16:18:51 F Unable to calculate: Post BUN lab result is unknown DIALYZER FLOW-QD 2023-03-27 16:18:51 727 mL/min F stdKT/V Total 2023-03-27 16:18:51 N/A F LENGTH OF DIALYSIS 2023-03-27 16:18:51 233 min F spKt/V 2023-03-27 16:18:51 F Unable to calculate: Post BUN lab result is unknown AMPUTATE FACTOR 2023-03-27 16:18:51 0 F nPCR 2023-03-27 16:18:51 F Unable to calculate: Post BUN lab result is unknown WEIGHT - PRE DAY 1 2023-03-27 16:18:51 153.3 kg F PATIENT AGE 2023-03-27 16:18:51 52 Years F TOTAL HOURS/WEEK DIALYSIS 2023-03-27 16:18:51 12 hrs F Std Renal KT/V 2023-03-27 16:18:51 F Unable to calculate: Post BUN lab result is unknown CURRENT KRU 2023-03-27 16:18:51 F Unable to calculate: Post BUN lab result is unknown BSA STARR 2023-03-27 16:18:51 F Unable to calculate: Post BUN lab result is unknown WEIGHT - POST DAY 1 2023-03-27 16:18:51 148.7 kg F Total Kt/V 2023-03-27 16:18:51 F Unable to calculate: Post BUN lab result is unknown HEIGHT IN INCHES 2023-03-27 16:18:51 73 Inches F VM (KT/V MEAN VOL) 2023-03-27 16:18:51 F Unable to calculate: Post BUN lab result is unknown Dialyzer DB 2023-03-27 16:18:51 1474 Calc F eKt/V 2023-03-27 16:18:51 F Unable to calculate: Post BUN lab result is unknown KT/V PRESCRIBED 2023-03-27 16:18:51 F Unable to calculate: Post BUN lab result is unknown PRESCRIBED DAYS/WEEK 2023-03-27 16:18:51 3 Day/Wk F TBW ([facility]ff) 2023-03-27 16:18:51 F Unable to calculate: Post BUN lab result is unknown spKt/V 2023-03-27 16:18:51 F Unable to calculate: Post BUN lab result is unknown URR% 2023-03-27 16:18:51 F Unable to calculate: Post BUN lab result is unknown LENGTH OF DIALYSIS 2023-03-27 16:18:51 233 min F Residual kt/v 2023-03-27 16:18:51 F Unable to calculate: Post BUN lab result is unknown stdKt/V (DIAL) 2023-03-27 16:18:51 F Unable to calculate: Post BUN lab result is unknown BLOOD FLOW-QWB 2023-03-27 16:18:51 400 F stdKT/V Total 2023-03-27 16:18:51 N/A F DIALYZER FLOW-QD 2023-03-27 16:18:51 727 mL/min F WEIGHT (KG) 2023-03-27 16:18:51 147 kg F VT (KT/V TX VOL) 2023-03-27 16:18:51 F Unable to calculate: Post BUN lab result is unknown AMPUTATE FACTOR 2023-03-27 16:18:51 0 F URR% 2023-03-27 16:18:51 F Unable to calculate: Post BUN lab result is unknown DIALYZER FLOW-QD 2023-03-27 16:18:51 727 mL/min F Dialyzer DB 2023-03-27 16:18:51 1474 Calc F LENGTH OF DIALYSIS 2023-03-27 16:18:51 233 min F PATIENT AGE 2023-03-27 16:18:51 52 Years F BSA STARR 2023-03-27 16:18:51 F Unable to calculate: Post BUN lab result is unknown WEIGHT - PRE DAY 1 2023-03-27 16:18:51 153.3 kg F HEIGHT IN INCHES 2023-03-27 16:18:51 73 Inches F WEIGHT - POST DAY 1 2023-03-27 16:18:51 148.7 kg F WEIGHT (KG) 2023-03-27 16:18:51 147 kg F PRESCRIBED DAYS/WEEK 2023-03-27 16:18:51 3 Day/Wk F VT (KT/V TX VOL) 2023-03-27 16:18:51 [...] unknown stdKT/V Total 2023-03-27 16:18:51 N/A F TOTAL HOURS/WEEK DIALYSIS 2023-03-27 16:18:51 12 hrs F BLOOD FLOW-QWB 2023-03-27 16:18:51 400 F CURRENT KRU 2023-03-27 16:18:51 F Unable to calculate: Post BUN lab result is unknown Creatinine [Mass/volume] in Serum or Plasma 2023-03-27 [...] TX VOL) 2023-02-27 17:54:47 56 L F TOTAL HOURS/WEEK DIALYSIS 2023-02-27 17:54:47 12 hrs F PRESCRIBED DAYS/WEEK 2023-02-27 17:54:47 3 Day/Wk F Residual kt/v 2023-02-27 17:54:47 F URR% 2023-02-27 17:54:47 63 % F nPCR 2023-02-27 17:54:47 0.94 G/KG/D F Dialyzer DB 2023-02-27 17:54:47 1474 Calc F stdKt/V (DIAL) 2023-02-27 17:54:47 N/A F WEIGHT - POST DAY 1 2023-02-27 17:54:47 145.5 kg F eKt/V 2023-02-27 17:54:47 1.06 F stdKT/V Total 2023-02-27 17:54:47 N/A F DIALYZER FLOW-QD 2023-02-27 17:54:47 600 mL/min F AMPUTATE FACTOR 2023-02-27 17:54:47 0 F TBW ([facility]) 2023-02-27 17:54:47 66.52 Liters F spKt/V 2023-02-27 17:54:47 1.22 F HEIGHT IN INCHES 2023-02-27 17:54:47 73 Inches F PATIENT AGE 2023-02-27 17:54:47 52 Years F Total Kt/V 2023-02-27 17:54:47 1.22 F BSA STARR 2023-02-27 17:54:47 2.63 sq m F KT/V PRESCRIBED 2023-02-27 17:54:47 1.32 F LENGTH OF DIALYSIS 2023-02-27 17:54:47 241 min F WEIGHT - PRE DAY 1 2023-02-27 17:54:47 150.1 kg F BLOOD FLOW-QWB 2023-02-27 17:54:47 378 F WEIGHT (KG) 2023-02-27 17:54:47 146 kg F VM (KT/V MEAN VOL) 2023-02-27 17:54:47 56.4 F CURRENT KRU 2023-02-27 17:54:47 F Std Renal KT/V 2023-02-27 17:54:47 N/A F eKt/V 2023-02-27 17:54:47 1.06 F Dialyzer DB 2023-02-27 17:54:47 1474 Calc F PRESCRIBED DAYS/WEEK 2023-02-27 17:54:47 3 Day/Wk F PATIENT AGE 2023-02-27 17:54:47 52 Years F KT/V PRESCRIBED 2023-02-27 17:54:47 1.32 F BLOOD FLOW-QWB 2023-02-27 17:54:47 378 F LENGTH OF DIALYSIS 2023-02-27 17:54:47 241 min F Std Renal KT/V 2023-02-27 17:54:47 N/A F BSA STARR 2023-02-27 17:54:47 2.63 sq m F Residual kt/v 2023-02-27 17:54:47 F stdKt/V (DIAL) 2023-02-27 17:54:47 N/A F HEIGHT IN INCHES 2023-02-27 17:54:47 73 Inches F WEIGHT - POST DAY 1 2023-02-27 17:54:47 145.5 kg F TOTAL HOURS/WEEK DIALYSIS 2023-02-27 17:54:47 12 hrs F spKt/V 2023-02-27 17:54:47 1.22 F TBW ([facility]) 2023-02-27 17:54:47 66.52 Liters F nPCR 2023-02-27 17:54:47 0.94 G/KG/D F URR% 2023-02-27 17:54:47 63 % F CURRENT KRU 2023-02-27 17:54:47 F VT (KT/V TX VOL) 2023-02-27 17:54:47 56 L F DIALYZER FLOW-QD 2023-02-27 17:54:47 600 mL/min F stdKT/V Total 2023-02-27 17:54:47 N/A F AMPUTATE FACTOR 2023-02-27 17:54:47 0 F Total Kt/V 2023-02-27 17:54:47 1.22 F WEIGHT - PRE DAY 1 2023-02-27 17:54:47 150.1 kg F WEIGHT (KG) 2023-02-27 17:54:47 146 kg F VM (KT/V MEAN VOL) 2023-02-27 17:54:47 56.4 F Creatinine [Mass/volume] in Serum or Plasma [...] Plasma 2023-01-30 22:43:25 3.13 mg/dL F 0.7-1.3 PRESCRIBED DAYS/WEEK 2022-12-20 13:56:46 3 Day/Wk F AMPUTATE FACTOR 2022-12-20 13:56:46 0 F Std Renal KT/V 2022-12-20 13:56:46 N/A F HEIGHT IN INCHES 2022-12-20 13:56:46 73 Inches F LENGTH OF DIALYSIS 2022-12-20 13:56:46 234 min F WEIGHT - POST DAY 1 2022-12-20 13:56:46 138.3 kg F WEIGHT (KG) 2022-12-20 13:56:46 117 kg F PATIENT AGE 2022-12-20 13:56:46 52 Years F Dialyzer DB 2022-12-20 13:56:46 1218 Calc F KT/V PRESCRIBED 2022-12-20 13:56:46 1.32 F TOTAL HOURS/WEEK DIALYSIS 2022-12-20 13:56:46 3 F CURRENT KRU 2022-12-20 13:56:46 F BSA STARR 2022-12-20 13:56:46 2.4 sq m F URR% 2022-12-20 13:56:46 58 % F Total Kt/V 2022-12-20 13:56:46 0.91 F spKt/V 2022-12-20 13:56:46 0.91 F eKt/V 2022-12-20 13:56:46 0.8 F VT (KT/V TX VOL) 2022-12-20 13:56:46 68.8 L F VM (KT/V MEAN VOL) 2022-12-20 13:56:46 49.7 F nPCR 2022-12-20 13:56:46 0.43 G/KG/D F DIALYZER FLOW-QD 2022-12-20 13:56:46 500 mL/min F stdKt/V (DIAL) 2022-12-20 13:56:46 N/A F BLOOD FLOW-QWB 2022-12-20 13:56:46 400 F stdKT/V Total 2022-12-20 13:56:46 N/A F WEIGHT - PRE DAY 1 2022-12-20 13:56:46 139.5 kg F Residual kt/v 2022-12-20 13:56:46 F TBW (Wolff) 2022-12-20 13:56:46 64.1 Liters F Creatinine [Mass/volume] in Serum or Plasma 2022-12-20 13:55:13 5.09 mg/dL F 0.7-1.3 Urea nitrogen [Mass/volume] in Serum or Plasma 2022-12-20 13:55:13 71 mg/dL F 9.0-23.0 Urea nitrogen [Mass/volume] in Serum or Plasma --post dialysis 2022-12-20 06:53:17 30 mg/dL F 9.0-23.0 spKt/V 2022-08-06 15:02:11 1.19 F VT (KT/V TX VOL) 2022-08-06 15:02:11 55.6 L F TOTAL HOURS/WEEK DIALYSIS 2022-08-06 15:02:11 4 F URR% 2022-08-06 15:02:11 68 % F DIALYZER FLOW-QD 2022-08-06 15:02:11 600 mL/min F stdKt/V (DIAL) 2022-08-06 15:02:11 N/A F HEIGHT IN INCHES 2022-08-06 15:02:11 73 Inches F BLOOD FLOW-QWB 2022-08-06 15:02:11 383 F Residual kt/v 2022-08-06 15:02:11 F AMPUTATE FACTOR 2022-08-06 15:02:11 0 F PRESCRIBED DAYS/WEEK 2022-08-06 15:02:11 3 Day/Wk F nPCR 2022-08-06 15:02:11 0.3 G/KG/D F Dialyzer DB 2022-08-06 15:02:11 1218 Calc F WEIGHT - POST DAY 1 2022-08-06 15:02:11 117.4 kg F PATIENT AGE 2022-08-06 15:02:11 51 Years F Total Kt/V 2022-08-06 15:02:11 1.19 F stdKT/V Total 2022-08-06 15:02:11 N/A F TBW (Wolff) 2022-08-06 15:02:11 57.17 Liters F WEIGHT (KG) 2022-08-06 15:02:11 117 kg F KT/V PRESCRIBED 2022-08-06 15:02:11 1.43 F VM (KT/V MEAN VOL) 2022-08-06 15:02:11 48.7 F Std Renal KT/V 2022-08-06 15:02:11 N/A F eKt/V 2022-08-06 15:02:11 1.04 F WEIGHT - PRE DAY 1 2022-08-06 15:02:11 118.4 kg F LENGTH OF DIALYSIS 2022-08-06 15:02:11 243 min F VT (KT/V TX VOL) 2022-08-06 15:02:11 55.6 L F TOTAL HOURS/WEEK DIALYSIS 2022-08-06 15:02:11 4 F URR% 2022-08-06 15:02:11 68 % F DIALYZER FLOW-QD 2022-08-06 15:02:11 600 mL/min F TBW (Wolff) 2022-08-06 15:02:11 57.17 Liters F HEIGHT IN INCHES 2022-08-06 15:02:11 73 Inches F stdKt/V (DIAL) 2022-08-06 15:02:11 N/A F WEIGHT - POST DAY 1 2022-08-06 15:02:11 117.4 kg F stdKT/V Total 2022-08-06 15:02:11 N/A F LENGTH OF DIALYSIS 2022-08-06 15:02:11 243 min F VM (KT/V MEAN VOL) 2022-08-06 15:02:11 48.7 F eKt/V 2022-08-06 15:02:11 1.04 F WEIGHT - PRE DAY 1 2022-08-06 15:02:11 118.4 kg F WEIGHT (KG) 2022-08-06 15:02:11 117 kg F KT/V PRESCRIBED 2022-08-06 15:02:11 1.43 F spKt/V 2022-08-06 15:02:11 1.19 F PATIENT AGE 2022-08-06 15:02:11 51 Years F PRESCRIBED DAYS/WEEK 2022-08-06 15:02:11 3 Day/Wk F BLOOD FLOW-QWB 2022-08-06 15:02:11 383 F AMPUTATE FACTOR 2022-08-06 15:02:11 0 F Residual kt/v 2022-08-06 15:02:11 F Total Kt/V 2022-08-06 15:02:11 1.19 F nPCR 2022-08-06 15:02:11 0.3 G/KG/D F Std Renal KT/V 2022-08-06 15:02:11 N/A F Dialyzer DB 2022-08-06 15:02:11 1218 Calc F CURRENT KRU 2022-08-06 15:02:11 F BSA STARR 2022-08-06 15:02:11 2.4 sq m F CURRENT KRU 2022-08-06 15:02:11 F BSA STARR 2022-08-06 15:02:11 2.4 sq m F Creatinine [Mass/volume] in Serum or Plasma [...] dialysis 2022-08-06 14:10:55 10 mg/dL F 9.0-23.0 BLOOD FLOW-QWB 2022-06-28 00:26:13 348 F stdKT/V Total 2022-06-28 00:26:13 N/A F HEIGHT IN INCHES 2022-06-28 00:26:13 73 Inches F stdKt/V (DIAL) 2022-06-28 00:26:13 N/A F nPCR 2022-06-28 00:26:13 0.35 G/KG/D F KT/V PRESCRIBED 2022-06-28 00:26:13 1.41 F WEIGHT (KG) 2022-06-28 00:26:13 118 kg F PATIENT AGE 2022-06-28 00:26:13 51 Years F WEIGHT - POST DAY 1 2022-06-28 00:26:13 119.3 kg F PRESCRIBED DAYS/WEEK 2022-06-28 00:26:13 3 Day/Wk F DIALYZER FLOW-QD 2022-06-28 00:26:13 600 mL/min F URR% 2022-06-28 00:26:13 87 % F WEIGHT - PRE DAY 1 2022-06-28 00:26:13 122.5 kg F LENGTH OF DIALYSIS 2022-06-28 00:26:13 241 min F Dialyzer DB 2022-06-28 00:26:13 1218 Calc F Total Kt/V 2022-06-28 00:26:13 2.37 F AMPUTATE FACTOR 2022-06-28 00:26:13 0 F TOTAL HOURS/WEEK DIALYSIS 2022-06-28 00:26:13 4 F spKt/V 2022-06-28 00:26:13 2.37 F WEIGHT (KG) 2022-06-28 00:26:13 118 kg F KT/V PRESCRIBED 2022-06-28 00:26:13 1.41 F PATIENT AGE 2022-06-28 00:26:13 51 Years F WEIGHT - PRE DAY 1 2022-06-28 00:26:13 122.5 kg F stdKT/V Total 2022-06-28 00:26:13 N/A F PRESCRIBED DAYS/WEEK 2022-06-28 00:26:13 3 Day/Wk F LENGTH OF DIALYSIS 2022-06-28 00:26:13 241 min F WEIGHT - POST DAY 1 2022-06-28 00:26:13 119.3 kg F Total Kt/V 2022-06-28 00:26:13 2.37 F TOTAL HOURS/WEEK DIALYSIS 2022-06-28 00:26:13 4 F Dialyzer DB 2022-06-28 00:26:13 1218 Calc F nPCR 2022-06-28 00:26:13 0.35 G/KG/D F BLOOD FLOW-QWB 2022-06-28 00:26:13 348 F stdKt/V (DIAL) 2022-06-28 00:26:13 N/A F HEIGHT IN INCHES 2022-06-28 00:26:13 73 Inches F DIALYZER FLOW-QD 2022-06-28 00:26:13 600 mL/min F URR% 2022-06-28 00:26:13 87 % F spKt/V 2022-06-28 00:26:13 2.37 F AMPUTATE FACTOR 2022-06-28 00:26:13 0 F URR% 2022-06-28 00:26:13 87 % F DIALYZER FLOW-QD 2022-06-28 00:26:13 600 mL/min F Dialyzer DB 2022-06-28 00:26:13 1218 Calc F LENGTH OF DIALYSIS 2022-06-28 00:26:13 241 min F PATIENT AGE 2022-06-28 00:26:13 51 Years F WEIGHT - POST DAY 1 2022-06-28 00:26:13 119.3 kg F WEIGHT - PRE DAY 1 2022-06-28 00:26:13 122.5 kg F HEIGHT IN INCHES 2022-06-28 00:26:13 73 Inches F WEIGHT (KG) 2022-06-28 00:26:13 118 kg F PRESCRIBED DAYS/WEEK 2022-06-28 00:26:13 3 Day/Wk F Total Kt/V 2022-06-28 00:26:13 2.37 F nPCR 2022-06-28 00:26:13 0.35 G/KG/D F AMPUTATE FACTOR 2022-06-28 00:26:13 0 F KT/V PRESCRIBED 2022-06-28 00:26:13 1.41 F spKt/V 2022-06-28 00:26:13 2.37 F stdKT/V Total 2022-06-28 00:26:13 N/A F stdKt/V (DIAL) 2022-06-28 00:26:13 N/A F TOTAL HOURS/WEEK DIALYSIS 2022-06-28 00:26:13 4 F BLOOD FLOW-QWB 2022-06-28 00:26:13 348 F VM (KT/V MEAN VOL) 2022-06-28 00:26:13 46 F eKt/V 2022-06-28 00:26:13 2.02 F Residual kt/v 2022-06-28 00:26:13 F VT (KT/V TX VOL) 2022-06-28 00:26:13 26.4 L F BSA STARR 2022-06-28 00:26:13 2.41 sq m F Std Renal KT/V 2022-06-28 00:26:13 N/A F CURRENT KRU 2022-06-28 00:26:13 F TBW (Wolff) 2022-06-28 00:26:13 57.81 Liters F BSA STARR 2022-06-28 00:26:13 2.41 sq m F VT (KT/V TX VOL) 2022-06-28 00:26:13 26.4 L F CURRENT KRU 2022-06-28 00:26:13 F TBW (Wolff) 2022-06-28 00:26:13 57.81 Liters F eKt/V 2022-06-28 00:26:13 2.02 F VM (KT/V MEAN VOL) 2022-06-28 00:26:13 46 F Residual kt/v 2022-06-28 00:26:13 F Std Renal KT/V 2022-06-28 00:26:13 N/A F BSA STARR 2022-06-28 00:26:13 2.41 sq m F VT (KT/V TX VOL) 2022-06-28 00:26:13 26.4 L F VM (KT/V MEAN VOL) 2022-06-28 00:26:13 46 F Residual kt/v 2022-06-28 00:26:13 F TBW (Wolff) 2022-06-28 00:26:13 57.81 Liters F eKt/V 2022-06-28 00:26:13 2.02 F Std Renal KT/V 2022-06-28 00:26:13 N/A F CURRENT KRU 2022-06-28 00:26:13 F Creatinine [Mass/volume] in Serum or Plasma 2022-06-28 00:23:52 2.18 mg/dL F 0.7-1.3 Urea nitrogen [Mass/volume] in Serum or Plasma 2022-06-28 00:23:52 31 mg/dL F 9.0-23.0 Urea nitrogen [Mass/volume] in Serum or Plasma 2022-06-28 00:23:52 31 mg/dL F 9.0-23.0 Creatinine [Mass/volume] in Serum or Plasma 2022-06-28 00:23:52 2.18 mg/dL F 0.7-1.3 Urea nitrogen [Mass/volume] in Serum or Plasma 2022-06-28 00:23:52 31 mg/dL F 9.0-23.0 Creatinine [Mass/volume] in Serum or Plasma 2022-06-28 00:23:52 2.18 mg/dL F 0.7-1.3 Urea nitrogen [Mass/volume] in Serum or Plasma --post dialysis 2022-06-27 23:46:00 4 mg/dL F 9.0-23.0 Urea nitrogen [Mass/volume] in Serum or Plasma --post dialysis 2022-06-27 23:46:00 4 mg/dL F 9.0-23.0 Urea nitrogen [Mass/volume] in Serum or Plasma --post dialysis 2022-06-27 23:46:00 4 mg/dL F 9.0-23.0 URR% 2022-05-28 15:54:52 73 % F stdKt/V (DIAL) 2022-05-28 15:54:52 N/A F stdKT/V Total 2022-05-28 15:54:52 N/A F nPCR 2022-05-28 15:54:52 0.92 G/KG/D F spKt/V 2022-05-28 15:54:52 1.41 F KT/V PRESCRIBED 2022-05-28 15:54:52 1.38 F Total Kt/V 2022-05-28 15:54:52 1.41 F PATIENT AGE 2022-05-28 15:54:52 51 Years F DIALYZER FLOW-QD 2022-05-28 15:54:52 600 mL/min F PRESCRIBED DAYS/WEEK 2022-05-28 15:54:52 3 Day/Wk F WEIGHT - PRE DAY 1 2022-05-28 15:54:52 122.5 kg F Dialyzer DB 2022-05-28 15:54:52 1218 Calc F BLOOD FLOW-QWB 2022-05-28 15:54:52 373 F WEIGHT (KG) 2022-05-28 15:54:52 118 kg F HEIGHT IN INCHES 2022-05-28 15:54:52 73 Inches F AMPUTATE FACTOR 2022-05-28 15:54:52 0 F TOTAL HOURS/WEEK DIALYSIS 2022-05-28 15:54:52 9 F WEIGHT - POST DAY 1 2022-05-28 15:54:52 122.2 kg F LENGTH OF DIALYSIS 2022-05-28 15:54:52 236 min F Total Kt/V 2022-05-28 15:54:52 1.41 F LENGTH OF DIALYSIS 2022-05-28 15:54:52 236 min F HEIGHT IN INCHES 2022-05-28 15:54:52 73 Inches F BLOOD FLOW-QWB 2022-05-28 15:54:52 373 F DIALYZER FLOW-QD 2022-05-28 15:54:52 600 mL/min F WEIGHT - PRE DAY 1 2022-05-28 15:54:52 122.5 kg F TOTAL HOURS/WEEK DIALYSIS 2022-05-28 15:54:52 9 F spKt/V 2022-05-28 15:54:52 1.41 F KT/V PRESCRIBED 2022-05-28 15:54:52 1.38 F Dialyzer DB 2022-05-28 15:54:52 1218 Calc F WEIGHT (KG) 2022-05-28 15:54:52 118 kg F PRESCRIBED DAYS/WEEK 2022-05-28 15:54:52 3 Day/Wk F AMPUTATE FACTOR 2022-05-28 15:54:52 0 F URR% 2022-05-28 15:54:52 73 % F stdKt/V (DIAL) 2022-05-28 15:54:52 N/A F nPCR 2022-05-28 15:54:52 0.92 G/KG/D F stdKT/V Total 2022-05-28 15:54:52 N/A F WEIGHT - POST DAY 1 2022-05-28 15:54:52 122.2 kg F PATIENT AGE 2022-05-28 15:54:52 51 Years F TBW (Wolff) 2022-05-28 15:54:52 58.78 Liters F VM (KT/V MEAN VOL) 2022-05-28 15:54:52 45.1 F VT (KT/V TX VOL) 2022-05-28 15:54:52 45.1 L F Residual kt/v 2022-05-28 15:54:52 F eKt/V 2022-05-28 15:54:52 1.21 F BSA STARR 2022-05-28 15:54:52 2.41 sq m F CURRENT KRU 2022-05-28 15:54:52 F Std Renal KT/V 2022-05-28 15:54:52 N/A F VM (KT/V MEAN VOL) 2022-05-28 15:54:52 45.1 F VT (KT/V TX VOL) 2022-05-28 15:54:52 45.1 L F eKt/V 2022-05-28 15:54:52 1.21 F Residual kt/v 2022-05-28 15:54:52 F TBW (Wolff) 2022-05-28 15:54:52 58.78 Liters [...] Plasma 2022-05-28 15:47:59 62 mg/dL F 9.0-23.0 WEIGHT (KG) 2022-05-26 14:41:20 129.3 kg F Total Kt/V 2022-05-26 14:41:20 F Unable to calculate: Missing Height at time of lab draw nPCR 2022-05-26 14:41:20 F Unable to calculate: Missing Height at time of lab draw URR% 2022-05-26 14:41:20 74 % F DIALYZER FLOW-QD 2022-05-26 14:41:20 600 mL/min F TOTAL HOURS/WEEK DIALYSIS 2022-05-26 14:41:20 4 F stdKt/V (DIAL) 2022-05-26 14:41:20 F Unable to calculate: Missing Height at time of lab draw LENGTH OF DIALYSIS 2022-05-26 14:41:20 240 min F Dialyzer DB 2022-05-26 14:41:20 1218 Calc F HEIGHT IN INCHES 2022-05-26 14:41:20 F Unable to calculate: Missing Height at time of lab draw stdKT/V Total 2022-05-26 14:41:20 N/A F PRESCRIBED DAYS/WEEK 2022-05-26 14:41:20 3 Day/Wk F AMPUTATE FACTOR 2022-05-26 14:41:20 0 F spKt/V 2022-05-26 14:41:20 F Unable to calculate: Missing Height at time of lab draw WEIGHT - PRE DAY 1 2022-05-26 14:41:20 118.1 kg F KT/V PRESCRIBED 2022-05-26 14:41:20 F Unable to calculate: Missing Height at time of lab draw WEIGHT - POST DAY 1 2022-05-26 14:41:20 117.1 kg F BLOOD FLOW-QWB 2022-05-26 14:41:20 373 F PATIENT AGE 2022-05-26 14:41:20 51 Years F PRESCRIBED DAYS/WEEK 2022-05-26 14:41:20 3 Day/Wk F WEIGHT - PRE DAY 1 2022-05-26 14:41:20 118.1 kg F AMPUTATE FACTOR 2022-05-26 14:41:20 0 F WEIGHT (KG) 2022-05-26 14:41:20 129.3 kg F Dialyzer DB 2022-05-26 14:41:20 1218 Calc F LENGTH OF DIALYSIS 2022-05-26 14:41:20 240 min F DIALYZER FLOW-QD 2022-05-26 14:41:20 600 mL/min F URR% 2022-05-26 14:41:20 74 % F Total Kt/V 2022-05-26 14:41:20 F Unable to calculate: Missing Height at time of lab draw nPCR 2022-05-26 14:41:20 F Unable to calculate: Missing Height at time of lab draw HEIGHT IN INCHES 2022-05-26 14:41:20 F Unable to calculate: Missing Height at time of lab draw stdKt/V (DIAL) 2022-05-26 14:41:20 F Unable to calculate: Missing Height at time of lab draw TOTAL HOURS/WEEK DIALYSIS 2022-05-26 14:41:20 4 F spKt/V 2022-05-26 14:41:20 F Unable to calculate: Missing Height at time of lab draw stdKT/V Total 2022-05-26 14:41:20 N/A F KT/V PRESCRIBED 2022-05-26 14:41:20 F Unable to calculate: Missing Height at time of lab draw WEIGHT - POST DAY 1 2022-05-26 14:41:20 117.1 kg F PATIENT AGE 2022-05-26 14:41:20 51 Years F BLOOD FLOW-QWB 2022-05-26 14:41:20 373 F Std Renal KT/V 2022-05-26 14:41:20 F Unable [...] Height at time of lab draw TBW (New) 2022-05-26 14:41:20 F Unable to calculate: Missing [...] dialysis 2022-05-23 21:23:44 23 mg/dL F 9.0-23.0 Creatinine [Mass/volume] in Serum or Plasma 2022-05-23 20:51:42 10.9 mg/dL F 0.7-1.3 Urea nitrogen [Mass/volume] in Serum or Plasma 2022-05-23 20:51:42 90 mg/dL F 9.0-23.0 Creatinine [Mass/volume] in Serum or Plasma 2022-05-23 20:51:42 10.9 mg/dL F 0.7-1.3 Urea nitrogen [Mass/volume] in Serum or Plasma 2022-05-23 20:51:42 90 mg/dL F 9.0-23.0 Anemia Description Draw Date Result/Unit Status Ref Range Result Comments HCT CALC HGBX3 2025-02-22 03:47:13 30 % F 42.0-52.0 Hemoglobin [Mass/volume] in Blood 2025-02-22 03:46:16 10 g/dL F 14.0-18.0 HCT CALC HGBX3 2025-01-31 15:56:15 33.6 % F 42.0-52.0 MCV [Entitic volume] by Automated count 2025-01-31 15:55:13 107.5 fL F 80.0-100.0 Hematocrit [Volume Fraction] of Blood by Automated count 2025-01-31 15:55:13 35.1 % F 41.0-53.0 MCH [Entitic mass] by Automated count 2025-01-31 15:55:13 34.4 pg F 25.9-34.2 Erythrocytes [#/volume] in Blood by Automated count 2025-01-31 15:55:13 3.27 x 10^6 cells/uL F 4.6-6.2 MCHC [Mass/volume] by Automated count 2025-01-31 15:55:12 32 g/dL F 29.6-35.3 Platelets [#/volume] in Blood by Automated count 2025-01-31 15:55:12 189 x 10^3 cells/uL F 140.0-450.0 Hemoglobin [Mass/volume] in Blood 2025-01-31 15:55:12 11.2 g/dL F 14.0-18.0 Erythrocyte distribution width [Ratio] by Automated count 2025-01-31 15:55:12 14.9 % F 11.0-15.0 HCT CALC HGBX3 2025-01-17 23:24:15 32.7 % F 42.0-52.0 Hemoglobin [Mass/volume] in Blood 2025-01-17 23:23:09 10.9 g/dL F 14.0-18.0 HCT CALC HGBX3 2025-01-05 00:01:12 31.5 % F 42.0-52.0 MCH [Entitic mass] by Automated count 2025-01-05 00:00:15 34.4 pg F 25.9-34.2 MCHC [Mass/volume] by Automated count 2025-01-05 00:00:15 32.2 g/dL F 29.6-35.3 Erythrocyte distribution width [Ratio] by Automated count 2025-01-05 00:00:15 13.8 % F 11.0-15.0 Erythrocytes [#/volume] in Blood by Automated count 2025-01-05 00:00:13 3.06 x 10^6 cells/uL F 4.6-6.2 MCV [Entitic volume] by Automated count 2025-01-05 00:00:13 106.8 fL F 80.0-100.0 Hemoglobin [Mass/volume] in Blood 2025-01-05 00:00:13 10.5 g/dL F 14.0-18.0 Hematocrit [Volume Fraction] of Blood by Automated count 2025-01-05 00:00:13 32.7 % F 41.0-53.0 Platelets [#/volume] in Blood by Automated count 2025-01-05 00:00:13 236 x 10^3 cells/uL F 140.0-450.0 IRON SATURATION 2025-01-04 23:44:56 22 % F 21.0-49.0 TIBC 2025-01-04 23:44:56 224 ug/dL F 250.0-425.0 Iron binding capacity.unsaturated [Mass/volume] in Serum or Plasma 2025-01-04 23:37:49 174 ug/dL F 75.0-360.0 Iron [Mass/volume] in Serum or Plasma 2025-01-04 23:37:49 50 ug/dL F 65.0-175.0 Ferritin [Mass/volume] in Serum or Plasma 2025-01-04 20:03:15 328 ng/mL F 22.0-322.0 HCT CALC HGBX3 2024-12-21 00:02:34 31.5 % F 42.0-52.0 HCT CALC HGBX3 2024-12-21 00:02:34 31.5 % F 42.0-52.0 Hemoglobin [Mass/volume] in Blood 2024-12-21 00:00:12 10.5 g/dL F 14.0-18.0 Hemoglobin [Mass/volume] in Blood 2024-12-21 00:00:12 10.5 g/dL F 14.0-18.0 HCT CALC HGBX3 2024-11-29 19:39:47 30.9 % F 42.0-52.0 HCT CALC HGBX3 2024-11-29 19:39:47 30.9 % F 42.0-52.0 Erythrocyte distribution width [Ratio] by Automated count 2024-11-29 19:39:11 14.2 % F 11.0-15.0 Erythrocytes [#/volume] in Blood by Automated count 2024-11-29 19:39:11 3.12 x 10^6 cells/uL F 4.6-6.2 Hematocrit [Volume Fraction] of Blood by Automated count 2024-11-29 19:39:11 33 % F 41.0-53.0 Hemoglobin [Mass/volume] in Blood 2024-11-29 19:39:11 10.3 g/dL F 14.0-18.0 MCV [Entitic volume] by Automated count 2024-11-29 19:39:11 106 fL F 80.0-100.0 MCH [Entitic mass] by Automated count 2024-11-29 19:39:11 33 pg F 25.9-34.2 Platelets [#/volume] in Blood by Automated count 2024-11-29 19:39:11 223 x 10^3 cells/uL F 140.0-450.0 MCHC [Mass/volume] by Automated count 2024-11-29 19:39:11 31.1 g/dL F 29.6-35.3 Erythrocyte distribution width [Ratio] by Automated count 2024-11-29 19:39:11 14.2 % F 11.0-15.0 Hemoglobin [Mass/volume] in Blood 2024-11-29 19:39:11 10.3 g/dL F 14.0-18.0 Platelets [#/volume] in Blood by Automated count 2024-11-29 19:39:11 223 x 10^3 cells/uL F 140.0-450.0 MCH [Entitic mass] by Automated count 2024-11-29 19:39:11 33 pg F 25.9-34.2 MCHC [Mass/volume] by Automated count 2024-11-29 19:39:11 31.1 g/dL F 29.6-35.3 Erythrocytes [#/volume] in Blood by Automated count 2024-11-29 19:39:11 3.12 x 10^6 cells/uL F 4.6-6.2 Hematocrit [Volume Fraction] of Blood by Automated count 2024-11-29 19:39:11 33 % F 41.0-53.0 MCV [Entitic volume] by Automated count 2024-11-29 19:39:11 106 fL F 80.0-100.0 HCT CALC HGBX3 2024-11-16 02:16:13 31.2 % F 42.0-52.0 HCT CALC HGBX3 2024-11-16 02:16:13 31.2 % F 42.0-52.0 Hemoglobin [Mass/volume] in Blood 2024-11-16 02:15:10 10.4 g/dL F 14.0-18.0 Hemoglobin [Mass/volume] in Blood 2024-11-16 02:15:10 10.4 g/dL F 14.0-18.0 HCT CALC HGBX3 2024-11-02 14:55:00 32.1 % F 42.0-52.0 HCT CALC HGBX3 2024-11-02 14:55:00 32.1 % F 42.0-52.0 Hemoglobin [Mass/volume] in Blood 2024-11-02 14:54:07 10.7 g/dL F 14.0-18.0 Hemoglobin [Mass/volume] in Blood 2024-11-02 14:54:07 10.7 g/dL F 14.0-18.0 HCT CALC HGBX3 2024-10-18 15:29:10 32.4 % F 42.0-52.0 HCT CALC HGBX3 2024-10-18 15:29:10 32.4 % F 42.0-52.0 HCT CALC HGBX3 2024-10-18 15:29:10 32.4 % F 42.0-52.0 HCT CALC HGBX3 2024-10-18 15:29:10 32.4 % F 42.0-52.0 Erythrocyte distribution width [Ratio] by Automated count 2024-10-18 15:28:17 14.4 % F 11.0-15.0 Hemoglobin [Mass/volume] in Blood 2024-10-18 15:28:17 10.8 g/dL F 14.0-18.0 Platelets [#/volume] in Blood by Automated count 2024-10-18 15:28:17 185 x 10^3 cells/uL F 140.0-450.0 Hematocrit [Volume Fraction] of Blood by Automated count 2024-10-18 15:28:17 34.6 % F 41.0-53.0 Hematocrit [Volume Fraction] of Blood by Automated count 2024-10-18 15:28:17 34.6 % F 41.0-53.0 Hemoglobin [Mass/volume] in Blood 2024-10-18 15:28:17 10.8 g/dL F 14.0-18.0 Platelets [#/volume] in Blood by Automated count 2024-10-18 15:28:17 185 x 10^3 cells/uL F 140.0-450.0 Erythrocyte distribution width [Ratio] by Automated count 2024-10-18 15:28:17 14.4 % F 11.0-15.0 Erythrocyte distribution width [Ratio] by Automated count 2024-10-18 15:28:17 14.4 % F 11.0-15.0 Hemoglobin [Mass/volume] in Blood 2024-10-18 15:28:17 10.8 g/dL F 14.0-18.0 Platelets [#/volume] in Blood by Automated count 2024-10-18 15:28:17 185 x 10^3 cells/uL F 140.0-450.0 Hematocrit [Volume Fraction] of Blood by Automated count 2024-10-18 15:28:17 34.6 % F 41.0-53.0 Erythrocyte distribution width [Ratio] by Automated count 2024-10-18 15:28:17 14.4 % F 11.0-15.0 Hemoglobin [Mass/volume] in Blood 2024-10-18 15:28:17 10.8 g/dL F 14.0-18.0 Platelets [#/volume] in Blood by Automated count 2024-10-18 15:28:17 185 x 10^3 cells/uL F 140.0-450.0 Hematocrit [Volume Fraction] of Blood by Automated count 2024-10-18 15:28:17 34.6 % F 41.0-53.0 MCH [Entitic mass] by Automated count 2024-10-18 15:28:15 31.9 pg F 25.9-34.2 MCHC [Mass/volume] by Automated count 2024-10-18 15:28:15 31.2 g/dL F 29.6-35.3 Erythrocytes [#/volume] in Blood by Automated count 2024-10-18 15:28:15 3.39 x 10^6 cells/uL F 4.6-6.2 MCV [Entitic volume] by Automated count 2024-10-18 15:28:15 102.2 fL F 80.0-100.0 MCH [Entitic mass] by Automated count 2024-10-18 15:28:15 31.9 pg F 25.9-34.2 MCHC [Mass/volume] by Automated count 2024-10-18 15:28:15 31.2 g/dL F 29.6-35.3 Erythrocytes [#/volume] in Blood by Automated count 2024-10-18 15:28:15 3.39 x 10^6 cells/uL F 4.6-6.2 MCV [Entitic volume] by Automated count 2024-10-18 15:28:15 102.2 fL F 80.0-100.0 MCH [Entitic mass] by Automated count 2024-10-18 15:28:15 31.9 pg F 25.9-34.2 MCHC [Mass/volume] by Automated count 2024-10-18 15:28:15 31.2 g/dL F 29.6-35.3 Erythrocytes [#/volume] in Blood by Automated count 2024-10-18 15:28:15 3.39 x 10^6 cells/uL F 4.6-6.2 MCV [Entitic volume] by Automated count 2024-10-18 15:28:15 102.2 fL F 80.0-100.0 MCH [Entitic mass] by Automated count 2024-10-18 15:28:15 31.9 pg F 25.9-34.2 MCHC [Mass/volume] by Automated count 2024-10-18 15:28:15 31.2 g/dL F 29.6-35.3 Erythrocytes [#/volume] in Blood by Automated count 2024-10-18 15:28:15 3.39 x 10^6 cells/uL F 4.6-6.2 MCV [Entitic volume] by Automated count 2024-10-18 15:28:15 102.2 fL F 80.0-100.0 HCT CALC HGBX3 2024-09-20 15:23:06 33.3 % F 42.0-52.0 HCT CALC HGBX3 2024-09-20 15:23:06 33.3 % F 42.0-52.0 HCT CALC HGBX3 2024-09-20 15:23:06 33.3 % F 42.0-52.0 Hemoglobin [Mass/volume] in Blood 2024-09-20 15:21:18 11.1 g/dL F 14.0-18.0 Hemoglobin [Mass/volume] in Blood 2024-09-20 15:21:18 11.1 g/dL F 14.0-18.0 Hemoglobin [Mass/volume] in Blood 2024-09-20 15:21:18 11.1 g/dL F 14.0-18.0 HCT CALC HGBX3 2024-08-30 13:20:39 33 % F 42.0-52.0 Erythrocyte distribution width [Ratio] by Automated count 2024-08-30 13:20:05 13.3 % F 11.0-15.0 Hemoglobin [Mass/volume] in Blood 2024-08-30 13:20:05 11 g/dL F 14.0-18.0 Platelets [#/volume] in Blood by Automated count 2024-08-30 13:20:05 181 x 10^3 cells/uL F 140.0-450.0 MCH [Entitic mass] by Automated count 2024-08-30 13:20:05 32.1 pg F 25.9-34.2 MCHC [Mass/volume] by Automated count 2024-08-30 13:20:05 31.2 g/dL F 29.6-35.3 Erythrocytes [#/volume] in Blood by Automated count 2024-08-30 13:20:05 3.42 x 10^6 cells/uL F 4.6-6.2 Hematocrit [Volume Fraction] of Blood by Automated count 2024-08-30 13:20:05 35.3 % F 41.0-53.0 MCV [Entitic volume] by Automated count 2024-08-30 13:20:05 103 fL F 80.0-100.0 HCT CALC HGBX3 2024-08-17 01:09:24 34.8 % F 42.0-52.0 Hemoglobin [Mass/volume] in Blood 2024-08-17 01:08:17 11.6 g/dL F 14.0-18.0 HCT CALC HGBX3 2024-08-02 22:30:17 35.7 % F 42.0-52.0 Erythrocyte distribution width [Ratio] by Automated count 2024-08-02 22:29:12 13.4 % F 11.0-15.0 Hemoglobin [Mass/volume] in Blood 2024-08-02 22:29:12 11.9 g/dL F 14.0-18.0 Platelets [#/volume] in Blood by Automated count 2024-08-02 22:29:12 189 x 10^3 cells/uL F 140.0-450.0 MCH [Entitic mass] by Automated count 2024-08-02 22:29:12 32.2 pg F 25.9-34.2 MCHC [Mass/volume] by Automated count 2024-08-02 22:29:12 30.6 g/dL F 29.6-35.3 Hematocrit [Volume Fraction] of Blood by Automated count 2024-08-02 22:29:12 38.7 % F 41.0-53.0 Erythrocytes [#/volume] in Blood by Automated count 2024-08-02 22:29:12 3.68 x 10^6 cells/uL F 4.6-6.2 MCV [Entitic volume] by Automated count 2024-08-02 22:29:12 105.1 fL F 80.0-100.0 Ferritin [Mass/volume] in Serum or Plasma 2024-07-08 05:19:33 311 ng/mL F 22.0-322.0 Ferritin [Mass/volume] in Serum or Plasma 2024-07-08 05:19:33 311 ng/mL F 22.0-322.0 Ferritin [Mass/volume] in Serum or Plasma 2024-07-08 05:19:33 311 ng/mL F 22.0-322.0 IRON SATURATION 2024-07-07 21:12:57 28 % F 21.0-49.0 TIBC 2024-07-07 21:12:57 231 ug/dL F 250.0-425.0 IRON SATURATION 2024-07-07 21:12:57 28 % F 21.0-49.0 TIBC 2024-07-07 21:12:57 231 ug/dL F 250.0-425.0 IRON SATURATION 2024-07-07 21:12:57 28 % F 21.0-49.0 TIBC 2024-07-07 21:12:57 231 ug/dL F 250.0-425.0 Iron binding capacity.unsaturated [Mass/volume] in Serum or Plasma 2024-07-07 18:59:22 166 ug/dL F 75.0-360.0 Iron [Mass/volume] in Serum or Plasma 2024-07-07 18:59:22 65 ug/dL F 65.0-175.0 Iron [Mass/volume] in Serum or Plasma 2024-07-07 18:59:22 65 ug/dL F 65.0-175.0 Iron binding capacity.unsaturated [Mass/volume] in Serum or Plasma 2024-07-07 18:59:22 166 ug/dL F 75.0-360.0 Iron [Mass/volume] in Serum or Plasma 2024-07-07 18:59:22 65 ug/dL F 65.0-175.0 Iron binding capacity.unsaturated [Mass/volume] in Serum or Plasma 2024-07-07 18:59:22 166 ug/dL F 75.0-360.0 HCT CALC HGBX3 2024-07-07 17:23:00 31.5 % F 42.0-52.0 HCT CALC HGBX3 2024-07-07 17:23:00 31.5 % F 42.0-52.0 HCT CALC HGBX3 2024-07-07 17:23:00 31.5 % F 42.0-52.0 Erythrocyte distribution width [Ratio] by Automated count 2024-07-07 17:22:10 13.8 % F 11.0-15.0 Hemoglobin [Mass/volume] in Blood 2024-07-07 17:22:10 10.5 g/dL F 14.0-18.0 Platelets [#/volume] in Blood by Automated count 2024-07-07 17:22:10 200 x 10^3 cells/uL F 140.0-450.0 MCH [Entitic mass] by Automated count 2024-07-07 17:22:10 32.9 pg F 25.9-34.2 MCHC [Mass/volume] by Automated count 2024-07-07 17:22:10 31.7 g/dL F 29.6-35.3 Erythrocytes [#/volume] in Blood by Automated count 2024-07-07 17:22:10 3.2 x 10^6 cells/uL F 4.6-6.2 Hematocrit [Volume Fraction] of Blood by Automated count 2024-07-07 17:22:10 33.2 % F 41.0-53.0 MCV [Entitic volume] by Automated count 2024-07-07 17:22:10 103.7 fL F 80.0-100.0 MCH [Entitic mass] by Automated count 2024-07-07 17:22:10 32.9 pg F 25.9-34.2 Hemoglobin [Mass/volume] in Blood 2024-07-07 17:22:10 10.5 g/dL F 14.0-18.0 Erythrocytes [#/volume] in Blood by Automated count 2024-07-07 17:22:10 3.2 x 10^6 cells/uL F 4.6-6.2 Hematocrit [Volume Fraction] of Blood by Automated count 2024-07-07 17:22:10 33.2 % F 41.0-53.0 Erythrocyte distribution width [Ratio] by Automated count 2024-07-07 17:22:10 13.8 % F 11.0-15.0 Platelets [#/volume] in Blood by Automated count 2024-07-07 17:22:10 200 x 10^3 cells/uL F 140.0-450.0 MCHC [Mass/volume] by Automated count 2024-07-07 17:22:10 31.7 g/dL F 29.6-35.3 MCV [Entitic volume] by Automated count 2024-07-07 17:22:10 103.7 fL F 80.0-100.0 Erythrocyte distribution width [Ratio] by Automated count 2024-07-07 17:22:10 13.8 % F 11.0-15.0 Erythrocytes [#/volume] in Blood by Automated count 2024-07-07 17:22:10 3.2 x 10^6 cells/uL F 4.6-6.2 Hematocrit [Volume Fraction] of Blood by Automated count 2024-07-07 17:22:10 33.2 % F 41.0-53.0 MCV [Entitic volume] by Automated count 2024-07-07 17:22:10 103.7 fL F 80.0-100.0 Hemoglobin [Mass/volume] in Blood 2024-07-07 17:22:10 10.5 g/dL F 14.0-18.0 MCH [Entitic mass] by Automated count 2024-07-07 17:22:10 32.9 pg F 25.9-34.2 Platelets [#/volume] in Blood by Automated count 2024-07-07 17:22:10 200 x 10^3 cells/uL F 140.0-450.0 MCHC [Mass/volume] by Automated count 2024-07-07 17:22:10 31.7 g/dL F 29.6-35.3 HCT CALC HGBX3 2024-06-01 20:02:20 30 % F 42.0-52.0 HCT CALC HGBX3 2024-06-01 20:02:20 30 % F 42.0-52.0 MCHC [Mass/volume] by Automated count 2024-06-01 20:01:14 31.2 g/dL F 29.6-35.3 MCH [Entitic mass] by Automated count 2024-06-01 20:01:14 32.9 pg F 25.9-34.2 Erythrocytes [#/volume] in Blood by Automated count 2024-06-01 20:01:14 3.04 x 10'6 cells/uL F 4.6-6.2 MCV [Entitic volume] by Automated count 2024-06-01 20:01:14 105.6 fL F 80.0-100.0 Erythrocyte distribution width [Ratio] by Automated count 2024-06-01 20:01:14 14.5 % F 11.0-15.0 Hemoglobin [Mass/volume] in Blood 2024-06-01 20:01:14 10 g/dL F 14.0-18.0 Platelets [#/volume] in Blood by Automated count 2024-06-01 20:01:14 190 x 10^3 cells/uL F 140.0-450.0 Hematocrit [Volume Fraction] of Blood by Automated count 2024-06-01 20:01:14 32.1 % F 41.0-53.0 Erythrocyte distribution width [Ratio] by Automated count 2024-06-01 20:01:14 14.5 % F 11.0-15.0 Hemoglobin [Mass/volume] in Blood 2024-06-01 20:01:14 10 g/dL F 14.0-18.0 Platelets [#/volume] in Blood by Automated count 2024-06-01 20:01:14 190 x 10^3 cells/uL F 140.0-450.0 MCH [Entitic mass] by Automated count 2024-06-01 20:01:14 32.9 pg F 25.9-34.2 MCHC [Mass/volume] by Automated count 2024-06-01 20:01:14 31.2 g/dL F 29.6-35.3 Erythrocytes [#/volume] in Blood by Automated count 2024-06-01 20:01:14 3.04 x 10'6 cells/uL F 4.6-6.2 Hematocrit [Volume Fraction] of Blood by Automated count 2024-06-01 20:01:14 32.1 % F 41.0-53.0 MCV [Entitic volume] by Automated count 2024-06-01 20:01:14 105.6 fL F 80.0-100.0 HCT CALC HGBX3 2024-05-04 21:09:23 33.6 % F 42.0-52.0 HCT CALC HGBX3 2024-05-04 21:09:23 33.6 % F 42.0-52.0 Erythrocyte distribution width [Ratio] by Automated count 2024-05-04 21:06:11 14.2 % F 11.0-15.0 Hemoglobin [Mass/volume] in Blood 2024-05-04 21:06:11 11.2 g/dL F 14.0-18.0 Platelets [#/volume] in Blood by Automated count 2024-05-04 21:06:11 192 x 10^3 cells/uL F 140.0-450.0 MCH [Entitic mass] by Automated count 2024-05-04 21:06:11 33.6 pg F 25.9-34.2 MCHC [Mass/volume] by Automated count 2024-05-04 21:06:11 32.2 g/dL F 29.6-35.3 MCV [Entitic volume] by Automated count 2024-05-04 21:06:11 104.5 fL F 80.0-100.0 Erythrocytes [#/volume] in Blood by Automated count 2024-05-04 21:06:11 3.31 x 10'6 cells/uL F 4.6-6.2 Hematocrit [Volume Fraction] of Blood by Automated count 2024-05-04 21:06:11 34.6 % F 41.0-53.0 Erythrocyte distribution width [Ratio] by Automated count 2024-05-04 21:06:11 14.2 % F 11.0-15.0 Platelets [#/volume] in Blood by Automated count 2024-05-04 21:06:11 192 x 10^3 cells/uL F 140.0-450.0 Hemoglobin [Mass/volume] in Blood 2024-05-04 21:06:11 11.2 g/dL F 14.0-18.0 MCH [Entitic mass] by Automated count 2024-05-04 21:06:11 33.6 pg F 25.9-34.2 MCHC [Mass/volume] by Automated count 2024-05-04 21:06:11 32.2 g/dL F 29.6-35.3 Erythrocytes [#/volume] in Blood by Automated count 2024-05-04 21:06:11 3.31 x 10'6 cells/uL F 4.6-6.2 Hematocrit [Volume Fraction] of Blood by Automated count 2024-05-04 21:06:11 34.6 % F 41.0-53.0 MCV [Entitic volume] by Automated count 2024-05-04 21:06:11 104.5 fL F 80.0-100.0 Ferritin [Mass/volume] in Serum or Plasma 2024-04-07 07:30:02 417 ng/mL F 22.0-322.0 HCT CALC HGBX3 2024-04-07 03:20:23 34.8 % F 42.0-52.0 Erythrocyte distribution width [Ratio] by Automated count 2024-04-07 03:20:11 13.6 % F 11.0-15.0 Hemoglobin [Mass/volume] in Blood 2024-04-07 03:20:11 11.6 g/dL F 14.0-18.0 Platelets [#/volume] in Blood by Automated count 2024-04-07 03:20:11 210 x 10^3 cells/uL F 140.0-450.0 MCH [Entitic mass] by Automated count 2024-04-07 03:20:11 32.6 pg F 25.9-34.2 MCHC [Mass/volume] by Automated count 2024-04-07 03:20:11 31.9 g/dL F 29.6-35.3 Hematocrit [Volume Fraction] of Blood by Automated count 2024-04-07 03:20:11 36.3 % F 41.0-53.0 Erythrocytes [#/volume] in Blood by Automated count 2024-04-07 03:20:11 3.55 x 10'6 cells/uL F 4.6-6.2 MCV [Entitic volume] by Automated count 2024-04-07 03:20:11 102.2 fL F 80.0-100.0 IRON SATURATION 2024-04-06 17:52:40 30 % F 21.0-49.0 TIBC 2024-04-06 17:52:40 241 ug/dL F 250.0-425.0 Iron [Mass/volume] in Serum or Plasma 2024-04-06 17:52:08 73 ug/dL F 65.0-175.0 Iron binding capacity.unsaturated [Mass/volume] in Serum or Plasma 2024-04-06 17:52:08 168 ug/dL F 75.0-360.0 HCT CALC HGBX3 2024-03-02 14:37:04 34.2 % F 42.0-52.0 Erythrocyte distribution width [Ratio] by Automated count 2024-03-02 14:36:13 14.9 % F 11.0-15.0 Hemoglobin [Mass/volume] in Blood 2024-03-02 14:36:13 11.4 g/dL F 14.0-18.0 Platelets [#/volume] in Blood by Automated count 2024-03-02 14:36:13 217 x 10^3 cells/uL F 140.0-450.0 MCHC [Mass/volume] by Automated count 2024-03-02 14:36:13 32.5 g/dL F 29.6-35.3 MCH [Entitic mass] by Automated count 2024-03-02 14:36:13 33.7 pg F 25.9-34.2 Erythrocytes [#/volume] in Blood by Automated count 2024-03-02 14:36:13 3.38 x 10'6 cells/uL F 4.6-6.2 Hematocrit [Volume Fraction] of Blood by Automated count 2024-03-02 14:36:13 35.1 % F 41.0-53.0 MCV [Entitic volume] by Automated count 2024-03-02 14:36:13 103.7 fL F 80.0-100.0 HCT CALC HGBX3 2024-02-03 15:00:08 32.7 % F 42.0-52.0 HCT CALC HGBX3 2024-02-03 15:00:08 32.7 % F 42.0-52.0 HCT CALC HGBX3 2024-02-03 15:00:08 32.7 % F 42.0-52.0 Erythrocyte distribution width [Ratio] by Automated count 2024-02-03 14:59:32 14 % F 11.0-15.0 Platelets [#/volume] in Blood by Automated count 2024-02-03 14:59:32 216 x 10^3 cells/uL F 140.0-450.0 MCH [Entitic mass] by Automated count 2024-02-03 14:59:32 32.6 pg F 25.9-34.2 MCHC [Mass/volume] by Automated count 2024-02-03 14:59:32 32.1 g/dL F 29.6-35.3 MCV [Entitic volume] by Automated count 2024-02-03 14:59:32 101.6 fL F 80.0-100.0 Hemoglobin [Mass/volume] in Blood 2024-02-03 14:59:32 10.9 g/dL F 14.0-18.0 Erythrocytes [#/volume] in Blood by Automated count 2024-02-03 14:59:32 3.34 x 10'6 cells/uL F 4.6-6.2 Hematocrit [Volume Fraction] of Blood by Automated count 2024-02-03 14:59:32 33.9 % F 41.0-53.0 Erythrocyte distribution width [Ratio] by Automated count 2024-02-03 14:59:32 14 % F 11.0-15.0 Erythrocytes [#/volume] in Blood by Automated count 2024-02-03 14:59:32 3.34 x 10'6 cells/uL F 4.6-6.2 Hematocrit [Volume Fraction] of Blood by Automated count 2024-02-03 14:59:32 33.9 % F 41.0-53.0 MCV [Entitic volume] by Automated count 2024-02-03 14:59:32 101.6 fL F 80.0-100.0 Hemoglobin [Mass/volume] in Blood 2024-02-03 14:59:32 10.9 g/dL F 14.0-18.0 MCHC [Mass/volume] by Automated count 2024-02-03 14:59:32 32.1 g/dL F 29.6-35.3 Platelets [#/volume] in Blood by Automated count 2024-02-03 14:59:32 216 x 10^3 cells/uL F 140.0-450.0 MCH [Entitic mass] by Automated count 2024-02-03 14:59:32 32.6 pg F 25.9-34.2 Erythrocyte distribution width [Ratio] by Automated count 2024-02-03 14:59:32 14 % F 11.0-15.0 Platelets [#/volume] in Blood by Automated count 2024-02-03 14:59:32 216 x 10^3 cells/uL F 140.0-450.0 Hemoglobin [Mass/volume] in Blood 2024-02-03 14:59:32 10.9 g/dL F 14.0-18.0 MCH [Entitic mass] by Automated count 2024-02-03 14:59:32 32.6 pg F 25.9-34.2 MCHC [Mass/volume] by Automated count 2024-02-03 14:59:32 32.1 g/dL F 29.6-35.3 Hematocrit [Volume Fraction] of Blood by Automated count 2024-02-03 14:59:32 33.9 % F 41.0-53.0 Erythrocytes [#/volume] in Blood by Automated count 2024-02-03 14:59:32 3.34 x 10'6 cells/uL F 4.6-6.2 MCV [Entitic volume] by Automated count 2024-02-03 14:59:32 101.6 fL F 80.0-100.0 Ferritin [Mass/volume] in Serum or Plasma 2023-12-31 [...] HGBX3 2023-12-30 16:06:29 34.5 % F 42.0-52.0 Hemoglobin [Mass/volume] in Blood 2023-12-30 16:05:32 11.5 g/dL F 14.0-18.0 Hematocrit [Volume Fraction] of Blood by Automated count 2023-12-30 16:05:32 35.7 % F 41.0-53.0 Platelets [#/volume] in Blood by Automated count 2023-12-30 16:05:32 211 x 10^3 cells/uL F 140.0-450.0 Erythrocyte distribution width [Ratio] by Automated count 2023-12-30 16:05:32 14.1 % F 11.0-15.0 MCHC [Mass/volume] by Automated count 2023-12-30 16:05:32 32.1 g/dL F 29.6-35.3 MCV [Entitic volume] by Automated count 2023-12-30 16:05:32 103.9 fL F 80.0-100.0 MCH [Entitic mass] by Automated count 2023-12-30 16:05:32 33.4 pg F 25.9-34.2 Erythrocytes [#/volume] in Blood by Automated count 2023-12-30 16:05:32 3.44 x 10'6 cells/uL F 4.6-6.2 Erythrocyte distribution width [Ratio] by Automated count 2023-12-30 16:05:32 14.1 % F 11.0-15.0 Hemoglobin [Mass/volume] in Blood 2023-12-30 16:05:32 11.5 g/dL F 14.0-18.0 Platelets [#/volume] in Blood by Automated count 2023-12-30 16:05:32 211 x 10^3 cells/uL F 140.0-450.0 MCH [Entitic mass] by Automated count 2023-12-30 16:05:32 33.4 pg F 25.9-34.2 MCHC [Mass/volume] by Automated count 2023-12-30 16:05:32 32.1 g/dL F 29.6-35.3 Hematocrit [Volume Fraction] of Blood by Automated count 2023-12-30 16:05:32 35.7 % F 41.0-53.0 Erythrocytes [#/volume] in Blood by Automated count 2023-12-30 16:05:32 3.44 x 10'6 cells/uL F 4.6-6.2 MCV [Entitic volume] by Automated count 2023-12-30 16:05:32 103.9 fL F 80.0-100.0 HCT CALC HGBX3 2023-12-02 22:00:58 34.2 % F 42.0-52.0 Erythrocyte distribution width [Ratio] by Automated count 2023-12-02 22:00:25 13.2 % F 11.0-15.0 Hemoglobin [Mass/volume] in Blood 2023-12-02 22:00:25 11.4 g/dL F 14.0-18.0 Platelets [#/volume] in Blood by Automated count 2023-12-02 22:00:25 215 x 10^3 cells/uL F 140.0-450.0 MCHC [Mass/volume] by Automated count 2023-12-02 22:00:25 33 g/dL F 29.6-35.3 MCH [Entitic mass] by Automated count 2023-12-02 22:00:25 33.7 pg F 25.9-34.2 Erythrocytes [#/volume] in Blood by Automated count 2023-12-02 22:00:25 3.37 x 10'6 cells/uL F 4.6-6.2 Hematocrit [Volume Fraction] of Blood by Automated count 2023-12-02 22:00:25 34.4 % F 41.0-53.0 MCV [Entitic volume] by Automated count 2023-12-02 22:00:25 102.1 fL F 80.0-100.0 HCT CALC HGBX3 2023-11-04 17:07:38 32.4 % F 42.0-52.0 HCT CALC HGBX3 2023-11-04 17:07:38 32.4 % F 42.0-52.0 MCHC [Mass/volume] by Automated count 2023-11-04 17:07:28 32.1 g/dL F 29.6-35.3 MCV [Entitic volume] by Automated count 2023-11-04 17:07:28 105.7 fL F 80.0-100.0 Erythrocyte distribution width [Ratio] by Automated count 2023-11-04 17:07:28 13.9 % F 11.0-15.0 Hematocrit [Volume Fraction] of Blood by Automated count 2023-11-04 17:07:28 33.8 % F 41.0-53.0 Hemoglobin [Mass/volume] in Blood 2023-11-04 17:07:28 10.8 g/dL F 14.0-18.0 Platelets [#/volume] in Blood by Automated count 2023-11-04 17:07:28 221 x 10^3 cells/uL F 140.0-450.0 MCH [Entitic mass] by Automated count 2023-11-04 17:07:28 33.9 pg F 25.9-34.2 Erythrocytes [#/volume] in Blood by Automated count 2023-11-04 17:07:28 3.2 x 10'6 cells/uL F 4.6-6.2 Erythrocyte distribution width [Ratio] by Automated count 2023-11-04 17:07:28 13.9 % F 11.0-15.0 Hemoglobin [Mass/volume] in Blood 2023-11-04 17:07:28 10.8 g/dL F 14.0-18.0 Platelets [#/volume] in Blood by Automated count 2023-11-04 17:07:28 221 x 10^3 cells/uL F 140.0-450.0 MCH [Entitic mass] by Automated count 2023-11-04 17:07:28 33.9 pg F 25.9-34.2 MCHC [Mass/volume] by Automated count 2023-11-04 17:07:28 32.1 g/dL F 29.6-35.3 Erythrocytes [#/volume] in Blood by Automated count 2023-11-04 17:07:28 3.2 x 10'6 cells/uL F 4.6-6.2 Hematocrit [Volume Fraction] of Blood by Automated count 2023-11-04 17:07:28 33.8 % F 41.0-53.0 MCV [Entitic volume] by Automated count 2023-11-04 17:07:28 105.7 fL F 80.0-100.0 Ferritin [Mass/volume] in Serum or Plasma 2023-10-01 [...] 20:21:42 256 x 10^3 cells/uL F 140.0-450.0 Hemoglobin [Mass/volume] in Blood 2023-09-30 20:21:40 11.3 g/dL F 14.0-18.0 MCH [Entitic mass] by Automated count 2023-09-30 20:21:40 33.2 pg F 25.9-34.2 MCHC [Mass/volume] by Automated count 2023-09-30 20:21:40 31.8 g/dL F 29.6-35.3 Erythrocytes [#/volume] in Blood by Automated count 2023-09-30 20:21:40 3.42 x 10'6 cells/uL F 4.6-6.2 Hematocrit [Volume Fraction] of Blood by Automated count 2023-09-30 20:21:40 35.7 % F 41.0-53.0 MCV [Entitic volume] by Automated count 2023-09-30 20:21:40 104.4 fL F 80.0-100.0 HCT CALC HGBX3 2023-09-02 21:25:00 35.7 % F 42.0-52.0 Erythrocyte distribution width [Ratio] by Automated count 2023-09-02 21:24:27 15.8 % F 11.0-15.0 Hemoglobin [Mass/volume] in Blood 2023-09-02 21:24:27 11.9 g/dL F 14.0-18.0 Platelets [#/volume] in Blood by Automated count 2023-09-02 21:24:27 323 x 10^3 cells/uL F 140.0-450.0 MCH [Entitic mass] by Automated count 2023-09-02 21:24:27 32.8 pg F 25.9-34.2 MCHC [Mass/volume] by Automated count 2023-09-02 21:24:27 30.5 g/dL F 29.6-35.3 Erythrocytes [#/volume] in Blood by Automated count 2023-09-02 21:24:27 3.64 x 10'6 cells/uL F 4.6-6.2 Hematocrit [Volume Fraction] of Blood by Automated count 2023-09-02 21:24:27 39.1 % F 41.0-53.0 MCV [Entitic volume] by Automated count 2023-09-02 21:24:27 107.5 fL F 80.0-100.0 Ferritin [Mass/volume] in Serum or Plasma 2023-08-13 06:39:51 415 ng/mL F 22.0-322.0 Ferritin [Mass/volume] in Serum or Plasma 2023-08-13 06:39:51 415 ng/mL F 22.0-322.0 IRON SATURATION 2023-08-13 06:14:20 26 % F 21.0-49.0 TIBC 2023-08-13 06:14:20 222 ug/dL F 250.0-425.0 IRON SATURATION 2023-08-13 06:14:20 26 % F 21.0-49.0 TIBC 2023-08-13 06:14:20 222 ug/dL F 250.0-425.0 Iron [Mass/volume] in Serum or Plasma 2023-08-13 06:06:30 58 ug/dL F 65.0-175.0 Iron binding capacity.unsaturated [Mass/volume] in Serum or Plasma 2023-08-13 06:06:30 164 ug/dL F 75.0-360.0 Iron binding capacity.unsaturated [Mass/volume] in Serum or Plasma 2023-08-13 06:06:30 164 ug/dL F 75.0-360.0 Iron [Mass/volume] in Serum or Plasma 2023-08-13 06:06:30 58 ug/dL F 65.0-175.0 HCT CALC HGBX3 2023-08-12 20:02:10 35.1 % F 42.0-52.0 HCT CALC HGBX3 2023-08-12 20:02:10 35.1 % F 42.0-52.0 Hemoglobin [Mass/volume] in Blood 2023-08-12 20:01:57 11.7 g/dL F 14.0-18.0 Hemoglobin [Mass/volume] in Blood 2023-08-12 20:01:57 11.7 g/dL F 14.0-18.0 HCT CALC HGBX3 2023-08-05 16:31:52 37.2 % F 42.0-52.0 HCT CALC HGBX3 2023-08-05 16:31:52 37.2 % F 42.0-52.0 Platelets [#/volume] in Blood by Automated count 2023-08-05 16:31:50 240 x 10^3 cells/uL F 140.0-450.0 Platelets [#/volume] in Blood by Automated count 2023-08-05 16:31:50 240 x 10^3 cells/uL F 140.0-450.0 Erythrocyte distribution width [Ratio] by Automated count 2023-08-05 16:31:48 16.8 % F 11.0-15.0 MCH [Entitic mass] by Automated count 2023-08-05 16:31:48 32.6 pg F 25.9-34.2 MCHC [Mass/volume] by Automated count 2023-08-05 16:31:48 30.8 g/dL F 29.6-35.3 MCV [Entitic volume] by Automated count 2023-08-05 16:31:48 105.7 fL F 80.0-100.0 Erythrocyte distribution width [Ratio] by Automated count [...] 17:31:40 203 x 10^3 cells/uL F 140.0-450.0 Erythrocyte distribution width [Ratio] by Automated count 2023-07-31 17:31:40 16.1 % F 11.0-15.0 Platelets [#/volume] in Blood by Automated count 2023-07-31 17:31:40 203 x 10^3 cells/uL F 140.0-450.0 MCHC [Mass/volume] by Automated count 2023-07-31 17:31:37 30 g/dL F 29.6-35.3 MCH [Entitic mass] by Automated count 2023-07-31 17:31:37 32.3 pg F 25.9-34.2 MCV [Entitic volume] by Automated count 2023-07-31 17:31:37 107.4 fL F 80.0-100.0 MCH [Entitic mass] by Automated count 2023-07-31 17:31:37 32.3 pg F 25.9-34.2 MCHC [Mass/volume] by Automated count 2023-07-31 17:31:37 30 g/dL F 29.6-35.3 MCV [Entitic volume] by Automated count 2023-07-31 17:31:37 107.4 fL F 80.0-100.0 Hemoglobin [Mass/volume] in Blood 2023-07-31 17:31:35 12.4 g/dL F 14.0-18.0 Erythrocytes [#/volume] in Blood by Automated count 2023-07-31 17:31:35 3.86 x 10'6 cells/uL F 4.6-6.2 Hematocrit [Volume Fraction] of Blood by Automated count 2023-07-31 17:31:35 41.4 % F 41.0-53.0 Hemoglobin [Mass/volume] in Blood 2023-07-31 17:31:35 12.4 g/dL F 14.0-18.0 Erythrocytes [#/volume] in Blood by Automated count 2023-07-31 17:31:35 3.86 x 10'6 cells/uL F 4.6-6.2 Hematocrit [Volume Fraction] of Blood by Automated count 2023-07-31 17:31:35 41.4 % F 41.0-53.0 HCT CALC HGBX3 2023-07-10 19:56:08 36.3 % F 42.0-52.0 Reticulocytes/100 erythrocytes in Blood by Automated count 2023-07-10 19:55:28 2.08 % F 0.7-2.5 Erythrocyte distribution width [Ratio] by Automated count 2023-07-10 19:55:28 17.1 % F 11.0-15.0 Hemoglobin [Mass/volume] in Blood 2023-07-10 19:55:28 12.1 g/dL F 14.0-18.0 Platelets [#/volume] in Blood by Automated count 2023-07-10 19:55:28 300 x 10^3 cells/uL F 140.0-450.0 MCH [Entitic mass] by Automated count 2023-07-10 19:55:28 32.3 pg F 25.9-34.2 MCHC [Mass/volume] by Automated count 2023-07-10 19:55:28 30.6 g/dL F 29.6-35.3 Erythrocytes [#/volume] in Blood by Automated count 2023-07-10 19:55:28 3.74 x 10'6 cells/uL F 4.6-6.2 Hematocrit [Volume Fraction] of Blood by Automated count 2023-07-10 19:55:28 39.4 % F 41.0-53.0 MCV [Entitic volume] by Automated count 2023-07-10 19:55:28 105.5 fL F 80.0-100.0 IRON SATURATION 2023-05-30 04:15:51 20 % F 21.0-49.0 TIBC 2023-05-30 04:15:51 256 ug/dL F 250.0-425.0 Iron [Mass/volume] in Serum or Plasma 2023-05-30 04:14:20 50 ug/dL F 65.0-175.0 Iron binding capacity.unsaturated [Mass/volume] in Serum or Plasma 2023-05-30 04:14:20 206 ug/dL F 75.0-360.0 Ferritin [Mass/volume] in Serum or Plasma 2023-05-29 17:25:56 195 ng/mL F 22.0-322.0 HCT CALC HGBX3 2023-05-29 16:27:11 34.5 % F 42.0-52.0 Reticulocytes/100 erythrocytes in Blood by Automated count 2023-05-29 16:26:37 1.92 % F 0.7-2.5 Erythrocyte distribution width [Ratio] by Automated count 2023-05-29 16:26:37 15.9 % F 11.0-15.0 Hemoglobin [Mass/volume] in Blood 2023-05-29 16:26:37 11.5 g/dL F 14.0-18.0 Platelets [#/volume] in Blood by Automated count 2023-05-29 16:26:37 153 x 10^3 cells/uL F 140.0-450.0 MCH [Entitic mass] by Automated count 2023-05-29 16:26:37 31.5 pg F 25.9-34.2 MCHC [Mass/volume] by Automated count 2023-05-29 16:26:37 30.8 g/dL F 29.6-35.3 Erythrocytes [#/volume] in Blood by Automated count 2023-05-29 16:26:37 3.64 x 10'6 cells/uL F 4.6-6.2 Hematocrit [Volume Fraction] of Blood by Automated count 2023-05-29 16:26:37 37.2 % F 41.0-53.0 MCV [Entitic volume] by Automated count 2023-05-29 16:26:37 102.1 fL F 80.0-100.0 HCT CALC HGBX3 2023-04-24 19:27:42 36.9 % F 42.0-52.0 HCT CALC HGBX3 2023-04-24 19:27:42 36.9 % F 42.0-52.0 MCHC [Mass/volume] by Automated count 2023-04-24 19:27:32 30.1 g/dL F 29.6-35.3 Hematocrit [Volume Fraction] of Blood by Automated count 2023-04-24 19:27:32 40.8 % F 41.0-53.0 Reticulocytes/100 erythrocytes in Blood by Automated count 2023-04-24 19:27:32 3.7 % F 0.7-2.5 Erythrocyte distribution width [Ratio] by Automated count 2023-04-24 19:27:32 16.1 % F 11.0-15.0 Platelets [#/volume] in Blood by Automated count 2023-04-24 19:27:32 185 x 10^3 cells/uL F 140.0-450.0 MCH [Entitic mass] by Automated count 2023-04-24 19:27:32 30.5 pg F 25.9-34.2 MCV [Entitic volume] by Automated count 2023-04-24 19:27:32 101.1 fL F 80.0-100.0 Hemoglobin [Mass/volume] in Blood 2023-04-24 19:27:32 12.3 g/dL F 14.0-18.0 Erythrocytes [#/volume] in Blood by Automated count 2023-04-24 19:27:32 4.04 x 10'6 cells/uL F 4.6-6.2 Reticulocytes/100 erythrocytes in Blood by Automated count 2023-04-24 19:27:32 3.7 % F 0.7-2.5 Erythrocyte distribution width [Ratio] by Automated count 2023-04-24 19:27:32 16.1 % F 11.0-15.0 Hemoglobin [Mass/volume] in Blood 2023-04-24 19:27:32 12.3 g/dL F 14.0-18.0 Platelets [#/volume] in Blood by Automated count 2023-04-24 19:27:32 185 x 10^3 cells/uL F 140.0-450.0 MCH [Entitic mass] by Automated count 2023-04-24 19:27:32 30.5 pg F 25.9-34.2 MCHC [Mass/volume] by Automated count 2023-04-24 19:27:32 30.1 g/dL F 29.6-35.3 Erythrocytes [#/volume] in Blood by Automated count 2023-04-24 19:27:32 4.04 x 10'6 cells/uL F 4.6-6.2 Hematocrit [Volume Fraction] of Blood by Automated count 2023-04-24 19:27:32 40.8 % F 41.0-53.0 MCV [Entitic volume] by Automated count 2023-04-24 19:27:32 101.1 fL F 80.0-100.0 HCT CALC HGBX3 2023-03-27 18:54:37 33.6 % [...] count 2023-03-27 18:54:32 2.04 % F 0.7-2.5 Erythrocyte distribution width [Ratio] by Automated count 2023-03-27 18:54:30 15.3 % F 11.0-15.0 Platelets [#/volume] in Blood by Automated count 2023-03-27 18:54:30 175 x 10^3 cells/uL F 140.0-450.0 Hemoglobin [Mass/volume] in Blood 2023-03-27 18:54:30 11.2 g/dL F 14.0-18.0 MCH [Entitic mass] by Automated count 2023-03-27 18:54:30 29.8 pg F 25.9-34.2 MCHC [Mass/volume] by Automated count 2023-03-27 18:54:30 30.2 g/dL F 29.6-35.3 Hematocrit [Volume Fraction] of Blood by Automated count 2023-03-27 18:54:30 37.2 % F 41.0-53.0 MCV [Entitic volume] by Automated count 2023-03-27 18:54:30 98.7 fL F 80.0-100.0 Erythrocyte distribution width [Ratio] by Automated count 2023-03-27 18:54:30 15.3 % F 11.0-15.0 Hemoglobin [Mass/volume] in Blood 2023-03-27 18:54:30 11.2 g/dL F 14.0-18.0 Platelets [#/volume] in Blood by Automated count 2023-03-27 18:54:30 175 x 10^3 cells/uL F 140.0-450.0 MCH [Entitic mass] by Automated count 2023-03-27 18:54:30 29.8 pg F 25.9-34.2 MCHC [Mass/volume] by Automated count 2023-03-27 18:54:30 30.2 g/dL F 29.6-35.3 Hematocrit [Volume Fraction] of Blood by Automated count 2023-03-27 18:54:30 37.2 % F 41.0-53.0 MCV [Entitic volume] by Automated count 2023-03-27 18:54:30 98.7 fL F 80.0-100.0 Erythrocyte distribution width [Ratio] by Automated count 2023-03-27 18:54:30 15.3 % F 11.0-15.0 Hemoglobin [Mass/volume] in Blood 2023-03-27 18:54:30 11.2 g/dL F 14.0-18.0 Hematocrit [Volume Fraction] of Blood by Automated count 2023-03-27 18:54:30 37.2 % F 41.0-53.0 MCV [Entitic volume] by Automated count 2023-03-27 18:54:30 98.7 fL F 80.0-100.0 MCH [Entitic mass] by Automated count 2023-03-27 18:54:30 29.8 pg F 25.9-34.2 MCHC [Mass/volume] by Automated count 2023-03-27 18:54:30 30.2 g/dL F 29.6-35.3 Platelets [#/volume] in Blood by Automated count 2023-03-27 18:54:30 175 x 10^3 cells/uL F 140.0-450.0 HCT CALC HGBX3 2023-02-28 01:11:22 33 % F 42.0-52.0 HCT CALC HGBX3 2023-02-28 01:11:22 33 % F 42.0-52.0 Reticulocytes/100 erythrocytes in Blood by Automated count 2023-02-28 01:10:33 1.9 % F 0.7-2.5 Erythrocyte distribution width [Ratio] by Automated count 2023-02-28 01:10:33 14.6 % F 11.0-15.0 Hemoglobin [Mass/volume] in Blood 2023-02-28 01:10:33 11 g/dL F 14.0-18.0 Platelets [#/volume] in Blood by Automated count 2023-02-28 01:10:33 210 x 10^3 cells/uL F 140.0-450.0 MCH [Entitic mass] by Automated count 2023-02-28 01:10:33 29.8 pg F 25.9-34.2 MCHC [Mass/volume] by Automated count 2023-02-28 01:10:33 29.9 g/dL F 29.6-35.3 Erythrocytes [#/volume] in Blood by Automated count 2023-02-28 01:10:33 3.7 x 10'6 cells/uL F 4.6-6.2 Hematocrit [Volume Fraction] of Blood by Automated count 2023-02-28 01:10:33 36.9 % F 41.0-53.0 MCV [Entitic volume] by Automated count 2023-02-28 01:10:33 99.6 fL F 80.0-100.0 Reticulocytes/100 erythrocytes in Blood by Automated count 2023-02-28 01:10:33 1.9 % F 0.7-2.5 Hemoglobin [Mass/volume] in Blood 2023-02-28 01:10:33 11 g/dL F 14.0-18.0 Erythrocytes [#/volume] in Blood by Automated count 2023-02-28 01:10:33 3.7 x 10'6 cells/uL F 4.6-6.2 MCH [Entitic mass] by Automated count 2023-02-28 01:10:33 29.8 pg F 25.9-34.2 MCHC [Mass/volume] by Automated count 2023-02-28 01:10:33 29.9 g/dL F 29.6-35.3 Hematocrit [Volume Fraction] of Blood by Automated count 2023-02-28 01:10:33 36.9 % F 41.0-53.0 Platelets [#/volume] in Blood by Automated count 2023-02-28 01:10:33 210 x 10^3 cells/uL F 140.0-450.0 Erythrocyte distribution width [Ratio] by Automated count 2023-02-28 01:10:33 14.6 % F 11.0-15.0 MCV [Entitic volume] by Automated count 2023-02-28 01:10:33 99.6 fL F 80.0-100.0 IRON SATURATION 2023-01-31 05:39:38 14 % F [...] count 2023-01-30 17:30:41 2.48 % F 0.7-2.5 Erythrocyte distribution width [Ratio] by Automated count 2023-01-30 17:30:41 15 % F 11.0-15.0 Hemoglobin [Mass/volume] in Blood 2023-01-30 17:30:41 10 g/dL F 14.0-18.0 Platelets [#/volume] in Blood by Automated count 2023-01-30 17:30:41 200 x 10^3 cells/uL F 140.0-450.0 MCH [Entitic mass] by Automated count 2023-01-30 17:30:41 31.8 pg F 25.9-34.2 MCHC [Mass/volume] by Automated count 2023-01-30 17:30:41 31.5 g/dL F 29.6-35.3 Erythrocytes [#/volume] in Blood by Automated count 2023-01-30 17:30:41 3.15 x 10'6 cells/uL F 4.6-6.2 Hematocrit [Volume Fraction] of Blood by Automated count 2023-01-30 17:30:41 31.8 % F 41.0-53.0 MCV [Entitic volume] by Automated count 2023-01-30 17:30:41 101 fL F 80.0-100.0 Reticulocytes/100 erythrocytes in Blood by Automated count 2023-01-30 17:30:41 2.48 % F 0.7-2.5 MCH [Entitic mass] by Automated count 2023-01-30 17:30:41 31.8 pg F 25.9-34.2 MCHC [Mass/volume] by Automated count 2023-01-30 17:30:41 31.5 g/dL F 29.6-35.3 MCV [Entitic volume] by Automated count 2023-01-30 17:30:41 101 fL F 80.0-100.0 Erythrocyte distribution width [Ratio] by Automated count 2023-01-30 17:30:41 15 % F 11.0-15.0 Hemoglobin [Mass/volume] in Blood 2023-01-30 17:30:41 10 g/dL F 14.0-18.0 Erythrocytes [#/volume] in Blood by Automated count 2023-01-30 17:30:41 3.15 x 10'6 cells/uL F 4.6-6.2 Platelets [#/volume] in Blood by Automated count 2023-01-30 17:30:41 200 x 10^3 cells/uL F 140.0-450.0 Hematocrit [Volume Fraction] of Blood by Automated count 2023-01-30 17:30:41 31.8 % F 41.0-53.0 IRON SATURATION 2022-12-20 19:03:25 7 % F [...] count 2022-12-19 23:37:26 2.22 % F 0.7-2.5 Erythrocyte distribution width [Ratio] by Automated count 2022-12-19 23:37:26 14.8 % F 11.0-15.0 Hemoglobin [Mass/volume] in Blood 2022-12-19 23:37:26 9.3 g/dL F 14.0-18.0 Platelets [#/volume] in Blood by Automated count 2022-12-19 23:37:26 178 x 10^3 cells/uL F 140.0-450.0 MCH [Entitic mass] by Automated count 2022-12-19 23:37:26 31.4 pg F 25.9-34.2 MCHC [Mass/volume] by Automated count 2022-12-19 23:37:26 30.5 g/dL F 29.6-35.3 Erythrocytes [#/volume] in Blood by Automated count 2022-12-19 23:37:26 2.97 x 10'6 cells/uL F 4.6-6.2 Hematocrit [Volume Fraction] of Blood by Automated count 2022-12-19 23:37:26 30.6 % F 41.0-53.0 MCV [Entitic volume] by Automated count 2022-12-19 23:37:26 102.9 fL F 80.0-100.0 IRON SATURATION 2022-08-06 18:22:57 26 % F 21.0-49.0 TIBC 2022-08-06 18:22:57 237 ug/dL F 250.0-425.0 HCT CALC HGBX3 2022-08-06 18:22:57 32.4 % F 42.0-52.0 IRON SATURATION 2022-08-06 18:22:57 26 % F 21.0-49.0 TIBC 2022-08-06 18:22:57 237 ug/dL F 250.0-425.0 HCT CALC HGBX3 2022-08-06 18:22:57 32.4 % F 42.0-52.0 Reticulocytes/100 erythrocytes in Blood by Automated count 2022-08-06 18:21:55 1.27 % F 0.8-2.1 Erythrocyte distribution width [Ratio] by Automated count 2022-08-06 18:21:55 13.3 % F 11.0-15.0 Hemoglobin [Mass/volume] in Blood 2022-08-06 18:21:55 10.8 g/dL F 14.0-18.0 Platelets [#/volume] in Blood by Automated count 2022-08-06 18:21:55 261 x 10^3 cells/uL F 150.0-400.0 MCH [Entitic mass] by Automated count 2022-08-06 18:21:55 32.3 pg F 27.0-31.0 MCHC [Mass/volume] by Automated count 2022-08-06 18:21:55 31.4 g/dL F 32.0-36.0 Erythrocytes [#/volume] in Blood by Automated count 2022-08-06 18:21:55 3.35 x 10'6 cells/uL F 4.6-6.2 Hematocrit [Volume Fraction] of Blood by Automated count 2022-08-06 18:21:55 34.4 % F 42.0-52.0 MCV [Entitic volume] by Automated count 2022-08-06 18:21:55 102.8 fL F 80.0-100.0 Hemoglobin [Mass/volume] in Blood 2022-08-06 18:21:55 10.8 g/dL F 14.0-18.0 Hematocrit [Volume Fraction] of Blood by Automated count 2022-08-06 18:21:55 34.4 % F 42.0-52.0 Reticulocytes/100 erythrocytes in Blood by Automated count 2022-08-06 18:21:55 1.27 % F 0.8-2.1 Erythrocyte distribution width [Ratio] by Automated count 2022-08-06 18:21:55 13.3 % F 11.0-15.0 Platelets [#/volume] in Blood by Automated count 2022-08-06 18:21:55 261 x 10^3 cells/uL F 150.0-400.0 MCV [Entitic volume] by Automated count 2022-08-06 18:21:55 102.8 fL F 80.0-100.0 MCH [Entitic mass] by Automated count 2022-08-06 18:21:55 32.3 pg F 27.0-31.0 MCHC [Mass/volume] by Automated count 2022-08-06 18:21:55 31.4 g/dL F 32.0-36.0 Erythrocytes [#/volume] in Blood by Automated count 2022-08-06 18:21:55 3.35 x 10'6 cells/uL F 4.6-6.2 Iron binding capacity.unsaturated [Mass/volume] in Serum or Plasma 2022-08-06 17:43:59 176 ug/dL F 75.0-360.0 Iron [Mass/volume] in Serum or Plasma 2022-08-06 17:43:59 61 ug/dL F 65.0-175.0 Iron binding capacity.unsaturated [Mass/volume] in Serum or Plasma 2022-08-06 17:43:59 176 ug/dL F 75.0-360.0 Iron [Mass/volume] in Serum or Plasma 2022-08-06 17:43:59 61 ug/dL F 65.0-175.0 Ferritin [Mass/volume] in Serum or Plasma 2022-08-06 15:23:53 113 ng/mL F 22.0-322.0 Ferritin [Mass/volume] in Serum or Plasma 2022-08-06 15:23:53 113 ng/mL F 22.0-322.0 HCT CALC HGBX3 2022-06-27 18:18:18 32.1 % F 42.0-52.0 HCT CALC HGBX3 2022-06-27 18:18:18 32.1 % F 42.0-52.0 HCT CALC HGBX3 2022-06-27 18:18:18 32.1 % F 42.0-52.0 Reticulocytes/100 erythrocytes in Blood by Automated count 2022-06-27 18:17:58 1.51 % F 0.8-2.1 Erythrocyte distribution width [Ratio] by Automated count 2022-06-27 18:17:58 14.4 % F 11.0-15.0 Hemoglobin [Mass/volume] in Blood 2022-06-27 18:17:58 10.7 g/dL F 14.0-18.0 Platelets [#/volume] in Blood by Automated count 2022-06-27 18:17:58 327 x 10^3 cells/uL F 150.0-400.0 MCH [Entitic mass] by Automated count 2022-06-27 18:17:58 33.2 pg F 27.0-31.0 MCHC [Mass/volume] by Automated count 2022-06-27 18:17:58 33 g/dL F 32.0-36.0 Erythrocytes [#/volume] in Blood by Automated count 2022-06-27 18:17:58 3.24 x 10'6 cells/uL F 4.6-6.2 Hematocrit [Volume Fraction] of Blood by Automated count 2022-06-27 18:17:58 32.5 % F 42.0-52.0 MCV [Entitic volume] by Automated count 2022-06-27 18:17:58 100.4 fL F 80.0-100.0 Hemoglobin [Mass/volume] in Blood 2022-06-27 18:17:58 10.7 g/dL F 14.0-18.0 Platelets [#/volume] in Blood by Automated count 2022-06-27 18:17:58 327 x 10^3 cells/uL F 150.0-400.0 Erythrocytes [#/volume] in Blood by Automated count 2022-06-27 18:17:58 3.24 x 10'6 cells/uL F 4.6-6.2 Hematocrit [Volume Fraction] of Blood by Automated count 2022-06-27 18:17:58 32.5 % F 42.0-52.0 Reticulocytes/100 erythrocytes in Blood by Automated count 2022-06-27 18:17:58 1.51 % F 0.8-2.1 MCH [Entitic mass] by Automated count 2022-06-27 18:17:58 33.2 pg F 27.0-31.0 Erythrocyte distribution width [Ratio] by Automated count 2022-06-27 18:17:58 14.4 % F 11.0-15.0 MCHC [Mass/volume] by Automated count 2022-06-27 18:17:58 33 g/dL F 32.0-36.0 MCV [Entitic volume] by Automated count 2022-06-27 18:17:58 100.4 fL F 80.0-100.0 Erythrocyte distribution width [Ratio] by Automated count 2022-06-27 18:17:58 14.4 % F 11.0-15.0 Erythrocytes [#/volume] in Blood by Automated count 2022-06-27 18:17:58 3.24 x 10'6 cells/uL F 4.6-6.2 Hematocrit [Volume Fraction] of Blood by Automated count 2022-06-27 18:17:58 32.5 % F 42.0-52.0 Hemoglobin [Mass/volume] in Blood 2022-06-27 18:17:58 10.7 g/dL F 14.0-18.0 MCV [Entitic volume] by Automated count 2022-06-27 18:17:58 100.4 fL F 80.0-100.0 MCH [Entitic mass] by Automated count 2022-06-27 18:17:58 33.2 pg F 27.0-31.0 MCHC [Mass/volume] by Automated count 2022-06-27 18:17:58 33 g/dL F 32.0-36.0 Platelets [#/volume] in Blood by Automated count 2022-06-27 18:17:58 327 x 10^3 cells/uL F 150.0-400.0 Reticulocytes/100 erythrocytes in Blood by Automated count 2022-06-27 18:17:58 1.51 % F 0.8-2.1 HCT CALC HGBX3 2022-05-24 00:54:25 29.7 % F 42.0-52.0 HCT CALC HGBX3 2022-05-24 00:54:25 29.7 % F 42.0-52.0 Reticulocytes/100 erythrocytes in Blood by Automated count 2022-05-24 00:53:33 1.69 % F 0.8-2.1 Erythrocyte distribution width [Ratio] by Automated count 2022-05-24 00:53:33 14.8 % F 11.0-15.0 Hemoglobin [Mass/volume] in Blood 2022-05-24 00:53:33 9.9 g/dL F 14.0-18.0 Platelets [#/volume] in Blood by Automated count 2022-05-24 00:53:33 301 x 10^3 cells/uL F 150.0-400.0 MCH [Entitic mass] by Automated count 2022-05-24 00:53:33 33.1 pg F 27.0-31.0 MCHC [Mass/volume] by Automated count 2022-05-24 00:53:33 32.2 g/dL F 32.0-36.0 Erythrocytes [#/volume] in Blood by Automated count 2022-05-24 00:53:33 3 x 10'6 cells/uL F 4.6-6.2 Hematocrit [Volume Fraction] of Blood by Automated count 2022-05-24 00:53:33 30.7 % F 42.0-52.0 MCV [Entitic volume] by Automated count 2022-05-24 00:53:33 102.6 fL F 80.0-100.0 Erythrocyte distribution width [Ratio] by Automated count 2022-05-24 00:53:33 14.8 % F 11.0-15.0 Reticulocytes/100 erythrocytes in Blood by Automated count 2022-05-24 00:53:33 1.69 % F 0.8-2.1 Platelets [#/volume] in Blood by Automated count 2022-05-24 00:53:33 301 x 10^3 cells/uL F 150.0-400.0 MCH [Entitic mass] by Automated count 2022-05-24 00:53:33 33.1 pg F 27.0-31.0 MCHC [Mass/volume] by Automated count 2022-05-24 00:53:33 32.2 g/dL F 32.0-36.0 Erythrocytes [#/volume] in Blood by Automated count 2022-05-24 00:53:33 3 x 10'6 cells/uL F 4.6-6.2 MCV [Entitic volume] by Automated count 2022-05-24 00:53:33 102.6 fL F 80.0-100.0 Hemoglobin [Mass/volume] in Blood 2022-05-24 00:53:33 9.9 g/dL F 14.0-18.0 Hematocrit [Volume Fraction] of Blood by Automated count 2022-05-24 00:53:33 30.7 % F 42.0-52.0 IRON SATURATION 2022-05-24 00:19:00 12 % F [...] Plasma 2022-05-23 23:31:32 246 ug/dL F 75.0-360.0 IRON SATURATION TIBC Iron [Mass/volume] in Serum or Plasma Iron binding capacity.unsaturated [Mass/volume] in Serum or Plasma TIBC Iron binding capacity.unsaturated [Mass/volume] in Serum or Plasma IRON SATURATION Iron [Mass/volume] in Serum or Plasma Ferritin [Mass/volume] in Serum or Plasma Ferritin [Mass/volume] in Serum or Plasma Comorbidities Description Draw Date Result/Unit Status Ref Range Result Comments Hemoglobin A1c/Hemoglobin.total in Blood 2023-05-30 06:34:52 8.6 %A1c F 0.0-5.6 Hemoglobin A1c/Hemoglobin.total in Blood 2022-12-20 02:56:16 8.7 %A1c F 0.0-5.6 FluidBP Description Draw Date Result/Unit Status Ref Range Result Comments Sodium [Moles/volume] in Serum or Plasma 2025-01-31 20:31:50 136 mEq/L F 136.0-145.0 Sodium [Moles/volume] in Serum or Plasma 2025-01-04 23:37:49 140 mEq/L F 136.0-145.0 Sodium [Moles/volume] in Serum or Plasma 2024-11-30 06:40:07 137 mEq/L F 136.0-145.0 Sodium [Moles/volume] in Serum or Plasma 2024-11-30 06:40:07 137 mEq/L F 136.0-145.0 Sodium [Moles/volume] in Serum or Plasma 2024-10-18 23:40:10 136 mEq/L F 132.0-146.0 Sodium [Moles/volume] in Serum or Plasma 2024-10-18 23:40:10 136 mEq/L F 132.0-146.0 Sodium [Moles/volume] in Serum or Plasma 2024-10-18 23:40:10 136 mEq/L F 132.0-146.0 Sodium [Moles/volume] in Serum or Plasma 2024-10-18 23:40:10 136 mEq/L F 132.0-146.0 Sodium [Moles/volume] in Serum or Plasma 2024-08-30 19:37:39 135 mEq/L F 132.0-146.0 Sodium [Moles/volume] in Serum or Plasma 2024-08-03 07:12:09 134 mEq/L F 132.0-146.0 Sodium [Moles/volume] in Serum or Plasma 2024-07-07 18:59:22 134 mEq/L F 132.0-146.0 Sodium [Moles/volume] in Serum or Plasma 2024-07-07 18:59:22 134 mEq/L F 132.0-146.0 Sodium [Moles/volume] in Serum or Plasma 2024-07-07 18:59:22 134 mEq/L F 132.0-146.0 Sodium [Moles/volume] in Serum or Plasma 2024-06-02 04:56:01 138 mEq/L F 132.0-146.0 Sodium [Moles/volume] in Serum or Plasma 2024-06-02 [...] Comments Chloride [Moles/volume] in Serum or Plasma 2025-01-31 20:31:50 95 mEq/L F 98.0-107.0 Alanine aminotransferase [Enzymatic activity/volume] in Serum or Plasma 2025-01-31 16:14:12 9 U/L F 10.0-49.0 Aspartate aminotransferase [Enzymatic activity/volume] in Serum or Plasma 2025-01-31 16:14:12 12 U/L F 0.0-33.0 Chloride [Moles/volume] in Serum or Plasma 2025-01-04 23:37:49 101 mEq/L F 98.0-107.0 Aspartate aminotransferase [Enzymatic activity/volume] in Serum or Plasma 2025-01-04 18:40:11 11 U/L F 0.0-33.0 Alanine aminotransferase [Enzymatic activity/volume] in Serum or Plasma 2025-01-04 18:40:11 9 U/L F 10.0-49.0 Chloride [Moles/volume] in Serum or Plasma 2024-11-30 06:40:18 99 mEq/L F 98.0-107.0 Chloride [Moles/volume] in Serum or Plasma 2024-11-30 06:40:18 99 mEq/L F 98.0-107.0 Alanine aminotransferase [Enzymatic activity/volume] in Serum or Plasma 2024-11-29 21:05:16 11 U/L F 10.0-49.0 Aspartate aminotransferase [Enzymatic activity/volume] in Serum or Plasma 2024-11-29 21:05:16 12 U/L F 0.0-33.0 Aspartate aminotransferase [Enzymatic activity/volume] in Serum or Plasma 2024-11-29 21:05:16 12 U/L F 0.0-33.0 Alanine aminotransferase [Enzymatic activity/volume] in Serum or Plasma 2024-11-29 21:05:16 11 U/L F 10.0-49.0 Chloride [Moles/volume] in Serum or Plasma 2024-10-18 23:40:10 100 mEq/L F 99.0-109.0 Chloride [Moles/volume] in Serum or Plasma 2024-10-18 23:40:10 100 mEq/L F 99.0-109.0 Chloride [Moles/volume] in Serum or Plasma 2024-10-18 23:40:10 100 mEq/L F 99.0-109.0 Chloride [Moles/volume] in Serum or Plasma 2024-10-18 23:40:10 100 mEq/L F 99.0-109.0 Aspartate aminotransferase [Enzymatic activity/volume] in Serum or Plasma 2024-10-18 18:36:16 11 U/L F 0.0-33.0 Alanine aminotransferase [Enzymatic activity/volume] in Serum or Plasma 2024-10-18 18:36:16 9 U/L F 10.0-49.0 Alanine aminotransferase [Enzymatic activity/volume] in Serum or Plasma 2024-10-18 18:36:16 9 U/L F 10.0-49.0 Aspartate aminotransferase [Enzymatic activity/volume] in Serum or Plasma 2024-10-18 18:36:16 11 U/L F 0.0-33.0 Aspartate aminotransferase [Enzymatic activity/volume] in Serum or Plasma 2024-10-18 18:36:16 11 U/L F 0.0-33.0 Alanine aminotransferase [Enzymatic activity/volume] in Serum or Plasma 2024-10-18 18:36:16 9 U/L F 10.0-49.0 Aspartate aminotransferase [Enzymatic activity/volume] in Serum or Plasma 2024-10-18 18:36:16 11 U/L F 0.0-33.0 Alanine aminotransferase [Enzymatic activity/volume] in Serum or Plasma 2024-10-18 18:36:16 9 U/L F 10.0-49.0 Aluminum [Mass/volume] in Serum or Plasma 2024-10-18 18:21:48 10 ug/L F 0.0-9.0 Aluminum [Mass/volume] in Serum or Plasma 2024-10-18 18:21:48 10 ug/L F 0.0-9.0 Aluminum [Mass/volume] in Serum or Plasma 2024-10-18 18:21:48 10 ug/L F 0.0-9.0 Aluminum [Mass/volume] in Serum or Plasma 2024-10-18 18:21:48 10 ug/L F 0.0-9.0 Chloride [Moles/volume] in Serum or Plasma 2024-08-30 19:37:39 100 mEq/L F 99.0-109.0 Aspartate aminotransferase [Enzymatic activity/volume] in Serum or Plasma 2024-08-30 13:31:22 10 U/L F 0.0-33.0 Alanine aminotransferase [Enzymatic activity/volume] in Serum or Plasma 2024-08-30 13:31:22 9 U/L F 10.0-49.0 Chloride [Moles/volume] in Serum or Plasma 2024-08-03 07:12:09 99 mEq/L F 99.0-109.0 Aspartate aminotransferase [Enzymatic activity/volume] in Serum or Plasma 2024-08-03 01:54:13 13 U/L F 0.0-33.0 Alanine aminotransferase [Enzymatic activity/volume] in Serum or Plasma 2024-08-03 01:54:13 11 U/L F 10.0-49.0 Chloride [Moles/volume] in Serum or Plasma 2024-07-07 18:59:22 104 mEq/L F 99.0-109.0 Chloride [Moles/volume] in Serum or Plasma 2024-07-07 18:59:22 104 mEq/L F 99.0-109.0 Chloride [Moles/volume] in Serum or Plasma 2024-07-07 18:59:22 104 mEq/L F 99.0-109.0 Aspartate aminotransferase [Enzymatic activity/volume] in Serum or Plasma 2024-07-07 14:39:21 9 U/L F 0.0-33.0 Alanine aminotransferase [Enzymatic activity/volume] in Serum or Plasma 2024-07-07 14:39:21 9 U/L F 10.0-49.0 Alanine aminotransferase [Enzymatic activity/volume] in Serum or Plasma 2024-07-07 14:39:21 9 U/L F 10.0-49.0 Aspartate aminotransferase [Enzymatic activity/volume] in Serum or Plasma 2024-07-07 14:39:21 9 U/L F 0.0-33.0 Alanine aminotransferase [Enzymatic activity/volume] in Serum or Plasma 2024-07-07 14:39:21 9 U/L F 10.0-49.0 Aspartate aminotransferase [Enzymatic activity/volume] in Serum or Plasma 2024-07-07 14:39:21 9 U/L F 0.0-33.0 Chloride [Moles/volume] in Serum or Plasma 2024-06-02 04:56:01 108 mEq/L F 99.0-109.0 Chloride [Moles/volume] in Serum or Plasma 2024-06-02 04:56:01 108 mEq/L F 99.0-109.0 Alanine aminotransferase [Enzymatic activity/volume] in Serum or Plasma 2024-06-01 17:55:17 9 U/L F 10.0-49.0 Aspartate aminotransferase [Enzymatic activity/volume] in Serum or Plasma 2024-06-01 17:55:17 11 U/L F 0.0-33.0 Aspartate aminotransferase [Enzymatic activity/volume] in Serum or Plasma 2024-06-01 17:55:17 11 U/L F 0.0-33.0 Alanine aminotransferase [Enzymatic activity/volume] in Serum or Plasma 2024-06-01 17:55:17 9 U/L F 10.0-49.0 Chloride [Moles/volume] in Serum or Plasma 2024-05-05 [...] Plasma 2024-05-04 22:42:24 10 U/L F 10.0-49.0 Chloride [Moles/volume] in Serum or Plasma 2024-04-06 [...] Plasma 2024-02-03 18:28:40 98 mEq/L F 99.0-109.0 Chloride [Moles/volume] in Serum or Plasma 2024-02-03 18:28:40 98 mEq/L F 99.0-109.0 Chloride [Moles/volume] in Serum or Plasma 2024-02-03 18:28:40 98 mEq/L F 99.0-109.0 Aspartate aminotransferase [Enzymatic activity/volume] in Serum or Plasma 2024-02-03 15:11:30 11 U/L F 0.0-33.0 Alanine aminotransferase [Enzymatic activity/volume] in Serum or Plasma 2024-02-03 15:11:30 12 U/L F 10.0-49.0 Alanine aminotransferase [Enzymatic activity/volume] in Serum or Plasma 2024-02-03 15:11:30 12 U/L F 10.0-49.0 Aspartate aminotransferase [Enzymatic activity/volume] in Serum or Plasma 2024-02-03 15:11:30 11 U/L F 0.0-33.0 Aspartate aminotransferase [Enzymatic activity/volume] in Serum or Plasma 2024-02-03 15:11:30 11 U/L F 0.0-33.0 Alanine aminotransferase [Enzymatic activity/volume] in Serum or Plasma 2024-02-03 15:11:30 12 U/L F 10.0-49.0 Chloride [Moles/volume] in Serum or Plasma 2023-12-31 06:07:52 103 mEq/L F 99.0-109.0 Chloride [Moles/volume] in Serum or Plasma 2023-12-31 06:07:52 103 mEq/L F 99.0-109.0 Alanine aminotransferase [Enzymatic activity/volume] in Serum or Plasma 2023-12-30 18:38:42 12 U/L F 10.0-49.0 Aspartate aminotransferase [Enzymatic activity/volume] in Serum or Plasma 2023-12-30 18:38:42 15 U/L F 0.0-33.0 Aspartate aminotransferase [Enzymatic activity/volume] in Serum or Plasma 2023-12-30 18:38:42 15 U/L F 0.0-33.0 Alanine aminotransferase [Enzymatic activity/volume] in Serum or Plasma 2023-12-30 18:38:42 12 U/L F 10.0-49.0 Chloride [Moles/volume] in Serum or Plasma 2023-12-03 [...] Plasma 2023-08-06 04:52:47 104 mEq/L F 99.0-109.0 Aspartate aminotransferase [Enzymatic [...] Plasma 2023-05-29 16:11:40 14 U/L F 10.0-49.0 Alanine aminotransferase [Enzymatic activity/volume] in Serum or Plasma 2023-04-24 23:09:39 12 U/L F 10.0-49.0 Chloride [Moles/volume] in Serum or Plasma 2023-04-24 23:09:39 101 mEq/L F 99.0-109.0 Aspartate aminotransferase [Enzymatic activity/volume] in Serum or Plasma 2023-04-24 23:09:39 14 U/L F 0.0-33.0 Aspartate aminotransferase [Enzymatic activity/volume] [...] Plasma 2023-03-27 16:17:35 104 mEq/L F 99.0-109.0 Aspartate aminotransferase [Enzymatic [...] Plasma 2023-02-27 17:53:34 101 mEq/L F 99.0-109.0 Aspartate aminotransferase [Enzymatic activity/volume] in Serum or Plasma 2023-02-27 17:53:34 16 U/L F 0.0-33.0 Alanine aminotransferase [Enzymatic activity/volume] in Serum or Plasma 2023-02-27 17:53:34 14 U/L F 10.0-49.0 Chloride [Moles/volume] in Serum or Plasma 2023-02-27 17:53:34 101 mEq/L F 99.0-109.0 Aspartate aminotransferase [Enzymatic activity/volume] in Serum or Plasma 2023-01-30 22:43:25 16 U/L F 0.0-33.0 Alanine aminotransferase [Enzymatic activity/volume] in Serum or Plasma 2023-01-30 22:43:25 15 U/L F 10.0-49.0 Chloride [Moles/volume] in Serum or Plasma 2023-01-30 22:43:25 105 mEq/L F 99.0-109.0 Aspartate aminotransferase [Enzymatic activity/volume] in Serum or Plasma 2023-01-30 22:43:25 16 U/L F 0.0-33.0 Alanine aminotransferase [Enzymatic activity/volume] in Serum or Plasma 2023-01-30 22:43:25 15 U/L F 10.0-49.0 Chloride [Moles/volume] in Serum or Plasma 2023-01-30 22:43:25 105 mEq/L F 99.0-109.0 Aspartate aminotransferase [Enzymatic activity/volume] [...] Plasma 2022-06-28 00:23:52 106 mEq/L F 99.0-109.0 Alanine aminotransferase [Enzymatic activity/volume] in Serum or Plasma 2022-06-28 00:23:52 15 U/L F 10.0-49.0 Aspartate aminotransferase [Enzymatic activity/volume] in Serum or Plasma 2022-06-28 00:23:52 20 U/L F 0.0-33.0 Chloride [Moles/volume] in Serum or Plasma 2022-06-28 00:23:52 106 mEq/L F 99.0-109.0 Chloride [Moles/volume] in Serum or Plasma 2022-06-28 00:23:52 106 mEq/L F 99.0-109.0 Alanine aminotransferase [Enzymatic activity/volume] in Serum or Plasma 2022-06-28 00:23:52 15 U/L F 10.0-49.0 Aspartate aminotransferase [Enzymatic activity/volume] in Serum or Plasma 2022-06-28 00:23:52 20 U/L F 0.0-33.0 Aluminum [Mass/volume] in Serum or Plasma 2022-05-29 08:05:32 F Canceled - Specimen not received 5 days past draw date,Source: Aluminum [Mass/volume] in Serum or Plasma 2022-05-29 08:05:32 F Canceled - Specimen not received 5 days past draw date,Source: Aspartate aminotransferase [Enzymatic activity/volume] in Serum or Plasma 2022-05-23 20:51:42 19 U/L F 0.0-33.0 Alanine aminotransferase [Enzymatic activity/volume] in Serum or Plasma 2022-05-23 20:51:42 18 U/L F 10.0-49.0 Chloride [Moles/volume] in Serum or Plasma 2022-05-23 20:51:42 103 mEq/L F 99.0-109.0 Aspartate aminotransferase [Enzymatic activity/volume] in Serum or Plasma 2022-05-23 20:51:42 19 U/L F 0.0-33.0 Alanine aminotransferase [Enzymatic activity/volume] in Serum or Plasma 2022-05-23 20:51:42 18 U/L F 10.0-49.0 Chloride [Moles/volume] in Serum or Plasma 2022-05-23 20:51:42 103 mEq/L F 99.0-109.0 InfectionVaccination Description Draw Date Result/Unit Status Ref Range Result Comments Monocytes/100 leukocytes in Blood by Automated count 2025-01-31 15:55:13 5.4 % F Lymphocytes [#/volume] in Blood by Automated count 2025-01-31 15:55:13 1653 Cells/uL F 620.0-3660.0 Lymphocytes/100 leukocytes in Blood by Automated count 2025-01-31 15:55:13 18.2 % F Neutrophils/100 leukocytes in Blood by Automated count 2025-01-31 15:55:13 72.3 % F Basophils [#/volume] in Blood by Automated count 2025-01-31 15:55:13 36 Cells/uL F 0.0-400.0 Eosinophils [#/volume] in Blood by Automated count 2025-01-31 15:55:13 336 Cells/uL F 0.0-700.0 Leukocytes [#/volume] in Blood by Automated count 2025-01-31 15:55:13 9.1 x 10^3 cells/uL F 4.0-11.0 Eosinophils/100 leukocytes in Blood by Automated count 2025-01-31 15:55:13 3.7 % F Neutrophils [#/volume] in Blood by Automated count 2025-01-31 15:55:12 6565 Cells/uL F 2000.0-8800.0 Monocytes [#/volume] in Blood by Automated count 2025-01-31 15:55:12 490 Cells/uL F 0.0-1100.0 Basophils/100 leukocytes in Blood by Automated count 2025-01-31 15:55:12 0.4 % F Leukocytes [#/volume] in Blood by Automated count 2025-01-05 00:00:15 6.3 x 10^3 cells/uL F 4.0-11.0 Basophils/100 leukocytes in Blood by Automated count 2025-01-05 00:00:15 0.8 % F Basophils [#/volume] in Blood by Automated count 2025-01-05 00:00:15 51 Cells/uL F 0.0-400.0 Neutrophils [#/volume] in Blood by Automated count 2025-01-05 00:00:15 4171 Cells/uL F 2000.0-8800.0 Lymphocytes/100 leukocytes in Blood by Automated count 2025-01-05 00:00:13 21.4 % F Eosinophils [#/volume] in Blood by Automated count 2025-01-05 00:00:13 348 Cells/uL F 0.0-700.0 Lymphocytes [#/volume] in Blood by Automated count 2025-01-05 00:00:13 1355 Cells/uL F 620.0-3660.0 Eosinophils/100 leukocytes in Blood by Automated count 2025-01-05 00:00:13 5.5 % F Neutrophils/100 leukocytes in Blood by Automated count 2025-01-05 00:00:13 65.9 % F Monocytes/100 leukocytes in Blood by Automated count 2025-01-05 00:00:13 6.4 % F Monocytes [#/volume] in Blood by Automated count 2025-01-05 00:00:13 405 Cells/uL F 0.0-1100.0 Basophils/100 leukocytes in Blood by Automated count 2024-11-29 19:39:11 0.7 % F Neutrophils/100 leukocytes in Blood by Automated count 2024-11-29 19:39:11 74.1 % F Lymphocytes/100 leukocytes in Blood by Automated count 2024-11-29 19:39:11 18.4 % F Monocytes/100 leukocytes in Blood by Automated count 2024-11-29 19:39:11 5.1 % F Leukocytes [#/volume] in Blood by Automated count 2024-11-29 19:39:11 7.2 x 10^3 cells/uL F 4.0-11.0 Eosinophils/100 leukocytes in Blood by Automated count 2024-11-29 19:39:11 1.7 % F Neutrophils [#/volume] in Blood by Automated count 2024-11-29 19:39:11 5335 Cells/uL F 2000.0-8800.0 Lymphocytes [#/volume] in Blood by Automated count 2024-11-29 19:39:11 1325 Cells/uL F 620.0-3660.0 Monocytes [#/volume] in Blood by Automated count 2024-11-29 19:39:11 367 Cells/uL F 0.0-1100.0 Basophils [#/volume] in Blood by Automated count 2024-11-29 19:39:11 50 Cells/uL F 0.0-400.0 Eosinophils [#/volume] in Blood by Automated count 2024-11-29 19:39:11 122 Cells/uL F 0.0-700.0 Neutrophils/100 leukocytes in Blood by Automated count 2024-11-29 19:39:11 74.1 % F Lymphocytes/100 leukocytes in Blood by Automated count 2024-11-29 19:39:11 18.4 % F Eosinophils/100 leukocytes in Blood by Automated count 2024-11-29 19:39:11 1.7 % F Basophils/100 leukocytes in Blood by Automated count 2024-11-29 19:39:11 0.7 % F Monocytes [#/volume] in Blood by Automated count 2024-11-29 19:39:11 367 Cells/uL F 0.0-1100.0 Monocytes/100 leukocytes in Blood by Automated count 2024-11-29 19:39:11 5.1 % F Basophils [#/volume] in Blood by Automated count 2024-11-29 19:39:11 50 Cells/uL F 0.0-400.0 Eosinophils [#/volume] in Blood by Automated count 2024-11-29 19:39:11 122 Cells/uL F 0.0-700.0 Neutrophils [#/volume] in Blood by Automated count 2024-11-29 19:39:11 5335 Cells/uL F 2000.0-8800.0 Leukocytes [#/volume] in Blood by Automated count 2024-11-29 19:39:11 7.2 x 10^3 cells/uL F 4.0-11.0 Lymphocytes [#/volume] in Blood by Automated count 2024-11-29 19:39:11 1325 Cells/uL F 620.0-3660.0 Lymphocytes/100 leukocytes in Blood by Automated count 2024-10-18 15:28:17 18.9 % F Basophils/100 leukocytes in Blood by Automated count 2024-10-18 15:28:17 0.8 % F Neutrophils [#/volume] in Blood by Automated count 2024-10-18 15:28:17 4724 Cells/uL F 2000.0-8800.0 Lymphocytes [#/volume] in Blood by Automated count 2024-10-18 15:28:17 1225 Cells/uL F 620.0-3660.0 Basophils/100 leukocytes in Blood by Automated count 2024-10-18 15:28:17 0.8 % F Lymphocytes/100 leukocytes in Blood by Automated count 2024-10-18 15:28:17 18.9 % F Neutrophils [#/volume] in Blood by Automated count 2024-10-18 15:28:17 4724 Cells/uL F 2000.0-8800.0 Lymphocytes [#/volume] in Blood by Automated count 2024-10-18 15:28:17 1225 Cells/uL F 620.0-3660.0 Basophils/100 leukocytes in Blood by Automated count 2024-10-18 15:28:17 0.8 % F Lymphocytes/100 leukocytes in Blood by Automated count 2024-10-18 15:28:17 18.9 % F Neutrophils [#/volume] in Blood by Automated count 2024-10-18 15:28:17 4724 Cells/uL F 2000.0-8800.0 Lymphocytes [#/volume] in Blood by Automated count 2024-10-18 15:28:17 1225 Cells/uL F 620.0-3660.0 Lymphocytes/100 leukocytes in Blood by Automated count 2024-10-18 15:28:17 18.9 % F Basophils/100 leukocytes in Blood by Automated count 2024-10-18 15:28:17 0.8 % F Neutrophils [#/volume] in Blood by Automated count 2024-10-18 15:28:17 4724 Cells/uL F 2000.0-8800.0 Lymphocytes [#/volume] in Blood by Automated count 2024-10-18 15:28:17 1225 Cells/uL F 620.0-3660.0 Eosinophils/100 leukocytes in Blood by Automated count 2024-10-18 15:28:15 3.4 % F Neutrophils/100 leukocytes in Blood by Automated count 2024-10-18 15:28:15 72.9 % F Monocytes/100 leukocytes in Blood by Automated count 2024-10-18 15:28:15 4.1 % F Monocytes [#/volume] in Blood by Automated count 2024-10-18 15:28:15 266 Cells/uL F 0.0-1100.0 Basophils [#/volume] in Blood by Automated count 2024-10-18 15:28:15 52 Cells/uL F 0.0-400.0 Eosinophils [#/volume] in Blood by Automated count 2024-10-18 15:28:15 220 Cells/uL F 0.0-700.0 Leukocytes [#/volume] in Blood by Automated count 2024-10-18 15:28:15 6.5 x 10^3 cells/uL F 4.0-11.0 Eosinophils/100 leukocytes in Blood by Automated count 2024-10-18 15:28:15 3.4 % F Neutrophils/100 leukocytes in Blood by Automated count 2024-10-18 15:28:15 72.9 % F Basophils [#/volume] in Blood by Automated count 2024-10-18 15:28:15 52 Cells/uL F 0.0-400.0 Eosinophils [#/volume] in Blood by Automated count 2024-10-18 15:28:15 220 Cells/uL F 0.0-700.0 Monocytes/100 leukocytes in Blood by Automated count 2024-10-18 15:28:15 4.1 % F Monocytes [#/volume] in Blood by Automated count 2024-10-18 15:28:15 266 Cells/uL F 0.0-1100.0 Leukocytes [#/volume] in Blood by Automated count 2024-10-18 15:28:15 6.5 x 10^3 cells/uL F 4.0-11.0 Neutrophils/100 leukocytes in Blood by Automated count 2024-10-18 15:28:15 72.9 % F Eosinophils/100 leukocytes in Blood by Automated count 2024-10-18 15:28:15 3.4 % F Monocytes/100 leukocytes in Blood by Automated count 2024-10-18 15:28:15 4.1 % F Monocytes [#/volume] in Blood by Automated count 2024-10-18 15:28:15 266 Cells/uL F 0.0-1100.0 Basophils [#/volume] in Blood by Automated count 2024-10-18 15:28:15 52 Cells/uL F 0.0-400.0 Eosinophils [#/volume] in Blood by Automated count 2024-10-18 15:28:15 220 Cells/uL F 0.0-700.0 Leukocytes [#/volume] in Blood by Automated count 2024-10-18 15:28:15 6.5 x 10^3 cells/uL F 4.0-11.0 Neutrophils/100 leukocytes in Blood by Automated count 2024-10-18 15:28:15 72.9 % F Eosinophils/100 leukocytes in Blood by Automated count 2024-10-18 15:28:15 3.4 % F Monocytes/100 leukocytes in Blood by Automated count 2024-10-18 15:28:15 4.1 % F Monocytes [#/volume] in Blood by Automated count 2024-10-18 15:28:15 266 Cells/uL F 0.0-1100.0 Eosinophils [#/volume] in Blood by Automated count 2024-10-18 15:28:15 220 Cells/uL F 0.0-700.0 Basophils [#/volume] in Blood by Automated count 2024-10-18 15:28:15 52 Cells/uL F 0.0-400.0 Leukocytes [#/volume] in Blood by Automated count 2024-10-18 15:28:15 6.5 x 10^3 cells/uL F 4.0-11.0 Neutrophils/100 leukocytes in Blood by Automated count 2024-08-30 13:20:05 69.9 % F Basophils/100 leukocytes in Blood by Automated count 2024-08-30 13:20:05 0.5 % F Eosinophils/100 leukocytes in Blood by Automated count 2024-08-30 13:20:05 3.9 % F Lymphocytes/100 leukocytes in Blood by Automated count 2024-08-30 13:20:05 20.9 % F Monocytes/100 leukocytes in Blood by Automated count 2024-08-30 13:20:05 4.8 % F Monocytes [#/volume] in Blood by Automated count 2024-08-30 13:20:05 308 Cells/uL F 0.0-1100.0 Basophils [#/volume] in Blood by Automated count 2024-08-30 13:20:05 32 Cells/uL F 0.0-400.0 Eosinophils [#/volume] in Blood by Automated count 2024-08-30 13:20:05 250 Cells/uL F 0.0-700.0 Neutrophils [#/volume] in Blood by Automated count 2024-08-30 13:20:05 4488 Cells/uL F 2000.0-8800.0 Leukocytes [#/volume] in Blood by Automated count 2024-08-30 13:20:05 6.4 x 10^3 cells/uL F 4.0-11.0 Lymphocytes [#/volume] in Blood by Automated count 2024-08-30 13:20:05 1342 Cells/uL F 620.0-3660.0 Monocytes/100 leukocytes in Blood by Automated count 2024-08-02 22:29:12 5.8 % F Eosinophils/100 leukocytes in Blood by Automated count 2024-08-02 22:29:12 3.5 % F Lymphocytes/100 leukocytes in Blood by Automated count 2024-08-02 22:29:12 18.6 % F Basophils/100 leukocytes in Blood by Automated count 2024-08-02 22:29:12 3.1 % F Neutrophils/100 leukocytes in Blood by Automated count 2024-08-02 22:29:12 69 % F Monocytes [#/volume] in Blood by Automated count 2024-08-02 22:29:12 348 Cells/uL F 0.0-1100.0 Basophils [#/volume] in Blood by Automated count 2024-08-02 22:29:12 186 Cells/uL F 0.0-400.0 Eosinophils [#/volume] in Blood by Automated count 2024-08-02 22:29:12 210 Cells/uL F 0.0-700.0 Neutrophils [#/volume] in Blood by Automated count 2024-08-02 22:29:12 4140 Cells/uL F 2000.0-8800.0 Leukocytes [#/volume] in Blood by Automated count 2024-08-02 22:29:12 6 x 10^3 cells/uL F 4.0-11.0 Lymphocytes [#/volume] in Blood by Automated count 2024-08-02 22:29:12 1116 Cells/uL F 620.0-3660.0 Lymphocytes/100 leukocytes in Blood by Automated count 2024-07-07 17:22:10 19.3 % F Eosinophils/100 leukocytes in Blood by Automated count 2024-07-07 17:22:10 3.2 % F Monocytes/100 leukocytes in Blood by Automated count 2024-07-07 17:22:10 5.8 % F Monocytes [#/volume] in Blood by Automated count 2024-07-07 17:22:10 366 Cells/uL F 0.0-1100.0 Neutrophils/100 leukocytes in Blood by Automated count 2024-07-07 17:22:10 71.3 % F Basophils [#/volume] in Blood by Automated count 2024-07-07 17:22:10 25 Cells/uL F 0.0-400.0 Eosinophils [#/volume] in Blood by Automated count 2024-07-07 17:22:10 202 Cells/uL F 0.0-700.0 Neutrophils [#/volume] in Blood by Automated count 2024-07-07 17:22:10 4499 Cells/uL F 2000.0-8800.0 Leukocytes [#/volume] in Blood by Automated count 2024-07-07 17:22:10 6.3 x 10^3 cells/uL F 4.0-11.0 Lymphocytes [#/volume] in Blood by Automated count 2024-07-07 17:22:10 1218 Cells/uL F 620.0-3660.0 Lymphocytes/100 leukocytes in Blood by Automated count 2024-07-07 17:22:10 19.3 % F Monocytes/100 leukocytes in Blood by Automated count 2024-07-07 17:22:10 5.8 % F Monocytes [#/volume] in Blood by Automated count 2024-07-07 17:22:10 366 Cells/uL F 0.0-1100.0 Eosinophils [#/volume] in Blood by Automated count 2024-07-07 17:22:10 202 Cells/uL F 0.0-700.0 Neutrophils [#/volume] in Blood by Automated count 2024-07-07 17:22:10 4499 Cells/uL F 2000.0-8800.0 Lymphocytes [#/volume] in Blood by Automated count 2024-07-07 17:22:10 1218 Cells/uL F 620.0-3660.0 Eosinophils/100 leukocytes in Blood by Automated count 2024-07-07 17:22:10 3.2 % F Basophils/100 leukocytes in Blood by Automated count 2024-07-07 17:22:10 0.4 % F Neutrophils/100 leukocytes in Blood by Automated count 2024-07-07 17:22:10 71.3 % F Leukocytes [#/volume] in Blood by Automated count 2024-07-07 17:22:10 6.3 x 10^3 cells/uL F 4.0-11.0 Basophils [#/volume] in Blood by Automated count 2024-07-07 17:22:10 25 Cells/uL F 0.0-400.0 Basophils/100 leukocytes in Blood by Automated count 2024-07-07 17:22:10 0.4 % F Neutrophils/100 leukocytes in Blood by Automated count 2024-07-07 17:22:10 71.3 % F Lymphocytes/100 leukocytes in Blood by Automated count 2024-07-07 17:22:10 19.3 % F Monocytes/100 leukocytes in Blood by Automated count 2024-07-07 17:22:10 5.8 % F Eosinophils/100 leukocytes in Blood by Automated count 2024-07-07 17:22:10 3.2 % F Leukocytes [#/volume] in Blood by Automated count 2024-07-07 17:22:10 6.3 x 10^3 cells/uL F 4.0-11.0 Neutrophils [#/volume] in Blood by Automated count 2024-07-07 17:22:10 4499 Cells/uL F 2000.0-8800.0 Monocytes [#/volume] in Blood by Automated count 2024-07-07 17:22:10 366 Cells/uL F 0.0-1100.0 Lymphocytes [#/volume] in Blood by Automated count 2024-07-07 17:22:10 1218 Cells/uL F 620.0-3660.0 Basophils [#/volume] in Blood by Automated count 2024-07-07 17:22:10 25 Cells/uL F 0.0-400.0 Eosinophils [#/volume] in Blood by Automated count 2024-07-07 17:22:10 202 Cells/uL F 0.0-700.0 Basophils/100 leukocytes in Blood by Automated count 2024-07-07 17:22:10 0.4 % F Neutrophils/100 leukocytes in Blood by Automated count 2024-06-01 20:01:14 73.7 % F Eosinophils [#/volume] in Blood by Automated count 2024-06-01 20:01:14 158 Cells/uL F 0.0-700.0 Leukocytes [#/volume] in Blood by Automated count 2024-06-01 20:01:14 6.1 x 10^3 cells/uL F 4.0-11.0 Monocytes/100 leukocytes in Blood by Automated count 2024-06-01 20:01:14 5.4 % F Eosinophils/100 leukocytes in Blood by Automated count 2024-06-01 20:01:14 2.6 % F Lymphocytes/100 leukocytes in Blood by Automated count 2024-06-01 20:01:14 17.8 % F Monocytes [#/volume] in Blood by Automated count 2024-06-01 20:01:14 329 Cells/uL F 0.0-1100.0 Basophils [#/volume] in Blood by Automated count 2024-06-01 20:01:14 30 Cells/uL F 0.0-400.0 Neutrophils [#/volume] in Blood by Automated count 2024-06-01 20:01:14 4488 Cells/uL F 2000.0-8800.0 Basophils/100 leukocytes in Blood by Automated count 2024-06-01 20:01:14 0.5 % F Lymphocytes [#/volume] in Blood by Automated count 2024-06-01 20:01:14 1084 Cells/uL F 620.0-3660.0 Lymphocytes/100 leukocytes in Blood by Automated count 2024-06-01 20:01:14 17.8 % F Eosinophils/100 leukocytes in Blood by Automated count 2024-06-01 20:01:14 2.6 % F Neutrophils/100 leukocytes in Blood by Automated count 2024-06-01 20:01:14 73.7 % F Basophils/100 leukocytes in Blood by Automated count 2024-06-01 20:01:14 0.5 % F Monocytes/100 leukocytes in Blood by Automated count 2024-06-01 20:01:14 5.4 % F Monocytes [#/volume] in Blood by Automated count 2024-06-01 20:01:14 329 Cells/uL F 0.0-1100.0 Basophils [#/volume] in Blood by Automated count 2024-06-01 20:01:14 30 Cells/uL F 0.0-400.0 Eosinophils [#/volume] in Blood by Automated count 2024-06-01 20:01:14 158 Cells/uL F 0.0-700.0 Neutrophils [#/volume] in Blood by Automated count 2024-06-01 20:01:14 4488 Cells/uL F 2000.0-8800.0 Leukocytes [#/volume] in Blood by Automated count 2024-06-01 20:01:14 6.1 x 10^3 cells/uL F 4.0-11.0 Lymphocytes [#/volume] in Blood by Automated count 2024-06-01 20:01:14 1084 Cells/uL F 620.0-3660.0 Neutrophils [#/volume] in Blood by Automated count 2024-05-04 21:06:11 5350 Cells/uL F 2000.0-8800.0 Basophils/100 leukocytes in Blood by Automated count 2024-05-04 21:06:11 0.6 % F Monocytes/100 leukocytes in Blood by Automated count 2024-05-04 21:06:11 4.8 % F Monocytes [#/volume] in Blood by Automated count 2024-05-04 21:06:11 356 Cells/uL F 0.0-1100.0 Lymphocytes/100 leukocytes in Blood by Automated count 2024-05-04 21:06:11 19.9 % F Basophils [#/volume] in Blood by Automated count 2024-05-04 21:06:11 45 Cells/uL F 0.0-400.0 Leukocytes [#/volume] in Blood by Automated count 2024-05-04 21:06:11 7.4 x 10^3 cells/uL F 4.0-11.0 Neutrophils/100 leukocytes in Blood by Automated count 2024-05-04 21:06:11 72.1 % F Eosinophils [#/volume] in Blood by Automated count 2024-05-04 21:06:11 200 Cells/uL F 0.0-700.0 Eosinophils/100 leukocytes in Blood by Automated count 2024-05-04 21:06:11 2.7 % F Lymphocytes [#/volume] in Blood by Automated count 2024-05-04 21:06:11 1477 Cells/uL F 620.0-3660.0 Neutrophils/100 leukocytes in Blood by Automated count 2024-05-04 21:06:11 72.1 % F Monocytes/100 leukocytes in Blood by Automated count 2024-05-04 21:06:11 4.8 % F Eosinophils/100 leukocytes in Blood by Automated count 2024-05-04 21:06:11 2.7 % F Basophils/100 leukocytes in Blood by Automated count 2024-05-04 21:06:11 0.6 % F Lymphocytes/100 leukocytes in Blood by Automated count 2024-05-04 21:06:11 19.9 % F Monocytes [#/volume] in Blood by Automated count 2024-05-04 21:06:11 356 Cells/uL F 0.0-1100.0 Basophils [#/volume] in Blood by Automated count 2024-05-04 21:06:11 45 Cells/uL F 0.0-400.0 Eosinophils [#/volume] in Blood by Automated count 2024-05-04 21:06:11 200 Cells/uL F 0.0-700.0 Neutrophils [#/volume] in Blood by Automated count 2024-05-04 21:06:11 5350 Cells/uL F 2000.0-8800.0 Leukocytes [#/volume] in Blood by Automated count 2024-05-04 21:06:11 7.4 x 10^3 cells/uL F 4.0-11.0 Lymphocytes [#/volume] in Blood by Automated count 2024-05-04 21:06:11 1477 Cells/uL F 620.0-3660.0 Lymphocytes/100 leukocytes in Blood by Automated count 2024-04-07 03:20:11 18.7 % F Neutrophils/100 leukocytes in Blood by Automated count 2024-04-07 03:20:11 71.6 % F Eosinophils/100 leukocytes in Blood by Automated count 2024-04-07 03:20:11 1.9 % F Basophils/100 leukocytes in Blood by Automated count 2024-04-07 03:20:11 1.3 % F Monocytes/100 leukocytes in Blood by Automated count 2024-04-07 03:20:11 6.4 % F Monocytes [#/volume] in Blood by Automated count 2024-04-07 03:20:11 481 Cells/uL F 0.0-1100.0 Eosinophils [#/volume] in Blood by Automated count 2024-04-07 03:20:11 143 Cells/uL F 0.0-700.0 Basophils [#/volume] in Blood by Automated count 2024-04-07 03:20:11 98 Cells/uL F 0.0-400.0 Neutrophils [#/volume] in Blood by Automated count 2024-04-07 03:20:11 5377 Cells/uL F 2000.0-8800.0 Leukocytes [#/volume] in Blood by Automated count 2024-04-07 03:20:11 7.5 x 10^3 cells/uL F 4.0-11.0 Lymphocytes [#/volume] in Blood by Automated count 2024-04-07 03:20:11 1404 Cells/uL F 620.0-3660.0 Monocytes/100 leukocytes in Blood by Automated count 2024-03-02 14:36:13 4.4 % F Basophils/100 leukocytes in Blood by Automated count 2024-03-02 14:36:13 1.2 % F Eosinophils/100 leukocytes in Blood by Automated count 2024-03-02 14:36:13 3.4 % F Lymphocytes/100 leukocytes in Blood by Automated count 2024-03-02 14:36:13 20.3 % F Neutrophils/100 leukocytes in Blood by Automated count 2024-03-02 14:36:13 70.6 % F Monocytes [#/volume] in Blood by Automated count 2024-03-02 14:36:13 411 Cell/uL F 0.0-1100.0 Basophils [#/volume] in Blood by Automated count 2024-03-02 14:36:13 112 Cell/uL F 0.0-400.0 Eosinophils [#/volume] in Blood by Automated count 2024-03-02 14:36:13 318 Cell/uL F 0.0-700.0 Neutrophils [#/volume] in Blood by Automated count 2024-03-02 14:36:13 6601 Cell/uL F 2000.0-8800.0 Leukocytes [#/volume] in Blood by Automated count 2024-03-02 14:36:13 9.4 x 10^3 cells/uL F 4.0-11.0 Lymphocytes [#/volume] in Blood by Automated count 2024-03-02 14:36:13 1898 Cell/uL F 620.0-3660.0 Neutrophils/100 leukocytes in Blood by Automated count 2024-02-03 14:59:33 70.7 % F Eosinophils [#/volume] in Blood by Automated count 2024-02-03 14:59:33 238 Cell/uL F 0.0-700.0 Basophils [#/volume] in Blood by Automated count 2024-02-03 14:59:33 38 Cell/uL F 0.0-400.0 Basophils/100 leukocytes in Blood by Automated count 2024-02-03 14:59:33 0.5 % F Leukocytes [#/volume] in Blood by Automated count 2024-02-03 14:59:33 7.7 x 10^3 cells/uL F 4.0-11.0 Lymphocytes [#/volume] in Blood by Automated count 2024-02-03 14:59:33 1576 Cell/uL F 620.0-3660.0 Basophils/100 leukocytes in Blood by Automated count 2024-02-03 14:59:33 0.5 % F Neutrophils/100 leukocytes in Blood by Automated count 2024-02-03 14:59:33 70.7 % F Leukocytes [#/volume] in Blood by Automated count 2024-02-03 14:59:33 7.7 x 10^3 cells/uL F 4.0-11.0 Lymphocytes [#/volume] in Blood by Automated count 2024-02-03 14:59:33 1576 Cell/uL F 620.0-3660.0 Basophils [#/volume] in Blood by Automated count 2024-02-03 14:59:33 38 Cell/uL F 0.0-400.0 Eosinophils [#/volume] in Blood by Automated count 2024-02-03 14:59:33 238 Cell/uL F 0.0-700.0 Neutrophils/100 leukocytes in Blood by Automated count 2024-02-03 14:59:33 70.7 % F Basophils/100 leukocytes in Blood by Automated count 2024-02-03 14:59:33 0.5 % F Basophils [#/volume] in Blood by Automated count 2024-02-03 14:59:33 38 Cell/uL F 0.0-400.0 Eosinophils [#/volume] in Blood by Automated count 2024-02-03 14:59:33 238 Cell/uL F 0.0-700.0 Leukocytes [#/volume] in Blood by Automated count 2024-02-03 14:59:33 7.7 x 10^3 cells/uL F 4.0-11.0 Lymphocytes [#/volume] [...] count 2024-02-03 14:59:32 5437 Cell/uL F 2000.0-8800.0 Lymphocytes/100 leukocytes in Blood by Automated count 2024-02-03 14:59:32 20.5 % F Eosinophils/100 leukocytes in Blood by Automated count 2024-02-03 14:59:32 3.1 % F Monocytes/100 leukocytes in Blood by Automated count 2024-02-03 14:59:32 5.2 % F Neutrophils [#/volume] in Blood by Automated count 2024-02-03 14:59:32 5437 Cell/uL F 2000.0-8800.0 Monocytes [#/volume] in Blood by Automated count 2024-02-03 14:59:32 400 Cell/uL F 0.0-1100.0 Eosinophils/100 leukocytes in Blood by Automated count 2024-02-03 14:59:32 3.1 % F Monocytes/100 leukocytes in Blood by Automated count 2024-02-03 14:59:32 5.2 % F Lymphocytes/100 leukocytes in Blood by Automated count 2024-02-03 14:59:32 20.5 % F Monocytes [#/volume] in Blood by Automated count 2024-02-03 14:59:32 400 Cell/uL F 0.0-1100.0 Neutrophils [#/volume] in Blood by Automated count 2024-02-03 14:59:32 5437 Cell/uL F 2000.0-8800.0 Lymphocytes/100 leukocytes in Blood by Automated count 2023-12-30 16:05:32 25.4 % F Basophils/100 leukocytes in Blood by Automated count 2023-12-30 16:05:32 0.5 % F Monocytes/100 leukocytes in Blood by Automated count 2023-12-30 16:05:32 5.1 % F Monocytes [#/volume] in Blood by Automated count 2023-12-30 16:05:32 341 Cell/uL F 0.0-1100.0 Neutrophils/100 leukocytes in Blood by Automated count 2023-12-30 16:05:32 65.6 % F Neutrophils [#/volume] in Blood by Automated count 2023-12-30 16:05:32 4389 Cell/uL F 2000.0-8800.0 Lymphocytes [#/volume] in Blood by Automated count 2023-12-30 16:05:32 1699 Cell/uL F 620.0-3660.0 Eosinophils [#/volume] in Blood by Automated count 2023-12-30 16:05:32 221 Cell/uL F 0.0-700.0 Leukocytes [#/volume] in Blood by Automated count 2023-12-30 16:05:32 6.7 x 10^3 cells/uL F 4.0-11.0 Eosinophils/100 leukocytes in Blood by Automated count 2023-12-30 16:05:32 3.3 % F Basophils [#/volume] in Blood by Automated count 2023-12-30 16:05:32 33 Cell/uL F 0.0-400.0 Monocytes/100 leukocytes in Blood by Automated count 2023-12-30 16:05:32 5.1 % F Eosinophils/100 leukocytes in Blood by Automated count 2023-12-30 16:05:32 3.3 % F Lymphocytes/100 leukocytes in Blood by Automated count 2023-12-30 16:05:32 25.4 % F Basophils/100 leukocytes in Blood by Automated count 2023-12-30 16:05:32 0.5 % F Neutrophils/100 leukocytes in Blood by Automated count 2023-12-30 16:05:32 65.6 % F Monocytes [#/volume] in Blood by Automated count 2023-12-30 16:05:32 341 Cell/uL F 0.0-1100.0 Basophils [#/volume] in Blood by Automated count 2023-12-30 16:05:32 33 Cell/uL F 0.0-400.0 Eosinophils [#/volume] in Blood by Automated count 2023-12-30 16:05:32 221 Cell/uL F 0.0-700.0 Neutrophils [#/volume] in Blood by Automated count 2023-12-30 16:05:32 4389 Cell/uL F 2000.0-8800.0 Leukocytes [#/volume] in Blood by Automated count 2023-12-30 16:05:32 6.7 x 10^3 cells/uL F 4.0-11.0 Lymphocytes [#/volume] in Blood by Automated count 2023-12-30 16:05:32 1699 Cell/uL F 620.0-3660.0 Monocytes/100 leukocytes in Blood by Automated count 2023-12-02 22:00:25 4.6 % F Basophils/100 leukocytes in Blood by Automated count 2023-12-02 22:00:25 0.7 % F Neutrophils/100 leukocytes in Blood by Automated count 2023-12-02 22:00:25 71.9 % F Lymphocytes/100 leukocytes in Blood by Automated count 2023-12-02 22:00:25 19.7 % F Eosinophils/100 leukocytes in Blood by Automated count 2023-12-02 22:00:25 3 % F Monocytes [#/volume] in Blood by Automated count 2023-12-02 22:00:25 346 Cell/uL F 0.0-1100.0 Eosinophils [#/volume] in Blood by Automated count 2023-12-02 22:00:25 226 Cell/uL F 0.0-700.0 Basophils [#/volume] in Blood by Automated count 2023-12-02 22:00:25 53 Cell/uL F 0.0-400.0 Neutrophils [#/volume] in Blood by Automated count 2023-12-02 22:00:25 5414 Cell/uL F 2000.0-8800.0 Leukocytes [#/volume] in Blood by Automated count 2023-12-02 22:00:25 7.5 x 10^3 cells/uL F 4.0-11.0 Lymphocytes [#/volume] in Blood by Automated count 2023-12-02 22:00:25 1483 Cell/uL F 620.0-3660.0 Monocytes/100 leukocytes in Blood by Automated count 2023-11-04 17:07:28 4.8 % F Basophils [#/volume] in Blood by Automated count 2023-11-04 17:07:28 23 Cell/uL F 0.0-400.0 Leukocytes [#/volume] in Blood by Automated count 2023-11-04 17:07:28 7.8 x 10^3 cells/uL F 4.0-11.0 Neutrophils/100 leukocytes in Blood by Automated count 2023-11-04 17:07:28 76.5 % F Monocytes [#/volume] in Blood by Automated count 2023-11-04 17:07:28 372 Cell/uL F 0.0-1100.0 Neutrophils [#/volume] in Blood by Automated count 2023-11-04 17:07:28 5936 Cell/uL F 2000.0-8800.0 Eosinophils/100 leukocytes in Blood by Automated count 2023-11-04 17:07:28 2.8 % F Lymphocytes/100 leukocytes in Blood by Automated count 2023-11-04 17:07:28 15.6 % F Basophils/100 leukocytes in Blood by Automated count 2023-11-04 17:07:28 0.3 % F Eosinophils [#/volume] in Blood by Automated count 2023-11-04 17:07:28 217 Cell/uL F 0.0-700.0 Lymphocytes [#/volume] in Blood by Automated count 2023-11-04 17:07:28 1211 Cell/uL F 620.0-3660.0 Monocytes/100 leukocytes in Blood by Automated count 2023-11-04 17:07:28 4.8 % F Lymphocytes/100 leukocytes in Blood by Automated count 2023-11-04 17:07:28 15.6 % F Neutrophils/100 leukocytes in Blood by Automated count 2023-11-04 17:07:28 76.5 % F Eosinophils/100 leukocytes in Blood by Automated count 2023-11-04 17:07:28 2.8 % F Basophils/100 leukocytes in Blood by Automated count 2023-11-04 17:07:28 0.3 % F Monocytes [#/volume] in Blood by Automated count 2023-11-04 17:07:28 372 Cell/uL F 0.0-1100.0 Eosinophils [#/volume] in Blood by Automated count 2023-11-04 17:07:28 217 Cell/uL F 0.0-700.0 Basophils [#/volume] in Blood by Automated count 2023-11-04 17:07:28 23 Cell/uL F 0.0-400.0 Neutrophils [#/volume] in Blood by Automated count 2023-11-04 17:07:28 5936 Cell/uL F 2000.0-8800.0 Leukocytes [#/volume] in Blood by Automated count 2023-11-04 17:07:28 7.8 x 10^3 cells/uL F 4.0-11.0 Lymphocytes [#/volume] in Blood by Automated count 2023-11-04 17:07:28 1211 Cell/uL F 620.0-3660.0 Eosinophils/100 leukocytes in Blood by Automated count 2023-09-30 20:21:42 3.5 % F Lymphocytes/100 leukocytes in Blood by Automated count 2023-09-30 20:21:42 17.8 % F Basophils/100 leukocytes in Blood by Automated count 2023-09-30 20:21:42 0.6 % F Leukocytes [#/volume] in Blood by Automated count 2023-09-30 20:21:42 8.2 x 10^3 cells/uL F 4.0-11.0 Lymphocytes [#/volume] in Blood by Automated count 2023-09-30 20:21:42 1456 Cell/uL F 620.0-3660.0 Neutrophils/100 leukocytes in Blood by Automated count 2023-09-30 20:21:40 73.6 % F Monocytes/100 leukocytes in Blood by Automated count 2023-09-30 20:21:40 4.5 % F Monocytes [#/volume] in Blood by Automated count 2023-09-30 20:21:40 368 Cell/uL F 0.0-1100.0 Basophils [#/volume] in Blood by Automated count 2023-09-30 20:21:40 49 Cell/uL F 0.0-400.0 Eosinophils [#/volume] in Blood by Automated count 2023-09-30 20:21:40 286 Cell/uL F 0.0-700.0 Neutrophils [#/volume] in Blood by Automated count 2023-09-30 20:21:40 6020 Cell/uL F 2000.0-8800.0 Eosinophils/100 leukocytes in Blood by Automated count 2023-09-02 21:24:27 5.2 % F Monocytes/100 leukocytes in Blood by Automated count 2023-09-02 21:24:27 4.2 % F Basophils/100 leukocytes in Blood by Automated count 2023-09-02 21:24:27 0.8 % F Lymphocytes/100 leukocytes in Blood by Automated count 2023-09-02 21:24:27 14.8 % F Neutrophils/100 leukocytes in Blood by Automated count 2023-09-02 21:24:27 74.9 % F Monocytes [#/volume] in Blood by Automated count 2023-09-02 21:24:27 381 Cell/uL F 0.0-1100.0 Basophils [#/volume] in Blood by Automated count 2023-09-02 21:24:27 73 Cell/uL F 0.0-400.0 Eosinophils [#/volume] in Blood by Automated count 2023-09-02 21:24:27 472 Cell/uL F 0.0-700.0 Neutrophils [#/volume] in Blood by Automated count 2023-09-02 21:24:27 6793 Cell/uL F 2000.0-8800.0 Leukocytes [#/volume] in Blood by Automated count 2023-09-02 21:24:27 9.1 x 10^3 cells/uL F 4.0-11.0 Lymphocytes [#/volume] in Blood by Automated count 2023-09-02 21:24:27 1342 Cell/uL F 620.0-3660.0 Eosinophils/100 leukocytes in Blood [...] count 2023-08-05 16:31:50 1318 Cell/uL F 620.0-3660.0 Basophils/100 leukocytes in Blood by Automated count 2023-08-05 16:31:50 0.8 % F Eosinophils/100 leukocytes in Blood by Automated count 2023-08-05 16:31:50 3.8 % F Monocytes/100 leukocytes in Blood by Automated count 2023-08-05 16:31:50 5.1 % F Neutrophils/100 leukocytes in Blood by Automated count 2023-08-05 16:31:50 72.9 % F Lymphocytes [#/volume] in Blood by Automated count 2023-08-05 16:31:50 1318 Cell/uL F 620.0-3660.0 Lymphocytes/100 leukocytes in Blood by Automated count 2023-08-05 16:31:48 17.5 % F Monocytes [#/volume] in Blood by Automated count 2023-08-05 16:31:48 384 Cell/uL F 0.0-1100.0 Basophils [#/volume] in Blood by Automated count 2023-08-05 16:31:48 60 Cell/uL F 0.0-400.0 Eosinophils [#/volume] in Blood by Automated count 2023-08-05 16:31:48 286 Cell/uL F 0.0-700.0 Lymphocytes/100 leukocytes in Blood by Automated count 2023-08-05 16:31:48 17.5 % F Monocytes [#/volume] in Blood by Automated count 2023-08-05 16:31:48 384 Cell/uL F 0.0-1100.0 Eosinophils [#/volume] in Blood by Automated count 2023-08-05 16:31:48 286 Cell/uL F 0.0-700.0 Basophils [#/volume] in Blood by Automated count 2023-08-05 16:31:48 60 Cell/uL F 0.0-400.0 Neutrophils [#/volume] in Blood by Automated count 2023-08-05 16:31:45 5489 Cell/uL F 2000.0-8800.0 Leukocytes [#/volume] in Blood by Automated count 2023-08-05 16:31:45 7.5 x 10^3 cells/uL F 4.0-11.0 Neutrophils [#/volume] in Blood by Automated count 2023-08-05 16:31:45 5489 Cell/uL F 2000.0-8800.0 Leukocytes [#/volume] in Blood by Automated count 2023-08-05 16:31:45 7.5 x 10^3 cells/uL F 4.0-11.0 Lymphocytes/100 leukocytes in Blood by Automated count [...] count 2023-07-31 17:31:42 1328 Cell/uL F 620.0-3660.0 Eosinophils/100 leukocytes in Blood by Automated count 2023-07-31 17:31:40 3.9 % F Monocytes/100 leukocytes in Blood by Automated count 2023-07-31 17:31:40 7.9 % F Neutrophils/100 leukocytes in Blood by Automated count 2023-07-31 17:31:40 69.7 % F Basophils/100 leukocytes in Blood by Automated count 2023-07-31 17:31:40 0.4 % F Monocytes [#/volume] in Blood by Automated count 2023-07-31 17:31:40 583 Cell/uL F 0.0-1100.0 Neutrophils [#/volume] in Blood by Automated count 2023-07-31 17:31:40 5144 Cell/uL F 2000.0-8800.0 Neutrophils/100 leukocytes in Blood by Automated count 2023-07-31 17:31:40 69.7 % F Eosinophils/100 leukocytes in Blood by Automated count 2023-07-31 17:31:40 3.9 % F Basophils/100 leukocytes in Blood by Automated count 2023-07-31 17:31:40 0.4 % F Monocytes/100 leukocytes in Blood by Automated count 2023-07-31 17:31:40 7.9 % F Monocytes [#/volume] in Blood by Automated count 2023-07-31 17:31:40 583 Cell/uL F 0.0-1100.0 Neutrophils [#/volume] in Blood by Automated count 2023-07-31 17:31:40 5144 Cell/uL F 2000.0-8800.0 Leukocytes [#/volume] in Blood by Automated count 2023-07-31 17:31:35 7.4 x 10^3 cells/uL F 4.0-11.0 Leukocytes [#/volume] in Blood by Automated count 2023-07-31 17:31:35 7.4 x 10^3 cells/uL F 4.0-11.0 Eosinophils/100 leukocytes in Blood by Automated count 2023-07-10 19:55:28 2.9 % F Monocytes/100 leukocytes in Blood by Automated count 2023-07-10 19:55:28 6 % F Neutrophils/100 leukocytes in Blood by Automated count 2023-07-10 19:55:28 78.2 % F Basophils/100 leukocytes in Blood by Automated count 2023-07-10 19:55:28 0.4 % F Lymphocytes/100 leukocytes in Blood by Automated count 2023-07-10 19:55:28 12.4 % F Monocytes [#/volume] in Blood by Automated count 2023-07-10 19:55:28 598 Cell/uL F 0.0-1100.0 Basophils [#/volume] in Blood by Automated count 2023-07-10 19:55:28 40 Cell/uL F 0.0-400.0 Eosinophils [#/volume] in Blood by Automated count 2023-07-10 19:55:28 289 Cell/uL F 0.0-700.0 Neutrophils [#/volume] in Blood by Automated count 2023-07-10 19:55:28 7789 Cell/uL F 2000.0-8800.0 Leukocytes [#/volume] in Blood by Automated count 2023-07-10 19:55:28 10 x 10^3 cells/uL F 4.0-11.0 Lymphocytes [#/volume] in Blood by Automated count 2023-07-10 19:55:28 1235 Cell/uL F 620.0-3660.0 Monocytes/100 leukocytes in Blood by Automated count 2023-05-29 16:26:37 5.7 % F Neutrophils/100 leukocytes in Blood by Automated count 2023-05-29 16:26:37 77.4 % F Basophils/100 leukocytes in Blood by Automated count 2023-05-29 16:26:37 0.4 % F Lymphocytes/100 leukocytes in Blood by Automated count 2023-05-29 16:26:37 13.1 % F Eosinophils/100 leukocytes in Blood by Automated count 2023-05-29 16:26:37 3.6 % F Monocytes [#/volume] in Blood by Automated count 2023-05-29 16:26:37 392 Cell/uL F 0.0-1100.0 Basophils [#/volume] in Blood by Automated count 2023-05-29 16:26:37 27 Cell/uL F 0.0-400.0 Eosinophils [#/volume] in Blood by Automated count 2023-05-29 16:26:37 247 Cell/uL F 0.0-700.0 Neutrophils [#/volume] in Blood by Automated count 2023-05-29 16:26:37 5317 Cell/uL F 2000.0-8800.0 Leukocytes [#/volume] in Blood by Automated count 2023-05-29 16:26:37 6.9 x 10^3 cells/uL F 4.0-11.0 Lymphocytes [#/volume] in Blood by Automated count 2023-05-29 16:26:37 900 Cell/uL F 620.0-3660.0 Lymphocytes [#/volume] in Blood by Automated count 2023-04-24 19:27:32 803 Cell/uL F 620.0-3660.0 Basophils/100 leukocytes in Blood by Automated count 2023-04-24 19:27:32 0.2 % F Lymphocytes/100 leukocytes in Blood by Automated count 2023-04-24 19:27:32 12.2 % F Monocytes/100 leukocytes in Blood by Automated count 2023-04-24 19:27:32 4.4 % F Monocytes [#/volume] in Blood by Automated count 2023-04-24 19:27:32 290 Cell/uL F 0.0-1100.0 Eosinophils [#/volume] in Blood by Automated count 2023-04-24 19:27:32 197 Cell/uL F 0.0-700.0 Neutrophils [#/volume] in Blood by Automated count 2023-04-24 19:27:32 5284 Cell/uL F 2000.0-8800.0 Leukocytes [#/volume] in Blood by Automated count 2023-04-24 19:27:32 6.6 x 10^3 cells/uL F 4.0-11.0 Neutrophils/100 leukocytes in Blood by Automated count 2023-04-24 19:27:32 80.3 % F Eosinophils/100 leukocytes in Blood by Automated count 2023-04-24 19:27:32 3 % F Basophils [#/volume] in Blood by Automated count 2023-04-24 19:27:32 13 Cell/uL F 0.0-400.0 Basophils/100 leukocytes in Blood by Automated count 2023-04-24 19:27:32 0.2 % F Eosinophils/100 leukocytes in Blood by Automated count 2023-04-24 19:27:32 3 % F Lymphocytes/100 leukocytes in Blood by Automated count 2023-04-24 19:27:32 12.2 % F Neutrophils/100 leukocytes in Blood by Automated count 2023-04-24 19:27:32 80.3 % F Monocytes/100 leukocytes in Blood by Automated count 2023-04-24 19:27:32 4.4 % F Monocytes [#/volume] in Blood by Automated count 2023-04-24 19:27:32 290 Cell/uL F 0.0-1100.0 Basophils [#/volume] in Blood by Automated count 2023-04-24 19:27:32 13 Cell/uL F 0.0-400.0 Eosinophils [#/volume] in Blood by Automated count 2023-04-24 19:27:32 197 Cell/uL F 0.0-700.0 Neutrophils [#/volume] in Blood by Automated count 2023-04-24 19:27:32 5284 Cell/uL F 2000.0-8800.0 Leukocytes [#/volume] in Blood by Automated count 2023-04-24 19:27:32 6.6 x 10^3 cells/uL F 4.0-11.0 Lymphocytes [#/volume] in Blood by Automated count 2023-04-24 19:27:32 803 Cell/uL F 620.0-3660.0 Eosinophils/100 leukocytes in Blood by Automated count 2023-03-27 18:54:32 3.4 % F Basophils/100 leukocytes in Blood by Automated count 2023-03-27 18:54:32 0.2 % F Monocytes [#/volume] in Blood by Automated count 2023-03-27 18:54:32 360 Cell/uL F 0.0-1100.0 Basophils [#/volume] in Blood by Automated count 2023-03-27 18:54:32 11 Cell/uL F 0.0-400.0 Eosinophils [#/volume] in Blood by Automated count 2023-03-27 18:54:32 186 Cell/uL F 0.0-700.0 Leukocytes [#/volume] in Blood by Automated count 2023-03-27 18:54:32 5.5 x 10^3 cells/uL F 4.0-11.0 Eosinophils/100 leukocytes in Blood by Automated count 2023-03-27 18:54:32 3.4 % F Basophils/100 leukocytes in Blood by Automated count 2023-03-27 18:54:32 0.2 % F Monocytes [#/volume] in Blood by Automated count 2023-03-27 18:54:32 360 Cell/uL F 0.0-1100.0 Basophils [#/volume] in Blood by Automated count 2023-03-27 18:54:32 11 Cell/uL F 0.0-400.0 Eosinophils [#/volume] in Blood by Automated count 2023-03-27 18:54:32 186 Cell/uL F 0.0-700.0 Leukocytes [#/volume] in Blood by Automated count 2023-03-27 18:54:32 5.5 x 10^3 cells/uL F 4.0-11.0 Basophils/100 leukocytes in Blood by Automated count 2023-03-27 18:54:32 0.2 % F Eosinophils/100 leukocytes in Blood by Automated count 2023-03-27 18:54:32 3.4 % F Leukocytes [#/volume] in Blood by Automated count 2023-03-27 18:54:32 5.5 x 10^3 cells/uL F 4.0-11.0 Monocytes [#/volume] in Blood by Automated count 2023-03-27 18:54:32 360 Cell/uL F 0.0-1100.0 Basophils [#/volume] in Blood by Automated count 2023-03-27 18:54:32 11 Cell/uL F 0.0-400.0 Eosinophils [#/volume] in Blood by Automated count 2023-03-27 18:54:32 186 Cell/uL F 0.0-700.0 Lymphocytes/100 leukocytes in Blood by Automated count 2023-03-27 18:54:30 16 % F Neutrophils/100 leukocytes in Blood by Automated count 2023-03-27 18:54:30 73.9 % F Monocytes/100 leukocytes in Blood by Automated count 2023-03-27 18:54:30 6.6 % F Neutrophils [#/volume] in Blood by Automated count 2023-03-27 18:54:30 4035 Cell/uL F 2000.0-8800.0 Lymphocytes [#/volume] in Blood by Automated count 2023-03-27 18:54:30 874 Cell/uL F 620.0-3660.0 Lymphocytes/100 leukocytes in Blood by Automated count 2023-03-27 18:54:30 16 % F Neutrophils/100 leukocytes in Blood by Automated count 2023-03-27 18:54:30 73.9 % F Monocytes/100 leukocytes in Blood by Automated count 2023-03-27 18:54:30 6.6 % F Neutrophils [#/volume] in Blood by Automated count 2023-03-27 18:54:30 4035 Cell/uL F 2000.0-8800.0 Lymphocytes [#/volume] in Blood by Automated count 2023-03-27 18:54:30 874 Cell/uL F 620.0-3660.0 Lymphocytes/100 leukocytes in Blood by Automated count 2023-03-27 18:54:30 16 % F Neutrophils/100 leukocytes in Blood by Automated count 2023-03-27 18:54:30 73.9 % F Monocytes/100 leukocytes in Blood by Automated count 2023-03-27 18:54:30 6.6 % F Neutrophils [#/volume] in Blood by Automated count 2023-03-27 18:54:30 4035 Cell/uL F 2000.0-8800.0 Lymphocytes [#/volume] in Blood by Automated count 2023-03-27 18:54:30 874 Cell/uL F 620.0-3660.0 Basophils/100 leukocytes in Blood by Automated count 2023-02-28 01:10:33 0.5 % F Monocytes/100 leukocytes in Blood by Automated count 2023-02-28 01:10:33 5.9 % F Lymphocytes/100 leukocytes in Blood by Automated count 2023-02-28 01:10:33 13.8 % F Eosinophils/100 leukocytes in Blood by Automated count 2023-02-28 01:10:33 2.5 % F Neutrophils/100 leukocytes in Blood by Automated count 2023-02-28 01:10:33 77.2 % F Monocytes [#/volume] in Blood by Automated count 2023-02-28 01:10:33 396 Cell/uL F 0.0-1100.0 Basophils [#/volume] in Blood by Automated count 2023-02-28 01:10:33 34 Cell/uL F 0.0-400.0 Eosinophils [#/volume] in Blood by Automated count 2023-02-28 01:10:33 168 Cell/uL F 0.0-700.0 Neutrophils [#/volume] in Blood by Automated count 2023-02-28 01:10:33 5180 Cell/uL F 2000.0-8800.0 Leukocytes [#/volume] in Blood by Automated count 2023-02-28 01:10:33 6.7 x 10^3 cells/uL F 4.0-11.0 Lymphocytes [#/volume] in Blood by Automated count 2023-02-28 01:10:33 926 Cell/uL F 620.0-3660.0 Basophils/100 leukocytes in Blood by Automated count 2023-02-28 01:10:33 0.5 % F Lymphocytes/100 leukocytes in Blood by Automated count 2023-02-28 01:10:33 13.8 % F Eosinophils/100 leukocytes in Blood by Automated count 2023-02-28 01:10:33 2.5 % F Neutrophils [#/volume] in Blood by Automated count 2023-02-28 01:10:33 5180 Cell/uL F 2000.0-8800.0 Leukocytes [#/volume] in Blood by Automated count 2023-02-28 01:10:33 6.7 x 10^3 cells/uL F 4.0-11.0 Monocytes/100 leukocytes in Blood by Automated count 2023-02-28 01:10:33 5.9 % F Neutrophils/100 leukocytes in Blood by Automated count 2023-02-28 01:10:33 77.2 % F Monocytes [#/volume] in Blood by Automated count 2023-02-28 01:10:33 396 Cell/uL F 0.0-1100.0 Lymphocytes [#/volume] in Blood by Automated count 2023-02-28 01:10:33 926 Cell/uL F 620.0-3660.0 Eosinophils [#/volume] in Blood by Automated count 2023-02-28 01:10:33 168 Cell/uL F 0.0-700.0 Basophils [#/volume] in Blood by Automated count 2023-02-28 01:10:33 34 Cell/uL F 0.0-400.0 Eosinophils/100 leukocytes in Blood by Automated count 2023-01-30 17:30:41 4.1 % F Basophils/100 leukocytes in Blood by Automated count 2023-01-30 17:30:41 0.2 % F Monocytes/100 leukocytes in Blood by Automated count 2023-01-30 17:30:41 5.6 % F Lymphocytes/100 leukocytes in Blood by Automated count 2023-01-30 17:30:41 14.1 % F Neutrophils/100 leukocytes in Blood by Automated count 2023-01-30 17:30:41 76 % F Monocytes [#/volume] in Blood by Automated count 2023-01-30 17:30:41 322 Cell/uL F 0.0-1100.0 Basophils [#/volume] in Blood by Automated count 2023-01-30 17:30:41 12 Cell/uL F 0.0-400.0 Eosinophils [#/volume] in Blood by Automated count 2023-01-30 17:30:41 236 Cell/uL F 0.0-700.0 Neutrophils [#/volume] in Blood by Automated count 2023-01-30 17:30:41 4370 Cell/uL F 2000.0-8800.0 Leukocytes [#/volume] in Blood by Automated count 2023-01-30 17:30:41 5.8 x 10^3 cells/uL F 4.0-11.0 Lymphocytes [#/volume] in Blood by Automated count 2023-01-30 17:30:41 811 Cell/uL F 620.0-3660.0 Eosinophils/100 leukocytes in Blood by Automated count 2023-01-30 17:30:41 4.1 % F Neutrophils/100 leukocytes in Blood by Automated count 2023-01-30 17:30:41 76 % F Monocytes [#/volume] in Blood by Automated count 2023-01-30 17:30:41 322 Cell/uL F 0.0-1100.0 Basophils/100 leukocytes in Blood by Automated count 2023-01-30 17:30:41 0.2 % F Monocytes/100 leukocytes in Blood by Automated count 2023-01-30 17:30:41 5.6 % F Lymphocytes/100 leukocytes in Blood by Automated count 2023-01-30 17:30:41 14.1 % F Neutrophils [#/volume] in Blood by Automated count 2023-01-30 17:30:41 4370 Cell/uL F 2000.0-8800.0 Basophils [#/volume] in Blood by Automated count 2023-01-30 17:30:41 12 Cell/uL F 0.0-400.0 Eosinophils [#/volume] in Blood by Automated count 2023-01-30 17:30:41 236 Cell/uL F 0.0-700.0 Leukocytes [#/volume] in Blood by Automated count 2023-01-30 17:30:41 5.8 x 10^3 cells/uL F 4.0-11.0 Lymphocytes [#/volume] in Blood by Automated count 2023-01-30 17:30:41 811 Cell/uL F 620.0-3660.0 Basophils/100 leukocytes in Blood by Automated count 2022-12-19 23:37:26 0.2 % F Eosinophils/100 leukocytes in Blood by Automated count 2022-12-19 23:37:26 3.2 % F Lymphocytes/100 leukocytes in Blood by Automated count 2022-12-19 23:37:26 14.1 % F Neutrophils/100 leukocytes in Blood by Automated count 2022-12-19 23:37:26 76.2 % F Monocytes/100 leukocytes in Blood by Automated count 2022-12-19 23:37:26 6.4 % F Monocytes [#/volume] in Blood by Automated count 2022-12-19 23:37:26 403 Cell/uL F 0.0-1100.0 Basophils [#/volume] in Blood by Automated count 2022-12-19 23:37:26 13 Cell/uL F 0.0-400.0 Eosinophils [#/volume] in Blood by Automated count 2022-12-19 23:37:26 201 Cell/uL F 0.0-700.0 Neutrophils [#/volume] in Blood by Automated count 2022-12-19 23:37:26 4793 Cell/uL F 2000.0-8800.0 Leukocytes [#/volume] in Blood by Automated count 2022-12-19 23:37:26 6.3 x 10^3 cells/uL F 4.0-11.0 Lymphocytes [#/volume] in Blood by Automated count 2022-12-19 23:37:26 887 Cell/uL F 620.0-3660.0 Eosinophils/100 leukocytes in Blood by Automated count 2022-08-06 18:21:55 2.1 % F Neutrophils/100 leukocytes in Blood by Automated count 2022-08-06 18:21:55 71.5 % F Monocytes/100 leukocytes in Blood by Automated count 2022-08-06 18:21:55 5.7 % F Basophils/100 leukocytes in Blood by Automated count 2022-08-06 18:21:55 0.3 % F Monocytes [#/volume] in Blood by Automated count 2022-08-06 18:21:55 340.29 Cell/uL F 0.0-1100.0 Basophils [#/volume] in Blood by Automated count 2022-08-06 18:21:55 17.91 Cell/uL F 0.0-400.0 Eosinophils [#/volume] in Blood by Automated count 2022-08-06 18:21:55 125.37 Cell/uL F 0.0-700.0 Neutrophils [#/volume] in Blood by Automated count 2022-08-06 18:21:55 4268.55 Cell/uL F 2000.0-8800.0 Eosinophils/100 leukocytes in Blood by Automated count 2022-08-06 18:21:55 2.1 % F Basophils [#/volume] in Blood by Automated count 2022-08-06 18:21:55 17.91 Cell/uL F 0.0-400.0 Neutrophils [#/volume] in Blood by Automated count 2022-08-06 18:21:55 4268.55 Cell/uL F 2000.0-8800.0 Neutrophils/100 leukocytes in Blood by Automated count 2022-08-06 18:21:55 71.5 % F Monocytes [#/volume] in Blood by Automated count 2022-08-06 18:21:55 340.29 Cell/uL F 0.0-1100.0 Basophils/100 leukocytes in Blood by Automated count 2022-08-06 18:21:55 0.3 % F Monocytes/100 leukocytes in Blood by Automated count 2022-08-06 18:21:55 5.7 % F Eosinophils [#/volume] in Blood by Automated count 2022-08-06 18:21:55 125.37 Cell/uL F 0.0-700.0 Lymphocytes/100 leukocytes in Blood by Automated count 2022-08-06 18:21:54 20.3 % F Lymphocytes [#/volume] in Blood by Automated count 2022-08-06 18:21:54 1211.91 Cell/uL F 1100.0-4800.0 Leukocytes [#/volume] in Blood by Automated count 2022-08-06 18:21:54 6 x 10^3 cells/uL F 4.5-11.0 Lymphocytes [#/volume] in Blood by Automated count 2022-08-06 18:21:54 1211.91 Cell/uL F 1100.0-4800.0 Leukocytes [#/volume] in Blood by Automated count 2022-08-06 18:21:54 6 x 10^3 cells/uL F 4.5-11.0 Lymphocytes/100 leukocytes in Blood by Automated count 2022-08-06 18:21:54 20.3 % F Basophils/100 leukocytes in Blood by Automated count 2022-06-27 18:17:58 0.5 % F Eosinophils/100 leukocytes in Blood by Automated count 2022-06-27 18:17:58 3.2 % F Neutrophils/100 leukocytes in Blood by Automated count 2022-06-27 18:17:58 69.5 % F Monocytes/100 leukocytes in Blood by Automated count 2022-06-27 18:17:58 4.4 % F Lymphocytes/100 leukocytes in Blood by Automated count 2022-06-27 18:17:58 22.3 % F Monocytes [#/volume] in Blood by Automated count 2022-06-27 18:17:58 317.24 Cell/uL F 0.0-1100.0 Eosinophils [#/volume] in Blood by Automated count 2022-06-27 18:17:58 230.72 Cell/uL F 0.0-700.0 Basophils [#/volume] in Blood by Automated count 2022-06-27 18:17:58 36.05 Cell/uL F 0.0-400.0 Lymphocytes [#/volume] in Blood by Automated count 2022-06-27 18:17:58 1607.83 Cell/uL F 1100.0-4800.0 Neutrophils [#/volume] in Blood by Automated count 2022-06-27 18:17:58 5010.95 Cell/uL F 2000.0-8800.0 Leukocytes [#/volume] in Blood by Automated count 2022-06-27 18:17:58 7.2 x 10^3 cells/uL F 4.5-11.0 Monocytes/100 leukocytes in Blood by Automated count 2022-06-27 18:17:58 4.4 % F Lymphocytes/100 leukocytes in Blood by Automated count 2022-06-27 18:17:58 22.3 % F Neutrophils/100 leukocytes in Blood by Automated count 2022-06-27 18:17:58 69.5 % F Lymphocytes [#/volume] in Blood by Automated count 2022-06-27 18:17:58 1607.83 Cell/uL F 1100.0-4800.0 Leukocytes [#/volume] in Blood by Automated count 2022-06-27 18:17:58 7.2 x 10^3 cells/uL F 4.5-11.0 Basophils/100 leukocytes in Blood by Automated count 2022-06-27 18:17:58 0.5 % F Monocytes [#/volume] in Blood by Automated count 2022-06-27 18:17:58 317.24 Cell/uL F 0.0-1100.0 Eosinophils [#/volume] in Blood by Automated count 2022-06-27 18:17:58 230.72 Cell/uL F 0.0-700.0 Neutrophils [#/volume] in Blood by Automated count 2022-06-27 18:17:58 5010.95 Cell/uL F 2000.0-8800.0 Eosinophils/100 leukocytes in Blood by Automated count 2022-06-27 18:17:58 3.2 % F Basophils [#/volume] in Blood by Automated count 2022-06-27 18:17:58 36.05 Cell/uL F 0.0-400.0 Basophils/100 leukocytes in Blood by Automated count 2022-06-27 18:17:58 0.5 % F Neutrophils/100 leukocytes in Blood by Automated count 2022-06-27 18:17:58 69.5 % F Lymphocytes/100 leukocytes in Blood by Automated count 2022-06-27 18:17:58 22.3 % F Monocytes/100 leukocytes in Blood by Automated count 2022-06-27 18:17:58 4.4 % F Eosinophils/100 leukocytes in Blood by Automated count 2022-06-27 18:17:58 3.2 % F Leukocytes [#/volume] in Blood by Automated count 2022-06-27 18:17:58 7.2 x 10^3 cells/uL F 4.5-11.0 Neutrophils [#/volume] in Blood by Automated count 2022-06-27 18:17:58 5010.95 Cell/uL F 2000.0-8800.0 Monocytes [#/volume] in Blood by Automated count 2022-06-27 18:17:58 317.24 Cell/uL F 0.0-1100.0 Basophils [#/volume] in Blood by Automated count 2022-06-27 18:17:58 36.05 Cell/uL F 0.0-400.0 Lymphocytes [#/volume] in Blood by Automated count 2022-06-27 18:17:58 1607.83 Cell/uL F 1100.0-4800.0 Eosinophils [#/volume] in Blood by Automated count 2022-06-27 18:17:58 230.72 Cell/uL F 0.0-700.0 Monocytes/100 leukocytes in Blood by Automated count 2022-05-24 00:53:33 6.5 % F Eosinophils/100 leukocytes in Blood by Automated count 2022-05-24 00:53:33 2.7 % F Neutrophils/100 leukocytes in Blood by Automated count 2022-05-24 00:53:33 68.2 % F Basophils/100 leukocytes in Blood by Automated count 2022-05-24 00:53:33 0.8 % F Lymphocytes/100 leukocytes in Blood by Automated count 2022-05-24 00:53:33 21.9 % F Monocytes [#/volume] in Blood by Automated count 2022-05-24 00:53:33 538.2 Cell/uL F 0.0-1100.0 Basophils [#/volume] in Blood by Automated count 2022-05-24 00:53:33 66.24 Cell/uL F 0.0-400.0 Eosinophils [#/volume] in Blood by Automated count 2022-05-24 00:53:33 223.56 Cell/uL F 0.0-700.0 Lymphocytes [#/volume] in Blood by Automated count 2022-05-24 00:53:33 1813.32 Cell/uL F 1100.0-4800.0 Neutrophils [#/volume] in Blood by Automated count 2022-05-24 00:53:33 5646.96 Cell/uL F 2000.0-8800.0 Leukocytes [#/volume] in Blood by Automated count 2022-05-24 00:53:33 8.3 x 10^3 cells/uL F 4.5-11.0 Basophils/100 leukocytes in Blood by Automated count 2022-05-24 00:53:33 0.8 % F Neutrophils/100 leukocytes in Blood by Automated count 2022-05-24 00:53:33 68.2 % F Monocytes [#/volume] in Blood by Automated count 2022-05-24 00:53:33 538.2 Cell/uL F 0.0-1100.0 Basophils [#/volume] in Blood by Automated count 2022-05-24 00:53:33 66.24 Cell/uL F 0.0-400.0 Lymphocytes [#/volume] in Blood by Automated count 2022-05-24 00:53:33 1813.32 Cell/uL F 1100.0-4800.0 Leukocytes [#/volume] in Blood by Automated count 2022-05-24 00:53:33 8.3 x 10^3 cells/uL F 4.5-11.0 Eosinophils/100 leukocytes in Blood by Automated count 2022-05-24 00:53:33 2.7 % F Monocytes/100 leukocytes in Blood by Automated count 2022-05-24 00:53:33 6.5 % F Lymphocytes/100 leukocytes in Blood by Automated count 2022-05-24 00:53:33 21.9 % F Eosinophils [#/volume] in Blood by Automated count 2022-05-24 00:53:33 223.56 Cell/uL F 0.0-700.0 Neutrophils [#/volume] in Blood by Automated count 2022-05-24 00:53:33 5646.96 Cell/uL F 2000.0-8800.0 MineralBone Disorder Description Draw Date Result/Unit Status Ref Range Result Comments CA CORRECTED 2025-02-18 04:28:09 9.4 mg/dL F CA*PO4 CORRCTD 2025-02-18 04:26:48 89.3 Calc F 21.0-53.0 CA/PHOS PRODUCT 2025-02-18 04:26:48 89.3 Calc F 21.0-53.0 Calcium [Mass/volume] in Serum or Plasma 2025-02-18 04:23:02 9.4 mg/dL F 8.7-10.4 Parathyrin.intact [Mass/volume] in Serum or Plasma 2025-02-17 13:46:21 725 pg/mL F 18.0-80.0 Phosphate [Mass/volume] in Serum or Plasma 2025-02-17 13:23:16 9.5 mg/dL F 2.4-5.1 CA CORRECTED 2025-01-31 20:36:47 9.7 mg/dL F Calcium [Mass/volume] in Serum or Plasma 2025-01-31 20:31:50 9.7 mg/dL F 8.7-10.4 Alkaline phosphatase [Enzymatic activity/volume] in Serum or Plasma 2025-01-31 16:14:12 47 U/L F 46.0-116.0 CA CORRECTED 2025-01-18 06:35:29 10.1 mg/dL F CA*PO4 CORRCTD 2025-01-18 06:32:14 62.6 Calc F 21.0-53.0 CA/PHOS PRODUCT 2025-01-18 06:32:14 62.6 Calc F 21.0-53.0 Calcium [Mass/volume] in Serum or Plasma 2025-01-18 06:20:01 10.1 mg/dL F 8.7-10.4 Phosphate [Mass/volume] in Serum or Plasma 2025-01-18 00:45:21 6.2 mg/dL F 2.4-5.1 Parathyrin.intact [Mass/volume] in Serum or Plasma 2025-01-17 23:51:26 813 pg/mL F 18.0-80.0 Alkaline phosphatase [Enzymatic activity/volume] in Serum or Plasma 2025-01-04 18:40:11 44 U/L F 46.0-116.0 CA CORRECTED 2024-12-22 08:26:41 9.8 mg/dL F CA CORRECTED 2024-12-22 08:26:41 9.8 mg/dL F CA/PHOS PRODUCT 2024-12-22 08:23:58 59.9 Calc F 21.0-53.0 CA*PO4 CORRCTD 2024-12-22 08:23:58 61.9 Calc F 21.0-53.0 CA/PHOS PRODUCT 2024-12-22 08:23:58 59.9 Calc F 21.0-53.0 CA*PO4 CORRCTD 2024-12-22 08:23:58 61.9 Calc F 21.0-53.0 Calcium [Mass/volume] in Serum or Plasma 2024-12-22 07:46:39 9.5 mg/dL F 8.7-10.4 Calcium [Mass/volume] in Serum or Plasma 2024-12-22 07:46:39 9.5 mg/dL F 8.7-10.4 Phosphate [Mass/volume] in Serum or Plasma 2024-12-20 21:37:19 6.3 mg/dL F 2.4-5.1 Phosphate [Mass/volume] in Serum or Plasma 2024-12-20 21:37:19 6.3 mg/dL F 2.4-5.1 Parathyrin.intact [Mass/volume] in Serum or Plasma 2024-12-20 20:52:19 424 pg/mL F 18.0-80.0 Parathyrin.intact [Mass/volume] in Serum or Plasma 2024-12-20 20:52:19 424 pg/mL F 18.0-80.0 Alkaline phosphatase [Enzymatic activity/volume] in Serum or Plasma 2024-11-29 21:05:16 55 U/L F 46.0-116.0 Alkaline phosphatase [Enzymatic activity/volume] in Serum or Plasma 2024-11-29 21:05:16 55 U/L F 46.0-116.0 CA CORRECTED 2024-11-16 07:49:06 10 mg/dL F CA CORRECTED 2024-11-16 07:49:06 10 mg/dL F CA/PHOS PRODUCT 2024-11-16 07:46:59 53.2 Calc F 21.0-53.0 CA*PO4 CORRCTD 2024-11-16 07:46:59 55.9 Calc F 21.0-53.0 CA/PHOS PRODUCT 2024-11-16 07:46:59 53.2 Calc F 21.0-53.0 CA*PO4 CORRCTD 2024-11-16 07:46:59 55.9 Calc F 21.0-53.0 Calcium [Mass/volume] in Serum or Plasma 2024-11-16 07:29:40 9.5 mg/dL F 8.7-10.4 Calcium [Mass/volume] in Serum or Plasma 2024-11-16 07:29:40 9.5 mg/dL F 8.7-10.4 Parathyrin.intact [Mass/volume] in Serum or Plasma 2024-11-16 06:21:15 468 pg/mL F 18.0-80.0 Parathyrin.intact [Mass/volume] in Serum or Plasma 2024-11-16 06:21:15 468 pg/mL F 18.0-80.0 Phosphate [Mass/volume] in Serum or Plasma 2024-11-15 18:36:14 5.6 mg/dL F 2.4-5.1 Phosphate [Mass/volume] in Serum or Plasma 2024-11-15 18:36:14 5.6 mg/dL F 2.4-5.1 Parathyrin.intact [Mass/volume] in Serum or Plasma 2024-11-03 02:53:14 747 pg/mL F 18.0-80.0 Parathyrin.intact [Mass/volume] in Serum or Plasma 2024-11-03 02:53:14 747 pg/mL F 18.0-80.0 CA CORRECTED 2024-10-19 00:12:39 9.4 mg/dL F CA CORRECTED 2024-10-19 00:12:39 9.4 mg/dL F CA CORRECTED 2024-10-19 00:12:39 9.4 mg/dL F CA CORRECTED 2024-10-19 00:12:39 9.4 mg/dL F CA/PHOS PRODUCT 2024-10-19 00:10:44 57.9 Calc F 21.0-53.0 CA*PO4 CORRCTD 2024-10-19 00:10:44 61 Calc F 21.0-53.0 CA*PO4 CORRCTD 2024-10-19 00:10:44 61 Calc F 21.0-53.0 CA/PHOS PRODUCT 2024-10-19 00:10:44 57.9 Calc F 21.0-53.0 CA/PHOS PRODUCT 2024-10-19 00:10:44 57.9 Calc F 21.0-53.0 CA*PO4 CORRCTD 2024-10-19 00:10:44 61 Calc F 21.0-53.0 CA*PO4 CORRCTD 2024-10-19 00:10:44 61 Calc F 21.0-53.0 CA/PHOS PRODUCT 2024-10-19 00:10:44 57.9 Calc F 21.0-53.0 Phosphate [Mass/volume] in Serum or Plasma 2024-10-18 23:40:10 6.5 mg/dL F 2.4-5.1 Calcium [Mass/volume] in Serum or Plasma 2024-10-18 23:40:10 8.9 mg/dL F 8.7-10.4 Calcium [Mass/volume] in Serum or Plasma 2024-10-18 23:40:10 8.9 mg/dL F 8.7-10.4 Phosphate [Mass/volume] in Serum or Plasma 2024-10-18 23:40:10 6.5 mg/dL F 2.4-5.1 Phosphate [Mass/volume] in Serum or Plasma 2024-10-18 23:40:10 6.5 mg/dL F 2.4-5.1 Calcium [Mass/volume] in Serum or Plasma 2024-10-18 23:40:10 8.9 mg/dL F 8.7-10.4 Phosphate [Mass/volume] in Serum or Plasma 2024-10-18 23:40:10 6.5 mg/dL F 2.4-5.1 Calcium [Mass/volume] in Serum or Plasma 2024-10-18 23:40:10 8.9 mg/dL F 8.7-10.4 Alkaline phosphatase [Enzymatic activity/volume] in Serum or Plasma 2024-10-18 18:36:16 53 U/L F 46.0-116.0 Alkaline phosphatase [Enzymatic activity/volume] in Serum or Plasma 2024-10-18 18:36:16 53 U/L F 46.0-116.0 Alkaline phosphatase [Enzymatic activity/volume] in Serum or Plasma 2024-10-18 18:36:16 53 U/L F 46.0-116.0 Alkaline phosphatase [Enzymatic activity/volume] in Serum or Plasma 2024-10-18 18:36:16 53 U/L F 46.0-116.0 CA CORRECTED 2024-09-21 04:17:19 9.7 mg/dL F CA CORRECTED 2024-09-21 04:17:19 9.7 mg/dL F CA CORRECTED 2024-09-21 04:17:19 9.7 mg/dL F CA/PHOS PRODUCT 2024-09-21 04:15:24 57 Calc F 21.0-53.0 CA*PO4 CORRCTD 2024-09-21 04:15:24 60 Calc F 21.0-53.0 CA*PO4 CORRCTD 2024-09-21 04:15:24 60 Calc F 21.0-53.0 CA/PHOS PRODUCT 2024-09-21 04:15:24 57 Calc F 21.0-53.0 CA*PO4 CORRCTD 2024-09-21 04:15:24 60 Calc F 21.0-53.0 CA/PHOS PRODUCT 2024-09-21 04:15:24 57 Calc F 21.0-53.0 Calcium [Mass/volume] in Serum or Plasma 2024-09-21 04:01:49 9.2 mg/dL F 8.7-10.4 Phosphate [Mass/volume] in Serum or Plasma 2024-09-21 04:01:49 6.2 mg/dL F 2.4-5.1 Phosphate [Mass/volume] in Serum or Plasma 2024-09-21 04:01:49 6.2 mg/dL F 2.4-5.1 Calcium [Mass/volume] in Serum or Plasma 2024-09-21 04:01:49 9.2 mg/dL F 8.7-10.4 Phosphate [Mass/volume] in Serum or Plasma 2024-09-21 04:01:49 6.2 mg/dL F 2.4-5.1 Calcium [Mass/volume] in Serum or Plasma 2024-09-21 04:01:49 9.2 mg/dL F 8.7-10.4 Parathyrin.intact [Mass/volume] in Serum or Plasma 2024-09-20 15:27:15 537 pg/mL F 18.0-80.0 Parathyrin.intact [Mass/volume] in Serum or Plasma 2024-09-20 15:27:15 537 pg/mL F 18.0-80.0 Parathyrin.intact [Mass/volume] in Serum or Plasma 2024-09-20 15:27:15 537 pg/mL F 18.0-80.0 Alkaline phosphatase [Enzymatic activity/volume] in Serum or Plasma 2024-08-30 13:31:22 63 U/L F 46.0-116.0 CA CORRECTED 2024-08-17 12:10:23 8.8 mg/dL F CA*PO4 CORRCTD 2024-08-17 12:08:49 53 Calc F 21.0-53.0 CA/PHOS PRODUCT 2024-08-17 12:08:49 51.6 Calc F 21.0-53.0 Phosphate [Mass/volume] in Serum or Plasma 2024-08-17 08:06:32 6 mg/dL F 2.4-5.1 Calcium [Mass/volume] in Serum or Plasma 2024-08-17 08:06:32 8.6 mg/dL F 8.7-10.4 Parathyrin.intact [Mass/volume] in Serum or Plasma 2024-08-17 04:33:21 656 pg/mL F 18.0-80.0 Alkaline phosphatase [Enzymatic activity/volume] in Serum or Plasma 2024-08-03 01:54:13 68 U/L F 46.0-116.0 Alkaline phosphatase [Enzymatic activity/volume] in Serum or Plasma 2024-07-07 14:39:21 65 U/L F 46.0-116.0 Alkaline phosphatase [Enzymatic activity/volume] in Serum or Plasma 2024-07-07 14:39:21 65 U/L F 46.0-116.0 Alkaline phosphatase [Enzymatic activity/volume] in Serum or Plasma 2024-07-07 14:39:21 65 U/L F 46.0-116.0 Alkaline phosphatase [Enzymatic activity/volume] in Serum or Plasma 2024-06-01 17:55:17 65 U/L F 46.0-116.0 Alkaline phosphatase [Enzymatic activity/volume] in Serum or Plasma 2024-06-01 17:55:17 65 U/L F 46.0-116.0 Alkaline phosphatase [Enzymatic activity/volume] in Serum or Plasma 2024-05-04 22:42:24 62 U/L F 46.0-116.0 Alkaline phosphatase [Enzymatic activity/volume] in Serum or Plasma 2024-05-04 22:42:24 62 U/L F 46.0-116.0 Alkaline phosphatase [Enzymatic activity/volume] in Serum or Plasma 2024-04-06 16:48:25 53 U/L F 46.0-116.0 Alkaline phosphatase [Enzymatic activity/volume] [...] Plasma 2023-08-13 06:39:51 592 pg/mL F 18.0-80.0 Parathyrin.intact [Mass/volume] in Serum or Plasma 2023-08-13 06:39:51 592 pg/mL F 18.0-80.0 CA CORRECTED 2023-08-13 06:17:55 9.3 mg/dL F CA CORRECTED 2023-08-13 06:17:55 9.3 mg/dL F CA*PO4 CORRCTD 2023-08-13 06:14:20 34.4 Calc F 21.0-53.0 CA/PHOS PRODUCT 2023-08-13 06:14:20 33.7 Calc F 21.0-53.0 CA/PHOS PRODUCT 2023-08-13 06:14:20 33.7 Calc F 21.0-53.0 CA*PO4 CORRCTD 2023-08-13 06:14:20 34.4 Calc F 21.0-53.0 Calcium [Mass/volume] in Serum or Plasma 2023-08-13 06:06:39 9.1 mg/dL F 8.7-10.4 Calcium [Mass/volume] in Serum or Plasma 2023-08-13 06:06:39 9.1 mg/dL F 8.7-10.4 Phosphate [Mass/volume] in Serum or Plasma 2023-08-12 19:43:19 3.7 mg/dL F 2.4-5.1 Phosphate [Mass/volume] in Serum or Plasma 2023-08-12 19:43:19 3.7 mg/dL F 2.4-5.1 Alkaline phosphatase [Enzymatic activity/volume] in Serum or Plasma 2023-08-05 19:19:33 93 U/L F 46.0-116.0 Alkaline phosphatase [Enzymatic activity/volume] in Serum or Plasma 2023-08-05 19:19:33 93 U/L F 46.0-116.0 CA CORRECTED 2023-08-01 06:14:04 9.8 mg/dL F CA CORRECTED 2023-08-01 06:14:04 9.8 mg/dL F CA/PHOS PRODUCT 2023-08-01 06:05:33 19 Calc F 21.0-53.0 CA*PO4 CORRCTD 2023-08-01 06:05:33 19.6 Calc F 21.0-53.0 CA/PHOS PRODUCT 2023-08-01 06:05:33 19 Calc F 21.0-53.0 CA*PO4 CORRCTD 2023-08-01 06:05:33 19.6 Calc F 21.0-53.0 Calcium [Mass/volume] in Serum [...] Plasma 2023-07-31 23:43:59 91 U/L F 46.0-116.0 Parathyrin.intact [Mass/volume] in Serum or Plasma 2023-07-31 [...] CA CORRECTED 2023-05-30 04:17:52 8.8 mg/dL F CA/PHOS PRODUCT 2023-05-30 04:15:51 58.3 Calc F 21.0-53.0 CA*PO4 CORRCTD 2023-05-30 04:15:51 59 Calc F 21.0-53.0 Calcium [Mass/volume] in Serum [...] CA CORRECTED 2023-04-25 06:50:50 8.8 mg/dL F CA CORRECTED 2023-04-25 06:50:50 8.8 mg/dL F CA*PO4 CORRCTD 2023-04-25 06:37:37 65.1 Calc F 21.0-53.0 CA/PHOS PRODUCT 2023-04-25 06:37:37 65.1 Calc F 21.0-53.0 CA/PHOS PRODUCT 2023-04-25 06:37:37 65.1 Calc F 21.0-53.0 CA*PO4 CORRCTD 2023-04-25 06:37:37 65.1 Calc F 21.0-53.0 Calcium [Mass/volume] in Serum or Plasma 2023-04-25 06:22:49 8.8 mg/dL F 8.7-10.4 Calcium [Mass/volume] in Serum or Plasma 2023-04-25 06:22:49 8.8 mg/dL F 8.7-10.4 Parathyrin.intact [Mass/volume] in Serum or Plasma 2023-04-25 02:33:49 714 pg/mL F 18.0-80.0 Parathyrin.intact [Mass/volume] in Serum or Plasma 2023-04-25 02:33:49 714 pg/mL F 18.0-80.0 Phosphate [Mass/volume] in Serum or Plasma 2023-04-24 23:09:39 7.4 mg/dL F 2.4-5.1 Alkaline phosphatase [Enzymatic activity/volume] in Serum or Plasma 2023-04-24 23:09:39 56 U/L F 46.0-116.0 Phosphate [Mass/volume] in Serum or Plasma 2023-04-24 [...] CORRCTD 2023-03-28 04:08:01 44.2 Calc F 21.0-53.0 Calcium [Mass/volume] in Serum [...] CA CORRECTED 2023-02-28 04:16:23 8.9 mg/dL F CA*PO4 CORRCTD 2023-02-28 04:13:54 44.5 Calc F [...] Plasma 2023-02-27 17:53:34 80 U/L F 46.0-116.0 CA CORRECTED 2023-01-31 05:46:01 8.9 mg/dL F CA CORRECTED 2023-01-31 05:46:01 8.9 mg/dL F CA/PHOS PRODUCT 2023-01-31 05:39:38 39.2 Calc F [...] Plasma 2023-01-30 22:43:25 62 U/L F 46.0-116.0 CA CORRECTED 2022-12-20 19:24:01 9.1 mg/dL F [...] CA CORRECTED 2022-08-06 18:24:03 9 mg/dL F CA*PO4 CORRCTD 2022-08-06 18:22:57 18 Calc F 21.0-53.0 CA/PHOS PRODUCT 2022-08-06 18:22:57 17.6 Calc F 21.0-53.0 CA*PO4 CORRCTD 2022-08-06 18:22:57 18 Calc F 21.0-53.0 CA/PHOS PRODUCT 2022-08-06 18:22:57 17.6 Calc F 21.0-53.0 Calcium [Mass/volume] in Serum [...] Plasma 2022-08-06 15:00:59 73 U/L F 46.0-116.0 CA CORRECTED 2022-06-29 08:24:58 8.9 mg/dL F CA CORRECTED 2022-06-29 08:24:58 8.9 mg/dL F CA CORRECTED 2022-06-29 08:24:58 8.9 mg/dL F CA*PO4 CORRCTD 2022-06-28 07:16:36 11.6 Calc F 21.0-53.0 CA/PHOS PRODUCT 2022-06-28 07:16:36 11.6 Calc F 21.0-53.0 CA*PO4 CORRCTD 2022-06-28 07:16:36 11.6 Calc F 21.0-53.0 CA/PHOS PRODUCT 2022-06-28 07:16:36 11.6 Calc F 21.0-53.0 CA/PHOS PRODUCT 2022-06-28 07:16:36 11.6 Calc F 21.0-53.0 CA*PO4 CORRCTD 2022-06-28 07:16:36 11.6 Calc F 21.0-53.0 Calcium [Mass/volume] in Serum or Plasma 2022-06-28 05:27:12 8.9 mg/dL F 8.7-10.4 Calcium [Mass/volume] in Serum or Plasma 2022-06-28 05:27:12 8.9 mg/dL F 8.7-10.4 Calcium [Mass/volume] in Serum or Plasma 2022-06-28 05:27:12 8.9 mg/dL F 8.7-10.4 Parathyrin.intact [Mass/volume] in Serum or Plasma 2022-06-28 01:31:11 298 pg/mL F 18.0-80.0 Parathyrin.intact [Mass/volume] in Serum or Plasma 2022-06-28 01:31:11 298 pg/mL F 18.0-80.0 Parathyrin.intact [Mass/volume] in Serum or Plasma 2022-06-28 01:31:11 298 pg/mL F 18.0-80.0 Phosphate [Mass/volume] in Serum or Plasma 2022-06-28 00:23:52 1.3 mg/dL F 2.4-5.1 Alkaline phosphatase [Enzymatic activity/volume] in Serum or Plasma 2022-06-28 00:23:52 60 U/L F 46.0-116.0 Phosphate [Mass/volume] in Serum or Plasma 2022-06-28 00:23:52 1.3 mg/dL F 2.4-5.1 Alkaline phosphatase [Enzymatic activity/volume] in Serum or Plasma 2022-06-28 00:23:52 60 U/L F 46.0-116.0 Alkaline phosphatase [Enzymatic activity/volume] in Serum or Plasma 2022-06-28 00:23:52 60 U/L F 46.0-116.0 Phosphate [Mass/volume] in Serum or Plasma 2022-06-28 00:23:52 1.3 mg/dL F 2.4-5.1 CA CORRECTED 2022-05-24 00:29:44 8.4 mg/dL F CA CORRECTED 2022-05-24 00:29:44 8.4 mg/dL F CA*PO4 CORRCTD 2022-05-24 00:19:00 45.4 Calc F [...] Plasma 2022-05-23 21:59:43 10.2 ng/mL F 30.0-100.0 Magnesium [Mass/volume] in Serum or Plasma 2022-05-23 [...] Plasma 2022-05-23 20:51:42 50 U/L F 46.0-116.0 Magnesium [Mass/volume] in Serum or Plasma 2022-05-23 20:51:42 2.5 mg/dL F 1.3-2.7 CA CORRECTED CA*PO4 CORRCTD Calcium [Mass/volume] in Serum or Plasma CA/PHOS PRODUCT Phosphate [Mass/volume] in Serum or Plasma Phosphate [Mass/volume] in Serum or Plasma CA CORRECTED CA/PHOS PRODUCT CA*PO4 CORRCTD Calcium [Mass/volume] in Serum or Plasma Parathyrin.intact [Mass/volume] in Serum or Plasma Parathyrin.intact [Mass/volume] in Serum or Plasma CA/PHOS PRODUCT CA*PO4 CORRCTD CA CORRECTED F Nutrition Description Draw Date Result/Unit Status Ref Range Result Comments Potassium [Moles/volume] in Serum or Plasma 2025-01-31 20:31:50 4.8 mEq/L F 3.5-5.1 A/G RATIO 2025-01-31 16:15:27 1.3 Calc F 1.0-2.5 GLOBULIN 2025-01-31 16:15:27 3.2 g/dL F 0.9-5.0 Albumin [Mass/volume] in Serum or Plasma by Bromocresol green (BCG) dye binding method 2025-01-31 16:14:12 4.1 g/dL F 3.2-4.8 Lactate dehydrogenase [Enzymatic activity/volume] in Serum or Plasma 2025-01-31 16:14:12 132 U/L F 120.0-246.0 Bicarbonate [Moles/volume] in Serum or Plasma 2025-01-31 16:14:12 22 mEq/L F 20.0-31.0 Protein [Mass/volume] in Serum or Plasma 2025-01-31 16:14:12 7.3 g/dL F 5.7-8.2 Potassium [Moles/volume] in Serum or Plasma 2025-01-04 23:37:49 4.4 mEq/L F 3.5-5.1 GLOBULIN 2025-01-04 18:40:52 3.2 g/dL F 0.9-5.0 A/G RATIO 2025-01-04 18:40:52 1.3 Calc F 1.0-2.5 Bicarbonate [Moles/volume] in Serum or Plasma 2025-01-04 18:40:11 24 mEq/L F 20.0-31.0 Albumin [Mass/volume] in Serum or Plasma by Bromocresol green (BCG) dye binding method 2025-01-04 18:40:11 4 g/dL F 3.2-4.8 Lactate dehydrogenase [Enzymatic activity/volume] in Serum or Plasma 2025-01-04 18:40:11 139 U/L F 120.0-246.0 Protein [Mass/volume] in Serum or Plasma 2025-01-04 18:40:11 7.2 g/dL F 5.7-8.2 Potassium [Moles/volume] in Serum or Plasma 2024-11-30 06:40:18 4.3 mEq/L F 3.5-5.1 Potassium [Moles/volume] in Serum or Plasma 2024-11-30 06:40:18 4.3 mEq/L F 3.5-5.1 A/G RATIO 2024-11-29 21:05:51 1.1 Calc F 1.0-2.5 GLOBULIN 2024-11-29 21:05:51 3.3 g/dL F 0.9-5.0 GLOBULIN 2024-11-29 21:05:51 3.3 g/dL F 0.9-5.0 A/G RATIO 2024-11-29 21:05:51 1.1 Calc F 1.0-2.5 Albumin [Mass/volume] in Serum or Plasma by Bromocresol green (BCG) dye binding method 2024-11-29 21:05:16 3.6 g/dL F 3.2-4.8 Bicarbonate [Moles/volume] in Serum or Plasma 2024-11-29 21:05:16 22 mEq/L F 20.0-31.0 Lactate dehydrogenase [Enzymatic activity/volume] in Serum or Plasma 2024-11-29 21:05:16 154 U/L F 120.0-246.0 Protein [Mass/volume] in Serum or Plasma 2024-11-29 21:05:16 6.9 g/dL F 5.7-8.2 Lactate dehydrogenase [Enzymatic activity/volume] in Serum or Plasma 2024-11-29 21:05:16 154 U/L F 120.0-246.0 Bicarbonate [Moles/volume] in Serum or Plasma 2024-11-29 21:05:16 22 mEq/L F 20.0-31.0 Albumin [Mass/volume] in Serum or Plasma by Bromocresol green (BCG) dye binding method 2024-11-29 21:05:16 3.6 g/dL F 3.2-4.8 Protein [Mass/volume] in Serum or Plasma 2024-11-29 21:05:16 6.9 g/dL F 5.7-8.2 Potassium [Moles/volume] in Serum or Plasma 2024-10-18 23:40:10 4.4 mEq/L F 3.5-5.5 Potassium [Moles/volume] in Serum or Plasma 2024-10-18 23:40:10 4.4 mEq/L F 3.5-5.5 Potassium [Moles/volume] in Serum or Plasma 2024-10-18 23:40:10 4.4 mEq/L F 3.5-5.5 Potassium [Moles/volume] in Serum or Plasma 2024-10-18 23:40:10 4.4 mEq/L F 3.5-5.5 Folate [Mass/volume] in Serum or Plasma 2024-10-18 19:42:17 11.3 ng/mL F 5.5-16.0 Folate [Mass/volume] in Serum or Plasma 2024-10-18 19:42:17 11.3 ng/mL F 5.5-16.0 Folate [Mass/volume] in Serum or Plasma 2024-10-18 19:42:17 11.3 ng/mL F 5.5-16.0 Folate [Mass/volume] in Serum or Plasma 2024-10-18 19:42:17 11.3 ng/mL F 5.5-16.0 GLOBULIN 2024-10-18 18:37:30 3.1 g/dL F 0.9-5.0 A/G RATIO 2024-10-18 18:37:30 1.1 Calc F 1.0-2.5 GLOBULIN 2024-10-18 18:37:30 3.1 g/dL F 0.9-5.0 A/G RATIO 2024-10-18 18:37:30 1.1 Calc F 1.0-2.5 A/G RATIO 2024-10-18 18:37:30 1.1 Calc F 1.0-2.5 GLOBULIN 2024-10-18 18:37:30 3.1 g/dL F 0.9-5.0 GLOBULIN 2024-10-18 18:37:30 3.1 g/dL F 0.9-5.0 A/G RATIO 2024-10-18 18:37:30 1.1 Calc F 1.0-2.5 Lactate dehydrogenase [Enzymatic activity/volume] in Serum or Plasma 2024-10-18 18:36:16 147 U/L F 120.0-246.0 Bicarbonate [Moles/volume] in Serum or Plasma 2024-10-18 18:36:16 25 mEq/L F 20.0-31.0 Albumin [Mass/volume] in Serum or Plasma by Bromocresol green (BCG) dye binding method 2024-10-18 18:36:16 3.4 g/dL F 3.4-4.8 Protein [Mass/volume] in Serum or Plasma 2024-10-18 18:36:16 6.5 g/dL F 5.7-8.2 Lactate dehydrogenase [Enzymatic activity/volume] in Serum or Plasma 2024-10-18 18:36:16 147 U/L F 120.0-246.0 Albumin [Mass/volume] in Serum or Plasma by Bromocresol green (BCG) dye binding method 2024-10-18 18:36:16 3.4 g/dL F 3.4-4.8 Protein [Mass/volume] in Serum or Plasma 2024-10-18 18:36:16 6.5 g/dL F 5.7-8.2 Bicarbonate [Moles/volume] in Serum or Plasma 2024-10-18 18:36:16 25 mEq/L F 20.0-31.0 Lactate dehydrogenase [Enzymatic activity/volume] in Serum or Plasma 2024-10-18 18:36:16 147 U/L F 120.0-246.0 Bicarbonate [Moles/volume] in Serum or Plasma 2024-10-18 18:36:16 25 mEq/L F 20.0-31.0 Albumin [Mass/volume] in Serum or Plasma by Bromocresol green (BCG) dye binding method 2024-10-18 18:36:16 3.4 g/dL F 3.4-4.8 Protein [Mass/volume] in Serum or Plasma 2024-10-18 18:36:16 6.5 g/dL F 5.7-8.2 Lactate dehydrogenase [Enzymatic activity/volume] in Serum or Plasma 2024-10-18 18:36:16 147 U/L F 120.0-246.0 Bicarbonate [Moles/volume] in Serum or Plasma 2024-10-18 18:36:16 25 mEq/L F 20.0-31.0 Albumin [Mass/volume] in Serum or Plasma by Bromocresol green (BCG) dye binding method 2024-10-18 18:36:16 3.4 g/dL F 3.4-4.8 Protein [Mass/volume] in Serum or Plasma 2024-10-18 18:36:16 6.5 g/dL F 5.7-8.2 Potassium [Moles/volume] in Serum or Plasma 2024-08-30 19:37:39 4.3 mEq/L F 3.5-5.5 GLOBULIN 2024-08-30 13:32:23 3.1 g/dL F 0.9-5.0 A/G RATIO 2024-08-30 13:32:23 1.1 Calc F 1.0-2.5 Lactate dehydrogenase [Enzymatic activity/volume] in Serum or Plasma 2024-08-30 13:31:22 148 U/L F 120.0-246.0 Bicarbonate [Moles/volume] in Serum or Plasma 2024-08-30 13:31:22 22 mEq/L F 20.0-31.0 Albumin [Mass/volume] in Serum or Plasma by Bromocresol green (BCG) dye binding method 2024-08-30 13:31:22 3.4 g/dL F 3.4-4.8 Protein [Mass/volume] in Serum or Plasma 2024-08-30 13:31:22 6.5 g/dL F 5.7-8.2 Potassium [Moles/volume] in Serum or Plasma 2024-08-03 07:12:09 4.2 mEq/L F 3.5-5.5 GLOBULIN 2024-08-03 01:55:12 2.9 g/dL F 0.9-5.0 A/G RATIO 2024-08-03 01:55:12 1.3 Calc F 1.0-2.5 Lactate dehydrogenase [Enzymatic activity/volume] in Serum or Plasma 2024-08-03 01:54:13 152 U/L F 120.0-246.0 Bicarbonate [Moles/volume] in Serum or Plasma 2024-08-03 01:54:13 22 mEq/L F 20.0-31.0 Albumin [Mass/volume] in Serum or Plasma by Bromocresol green (BCG) dye binding method 2024-08-03 01:54:13 3.7 g/dL F 3.4-4.8 Protein [Mass/volume] in Serum or Plasma 2024-08-03 01:54:13 6.6 g/dL F 5.7-8.2 Potassium [Moles/volume] in Serum or Plasma 2024-07-07 18:59:22 4.4 mEq/L F 3.5-5.5 Potassium [Moles/volume] in Serum or Plasma 2024-07-07 18:59:22 4.4 mEq/L F 3.5-5.5 Potassium [Moles/volume] in Serum or Plasma 2024-07-07 18:59:22 4.4 mEq/L F 3.5-5.5 GLOBULIN 2024-07-07 14:40:06 3 g/dL F 0.9-5.0 A/G RATIO 2024-07-07 14:40:06 1.2 Calc F 1.0-2.5 GLOBULIN 2024-07-07 14:40:06 3 g/dL F 0.9-5.0 A/G RATIO 2024-07-07 14:40:06 1.2 Calc F 1.0-2.5 GLOBULIN 2024-07-07 14:40:06 3 g/dL F 0.9-5.0 A/G RATIO 2024-07-07 14:40:06 1.2 Calc F 1.0-2.5 Lactate dehydrogenase [Enzymatic activity/volume] in Serum or Plasma 2024-07-07 14:39:21 145 U/L F 120.0-246.0 Bicarbonate [Moles/volume] in Serum or Plasma 2024-07-07 14:39:21 21 mEq/L F 20.0-31.0 Albumin [Mass/volume] in Serum or Plasma by Bromocresol green (BCG) dye binding method 2024-07-07 14:39:21 3.7 g/dL F 3.4-4.8 Protein [Mass/volume] in Serum or Plasma 2024-07-07 14:39:21 6.7 g/dL F 5.7-8.2 Albumin [Mass/volume] in Serum or Plasma by Bromocresol green (BCG) dye binding method 2024-07-07 14:39:21 3.7 g/dL F 3.4-4.8 Lactate dehydrogenase [Enzymatic activity/volume] in Serum or Plasma 2024-07-07 14:39:21 145 U/L F 120.0-246.0 Bicarbonate [Moles/volume] in Serum or Plasma 2024-07-07 14:39:21 21 mEq/L F 20.0-31.0 Protein [Mass/volume] in Serum or Plasma 2024-07-07 14:39:21 6.7 g/dL F 5.7-8.2 Albumin [Mass/volume] in Serum or Plasma by Bromocresol green (BCG) dye binding method 2024-07-07 14:39:21 3.7 g/dL F 3.4-4.8 Bicarbonate [Moles/volume] in Serum or Plasma 2024-07-07 14:39:21 21 mEq/L F 20.0-31.0 Lactate dehydrogenase [Enzymatic activity/volume] in Serum or Plasma 2024-07-07 14:39:21 145 U/L F 120.0-246.0 Protein [Mass/volume] in Serum or Plasma 2024-07-07 14:39:21 6.7 g/dL F 5.7-8.2 Potassium [Moles/volume] in Serum or Plasma 2024-06-02 04:56:01 4.7 mEq/L F 3.5-5.5 Potassium [Moles/volume] in Serum or Plasma 2024-06-02 04:56:01 4.7 mEq/L F 3.5-5.5 GLOBULIN 2024-06-01 17:56:32 2.9 g/dL F 0.9-5.0 A/G RATIO 2024-06-01 17:56:32 1.3 Calc F 1.0-2.5 GLOBULIN 2024-06-01 17:56:32 2.9 g/dL F 0.9-5.0 A/G RATIO 2024-06-01 17:56:32 1.3 Calc F 1.0-2.5 Bicarbonate [Moles/volume] in Serum or Plasma 2024-06-01 17:55:17 22 mEq/L F 20.0-31.0 Albumin [Mass/volume] in Serum or Plasma by Bromocresol green (BCG) dye binding method 2024-06-01 17:55:17 3.7 g/dL F 3.4-4.8 Protein [Mass/volume] in Serum or Plasma 2024-06-01 17:55:17 6.6 g/dL F 5.7-8.2 Lactate dehydrogenase [Enzymatic activity/volume] in Serum or Plasma 2024-06-01 17:55:17 156 U/L F 120.0-246.0 Lactate dehydrogenase [Enzymatic activity/volume] in Serum or Plasma 2024-06-01 17:55:17 156 U/L F 120.0-246.0 Bicarbonate [Moles/volume] in Serum or Plasma 2024-06-01 17:55:17 22 mEq/L F 20.0-31.0 Albumin [Mass/volume] in Serum or Plasma by Bromocresol green (BCG) dye binding method 2024-06-01 17:55:17 3.7 g/dL F 3.4-4.8 Protein [Mass/volume] in Serum or Plasma 2024-06-01 [...] RATIO 2024-05-04 22:43:32 1.3 Calc F 1.0-2.5 Lactate dehydrogenase [Enzymatic [...] Plasma 2024-05-04 22:42:24 138 U/L F 120.0-246.0 Bicarbonate [Moles/volume] in Serum or Plasma 2024-05-04 22:42:24 24 mEq/L F 20.0-31.0 Albumin [Mass/volume] in Serum or Plasma by Bromocresol green (BCG) dye binding method 2024-05-04 22:42:24 4.1 g/dL F 3.4-4.8 Protein [Mass/volume] in Serum or Plasma 2024-05-04 22:42:24 7.2 g/dL F 5.7-8.2 Potassium [Moles/volume] in Serum or Plasma 2024-04-06 17:52:08 4.5 mEq/L F 3.5-5.5 GLOBULIN 2024-04-06 16:48:44 3.2 g/dL F 0.9-5.0 A/G RATIO 2024-04-06 16:48:44 1.3 Calc F 1.0-2.5 Lactate dehydrogenase [Enzymatic activity/volume] in Serum or Plasma 2024-04-06 16:48:25 146 U/L F 120.0-246.0 Bicarbonate [Moles/volume] in Serum or Plasma 2024-04-06 16:48:25 23 mEq/L F 20.0-31.0 Albumin [Mass/volume] in Serum or Plasma by Bromocresol green (BCG) dye binding method 2024-04-06 16:48:25 4.2 g/dL F 3.4-4.8 Protein [Mass/volume] in Serum or Plasma 2024-04-06 16:48:25 7.4 g/dL F 5.7-8.2 Potassium [Moles/volume] in Serum or Plasma 2024-03-03 04:17:16 4.8 mEq/L F 3.5-5.5 GLOBULIN 2024-03-02 15:27:25 3.5 g/dL F 0.9-5.0 A/G RATIO 2024-03-02 15:27:25 1.2 Calc F 1.0-2.5 Lactate dehydrogenase [Enzymatic activity/volume] in Serum or Plasma 2024-03-02 15:27:19 145 U/L F 120.0-246.0 Bicarbonate [Moles/volume] in Serum or Plasma 2024-03-02 15:27:19 21 mEq/L F 20.0-31.0 Albumin [Mass/volume] in Serum or Plasma by Bromocresol green (BCG) dye binding method 2024-03-02 15:27:19 4.2 g/dL F 3.4-4.8 Protein [Mass/volume] in Serum or Plasma 2024-03-02 15:27:19 7.7 g/dL F 5.7-8.2 Potassium [Moles/volume] in Serum or Plasma 2024-02-03 18:28:40 5 mEq/L F 3.5-5.5 Potassium [Moles/volume] in Serum or Plasma 2024-02-03 18:28:40 5 mEq/L F 3.5-5.5 Potassium [Moles/volume] in Serum or Plasma 2024-02-03 18:28:40 5 mEq/L F 3.5-5.5 GLOBULIN 2024-02-03 15:11:55 3.1 g/dL F 0.9-5.0 A/G RATIO 2024-02-03 15:11:55 1.3 Calc F 1.0-2.5 A/G RATIO 2024-02-03 15:11:55 1.3 Calc F 1.0-2.5 GLOBULIN 2024-02-03 15:11:55 3.1 g/dL F 0.9-5.0 GLOBULIN 2024-02-03 15:11:55 3.1 g/dL F 0.9-5.0 A/G RATIO 2024-02-03 15:11:55 1.3 Calc F 1.0-2.5 Bicarbonate [Moles/volume] in Serum or Plasma 2024-02-03 15:11:30 23 mEq/L F 20.0-31.0 Protein [Mass/volume] in Serum or Plasma 2024-02-03 15:11:30 7.2 g/dL F 5.7-8.2 Lactate dehydrogenase [Enzymatic activity/volume] in Serum or Plasma 2024-02-03 15:11:30 133 U/L F 120.0-246.0 Albumin [Mass/volume] in Serum or Plasma by Bromocresol green (BCG) dye binding method 2024-02-03 15:11:30 4.1 g/dL F 3.4-4.8 Albumin [Mass/volume] in Serum or Plasma by Bromocresol green (BCG) dye binding method 2024-02-03 15:11:30 4.1 g/dL F 3.4-4.8 Bicarbonate [Moles/volume] in Serum or Plasma 2024-02-03 15:11:30 23 mEq/L F 20.0-31.0 Lactate dehydrogenase [Enzymatic activity/volume] in Serum or Plasma 2024-02-03 15:11:30 133 U/L F 120.0-246.0 Protein [Mass/volume] in Serum or Plasma 2024-02-03 15:11:30 7.2 g/dL F 5.7-8.2 Lactate dehydrogenase [Enzymatic activity/volume] in Serum or Plasma 2024-02-03 15:11:30 133 U/L F 120.0-246.0 Bicarbonate [Moles/volume] in Serum or Plasma 2024-02-03 15:11:30 23 mEq/L F 20.0-31.0 Albumin [Mass/volume] in Serum or Plasma by Bromocresol green (BCG) dye binding method 2024-02-03 15:11:30 4.1 g/dL F 3.4-4.8 Protein [Mass/volume] in Serum or Plasma 2024-02-03 15:11:30 7.2 g/dL F 5.7-8.2 Potassium [Moles/volume] in Serum or Plasma 2023-12-31 06:07:52 4.1 mEq/L F 3.5-5.5 Potassium [Moles/volume] in Serum or Plasma 2023-12-31 06:07:52 4.1 mEq/L F 3.5-5.5 GLOBULIN 2023-12-30 18:38:58 3.1 g/dL F 0.9-5.0 A/G RATIO 2023-12-30 18:38:58 1.3 Calc F 1.0-2.5 GLOBULIN 2023-12-30 18:38:58 3.1 g/dL F 0.9-5.0 A/G RATIO 2023-12-30 18:38:58 1.3 Calc F 1.0-2.5 Lactate dehydrogenase [Enzymatic activity/volume] in Serum or Plasma 2023-12-30 18:38:42 150 U/L F 120.0-246.0 Bicarbonate [Moles/volume] in Serum or Plasma 2023-12-30 18:38:42 25 mEq/L F 20.0-31.0 Albumin [Mass/volume] in Serum or Plasma by Bromocresol green (BCG) dye binding method 2023-12-30 18:38:42 4 g/dL F 3.4-4.8 Protein [Mass/volume] in Serum or Plasma 2023-12-30 18:38:42 7.1 g/dL F 5.7-8.2 Lactate dehydrogenase [Enzymatic activity/volume] in Serum or Plasma 2023-12-30 18:38:42 150 U/L F 120.0-246.0 Bicarbonate [Moles/volume] in Serum or Plasma 2023-12-30 18:38:42 25 mEq/L F 20.0-31.0 Albumin [Mass/volume] in Serum or Plasma by Bromocresol green (BCG) dye binding method 2023-12-30 18:38:42 4 g/dL F 3.4-4.8 Protein [Mass/volume] in Serum or Plasma 2023-12-30 18:38:42 7.1 g/dL F 5.7-8.2 Potassium [Moles/volume] in Serum or Plasma 2023-12-03 04:14:12 3.9 mEq/L F 3.5-5.5 GLOBULIN 2023-12-02 16:53:42 3 g/dL F 0.9-5.0 A/G RATIO 2023-12-02 16:53:42 1.3 Calc F 1.0-2.5 Lactate dehydrogenase [Enzymatic activity/volume] in Serum or Plasma 2023-12-02 16:53:35 150 U/L F 120.0-246.0 Bicarbonate [Moles/volume] in Serum or Plasma 2023-12-02 16:53:35 24 mEq/L F 20.0-31.0 Albumin [Mass/volume] in Serum or Plasma by Bromocresol green (BCG) dye binding method 2023-12-02 16:53:35 3.9 g/dL F 3.4-4.8 Protein [Mass/volume] in Serum or Plasma 2023-12-02 16:53:35 6.9 g/dL F 5.7-8.2 Potassium [Moles/volume] in Serum or Plasma 2023-11-05 04:51:12 3.7 mEq/L F 3.5-5.5 Potassium [Moles/volume] in Serum or Plasma 2023-11-05 04:51:12 3.7 mEq/L F 3.5-5.5 A/G RATIO 2023-11-04 17:42:55 1.3 Calc F 1.0-2.5 GLOBULIN 2023-11-04 17:42:55 3 g/dL F 0.9-5.0 GLOBULIN 2023-11-04 17:42:55 3 g/dL F 0.9-5.0 A/G RATIO 2023-11-04 17:42:55 1.3 Calc F 1.0-2.5 Protein [Mass/volume] in Serum or Plasma 2023-11-04 17:42:37 6.8 g/dL F 5.7-8.2 Albumin [Mass/volume] in Serum or Plasma by Bromocresol green (BCG) dye binding method 2023-11-04 17:42:37 3.8 g/dL F 3.4-4.8 Lactate dehydrogenase [Enzymatic activity/volume] in Serum or Plasma 2023-11-04 17:42:37 131 U/L F 120.0-246.0 Bicarbonate [Moles/volume] in Serum or Plasma 2023-11-04 17:42:37 22 mEq/L F 20.0-31.0 Lactate dehydrogenase [Enzymatic activity/volume] in Serum or Plasma 2023-11-04 17:42:37 131 U/L F 120.0-246.0 Bicarbonate [Moles/volume] in Serum or Plasma 2023-11-04 17:42:37 22 mEq/L F 20.0-31.0 Albumin [Mass/volume] in Serum or Plasma by Bromocresol green (BCG) dye binding method 2023-11-04 17:42:37 3.8 g/dL F 3.4-4.8 Protein [Mass/volume] in Serum or Plasma 2023-11-04 17:42:37 6.8 g/dL F 5.7-8.2 Potassium [Moles/volume] in Serum or Plasma 2023-10-01 03:58:45 3.7 mEq/L F 3.5-5.5 GLOBULIN 2023-09-30 22:10:05 3.2 g/dL F 0.9-5.0 A/G RATIO 2023-09-30 22:10:05 1.2 Calc F 1.0-2.5 Lactate dehydrogenase [Enzymatic activity/volume] in Serum or Plasma 2023-09-30 22:09:48 142 U/L F 120.0-246.0 Bicarbonate [Moles/volume] in Serum or Plasma 2023-09-30 22:09:48 24 mEq/L F 20.0-31.0 Albumin [Mass/volume] in Serum or Plasma by Bromocresol green (BCG) dye binding method 2023-09-30 22:09:48 3.9 g/dL F 3.4-4.8 Protein [Mass/volume] in Serum or Plasma 2023-09-30 22:09:48 7.1 g/dL F 5.7-8.2 Potassium [Moles/volume] in Serum or Plasma 2023-09-03 05:05:09 3.4 mEq/L F 3.5-5.5 A/G RATIO 2023-09-02 20:00:25 1.3 Calc F 1.0-2.5 GLOBULIN 2023-09-02 20:00:25 3.4 g/dL F 0.9-5.0 Lactate dehydrogenase [Enzymatic activity/volume] in Serum or Plasma 2023-09-02 19:59:25 197 U/L F 120.0-246.0 Bicarbonate [Moles/volume] in Serum or Plasma 2023-09-02 19:59:25 23 mEq/L F 20.0-31.0 Albumin [Mass/volume] in Serum or Plasma by Bromocresol green (BCG) dye binding method 2023-09-02 19:59:25 4.3 g/dL F 3.4-4.8 Protein [Mass/volume] in Serum or Plasma 2023-09-02 19:59:25 7.7 g/dL F 5.7-8.2 Potassium [Moles/volume] in Serum or Plasma 2023-08-06 04:52:47 3.9 mEq/L F 3.5-5.5 Potassium [Moles/volume] in Serum or Plasma 2023-08-06 04:52:47 3.9 mEq/L F 3.5-5.5 Folate [Mass/volume] in Serum or Plasma 2023-08-05 21:16:29 5.9 ng/mL F 5.5-16.0 Folate [Mass/volume] in Serum or Plasma 2023-08-05 21:16:29 5.9 ng/mL F 5.5-16.0 GLOBULIN 2023-08-05 19:19:44 3.4 g/dL F 0.9-5.0 A/G RATIO 2023-08-05 19:19:44 1.1 Calc F 1.0-2.5 GLOBULIN 2023-08-05 19:19:44 3.4 g/dL F 0.9-5.0 A/G RATIO 2023-08-05 19:19:44 1.1 Calc F 1.0-2.5 Lactate dehydrogenase [Enzymatic activity/volume] in Serum or Plasma 2023-08-05 19:19:33 139 U/L F 120.0-246.0 Bicarbonate [Moles/volume] in Serum or Plasma 2023-08-05 19:19:33 23 mEq/L F 20.0-31.0 Albumin [Mass/volume] in Serum or Plasma by Bromocresol green (BCG) dye binding method 2023-08-05 19:19:33 3.7 g/dL F 3.4-4.8 Protein [Mass/volume] in Serum or Plasma 2023-08-05 19:19:33 7.1 g/dL F 5.7-8.2 Lactate dehydrogenase [Enzymatic activity/volume] in Serum or Plasma 2023-08-05 19:19:33 139 U/L F 120.0-246.0 Bicarbonate [Moles/volume] in Serum or Plasma 2023-08-05 19:19:33 23 mEq/L F 20.0-31.0 Albumin [Mass/volume] in Serum or Plasma by Bromocresol green (BCG) dye binding method 2023-08-05 19:19:33 3.7 g/dL F 3.4-4.8 Protein [Mass/volume] in Serum or Plasma 2023-08-05 19:19:33 7.1 g/dL F 5.7-8.2 Potassium [Moles/volume] in Serum or Plasma 2023-08-01 05:55:45 3.6 mEq/L F 3.5-5.5 Potassium [Moles/volume] in Serum or Plasma 2023-08-01 05:55:45 3.6 mEq/L F 3.5-5.5 Cobalamin (Vitamin B12) [Mass/volume] in Serum or Plasma 2023-08-01 04:33:20 433 pg/mL F 211.0-911.0 Cobalamin (Vitamin B12) [Mass/volume] in Serum or Plasma 2023-08-01 04:33:20 433 pg/mL F 211.0-911.0 A/G RATIO 2023-07-31 23:44:57 1 Calc F 1.0-2.5 GLOBULIN 2023-07-31 23:44:57 3.6 g/dL F 0.9-5.0 A/G RATIO 2023-07-31 23:44:57 1 Calc F 1.0-2.5 GLOBULIN 2023-07-31 23:44:57 3.6 g/dL F 0.9-5.0 Lactate dehydrogenase [Enzymatic activity/volume] in Serum or Plasma 2023-07-31 23:43:59 110 U/L F 120.0-246.0 Bicarbonate [Moles/volume] in Serum or Plasma 2023-07-31 23:43:59 27 mEq/L F 20.0-31.0 Albumin [Mass/volume] in Serum or Plasma by Bromocresol green (BCG) dye binding method 2023-07-31 23:43:59 3.6 g/dL F 3.4-4.8 Protein [Mass/volume] in Serum or Plasma 2023-07-31 23:43:59 7.2 g/dL F 5.7-8.2 Glucose [Mass/volume] in Serum or Plasma 2023-07-31 23:43:59 184 mg/dL F 70.0-99.0 Lactate dehydrogenase [Enzymatic activity/volume] in Serum or Plasma 2023-07-31 23:43:59 110 U/L F 120.0-246.0 Bicarbonate [Moles/volume] in Serum or Plasma 2023-07-31 23:43:59 27 mEq/L F 20.0-31.0 Albumin [Mass/volume] in Serum or Plasma by Bromocresol green (BCG) dye binding method 2023-07-31 23:43:59 3.6 g/dL F 3.4-4.8 Protein [Mass/volume] in Serum or Plasma 2023-07-31 23:43:59 7.2 g/dL F 5.7-8.2 Glucose [Mass/volume] in Serum or Plasma 2023-07-31 23:43:59 184 mg/dL F 70.0-99.0 A/G RATIO 2023-07-10 21:17:40 F Recollect - Unsp un specimen GLOBULIN 2023-07-10 21:17:40 F Recollect - Unsp un specimen Potassium [Moles/volume] in Serum or Plasma 2023-07-10 21:16:40 F Recollect - Unsp un specimen Protein [...] Plasma 2023-05-30 04:14:20 4.3 mEq/L F 3.5-5.5 Cobalamin (Vitamin B12) [Mass/volume] in Serum or Plasma 2023-05-29 17:25:54 503 pg/mL F 211.0-911.0 Folate [Mass/volume] in Serum or Plasma 2023-05-29 17:25:54 7.8 ng/mL F 5.5-16.0 GLOBULIN 2023-05-29 16:12:30 3.5 g/dL F 0.9-5.0 A/G RATIO 2023-05-29 16:12:30 1.1 Calc F 1.0-2.5 Lactate dehydrogenase [Enzymatic activity/volume] in Serum or Plasma 2023-05-29 16:11:40 156 U/L F 120.0-246.0 Bicarbonate [Moles/volume] in Serum or Plasma 2023-05-29 16:11:40 23 mEq/L F 20.0-31.0 Albumin [Mass/volume] in Serum or Plasma by Bromocresol green (BCG) dye binding method 2023-05-29 16:11:40 3.9 g/dL F 3.4-4.8 Protein [Mass/volume] in Serum or Plasma 2023-05-29 16:11:40 7.4 g/dL F 5.7-8.2 Glucose [Mass/volume] in Serum or Plasma 2023-05-29 16:11:40 269 mg/dL F 70.0-99.0 Cobalamin (Vitamin B12) [Mass/volume] in Serum or Plasma 2023-04-25 02:33:34 544 pg/mL F 211.0-911.0 Cobalamin (Vitamin B12) [Mass/volume] in Serum or Plasma 2023-04-25 02:33:34 544 pg/mL F 211.0-911.0 GLOBULIN 2023-04-24 23:10:13 3.6 g/dL F 0.9-5.0 A/G RATIO 2023-04-24 23:10:13 1.2 Calc F 1.0-2.5 GLOBULIN 2023-04-24 23:10:13 3.6 g/dL F 0.9-5.0 A/G RATIO 2023-04-24 23:10:13 1.2 Calc F 1.0-2.5 Lactate dehydrogenase [Enzymatic activity/volume] in Serum or Plasma 2023-04-24 23:09:39 180 U/L F 120.0-246.0 Albumin [Mass/volume] in Serum or Plasma by Bromocresol green (BCG) dye binding method 2023-04-24 23:09:39 4.2 g/dL F 3.4-4.8 Potassium [Moles/volume] in Serum or Plasma 2023-04-24 23:09:39 4.6 mEq/L F 3.5-5.5 Bicarbonate [Moles/volume] in Serum or Plasma 2023-04-24 23:09:39 23 mEq/L F 20.0-31.0 Protein [Mass/volume] in Serum or Plasma 2023-04-24 23:09:39 7.8 g/dL F 5.7-8.2 Glucose [Mass/volume] in Serum or Plasma 2023-04-24 23:09:39 222 mg/dL F 70.0-99.0 Lactate dehydrogenase [Enzymatic activity/volume] in Serum or Plasma 2023-04-24 23:09:39 180 U/L F 120.0-246.0 Bicarbonate [Moles/volume] in Serum or Plasma 2023-04-24 23:09:39 23 mEq/L F 20.0-31.0 Albumin [Mass/volume] in Serum or Plasma by Bromocresol green (BCG) dye binding method 2023-04-24 23:09:39 4.2 g/dL F 3.4-4.8 Potassium [Moles/volume] in Serum or Plasma 2023-04-24 23:09:39 4.6 mEq/L F 3.5-5.5 Protein [Mass/volume] in Serum or Plasma 2023-04-24 23:09:39 7.8 g/dL F 5.7-8.2 Glucose [Mass/volume] in Serum or Plasma 2023-04-24 23:09:39 222 mg/dL F 70.0-99.0 Cobalamin (Vitamin B12) [Mass/volume] in Serum or Plasma 2023-03-28 04:49:22 458 pg/mL F 211.0-911.0 Cobalamin (Vitamin B12) [Mass/volume] in Serum or Plasma 2023-03-28 04:49:22 458 pg/mL F 211.0-911.0 Cobalamin (Vitamin B12) [Mass/volume] in Serum or Plasma 2023-03-28 04:49:22 458 pg/mL F 211.0-911.0 A/G RATIO 2023-03-27 16:18:18 1.1 Calc F 1.0-2.5 GLOBULIN 2023-03-27 16:18:18 3.4 g/dL F 0.9-5.0 GLOBULIN 2023-03-27 16:18:18 3.4 g/dL F 0.9-5.0 A/G RATIO 2023-03-27 16:18:18 1.1 Calc F 1.0-2.5 A/G RATIO 2023-03-27 16:18:18 1.1 Calc F 1.0-2.5 GLOBULIN 2023-03-27 16:18:18 3.4 g/dL F 0.9-5.0 Lactate dehydrogenase [Enzymatic activity/volume] in Serum or Plasma 2023-03-27 16:17:35 182 U/L F 120.0-246.0 Bicarbonate [Moles/volume] in Serum or Plasma 2023-03-27 16:17:35 25 mEq/L F 20.0-31.0 Potassium [Moles/volume] in Serum or Plasma 2023-03-27 16:17:35 4.2 mEq/L F 3.5-5.5 Albumin [Mass/volume] in Serum or Plasma by Bromocresol green (BCG) dye binding method 2023-03-27 16:17:35 3.9 g/dL F 3.4-4.8 Protein [Mass/volume] in Serum or Plasma 2023-03-27 16:17:35 7.3 g/dL F 5.7-8.2 Glucose [Mass/volume] in Serum or Plasma 2023-03-27 16:17:35 164 mg/dL F 70.0-99.0 Lactate dehydrogenase [Enzymatic activity/volume] in Serum or Plasma 2023-03-27 16:17:35 182 U/L F 120.0-246.0 Bicarbonate [Moles/volume] in Serum or Plasma 2023-03-27 16:17:35 25 mEq/L F 20.0-31.0 Albumin [Mass/volume] in Serum or Plasma by Bromocresol green (BCG) dye binding method 2023-03-27 16:17:35 3.9 g/dL F 3.4-4.8 Potassium [Moles/volume] in Serum or Plasma 2023-03-27 16:17:35 4.2 mEq/L F 3.5-5.5 Protein [Mass/volume] in Serum or Plasma 2023-03-27 16:17:35 7.3 g/dL F 5.7-8.2 Glucose [Mass/volume] in Serum or Plasma 2023-03-27 16:17:35 164 mg/dL F 70.0-99.0 Albumin [Mass/volume] in Serum or Plasma by [...] Plasma 2023-02-28 00:13:49 486 pg/mL F 211.0-911.0 A/G RATIO 2023-02-27 17:53:58 1.1 Calc F 1.0-2.5 GLOBULIN 2023-02-27 17:53:58 3.5 g/dL F 0.9-5.0 GLOBULIN 2023-02-27 17:53:58 3.5 g/dL F 0.9-5.0 A/G RATIO 2023-02-27 17:53:58 1.1 Calc F 1.0-2.5 Lactate dehydrogenase [Enzymatic activity/volume] in Serum or Plasma 2023-02-27 17:53:34 255 U/L F 120.0-246.0 Bicarbonate [Moles/volume] in Serum or Plasma 2023-02-27 17:53:34 25 mEq/L F 20.0-31.0 Albumin [Mass/volume] in Serum or Plasma by Bromocresol green (BCG) dye binding method 2023-02-27 17:53:34 3.8 g/dL F 3.4-4.8 Potassium [Moles/volume] in Serum or Plasma 2023-02-27 17:53:34 4.5 mEq/L F 3.5-5.5 Protein [Mass/volume] in Serum or Plasma 2023-02-27 17:53:34 7.3 g/dL F 5.7-8.2 Glucose [Mass/volume] in Serum or Plasma 2023-02-27 17:53:34 275 mg/dL F 70.0-99.0 Lactate dehydrogenase [Enzymatic activity/volume] in Serum or Plasma 2023-02-27 17:53:34 255 U/L F 120.0-246.0 Bicarbonate [Moles/volume] in Serum or Plasma 2023-02-27 17:53:34 25 mEq/L F 20.0-31.0 Protein [Mass/volume] in Serum or Plasma 2023-02-27 17:53:34 7.3 g/dL F 5.7-8.2 Glucose [Mass/volume] in Serum or Plasma 2023-02-27 17:53:34 275 mg/dL F 70.0-99.0 Potassium [Moles/volume] in Serum or Plasma 2023-02-27 17:53:34 4.5 mEq/L F 3.5-5.5 Albumin [Mass/volume] in Serum or Plasma by Bromocresol green (BCG) dye binding method 2023-02-27 17:53:34 3.8 g/dL F 3.4-4.8 GLOBULIN 2023-01-30 22:43:33 2.8 g/dL F 0.9-5.0 A/G RATIO 2023-01-30 22:43:33 1.4 Calc F 1.0-2.5 GLOBULIN 2023-01-30 22:43:33 2.8 g/dL F 0.9-5.0 A/G RATIO 2023-01-30 22:43:33 1.4 Calc F 1.0-2.5 Lactate dehydrogenase [Enzymatic activity/volume] in Serum or Plasma 2023-01-30 22:43:25 219 U/L F 120.0-246.0 Bicarbonate [Moles/volume] in Serum or Plasma 2023-01-30 22:43:25 26 mEq/L F 20.0-31.0 Potassium [Moles/volume] in Serum or Plasma 2023-01-30 22:43:25 4.1 mEq/L F 3.5-5.5 Albumin [Mass/volume] in Serum or Plasma by Bromocresol green (BCG) dye binding method 2023-01-30 22:43:25 3.8 g/dL F 3.4-4.8 Glucose [Mass/volume] in Serum or Plasma 2023-01-30 22:43:25 250 mg/dL F 70.0-99.0 Protein [Mass/volume] in Serum or Plasma 2023-01-30 22:43:25 6.6 g/dL F 5.7-8.2 Lactate dehydrogenase [Enzymatic activity/volume] in Serum or Plasma 2023-01-30 22:43:25 219 U/L F 120.0-246.0 Albumin [Mass/volume] in Serum or Plasma by Bromocresol green (BCG) dye binding method 2023-01-30 22:43:25 3.8 g/dL F 3.4-4.8 Glucose [Mass/volume] in Serum or Plasma 2023-01-30 22:43:25 250 mg/dL F 70.0-99.0 Bicarbonate [Moles/volume] in Serum or Plasma 2023-01-30 22:43:25 26 mEq/L F 20.0-31.0 Potassium [Moles/volume] in Serum or Plasma 2023-01-30 22:43:25 4.1 mEq/L F 3.5-5.5 Protein [Mass/volume] in Serum or Plasma 2023-01-30 22:43:25 6.6 g/dL F 5.7-8.2 Cobalamin (Vitamin B12) [Mass/volume] in Serum or Plasma 2023-01-30 19:46:35 617 pg/mL F 211.0-911.0 Cobalamin (Vitamin B12) [Mass/volume] in Serum or Plasma 2023-01-30 19:46:35 617 pg/mL F 211.0-911.0 VLDL-CHOL(CALC) 2022-12-20 13:55:37 15 mg/dL F 0.0-29.0 LDL-CHOLESTEROL 2022-12-20 13:55:37 44 mg/dL F 0.0-99.0 GLOBULIN 2022-12-20 13:55:37 3.1 g/dL F 0.9-5.0 A/G RATIO 2022-12-20 13:55:37 1.2 Calc F 1.0-2.5 CHOL/HDL RATIO 2022-12-20 13:55:37 3.1 Calc F 3.3-5.0 Protein [Mass/volume] in Serum or Plasma 2022-12-20 13:55:13 74 mg/dL F 0.0-149.0 Cholesterol [Mass/volume] in Serum or Plasma 2022-12-20 13:55:13 87 mg/dL F 0.0-199.0 Lactate dehydrogenase [Enzymatic activity/volume] in Serum or Plasma 2022-12-20 13:55:13 189 U/L F 120.0-246.0 Bicarbonate [Moles/volume] in Serum or Plasma 2022-12-20 13:55:13 27 mEq/L F 20.0-31.0 Albumin [Mass/volume] in Serum or Plasma by Bromocresol green (BCG) dye binding method 2022-12-20 13:55:13 3.8 g/dL F 3.4-4.8 Potassium [Moles/volume] in Serum or Plasma 2022-12-20 13:55:13 4.6 mEq/L F 3.5-5.5 Cholesterol in HDL [Mass/volume] in Serum or Plasma 2022-12-20 13:55:13 28 mg/dL F 40.0-60.0 Protein [Mass/volume] in Serum or Plasma 2022-12-20 13:55:13 6.9 g/dL F 5.7-8.2 Glucose [Mass/volume] in Serum or Plasma 2022-12-20 13:55:13 255 mg/dL F 70.0-99.0 Cobalamin (Vitamin B12) [Mass/volume] in Serum or Plasma 2022-12-20 12:42:11 757 pg/mL F 211.0-911.0 Folate [Mass/volume] in Serum or Plasma 2022-12-20 12:42:11 15.2 ng/mL F 5.5-16.0 GLOBULIN 2022-08-06 15:24:56 2.8 g/dL K 0.9-5.0 A/G RATIO 2022-08-06 15:24:56 1.3 Calc K 1.0-2.5 GLOBULIN 2022-08-06 15:24:56 2.8 g/dL K 0.9-5.0 A/G RATIO 2022-08-06 15:24:56 1.3 Calc K 1.0-2.5 Lactate dehydrogenase [Enzymatic activity/volume] in Serum or Plasma 2022-08-06 15:00:59 172 U/L F 120.0-246.0 Bicarbonate [Moles/volume] in Serum or Plasma 2022-08-06 15:00:59 24 mEq/L F 20.0-31.0 Potassium [Moles/volume] in Serum or Plasma 2022-08-06 15:00:59 4 mEq/L F 3.5-5.5 Albumin [Mass/volume] in Serum or Plasma by Bromocresol green (BCG) dye binding method 2022-08-06 15:00:59 3.7 g/dL F 3.4-4.8 Protein [Mass/volume] in Serum or Plasma 2022-08-06 15:00:59 6.5 g/dL F 5.7-8.2 Bicarbonate [Moles/volume] in Serum or Plasma 2022-08-06 15:00:59 24 mEq/L F 20.0-31.0 Protein [Mass/volume] in Serum or Plasma 2022-08-06 15:00:59 6.5 g/dL F 5.7-8.2 Lactate dehydrogenase [Enzymatic activity/volume] in Serum or Plasma 2022-08-06 15:00:59 172 U/L F 120.0-246.0 Albumin [Mass/volume] in Serum or Plasma by Bromocresol green (BCG) dye binding method 2022-08-06 15:00:59 3.7 g/dL F 3.4-4.8 Potassium [Moles/volume] in Serum or Plasma 2022-08-06 15:00:59 4 mEq/L F 3.5-5.5 GLOBULIN 2022-06-28 00:24:38 3 g/dL F 0.9-5.0 A/G RATIO 2022-06-28 00:24:38 1.3 Calc F 1.0-2.5 A/G RATIO 2022-06-28 00:24:38 1.3 Calc F 1.0-2.5 GLOBULIN 2022-06-28 00:24:38 3 g/dL F 0.9-5.0 A/G RATIO 2022-06-28 00:24:38 1.3 Calc F 1.0-2.5 GLOBULIN 2022-06-28 00:24:38 3 g/dL F 0.9-5.0 Lactate dehydrogenase [Enzymatic activity/volume] in Serum or Plasma 2022-06-28 00:23:52 203 U/L F 120.0-246.0 Bicarbonate [Moles/volume] in Serum or Plasma 2022-06-28 00:23:52 26 mEq/L F 20.0-31.0 Albumin [Mass/volume] in Serum or Plasma by Bromocresol green (BCG) dye binding method 2022-06-28 00:23:52 4 g/dL F 3.4-4.8 Potassium [Moles/volume] in Serum or Plasma 2022-06-28 00:23:52 3.5 mEq/L F 3.5-5.5 Protein [Mass/volume] in Serum or Plasma 2022-06-28 00:23:52 7 g/dL F 5.7-8.2 Bicarbonate [Moles/volume] in Serum or Plasma 2022-06-28 00:23:52 26 mEq/L F 20.0-31.0 Albumin [Mass/volume] in Serum or Plasma by Bromocresol green (BCG) dye binding method 2022-06-28 00:23:52 4 g/dL F 3.4-4.8 Lactate dehydrogenase [Enzymatic activity/volume] in Serum or Plasma 2022-06-28 00:23:52 203 U/L F 120.0-246.0 Potassium [Moles/volume] in Serum or Plasma 2022-06-28 00:23:52 3.5 mEq/L F 3.5-5.5 Protein [Mass/volume] in Serum or Plasma 2022-06-28 00:23:52 7 g/dL F 5.7-8.2 Albumin [Mass/volume] in Serum or Plasma by Bromocresol green (BCG) dye binding method 2022-06-28 00:23:52 4 g/dL F 3.4-4.8 Bicarbonate [Moles/volume] in Serum or Plasma 2022-06-28 00:23:52 26 mEq/L F 20.0-31.0 Lactate dehydrogenase [Enzymatic activity/volume] in Serum or Plasma 2022-06-28 00:23:52 203 U/L F 120.0-246.0 Potassium [Moles/volume] in Serum or Plasma 2022-06-28 00:23:52 3.5 mEq/L F 3.5-5.5 Protein [Mass/volume] in Serum or Plasma 2022-06-28 00:23:52 7 g/dL F 5.7-8.2 A/G RATIO 2022-05-23 20:52:25 1.4 Calc F 1.0-2.5 GLOBULIN 2022-05-23 20:52:25 3 g/dL F 0.9-5.0 GLOBULIN 2022-05-23 20:52:25 3 g/dL F 0.9-5.0 A/G RATIO 2022-05-23 20:52:25 1.4 Calc F 1.0-2.5 Lactate dehydrogenase [Enzymatic activity/volume] in Serum or Plasma 2022-05-23 20:51:42 155 U/L F 120.0-246.0 Bicarbonate [Moles/volume] in Serum or Plasma 2022-05-23 20:51:42 22 mEq/L F 20.0-31.0 Albumin [Mass/volume] in Serum or Plasma by [...] Plasma 2022-05-23 20:51:42 155 U/L F 120.0-246.0 Albumin [Mass/volume] in Serum or Plasma by Bromocresol green (BCG) dye binding method 2022-05-23 20:51:42 4.1 g/dL F 3.4-4.8 Potassium [Moles/volume] in Serum or Plasma 2022-05-23 20:51:42 3.4 mEq/L F 3.5-5.5 Protein [Mass/volume] in Serum or Plasma 2022-05-23 20:51:42 7.1 g/dL F 5.7-8.2 Encounters No encounter information to report Immunizations Ordered Immunization Name Filled Immunization Name Date Status Comments Refusal Reason TST-PPD intradermal 2024-08-10 14:09:06 TST-PPD intradermal 2023-08-11 18:32:37 TST-PPD intradermal 2023-07-25 21:31:11 TST-PPD intradermal 2022-06-26 19:24:31 TST-PPD intradermal 2022-05-22 13:56:33 Pneumococcal Vaccination 2019-05-15 06:00:00 Plan of Treatment Planned Activity Provider Planned Date Details Commen ts Diagnostic Test Pending Christen Ng 2025-01-30 05:00:00 Calcium [Mass/volume] in Serum or Plasma [code = 78322-8] Diagnostic Test Pending Christen Ng 2024-12-13 05:00:00 Ferritin [Mass/volume] in Serum or Plasma [code = 2276-4] Diagnostic Test Pending Christen Ng 2024-10-14 06:14:03 Hemoglobin [Mass/volume] in Blood [code = 718-7] Diagnostic Test Pending Christen Ng 2023-08-04 06:00:00 Albumin [Mass/volume] in Serum or Plasma by Bromocresol green (BCG) dye binding method [code = 37063-8] Diagnostic Test Pending Christen Ng 2024-10-14 06:13:52 [email or web address] [Mass/volume] in Serum or Plasma [code = 2731-8] Diagnostic Test Pending Christen Ng 2023-08-04 06:00:00 Sodium [Moles/volume] in Serum or Plasma [code = 2951-2] Diagnostic Test Pending Christen Ng 2023-08-04 06:00:00 Aluminum [Mass/volume] in Serum or Plasma [code = 5574-9] Diagnostic Test Pending Christen Ng 2023-08-04 06:00:00 Folate [Mass/volume] in Serum or Plasma [code = 2284-8] Diagnostic Test Pending Scottg Ng 2023-08-04 06:00:00 Creatinine [Mass/volume] in Serum or Plasma [code = 2160-0] Diagnostic Test Pending Christen Ng 2023-08-04 06:00:00 Potassium [Moles/volume] in Serum or Plasma [code = 2823-3] Diagnostic Test Pending Rashadchadnerissa Ng 2024-10-14 06:13:48 Alanine aminotransferase [Enzymatic activity/volume] in Serum or Plasma [code = 1742-6] Diagnostic Test Pending Nicolásjamilchadnerissa [facility] 2025-01-27 17:45:38 In-Center Hemodialysis Treatment [code = LAU409] Diagnostic Test Pending Rolan Simon [facility] 2024-08-29 13:14:21 In-Center Hemodialysis Treatment [code = RFT404] Diet Order roberto [facility] August 21, 2023 Diet Calorie 30 kcal/kg Fluid Value 1500 mL/d Phosphorus Value 1100 mg/d Potassium Value 3000 mg/d Protein Value 1.2 gm/kg Sodium Value 3000 mg/d Calculated Weight 93 kg
--- OUTSIDE RECORDS SUMMARY | 2025-02-27 18:59 | XMS_ITS | Clinical Summary ---
Author Organization [facility] Address [address] [place] [address] Care Team Providers Care Professor Of Forestry Name Role Phone Mery Maxwell MD Primary Care Provider [phone] Rohit Butcher MD Unavailable [phone] Allergies Active Allergy Reactions Criticality Noted Date [...] MINI PEN NEEDLES 31G X 5 MM [facility] 4 Active BD VEO INSULIN SYRINGE U/F 31G X 15/64 0.5 ML [facility] 4 Active TRUE METRIX BLOOD GLUCOSE TEST [...] Active Continuous Glucose Transmitter (DEXCOM G6 TRANSMITTER) [facility] 4 Active FIASP PENFILL 100 UNIT/ML Solution [...] Encounters Date Type Department Care Team Description 01/24/2025 Telephone [facility] ie [address] [place] [address] Rohit Butcher MD Surgical Clearance 01/19/2025 Telephone [facility] ield [address] [place] [address] Rohit Butcher MD Blood Pressure (11/14/24 - 01/13/25 BP Log ) 01/18/2025 Results Follow-Up [facility] [address] [place] [address] Mirela Mosley MA LIPID PANEL 01/17/2025 11:44 AM CDT - 01/17/2025 11:59 PM CDT Hospital Encounter [facility] [address] [place] [address] Rohit Butcher MD Discharge Disposition: Home or Self Care (Routine Discharge) 01/17/2025 10:45 AM CDT Office Visit [facility] [address] [place] [address] Rohit Butcher MD Hypertension 01/17/2025 Travel 2024 Telephone [facility] [address] [place] [address] Rohit Butcher MD Results 12/06/2024 Telephone [facility] [address] [place] [address] Rohit Butcher MD Blood Pressure 12/01/2024 Telephone [facility] ie [address] [place] [address] Rohit Butcher MD Other 12/01/2024 Travel from Last 3 Months Family History [...] drink = 0.6 oz pur e alcohol) [facility] Utilities Answer Date Recorded In the past 12 months has e [employer], gas, oil, or water [employer] threatened to shut off services in your [...] money to buy more. Never true 03/28/20 24 Within the past 12 months, t [...] any time in the past 12 [facility], were you homeless or living in a detention (including now)? No 03/28/2024 Sex and Gender Information Value Date Recorded Sex Assigned at Male 07/22/2024 12:34 PM LAUNDRY AIDE Legal Sex Male 6:24 PM CDT Gender Identity Not on file Sexual Orientation Not on file Last Filed Vital Signs Vital Sign Reading Time Taken Comments Blood Pressure 134/82 01/17/2025 11:03 AM CDT Pulse 89 01/17/2025 11:03 AM CDT Temperature 37.1 C (98.7 F) 05/28/2024 12:32 AM LAUNDRY AIDE Respiratory Rate 18 01/17/2025 11:03 AM CDT Oxygen Saturation 97% 01/17/2025 11:03 AM CDT Inhaled Oxygen Concentration - - Weight 127 kg (280 lb) 01/17/2025 11:03 AM CDT Height 188 cm (6' 2) 01/17/2025 11:03 AM CDT Body Mass Index 35.95 01/17/2025 11:03 AM CDT Plan of Treatment Upcoming Encounters Date Type Department Care Team ([facility] Contact Info) Description 05/04/2025 1:30 PM LAUNDRY AIDE Office Visit [facility] eld [address] [place] [address] Ariana Walsh, DAY TRADER, BEHAVIOR INTERVENTIONIST-C [address] [facility] [address] [place] [address] Health Maintenance Due Date Last Done Comments Annual Physical 12/13/1975 Diabetes: Retinopathy Eye Exam 1990 Hepatitis B Vaccines (2 of 3 - 19+ 3-dose series) 12/01/2019 11/03/2019 Zoster Vaccines (1 of 2) 2022 Hemoglobin A1C 03/04/2024 09/02/2023, 06/16, 07/02/2023, Additional history exists Pneumococcal Vaccine: 50+ Years (3 of 3 - PCV20 or PCV21) 03/24/2024 03/24/2019, 05/04/2018 COVID-19 Vaccine ( - season) 2025 Colorectal Cancer Screening FIT/FOBT (1 Year) 03/28/2025 [...] and discharge planning Lifestyle No 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 Rocha, lace sewer Procedure Name Priority Date/Time Associated Diagnosis Comments LIPID PANEL Routine 01/17/2025 11:52 AM CDT Essential (primary) hypertension AMBULATORY BP MONITOR Routine 12/06/2024 4:37 PM CDT End stage renal disease (N18.6) OCCULT BLOOD, FECES STAT 03/28/2024 1 2:10 PM CDT HEMOGLOBIN, GLYCOSYLATED Routine 09/02/2023 2:49 AM CDT from Last 3 Months or Most Recently Relevant to Health Maintenance Results * (ABNORMAL) LIPID PANEL (01/17/2025 11:52 AM CDT) CHOLESTEROL 111 MG/DL 01/17/2025 6:44 PM CDT [facility] Comment:DESIRABLE: <200 TRIGLYCERIDES 122 MG/DL 01/17/2025 6:44 PM CDT [facility] Comment:<150 NORMAL HDL 37(L) >39 MG/DL 01/17/2025 6:44 PM CDT [facility] LDL-C 50 MG/DL 01/17/2025 6:44 PM CDT [facility] Comment:<100 OPTIMAL VLDL CALCULATION 24 MG/DL 01/18/20 6:44 PM CDT [facility] Comment:REFERENCE RANGE NOT ESTABLISHED CHOL/HDL RATIO 3.0 01/17/2025 6:44 PM CDT [facility] Comment:REFERENCE RANGE NOT ESTABLISHED LDL/HDL 1.3 01/17/2025 6:44 PM CDT [facility] Comment:REFERENCE RANGE NOT ESTABLISHED NON HDL CHOLESTEROL 74 MG/DL 01/17/2025 6:44 PM CDT [facility] Comment:REFERENCE RANGE NOT ESTABLISHED 01/17/2025 11:5 2 AM CDT Rohit Butcher MD LABORATORY Final Result [facility] [address] [place] [address], [id number] * Ambulatory BP Monitor (12/06/2024 4:37 PM [...] Rohit Butcher MD HOLTER Final Result * OCCULT BLOOD, FECES (03/28/2024 12:10 PM CDT) OCCULT BLOOD FECAL NEGATIVE NEGATIVE 03/28/2024 12:19 PM CDT [facility] STOOL SPECIMEN / Unknown 03/28/2024 12:10 PM CDT Kelly Londono MD BODY FLUIDS AND STOOLS ORDER KRIS Final Result [facility] [place] [address], * (ABNORMAL) HEMOGLOBIN, GLYCOSYLATED (09/02/2023 2:49 AM CDT) HGB A1C 7.4(H) <5.7 % 09/02/2023 3:34 PM CDT [facility] ESTIMATED AVG GLUCOSE 166(H) 74 - 114 MG/DL 09/02/2023 3:34 PM CDT [facility] 09/02/2023 2:49 AM CDT Troy Berger MD LABORATORY Final Res ult [facility] [address] [place] [address], [id number] from Last 3 Months or Most Recently [...] 10:23 PM 09/04/2023 8:48 PM Care Teams Professor Of Forestry Relationship Specialty Start Date End Date Mery Maxwell MD [address] [place] [phone] PCP - General FAMILY PRACTICE 08/19/23 Rohit Butcher MD [address] [address] Physician INTERVENTIONAL CARDIOLOGY 11/08/24
[2025-02-27 20:42] LABS: Troponin I 0.082 ng/mL (0.000-0.034)
--- OUTSIDE RECORDS SUMMARY | 2025-03-16 19:00 | XMS_ITS | Clinical Summary ---
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 TS Active 06-15 00:00: 00 JAVA PROGRAMMING PROFESSOR (CURRENT) USE OF INSULIN Active 06-15 00:00: [...] 100 mg tablet 09-24 00:00: 00 Yes [id number] HYPERPHOSPH ATEMIA 1 tablet TWICE DAILY 1 tablet TWICE DAILY (route: oral) Med Classific ation: Gout and Hyperuric emia Therapy amiodarone 200 mg tablet 09-24 00:00: 00 Yes [id number] AFIB 1 tablet ONCE DAILY 1 tablet ONCE DAILY (route: oral) Med Classific ation: Cardiovas cular Therapy Agents atorvastati n 20 mg tablet 09-24 00:00: 00 Yes [id number] HIGH CHOLESTEROL 1 tablet ONCE DAILY 1 tablet ONCE DAILY (route: oral) Med Classific ation: Cardiovas cular Therapy Agents calcitriol 0.25 mcg capsule 09-24 00:00: 00 Yes [id number] SUPPLEMENT 1 capsule DIRECTED 1 capsule DIRECTED (route: oral) Med Classific ation: Electroly te Balance-N utritiona l Products carvedilol 12.5 mg tablet 09-24 00:00: 00 12-08 23:59 :00 No [id number] HYPERTENSIO N 1 tablet TWICE DAILY 1 tablet TWICE DAILY (route: oral) Med Classific ation: Cardiovas cular Therapy Agents Eliquis 5 mg tablet 09-24 00:00: 00 Yes [id number] AFIB 1 tablet TWICE DAILY 1 tablet TWICE DAILY (route: oral) Med Classific ation: Hematolog ical Agents fluticasone propionate 50 mcg/actuati on blister powder for inhalation 09-24 00:00: 00 Yes [id number] ALLERGIES 1 inhalat ion TWICE DAILY 1 inhalation TWICE DAILY (route: inhalation ) Med Classific ation: Respirato ry Therapy Agents gabapentin 100 mg capsule 09-24 00:00: 00 11-17 23:59 :00 No [id number] NERVE PAIN 1 capsule TWICE DAILY 1 capsule TWICE DAILY (route: oral) Med Classific ation: Central Nervous System Agents insulin lispro (U-100) 100 unit/mL subcutaneou s pen 09-24 00:00: 00 04-11 23:59 :00 No [id number] TYPE TWO DIABETES 8 unit 3 TIMES DAILY 8 unit 3 TIMES DAILY (route: subcutaneo us) Alternate Route: SUBCUTANE OUS. Med Classific ation: Endocrine lactulose 10 gram/15 mL (15 mL) oral solution 09-24 00:00: 00 Yes [id number] CONSTIPATIO N 30 mL TWICE DAILY 30 mL TWICE DAILY (route: oral) Med Classific ation: Gastroint estinal Therapy Agents Lantus Solostar U-100 Insulin 100 unit/mL (3 mL) subcutaneou s pen 09-24 00:00: 00 03-02 23:59 :00 No [id number] TYPE 2 DIABETES 10 unit AT BEDTIME 10 unit AT BEDTIME (route: subcutaneo us) Alternate Route: SUBCUTANE OUS. Med Classific ation: Endocrine midodrine 10 mg tablet 09-24 00:00: 00 Yes [id number] REGULATE BLOOD PRESSURE 1 tablet 3 TIMES DAILY 1 tablet 3 TIMES DAILY (route: oral) Med Classific ation: Cardiovas cular Therapy Agents nystatin 100,000 unit/gram topical powder 09-24 00:00: 00 Yes [id number] MOISTURE TO SKIN FOLDS OF GROIN 1 gram TWICE DAILY 1 gram TWICE DAILY (route: topical) Med Classific ation: Dermatolo gical Protonix 40 mg tablet,ada yed release 09-24 00:00: 00 Yes [id number] REFLUX 1 tablet TWICE DAILY 1 tablet TWICE DAILY (route: oral) Med Classific ation: Gastroint estinal Therapy Agents Proventil HFA 90 mcg/actuati on aerosol inhaler 09-24 00:00: 00 Yes [id number] COUGH 1 puff EVERY 6 HOURS 1 puff EVERY 6 HOURS (route: inhalation ) Med Classific ation: Respirato ry Therapy Agents tramadol 50 mg tablet 09-24 00:00: 00 Yes [id number] PAIN 2 tablet EVERY 6 HOURS PRN 2 tablet EVERY 6 HOURS PRN (route: oral) Med Classific ation: Analgesic , Anti-infl ammatory or Antipyret ic Tylenol 325 mg tablet 09-24 00:00: 00 Yes [id number] PAIN 2 tablet EVERY 6 HOURS 2 tablet EVERY 6 HOURS (route: oral) Med Classific ation: Analgesic , Anti-infl ammatory or Antipyret ic carvedilol 25 mg tablet - 00:00: 00 02-26 23:59 :00 No [id number] HYPERTENSIO N 1 tablet TWICE DAILY 1 tablet TWICE DAILY (route: oral) Med Classific ation: Cardiovas cular Therapy Agents sevelamer carbonate 800 mg tablet - 00:00: 00 01-16 23:59 :00 No [id number] ESRD 1 tablet 3 TIMES DAILY 1 tablet 3 TIMES DAILY (route: oral) Alternate Route: BY MOUTH. Med Classific ation: Genitouri nary Therapy Lantus Solostar U-100 Insulin 100 unit/mL (3 mL) subcutaneou s pen 03-02 00:00: 00 03-04 23:59 :00 No [id number] T2D 12 unit AT BEDTIME 12 unit AT BEDTIME (route: subcutaneo ) Med Classific ation: Endocrine Basaglar KwikPen U-100 Insulin 100 unit/mL (3 mL) subcutaneou s 03-04 00:00: 00 05-02 23:59 :00 No [id number] DIABETES MELLITUS TYPE TWO 18 unit AT BEDTIME 18 unit AT BEDTIME (route: subcutaneo us) Alternate Route: SUBCUTANE OUS. Med Classific ation: Endocrine benzonatate 200 mg capsule 2023-06 0-17 00:00: 00 04-05 23:59 :00 No [id number] COUGH 1 capsule 3 TIMES DAILY 1 capsule 3 TIMES DAILY (route: oral) Med Classific ation: Respirato ry Therapy Agents doxycycline hyclate 100 mg capsule 2023-06 0-17 00:00: 00 04-05 23:59 :00 No [id number] INFECTION PREVENTION 1 capsule TWICE DAILY 1 capsule TWICE DAILY (route: oral) Med Classific ation: Anti-Infe ctive Agents insulin lispro (U-100) 100 unit/mL subcutaneou s pen 2023-06 0-28 00:00: 00 05-02 23:59 :00 No [id number] DIABETES MELLITUS 10 unit 3 TIMES DAILY 10 unit 3 TIMES DAILY (route: subcutaneo us) Med Classific ation: Endocrine Basaglar KwikPen U-100 Insulin 100 unit/mL (3 mL) subcutaneou s 2023-0618 00:00: 00 09-13 23:59 :00 No [id number] DIABETES MELLITUS 24 unit AT BEDTIME 24 unit AT BEDTIME (route: subcutaneo us) Med Classific ation: Endocrine insulin lispro (U-100) 100 unit/mL subcutaneou s pen 2023-06 1-18 00:00: 00 01-16 23:59 :00 No [id number] DIABETES MELLITUS 12 unit 3 TIMES DAILY 12 unit 3 TIMES DAILY (route: subcutaneo us) Med Classific ation: Endocrine carvedilol 25 mg tablet 2023-06 2-13 00:00: 00 11-17 23:59 :00 No [id number] HYPERTENSIO N Per instruc tions DIRECTED Per instructio ns DIRECTED (route: oral) Med Classific ation: Cardiovas cular Therapy Agents bumetanide 1 mg tablet 3-17 00:00: 00 12-01 23:59 :00 No [id number] FLUID OVERLOAD 1 tablet ONCE DAILY 1 tablet ONCE DAILY (route: oral) Alternate Route: BY MOUTH. Med Classific ation: Cardiovas cular Therapy Agents Nexium 24HR 20 mg capsule,del ayed release 3-17 00:00: 00 Yes [id number] GERD 1 capsule ONCE DAILY 1 capsule ONCE DAILY (route: oral) Alternate Route: BY MOUTH. Med Classific ation: Gastroint estinal Therapy Agents Basaglar KwikPen U-100 Insulin 100 unit/mL (3 mL) subcutaneou s 10-11 00:00: 00 01-16 23:59 :00 No [id number] HYPERGLYCEM IA 30 unit AT BEDTIME 30 unit AT BEDTIME (route: subcutaneo us) Alternate Route: SUBCUTANE OUS. Med Classific ation: Endocrine bumetanide 1 mg tablet 10-11 00:00: 00 Yes [id number] FLUID OVERLOAD 1 tablet ONCE DAILY 1 tablet ONCE DAILY (route: oral) Alternate Route: BY MOUTH. Med Classific ation: Cardiovas cular Therapy Agents hydralazine 100 mg tablet 10-11 00:00: 00 Yes [id number] IF SYSTOLIC BP ABOVE 180 1 tablet ONCE DAILY 1 tablet ONCE DAILY (route: oral) Alternate Route: BY MOUTH. Med Classific ation: Cardiovas cular Therapy Agents amlodipine 10 mg tablet 11-04 00:00: 00 12-01 23:59 :00 No [id number] HYPERTENSIO N 1 tablet ONCE DAILY 1 tablet ONCE DAILY (route: oral) Med Classific ation: Cardiovas cular Therapy Agents carvedilol 6.25 mg tablet 11-14 00:00: 00 Yes [id number] HYPERTENSIO N 0.5 tablet DIRECTED 0.5 tablet DIRECTED (route: oral) Med Classific ation: Cardiovas cular Therapy Agents gabapentin 100 mg capsule 11-17 00:00: 00 Yes [id number] NERVE PAIN 2 capsule TWICE DAILY 2 capsule TWICE DAILY (route: oral) Med Classific ation: Central Nervous System Agents amlodipine 10 mg tablet 11-16 00:00: 00 Yes [id number] HYPERTENSIO N 0.5 tablet 3 TIMES DAILY 0.5 tablet 3 TIMES DAILY (route: oral) Med Classific ation: Cardiovas cular Therapy Agents doxycycline monohydrate 100 mg capsule 11-19 00:00: 00 11-29 23:59 :00 No [id number] URI 1 capsule TWICE DAILY 1 capsule TWICE DAILY (route: oral) Alternate Route: BY MOUTH. Med Classific ation: Anti-Infe ctive Agents Mounjaro 5 mg/0.5 mL subcutaneou s pen injector 11-19 00:00: 00 Yes [id number] DIABETES MELLITUS 5 mg WEEKLY 5 mg WEEKLY (route: subcutaneo us) Med Classific ation: Endocrine sevelamer HCl 800 mg tablet 12-27 00:00: 00 Yes [id number] HIGH PHOSPHORUS LEVELS 2 tablet 3 TIMES DAILY 2 tablet 3 TIMES DAILY (route: oral) Med Classific ation: Genitouri nary Therapy Basaglar KwikPen U-100 Insulin 100 unit/mL (3 mL) subcutaneou s 01-17 00:00: 00 Yes [id number] DIABETES 40 unit AT BEDTIME 40 unit AT BEDTIME (route: subcutaneo us) Alternate Route: SUBCUTANE OUS. Med Classific ation: Endocrine insulin lispro (U-100) 100 unit/mL subcutaneou s pen 01-17 00:00: 00 Yes [id number] DIABETES 15 unit 3 TIMES DAILY 15 unit 3 TIMES DAILY (route: subcutaneo us) Med Classific ation: Endocrine Mounjaro 5 mg/0.5 mL subcutaneou s pen injector 11-19 00:00: 00 Yes [id number] DIABETES MELLITUS 5 mg WEEKLY 5 mg WEEKLY (route: subcutaneo us) Med Classific ation: Endocrine Immunizations Ordered Immunization Name Filled Immunization Name Date Status Comments Refusal Reason INFLUENZA NOT GIVEN - NOT FLU SEASON, TIV (INACTIVATED) 2023-09-25 00:00:00 PNEUMOCOCCAL DOES NOT MEET THE AGE/CONDITION GUIDELINES, PPV 2023-09-25 00:00:00 Vital Signs Vital Name Observation Time Observation Value Commen ts Temperature 2025-02-20 14:20:00.000 97.7 [degF] Temperature 2025-02-16 12:45:00.000 98.9 [degF] Temperature 2025-02-09 12:12:00.000 97.7 [degF] Temperature 2025-01-31 13:29:00.000 97.2 [degF] Temperature 2025-01-26 10:24:00.000 97.6 [degF] Pulse 2025-02-20 14:20:00.000 80 /min Pulse 2025-02-16 12:45:00.000 88 /min Pulse 2025-02-09 12:12:00.000 64 /min Pulse 2025-01-31 13:29:00.000 90 /min Pulse 2025-01-26 10:24:00.000 90 /min O2 Saturation (%) 2025-02-20 14:20:00.000 98 % O2 Saturation (%) 2025-02-16 12:45:00.000 98 % O2 Saturation (%) 2025-02-09 12:12:00.000 97 % O2 Saturation (%) 2025-01-31 13:29:00.000 95 % O2 Saturation (%) 2025-01-26 10:24:00.000 98 % Respirations 2025-02-20 14:20:00.000 20 /min Respirations 2025-02-16 12:45:00.000 18 /min Respirations 2025-02-09 12:12:00.000 20 /min Respirations 2025-01-31 13:29:00.000 18 /min Respirations 2025-01-26 10:24:00.000 20 /min Weight (lbs) 2025-02-20 14:20:00.000 293 [lb_av] Weight (lbs) 2025-02-09 12:12:00.000 285 [lb_av] Weight (lbs) 2025-01-31 13:29:00.000 285 [lb_av] Systolic Blood Pressure 2025-02-20 14:20:00.000 140 mm [Hg] Systolic Blood Pressure 2025-02-16 12:45:00.000 124 mm [Hg] Systolic Blood Pressure 2025-02-09 12:12:00.000 108 mm [Hg] Systolic Blood Pressure 2025-01-31 13:29:00.000 124 mm [Hg] Systolic Blood Pressure 2025-01-26 10:24:00.000 136 mm [Hg] Diastolic Blood Pressure 2025-02-20 14:20:00.000 80 mm [Hg] Diastolic Blood Pressure 2025-02-16 12:45:00.000 82 mm [Hg] Diastolic Blood Pressure 2025-02-09 12:12:00.000 60 mm [Hg] Diastolic Blood Pressure 2025-01-31 13:29:00.000 70 mm [Hg] Diastolic Blood Pressure 2025-01-26 10:24:00.000 82 mm [Hg] Plan of Treatment Planned Activity Planned Date Details Comments Future Scheduled [facility] INSTRUCT PATIENT/CAREGIVER ON TYPE [...] EXPERIENCES LOW BLOOD SUGAR.] Future Scheduled Test [facility] NURSE WILL INSTRUCT AND VERIFY APPROPRIATE STEPS [...] OF TIMES PER DAY.] Future Scheduled Test [facility] NURSE TO INSTRUCT ON CHRONIC KIDNEY DISEASE ITS COMPLICATIONS, AND WHEN TO CONTACT THE AGENCY, PHYSICIAN OR 911 [code = HOME HEALTH NURSE TO INSTRUCT ON CHRONIC KIDNEY DISEASE ITS COMPLICATIONS, AND WHEN TO CONTACT THE AGENCY, PHYSICIAN OR 911] Future Scheduled Test [facility] TIFYING PHYSICIAN, ASSOCIATED PHYSICIAN, NPP OR PA WITHIN THE SAME GROUP MAY APPROVE AND SIGN THE ORDER (ON ANY PAGE) ATTESTING THAT THE COMPREHENSIVE OUTCOME ASSESSMENTS, EVALUATIONS, AND HOME HEALTH CERTIFICATION PLANS SUPPORT HOMEBOUND STATUS. HOME HEALTH WEB-PORTAL DOCUMENTATION ACCESSED BY THE PHYSICIAN MUST BE INCORPORATED INTO THE MEDICAL RECORD TO CORROBORATE THE PHYSICIAN, NPP, OR PA S F2F ENCOUNTER TO SUPPORT ELIGIBILITY FOR HOME [...] RECORD TO CORROBORATE THE PHYSICIAN, NPP, OR PA S F2F ENCOUNTER TO SUPPORT ELIGIBILITY FOR HOME [...] CERTIFIED CARE PLAN: DR RIMA STOLL-PCP, DR HENAO NEPHROLOGY, DR KIRSTIN ZELAYA-CARDIOLOGY AND ANYONE COVERING [...] CERTIFIED CARE PLAN: DR RIMA STOLL-PCP, DR HENAO NEPHROLOGY, DR KIRSTIN ZELAYA-CARDIOLOGY AND ANYONE COVERING [...] 150 MINUTES SPREAD THROUGHOUT THE WEEK.] Goal Patient Goal - S OC 09/24- [...] UNDER CONTROL RECERT 01/16/25: NO UPDATES Goal 2023-11-20 Patient Goal - SOC 09/24- GET STRONGER Goal 2024-01-18 Patient Goal - [...] RECERT 07/19/24: STAY OUT OF HOSPITAL Goal 2024-11-17 Patient Goal - S OC 09/24- GET STRONGER RECERT 11/20/2023: TO GET AROUND BETTER PHIL 01/04/24: STAY OUT OF HOSPITAL RECERT 01/18/2024: TO WALK AGAIN 03/02/24 PHIL: TO STAY OUT OF HOSPITAL RECERT 03/21/24: TO GET STRONGER RECERT 05/17/24: TO STAY OUT OF THE HOSPITAL RECERT 07/19/24: STAY OUT OF HOSPITAL RECERT 09/15/24: TO GET STRONGER Goal 2025-01-16 Patient Goal - S OC [...] TO GET MY BS UNDER CONTROL Goal 2024-05-17 Patient Goal - S OC [...] RECERT 11/20/2023: TO GET AROUND BETTER Goal Provider Goal - PATIENT/CAREGIVER WILL VERBALIZE [...] WILL BE ESTABLISHED THAT MEETS ALL PATIENT'S INTERMEDIATE NEEDS AND COUNTER SIGNED BY PHYSICIAN. Goal [...] STRATEGIES CAN ASSIST TO CONTROL BLOOD PRESSURE. Encounters Start Date/Time End Date/Time Encounter Type Admission Type Attending [facility] Department Encounter ID Discharge Date Discharge Status Discharge Condition Discharge Reason Percent Goals Met 2025-01-17 00:00:00 2025-03-17 00:00:00 Outpatient RECERTIFIC ATION JESSIE MENJIVAR [facility] [id number] 45.45
--- OUTSIDE RECORDS SUMMARY | 2025-03-16 19:00 | XMS_ITS | Clinical Summary ---
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 06-15 00:00: 00 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 Active 06-15 00:00: [...] 100 mg tablet 09-24 00:00: 00 Yes [id number] HYPERPHOSPH ATEMIA 1 tablet TWICE DAILY 1 tablet TWICE DAILY (route: oral) Med Classific ation: Gout and Hyperuric emia Therapy amiodarone 200 mg tablet 09-24 00:00: 00 Yes [id number] AFIB 1 tablet ONCE DAILY 1 tablet ONCE DAILY (route: oral) Med Classific ation: Cardiovas cular Therapy Agents atorvastati n 20 mg tablet 09-24 00:00: 00 Yes [id number] HIGH CHOLESTEROL 1 tablet ONCE DAILY 1 tablet ONCE DAILY (route: oral) Med Classific ation: Cardiovas cular Therapy Agents calcitriol 0.25 mcg capsule 09-24 00:00: 00 Yes [id number] SUPPLEMENT 1 capsule DIRECTED 1 capsule DIRECTED (route: oral) Med Classific ation: Electroly te Balance-N utritiona l Products carvedilol 12.5 mg tablet 09-24 00:00: 00 12-08 23:59 :00 No [id number] HYPERTENSIO N 1 tablet TWICE DAILY 1 tablet TWICE DAILY (route: oral) Med Classific ation: Cardiovas cular Therapy Agents Eliquis 5 mg tablet 09-24 00:00: 00 Yes [id number] AFIB 1 tablet TWICE DAILY 1 tablet TWICE DAILY (route: oral) Med Classific ation: Hematolog ical Agents fluticasone propionate 50 mcg/actuati on blister powder for inhalation 09-24 00:00: 00 Yes [id number] ALLERGIES 1 inhalat ion TWICE DAILY 1 inhalation TWICE DAILY (route: inhalation ) Med Classific ation: Respirato ry Therapy Agents gabapentin 100 mg capsule 09-24 00:00: 00 11-17 23:59 :00 No [id number] NERVE PAIN 1 capsule TWICE DAILY 1 capsule TWICE DAILY (route: oral) Med Classific ation: Central Nervous System Agents insulin lispro (U-100) 100 unit/mL subcutaneou s pen 09-24 00:00: 00 04-11 23:59 :00 No [id number] TYPE TWO DIABETES 8 unit 3 TIMES DAILY 8 unit 3 TIMES DAILY (route: subcutaneo us) Alternate Route: SUBCUTANE OUS. Med Classific ation: Endocrine lactulose 10 gram/15 mL (15 mL) oral solution 09-24 00:00: 00 Yes [id number] CONSTIPATIO N 30 mL TWICE DAILY 30 mL TWICE DAILY (route: oral) Med Classific ation: Gastroint estinal Therapy Agents Lantus Solostar U-100 Insulin 100 unit/mL (3 mL) subcutaneou s pen 09-24 00:00: 00 03-02 23:59 :00 No [id number] TYPE 2 DIABETES 10 unit AT BEDTIME 10 unit AT BEDTIME (route: subcutaneo us) Alternate Route: SUBCUTANE OUS. Med Classific ation: Endocrine midodrine 10 mg tablet 09-24 00:00: 00 Yes [id number] REGULATE BLOOD PRESSURE 1 tablet 3 TIMES DAILY 1 tablet 3 TIMES DAILY (route: oral) Med Classific ation: Cardiovas cular Therapy Agents nystatin 100,000 unit/gram topical powder 09-24 00:00: 00 Yes [id number] MOISTURE TO SKIN FOLDS OF GROIN 1 gram TWICE DAILY 1 gram TWICE DAILY (route: topical) Med Classific ation: Dermatolo gical Protonix 40 mg tablet,ada yed release 09-24 00:00: 00 Yes [id number] REFLUX 1 tablet TWICE DAILY 1 tablet TWICE DAILY (route: oral) Med Classific ation: Gastroint estinal Therapy Agents Proventil HFA 90 mcg/actuati on aerosol inhaler 09-24 00:00: 00 Yes [id number] COUGH 1 puff EVERY 6 HOURS 1 puff EVERY 6 HOURS (route: inhalation ) Med Classific ation: Respirato ry Therapy Agents tramadol 50 mg tablet 09-24 00:00: 00 Yes [id number] PAIN 2 tablet EVERY 6 HOURS PRN 2 tablet EVERY 6 HOURS PRN (route: oral) Med Classific ation: Analgesic , Anti-infl ammatory or Antipyret ic Tylenol 325 mg tablet 09-24 00:00: 00 Yes [id number] PAIN 2 tablet EVERY 6 HOURS 2 tablet EVERY 6 HOURS (route: oral) Med Classific ation: Analgesic , Anti-infl ammatory or Antipyret ic carvedilol 25 mg tablet - 00:00: 00 02-26 23:59 :00 No [id number] HYPERTENSIO N 1 tablet TWICE DAILY 1 tablet TWICE DAILY (route: oral) Med Classific ation: Cardiovas cular Therapy Agents sevelamer carbonate 800 mg tablet - 00:00: 00 01-16 23:59 :00 No [id number] ESRD 1 tablet 3 TIMES DAILY 1 tablet 3 TIMES DAILY (route: oral) Alternate Route: BY MOUTH. Med Classific ation: Genitouri nary Therapy Lantus Solostar U-100 Insulin 100 unit/mL (3 mL) subcutaneou s pen 03-02 00:00: 00 03-04 23:59 :00 No [id number] T2D 12 unit AT BEDTIME 12 unit AT BEDTIME (route: subcutaneo ) Med Classific ation: Endocrine Basaglar KwikPen U-100 Insulin 100 unit/mL (3 mL) subcutaneou s 03-04 00:00: 00 05-02 23:59 :00 No [id number] DIABETES MELLITUS TYPE TWO 18 unit AT BEDTIME 18 unit AT BEDTIME (route: subcutaneo us) Alternate Route: SUBCUTANE OUS. Med Classific ation: Endocrine benzonatate 200 mg capsule 2023-06 0-17 00:00: 00 04-05 23:59 :00 No [id number] COUGH 1 capsule 3 TIMES DAILY 1 capsule 3 TIMES DAILY (route: oral) Med Classific ation: Respirato ry Therapy Agents doxycycline hyclate 100 mg capsule 2023-06 0-17 00:00: 00 04-05 23:59 :00 No [id number] INFECTION PREVENTION 1 capsule TWICE DAILY 1 capsule TWICE DAILY (route: oral) Med Classific ation: Anti-Infe ctive Agents insulin lispro (U-100) 100 unit/mL subcutaneou s pen 2023-06 0-28 00:00: 00 05-02 23:59 :00 No [id number] DIABETES MELLITUS 10 unit 3 TIMES DAILY 10 unit 3 TIMES DAILY (route: subcutaneo us) Med Classific ation: Endocrine Basaglar KwikPen U-100 Insulin 100 unit/mL (3 mL) subcutaneou s 2023-0618 00:00: 00 09-13 23:59 :00 No [id number] DIABETES MELLITUS 24 unit AT BEDTIME 24 unit AT BEDTIME (route: subcutaneo us) Med Classific ation: Endocrine insulin lispro (U-100) 100 unit/mL subcutaneou s pen 2023-06 1-18 00:00: 00 01-16 23:59 :00 No [id number] DIABETES MELLITUS 12 unit 3 TIMES DAILY 12 unit 3 TIMES DAILY (route: subcutaneo us) Med Classific ation: Endocrine carvedilol 25 mg tablet 2023-06 2-13 00:00: 00 11-17 23:59 :00 No [id number] HYPERTENSIO N Per instruc tions DIRECTED Per instructio ns DIRECTED (route: oral) Med Classific ation: Cardiovas cular Therapy Agents bumetanide 1 mg tablet 3-17 00:00: 00 12-01 23:59 :00 No [id number] FLUID OVERLOAD 1 tablet ONCE DAILY 1 tablet ONCE DAILY (route: oral) Alternate Route: BY MOUTH. Med Classific ation: Cardiovas cular Therapy Agents Nexium 24HR 20 mg capsule,del ayed release 3-17 00:00: 00 Yes [id number] GERD 1 capsule ONCE DAILY 1 capsule ONCE DAILY (route: oral) Alternate Route: BY MOUTH. Med Classific ation: Gastroint estinal Therapy Agents Basaglar KwikPen U-100 Insulin 100 unit/mL (3 mL) subcutaneou s 10-11 00:00: 00 01-16 23:59 :00 No [id number] HYPERGLYCEM IA 30 unit AT BEDTIME 30 unit AT BEDTIME (route: subcutaneo us) Alternate Route: SUBCUTANE OUS. Med Classific ation: Endocrine bumetanide 1 mg tablet 10-11 00:00: 00 Yes [id number] FLUID OVERLOAD 1 tablet ONCE DAILY 1 tablet ONCE DAILY (route: oral) Alternate Route: BY MOUTH. Med Classific ation: Cardiovas cular Therapy Agents hydralazine 100 mg tablet 10-11 00:00: 00 Yes [id number] IF SYSTOLIC BP ABOVE 180 1 tablet ONCE DAILY 1 tablet ONCE DAILY (route: oral) Alternate Route: BY MOUTH. Med Classific ation: Cardiovas cular Therapy Agents amlodipine 10 mg tablet 11-04 00:00: 00 12-01 23:59 :00 No [id number] HYPERTENSIO N 1 tablet ONCE DAILY 1 tablet ONCE DAILY (route: oral) Med Classific ation: Cardiovas cular Therapy Agents carvedilol 6.25 mg tablet 11-14 00:00: 00 Yes [id number] HYPERTENSIO N 0.5 tablet DIRECTED 0.5 tablet DIRECTED (route: oral) Med Classific ation: Cardiovas cular Therapy Agents gabapentin 100 mg capsule 11-17 00:00: 00 Yes [id number] NERVE PAIN 2 capsule TWICE DAILY 2 capsule TWICE DAILY (route: oral) Med Classific ation: Central Nervous System Agents amlodipine 10 mg tablet 11-16 00:00: 00 Yes [id number] HYPERTENSIO N 0.5 tablet 3 TIMES DAILY 0.5 tablet 3 TIMES DAILY (route: oral) Med Classific ation: Cardiovas cular Therapy Agents doxycycline monohydrate 100 mg capsule 11-19 00:00: 00 11-29 23:59 :00 No [id number] URI 1 capsule TWICE DAILY 1 capsule TWICE DAILY (route: oral) Alternate Route: BY MOUTH. Med Classific ation: Anti-Infe ctive Agents Mounjaro 5 mg/0.5 mL subcutaneou s pen injector 11-19 00:00: 00 Yes [id number] DIABETES MELLITUS 5 mg WEEKLY 5 mg WEEKLY (route: subcutaneo us) Med Classific ation: Endocrine sevelamer HCl 800 mg tablet 12-27 00:00: 00 Yes [id number] HIGH PHOSPHORUS LEVELS 2 tablet 3 TIMES DAILY 2 tablet 3 TIMES DAILY (route: oral) Med Classific ation: Genitouri nary Therapy Basaglar KwikPen U-100 Insulin 100 unit/mL (3 mL) subcutaneou s 01-17 00:00: 00 Yes [id number] DIABETES 40 unit AT BEDTIME 40 unit AT BEDTIME (route: subcutaneo us) Alternate Route: SUBCUTANE OUS. Med Classific ation: Endocrine insulin lispro (U-100) 100 unit/mL subcutaneou s pen 01-17 00:00: 00 Yes [id number] DIABETES 15 unit 3 TIMES DAILY 15 unit 3 TIMES DAILY (route: subcutaneo us) Med Classific ation: Endocrine Mounjaro 5 mg/0.5 mL subcutaneou s pen injector 11-19 00:00: 00 Yes [id number] DIABETES MELLITUS 5 mg WEEKLY 5 mg [...] Date Details Comments [facility] WILL INSTRUCT PATIENT/CAREGIVER ON [...] EXPERIENCES LOW BLOOD SUGAR.] Future Scheduled Test [facility] NURSE WILL INSTRUCT AND VERIFY APPROPRIATE [...] OF TIMES PER DAY.] Future Scheduled Test [facility] NURSE TO INSTRUCT ON CHRONIC KIDNEY DISEASE ITS COMPLICATIONS, AND WHEN TO CONTACT THE AGENCY, PHYSICIAN OR 911 [code = HOME HEALTH NURSE TO INSTRUCT ON CHRONIC KIDNEY DISEASE ITS COMPLICATIONS, AND WHEN TO CONTACT THE AGENCY, PHYSICIAN OR 911] Future Scheduled Test [facility] TIFYING PHYSICIAN, ASSOCIATED PHYSICIAN, NPP OR [...] Goal 2024-07-19 Patient Goal - S OC 4/12- GET STRONGER RECERT 11/20/2023: TO GET AROUND BETTER PHIL 01/04/24: STAY OUT OF HOSPITAL RECERT 01/18/2024: TO WALK AGAIN 03/02/24 PHIL: TO STAY OUT OF HOSPITAL RECERT 03/21/24: TO GET STRONGER RECERT 05/17/24: TO STAY OUT OF THE HOSPITAL Goal 2024-05-17 Patient Goal - S OC 4/12- GET STRONGER RECERT 11/20/2023: TO GET AROUND BETTER PHIL 01/04/24: STAY OUT OF HOSPITAL RECERT 01/18/2024: TO WALK AGAIN 03/02/24 PHIL: TO STAY OUT OF HOSPITAL RECERT 03/21/24: TO GET STRONGER Goal 2024-03-02 Patient Goal - S OC 4/12- GET STRONGER RECERT 11/20/2023: TO GET AROUND BETTER PHIL 01/04/24: STAY OUT OF HOSPITAL RECERT 01/18/2024: TO WALK AGAIN Goal 2024-01-04 Patient Goal - S OC 4/12- GET STRONGER RECERT 11/20/2023: TO GET AROUND BETTER Goal Patient Goal - S OC 4/12- GET STRONGER RECERT 11/20/2023: TO GET AROUND [...] Goal 2025-01-16 Patient Goal - S OC 4/12- GET STRONGER RECERT 11/20/2023: TO GET AROUND [...] WILL BE ESTABLISHED THAT MEETS ALL PATIENT'S SHELTER NEEDS AND COUNTER SIGNED BY PHYSICIAN. Goal [...] End Date/Time Encounter Type Admission Type Attending [facility] Department Encounter ID Discharge Date Discharge Status Discharge Condition Discharge Reason Percent Goals Met 2025-01-17 00:00:00 2025-03-17 00:00:00 Outpatient RECERTIFIC ATION JESSIE MENJIVAR [facility] [id number] 45.45
--- OUTSIDE RECORDS SUMMARY | 2025-03-16 19:00 | XMS_ITS | Clinical Summary ---
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 06-15 00:00: [...] 100 mg tablet 09-24 00:00: 00 Yes [id number] HYPERPHOSPH ATEMIA 1 tablet TWICE DAILY 1 tablet TWICE DAILY (route: oral) Med Classific ation: Gout and Hyperuric emia Therapy amiodarone 200 mg tablet 09-24 00:00: 00 Yes [id number] AFIB 1 tablet ONCE DAILY 1 tablet ONCE DAILY (route: oral) Med Classific ation: Cardiovas cular Therapy Agents atorvastati n 20 mg tablet 09-24 00:00: 00 Yes [id number] HIGH CHOLESTEROL 1 tablet ONCE DAILY 1 tablet ONCE DAILY (route: oral) Med Classific ation: Cardiovas cular Therapy Agents calcitriol 0.25 mcg capsule 09-24 00:00: 00 Yes [id number] SUPPLEMENT 1 capsule DIRECTED 1 capsule DIRECTED (route: oral) Med Classific ation: Electroly te Balance-N utritiona l Products carvedilol 12.5 mg tablet 09-24 00:00: 00 12-08 23:59 :00 No [id number] HYPERTENSIO N 1 tablet TWICE DAILY 1 tablet TWICE DAILY (route: oral) Med Classific ation: Cardiovas cular Therapy Agents Eliquis 5 mg tablet 09-24 00:00: 00 Yes [id number] AFIB 1 tablet TWICE DAILY 1 tablet TWICE DAILY (route: oral) Med Classific ation: Hematolog ical Agents fluticasone propionate 50 mcg/actuati on blister powder for inhalation 09-24 00:00: 00 Yes [id number] ALLERGIES 1 inhalat ion TWICE DAILY 1 inhalation TWICE DAILY (route: inhalation ) Med Classific ation: Respirato ry Therapy Agents gabapentin 100 mg capsule 09-24 00:00: 00 11-17 23:59 :00 No [id number] NERVE PAIN 1 capsule TWICE DAILY 1 capsule TWICE DAILY (route: oral) Med Classific ation: Central Nervous System Agents insulin lispro (U-100) 100 unit/mL subcutaneou s pen 09-24 00:00: 00 04-11 23:59 :00 No [id number] TYPE TWO DIABETES 8 unit 3 TIMES DAILY 8 unit 3 TIMES DAILY (route: subcutaneo us) Alternate Route: SUBCUTANE OUS. Med Classific ation: Endocrine lactulose 10 gram/15 mL (15 mL) oral solution 09-24 00:00: 00 Yes [id number] CONSTIPATIO N 30 mL TWICE DAILY 30 mL TWICE DAILY (route: oral) Med Classific ation: Gastroint estinal Therapy Agents Lantus Solostar U-100 Insulin 100 unit/mL (3 mL) subcutaneou s pen 09-24 00:00: 00 03-02 23:59 :00 No [id number] TYPE 2 DIABETES 10 unit AT BEDTIME 10 unit AT BEDTIME (route: subcutaneo us) Alternate Route: SUBCUTANE OUS. Med Classific ation: Endocrine midodrine 10 mg tablet 09-24 00:00: 00 Yes [id number] REGULATE BLOOD PRESSURE 1 tablet 3 TIMES DAILY 1 tablet 3 TIMES DAILY (route: oral) Med Classific ation: Cardiovas cular Therapy Agents nystatin 100,000 unit/gram topical powder 09-24 00:00: 00 Yes [id number] MOISTURE TO SKIN FOLDS OF GROIN 1 gram TWICE DAILY 1 gram TWICE DAILY (route: topical) Med Classific ation: Dermatolo gical Protonix 40 mg tablet,ada yed release 09-24 00:00: 00 Yes [id number] REFLUX 1 tablet TWICE DAILY 1 tablet TWICE DAILY (route: oral) Med Classific ation: Gastroint estinal Therapy Agents Proventil HFA 90 mcg/actuati on aerosol inhaler 09-24 00:00: 00 Yes [id number] COUGH 1 puff EVERY 6 HOURS 1 puff EVERY 6 HOURS (route: inhalation ) Med Classific ation: Respirato ry Therapy Agents tramadol 50 mg tablet 09-24 00:00: 00 Yes [id number] PAIN 2 tablet EVERY 6 HOURS PRN 2 tablet EVERY 6 HOURS PRN (route: oral) Med Classific ation: Analgesic , Anti-infl ammatory or Antipyret ic Tylenol 325 mg tablet 09-24 00:00: 00 Yes [id number] PAIN 2 tablet EVERY 6 HOURS 2 tablet EVERY 6 HOURS (route: oral) Med Classific ation: Analgesic , Anti-infl ammatory or Antipyret ic carvedilol 25 mg tablet - 00:00: 00 02-26 23:59 :00 No [id number] HYPERTENSIO N 1 tablet TWICE DAILY 1 tablet TWICE DAILY (route: oral) Med Classific ation: Cardiovas cular Therapy Agents sevelamer carbonate 800 mg tablet - 00:00: 00 01-16 23:59 :00 No [id number] ESRD 1 tablet 3 TIMES DAILY 1 tablet 3 TIMES DAILY (route: oral) Alternate Route: BY MOUTH. Med Classific ation: Genitouri nary Therapy Lantus Solostar U-100 Insulin 100 unit/mL (3 mL) subcutaneou s pen 03-02 00:00: 00 03-04 23:59 :00 No [id number] T2D 12 unit AT BEDTIME 12 unit AT BEDTIME (route: subcutaneo ) Med Classific ation: Endocrine Basaglar KwikPen U-100 Insulin 100 unit/mL (3 mL) subcutaneou s 03-04 00:00: 00 05-02 23:59 :00 No [id number] DIABETES MELLITUS TYPE TWO 18 unit AT BEDTIME 18 unit AT BEDTIME (route: subcutaneo us) Alternate Route: SUBCUTANE OUS. Med Classific ation: Endocrine benzonatate 200 mg capsule 2023-06 0-17 00:00: 00 04-05 23:59 :00 No [id number] COUGH 1 capsule 3 TIMES DAILY 1 capsule 3 TIMES DAILY (route: oral) Med Classific ation: Respirato ry Therapy Agents doxycycline hyclate 100 mg capsule 2023-06 0-17 00:00: 00 04-05 23:59 :00 No [id number] INFECTION PREVENTION 1 capsule TWICE DAILY 1 capsule TWICE DAILY (route: oral) Med Classific ation: Anti-Infe ctive Agents insulin lispro (U-100) 100 unit/mL subcutaneou s pen 2023-06 0-28 00:00: 00 05-02 23:59 :00 No [id number] DIABETES MELLITUS 10 unit 3 TIMES DAILY 10 unit 3 TIMES DAILY (route: subcutaneo us) Med Classific ation: Endocrine Basaglar KwikPen U-100 Insulin 100 unit/mL (3 mL) subcutaneou s 2023-0618 00:00: 00 09-13 23:59 :00 No [id number] DIABETES MELLITUS 24 unit AT BEDTIME 24 unit AT BEDTIME (route: subcutaneo us) Med Classific ation: Endocrine insulin lispro (U-100) 100 unit/mL subcutaneou s pen 2023-06 1-18 00:00: 00 01-16 23:59 :00 No [id number] DIABETES MELLITUS 12 unit 3 TIMES DAILY 12 unit 3 TIMES DAILY (route: subcutaneo us) Med Classific ation: Endocrine carvedilol 25 mg tablet 2023-06 2-13 00:00: 00 11-17 23:59 :00 No [id number] HYPERTENSIO N Per instruc tions DIRECTED Per instructio ns DIRECTED (route: oral) Med Classific ation: Cardiovas cular Therapy Agents bumetanide 1 mg tablet 3-17 00:00: 00 12-01 23:59 :00 No [id number] FLUID OVERLOAD 1 tablet ONCE DAILY 1 tablet ONCE DAILY (route: oral) Alternate Route: BY MOUTH. Med Classific ation: Cardiovas cular Therapy Agents Nexium 24HR 20 mg capsule,del ayed release 3-17 00:00: 00 Yes [id number] GERD 1 capsule ONCE DAILY 1 capsule ONCE DAILY (route: oral) Alternate Route: BY MOUTH. Med Classific ation: Gastroint estinal Therapy Agents Basaglar KwikPen U-100 Insulin 100 unit/mL (3 mL) subcutaneou s 10-11 00:00: 00 01-16 23:59 :00 No [id number] HYPERGLYCEM IA 30 unit AT BEDTIME 30 unit AT BEDTIME (route: subcutaneo us) Alternate Route: SUBCUTANE OUS. Med Classific ation: Endocrine bumetanide 1 mg tablet 10-11 00:00: 00 Yes [id number] FLUID OVERLOAD 1 tablet ONCE DAILY 1 tablet ONCE DAILY (route: oral) Alternate Route: BY MOUTH. Med Classific ation: Cardiovas cular Therapy Agents hydralazine 100 mg tablet 10-11 00:00: 00 Yes [id number] IF SYSTOLIC BP ABOVE 180 1 tablet ONCE DAILY 1 tablet ONCE DAILY (route: oral) Alternate Route: BY MOUTH. Med Classific ation: Cardiovas cular Therapy Agents amlodipine 10 mg tablet 11-04 00:00: 00 12-01 23:59 :00 No [id number] HYPERTENSIO N 1 tablet ONCE DAILY 1 tablet ONCE DAILY (route: oral) Med Classific ation: Cardiovas cular Therapy Agents carvedilol 6.25 mg tablet 11-14 00:00: 00 Yes [id number] HYPERTENSIO N 0.5 tablet DIRECTED 0.5 tablet DIRECTED (route: oral) Med Classific ation: Cardiovas cular Therapy Agents gabapentin 100 mg capsule 11-17 00:00: 00 Yes [id number] NERVE PAIN 2 capsule TWICE DAILY 2 capsule TWICE DAILY (route: oral) Med Classific ation: Central Nervous System Agents amlodipine 10 mg tablet 11-16 00:00: 00 Yes [id number] HYPERTENSIO N 0.5 tablet 3 TIMES DAILY 0.5 tablet 3 TIMES DAILY (route: oral) Med Classific ation: Cardiovas cular Therapy Agents doxycycline monohydrate 100 mg capsule 11-19 00:00: 00 11-29 23:59 :00 No [id number] URI 1 capsule TWICE DAILY 1 capsule TWICE DAILY (route: oral) Alternate Route: BY MOUTH. Med Classific ation: Anti-Infe ctive Agents Mounjaro 5 mg/0.5 mL subcutaneou s pen injector 11-19 00:00: 00 Yes [id number] DIABETES MELLITUS 5 mg WEEKLY 5 mg WEEKLY (route: subcutaneo us) Med Classific ation: Endocrine sevelamer HCl 800 mg tablet 12-27 00:00: 00 Yes [id number] HIGH PHOSPHORUS LEVELS 2 tablet 3 TIMES DAILY 2 tablet 3 TIMES DAILY (route: oral) Med Classific ation: Genitouri nary Therapy Basaglar KwikPen U-100 Insulin 100 unit/mL (3 mL) subcutaneou s 01-17 00:00: 00 Yes [id number] DIABETES 40 unit AT BEDTIME 40 unit AT BEDTIME (route: subcutaneo us) Alternate Route: SUBCUTANE OUS. Med Classific ation: Endocrine insulin lispro (U-100) 100 unit/mL subcutaneou s pen 01-17 00:00: 00 Yes [id number] DIABETES 15 unit 3 TIMES DAILY 15 unit 3 TIMES DAILY (route: subcutaneo us) Med Classific ation: Endocrine Mounjaro 5 mg/0.5 mL subcutaneou s pen injector 11-19 00:00: 00 Yes [id number] DIABETES MELLITUS 5 mg WEEKLY 5 mg [...] Date Details Comments [facility]/CAREGIVER ON TYPE [...] LOW BLOOD SUGAR.] Future Scheduled Test HOME [facility] NURSE WILL INSTRUCT AND VERIFY APPROPRIATE [...] OF TIMES PER DAY.] Future Scheduled Test [facility] NURSE TO INSTRUCT ON CHRONIC KIDNEY DISEASE ITS COMPLICATIONS, AND WHEN TO CONTACT THE AGENCY, PHYSICIAN OR 911 [code = HOME HEALTH NURSE TO INSTRUCT ON CHRONIC KIDNEY DISEASE ITS COMPLICATIONS, AND WHEN TO CONTACT THE AGENCY, PHYSICIAN OR 911] Future Scheduled Test [facility] TIFYING PHYSICIAN, ASSOCIATED PHYSICIAN, NPP OR PA [...] WILL BE ESTABLISHED THAT MEETS ALL PATIENT'S ASSISTED NEEDS AND COUNTER SIGNED BY PHYSICIAN. Goal [...] End Date/Time Encounter Type Admission Type Attending [facility] Care Department Encounter ID Discharge Date Discharge Status Discharge Condition Discharge Reason Percent Goals Met 2025-01-17 00:00:00 2025-03-17 00:00:00 Outpatient RECERTIFIC ATION JESSIE MENJIVAR [facility] [id number] 45.45
== END 2025-02-27 21:34 | disposition short-term general hospital (02) ==
PROVIDERS: Emergency Provider Emergency Medicine; PCP Family Medicine
DX: I48.91 Unspecified atrial fibrillation (principal); R79.89 Other specified abnormal findings of blood chemistry; E11.22 Type 2 diabetes mellitus with diabetic chronic kidney disease; I12.0 Hypertensive chronic kidney disease with stage 5 chronic kidney disease or end stage renal disease; N18.6 End stage renal disease; Z79.01 Long term (current) use of anticoagulants; Z79.899 Other long term (current) drug therapy
CPT/HCPCS: 36415; 71045; 80053; 84484; 85025; 85380; 93005; 96365; 96366; 99285; J0282

== ENCOUNTER 2025-04-20 09:37 | Outpatient (NON) | payer MEDICARE, MEDICAID, SELFPAY ==
[2025-04-20 09:52] LABS: Hematocrit 38.6 % (40.0-54.0); Hemoglobin 12.3 g/dL (14.0-18.0); Immature Granulocyte Percent A 0.8 % (0.0-0.0); Lymphocytes Absolute Auto 1.55 K/mm3 (1.10-4.50); Mean Corpuscular HGB Conc 31.9 g/dL (32-36); Mean Corpuscular Hemoglobin 33.4 pg (27.0-31.0); Mean Corpuscular Volume 104.9 fL (78.0-102.0); Nucleated Red Blood Cells Absolute Auto 0.00 K/mm3 (0.00-0.00); Nucleated Red Blood Cells Perc 0.0 % (0-0.0); Platelet Count Result 228 K/mm3 (150-420); Red Blood Count 3.68 M/mm3 (4.70-6.10); White Blood Count 6.5 K/mm3 (4.8-10.8)
[2025-04-20 10:16] LABS: Alanine Aminotransferase 14 U/L (6-50); Albumin Level 4.8 g/dL (3.5-5.1); Alkaline Phosphatase 61 U/L (38-126); Anion Gap 14 mmol/L (4-12); Aspartate Amino Transferase 19 U/L (17-59); Bilirubin,Total 1.5 mg/dL (0.2-1.3); Blood Urea Nitrogen 28 mg/dL (9-20); Calcium 10.7 mg/dL (8.4-10.2); Carbon Dioxide 31 mmol/L (22-30); Chloride 96 mmol/L (98-107); Cholesterol 126 mg/dL (0-200); Estimated Glomerular Filt Rate 7; Glucose 246 mg/dL (65-110); HDL Direct 34 mg/dL; Osmolality Calculated 305 mOsm/kg (285-295); Potassium 3.8 mmol/L (3.4-5.0); Sodium 141 mmol/L (137-145); Total Protein 8.8 g/dL (6.3-8.2); Triglycerides 141 mg/dL (<150)
[2025-04-20 10:39] LABS: Hemoglobin A1C 7.7 % (<5.7)
--- OUTSIDE RECORDS SUMMARY | 2025-04-20 18:05 | XMS_ITS | Patient Health Record ---
Author Organization [facility] Felicia logan Billing Info Address [address] [place] [address] [place] [address] Care Team Providers Care Pay Station Collector Name Role Phone [facility] Primary Care Provider Unavailable Allergies Allergen (clinical [...] Problem Status W/U Status Risk Notes Problem 736939206 Persistent atria l fibrillation (I48.1) Active confirmed Problem 578015138 Chronic atrial fibrillation (I48.2) Active confirmed Problem Chronic diastolic heart failure (461938190) Chronic diastolic (congestive) heart failure (I50.32) Active confirmed Problem 886606044 Erectile dysfunction due to diseases classified elsewhere (N52.1) Active confirmed Problem 479723600 Permanent atrial fibrillation (I48.21) Active confirmed Problem 30495277 Essential hypertension (I10) Active confirmed Problem 16062165 ADRYAN (obstructive sleep apnea) (G47.33) Active confirmed Problem 46536271 JOHANSEN (dyspnea on exertion) (R06.09) Active confirmed Problem 621151005 Obesity (BMI 30-39.9) (E66.9) Active confirmed Problem 782278573 Paroxysmal a-fib (I48.0) Active confirmed Problem 438477028 BMI 37.0-37.9, adult (Z68.37) Active confirmed Problem 247866297 Acute renal insufficiency (N28.9) Active confirmed Problem 8240525547372 CAD in platinum artery (I25.10) Active confirmed Problem 690404901 nursing home curren t use of insulin (Z79.4) Active confirmed Problem [id number] Coronary artery disease involving platinum coronary artery of platinum heart without angina pectoris (I25.10) Active confirmed Problem 55695666 Anemia of unknow n etiology (D64.9) Active confirmed Problem 05476129 Hyperlipidemia, unspecified hyperlipidemia type (E78.5) Active confirmed Problem Chronic diastolic heart failure (164819046) Chronic diastolic congestive heart failure (I50.32) Active confirmed Problem 485999722 Edema, unspecified type (R60.9) Active confirmed Problem 42992834 Type 2 diabetes mellitus with complication, with long-term current use of insulin (E11.8) Active confirmed Plan Of Treatment Pending Test Test Name Order Date CARDIOVERSION (35737) CV* 12/31/2021 EPS - ABLATION, A-FIB (54051, 90553) CV* 12/31/2021 IMPLANT - LOOP RECORDER (35241) CV* 12/13 DOMI (84512) CV* 12/31/2021 DOMI (44352) CV* 01/02/2022 Insurance Providers Payer Name Payer Address Payer Phone Subscriber Number Group Number Insured Name Patient Relationship to Insured Coverage Start Date Coverage End Date [facility] [address] ATTN CLAIMS [place], [place] [id number] Aaron Campos Self - patient is the insured 2 Medical (General) History Medical History History ICD Code Chronic atrial fibrillation I48.2 Essential hypertension I10 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
--- OUTSIDE RECORDS SUMMARY | 2025-04-20 18:08 | XMS_ITS | Clinical Summary ---
Author Organization [facility] Address [address] [place] [address] Care Team Providers Care Toll Test Worker Name Role Phone Mery Maxwell MD Primary Care Provider [phone] Rohit Butcher MD Unavailable [phone] Allergies Active Allergy Reactions Criticality Noted Date [...] meals. 3 Active traMADol (ULTRAM) 50 MG tabletIndicatio ns:Acute Pain < 7 Day Supply Indications: Acute [...] 90 tablet 3 5 11/15/19 26 Active lidocaine-prilo rl (EMLA) cream Apply topically as needed. Active esomeprazole (NEXIUM) 20 MG capsule Take 1 capsule (20 mg total) by mouth every morning before breakfast. Active midodrine (PROAMATINE) 5 MG tablet Take 1 tablet (5 mg total) by mouth as needed. Active calcitriol (ROCALTROL) 0.5 MCG capsule Take 1 capsule (0.5 mcg total) by mouth daily. Active hydrALAZINE (APRESOLINE) 50 MG tablet Take 1 tablet (50 mg total) by mouth 3 (three) times daily. 84 tablet 6 5 Active hydrALAZINE (APRESOLINE) 25 MG tablet Take 1 tablet (25 mg total) by mouth 2 (two) times a day. 60 tablet 5 5 04/12/20 Discontinu ed(Reorder ) Active Problems Problem Noted Date Diagnosed Date Hyperlipidemia, mixed 01/17/2025 Essential (primary) hypertension 11/14/2024 End stage renal disease (N18.6) 11/14/2024 Hemoptysis 03/28/2024 Hypotension 12/31/2023 Postural dizziness with presyncope 12/31/2023 Hypokalemia 09/01/2023 EKG, abnormal 09/01/2023 Encounters Date Type Department Care Team Description 04/[facility]2025 [facility] [address] [place] [address] Rohit Butcher MD Information 04/03/2025 [facility] [address] [place] [address] Rohit Butcher MD Results (ABPM) 03/16/2025 [facility] [address] [place] [address] Rohit Butcher MD Surgical Clearance 03/16/2025 Travel 03/09/2025 [facility] [address] [place] [address] Rohit Butcher MD Holter Monitor 01/24/2025 [facility] [address] [place] [address] Rohit Butcher MD Surgical Clearance 01/19/2025 [facility] [address] [place] [address] Rohit Butcher MD Blood Pressure (11/14/24 - 01/13/25 BP Log ) 01/18/2025 Results Follow-Up [facility] [place] [address] Mirela Mosley MA LIPID PANEL from Last 3 Months Family History Medical [...] = 0.6 oz pur e alcohol) [facility] Utilities Answer Date Recorded In the past 12 months has th e [employer], [employer], oil, or water [employer] threatened to shut off services in your [...] senior living (including now)? Patient declined 09/01/2023 Housing Stability [...] any time in the past 12 m [facility], were you homeless or living in a senior living (including now)? No 03/28/2024 Sex and Gender Information Value Date Recorded Sex Assigned at Male 07/22/2024 12:34 PM REED OR WIND INSTRUMENT REPAIRER Legal Sex Male 6:24 PM CDT Gender Identity Not on file Sexual Orientation Not on file Last Filed Vital Signs Vital Sign Reading Time Taken Comments Blood Pressure 134/82 01/17/2025 11:03 AM CDT Pulse 89 01/17/2025 11:03 AM CDT Temperature 37.1 C (98.7 F) 05/28/2024 12:32 AM REED OR WIND INSTRUMENT REPAIRER Respiratory Rate 18 01/17/2025 11:03 AM CDT Oxygen Saturation 97% 01/17/2025 11:03 AM CDT Inhaled Oxygen Concentration - - Weight 127 kg (280 lb) 01/17/2025 11:03 AM CDT Height 188 cm (6' 2) 01/17/2025 11:03 AM CDT Body Mass Index 35.95 01/17/2025 11:03 AM CDT Plan of Treatment Upcoming Encounters Date Type Department Care Team (Late st Contact Info) Description 05/04/2025 1:30 PM REED OR WIND INSTRUMENT REPAIRER Office Visit [facility] eld [address] [place] [address] Ariana Walsh, DITCH DIGGER, AUDIO VISUAL COLLECTIONS COORDINATOR-C [address] [facility] [address] [place] [address] Health Maintenance Due Date Last Done Comments Annual Physical 12/13/1975 Hepatitis C 1990 Hepatitis B Vaccines (2 of 5 - Risk Dialysis 4-dose series) 12/01/2019 11/03/2019 Zoster Vaccines (1 of 2) 2022 Pneumococcal Vaccine: 50+ Years (3 of 3 - PCV20 or PCV21) 03/24/2024 03/24/2019, 05/04/2018 COVID-19 Vaccine (1 - season) 2025 Influenza Adult (#1) 2025 02/21/2020, 04/15/2019, 03/24/2019, Additional history exists Colorectal Cancer Screening FIT/FOBT (1 Year) 03/28/2025 03/28/2024 DTaP, Tdap and Td Vaccines (4 - Td or Tdap) 10/20/2031 10/19/2021, 05/04/2018, 06/15/2017, Additional history exists Hepatitis A Vaccines Aged Out No long er eligible based on patient's age to complete this topic Meningococcal B Vaccine Aged Out No l [...] and discharge planning Lifestyle No Zakiya Rocha computer programmer chief Procedure Name Priority Date/Time Associated Diagnosis Comments AMBULATORY BP MONITOR Routine 03/22/2025 Essential (primary) hypertension OCCULT BLOOD, FECES STAT 03/28/2024 1 2:10 PM CDT from Last 3 Months or Most Recently Relevant to Health Maintenance Results * Ambulatory BP Monitor (03/22/2025) Narrative Rohit Butcher MD - 03/22/2025 Indications hypertension study duration 24 hours start date March 16, 2025 Overall 53 measurements were made with 100% success rate, average blood pressure was 152/91 mmHg with a standard deviation of 21/11.6 mmHg. Pulse pressure was 61.3 mmHg. Maximum systolic blood pressure was 205 mmHg with a minimum of Maira 6 mmHg. Maximum diastolic blood pressure was 112 mmHg with a minimum of 47 mmHg. Average heart rate was 83 bpm with a maximum of 95 and a minimum of 70 bpm. Average manage blood pressure was 170.8/106.5 mmHg [not a dipper Overall, 29% of the time in the systolic blood pressure was normal,] 60% acceptable, 49% of the diastolic blood pressure is normal with 51% acceptable. Review of the log shows that blood pressure is severely elevated during the late morning/early afternoon. Impression Poorly controlled blood pressure Recommendations Increase hydralazine Rohit Butcher MD HOLTER Final Result * OCCULT BLOOD, FECES (03/28/2024 12:10 PM CDT) OCCULT BLOOD FECAL NEGATIVE NEGATIVE 03/28/2024 12:19 PM CDT [facility] STOOL SPECIMEN / Unknown 03/28/2024 12:10 PM CDT us Kelly Londono MD BODY FLUIDS AND STOOLS ORDER KRIS Final Result [facility] [address] [place] [place] [id number], from Last 3 Months or Most Recently [...] 10:23 PM 09/04/2023 8:48 PM Care Teams Toll Test Worker Relationship Specialty Start Date End Date Mery Maxwell MD [address] [place] [phone] PCP - General FAMILY PRACTICE 08/19/23 Rohit Butcher MD [address] [facility] [address] [place] [address] Physician INTERVENTIONAL CARDIOLOGY 11/08/24
--- OUTSIDE RECORDS SUMMARY | 2025-04-20 18:08 | XMS_ITS | Encounter Summary ---
Author Organization [facility] Address [address] [place] [address] Care Team Providers Care Wood Machine Carver Name Role Phone Mery Maxwell MD Primary Care Provider [phone] Rohit Butcher MD Unavailable [phone] Reason for Visit * Reason Onset Date Comments Information 04/13/2025 Encounter Details Date Type Department Care Team ([facility] Contact Info) Description 04/13/2025 Telephone [facility] [address] [place] [address] Rohit Butcher MD [address] [facility] [address] [place] [address] Information Social History Tobacco Use Types Packs/Day Years Used Date Smoking Tobacco: Former Cigarettes 1 15 Smokeless Tobacco: Never Alcohol Use Standard Drinks/Week Comments Not Currently 0 (1 standard drink = 0.6 oz pur e alcohol) [facility] Utilities Answer Date Recorded In the past 12 months has e [employer], gas, oil, or water [employer] threatened to shut off services in your [...] a half-way (including now)? Patient declined 09/01/2023 Housing Stability [...] any time in the past 12 m [facility], were you homeless or living in a half-way (including now)? No 03/28/2024 Sex and Gender Information Value Date Recorded Sex Assigned at Male 07/22/2024 12:34 PM PRACTICE DIRECTOR Legal Sex Male 6:24 PM CDT Gender Identity Not on file Sexual Orientation Not on file documented as of this encounter Functional Status * Are you deaf or do you have serious difficulty hearing Answer Date of Assessment Author Status No 03/28/2024 5:25 PM Christina Avila RN Active * Are you blind or [...] Avila RN Active documented in this encounter Progress Notes * Reina Laboy - 04/19/2025 11:34 AM CST Left a vm for the facility to call back so I could verify that the pt did attend the 03/16/25 appt. TICE DIRECTOR * Reina Laboy - 04/14/2025 2:39 PM CDT I have called the insurance company. The person that I need to talk to is on a call. She took my number and will have them call back. * Reina Laboy - 04/13/2025 11:49 AM CDT Pt called to ask if we could call his insurance to make them aware that the pt did in fact come to an appt on 03/16/25. PH: [phone] documented in this encounter Plan of Treatment Upcoming Encounters Date Type Department Care Team (Late st Contact Info) Description 05/04/2025 1:30 PM PRACTICE DIRECTOR Office Visit [facility] eld [address] [place] [address] Ariana Walsh, STORE MANAGEMENT TRAINEE, MIND READER-C [address] [facility] [address] [phone] documented as of this encounter Goals Goal Patient Goal Type Associated Problems Recent Progress Patient-Stated? 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, RN documented as of this encounter Visit Diagnoses Not on filedocumented in this encounter Care Teams Wood Machine Carver Relationship Specialty Start Date End Date Mery Maxwell MD [address] [place] [phone] PCP - General FAMILY PRACTICE 08/19/23 Rohit Butcher MD [address] [facility] [address] [address] Physician INTERVENTIONAL CARDIOLOGY 11/08/24 documented as of this encounter
--- OUTSIDE RECORDS SUMMARY | 2025-05-15 18:00 | XMS_ITS | Clinical Summary ---
Author Organization Unknown Care Team Providers Care Surgical Clinical Reviewer Name Role Phone JERMAN ANN, RIMA Unavailable Unavailable EDEN PHYSICAL THERAPIST, MICHELE Unavailabl e Unavailable FALK SURFACE GRINDER, KATELYN Unavail able Unavailable [place] REGISTERED NURSE TIGHT ROPE WALKER, KESHAWN lovell Unavailable Payers Payer Name Policy Type Policy Number Effective Date Expira tion Date MEDICARE [place] - EPISODIC [id number] Problems Condition Name Condition Details Condition Category Status Onset Date Resolution Date Last Treatment Date Treating Clinician Comments PAROXYSMAL ATRIAL FIBRILLATION Active 06-15 00:00: 00 TYPE 2 DIABETES MELLITUS W DIABETIC CHRONIC KIDNEY DISEASE Active 09-22 00:00: 00 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 Active 06-15 00:00: 00 ACUTE ON CHRONIC DIASTOLIC (CONGESTIVE) HEART FAILURE Active 06-15 00:00: 00 END STAGE RENAL DISEASE Active 09-22 00:00: 00 ANEMIA IN CHRONIC KIDNEY DISEASE Active 06-15 00:00: 00 DEPENDENCE ON RENAL DIALYSIS Active 06-15 00:00: 00 TYPE 2 DIABETES MELLITUS WITH DIABETIC POLYNEUROPAT HY Active 06-15 00:00: 00 ORTHOSTATIC HYPOTENSION Active 06-15 00:00: 00 ATHSCL HEART DISEASE OF [place] CORONARY ARTERY W/O ANG PCTRS Active 06-15 00:00: 00 GOUT, UNSPECIFIED Active 06-15 00:00: 00 SECONDARY HYPERPARATHY ROIDISM OF RENAL ORIGIN Active - 00:00: 00 MIXED HYPERLIPIDEM IA Active 06-15 00:00: 00 OTHER DISORDERS OF PHOSPHORUS METABOLISM Active 06-15 00:00: 00 OBSTRUCTIVE SLEEP APNEA (ADULT) (PEDIATRIC) Active 06-15 00:00: 00 ASSISTED (CURRENT) USE OF INSULIN Active 06-15 00:00: 00 DATA CENTER CONSULTANT (CURRENT) USE OF ANTICOAGULAN TS Active 06-15 00:00: 00 LNG TRM (CRNT) USE INJECTABLE NON-INSULIN ANTIDIABETIC DRUGS Active 06-15 00:00: 00 PERSONAL HISTORY OF NICOTINE DEPENDENCE Active 06-15 00:00: 00 Allergies, Adverse Reactions, Alerts Allergy Name Allergy Type Status Severity Reaction(s) Onset Date Inactive Date Treating Clinician Comments AMOXICILLIN Propensity to adverse reactions Active 09-23 08:50: 58 Medications Ordered Medication Name Filled Medication Name Start Date Stop Date Current Medication? Ordering Clinician Indication Dosage Frequency Signature (SIG) Comments Components allopurinol 100 mg tablet 09-24 00:00: 00 Yes [id number] HYPERPHOSPH ATEMIA 1 tablet TWICE DAILY 1 tablet TWICE DAILY (route: oral) Med Classific ation: Gout and Hyperuric emia Therapy amiodarone 200 mg tablet 09-24 00:00: 00 Yes [id number] AFIB 1 tablet ONCE DAILY 1 tablet ONCE DAILY (route: oral) Med Classific ation: Cardiovas cular Therapy Agents atorvastati n 20 mg tablet 09-24 00:00: 00 Yes [id number] HIGH CHOLESTEROL 1 tablet ONCE DAILY 1 tablet ONCE DAILY (route: oral) Med Classific ation: Cardiovas cular Therapy Agents calcitriol 0.25 mcg capsule 09-24 00:00: 00 Yes [id number] SUPPLEMENT 1 capsule DIRECTED 1 capsule DIRECTED (route: oral) Med Classific ation: Electroly te Balance-N utritiona l Products carvedilol 12.5 mg tablet 09-24 00:00: 00 12-08 23:59 :00 No [id number] HYPERTENSIO N 1 tablet TWICE DAILY 1 tablet TWICE DAILY (route: oral) Med Classific ation: Cardiovas cular Therapy Agents Eliquis 5 mg tablet 09-24 00:00: 00 Yes [id number] AFIB 1 tablet TWICE DAILY 1 tablet TWICE DAILY (route: oral) Med Classific ation: Hematolog ical Agents fluticasone propionate 50 mcg/actuati on blister powder for inhalation 09-24 00:00: 00 Yes [id number] ALLERGIES 1 inhalat ion TWICE DAILY 1 inhalation TWICE DAILY (route: inhalation ) Med Classific ation: Respirato ry Therapy Agents gabapentin 100 mg capsule 09-24 00:00: 00 11-17 23:59 :00 No [id number] NERVE PAIN 1 capsule TWICE DAILY 1 capsule TWICE DAILY (route: oral) Med Classific ation: Central Nervous System Agents insulin lispro (U-100) 100 unit/mL subcutaneou s pen 09-24 00:00: 00 04-11 23:59 :00 No [id number] TYPE TWO DIABETES 8 unit 3 TIMES DAILY 8 unit 3 TIMES DAILY (route: subcutaneo us) Alternate Route: SUBCUTANE OUS. Med Classific ation: Endocrine lactulose 10 gram/15 mL (15 mL) oral solution 09-24 00:00: 00 03-04 23:59 :00 No [id number] CONSTIPATIO N 30 mL TWICE DAILY 30 mL TWICE DAILY (route: oral) Med Classific ation: Gastroint estinal Therapy Agents Lantus Solostar U-100 Insulin 100 unit/mL (3 mL) subcutaneou s pen 09-24 00:00: 00 03-02 23:59 :00 No [id number] TYPE 2 DIABETES 10 unit AT BEDTIME 10 unit AT BEDTIME (route: subcutaneo us) Alternate Route: SUBCUTANE OUS. Med Classific ation: Endocrine midodrine 10 mg tablet 09-24 00:00: 00 03-04 23:59 :00 No [id number] REGULATE BLOOD PRESSURE 1 tablet 3 TIMES DAILY 1 tablet 3 TIMES DAILY (route: oral) Med Classific ation: Cardiovas cular Therapy Agents nystatin 100,000 unit/gram topical powder 09-24 00:00: 00 Yes [id number] MOISTURE TO SKIN FOLDS OF GROIN 1 gram TWICE DAILY 1 gram TWICE DAILY (route: topical) Med Classific ation: Dermatolo gical Protonix 40 mg tablet,ada yed release 09-24 00:00: 00 Yes [id number] REFLUX 1 tablet TWICE DAILY 1 tablet TWICE DAILY (route: oral) Med Classific ation: Gastroint estinal Therapy Agents Proventil HFA 90 mcg/actuati on aerosol inhaler 09-24 00:00: 00 Yes [id number] COUGH 1 puff EVERY 6 HOURS 1 puff EVERY 6 HOURS (route: inhalation ) Med Classific ation: Respirato ry Therapy Agents tramadol 50 mg tablet 09-24 00:00: 00 Yes [id number] PAIN 2 tablet EVERY 6 HOURS PRN 2 tablet EVERY 6 HOURS PRN (route: oral) Med Classific ation: Analgesic , Anti-infl ammatory or Antipyret ic Tylenol 325 mg tablet 09-24 00:00: 00 Yes [id number] PAIN 2 tablet EVERY 6 HOURS 2 tablet EVERY 6 HOURS (route: oral) Med Classific ation: Analgesic , Anti-infl ammatory or Antipyret ic carvedilol 25 mg tablet - 00:00: 00 02-26 23:59 :00 No [id number] HYPERTENSIO N 1 tablet TWICE DAILY 1 tablet TWICE DAILY (route: oral) Med Classific ation: Cardiovas cular Therapy Agents sevelamer carbonate 800 mg tablet 02-08 00:00: 00 01-16 23:59 :00 No [id number] ESRD 1 tablet 3 TIMES DAILY 1 tablet 3 TIMES DAILY (route: oral) Alternate Route: BY MOUTH. Med Classific ation: Genitouri nary Therapy Lantus Solostar U-100 Insulin 100 unit/mL (3 mL) subcutaneou s pen 03-02 00:00: 00 03-04 23:59 :00 No [id number] T2D 12 unit AT BEDTIME 12 unit AT BEDTIME (route: subcrustneo ) Med Classific ation: Endocrine Basaglar KwikPen U-100 Insulin 100 unit/mL (3 mL) subcutaneou s 03-04 00:00: 00 05-02 23:59 :00 No [id number] DIABETES MELLITUS TYPE TWO 18 unit AT BEDTIME 18 unit AT BEDTIME (route: subcutaneo us) Alternate Route: SUBCUTANE OUS. Med Classific ation: Endocrine benzonatate 200 mg capsule 2023-06 0-17 00:00: 00 04-05 23:59 :00 No [id number] COUGH 1 capsule 3 TIMES DAILY 1 capsule 3 TIMES DAILY (route: oral) Med Classific ation: Respirato ry Therapy Agents doxycycline hyclate 100 mg capsule 2023-06 0-17 00:00: 00 04-05 23:59 :00 No [id number] INFECTION PREVENTION 1 capsule TWICE DAILY 1 capsule TWICE DAILY (route: oral) Med Classific ation: Anti-Infe ctive Agents insulin lispro (U-100) 100 unit/mL subcutaneou s pen 2023-06 0-28 00:00: 00 05-02 23:59 :00 No [id number] DIABETES MELLITUS 10 unit 3 TIMES DAILY 10 unit 3 TIMES DAILY (route: subcutaneo us) Med Classific ation: Endocrine Basaglar KwikPen U-100 Insulin 100 unit/mL (3 mL) subcutane s 2023-0618 00:00: 00 09-13 23:59 :00 No [id number] DIABETES MELLITUS 24 unit AT BEDTIME 24 unit AT BEDTIME (route: subcutaneo us) Med Classific ation: Endocrine insulin lispro (U-100) 100 unit/mL subcutaneou s pen 2023-0618 00:00: 00 01-16 23:59 :00 No [id number] DIABETES MELLITUS 12 unit 3 TIMES DAILY 12 unit 3 TIMES DAILY (route: subcutaneo us) Med Classific ation: Endocrine carvedilol 25 mg tablet 2023-06 2-13 00:00: 00 11-17 23:59 :00 No [id number] HYPERTENSIO N Per instruc tions DIRECTED Per instructio ns DIRECTED (route: oral) Med Classific ation: Cardiovas cular Therapy Agents bumetanide 1 mg tablet 3-17 00:00: 00 12-01 23:59 :00 No [id number] FLUID OVERLOAD 1 tablet ONCE DAILY 1 tablet ONCE DAILY (route: oral) Alternate Route: BY MOUTH. Med Classific ation: Cardiovas cular Therapy Agents Nexium 24HR 20 mg capsule,del ayed release 3-17 00:00: 00 03-04 23:59 :00 No [id number] GERD 1 capsule ONCE DAILY 1 capsule ONCE DAILY (route: oral) Alternate Route: BY MOUTH. Med Classific ation: Gastroint estinal Therapy Agents Basaglar KwikPen U-100 Insulin 100 unit/mL (3 mL) subcutaneou s 10-11 00:00: 00 01-16 23:59 :00 No [id number] HYPERGLYCEM IA 30 unit AT BEDTIME 30 unit AT BEDTIME (route: subcutaneo us) Alternate Route: SUBCUTANE OUS. Med Classific ation: Endocrine bumetanide 1 mg tablet 10-11 00:00: 00 Yes [id number] FLUID OVERLOAD 1 tablet ONCE DAILY 1 tablet ONCE DAILY (route: oral) Alternate Route: BY MOUTH. Med Classific ation: Cardiovas cular Therapy Agents hydralazine 100 mg tablet 10-11 00:00: 00 03-04 23:59 :00 No [id number] IF SYSTOLIC BP ABOVE 180 1 tablet ONCE DAILY 1 tablet ONCE DAILY (route: oral) Alternate Route: BY MOUTH. Med Classific ation: Cardiovas cular Therapy Agents amlodipine 10 mg tablet 11-04 00:00: 00 12-01 23:59 :00 No [id number] HYPERTENSIO N 1 tablet ONCE DAILY 1 tablet ONCE DAILY (route: oral) Med Classific ation: Cardiovas cular Therapy Agents carvedilol 6.25 mg tablet 11-14 00:00: 00 03-04 23:59 :00 No [id number] HYPERTENSIO N 0.5 tablet DIRECTED 0.5 tablet DIRECTED (route: oral) Med Classific ation: Cardiovas cular Therapy Agents gabapentin 100 mg capsule 05 00:00: 00 Yes [id number] NERVE PAIN 2 capsule TWICE DAILY 2 capsule TWICE DAILY (route: oral) Med Classific ation: Central Nervous System Agents amlodipine 10 mg tablet 11-16 00:00: 00 Yes [id number] HYPERTENSIO N 0.5 tablet 3 TIMES DAILY 0.5 tablet 3 TIMES DAILY (route: oral) Med Classific ation: Cardiovas cular Therapy Agents doxycycline monohydrate 100 mg capsule 607 00:00: 00 11-29 23:59 :00 No [id number] URI 1 capsule TWICE DAILY 1 capsule TWICE DAILY (route: oral) Alternate Route: BY MOUTH. Med Classific ation: Anti-Infe ctive Agents Mounjaro 5 mg/0.5 mL subcutaneou s pen injector 07 00:00: 00 03-14 23:59 :00 No [id number] DIABETES MELLITUS 5 mg WEEKLY 5 mg WEEKLY (route: subcutaneo us) Med Classific ation: Endocrine sevelamer HCl 800 mg tablet 7-15 00:00: 00 Yes [id number] HIGH PHOSPHORUS LEVELS 2 tablet 3 TIMES DAILY 2 tablet 3 TIMES DAILY (route: oral) Med Classific ation: Genitouri nary Therapy Basaglar KwikPen U-100 Insulin 100 unit/mL (3 mL) subcutaneou s 8-05 00:00: 00 Yes [id number] DIABETES 40 unit AT BEDTIME 40 unit AT BEDTIME (route: subcutaneo us) Alternate Route: SUBCUTANE OUS. Med Classific ation: Endocrine insulin lispro (U-100) 100 unit/mL subcutaneou s pen 8-05 00:00: 00 03-04 23:59 :00 No [id number] DIABETES 15 unit 3 TIMES DAILY 15 unit 3 TIMES DAILY (route: subcutaneo us) Med Classific ation: Endocrine Mounjaro 5 mg/0.5 mL subcutaneou s pen injector 6-07 00:00: 00 03-04 23:59 :00 No [id number] DIABETES MELLITUS 5 mg WEEKLY 5 mg WEEKLY (route: subcutaneo us) Med Classific ation: Endocrine carvedilol 12.5 mg tablet 9-20 00:00: 00 Yes [id number] CHF 1 tablet TWICE DAILY 1 tablet TWICE DAILY (route: oral) Med Classific ation: Cardiovas cular Therapy Agents Novolog FlexPen U-100 Insulin aspart 100 unit/mL (3 mL) subcutaneou s 9- 00:00: 00 Yes [id number] T2D 10 unit 3 TIMES DAILY 10 unit 3 TIMES DAILY (route: subcrustneo us) Med Classific ation: Endocrine Mounjaro 10 mg/0.5 mL subcutaneou s pen injector 2024-06 0-04 00:00: 00 Yes [id number] DM 10 mg WEEKLY 10 mg WEEKLY (route: subcutaneo us) Med Classific ation: Endocrine Immunizations Ordered Immunization Name Filled Immunization Name Date Status Comments Refusal Reason INFLUENZA NOT GIVEN - NOT FLU SEASON, TIV (INACTIVATED) 2023-09-25 00:00:00 PNEUMOCOCCAL DOES NOT MEET THE AGE/CONDITION GUIDELINES, PPV 2023-09-25 00:00:00 Vital Signs Vital Name Observation Time Observation Value Commen ts Temperature 2025-04-20 09:04:00.000 97.3 [degF] Temperature 2025-04-04 12:50:00.000 97.4 [degF] Temperature 2025-04-04 11:46:00.000 98.1 [degF] Temperature 2025-03-30 12:51:00.000 97.6 [degF] Temperature 2025-03-28 10:14:00.000 97.8 [degF] Temperature 2025-03-21 11:23:00.000 97 [degF] Pulse 2025-04-20 09:04:00.000 88 /min Pulse 2025-04-04 12:50:00.000 76 /min Pulse 2025-04-04 11:46:00.000 83 /min Pulse 2025-03-30 12:51:00.000 84 /min Pulse 2025-03-28 10:14:00.000 92 /min Pulse 2025-03-21 11:23:00.000 88 /min O2 Saturation (%) 2025-04-20 09:04:00.000 97 % O2 Saturation (%) 2025-04-04 12:50:00.000 96 % O2 Saturation (%) 2025-04-04 11:46:00.000 92 % O2 Saturation (%) 2025-03-30 12:51:00.000 97 % O2 Saturation (%) 2025-03-28 10:14:00.000 96 % O2 Saturation (%) 2025-03-21 11:23:00.000 98 % Pain 2025-04-20 09:04:00.000 3 Pain 2025-04-04 12:50:00.000 3 Pain 2025-04-04 11:46:00.000 3 Pain 2025-03-30 12:51:00.000 3 Pain 2025-03-28 10:14:00.000 4 Pain 2025-03-21 11:23:00.000 4 Respirations 2025-04-20 09:04:00.000 18 /min Respirations 2025-04-04 12:50:00.000 18 /min Respirations 2025-04-04 11:46:00.000 18 /min Respirations 2025-03-30 12:51:00.000 18 /min Respirations 2025-03-28 10:14:00.000 20 /min Respirations 2025-03-21 11:23:00.000 20 /min Weight (kgs) 2025-04-20 09:04:00.000 124.7 Weight (kgs) 2025-04-04 11:46:00.000 127.9 Systolic Blood Pressure 2025-04-20 09:04:00.000 138 mm [Hg] Systolic Blood Pressure 2025-04-04 12:50:00.000 138 mm [Hg] Systolic Blood Pressure 2025-04-04 11:46:00.000 140 mm [Hg] Systolic Blood Pressure 2025-03-30 12:51:00.000 138 mm [Hg] Systolic Blood Pressure 2025-03-28 10:14:00.000 152 mm [Hg] Systolic Blood Pressure 2025-03-21 11:23:00.000 150 mm [Hg] Diastolic Blood Pressure 2025-04-20 09:04:00.000 78 mm [Hg] Diastolic Blood Pressure 2025-04-04 12:50:00.000 86 mm [Hg] Diastolic Blood Pressure 2025-04-04 11:46:00.000 72 mm [Hg] Diastolic Blood Pressure 2025-03-30 12:51:00.000 86 mm [Hg] Diastolic Blood Pressure 2025-03-28 10:14:00.000 82 mm [Hg] Diastolic Blood Pressure 2025-03-21 11:23:00.000 80 mm [Hg] Plan of Treatment Planned Activity [...] AGENCY, PHYSICIAN OR 911.] Future Scheduled Test [facility] TIFYING PHYSICIAN, ASSOCIATED PHYSICIAN, NPP OR [...] IN THEIR ABSENCE.] Future Scheduled Test [facility] NURSE WILL INSTRUCT PATIENT/CAREGIVER ON TYPE 2 [...] LOW BLOOD SUGAR.] Future Scheduled Test [facility] NURSE WILL INSTRUCT AND VERIFY APPROPRIATE STEPS ON HOW THE PATIENT ADMINISTERS INSULIN INJECTIONS USING AN INJECTION PEN AND IMPORTANCE IN SITE SELECTION AND SYRINGE DISPOSAL. PATIENT/CAREGIVER OR HOME HEALTH RN WILL ADMINISTER INSULIN INJECTIONS USING AN INJECTION PEN PRESCRIBED BY THE PHYSICIAN. [code = HOME HEALTH NURSE WILL INSTRUCT AND VERIFY APPROPRIATE STEPS ON HOW THE PATIENT ADMINISTERS INSULIN INJECTIONS USING AN INJECTION PEN AND IMPORTANCE IN SITE SELECTION AND SYRINGE DISPOSAL. PATIENT/CAREGIVER OR HOME HEALTH RN WILL ADMINISTER INSULIN INJECTIONS USING AN INJECTION PEN PRESCRIBED BY THE PHYSICIAN.] Future Scheduled Test [facility] NURSE WILL ASSESS FOR COMPLICATIONS RELATED TO ANTICOAGULATION/ANTIPLATELET USE AND INSTRUCT PATIENT/CAREGIVER ABOUT PRECAUTIONS TO FOLLOW AND SIGNS/SYMPTOMS TO REPORT. [code = HOME HEALTH NURSE WILL ASSESS FOR COMPLICATIONS RELATED TO ANTICOAGULATION/ANTIPLATELET USE AND INSTRUCT PATIENT/CAREGIVER ABOUT PRECAUTIONS TO FOLLOW AND SIGNS/SYMPTOMS TO REPORT.] Future Scheduled Test [facility] NURSE TO INSTRUCT ON CHRONIC KIDNEY [...] TO THEIR MEDICAL PROVIDER.] Future Scheduled Test [facility] NURSE [...] WEIGHT GAIN, SHORTNESS OF BREATH, OR FATIGUE.] Goal 2023-11-20 Patient Goal - SOC 09/24- GET STRONGER Goal 2024-07-19 Patient Goal - S OC 09/24- GET STRONGER RECERT 11/20/2023: TO GET AROUND BETTER PHIL 01/04/24: STAY OUT OF HOSPITAL RECERT 01/18/2024: TO WALK AGAIN 03/02/24 PHIL: TO STAY OUT OF HOSPITAL RECERT 03/21/24: TO GET STRONGER RECERT 05/17/24: TO STAY OUT OF THE HOSPITAL Goal 2024-03-21 Patient Goal - S OC 09/24- GET STRONGER RECERT 11/20/2023: TO GET AROUND BETTER PHIL 01/04/24: STAY OUT OF HOSPITAL RECERT 01/18/2024: TO WALK AGAIN 03/02/24 PHIL: TO STAY OUT OF HOSPITAL Goal 2024-05-17 Patient [...] BS UNDER CONTROL RECERT 01/16/25: NO UPDATES PHIL 03/04/2025: TO STAY OUT OF THE HOSPITAL, HAVE NO ISSUES WITH DIALYSIS RECERT 03/14/25: TO STAY OUT OF THE HOSPITAL Goal 2025-03-04 Patient Goal - S OC 12- GET [...] HOSPITAL RECERT 09/15/24: TO GET STRONGER Goal 2024-09-15 Patient Goal - S OC 09/24- GET STRONGER RECERT 11/20/2023: TO GET AROUND BETTER PHIL 01/04/24: STAY OUT OF HOSPITAL RECERT 01/18/2024: TO WALK AGAIN 03/02/24 PHIL: TO STAY OUT OF HOSPITAL RECERT 03/21/24: TO GET STRONGER RECERT 05/17/24: TO STAY OUT OF THE HOSPITAL RECERT 07/19/24: STAY OUT OF HOSPITAL Goal 2024-01-18 Patient Goal - S OC 09/24- GET STRONGER RECERT 11/20/2023: TO GET AROUND BETTER PHIL 01/04/24: STAY OUT OF HOSPITAL Goal 2025-03-14 Patient Goal - S OC 09/24- GET [...] BS UNDER CONTROL RECERT 01/16/25: NO UPDATES PHIL 03/04/2025: TO STAY OUT OF THE HOSPITAL, HAVE NO ISSUES WITH DIALYSIS Goal Provider Goal - BY THE END OF HOME HEALTH SERVICES, PATIENT/CAREGIVER WILL DEMONSTRATE HOW TO TAKE THEIR OWN PULSE AND VERBALIZE WHAT WARNING SIGNS TO CALL THE PHYSICIAN OR 911 BY THE END OF HOME HEALTH SERVICES. Goal Provider Goal - A PLAN OF CARE WILL BE ESTABLISHED THAT MEETS ALL PATIENT'S MCC NEEDS AND COUNTER SIGNED BY PHYSICIAN. Goal [...] MANNER. Goal Provider Goal - PATIENT/CAREGIVER WILL VERBALIZE [...] PROPER TECHNIQUE WHEN ADMINISTERING INSULIN INJECTIONS USING AN INJECTION PEN. PATIENT/CAREGIVER WILL VERBALIZE UNDERSTANDING OF APPROPRIATE DISPOSAL OF SYRINGES BY THE END OF HOME HEALTH SERVICES. Goal Provider Goal - PATIENT/CAREGIVER WILL VERBALIZE UNDERSTANDING OF ANTICOAGULATION/ANTIPLATELET COMPLICATIONS TO REPORT AND PRECAUTIONS TO FOLLOW BY END OF HOME HEALTH SERVICES. Goal [...] IMBALANCE. Goal Provider Goal - PATIENT/CAREGIVER WILL DEMONSTRATE AND ADHERE TO WEIGHING DAILY WITH THE USE OF TRACKING LOG. PATIENT WILL VERBALIZE WAYS TO MONITOR FLUID OVERLOAD FROM OWN QUALITY OF SLEEP, EDEMA, TIGHT-FITTING CLOTHES, QUALITY OF BREATHING, AND CHANGES IN FEELING MORE TIRED OR WEEK BY THE END OF HOME HEALTH SERVICES. Encounters Start Date/Time End Date/Time Encounter Type Admission Type Attending [facility] Care Facility Care Department Encounter ID Discharge Date Discharge Status Discharge Condition Discharge Reason Percent Goals Met 2025-03-18 00:00:00 2025-05-16 00:00:00 Outpatient RECERTIFIC ATION KESHAWN EUCEDA [facility] [id number]
== END 2025-04-20 09:38 | disposition home or self-care (01) ==
LOC: CHSLAB 09:39
PROVIDERS: PCP Family Medicine; Visit Provider Family Medicine
DX: N18.6 End stage renal disease (principal); E11.9 Type 2 diabetes mellitus without complications; E78.5 Hyperlipidemia, unspecified
CPT/HCPCS: 36415; 80053; 80061; 83036; 83721; 85025